=== PATIENT | female | born 1940 | race Caucasian/White ===

== ENCOUNTER 2021-10-05 11:46 | Outpatient (CLI) | payer MEDICARE, OTHER, SELFPAY ==
[2021-10-05 14:45] LABS: Chloride* 102 mmol/L (96-114); Potassium* 4.1 mmol/L (3.6-5.1); Sodium* 133 mmol/L (135-149)
[2021-10-05 14:48] LABS: Blood Urea Nitrogen* 11 mg/dL (7-30); Carbon Dioxide* 27 mmol/L (20-32); Creatinine* 0.7 mg/dL (0.5-1.5); Estimated Glomerular Filt Rate 87.92
[2021-10-05 14:49] LABS: Calcium* 8.8 mg/dL (8.4-10.6); Glucose* 98 mg/dL (60-115)
== END 2021-10-05 11:47 | disposition home or self-care (01) ==
LOC: NFLDREF 11:47
PROVIDERS: PCP Internal Medicine; Visit Provider Internal Medicine
DX: E87.6 Hypokalemia (principal); I95.1 Orthostatic hypotension
CPT/HCPCS: 80048

== ENCOUNTER 2021-10-10 08:20 | Outpatient (CLI) | payer MEDICARE, OTHER, SELFPAY | END 2021-10-10 08:21 | disposition home or self-care (01) | LOC: AMB 10-16 22:04 | PROVIDERS: PCP Internal Medicine; Visit Provider Family Medicine | DX: I95.9 Hypotension, unspecified (principal); R53.1 Weakness | CPT/HCPCS: A0425; A0427 ==

== ENCOUNTER 2021-10-10 08:50 | Observation (INO) | payer MEDICARE, OTHER, SELFPAY ==
[2021-10-10] VITALS (10 sets, daily range): BP systolic 78–141; BP diastolic 49–89; PULSE 71–122; RESP 14–16; TEMP 36.7–36.9; O2SAT 94–98; BMI 17.5; BMI 16.9
--- NOTE | 2021-10-10 09:25 | CRLHL7_ITS ---
For Patients: As a result of the Cures Act, medical imaging exams and procedure reports are released immediately into your electronic medical record. You may view this report before your referring provider. If you have questions, please contact your health care provider. INDICATION: Shortness of breath TECHNIQUE: Chest 2 views COMPARISON: CT 09/01/2021 FINDINGS: Small pleural effusions are present. Mild left lower lobe parenchymal density. Lungs are hyperinflated. Indwelling catheter. No pneumothorax. Mediastinum unchanged. No fracture. IMPRESSION: Small effusions are now present with mild adjacent left lower lobe density likely representing infiltrate. Dictated by Figueroa Grant MD @ 10/10/2021 10:40:40 AM (Electronically Signed)
--- NOTE | 2021-10-10 09:25 | CRLHL7_ITS ---
For Patients: As a result of the Century Cures Act, medical imaging exams and procedure reports are released immediately into your electronic medical record. You may view this report before your referring provider. If you have questions, please contact your health care provider. INDICATION: FALL,HIT RT SIDE OF HEAD COMPARISON: none TECHNIQUE: A CT volumetric acquisition was performed of the brain without IV contrast. Please note that all CT scans at this facility use dose modulation, iterative reconstruction, and/or weight-based dosing when appropriate to reduce radiation dose to as low as reasonably achievable. FINDINGS: No intracranial hemorrhage, mass or mass effect. No hydrocephalus or midline shift. Calcification of the left basal ganglia. Mild chronic white matter changes. No fracture. Sinuses clear. IMPRESSION: No intracranial hemorrhage. Please note that all CT scans at this facility use dose modulation, iterative reconstruction, and/or weight-based dosing when appropriate to reduce radiation dose to as low as reasonably achievable. Dictated by Figueroa Grant MD @ 10/10/2021 10:33:57 AM (Electronically Signed)
--- NOTE | 2021-10-10 09:29 | ED_ITS ---
HPI - General Adult General Chief complaint: Hypotension Stated complaint: Syncope/Falls Time Seen by Provider: 10/10/21 09:03 History of Present Illness HPI narrative: Patient is a 81-year-old female coming in today after falling at home 5 times overnight. Patient states that she has a history of pancreatic cancer and is status post chemo and radiation currently on a break. States that for several weeks she has been battling orthostatic hypotension with significant dizziness upon standing. States that she was hospitalized at the [facility] at the beginning of September for about 5 days where nothing was found to be causing this. She was discharged home on salt tablets and Florinef. She has not had any improvement in her symptoms. Last night it was worse than usual. She states that she usually gets up 4-5 times a night to urinate and each time she got up she fell. She did hit her head 1 time. Before all this happened she states that she did vomit 1 time last evening. She denies any fevers or chills. No urinary symptoms or diarrhea. 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 He tells me that she has been lying on the couch and doing 0 physical activity for approximately 6 months. She currently denies headache, blurry vision or vomiting since falling. No confusion or neurologic deficits. Patient states that over the last year she has lost about 20-25 lb. However, in the last 2 weeks she has gained a couple of lb back as she has been drinking 2-3 ensure shakes per day. Related Data Home Medications Medication Instructions Recorded Confirmed calcitriol 0.25 mcg capsule 0.5 mcg PO DAILY 09/29/21 10/10/21 calcium 325 mg-vit D3 12.5 3 tab PO DAILY 09/29/21 10/10/21 mcg-zinc 2.75 [id number] tablet (Citracal-D3 Maximum Plus) levothyroxine 75 mcg tablet 75 mcg PO DAILY 09/29/21 10/10/21 loperamide 2 mg capsule 2 mg PO PRN 09/29/21 10/10/21 magnesium oxide 400 mg (241.3 mg 1,600 mg PO DAILY 09/29/21 10/10/21 magnesium) tablet nystatin 100,000 unit/mL oral 5 ml PO QID PRN 09/29/21 10/10/21 suspension pantoprazole 40 mg tablet,delayed 40 mg PO DAILY 09/29/21 10/10/21 release Previous Rx's Medication Instructions Recorded fludrocortisone 0.1 mg tablet 0.1 mg PO QDAY #90 tab 10/05/21 potassium chloride 20 mEq 20 meq PO BID #180 tab 10/05/21 tablet,extended release sodium chloride 1 gram tablet 1,000 mg PO TID #90 tab 10/05/21 Allergies Allergy/AdvReac Type Severity Reaction Status Date / Time No Known Drug Allergies Allergy Verified 10/05/21 11:00 Review of Systems Status of ROS: Reports: 10 or more systems reviewed and unremarkable except as noted in History and below [facility] Medical History Autoimmune hypoparathyroidism History of hypertension Pancreatic cancer 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 Alert and oriented. Answers questions appropriately. Mood and affect are appropriate. Thoughts are goal oriented and rational. No tangential or magical thinking noted. Patient speaks in full sentences without needing to catch their breath. HEENT: Normocephalic atraumatic. Pupils are equally round reactive to light. Extraocular muscles are intact. Conjunctivae are moist without any icterus noted, do appear pale. Moist mucous membranes. Teeth intact. Posterior pharynx is normal. Neck is soft without any lymphadenopathy or thyromegaly. No masses are appreciated. Cardiovascular: Heart is regular rate and rhythm S1 and S2 are present without any murmurs. Lungs: Clear to auscultation bilaterally no wheezes rhonchi or rales are appreciated. Patient takes deep breaths without any discomfort. Abdomen: Soft but taunt and mildly protuberant. She has mild diffuse tenderness. She does have normal bowel sounds. Extremities: Bilateral lower extremities are without edema. Normal DP and PT pulses. Skin: Well perfused without any obvious rashes. Const: Vital Signs, click to edit/add: Vital Signs - 24 hr 10/10/21 09:03 10/10/21 10:54 10/10/21 10:57 Temperature 98.4 F Pulse Rate [Left P ulse Oximeter] 122 H 93 Respiratory Rate 14 14 Blood Pressure [Le ft Upper Arm] 112/79 123/89 Blood Pressure [or thostatic lying Le ft Arm] 110/69 Blood Pressure [or thostatic sitting Left Arm] 85/61 L Blood Pressure [or thostatic standing Left Arm] 78/49 L Pulse Oximetry 94 94 10/10/21 11:30 10/10/21 12:00 10/10/21 13:00 Temperature Pulse Rate [Left P ulse Oximeter] 83 102 H 84 Respiratory Rate 14 14 14 Blood Pressure [Le ft Upper Arm] 130/73 141/83 H 127/72 Blood Pressure [or thostatic lying Le ft Arm] Blood Pressure [or thostatic sitting Left Arm] Blood Pressure [or thostatic standing Left Arm] Pulse Oximetry 95 95 98 Course Vital Signs Vital signs: Initial Vital Signs Temperature 98.4 F 10/10/21 09:03 Temperature Source Temporal Artery Scan 10/10/21 09:03 Pulse Rate 122 H 10/10/21 09:03 Respiratory Rate 14 10/10/21 09:03 Blood Pressure 112/79 10/10/21 09:03 Blood Pressure Mean 90 10/10/21 09:03 Blood Pressure Position Sitting 10/10/21 09:03 Pulse Oximetry 94 10/10/21 09:03 Oxygen Delivery Method 10/10/21 09:03 Vital Signs Temperature 98.4 F 10/10/21 09:03 Pulse Rate 122 H 10/10/21 09:03 Respiratory Rate 14 10/10/21 09:03 Blood Pressure 112/79 10/10/21 09:03 Pulse Oximetry 94 10/10/21 09:03 Temperature 98.4 F 10/10/21 09:03 Pulse Rate 84 10/10/21 13:00 Respiratory Rate 14 10/10/21 13:00 Blood Pressure 127/72 10/10/21 13:00 Pulse Oximetry 98 10/10/21 13:00 Medical Decision Making MDM Narrative Medical decision making narrative: 81-year-old female with pancreatic cancer and orthostatic hypotension coming in today after falling 5 times at home yesterday complaining of increasing fatigue, weakness and mild shortness of breath with exertion. Indeed very orthostatic with her systolic blood pressure dropping into the 70s up upon standing. She becomes acutely dizzy and has to sit down right away. Her workup did show that her LFTs doubled in amount in the last week unclear significance. Chest x-ray showed a potential infiltrate however chest CT did not show any evidence of pneumonia and no PE. At this time we discussed that going home would be very unsafe for her, therefore patient will be admitted for management. COVID PCR test came back positive however patient did have a COVID-19 back in June. Therefore we proceeded with an antigen test which was negative. Medical Records Medical records reviewed: Yes I reviewed the patient's medical records Lab Data Lab results reviewed: Yes I reviewed the patient's lab results Lab results narrative: TSH was not able to be completed today as the machine was down. Labs: Lab Results 10/10/21 10/10/21 10/10/21 Range/Units 10:00 10:00 10:00 WBC (4.50-11.00) K/uL RBC (4.00-5.20) m/uL Hgb (12.0-16.0) gm/dL Hct (33.0-51.0) % MCV (80-100) fL MCH (26-34) pg MCHC (32-36) gm/dL RDW Coeff of Andi (11.5-15.5) % Plt Count (140-440) K/uL Neut % (Auto) (42.0-72.0) % Lymph % (Auto) (20-44) % Millard % (Auto) (0.0-11.0) % Eos % (Auto) (0.0-7.0) % Baso % (Auto) (0.0-3.0) % Neut # (Auto) (1.7-7.0) K/uL Lymph # (Auto) (0.90-2.90) K/uL Millard # (Auto) (0.00-0.90) K/UL Eos # (Auto) (0.00-0.50) K/uL Baso # (Auto) (0.00-0.30) K/uL Abs Immat Gran (auto) (0.00-0.30) K/uL ESR 44 H (2-20) mm/hr D-Dimer Quant (PE/DVT) 1.64 H (0.00-0.50) ug/ml Sodium 133 L (135-149) mmol/L Potassium 3.3 L (3.6-5.1) mmol/L Chloride 103 (96-114) mmol/L Carbon Dioxide 28 (20-32) mmol/L BUN 12 (7-30) mg/dL Creatinine 0.6 (0.5-1.5) mg/dL Estimated Creat Clear 34.30 Estimated GFR 91 ml/min Glucose 109 (60-115) mg/dL Lactate (0.5-1.9) mmol/L Calcium 8.6 (8.4-10.6) mg/dL Total Bilirubin 1.7 H (0.1-1.5) mg/dL Direct Bilirubin 1.2 H (0.0-0.5) mg/dL AST 201 H (12-35) U/L ALT 116 H (4-35) U/L Alkaline Phosphatase 1114 H (40-150) U/L Total Protein 5.3 L (6.0-8.3) g/dL Albumin 2.8 L (3.3-5.0) g/dL TSH Urine Color (Yellow) Urine Appearance (Clear) Urine pH (5.0-8.5) Ur Specific [place] (1.000-1.030) Urine Protein (Negative) Urine Glucose (UA) (Negative) Urine Ketones (Negative) Urine Blood (Negative) Urine Nitrite (Negative) Urine Bilirubin (Negative) Urine Urobilinogen (0.2-1.0) Ur Leukocyte Esterase (Negative) Urine RBC (0-2) Urine WBC (0-5) Ur Squamous Epith Cells (None-Few) Amorphous Sediment (None) Urine Bacteria (None) Urine Mucus (None) Ethyl Alcohol < 0.01 L (0.01-0.03) % SARS-CoV-2 (PCR) (Negative) Influenza Type A (PCR) (Negative) Influenza Type B (PCR) (Negative) SARS-CoV-2 Ag (Rapid) (Negative) POC Troponin I (0.01-0.04) ng/ml 10/10/21 10/10/21 10/10/21 Range/Units 10:00 10:12 10:12 WBC 8.99 (4.50-11.00) K/uL RBC 3.11 L (4.00-5.20) m/uL Hgb 10.4 L (12.0-16.0) gm/dL Hct 31.7 L (33.0-51.0) % MCV 102 H (80-100) fL MCH 33 (26-34) pg MCHC 33 (32-36) gm/dL RDW Coeff of Andi 15.2 (11.5-15.5) % Plt Count 220 (140-440) K/uL Neut % (Auto) 91.1 H (42.0-72.0) % Lymph % (Auto) 0.6 L (20-44) % Millard % (Auto) 7.8 (0.0-11.0) % Eos % (Auto) 0.2 (0.0-7.0) % Baso % (Auto) 0.2 (0.0-3.0) % Neut # (Auto) 8.20 H (1.7-7.0) K/uL Lymph # (Auto) 0.10 L (0.90-2.90) K/uL Millard # (Auto) 0.70 (0.00-0.90) K/UL Eos # (Auto) 0.02 (0.00-0.50) K/uL Baso # (Auto) 0.02 (0.00-0.30) K/uL Abs Immat Gran (auto) 0.01 (0.00-0.30) K/uL ESR (2-20) mm/hr D-Dimer Quant (PE/DVT) (0.00-0.50) ug/ml Sodium (135-149) mmol/L Potassium (3.6-5.1) mmol/L Chloride (96-114) mmol/L Carbon Dioxide (20-32) mmol/L BUN (7-30) mg/dL Creatinine (0.5-1.5) mg/dL Estimated Creat Clear Estimated GFR ml/min Glucose (60-115) mg/dL Lactate 1.1 (0.5-1.9) mmol/L Calcium (8.4-10.6) mg/dL Total Bilirubin (0.1-1.5) mg/dL Direct Bilirubin (0.0-0.5) mg/dL AST (12-35) U/L ALT (4-35) U/L Alkaline Phosphatase (40-150) U/L Total Protein (6.0-8.3) g/dL Albumin (3.3-5.0) g/dL TSH Urine Color (Yellow) Urine Appearance (Clear) Urine pH (5.0-8.5) Ur Specific [place] (1.000-1.030) Urine Protein (Negative) Urine Glucose (UA) (Negative) Urine Ketones (Negative) Urine Blood (Negative) Urine Nitrite (Negative) Urine Bilirubin (Negative) Urine Urobilinogen (0.2-1.0) Ur Leukocyte Esterase (Negative) Urine RBC (0-2) Urine WBC (0-5) Ur Squamous Epith Cells (None-Few) Amorphous Sediment (None) Urine Bacteria (None) Urine Mucus (None) Ethyl Alcohol (0.01-0.03) % SARS-CoV-2 (PCR) (Negative) Influenza Type A (PCR) (Negative) Influenza Type B (PCR) (Negative) SARS-CoV-2 Ag (Rapid) (Negative) POC Troponin I 0.00 L (0.01-0.04) ng/ml 10/10/21 10/10/21 10/10/21 Range/Units 10:12 10:55 11:00 WBC (4.50-11.00) K/uL RBC (4.00-5.20) m/uL Hgb (12.0-16.0) gm/dL Hct (33.0-51.0) % MCV (80-100) fL MCH (26-34) pg MCHC (32-36) gm/dL RDW Coeff of Andi (11.5-15.5) % Plt Count (140-440) K/uL Neut % (Auto) (42.0-72.0) % Lymph % (Auto) (20-44) % Millard % (Auto) (0.0-11.0) % Eos % (Auto) (0.0-7.0) % Baso % (Auto) (0.0-3.0) % Neut # (Auto) (1.7-7.0) K/uL Lymph # (Auto) (0.90-2.90) K/uL Millard # (Auto) (0.00-0.90) K/UL Eos # (Auto) (0.00-0.50) K/uL Baso # (Auto) (0.00-0.30) K/uL Abs Immat Gran (auto) (0.00-0.30) K/uL ESR (2-20) mm/hr D-Dimer Quant (PE/DVT) (0.00-0.50) ug/ml Sodium (135-149) mmol/L Potassium (3.6-5.1) mmol/L Chloride (96-114) mmol/L Carbon Dioxide (20-32) mmol/L BUN (7-30) mg/dL Creatinine (0.5-1.5) mg/dL Estimated Creat Clear Estimated GFR ml/min Glucose (60-115) mg/dL Lactate (0.5-1.9) mmol/L Calcium (8.4-10.6) mg/dL Total Bilirubin (0.1-1.5) mg/dL Direct Bilirubin (0.0-0.5) mg/dL AST (12-35) U/L ALT (4-35) U/L Alkaline Phosphatase (40-150) U/L Total Protein (6.0-8.3) g/dL Albumin (3.3-5.0) g/dL TSH Cancelled Urine Color Yellow (Yellow) Urine Appearance Clear (Clear) Urine pH 8.5 (5.0-8.5) Ur Specific [place] 1.015 (1.000-1.030) Urine Protein Negative (Negative) Urine Glucose (UA) Negative (Negative) Urine Ketones Negative (Negative) Urine Blood Negative (Negative) Urine Nitrite Negative (Negative) Urine Bilirubin Negative (Negative) Urine Urobilinogen 0.2 (0.2-1.0) Ur Leukocyte Esterase Negative (Negative) Urine RBC 0-2 (0-2) Urine WBC 0-2 (0-5) Ur Squamous Epith Cells Few (None-Few) Amorphous Sediment Few A (None) Urine Bacteria None (None) Urine Mucus (None) Ethyl Alcohol (0.01-0.03) % SARS-CoV-2 (PCR) POSITIVE SARS-CoV-2 A (Negative) Influenza Type A (PCR) Negative PCR FLU A (Negative) Influenza Type B (PCR) Negative PCR FLU B (Negative) SARS-CoV-2 Ag (Rapid) (Negative) POC Troponin I (0.01-0.04) ng/ml 10/10/21 Range/Units 12:37 WBC (4.50-11.00) K/uL RBC (4.00-5.20) m/uL Hgb (12.0-16.0) gm/dL Hct (33.0-51.0) % MCV (80-100) fL MCH (26-34) pg MCHC (32-36) gm/dL RDW Coeff of Andi (11.5-15.5) % Plt Count (140-440) K/uL Neut % (Auto) (42.0-72.0) % Lymph % (Auto) (20-44) % Millard % (Auto) (0.0-11.0) % Eos % (Auto) (0.0-7.0) % Baso % (Auto) (0.0-3.0) % Neut # (Auto) (1.7-7.0) K/uL Lymph # (Auto) (0.90-2.90) K/uL Millard # (Auto) (0.00-0.90) K/UL Eos # (Auto) (0.00-0.50) K/uL Baso # (Auto) (0.00-0.30) K/uL Abs Immat Gran (auto) (0.00-0.30) K/uL ESR (2-20) mm/hr D-Dimer Quant (PE/DVT) (0.00-0.50) ug/ml Sodium (135-149) mmol/L Potassium (3.6-5.1) mmol/L Chloride (96-114) mmol/L Carbon Dioxide (20-32) mmol/L BUN (7-30) mg/dL Creatinine (0.5-1.5) mg/dL Estimated Creat Clear Estimated GFR ml/min Glucose (60-115) mg/dL Lactate (0.5-1.9) mmol/L Calcium (8.4-10.6) mg/dL Total Bilirubin (0.1-1.5) mg/dL Direct Bilirubin (0.0-0.5) mg/dL AST (12-35) U/L ALT (4-35) U/L Alkaline Phosphatase (40-150) U/L Total Protein (6.0-8.3) g/dL Albumin (3.3-5.0) g/dL TSH Urine Color (Yellow) Urine Appearance (Clear) Urine pH (5.0-8.5) Ur Specific [place] (1.000-1.030) Urine Protein (Negative) Urine Glucose (UA) (Negative) Urine Ketones (Negative) Urine Blood (Negative) Urine Nitrite (Negative) Urine Bilirubin (Negative) Urine Urobilinogen (0.2-1.0) Ur Leukocyte Esterase (Negative) Urine RBC (0-2) Urine WBC (0-5) Ur Squamous Epith Cells (None-Few) Amorphous Sediment (None) Urine Bacteria (None) Urine Mucus (None) Ethyl Alcohol (0.01-0.03) % SARS-CoV-2 (PCR) (Negative) Influenza Type A (PCR) (Negative) Influenza Type B (PCR) (Negative) SARS-CoV-2 Ag (Rapid) negative (Negative) POC Troponin I (0.01-0.04) ng/ml Imaging Data CT scan - head: Attestation: I have reviewed the pertinent imaging results. My impression: Normal scan Radiologist's impression: FINDINGS: No intracranial hemorrhage, mass or mass effect. No hydrocephalus or midline shift. Calcification of the left basal ganglia. Mild chronic white matter changes. No fracture. Sinuses clear. IMPRESSION: No intracranial hemorrhage. Chest x-ray: Attestation: I have reviewed the pertinent imaging results. My impression: Small bilateral pleural effusions with a right-sided infiltrate. Radiologist's impression: FINDINGS: Small pleural effusions are present. Mild left lower lobe parenchymal density. Lungs are hyperinflated. Indwelling catheter. No pneumothorax. Mediastinum unchanged. No fracture. IMPRESSION: Small effusions are now present with mild adjacent left lower lobe density likely representing infiltrate. CT scan - chest: Attestation: I have reviewed the pertinent imaging results. Radiologist's impression: FINDINGS: There is no acute pulmonary embolism. No thoracic aortic aneurysm. Right-sided Port-A-Cath with catheter terminating at the atrial-caval junction. Small amount pericardial fluid appears slightly increased from the prior examination. - No interval enlarged mediastinal or hilar lymph nodes. No axillary adenopathy. - New small right and trace left-sided pleural effusions. Mild atelectasis within the lower lobes. There is no pneumothorax. 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 - Evaluation of the upper abdomen demonstrates pneumobilia which may relate to the patient`s stent. There is a small amount of upper abdominal ascites. Left renal cyst. - Degenerative changes of the spine. No acute fractures. IMPRESSION: 1. No acute pulmonary embolism. 2. New small right and trace left-sided pleural effusions. 3. Areas of increased atelectasis within the lungs. 4. Small pericardial effusion, mildly increased. 5. Small amount of upper abdominal ascites. Pneumobilia is present and may relate to a biliary stent. 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
[2021-10-10 10:15] LABS: Lactate* 1.1 mmol/L (0.5-1.9)
[2021-10-10 10:37] LABS: Albumin* 2.8 g/dL (3.3-5.0)
[2021-10-10 10:38] LABS: Chloride* 103 mmol/L (96-114); Potassium* 3.3 mmol/L (3.6-5.1); Sodium* 133 mmol/L (135-149)
[2021-10-10 10:40] LABS: Aspartate Amino Transferase* 201 U/L (12-35); Bilirubin Direct* 1.2 mg/dL (0.0-0.5); Bilirubin Total* 1.7 mg/dL (0.1-1.5); Blood Urea Nitrogen* 12 mg/dL (7-30); Carbon Dioxide* 28 mmol/L (20-32); Creatinine* 0.6 mg/dL (0.5-1.5); Estimated Glomerular Filt Rate 91 ml/min; Total Protein* 5.3 g/dL (6.0-8.3)
[2021-10-10 10:41] LABS: Alanine Aminotransferase* 116 U/L (4-35); Alkaline Phosphatase* 1114 U/L (40-150); Calcium* 8.6 mg/dL (8.4-10.6); Glucose* 109 mg/dL (60-115)
[2021-10-10 10:43] LABS: D Dimer Quantitative* 1.64 ug/ml (0.00-0.50); Ethanol* < 0.01 % (0.01-0.03)
--- NOTE | 2021-10-10 10:48 | CRLHL7_ITS ---
For Patients: As a result of the Century Cures Act, medical imaging exams and procedure reports are released immediately into your electronic medical record. You may view this report before your referring provider. If you have questions, please contact your health care provider. HISTORY: Shortness of breath. TECHNIQUE: Intravenous contrast enhanced CT of the chest. 95 mL Isovue-370 intravenous contrast administered. COMPARISON: 09/01/2021. FINDINGS: There is no acute pulmonary embolism. No thoracic aortic aneurysm. Right-sided Port-A-Cath with catheter terminating at the atrial-caval junction. Small amount pericardial fluid appears slightly increased from the prior examination. - No interval enlarged mediastinal or hilar lymph nodes. No axillary adenopathy. - New small right and trace left-sided pleural effusions. Mild atelectasis within the lower lobes. There is no pneumothorax. 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 - Evaluation of the upper abdomen demonstrates pneumobilia which may relate to the patient`s stent. There is a small amount of upper abdominal ascites. Left renal cyst. - Degenerative changes of the spine. No acute fractures. IMPRESSION: 1. No acute pulmonary embolism. 2. New small right and trace left-sided pleural effusions. 3. Areas of increased atelectasis within the lungs. 4. Small pericardial effusion, mildly increased. 5. Small amount of upper abdominal ascites. Pneumobilia is present and may relate to a biliary stent. Dictated by Shivam Ingram MD @ 10/10/2021 11:45:17 AM Please note that all CT scans at this facility use dose modulation, iterative reconstruction, and/or weight-based dosing when appropriate to reduce radiation dose to as low as reasonably achievable. Dictated by: Shivam Ingram MD @ 10/10/2021 11:45:25 (Electronically Signed)
[2021-10-10 10:52] LABS: Erythrocyte SedimentationRate* 44 mm/hr (2-20)
[2021-10-10 10:59] LABS: Appearance Urine Clear (Clear); Bilirubin Urine Negative (Negative); Blood Urine Negative (Negative); Color Urine Yellow (Yellow); Glucose Urine Negative (Negative); Ketones Urine Negative (Negative); Leukocyte Esterase Urine Negative (Negative); Nitrite Urine Negative (Negative); Protein Urine Negative (Negative); Specific Gravity Urine 1.015 (1.000-1.030); Urobilinogen Urine 0.2 (0.2-1.0); pH Urine 8.5 (5.0-8.5)
[2021-10-10 11:10] LABS: Amorphous Sediment Urine Few; RBC Urine 0-2 (0-2); Squamous Epithelial Cell Urine Few (None-Few); WBC Urine 0-2 (0-5)
[2021-10-10 11:16] LABS: Basophils Absolute Auto 0.02 K/uL (0.00-0.30); Basophils Percent Auto 0.2 % (0.0-3.0); Eosinophils Absolute Auto 0.02 K/uL (0.00-0.50); Eosinophils Percent Auto 0.2 % (0.0-7.0); Hematocrit 31.7 % (33.0-51.0); Hemoglobin* 10.4 gm/dL (12.0-16.0); Immature Granulocytes Abs Auto 0.01 K/uL (0.00-0.30); Lymphocytes Percent Auto 0.6 % (20-44); Mean Corpuscular HGB Conc 33 gm/dL (32-36); Mean Corpuscular Hemoglobin 33 pg (26-34); Mean Corpuscular Volume 102 fL (80-100); Monocytes Percent Auto 7.8 % (0.0-11.0); Neutrophils Percent Auto 91.1 % (42.0-72.0); Platelet Count* 220 K/uL (140-440); RDW Coefficient of Variation % 15.2 % (11.5-15.5); Red Blood Count 3.11 m/uL (4.00-5.20); White Blood Count* 8.99 K/uL (4.50-11.00)
[2021-10-10 11:22] LABS: Slide Review Reflex No
[2021-10-10 11:53] LABS: PCR FLU A Negative PCR FLU A (Negative); PCR FLU B Negative PCR FLU B (Negative)
[2021-10-10 11:54] LABS: SARS PCR* POSITIVE SARS-CoV-2 (Negative)
--- NOTE | 2021-10-10 13:08 | W.PC.EDHO ---
Primary Language: Tamazight Preferred Language: Tamazight Orientation Status: x Alert & Oriented [] Slight Confusion [] Known Dx Dementia Transfers By: [x] Assist of 1 [] Assist of 2 [] Lift Description of Symptoms ED Triage Present Problem History of orthostatic hypotension and has fallen Description 5 times since last night. She slid off the bed last night and hit her head. Denies being knocked out. ED Triage Date of Onset of 10/10/21 Symptoms Female History Patient Oxygen Administration Pulse Oximetry 95 Pulse Oximetry 95 Pulse Oximetry 94 Pulse Oximetry 94 Oxygen Delivery Method Room Air Oxygen Delivery Method Room Air Oxygen Delivery Method Room Air Oxygen Delivery Method Room Air Cardiac Monitoring EKG Method Bedside
--- NOTE | 2021-10-10 13:08 | W.PC.EDHO ---
Primary Language: Preferred Language: Orientation Status: [] Alert & Oriented [] Slight Confusion [] Known Dx Dementia Transfers By: [] Assist of 1 [] Assist of 2 [] Lift Description of Symptoms ED Triage Present Problem History of orthostatic hypotension and has fallen Description 5 times since last night. She slid off the bed last night and hit her head. Denies being knocked out. ED Triage Date of Onset of 10/10/21 Symptoms Female History Patient Oxygen Administration Pulse Oximetry 95 Pulse Oximetry 95 Pulse Oximetry 94 Pulse Oximetry 94 Oxygen Delivery Method Room Air Oxygen Delivery Method Room Air Oxygen Delivery Method Room Air Oxygen Delivery Method Room Air Cardiac Monitoring EKG Method Bedside
[2021-10-10 13:15] LABS: SARS Antigen* negative (Negative)
--- NOTE | 2021-10-10 16:15 | P.IMHP_ITS ---
Hospitalist- H&P: HPI History of Present Illness Time Seen by Provider: 16:00 Date Seen: 10/10/21 Chief complaint: Syncope/Falls Narrative: Azeb العراقي is a 81 year old woman. 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 First diagnosed late 2019 to early 2020. 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 In April of 2021 she completed cycle number 22 of FOLFIRINOX. On 08/13/2021 she completed her course of combine radiation therapy along with oral capecitabine. Historically she had used Creon therapy but since she stop that she has not had diarrhea. Over the past few weeks her weight has been stable around 105 lb. Lowest weight was 100 lb. Historically has had difficulties managing abdominal pain. She received a celiac plexus block on 09/20/2021 at [place], [place]. Pain substantially improved since then. Unfortunately since the celiac plexus block, she has had severe symptomatic orthostatic hypotension. Now receiving sodium chloride 1 g tab 3 times daily, fludrocortisone 0.1 mg daily, and prescription knee-high compression stockings bilaterally to help this. In fact she was admitted to [place], [place], due to post procedure lightheadedness and hypotension. She tells me she has not recovered since that time. Ordinarily has nocturia times 4-5 times per night. Last night she had 5 falls in association with trying to get up to go to the bathroom. Believes she might of struck her head on 1 of those occasions. Has no focal motor neurologic deficits. Had no loss of consciousness. was able to help her. Eventually came into the emergency department for further assessment. Still quite orthostatic on assessment. The decision was made to admit her for observation and consider additional measures including up titration of her current medication regimen and consideration of other supportive efforts. Denies fever, rigors, diaphoresis. Appetite is generally not well. Nevertheless she strives to eat. This is not new. Weight was as low as 100 lb. Since she has been on nutritional supplement twice daily her weight is stabilized around 105 lb over the last couple of weeks. Had her 2nd bout of COVID in June of this year. Had a previous infection with COVID. Has received 3 doses of the Agrican COVID vaccine, 05/30/2020, 06/20/2020, 11/13/2020. Has not had any nausea vomiting. Has not had any blood loss of any sort. No other trauma or injury. Has longstanding urinary urgency. Denies hematuria, dysuria. Denies diarrhea. Has daily bowel movements. Again abdominal pain is much better controlled since the celiac plexus block she received on 09/20/2021. Spends much of her day in on the couch. Will to do much due to her orthostatic hypotension. She notes it is worse when she stands and attempts to walk. She states this not so bad if she simply sits. Denies chest heaviness, pressure, tightness. Denies dyspnea at rest or dyspnea with exertion. Denies cough. No palpitations. Denies focal motor neurologic deficits. Taking her medications as prescribed except for today. Review of Systems Status of ROS: Reports: 10 or more systems reviewed and unremarkable except as noted in History and below Narrative: See HPI above. 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) Surgical History History of appendectomy (10/22/09) History of dilation and curettage (10/22/09) Family History Mother Colon cancer Maternal Grandmother Colon cancer Social History Smoking Status: Never smoker How often do you have a drink containing alcohol: monthly or less How many standard drinks containing alcohol do you have on a typical day: 1 or 2 How often do you have six or more drinks on one occasion: Less than monthly AUDIT-C Alcohol total score: 2 Non-prescribed substance use: denies use Caffeine: No service: No Meds Home Medications and Allergies Home Medications Medication Instructions Recorded Confirmed Type calcitriol 0.25 mcg capsule 0.5 mcg PO DAILY 09/29/21 10/10/21 History calcium 325 mg-vit D3 12.5 3 tab PO DAILY 09/29/21 10/10/21 History mcg-zinc 2.75 [id number] tablet (Citracal-D3 Maximum Plus) levothyroxine 75 mcg tablet 75 mcg PO DAILY 09/29/21 10/10/21 History loperamide 2 mg capsule 2 mg PO PRN 09/29/21 10/10/21 History magnesium oxide 400 mg (241.3 mg 1,600 mg PO DAILY 09/29/21 10/10/21 History magnesium) tablet nystatin 100,000 unit/mL oral 5 ml PO QID PRN 09/29/21 10/10/21 History suspension pantoprazole 40 mg tablet,delayed 40 mg PO DAILY 09/29/21 10/10/21 History release Allergies Allergy/AdvReac Type Severity Reaction Status Date / Time No Known Drug Allergies Allergy Verified 10/05/21 11:00 Exam Narrative: Exam Narrative: Patient is in no acute distress. She is laying with head of bed elevated about 30?. Alert, oriented to self, place, time, situation. Articulate, cooperative, friendly. Gracious. Appears thin and frail. Mood and affect are congruent. Skin is dry and intact. Bilateral upper and lower extremities are thin, without much muscle mass. Lungs are clear to auscultation. No wheezing, rhonchi, or rales. Chest wall excursions are full. No CVA tenderness. Subcutaneous IV port right upper chest, no fluctuance, discharge, erythema. Heart tones with regular rhythm, normal S1-S2, without murmur, gallop, or rub. PMI is not laterally displaced. Abdomen with active bowel sounds, soft, nontender. Thin. No edema of upper lower extremities. Palpable pulses bilateral upper and lower extremities. Capillary refill less than 3 seconds in upper and lower extremities. No focal motor neurologic deficits. Const: Vital Signs, click to edit/add: Vital Signs - 24 hr 10/10/21 09:03 10/10/21 10:54 10/10/21 10:57 Temperature 98.4 F Pulse Rate [Left P ulse Oximeter] 122 H 93 Respiratory Rate 14 14 Blood Pressure [Le ft Upper Arm] 112/79 123/89 Blood Pressure [or thostatic lying Le ft Arm] 110/69 Blood Pressure [or thostatic sitting Left Arm] 85/61 L Blood Pressure [or thostatic standing Left Arm] 78/49 L Pulse Oximetry 94 94 10/10/21 11:30 10/10/21 12:00 10/10/21 13:00 Temperature Pulse Rate [Left P ulse Oximeter] 83 102 H 84 Respiratory Rate 14 14 14 Blood Pressure [Le ft Upper Arm] 130/73 141/83 H 127/72 Blood Pressure [or thostatic lying Le ft Arm] Blood Pressure [or thostatic sitting Left Arm] Blood Pressure [or thostatic standing Left Arm] Pulse Oximetry 95 95 98 Documenting provider has reviewed patient's vital signs: yes Hospitalist - H&P: Result Labs Labs: Short CBC 10/10/21 Range/Units 10:00 WBC 8.99 (4.50-11.00) K/uL Hgb 10.4 L (12.0-16.0) gm/dL Hct 31.7 L (33.0-51.0) % Plt Count 220 (140-440) K/uL BMP 10/10/21 10:00 Sodium 133 L Potassium 3.3 L Chloride 103 Carbon Dioxide 28 BUN 12 Creatinine 0.6 Glucose 109 Calcium 8.6 Liver Function 10/10/21 Range/Units 10:00 Total Bilirubin 1.7 H (0.1-1.5) mg/dL Direct Bilirubin 1.2 H (0.0-0.5) mg/dL AST 201 H (12-35) U/L ALT 116 H (4-35) U/L Alkaline Phosphatase 1114 H (40-150) U/L Albumin 2.8 L (3.3-5.0) g/dL Urine 10/10/21 Range/Units 10:55 Urine Color Yellow (Yellow) Urine Appearance Clear (Clear) Urine pH 8.5 (5.0-8.5) Ur Specific [place] 1.015 (1.000-1.030) Urine Protein Negative (Negative) Urine Glucose (UA) Negative (Negative) Imaging CT scan - chest: Attestation: I have reviewed the pertinent imaging results. Radiologist's impression: 1. No acute pulmonary embolism. 2. New small right and trace left-sided pleural effusions. 3. Areas of increased atelectasis within the lungs. 4. Small pericardial effusion, mildly increased. 5. Small amount of upper abdominal ascites. Pneumobilia is present and may relate to a biliary stent. CT scan - head: Attestation: I have reviewed the pertinent imaging results. Radiologist's impression: No acute findings. Chest x-ray: Attestation: I have reviewed the pertinent imaging results. Radiologist's impression: Small effusions are now present with mild adjacent left lower lobe density likely representing infiltrate. Note that the CT scan of the chest did not corroborate this postulation. 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 (2) Orthostatic hypotension: Problem comment: Dxed at [facility] 10/15 (they started Florinef and salt tablets) Status: Acute Assessment and Plan: Started on sodium chloride 1 g 3 times daily plus fludrocortisone 0.1 mg daily latter part of August 2021. Also uses knee-high compression stockings during the day and remove them at night. Admit to observation. Increased dose of sodium chloride to 4 times daily. Increased dose of the fludrocortisone to 0.2 mg once daily. Come up with a schedule that allows her to utilize her compression stockings at night when she is most vulnerable to falling. (3) Hypothyroidism: Problem comment: on treatment Status: Acute Assessment and Plan: Continue supportive efforts. (4) Hypokalemia: Status: Acute Assessment and Plan: Increase potassium supplementation and monitor serum potassium levels. (5) Adenomatous colon polyp: Problem comment: tubular adenoma x2 removed at colonoscopy 12/11, due again 5Y Status: Acute (6) Autoimmune hypoparathyroidism: Problem comment: Dxed by endocrinology (Dr. Misbah Peralta) 04/16 after profound from magnesemia and hypocalcemia diagnosed 12/14, now on magnesium and calcium supplementation (followed Dr. Armas, endocrinology) Status: Acute Assessment and Plan: Continue with current supportive efforts. (7) Osteopenia: Problem comment: by DEXA 12/03, 11/04, improved by DEXA 12/08, taking 3Y drug holiday from a lendronate starting 11/08, stable DEXA 01/09, stable 01/11 (and remaining off alendronate) Status: Acute Assessment and Plan: Discussed with patient her increased risk for fractures due to her increased risk for falls. Work with physical occupational therapy to minimize her risk for falls. Continue supportive efforts for her hypoparathyroidism. (8) Weight loss, abnormal: Status: Acute Assessment and Plan: Continue with nutritional supplements twice daily for now. Dietary consultation. At increased risk for pressure ulcers. Will work with physical and occupational therapy to obtain recommendations for offloading cushion for chair as well as offloading cushion for her bed. (9) At risk for falling: Status: Acute Assessment and Plan: Work with Physical therapy and Occupational therapy. Consider use of compression stockings during the night when she is most vulnerable to fall. Consider use of bedside commode at night. Plan Answered patient's questions are satisfaction. Patient requests DNR DNI resuscitation status in the event of cardiopulmonary demise. Patient designates her , Will, as her power of workers compensation attorney for health should that be required.
[2021-10-10] MEDS: POTASSIUM CHLORIDE 10 MEQ CAPSULE ER 40 MEQ PO (17:18)
[2021-10-10] MEDS: SODIUM CHLORIDE 1 GM TABLET PO ×2 (17:19→20:36)
[2021-10-10] MEDS: ACETAMINOPHEN 325 MG TABLET PO (20:48)
[2021-10-11 03:00] VITALS: BP 167/88; PULSE 77; RESP 16; TEMP 36.8; O2SAT 100
--- NOTE | 2021-10-11 06:03 | PC.NURSE ---
[id number] Pt pleasant and cooperative, c/o R hip pain when laying on it, due to fall at home previous to going to hospital, relief with prn tylenol. tolerates pivot transfer to bsc with very close SBA, stated lightheaded/dizziness present but not too bad. slept well during night, calls appropriately to use br.
[2021-10-11] MEDS: LEVOTHYROXINE 75 MCG TABLET PO (06:14)
[2021-10-11] MEDS: OMEPRAZOLE 20 MG CAPSULE DR 40 MG PO (06:14)
[2021-10-11] MEDS: HEPARIN 500 UNIT/5 ML SYRINGE IVF ×2 (06:41→10:39)
[2021-10-11 06:49] LABS: Albumin* 2.6 g/dL (3.3-5.0); Chloride* 103 mmol/L (96-114)
[2021-10-11 06:50] LABS: Potassium* 3.8 mmol/L (3.6-5.1); Sodium* 133 mmol/L (135-149)
[2021-10-11 06:52] LABS: Alkaline Phosphatase* 840 U/L (40-150); Aspartate Amino Transferase* 128 U/L (12-35); Bilirubin Direct* 1.1 mg/dL (0.0-0.5); Bilirubin Total* 1.3 mg/dL (0.1-1.5); Blood Urea Nitrogen* 14 mg/dL (7-30); Carbon Dioxide* 29 mmol/L (20-32); Creatinine* 0.6 mg/dL (0.5-1.5); Estimated Glomerular Filt Rate 91 ml/min; Total Protein* 5.2 g/dL (6.0-8.3)
[2021-10-11 06:53] LABS: Alanine Aminotransferase* 97 U/L (4-35); Calcium* 8.4 mg/dL (8.4-10.6); Glucose* 137 mg/dL (60-115); Phosphorus* 3.4 mg/dL (2.5-4.5)
[2021-10-11 06:56] LABS: Hemoglobin* 8.9 gm/dL (12.0-16.0)
[2021-10-11] MEDS: POTASSIUM CHLORIDE 10 MEQ CAPSULE ER 40 MEQ PO (07:50)
[2021-10-11] MEDS: SODIUM CHLORIDE 1 GM TABLET PO (07:51)
[2021-10-11 08:02] VITALS: PULSE 77
--- NOTE | 2021-10-11 08:52 | P.DS_ITS ---
DS: Providers Provider Time Seen by Provider: 08:52 Date Seen: 10/11/21 Date of admission: 10/10/21 13:13 Primary care physician: Priscila Kelley MD Admitting Clinician: Erinn Martinez MD Consults: 10/10/21 15:56 Consult to Nutrition [CONS] Routine Comment: Reason for consult:: Weight Loss Consult to Physical Therapy [CONS] Routine Comment: Reason(s) for PT Consult:: Evaluate and Treat Any Restrictions?:: See Comment Comment: severe orthostatic hypotension; thin/frail and at increased risk for pressure ulcers 10/10/21 15:59 Consult to Occupational Therapy [CONS] Routine Comment: Reason(s) for OT Consult:: Evaluate and Treat Any Restrictions?:: No Restrictions Comment: severe orthostatic hypotension; thin/frail and at increased risk for pressure ulcers 10/10/21 16:01 Consult to Tack Cutter [CONS] Routine Comment: Reason for Consult:: Discharge Planning Needs Attending Physician on discharge: Erinn Martinez MD Date of Discharge: 10/11/21 DS: Diagnosis Discharge Diagnosis (1) Carcinoma of pancreas metastatic to intra-abdominal lymph node: Status: Acute Problem details: Dxed 2019, followed by oncology (2) Orthostatic hypotension: Status: Acute Problem details: Dxed at [facility] 10/15 (they started Florinef and salt tablets) (3) Hypothyroidism: Status: Acute Problem details: on treatment (4) Hypokalemia: Status: Acute (5) Adenomatous colon polyp: Status: Acute Problem details: tubular adenoma x2 removed at colonoscopy 12/11, due again 5Y (6) Autoimmune hypoparathyroidism: Status: Acute Problem details: Dxed by endocrinology (Dr. Misbah Peralta) 04/16 after profound from magnesemia and hypocalcemia diagnosed 12/14, now on magnesium and calcium supplementation (followed Dr. Armas, endocrinology) (7) Osteopenia: Status: Acute Problem details: by DEXA 12/03, 11/04, improved by DEXA 12/08, taking 3Y drug holiday from alendronate starting 11/08, stable DEXA 01/09, stable 01/11 (and remaining off alendronate) (8) Weight loss, abnormal: Status: Acute (9) At risk for falling: Status: Acute DS: Summary Hospital Course Hospital Course: Patient is a 81-year-old woman who has been suffering orthostatic hypotension with presyncope home. She was admitted to the hospital with largely unremarkable workup. We did observe her overnight and have her see physical therapy. Patient required no further intervention. She was seen by Nutrition therapy as well and has gained some weight since being seen as an outpatient. This time patient is ready for discharge home on the medications as listed. She will follow-up with her primary physician as needed. She will continue her outpatient care. Status at Discharge Functional status at discharge: independent ambulation Overall status at discharge: patient is back to baseline Time Spent with Patient Time attestation: Total time spent providing and/or coordinating discharge services: Time spent: Greater than 30 minutes Exam Narrative: Exam Narrative: EXAM GENERAL: Patient appears comfortable and well. EYES: No scleral icterus. LYMPH: No supraclavicular or cervical lymphadenopathy. SKIN: Visible skin seen during exam normal or with benign process only. EXT: No dependent lower extremity pedal edema. HEART: Regular rate and rhythm with no murmurs, rubs, or gallops. LUNGS: Clear to auscultation bilaterally with no crackles or wheezes. ABD: Soft, non tender, non distended. PSYCH: Good eye contact, speech is not pressured. Const: Vital Signs, click to edit/add: Vital Signs - 24 hr 10/10/21 09:03 10/10/21 10:54 10/10/21 10:57 Temperature 98.4 F Pulse Rate [Left P ulse Oximeter] 122 H 93 Pulse Rate [orthos tatic lying Pulse Oximeter] Pulse Rate [orthos tatic sitting Puls e Oximeter] Pulse Rate [orthos tatic standing Pul se Oximeter] Respiratory Rate 14 14 Blood Pressure [Le ft Arm] Blood Pressure [Le ft Upper Arm] 112/79 123/89 Blood Pressure [or thostatic lying Le ft Arm] 110/69 Blood Pressure [or thostatic sitting Left Arm] 85/61 L Blood Pressure [or thostatic standing Left Arm] 78/49 L Pulse Oximetry 94 94 10/10/21 11:30 10/10/21 12:00 10/10/21 13:00 Temperature Pulse Rate [Left P ulse Oximeter] 83 102 H 84 Pulse Rate [orthos tatic lying Pulse Oximeter] Pulse Rate [orthos tatic sitting Puls e Oximeter] Pulse Rate [orthos tatic standing Pul se Oximeter] Respiratory Rate 14 14 14 Blood Pressure [Le ft Arm] Blood Pressure [Le ft Upper Arm] 130/73 141/83 H 127/72 Blood Pressure [or thostatic lying Le ft Arm] Blood Pressure [or thostatic sitting Left Arm] Blood Pressure [or thostatic standing Left Arm] Pulse Oximetry 95 95 98 10/10/21 15:58 10/10/21 19:45 10/10/21 20:30 Temperature 98.2 F 98.1 F Pulse Rate [Left P ulse Oximeter] 78 Pulse Rate [orthos tatic lying Pulse Oximeter] 77 Pulse Rate [orthos tatic sitting Puls e Oximeter] 92 Pulse Rate [orthos tatic standing Pul se Oximeter] 92 Respiratory Rate 16 16 Blood Pressure [Le ft Arm] 140/70 H 132/71 Blood Pressure [Le ft Upper Arm] Blood Pressure [or thostatic lying Le ft Arm] 132/70 Blood Pressure [or thostatic sitting Left Arm] 125/73 Blood Pressure [or thostatic standing Left Arm] 92/64 Pulse Oximetry 96 10/10/21 23:21 10/11/21 03:00 10/11/21 08:02 Temperature 98.1 F 98.2 F Pulse Rate [Left P ulse Oximeter] 71 77 77 Pulse Rate [orthos tatic lying Pulse Oximeter] Pulse Rate [orthos tatic sitting Puls e Oximeter] Pulse Rate [orthos tatic standing Pul se Oximeter] Respiratory Rate 16 16 Blood Pressure [Le ft Arm] 129/74 167/88 H Blood Pressure [Le ft Upper Arm] Blood Pressure [or thostatic lying Le ft Arm] Blood Pressure [or thostatic sitting Left Arm] Blood Pressure [or thostatic standing Left Arm] Pulse Oximetry 97 100 DS: Data Data Completed and Pending Labs on day of discharge: Labs from last 24 hours 10/11/21 10/11/21 10/11/21 06:00 06:00 06:00 WBC RBC Hgb 8.9 L Hct MCV MCH MCHC RDW Coeff of Andi Plt Count Neut % (Auto) Lymph % (Auto) [place] % (Auto) Eos % (Auto) Baso % (Auto) Neut # (Auto) Lymph # (Auto) [place] # (Auto) Eos # (Auto) Baso # (Auto) Abs Immat Gran (auto) ESR D-Dimer Quant (PE/DVT) Sodium 133 L Potassium 3.8 Chloride 103 Carbon Dioxide 29 BUN 14 Creatinine 0.6 Estimated Creat Clear 34.30 Estimated GFR 91 Glucose 137 H Lactate Calcium 8.4 Phosphorus 3.4 Magnesium 2.0 Total Bilirubin 1.3 Direct Bilirubin 1.1 H AST 128 H ALT 97 H Alkaline Phosphatase 840 H NT-Pro-B Natriuret Pep Pending Total Protein 5.2 L Albumin 2.6 L TSH Pending Urine Color Urine Appearance Urine pH Ur Specific [place] Urine Protein Urine Glucose (UA) Urine Ketones Urine Blood Urine Nitrite Urine Bilirubin Urine Urobilinogen Ur Leukocyte Esterase Urine RBC Urine WBC Ur Squamous Epith Cells Amorphous Sediment Urine Bacteria Urine Mucus Ethyl Alcohol SARS-CoV-2 (PCR) Influenza Type A (PCR) Influenza Type B (PCR) SARS-CoV-2 Ag (Rapid) POC Troponin I 10/10/21 10/10/21 10/10/21 12:37 11:00 10:55 WBC RBC Hgb Hct MCV MCH MCHC RDW Coeff of Andi Plt Count Neut % (Auto) Lymph % (Auto) [place] % (Auto) Eos % (Auto) Baso % (Auto) Neut # (Auto) Lymph # (Auto) [place] # (Auto) Eos # (Auto) Baso # (Auto) Abs Immat Gran (auto) ESR D-Dimer Quant (PE/DVT) Sodium Potassium Chloride Carbon Dioxide BUN Creatinine Estimated Creat Clear Estimated GFR Glucose Lactate Calcium Phosphorus Magnesium Total Bilirubin Direct Bilirubin AST ALT Alkaline Phosphatase NT-Pro-B Natriuret Pep Total Protein Albumin TSH Urine Color Yellow Urine Appearance Clear Urine pH 8.5 Ur Specific [place] 1.015 Urine Protein Negative Urine Glucose (UA) Negative Urine Ketones Negative Urine Blood Negative Urine Nitrite Negative Urine Bilirubin Negative Urine Urobilinogen 0.2 Ur Leukocyte Esterase Negative Urine RBC 0-2 Urine WBC 0-2 Ur Squamous Epith Cells Few Amorphous Sediment Few A Urine Bacteria None Urine Mucus Ethyl Alcohol SARS-CoV-2 (PCR) POSITIVE SARS-CoV-2 A Influenza Type A (PCR) Negative PCR FLU A Influenza Type B (PCR) Negative PCR FLU B SARS-CoV-2 Ag (Rapid) negative POC Troponin I 10/10/21 10/10/21 10/10/21 10:12 10:12 10:12 WBC RBC Hgb Hct MCV MCH MCHC RDW Coeff of Andi Plt Count Neut % (Auto) Lymph % (Auto) [place] % (Auto) Eos % (Auto) Baso % (Auto) Neut # (Auto) Lymph # (Auto) [place] # (Auto) Eos # (Auto) Baso # (Auto) Abs Immat Gran (auto) ESR D-Dimer Quant (PE/DVT) Sodium Potassium Chloride Carbon Dioxide BUN Creatinine Estimated Creat Clear Estimated GFR Glucose Lactate 1.1 Calcium Phosphorus Magnesium Total Bilirubin Direct Bilirubin AST ALT Alkaline Phosphatase NT-Pro-B Natriuret Pep Total Protein Albumin TSH Cancelled Urine Color Urine Appearance Urine pH Ur Specific [place] Urine Protein Urine Glucose (UA) Urine Ketones Urine Blood Urine Nitrite Urine Bilirubin Urine Urobilinogen Ur Leukocyte Esterase Urine RBC Urine WBC Ur Squamous Epith Cells Amorphous Sediment Urine Bacteria Urine Mucus Ethyl Alcohol SARS-CoV-2 (PCR) Influenza Type A (PCR) Influenza Type B (PCR) SARS-CoV-2 Ag (Rapid) POC Troponin I 0.00 L 10/10/21 10/10/21 10/10/21 10:00 10:00 10:00 WBC 8.99 RBC 3.11 L Hgb 10.4 L Hct 31.7 L MCV 102 H MCH 33 MCHC 33 RDW Coeff of Andi 15.2 Plt Count 220 Neut % (Auto) 91.1 H Lymph % (Auto) 0.6 L [place] % (Auto) 7.8 Eos % (Auto) 0.2 Baso % (Auto) 0.2 Neut # (Auto) 8.20 H Lymph # (Auto) 0.10 L [place] # (Auto) 0.70 Eos # (Auto) 0.02 Baso # (Auto) 0.02 Abs Immat Gran (auto) 0.01 ESR D-Dimer Quant (PE/DVT) 1.64 H Sodium 133 L Potassium 3.3 L Chloride 103 Carbon Dioxide 28 BUN 12 Creatinine 0.6 Estimated Creat Clear 34.30 Estimated GFR 91 Glucose 109 Lactate Calcium 8.6 Phosphorus Magnesium Total Bilirubin 1.7 H Direct Bilirubin 1.2 H AST 201 H ALT 116 H Alkaline Phosphatase 1114 H NT-Pro-B Natriuret Pep Total Protein 5.3 L Albumin 2.8 L TSH Urine Color Urine Appearance Urine pH Ur Specific [place] Urine Protein Urine Glucose (UA) Urine Ketones Urine Blood Urine Nitrite Urine Bilirubin Urine Urobilinogen Ur Leukocyte Esterase Urine RBC Urine WBC Ur Squamous Epith Cells Amorphous Sediment Urine Bacteria Urine Mucus Ethyl Alcohol < 0.01 L SARS-CoV-2 (PCR) Influenza Type A (PCR) Influenza Type B (PCR) SARS-CoV-2 Ag (Rapid) POC Troponin I 10/10/21 10:00 WBC RBC Hgb Hct MCV MCH MCHC RDW Coeff of Andi Plt Count Neut % (Auto) Lymph % (Auto) [place] % (Auto) Eos % (Auto) Baso % (Auto) Neut # (Auto) Lymph # (Auto) [place] # (Auto) Eos # (Auto) Baso # (Auto) Abs Immat Gran (auto) ESR 44 H D-Dimer Quant (PE/DVT) Sodium Potassium Chloride Carbon Dioxide BUN Creatinine Estimated Creat Clear Estimated GFR Glucose Lactate Calcium Phosphorus Magnesium Total Bilirubin Direct Bilirubin AST ALT Alkaline Phosphatase NT-Pro-B Natriuret Pep Total Protein Albumin TSH Urine Color Urine Appearance Urine pH Ur Specific [place] Urine Protein Urine Glucose (UA) Urine Ketones Urine Blood Urine Nitrite Urine Bilirubin Urine Urobilinogen Ur Leukocyte Esterase Urine RBC Urine WBC Ur Squamous Epith Cells Amorphous Sediment Urine Bacteria Urine Mucus Ethyl Alcohol SARS-CoV-2 (PCR) Influenza Type A (PCR) Influenza Type B (PCR) SARS-CoV-2 Ag (Rapid) POC Troponin I Discharge Plan Discharge Disposition: Home, Self-Care Date of Admission: 10/10/21 13:13 Attending Provider on Discharge: Benjamin Newsome Primary Care Provider: Priscila Kelley Condition: Stable Anticipated Discharge Date/Time: 10/11/21 08:49 Discharge Medications: Continued sodium chloride 1 gram tablet 1,000 mg PO TID Qty: 90 5RF fludrocortisone 0.1 mg tablet 0.1 mg PO QDAY Qty: 90 3RF loperamide 2 mg capsule 2 mg PO PRN 0RF levothyroxine 75 mcg tablet 75 mcg PO DAILY 0RF magnesium oxide 400 mg (241.3 mg magnesium) tablet 1,600 mg PO DAILY 0RF calcitriol 0.25 mcg capsule 0.5 mcg PO DAILY 0RF nystatin 100,000 unit/mL suspension 5 ml PO QID [id number] Label Comments: SWISH AND SPIT 5 ML BY MOUTH FOUR TIMES DAILY NEEDED pantoprazole 40 mg tablet,delayed release (DR/EC) 40 mg PO DAILY 0RF Citracal-D3 Maximum Plus 325 mg-12.5 mcg -2.75 mg tablet 3 tab PO DAILY 0RF potassium chloride 20 mEq tablet extended release 20 meq PO BID Qty: 180 3RF Discharge Orders: Discharge Order (Routine); Ordered 10/11/21 Ordered By: Benjamin Newsome Patient Education: Fall Prevention (DC) Activity Level: No Restrictions Discharge Diet: Regular Follow Up Appointments: Priscila Kelley MD [Primary Care Provider] - Forms: PAAY Info Instructions
[2021-10-11] MEDS: MAGNESIUM OXIDE 400 MG TABLET 1600 MG PO (09:19)
[2021-10-11] MEDS: FLUDROCORTISONE ACETATE 0.1 MG TABLET 0.2 MG PO (09:21)
[2021-10-11 09:38] VITALS: BP 113/76; BP 150/79; BP 80/50; PULSE 100; PULSE 79; PULSE 90; RESP 18; TEMP 37.1; O2SAT 97
--- NOTE | 2021-10-11 11:04 | PC.NURSE ---
Discharge-- Very pleasant and cooperative, alert and oriented patient discharged to home via wheelchair with at 1050. VSS and pt is afebrile, though orthostatic B/Ps did drop dramatically with position change and MD was notified. SPO2> 94% on RA. Pt states that she always has some abdominal pain r/t her cancer, but she rated it 2 out of 10 this morning and stated that it was tolerable without intervention. LS CTA. She denied nausea and tolerated a regular diet. She was up to the BR with SBA and tolerated it well. She does change positions slowly as patient is very aware of when she feels lightheaded. Discharge education was provided including diagnosis info, symptoms to report, medications and follow up plan. No further questions asked. Port was de-accessed prior to discharge.
--- NOTE | 2021-10-11 11:09 | NUTR.NU ---
RDN with MD consult for weight loss. Patient is known to RDN - was seen as an outpatient (in [facility]) previously for MNT and is currently being followed by RDN. RDN attempted to visit with patient earlier this morning, however patient was not available at that time. RDN reattempted to visit later this morning, however patient was already discharged. RDN will follow-up with patient as an outpatient.
[2021-10-11 15:14] LABS: NT Pro B Type NatriureticPept* 836 PG/mL (0-450)
== END 2021-10-11 10:50 | disposition home or self-care (01) ==
LOC: ED 12:28 → MEDSURG 10-11 08:53
PROVIDERS: Internal Medicine; Admitting Provider Family Medicine; Emergency Provider Family Medicine; PCP Internal Medicine; Visit Provider Family Medicine
DX: I95.1 Orthostatic hypotension (principal); C25.9 Malignant neoplasm of pancreas, unspecified; C77.2 Secondary and unspecified malignant neoplasm of intra-abdominal lymph nodes; W19.XXXA Unspecified fall, initial encounter; R63.4 Abnormal weight loss; Z68.1 Body mass index [BMI] 19.9 or less, adult; Z91.81 History of falling; R53.83 Other fatigue; R53.1 Weakness; R06.09 Other forms of dyspnea; Z86.79 Personal history of other diseases of the circulatory system; Z90.49 Acquired absence of other specified parts of digestive tract; E03.9 Hypothyroidism, unspecified; D12.6 Benign neoplasm of colon, unspecified; E87.6 Hypokalemia; E20.9 Hypoparathyroidism, unspecified; M85.80 Other specified disorders of bone density and structure, unspecified site; Z66 Do not resuscitate
CPT/HCPCS: 36415; 70450; 71046; 71260; 80048; 80076; 81001; 82077; 83605; 83735; 83880; 84100; 84443; 84484; 85018; 85025; 85379; 85651; 87086; 87426; 87502; 87635; 93005; 97116; 97161; 97165; 99285; A9270; G0378; G0379; J1642; Q9967

== ENCOUNTER 2021-10-11 10:30 | Outpatient (RCR) | payer MEDICARE, OTHER, SELFPAY ==
--- NOTE | 2021-09-28 09:20 | ONC.NURNOTE ---
Patient phoned in follow up: inpatient last week at [place] post pain block procedure developed orthostatic hypotension which continues to be a concern at home also reports a new lump nodule on the left hip which she would like Kassandra to evaluate on appts reviewed with lab draws and provider this
--- NOTE | 2021-09-29 09:04 | NUTR.NU ---
Nutrition Follow-up: RDN follow-up with patient regarding tolerance of diet. Patient reports she had pain-black procedure done September 20. She is now able to eat solid foods without experiencing abdominal pain. She reports being able to eat a wider variety of foods lately, however she believes she is still not eating enough food. She consumes 2 Boost/Ensure daily. No new weight for RDN to assess at this time. Patient denied follow-up appointment with RDN at this time. RDN encouraged patient to try eating often, every 2-3 hours, and to continue including 2 Boost/Ensure daily. Patient had no questions at this time. RDN will continue to monitor and follow-up prn.
[2021-09-30 10:08] LABS: Basophils Absolute Auto 0.04 K/uL (0.00-0.30); Basophils Percent Auto 0.5 % (0.0-3.0); Eosinophils Percent Auto 1.2 % (0.0-7.0); Hematocrit 29.1 % (33.0-51.0); Hemoglobin* 9.4 gm/dL (12.0-16.0); Immature Granulocytes Abs Auto 0.02 K/uL (0.00-0.30); Lymphocytes Percent Auto 3.5 % (20-44); Mean Corpuscular HGB Conc 32 gm/dL (32-36); Mean Corpuscular Hemoglobin 34 pg (26-34); Mean Corpuscular Volume 104 fL (80-100); Monocytes Percent Auto 8.4 % (0.0-11.0); Neutrophils Percent Auto 86.2 % (42.0-72.0); Platelet Count* 330 K/uL (140-440); RDW Coefficient of Variation % 15.7 % (11.5-15.5); Red Blood Count 2.81 m/uL (4.00-5.20); White Blood Count* 8.58 K/uL (4.50-11.00)
[2021-09-30 10:20] LABS: Slide Review Reflex No
[2021-09-30 10:28] LABS: Chloride* 99 mmol/L (96-114); Sodium* 134 mmol/L (135-149)
[2021-09-30 10:30] LABS: Creatinine* 0.6 mg/dL (0.5-1.5); Estimated Glomerular Filt Rate 91.25
[2021-09-30 10:31] LABS: Alanine Aminotransferase* 48 U/L (4-35); Alkaline Phosphatase* 601 U/L (40-150); Aspartate Amino Transferase* 52 U/L (12-35); Bilirubin Total* 0.5 mg/dL (0.1-1.5); Blood Urea Nitrogen* 13 mg/dL (7-30); Calcium* 8.7 mg/dL (8.4-10.6); Carbon Dioxide* 32 mmol/L (20-32); Glucose* 148 mg/dL (60-115); Magnesium* 1.9 mg/dL (1.5-2.6); Total Protein* 5.5 g/dL (6.0-8.3)
[2021-09-30 10:38] LABS: Potassium* 2.9 mmol/L (3.6-5.1)
[2021-09-30] MEDS: POTASSIUM CHLORIDE 10 MEQ/100 ML PIGGYBACK 100 MEQ IVPB ×3 (11:25→13:28)
[2021-09-30] MEDS: HEPARIN 500 UNIT/5 ML SYRINGE IVF (16:12)
[2021-09-30] MEDS: SODIUM CHLORIDE 0.9 % (FLUSH) 10 ML SYRINGE IVF (16:13)
--- NOTE | 2021-10-22 09:57 | NUTR.NU ---
Nutrition Follow-up: RDN follow-up with patient regarding tolerance of diet. Patient had pain-black procedure done August. Was hospitalized from 10/10/21 to 10/11/21 for orthostatic hypotension. RDN attempted to visit pt during admission, however patient was not available. RDN called patient and spoke to patient's . Patient is tolerating solid foods with without experiencing abdominal pain. He reports patient is eating a little more now, however not a significant amount more. She is consuming 2-3 Ensures daily. Denied follow-up appointment with RDN at this time. Current weight (10/12/21) 106 lbs; weight 09/06/21 101.1 lbs; Weight 08/09/21 106.6 lbs. Weight has increased ~ 5 lbs. RDN encouraged patient to try eating often, every 2-3 hours, and to continue including 2 Boost/Ensure daily. No questions at this time. RDN will continue to monitor and follow-up prn.
== END 2021-10-24 23:59 | disposition home or self-care (01) ==
LOC: CCIC 10:30
PROVIDERS: Clinical Nurse Specialist; PCP Internal Medicine; Visit Provider Internal Medicine Medical Oncology
DX: C25.9 Malignant neoplasm of pancreas, unspecified (principal)
CPT/HCPCS: 36415; 36591; 80053; 83735; 85025; 96365; 96366; 99212; 99214; 99215; J1642; J3480

== ENCOUNTER 2021-11-02 23:13 | Outpatient (CLI) | payer MEDICARE, OTHER, SELFPAY ==
--- OUTSIDE RECORDS SUMMARY | 2021-11-15 12:16 | XMS_ITS | Encounter Summary ---
:1940 Author Organization [facility] Address [address] [place] [address] Care Team Providers Name Role Phone Elsewhere, Pcp Primary Care Provider Unavailable Encounter Details Date Type Department Care Team Description 10/12/2021 [facility] Priscila Kelley Hypotension AND KINGSLEY Orellana M.D. Orthostatic (Primary [address]) [place] [address] [phone] Social History Tobacco Use Types Packs/Day Years [...] or slept in a snf (including now)? Education Answer Date Recorded What is the highest level of school you have Some college, n o degree 10/23/2020 completed or the highest degree you have received? Sex Assigned at Date Recorded Female 07/03/2017 2:07 PM CDT documented as of this encounter Plan of Treatment Not on filedocumented as of this encounter Visit Diagnoses Diagnosis Hypotension Orthostatic - Primary documented in this encounter Care Teams Core Paster Relationship Specialty Start Date End Date Elsewhere, Pcp PCP - General Internal Medicine 09/24/21 documented as of this encounter
--- OUTSIDE RECORDS SUMMARY | 2021-11-15 12:16 | XMS_ITS ---
:1940 Author Organization [facility] Address [address] [place] [address] Care Team Providers Name Role Phone Elsewhere, [...] Prescribed Total On Treated Fraction Dose Dose [id number] 08/13/2021 39 25 of 25 200 cGy 5,000 cGy Reference Point Last Treated On Elapsed Days Session Dose Total Dos e [id number] 08/13/2021 39 200 cGy 5,000 cGy Lifetime [...]
--- OUTSIDE RECORDS SUMMARY | 2021-11-15 12:16 | XMS_ITS | Clinical Summary ---
:1940 Author Organization [facility] Address [address] [place] [address] Care Team Providers Name Role Phone Elsewhere, Pcp Primary Care Provider Unavailable Source Comments Patient records contain information from all sites at [facility]. For routine questions regarding patient records, call [phone] during business hours, M-F 8:00 AM - 5:00 PM Central Time. Record requests for emergency care only can be directed to [phone] at any time.[facility] Allergies No known active allergies Medications [...] Information Patient not taking. Reported on 09/20/2021 kawlwts-D4-otye-copper-marlo Take by mouth. 0 05/20 Active (Citracal-D3 Maximum Plus) 325 Taking 3-4 mg-12.5 mcg -2.75 mg tablet daily ESTRIOL MICRONIZED, BULK, MISC Three Times 0 020 Active Weekly levothyroxine (SYNTHROID, 0 09/12/2020 [...] daily 20 administered 22 prior to meals. Active Problems Problem Noted Date Malignant Neoplasm [...] Zarate Jr., R.Ph. 09/20/2021 Hospital Encounter Oncology Pittelkow, Malignant Neoplasm Of Pancreatic Duct (HCC) (Primary Dx); - Kota Catalan D.O., Malignant Ne oplasm Of Pancreas Adenocarcinoma (HCC); 09/24/2021 M.[facility] Pain Cancer Associated; Walt Kinsey, Lightheadedness ; Kasey, Ph.D. Hypotension Orthostatic Adriana Berrios M.D., M.B.AMiranda Denton M.D. 09/16/2021 Comprehensive Visit Pain Medicine Myron, Pain Ca ncer Associated (Primary Dx); Kota Catalan D.O., Malignant Ne oplasm Of Pancreas Adenocarcinoma (HCC) M.P.H. 09/13/2021 Clinical Admitting/Central Pre-visit Intake Communication Scheduling 09/07/2021 Clinical Oncology Daniel Vieira, Communication M.D. 09/07/2021 Orders Only Oncology Daniel Vieira, Malignant Ne oplasm Of M.D. Pancreas Adenocarcinoma (HCC) (Primary Dx) from Last 3 Months Immunizations Name Administration [...] 09/21/2021 2:43 PM CDT Plan of Treatment Health Maintenance Due Date Last Done Comments [...] Completed 09/20/2021 Medical Devices Implanted Type Area Fixture Repairer Fabricator Device Shelf Model / Identifier Expiration Serial / Date Lot Stnt Wll 0.035 Rx Ncvr 10x40 - [id number] Biliary Stent N/A: [place] 08/21/2022 [id number] / Implanted: Qty: 1 on 01/26/2021 by [facility] [employer] / Duct [id number] Prt Pwr [facility] Mctrdcr 8f - [id number] Implantable C.R.Bard 06/24/2021 [id number] / Implanted: Qty: 1 on 06/05/2020 by Akhil Amador M.D. at [facility] [place] / [id number] Procedures Procedure Name Priority Date/Time Associated Diagnosis Comme nts OUTSIDE CT BODY Routine 11/03/2021 12:55 Results for this AM CDT procedure are i n the results section. OUTSIDE CT BODY Routine 10/10/2021 11:05 Results for this AM CDT procedure are i n the results section. OUTSIDE DX CHEST Routine 10/10/2021 10:10 Results for this AM CDT procedure are i n the results section. OUTSIDE CT NEURO Routine 10/10/2021 9:40 AM Resul ts for this CDT procedure are i n the results section. IRON AND TOT Routine 09/24/2021 4:32 AM [...] the results Pain Cancer Associated secti on. from Last [address] chest abdomen pelv w con-Outside CT Body (11/03/2021 12:55 AM CDT)Only the most recent of2 resultswithin the time period is included. Specimen (Source) Anatomical Location Collection Method / Collectio n Time Received Time / Laterality Volume Narrative IIID - 11/05/2021 4:22 PM CDT This order has been created [...] System IMG CT PROCEDURES Performing Organization Address City/State/ZIP Code Phon e Number IIID IIID NA XR CHEST 2V-Outside Chest Xray (10/10/2021 10:10 AM CDT) Specimen (Source) Anatomical Location Collection Method / Collectio n Time Received Time / Laterality Volume Narrative IIID - 10/12/2021 4:35 PM CDT This order [...] DIAGNOSTIC IMAGING PROCE DURES Performing Organization Address City/[facility]/ZIP Code Phon e Number IIMS IIMS NA CT HEAD/BRAIN WO CON-Outside CT Neuro (10/10/2021 9:40 AM CDT) Specimen (Source) Anatomical Location Collection Method / Collectio n Time Received Time / Laterality Volume Narrative IIMS - 10/12/2021 4:36 PM CDT This order [...] System IMG CT PROCEDURES Performing Organization Address City/[facility]/ZIP Code Phon e Number CINDY WHITE NA (ABNORMAL) Iron and Total Iron-Binding Capacity [...] e Number [facility] - [address] [place], [place] [address] [facility] [place] [address] Laboratories-[facility] [address] (ABNORMAL) CBC without Differential (09/24/2021 4:32 AM CDT)Only the most recent of4 resultswithin the time period is included. Patholo gist Method Time Signature Hemoglobin 8.1 (L) [...] e Number [facility] - [address] [place], [place] [address] [facility] [place] [address] [facility] 200 [facility] (ABNORMAL) Basic Metabolic Panel (09/24/2021 4:32 [...] 09/24/2021 DTL 5:34 AM CDT BUN (Blood Urea 7 6 - 21 09/24/2021 DTL Nitrogen), S mg/dL 5:34 AM CDT Creatinine 0.67 0.59 - 09/24/2021 DTL 1.04 mg/dL 5:34 AM CDT eGFR-Non 84 >=60 09/24/2021 DTL Black/ mL/min/BSA 5:34 AM CDT Nigerian Comment: ----ADDITIONAL INFORMATION---- Estimated GFR [...] P.A.-C. LAB BLOOD ADD-ON Performing Organization Address City/[facility] Phon e Number [address] Magnesium (09/23/2021 4:59 AM CDT)Only the [...] P.A.-C. LAB BLOOD ADD-ON Performing Organization Address City/[facility] Phon e Number [facility] [address] [place], [place] [address] [place] [address] (TTE) 2D ECHO DOPPLER COLOR (09/22/2021 2:33 PM CDT) [facility] Method Time Signature Ejection Fraction 57 MC [...] 2:45 PM CDT There are no previous [facility] echocardiograms available for comparison. Anemia, thyrotoxicosis, [...] For the complete report, see the [employer] Documents. Narrative 09/22/2021 2:45 PM CDT For [...] pericardial effusion. Findings There are no previous [facility] echoca rdiograms available for comparison. Anemia, [...] Signature Ventricular Rate 90 BPM MUSE ECG/Min AZ Interval 140 ms MUSE QRSD Interval 88 ms MUSE QT Interval 336 ms MUSE QTC Interval 411 ms MUSE P Thicket 53 degrees MUSE R Thicket 6 degrees MUSE T Wave Thicket 79 degrees MUSE Specimen Anatomical Collection Method [...] Leach P.A.-C. ECG ORDERABLES Performing Organization Address City/[facility]/ZIP Code Phon e Number MUSE MUSE NA [...] P.A.-C. LAB BLOOD ADD-ON Performing Organization Address City/[facility]/ZIP Code Phon e Number [facility] - [address] [place] [address] [facility] [place] [address] [facility] 200 [facility] (ABNORMAL) CBC with Differential, Blood (09/21/2021 12:34 AM CDT) Patholo gist Method Time Signature Hemoglobin 7.9 (L) 11.6 [...] e Number [facility] - [address] [place], [place] [address] [facility] [place] [address] [facility] [address] Creatinine with Estimated GFR (09/21/2021 12:34 AM CDT) P athologist Signature Creatinine 0.64 0.59 - 09/21/2021 DTL 1.04 mg/dL 1:16 AM CDT eGFR-Non 85 >=60 09/21/2021 DTL Black/ mL/min/BSA 1:16 AM CDT Nigerian Comment: ----ADDITIONAL INFORMATION---- Estimated GFR [...] Allen LAB BLOOD ADD-ON Performing Organization Address [facility] Phon e Number [facility] - [address] [place] [address] [place], [place] [address] [place] [address] Folate (09/21/2021 12:31 AM CDT) athologist Signature Folate, S 17.5 >=4.0 mcg/L 09/22/2021 DTL 11:37 AM CDT Specimen Anatomical Collection Method Collection Time Receive d Time (Source) Location / / Volume Laterality Blood (Blood, 09/21/2021 12:31 09/22/2021 Venous) AM CDT 10:25 AM CDT Narciso Leach P.A.-C. LAB BLOOD ADD-ON Performing Organization Address City/[facility] Phon e Number [facility] - [id number] [place] [address] Vitamin B12 Assay (09/21/2021 12:31 AM CDT) [...] P.A.-C. LAB BLOOD ADD-ON Performing Organization Address [facility] Phon e Number [facility] - [address] [place] [address] 05 [place] [address] [facility] VRE PCR (09/20/2021 8:01 PM CDT) [facility] gist Method Time Signature Specimen Swab, 09/22/2021 DTL Source Perirectal 10:53 PM CDT VRE PCR Negative Negative 09/22/2021 DTL 10:53 PM CDT Comment: ----ADDITIONAL INFORMATION---- This test was developed using an analyte specific reagent. Its performance characteristics were determined by [facility] in a manner consistent with CLIA requirements. This test has not bee n cleared or approved by the U.S. Food and Drug Administration. Specimen Anatomical Collection Method Collection Time Receive d Time (Source) Location / / Volume Laterality Varies 09/20/2021 8:01 PM 8:53 (Perirectal) CDT PM CDT Walt Kinsey M.D., Ph.D. LAB MICROBIOLOGY - GENERAL O RDERABLES Performing Organization Address [facility] Phon e Number [facility] - [address] [place] [address] 05 [place] [address] [place] Celiac Plexus/Splanchnic Block Injection (09/20/2021 [...] fellow participated in the procedure, and the cyber security consultant was present for the entire procedure. OPERATIVE NOTE INFORMATION Specimens: 0 Drains: 0 Estimated blood loss: 0 Implants: 0 Kota Sanches D.O., M.P.H. FLUORO GUIDED PAIN PRO CEDURES from Last 3 Months Insurance Payer Benefit Plan / Subscriber ID Effective Phone Address T ype Group Dates MEDICARE MEDICARE A AND [id number] 2007-Pres [address] [place] [address] MEDICA MEDICA PRIME [id number] 2017-Prese [phone] [address] Cost Share [employer] COST nt [address] [place] [address] Advance Directives For more information, please contact: [phone] Latest Code Status on File Code Status Date Activated Date Inactivated Comments Full Code 09/20/2021 8:50 PM 09/24/2021 5:03 PM Full Code: Discussed Care Teams Gyn Relationship Specialty Start Date End Date Elsewhere, Pcp PCP - General Internal Medicine 09/24/21
--- OUTSIDE RECORDS SUMMARY | 2021-11-15 12:17 | XMS_ITS | Encounter Summary ---
:1940 Author Organization [facility] Address [address] [place] [address] Care Team Providers Name Role Phone Aviva Laws APRN, C.N.P., M.S.N. Primary Care Provider [phone] Encounter Details Date Type Department Care Team Description 08/11/2021 Hospital Encounter Department of Radiation Vy Bills, Oncology in [facility] [address] [facility] [address] [place] [phone] Social History Tobacco Use Types Packs/Day Years [...] Sig Dispensed Refills Start Date End Date fbpsmja-J8-xngp-copper- Take by mouth. 0 05/20/19 21 marlo [...] filedocumented as of this encounter Visit Diagnoses Not on filedocumented in this encounter Care Teams Receiving Tank Operator Relationship Specialty Start Date End Date Aviva Laws APRN, C.N.P., PCP - General Family Medicine 12/11/20 09/23/21 M.S.N. [address] [address] documented as of this encounter
--- OUTSIDE RECORDS SUMMARY | 2021-11-15 12:17 | XMS_ITS | Encounter Summary ---
:1940 Author Organization [facility] Address [address] [place] [address] Care Team Providers Name Role Phone Elsewhere, Pcp Primary Care Provider Unavailable Encounter Details Date Type Department Care Team Description 09/29/2021 Specialty Pharmacy [facility] Andrés Zarate [address] Ravinder Rosado Jr., [place] [address] [address] [facility] [phone] [place] [address] (Wo rk) Social History Tobacco [...] Miscellaneous Notes Telephone Encounter - Andrés Zarate Jr. R.Ph. - 09/29/2021 1:53 PM CDT [facility] Specialty Pharmacy service discontinued at this time. documented in this encounter Plan of Treatment Not on filedocumented as of this encounter Visit Diagnoses Not on filedocumented in this encounter Care Teams Customer Professional Relationship Specialty Start Date End Date Elsewhere, Pcp PCP - General Internal Medicine 09/24/21 documented as of this encounter
--- OUTSIDE RECORDS SUMMARY | 2021-11-15 12:17 | XMS_ITS | Encounter Summary ---
:1940 Author Organization [facility] Address [address] [place] [address] Care Team Providers Name Role Phone Aviva Laws APRN, C.N.P., M.S.N. Primary Care Provider [phone] [phone] Encounter Details Date Type Department Care Team Description 08/09/2021 Hospital Encounter Department of Radiation Vy Bills, Oncology in [facility] [address] [facility] [address] [place] [phone] Social History Tobacco Use Types Packs/Day Years [...] Sig Dispensed Refills Start Date End Date olrhvar-X6-ahnm-copper- Take by mouth. 0 05/20/19 21 marlo [...] on filedocumented in this encounter Care Teams Computer Programming Professor Relationship Specialty Start Date End Date Aviva Laws APRN, C.N.P., PCP - General Family Medicine 12/11/20 09/23/21 M.S.N. [address] [place] [address] documented as of this encounter
--- OUTSIDE RECORDS SUMMARY | 2021-11-15 12:17 | XMS_ITS | Encounter Summary ---
:1940 Author Organization [facility] Address [address] [place] [address] Care Team Providers Name Role Phone Aviva Laws APRN, C.N.P., M.S.N. Primary Care Provider [phone] Encounter Details Date Type Department Care Team Description 08/06/2021 Hospital Encounter Department of Radiation Vy Bills, Oncology in [facility] [address] [facility] [address] [place] [phone] Social History Tobacco Use Types Packs/Day Years [...] Sig Dispensed Refills Start Date End Date jncuaes-H8-qrhg-copper- Take by mouth. 0 05/20/19 21 marlo [...] as of this encounter Care Teams Body Shop Floorperson Relationship Specialty Start Date End Date Aviva Laws APRN, C.N.P., PCP - General Family Medicine 12/11/20 09/23/21 [place] [address] [phone] documented as of this encounter
--- OUTSIDE RECORDS SUMMARY | 2021-11-15 12:17 | XMS_ITS | Encounter Summary ---
:1940 Author Organization [facility] Address [address] [place] [address] Care Team Providers Name Role Phone Aviva Laws APRN, C.N.P., M.S.N. Primary Care Provider +1 [phone] Encounter Details Date Type Department Care Team Description 09/07/2021 Clinical Communication Department of Oncology Judith Vieira, in [facility] [address] [facility] [address] [place] [phone] Social History Tobacco Use Types Packs/Day Years [...] CDT I saw the patient in the [facility] yesterday (see my notes in documents shan). Her pain continues to be debilitating in spite of radiation therapy. She is taking minimal amounts narcotic painmedication and I suggested increasing this. I also offered her a visit to the pain clinic in [place] to see if anything further can be [...] on filedocumented in this encounter Care Teams Freight Separator Relationship Specialty Start Date End Date Aviva Laws APRN, C.N.P., PCP - General Family Medicine 12/11/20 09/23/21 M.S.N. [address] [phone] documented as of this encounter
--- OUTSIDE RECORDS SUMMARY | 2021-11-15 12:17 | XMS_ITS | Encounter Summary ---
:1940 Author Organization [facility] Address [address] [place] [address] Care Team Providers Name Role Phone Aviva Laws APRN C.N[place]P., M.S.N. Primary Care Provider +1 -[phone] Reason for Referral Radiation Therapy (Routine) - Authorized Specialty Diagnoses / Procedures Referred By Contact Refer red To Contact Diagnoses Malignant Neoplasm Of Pancreas Adenocarcinoma (HCC) Yung Bills [facility]. [facility] Procedures Management Visit [address] [place] [phone] Referral ID Status Reason Start Date Expiration Date Visits V isits Requested Authorized [id number] Authorized 06/22/2021 06/22/2022 10 10 Reason for Visit Radiation Therapy (Routine) - Authorized Specialty Diagnoses / Procedures Referred By Contact Refer red To Contact Diagnoses Malignant Neoplasm Of Pancreas Adenocarcinoma (HCC) Yung Bills [facility]. [facility] Procedures Management Visit [address] [place] [phone] Referral ID Status Reason Start Date Expiration Date Visits V isits Requested Authorized [id number] Authorized 06/22/2021 06/22/2022 10 10 Encounter Details Date Type Department Care Team Description 08/12/2021 - Hospital Encounter Department of Vi Bills Neoplasm Of 08/13/2021 Radiation Oncology Yung Phillips M.D. Pancreas in [place], [address] [facility] Adenocarcinoma (HCC) [place], [place] [address] [facility] [address] [place], [place] [phone] (Work) [phone] Social History Tobacco Use Types Packs/Day Years [...] Sig Dispensed Refills Start Date End Date gksydqm-F7-ltwj-copper- Take by mouth. 0 05/20/19 21 marlo [...] Adenocarcinoma (HCC) SUPERVISED BY: Yung Bills M.D. ([id number]) HISTORY OF PRESENT ILLNESS Azeb العراقي is a 81 y.o. 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 She is now undergoing radiotherapy with concurrent oral capecitabine. Chemotherapy is being managed by Dr. Garcia at [facility]. She had a break from treatment from July 19, 2021 through July 25, 2021 because she tested positive for COVID-19 on July 19, 2021. Treatment Course: 1xPancreas Plan ID Fractions Dose / Fraction (cGy) Dose Treated (cGy) Dose Planned (cGy) First Treatment Last Treatment Elapsed Days [id number] [id number] 07/05/2021 08/12/2021 38 Course [...] and the Common Hereditary Cancers panel from [facility]. 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 06/08/2020 - 01/18/2021 Chemotherapy FOLFIRINOX ( Fluorouracil / Leucovorin / Irinotecan / Oxaliplatin ) Start Date: 06/08/2020 15 cycles completed in [place] under the care of Dr. Vivar. 01/26/2021 [...] ) Cycles 16 - 24 completed at [facility] under the care of [facility] Medical Oncology providers. 05/12/2021 Imaging Ultrasound of [...] she isscheduled to see Dr. Garcia at [facility] on September 06, 2021. She will contact [...] Yung Bills M.D. 08/13/2021 6:08 PM CDT [facility] Rad[facility] [address] [place] [address] documented in this encounter Miscellaneous Notes Addendum Note - Lindsey Fisher, C.N.A. - 08/12/2021 2:15 PM CDT Encounter addended by: Lindsey Fisher C.N.[place] on: 08/16/2021 7:00 AM Actions taken: Letter saved documented in this encounter Plan of Treatment Scheduled Orders Name Type Priority Associated Diagnoses Order S chedule Management Visit Radiation Oncology Routine Malignant Neoplasm Of Once for 1 Pancreas Occurrences Adenocarcinoma (HCC) startin g 08/12/2021 until 2 documented as of this encounter Visit Diagnoses Diagnosis Malignant Neoplasm Of Pancreas Adenocarc inoma (HCC) documented in this encounter Care Teams Glass Belt Sander Relationship Specialty Start Date End Date Aviva Laws APRN, C.N.P., PCP - General Family Medicine 12/11/20 09/23/21 [address] [place] [address] documented as of this encounter
--- OUTSIDE RECORDS SUMMARY | 2021-11-15 12:17 | XMS_ITS | Encounter Summary ---
:1940 Author Organization [facility] Address [address] [place] [address] Care Team Providers Name Role Phone Aviva Laws APRN, C.N.P., M.S.N. Primary Care Provider +1 [phone] Encounter Details Date Type Department Care Team Description 08/13/2021 Hospital Encounter Department of Radiation Vy Bills, Oncology in [facility] [place] [facility] [address] [facility] [address] [place] [phone] Social History Tobacco Use Types Packs/Day Years [...] Sig Dispensed Refills Start Date End Date uppksue-X5-puon-copper- Take by mouth. 0 05/20/19 21 marlo [...] on filedocumented in this encounter Care Teams Recruitment And Outreach Assistant Relationship Specialty Start Date End Date Aviva Laws APRN, C.N.P., PCP - General Family Medicine 12/11/20 09/23/21 M.S.N. [address] [place] [phone] documented as of this encounter
--- OUTSIDE RECORDS SUMMARY | 2021-11-15 12:17 | XMS_ITS | Encounter Summary ---
:1940 Author Organization [facility] Address [address] [place] [address] Care Team Providers Name Role Phone Aviva Laws APRN, C.N.P., M.S.N. Primary Care Provider +1 [phone] Encounter Details Date Type Department Care Team Description 08/10/2021 Hospital Encounter Department of Radiation Vy Bills, Oncology in [facility] [address] [facility] [address] [place] [phone] Social History Tobacco Use Types Packs/Day Years [...] Sig Dispensed Refills Start Date End Date upahbir-I8-eyko-copper- Take by mouth. 0 05/20/19 21 marlo [...] on filedocumented in this encounter Care Teams Student Development Dean Relationship Specialty Start Date End Date Aviva Laws APRN, C.N.P., PCP - General Family Medicine 12/11/20 09/23/21 M.S.N. [address] [place] [phone] documented as of this encounter
--- OUTSIDE RECORDS SUMMARY | 2021-11-15 12:17 | XMS_ITS | Encounter Summary ---
:1940 Author Organization [facility] Address [address] [place] [address] Care Team Providers Name Role Phone Aviva Laws APRN, C.N.P., M.S.N. Primary Care Provider +1 -[phone] Reason for Visit Reason Comments Pre-visit Intake Encounter Details Date Type Department Care Team Description 09/13/2021 Clinical Communication Visit Review in Pr e-visit Intake [place], [place] [address] [place] [address] Social History Tobacco Use Types [...] on filedocumented in this encounter Care Teams Re Recording Mixer Relationship Specialty Start Date End Date Aviva Laws, LENNOX, C.N.P., PCP - General Family Medicine 12/11/20 09/23/21 M.S.N. [address] [phone] documented as of this encounter
--- OUTSIDE RECORDS SUMMARY | 2021-11-15 12:17 | XMS_ITS | Encounter Summary ---
:1940 Author Organization [facility] Address [address] [place] [address] Care Team Providers Name Role Phone Aviva Laws APRN, C.N.P., M.S.N. Primary Care Provider +1 -[phone] Encounter Details Date Type Department Care Team Description 08/12/2021 Hospital Encounter Department of Radiation Vy Bills, Oncology in [facility] [address] [facility] [address] [place] [phone] Social History Tobacco Use Types Packs/Day Years [...] Sig Dispensed Refills Start Date End Date ktnmxjl-U5-fhtx-copper- Take by mouth. 0 05/20/19 21 marlo [...] on filedocumented in this encounter Care Teams Pouch Making Machine Operator Relationship Specialty Start Date End Date Aviva Laws APRN, C.N.P., PCP - General Family Medicine 12/11/20 09/23/21 M.S.N. [address] [place] [phone] documented as of this encounter
--- OUTSIDE RECORDS SUMMARY | 2021-11-15 12:17 | XMS_ITS | Encounter Summary ---
:1940 Author Organization [facility] Address [address] [place] [address] Care Team Providers Name Role Phone Aviva Laws APRN C.N.P., M.S.N. Primary Care Provider +1 -[phone] Reason for Referral Outpatient (Routine) - Closed Specialty Diagnoses / Procedures Referred By Contact Refer red To Contact Pain Medicine Diagnoses Malignant Neoplasm Of Pancreas Adenocarcinoma (HCC) Daniel Vieira M.D. [facility] [address] [place] [phone] Referral ID Status Reason Start Date Expiration Date Visits Requ ested Visits Authorized [id number] Closed 09/07/2021 09/07/2022 1 1 Encounter Details Date Type Department Care Team Description 09/07/2021 Orders Only Department of Daniel Vieira Malignant N eoplasm Of Oncology in [place] Pancreas Adenocarcinoma [address] (HCC) (Primary Dx) [address] [place] [phone] Social History Tobacco Use Types Packs/Day Years [...] for the very basics like Not h [place] at all 06/19/2021 food, housing, medical care, [...] as of this encounter Plan of Treatment Scheduled Referrals Name Type Priority Associated Diagnoses Order [place] [facility] - Outpatient Referral Routine Malignant Neoplasm Of Expected: Cancer consult Pancreas Adenocarcinoma (clinic) (HCC) (Approximate), Expires: 12/08/2022 documented as of this encounter Visit Diagnoses Diagnosis Malignant Neoplasm Of Pancreas Adenocarc inoma (HCC) - Primary documented in this encounter Care Teams Pouch Maker Relationship Specialty Start Date End Date Aviva Laws, LENNOX, C.N.P., PCP - General Family Medicine 12/11/20 09/23/21 [address], [place] [address] documented as of this encounter
--- OUTSIDE RECORDS SUMMARY | 2021-11-15 12:17 | XMS_ITS | Encounter Summary ---
:1940 Author Organization [facility] Address [address] [place] [address] Care Team Providers Name Role Phone Aviva Laws APRN C.N.P., M.S.N. Primary Care Provider +1 -[phone] Reason for Referral Outpatient (Routine) - Closed Specialty Diagnoses / Procedures Referred By Contact Refer red To Contact Diagnoses Malignant Neoplasm Of Pancreas Adenocarcinoma (HCC) Pain Cancer Associated [place] Sanches Lesage Johan Procedures [place] Celiac Plexus/Splanchnic Block Injection Gail, M.P.H. 200 [place] [phone] Referral ID Status Reason Start Date Expiration Date Visits Requ ested Visits Authorized [id number] Closed 09/16/2021 09/16/2022 1 1 utpatient (Routine) - Authorized Specialty Diagnoses / Procedures Referred By Contact Refer red To Contact Palliative Medicine Diagnoses Malignant Neoplasm Of Pancreas Adenocarcinoma (HCC) Pain Cancer Associated Kota Sanches D.O., M.P.H. 200 [place] [address] Referral ID Status Reason Start Date Expiration Date Visits V isits Requested Authorized [id number] Authorized 09/16/2021 09/16/2022 1 1 Reason for Visit Outpatient (Routine) - Closed Specialty Diagnoses / Procedures Referred By Contact Refer red To Contact Pain Medicine Diagnoses Malignant Neoplasm Of Pancreas Adenocarcinoma (HCC) Daniel Vieira M.D. [address] [phone] Referral ID Status Reason Start Date Expiration Date Visits Requ ested Visits Authorized [id number] Closed 09/07/2021 09/07/2022 1 1 Encounter Details Date Type Department Care Team Description 09/16/2021 Comprehensive Visit Division of Pain [place], Pain Cancer Associated (Primary Dx); Medicine in [place], Malignant Neopl asm Of Pancreas Adenocarcinoma (HCC) Gail Obrien, M.P.H. [address] [phone] Social History Tobacco Use Types Packs/Day Years [...] in this encounter Plan of Treatment Scheduled Referrals Name Type Priority Associated Diagnoses Order [facility] Palliative Medicine Outpatient Referral Routine Malignant Neop [...] fellow participated in the procedure, and the workday consultant was present for the entire procedure. [...] CC) documented in this encounter Care Teams Gear Hobber Operator Relationship Specialty Start Date End Date Aviva Laws, LENNOX, C.N.P., PCP - General Family Medicine 12/11/20 09/23/21 M.S.N. [address] [phone] documented as of this encounter
--- OUTSIDE RECORDS SUMMARY | 2021-11-15 12:17 | XMS_ITS | Encounter Summary ---
:1940 Author Organization [facility] Address [address] [place] [address] Care Team Providers Name Role Phone Aviva Laws APRN, C.N.P., M.S.N. Primary Care Provider +1 -[phone] Reason for Visit Reason Comments Med Refill Encounter Details Date Type Department Care Team Description 08/11/2021 Refill Division of Endocrinology in [facility] Konrad love M.D. Med Refill [place], [place] [address] [facility] [address] [place] [phone] (Wo rk) Social History Tobacco Use Types [...] on filedocumented in this encounter Care Teams Erp Engineer Relationship Specialty Start Date End Date Aviva Laws, LENNOX, C.N.P., PCP - General Family Medicine 12/11/20 09/23/21 M.S.N. [address] [place] [phone] documented as of this encounter
--- OUTSIDE RECORDS SUMMARY | 2021-11-15 12:17 | XMS_ITS | Encounter Summary ---
:1940 Author Organization [facility] Address [address] [place] [address] Care Team Providers Name Role Phone Elsewhere, Pcp Primary Care Provider Unavailable Reason for Referral Outpatient (Routine) - Closed Specialty Diagnoses / Procedures Referred By Contact Refer red To Contact Diagnoses Malignant Neoplasm Of Pancreas Adenocarcinoma (HCC) Pain Cancer Associated Kota Sanches [facility] Procedures [place] Celiac Plexus/Splanchnic Block Injection Tuan.Jersey, M.P.H. [address] [place] [phone] Referral ID Status Reason Start Date Expiration Date Visits Requ ested Visits Authorized [id number] Closed 09/16/2021 09/16/2022 1 1 Reason for Visit Outpatient (Routine) - Closed Specialty Diagnoses / Procedures Referred By Contact Refer red To Contact Diagnoses Malignant Neoplasm Of Pancreas Adenocarcinoma (HCC) Pain Cancer Associated Kota Sanches [facility] Procedures FL Celiac Plexus/Splanchnic Block Injection Tuan.Jersey, M.P.H. [address] [place] [phone] Referral ID Status Reason Start Date Expiration Date Visits Requ ested Visits Authorized [id number] Closed 09/16/2021 09/16/2022 1 1 Encounter Details Date Type Department Care Team Description 09/20/2021 - Hospital Encounter [facility] Mai Sanches D.O., M.P.H. [address] [place] [phone] Malignant Neoplasm Of Pancreatic Duct (H CC) (Primary Dx); 09/24/2021 Amelie Karimi Haixia, M.D., Ph.D. [address] [place] [phone] Malignant Neoplasm Of Pancreas Adenocarc inoma (HCC); [facility], M[facility] M[facility] [address] [place] [phone] Pain Cancer Associated; Miranda Butler M.D. [address] [place] [phone] Lightheadedness; Building, Fourth Hypotension Orthostatic Floor [address] [place] [address] Social History Tobacco Use Types [...] CDT DISCHARGE SUMMARY BRIEF OVERVIEW Discharge Hospital: [facility] Discharge Provider: Miranda Hyman M.D. Discharge Provider Team: Hospital Internal Medicine ([employer]) - [facility] Medicine ([facility]) Primary Care Providers: Elsewhere, Pcp (General) No [...] drinks 3x/day Estimated Needs: Total Calorie Needs: 1950-5421 (+ 500 calories per day for weight gain) calories/day Method to Estimate Energy Needs: Wyatt-Amagon (Basal + 20%) Weight Used for Equation [...] patient and refer for outpatient follow-up with garnett feeder re malnutrition as indicated 1. Continue florinef [...] care was discussed with Dr. Hyman, HIM alliances consultant. I saw and evaluated Azeb العراقي today and provided counseling bdws-[id number]-[id number] at bedside. I personallyspent a total of [...] AM CDT You were discharged from the [place] [address] ([facility]) Service. Please identify this service name if youcall with questions after hospitalization. [facility] experts agree: You should get a COVID-19 vaccine as soon as it's available to you. The vaccines that we???re recommending have been approved for safe use. [facility] will continue to coordinate with state and local governments on future vaccine distribution phases. o If your primary care provider is at [facility] and you plan to receive your vaccination at [facility], please ensure that you have activated your Patient Portal at [employer] to allow [facility] to communicate to you about the scheduling [...] dismissal summary completed by: Rhonda Melendez RDN, YKUNG Date Completed: 09/21/2021 Phone contact: Height: 167.6 cm Weight: 49.7 kg Admission Weight: 45.8 kg BMI (Calculated): 17.7 kg/m?? Diet Order: General with nutritional supplement drinks 3x/day Estimated Needs: Total Calorie Needs: 9028-3306 (+ 500 calories per day for weight gain) calories/day Method to Estimate Energy Needs: Wyatt-Amagon (Basal + 20%) Weight Used for Equation [...] this after visit summary to your appointment(s). [place], [place] October 05, 2021- Monday --11:00 am - Hospital Follow-Up with Dr. Kellye, primary care provider, at [facility] You may have outpatient appointments at [facility] that changed during your hospitalization. Refer to your [facility] Patient Visit Guide (PVG) for the most current schedule of appointments and detailed instructions of tests/procedures. Call [phone], if you did not receive an PVG or need to CANCEL any [facility] appointment(s). AttachmentsThe following attachments cannot be sent through Care Everywhere. Pantoprazole (By mouth) (Lebanese)Sodium Chloride (By mouth) (Lebanese) Fludrocortisone Acetate (By mouth) (Lebanese)documented in this encounter Medications at Time of [...] needed for pain Indications: Chronic Pain/Nonacute Pain. [id number]-copper-ma Take by mouth. 0 2020 tawana (Citracal-D3 [...] Leach P.A.-C. - 09/23/2021 10:25 AM CDT [place] [address] ([facility]) Progress Notes SUBJECTIVE Azeb العراقي is a [...] results, imaging and EMR. .??Bull??is hospitalized on [facility] Medicine 10 ([facility])??for evaluation and management of Hypotension Orthostatic, orthostatic [...] care was discussed with Dr. Hyman, HIM Mutual Fund Analyst. Counseling was provided rhbz-oa-dzlb at bedside. I personally spent over half of a total 35 minutes in counseling and coordination of care. ADDENDUM: 1400 -- Patient continues to have orthostasis. Curbsided Neurology, recommended continued treatment as benefit from Florinef will take longer. No need for further work-up at this time Yung Newell M.D. - 09/22/2021 11:24 AM CDT SUBJECTIVE I met and evaluated the patient with the [facility] inpatient Pain Service today. She is a [...] comorbidities and other medications. Our options include opo-yu-mgorclks dosed midodrine, Florinef, or Hamlin distinct mean. The latter has the advantage [...] s/p chemotherapy and radiation who presented to [place] [address] on 09/20/21 for a scheduled neurolytic celiac [...] not hesitate to??contact the Pain Service at [phone] ([facility] pager) if you have any questions or concerns??in the meantime. Livan Mobley, CA-1 [phone] Mikal Amaya - 09/22/2021 10:25 AM CDT Encounter: Initial Spiritual Care Support Situation: Mrs. العراقي was admitted for orthostatic hypotension. She greeted the cath lab radiological technologist warmly. She explained that ???what???s keeping me here is that I want to pass out when I stand up.?? This frustrates Mrs. العراقي, who wants ???to get back to the things I do while I still have time.?? Coping: Mrs. العراقي did show some sorrow and worry, and tears came to her eyes quietly during the conversation with the cath lab radiological technologist. She finds support from family and roman catholic, as well as from her . Family: Mrs. العراقي???s arrived about fifteen to twenty minutes into the conversation with thechaaspen. He brought a friendly presence. Conversation arsen to a close soon after. Tracey Tradition: Mrs. العراقي was raised Jainism, an after having met her , a Restoration, spent forty years more with the Lutherans, but now ???is visiting with the Methodists.?? At the close of the visit, Mrs. العراقي said, ???A prayer would be nice.?? The cath lab radiological technologist obliged. Plan: Will remain available for spiritual care as needed or requested. [facility] [phone] ([place]). Narciso Leach P.A.-C. - 09/22/2021 9:23 AM CDT [facility] Medicine 10 ([facility]) Progress Notes SUBJECTIVE Azeb العراقي is a [...] and EMR. Ms. العراقي is hospitalized on [facility] Medicine 10 ([facility]) for evaluation and management of Hypotension Orthostatic, [...] care was discussed with Dr. Berrios, HIM Mutual Fund Analyst. Counseling was provided aqgo-yx-kpdc at bedside. 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 Anthropometrics: Height: 167.6 cm Admission Weight: 45.8 kg (09/20/2021) Usual Body Weight: 57 kg (1.5 years ago) [place] Body Weight (Calculated) : 59.1 kg BMI (Calculated): 17.7 kg/m?? Weight Change History: 06/23/21: 51.7 kg; 09/20/21: 45.8 kg- loss of 11 % in 3 months Estimated Needs: Total Calorie Needs: 2743-5056 (+ 500 calories per day for weight gain) calories/day Method to Estimate Energy Needs: Wyatt-Amagon (Basal + 20%) Weight Used for Equation [...] about patient's nutritional care please contact pager [phone] on weekdays or [phone] on weekends/holidays. Narciso Leach P.A.-C. - 09/21/2021 10:42 AM CDT [facility] Medicine 10 ([facility]) Progress Notes SUBJECTIVE Azeb العراقي is a 81 y.o. female seen on [facility] 10 morning rounds. Patient admitted yesterday [...] and EMR. Ms. العراقي is hospitalized on [facility] 10 ([facility]) for evaluation and management of Hypotension Orthostatic, [...] care was discussed with Dr. Berrios, HIM Mutual Fund Analyst. Counseling was provided goub-eb-lhra at bedside. I personally spent over half [...] post chemotherapy and radiation who presented to [place] [address] on 09/20/2021 for scheduled neurolytic celiac plexus [...] our team's plan ofcare. Counseling was provided zzee-xe-przu at bedside regarding the plan of care as stated above. I personally spent over half of a total 20 minutes in counseling and coordination of care as documented above. documented in this encounter H&P Notes Thelma Quach M.B.B.S. - 09/20/2021 8:52 PM CDT [facility] Medicine 10 ([facility]) Admission Note SUBJECTIVE CHIEF COMPLAINT Lightheadedness after celiac plexus block HISTORY OF PRESENT ILLNESS Azeb العراقي is a 81 y.o. female with a past medical history of hypothyroidism on levothyroxine supplementation, locally advanced, node positive pancreatic adenocarcinoma status post chemotherapy with FOLFIRINOX and chemoradiation, which was completed in July of 2021, has been having intense abdominal pain stemming from pancreatic adenocarcinoma. As such, she had a celiac plexus block today and experienced postprocedure lightheadedness and hypotension- systolic blood pressures in 60 mm Hg. She received a couple of boluses of normal saline and is currently being admitted for overnight observation status. On arrival to the floor, she is hemodynamically stable and her systolic blood pressures are in 130 mmHg. She denied any headache, nausea, vomiting, shortness of breath, lightheadedness or dizziness. Says that her pain is very well controlled after the celiac plexus block. Her detailed oncologic history is outlined below. Oncology History Oncology History Malignant Neoplasm Of [...] periaortic, and mesenteric lymph nodes was reported ([facility] review). 3.) 05/25/2020 CA 19-9 178 [...] and the Common Hereditary Cancers panel from [employer] genetics lab. 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 06/08/2020 - Chemotherapy FOLFIRINOX ( Fluorouracil / Leucovorin / Irinotecan / Oxaliplatin ) Start Date: 06/08/2020 I have reviewed and updated the following: Past Medical History, Family History, Social History, andAllergies. Active Home Medications Medication Sig Taking diphenoxylate-atropine (LOMOTIL) 2.5-0.025 mg per tablet Take 1 tablet by mouth 4 (four) times a day. Yes levothyroxine (SYNTHROID, LEVOTHROID) 75 mcg tablet Yes lisinopriL (PRINIVIL,ZESTRIL) 20 mg tablet Take 20 mg by mouth. Yes loperamide (IMODIUM A-D) 2 mg capsule TAKE 2 CAPS AT ONSET OF DIARRHEA, THEN 1 CAP EVERY 2HRS UNTIL DIARRHEA FREE FOR 12HRS. MAY TAKE 2 CAPS EVERY 4HRS AT NIGHT Yes ondansetron (ZOFRAN) 8 mg tablet Take 1 tablet (8 mg total) by mouth every 8 (eight) hours as neededfor nausea or vomiting (unrelieved by prochlorperazine). Yes oxyCODONE (ROXICODONE) 5 mg immediate release tablet Take 5-10 mg by mouth every 4 (four) hours as needed. Yes prochlorperazine (COMPAZINE) 10 mg tablet TAKE ONE TABLET BY MOUTH EVERY 6 HOURS NEEDED FOR NAUSEA AND VOMITING Yes traMADoL (ULTRAM) 50 mg tablet Take 1-2 tablets (50-100 mg total) by mouth every 6 (six) hours as needed for pain Indications: Chronic Pain/Nonacute Pain. Yes tdtsyqz-D4-wvdo-copper-marlo (Citracal-D3 Maximum Plus) 325 mg-12.5 mcg -2.75 mg tablet Take by mouth. Taking 3-4 daily ESTRIOL MICRONIZED, BULK, MISC Three Times Weekly hydrocortisone (ANUSOL-HC) 25 mg suppository Insert 25 mg into the rectum. hydrocortisone (HYTONE) 2.5 % cream Apply topically. ketoconazole (NIZORAL) 2 % cream MASSAGE INTO TO AFFECTED AREA ON FEET 1-2X DAILY UNTIL RESOLVED lidocaine-prilocaine (EMLA) 2.5-2.5 % cream Apply 1 application topically as needed for pain (30 minutes prior to port access). Patient not taking: No sig reported magnesium oxide (MAG-OX) 400 mg (241.3 mg magnesium) tablet Take 400 mg by mouth. Taking 4 tablets daily metoclopramide (REGLAN) 5 mg tablet Take 1-2 tablets (5-10 mg) 2 to 3 times daily administered priorto meals. Patient not taking: No sig reported nystatin (MYCOSTATIN) 100,000 unit/mL suspension Take 5 mL (500,000 Units total) by mouth 4 (four) times a day. Swish in mouth and swallow. REVIEW OF SYSTEMS Pertinent items are noted in HPI; all other review of systems was negative. OBJECTIVE VITAL SIGNS Temperature: [36.7 ??C-37 ??C] 36.7 ??C Heart Rate: [73-115] 105 Resp Rate: [9-27] 22 Blood Pressure: (62-138)/(21-98) 135/80 SpO2: [93 %-100 %] 98 % Flow Rate (L/min): [2 L/min] 2 L/min Height: [167.6 cm] 167.6 cm Weight: [45.8 kg-49.7 kg] 49.7 kg BSA (Calculated - sq m): [1.52 sq meters] 1.52 sq meters BMI (Calculated): [17.7 kg/m??] 17.7 kg/m?? Pulse Rate: [73-110] 80 PHYSICAL EXAM GENERAL: Not in acute distress; has ECOG score of 2 LUNGS: Breathing comfortably on room air; Clear to auscultation bilaterally HEART: Pulse regular, non-tachycardic; Normal S1, S2 heard, no murmurs appreciated; ABDOMEN: Soft, non-tender, non-distended; Bowel sounds normal NEURO:Alert and oriented x3; No gross focal neurologic deficits SKIN: No new rashes/nodules ASSESSMENT / PLAN # Lightheadedness # Stage III (cT4, cN1, cM0) adenocarcinoma of the pancreatic head # Twenty four cycles of FOLFIRINOX completed June 16, 2021 s/p chemoradiation completed in July 2021 # 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 العراقي as she is admitted to Medicine Service for observation after celiac plexus block. In brief,is a 81 y.o. female with a past medical history of hypothyroidism on levothyroxine supplementation, locally advanced, node positive pancreatic adenocarcinoma status post chemotherapy with FOLFIRINOX and chemoradiation, which was completed in July of 2021, has been having intense abdominal pain stemming from pancreatic adenocarcinoma. As such, she had a celiac plexus block today and is currently being admitted to the medicine service for overnight observation as she experienced postprocedure lightheadedness and hypotension, which got better after a couple of boluses of normal saline. However, given the symptomatic hypotension she will be observed overnight in the hospitalwith the plan of discharge in a.m. if she remains clinically asymptomatic and maintains her blood pressures. Meanwhile, I will continue her home medications. Diet: Adult Diet Regular Tubes/lines: PIV VTE prophylaxis: enoxaparin Code status: Full Code Baseline Mobility: BMAT Level 4 (Able to stand and walk) Disposition: Home Counseling was provided nxdk-ju-hvgc at bedside regarding the plan of care as stated above. I personally spent over half of a total 100 minutes in counseling and coordination of care as documented above. documented in this encounter Procedure Notes Dillon [...] PROCEDURE SUMMARY Indications: Cancer pain Pre-procedural pain: 10 Post-procedural pain: 04/05 Site: advanced procedures Procedures: [...] fellow participated in the procedure, and the alliances consultant was present for the entire procedure. [...] Clinical Indicators/Risk Factors/Treatment: H&P by Thelma Quach M.B.BChicoSChico at 09/20/2021 - ''a 81 y.o. female [...] Fabiana Randolph R.N., CASPER, CCDS Clinical Documentation Counseling Services Director Query created by: Fabiana Randolph R.N., BSN, CCDS 10/01/2021 07:50 AM CDT </LCI> Documentation Clarification [...] Fabiana Randolph R.N., CASPER, CCDS Clinical Documentation Counseling Services Director Query created by: Fabiana Randolph R.N., BSN, [...] Not on filedocumented as of this encounter Procedures Procedure Name [...] Total Iron-Binding Capacity (09/24/2021 4:32 AM CDT) athologist Signature Iron 34 (L) 35 - [...] P.A.-C. LAB BLOOD ADD-ON Performing Organization Address City/State/[facility] Code Phon e Number [facility] - [address] [place], [place] [address] [facility] [place] [address] Laboratories-[facility] [address] (ABNORMAL) Basic Metabolic Panel (09/24/2021 4:32 AM CDT) athologist Signature Potassium, S 3.3 (L) 3.6 [...] 09/24/2021 DTL Black/ mL/min/BSA 5:34 AM CDT Georgian Comment: ----ADDITIONAL INFORMATION---- Estimated GFR calculated using [...] City/State/ZIP Code Phon e Number [facility] - [address] [place] [phone] [facility] [place] [address] [facility] 200 [facility] (ABNORMAL) CBC without Differential (09/24/2021 4:32 AM CDT) [facility] gist Method Time Signature Hemoglobin 8.1 (L) [...] City/State/ZIP Code Phon e Number [facility] - [address] [place] [phone] [facility] [place] [address] [facility] [address] [facility] (ABNORMAL) CBC without Differential (09/23/2021 4:59 AM CDT) [facility] gist Method Time Signature Hemoglobin 8.3 (L) [...] City/State/ZIP Code Phon e Number [facility] - [address] [place], [place] [address] [facility] [place] [address] [facility] [address] (ABNORMAL) Basic Metabolic Panel (09/23/2021 4:59 AM [...] DTL Nitrogen), S mg/dL 5:48 AM CDT Creatinine 0.65 0.59 - 09/23/2021 DTL 1.04 mg/dL 5:48 AM CDT eGFR-Non 85 >=60 09/23/2021 DTL Black/ mL/min/BSA 5:48 AM CDT Georgian Comment: ----ADDITIONAL INFORMATION---- Estimated GFR calculated using [...] Laterality Blood (Blood, 09/23/2021 4:59 AM 09/24/19 22 5:32 Venous) CDT AM CDT Narciso ShenC. LAB BLOOD ADD-ON Performing Organization Address City/State/ZIP Code Phon e Number [facility] - [address] [place] [address] Magnesium (09/23/2021 4:59 AM CDT) P athologist Signature Magnesium, S 2.0 1.7 - 2.3 09/23/2021 DTL mg/dL 5:48 AM CDT Specimen Anatomical Collection Method Collection Time Receive d Time (Source) Location / / Volume Laterality Blood (Blood, 09/23/2021 4:59 AM 09/24/19 22 5:32 Venous) CDT AM CDT Narciso Garcia-C. LAB BLOOD ADD-ON Performing Organization Address City/[facility] Phon e Number [facility] - [address] [place] [address] (TTE) 2D ECHO DOPPLER COLOR (09/22/2021 [...] 2:45 PM CDT There are no previous [facility] echocardiograms available for comparison. Anemia, thyrotoxicosis, or [...] pericardial effusion. Findings There are no previous [facility] echoca rdiograms available for comparison. Anemia, thyrotoxicosis, [...] Signature Ventricular Rate 90 BPM MUSE ECG/Min VT Interval 140 ms MUSE QRSD Interval 88 ms MUSE QT Interval 336 ms MUSE QTC Interval 411 ms MUSE P [place] 53 degrees MUSE R [place] 6 degrees MUSE T Wave [place] 79 degrees MUSE Specimen Anatomical Collection Method [...] Laterality Blood (Blood, 09/22/2021 8:47 AM 09/23/19 22 9:20 Venous) CDT AM CDT Narciso Leach P.A.-C. LAB BLOOD ADD-ON Performing Organization Address City/State/ZIP Code Phon e Number [facility] - [address] [place], [place] [address] [facility] [place] [address] [facility] [address] [facility] (ABNORMAL) Basic Metabolic Panel (09/22/2021 8:47 AM CDT) P athologist Signature Potassium, S 3.5 (L) 3.6 [...] 09/22/2021 DTL 9:42 AM CDT BUN (Blood Urea 8 6 - 21 09/22/2021 DTL Nitrogen), S mg/dL 9:42 AM CDT Creatinine 0.67 0.59 - 09/22/2021 DTL 1.04 mg/dL 9:42 AM CDT eGFR-Non 84 >=60 09/22/2021 DTL Black/ mL/min/BSA 9:42 AM CDT Georgian Comment: ----ADDITIONAL INFORMATION---- Estimated GFR calculated using [...] Laterality Blood (Blood, 09/22/2021 8:47 AM 09/23/19 22 9:20 Venous) CDT AM CDT Narciso Leach P.A.-C. LAB BLOOD ADD-ON Performing Organization Address City/State/[facility] Phon e Number [facility] - [address] [place], [place] [address] [facility] [place] [address] [facility] 200 [facility] (ABNORMAL) CBC without Differential (09/22/2021 8:47 AM CDT) Patholo gist Method Time Signature Hemoglobin 8.8 (L) [...] P.A.-C. LAB BLOOD ADD-ON Performing Organization Address City/[facility] Phon e Number [facility] - [address] [place], [place] [address] [facility] [place] [address] [facility] [address] [facility] Reticulocytes (09/22/2021 8:43 AM CDT) P athologist Signature Reticulocytes, B 1.43 0.60 - [...] City/State/ZIP Code Phon e Number [facility] - [address] [place], [place] [address] [facility] [place] [address] [facility] [address] [facility] (ABNORMAL) Basic Metabolic Panel (09/21/2021 7:43 AM CDT) P athologist Signature Potassium, S 3.4 (L) 3.6 [...] 09/21/2021 DTL 8:38 AM CDT BUN (Blood Urea 8 6 - 21 09/21/2021 DTL Nitrogen), S mg/dL 8:38 AM CDT Creatinine 0.65 0.59 - 09/21/2021 DTL 1.04 mg/dL 8:38 AM CDT eGFR-Non 85 >=60 09/21/2021 DTL Black/ mL/min/BSA 8:38 AM CDT Georgian Comment: ----ADDITIONAL INFORMATION---- Estimated GFR calculated using [...] Laterality Blood (Blood, 09/21/2021 7:43 AM 09/22/19 22 8:16 Venous) CDT AM CDT Narciso Leach P.A.-C. LAB BLOOD ADD-ON Performing Organization Address City/[facility] Phon e Number [facility] - [address] [place], [place] [address] [facility] DTL [address] (ABNORMAL) CBC without Differential (09/21/2021 7:43 AM CDT) Patholo gist Method Time Signature Hemoglobin 8.4 (L) [...] Laterality Blood (Blood, 09/21/2021 7:43 AM 09/22/19 22 7:52 Venous) CDT AM CDT Narciso Leach P.A.-C. LAB BLOOD ADD-ON Performing Organization Address City/State/[facility] Code Phon e Number [facility] - [address] [place], [place] [address] [facility] [place] [address] Creatinine with Estimated GFR (09/21/2021 12:34 AM CDT) P athologist Signature Creatinine 0.64 0.59 - 09/21/2021 DTL 1.04 mg/dL 1:16 AM CDT eGFR-Non 85 >=60 09/21/2021 DTL Black/ mL/min/BSA 1:16 AM CDT Georgian Comment: ----ADDITIONAL INFORMATION---- Estimated GFR calculated using [...] City/State/ZIP Code Phon e Number [facility] - [address] [place] [place] [address] [facility] [place] [address] [facility] 200 [facility] (ABNORMAL) CBC with Differential, Blood (09/21/2021 [...] Allen LAB BLOOD ADD-ON Performing Organization Address City/[facility] Phon e Number [facility] - [address] Folate (09/21/2021 12:31 AM CDT) athologist Signature Folate, S 17.5 >=4.0 mcg/L 09/22/2021 DTL 11:37 AM CDT Specimen Anatomical Collection Method Collection Time Receive d Time (Source) Location / / Volume Laterality Blood (Blood, 09/21/2021 12:31 09/22/2021 Venous) AM CDT 10:25 AM CDT Narciso Leach P.A.-C. LAB BLOOD ADD-ON Performing Organization Address City/[facility] Phon e Number [facility] - 200 [place], [place] [address] [place] [address] Vitamin B12 Assay (09/21/2021 12:31 AM CDT) athologist Signature Vitamin B12 [phone] 09/22/2021 DTL Assay, S ng/L 11:38 AM [...] P.A.-C. LAB BLOOD ADD-ON Performing Organization Address [facility] Phon e Number [facility] - [id number] [place] [address] VRE PCR (09/20/2021 8:01 PM CDT) [facility] gist Method Time Signature Specimen Swab, 09/22/2021 DTL Source Perirectal 10:53 PM CDT VRE PCR Negative Negative 09/22/2021 DTL 10:53 PM CDT Comment: ----ADDITIONAL INFORMATION---- This test was developed using an analyte specific reagent. Its performance characteristics were determined by [facility] in a manner consistent with CLIA requirements. This test has not bee n cleared or approved by the U.S. Food and Drug Administration. Specimen Anatomical Collection Method Collection Time Receive d Time (Source) Location / / Volume Laterality Varies 09/20/2021 8:01 PM 8:53 (Perirectal) CDT PM CDT Walt Kinsey M.D., Ph.D. LAB MICROBIOLOGY - GENERAL O RDERABLES Performing Organization Address City/[facility] Phon e Number [facility] - 200 [place], [place] [address] [place] [address] [facility]-[address] [place] Celiac Plexus/Splanchnic Block Injection (09/20/2021 [...] fellow participated in the procedure, and the alliances consultant was present for the entire procedure. [...] Given 09/23/2021 8:47 AM CDT 0.5 mcg bzniezn-K1-oeqp-copper-marlo 325 mg-12.5 Given 2021 8:55 AM CDT 3 tablets mcg -2.75 mg tablet 3 tablet 3 tablet, oral, Daily, First dose (after last modification) on Mon09/22/21 at 1800, Patient own med, RN to ID Given 09/23/2021 8:54 AM CDT 3 tablets Given 09/22/2021 6:13 PM CDT 3 tablets nywlldk-S2-kyts-copper-marlo 325 mg-12.5 mcg Given 09/22/2021 2 :32 [...] 1200, For 1 dose lactated ringers New 09/20/2021 5:33 PM CDT 20 mL/hr 20 mL/hr 20 mL/hr, intravenous, Continuous, Starting on Mon09/20/21 at 1045 09/20/2021 11:06 AM CDT 20 mL/hr 20 [...] magnesium sulfate in water IVPB 2 g 09/22/2021 11:31 AM CDT 2 g 25 [...] Daily, First dose on Mon09/23/21 at 0900 yuizibz-E0-hiip-copper-marlo 325 mg-12.5 mcg -2.75 mg tablet 3 tablet 1813 (Given - Provider: Ela Iniguez R.N.) 0854 (Given - Provider: Evan Emerson R.N.) 0855 (Given - Provider: Zheng Neal) 3 tablet, oral, Daily, First dose (after last modification) on Mon09/22/21 at 1800, Patient own med, RN to ID efzxtvq-I8-coqp-copper-marlo 325 mg-12.5 mcg -2.75 mg tablet (CANCELED) 1432 (Given - Provider: Dolly Gonzalez R.N.) oral, 3 times daily, First dose on Mon at 1400, Patient own med, RN to ID fludrocortisone tablet 0.1 mg (FLORINEF) 1426 (Given - Provider: Dolly Gonzalez R.N.) 0847 (Given - Provider: Evan J Klindt, R.N.) 0854 (Gi madonna - Provider: Adi Sanchez RChicoNChico) 0.1 mg, oral, Daily, First dose on Mon09/22/21 at 1315 heparin flush 500 Units 500 Units, intra-catheter, Every 7 days, First dose on Mon09/21/21 at 0900, Implanted Vascular Access Device (IVAD) Venous Non-Valved: When no infusion to maintain patency, following saline flush. levothyroxine tablet 75 mcg (SYNTHROID, LEVOTHROID) 06 38 (Given - Provider: Jairo Chacon R.N.) 0622 (Given - Provider: Maida Don R.N.) [...] magnesium oxide tablet 400 mg (MAG-OX) (CANCELED) 07 (Given - Provider: Dolly Gonzalez R.N.) 400 [...] (PROTONIX) 1055 (Given - Provider: Evan Emerson R.NChico) 0640 (Given - Provider: Lolly Jacobsen R.N.) 40 mg, oral, Daily before breakfast, Fir st dose on Mon09/23/21 at 1045, Swallow whole. Do NOT crush, chew, or split tablet. potassium chloride ER tablet 20 mEq (KLORCON/K-TAB) 0854 (Given - Provider: Adi Sanchez R.N.) 20 mEq, oral, Daily with breakfast, Firs [...] 1000 (Given - Pr ovider: Dolly Gonzalez R.N.)2126 (Given - Provider: Corine Henderson R.N.) 0854 [...] 0855 (Not Given - Provider: Adi hawley R.N. - Reason: Other) 3 mL, intravenous, Every 12 hours schedu led, First dose on Mon09/20/21 at 2100, Peripheral Intravenous Catheter and Rapid Infusion Catheter, when no infusion to maintain patency sodium chloride tablet 1 g (COMPLETED) 1000 (Given - P rovider: Dolly Gonzalez RChicoNChico) 1 g, oral, Once, On Mon09/22/21 at 0845, For 1 dose sodium chloride tablet 1 g 1813 (Given - Provider: Ela sullivan R.NChico) 0847 (Given - Provider: Evan Emerson RChicoN.)1226 (Given - Provider: Evan Emerson RChicoNChico)1731 (Given - Provider: Sharmila Aguiar RChicoNChico) 0854 (Given - Provider: Adi Sanchez RChicoNChico)1125 (Given - Provider: Adi Sanchez RKendall) 1 g, oral, 3 times daily with [...] (COMPLETED) 1408 (Given - Provider: Medina Mayer RKendall - Comment: patient DC) 500 Units, intra-catheter, [...] injection documented in this encounter Care Teams Habitat Biologist Relationship Specialty Start Date End Date Elsewhere, Pcp PCP - General Internal Medicine 09/24/21 documented as of this encounter
--- OUTSIDE RECORDS SUMMARY | 2021-11-15 12:17 | XMS_ITS | Encounter Summary ---
:1940 Author Organization [facility] Address [address] [place] [address] Care Team Providers Name Role Phone Aviva Laws APRN, C.N.P., M.S.N. Primary Care Provider +1 -[phone] Encounter Details Date Type Department Care Team Description 08/13/2021 Documentation Department of Radiation Yung Bills, Oncology in [facility] [address] [facility] [address] [place] [phone] (Wo rk) Social History Tobacco Use Types [...] Adenocarcinoma (HCC) Attending Physician: Yung Bills M.D. 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 [address] [address] documented as of this encounter
--- OUTSIDE RECORDS SUMMARY | 2021-11-15 12:18 | XMS_ITS | Encounter Summary ---
:1940 Author Organization [facility] Address [address] [place] [address] Care Team Providers Name Role Phone Aviva Laws APRN, C.N.P., M.S.N. Primary Care Provider +1 -[phone] Encounter Details Date Type Department Care Team Description 07/21/2021 Documentation Department of Radiation Sue Andino, RKendall Oncology in [place], [address] [place] [address] [address] [facility] [address] [place] [address] [phone] Social History Tobacco Use Types Packs/Day Years [...] her symptoms with Dr. Garcia's team at [facility]. They have recommended that she holds chemo [...] following references were used: nursing clinical judgement. [facility] Covid Algorithm documented in this [...] coordinate the care. For questions, contact the [place] Covid Care Team (CCT): Pager: [phone] In basket: P RST/[facility] COVID-19 POSITIVE Covid Care e-consult NOTE: At the time of testing, patients are instructed to obtain the result by calling the [employer] result line or by checking their online [...] (COVID-19) Antigen, Varies (07/19/2021 8:00 AM CDT) [facility] gist Method Time Signature EXT Home Presumptive Presumptive [...] documented as of this encounter Care Teams Dual Hose Cementer Relationship Specialty Start Date End Date Aviva Laws APRN, C.N.P., PCP - General Family Medicine 12/11/20 09/23/21 M.S.N. [address] [place] [address] documented as of this encounter
--- OUTSIDE RECORDS SUMMARY | 2021-11-15 12:18 | XMS_ITS | Encounter Summary ---
:1940 Author Organization [facility] Address [address] [place] [address] Care Team Providers Name Role Phone Veto Aviva Ruiz APRN, C.N.P., M.S.N. Primary Care Provider +1 -[phone] Reason for Visit Reason Comments Med Refill fuihur-tmswnear-yvnnxek Encounter Details Date Type Department Care Team Description 07/27/2021 Refill Department of Oncology Kimberly Rios, Med Refill in [facility] Kp cerrato APRN.Hossein., M.S. (opdrcg-qzbhllfy-zclgwwg [address] ) [place], [place] [address] [place], [place] [phone] (Wo rk) Social History Tobacco Use Types [...] documented as of this encounter Care Teams Bungy Jump Master Relationship Specialty Start Date End Date Aviva Laws, LENNOX, C.N.P., PCP - General Family Medicine 12/11/20 09/23/21 M.S.N. [address] [place] [address] documented as of this encounter
--- OUTSIDE RECORDS SUMMARY | 2021-11-15 12:18 | XMS_ITS | Encounter Summary ---
:1940 Author Organization [facility] Address [address] [place] [address] Care Team Providers Name Role Phone Veto Aviva Ruiz APRN C.N.P., M.S.N. Primary Care Provider +1 [phone] Reason for Visit Reason Comments Med Refill Encounter Details Date Type Department Care Team Description 07/28/2021 Refill Department of Radiation Jerrica Gray M.D. Med Refill Oncology in [place], [address] [place] [address] [address] [facility] [place] [address] [phone] Social History Tobacco Use Types Packs/Day Years [...] documented as of this encounter Care Teams Edger Hand Relationship Specialty Start Date End Date Aviva Laws, LENNOX, C.N.P., PCP - General Family Medicine 12/11/20 09/23/21 M.S.N. [address] [place] [address] documented as of this encounter
--- OUTSIDE RECORDS SUMMARY | 2021-11-15 12:18 | XMS_ITS | Encounter Summary ---
:1940 Author Organization [facility] Address [address] [place] [address] Care Team Providers Name Role Phone Aviva Laws APRN, C.N.P., M.S.N. Primary Care Provider +1 [phone] Encounter Details Date Type Department Care Team Description 07/21/2021 Clinical Communication Department of Infusion Jeanine Webb, Therapy in [facility] [address] [place] [address] Social History Tobacco Use Types [...] 5:32 PM CDT [facility] TELEPHONE COMMUNICATION NOTE Manager Dental: None The patient was called regarding a [...] your primary care provider or present to [facility] emergency department for evaluation. Treatment Options Discussion Bebtelovimab Bebtelovimab is a monoclonal antibody infusion that is an investigational medicine that has been authorized by the FDA for Emergency Use for treatment of vzjv-qn-piocisur COVID-19 in patients who are COVID positive [...] infusion reactions have occurred but are uncommon. [facility] has infused over 22,000 patients with a monoclonal antibody infusion,and we have not seen any serious side effects. Because monoclonal antibody infusions are still being studied, it is possible that not all of the risks are known at this time. Serious and unexpected side effects may happen. The medication is provided to [facility] at no charge and there is no cost of the medication to you. Any associated costs with the infusion will be billed to your insurance company. [facility] does not wantcost to be a barrier [...] we ask that you contact the hospital flanging operator at [phone] and be connected with the [place] COVID [facility] team doctor of the day for additional treatment options. Treatment Decision: The patient accepts treatment. IV Bebtelovimab: The patient consents to therapy. The IV therapy plan has been ordered per nurse protocol to the following [facility] infusion center: SEMN:[facility] [place] Side Effects and Fact Sheet for Patients, [...] Fact Sheet for Patients, Parents and Caregivers (https://www.fda.gov/media/714176/download) was provided via the online Portal and [...] references were used: Nursing or Provider judgement, [facility] workflow, [facility] Protocols Jeanine Webb R.N. documented in this encounter Plan of Treatment Not on filedocumented as of this encounter Visit Diagnoses Diagnosis COVID-19 Infection - Primary documented in this encounter Additional Health Concerns Infection Onset Date Last Indicated Resolved Time COVID19 07/19/2021 07/19/2021 08/08/2021 6:28 AM CDT documented as of this encounter Care Teams Trumpet Player Relationship Specialty Start Date End Date Aviva Laws, LENNOX, C.N.P., PCP - General Family Medicine 12/11/20 09/23/21 M.S.N. [address], [place] [address] documented as of this encounter
--- OUTSIDE RECORDS SUMMARY | 2021-11-15 12:18 | XMS_ITS | Encounter Summary ---
:1940 Author Organization [facility] Address [address] [place] [address] Care Team Providers Name Role Phone Aviva Laws APRN, C.N.P., M.S.N. Primary Care Provider +1 -[phone] Encounter Details Date Type Department Care Team Description 08/02/2021 Hospital Encounter Department of Radiation Vy Bills, Oncology in [facility] [address] [facility] [address] [place] [phone] Social History Tobacco Use Types Packs/Day Years [...] Sig Dispensed Refills Start Date End Date ohzekep-T4-pwdh-copper- Take by mouth. 0 05/20/19 21 mralo (Citracal-D3 Taking 3-4 daily Maximum Plus) 325 [...] documented as of this encounter Care Teams Mill Work Relationship Specialty Start Date End Date Aviva Laws APRN, C.N.P., PCP - General Family Medicine 12/11/20 09/23/21 M.S.NChico [address] [address] documented as of this encounter
--- OUTSIDE RECORDS SUMMARY | 2021-11-15 12:18 | XMS_ITS | Encounter Summary ---
:1940 Author Organization [facility] Address [address] [place] [address] Care Team Providers Name Role Phone Aviva Laws APRN, C.N.P., M.S.N. Primary Care Provider +1 -[phone] Encounter Details Date Type Department Care Team Description 07/26/2021 Hospital Encounter Department of Radiation Vy Bills, Oncology in [facility] [address] [facility] [address] [place] [phone] Social History Tobacco Use Types Packs/Day Years [...] Sig Dispensed Refills Start Date End Date iakffep-J8-cfnq-copper- Take by mouth. 0 05/20/19 21 marlo [...] 4 (four) times per tablet a day. hnwixv-gqkyyjbd-xhsvhmp Take 2 capsules by 360 capsule 3 [...] documented as of this encounter Care Teams Crane Crew Supervisor Relationship Specialty Start Date End Date Aviva Laws APRN, C.N.P., PCP - General Family Medicine 12/11/20 09/23/21 M.S.N. [address] [address] documented as of this encounter
--- OUTSIDE RECORDS SUMMARY | 2021-11-15 12:18 | XMS_ITS | Encounter Summary ---
:1940 Author Organization [facility] Address [address] [place] [address] Care Team Providers Name Role Phone Aviva Laws APRN, C.N.P., M.S.N. Primary Care Provider +1 -[phone] Encounter Details Date Type Department Care Team Description 07/28/2021 Hospital Encounter Department of Radiation Vy Bills, Oncology in [facility] [address] [facility] [address] [place] [phone] Social History Tobacco Use Types Packs/Day Years [...] Sig Dispensed Refills Start Date End Date vmlzyqx-O2-vtox-copper- Take by mouth. 0 05/20/19 21 marlo [...] documented as of this encounter Care Teams Senior Db2 Systems Programmer Relationship Specialty Start Date End Date Aviva Laws APRN, C.N.P., PCP - General Family Medicine 12/11/20 09/23/21 M.S.[place] [address] [address] documented as of this encounter
--- OUTSIDE RECORDS SUMMARY | 2021-11-15 12:18 | XMS_ITS | Encounter Summary ---
:1940 [address] [facility] Address [address] [place] [address] Care Team Providers Name Role Phone Aviva Laws APRN, C.N.P., M.S.N. Primary Care Provider +1 -[phone] Encounter Details Date Type Department Care Team Description 08/05/2021 Hospital Encounter Department of Radiation Vy Bills, Oncology in [facility] [address] [facility] [address] [place] [phone] Social History Tobacco Use Types Packs/Day Years [...] Sig Dispensed Refills Start Date End Date mzwbdmb-T1-ymrf-copper- Take by mouth. 0 05/20/19 21 marlo [...] documented as of this encounter Care Teams Exercise Equipment Specialist Relationship Specialty Start Date End Date Aviva Laws APRN, C.N.P., PCP - General Family Medicine 12/11/20 09/23/21 M.S.[place] [address] [address] documented as of this encounter
--- OUTSIDE RECORDS SUMMARY | 2021-11-15 12:18 | XMS_ITS | Encounter Summary ---
:1940 Author Organization [facility] Address [address] [place] [address] Care Team Providers Name Role Phone Aviva Laws APRN, C.N.P., M.S.N. Primary Care Provider +1 -[phone] Encounter Details Date Type Department Care Team Description 07/29/2021 Hospital Encounter Department of Radiation Vy Bills, Oncology in [facility] [address] [facility] [address] [place] [phone] Social History Tobacco Use Types Packs/Day Years [...] Sig Dispensed Refills Start Date End Date auxbsqd-L0-bgwz-copper- Take by mouth. 0 05/20/19 21 marlo [...] documented as of this encounter Care Teams Band Instrument Maker Relationship Specialty Start Date End Date Aviva Laws APRN, C.N.P., PCP - General Family Medicine 12/11/20 09/23/21 M[place] [address] [address] documented as of this encounter
--- OUTSIDE RECORDS SUMMARY | 2021-11-15 12:18 | XMS_ITS | Encounter Summary ---
:1940 Author Organization [facility] Address [address] [place] [address] Care Team Providers Name Role Phone Aviva Laws APRN, C.N.P., M.S.N. Primary Care Provider +1 -[phone] Encounter Details Date Type Department Care Team Description 07/27/2021 Hospital Encounter Department of Radiation Vy Bills, Oncology in [facility] [address] [facility] [address] [place] [address] [phone] Social History Tobacco Use Types Packs/Day Years [...] Sig Dispensed Refills Start Date End Date xamdqgt-O9-kxzp-copper- Take by mouth. 0 05/20/19 21 marlo [...] documented as of this encounter Care Teams Cattle Manager Relationship Specialty Start Date End Date Aviva Laws APRN, C.N.P., PCP - General Family Medicine 12/11/20 09/23/21 M.S.[place] [address] [place] [address] documented as of this encounter
--- OUTSIDE RECORDS SUMMARY | 2021-11-15 12:18 | XMS_ITS | Encounter Summary ---
:1940 Author Organization [facility] Address [address] [place] [address] Care Team Providers Name Role Phone Aviva Laws APRN C.N.P., M.S.N. Primary Care Provider +1 -[phone] Encounter Details Date Type Department Care Team Description 07/19/2021 Clinical Communication Department of Yung Bills Radiation Oncology [facility] [address] [facility] [address] [place] [phone] Social History Tobacco Use Types Packs/Day Years [...] 8:16 AM CDT Caller: Kayli, nurse @ [facility] Is there a valid authorization [...] on filedocumented in this encounter Care Teams Gymnastic Coach Relationship Specialty Start Date End Date Aviva Laws, SAFETY COMPANION, C.N.P., PCP - General Family Medicine 12/11/20 09/23/21 [place] [address], [place] [address] documented as of this encounter
--- OUTSIDE RECORDS SUMMARY | 2021-11-15 12:18 | XMS_ITS | Encounter Summary ---
:1940 Author Organization [facility] Address [address] [place] [address] Care Team Providers Name Role Phone Aviva Laws APRN C.N.P., M.S.N. Primary Care Provider +1 -[phone] Encounter Details Date Type Department Care Team Description 07/28/2021 Clinical Communication Department of Yung Bills Radiation Oncology [facility] [place] [address] [facility] [address] [place] [phone] Social History Tobacco Use Types Packs/Day Years [...] situation in case they call. Phone number: [phone] Is it okay to leave a voicemail on answering machine with test results? No Pharmacy (if medication related): [facility] [address] [facility] [address] [facility] [address] [facility] [address] [address] [facility] [place], [place] - [address] [facility] 601 [facility] [address] Dorothy Santana documented in this encounter Plan of Treatment Not on filedocumented as of this encounter Visit Diagnoses Not on filedocumented in this encounter Additional Health Concerns Infection Onset Date Last Indicated Resolved Time COVID19 07/19/2021 07/19/2021 08/08/2021 6:28 AM CDT documented as of this encounter Care Teams Stripper Apprentice Relationship Specialty Start Date End Date Aviva Laws, LENNOX, C.N.P., PCP - General Family Medicine 12/11/20 09/23/21 M.S.N. [address] [place] [address] documented as of this encounter
--- OUTSIDE RECORDS SUMMARY | 2021-11-15 12:18 | XMS_ITS | Encounter Summary ---
:1940 Author Organization [facility] Address [address] [place] [address] Care Team Providers Name Role Phone Veto Aviva Ruiz APRN, C.N.P., M.S.N. Primary Care Provider +1 -[phone] Reason for Visit Reason Comments Follow-up Encounter Details Date Type Department Care Team Description 07/26/2021 Clinical Communication Department of Radiation Christa Casey, Follow-up Oncology in [facility] [address] [facility] [address] [place] [address] [phone] Social History Tobacco Use Types Packs/Day Years [...] room today in management visit. Radiation Oncology [place] can be contacted at anytime for any [...] documented as of this encounter Care Teams Vibrator Equipment Tester Relationship Specialty Start Date End Date Aviva Laws APRN, C.N.P., PCP - General Family Medicine 12/11/20 09/23/21 M.S.N. [address] [place] [address] documented as of this encounter
--- OUTSIDE RECORDS SUMMARY | 2021-11-15 12:18 | XMS_ITS | Encounter Summary ---
:1940 Author Organization [facility] Address [address] [place] [address] Care Team Providers Name Role Phone Aviva Laws APRN, C.N.P., M.S.N. Primary Care Provider +1 -[phone] Encounter Details Date Type Department Care Team Description 08/04/2021 Hospital Encounter Department of Radiation Vy Bills, Oncology in [facility] [address] [facility] [address] [place] [address] [phone] Social History Tobacco Use Types Packs/Day Years [...] Sig Dispensed Refills Start Date End Date rxwvbqb-Q3-tpcl-copper- Take by mouth. 0 05/20/19 21 marlo [...] documented as of this encounter Care Teams Clinical Appeals Specialist Relationship Specialty Start Date End Date Aviva Laws APRN, C.N.P., PCP - General Family Medicine 12/11/20 09/23/21 M.S.[place] [address] [address] documented as of this encounter
--- OUTSIDE RECORDS SUMMARY | 2021-11-15 12:18 | XMS_ITS | Encounter Summary ---
:1940 Author Organization [facility] Address [address] [place] [address] Care Team Providers Name Role Phone Aviva Laws APRN, C.N.P., M.S.N. Primary Care Provider +1 -[phone] Encounter Details Date Type Department Care Team Description 07/30/2021 Hospital Encounter Department of Radiation Vy Bills, Oncology in [facility] [address] [facility] [address] [place] [address] [phone] Social History Tobacco Use Types Packs/Day Years [...] Sig Dispensed Refills Start Date End Date bnlyevm-U8-jbzi-copper- Take by mouth. 0 05/20/19 21 marlo [...] documented as of this encounter Care Teams Fresh Foods Clerk Relationship Specialty Start Date End Date Aviva Laws APRN, C.N.P., PCP - General Family Medicine 12/11/20 09/23/21 M[place] [address] [address] documented as of this encounter
--- OUTSIDE RECORDS SUMMARY | 2021-11-15 12:18 | XMS_ITS | Encounter Summary ---
:1940 Author Organization [facility] Address [address] [place] [address] Care Team Providers Name Role Phone Aviva Laws APRN C.NChicoPChico, M.S.N. Primary Care Provider +1 -[phone] Reason for Visit Reason Comments Outpatient Infusion Episode Based Medications (Routine) - Closed Specialty Diagnoses / Procedures Referred By Contact Refer red To Contact Diagnoses COVID-19 Infection [facility] Uriel Silva M.D., M.P.H. [address] [place] [address] [place] [address] Referral ID Status Reason Start Date Expiration Date Visits Requ ested Visits Authorized [id number] Closed 07/21/2021 07/21/2022 99 99 Encounter Details Date Type Department Care Team Description 07/22/2021 Infusion Department of Infusion Maximo COVID-19 Infection (Primary Dx); Therapy in [place], , Lv Silva M.D., Ma lignant Neoplasm Of Pancreas Adenocarcinoma (HCC) [place] M.P.[facility]. [address] [place] [phone] Social History Tobacco Use Types Packs/Day Years [...] at 1445, For 1 dose, Patient/caregiver factsheet: https://www.fda.gov/media/585182/d ownload Preparation: Remove vial from refrigerated storage [...] documented as of this encounter Care Teams Anesthesiology Physician Assistant Relationship Specialty Start Date End Date Aviva Laws APRN, C.N.P., PCP - General Family Medicine 12/11/20 09/23/21 M.S.N. [address], [place] [address] documented as of this encounter
--- OUTSIDE RECORDS SUMMARY | 2021-11-15 12:18 | XMS_ITS | Encounter Summary ---
:1940 Author Organization [facility] Address [address] [place] [address] Care Team Providers Name Role Phone Aviva Laws APRN, C.N.P., M.S.N. Primary Care Provider +1 -[phone] Encounter Details Date Type Department Care Team Description 08/03/2021 Hospital Encounter Department of Radiation Vy Bills, Oncology in [facility] [address] [facility] [address] [place] [address] [phone] Social History Tobacco Use Types Packs/Day Years [...] Sig Dispensed Refills Start Date End Date ikibbcg-Q4-vaxt-copper- Take by mouth. 0 05/20/19 21 marlo [...] documented as of this encounter Care Teams Outpatient Clerk Relationship Specialty Start Date End Date Aviva Laws APRN, C.N.P., PCP - General Family Medicine 12/11/20 09/23/21 [place] [address] [address] documented as of this encounter
--- OUTSIDE RECORDS SUMMARY | 2021-11-15 12:18 | XMS_ITS | Encounter Summary ---
:1940 Author Organization [facility] Address [address] [place] [address] Care Team Providers Name Role Phone Aviva Laws APRN, C.NChicoP., M.S.N. Primary Care Provider +1 -[phone] Encounter Details Date Type Department Care Team Description 07/19/2021 Clinical Communication Department of Jin Cash, Radiation Oncology in [place], M.SChico [facility] a [address] [facility] [address] [place] [address] [phone] Social History Tobacco Use Types Packs/Day Years [...] on filedocumented in this encounter Care Teams Adhesive Sprayer Relationship Specialty Start Date End Date Aviva Laws, LENNOX, C.N.P., PCP - General Family Medicine 12/11/20 09/23/21 M.S.N. [address] [place] [facility] [place] [address] documented as of this encounter
--- OUTSIDE RECORDS SUMMARY | 2021-11-15 12:18 | XMS_ITS | Encounter Summary ---
:1940 Author Organization [facility] Address [address] [place] [address] Care Team Providers Name Role Phone Aviva Laws APRN C.N[place]icoPChico, M.S.N. Primary Care Provider +1 -[phone] Reason for Referral Radiation Therapy (Routine) - Authorized Specialty Diagnoses / Procedures Referred By Contact Refer red To Contact Diagnoses Malignant Neoplasm Of Pancreas Adenocarcinoma (HCC) Yung Bills M.D. [facility] Procedures Management Visit [address] [place] [phone] Referral ID Status Reason Start Date Expiration Date Visits V isits Requested Authorized [id number] Authorized 06/22/2021 06/22/2022 10 10 Reason for Visit Radiation Therapy (Routine) - Authorized Specialty Diagnoses / Procedures Referred By Contact Refer red To Contact Diagnoses Malignant Neoplasm Of Pancreas Adenocarcinoma (HCC) Yung Bills M.D. [facility] Procedures Management Visit [address] [place] [phone] Referral ID Status Reason Start Date Expiration Date Visits V isits Requested Authorized [id number] Authorized 06/22/2021 06/22/2022 10 10 Encounter Details Date Type Department Care Team Description 07/26/2021 Hospital Encounter Department of Vi Bills Neoplasm Of Radiation Oncology Yung Phillips M.D. Pancreas Adenocarcinoma in [place] [address] [facility] (HCC) (Primary Dx) [place], [place] [address] [facility] [address] [place], [place] [phone] (Work) [phone] Social History Tobacco Use Types Packs/Day Years [...] Sig Dispensed Refills Start Date End Date zlvzbef-A1-okfc-copper- Take by mouth. 0 05/20/19 21 marlo [...] 4 (four) times per tablet a day. hpiokz-fwyewtoe-rksvhza Take 2 capsules by 360 capsule 3 [...] is being managed by Dr. Garcia at [facility]. She had a break from treatment from July 19, 2021 through July 25, 2021 because she tested positive for COVID-19 on July 19, 2021. Treatment Course: 1xPancreas Plan ID Fractions Dose / Fraction (cGy) Dose Treated (cGy) Dose Planned (cGy) First Treatment Last Treatment Elapsed Days T4Ijeqjtzj 200 2200 5000 07/05/2021 07/26/2021 21 Course [...] Yung Bills M.D. 07/26/2021 5:11 PM CDT [facility] [address] [place] [address] documented in this encounter Plan of Treatment [...] as of this encounter Care Teams Technical Customer Support Specialist Relationship Specialty Start Date End Date Aviva Laws, LENNOX, C.N.P., PCP - General Family Medicine 12/11/20 09/23/21 M.S.N. [address] [address] documented as of this encounter
--- OUTSIDE RECORDS SUMMARY | 2021-11-15 12:18 | XMS_ITS | Encounter Summary ---
:1940 Author Organization [facility] Address [address] [place] [address] Care Team Providers Name Role Phone Aviva Laws APRN, C.N.P., M.S.N. Primary Care Provider +1 -[phone] Encounter Details Date Type Department Care Team Description 07/16/2021 Hospital Encounter Department of Radiation Vy Bills, Oncology in [facility] [address] [facility] [address] [place] [phone] Social History Tobacco Use Types Packs/Day Years [...] Sig Dispensed Refills Start Date End Date fphwayj-B7-ymjb-copper- Take by mouth. 0 05/20/19 21 marlo [...] 4 (four) times per tablet a day. olpglo-axurjgss-kdchslc Take 2 capsules by 360 capsule 3 [...] on filedocumented in this encounter Care Teams Fruit Culler Relationship Specialty Start Date End Date Aviva Laws APRN, C.N.P., PCP - General Family Medicine 12/11/20 09/23/21 MChicoS.NChico [address] [place] [address] documented as of this encounter
--- OUTSIDE RECORDS SUMMARY | 2021-11-15 12:18 | XMS_ITS | Encounter Summary ---
:1940 Author Organization [facility] Address [address] [place] [address] Care Team Providers Name Role Phone Aviva Laws APRN C.NChicoP., M.S.N. Primary Care Provider +1 -[phone] Reason for Referral Radiation Therapy (Routine) - Authorized Specialty Diagnoses / Procedures Referred By Contact Refer red To Contact Diagnoses Malignant Neoplasm Of Pancreas Adenocarcinoma (HCC) Yung Bills M.D. [facility] Procedures Management Visit [address] [place] [address] Referral ID Status Reason Start Date Expiration Date Visits V isits Requested Authorized [id number] Authorized 06/22/2021 06/22/2022 10 10 Reason for Visit Radiation Therapy (Routine) - Authorized Specialty Diagnoses / Procedures Referred By Contact Refer red To Contact Diagnoses Malignant Neoplasm Of Pancreas Adenocarcinoma (HCC) Yung Bills M.D. [facility] Procedures Management Visit [address] [place] [address] Referral ID Status Reason Start Date Expiration Date Visits V isits Requested Authorized [id number] Authorized 06/22/2021 06/22/2022 10 10 Encounter Details Date Type Department Care Team Description 08/03/2021 Hospital Encounter Department of Ramón Bills M.D. [address] [place] [phone] Malignant Neoplasm Of Radiation Oncology Israel Andujar M.D. [address] [place] [address] Pancreas in [place], Adenocarcinom a (HCC) [place] [address] [place] [address] Social History Tobacco Use Types [...] Sig Dispensed Refills Start Date End Date cctmvbl-U5-uats-copper- Take by mouth. 0 05/20/19 21 marlo [...] is being managed by Dr. Garcia at [facility]. She had a break from treatment from July 19, 2021 through July 25, 2021 because she tested positive for COVID-19 on July 19, 2021. Treatment Course: 1xPancreas Plan ID Fractions Dose / Fraction (cGy) Dose Treated (cGy) Dose Planned (cGy) First Treatment Last Treatment Elapsed Days C2Irgwwmve 200 3400 5000 07/05/2021 08/03/2021 29 Course [...] continue with treatment as planned. Radiation Oncology [place] can be contacted at anytime for any questions or concerns. Signed by: Christa Casey R.N. 08/03/2021 4:55 PM CDT [facility] Rad[facility] [address] [place] [address] I have reviewed the notes of Christa [...] are not readily available, use a hand sleeve tailor with at least 60% alcohol. Avoid touching [...] documented as of this encounter Care Teams Wrapper Sizer Relationship Specialty Start Date End Date Aviva Laws APRN, C.N.P., PCP - General Family Medicine 12/11/20 09/23/21 M.S.N. [address] [address] documented as of this encounter
--- OUTSIDE RECORDS SUMMARY | 2021-11-15 12:19 | XMS_ITS | Encounter Summary ---
:1940 Author Organization [facility] Address [address] [place] [address] Care Team Providers Name Role Phone Aviva Laws APRN C.NChicoP., M.S.N. Primary Care Provider +1 -[phone] Reason for Referral Radiation Therapy (Routine) - Authorized Specialty Diagnoses / Procedures Referred By Contact Refer red To Contact Diagnoses Malignant Neoplasm Of Pancreas Adenocarcinoma (HCC) Yung Bills M.D. [facility] Procedures Management Visit [address] [place] [address] Referral ID Status Reason Start Date Expiration Date Visits V isits Requested Authorized [id number] Authorized 06/22/2021 06/22/2022 10 10 Reason for Visit Radiation Therapy (Routine) - Authorized Specialty Diagnoses / Procedures Referred By Contact Refer red To Contact Diagnoses Malignant Neoplasm Of Pancreas Adenocarcinoma (HCC) Yung Bills M.D. [facility] Procedures Management Visit [address] [place] [address] Referral ID Status Reason Start Date Expiration Date Visits V isits Requested Authorized [id number] Authorized 06/22/2021 06/22/2022 10 10 Encounter Details Date Type Department Care Team Description 07/13/2021 Hospital Encounter Department of Jerrica Gray Neoplasm Of Radiation Oncology [place]y Pina Pancreas in [place], [address] [facility] Adenocarcinoma (HCC) [place], [place] 18[address] [facility] [address] [place], [place] [phone] [address] (Work) [phone] Social History Tobacco Use Types Packs/Day Years [...] Sig Dispensed Refills Start Date End Date zaedzwk-F3-uanl-copper- Take by mouth. 0 05/20/19 21 marlo [...] 4 (four) times per tablet a day. qzzhds-cljacsep-jqgphqt Take 2 capsules by 360 capsule 3 [...] is being managed by Dr. Garcia at [facility]. Treatment Course: 1xPancreas Plan ID Fractions Dose / Fraction (cGy) Dose Treated (cGy) Dose Planned (cGy) First Treatment Last Treatment Elapsed Days [id number] 200 1400 5000 07/05/2021 07/13/2021 8 Course [...] (HCC) documented in this encounter Care Teams Medical Administrative Assistant Relationship Specialty Start Date End Date Aviva Laws APRN, C.N.P., PCP - General Family Medicine 12/11/20 09/23/21 M.S.N. [address] [place] [address] documented as of this encounter
--- OUTSIDE RECORDS SUMMARY | 2021-11-15 12:19 | XMS_ITS | Encounter Summary ---
:1940 Author Organization [facility] Address [address] [place] [address] Care Team Providers Name Role Phone Aviva Laws APRN CSusanna, M.S.N. Primary Care Provider +1 -[phone] Reason for Referral Outpatient (Routine) - Authorized Specialty Diagnoses / Procedures Referred By Contact Refer red To Contact Diagnoses Malignant Neoplasm Of Pancreas Adenocarcinoma (HCC) Deisi Vaughn P.A.-C., M.S. [address] [place] [phone] Referral ID Status Reason Start Expiration Visits Visits Date Date Requested Authorized [id number] Authorized Service not 07/12/2021 07/12/20[address] [facility] Encounter Details Date Type Department Care Team Description 07/12/2021 Orders Only Department of Deisi Vaughn, Malignant Israel plasm Of Radiation Oncology in [place], M .S. Pancreas Adenocarcinoma [facility] [address] [facility] (HCC) (Primary Dx) [address] [place] [phone] Social History Tobacco Use Types Packs/Day Years [...] 06/19/2021 organizations such as sabianist groups, unions, fraXtalic or athletic groups, or school groups? How [...] Primary documented in this encounter Care Teams Hydrography Teacher Relationship Specialty Start Date End Date Aviva Laws APRN, C.N.P., PCP - General Family Medicine 12/11/20 09/23/21 MChicoS.N. [address] [place] [address] documented as of this encounter
--- OUTSIDE RECORDS SUMMARY | 2021-11-15 12:19 | XMS_ITS | Encounter Summary ---
:1940 Author Organization [facility] Address [address] [place] [address] Care Team Providers Name Role Phone Aviva Laws APRN C.N.P., M.S.N. Primary Care Provider +1 -[phone] Reason for Visit Radiation Therapy (Routine) - Closed Specialty Diagnoses / Procedures Referred By Contact Refer red To Contact Diagnoses Malignant Neoplasm Of Pancreas Adenocarcinoma (HCC) Yung Bills M.D. [facility] Procedures Initial Rad Onc Treatment Planning CT Simulation [address] [place] [phone] Referral ID Status Reason Start Date Expiration Date Visits Requ ested Visits Authorized [id number] Closed 06/22/2021 06/22/2022 1 1 Encounter Details Date Type Department Care Team Description 06/28/2021 - Hospital Encounter Department of Ramón Bills M.D. [address] [place] [phone] Malignant Neoplasm Of 07/07/2021 Radiation Oncology Christa Casey R.N. [address] [place] [phone] Pancreas in [place] a (HCC) [place] (Primary Dx) [address] [place] [address] Social History Tobacco Use Types [...] Sig Dispensed Refills Start Date End Date rpgayfo-D0-rbda-copper-m Take by mouth. 0 021 angan (Citracal-D3 [...] 4 (four) per tablet times a day. esapxc-rgfdnsrq-ynwkezf Take 2 capsules by 360 capsule 3 [...] after an injection of iodinated contrast material, [id number] Lab Results Component Value Date CREATININE 0.81 [...] P athologist Signature EXT Creatinine 0.6 0.58 [facility] 1.05 mg/dL [facility] Specimen (Source) Anatomical Collection Method Collection Time Re ceived Time Location / / Volume Laterality Blood (Blood, 06/14/2021 7:30 AM Venous) CDT Narrative This result has an attachment that is no t available. Yung Bills M.D. LAB BLOOD ADD-ON Performing Organization Address City/State/ZIP Code Phon e Number [facility] [address] [place] [address] documented in this encounter Visit Diagnoses Diagnosis [...] mL documented in this encounter Care Teams Engineer Assistant Relationship Specialty Start Date End Date Aviva Laws APRN, C.N.P., PCP - General Family Medicine 12/11/20 09/23/21 M.S.N. [address] [address] documented as of this encounter
--- OUTSIDE RECORDS SUMMARY | 2021-11-15 12:19 | XMS_ITS | Encounter Summary ---
:1940 Author Organization [facility] Address [address] [place] [address] Care Team Providers Name Role Phone Aviva Laws APRN, C.N.P., M.S.N. Primary Care Provider +1 -[phone] Encounter Details Date Type Department Care Team Description 07/07/2021 Hospital Encounter Department of Radiation Vy Bills, Oncology in [facility] [address] [facility] [address] [place] [phone] Social History Tobacco Use Types Packs/Day Years [...] Sig Dispensed Refills Start Date End Date dtgdrkf-L2-qkav-copper-m Take by mouth. 0 021 angan (Citracal-D3 [...] 4 (four) per tablet times a day. myffwh-djbokjrp-nkwfval Take 2 capsules by 360 capsule 3 [...] on filedocumented in this encounter Care Teams Sales Representative Raw Fibers Relationship Specialty Start Date End Date Aviva Laws, LENNOX, C.N.P., PCP - General Family Medicine 12/11/20 09/23/21 Anisa [address] [place] [address] documented as of this encounter
--- OUTSIDE RECORDS SUMMARY | 2021-11-15 12:19 | XMS_ITS | Encounter Summary ---
:1940 Author Organization [facility] Address [address] [place] [address] Care Team Providers Name Role Phone Veto Aviva Ruiz APRN, C.N.P., M.S.N. Primary Care Provider +1 -[phone] Encounter Details Date Type Department Care Team Description 07/12/2021 Orders Only Department of Radiation Jin Cash M .D., Oncology in [facility] [address] [facility] [address] [place] [address] [phone] (Wo rk) Social History Tobacco Use Types [...] documented as of this encounter Care Teams Credit Control Administrator Relationship Specialty Start Date End Date Aviva Laws, LENNOX, C.N.P., PCP - General Family Medicine 12/11/20 09/23/21 M.S.N. [address] [place] [address] documented as of this encounter
--- OUTSIDE RECORDS SUMMARY | 2021-11-15 12:19 | XMS_ITS | Encounter Summary ---
:1940 Author Organization [facility] Address [address] [place] [address] Care Team Providers Name Role Phone Aviva Laws APRN, C.N.P., M.S.N. Primary Care Provider +1 -[phone] Encounter Details Date Type Department Care Team Description 07/14/2021 Hospital Encounter Department of Radiation Vy Bills, Oncology in [facility] [address] [facility] [address] [place] [phone] Social History Tobacco Use Types Packs/Day Years [...] Sig Dispensed Refills Start Date End Date gyzowfz-G5-snda-copper- Take by mouth. 0 05/20/19 21 marlo [...] 4 (four) times per tablet a day. xretzi-gvqcwzla-vfipigd Take 2 capsules by 360 capsule 3 [...] on filedocumented in this encounter Care Teams International Relations Teacher Relationship Specialty Start Date End Date Aviva Laws APRN, C.N.P., PCP - General Family Medicine 12/11/20 09/23/21 M[place]icoS.N[place] [address] [place] [address] documented as of this encounter
--- OUTSIDE RECORDS SUMMARY | 2021-11-15 12:19 | XMS_ITS | Encounter Summary ---
:1940 Author Organization [facility] Address [address] [place] [address] Care Team Providers Name Role Phone Aviva Laws APRN C.N.P., M.S.N. Primary Care Provider +1 -[phone] Reason for Referral Radiation Therapy (Routine) - Closed Specialty Diagnoses / Procedures Referred By Contact Refer red To Contact Diagnoses Malignant Neoplasm Of Pancreas Adenocarcinoma (HCC) Yung Bills M.D. [facility] Procedures Verification/Re-Sim Verification/Re-Sim [address] [place] [phone] Referral ID Status Reason Start Date Expiration Date Visits Requ ested Visits Authorized [id number] Closed 07/09/2021 07/09/2022 1 1 Reason for Visit Radiation Therapy (Routine) - Closed Specialty Diagnoses / Procedures Referred By Contact Refer red To Contact Diagnoses Malignant Neoplasm Of Pancreas Adenocarcinoma (HCC) Yung Bills M.D. [facility] Procedures Verification/Re-Sim Verification/Re-Sim [address] [place] [phone] Referral ID Status Reason Start Date Expiration Date Visits Requ ested Visits Authorized [id number] Closed 07/09/2021 07/09/2022 1 1 Encounter Details Date Type Department Care Team Description 07/14/2021 Hospital Encounter Department of Vi Bills Neoplasm Of Radiation Oncology Yung Phillips M.D. Pancreas Adenocarcinoma in [place], [address] [facility] (HCC) [place], [place] [address] [facility] [address] [place], [place] [phone] (Work) [phone] Social History Tobacco Use Types Packs/Day Years [...] Sig Dispensed Refills Start Date End Date ckmmhxv-S9-qdaa-copper- Take by mouth. 0 05/20/19 21 marlo [...] 4 (four) times per tablet a day. jgfouz-lmsjprph-cubdshs Take 2 capsules by 360 capsule 3 [...] planning. CT images were transferred to the [employer] treatment planning system. Verification treatment planning will take place prior to treatment delivery as directed by physician. Patient set up and imaging was appropriate and completed without incident. Drying Tumbler Operator use: No documented in this encounter Plan [...] Time Received Time / Laterality Volume Narrative [facility] - 07/14/2021 3:12 PM CDT Christine Chau RTT ? 07/14/2021 ??3:13 PM Verification/Re-Sim Date/Time: 07/14/2021 3:12 PM Performed by: Yung Bills M.D. Authorized by: Yung Bills M.D. Yung Bills M.D. RADIATION ONCOLOGY ORDERABLE S Performing Organization Address City/State/ZIP Code Phon e Number [place] JOSE ANGEL [place] ANG[place] na documented in this encounter Visit Diagnoses Diagnosis Malignant Neoplasm Of Pancreas Adenocarc inoma (HCC) documented in this encounter Care Teams Pick Up Driver Relationship Specialty Start Date End Date Aviva Laws APRN, C.N.P., PCP - General Family Medicine 12/11/20 09/23/21 M.S.N. [address] [phone] documented as of this encounter
--- OUTSIDE RECORDS SUMMARY | 2021-11-15 12:19 | XMS_ITS | Encounter Summary ---
:1940 Author Organization [facility] Address [address] [place] [address] Care Team Providers Name Role Phone Aviva Laws APRN C.NChicoP., M.S.N. Primary Care Provider +1 -[phone] Reason for Referral Specialty Diagnoses / Procedures Referred By Contact Refer red To Contact Deisi Vaughn P.A.-C ., M.S. [facility] [address] [place] [phone] Referral ID Status Reason Start Date Expiration Date Visits Requ ested Visits Authorized Encounter Details Date Type Department Care Team Description 07/15/2021 Hospital Encounter Department of Ramón Bills M.D. [address] [place] [address] [phone] Malignant Neoplasm Of Radiation Oncology Ofelia Andino, R.NChico [address] [place] [address] [phone] Pancreas Adenocarcinoma in [place], (HCC) [place] [address] [place] [address] Social History Tobacco Use Types [...] Sig Dispensed Refills Start Date End Date ctmylyu-U2-kmdv-copper- Take by mouth. 0 05/20/19 21 marlo [...] 4 (four) times per tablet a day. cwzzuf-yoqbmaxx-kplqmtf Take 2 capsules by 360 capsule 3 [...] Pancreas Occurrences education visit Adenocarcinoma (HCC) star tingael 07/15/2021 (clinic) until 2 documented as of this encounter Visit Diagnoses Diagnosis Malignant Neoplasm Of Pancreas Adenocarc inoma (HCC) documented in this encounter Care Teams Profiler Relationship Specialty Start Date End Date Aviva Laws APRN, C.N.P., PCP - General Family Medicine 12/11/20 09/23/21 M.S.N. [address] [phone] documented as of this encounter
--- OUTSIDE RECORDS SUMMARY | 2021-11-15 12:19 | XMS_ITS | Encounter Summary ---
:1940 Author Organization [facility] Address [address] [place] [address] Care Team Providers Name Role Phone Aviva Laws APRN, C.N.P., M.S.N. Primary Care Provider +1 -[phone] Encounter Details Date Type Department Care Team Description 07/12/2021 Hospital Encounter Department of Radiation Vy Bills, Oncology in [facility] [address] [facility] [address] [place] [address] [phone] Social History Tobacco Use Types Packs/Day Years [...] Sig Dispensed Refills Start Date End Date eyqtokk-H7-acuj-copper-m Take by mouth. 0 021 angan (Citracal-D3 [...] 4 (four) per tablet times a day. wfcivi-cipqavgz-ffzztdg Take 2 capsules by 360 capsule 3 [...] on filedocumented in this encounter Care Teams Police Detective Relationship Specialty Start Date End Date Aviva Laws, LENNOX, C.N.P., PCP - General Family Medicine 12/11/20 09/23/21 Anisa [address] [place] [phone] documented as of this encounter
--- OUTSIDE RECORDS SUMMARY | 2021-11-15 12:19 | XMS_ITS | Encounter Summary ---
:1940 Author Organization [facility] Address [address] [place] [address] Care Team Providers Name Role Phone Aviva Laws APRN, C.N.P., M.S.N. Primary Care Provider +1 -[phone] Encounter Details Date Type Department Care Team Description 07/13/2021 Hospital Encounter Department of Radiation Vy Bills, Oncology in [facility] [address] [facility] [address] [place] [phone] Social History Tobacco Use Types Packs/Day Years [...] Sig Dispensed Refills Start Date End Date mnajszj-B4-qnps-copper- Take by mouth. 0 05/20/19 21 mralo [...] 4 (four) times per tablet a day. kygiej-njwkvslp-nzixllj Take 2 capsules by 360 capsule 3 [...] on filedocumented in this encounter Care Teams Natural Resource Officer Relationship Specialty Start Date End Date Aviva Laws APRN, C.N.P., PCP - General Family Medicine 12/11/20 09/23/21 M.S.N. [address] [place] [phone] documented as of this encounter
--- OUTSIDE RECORDS SUMMARY | 2021-11-15 12:19 | XMS_ITS | Encounter Summary ---
:1940 Author Organization [facility] Address [address] [place] [address] Care Team Providers Name Role Phone Aviva Laws APRN C.N.P., M.S.N. Primary Care Provider +1 -[phone] Reason for Referral Outpatient (Routine) - Authorized Specialty Diagnoses / Procedures Referred By Contact Refer red To Contact Radiation Oncology Yung Bills M .D. [facility] [address] [address] Referral ID Status Reason Start Date Expiration Date Visits V isits Requested Authorized [id number] Authorized 06/22/2021 06/22/2022 10 10 Reason for Visit Outpatient (Routine) - Authorized Specialty Diagnoses / Procedures Referred By Contact Refer red To Contact Radiation Oncology Yung Bills M .D. [facility] [address] [phone] Referral ID Status Reason Start Date Expiration Date Visits V isits Requested Authorized [id number] Authorized 06/22/2021 06/22/2022 10 10 Encounter Details Date Type Department Care Team Description 07/14/2021 - Hospital Encounter Department of Ramón Bills M.D. [address] [place] [phone] Malignant Neoplasm Of 07/16/2021 Radiation Oncology Christa Casey R.N. [address] [place] [phone] Pancreas in [facility] [place] (Primary Dx) [address] [place] [phone] Social History Tobacco Use Types Packs/Day Years [...] Sig Dispensed Refills Start Date End Date wstlqsn-C5-ndqw-copper- Take by mouth. 0 05/20/19 21 marlo [...] 4 (four) times per tablet a day. eyqtjy-zswwoblj-cdzpwue Take 2 capsules by 360 capsule 3 [...] Treatment Scheduled Referrals Name Type Priority Associated Order [...] P athologist Signature EXT Creatinine 0.5 mg/dL [facility] Specimen (Source) Anatomical Collection Method Collection Time Re ceived Time Location / / Volume Laterality Blood (Blood, 07/12/2021 12:30 Venous) PM CDT Narrative This result has an attachment that is no t available. Historical Provider LAB BLOOD ADD-ON Performing Organization Address City/State/ZIP Code Phon e Number [facility] [address] [place] [address] documented in this encounter Visit Diagnoses Diagnosis [...] mL documented in this encounter Care Teams Hand Striper Relationship Specialty Start Date End Date Aviva Laws APRN, C.N.P., PCP - General Family Medicine 12/11/20 09/23/21 M.S.N. [address] [phone] documented as of this encounter
--- OUTSIDE RECORDS SUMMARY | 2021-11-15 12:19 | XMS_ITS | Encounter Summary ---
:1940 Author Organization [facility] Address [address] [place] [address] Care Team Providers Name Role Phone Aviva Laws APRN, C.N.P., M.S.N. Primary Care Provider +1 -[phone] Encounter Details Date Type Department Care Team Description 07/08/2021 Hospital Encounter Department of Radiation Vy Bills, Oncology in [facility] [address] [facility] [address] [place] [address] [phone] Social History Tobacco Use Types Packs/Day Years [...] Sig Dispensed Refills Start Date End Date zsjxksh-P7-hagg-copper-m Take by mouth. 0 021 angan (Citracal-D3 [...] 4 (four) per tablet times a day. vavmhw-lwrrdlkb-jpeujru Take 2 capsules by 360 capsule 3 [...] on filedocumented in this encounter Care Teams Pediatric Social Worker Relationship Specialty Start Date End Date Aviva Laws, LENNOX, C.N.P., PCP - General Family Medicine 12/11/20 09/23/21 Anisa [address] [place] [phone] documented as of this encounter
--- OUTSIDE RECORDS SUMMARY | 2021-11-15 12:19 | XMS_ITS | Encounter Summary ---
:1940 Author Organization [facility] Address [address] [place] [address] Care Team Providers Name Role Phone Aviva Laws APRN, C.N.P., M.S.N. Primary Care Provider +1 -[phone] Encounter Details Date Type Department Care Team Description 07/15/2021 Hospital Encounter Department of Radiation Vy Bills, Oncology in [facility] [address] [facility] [address] [place] [address] [phone] Social History Tobacco Use Types Packs/Day Years [...] Sig Dispensed Refills Start Date End Date rruuqhf-A4-okjd-copper- Take by mouth. 0 05/20/19 21 marlo [...] 4 (four) times per tablet a day. oolkoa-nbfgdrkx-vcxtxzy Take 2 capsules by 360 capsule 3 [...] on filedocumented in this encounter Care Teams Mud Mixer Relationship Specialty Start Date End Date Aviva Laws APRN, C.N.P., PCP - General Family Medicine 12/11/20 09/23/21 MChicoS.NChico [address] [place] [phone] documented as of this encounter
--- OUTSIDE RECORDS SUMMARY | 2021-11-15 12:19 | XMS_ITS | Encounter Summary ---
:1940 Author Organization [facility] Address [address] [place] [address] Care Team Providers Name Role Phone Aviva Laws APRN C.N.P., M.S.N. Primary Care Provider +1 -[phone] Reason for Referral Radiation Therapy (Routine) - Closed Specialty Diagnoses / Procedures Referred By Contact Refer red To Contact Diagnoses Malignant Neoplasm Of Pancreas Adenocarcinoma (HCC) Yung Bills M.D. [facility] Procedures Verification/Re-Sim Verification/Re-Sim [address] [place] [address] [phone] Referral ID Status Reason Start Date Expiration Date Visits Requ ested Visits Authorized [id number] Closed 07/09/2021 07/09/2022 1 1 Encounter Details Date Type Department Care Team Description 07/09/2021 Hospital Encounter Department of Vi Bills Neoplasm Of Radiation Oncology Yung Phillips M.D. Pancreas Adenocarcinoma in [place], [address] [place] [address] (HCC) (Primary Dx) [place], [place] 1821 [facility] [address] [place], [place] [phone] (Work) [phone] Social History Tobacco Use Types Packs/Day Years [...] 06/19/2021 organizations such as hindu groups, unions, fraRushFiles or athletic groups, or school groups? How [...] Sig Dispensed Refills Start Date End Date ygyalxe-O1-jfut-copper-m Take by mouth. 0 021 angan (Citracal-D3 [...] 4 (four) per tablet times a day. amuuze-yeexisnp-twfzoyk Take 2 capsules by 360 capsule 3 [...] Not on filedocumented as of this encounter Results Verification/Re-Sim (07/14/2021 3:12 PM CDT) Specimen (Source) Anatomical Location Collection Method / Collectio n Time Received Time / Laterality Volume Narrative [facility] JO[facility]GEL - 07/14/2021 3:12 PM CDT Christine Chau, RTT ? 07/14/2021 ??3:13 PM Verification/Re-Sim Date/Time: 07/14/2021 3:12 PM Performed by: Yung Bills M.D. Authorized by: Yung Bills M.D. Yung Bills M.D. RADIATION ONCOLOGY ORDERABLE S Performing Organization Address City/State/ZIP Code Phon e Number [place] JOSE ANGEL [place] JOSE ANG[place] na documented in this encounter Visit Diagnoses Diagnosis Malignant Neoplasm Of Pancreas Adenocarc inoma (HCC) - Primary Malignant Neoplasm Of Pancreas Adenocarc inoma (HCC) documented in this encounter Care Teams Fuel Management Handler Relationship Specialty Start Date End Date Aviva Laws APRN, C.N.P., PCP - General Family Medicine 12/11/20 09/23/21 M.S.N. [address] [phone] documented as of this encounter
--- OUTSIDE RECORDS SUMMARY | 2021-11-15 12:19 | XMS_ITS | Encounter Summary ---
:1940 Author Organization [facility] Address [address] [place] [address] Care Team Providers Name Role Phone Aviva Laws APRN C.NChicoP., M.S.N. Primary Care Provider +1 -[phone] Reason for Referral Radiation Therapy (Routine) - Authorized Specialty Diagnoses / Procedures Referred By Contact Refer red To Contact Diagnoses Malignant Neoplasm Of Pancreas Adenocarcinoma (HCC) Yung Bills M.D. [facility] Procedures Management Visit [address] [place] [phone] Referral ID Status Reason Start Date Expiration Date Visits V isits Requested Authorized [id number] Authorized 06/22/2021 06/22/2022 10 10 Reason for Visit Radiation Therapy (Routine) - Authorized Specialty Diagnoses / Procedures Referred By Contact Refer red To Contact Diagnoses Malignant Neoplasm Of Pancreas Adenocarcinoma (HCC) Yung Bills M.D. [facility] Procedures Management Visit [address] [place] [phone] Referral ID Status Reason Start Date Expiration Date Visits V isits Requested Authorized [id number] Authorized 06/22/2021 06/22/2022 10 10 Encounter Details Date Type Department Care Team Description 07/06/2021 Hospital Encounter Department of Vi Bills Neoplasm Of Radiation Oncology Yung Phillips M.D. Pancreas Adenocarcinoma in [place], [address] [facility] (HCC) [place], [place] 1821 [facility] [address] [place], [place] [phone] (Work) [phone] Social History Tobacco Use Types Packs/Day Years [...] Sig Dispensed Refills Start Date End Date xtyihks-L0-ychi-copper-m Take by mouth. 0 021 angan (Citracal-D3 [...] 4 (four) per tablet times a day. ktmoao-guashkht-knrjmko Take 2 capsules by 360 capsule 3 [...] Adenocarcinoma (HCC) SUPERVISED BY: Yung Bills M.D. ([id number]) HISTORY OF PRESENT ILLNESS Azeb العراقي is a 81 y.o. 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 She is now undergoing radiotherapy with concurrent oral capecitabine. Chemotherapy is being managed by Dr. Garcia at [facility]. Treatment Course: 1xPancreas Plan ID Fractions Dose / Fraction (cGy) Dose Treated (cGy) Dose Planned (cGy) First Treatment Last Treatment Elapsed Days [id number] 07/05/2021 07/06/2021 1 Course Summary 07/05/2021 07/06/2021 [...] Yung Bills M.D. 07/06/2021 10:27 PM CDT [facility] [address] [place] [address] documented in this encounter Miscellaneous Notes Addendum [...] (HCC) documented in this encounter Care Teams Rn Family Relationship Specialty Start Date End Date Aviva Laws APRN, C.N.P., PCP - General Family Medicine 12/11/20 09/23/21 M.S.NChico [address] [phone] documented as of this encounter
--- OUTSIDE RECORDS SUMMARY | 2021-11-15 12:20 | XMS_ITS | Encounter Summary ---
:1940 Author Organization [facility] Address [address] [place] [address] Care Team Providers Name Role Phone Aviva Laws APRN, C.N.P., M.S.N. Primary Care Provider +1 -[phone] Reason for Referral Outpatient (Routine) - Closed Specialty Diagnoses / Procedures Referred By Contact Refer red To Contact Diagnoses Malignant Neoplasm Of Pancreas Adenocarcinoma (HCC) Neutropenia Chemotherapy Induced (HCC) Hyperbilirubinemia [facility] Procedures ERCP C.N.P., M.S. 200 [place], [place] [address] Referral ID Status Reason Start Date Expiration Date Visits Requ ested Visits Authorized [id number] Closed 01/18/2021 01/18/2022 1 1 Reason for Visit Outpatient (Routine) - Closed Specialty Diagnoses / Procedures Referred By Contact Refer red To Contact Diagnoses Malignant Neoplasm Of Pancreas Adenocarcinoma (HCC) Neutropenia Chemotherapy Induced (HCC) Hyperbilirubinemia Kimberly Rios APRN, [facility] Procedures ERCP C.N.P., M.S. 200 [place] [address] Referral ID Status Reason Start Date Expiration Date Visits Requ ested Visits Authorized [id number] Closed 01/18/2021 01/18/2022 1 1 Encounter Details Date Type Department Care Team Description 01/26/2021 Hospital Division of Kimberly Rios APRN, C.N.P., M.S. [address] [place] [phone] Malignant Neoplasm Of Pancreas Adenocarc inoma (HCC); Encounter Gastroenterology in Gloria Lopez APRN, CRNA, D.N.P. [address] [place] [address] Neutropenia Chemotherapy Induced (HCC); [place], [place] Hyperbilirubinemia [address] [place] [address] Social History Tobacco Use Types [...] Sig Dispensed Refills Start Date End Date rahsnpc-Q2-atru-copper-m Take by mouth. 0 021 angan (Citracal-D3 [...] 4 (four) per tablet times a day. yfrbco-ogzwyrtx-jqhezmy Take 2 capsules by 360 capsule 3 [...] Volume Laterality 01/26/2021 12:34 PM CDT Impressions [facility] - 01/26/2021 3:22 PM CDT Post-op [...] bile duct and drainage promptly ensued.. Narrative [facility] - 01/26/2021 3:22 PM CDT Gonda [...] hr for 5 days. Findings: ? The rivet sticker film was normal. The es ophagus was [...] with a short ? angled hydrophilic (Navipro) kat das was prompt. Contrast demonstrated ? the main [...] Initiated On: 01/26/2021 12:34 PM Kimberly Rios APRN C.N.P., M.S. GI PROCEDURE ORDER DANIEL Performing Organization Address City/State/ZIP Code Phon e Number [facility] NA documented in this encounter Visit [...] discharge. documented in this encounter Care Teams Certified Physician'S Assistant Relationship Specialty Start Date End Date Aviva Laws APRN, C.N.P., PCP - General Family Medicine 12/11/20 09/23/21 M.S.N. [address] [phone] documented as of this encounter
--- OUTSIDE RECORDS SUMMARY | 2021-11-15 12:20 | XMS_ITS | Encounter Summary ---
:1940 Author Organization [facility] Address [address] [place] [address] Care Team Providers Name Role Phone Aviva Laws APRN, C.N.P., M.S.N. Primary Care Provider +1 -[phone] Reason for Visit Reason Comments Med Refill dexAMETHasone Encounter Details Date Type Department Care Team Description 03/13/2021 Refill Department of Oncology [facility] R efill (dexAMETHasone in [facility].B.B[facility]S. ) [address] [place] [address] [place] [phone] [place], [place] [phone] Social History Tobacco Use Types Packs/Day Years [...] Preethi Shi C.Ph.T. - 03/15/2021 7:29 AM MANAGER SAFE Surescripts created refill request. GER SAFE documented in this encounter Plan of Treatment Not on filedocumented as of this encounter Visit Diagnoses Diagnosis Malignant Neoplasm Of Pancreas Adenocarc inoma (HCC) documented in this encounter Care Teams Derrick Boat Captain Relationship Specialty Start Date End Date Aviva Laws APRN, C.N.P., PCP - General Family Medicine 12/11/20 09/23/21 M.S.N. [address] [phone] documented as of this encounter
--- OUTSIDE RECORDS SUMMARY | 2021-11-15 12:20 | XMS_ITS | Encounter Summary ---
:1940 Author Organization [facility] Address [address] [place] [address] Care Team Providers Name Role Phone Aviva Laws APRN C[facility]P[facility], M.S.N. Primary Care Provider +1 -[phone] Reason for Referral Outpatient (Routine) - Closed Specialty Diagnoses / Procedures Referred By Contact Refer red To Contact Radiation Oncology Deisi Vaughn P.A.-C., [facility] [address] [place] [phone] Referral ID Status Reason Start Date Expiration Date Visits Requ ested Visits Authorized [id number] Closed 06/23/2021 06/23/2022 1 1 Reason for Visit Outpatient (Routine) - Closed Specialty Diagnoses / Procedures Referred By Contact Refer red To Contact Radiation Oncology Deisi Vaughn P.A.-C., [facility] [address] [place] [phone] Referral ID Status Reason Start Date Expiration Date Visits Requ ested Visits Authorized [id number] Closed 06/23/2021 06/23/2022 1 1 Encounter Details Date Type Department Care Team Description 06/28/2021 Hospital Encounter Department of Vi Bills Neoplasm Of Radiation Oncology Yung Phillips M.D. Pancreas Adenocarcinoma in [facility] [address] [place] [address] (HCC) (Primary Dx) [place], [place] 1821 [facility] [address] [place], [place] [phone] (Work) [phone] Social History Tobacco Use Types Packs/Day Years [...] Sig Dispensed Refills Start Date End Date uhomwix-X9-bjbb-copper-m Take by mouth. 0 021 angan (Citracal-D3 [...] 4 (four) per tablet times a day. ixbdia-nnfdvbni-aybgdyy Take 2 capsules by 360 capsule 3 [...] PM CDT RADIATION ONCOLOGY RETURN VISIT Supervising Human Resources Leader: Dr. Yung iBlls SUBJECTIVE History of present illness Azeb العراقي is a 81 y.o. female from [place], [place] with locally advanced stage III cT4 [...] or concerns. Dr. Yung Bills is the solutions delivery consultant; please see his attestation for further [...] Yung Bills M.D. 06/28/2021 5:24 PM CDT [facility] Radiation Therapy [facility] documented in this encounter Miscellaneous Notes Addendum Note - Lindsey Fisher, C.N.A. - 06/28/2021 1:08 PM CDT Encounter addended by: Lindsey Fisher C.NMaia on: 06/29/2021 7:50 AM Actions taken: Letter [...] Primary documented in this encounter Care Teams Trial Judge Relationship Specialty Start Date End Date Aviva Laws APRN, C.N.P., PCP - General Family Medicine 12/11/20 09/23/21 MColleen [address] [phone] documented as of this encounter
--- OUTSIDE RECORDS SUMMARY | 2021-11-15 12:20 | XMS_ITS | Encounter Summary ---
:1940 Author Organization [facility] Address [address] [place] [address] Care Team Providers Name Role Phone Aviva Laws APRN, C.N.P., M.S.N. Primary Care Provider +1 -[phone] Encounter Details Date Type Department Care Team Description 05/10/2021 Clinical Communication Department of Vishal Hobson Oncology in [place], [place], [place] [address] [place] [address] Social History Tobacco Use Types Packs/Day Years [...] Danna Hobson M.D. - 05/10/2021 9:32 PM MERCHANT MILL UTILITY WORKER I received a call from Ms. العراقي [...] follow-up with Dr. Garcia's team at the [facility] tomorrow. HANT MILL UTILITY WORKER documented in this encounter Plan of Treatment Not on filedocumented as of this encounter Visit Diagnoses Not on filedocumented in this encounter Care Teams Business Banking Officer Relationship Specialty Start Date End Date Aviva Laws, LENNOX, C.N.P., PCP - General Family Medicine 12/11/20 09/23/21 Anisa [address] [place] [address] documented as of this encounter
--- OUTSIDE RECORDS SUMMARY | 2021-11-15 12:20 | XMS_ITS | Encounter Summary ---
:1940 Author Organization [facility] Address [address] [place] [address] Care Team Providers Name Role Phone Aviva Laws APRN, C.N.P., M.S.N. Primary Care Provider +1 -[phone] Reason for Visit Reason Comments Medication Question Encounter Details Date Type Department Care Team Description 02/02/2021 Clinical Department of Andrew, Medication Communication Oncology in Cristy Cespedes, R.N. [address] [place] [address] Social History Tobacco Use Types Packs/Day Years [...] FOLFIRINOX. She is transitioning to treatment at [facility] with Dr. Garland Garcia. PLAN I informed her that Dr. Andrés Gill MD refilled the Tramadol prescription in Kimberly Rios APRN DISABILITY EXAMINER [place] absence. We discussed that if her pain changes or becomes more severe despite taking the Tramadol, she should be seen for evaluation of the pain control. I suggested that she discuss this withDr. Garland Garcia MD at [place], [place] at her next visit. Disposition/Recommendation: as noted above.. Information/Education: patient/caller able to teach back. Caller agreeable to plan of care: yes. The following references were used: nursing clinical judgement and provider recommendation.. UE PRESSER Telephone Encounter - Andrés Gill M.D. - 02/02/2021 6:19 PM TONGUE PRESSER Tramadol sent. Does she need eval for the pain? Palliative referral maybe? UE PRESSER Telephone Encounter - Preethi Heard - 02/02/2021 1:22 PM TONGUE PRESSER Name of caller? Azeb Do we have a valid auth to speak with caller? yes Reason for call: Azeb called to report that she is experiencing a lot of stomach pain. She was onher way to [place] to get her pump disconnected yesterday and they were able to get her few days ofTramadol but she will be out tomorrow morning, she is calling to see if we'd be able to write the rxfor her, she is taking 6 tablets a day. [facility] in [place]. Thanks, Preethi Heard Rst Onc Rogo Med Aa Pod 1 UE PRESSER documented in this encounter Plan of Treatment Not on filedocumented as of this encounter Visit Diagnoses Not on filedocumented in this encounter Care Teams Brewery Worker Relationship Specialty Start Date End Date Aviva Laws APRN, C.N.P., PCP - General Family Medicine 12/11/20 09/23/21 M.S.N. [address] [place] [address] documented as of this encounter
--- OUTSIDE RECORDS SUMMARY | 2021-11-15 12:20 | XMS_ITS | Encounter Summary ---
:1940 Author Organization [facility] Address [address] [place] [address] Care Team Providers Name Role Phone Veto Aviva Ruiz APRN, C.N.P., M.S.N. Primary Care Provider +1 -[phone] Encounter Details Date Type Department Care Team Description 01/26/2021 Anesthesia Event Division of Gastroenterology Terry rodas, LENNOX, DRAPERY SEWER HAND [address] [place] [address] in [facility] Katty Bernstein M.D. [address] [place] [address] [address] [place] [address] Anesthesia Record Procedure Summary Procedure Name Responsible Anesthesiologist Anesthesia Start Ti me Anesthesia Stop Time ERCP Terry Choe, HOTEL CLERK, 01/26/21 1343 05/17 1504 DRAPERY SEWER HAND Events Date Time Event Comment 01/26/2021 1312 [...] h andoff to the receiving staff during [facility] we 1. Identified the patient 2. Ident [...] D, Terry Brown Time: 1355 (created via HOTEL CLERK, DARA D, HOTEL CLERK, DRAPERY SEWER HAND procedure documentation); Mask Ventilation: Easy mask; Type: [...] 06/19/2021 organizations such as congregation groups, unions, fraAt The Pool or athletic groups, or school groups? How [...] Room / Location: Division of Gastroenterology in [place], [place] Anesthesia Start: 1343 Anesthesia Stop: 1504 [...] Hyperbilirubinemia [R17] Location: Division of Gastroenterology in [place], [place] Pertinent components of the patient's history [...] with patient /legal guardian or through an diplomatic interpreter/translator. The use of blood products not discussed Approval to Proceed: approved for anesthesia Kiel palencia from [place], [place]; BMI 19; HTN; metastatic pancreatic adenocarcinoma; no prior intubation documentation here. MP 2. Plan GETA documented in this encounter Miscellaneous Notes Addendum Note - Dillon Perdue M.D. - 01/26/2021 3:38 PM CDT Addendum created 01/26/21 9658 by Dillon Perdue M.D. Order list changed documented in [...] Intra-op documented in this encounter Care Teams Nonprofit Director Relationship Specialty Start Date End Date Aviva Laws APRN, C.N.P., PCP - General Family Medicine 12/11/20 09/23/21 M.S.N. [address] [phone] documented as of this encounter
--- OUTSIDE RECORDS SUMMARY | 2021-11-15 12:20 | XMS_ITS | Encounter Summary ---
:1940 Author Organization [facility] Address [address] [place] [address] Care Team Providers Name Role Phone Aviva Laws APRN, C.N.P., M.S.N. Primary Care Provider +1 -[phone] Encounter Details Date Type Department Care Team Description 02/09/2021 Clinical Communication Department of Astrid Dang Oncology in M.D., Ph.D. [place], [place] [address] [facility] [address] [place] [phone] [phone] Social History Tobacco Use Types Packs/Day Years [...] Dang M.D., Ph.D. - 02/09/2021 8:01 PM HAND ALTERATIONS SEAMSTRESS I spoke with Mrs. العراقي as the [...] rate, as she received her chemo in [place]. However, at that rate the chemo infusion would complete in 41 hours, which is correct for a 48 hour total infusion time. ALTERATIONS SEAMSTRESS documented in this encounter Plan of Treatment Not on filedocumented as of this encounter Visit Diagnoses Not on filedocumented in this encounter Care Teams Middle School Football Coach Relationship Specialty Start Date End Date Aviva Laws APRN, C.N.P., PCP - General Family Medicine 12/11/20 09/23/21 M.S.N. [address] [phone] documented as of this encounter
--- OUTSIDE RECORDS SUMMARY | 2021-11-15 12:20 | XMS_ITS | Encounter Summary ---
:1940 Author Organization [facility] Address [address] [place] [address] Care Team Providers Name Role Phone Aviva Laws APRN, C.N.P., M.S.N. Primary Care Provider +1 -[phone] Encounter Details Date Type Department Care Team Description 07/06/2021 Hospital Encounter Department of Radiation Vy Bills, Oncology in [facility] [address] [facility] [address] [place] [address] [phone] Social History Tobacco Use Types Packs/Day Years [...] Sig Dispensed Refills Start Date End Date isbxdeb-N9-bwbu-copper-m Take by mouth. 0 021 angan (Citracal-D3 [...] 4 (four) per tablet times a day. tsopsg-vtloxcqq-imhlijn Take 2 capsules by 360 capsule 3 [...] on filedocumented in this encounter Care Teams Therapist Asst Relationship Specialty Start Date End Date Aviva Laws, LENNOX, C.N.P., PCP - General Family Medicine 12/11/20 09/23/21 Anisa [address] [place] [address] documented as of this encounter
--- OUTSIDE RECORDS SUMMARY | 2021-11-15 12:20 | XMS_ITS | Encounter Summary ---
:1940 Author Organization [facility] Address [address] [place] [address] Care Team Providers Name Role Phone Aviva Laws APRN, C.N.P., M.S.N. Primary Care Provider +1 -[phone] Encounter Details Date Type Department Care Team Description 01/25/2021 Clinical Communication Department of Oncology Ravinder Garcia in [facility] [address] [facility] [address] [place] [address] [phone] Social History Tobacco Use Types Packs/Day Years [...] and Dr. Vivar Saw Ms العراقي in [facility] Oncology for locally advanced pancreatic adenocarcinoma on FOLFIRINOX since May of 2020 now with obstructive jaundice. ERCP Planned 01/26/2021 at [facility] Will check CBC, CMP and magnesium on Monday02/01/2021 I am concerned about progression While on FOLFIRINOX. Last scan in 12/22/2020. Thoughts on rescanning in making a decision on switching to gem Abraxane or alternative therapy. documented in this encounter Plan of Treatment Not on filedocumented as of this encounter Visit Diagnoses Not on filedocumented in this encounter Care Teams Electrical System Specialist Relationship Specialty Start Date End Date Aviva Laws APRN, C.N.P., PCP - General Family Medicine 12/11/20 09/23/21 MChicoS.N. [address] [place] [address] documented as of this encounter
--- OUTSIDE RECORDS SUMMARY | 2021-11-15 12:20 | XMS_ITS | Encounter Summary ---
:1940 Author Organization [facility] Address [address] [place] [address] Care Team Providers Name Role Phone Aviva Laws APRN, C.N.P., M.S.N. Primary Care Provider +1 -[phone] Encounter Details Date Type Department Care Team [...] on filedocumented in this encounter Care Teams Certified Pharmacy Technician Relationship Specialty Start Date End Date Aviva Laws APRN, C.N.P., PCP - General Family Medicine 12/11/20 09/23/21 M.S.N. [address] [place] [address] documented as of this encounter
--- OUTSIDE RECORDS SUMMARY | 2021-11-15 12:20 | XMS_ITS | Encounter Summary ---
:1940 Author Organization [facility] Address [address] [place] [address] Care Team Providers Name Role Phone Aviva Laws APRN C.N.P., M.S.N. Primary Care Provider +1 -[phone] Reason for Referral MRI/CAT/PET Scan (Routine) - Closed Specialty Diagnoses / Procedures Referred By Contact Refer red To Contact Diagnoses Malignant Neoplasm Of Pancreas Adenocarcinoma (HCC) Yung Bills M.D. [facility] Procedures PET CT Skull to Thigh FDG PET CT Skull to Thigh FDG [address] [place] [phone] Referral ID Status Reason Start Date Expiration Date Visits Requ ested Visits Authorized [id number] Closed 06/23/2021 06/23/2022 1 1 Reason for Visit MRI/CAT/PET Scan (Routine) - Closed Specialty Diagnoses / Procedures Referred By Contact Refer red To Contact Diagnoses Malignant Neoplasm Of Pancreas Adenocarcinoma (HCC) Yung Bills M.D. [facility] Procedures PET CT Skull to Thigh FDG PET CT Skull to Thigh FDG [address] [place] [address] Referral ID Status Reason Start Date Expiration Date Visits Requ ested Visits Authorized [id number] Closed 06/23/2021 06/23/2022 1 1 Encounter Details Date Type Department Care Team Description 06/24/2021 Hospital Encounter Department of Vi Bills Neoplasm Of Radiology, [facility] Pancreas Adenocarcinoma Building, in [address] [place] [address] (HCC) [facility] [address] 200 [facility] [phone] [place], [place] (Work) [address] [phone] Social History Tobacco Use Types Packs/Day Years [...] Sig Dispensed Refills Start Date End Date esettfi-M8-nmnc-copper-m Take by mouth. 0 021 angan (Citracal-D3 [...] 4 (four) per tablet times a day. ypeyxt-fgcekrvw-kyiuirb Take 2 capsules by 360 capsule 3 [...] Chain, or bracelet and 3 Bumps on [place] Shape Septum Tip placement verified? Yes Location:RA [...] RADIOPHARMACEUTICAL/MEDS: Route: intravenous fludeoxyglucose F 18 injection DETENTION (FDG F-18),15.02 millicurie TECHNIQUE: ??F-18 FDG PET/CT [...] RADIOPHARMACEUTICAL/MEDS: Route: intravenous fludeoxyglucose F 18 injection DETENTION (FDG F-18),15.02 millicurie TECHNIQUE: F-18 FDG PET/CT [...] Given 06/24/2021 2:12 PM 15.02 millicuries injection DETENTION (FDG F-18) CDT 15.02 millicurie, intravenous, Once, [...] Device (IVAD) Venous Non-Valved, Starting on Laila 06/24/21 at 1422, Prior to and following infusion, [...] discharge. documented in this encounter Care Teams Abattoir Manager Relationship Specialty Start Date End Date Aviva Laws APRN, C.N.P., PCP - General Family Medicine 12/11/20 09/23/21 M.S.N. [address] [address] documented as of this encounter
--- OUTSIDE RECORDS SUMMARY | 2021-11-15 12:20 | XMS_ITS | Encounter Summary ---
:1940 Author Organization [facility] Address [address] [place] [address] Care Team Providers Name Role Phone Aviva Laws APRN, C.N.P., M.S.N. Primary Care Provider +1 -[phone] Encounter Details Date Type Department Care Team Description 02/05/2021 Orders Only Department of Oncology in Daniel Vieira M.D. [place], [place] [address] [facility] [address] [place] [address] [phone] (Wo rk) Social History Tobacco Use Types [...] on filedocumented in this encounter Care Teams Regional Facilities Manager Relationship Specialty Start Date End Date Aviva Laws APRN, C.N.P., PCP - General Family Medicine 12/11/20 09/23/21 M.S.N. [address] [place] [address] documented as of this encounter
--- OUTSIDE RECORDS SUMMARY | 2021-11-15 12:20 | XMS_ITS | Encounter Summary ---
:1940 Author Organization [facility] Address [address] [place] [address] Care Team Providers Name Role Phone Aviva Laws APRN C.NChicoPChico, M.S.N. Primary Care Provider +1 -[phone] Reason for Referral Outpatient (Routine) - Authorized Specialty Diagnoses / Procedures Referred By Contact Refer red To Contact Diagnoses Malignant Neoplasm Of Pancreas Adenocarcinoma (HCC) Yung Bills M.D. [address] [place] [phone] Referral ID Status Reason Start Expiration Visits Visits Date Date Requested Authorized [id number] Authorized Service not 06/22/2021 06/22/2022 1 1 available in [facility] Specialty Diagnoses / Procedures Referred By Contact Refer red To Contact Deisi Vaughn P.A.-C ., M.S. [facility] Region [address] [place] [phone] Referral ID Status Reason Start Date Expiration Date Visits Requ ested Visits Authorized Outpatient (Routine) - Authorized Specialty Diagnoses / Procedures Referred By Contact Refer red To Contact Radiation Oncology Yung Bills M .D. [facility] Region [address] [place] [address] Referral ID Status Reason Start Date Expiration Date Visits V isits Requested Authorized [id number] Authorized 06/22/2021 06/22/2022 10 10 Radiation Therapy (Routine) - Authorized Specialty Diagnoses / Procedures Referred By Contact Refer red To Contact Diagnoses Malignant Neoplasm Of Pancreas Adenocarcinoma (HCC) Yung Bills M.D. [facility] Procedures Management Visit [address] [place], [place] [address] Referral ID Status Reason Start Date Expiration Date Visits V isits Requested Authorized [id number] Authorized 06/22/2021 06/22/2022 10 10 Radiation Therapy (Routine) - Authorized Specialty Diagnoses / Procedures Referred By Contact Refer red To Contact Diagnoses Malignant Neoplasm Of Pancreas Adenocarcinoma (HCC) Yung Bills M.D. [facility] Procedures Prior Auth Rad Tx [address] [place], [place] [address] Referral ID Status Reason Start Date Expiration Date Visits V isits Requested Authorized [id number] Authorized 06/22/2021 06/22/2022 1 1 Radiation Therapy (Routine) - Closed Specialty Diagnoses / Procedures Referred By Contact Refer red To Contact Diagnoses Malignant Neoplasm Of Pancreas Adenocarcinoma (HCC) Yung Bills M.D. [facility] Procedures Initial Rad Onc Treatment Planning CT Simulation [address] [place], [place] [address] Referral ID Status Reason Start Date Expiration Date Visits Requ ested Visits Authorized [id number] Closed 06/22/2021 06/22/2022 1 1 Encounter Details Date Type Department Care Team Description 06/22/2021 Orders Only Department of Deisi Vaughn Malignant [place] plasm Of Radiation Oncology in P.A.-C., M .S. Pancreas Adenocarcinoma [place] [address] (HCC) (Primary Dx) [address] [place] [address] Social History Tobacco Use Types Packs/Day [...] of this encounter Plan of Treatment Scheduled Orders [...] Organization Address City/State/ZIP Code Phon e Number [place] na documented in this encounter Visit Diagnoses Diagnosis Malignant Neoplasm Of Pancreas Adenocarc inoma (HCC) - Primary Malignant Neoplasm Of Pancreas Adenocarc inoma (HCC) documented in this encounter Care Teams Promotions Assistant Relationship Specialty Start Date End Date Aviva Laws APRN, C.N.P., PCP - General Family Medicine 12/11/20 09/23/21 M.S.N. [address], [place] [address] documented as of this encounter
--- OUTSIDE RECORDS SUMMARY | 2021-11-15 12:20 | XMS_ITS | Encounter Summary ---
:1940 Author Organization [facility] Address [address] [place] [address] Care Team Providers Name Role Phone Aviva Laws APRN C.N.P., M.S.N. Primary Care Provider +1 -[phone] Reason for Referral Specialty Diagnoses / Procedures Referred By Contact Refer red To Contact Aviva Laws APRN, C.N.P., [facility] M.S.N. [address], [place] [address] Referral ID Status Reason Start Date Expiration Date Visits Requ ested Visits Authorized LIANCE AIDE Encounter Details Date Type Department Care Team Description 05/02/2021 Orders Only [facility] PCP [facility] Aviva Laws, GILMER RN, C.N.P., M.S.N. [address], [place] [address] (Wo rk) Social History [...] Do you belong to any clubs or [employer] 06/19/2021 organizations such as lutheran groups, unions, fraFanIQ or athletic groups, or school groups? How [...] on filedocumented in this encounter Care Teams Public Employment Mediator Relationship Specialty Start Date End Date Aviva Laws APRN, C.N.P., PCP - General Family Medicine 12/11/20 09/23/21 M.S.N. [address] [place] [address] documented as of this encounter
--- OUTSIDE RECORDS SUMMARY | 2021-11-15 12:20 | XMS_ITS | Encounter Summary ---
:1940 Author Organization [facility] Address [address] [place] [address] Care Team Providers Name Role Phone Aviva Laws APRN C.N.P., M.S.N. Primary Care Provider +1 -[phone] Reason for Referral Radiation Therapy (Routine) - Closed Specialty Diagnoses / Procedures Referred By Contact Refer red To Contact Diagnoses Malignant Neoplasm Of Pancreas Adenocarcinoma (HCC) Yung Bills M.D. [facility] Procedures Initial Rad Onc Treatment Planning CT Simulation [address] [place] [address] Referral ID Status Reason Start Date Expiration Date Visits Requ ested Visits Authorized [id number] Closed 06/22/2021 06/22/2022 1 1 Reason for Visit Radiation Therapy (Routine) - Closed Specialty Diagnoses / Procedures Referred By Contact Refer red To Contact Diagnoses Malignant Neoplasm Of Pancreas Adenocarcinoma (HCC) Yung Bills M.D. [facility] Procedures Initial Rad Onc Treatment Planning CT Simulation [address] [place] [address] Referral ID Status Reason Start Date Expiration Date Visits Requ ested Visits Authorized [id number] Closed 06/22/2021 06/22/2022 1 1 Encounter Details Date Type Department Care Team Description 06/28/2021 Hospital Encounter Department of Vi Bills Neoplasm Of Radiation Oncology Yung Phillips M.D. Pancreas Adenocarcinoma in [place], [address] [facility] (HCC) [place], [place] [address] [facility] [address] [place], [place] [phone] (Work) [phone] Social History Tobacco Use Types Packs/Day Years [...] clubs or Yes 06/19/2021 organizations such as christianity groups, unions, [...] Sig Dispensed Refills Start Date End Date grsygbc-W3-xrks-copper-m Take by mouth. 0 021 angan (Citracal-D3 [...] 4 (four) per tablet times a day. wrnjql-vhibarwu-jbibtac Take 2 capsules by 360 capsule 3 [...] planning. CT images were transferred to the [employer] treatment planning system, after a reference isocenter was determined and marked. Segmentation and treatment planning will take place priorto treatment delivery. Patient set up and imaging was appropriate and completed without incident. Supervisor Telephone Information use:No documented in this encounter Plan of [...] Organization Address City/State/ZIP Code Phon e Number [facility] na documented in this encounter Visit Diagnoses Diagnosis Malignant Neoplasm Of Pancreas Adenocarc inoma (HCC) documented in this encounter Care Teams Plastic Surgery Manager Relationship Specialty Start Date End Date Aviva Laws APRN, C.N.P., PCP - General Family Medicine 12/11/20 09/23/21 M.S.N. [address] [address] documented as of this encounter
--- OUTSIDE RECORDS SUMMARY | 2021-11-15 12:20 | XMS_ITS | Encounter Summary ---
:1940 Author Organization [facility] Address [address] [place] [address] Care Team Providers Name Role Phone Veto Aviva Ruiz APRN, C.N.P., M.S.N. Primary Care Provider +1 -[phone] Encounter Details Date Type Department Care Team Description 06/29/2021 Specialty Pharmacy [facility] Gayla Estrada [address] Ravinder Kelsey, Pharm.D., R.Ph. [place], [place] [address] [place] [address] [place], [place] [phone] (Wo rk) Social History Tobacco Use Types [...] hot water, avoiding tasks that require strong squeeze/project eng, etc.) and they understand that the physician [...] this product has a generic option, the monomer recovery operator of the brand name drug, no longer offers information or support programs on their website. See [email or web address]. The patient was attentive and ready to learn. They verbalized understanding and are in agreement with the plan for taking this new regimen. They were advised to contact the prescriber concerning symptoms or side effects as mentioned above. The importance of adherence to the treatment plan was emphasized in regard to success of therapy. Allergy, past sensitivity, medication and health history considered at certified travel counselor (renal function if available). To optimize [...] The patient has decided to use the [facility]. This patient meets the definition of *HIGH RISK- requiring BSA dose review*, by [facility] definition and has been flagged as such in the dispensing system. Follow-up: 1 month(s) Gayla Estrada, Pharm.D., R.Ph. documented in this encounter Plan of Treatment Not on filedocumented as of this encounter Visit Diagnoses Not on filedocumented in this encounter Care Teams Ball Holder Relationship Specialty Start Date End Date Aviva Laws APRN, C.N.P., PCP - General Family Medicine 12/11/20 09/23/21 M.S.N. [address] [address] documented as of this encounter
--- OUTSIDE RECORDS SUMMARY | 2021-11-15 12:20 | XMS_ITS | Encounter Summary ---
:1940 Author Organization [facility] Address [address] [place] [address] Care Team Providers Name Role Phone Aviva Laws APRN, C.N.P., M.S.N. Primary Care Provider +1 -[phone] Encounter Details Date Type Department Care Team Description 07/05/2021 Hospital Encounter Department of Radiation Vy Bills, Oncology in [facility] [address] [facility] [address] [place] [phone] Social History Tobacco Use Types Packs/Day Years [...] Sig Dispensed Refills Start Date End Date fycrold-H6-jtkd-copper-m Take by mouth. 0 021 angan (Citracal-D3 [...] 4 (four) per tablet times a day. mxgpkl-nzqhhbui-axggiyz Take 2 capsules by 360 capsule 3 [...] on filedocumented in this encounter Care Teams Lung Puller Relationship Specialty Start Date End Date Aviva Laws, LENNOX, C.N.P., PCP - General Family Medicine 12/11/20 09/23/21 Anisa [address] [place] [address] documented as of this encounter
--- OUTSIDE RECORDS SUMMARY | 2021-11-15 12:20 | XMS_ITS | Encounter Summary ---
:1940 Author Organization [facility] Address [address] [place] [address] Care Team Providers Name Role Phone Aviva Laws APRN, C.NChicoP., M.S.N. Primary Care Provider +1 -[phone] Reason for Referral Outpatient (Routine) - Closed Specialty Diagnoses / Procedures Referred By Contact Refer red To Contact Diagnoses Malignant Neoplasm Of Pancreas Adenocarcinoma (HCC) Neutropenia Chemotherapy Induced (HCC) Hyperbilirubinemia Kimberly Rios APRN, [facility] Procedures [place] Fluoro Less Than 1 Hour C.N.P., M.S. 200 [place] [address] Referral ID Status Reason Start Date Expiration Date Visits Requ ested Visits Authorized [id number] Closed 01/26/2021 01/26/2022 1 1 Reason for Visit Outpatient (Routine) - Closed Specialty Diagnoses / Procedures Referred By Contact Refer red To Contact Diagnoses Malignant Neoplasm Of Pancreas Adenocarcinoma (HCC) Neutropenia Chemotherapy Induced (HCC) Hyperbilirubinemia Kimberly Rios APRN, [facility] Procedures FL Fluoro Less Than 1 Hour C.N.P., M.S. [address] [place] [address] Referral ID Status Reason Start Date Expiration Date Visits Requ ested Visits Authorized [id number] Closed 01/26/2021 01/26/2022 1 1 Encounter Details Date Type Department Care Team Description 01/26/2021 Hospital Department of [facility], Malignant Neop lasm Of Pancreas Adenocarcinoma (HCC); Encounter Radiology, Gonda Kimberly L, Neutropenia Chemotherapy Induced (HCC); Building, in [place] [facility], Hyperbilirubin pa Obrien M.S. [place] [address] [facility] [address] [place] [phone] [phone] Social History Tobacco Use Types Packs/Day Years [...] Sig Dispensed Refills Start Date End Date bhfdrgs-C9-txdd-copper-m Take by mouth. 0 021 angan (Citracal-D3 [...] 4 (four) per tablet times a day. veyffx-czqrzfyl-auhddwe Take 2 capsules by 360 capsule 3 [...] record on this date for clinical details. Kimberly Rios APRN C.N.P., M.S. IMG FLUOROSCOPY [place] OCEDURES Performing Organization Address City/State/ZIP Code Phon e Number ERCP LOS RST documented in this encounter Visit Diagnoses Diagnosis Malignant Neoplasm Of Pancreas Adenocarc inoma (HCC) Neutropenia Chemotherapy Induced (HCC) Hyperbilirubinemia documented in this encounter Care Teams Stull Installer Relationship Specialty Start Date End Date Aviva Laws APRN, C.N.P., PCP - General Family Medicine 12/11/20 09/23/21 M.S.N. [address] [place] [address] documented as of this encounter
--- OUTSIDE RECORDS SUMMARY | 2021-11-15 12:20 | XMS_ITS | Encounter Summary ---
:1940 Author Organization [facility] Address [address] [place] [address] Care Team Providers Name Role Phone Aviva Laws APRN C.NChicoP., M.S.N. Primary Care Provider +1 -[phone] Reason for Referral MRI/CAT/PET Scan (Routine) - Closed Specialty Diagnoses / Procedures Referred By Contact Refer red To Contact Diagnoses Malignant Neoplasm Of Pancreas Adenocarcinoma (HCC) Yung Bills M.D. [facility] Procedures PET CT Skull to Thigh FDG PET CT Skull to Thigh FDG [address] [place], [place] [address] Referral ID Status Reason Start Date Expiration Date Visits Requ ested Visits Authorized [id number] Closed 06/23/2021 06/23/2022 1 1 Outpatient (Routine) - Closed Specialty Diagnoses / Procedures Referred By Contact Refer red To Contact Radiation Oncology Deisi Vaughn P.A.-C., [facility] M.S [address] [place] [address] Referral ID Status Reason Start Date Expiration Date Visits Requ ested Visits Authorized [id number] Closed 06/23/2021 06/23/2022 1 1 Reason for Visit Appointment Request (Routine) - Closed Specialty Diagnoses / Procedures Referred By Contact Refer red To Contact Radiation Oncology Diagnoses Malignant Neoplasm Of Pancreas Adenocarcinoma (HCC) Daniel Vieira M.D. [address] [place] [address] Referral ID Status Reason Start Date Expiration Date Visits Requ ested Visits Authorized [id number] Closed 06/14/2021 06/14/2022 1 1 Encounter Details Date Type Department Care Team Description 06/23/2021 Hospital Encounter Department of Vi Bills Neoplasm Of Radiation Oncology Yung Phillips M.D. Pancreas Adenocarcinoma in [address] (HCC) (Primary Dx) [place], [place] [address] [facility] [address] [place], [place] [phone] [address] (Work) [phone] Social History Tobacco Use Types Packs/Day Years [...] Sig Dispensed Refills Start Date End Date lzwoqhd-Y2-bfam-copper-m Take by mouth. 0 021 angan (Citracal-D3 [...] 4 (four) per tablet times a day. iohoug-ippwtqcl-kwqwmzn Take 2 capsules by 360 capsule 3 [...] vomiting. (HCC) documented as of this encounter Consult Notes Deisi Vaughn P.A.-C., M.S. - 06/23/2021 9:15 AM CDT SUBJECTIVE REQUESTING PROVIDER Daniel Vieira M.D. REASON FOR CONSULT 1. Malignant Neoplasm Of Pancreas Adenocarcinoma (HCC) SUPERVISED BY: Yung Bills M.D. ([id number]) HISTORY OF PRESENT ILLNESS Mrs. Azeb العراقي [...] and the Common Hereditary Cancers panel from [facility]. 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 06/08/2020 - 01/18/2021 Chemotherapy FOLFIRINOX ( Fluorouracil / Leucovorin / Irinotecan / Oxaliplatin ) Start Date: 06/08/2020 15 cycles completed in [place] under the care of Dr. Vivar. 01/26/2021 [...] ) Cycles 16 - 24 completed at [facility] under the care of [facility] providers. 05/12/2021 Imaging Ultrasound of [...] grandchildren, and 5 great-grandchildren. Retired. Worked for [employer] in [place]. OBJECTIVE BP 116/63 (BP Location: Right arm, [...] 28, 2021. I will communicate with the [facility] regarding our plan to proceed [...] Vaughn P.A.-C., M.S. 06/23/2021 10:48 AM CDT [facility] [address] [place], [place] [id number] Associated attestation - Yung Bills M.D. - 06/23/2021 11:32 AM CDT I saw and evaluated the patient and participated in the wilkins portions of the service. I reviewed the documentation of Deisi Vaughn P.A.-C. and agree with the findings and plan. Mrs. Azeb العراقي is a 81 y.o. [...] concurrent Xeloda. CBCs will be obtained at [facility]. She has never had a PET/CT scan. [...] spent counseling and coordinating care. Signed by: uYng Bills M.D. 06/23/2021 11:32 AM CDT [facility] [place] documented in this encounter Miscellaneous Notes Addendum [...] Name Type Priority Associated Diagnoses Order S [facility] Radiation Oncology Outpatient Referral Routine Ex pected: [...] RADIOPHARMACEUTICAL/MEDS: Route: intravenous fludeoxyglucose F 18 injection PRISON (FDG F-18),15.02 millicurie TECHNIQUE: ??F-18 FDG PET/CT [...] RADIOPHARMACEUTICAL/MEDS: Route: intravenous fludeoxyglucose F 18 injection PRISON (FDG F-18),15.02 millicurie TECHNIQUE: F-18 FDG PET/CT [...] (HCC) documented in this encounter Care Teams Bridge Inspector Relationship Specialty Start Date End Date Aviva Laws APRN, C.N.P., PCP - General Family Medicine 12/11/20 09/23/21 M.S.N. [address] [address] documented as of this encounter
--- OUTSIDE RECORDS SUMMARY | 2021-11-15 12:20 | XMS_ITS | Encounter Summary ---
:1940 Author Organization [facility] Address [address] [place] [address] Care Team Providers Name Role Phone Laws, Aviva Ruiz APRN, C.N.P., M.S.N. Primary Care Provider +1 -[phone] Reason for Visit Reason Comments Med Refill dexAMETHasone Encounter Details Date Type Department Care Team Description 03/15/2021 Refill Department of Oncology Garland Garcia Me d Refill in [facility] blossom Parks (dexAMETHasone ) [address] [facility] [address] [place], [place] [address] [place], [place] [phone] (Wo rk) Social History Tobacco Use Types [...] with local oncologist. She's getting treatment in [place]. Thanks! CER MACHINE OPERATOR Telephone Encounter - Katty Allen - 03/15/2021 3:47 PM CST Surescripts created refill request. CER MACHINE OPERATOR documented in this encounter Plan of Treatment Not on filedocumented as of this encounter Visit Diagnoses Diagnosis Malignant Neoplasm Of Pancreas Adenocarc inoma (HCC) documented in this encounter Care Teams Draw Machine Operator Relationship Specialty Start Date End Date Aviva Laws APRN, C.N.P., PCP - General Family Medicine 12/11/20 09/23/21 M.S.N. [address] [place] [address] documented as of this encounter
--- OUTSIDE RECORDS SUMMARY | 2021-11-15 12:21 | XMS_ITS | Encounter Summary ---
:1940 Author Organization [facility] Address [address] [place] [address] Care Team Providers Name Role Phone LawsAviva betts APRN, C.N.P., M.S.N. Primary Care Provider +1 -[phone] Reason for Visit Episode Based Medications (Routine) - Authorized Specialty Diagnoses / Procedures Referred By Contact Refer red To Contact Diagnoses Malignant Neoplasm Of Pancreas Adenocarcinoma (HCC) Neutropenia Chemotherapy Induced (HCC) Kimberly Rios, Rst Onc Trace Cespedes APRNN.Hossein., M.S. 200 [facility] [address] [place] [phone] Referral ID Status Reason Start Date Expiration Date Visits V isits Requested Authorized [id number] Authorized 06/03/2020 06/03/2021 99 99 Encounter Details Date Type Department Care Team Description 01/18/2021 Lab Department of Infusion Kimberly Rios, Malignant Neoplasm Of Pancreas Adenocarcinoma (HCC) (Primary Dx); Therapy in [facility] Trace HIGHNChico Catalan., M.S. Neutropenia Chemotherapy Induced (HCC) [address] [place] [phone] Social History Tobacco Use Types Packs/Day Years [...] 06/19/2021 organizations such as yarsani groups, unions, [email or web address] or athletic groups, or school groups? How [...] AM 01/19/20 9:58 Venous) CDT AM CDT Trace Rudolph APRNN.P., M.S. LAB BLOOD ADD-ON Performing Organization Address City/State/[facility] Code Phon e Number [facility] - 200 [place], [place] [address] [facility] [place] [address] Laboratories-[facility] 200 [facility] (ABNORMAL) Comprehensive Metabolic Panel (01/18/2021 8:31 AM [...] DTL Nitrogen), S mg/dL 10:42 AM CDT Creatinine 0.93 0.59 - 01/18/2021 DTL 1.04 mg/dL 10:42 AM CDT eGFR-Non 59 (L) >=60 01/18/2021 DTL Black/ mL/min/BSA 10:42 AM CDT Bur[place]ian Comment: ----ADDITIONAL INFORMATION---- Estimated GFR calculated using [...] 9:58 Venous) CDT AM CDT Kimberly Rios APRN C.N.P., M.S. LAB BLOOD ADD-ON Performing Organization Address City/State/ZIP Code Phon e Number [facility] - [address] [place], [place] [address] [facility] [place] [address] Laboratories-[place] [address] (ABNORMAL) CBC with Differential, Blood (01/18/2021 8:31 AM CDT) [facility] gist Method Time Signature Hemoglobin 10.6 (L) 11.6 [...] City/State/ZIP Code Phon e Number [facility] - 200 [place], [place] [address] [place] [address] Laboratories-[address] Magnesium (01/18/2021 8:31 AM CDT) P athologist Signature Magnesium, S 2.2 1.7 - 2.3 01/18/2021 DTL mg/dL 10:42 AM CDT Specimen Anatomical Collection Method Collection Time Receive d Time (Source) Location / / Volume Laterality Blood (Blood, 01/18/2021 8:31 AM 01/19/20 9:58 Venous) CDT AM CDT Kimberly Rios APRN, C.N.P., M.S. LAB BLOOD ADD-ON Performing Organization Address City/[facility] Code Phon e Number [facility] [address] [place] [address] 05 [place] [address] [address] (ABNORMAL) Carbohydrate Antigen 19-9 (CA 19-9) (01/18/2021 8:31 AM CDT) Analysis Performed At Patho logist Time Signature Carbohydrate Ag 74 (H) <35 U/mL 01/18/2021 [facility] 19-9, S 2:05 PM CDT Comment: ----ADDITIONAL INFORMATION---- The testing method is an immunoenzymatic assay manufactured by [employer] and performed on the [employer] DxI 800. ? Values obtained with different [...] M.S. LAB BLOOD ADD-ON Performing Organization Address City/[facility]/ZIP [facility] Phon e Number [facility] [address] [place], [place] [address] [facility] [place] [address] Laboratory Medicine and Pathology [address] [place] documented in this encounter Visit [...] documented in this encounter Care Teams Sand Shoveler Relationship Specialty Start Date End Date Aviva Laws, LENNOX, C.N.P., PCP - General Family Medicine 12/11/20 09/23/21 M.S.N. [address] [phone] documented as of this encounter
--- OUTSIDE RECORDS SUMMARY | 2021-11-15 12:21 | XMS_ITS | Encounter Summary ---
:1940 Author Organization [facility] Address [address] [place] [address] Care Team Providers Name Role Phone LawsAviva APRN, C.N.P., M.S.N. Primary Care Provider +1 -[phone] Reason for Visit Outpatient (Routine) - Closed Specialty Diagnoses / Procedures Referred By Contact Refer red To Contact Diagnoses Malignant Neoplasm Of Pancreas Adenocarcinoma (HCC) Kimberly Rios APRN, C.S. [facility] Procedures ONC Pump Disconnect C.N.P., M.S. 200 [place] [address] Referral ID Status Reason Start Date Expiration Date Visits Requ ested Visits Authorized [id number] Closed 09/01/2020 09/01/2021 5 5 Encounter Details Date Type Department Care Team Description 12/11/2020 Infusion Department of Infusion Kimberly Rios Ma lignant Neoplasm Of Pancreas Adenocarcinoma (HCC) (Primary Dx); Therapy in Alan Donaldson APRN C.N.PChico, Jesus tropenia Chemotherapy Induced (HCC) [facility] [address] [place] [phone] Social History Tobacco Use Types Packs/Day Years [...] 06/19/2021 organizations such as muslim groups, unions, fraAdspringr or athletic groups, or school groups? How [...] sampling. documented in this encounter Care Teams Tar And Ammonia Pump Operator Relationship Specialty Start Date End Date Aviva Laws APRN, C.N.P., PCP - General Family Medicine 12/11/20 09/23/21 M.S.N. [address], [place] [phone] documented as of this encounter
--- OUTSIDE RECORDS SUMMARY | 2021-11-15 12:21 | XMS_ITS | Encounter Summary ---
:1940 Author Organization [facility] Address [address] [place] [address] Care Team Providers Name Role Phone Aviva Laws APRN, C.N.P., M.S.N. Primary Care Provider +1 -[phone] Encounter Details Date Type Department Care Team Description 01/23/2021 Hospital Encounter Department of Laboratory Judith Medrano, Medicine, [facility], in [place], [address], [place] [address] [facility] [address] [place] [address] [phone] Social History Tobacco Use Types Packs/Day Years [...] Sig Dispensed Refills Start Date End Date fyfbhks-Q7-wxcv-copper-m Take by mouth. 0 021 angan (Citracal-D3 [...] 4 (four) per tablet times a day. jkuule-zixvdlsu-sscbiwe Take 2 capsules by 360 capsule 3 [...] documented as of this encounter Care Teams Human Resources Clerk Relationship Specialty Start Date End Date Aviva Laws, LENNOX, C.N.P., PCP - General Family Medicine 12/11/20 09/23/21 M.S.N. [address], [place] [address] documented as of this encounter
--- OUTSIDE RECORDS SUMMARY | 2021-11-15 12:21 | XMS_ITS | Encounter Summary ---
:1940 Author Organization [facility] Address [address] [place] [address] Care Team Providers Name Role Phone Aviva Laws APRN C.N.P., M.S.N. Primary Care Provider +1 -[phone] Reason for Referral Outpatient (Routine) - Closed Specialty Diagnoses / Procedures Referred By Contact Refer red To Contact Procedures Delmar Mulligan M.D. [facility] General eye exam [address] [place] [address] Referral ID Status Reason Start Date Expiration Date Visits Requ ested Visits Authorized [id number] Closed 12/28/2020 12/28/2021 1 1 Reason for Visit Reason Comments Eye Exam Outpatient (Routine) - Closed Specialty Diagnoses / Procedures Referred By Contact Refer red To Contact Procedures Delmar Mulligan [facility]. [facility] General eye exam [address] [place] [address] Referral ID Status Reason Start Date Expiration Date Visits Requ ested Visits Authorized [id number] Closed 12/11/2019 12/10/2020 1 1 Encounter Details Date Type Department Care Team Description 12/28/2020 Comprehensive Visit Department of Delmar Mulligan Senile Ophthalmology issa Abel M.D. Nuclear Sclerosis [place], [place] [address] Bilateral (Primary [address] Dx) [place] [address] Social History Tobacco Use Types Packs/Day Years [...] Primary documented in this encounter Care Teams Echo Tech Relationship Specialty Start Date End Date Aviva Laws APRN, C.N.P., PCP - General Family Medicine 12/11/20 09/23/21 M.S.N. [address] [address] documented as of this encounter
--- OUTSIDE RECORDS SUMMARY | 2021-11-15 12:21 | XMS_ITS | Encounter Summary ---
:1940 Author Organization [facility] Address [address] [place] [address] Care Team Providers Name Role Phone Aviva Laws APRN, C.N.P., M.S.N. Primary Care Provider +1 -[phone] Encounter Details Date Type Department Care Team Description 01/20/2021 Emergency [facility] Hemorrhoids (Primary Dx); [address] [place] [address] Social History Tobacco Use Types Packs/Day [...] Sig Dispensed Refills Start Date End Date jqjfdpk-S4-krjj-copper-m Take by mouth. 0 021 angan (Citracal-D3 [...] 4 (four) per tablet times a day. yfejnw-ovvvojoe-kdvbnab Take 2 capsules by 360 capsule 3 [...] lungs are clear. Limited comparison 12/22/2020 CT. Jesse Najera APRN DIAGNOSTIC IMAGING PROCEDURES documented in this encounter Visit Diagnoses Diagnosis Hemorrhoids - Primary Pain Rectal documented in this encounter Care Teams Appeals Specialist Relationship Specialty Start Date End Date Aviva Laws APRN, C.N.P., PCP - General Family Medicine 12/11/20 09/23/21 M.S.N. [address] [address] documented as of this encounter
--- OUTSIDE RECORDS SUMMARY | 2021-11-15 12:21 | XMS_ITS | Encounter Summary ---
:1940 Author Organization [facility] Address [address] [place] [address] Care Team Providers Name Role Phone Aviva Laws APRN, C.N.P., M.S.N. Primary Care Provider +1 -[phone] Reason for Visit Episode Based Medications (Routine) - Authorized Specialty Diagnoses / Procedures Referred By Contact Refer red To Contact Diagnoses Malignant Neoplasm Of Pancreas Adenocarcinoma (HCC) Neutropenia Chemotherapy Induced (HCC) Kimberly Rios, Rst Onc Trace Cespedes APRNN.Hossein., M.S. 200 [facility] 200 [place] [phone] Referral ID Status Reason Start Date Expiration Date Visits V isits Requested Authorized [id number] Authorized 06/03/2020 06/03/2021 99 99 Encounter Details Date Type Department Care Team Description 01/04/2021 Lab Department of Infusion Kimberly Rios, Malignant Neoplasm Of Pancreas Adenocarcinoma (HCC) (Primary Dx); Therapy in [facility] Trace HIGHNChico Catalan., M.S. Neutropenia Chemotherapy Induced (HCC) [address] 200 [place] [phone] Social History Tobacco Use Types Packs/Day Years [...] 06/19/2021 organizations such as synagogue groups, unions, fraShelfX or athletic groups, or school groups? How [...] 01/05/20 21 Venous) CDT 10:26 AM CDT Harleen Rudolph APRN.N.P., M.S. LAB BLOOD ADD-ON Performing Organization Address City/State/[facility] Code Phon e Number [facility] - [address] [place] [address] 05 [facility] [place] [address] Laboratories-[facility] 200 [facility] (ABNORMAL) Comprehensive Metabolic Panel (01/04/2021 9:53 AM [...] DTL Nitrogen), S mg/dL 10:47 AM CDT Creatinine 0.84 0.59 - 01/04/2021 DTL 1.04 mg/dL 10:47 AM CDT eGFR-Non 67 >=60 01/04/2021 DTL Black/ mL/min/BSA 10:47 AM CDT Tajik Comment: ----ADDITIONAL INFORMATION---- Estimated GFR calculated using [...] 01/05/20 21 Venous) CDT 10:26 AM CDT Kimberly Rios APRN C.N.P., M.S. LAB BLOOD ADD-ON Performing Organization Address City/State/ZIP Code Phon e Number [facility] - [address] [place], [place] [address] [facility] [place] [address] Laboratories-[facility]) [address] (ABNORMAL) CBC with Differential, Blood (01/04/2021 9:53 AM CDT) [facility] gist Method Time Signature Hemoglobin 9.3 (L) 11.6 [...] Organization Address City/State/ZIP Code Phon e Number [facility] - 200 [place], [place] [address] [facility] [place] [address] Laboratories-[address] Magnesium (01/04/2021 9:53 AM CDT) athologist Signature Magnesium, S 2.2 1.7 - 2.3 01/04/2021 DTL mg/dL 10:45 AM CDT Specimen Anatomical Collection Method Collection Time Receive d Time (Source) Location / / Volume Laterality Blood (Blood, 01/04/2021 9:53 AM 01/05/20 Venous) CDT 10:26 AM CDT Kimberly Rios APRN, C.N.P., M.S. LAB BLOOD ADD-ON Performing Organization Address City/[facility] Phon e Number [facility] - 200 [place], [place] [address] [place] [address] Laboratories-[address] Carbohydrate Antigen 19-9 (CA 19-9) (01/04/2021 9:53 AM CDT) athologist [facility] Carbohydrate Ag 29 <35 U/mL 01/04/2021 [facility] 19-9, S 3:57 PM CDT Comment: ----ADDITIONAL INFORMATION---- The testing method is an immunoenzymatic assay manufactured by [employer] and performed on the [employer] DxI 800. ? Values obtained with different [...] M.S. LAB BLOOD ADD-ON Performing Organization Address City/[facility]/ZIP [facility] Phon e Number [facility] [address] [place], [place] [address] [facility] [place] [address] Laboratory Medicine and Pathology [address] [...] intra-catheter, As needed, line care, Starting on 01/04/21 at 0943, When IVAD Accessed and in Use: Flush post blood transfusion or post blood sampling. documented in this encounter Care Teams Coat Operator Insulator Relationship Specialty Start Date End Date Aviva Laws APRN, C.N.P., PCP - General Family Medicine 12/11/20 09/23/21 M.S.N. [address], [place] [address] documented as of this encounter
--- OUTSIDE RECORDS SUMMARY | 2021-11-15 12:21 | XMS_ITS | Encounter Summary ---
:1940 Author Organization [facility] Address [address] [place] [address] Care Team Providers Name Role Phone Aviva Laws APRN, C.N.P., M.S.N. Primary Care Provider +1 [phone] Reason for Visit Reason Comments ERCP Order Encounter Details Date Type Department Care Team Description 01/19/2021 Clinical Communication Department of Oncology Nova Vivar, NYA Order in [facility] M.B.B.S. [address] [facility] [address] [place] [address] [phone] Social History Tobacco Use Types Packs/Day Years [...] on filedocumented in this encounter Care Teams Chip Unloader Relationship Specialty Start Date End Date Aviva Laws, LENNOX, C.N.P., PCP - General Family Medicine 12/11/20 09/23/21 M.S.N. [address], [place] [address] documented as of this encounter
--- OUTSIDE RECORDS SUMMARY | 2021-11-15 12:21 | XMS_ITS | Encounter Summary ---
:1940 Author Organization [facility] Address [address] [place] [address] Care Team Providers Name Role Phone Unavailable Primary Care Provider Unavailable Reason for Visit Reason Comments Med Refill Encounter Details Date Type Department Care Team Description 12/10/2020 Refill Department of Oncology in [place] M.B.B.S. Med Refill [place], [place] [address] [facility] [address] [place] [address] [place] [address] [phone] Social History Tobacco Use Types Packs/Day Years [...]
--- OUTSIDE RECORDS SUMMARY | 2021-11-15 12:21 | XMS_ITS | Encounter Summary ---
:1940 Author Organization [facility] Address [address] [place] [address] Care Team Providers Name Role Phone Veto Aviva Ruiz APRN C.N.P., M.S.N. Primary Care Provider +1 [phone] Encounter Details Date Type Department Care Team Description 01/18/2021 Clinical Communication Department of Oncology Kimberly Rios in [facility], Trace HIGHNJasson, [facility].S. 200 [facility] [address] [place] [address] [phone] Social History Tobacco Use Types Packs/Day Years [...] filedocumented in this encounter Care Teams Business Support Manager Relationship Specialty Start Date End Date Aviva Laws, LENNOX, C.N.P., PCP - General Family Medicine 12/11/20 09/23/21 M.S.N. [address], [place] [address] documented as of this encounter
--- OUTSIDE RECORDS SUMMARY | 2021-11-15 12:21 | XMS_ITS | Encounter Summary ---
:1940 Author Organization [facility] Address [address] [place] [address] Care Team Providers Name Role Phone Aviva Laws APRN, C.N.P., M.S.N. Primary Care Provider +1 -[phone] Reason for Visit Episode Based Medications (Routine) - Authorized Specialty Diagnoses / Procedures Referred By Contact Refer red To Contact Diagnoses Malignant Neoplasm Of Pancreas Adenocarcinoma (HCC) Neutropenia Chemotherapy Induced (HCC) Kimberly Rios, Rst Onc Trace Cespedes APRNN.Mandeep, M.S. [address] [facility] [address] [place] [phone] Referral ID Status Reason Start Date Expiration Date Visits V isits Requested Authorized [id number] Authorized 06/03/2020 06/03/2021 99 99 Encounter Details Date Type Department Care Team Description 12/22/2020 Lab Department of Infusion Nova Vivar Malig nant Neoplasm Of Pancreas Adenocarcinoma (HCC) (Primary Dx); [facility] Neutropenia Chemotherapy Induced (HCC) [place] [address] [place] [address] [place] [phone] Social History Tobacco Use Types Packs/Day Years [...] 06/19/2021 organizations such as jain groups, unions, fraPasteurization Technology Group ([employer]) or athletic groups, or school groups? How [...] Allen LAB BLOOD ADD-ON Performing Organization Address City/State/[facility] Code Phon e Number [facility] - [address] [place] [address] 05 [facility] [place] [place] [address] Laboratories-[facility] 200 [facility] (ABNORMAL) Comprehensive Metabolic Panel (12/22/2020 8:29 [...] DTL Nitrogen), S mg/dL 9:39 AM CDT Creatinine 0.90 0.59 - 12/22/2020 DTL 1.04 mg/dL 9:39 AM CDT eGFR-Non 61 >=60 12/22/2020 DTL Black/ mL/min/BSA 9:39 AM CDT Sierra Leonean Comment: ----ADDITIONAL INFORMATION---- Estimated GFR calculated using the 2008 CKD_EPI creatinine equation. eGFR-Black/ 71 >=60 mL/min/BSA [...] City/State/ZIP Code Phon e Number [facility] - [address] [place], [place] [address] [facility] [place] [address] Laboratories-[facility] [address] (ABNORMAL) CBC with Differential, Blood (12/22/2020 8:29 AM CDT) [facility] gist Method Time Signature Hemoglobin 10.1 (L) [...] Laterality Blood (Blood, 12/22/2020 8:29 AM 12/23/19 21 8:45 Venous) CDT AM CDT Nova ZamoraBChicoS. LAB BLOOD ADD-ON Performing Organization Address City/State/ZIP Code Phon e Number [facility] - [address] [place], [place] [address] [facility] [place] [address] Laboratories-[facility] [address] Magnesium (12/22/2020 8:29 AM CDT) athologist Signature Magnesium, S 2.3 1.7 - 2.3 12/22/2020 DTL mg/dL 9:43 AM CDT Specimen Anatomical Collection Method Collection Time Receive d Time (Source) Location / / Volume Laterality Blood (Blood, 12/22/2020 8:29 AM 12/23/19 8:40 Venous) CDT AM CDT Nova Allen LAB BLOOD ADD-ON Performing Organization Address City/State/ZIP Code Phon e Number [facility] - [address] [place], [place] [address] [facility] [place] [address] Laboratories-[facility] [address] documented in this [...] sampling. documented in this encounter Care Teams Drawing Tender Relationship Specialty Start Date End Date Aviva Laws, LENNOX, C.N.P., PCP - General Family Medicine 12/11/20 09/23/21 M.S.N. 2[address] [place] [address] documented as of this encounter
--- OUTSIDE RECORDS SUMMARY | 2021-11-15 12:21 | XMS_ITS | Encounter Summary ---
:1940 Author Organization [facility] Address [address] [place] [address] Care Team Providers Name Role Phone LawsAviva betts APRN, C.N.P., M.S.N. Primary Care Provider +1 -[phone] Reason for Referral Outpatient (Routine) - Closed Specialty Diagnoses / Procedures Referred By Contact Refer red To Contact Diagnoses Malignant Neoplasm Of Pancreas Adenocarcinoma (HCC) Kimberly Rios APRN, [facility] Procedures ONC Pump Disconnect C.N.P., M.S. [address] [place] [phone] Referral ID Status Reason Start Date Expiration Date Visits Requ ested Visits Authorized [id number] Closed 12/22/2020 12/22/2021 1 1 Reason for Visit Episode Based Medications (Routine) - Authorized Specialty Diagnoses / Procedures Referred By Contact Refer red To Contact Diagnoses Malignant Neoplasm Of Pancreas Adenocarcinoma (HCC) Neutropenia Chemotherapy Induced (HCC) Kimberly Rios, Rst Onc Rogo Trace HIGHN.P., M.S. 200 [facility] 200 [place] [phone] Referral ID Status Reason Start Date Expiration Date Visits V isits Requested Authorized [id number] Authorized 06/03/2020 06/03/2021 99 99 Encounter Details Date Type Department Care Team Description 12/22/2020 Infusion Department of Oncology Nova Vivar Malig nant Neoplasm Of Pancreas Adenocarcinoma (HCC) (Primary Dx); in [facility] blossom Allen Neutropenia Chemotherapy Induced (HCC) 200 200 [place] [address] [phone] Social History Tobacco Use Types Packs/Day Years [...] 46 hours continuous infusion via CADD pump #[id number] fosaprepitant 150 mg in NaCl 0.9% New [...] 0.9 % bolus 1,000 mL New Bag 12/22/2020 12:05 PM CDT 1,000 mL 1000 mL/hr 1,000 mL, intravenous, at 1,000 mL/hr, Administer over 1 Hours, Once, On Mon12/22/20 at 1200, For 1 dose ondansetron in NaCl 0.9% IVPB 16 mg New Bag 12/22/2020 12:25 P M CDT 16 mg 232 mL/hr (ZOFRAN) 16 mg, intravenous, at 232 mL/hr, Administer over 15 Minutes, Once, On Mon12/22/20 at 1200, For 1 dose oxaliplatin 100 mg in D5W 295 mL New Bag 12/22/2020 1:22 PM CD T 100 mg [...] Port documented in this encounter Care Teams Detective Private Eye Relationship Specialty Start Date End Date Aviva Laws APRN, C.N.P., PCP - General Family Medicine 12/11/20 09/23/21 M.S.N. [address] [address] documented as of this encounter
--- OUTSIDE RECORDS SUMMARY | 2021-11-15 12:21 | XMS_ITS | Encounter Summary ---
:1940 Author Organization [facility] Address [address] [place] [address] Care Team Providers Name Role Phone Aviva Laws APRN, C.N.PChico, M.S.N. Primary Care Provider +1 -[phone] Reason for Visit Reason Comments Other Discuss treatment plans for [place] infusion Appointment Request (Routine) - Closed Specialty Diagnoses / Procedures Referred By Contact Refer red To Contact Family Medicine Referral ID Status Reason Start Date Expiration Date Visits Requ ested Visits Authorized [id number] Closed 12/09/2020 12/09/2021 1 1 Encounter Details Date Type Department Care Team Description 12/11/2020 Office Visit Department of Family Aviva Laws, Neut ropenia Chemotherapy Induced (HCC) (Primary Dx); Medicine, Trace Donaldson APRNNJasson, Malignan t Neoplasm Of Pancreas Adenocarcinoma (HCC) Clinic, [facility] [address] [place], [place] [address] Social History Tobacco Use Types Packs/Day [...] 06/19/2021 organizations such as jewish groups, unions, fraOpen Source Food or athletic groups, or school groups? How [...] FOR VISIT Other (Discuss treatment plans for [place] infusion) HISTORY OF PRESENT ILLNESS Azeb العراقي is a pleasant 80 y.o. female who presents to the clinic today to establish care tofacilitate chemotherapy pump disconnects with the infusion therapy department. Receiving chemotherapy for pancreatic adenocarcinoma-managed by [facility]/ONC- JAZMIN Rios ([place])-last follow up 12/09/20. Finishing up outpatient chemotherapy [...] calcium level ) 180 capsule 3 ??? kjkwzpn-V5-gisl-copper-marlo (Citracal-D3 Maximum Plus) 325 mg-12.5 mcg - [...] to port access). 30 g 0 ??? dndywd-vqmvpfgr-ttipwii (CREON) 24,000-76,000-120,[address] capsule Take [...] Of Pancreas Adenocarcinoma (HCC) Follow up in [place] per schedule 12/22/20. Please contact us here in [place] with questions or concerns. PATIENT EDUCATION Ready to learn, no apparent learning barriers were identified; learning preferences include listening. Explained diagnosis and treatment plan; patient expressed understanding of the content, discussed at length. All questions answered. Aviva Laws APRN, Harleen.N.Hossein., M.S.N. documented in this encounter Plan of Treatment Not on filedocumented as of this encounter Visit Diagnoses Diagnosis Neutropenia Chemotherapy Induced (HCC) - Primary Malignant Neoplasm Of Pancreas Adenocarc inoma (HCC) documented in this encounter Care Teams Front Desk Agent Relationship Specialty Start Date End Date Aviva Laws APRN, C.N.P., PCP - General Family Medicine 12/11/20 09/23/21 M.S.N. [address] [address] documented as of this encounter
--- OUTSIDE RECORDS SUMMARY | 2021-11-15 12:21 | XMS_ITS | Encounter Summary ---
:1940 Author Organization [facility] Address [address] [place] [address] Care Team Providers Name Role Phone VetoAviva APRN, C.NJasson, M.S.N. Primary Care Provider +1 -[phone] Reason for Referral Outpatient (Routine) - Closed Specialty Diagnoses / Procedures Referred By Contact Refer red To Contact Oncology Kimberly Rios APRN, [facility] [address] [place] [phone] Referral ID Status Reason Start Date Expiration Date Visits Requ ested Visits Authorized [id number] Closed 12/14/2020 12/14/2021 1 1 Scheduling Instructions Please override appt per Kimberly Rios. Thank you Encounter Details Date Type Department Care Team Description 12/14/2020 Clinical Communication Department of Oncology Kimberly Rios in [place] APRN, [facility] 200 [facility] [address] [place] [address] [phone] Social History Tobacco Use Types Packs/Day Years [...] 06/19/2021 organizations such as orthodox groups, unions, fraSilicon Frontline Technology or athletic groups, or school groups? [...] on filedocumented in this encounter Care Teams Allied Health Teacher Relationship Specialty Start Date End Date Aviva Laws APRN, C.N.P., PCP - General Family Medicine 12/11/20 09/23/21 M.S.N. [address], [place] [address] documented as of this encounter
--- OUTSIDE RECORDS SUMMARY | 2021-11-15 12:21 | XMS_ITS | Encounter Summary ---
:1940 Author Organization [facility] Address [address] [place] [address] Care Team Providers Name Role Phone Aviva Laws APRN, C.N.P., M.S.N. Primary Care Provider +1 -[phone] Reason for Referral Outpatient (Routine) - Closed Specialty Diagnoses / Procedures Referred By Contact Refer red To Contact Diagnoses Malignant Neoplasm Of Pancreas Adenocarcinoma (HCC) Neutropenia Chemotherapy Induced (HCC) Hyperbilirubinemia Kimberly Rios APRN, [facility] Procedures ERCP C.N.P., M.S. [address] [place] [phone] Referral ID Status Reason Start Date Expiration Date Visits Requ ested Visits Authorized [id number] Closed 01/18/2021 01/18/2022 1 1 Reason for Visit Episode Based Medications (Routine) - Authorized Specialty Diagnoses / Procedures Referred By Contact Refer red To Contact Diagnoses Malignant Neoplasm Of Pancreas Adenocarcinoma (HCC) Neutropenia Chemotherapy Induced (HCC) Kimberly Rios, Rst Onc Rogo Trace HIGHNChicoP., M.S. [address] [facility] [address] [place] [phone] Referral ID Status Reason Start Date Expiration Date Visits V isits Requested Authorized [id number] Authorized 06/03/2020 06/03/2021 99 99 Encounter Details Date Type Department Care Team Description 01/18/2021 Office Visit Department of Gabriel, Hyperbilirubin emia (Primary Dx); Oncology in Kimberly LENNOX Phillips, Malignant Israel plasm Of Pancreas Adenocarcinoma (HCC); [place], [place] Frank M.S. Neutropenia Chemotherapy Induced (HCC); [address] Secondary Malignant Neoplasm Lymph Node (HCC) [place] [address] [phone] Social History Tobacco Use Types Packs/Day Years [...] APRN, C.N.Hossein., M.S.N. LOCAL ONCOLOGIST No care donor services team leader to display PRIMARY TEHACHAPI ONCOLOGIST Nova Vivar M.B.B.S. Kimberly Rios APRN, [...] periaortic, and mesenteric lymph nodes was reported ([facility] review). 3.) 05/25/2020 CA 19-9 178 [...] and the Common Hereditary Cancers panel from [facility]. 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 The MUTYH gene is associated with an [...] calcium level ) 180 capsule 3 ??? usneaui-M0-arvv-copper-marlo (Citracal-D3 Maximum Plus) 325 mg-12.5 mcg - [...] to port access). 30 g 0 ??? yuiymo-suvsbkmm-ubrniyz (CREON) 24,000-76,000-120,[address] capsule Take [...] is hoping to transfer her care to [place] so she would not have to drive to [place] this winter. A bit concerned that she [...] (HCC) documented in this encounter Care Teams Drawing Supervisor Relationship Specialty Start Date End Date Aviva Laws APRN, C.N.P., PCP - General Family Medicine 12/11/20 09/23/21 M.S.N. [address] [address] documented as of this encounter
--- OUTSIDE RECORDS SUMMARY | 2021-11-15 12:21 | XMS_ITS | Encounter Summary ---
:1940 Author Organization [facility] Address [address] [place] [address] Care Team Providers Name Role Phone Aviva Laws APRN, C.N.Hossein., M.S.N. Primary Care Provider +1 [phone] Reason for Referral MRI/CAT/PET Scan (Routine) - Closed Specialty Diagnoses / Procedures Referred By Contact Refer red To Contact Radiology Diagnoses Malignant Neoplasm Of Pancreas Adenocarcinoma (HCC) [facility] CT Abdomen Pelvis with IV Contrast C.N.P., M.S. 200 [place] [address] Referral ID Status Reason Start Date Expiration Date Visits Requ ested Visits Authorized [id number] Closed 12/09/2020 12/09/2021 1 1 Reason for Visit MRI/CAT/PET Scan (Routine) - Closed Specialty Diagnoses / Procedures Referred By Contact Refer red To Contact Radiology Diagnoses Malignant Neoplasm Of Pancreas Adenocarcinoma (HCC) Kimberly [facility]ios [facility] Procedures CT Chest with IV Contrast CT Chest without IV Contrast C.N.P., M.S. [address] [place] [phone] Referral ID Status Reason Start Date Expiration Date Visits Requ ested Visits Authorized [id number] Closed 12/09/2020 12/09/2021 1 1 Encounter Details Date Type Department Care Team Description 12/22/2020 Hospital Encounter Department of Vi Rios Neoplasm Of Radiology, [place] Kimberly L, DOUGH SHEETER, Pancreas A denocarcinoma Building, in C.N.P., M.S. ([facility]) [place], [address] [place], [place] 200 [facility] [phone] (Work) [phone] Social History Tobacco Use Types Packs/Day Years [...] Sig Dispensed Refills Start Date End Date yqrnokl-J7-afqx-copper-m Take by mouth. 0 021 angan (Citracal-D3 [...] 4 (four) per tablet times a day. sjtdpz-fxetpzds-ikozeze Take 2 capsules by 360 capsule 3 [...] enlarged right hilar lymph node are stable. Kimberly Rios APRN C.N.P., M.S. IMG CT PROCEDURES CT Abdomen [...] discharge. documented in this encounter Care Teams Medical Surgery Nurse Relationship Specialty Start Date End Date Aviva Laws APRN, C.N.P., PCP - General Family Medicine 12/11/20 09/23/21 M.S.N. [address] [address] documented as of this encounter
--- OUTSIDE RECORDS SUMMARY | 2021-11-15 12:21 | XMS_ITS | Encounter Summary ---
:1940 Author Organization [facility] Address [address] [place] [address] Care Team Providers Name Role Phone Aviva Laws APRN, C.N.P., M.S.N. Primary Care Provider +1 -[phone] Reason for Visit Reason Comments Neulasta Treatment letter referral to [facility] Encounter Details Date Type Department Care Team Description 12/09/2020 Clinical Communication Department of Munir Rios Treatment Oncology in Kimberly Phillips APRN, letter; refer ral to Frank Obrien, M.S. [facility] [address] [facility] [address] [place] [address] [phone] Social History Tobacco Use Types Packs/Day Years [...] just an FYI, patient contacted Diana at [facility] and wants a referral to [facility] so she can have her pump dc'd there and her neulasta treatments done there instead of [place]. I will fax over demographics, office notes, labs, reports, etc to her at [phone]. Thank you, Vani RST ONC ROGO TUB WASH OPERATOR POD 1 Telephone Encounter - Tonya Sinclair R.N., O.C.N. - 12/09/2020 3:31 PM CDT ----- Message from Kimberly Rios APRN, C.N.P., M.S. sent at 12/09/2020 2:41 PM CDT ----- I guess patient gets her pump dc'd in [place]. I want her to get neulasta there as well and the chemo nurse called them and they said they do not use the [place] plan. They need to have a treatment letter. Could someone do that for Neulasta to be administered on the day she has her pump disconnected. Thank you. documented in this encounter Plan of Treatment Not on filedocumented as of this encounter Visit Diagnoses Not on filedocumented in this encounter Care Teams Electrical And Electronic Assembler Relationship Specialty Start Date End Date Aviva Laws APRN, C.N.P., PCP - General Family Medicine 12/11/20 09/23/21 M.S.N. [address] [place] [address] documented as of this encounter
--- OUTSIDE RECORDS SUMMARY | 2021-11-15 12:21 | XMS_ITS | Encounter Summary ---
:[address] [facility] Address [address] [place] [address] Care Team Providers Name Role Phone Aviva Laws APRN, C.N.P., M.S.N. Primary Care Provider +1 -[phone] Reason for Referral Outpatient (Routine) - Closed Specialty Diagnoses / Procedures Referred By Contact Refer red To Contact Diagnoses Malignant Neoplasm Of Pancreas Adenocarcinoma (HCC) Kimberly Rios APRN, [facility] Procedures ONC Pump Disconnect C.N.P., M.S. [address] [place] [phone] Referral ID Status Reason Start Date Expiration Date Visits Requ ested Visits Authorized [id number] Closed 01/18/2021 01/18/2022 1 1 Reason for Visit Episode Based Medications (Routine) - Authorized Specialty Diagnoses / Procedures Referred By Contact Refer red To Contact Diagnoses Malignant Neoplasm Of Pancreas Adenocarcinoma (HCC) Neutropenia Chemotherapy Induced (HCC) Kimberly Rios, Rst Onc Rogo Trace HIGHNAbdirashid., M.S. [address] [facility] [address] [place] [phone] Referral ID Status Reason Start Date Expiration Date Visits V isits Requested Authorized [id number] Authorized 06/03/2020 06/03/2021 99 99 Encounter Details Date Type Department Care Team Description 01/18/2021 Infusion Department of Oncology Filikristina Kimberly Cb lignant Neoplasm Of Pancreas Adenocarcinoma (HCC) (Primary Dx); in [place]greg[place], L, Trace HIGHNAbdirashid., Neutropeni a Chemotherapy Induced (HCC) [place] M.S. 200 200 [place] [phone] Social History Tobacco Use Types Packs/Day Years [...] 46 hours continuous infusion via CADD pump #[id number] fosaprepitant in NaCl 0.9% IVPB New Bag [...] medication. documented in this encounter Care Teams Marketing Information Manager Relationship Specialty Start Date End Date Aviva Laws APRN, C.N.P., PCP - General Family Medicine 12/11/20 09/23/21 M.S.N. [address] [address] (work) documented as of this encounter
--- OUTSIDE RECORDS SUMMARY | 2021-11-15 12:21 | XMS_ITS | Encounter Summary ---
:1940 Author Organization [facility] Address [address] [place] [address] Care Team Providers Name Role Phone Aviva Laws Sara HIGH C.N.P., M.S.N. Primary Care Provider +1 -[phone] Encounter Details Date Type Department Care Team Description 01/19/2021 Orders Only Department of Oncology in [place], [place] Belinda HIGH., M.S. [address] [facility] [address] [place] [address] [place], [place] [phone] (Wo rk) Social History Tobacco Use Types [...] as of this encounter Care Teams Door To Door Salesman Relationship Specialty Start Date End Date Aviva Laws APRN, C.N.P., PCP - General Family Medicine 12/11/20 09/23/21 M.S.[place] [address] [address] documented as of this encounter
--- OUTSIDE RECORDS SUMMARY | 2021-11-15 12:21 | XMS_ITS | Encounter Summary ---
:1940 Author Organization [facility] Address [address] [place] [address] Care Team Providers Name Role Phone Aviva Laws APRN C.N.PChico, M.S.N. Primary Care Provider +1 -[phone] Encounter Details Date Type Department Care Team Description 01/18/2021 Clinical Communication Department of Vel Aleman, Medicine, Lynch Harleen HIGH.N.P[place], Clinic, in [facility] 2199 [address]199 [facility] [place] [phone] Social History Tobacco Use Types Packs/Day Years [...] filedocumented in this encounter Care Teams Manager Finance Relationship Specialty Start Date End Date Aviva Laws APRN, C.N.P., PCP - General Family Medicine 12/11/20 09/23/21 M.S.N. [address] [place] [address] documented as of this encounter
--- OUTSIDE RECORDS SUMMARY | 2021-11-15 12:21 | XMS_ITS | Encounter Summary ---
:1940 Author Organization [facility] Address [address] [place] [address] Care Team Providers Name Role Phone Aviva Laws APRN, C.N.P., M.S.N. Primary Care Provider +1 -[phone] Reason for Visit Episode Based Medications (Routine) - Authorized Specialty Diagnoses / Procedures Referred By Contact Refer red To Contact Diagnoses Malignant Neoplasm Of Pancreas Adenocarcinoma (HCC) Neutropenia Chemotherapy Induced (HCC) Kimberly Rios, Rst Onc Coy HIGH C.N.P., M.S. [address] [facility] [address] [place] [phone] Referral ID Status Reason Start Date Expiration Date Visits V isits Requested Authorized [id number] Authorized 06/03/2020 06/03/2021 99 99 Encounter Details Date Type Department Care Team Description 01/04/2021 Office Visit Department of Nova Vivar, Malignant Neop lasm Of Pancreas Adenocarcinoma (HCC); Oncology in M.B.B.S. Neutropenia Chemotherapy Induced (HCC) [place], [place] [address] [facility] [address] [place] [phone] Social History Tobacco Use Types Packs/Day Years [...] 06/19/2021 organizations such as congregational groups, unions, fraMashWorx or athletic groups, or school groups? How [...] PROVIDER Kimberly Rios APRN, C.N.P., M.S. [address] [place] [phone] LOCAL ONCOLOGIST No care steam crane operator to display PRIMARY [place] ONCOLOGIST Nova Vivar M.B.B.S. Kimberly Rios APRN, [...] periaortic, and mesenteric lymph nodes was reported ([facility] review). 3.) 05/25/2020 [place] 19-9 178 [...] and the Common Hereditary Cancers panel from [facility] lab. 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 The MUTYH gene is associated with an [...] of care as described above. This include pkqu-yk-arkb and non fukh-cj-hrhu time. documented in this encounter Plan of Treatment Not on filedocumented as of this encounter Visit Diagnoses Diagnosis Malignant Neoplasm Of Pancreas Adenocarc inoma (HCC) Neutropenia Chemotherapy Induced (HCC) documented in this encounter Care Teams Principal Clerk Relationship Specialty Start Date End Date Aviva Laws APRN, C.N.P., PCP - General Family Medicine 12/11/20 09/23/21 M.S.N. [address] [phone] documented as of this encounter
--- OUTSIDE RECORDS SUMMARY | 2021-11-15 12:21 | XMS_ITS | Encounter Summary ---
:1940 Author Organization [facility] Address [address] [place] [address] Care Team Providers Name Role Phone Aviva Laws APRN C.N.PChico, M.S.N. Primary Care Provider +1 -[phone] Reason for Visit Outpatient (Routine) - Closed Specialty Diagnoses / Procedures Referred By Contact Refer red To Contact Oncology Kimberly Rios [facility] 200 [place], [place] [address] Referral ID Status Reason Start Date Expiration Date Visits Requ ested Visits Authorized [id number] Closed 12/14/2020 12/14/2021 1 1 Encounter Details Date Type Department Care Team Description 12/22/2020 Office Visit Department of Kimberly Rios N eoplasm Of Oncology in [place] Phillips C.N.PCh[place], Pancreas Ad enocarcinoma [facility] (HCC) (Primary Dx) [address] [place] [address] 200 [place] [phone] Social History Tobacco Use Types Packs/Day Years [...] Do you belong to any clubs or [employer] 06/19/2021 organizations such as adventist groups, unions, [...] APRN, C.N.Hossein., M.S.N. LOCAL ONCOLOGIST No care team manager to display PRIMARY PATERSON ONCOLOGIST Nova Vivar M.B.B.S. Kimberly Rios APRN, C.N.P., M.S. CHIEF COMPLAINT / REASON FOR VISIT Azeb العرقاي is a 80 y.o. female who presents [...] periaortic, and mesenteric lymph nodes was reported ([facility] review). 3.) 05/25/2020 [place] 19-9 178 [...] and the Common Hereditary Cancers panel from [facility] lab. 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 The MUTYH gene is associated with an [...] calcium level ) 180 capsule 3 ??? temaxvc-H3-lpjn-copper-marlo (Citracal-D3 Maximum Plus) 325 mg-12.5 mcg - [...] a day. 60 tablet 2 ??? [DISCONTINUED] rzltdf-qghnonhr-cfxwelf (CREON) 24,000-76,000-120,[address] capsule Take [...] 10 mL 10 mL intravenous During hospitalization eLxx Horne M.D. 10 mL at 12/22/20 0745 [...] also working on transitioning her care to [facility]. She stated full understandingand agreement the plan. [...] Primary documented in this encounter Care Teams Environment Coordinator Relationship Specialty Start Date End Date Aviva Laws APRN, C.N.P., PCP - General Family Medicine 12/11/20 09/23/21 M.S.N. [address] [phone] documented as of this encounter
--- OUTSIDE RECORDS SUMMARY | 2021-11-15 12:21 | XMS_ITS | Encounter Summary ---
:1940 Author Organization [facility] Address [address] [place] [address] Care Team Providers Name Role Phone Aviva Lwas APRN, C.N.P., M.S.N. Primary Care Provider +1 -[phone] Reason for Visit Reason Comments Sx-constipation Encounter Details Date Type Department Care Team Description 01/20/2021 Clinical Communication Department of Andrew Sx- constipation Oncology in [place] Cespedes [place], [address] [place], [place] [address] [place] [phone] [place] [address] Social History Tobacco Use Types Packs/Day Years [...] Mrs. العراقي received FOLFIRINOX on 01/18/21 at [facility]. She reports she has been constipated since [...] will proceed to the Emergency Department in [place]. Disposition/Recommendation: recommended to report to the nearest [...] a hemorrhoid. Thank you, Vani RST ONC ROGO BOOKKEEPING CLERK POD 1 documented in this encounter Plan of Treatment Not on filedocumented as of this encounter Visit Diagnoses Not on filedocumented in this encounter Care Teams Carton Packaging Machine Operator Relationship Specialty Start Date End Date Aviva Laws APRN, C.N.P., PCP - General Family Medicine 12/11/20 09/23/21 M.S.N. [address] [phone] documented as of this encounter
--- OUTSIDE RECORDS SUMMARY | 2021-11-15 12:21 | XMS_ITS | Encounter Summary ---
:1940 Author Organization [facility] Address 200 [place] [address] Care Team Providers Name Role Phone LawsAviva betts APRN C.N.P., M.S.N. Primary Care Provider +1 -[phone] Reason for Visit Outpatient (Routine) - Closed Specialty Diagnoses / Procedures Referred By Contact Refer red To Contact Diagnoses Malignant Neoplasm Of Pancreas Adenocarcinoma (HCC) [facility] Procedures ONC Pump Disconnect C.N.P., M.S. 200 [place], [place] [address] Referral ID Status Reason Start Date Expiration Date Visits Requ ested Visits Authorized [id number] Closed 01/18/2021 01/18/2022 1 1 Encounter Details Date Type Department Care Team Description 01/20/2021 Infusion Department of Infusion Kimberly Rios Ma lignant Neoplasm Of Pancreas Adenocarcinoma (HCC) (Primary Dx); Therapy in Alan Donaldson APRN C.N.PCh[place], Jesus tropenia Chemotherapy Induced (HCC) [facility] 2[address] 200 [place] [phone] Social History Tobacco Use Types Packs/Day Years [...] sampling. documented in this encounter Care Teams Order Schedule Clerk Relationship Specialty Start Date End Date Aviva Laws APRN, C.N.P., PCP - General Family Medicine 12/11/20 09/23/21 [place] [address] [place] [address] [phone] documented as of this encounter
--- OUTSIDE RECORDS SUMMARY | 2021-11-15 12:21 | XMS_ITS | Encounter Summary ---
:1940 Author Organization [facility] Address [address] [place] [address] Care Team Providers Name Role Phone Veto Aviva Ruiz APRN, C.N.P., M.S.N. Primary Care Provider +1 -[phone] Reason for Visit Reason Onset Date Comments Outpatient COVID-19 Testing 01/22/2021 Encounter Details Date Type Department Care Team Description 01/22/2021 External Outreach Department of French Medrano And Internal Medicine in [place] (Suspected) Exposure [place], [place] [address] To COVID-19 (Primary [address] [place], [place] Dx) [place] [phone] Social History Tobacco Use [...] RNA, V Asymptomatic (01/23/2021 10:10 AM CDT) [facility] Method Time Signature SARS-CoV-2 Swab, 01/23/2021 MKTO Specimen Nasopharynx 10:56 PM Source CDT SARS CoV-2 Undetected Undetected 01/23/2021 MKTO RNA, TMA 10:56 PM CDT Comment: SARS-CoV-2 [...] pe rformed using the Aptima SARS-CoV-2 assay ([employer] on the [employer] tem under emergency use authorization (EUA) by the U.S. Food and Drug Administ ration. Fact sheets for this EUA assay can be fo und at the following links: For Healthcare Providers: https://www.[employer] a.gov/media/655546/download For Patients: https://www.fda.gov/media/ 412588/download Specimen Anatomical Collection Method Collection Time Receive d Time (Source) Location / / Volume Laterality Varies 01/23/2021 10:10 01/23/2021 5:03 (Nasopharynx) AM CDT PM CDT French Medrano D.O. LAB MICROBIOLOGY - GENERAL O RDERABLES Performing Organization Address City/State/ZIP Code Phon e Number [facility]- [address] [place] [address] [place] [address] documented in this encounter Visit Diagnoses Diagnosis Contact With And (Suspected) Exposure To COVID-19 - Primary documented in this encounter Additional Health Concerns Infection Onset Date Last Indicated Resolved Time COVID19 Pending 01/22/2021 01/22/2021 01/22/2021 10:33 AM CDT COVID19 Pending 01/22/2021 01/23/2021 01/23/2021 10:57 PM CDT documented as of this encounter Care Teams J2Ee Architect Relationship Specialty Start Date End Date Aviva Laws APRN, C.N.P., PCP - General Family Medicine 12/11/20 09/23/21 M.S.N. [address], [place] [address] documented as of this encounter
--- OUTSIDE RECORDS SUMMARY | 2021-11-15 12:21 | XMS_ITS | Encounter Summary ---
:1940 Author Organization [facility] Address [address] [place] [address] Care Team Providers Name Role Phone LawsAviva betts APRN, C.N.P., M.S.N. Primary Care Provider +1 -[phone] Reason for Visit Outpatient (Routine) - Closed Specialty Diagnoses / Procedures Referred By Contact Refer red To Contact Diagnoses Malignant Neoplasm Of Pancreas Adenocarcinoma (HCC) Kimberly Rios APRN, [facility] Procedures ONC Pump Disconnect C.N.P., M.S. 200 [place], [place] [phone] Referral ID Status Reason Start Date Expiration Date Visits Requ ested Visits Authorized [id number] Closed 12/22/2020 12/22/2021 1 1 Encounter Details Date Type Department Care Team Description 12/24/2020 Infusion Department of Infusion Kimberly Rios Ma lignant Neoplasm Of Therapy in [place] APRN C.N.P[place], Sigala creas Adenocarcinoma [facility] (HCC) (Primary Dx) [address] [place] [phone] Social History Tobacco Use Types Packs/Day Years [...] intra-catheter, As needed, line care, Starting on Laial 12/24/20 at 1512, When no infusion to [...] sampling. documented in this encounter Care Teams Shag Truck Driver Relationship Specialty Start Date End Date Aviva Laws APRN, C.N.P., PCP - General Family Medicine 12/11/20 09/23/21 M.S.N. [address] [phone] documented as of this encounter
--- OUTSIDE RECORDS SUMMARY | 2021-11-15 12:22 | XMS_ITS | Encounter Summary ---
:1940 Author Organization [facility] Address [address] [place] [address] Care Team Providers Name Role Phone Unavailable Primary Care Provider Unavailable Reason for Visit Reason Comments Chemotherapy Outpatient (Routine) - Closed Specialty Diagnoses / Procedures Referred By Contact Refer red To Contact Diagnoses Malignant Neoplasm Of Pancreas Adenocarcinoma (HCC) Kimberly Rios APRN, [facility] Procedures ONC Pump Disconnect C.N.P., M.S. 200 [place] [address] Referral ID Status Reason Start Date Expiration Date Visits Requ ested Visits Authorized [id number] Closed 11/24/2020 11/24/2021 1 1 Encounter Details Date Type Department Care Team Description 11/26/2020 Infusion Department of Infusion Kimberly Rios Ma lignant Neoplasm Of Therapy in [facility], [place], C.N.P., Sigala creas Adenocarcinoma [facility] (HCC) (Primary Dx) [address] [place] [phone] Social History Tobacco Use Types Packs/Day Years [...] Do you belong to any clubs or [employer] 06/19/2021 organizations such as caodaism groups, unions, fraZigswitch or athletic groups, or school groups? How [...]
--- OUTSIDE RECORDS SUMMARY | 2021-11-15 12:22 | XMS_ITS | Encounter Summary ---
:1940 Author Organization [facility] Address [address] [place] [address] Care Team Providers Name Role Phone Unavailable Primary Care Provider Unavailable Reason for Visit Reason Comments Med Refill loperamide Encounter Details Date Type Department Care Team Description 12/01/2020 Refill Department of Oncology Nova Vivar Med R efill (loperamide ) in [facility] M.B.B.S. [address] [facility] [address] [place] [address] [place], [place] [phone] Social History Tobacco Use Types Packs/Day Years [...]
--- OUTSIDE RECORDS SUMMARY | 2021-11-15 12:22 | XMS_ITS | Encounter Summary ---
:1940 Author Organization [facility] Address [address] [place] [address] Care Team Providers Name Role Phone Unavailable Primary Care Provider Unavailable Encounter Details Date Type Department Care Team Description 10/28/2020 Orders Only Department of Oncology in [place], [place] Frank HIGH, M.S. [address] [facility] [address] [place] [address] [place], [place] [phone] (Wo rk) Social History Tobacco Use Types [...]
--- OUTSIDE RECORDS SUMMARY | 2021-11-15 12:22 | XMS_ITS | Encounter Summary ---
:1940 Author Organization [facility] Address [address] [place] [address] Care Team Providers Name Role Phone Unavailable Primary Care Provider Unavailable Reason for Visit Episode Based Medications (Routine) - Authorized Specialty Diagnoses / Procedures Referred By Contact Refer red To Contact Diagnoses Malignant Neoplasm Of Pancreas Adenocarcinoma (HCC) Neutropenia Chemotherapy Induced (HCC) Kimberly Rios, Rsmarleen Onc Coy HIGH C.N.P., M.S. [address] [place] [address] [address] [place] [phone] Referral ID Status Reason Start Date Expiration Date Visits V isits Requested Authorized [id number] Authorized 06/03/2020 06/03/2021 99 99 Encounter Details Date Type Department Care Team Description 10/28/2020 Lab Department of Infusion Nova Vivar Malig nant [facility] Pancreas Adenocarcinoma [place] [address] [place] [address] (HCC) (Primary Dx) [address] [place] [phone] Social History Tobacco Use Types Packs/Day Years [...] Do you belong to any clubs or Liv[employer] Panels 06/19/2021 organizations such as pentecostal groups, unions, [...] panel and the Pancreatic Cancer panel through [employer]. I spoke with her over the telephone regarding her genetic testing results and the results were also shared over the patient online portal. IMPRESSION/REPORT/PLAN RESULTS I spoke with Ms. العراقي regarding her genetic testing results. Genetic testing included analysis of 49genes related to hereditary cancer. 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 The MUTYH gene associated with an autosomal [...] interested in undergoing genetic testing can visit [email or web address] to find a genetic counselor in their area. We would also be happyto see any family members at [facility]. Our appointment line is . PERSONAL AND [...] test and digital rectal examinations (DREs). The [place] [employer] currently recommends that men at [...] family members may consider meeting with a tractor trailer mechanic and discussing the benefits/limitations of undergoing screening [...] recommendations, such as those made by the [place] [employer], do remain appropriate. PLAN We [...] ults section. documented in this encounter Results Misc. [employer] (10/28/2020 6:53 AM CDT) athologist Signature Test Name Tod 10/28/2020 INV Custom Panel 10:32 AM CDT Result SEE COMMENT 11/10/2020 INV 10:47 AM CDT Comment: For final report, select Lab-Send Out L ab Results hyperlink below. Specimen Anatomical Collection Method Collection Time Receive d Time (Source) Location / / Volume Laterality Varies 10/28/2020 6:53 AM CDT 10:32 AM CDT Narrative This result has an attachment that is no t available. [place] M.D. LAB [facility] ORDERABLES Performing Organization Address City/State/ZIP Code Phon e Number [facility] [address] [place] [phone] INV [facility] [address] [phone] Bilirubin, Direct (10/28/2020 6:53 AM CDT) athologist Signature Bilirubin, <0.2 0.0 - 0.3 10/28/2020 DTL Direct, S mg/dL 7:42 AM CDT Specimen Anatomical Collection Method Collection Time Receive d Time (Source) Location / / Volume Laterality Blood (Blood, 10/28/2020 6:53 AM 10/29/19 7:05 Venous) CDT AM CDT Nova ZamoraBChicoS[place] LAB BLOOD ADD-ON Performing Organization Address City/State/ZIP Code Phon e Number [facility] - 200 [place], [place] [address] [facility] [place] [address] Laboratories-[facility] [address] [facility] (ABNORMAL) Comprehensive Metabolic Panel (10/28/2020 6:53 AM [...] DTL Nitrogen), S mg/dL 7:41 AM CDT Creatinine 0.81 0.59 - 10/28/2020 DTL 1.04 mg/dL 7:41 AM CDT eGFR-Non 70 >=60 10/28/2020 DTL Black/ mL/min/BSA 7:41 AM CDT Kittitian Comment: ----ADDITIONAL INFORMATION---- Estimated GFR calculated using [...] Organization Address City/State/ZIP Code Phon e Number [facility] - 200 [place], [place] [address] [facility] [place] [address] Laboratories-[facility] 200 [address] [facility] (ABNORMAL) CBC with Differential, Blood (10/28/2020 6:53 AM CDT) [facility] Method Time Signature Hemoglobin 9.6 (L) [...] 10/29/19 7:06 Venous) CDT AM CDT Nova ZamoraB.S. LAB BLOOD ADD-ON Performing Organization Address City/State/ZIP Code Phon e Number [facility] - 200 [place], [place] [address] [place] [address] Laboratories-[address] Magnesium (10/28/2020 6:53 AM CDT) P athologist Signature Magnesium, S 2.2 1.7 - 2.3 10/28/2020 DTL mg/dL 7:41 AM CDT Specimen Anatomical Collection Method Collection Time Receive d Time (Source) Location / / Volume Laterality Blood (Blood, 10/28/2020 6:53 AM 10/29/19 7:05 Venous) CDT AM CDT Nova McnealS. LAB BLOOD ADD-ON Performing Organization Address City/[facility] Phon e Number [facility] - [address] [address] [address] documented in this encounter Visit Diagnoses [...]
--- OUTSIDE RECORDS SUMMARY | 2021-11-15 12:22 | XMS_ITS | Encounter Summary ---
:1940 Author Organization [facility] Address [address] [place] [address] Care Team Providers Name Role Phone Aviva Laws APRN, C.N.P., M.S.N. Primary Care Provider +1 [phone] Encounter Details Date Type Department Care Team Description 12/09/2020 Orders Only Department of Infusion Karen Leblanc, Therapy in [facility] [address] [place] [phone] Social History Tobacco Use Types Packs/Day Years [...] on filedocumented in this encounter Care Teams Investigation Lieutenant Relationship Specialty Start Date End Date Aviva Laws, LENNOX, C.N.P., PCP - General Family Medicine 12/11/20 09/23/21 M.S.N. [address] [place] [address] documented as of this encounter
--- OUTSIDE RECORDS SUMMARY | 2021-11-15 12:22 | XMS_ITS | Encounter Summary ---
:1940 Author Organization [facility] Address [address] [place] [address] Care Team Providers Name Role Phone Unavailable Primary Care Provider Unavailable Reason for Visit Outpatient (Routine) - Closed Specialty Diagnoses / Procedures Referred By Contact Refer red To Contact Diagnoses Malignant Neoplasm Of Pancreas Adenocarcinoma (HCC) Kimberly Rios APRN, [facility] Procedures ONC Pump Disconnect C.N.P., M.S. 200 [place] [address] Referral ID Status Reason Start Date Expiration Date Visits Requ ested Visits Authorized [id number] Closed 09/01/2020 09/01/2021 5 5 Encounter Details Date Type Department Care Team Description 11/12/2020 Infusion Department of Infusion Kimberly Rios Ma lignant Neoplasm Of Therapy in [facility], LENNOX, C.N.P., Sigala creas Adenocarcinoma [facility].. (HCC) (Primary Dx) [address] [place] [phone] Social History Tobacco Use [...] 06/19/2021 organizations such as gnosticism groups, unions, fra[employer] [place] or athletic groups, or school groups? How [...]
--- OUTSIDE RECORDS SUMMARY | 2021-11-15 12:22 | XMS_ITS | Encounter Summary ---
:1940 Author Organization [facility] Address [address] [place] [address] Care Team Providers Name Role Phone Unavailable Primary Care Provider Unavailable Reason for Visit Outpatient (Routine) - Closed Specialty Diagnoses / Procedures Referred By Contact Refer red To Contact Diagnoses Malignant Neoplasm Of Pancreas Adenocarcinoma (HCC) Nova Vivar M.B.B.S. [facility] Procedures ONC Pump Disconnect [address] [place], [place] [address] Referral ID Status Reason Start Date Expiration Date Visits Requ ested Visits Authorized [id number] Closed 10/28/2020 10/28/2021 1 1 Encounter Details Date Type Department Care Team Description 10/30/2020 Infusion Department of Infusion Nova Vivar Malig nant Neoplasm Of Therapy in [facility]era DonaldsonB.S. Pancreas Adenocarcinoma [place] [address] [facility] (HCC) (Primary Dx) [address] [facility] [place] [phone] Social History Tobacco Use Types Packs/Day Years [...] organizations such as jehovah's witness groups, unions, [employer] or athletic groups, or school groups? How [...]
--- OUTSIDE RECORDS SUMMARY | 2021-11-15 12:22 | XMS_ITS | Encounter Summary ---
:1940 Author Organization [facility] Address [address] [place] [address] Care Team Providers Name Role Phone Veto Harleen Rubi APRN.N.Hossein., M.S.N. Primary Care Provider [phone] [phone] Encounter Details Date Type Department Care Team Description 11/24/2020 Clinical Communication Department of Oncology Kimberly Rios in [facility], Trace HIGHNJasson, [facility].S. 200 [facility] [address] [place] [phone] Social History Tobacco Use Types Packs/Day Years [...] filedocumented in this encounter Care Teams Chief Informatics Officer Relationship Specialty Start Date End Date Aviva Laws APRN, C.N.P., PCP - General Family Medicine 12/11/20 09/23/21 M.S.N. [address], [place] [address] documented as of this encounter
--- OUTSIDE RECORDS SUMMARY | 2021-11-15 12:22 | XMS_ITS | Encounter Summary ---
:[address] [facility] Address [address] [place] [address] Care Team Providers Name Role Phone Unavailable Primary Care Provider Unavailable Reason for Visit Episode Based Medications (Routine) - Authorized Specialty Diagnoses / Procedures Referred By Contact Refer red To Contact Diagnoses Malignant Neoplasm Of Pancreas Adenocarcinoma (HCC) Neutropenia Chemotherapy Induced (HCC) Kimberly Rios, Rsmarleen Onc Coy HIGH C.N.P., M.S. [address] [place] [address] [address] [place] [phone] Referral ID Status Reason Start Date Expiration Date Visits V isits Requested Authorized [id number] Authorized 06/03/2020 06/03/2021 99 99 Encounter Details Date Type Department Care Team Description 11/10/2020 Lab Department of Infusion Nova Vivar Malig nant [facility]oplasm [facility] Pancreas Adenocarcinoma [place] [address] [place] [address] (HCC) (Primary Dx) [address] [place] [phone] Social History Tobacco Use Types Packs/Day Years [...] 11/11/19 6:41 Venous) CDT AM CDT Nova McnealSChico LAB BLOOD ADD-ON Performing Organization Address City/State/ZIP Code Phon e Number [facility] - [address] [place] [address] [place] [address] Laboratories-[facility] 200 [address] [facility] (ABNORMAL) Comprehensive Metabolic Panel (11/10/2020 6:29 AM [...] 11/10/2020 DTL 7:18 AM CDT BUN (Blood Urea 10 6 - 21 11/10/2020 DTL Nitrogen), S mg/dL 7:18 AM CDT Creatinine 0.83 0.59 - 11/10/2020 DTL 1.04 mg/dL 7:18 AM CDT eGFR-Non 68 >=60 11/10/2020 DTL Black/ mL/min/BSA 7:18 AM CDT Somali Comment: ----ADDITIONAL INFORMATION---- Estimated [...] Address City/State/ZIP Code Phon e Number [facility] - [address] [place], [place] [address] [place] [address] Laboratories-[facility] [address] Magnesium (11/10/2020 6:29 AM CDT) P athologist Signature Magnesium, S 2.0 1.7 - 2.3 11/10/2020 DTL mg/dL 7:18 AM CDT Specimen Anatomical Collection Method Collection Time Receive d Time (Source) Location / / Volume Laterality Blood (Blood, 11/10/2020 6:29 AM 11/11/19 21 6:40 Venous) CDT AM CDT Nova ZamoraB.S. LAB BLOOD ADD-ON Performing Organization Address City/State/ZIP Code Phon e Number [facility] - [address] [place], [place] [address] [place] [address] Laboratories-[facility] [address] (ABNORMAL) Carbohydrate Antigen 19-9 (CA 19-9) (11/10/2020 6:29 AM CDT) Analysis Performed At Patho logist Time Signature Carbohydrate Ag 42 (H) <35 U/mL 11/10/2020 [facility] 19-9, S 9:55 AM CDT Comment: ----ADDITIONAL INFORMATION---- The testing method is an immunoenzymatic assay manufactured by [employer]. and performed on the Qiyou Interaction NetworkI 800. ? Values obtained with different assay met hods or kits may be different and cannot be used inte rchangeably. ? Test results cannot be interpreted as ab solute evidence for the presence or absence of malignant disease. Specimen Anatomical Collection Method Collection Time Receive d Time (Source) Location / / Volume Laterality Blood (Blood, 11/10/2020 6:29 AM 11/11/19 8:59 Venous) CDT AM CDT Nova McnealS. LAB BLOOD ADD-ON Performing Organization Address City/[facility] Phon e Number [facility] [address] [place], [place] [address] SU[facility]ENTER [facility] [address] Laboratory Medicine and Pathology [address] [...] 21 6:41 Venous) CDT AM CDT Nova ZamoraB.S. LAB BLOOD ADD-ON Performing Organization Address City/State/ZIP Code Phon e Number [facility] - [address] [place], [place] [address] [place] [address] Laboratories-[facility] [address] [...]
--- OUTSIDE RECORDS SUMMARY | 2021-11-15 12:22 | XMS_ITS | Encounter Summary ---
:1940 Author Organization [facility] Address [address] [place] [address] Care Team Providers Name Role Phone Unavailable Primary Care Provider Unavailable Reason for Visit Episode Based Medications (Routine) - Authorized Specialty Diagnoses / Procedures Referred By Contact Refer red To Contact Diagnoses Malignant Neoplasm Of Pancreas Adenocarcinoma (HCC) Neutropenia Chemotherapy Induced (HCC) Kimberly Rios, Rsmarleen Onc Coy HIGH C.N.P., M.S. [address] [place] [phone] Referral ID Status Reason Start Date Expiration Date Visits V isits Requested Authorized [id number] Authorized 06/03/2020 06/03/2021 99 99 Encounter Details Date Type Department Care Team Description 11/10/2020 Infusion Department of Oncology Nova Vivar Malig nant Neoplasm Of in [facility] MInnaB.S. Pancreas Adenocarcinoma [address] [facility] [address] [place] [address] (HCC) (Primary Dx) [place] [phone] Social History Tobacco Use Types Packs/Day Years [...] subcutaneous, PM CDT Ab domen Once, On Mon11/10/20 at 1145, For 1 [...] hours continuous infusion via CADD pump # [id number] fosaprepitant 150 mg in NaCl 0.9% New [...]
--- OUTSIDE RECORDS SUMMARY | 2021-11-15 12:22 | XMS_ITS | Encounter Summary ---
:1940 Author Organization [facility] Address [address] [place] [address] Care Team Providers Name Role Phone Unavailable Primary Care Provider Unavailable Encounter Details Date Type Department Care Team Description 11/10/2020 Orders Only Department of Oncology in [place], [place] Frank HIGH, M.S. [address] [facility] [address] [place] [address] [place], [place] [phone] (Wo rk) Social History Tobacco Use Types [...]
--- OUTSIDE RECORDS SUMMARY | 2021-11-15 12:22 | XMS_ITS | Encounter Summary ---
:1940 Author Organization [facility] Address [address] [place] [address] Care Team Providers Name Role Phone Unavailable Primary Care Provider Unavailable Reason for Visit Episode Based Medications (Routine) - Authorized Specialty Diagnoses / Procedures Referred By Contact Refer red To Contact Diagnoses Malignant Neoplasm Of Pancreas Adenocarcinoma (HCC) Neutropenia Chemotherapy Induced (HCC) Kimberly Rios, Rsmarleen Onc Coy HIGH C.N.P., M.S. [address] [place] [address] [place] [phone] Referral ID Status Reason Start Date Expiration Date Visits V isits Requested Authorized [id number] Authorized 06/03/2020 06/03/2021 99 99 Encounter Details Date Type Department Care Team Description 12/09/2020 Lab Department of Laboratory Nova Vivar Mal ignant Neoplasm Of Medicine and Pathology, M.B.B.S. Pancreas Adenocarcinoma [place], in [address] [place] [address] (HCC) (Primary Dx) [place], [place] [address] [place] [phone] [place] [phone] Social History Tobacco Use Types Packs/Day [...] 12/10/19 7:21 Venous) CDT AM CDT Nova ZamoraBChicoS. LAB BLOOD ADD-ON Performing Organization Address City/State/[facility] Code Phon e Number [facility] - [address] [place] [address] [facility] [place] [address] Laboratories-[facility] [address] (ABNORMAL) Comprehensive Metabolic Panel (12/09/2020 7:13 AM [...] 12/09/2020 DTL 7:56 AM CDT BUN (Blood Urea 12 6 - 21 12/09/2020 DTL Nitrogen), S mg/dL 7:56 AM CDT Creatinine 0.86 0.59 - 12/09/2020 DTL 1.04 mg/dL 7:56 AM CDT eGFR-Non 65 >=60 12/09/2020 DTL Black/ mL/min/BSA 7:56 AM CDT Wallisian Comment: ----ADDITIONAL INFORMATION---- Estimated GFR calculated using [...] City/State/ZIP Code Phon e Number [facility] - [address] [place], [place] [address] [facility] [place] [address] Laboratories-[facility] [address] (ABNORMAL) CBC with Differential, Blood (12/09/2020 7:13 AM CDT) [facility] gist Method Time Signature Hemoglobin 9.6 [...] 21 7:21 Venous) CDT AM CDT Nova McnealS. LAB BLOOD ADD-ON Performing Organization Address City/State/ZIP Code Phon e Number [facility] - [address] [place], [place] [address] [facility] [place] [address] Laboratories-[facility] [address] Magnesium (12/09/2020 7:13 AM CDT) athologist Signature Magnesium, S 2.2 1.7 - 2.3 12/09/2020 DTL mg/dL 8:00 AM CDT Specimen Anatomical Collection Method Collection Time Receive d Time (Source) Location / / Volume Laterality Blood (Blood, 12/09/2020 7:13 AM 12/10/19 7:21 Venous) CDT AM CDT Nova McnealSChico LAB BLOOD ADD-ON Performing Organization Address City/[facility]/ZIP Code Phon e Number [facility] - [address] [place], [place] [address] [facility] [place] [address] Laboratories-[facility] [address] Carbohydrate Antigen 19-9 (CA 19-9) (12/09/2020 7:13 AM CDT) athologist Signature Carbohydrate Ag 34 <35 U/mL 12/09/2020 [facility] 19-9, S 1:09 PM CDT Comment: ----ADDITIONAL INFORMATION---- The testing method is an immunoenzymatic assay manufactured by [employer]. and performed on the App[employer] DxI 800. ? Values obtained with different [...] 12/10/19 Venous) CDT 12:10 PM CDT Nova ZamoraB.S. LAB BLOOD ADD-ON Performing Organization Address City/State/[facility] Code Phon e Number [facility] [address] [place], [place] [address] [facility] [place] [address] Laboratory Medicine and Pathology [address] [...]
--- OUTSIDE RECORDS SUMMARY | 2021-11-15 12:22 | XMS_ITS | Encounter Summary ---
:1940 Author Organization [facility] Address [address] [place] [address] Care Team Providers Name Role Phone Unavailable Primary Care Provider Unavailable Encounter Details Date Type Department Care Team Description 11/10/2020 Clinical Communication Department of Oncology John Locke in [facility] blossom ZamoraB.. [address] [place] [address] [address] [place] [phone] [phone] Social History Tobacco Use Types Packs/Day Years [...]
--- OUTSIDE RECORDS SUMMARY | 2021-11-15 12:22 | XMS_ITS | Encounter Summary ---
:1940 Author Organization [facility] Address [address] [place] [address] Care Team Providers Name Role Phone Aviva Laws APRN, C.N.P., M.S.N. Primary Care Provider [phone] [phone] Encounter Details Date Type Department Care Team Description 12/09/2020 Clinical Communication Department of [facility], Internal Medicine in [place], [place] [address] [place] [address] Social History Tobacco Use Types [...] 10:13 AM CDT I called to the [facility] chemotherapy center and spoke with Nena. Disconnect appt scheduled, along with a visit to see a provider in primary care here for the morning of 12/11. (Needed prior to any injections or infusions outside of the disconnect per nurse team) See other communication from [place] provider in regards to fax order that is sent today to Aviva Laws CNP to help establish an active order for the Neulasta. Telephone Encounter - Evelyn Walker - 12/09/2020 11:39 AM CDT Reason for Communication: Nena from Chemo in [place] called to schedule an appt for Azeb. She states that she needs her chemo pump disconnected and a Neulasta shot in [place] in infusion. Current Can Nursing/Provider leave a [...] on filedocumented in this encounter Care Teams Shipboard Intelligence Analyst Relationship Specialty Start Date End Date Aviva Laws APRN, C.N.P., PCP - General Family Medicine 12/11/20 09/23/21 M.S.N. [address] [place] [address] documented as of this encounter
--- OUTSIDE RECORDS SUMMARY | 2021-11-15 12:22 | XMS_ITS | Encounter Summary ---
:1940 Author Organization [facility] Address [address] [place] [address] Care Team Providers Name Role Phone Unavailable Primary Care Provider Unavailable Encounter Details Date Type Department Care Team Description 11/23/2020 Orders Only Department of Oncology in [place], [place] Frank HIGH, M.S. [address] [facility] [address] [place] [address] [place], [place] [phone] (Wo rk) Social History Tobacco Use Types [...]
--- OUTSIDE RECORDS SUMMARY | 2021-11-15 12:22 | XMS_ITS | Encounter Summary ---
:1940 Author Organization [facility] Address [address] [place] [address] Care Team Providers Name Role Phone Unavailable Primary Care Provider Unavailable Reason for Referral Outpatient (Routine) - Closed Specialty Diagnoses / Procedures Referred By Contact Refer red To Contact Oncology Kimberly Rios APRN, C.N[facility] [address] [place] [phone] Referral ID Status Reason Start Date Expiration Date Visits Requ ested Visits Authorized [id number] Closed 11/24/2020 11/24/2021 1 1 Encounter Details Date Type Department Care Team Description 11/24/2020 Orders Only Department of Kimberly Rios eoplasm Of Oncology in [place] C.N.PChico, Pancreas Ad enocarcinoma [facility] (HCC) (Primary Dx) [address] [place] [address] [address] [place] [phone] [phone] Social History Tobacco Use Types Packs/Day Years [...]
--- OUTSIDE RECORDS SUMMARY | 2021-11-15 12:22 | XMS_ITS | Encounter Summary ---
:1940 Author Organization [facility] Address [address] [place] [address] Care Team Providers Name Role Phone Unavailable Primary Care Provider Unavailable Reason for Referral Outpatient (Routine) - Closed Specialty Diagnoses / Procedures Referred By Contact Refer red To Contact Diagnoses Malignant Neoplasm Of Pancreas Adenocarcinoma (HCC) Nova Vivar M.B.B.S. [facility] Procedures ONC Pump Disconnect [address] [place] [phone] Referral ID Status Reason Start Date Expiration Date Visits Requ ested Visits Authorized [id number] Closed 10/28/2020 10/28/2021 1 1 Reason for Visit Episode Based Medications (Routine) - Authorized Specialty Diagnoses / Procedures Referred By Contact Refer red To Contact Diagnoses Malignant Neoplasm Of Pancreas Adenocarcinoma (HCC) Neutropenia Chemotherapy Induced (HCC) Kimberly Rios, Rst Onc Coy HIGH C.N.P., M.S. [address] [place] [phone] Referral ID Status Reason Start Date Expiration Date Visits V isits Requested Authorized [id number] Authorized 06/03/2020 06/03/2021 99 99 Encounter Details Date Type Department Care Team Description 10/28/2020 Infusion Department of Oncology Nova Vivar Malig nant Neoplasm Of in [facility] MChicoB.B.S. Pancreas Adenocarcinoma [address] (HCC) (Primary Dx) [place] [phone] Social History Tobacco Use Types Packs/Day Years [...] 46 hours continuous infusion via CADD pump #[id number] fosaprepitant 150 mg in NaCl 0.9% New [...]
--- OUTSIDE RECORDS SUMMARY | 2021-11-15 12:22 | XMS_ITS | Encounter Summary ---
:1940 Author Organization [facility] Address [address] [place] [address] Care Team Providers Name Role Phone Unavailable Primary Care Provider Unavailable Reason for Visit Outpatient (Routine) - Closed Specialty Diagnoses / Procedures Referred By Contact Refer red To Contact Oncology Kimberly Rios APRN, C.N.PChico, [facility] [address] [place] [phone] Referral ID Status Reason Start Date Expiration Date Visits Requ ested Visits Authorized [id number] Closed 11/24/2020 11/24/2021 1 1 Encounter Details Date Type Department Care Team Description 11/24/2020 Office Visit Department of Kimberly Rios eoplasm Of Oncology in [place] C.N.P., Pancreas Ad enocarcinoma [facility] (HCC) (Primary Dx) [address] [place] [address] [address] [place] [phone] Social History Tobacco Use Types Packs/Day Years [...] provider on file. LOCAL ONCOLOGIST No care team leader surgery to display PRIMARY [place] ONCOLOGIST Nova Vivar M.B.B.S. Kimberly Rios APRN, [...] periaortic, and mesenteric lymph nodes was reported ([facility] review). 3.) 05/25/2020 CA 19-9 178 [...] and the Common Hereditary Cancers panel from [employer] genetics lab. 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 The MUTYH gene is associated with an [...] calcium level ) 180 capsule 3 ??? fsmdqsi-H7-zmgw-copper-marlo (Citracal-D3 Maximum Plus) 325 mg-12.5 mcg - [...] to port access). 30 g 0 ??? rsqaov-ttvslzpx-genlnuj (CREON) 24,000-76,000-120,[address] capsule Take [...] 10 mL intra-catheter PRN Hartgers, Kimberly L, MARKETING COMMUNICATIONS ASSISTANT, C.N.P., M.S. 10 mL at 11/24/20 1127 [...] if they could be treated in [facility]. They are asking for referral to that facility. She has a friend who works at the [facility] and states that we can contact them at [phone]. We will see her back in our [...]
--- OUTSIDE RECORDS SUMMARY | 2021-11-15 12:22 | XMS_ITS | Encounter Summary ---
:1940 Author Organization [facility] Address [address] [place] [address] Care Team Providers Name Role Phone Unavailable Primary Care Provider Unavailable Reason for Visit Reason Comments Genetic Testing Results Encounter Details Date Type Department Care Team Description 11/12/2020 Documentation Department of Medical Ricky, Mary ic Testing Genetics in [place] M.S., [facility] [address] [facility] [address] [place] [phone] Social History Tobacco Use Types Packs/Day Years [...] panel and the Pancreatic Cancer panel through [employer]. I spoke with her over the telephone regarding her genetic testing results and the results were also shared over the patient online portal. IMPRESSION/REPORT/PLAN RESULTS I spoke with Ms. العراقي regarding her genetic testing results. Genetic testing included analysis of 49genes related to hereditary cancer. 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 The MUTYH gene associated with an autosomal [...] interested in undergoing genetic testing can visit [email or web address] to find a genetic counselor in their area. We would also be happyto see any family members at [facility]. Our appointment line is . PERSONAL [...] test and digital rectal examinations (DREs). The [place] [employer] currently recommends that men at [...] family members may consider meeting with a spectrograph operator and discussing the benefits/limitations of undergoing screening [...] recommendations, such as those made by the [place] [employer], do remain appropriate. PLAN We [...]
--- OUTSIDE RECORDS SUMMARY | 2021-11-15 12:22 | XMS_ITS | Encounter Summary ---
:1940 Author Organization [facility] Address [address] [place] [address] Care Team Providers Name Role Phone Unavailable Primary Care Provider Unavailable Reason for Visit Episode Based Medications (Routine) - Authorized Specialty Diagnoses / Procedures Referred By Contact Refer red To Contact Diagnoses Malignant Neoplasm Of Pancreas Adenocarcinoma (HCC) Neutropenia Chemotherapy Induced (HCC) Kimberly Rios, Rsmarleen Onc Coy HIGH C.N.P., M.S. [address] [place] [phone] Referral ID Status Reason Start Date Expiration Date Visits V isits Requested Authorized [id number] Authorized 06/03/2020 06/03/2021 99 99 Encounter Details Date Type Department Care Team Description 12/09/2020 Infusion Department of Oncology Nova Vivar Malig nant Neoplasm Of in [facility] MInnaB.S. Pancreas Adenocarcinoma [address] [facility] [address] [place] [address] (HCC) (Primary Dx) [place] [phone] Social History Tobacco Use Types Packs/Day Years [...] mL/hr, Administer over 15 Minutes, Once, On 9/15/21 at 1030, For 1 dose, Refrigerate fluorouraciL [...] 46 hours continuous infusion via CADD pump #[id number] fosaprepitant 150 mg in NaCl 0.9% New [...]
--- OUTSIDE RECORDS SUMMARY | 2021-11-15 12:22 | XMS_ITS | Encounter Summary ---
:1940 Author Organization [facility] Address [address] [place] [address] Care Team Providers Name Role Phone Unavailable Primary Care Provider Unavailable Encounter Details Date Type Department Care Team Description 11/10/2020 Orders Only [facility] PCP [facility] Sa jeana Cantu M.D. [address] [place], [place] [phone] (Wo rk) Social History [...]
--- OUTSIDE RECORDS SUMMARY | 2021-11-15 12:22 | XMS_ITS | Encounter Summary ---
:1940 Author Organization [facility] Address [address] [place] [address] Care Team Providers Name Role Phone Unavailable Primary Care Provider Unavailable Reason for Visit Episode Based Medications (Routine) - Authorized Specialty Diagnoses / Procedures Referred By Contact Refer red To Contact Diagnoses Malignant Neoplasm Of Pancreas Adenocarcinoma (HCC) Neutropenia Chemotherapy Induced (HCC) Kimberly Rios, Rst Onc Coy HIGH C.N.P., M.S. [address] [place] [address] [place] [phone] Referral ID Status Reason Start Date Expiration Date Visits V isits Requested Authorized [id number] Authorized 06/03/2020 06/03/2021 99 99 Encounter Details Date Type Department Care Team Description 11/10/2020 Nurse Only Department of Oncology in Mo Vivar M.B.B.S. [address] [place] [phone] [place], [place] Keshawn Morales RChicoN. [address] [place] [phone] [place] [phone] Social History Tobacco Use Types Packs/Day [...] periaortic, and mesenteric lymph nodes was reported ([facility] review). 3.) 05/25/2020 CA 19-9 178 [...] or neuropathy. She wouldlike a referral to [facility] to start receiving chemotherapy closer to home. Would like to start after her next imaging end of November. Labs reviewed by physician interventional cardiologist list reviewed & updated by RN Plan I have updated one of our care team providers, Kimberly Rios NP, regarding Ms. 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 There are no findings that are unexpected at this point in treatment and the patient is managing symptoms adequately without significant acute toxicity. She will continue with FOLFIRINOX treatment as planned. We will refer her to [facility] for chemotherapy. Will have her take half dose of dexamethasone, or 4 mg, days 2, 3, and 4. Kimberly did assess the new skin alterations, and recommended follow up with Surgical Technician. The following recommendations were discussed with the [...]
--- OUTSIDE RECORDS SUMMARY | 2021-11-15 12:22 | XMS_ITS | Encounter Summary ---
:1940 Author Organization [facility] Address [address] [place] [address] Care Team Providers Name Role Phone Unavailable Primary Care Provider Unavailable Reason for Referral Outpatient (Routine) - Closed Specialty Diagnoses / Procedures Referred By Contact Refer red To Contact Diagnoses Malignant Neoplasm Of Pancreas Adenocarcinoma (HCC) Kimberly Rios APRN, [facility] Procedures ONC Pump Disconnect C.N.P., M.S. [address] [place] [phone] Referral ID Status Reason Start Date Expiration Date Visits Requ ested Visits Authorized [id number] Closed 11/24/2020 11/24/2021 1 1 Reason for Visit Episode Based Medications (Routine) - Authorized Specialty Diagnoses / Procedures Referred By Contact Refer red To Contact Diagnoses Malignant Neoplasm Of Pancreas Adenocarcinoma (HCC) Neutropenia Chemotherapy Induced (HCC) Kimberly Rios, Rst Onc Trace Cespedes APRNN.P., M.S. 200 [facility] 200 [place] [phone] Referral ID Status Reason Start Date Expiration Date Visits V isits Requested Authorized [id number] Authorized 06/03/2020 06/03/2021 99 99 Encounter Details Date Type Department Care Team Description 11/24/2020 Infusion Department of Oncology Nova Vivar Malig nant Neoplasm Of in [facility] [place] Pancreas Adenocarcinoma [address] (HCC) (Primary Dx) [place] [phone] Social History Tobacco Use Types Packs/Day Years [...] hours continuous infusion via CADD pump # [id number] fosaprepitant 150 mg in NaCl 0.9% New [...]
--- OUTSIDE RECORDS SUMMARY | 2021-11-15 12:22 | XMS_ITS | Encounter Summary ---
:1940 Author Organization [facility] Address [address] [place] [address] Care Team Providers Name Role Phone Unavailable Primary Care Provider Unavailable Reason for Referral Outpatient (Routine) Specialty Diagnoses / Procedures Referred By Contact Refer aurora To Contact Oncology Kimberly Rios APRN, C.N.PChico, [facility].S. [address] [place] [phone] Referral ID Status Reason Start Date Expiration Date Visits Requ ested Visits Authorized utpatient (Routine) Specialty Diagnoses / Procedures Referred By Contact Refer aurora To Contact Oncology Kimberly Rios APRN C.N.P., [facility].S. 200 [place] [phone] Referral ID Status Reason Start Date Expiration Date Visits Requ ested Visits Authorized RI/CAT/PET Scan (Routine) - Closed Specialty Diagnoses / Procedures Referred By Contact Refer aurora To Contact Radiology Diagnoses Malignant Neoplasm Of Pancreas Adenocarcinoma (HCC) Kimberly Rios APRN, [facility] Procedures CT Abdomen Pelvis with IV Contrast C.N.P., M.S. [address] [place] [phone] Referral ID Status Reason Start Date Expiration Date Visits Requ ested Visits Authorized [id number] Closed 12/09/2020 12/09/2021 1 1 Reason for Visit Episode Based Medications (Routine) - Authorized Specialty Diagnoses / Procedures Referred By Contact Refer red To Contact Diagnoses Malignant Neoplasm Of Pancreas Adenocarcinoma (HCC) Neutropenia Chemotherapy Induced (HCC) Kimberly Rios, Rst Onc Coy HIGH C.N.P., M.S. [address] [facility] [address] [place] [phone] Referral ID Status Reason Start Date Expiration Date Visits V isits Requested Authorized [id number] Authorized 06/03/2020 06/03/2021 99 99 Encounter Details Date Type Department Care Team Description 12/09/2020 Office Visit Department of Kimberly Rios eoplasm Of Pancreas Adenocarcinoma (HCC) (Primary Dx); Oncology in [place] C.NJasson, Neutropenia Chemotherapy Induced (HCC) [facility].S. [address] [facility] [address] [place] [phone] Social History Tobacco Use Types Packs/Day Years [...] on file. 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 Kimberly Rios APRN, [...] periaortic, and mesenteric lymph nodes was reported ([facility] review). 3.) 05/25/2020 CA 19-9 178 [...] and the Common Hereditary Cancers panel from [employer] genetics lab. 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 06/08/2020 - [...] calcium level ) 180 capsule 3 ??? idbhmym-H9-ohao-copper-marlo (Citracal-D3 Maximum Plus) 325 mg-12.5 mcg - [...] to port access). 30 g 0 ??? utpkrg-xbadzsgu-hxlsnnv (CREON) 24,000-76,000-120,[address] capsule Take [...] with Neulasta therapy. She generally goes into [place] to have the pump disconnected and at [...] like to transition to their care to [facility] in [place]. I will work on trying to get that arranged for the 1st week in January. They are quite concerned about traveling in the winter to [place]. She stated full understanding and agreement with [...] Name Type Priority Associated Diagnoses Order S [facility] Oncology office Outpatient Referral Routine [...] Number [facility] - [address] [place] [phone] [facility] [place] [address] Laboratories-[facility] 200 [facility] (ABNORMAL) Comprehensive Metabolic Panel (01/18/2021 8:31 AM [...] 01/18/2021 DTL Black/ mL/min/BSA 10:42 AM CDT Togolese Comment: ----ADDITIONAL INFORMATION---- Estimated GFR calculated using [...] [facility] - 200 [place], [place] [address] [facility] [place] [address] [facility] 200 [facility] (ABNORMAL) CBC with Differential, Blood (01/18/2021 8:31 AM CDT) [facility] Method Time Signature Hemoglobin 10.6 (L) 11.6 [...] M.S. LAB BLOOD ADD-ON Performing Organization Address City/[facility] Phon e Number [facility] - [address] [address] Laboratories-[address] Magnesium (01/18/2021 8:31 AM CDT) P athologist Signature Magnesium, S 2.2 1.7 - 2.3 01/18/2021 DTL mg/dL 10:42 AM CDT Specimen Anatomical Collection Method Collection Time Receive d Time (Source) Location / / Volume Laterality Blood (Blood, 01/18/2021 8:31 AM 01/19/20 9:58 Venous) CDT AM CDT Kimberly Rios APRN, C.N.P., M.S. LAB BLOOD ADD-ON Performing Organization Address City/[facility] Phon e Number [facility] - [address] (ABNORMAL) Carbohydrate Antigen 19-9 (CA 19-9) (01/18/2021 8:31 AM CDT) Analysis Performed At Patho logist Time Signature Carbohydrate Ag 74 (H) <35 U/mL 01/18/2021 SDSC 19-9, S 2:05 PM CDT Comment: ----ADDITIONAL INFORMATION---- The testing method is an immunoenzymatic assay manufactured by [employer] and performed on the [employer] DxI 800. ? Values obtained with different [...] M.S. LAB BLOOD ADD-ON Performing Organization Address City/[facility]/ZIP Code Phon e Number [facility] [address] [place], [place] [address] [facility] [place] [address] Laboratory Medicine and Pathology [address] [...] M.S. LAB BLOOD ADD-ON Performing Organization Address [facility] Phon e Number [facility] - 200 [place], [place] [address] [facility] [place] [address] [facility] [address] [facility] (ABNORMAL) Comprehensive Metabolic Panel (01/04/2021 9:53 AM [...] 01/04/2021 DTL Black/ mL/min/BSA 10:47 AM CDT Togolese Comment: ----ADDITIONAL INFORMATION---- Estimated GFR calculated using [...] [facility] - [address] [place], [place] [address] [facility] [place] [address] [facility] [address] (ABNORMAL) CBC with Differential, Blood (01/04/2021 9:53 AM CDT) [facility] gist Method Time Signature Hemoglobin 9.3 [...] Venous) CDT 10:09 AM CDT Kimberly Rios APRN C.N.P., M.S. LAB BLOOD ADD-ON Performing Organization Address City/State/ZIP Code Phon e Number [facility] - [address] [place], [place] [address] [facility] [place] [address] [facility] [address] Magnesium (01/04/2021 9:53 AM CDT) athologist Signature Magnesium, S 2.2 1.7 - 2.3 01/04/2021 DTL mg/dL 10:45 AM CDT Specimen Anatomical Collection Method Collection Time Receive d Time (Source) Location / / Volume Laterality Blood (Blood, 01/04/2021 9:53 AM 01/05/20 Venous) CDT 10:26 AM CDT Kimberly Rios APRN, C.N.P., M.S. LAB BLOOD ADD-ON Performing Organization Address City/[facility] Phon e Number [facility] - [address] [place], [place] [address] [facility] [place] [address] [facility] [address] [facility] Carbohydrate Antigen 19-9 (CA 19-9) (01/04/2021 9:53 AM CDT) athologist Signature Carbohydrate Ag 29 <35 U/mL 01/04/2021 [facility] 19-9, S 3:57 PM CDT Comment: ----ADDITIONAL INFORMATION---- The testing method is an immunoenzymatic assay manufactured by [employer] and performed on the [employer] DxI 800. ? Values obtained with different [...] M.S. LAB BLOOD ADD-ON Performing Organization Address City/[facility]/ZIP [facility] Phon e Number [facility] [address] [place], [place] [address] SUPPORT CENTER [facility] [place] [address] Laboratory Medicine and Pathology [address] [...] in the abdomen or pelvis. Kimberly Rios APRN C.N.P., M.S. IMG CT PROCEDURES documented in this encounter Visit Diagnoses Diagnosis Malignant Neoplasm Of Pancreas Adenocarc inoma (HCC) - Primary Neutropenia Chemotherapy Induced (HCC) Malignant Neoplasm Of Pancreas Adenocarc inoma (HCC) documented in this encounter
--- OUTSIDE RECORDS SUMMARY | 2021-11-15 12:22 | XMS_ITS | Encounter Summary ---
:1940 Author Organization [facility] Address [address] [place] [address] Care Team Providers Name Role Phone Unavailable Primary Care Provider Unavailable Reason for Visit Episode Based Medications (Routine) - Authorized Specialty Diagnoses / Procedures Referred By Contact Refer red To Contact Diagnoses Malignant Neoplasm Of Pancreas Adenocarcinoma (HCC) Neutropenia Chemotherapy Induced (HCC) Kimberly Rios, Rst Onc Coy HIGH C.N.P., M.S. [address] [place] [address] [place] [address] [phone] Referral ID Status Reason Start Date Expiration Date Visits V isits Requested Authorized [id number] Authorized 06/03/2020 06/03/2021 99 99 Encounter Details Date Type Department Care Team Description 11/24/2020 Lab Department of Laboratory Nova Vivar Mal ignant Neoplasm Of Medicine and Pathology, M.B.B.S. Pancreas Adenocarcinoma [place], [place] [address] [place] [address] (HCC) (Primary Dx) [place], [place] [address] [place] [phone] [place] [phone] Social History Tobacco Use Types Packs/Day [...] 11/25/19 9:03 Venous) CDT AM CDT Nova McnealS. LAB BLOOD ADD-ON Performing Organization Address City/State/ZIP Code Phon e Number [facility] - [address] [place], [place] [address] [facility] [place] [address] Laboratories-[facility] [address] (ABNORMAL) Comprehensive Metabolic [...] 11/24/2020 DTL 9:22 AM CDT BUN (Blood Urea 15 6 - 21 11/24/2020 DTL Nitrogen), S mg/dL 9:22 AM CDT Creatinine 0.84 0.59 - 11/24/2020 DTL 1.04 mg/dL 9:22 AM CDT eGFR-Non 67 >=60 11/24/2020 DTL Black/ mL/min/BSA 9:22 AM CDT Kuwaiti Comment: ----ADDITIONAL INFORMATION---- Estimated GFR calculated using [...] City/State/ZIP Code Phon e Number [facility] - [address] [place] [address] [facility] [place] [address] Laboratories-[facility] [address] [facility] (ABNORMAL) CBC with Differential, Blood (11/24/2020 8:32 AM CDT) [facility] Method Time Signature Hemoglobin 9.7 (L) 11.6 [...] Blood (Blood, 11/24/2020 8:32 AM 11/25/19 21 8:50 Venous) CDT AM CDT Nova ZamoraB.S. LAB BLOOD ADD-ON Performing Organization Address City/State/ZIP Code Phon e Number [facility] - [address] [place], [place] [address] [facility] [place] [address] Laboratories-[facility] [address] [facility] Magnesium (11/24/2020 8:32 AM CDT) P athologist Signature Magnesium, S 2.1 1.7 - 2.3 11/24/2020 DTL mg/dL 9:22 AM CDT Specimen Anatomical Collection Method Collection Time Receive d Time (Source) Location / / Volume Laterality Blood (Blood, 11/24/2020 8:32 AM 11/25/19 8:41 Venous) CDT AM CDT Nova McnealSChico LAB BLOOD ADD-ON Performing Organization Address City/State/ZIP Code Phon e Number [facility] - [address] [place], [place] [address] [facility] [place] [address] Laboratories-[facility] [address] documented in [...]
--- OUTSIDE RECORDS SUMMARY | 2021-11-15 12:23 | XMS_ITS | Encounter Summary ---
:1940 Author Organization [facility] Address [address] [place] [address] Care Team Providers Name Role Phone Unavailable Primary Care Provider Unavailable Reason for Visit Episode Based Medications (Routine) - Authorized Specialty Diagnoses / Procedures Referred By Contact Refer red To Contact Diagnoses Malignant Neoplasm Of Pancreas Adenocarcinoma (HCC) Neutropenia Chemotherapy Induced (HCC) Kimberly Rios Rsmarleen Onc Coy HIGH C.N.PChico, M.S. [address] [facility] [address] [place] [address] [phone] Referral ID Status Reason Start Date Expiration Date Visits V isits Requested Authorized [id number] Authorized 06/03/2020 06/03/2021 99 99 Encounter Details Date Type Department Care Team Description 10/13/2020 Infusion Department of Oncology Kimberly Rios Ma lignant Neoplasm Of in [place], [place], LENNOX C.N.PChico, Pancreas A denocarcinoma [facility] (HCC) (Primary Dx) [address] [place] [address] [place] [phone] Social History Tobacco Use Types Packs/Day Years [...] Upper 0.25 mg, subcutaneous, PM CDT Ab solares Once, On Mon10/13/20 at 1330, For 1 dose, Give prior to Irinotecan. Give subcutaneously if unable to give IV. Patient prefers SQ. dexamethasone in NaCl 0.9% IVPB 12 New 10/13/2020 11:22 AM CDT 12 mg 200 [...] hours continuous infusion via CADD pump # [id number] fosaprepitant 150 mg in NaCl 0.9% New 10/13/2020 11:42 AM CDT 150 mg 510 mL/hr IVPB (EMEND) 150 mg, intravenous, at 510 mL/hr, Administer over 30 Minutes, Once, On Mon10/13/20 at 1100, For 1 dose, Incompatible with solutions containing divalent cations (calcium, magnesium) including lactated Ringer's solution. irinotecan 220 mg in D5W 559 mL 10/13/2020 2:21 PM CDT 220 mg 373 mL/hr IVPB (CAMPTOSAR) 220 mg (rounded from 218.88 mg = 144 mg/m2 ? 1.52 m2 Order-specific BSA), intravenous, at 373 mL/hr, Administer over 90 Minutes, Once, On Mon10/13/20 at 1400, For 1 dose, May be given via y-site with leucovorin. Protect from light. leucovorin 650 mg in D5W 307.5 mL New 10/13/2020 2:22 PM C DT 650 mg [...] Mon10/13/20 at 1100, For 1 dose New Bag 10/13/2020 11:02 AM CDT 1,000 mL 1000 mL/hr ondansetron in NaCl 0.9% IVPB 16 mg New Bag 10/13/2020 11:02 A M CDT 16 mg [...]
--- OUTSIDE RECORDS SUMMARY | 2021-11-15 12:23 | XMS_ITS | Encounter Summary ---
:1940 Author Organization [facility] Address [address] [place] [address] Care Team Providers Name Role Phone Unavailable Primary Care Provider Unavailable Reason for Visit Reason Comments [facility] - 10/19/2020 Encounter Details Date Type Department Care Team Description 10/22/2020 Clinical Communication Division of Konrad Cid ( Labs - Endocrinology in [place]y Phillips 10/19/2020) [place], [place] [address] [facility] [address] [place] [phone] Social History Tobacco Use Types Packs/Day Years [...] Outside medical records received by fax from [facility] in [place], [place]. The patient's serum calcium was normal at 8.6 mg/dL (normal, 8.5 to 10.5) on October 19, 2020. In light of this finding, no additional recommendations for now. Konrad Cid M.D. CT CT Job ID: [id number] documented in this encounter Miscellaneous Notes Telephone Encounter - Carol Sullivan - 10/26/2020 8:08 AM CDT This information sent to patient via portal message. Telephone Encounter - Carol Sullivan - 10/22/2020 8:44 AM CDT We [facility] [place], [place]. You last saw the patient on 07/27/2020. The records are viewable in document viewer. Thank you, Carol Blake, Inspecting Supervisor [phone] documented in this encounter Plan of Treatment Not on filedocumented as of this encounter Visit Diagnoses Not on filedocumented in this encounter
--- OUTSIDE RECORDS SUMMARY | 2021-11-15 12:23 | XMS_ITS | Encounter Summary ---
:1940 Author Organization [facility] Address [address] [place] [address] Care Team Providers Name Role Phone Unavailable Primary Care Provider Unavailable Reason for Visit Episode Based Medications (Routine) - Authorized Specialty Diagnoses / Procedures Referred By Contact Refer red To Contact Diagnoses Malignant Neoplasm Of Pancreas Adenocarcinoma (HCC) Neutropenia Chemotherapy Induced (HCC) Kimberly Rios, Rsmarleen Onc Coy HIGH C.N.P., M.S. [address] [place] [address] [place] [phone] Referral ID Status Reason Start Date Expiration Date Visits V isits Requested Authorized [id number] Authorized 06/03/2020 06/03/2021 99 99 Encounter Details Date Type Department Care Team Description 09/29/2020 Lab Department of Laboratory Nova Vivar Mal ignant Neoplasm Of Medicine and Pathology, M.B.B.S. Pancreas Adenocarcinoma [place], [place] [address] [place] [address] (HCC) (Primary Dx) [place], [place] [address] [place] [phone] [place] [phone] Social History Tobacco Use Types Packs/Day [...] Results Bilirubin, Direct (09/29/2020 6:48 AM CDT) P athologist Signature Bilirubin, <0.2 0.0 - 0.3 09/29/2020 DTL Direct, S mg/dL 7:47 AM CDT Specimen Anatomical Collection Method Collection Time Receive d Time (Source) Location / / Volume Laterality Blood (Blood, 09/29/2020 6:48 AM 09/30/19 21 7:19 Venous) CDT AM CDT Nova Mc[facility]al[facility] LAB BLOOD ADD-ON Performing Organization Address City/State/ZIP Code Phon e Number [facility] - [address] [place], [place] [address] [facility] [place] [address] [facility] [address] [facility] (ABNORMAL) Comprehensive Metabolic Panel (09/29/2020 6:48 AM [...] Nitrogen), S mg/dL 7:41 AM CDT Creatinine 0.89 0.59 - 09/29/2020 DTL 1.04 mg/dL 7:41 AM CDT eGFR-Non 62 >=60 09/29/2020 DTL Black/ mL/min/BSA 7:41 AM CDT Kazakh Comment: ----ADDITIONAL INFORMATION---- Estimated GFR calculated using [...] 09/30/19 7:14 Venous) CDT AM CDT Nova ZamoraB[facility]icoS. LAB BLOOD ADD-ON Performing Organization Address City/State/ZIP Code Phon e Number [facility] - [address] [place] [address] [facility] [place] [address] [facility] 200 [facility] (ABNORMAL) CBC with Differential, Blood (09/29/2020 6:48 AM CDT) [facility] Method Time Signature Hemoglobin 9.9 (L) 11.6 [...] 21 7:01 Venous) CDT AM CDT Nova ZamoraB.S. LAB BLOOD ADD-ON Performing Organization Address City/[facility] Code Phon e Number [facility] - 200 [place], [place] [address] [facility] [place] [address] [facility] 200 [facility] Magnesium (09/29/2020 6:48 AM CDT) P athologist Signature Magnesium, S 2.2 1.7 - 2.3 09/29/2020 DTL mg/dL 7:41 AM CDT Specimen Anatomical Collection Method Collection Time Receive d Time (Source) Location / / Volume Laterality Blood (Blood, 09/29/2020 6:48 AM 09/30/19 21 7:14 Venous) CDT AM CDT Nova ZamoraB.S. LAB BLOOD ADD-ON Performing Organization Address City/State/ZIP Code Phon e Number [facility] - [address] [place], [place] [address] [facility] [place] [address] [facility] [address] documented in [...]
--- OUTSIDE RECORDS SUMMARY | 2021-11-15 12:23 | XMS_ITS | Encounter Summary ---
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 [address] [place] [phone] Referral ID Status Reason Start Date Expiration Date Visits Requ ested Visits Authorized [id number] Closed 09/14/2020 09/14/2021 1 1 Encounter Details Date Type Department Care Team Description 10/12/2020 Hospital Encounter Department of Vi Rios Neoplasm Of Pancreas Adenocarcinoma (HCC); Radiology, Cristian Phillips, RFID SYSTEMS ARCHITECT, Secondary Malignant Neoplasm Lymph Node (HCC) Building, in C.N.P., M.S. [place], 200 [place], [place] 200 [facility] [address] [place], [place] [phone] (Work) [phone] Social History Tobacco Use Types Packs/Day Years [...] Sig Dispensed Refills Start Date End Date lxzmqde-K3-flzx-copper-m Take by mouth. 0 021 angan (Citracal-D3 [...] Pancreas Adenocarcinoma 2, 3, AND 4. (HCC) bcwirf-czcphlfy-bcfugmc Take 1 capsule by 180 capsule 3 [...] record (Date 06/05/2020) and 3 Bumps on Drexel Shape Septum Tip placement verified? Yes Location: [...] workstation as ordered by the treating p rozuri and reviewed by the radiologist to increase [...] t destructive lesions. Procedure Note Misbah Escudero M.B.B.SChico, M.D. - 1 EXAM: CT ABDOMEN PELVIS [...] reported separately. Kimberly Rios APRN C.N.P., M.S. IM CT PROCEDURES documented in this encounter Visit [...] line care, Prior to discharge, Starting on 10/12/20 at 0709, For 1 dose, Implanted Vascular [...]
--- OUTSIDE RECORDS SUMMARY | 2021-11-15 12:23 | XMS_ITS | Encounter Summary ---
:1940 Author Organization [facility] Address [address] [place] [address] Care Team Providers Name Role Phone Unavailable Primary Care Provider Unavailable Reason for Visit Reason Comments Med Refill Encounter Details Date Type Department Care Team Description 10/14/2020 Refill Department of Oncology in [facility] M.B.B.S. Med Refill [place], [place] [address] [facility] [address] [place] [address] [place] [address] [phone] Social History Tobacco Use Types Packs/Day Years [...]
--- OUTSIDE RECORDS SUMMARY | 2021-11-15 12:23 | XMS_ITS | Encounter Summary ---
:1940 Author Organization [facility] Address [address] [place] [address] Care Team Providers Name Role Phone Unavailable Primary Care Provider Unavailable Reason for Visit Outpatient (Routine) - Closed Specialty Diagnoses / Procedures Referred By Contact Refer red To Contact Diagnoses Malignant Neoplasm Of Pancreas Adenocarcinoma (HCC) Kimberly Rios APRN, [facility] Procedures ONC Pump Disconnect C.N.P., M.S. 200 [place] [address] Referral ID Status Reason Start Date Expiration Date Visits Requ ested Visits Authorized [id number] Closed 09/01/2020 09/01/2021 5 5 Encounter Details Date Type Department Care Team Description 10/15/2020 Infusion Department of Infusion Kimberly Rios Ma lignant Neoplasm Of Therapy in [facility], LENNOX, C.N.P., Sigala creas Adenocarcinoma [facility] (HCC) (Primary Dx) [address] [place] [phone] Social History Tobacco Use [...] 06/19/2021 organizations such as yazidi groups, unions, [email or web address] or athletic groups, or school groups? How [...]
--- OUTSIDE RECORDS SUMMARY | 2021-11-15 12:23 | XMS_ITS | Encounter Summary ---
:[address] [facility] Address [address] [place] [address] Care Team Providers Name Role Phone Unavailable Primary Care Provider Unavailable Encounter Details Date Type Department Care Team Description 09/29/2020 Orders Only Department of Oncology in [facility] [place], [place] Frank HIGH, M.S. [address] [facility] [address] [place] [address] [place], [place] [phone] (Wo rk) Social History Tobacco Use Types [...]
--- OUTSIDE RECORDS SUMMARY | 2021-11-15 12:23 | XMS_ITS | Encounter Summary ---
:1940 Author Organization [facility] Address [address] [place] [address] Care Team Providers Name Role Phone Unavailable Primary Care Provider Unavailable Encounter Details Date Type Department Care Team Description 09/29/2020 Clinical Communication Department of [facility] Unassigned , [facility] Medicine, [facility], in [place], [place] [address] [place] [address] [facility] [phone] Social History Tobacco Use Types Packs/Day Years [...] Lakeshia Ramirez - 09/29/2020 11:17 AM CDT [place] called again, stated this patient needs to be seen on 10/01 at 12:00 exactly. There are no open chairs at this time. Please advise. Thank you Telephone Encounter - Diana Hancock - 09/29/2020 10:38 AM CDT Reason for Communication: Sima calling in from [place] oncology. Sima is needing to schedule a [...]
--- OUTSIDE RECORDS SUMMARY | 2021-11-15 12:23 | XMS_ITS | Encounter Summary ---
:1940 Author Organization [facility] Address [address] [place] [address] Care Team Providers Name Role Phone Unavailable Primary Care Provider Unavailable Reason for Visit Reason Comments Nurse Visit Encounter Details Date Type Department Care Team Description 10/01/2020 Documentation Department of Oncology in [place], Nurse Visit [place], [place] R.N., O.C.N. [address] [facility] [address] [place] [address] [place], [place] [phone] Social History Tobacco Use Types Packs/Day Years [...] set to have the pump disconnect in [place] at 12pm. Per Dr. Vivar, she will disconnect pump early and does not need to receive the remainder of the infusion. I will call [place] and inform them of the issue. Sima Alexis RN. documented in this encounter Plan of Treatment Not on filedocumented as of this encounter Visit Diagnoses Not on filedocumented in this encounter
--- OUTSIDE RECORDS SUMMARY | 2021-11-15 12:23 | XMS_ITS | Encounter Summary ---
:1940 Author Organization [facility] Address [address] [place] [address] Care Team Providers Name Role Phone Unavailable Primary Care Provider Unavailable Reason for Visit Reason Comments [facility] Encounter Details Date Type Department Care Team Description 09/22/2020 Clinical Communication Division of Konrad Cid OS M Endocrinology in M.D. [place], [place] [address] [place] [address] [address] [place] [phone] Social History Tobacco Use Types Packs/Day Years [...] for review. The patient's laboratory values from [facility] at the [facility] in [place], [place], showed her serum calcium decreased at 8.1 mg/dL (normal, 8.5 to 10.5). She will increase her Citracal to 4 tablets each day and keep her calcitriol at 2 capsules each day. In light of this finding, no additional recommendations for now. Konrad Cid M.D. CT CT Job ID: [id number] documented in this encounter Miscellaneous Notes Telephone Encounter - Carol Sullivan - 09/22/2020 12:21 PM CDT We received outside records on your patient from [facility] - [place], [place]. You last saw the patient on 07/27/20. The records are viewable in document viewer. Thank you, Carol Blake, Sports Coordinator [phone] documented in this encounter Plan of Treatment Not on filedocumented as of this encounter Visit Diagnoses Not on filedocumented in this encounter
--- OUTSIDE RECORDS SUMMARY | 2021-11-15 12:23 | XMS_ITS | Encounter Summary ---
:1940 Author Organization [facility] Address [address] [place] [address] Care Team Providers Name Role Phone Unavailable Primary Care Provider Unavailable Reason for Visit Reason Comments Medication Question Encounter Details Date Type Department Care Team Description 10/15/2020 Clinical Department of Andrew Medication Communication Oncology in [facility] [address] [facility] [address] [place] [phone] Social History Tobacco Use Types Packs/Day Years [...] Miscellaneous Notes Telephone Encounter - Mariana Morales RChicoN. - 10/15/2020 2:57 PM CDT Rx refill request sent to Dr. Vivar to sign. documented in this encounter Plan of Treatment Not on filedocumented as of this encounter Visit Diagnoses Not on filedocumented in this encounter
--- OUTSIDE RECORDS SUMMARY | 2021-11-15 12:23 | XMS_ITS | Encounter Summary ---
:1940 Author Organization [facility] Address [address] [place] [address] Care Team Providers Name Role Phone Unavailable Primary Care Provider Unavailable Reason for Visit Reason Comments [facility]: [place] Encounter Details Date Type Department Care Team Description 10/26/2020 Clinical Communication Department of [facility] Tod Johns: [place] [facility] [address] [facility] [address] [place] [phone] [phone] Social History Tobacco Use Types Packs/Day Years [...] CDT Testing has been completed in the [employer] portal, pending results being scanned into [employer] to be sentto Clinical team for review. MUTYH carrier : Mira Abel Telephone Encounter - Mehran Miranda - 10/29/2020 12:45 PM CDT Sample received by [employer] on 10/28/2020, testing in progress Telephone Encounter - Rosemary Arce - 10/27/2020 3:59 PM CDT Kit at [place] Telephone Encounter - Mehran Miranda - 10/26/2020 9:32 AM CDT Date: 10/28/2020 Lab: Tod Test: Custom Panel Sample: Whole Blood Provider: Clementina García Take kit to [place] alen RAMOS documented in this encounter Plan of Treatment Not on filedocumented as of this encounter Visit Diagnoses Not on filedocumented in this encounter
--- OUTSIDE RECORDS SUMMARY | 2021-11-15 12:23 | XMS_ITS | Encounter Summary ---
:1940 Author Organization [facility] Address [address] [place] [address] Care Team Providers Name Role Phone Unavailable Primary Care Provider Unavailable Encounter Details Date Type Department Care Team Description 10/27/2020 Orders Only Department of Oncology in [facility], [place] Frank HIGH, M.S. [address] [facility] [address] [place] [address] [place], [place] [phone] (Wo rk) Social History Tobacco Use Types [...]
--- OUTSIDE RECORDS SUMMARY | 2021-11-15 12:23 | XMS_ITS | Encounter Summary ---
:1940 Author Organization [facility] Address [address] [place] [address] Care Team Providers Name Role Phone Unavailable Primary Care Provider Unavailable Reason for Visit Reason Comments Intake Assessment Encounter Details Date Type Department Care Team Description 10/08/2020 Clinical Communication Department of Nova Vivar Inta ke Assessment Oncology in M.B.B.S. [place], [place] [address] [facility] [address] [place] [phone] Social History Tobacco Use Types Packs/Day Years [...]
--- OUTSIDE RECORDS SUMMARY | 2021-11-15 12:23 | XMS_ITS | Encounter Summary ---
:1940 Author Organization [facility] Address [address] [place] [address] Care Team Providers Name Role Phone Unavailable Primary Care Provider Unavailable Reason for Visit Outpatient (Routine) - Closed Specialty Diagnoses / Procedures Referred By Contact Refer red To Contact Clinical Genomics Diagnoses Malignant Neoplasm Of Pancreas Adenocarcinoma (HCC) Nova Vivar [facility].B[facility] [address] [place] [address] Referral ID Status Reason Start Date Expiration Date Visits Requ ested Visits Authorized [id number] Closed 10/12/2020 10/12/2021 1 1 Encounter Details Date Type Department Care Team Description 10/23/2020 Comprehensive Visit Department of Ketan García Neoplasm Of Medical Genetics in [place], Pancreas [facility], [facility]GC Adenocarcinoma (HCC) [place] [address] [facility] [address] [place] [phone] Social History Tobacco Use Types Packs/Day Years [...] for viewing under the Media tab of [employer]. Our risk assessment is based upon medical [...] age 77 The patient???s maternal ancestry is [place]i; the patient???s paternal ancestry is [place]i. There isno reported consanguinity or Ashkenazi Druze ancestry. IMPRESSION/REPORT/PLAN PATIENT EDUCATION We discussed that [...] newly identified genes, such as NBN and FAITH, may also cause increased risks for prostate [...] panel and the Pancreatic Cancer panel through [facility]. The laboratory will complete insurance pre-verification for testing and will contact the patient if her estimated dwt-ni-ufcyjj cost exceeds $100. Results will becomeavailable approximately [...]
--- OUTSIDE RECORDS SUMMARY | 2021-11-15 12:23 | XMS_ITS | Encounter Summary ---
:1940 Author Organization [facility] Address [address] [place] [address] Care Team Providers Name Role Phone Unavailable Primary Care Provider Unavailable Reason for Visit Episode Based Medications (Routine) - Authorized Specialty Diagnoses / Procedures Referred By Contact Refer red To Contact Diagnoses Malignant Neoplasm Of Pancreas Adenocarcinoma (HCC) Neutropenia Chemotherapy Induced (HCC) Kimberly Rios, Rst Onc Coy HIGH C.N.P., M.S. [address] [facility] [address] [place] [phone] Referral ID Status Reason Start Date Expiration Date Visits V isits Requested Authorized [id number] Authorized 06/03/2020 06/03/2021 99 99 Encounter Details Date Type Department Care Team Description 10/12/2020 Lab Department of Infusion Kimberly Rios, Malignant Neoplasm Of Therapy in [facility] LENNOX C.N. P., M.S. Pancreas Adenocarcinoma [place] [address] [place] [address] (HCC) (Primary Dx) [address] [place] [phone] Social History Tobacco Use Types Packs/Day Years [...] DTL Nitrogen), S mg/dL 11:30 AM CDT Creatinine 0.82 0.59 - 10/12/2020 DTL 1.04 mg/dL 11:30 AM CDT eGFR-Non 69 >=60 10/12/2020 DTL Black/ mL/min/BSA 11:30 AM CDT Polish Comment: ----ADDITIONAL INFORMATION---- Estimated GFR calculated using [...] e Number [facility] - [address] [place] [phone] [facility] [place] [address] Laboratories-[facility] [address] [facility] (ABNORMAL) CBC with Differential, Blood (10/12/2020 9:10 AM CDT) [facility] gist Method Time Signature Hemoglobin 9.9 (L) [...] 9:41 Venous) CDT AM CDT Kimberly Rios APRN, C.N.P., M.S. LAB BLOOD ADD-ON Performing Organization Address [facility] Phon e Number [facility] [address] Magnesium (10/12/2020 9:10 AM CDT) athologist Signature Magnesium, S 2.2 1.7 - 2.3 10/12/2020 DTL mg/dL 11:30 AM CDT Specimen Anatomical Collection Method Collection Time Receive d Time (Source) Location / / Volume Laterality Blood (Blood, 10/12/2020 9:10 AM 10/13/19 9:24 Venous) CDT AM CDT Trace Rudolph APRNN.P., M.S. LAB BLOOD ADD-ON Performing Organization Address City/State/[facility] Phon e Number [facility] - [address] Bilirubin, Direct (10/12/2020 9:09 AM CDT) [...] [facility] - [address] [place], [place] [address] [facility] [place] [place] [address] [facility] [address] (ABNORMAL) Carbohydrate Antigen 19-9 (CA 19-9) (10/12/2020 9:09 AM CDT) Analysis Performed At Patho logist Time Signature Carbohydrate Ag 44 (H) <35 U/mL 10/12/2020 [facility] -, S 2:29 PM CDT Comment: ----ADDITIONAL INFORMATION---- The testing method is an immunoenzymatic assay manufactured by [employer] and performed on the BitPass DxI 800. ? Values obtained with different [...] M.S. LAB BLOOD ADD-ON Performing Organization Address City/[facility] Phon e Number [facility] [address] RUIZ [place], [place] [address] [facility] [place] [address] Laboratory Medicine and Pathology [address] [...]
--- OUTSIDE RECORDS SUMMARY | 2021-11-15 12:23 | XMS_ITS | Encounter Summary ---
:1940 Author Organization [facility] Address [address] [place] [address] Care Team Providers Name Role Phone Unavailable Primary Care Provider Unavailable Encounter Details Date Type Department Care Team Description 10/13/2020 Clinical Communication Department of [facility] in Shilo Cespeeds [place], [place] [address] [place] [address] [address] [place] [phone] Social History Tobacco Use Types Packs/Day Years [...]
--- OUTSIDE RECORDS SUMMARY | 2021-11-15 12:23 | XMS_ITS | Encounter Summary ---
:1940 Author Organization [facility] Address [address] [place] [address] Care Team Providers Name Role Phone Unavailable Primary Care Provider Unavailable Reason for Visit Reason Comments Med Refill Encounter Details Date Type Department Care Team Description 10/15/2020 Refill Department of Oncology in [facility] Med Refill [place], [place] [address] [facility] [address] [place] [address] [place] [address] [phone] Social History Tobacco Use Types Packs/Day Years [...] for the very basics like Not h mithcel at all 06/19/2021 food, housing, medical care, [...]
--- OUTSIDE RECORDS SUMMARY | 2021-11-15 12:23 | XMS_ITS | Encounter Summary ---
:1940 Author Organization [facility] Address [address] [place] [address] Care Team Providers Name Role Phone Unavailable Primary Care Provider Unavailable Reason for Visit Outpatient (Routine) - Closed Specialty Diagnoses / Procedures Referred By Contact Refer red To Contact Diagnoses Malignant Neoplasm Of Pancreas Adenocarcinoma (HCC) Kimberly Rios APRN, [facility] Procedures ONC Pump Disconnect C.N.P., M.S. 200 [place] [address] Referral ID Status Reason Start Date Expiration Date Visits Requ ested Visits Authorized [id number] Closed 09/29/2020 09/29/2021 1 1 Encounter Details Date Type Department Care Team Description 10/01/2020 Infusion Department of Infusion Kimberly Rios Ma lignant Neoplasm Of Therapy in [facility], LENNOX, C.N.P., Sigala creas Adenocarcinoma [facility]. (HCC) (Primary Dx) [address] [place] [phone] Social History Tobacco Use [...] 06/19/2021 organizations such as sabianist groups, unions, [employer] or athletic groups, or school groups? How [...]
--- OUTSIDE RECORDS SUMMARY | 2021-11-15 12:23 | XMS_ITS | Encounter Summary ---
:1940 Author Organization [facility] Address [address] [place] [address] Care Team Providers Name Role Phone Unavailable Primary Care Provider Unavailable Reason for Referral Outpatient (Routine) - Closed Specialty Diagnoses / Procedures Referred By Contact Refer red To Contact Diagnoses Malignant Neoplasm Of Pancreas Adenocarcinoma (HCC) Kimberly Rios APRN, [facility] Procedures ONC Pump Disconnect C.N.P., M.S. [address] [place] [phone] Referral ID Status Reason Start Date Expiration Date Visits Requ ested Visits Authorized [id number] Closed 09/29/2020 09/29/2021 1 1 Reason for Visit Episode Based Medications (Routine) - Authorized Specialty Diagnoses / Procedures Referred By Contact Refer red To Contact Diagnoses Malignant Neoplasm Of Pancreas Adenocarcinoma (HCC) Neutropenia Chemotherapy Induced (HCC) Kimberly Rios, Rst Onc Trace Cespedes APRNN.P., M.S. 200 [facility] 200 [place] [phone] Referral ID Status Reason Start Date Expiration Date Visits V isits Requested Authorized [id number] Authorized 06/03/2020 06/03/2021 99 99 Encounter Details Date Type Department Care Team Description 09/29/2020 Infusion Department of Oncology Nova Vivar Malig nant Neoplasm Of in [facility] [place]om [place] Pancreas Adenocarcinoma [address] (HCC) (Primary Dx) [place] [phone] Social History Tobacco Use Types Packs/Day Years [...] hours continuous infusion via CADD pump # [id number] fosaprepitant 150 mg in NaCl 0.9% New [...] mg in D5W 307.5 mL New Bag 09/29/2020 12:31 PM CDT 650 mg 205 mL/hr IVPB 650 mg (rounded from 640 mg = 400 mg/m2 ? 1.6 m2 Treatment Plan BSA from Measured weight), intravenous, at 205 mL/hr, Administer over 90 Minutes, Once, On Mon09/29/20 at 1200, For 1 dose, Can be given via y-site with irinotecan. NaCl 0.9 % bolus 1,000 mL 09/29/2020 9:13 AM CDT 1,000 mL 1000 mL/hr 1,000 mL, intravenous, at 1,000 mL/hr, Administer over 1 Hours, Once, On Mon09/29/20 at 0915, For 1 dose ondansetron in NaCl 0.9% IVPB 16 mg 09/29/2020 9:13 AM CDT 16 mg 232 mL/hr (ZOFRAN) 16 mg, intravenous, at 232 mL/hr, Administer over 15 Minutes, Once, On Mon09/29/20 at 0915, For 1 dose oxaliplatin 100 mg in D5W 295 mL New 09/29/2020 10:26 AM C DT 100 mg [...]
--- OUTSIDE RECORDS SUMMARY | 2021-11-15 12:23 | XMS_ITS | Encounter Summary ---
:1940 Author Organization [facility] Address [address] [place] [address] Care Team Providers Name Role Phone Unavailable Primary Care Provider Unavailable Encounter Details Date Type Department Care Team Description 10/03/2020 Documentation Department of Oncology in Mahad Kunz ma [place], [place] Kasey [address] [facility] [address] [place] [address] [place], [place] [phone] (Wo rk) Social History Tobacco Use [...]
--- OUTSIDE RECORDS SUMMARY | 2021-11-15 12:23 | XMS_ITS | Encounter Summary ---
:1940 Author Organization [facility] Address [address] [place] [address] Care Team Providers Name Role Phone Unavailable Primary Care Provider Unavailable Reason for Visit Reason Comments Treatment pump disconnect Outpatient (Routine) - Closed Specialty Diagnoses / Procedures Referred By Contact Refer red To Contact Diagnoses Malignant Neoplasm Of Pancreas Adenocarcinoma (HCC) Kimberly Rios APRN, [facility] Procedures ONC Pump Disconnect C.N.P., M.S. 200 [place] [address] Referral ID Status Reason Start Date Expiration Date Visits Requ ested Visits Authorized [id number] Closed 09/01/2020 09/01/2021 5 5 Encounter Details Date Type Department Care Team Description 09/17/2020 Infusion Department of Infusion Kimberly Rios Ma lignant Neoplasm Of Therapy in [facility] Alan, LENNOX, C.N.P., Sigala creas Adenocarcinoma [facility].S. (HCC) (Primary Dx) [address] [place] [phone] Social History Tobacco Use Types Packs/Day Years [...] Do you belong to any clubs or [employer] 06/19/2021 organizations such as anabaptist groups, unions, [employer] or athletic groups, or school groups? How [...]
--- OUTSIDE RECORDS SUMMARY | 2021-11-15 12:23 | XMS_ITS | Encounter Summary ---
:1940 Author Organization [facility] Address [address] [place] [address] Care Team Providers Name Role Phone Unavailable Primary Care Provider Unavailable Reason for Visit Reason Comments [facility] - labs 10/02/20 Encounter Details Date Type Department Care Team Description 10/06/2020 Clinical Communication Division of Konrad Cid [facility] - labs 10/02/20 Endocrinology issa Phillips M.D. [place], [place] [address] [facility] [phone] [place] [phone] [place] [address] Social History Tobacco Use Types Packs/Day Years [...] received outside records on your patient from [facility], [place], [place]. You last saw the patient on 07/27/2020. The records are viewable in document viewer. Thank you, Carol Blake, Communications Billing Analyst [phone] documented in this encounter Plan of Treatment Not on filedocumented as of this encounter Visit Diagnoses Not on filedocumented in this encounter
--- OUTSIDE RECORDS SUMMARY | 2021-11-15 12:23 | XMS_ITS | Encounter Summary ---
:1940 Author Organization [facility] Address [address] [place] [address] Care Team Providers Name Role Phone Unavailable Primary Care Provider Unavailable Encounter Details Date Type Department Care Team Description 10/07/2020 Documentation Division of Endocrinology in [place] Kasey [address] [facility] [address] [place] [address] [place], [place] [phone] (Wo rk) Social History Tobacco Use Types [...] records received by fax for review from [facility]. The patient's renal function panel was collected [...] Konrad Cid M.D. CT CT Job ID: [id number] documented in this encounter Plan of Treatment Not on filedocumented as of this encounter Visit Diagnoses Not on filedocumented in this encounter
--- OUTSIDE RECORDS SUMMARY | 2021-11-15 12:23 | XMS_ITS | Encounter Summary ---
:1940 Author Organization [facility] Address [address] [place] [address] Care Team Providers Name Role Phone Unavailable Primary Care Provider Unavailable Encounter Details Date Type Department Care Team Description 10/13/2020 Clinical Communication Department of Family Elsewhere, Pcp Medicine, [facility], in [place], [place] [address] [place] [address] [facility] [phone] Social History Tobacco Use Types Packs/Day Years [...] PM CDT Reason for Communication: Yolanda from [facility] called in to get patient scheduled for a CAD pumpdisconnect and then IVAD flush of the port and then deaccess of the port. Yolanda would like to be able to speak with a refrigeration insulator yet today before 4:00. Current Can Nursing/Provider [...]
--- OUTSIDE RECORDS SUMMARY | 2021-11-15 12:23 | XMS_ITS | Encounter Summary ---
:1940 Author Organization [facility] Address [address] [place] [address] Care Team Providers Name Role Phone Unavailable Primary Care Provider Unavailable Reason for Referral Outpatient (Routine) Specialty Diagnoses / Procedures Referred By Contact Refer red To Contact Oncology Nova Vivar M.B.B.S . [facility] [address] [place] [address] [phone] Referral ID Status Reason Start Date Expiration Date Visits Requ ested Visits Authorized utpatient (Routine) Specialty Diagnoses / Procedures Referred By Contact Refer red To Contact Oncology Nova Vivar M.B.B.S . [facility] [address] [place] [phone] Referral ID Status Reason Start Date Expiration Date Visits Requ ested Visits Authorized utpatient (Routine) - Closed Specialty Diagnoses / Procedures Referred By Contact Refer red To Contact Clinical Genomics Diagnoses Malignant Neoplasm Of Pancreas Adenocarcinoma (HCC) Nova Vivar Ro chester Johan M.B.B.S. [address] [place] [phone] Referral ID Status Reason Start Date Expiration Date Visits Requ ested Visits Authorized [id number] Closed 10/12/2020 10/12/2021 1 1 Reason for Visit Episode Based Medications (Routine) - Authorized Specialty Diagnoses / Procedures Referred By Contact Refer red To Contact Diagnoses Malignant Neoplasm Of Pancreas Adenocarcinoma (HCC) Neutropenia Chemotherapy Induced (HCC) Kimberly Rios, Rst Onc Coy HIGH C.N.P., M.S. [address] [place] [phone] Referral ID Status Reason Start Date Expiration Date Visits V isits Requested Authorized [id number] Authorized 06/03/2020 06/03/2021 99 99 Encounter Details Date Type Department Care Team Description 10/12/2020 Office Visit Department of Nova Vivar, Malignant Neop lasm Of Pancreas Adenocarcinoma (HCC) (Primary Dx); Oncology in M.B.B.S. Secondary Malignant Neoplasm Lymph Node (HCC); [place], [place] [address] [facility] Steatorrhea (HCC); [address] [place], [place] Neutropenia Chemotherapy Ind uced (HCC) [place] [phone] Social History Tobacco Use Types Packs/Day Years [...] PROVIDER Kimberly Rios APRN, C.N.P., M.S. [address] [place] [phone] LOCAL ONCOLOGIST No care steam train driver to display PRIMARY STAFFORD ONCOLOGIST Nova Vivar M.B.B.S. Kimberly Rios APRN, [...] periaortic, and mesenteric lymph nodes was reported ([facility] review). 3.) 05/25/2020 CA 19-9 178 [...] reduction. 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 If need [...] of care as described above. This include ezul-qn-[id number] and non ghck-ra-yxdw time. documented in this encounter Plan of Treatment Scheduled Referrals Name Type Priority Associated Diagnoses Order S patience Clinical Genomics Outpatient Referral Routine Malignant Neopla [...] 12/23/19 8:40 Venous) CDT AM CDT Nova Fontaine.B.S. LAB BLOOD ADD-ON Performing Organization Address City/State/ZIP Code Phon e Number [facility] - [address] [place], [place] [address] [facility] [place] [address] [facility] [address] [facility] (ABNORMAL) Comprehensive Metabolic Panel (12/22/2020 8:29 AM [...] 12/22/2020 DTL Black/ mL/min/BSA 9:39 AM CDT Afghan Comment: ----ADDITIONAL INFORMATION---- Estimated GFR calculated using [...] Blood (Blood, 12/22/2020 8:29 AM 12/23/19 21 8:40 Venous) CDT AM CDT Nova Allen LAB BLOOD ADD-ON Performing Organization Address City/State/ZIP Code Phon e Number [facility] - 200 [place], [place] [address] [facility] [place] [address] [facility] [address] [facility] (ABNORMAL) CBC with Differential, Blood (12/22/2020 8:29 AM CDT) [facility] Method Time Signature Hemoglobin 10.1 (L) [...] 12/23/19 8:45 Venous) CDT AM CDT Nova ZamoraB.S. LAB BLOOD ADD-ON Performing Organization Address City/[facility]/ZIP Code Phon e Number [facility] - [address] [place], [place] [address] [facility] [place], [place] [address] [place] [address] Magnesium (12/22/2020 8:29 AM CDT) P athologist Signature Magnesium, S 2.3 1.7 - 2.3 12/22/2020 DTL mg/dL 9:43 AM CDT Specimen Anatomical Collection Method Collection Time Receive d Time (Source) Location / / Volume Laterality Blood (Blood, 12/22/2020 8:29 AM 12/23/19 8:40 Venous) CDT AM CDT Nova ZamoraB.S. LAB BLOOD ADD-ON Performing Organization Address City/State/ZIP Code Phon e Number [facility] - [address] Bilirubin, Direct (12/09/2020 7:13 AM CDT) [...] City/State/ZIP Code Phon e Number [facility] - [address] [place], [place] [address] [place] [address] (ABNORMAL) Comprehensive Metabolic Panel (12/09/2020 7:13 [...] 12/09/2020 DTL Black/ mL/min/BSA 7:56 AM CDT Afghan Comment: ----ADDITIONAL INFORMATION---- Estimated GFR calculated using [...] City/State/ZIP Code Phon e Number [facility] - [address] [place], [place] [address] [facility] [place] [address] [facility] [address] [facility] (ABNORMAL) CBC with Differential, Blood (12/09/2020 7:13 AM CDT) [facility] gist Method Time Signature Hemoglobin 9.6 [...] ZamoraB.S. LAB BLOOD ADD-ON Performing Organization Address City/[facility] Phon e Number [facility] - [address] [place] [address] Magnesium (12/09/2020 7:13 AM CDT) P athologist Signature Magnesium, S 2.2 1.7 - 2.3 12/09/2020 DTL mg/dL 8:00 AM CDT Specimen Anatomical Collection Method Collection Time Receive d Time (Source) Location / / Volume Laterality Blood (Blood, 12/09/2020 7:13 AM 12/10/19 7:21 Venous) CDT AM CDT Nova ZamoraB.S. LAB BLOOD ADD-ON Performing Organization Address City/[facility] Phon e Number [facility] - [address] Carbohydrate Antigen 19-9 (CA 19-9) (12/09/2020 7:13 AM CDT) P athologist Signature Carbohydrate Ag 34 <35 U/mL 12/09/2020 SDSC 19-9, S 1:09 PM CDT Comment: ----ADDITIONAL INFORMATION---- The testing method is an immunoenzymatic assay manufactured by [employer] and performed on the Carter-WatersI 800. ? Values obtained with different assay [...] 21 Venous) CDT 12:10 PM CDT Nova McnealSChico LAB BLOOD ADD-ON Performing Organization Address City/[facility] Phon e Number [facility] [address] [place] [address] [facility] [place] [address] Laboratory Medicine and Pathology [address] [...] ZamoraB.S. LAB BLOOD ADD-ON Performing Organization Address City/[facility] Phon e Number [facility] - 200 [place], [place] [address] [facility] [place] [address] [facility] 200 [facility] (ABNORMAL) Comprehensive Metabolic Panel (11/24/2020 8:32 AM [...] 11/24/2020 DTL Black/ mL/min/BSA 9:22 AM CDT Afghan Comment: ----ADDITIONAL INFORMATION---- Estimated GFR calculated using [...] City/State/ZIP Code Phon e Number [facility] - 200 [place], [place] [address] [facility] [place] [address] [facility] 200 [facility] (ABNORMAL) CBC with Differential, Blood (11/24/2020 8:32 AM CDT) [facility] Method Time Signature Hemoglobin 9.7 (L) [...] ZamoraB.S. LAB BLOOD ADD-ON Performing Organization Address City/[facility] Phon e Number [facility] - [address] Magnesium (11/24/2020 8:32 AM CDT) athologist Signature Magnesium, S 2.1 1.7 - 2.3 11/24/2020 DTL mg/dL 9:22 AM CDT Specimen Anatomical Collection Method Collection Time Receive d Time (Source) Location / / Volume Laterality Blood (Blood, 11/24/2020 8:32 AM 11/25/19 8:41 Venous) CDT AM CDT Nova ZamoraB.S. LAB BLOOD ADD-ON Performing Organization Address City/[facility] Phon e Number [facility] - [address] Bilirubin, Direct (11/10/2020 6:29 AM CDT) athologist Signature Bilirubin, <0.2 0.0 - 0.3 11/10/2020 DTL Direct, S mg/dL 7:17 AM CDT Specimen Anatomical Collection Method Collection Time Receive d Time (Source) Location / / Volume Laterality Blood (Blood, 11/10/2020 6:29 AM 11/11/19 6:41 Venous) CDT AM CDT Nova ZamoraB.S. LAB BLOOD ADD-ON Performing Organization Address City/[facility]/ZIP Code Phon e Number [facility] - [address] (ABNORMAL) Comprehensive Metabolic Panel (11/10/2020 6:29 [...] 11/10/2020 DTL Black/ mL/min/BSA 7:18 AM CDT Afghan Comment: ----ADDITIONAL INFORMATION---- Estimated GFR calculated using [...] ZamoraB.S. LAB BLOOD ADD-ON Performing Organization Address City/[facility] Phon e Number [facility] - 200 [place] [address] [facility] [place] [address] Laboratories-[address] Magnesium (11/10/2020 6:29 AM CDT) P athologist Signature Magnesium, S 2.0 1.7 - 2.3 11/10/2020 DTL mg/dL 7:18 AM CDT Specimen Anatomical Collection Method Collection Time Receive d Time (Source) Location / / Volume Laterality Blood (Blood, 11/10/2020 6:29 AM 11/11/19 6:40 Venous) CDT AM CDT Nova ZamoraB.S. LAB BLOOD ADD-ON Performing Organization Address City/[facility] Phon e Number [facility] - [id number] [place] [address] (ABNORMAL) Carbohydrate Antigen 19-9 (CA 19-9) (11/10/2020 6:29 AM CDT) Analysis Performed At Patho logist Time Signature Carbohydrate Ag 42 (H) <35 U/mL 11/10/2020 SDSC 19-9, S 9:55 AM CDT Comment: ----ADDITIONAL INFORMATION---- The testing method is an immunoenzymatic assay manufactured by [employer] and performed on the IronPearl DxI 800. ? Values obtained with different [...] 11/11/19 8:59 Venous) CDT AM CDT Nova Leonidas Allen LAB BLOOD ADD-ON Performing Organization Address City/State/ZIP Code Phon e Number [facility] [address] [place], [place] [address] [facility] [place] [address] Laboratory Medicine and Pathology [address] [place] (ABNORMAL) CBC with Differential, Blood (11/10/2020 6:28 AM CDT) [facility] Method Time Signature Hemoglobin 9.7 (L) [...] ZamoraB.S. LAB BLOOD ADD-ON Performing Organization Address City/[facility] Phon e Number [facility] - 200 [place], [place] [address] [place] [address] [address] Bilirubin, Direct (10/28/2020 6:53 AM CDT) athologist Signature Bilirubin, <0.2 0.0 - 0.3 10/28/2020 DTL Direct, S mg/dL 7:42 AM CDT Specimen Anatomical Collection Method Collection Time Receive d Time (Source) Location / / Volume Laterality Blood (Blood, 10/28/2020 6:53 AM 10/29/19 7:05 Venous) CDT AM CDT Nova ZamoraB.S. LAB BLOOD ADD-ON Performing Organization Address City/[facility] Phon e Number [facility] - 200 [place], [place] [address] [place] [address] [address] (ABNORMAL) Comprehensive Metabolic Panel (10/28/2020 6:53 [...] 10/28/2020 DTL Black/ mL/min/BSA 7:41 AM CDT Afghan Comment: ----ADDITIONAL INFORMATION---- Estimated GFR calculated using [...] City/State/ZIP Code Phon e Number [facility] - [address] [place], [place] [address] [facility] [place] [address] [facility] [address] (ABNORMAL) CBC with Differential, Blood (10/28/2020 6:53 AM CDT) [facility] gist Method Time Signature Hemoglobin 9.6 [...] 10/29/19 7:06 Venous) CDT AM CDT Nova McnealSChico LAB BLOOD ADD-ON Performing Organization Address City/State/ZIP Code Phon e Number [facility] - [address] [place], [place] [address] [facility] [place] [address] [facility] [address] Magnesium (10/28/2020 6:53 AM CDT) P athologist Signature Magnesium, S 2.2 1.7 - 2.3 10/28/2020 DTL mg/dL 7:41 AM CDT Specimen Anatomical Collection Method Collection Time Receive d Time (Source) Location / / Volume Laterality Blood (Blood, 10/28/2020 6:53 AM 10/29/19 7:05 Venous) CDT AM CDT Nova ZamoraB.S. LAB BLOOD ADD-ON Performing Organization Address City/State/ZIP Code Phon e Number [facility] - [address] [place], [place] [address] [facility] [place] [address] [facility] [address] documented in this encounter Visit Diagnoses Diagnosis Malignant Neoplasm Of Pancreas Adenocarc inoma (HCC) - Primary Secondary Malignant Neoplasm Lymph Node (HCC) Steatorrhea Neutropenia Chemotherapy Induced (HCC) documented in this encounter
--- OUTSIDE RECORDS SUMMARY | 2021-11-15 12:24 | XMS_ITS | Encounter Summary ---
:1940 Author Organization [facility] Address [address] [place] [address] Care Team Providers Name Role Phone Unavailable Primary Care Provider Unavailable Reason for Visit Episode Based Medications (Routine) - Authorized Specialty Diagnoses / Procedures Referred By Contact Refer red To Contact Diagnoses Malignant Neoplasm Of Pancreas Adenocarcinoma (HCC) Neutropenia Chemotherapy Induced (HCC) Kimberly Rios, Rsmarleen Onc Coy HIGH C.N.P., M.S. [address] [place] [phone] Referral ID Status Reason Start Date Expiration Date Visits V isits Requested Authorized [id number] Authorized 06/03/2020 06/03/2021 99 99 Encounter Details Date Type Department Care Team Description 09/01/2020 Infusion Department of Oncology Nova Vivar Malig nant Neoplasm Of in [facility] MInnaB.S. Pancreas Adenocarcinoma [address] [facility] [address] [place] [address] (HCC) (Primary Dx) [place] [phone] Social History Tobacco Use Types Packs/Day Years [...] Do you belong to any clubs or Sellsy 06/19/2021 organizations such as jew groups, unions, [...] subcutaneous, PM CDT Ab solares Once, On Mon09/01/20 at 1130, For 1 [...] hours continuous infusion via CADD pump # [id number] fosaprepitant 150 mg in NaCl 0.9% New 09/01/2020 9:45 AM C DT 150 mg 510 mL/hr IVPB (EMEND) 150 mg, intravenous, at 510 mL/hr, Administer over 30 Minutes, Once, On Mon09/01/20 at 0900, For 1 dose, Incompatible with solutions containing divalent cations (calcium, magnesium) including lactated Ringer's solution. irinotecan 220 mg in D5W 559 mL New 09/01/2020 12:19 PM CD T 220 mg [...] Mon09/01/20 at 0900, For 1 dose New Bag 09/01/2020 9:06 AM CDT 1,000 mL 1000 mL/hr ondansetron in NaCl 0.9% IVPB 16 mg New Bag 09/01/2020 9:08 AM CDT 16 mg 232 mL/hr (ZOFRAN) 16 mg, intravenous, at 232 mL/hr, Administer over 15 Minutes, Once, On Mon09/01/20 at 0900, For 1 dose oxaliplatin 100 mg in D5W 295 mL New 09/01/2020 10:15 AM C DT 100 mg [...]
--- OUTSIDE RECORDS SUMMARY | 2021-11-15 12:24 | XMS_ITS | Encounter Summary ---
:[address] [facility] Address [address] [place] [address] Care Team Providers Name Role Phone Unavailable Primary Care Provider Unavailable Encounter Details Date Type Department Care Team Description 08/28/2020 Documentation Division of Endocrinology in [place], [place] K[place] [address] [facility] [address] [place] [address] [place], [place] [phone] (Wo rk) Social History Tobacco Use Types [...] records received by fax for review from [email or web address]. The patient's serum calcium on August 27, [...] Konrad Cid M.D. CT CT Job ID: [id number] documented in this encounter Plan of Treatment Not on filedocumented as of this encounter Visit Diagnoses Not on filedocumented in this encounter
--- OUTSIDE RECORDS SUMMARY | 2021-11-15 12:24 | XMS_ITS | Encounter Summary ---
:1940 Author Organization [facility] Address [address] [place] [address] Care Team Providers Name Role Phone Unavailable Primary Care Provider Unavailable Reason for Visit Reason Comments OSM Encounter Details Date Type Department Care Team Description 08/14/2020 Clinical Communication Division of Konrad Cid OS M Endocrinology in M.D. [place], [place] [address] [place] [address] [address] [place] [phone] Social History Tobacco Use Types Packs/Day Years [...] received outside records on your patient from [employer] . You last saw the patient on 07/27/2020. The records are viewable in document viewer. Thank you, Carol Blake, [employer] Executive Producer [phone] documented in this encounter Plan of Treatment Not on filedocumented as of this encounter Visit Diagnoses Not on filedocumented in this encounter
--- OUTSIDE RECORDS SUMMARY | 2021-11-15 12:24 | XMS_ITS | Encounter Summary ---
:1940 Author Organization [facility] Address [address] [place] [address] Care Team Providers Name Role Phone Unavailable Primary Care Provider Unavailable Reason for Visit Outpatient (Routine) - Closed Specialty Diagnoses / Procedures Referred By Contact Refer red To Contact Diagnoses Malignant Neoplasm Of Pancreas Adenocarcinoma (HCC) Kimberly Rios APRN, [facility] Procedures ONC Pump Disconnect C.N.P., M.S. 200 [place] [address] Referral ID Status Reason Start Date Expiration Date Visits Requ ested Visits Authorized [id number] Closed 09/01/2020 09/01/2021 5 5 Encounter Details Date Type Department Care Team Description 09/03/2020 Infusion Department of Infusion Kimberly Rios Ma lignant Neoplasm Of Therapy in [facility], LENNOX, C.N.P., Sigala creas Adenocarcinoma [facility].S. (HCC) (Primary Dx) [address] [place] [phone] Social History Tobacco Use [...] 06/19/2021 organizations such as catholic groups, unions, fraAvenida or athletic groups, or school groups? How [...]
--- OUTSIDE RECORDS SUMMARY | 2021-11-15 12:24 | XMS_ITS | Encounter Summary ---
:1940 Author Organization [facility] Address [address] [place] [address] Care Team Providers Name Role Phone Unavailable Primary Care Provider Unavailable Reason for Visit Reason Comments Med Refill loperamide Encounter Details Date Type Department Care Team Description 09/10/2020 Refill Department of Oncology Kimberly Rios, Med Refill (loperamide ) in [facility] blossom HIGH C.N.P., M.S. [address] [facility] [address] [place] [address] [place], [place] [phone] (Wo rk) Social History Tobacco Use Types [...]
--- OUTSIDE RECORDS SUMMARY | 2021-11-15 12:24 | XMS_ITS | Encounter Summary ---
:1940 Author Organization [facility] Address [address] [place] [address] Care Team Providers Name Role Phone Unavailable Primary Care Provider Unavailable Encounter Details Date Type Department Care Team Description 09/05/2020 Clinical Communication Department of Mikal Gomez Oncology issa Rosado M.D. [place], [place] [address] [facility] [address] [place] [phone] Social History Tobacco Use Types Packs/Day Years [...]
--- OUTSIDE RECORDS SUMMARY | 2021-11-15 12:24 | XMS_ITS | Encounter Summary ---
:1940 Author Organization [facility] Address [address] [place] [address] Care Team Providers Name Role Phone Unavailable Primary Care Provider Unavailable Reason for Visit Episode Based Medications (Routine) - Authorized Specialty Diagnoses / Procedures Referred By Contact Refer red To Contact Diagnoses Malignant Neoplasm Of Pancreas Adenocarcinoma (HCC) Neutropenia Chemotherapy Induced (HCC) Kimberly Rios, Rsmarleen Onc Coy HIGH C.N.P., M.S. [address] [place] [address] [address] [place] [phone] Referral ID Status Reason Start Date Expiration Date Visits V isits Requested Authorized [id number] Authorized 06/03/2020 06/03/2021 99 99 Encounter Details Date Type Department Care Team Description 09/14/2020 Lab Department of Infusion Nova Vivar Malig nant [facility]oplasm [facility] Pancreas Adenocarcinoma [place] [address] [place] [address] (HCC) (Primary Dx) [address] [place] [phone] Social History Tobacco Use Types Packs/Day Years [...] Do you belong to any clubs or [employer] 06/19/2021 organizations such as uatsdin groups, unions, [...] with Differential, Blood (09/14/2020 8:34 AM CDT) [facility] gist Method Time Signature Hemoglobin 9.7 [...] ZamoraB.S. LAB BLOOD ADD-ON Performing Organization Address City/[facility] Phon e Number [facility] - 200 [place], [place] [address] [facility] [place] [address] Laboratories-[address] Bilirubin, Direct (09/14/2020 8:33 AM CDT) athologist Signature Bilirubin, <0.2 0.0 - 0.3 09/14/2020 DTL Direct, S mg/dL 10:21 AM CDT Specimen Anatomical Collection Method Collection Time Receive d Time (Source) Location / / Volume Laterality Blood (Blood, 09/14/2020 8:33 AM 09/15/19 8:55 Venous) CDT AM CDT Nova McnealS. LAB BLOOD ADD-ON Performing Organization Address [facility] Phon e Number [facility] - [address] [place] [address] [place] [address] Laboratories-[address] (ABNORMAL) Comprehensive Metabolic Panel (09/14/2020 8:33 [...] DTL Nitrogen), S mg/dL 10:22 AM CDT Creatinine 0.84 0.59 - 09/14/2020 DTL 1.04 mg/dL 10:22 AM CDT eGFR-Non 67 >=60 09/14/2020 DTL Black/ mL/min/BSA 10:22 AM CDT Libyan Comment: ----ADDITIONAL INFORMATION---- Estimated GFR calculated using [...] Address City/State/ZIP Code Phon e Number [facility] - [address] [place], [place] [address] [facility] [place] [address] Laboratories-[facility] [address] Magnesium (09/14/2020 8:33 AM CDT) P athologist Signature Magnesium, S 2.1 1.7 - 2.3 09/14/2020 DTL mg/dL 10:22 AM CDT Specimen Anatomical Collection Method Collection Time Receive d Time (Source) Location / / Volume Laterality Blood (Blood, 09/14/2020 8:33 AM 09/15/19 8:55 Venous) CDT AM CDT Nova ZamoraBChicoS. LAB BLOOD ADD-ON Performing Organization Address City/State/ZIP Code Phon e Number [facility] - [address] [place], [place] [address] [place] [address] Laboratories-[facility] [address] (ABNORMAL) Carbohydrate Antigen 19-9 (CA 19-9) (09/14/2020 8:33 AM CDT) Analysis Performed At Patho logist Time Signature Carbohydrate Ag 57 (H) <35 U/mL 09/14/2020 [facility] 19-9, S 1:47 PM CDT Comment: ----ADDITIONAL INFORMATION---- The testing method is an immunoenzymatic assay manufactured by [employer]. and performed on the emidsI 800. ? Values obtained with different assay [...] 09/15/19 Venous) CDT 12:55 PM CDT Nova McnealSChico LAB BLOOD ADD-ON Performing Organization Address City/State/ZIP Code Phon e Number [facility] [address] [place], [place] [address] [facility] [place] [address] Laboratory Medicine and Pathology [address] [...] intra-catheter, As needed, line care, Starting on 09/14/20 at 0837, When no infusion to maintain [...] intra-catheter, As needed, line care, Starting on 09/14/20 at 0837, When IVAD Accessed and in Use: Flush prior to and following infusion, between multiple consecutive infusions, and prior to blood sampling. sodium chloride 0.9 % injection 20 mL Given 09/14/2020 8:37 AM CDT 20 mL 20 mL, intra-catheter, As needed, line care, Starting on 09/14/20 at 0837, When IVAD Accessed and in Use: Flush post blood transfusion or post blood sampling. documented in this encounter
--- OUTSIDE RECORDS SUMMARY | 2021-11-15 12:24 | XMS_ITS | Encounter Summary ---
:[address] [facility] Address [address] [place] [address] Care Team Providers Name Role Phone Unavailable Primary Care Provider Unavailable Reason for Visit Reason Comments OSM Encounter Details Date Type Department Care Team Description 08/20/2020 Clinical Communication Division of Konrad Cid OS M Endocrinology in M.D. [place], [place] [address] [place] [address] [address] [place] [phone] Social History Tobacco Use Types Packs/Day Years [...] were reviewed. [facility] August 18, 2020, at 2:58 p.m. showed serum calcium increased at 11.3 mg/dL (normal, 8.5 to 10.5). In light of this finding, no additional recommendations for now. The patient has been advised to discontinue her calcium and calcitriol supplements. Konrad Cid M.D. CT CT Job ID: [id number] documented in this encounter Miscellaneous Notes Telephone Encounter - Carol Sullivan - 08/20/2020 10:57 AM CDT [facility] You last saw the patient on 07/27/2020. The records are viewable in document viewer. Thank you, Carol Blake, Synchronous Motor Assembler [id number] documented in this encounter Plan of Treatment Not on filedocumented as of this encounter Visit Diagnoses Not on filedocumented in this encounter
--- OUTSIDE RECORDS SUMMARY | 2021-11-15 12:24 | XMS_ITS | Encounter Summary ---
:1940 Author Organization [facility] Address [address] [place] [address] Care Team Providers Name Role Phone Unavailable Primary Care Provider Unavailable Reason for Visit Episode Based Medications (Routine) - Authorized Specialty Diagnoses / Procedures Referred By Contact Refer red To Contact Diagnoses Malignant Neoplasm Of Pancreas Adenocarcinoma (HCC) Neutropenia Chemotherapy Induced (HCC) Kimberly Rios, Rsmarleen Onc Coy HIGH C.N.P., M.S. [address] [facility] [address] [place] [phone] Referral ID Status Reason Start Date Expiration Date Visits V isits Requested Authorized [id number] Authorized 06/03/2020 06/03/2021 99 99 Encounter Details Date Type Department Care Team Description 08/31/2020 Lab Department of Oncology Nova Vivar Malig nant Neoplasm Of in [facility] MInnaB.S. Pancreas Adenocarcinoma 200 [address] [facility] [address] [place] [address] (HCC) (Primary Dx) [place] [address] [place], [place] [phone] Social History Tobacco Use Types Packs/Day Years [...] Do you belong to any clubs or [employer] 06/19/2021 organizations such as sikh groups, unions, [...] Results Bilirubin, Direct (08/31/2020 7:27 AM CDT) P athologist Signature Bilirubin, <0.2 0.0 - 0.3 08/31/2020 DTL Direct, S mg/dL 8:29 AM CDT Specimen Anatomical Collection Method Collection Time Receive d Time (Source) Location / / Volume Laterality Blood (Blood, 08/31/2020 7:27 AM 09/01/19 7:38 Venous) CDT AM CDT Nova Allen LAB BLOOD ADD-ON Performing Organization Address City/State/ZIP Code Phon e Number [facility] - 200 [place], [place] [address] [facility] [place] [address] Laboratories-[facility] 200 [facility] Comprehensive Metabolic Panel (08/31/2020 7:27 AM [...] DTL Nitrogen), S mg/dL 8:28 AM CDT Creatinine 0.86 0.59 - 08/31/2020 DTL 1.04 mg/dL 8:28 AM CDT eGFR-Non 65 >=60 08/31/2020 DTL Black/ mL/min/BSA 8:28 AM CDT Marshallese Comment: ----ADDITIONAL INFORMATION---- Estimated GFR calculated using [...] Organization Address City/State/ZIP Code Phon e Number [facility] - [address] [place] [address] [facility] [place] [place] [address] Laboratories-[facility] 200 [facility] (ABNORMAL) CBC with Differential, Blood (08/31/2020 7:27 AM CDT) [facility] Method Time Signature Hemoglobin 9.8 (L) [...] ZamoraB.S. LAB BLOOD ADD-ON Performing Organization Address City/[facility] Code Phon e Number [facility] - [address] [place] [address] Laboratories-[address] Magnesium (08/31/2020 7:27 AM CDT) P athologist Signature Magnesium, S 2.0 1.7 - 2.3 08/31/2020 DTL mg/dL 8:28 AM CDT Specimen Anatomical Collection Method Collection Time Receive d Time (Source) Location / / Volume Laterality Blood (Blood, 08/31/2020 7:27 AM 09/01/19 21 7:38 Venous) CDT AM CDT Nova ZamoraB.S. LAB BLOOD ADD-ON Performing Organization Address City/State/ZIP Code Phon e Number [facility] - 200 [place] [address] 05 [facility] [place] [address] Laboratories-[facility] [address] documented in [...]
--- OUTSIDE RECORDS SUMMARY | 2021-11-15 12:24 | XMS_ITS | Encounter Summary ---
:1940 Author Organization [facility] Address [address] [place] [address] Care Team Providers Name Role Phone Unavailable Primary Care Provider Unavailable Reason for Visit Reason Comments [facility] Labs 08/21/2020 Encounter Details Date Type Department Care Team Description 08/25/2020 Clinical Communication Division of Konrad Cid ( Labs Endocrinology in [place] 08/21/2020) [place], [place] [address] [facility] [phone] [place] [phone] Social History Tobacco Use Types Packs/Day Years [...] received outside records on your patient from [employer]. You last saw the patient on 07/27/2020. The records are viewable in document viewer. ?? Thank you, Carol Blake, Stave And Bolt Equalizer [id number] documented in this encounter Plan of Treatment Not on filedocumented as of this encounter Visit Diagnoses Not on filedocumented in this encounter
--- OUTSIDE RECORDS SUMMARY | 2021-11-15 12:24 | XMS_ITS | Encounter Summary ---
:1940 Author Organization [facility] Address [address] [place] [address] Care Team Providers Name Role Phone Unavailable Primary Care Provider Unavailable Reason for Visit Reason Comments Outpatient Infusion Episode Based Medications (Routine) - Closed Specialty Diagnoses / Procedures Referred By Contact Refer red To Contact Diagnoses Malignant Neoplasm Of Pancreas Adenocarcinoma (HCC) Nova Vivar M.B.B.S. Rst Onc Rog [address] [facility] [address] [place] [phone] Referral ID Status Reason Start Date Expiration Date Visits Requ ested Visits Authorized [id number] Closed 08/17/2020 08/17/2021 99 99 Encounter Details Date Type Department Care Team Description 08/17/2020 Infusion Department of Infusion Nova Vivar Malig nant Neoplasm Of Therapy in [facility] Pancreas Adenocarcinoma [place] [address] [facility] (HCC) (Primary Dx) [address] [place] [phone] Social History Tobacco Use Types Packs/Day Years [...] 06/19/2021 organizations such as spiritism groups, unions, [employer] or athletic groups, or school groups? [...] intra-catheter, As needed, line care, Starting on 08/17/20 at 1116, When no infusion to maintain [...]
--- OUTSIDE RECORDS SUMMARY | 2021-11-15 12:24 | XMS_ITS | Encounter Summary ---
:1940 Author Organization [facility] Address [address] [place] [address] Care Team Providers Name Role Phone Unavailable Primary Care Provider Unavailable Encounter Details Date Type Department Care Team Description 08/25/2020 Documentation Division of Endocrinology in [place], [place] [address] [facility] [address] [place] [address] [place], [place] [phone] (Wo rk) Social History Tobacco Use Types [...] Cid M.D. - 08/25/2020 12:22 PM CDT [place] medical records and laboratory results reviewed. The patient's laboratory values at [facility] on August 21, 2020, at 8:56 a.m. showed her fasting serum calcium normal at 8.6 mg/dL (normal, 8.5 to 10.5). In light of this finding, no additional recommendations for now. Konrad Cid M.D. CT CT Job ID: [id number] documented in this encounter Plan of Treatment Not on filedocumented as of this encounter Visit Diagnoses Not on filedocumented in this encounter
--- OUTSIDE RECORDS SUMMARY | 2021-11-15 12:24 | XMS_ITS | Encounter Summary ---
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 [address] [place] [phone] Referral ID Status Reason Start Date Expiration Date Visits Requ ested Visits Authorized [id number] Closed 09/14/2020 09/14/2021 1 1 utpatient (Routine) Specialty Diagnoses / Procedures Referred By Contact Refer red To Contact Oncology Kimberly Rios APRN, C.N.P., [facility] M.S. [address] [place] [phone] Referral ID Status Reason Start Date Expiration Date Visits Requ ested Visits Authorized Reason for Visit Episode Based Medications (Routine) - Authorized Specialty Diagnoses / Procedures Referred By Contact Refer red To Contact Diagnoses Malignant Neoplasm Of Pancreas Adenocarcinoma (HCC) Neutropenia Chemotherapy Induced (HCC) Kimberly Rios, Rst Onc Coy HIGH C.N.P., M.S. [address] [facility] [address] [place] [phone] Referral ID Status Reason Start Date Expiration Date Visits V isits Requested Authorized [id number] Authorized 06/03/2020 06/03/2021 99 99 Encounter Details Date Type Department Care Team Description 09/14/2020 Office Visit Department of Kimberly Rios Malignant N eoplasm Of Pancreas Adenocarcinoma (HCC) (Primary Dx); Oncology in L, Frank HIGH, Secondary M alignant Neoplasm Lymph Node (HCC) [place], [place] M.S. [address] [facility] [address] [place] [phone] Social History Tobacco Use Types Packs/Day Years [...] provider on file. LOCAL ONCOLOGIST No care recruiting team lead to display PRIMARY SEALY ONCOLOGIST Nova Vivar M.B.B.S. Kimberly Rios APRN, [...] periaortic, and mesenteric lymph nodes was reported ([facility] review). 3.) 05/25/2020 [place] 19-9 178 [...] by mouth daily. 180 capsule 3 ??? uilcyzp-Q3-dizq-copper-marlo (Citracal-D3 Maximum Plus) 325 mg-12.5 mcg - [...] to port access). 30 g 0 ??? ddcrxk-saicsaee-ghchomc (CREON) 24,000-76,000-120,[address] capsule Take [...] Name Type Priority Associated Diagnoses Order S [facility] Oncology office Outpatient Referral Routine Malignant [...] 10/12/2020 DTL Black/ mL/min/BSA 11:30 AM CDT Guyanese Comment: ----ADDITIONAL INFORMATION---- Estimated GFR calculated using [...] [facility] - 200 [place], [place] [address] [facility] [place] [address] Laboratories-[facility] 200 [facility] (ABNORMAL) CBC with Differential, Blood (10/12/2020 9:10 AM CDT) [facility] Method Time Signature Hemoglobin 9.9 (L) [...] [facility] - 200 [place], [place] [address] [facility] [place] [address] Laboratories-[facility] [address] [facility] Magnesium (10/12/2020 9:10 AM CDT) P athologist Signature Magnesium, S 2.2 1.7 - 2.3 10/12/2020 DTL mg/dL 11:30 AM CDT Specimen Anatomical Collection Method Collection Time Receive d Time (Source) Location / / Volume Laterality Blood (Blood, 10/12/2020 9:10 AM 10/13/19 9:24 Venous) CDT AM CDT Harleen Rudolph APRN.N.Hossein., M.S. LAB BLOOD ADD-ON Performing Organization Address City/[facility]/ZIP Code Phon e Number [facility] [address] Bilirubin, Direct (10/12/2020 9:09 AM CDT) P athologist Signature Bilirubin, <0.2 0.0 - 0.3 10/12/2020 DTL Direct, S mg/dL 11:14 AM CDT Specimen Anatomical Collection Method Collection Time Receive d Time (Source) Location / / Volume Laterality Blood (Blood, 10/12/2020 9:09 AM 10/13/19 9:24 Venous) CDT AM CDT Kimberly Rios APRN, C.N.P., M.S. LAB BLOOD ADD-ON Performing Organization Address [facility] Phon e Number [id number] [place] [address] (ABNORMAL) Carbohydrate Antigen 19-9 (CA 19-9) (10/12/2020 9:09 AM CDT) Analysis Performed At Patho logist Time Signature Carbohydrate Ag 44 (H) <35 U/mL 10/12/2020 [facility] 19-9, S 2:29 PM CDT Comment: ----ADDITIONAL INFORMATION---- The testing method is an immunoenzymatic assay manufactured by [employer] and performed on the [employer] DxI 800. ? Values obtained with different [...] M.S. LAB BLOOD ADD-ON Performing Organization Address City/[facility]/ZIP Code Phon e Number [facility] [address] [place], [place] [address] [facility] [place] [address] Laboratory Medicine and Pathology [address] Abdomen Pelvis with IV [...] disease. 4. This examination was performed in [facility] with a CT of the chest, [...]
--- OUTSIDE RECORDS SUMMARY | 2021-11-15 12:24 | XMS_ITS | Encounter Summary ---
:1940 Author Organization [facility] Address [address] [place] [address] Care Team Providers Name Role Phone Unavailable Primary Care Provider Unavailable Reason for Referral Outpatient (Routine) - Closed Specialty Diagnoses / Procedures Referred By Contact Refer red To Contact Diagnoses Malignant Neoplasm Of Pancreas Adenocarcinoma (HCC) Kimberly Rios APRN, [facility] Procedures ONC Pump Disconnect C.N.P., M.S. [address] [place] [address] Referral ID Status Reason Start Date Expiration Date Visits Requ ested Visits Authorized [id number] Closed 09/01/2020 09/01/2021 5 5 Encounter Details Date Type Department Care Team Description 09/01/2020 Orders Only [facility], Malignant Ne oplasm Of Infusion Therapy in R.N. Pancreas Adenocarcinoma [place], [place] 1025 [facility] (HCC) (Primary Dx) [address]199 [place] [address] [phone] Social History Tobacco Use Types Packs/Day Years [...]
--- OUTSIDE RECORDS SUMMARY | 2021-11-15 12:24 | XMS_ITS | Encounter Summary ---
:1940 Author Organization [facility] Address [address] [place] [address] Care Team Providers Name Role Phone Unavailable Primary Care Provider Unavailable Encounter Details Date Type Department Care Team Description 08/07/2020 Orders Only Department of Oncology in [place], [place] Frank HIGH, M.S. [address] [facility] [address] [place] [address] [place], [place] [phone] (Wo rk) Social History Tobacco Use Types [...]
--- OUTSIDE RECORDS SUMMARY | 2021-11-15 12:24 | XMS_ITS | Encounter Summary ---
:1940 Author Organization [facility] Address [address] [place] [address] Care Team Providers Name Role Phone Unavailable Primary Care Provider Unavailable Reason for Visit Reason Comments [facility] Lab 09/07/20 Encounter Details Date Type Department Care Team Description 09/10/2020 Clinical Communication Division of Konrad Cid ( Lab 09/07/20) Endocrinology in [place], [place] [address] [facility] [phone] [place] [address] Social History Tobacco Use Types Packs/Day Years [...] The patient's outside faxed medical records from [facility] showed her serum calcium to be low-normal at 8.8 mg/dL (normal, 8.5 to 10.5). In light of this finding, no additional recommendations for now. Konrad Cid M.D. CT CT Job ID: [id number] documented in this encounter Miscellaneous Notes Telephone Encounter - Carol Sullivan - 09/15/2020 10:15 AM CDT This information sent to patient via portal message. Telephone Encounter - Carol Sullivan - 09/10/2020 6:48 PM CDT We received outside records on your patient from [employer] [place], [place]. Yudith saw the patient on 07/27/2020. The records are viewable in document viewer. Thank you, Carol Blake, Dry Box Operator [phone] documented in this encounter Plan of Treatment Not on filedocumented as of this encounter Visit Diagnoses Not on filedocumented in this encounter
--- OUTSIDE RECORDS SUMMARY | 2021-11-15 12:24 | XMS_ITS | Encounter Summary ---
:1940 Author Organization [facility] Address [address] [place] [address] Care Team Providers Name Role Phone Unavailable Primary Care Provider Unavailable Reason for Visit Reason Comments Consult PHR ONC PHARMACIST [facility] 2 ADELAIDA O PRE CHEMO Episode Based Medications (Routine) - Authorized Specialty Diagnoses / Procedures Referred By Contact Refer red To Contact Diagnoses Malignant Neoplasm Of Pancreas Adenocarcinoma (HCC) Neutropenia Chemotherapy Induced (HCC) Kimberly Rios, Rst Onc Trace Cespedes APRNNJasson, M.S. [address] [place] [address] [place] [address] [phone] Referral ID Status Reason Start Date Expiration Date Visits V isits Requested Authorized [id number] Authorized 06/03/2020 06/03/2021 99 99 Encounter Details Date Type Department Care Team Description 08/31/2020 Office Visit Department of Nova Vivar M.B .B.S. [address] [place] [address] [phone] Malignant Neoplasm Of Oncology in [place], Pharm.D., R.Ph. [address] [place] [phone] Pancreas Adenocarcinoma [place], [place] (HCC) [address] [place], [place] [phone] Social History Tobacco Use Types Packs/Day Years [...] 06/19/2021 organizations such as confucianism groups, unions, fraAppfrica or athletic groups, or school groups? How [...] periaortic, and mesenteric lymph nodes was reported ([facility] review). 3.) 05/25/2020 CA 19-9 178 [...] this medication. She states that she will pick up attendant the prescription and try taking it this [...]
--- OUTSIDE RECORDS SUMMARY | 2021-11-15 12:24 | XMS_ITS | Encounter Summary ---
:1940 Author Organization [facility] Address [address] [place] [address] Care Team Providers Name Role Phone Unavailable Primary Care Provider Unavailable Reason for Visit Reason Comments Intake Assessment Encounter Details Date Type Department Care Team Description 09/10/2020 Clinical Communication Department of Maren Rios [facility] Oncology in [facility] C.N.P., M.S. [place] [address] [facility] [address] [place] [phone] Social History Tobacco Use Types Packs/Day Years [...]
--- OUTSIDE RECORDS SUMMARY | 2021-11-15 12:24 | XMS_ITS | Encounter Summary ---
:1940 Author Organization [facility] Address [address] [place] [address] Care Team Providers Name Role Phone Unavailable Primary Care Provider Unavailable Encounter Details Date Type Department Care Team Description 08/14/2020 Documentation Division of Endocrinology in [place], [place] [address] [facility] [address] [place] [address] [place], [place] [phone] (Wo rk) Social History Tobacco Use Types [...] for review. The patient's laboratory studies from [facility] on August 13, 2020, at 10:24 [...] Konrad Cid M.D. CT CT Job ID: [id number] documented in this encounter Plan of Treatment Not on filedocumented as of this encounter Visit Diagnoses Not on filedocumented in this encounter
--- OUTSIDE RECORDS SUMMARY | 2021-11-15 12:24 | XMS_ITS | Encounter Summary ---
:1940 Author Organization [facility] Address [address] [place] [address] Care Team Providers Name Role Phone Unavailable Primary Care Provider Unavailable Reason for Visit Outpatient (Routine) - Closed Specialty Diagnoses / Procedures Referred By Contact Refer red To Contact Diagnoses Malignant Neoplasm Of Pancreas Adenocarcinoma (HCC) Nova Vivar M.B.B.S. [facility] Procedures ONC Pump Disconnect [address] [place] [address] Referral ID Status Reason Start Date Expiration Date Visits Requ ested Visits Authorized [id number] Closed 08/04/2020 08/04/2021 1 1 Encounter Details Date Type Department Care Team Description 08/07/2020 Infusion Department of Infusion Nova Vivar Malig nant Neoplasm Of Therapy in Sera DonaldsonB.S. Pancreas Adenocarcinoma [place] [address] [facility] (HCC) (Primary Dx) [address] [place] [address] [facility] [phone] Social History Tobacco Use Types Packs/Day [...] organizations such as latter day groups, unions, fraHalldis or athletic groups, or school groups? How [...]
--- OUTSIDE RECORDS SUMMARY | 2021-11-15 12:24 | XMS_ITS | Encounter Summary ---
:1940 Author Organization [facility] Address [address] [place] [address] Care Team Providers Name Role Phone Unavailable Primary Care Provider Unavailable Reason for Visit Episode Based Medications (Routine) - Authorized Specialty Diagnoses / Procedures Referred By Contact Refer red To Contact Diagnoses Malignant Neoplasm Of Pancreas Adenocarcinoma (HCC) Neutropenia Chemotherapy Induced (HCC) Kimberly Rios, Rsmarleen Onc Coy HIGH C.N.P., M.S. [address] [place] [phone] Referral ID Status Reason Start Date Expiration Date Visits V isits Requested Authorized [id number] Authorized 06/03/2020 06/03/2021 99 99 Encounter Details Date Type Department Care Team Description 09/15/2020 Infusion Department of Oncology Nova Vivar Malig nant Neoplasm Of in [facility] MInnaB.S. Pancreas Adenocarcinoma [address] [facility] [address] [place] [address] (HCC) (Primary Dx[place] [phone] Social History Tobacco Use Types Packs/Day Years [...] Do you belong to any clubs or [employer] 06/19/2021 organizations such as anglican groups, unions, [...] dexamethasone in NaCl 0.9% IVPB 12 New 09/15/2020 8:49 AM CDT 12 mg 200 [...] 46 hours continuous infusion via CADD pump #[id number] fosaprepitant 150 mg in NaCl 0.9% New 09/15/2020 9:32 AM C DT 150 mg 510 mL/hr IVPB (EMEND) 150 mg, intravenous, at 510 mL/hr, Administer over 30 Minutes, Once, On Mon09/15/20 at 0845, For 1 dose, Incompatible with solutions containing divalent cations (calcium, magnesium) including lactated Ringer's solution. irinotecan 220 mg in D5W 559 mL New 09/15/2020 12:29 PM CD T 220 mg 373 mL/hr IVPB (CAMPTOSAR) 220 mg (rounded from 218.88 mg = 144 mg/m2 ? 1.52 m2 Order-specific BSA), intravenous, at 373 mL/hr, Administer over 90 Minutes, Once, On Mon09/15/20 at 1145, For 1 dose, May be given via y-site with leucovorin. Protect from light. leucovorin 650 mg in D5W 307.5 mL New 09/15/2020 12:29 PM CDT 650 mg 205 mL/hr IVPB 650 mg (rounded from 640 mg = 400 mg/m2 ? 1.6 m2 Treatment Plan BSA from Measured weight), intravenous, at 205 mL/hr, Administer over 90 Minutes, Once, On Mon09/15/20 at 1145, For 1 dose, Can be given via y-site with irinotecan. NaCl 0.9 % bolus 1,000 mL New Bag 09/15/2020 8:49 AM CDT 1,000 mL 1000 mL/hr 1,000 mL, intravenous, at 1,000 mL/hr, Administer over 1 Hours, Once, On Mon09/15/20 at 0845, For 1 dose ondansetron in NaCl 0.9% IVPB 16 mg New Bag 09/15/2020 9:10 AM CDT 16 mg 232 mL/hr (ZOFRAN) 16 mg, intravenous, at 232 mL/hr, Administer over 15 Minutes, Once, On Mon09/15/20 at 0845, For 1 dose oxaliplatin 100 mg in D5W 295 mL New Bag 09/15/2020 10:22 AM C DT 100 mg [...]
--- OUTSIDE RECORDS SUMMARY | 2021-11-15 12:24 | XMS_ITS | Encounter Summary ---
:1940 Author Organization [facility] Address [address] [place] [address] Care Team Providers Name Role Phone Unavailable Primary Care Provider Unavailable Reason for Visit Reason Comments Intake Assessment Encounter Details Date Type Department Care Team Description 08/13/2020 Clinical Communication Department of Nova Vivar Inta ke Assessment Oncology in M.B.B.S. [place], [place] [address] [facility] [address] [place] [phone] Social History Tobacco Use Types Packs/Day Years [...]
--- OUTSIDE RECORDS SUMMARY | 2021-11-15 12:24 | XMS_ITS | Encounter Summary ---
:1940 Author Organization [facility] Address [address] [place] [address] Care Team Providers Name Role Phone Unavailable Primary Care Provider Unavailable Reason for Referral Outpatient (Routine) Specialty Diagnoses / Procedures Referred By Contact Refer red To Contact Oncology Nova Vivar M.B.B.S . [address] [address] Referral ID Status Reason Start Date Expiration Date Visits Requ ested Visits Authorized Outpatient (Routine) Specialty Diagnoses / Procedures Referred By Contact Refer red To Contact Oncology Kimberly Rios APRN, C.N.[facility] [address] [place] [phone] Referral ID Status Reason Start Date Expiration Date Visits Requ ested Visits Authorized Reason for Visit Episode Based Medications (Routine) - Authorized Specialty Diagnoses / Procedures Referred By Contact Refer red To Contact Diagnoses Malignant Neoplasm Of Pancreas Adenocarcinoma (HCC) Neutropenia Chemotherapy Induced (HCC) Kimberly Rios, Rst Onc Harleen Cespedes APRN.N.Hsosein.[facility] [address] [place] [phone] Referral ID Status Reason Start Date Expiration Date Visits V isits Requested Authorized [id number] Authorized 06/03/2020 06/03/2021 99 99 Encounter Details Date Type Department Care Team Description 08/17/2020 Office Visit Department of Nova Vivar, Malignant Neop lasm Of Pancreas Adenocarcinoma (HCC) (Primary Dx); Oncology in .B.B.S. Hypercalcemia; [place], [place] [address] [facility] Hypoparathyroidism (HCC); [address] [place], [place] [phone] Social History Tobacco Use Types Packs/Day Years [...] PROVIDER Kimberly Rios APRN, C.N.P., M.S. [address] [place] [phone] LOCAL ONCOLOGIST No care food court team member to display PRIMARY [place] ONCOLOGIST Nova Vivar M.B.B.S. Kimberly Rios APRN, [...] periaortic, and mesenteric lymph nodes was reported ([facility] review). 3.) 05/25/2020 CA 19-9 [id number] [...] of care as described above. This include jscy-cv-dzfc and non zxio-gv-myog time. documented in this encounter Plan of Treatment Scheduled Referrals Name Type Priority Associated Diagnoses Order S [facility] Oncology office Outpatient Referral Routine Malignant [...] 21 7:19 Venous) CDT AM CDT Nova Allen LAB BLOOD ADD-ON Performing Organization Address City/State/ZIP Code Phon e Number [facility] - 200 [place], [place] [address] [facility] [place] [address] Laboratories-[facility] [address] [facility] (ABNORMAL) Comprehensive Metabolic Panel (09/29/2020 6:48 AM CDT) P athologist Signature Potassium, S [...] 09/29/2020 DTL Black/ mL/min/BSA 7:41 AM CDT Greenlandic Comment: ----ADDITIONAL INFORMATION---- Estimated GFR calculated using [...] City/State/ZIP Code Phon e Number [facility] - [address] [place] [address] [facility] [place] [place] [address] [facility] 200 [facility] (ABNORMAL) CBC with Differential, Blood (09/29/2020 6:48 AM CDT) [facility] Method Time Signature Hemoglobin 9.9 (L) [...] 21 7:01 Venous) CDT AM CDT Nova Fontaine.B.S. LAB BLOOD ADD-ON Performing Organization Address City/[facility] Code Phon e Number [facility] - [address] [address] [facility] 200 [facility] Magnesium (09/29/2020 6:48 AM CDT) P athologist Signature Magnesium, S 2.2 1.7 - 2.3 09/29/2020 DTL mg/dL 7:41 AM CDT Specimen Anatomical Collection Method Collection Time Receive d Time (Source) Location / / Volume Laterality Blood (Blood, 09/29/2020 6:48 AM 09/30/19 21 7:14 Venous) CDT AM CDT Nova ZamoraB.S. LAB BLOOD ADD-ON Performing Organization Address City/State/[facility] Phon e Number [facility] - 200 [place] [phone] [facility] [address] (ABNORMAL) CBC with Differential, Blood (09/14/2020 8:34 AM CDT) [facility] Method Time Signature Hemoglobin 9.7 (L) [...] City/State/ZIP Code Phon e Number [facility] - 200 [place], [place] [address] [facility] [place] [place] [address] Laboratories-[address] Bilirubin, Direct (09/14/2020 8:33 AM CDT) athologist Signature Bilirubin, <0.2 0.0 - 0.3 09/14/2020 DTL Direct, S mg/dL 10:21 AM CDT Specimen Anatomical Collection Method Collection Time Receive d Time (Source) Location / / Volume Laterality Blood (Blood, 09/14/2020 8:33 AM 09/15/19 8:55 Venous) CDT AM CDT Nova Allen LAB BLOOD ADD-ON Performing Organization Address [facility] Phon e Number [facility] - 200 [place], [place] [address] [place] [address] Laboratories-[address] (ABNORMAL) Comprehensive Metabolic Panel (09/14/2020 8:33 [...] 09/14/2020 DTL Black/ mL/min/BSA 10:22 AM CDT Greenlandic Comment: ----ADDITIONAL INFORMATION---- Estimated GFR calculated using [...] City/State/ZIP Code Phon e Number [facility] - [address] [place], [place] [address] [facility] [place] [address] Laboratories-[facility] [address] Magnesium (09/14/2020 8:33 AM CDT) P athologist Signature Magnesium, S 2.1 1.7 - 2.3 09/14/2020 DTL mg/dL 10:22 AM CDT Specimen Anatomical Collection Method Collection Time Receive d Time (Source) Location / / Volume Laterality Blood (Blood, 09/14/2020 8:33 AM 09/15/19 8:55 Venous) CDT AM CDT Nova ZamoraB.S. LAB BLOOD ADD-ON Performing Organization Address City/[facility]/ZIP Code Phon e Number [facility] - [address] [place], [place] [address] [place] [address] Laboratories-[facility] [address] (ABNORMAL) Carbohydrate Antigen 19-9 (CA 19-9) (09/14/2020 8:33 AM CDT) Analysis Performed At Patho logist Time Signature Carbohydrate Ag 57 (H) <35 U/mL 09/14/2020 [facility] 19-9, S 1:47 PM CDT Comment: ----ADDITIONAL INFORMATION---- The testing method is an immunoenzymatic assay manufactured by [employer]. and performed on the RxEyeI 800. ? Values obtained with different assay [...] 09/15/19 Venous) CDT 12:55 PM CDT Nova ZamoraB.SChico LAB BLOOD ADD-ON Performing Organization Address City/[facility]/ZIP Code Phon e Number [facility] [address] [place], [place] [address] [facility] [place] [address] Laboratory Medicine and Pathology [address] [place] Bilirubin, Direct (08/31/2020 7:27 AM CDT) P athologist Signature Bilirubin, <0.2 0.0 - 0.3 08/31/2020 DTL Direct, S mg/dL 8:29 AM CDT Specimen Anatomical Collection Method Collection Time Receive d Time (Source) Location / / Volume Laterality Blood (Blood, 08/31/2020 7:27 AM 09/01/19 7:38 Venous) CDT AM CDT Nova ZamoraBChicoS. LAB BLOOD ADD-ON Performing Organization Address City/State/ZIP Code Phon e Number [facility] - 200 [place], [place] [address] [facility] [place] [address] Laboratories-[facility] 200 [facility] Comprehensive Metabolic Panel (08/31/2020 7:27 AM [...] 08/31/2020 DTL Black/ mL/min/BSA 8:28 AM CDT Greenlandic Comment: ----ADDITIONAL INFORMATION---- Estimated GFR calculated using [...] McnealS. LAB BLOOD ADD-ON Performing Organization Address City/State/[facility] Code Phon e Number [facility] - 200 [place], [place] [address] [facility] [place] [place] [address] Laboratories-[facility] 200 [facility] (ABNORMAL) CBC with Differential, Blood (08/31/2020 7:27 AM CDT) [facility] Method Time Signature Hemoglobin 9.8 (L) [...] ZamoraB.S. LAB BLOOD ADD-ON Performing Organization Address [facility] Phon e Number [facility] [address] Magnesium (08/31/2020 7:27 AM CDT) P athologist Signature Magnesium, S 2.0 1.7 - 2.3 08/31/2020 DTL mg/dL 8:28 AM CDT Specimen Anatomical Collection Method Collection Time Receive d Time (Source) Location / / Volume Laterality Blood (Blood, 08/31/2020 7:27 AM 09/01/19 21 7:38 Venous) CDT AM CDT Nova ZamoraB.S. LAB BLOOD ADD-ON Performing Organization Address City/State/[facility] Phon e Number [facility] - [phone] [place] [address] documented in this encounter Visit Diagnoses Diagnosis Malignant Neoplasm Of Pancreas Adenocarc inoma (HCC) - Primary Hypercalcemia Hypoparathyroidism (HCC) Insufficiency Renal documented in this encounter
--- OUTSIDE RECORDS SUMMARY | 2021-11-15 12:24 | XMS_ITS | Encounter Summary ---
:1940 Author Organization [facility] Address [address] [place] [address] Care Team Providers Name Role Phone Unavailable Primary Care Provider Unavailable Encounter Details Date Type Department Care Team Description 08/18/2020 Clinical Communication Department of Andrew Oncology in Shilo Cespedes [place], [place] [address] [place] [address] [address] [place] [phone] Social History Tobacco Use Types Packs/Day Years [...]
--- OUTSIDE RECORDS SUMMARY | 2021-11-15 12:24 | XMS_ITS | Encounter Summary ---
:1940 Author Organization [facility] Address [address] [place] [address] Care Team Providers Name Role Phone Unavailable Primary Care Provider Unavailable Reason for Visit Episode Based Medications (Routine) - Authorized Specialty Diagnoses / Procedures Referred By Contact Refer red To Contact Diagnoses Malignant Neoplasm Of Pancreas Adenocarcinoma (HCC) Neutropenia Chemotherapy Induced (HCC) Kimberly Rios, Rsmarleen Onc Coy HIGH C.N.P., M.S. [address] [place] [address] [place] [phone] Referral ID Status Reason Start Date Expiration Date Visits V isits Requested Authorized [id number] Authorized 06/03/2020 06/03/2021 99 99 Encounter Details Date Type Department Care Team Description 08/17/2020 Lab Department of Laboratory Kimberly Rios, Malignant Neoplasm Of Medicine and Pathology, LENNOX C. N.P., M.S. Pancreas Adenocarcinoma [place], in [address] [place] [address] (HCC) (Primary Dx) [place], [place] [address] [place] [phone] [place] [phone] Social History Tobacco Use Types Packs/Day [...] ZamoraB.S. LAB BLOOD ADD-ON Performing Organization Address [facility] Phon e Number [facility] - [address] [place] [address] [place] [address] Bilirubin, Direct (08/17/2020 8:41 AM CDT) athologist Signature Bilirubin, <0.2 0.0 - 0.3 08/17/2020 DTL Direct, S mg/dL 9:39 AM CDT Specimen Anatomical Collection Method Collection Time Receive d Time (Source) Location / / Volume Laterality Blood (Blood, 08/17/2020 8:41 AM 08/18/19 8:53 Venous) CDT AM CDT Kimberly Rios APRN, C.N.P., M.S. LAB BLOOD ADD-ON Performing Organization Address City/[facility] Phon e Number [address] [place] [address] (ABNORMAL) Comprehensive Metabolic Panel (08/17/2020 8:41 AM CDT) Analysis Performed At Patho logist Time Signature Potassium, S 3.4 (L) 3.6 - [...] 08/17/2020 DTL 9:39 AM CDT BUN (Blood Urea 25 (H) 6 - 21 08/17/2020 DTL Nitrogen), S mg/dL 9:39 AM CDT Creatinine 1.29 (H) 0.59 - 08/17/2020 DTL 1.04 mg/dL 9:39 AM CDT eGFR-Non 40 (L) >=60 08/17/2020 DTL Black/ mL/min/BSA 9:39 AM CDT Guatemalan Comment: ----ADDITIONAL INFORMATION---- Estimated GFR calculated using [...] City/State/ZIP Code Phon e Number [facility] - [address] [place], [place] [address] [facility] [address] Laboratories-[facility] [address] [facility] (ABNORMAL) CBC with Differential, Blood (08/17/2020 8:41 AM CDT) [facility] Method Time Signature Hemoglobin 10.2 (L) [...] City/State/ZIP Code Phon e Number [facility] - [address] [place] [address] [facility] [address] Laboratories-[facility] [address] documented in this [...]
--- OUTSIDE RECORDS SUMMARY | 2021-11-15 12:24 | XMS_ITS | Encounter Summary ---
:1940 Author Organization [facility] Address [address] [place] [address] Care Team Providers Name Role Phone Unavailable Primary Care Provider Unavailable Reason for Visit Reason Comments Med Refill Encounter Details Date Type Department Care Team Description 09/01/2020 Refill Division of Endocrinology in Konrad Styles M.D. Med Refill [place], [place] [address] [facility] [address] [place] [phone] (Wo rk) Social History Tobacco Use Types [...] follows her levels Name of the pharmacy: [facility] [id number] Preferred Pharmacy Correct in EPIC (yes or [...]
--- OUTSIDE RECORDS SUMMARY | 2021-11-15 12:25 | XMS_ITS | Encounter Summary ---
:1940 Author Organization [facility] Address [address] [place] [address] Care Team Providers Name Role Phone Unavailable Primary Care Provider Unavailable Reason for Visit Outpatient (Routine) - Closed Specialty Diagnoses / Procedures Referred By Contact Refer red To Contact Diagnoses Malignant Neoplasm Of Pancreas Adenocarcinoma (HCC) Nova Vivar M.B.B.S. [facility] Procedures ONC Pump Disconnect [address] [place], [place] [address] Referral ID Status Reason Start Date Expiration Date Visits Requ ested Visits Authorized [id number] Closed 08/06/2020 08/06/2021 1 1 Encounter Details Date Type Department Care Team Description 08/06/2020 Infusion Department of Oncology Nova Vivar Malig nant Neoplasm Of in [facility] [place] [facility] M.B.B.S. Pancreas Adenocarcinoma [address] (HCC) (Primary Dx) [place] [phone] Social History Tobacco Use Types Packs/Day [...] hours continuous infusion via CADD pump # [id number] sodium chloride 0.9 % injection 10 mL Given 08/06/2020 10:12 AM CDT 10 mL 10 mL, intra-catheter, As needed, line care, Starting on Laila 08/06/20 at 1002, When IVAD Accessed and in Use: Flush prior to and following infusion, between multiple consecutive infusions, and prior to blood sampling. documented in this encounter
--- OUTSIDE RECORDS SUMMARY | 2021-11-15 12:25 | XMS_ITS | Encounter Summary ---
:1940 Author Organization [facility] Address [address] [place] [address] Care Team Providers Name Role Phone Unavailable Primary Care Provider Unavailable Reason for Visit Reason Comments Outpatient Infusion DC pump Outpatient (Routine) - Closed Specialty Diagnoses / Procedures Referred By Contact Refer red To Contact Diagnoses Malignant Neoplasm Of Pancreas Adenocarcinoma (HCC) Nova Vivar M.B.B.S. [facility] Procedures ONC Pump Disconnect [address] [place] [address] Referral ID Status Reason Start Date Expiration Date Visits Requ ested Visits Authorized [id number] Closed 07/21/2020 07/21/2021 1 1 Encounter Details Date Type Department Care Team Description 07/23/2020 Infusion Department of Infusion Nova Vivar Malig nant Neoplasm Of Therapy in Sera DonaldsonB.S. Pancreas Adenocarcinoma [place] [address] [facility] (HCC) (Primary Dx) [address] [place] [address] [facility] [phone] Social History Tobacco Use Types Packs/Day [...] 06/19/2021 organizations such as mandaeism groups, unions, fraHistoSonics or athletic groups, or school groups? How [...]
--- OUTSIDE RECORDS SUMMARY | 2021-11-15 12:25 | XMS_ITS | Encounter Summary ---
:1940 Author Organization [facility] Address [address] [place] [address] Care Team Providers Name Role Phone Unavailable Primary Care Provider Unavailable Reason for Visit Episode Based Medications (Routine) - Authorized Specialty Diagnoses / Procedures Referred By Contact Refer red To Contact Diagnoses Malignant Neoplasm Of Pancreas Adenocarcinoma (HCC) Neutropenia Chemotherapy Induced (HCC) Kimberly Rios, Rsmarleen Onc Coy HIGH C.N.P., M.S. [address] [place] [address] [place] [phone] Referral ID Status Reason Start Date Expiration Date Visits V isits Requested Authorized [id number] Authorized 06/03/2020 06/03/2021 99 99 Encounter Details Date Type Department Care Team Description 07/07/2020 Lab Department of Laboratory Kimberly Rios, Malignant Neoplasm Of Medicine and Pathology, LENNOX C. N.P., M.S. Pancreas Adenocarcinoma [place], in [address] [place] [address] (HCC) (Primary Dx) [place], [place] [address] [place] [phone] [place] [phone] Social History Tobacco Use Types Packs/Day [...] M.S. LAB BLOOD ADD-ON Performing Organization Address City/[facility] Phon e Number [facility] - 200 [place], [place] [address] [place] [phone] [place] [address] Bilirubin, Direct (07/07/2020 7:43 AM CDT) athologist Signature Bilirubin, <0.2 0.0 - 0.3 07/07/2020 DTL Direct, S mg/dL 8:28 AM CDT Specimen Anatomical Collection Method Collection Time Receive d Time (Source) Location / / Volume Laterality Blood (Blood, 07/07/2020 7:43 AM 07/08/19 7:59 Venous) CDT AM CDT Trace Rudolph APRNN.Hossein., M.S. LAB BLOOD ADD-ON Performing Organization Address City/[facility] Phon e Number [facility] - [address] [place] [address] [place] [phone] [place] [address] (ABNORMAL) Comprehensive Metabolic Panel (07/07/2020 7:43 AM CDT) Analysis Performed At Patho logist Time Signature Potassium, S 3.6 3.6 - 5.2 [...] 07/07/2020 DTL 8:28 AM CDT BUN (Blood Urea 20 6 - 21 07/07/2020 DTL Nitrogen), S mg/dL 8:28 AM CDT Creatinine 1.13 (H) 0.59 - 07/07/2020 DTL 1.04 mg/dL 8:28 AM CDT eGFR-Non 47 (L) >=60 07/07/2020 DTL Black/ mL/min/BSA 8:28 AM CDT [place] Comment: ----ADDITIONAL INFORMATION---- Estimated GFR calculated using [...] Address City/State/ZIP Code Phon e Number [facility] - [address] [place], [place] [address] [facility] [place] [address] Laboratories-[facility] [address] [facility] (ABNORMAL) CBC with Differential, Blood (07/07/2020 7:43 AM CDT) [facility] Method Time Signature Hemoglobin 10.4 (L) 11.6 [...] Address City/State/ZIP Code Phon e Number [facility] - [address] [place], [place] [address] [facility] [place] [place] [address] Laboratories-[facility] [address] documented in [...]
--- OUTSIDE RECORDS SUMMARY | 2021-11-15 12:25 | XMS_ITS | Encounter Summary ---
:1940 Author Organization [facility] Address [address] [place] [address] Care Team Providers Name Role Phone Unavailable Primary Care Provider Unavailable Reason for Visit Outpatient (Routine) - Closed Specialty Diagnoses / Procedures Referred By Contact Refer red To Contact Diagnoses Malignant Neoplasm Of Pancreas Adenocarcinoma (HCC) Kimberly Rios APRN, [facility] Procedures ONC Pump Disconnect C.N.P., M.S. [address] [place] [address] Referral ID Status Reason Start Date Expiration Date Visits Requ ested Visits Authorized [id number] Closed 07/07/2020 07/07/2021 1 1 Encounter Details Date Type Department Care Team Description 07/09/2020 Infusion Department of Infusion Kimberly Rios Ma lignant Neoplasm Of Therapy in [facility], LENNOX, C.N.P., Sigala creas Adenocarcinoma [facility].S. (HCC) (Primary Dx) [address] [place] [phone] Social History Tobacco Use [...] 06/19/2021 organizations such as advent groups, unions, [employer]ASC [place] or athletic groups, or school groups? How [...]
--- OUTSIDE RECORDS SUMMARY | 2021-11-15 12:25 | XMS_ITS | Encounter Summary ---
:1940 Author Organization [facility] Address [address] [place] [address] Care Team Providers Name Role Phone Unavailable Primary Care Provider Unavailable Reason for Referral MRI/CAT/PET Scan (Routine) - Closed Specialty Diagnoses / Procedures Referred By Contact Refer red To Contact Radiology Diagnoses Malignant Neoplasm Of Pancreas Adenocarcinoma (HCC) Nova Vivar M.B.B.S. [facility] Procedures CT Abdomen Pelvis with IV Contrast 200 [place] [phone] Referral ID Status Reason Start Date Expiration Date Visits Requ ested Visits Authorized [id number] Closed 07/20/2020 07/20/2021 1 1 MRI/CAT/PET Scan (Routine) - Closed Specialty Diagnoses / Procedures Referred By Contact Refer red To Contact Radiology Diagnoses Malignant Neoplasm Of Pancreas Adenocarcinoma (HCC) Nova Vivar M.B.B.S. [facility] Procedures CT Chest with IV Contrast 200 [place], [place] [phone] Referral ID Status Reason Start Date Expiration Date Visits Requ ested Visits Authorized [id number] Closed 07/20/2020 07/20/2021 1 1 Reason for Visit Episode Based Medications (Routine) - Authorized Specialty Diagnoses / Procedures Referred By Contact Refer red To Contact Diagnoses Malignant Neoplasm Of Pancreas Adenocarcinoma (HCC) Neutropenia Chemotherapy Induced (HCC) Kimberly Rios, Rst Onc Rogo GRAIN DISTRIBUTOR, C.N.P., M.S. [address] [facility] [address] [place] [phone] Referral ID Status Reason Start Date Expiration Date Visits V isits Requested Authorized [id number] Authorized 06/03/2020 06/03/2021 99 99 Encounter Details Date Type Department Care Team Description 07/20/2020 Office Visit Department of Ma, Nova Lauren, Malignant Neop lasm Of Pancreas Adenocarcinoma (HCC) (Primary Dx); Oncology in M.B.B.S. Secondary Malignant Neoplasm Lymph Node (HCC) [place], [place] [address] [facility] [address] [place] [phone] Social History Tobacco Use Types Packs/Day Years [...] PROVIDER Kimberly Rios APRN, C.N.P., M.S. [address] [place] [phone] LOCAL ONCOLOGIST No care production team manager to display PRIMARY [place] ONCOLOGIST Nova Vivar M.B.B.S. Kimberly Rios APRN, [...] periaortic, and mesenteric lymph nodes was reported ([facility] review). 3.) 05/25/2020 [place] 19-9 178 [...] of care as described above. This include vzxc-vc-mbav and non ixle-yu-apsd time. documented in this encounter Miscellaneous Notes Addendum Note - Keshawn Morales R.N. - 07/20/2020 2:00 PM CDT Addended by: KESHAWN MORALES on: 07/21/2020 11:13 AM Modules accepted: Orders documented in this encounter Plan of Treatment Not on filedocumented as of this encounter Results Magnesium (08/17/2020 8:41 AM CDT) P athologist Signature Magnesium, S 2.3 1.7 - 2.3 08/17/2020 DTL mg/dL 9:32 AM CDT Specimen Anatomical Collection Method Collection Time Receive d Time (Source) Location / / Volume Laterality Blood (Blood, 08/17/2020 8:41 AM 08/18/19 8:53 Venous) CDT AM CDT Nova Fontaine.B.S. LAB BLOOD ADD-ON Performing Organization Address City/State/ZIP Code Phon e Number [facility] - 200 [place], [place] [address] [facility] [place] [address] Laboratories-[facility] 200 [facility] (ABNORMAL) Carbohydrate Antigen 19-9 (CA 19-9) (08/03/2020 9:39 AM CDT) Analysis Performed At Patho logist Time Signature Carbohydrate Ag 98 (H) <35 U/mL 08/03/2020 [facility] 19-9, S 3:04 PM CDT Comment: ----ADDITIONAL INFORMATION---- The testing method is an immunoenzymatic assay manufactured by [employer] and performed on the [employer] DxI 800. ? Values obtained with different assay met hods or kits may be different and cannot be used inte rchangeably. ? Test results cannot be interpreted as ab solute evidence for the presence or absence of malignant disease. Specimen Anatomical Collection Method Collection Time Receive d Time (Source) Location / / Volume Laterality Blood (Blood, 08/03/2020 9:39 AM 08/04/19 21 1:56 Venous) CDT PM CDT Nova Fontaine.B.S. LAB BLOOD ADD-ON Performing Organization Address City/State/ZIP Code Phon e Number [facility] [address] [place], [place] [address] [facility] [place] [address] Laboratory Medicine and Pathology [address] R[place] Magnesium (08/03/2020 9:39 AM CDT) P athologist Signature Magnesium, S 2.0 1.7 - 2.3 08/03/2020 DTL mg/dL 10:43 AM CDT Specimen Anatomical Collection Method Collection Time Receive d Time (Source) Location / / Volume Laterality Blood (Blood, 08/03/2020 9:39 AM 08/04/19 9:53 Venous) CDT AM CDT Nova Allen LAB BLOOD ADD-ON Performing Organization Address City/[facility]/ZIP Code Phon e Number [facility] - [address] [place], [place] [address] [facility] [place] [address] Laboratories-[facility] [address] Abdomen Pelvis with IV Contrast (07/31/2020 [...] mm hypodensity in hepatic segme nt VIII (07/14), favored to represent a cyst. The common [...] up to 3-4 mm were above the ptluq-eu-fonl on p rior imaging, for example in [...] up to 3-4 mm were above the sflad-am-cxtq on p rior imaging, for example in the right middle lobe (3/327) and right upper lobe (3/139). IMPRESSION: Indeterminate pulmonary nodules measurin g up to 5 mm for which this can serve as a baseline for follow-up imaging. Nova McnealS. IMG CT PROCEDURES Magnesium (07/20/2020 1:21 PM CDT) P athologist Signature Magnesium, S 2.2 1.7 - 2.3 07/21/2020 DTL mg/dL 11:33 AM CDT Specimen Anatomical Collection Method Collection Time Receive d Time (Source) Location / / Volume Laterality Blood (Blood, 07/20/2020 1:21 PM 07/22/19 21 Venous) CDT 11:03 AM CDT Nova Allen LAB BLOOD ADD-ON Performing Organization Address City/State/ZIP Code Phon e Number [facility] - [address] [place], [place] [address] [facility] [place] [address] Laboratories-[facility] [address] documented in this encounter Visit Diagnoses Diagnosis Malignant Neoplasm Of Pancreas Adenocarc inoma (HCC) - Primary Secondary Malignant Neoplasm Lymph Node (HCC) Malignant Neoplasm Of Pancreas Adenocarc inoma (HCC) documented in this encounter
--- OUTSIDE RECORDS SUMMARY | 2021-11-15 12:25 | XMS_ITS | Encounter Summary ---
:1940 Author Organization [facility] Address [address] [place] [address] Care Team Providers Name Role Phone Unavailable Primary Care Provider Unavailable Reason for Referral Outpatient (Routine) - Closed Specialty Diagnoses / Procedures Referred By Contact Refer red To Contact Diagnoses Malignant Neoplasm Of Pancreas Adenocarcinoma (HCC) Hypocalcemia Hypoparathyroidism (HCC) [facility] Procedures BMD Bone Density Spine Hips C.N.P., M.S. [address] [place] [phone] Referral ID Status Reason Start Date Expiration Date Visits Requ ested Visits Authorized [id number] Closed 07/07/2020 07/07/2021 1 1 Reason for Visit Outpatient (Routine) - Closed Specialty Diagnoses / Procedures Referred By Contact Refer red To Contact Diagnoses Malignant Neoplasm Of Pancreas Adenocarcinoma (HCC) Hypocalcemia Hypoparathyroidism (HCC) Kimberly Rios APRN, [facility] Procedures BMD Bone Density Spine Hips C.N.P., M.S. [address] [place] [phone] Referral ID Status Reason Start Date Expiration Date Visits Requ ested Visits Authorized [id number] Closed 07/07/2020 07/07/2021 1 1 Encounter Details Date Type Department Care Team Description 07/24/2020 Hospital Department of Gabriel, Malignant Neop lasm Of Pancreas Adenocarcinoma (HCC); Encounter Radiology, Gondbobby Phillips, [place] rosales; Building, in Frank HIGH, Hypoparathyroi dism (HCC) [facility] [address] [facility] [address] [place] [phone] Social History Tobacco Use Types Packs/Day Years [...] Sig Dispensed Refills Start Date End Date bwifwwk-N9-xdbv-copper-ma Take by mouth. 0 2020 tawana (Citracal-D3 Maximum Taking 3-4 daily Plus) 325 mg-12.5 mcg -2.75 mg tablet ESTRIOL MICRONIZED, BULK, Three Times Weekly 0 [facility] lidocaine-prilocaine Apply 1 application 30 g 0 [...] including images and graphs, is available in yavalu. ?In the absence of other causes of [...] evidence of skeletal fragility [facility] the [facility]. Degenerative changes are present which m ay spuriously elevate the spine BMD measurement. Patient does not meet ISCD guidelines fo r FRAX calculations. IMPRESSION: Osteopenia Kimberly Rios APRN, C.N.P., M.S. 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
--- OUTSIDE RECORDS SUMMARY | 2021-11-15 12:25 | XMS_ITS | Encounter Summary ---
:1940 Author Organization [facility] Address [address] [place] [address] Care Team Providers Name Role Phone Unavailable Primary Care Provider Unavailable Reason for Referral MRI/CAT/PET Scan (Routine) - Closed Specialty Diagnoses / Procedures Referred By Contact Refer red To Contact Radiology Diagnoses Malignant Neoplasm Of Pancreas Adenocarcinoma (HCC) Nova Vivar M.B.B.S. [facility] Procedures CT Abdomen Pelvis with IV Contrast 200 [place], [place] [phone] Referral ID Status Reason Start Date Expiration Date Visits Requ ested Visits Authorized [id number] Closed 07/20/2020 07/20/2021 1 1 MRI/CAT/PET Scan (Routine) - Closed Specialty Diagnoses / Procedures Referred By Contact Refer red To Contact Radiology Diagnoses Malignant Neoplasm Of Pancreas Adenocarcinoma (HCC) Nova Vivar M.B.B.S. [facility] Procedures CT Chest with IV Contrast 200 [place] [address] Referral ID Status Reason Start Date Expiration Date Visits Requ ested Visits Authorized [id number] Closed 07/20/2020 07/20/2021 1 1 Reason for Visit MRI/CAT/PET Scan (Routine) - Closed Specialty Diagnoses / Procedures Referred By Contact Refer red To Contact Radiology Diagnoses Malignant Neoplasm Of Pancreas Adenocarcinoma (HCC) Nova Vivar M.B.B.S. [facility] Procedures CT Abdomen Pelvis with IV Contrast [address] [place] [phone] Referral ID Status Reason Start Date Expiration Date Visits Requ ested Visits Authorized [id number] Closed 07/20/2020 07/20/2021 1 1 Encounter Details Date Type Department Care Team Description 07/31/2020 Hospital Encounter Department of Nova Vivar Malignan t Neoplasm Of Radiology, Cristian McnealSCh[place] Pancreas Adenocarcinoma Building, in [address] [place] [address] (HCC) [facility] [phone] [place] [address] [place], [place] (Work) [phone] Social History Tobacco Use Types Packs/Day Years [...] Sig Dispensed Refills Start Date End Date yhkjzvt-F1-bpiu-copper-ma Take by mouth. 0 2020 tawana (Citracal-D3 [...] of this encounter Nursing Notes Dorothy Lion RChicoN. - 07/31/2020 12:15 PM CDT Patient has [...] convincing findings of hepatic metastatic disease. Nova ZamoraBChicoS. IMG CT PROCEDURES CT Chest with IV [...] up to 3-4 mm were above the qtbkv-yx-ertb on p rior imaging, for example in [...] up to 3-4 mm were above the xlcyx-kk-spkm on p rior imaging, for example in the right middle lobe (3/327) and right upper lobe (3/139). IMPRESSION: Indeterminate pulmonary nodules measurin g up to 5 mm for which this can serve as a baseline for follow-up imaging. Nova ZamoraB.S. IMG CT PROCEDURES documented in this encounter [...]
--- OUTSIDE RECORDS SUMMARY | 2021-11-15 12:25 | XMS_ITS | Encounter Summary ---
:1940 Author Organization [facility] Address [address] [place] [address] Care Team Providers Name Role Phone Unavailable Primary Care Provider Unavailable Reason for Visit Episode Based Medications (Routine) - Authorized Specialty Diagnoses / Procedures Referred By Contact Refer red To Contact Diagnoses Malignant Neoplasm Of Pancreas Adenocarcinoma (HCC) Neutropenia Chemotherapy Induced (HCC) Kimberly Rios, Rst Onc Coy HIGH C.N.P., M.S. [address] [facility] [address] [place] [phone] Referral ID Status Reason Start Date Expiration Date Visits V isits Requested Authorized [id number] Authorized 06/03/2020 06/03/2021 99 99 Encounter Details Date Type Department Care Team Description 08/03/2020 Lab Department of Infusion Kimberly Rios, Malignant Neoplasm Of Therapy in [facility] LENNOX C.N. P., M.S. Pancreas Adenocarcinoma [place] [address] [place] [address] (HCC) (Primary Dx) [address] [place] [phone] Social History Tobacco Use Types Packs/Day Years [...] Carbohydrate Ag 98 (H) <35 U/mL 08/03/2020 [facility] 19-9, S 3:04 PM CDT Comment: ----ADDITIONAL INFORMATION---- The testing method is an immunoenzymatic assay manufactured by [employer]. and performed on the [employer] 800. ? Values obtained with different assay [...] Organization Address City/State/ZIP Code Phon e Number [facility] [address] [place], [place] [address] [facility] [place] [address] Laboratory Medicine and Pathology [address] [place] Magnesium (08/03/2020 9:39 AM CDT) P athologist Signature Magnesium, S 2.0 1.7 - 2.3 08/03/2020 DTL mg/dL 10:43 AM CDT Specimen Anatomical Collection Method Collection Time Receive d Time (Source) Location / / Volume Laterality Blood (Blood, 08/03/2020 9:39 AM 08/04/19 9:53 Venous) CDT AM CDT Nova ZamoraB.S. LAB BLOOD ADD-ON Performing Organization Address City/[facility]/ZIP [facility] Phon e Number [facility] - [address] [place], [place] [address] [facility] [place] [address] Laboratories-[facility] [address] Bilirubin, Direct (08/03/2020 9:39 [...] Organization Address City/State/ZIP Code Phon e Number [facility] - [address] [place], [place] [address] [facility] [place] [address] [facility] [address] [facility] (ABNORMAL) Comprehensive Metabolic Panel (08/03/2020 9:39 AM [...] DTL Nitrogen), S mg/dL 10:53 AM CDT Creatinine 0.86 0.59 - 08/03/2020 DTL 1.04 mg/dL 10:53 AM CDT eGFR-Non 65 >=60 08/03/2020 DTL Black/ mL/min/BSA 10:[address] [facility] Comment: ----ADDITIONAL INFORMATION---- Estimated GFR calculated using [...] 08/04/19 21 9:52 Venous) CDT AM CDT Harleen Rudolph APRN.N.P., M.S. LAB BLOOD ADD-ON Performing Organization Address City/State/ZIP Code Phon e Number [facility] - [address] [place] [address] [facility] [place] [address] [facility] [address] [facility] (ABNORMAL) CBC with Differential, Blood (08/03/2020 9:39 AM CDT) [facility] Method Time Signature Hemoglobin 9.4 (L) 11.6 [...] AM 08/04/19 9:53 Venous) CDT AM CDT Trace Rudolph APRNN.P., M.S. LAB BLOOD ADD-ON Performing Organization Address City/State/ZIP Code Phon e Number [facility] - [address] [place], [place] [address] [facility] [place] [address] Laboratories[facility] [address] documented in [...]
--- OUTSIDE RECORDS SUMMARY | 2021-11-15 12:25 | XMS_ITS | Encounter Summary ---
:1940 Author Organization [facility] Address [address] [place] [address] Care Team Providers Name Role Phone Unavailable Primary Care Provider Unavailable Reason for Referral Outpatient (Routine) Specialty Diagnoses / Procedures Referred By Contact Refer red To Contact Oncology Kimberly Rios APRN, C.N.PCh[place], [facility] [address] [place], [place] [phone] Referral ID Status Reason Start Date Expiration Date Visits Requ ested Visits Authorized utpatient (Routine) Specialty Diagnoses / Procedures Referred By Contact Dory simon To Contact Oncology Kimberly Rios APRN, C.N.PCh[place], [facility] [address] [place] [address] Referral ID Status Reason Start Date Expiration Date Visits Requ ested Visits Authorized Encounter Details Date Type Department Care Team Description 07/07/2020 Orders Only Department of Kimberly Rios eoplasm Of Oncology in [place] Phillips C.N.PCh[place], Pancreas Ad enocarcinoma [facility]. (HCC) (Primary Dx) [address] [facility] [address] [place] [phone] Social History Tobacco Use Types Packs/Day Years [...] Name Type Priority Associated Diagnoses [facility] office Outpatient Referral Routine Malignant Neoplasm Of Expected: visit (clinic) Pancreas Adenocarcinoma , (HCC) Expires: 08/03/2021 Oncology office Outpatient Referral Routine Malignant Neoplasm Of Expected: visit (clinic) Pancreas Adenocarcinoma , (HCC) Expires: 08/17/2021 documented as of this encounter Results Bilirubin, Direct (08/17/2020 8:41 AM CDT) P athologist Signature Bilirubin, <0.2 0.0 - 0.3 08/17/2020 DTL Direct, S mg/dL 9:39 AM CDT Specimen Anatomical Collection Method Collection Time Receive d Time (Source) Location / / Volume Laterality Blood (Blood, 08/17/2020 8:41 AM 08/18/19 8:53 Venous) CDT AM CDT Kimberly Alan Rios APRN, C.N.P., M.S. LAB BLOOD ADD-ON Performing Organization Address City/State/ZIP Code Phon e Number [facility] - [address] [place], [place] [address] [facility] [place] [address] Laboratories-[facility] [address] (ABNORMAL) Comprehensive Metabolic Panel (08/17/2020 8:41 AM [...] 08/17/2020 DTL Black/ mL/min/BSA 9:39 AM CDT Bermudian Comment: ----ADDITIONAL INFORMATION---- Estimated GFR calculated using [...] City/State/ZIP Code Phon e Number [facility] - [address] [place] [address] [facility] [place] [address] [facility] 200 [facility] (ABNORMAL) CBC with Differential, Blood (08/17/2020 8:41 AM CDT) [facility] gist Method Time Signature Hemoglobin 10.2 (L) [...] AM 08/18/19 9:03 Venous) CDT AM CDT Trace Rudolph APRNN.P., M.S. LAB BLOOD ADD-ON Performing Organization Address City/State/ZIP Code Phon e Number [facility] - [address] [place], [place] [address] [facility] [place] [address] [facility] [address] Bilirubin, Direct (08/03/2020 9:39 AM CDT) P athologist Signature Bilirubin, <0.2 0.0 - 0.3 08/03/2020 DTL Direct, S mg/dL 10:53 AM CDT Specimen Anatomical Collection Method Collection Time Receive d Time (Source) Location / / Volume Laterality Blood (Blood, 08/03/2020 9:39 AM 08/04/19 9:52 Venous) CDT AM CDT Kimberly Rios APRN, C.N.P., M.S. LAB BLOOD ADD-ON Performing Organization Address City/State/ZIP Code Phon e Number [facility] - 200 [place], [place] [address] [facility] [place] [address] [facility] [address] [facility] (ABNORMAL) Comprehensive Metabolic Panel (08/03/2020 9:39 AM [...] 08/03/2020 DTL Black/ mL/min/BSA 10:53 AM CDT Bermudian Comment: ----ADDITIONAL INFORMATION---- Estimated GFR calculated using [...] City/State/ZIP Code Phon e Number [facility] - [address] [place] [address] [facility] [place] [address] [facility] 200 [facility] (ABNORMAL) CBC with Differential, Blood (08/03/2020 9:39 AM CDT) [facility] Method Time Signature Hemoglobin 9.4 (L) [...] AM 08/04/19 9:53 Venous) CDT AM CDT Kimberly Rios APRN C.N.P., M.S. LAB BLOOD ADD-ON Performing Organization Address City/State/ZIP Code Phon e Number [facility] - [address] [place], [place] [address] [facility] [place] [address] [facility] [address] documented in this encounter Visit Diagnoses Diagnosis Malignant Neoplasm Of Pancreas Adenocarc inoma (HCC) - Primary documented in this encounter
--- OUTSIDE RECORDS SUMMARY | 2021-11-15 12:25 | XMS_ITS | Encounter Summary ---
:1940 Author Organization [facility] Address [address] [place] [address] Care Team Providers Name Role Phone Unavailable Primary Care Provider Unavailable Reason for Referral Outpatient (Routine) - Closed Specialty Diagnoses / Procedures Referred By Contact Refer red To Contact Diagnoses Malignant Neoplasm Of Pancreas Adenocarcinoma (HCC) Nova Vivar M.Laure.B.S. [facility] Procedures ONC Pump Disconnect [address] [place] [address] Referral ID Status Reason Start Date Expiration Date Visits Requ ested Visits Authorized [id number] Closed 08/06/2020 08/06/2021 1 1 utpatient (Routine) - Closed Specialty Diagnoses / Procedures Referred By Contact Refer red To Contact Diagnoses Malignant Neoplasm Of Pancreas Adenocarcinoma (HCC) Nova Vivar M.B.B.S. [facility] Procedures ONC Pump Disconnect [address] [place] [address] Referral ID Status Reason Start Date Expiration Date Visits Requ ested Visits Authorized [id number] Closed 08/04/2020 08/04/2021 1 1 Reason for Visit Episode Based Medications (Routine) - Authorized Specialty Diagnoses / Procedures Referred By Contact Refer red To Contact Diagnoses Malignant Neoplasm Of Pancreas Adenocarcinoma (HCC) Neutropenia Chemotherapy Induced (HCC) Kimberly Rios, Rst Onc Coy HIGH C.N.P., M.S. [address] [place] [phone] Referral ID Status Reason Start Date Expiration Date Visits V isits Requested Authorized [id number] Authorized 06/03/2020 06/03/2021 99 99 Encounter Details Date Type Department Care Team Description 08/04/2020 Infusion Department of Oncology Kimberly Rios Ma lignant Neoplasm Of in [place], L, PARBOILER, TraceNAbdirashid., Pancreas A denocarcinoma [facility] (HCC) (Primary Dx) [address] [facility] [address] [place] [phone] Social History Tobacco Use Types Packs/Day [...] encounter Miscellaneous Notes Addendum Note - Dawn Santiago, R.N. - 08/04/2020 10:00 AM CDT Addended [...] hours continuous infusion via CADD pump # [id number] fosaprepitant 150 mg in NaCl 0.9% New 08/04/2020 11:22 AM CDT 150 mg 510 mL/hr IVPB (EMEND) 150 mg, intravenous, at 510 mL/hr, Administer over 30 Minutes, Once, On Mon08/04/20 at 1045, For 1 dose, Incompatible with solutions containing divalent cations (calcium, magnesium) including lactated Ringer's solution. irinotecan 220 mg in D5W 559 mL New Bag 08/04/2020 1:58 PM CDT 220 mg 373 [...] oxaliplatin 100 mg in D5W 295 mL Bag 08/04/2020 11:59 AM C DT 100 [...]
--- OUTSIDE RECORDS SUMMARY | 2021-11-15 12:25 | XMS_ITS | Encounter Summary ---
:1940 Author Organization [facility] Address [address] [place] [address] Care Team Providers Name Role Phone Unavailable Primary Care Provider Unavailable Reason for Visit Episode Based Medications (Routine) - Authorized Specialty Diagnoses / Procedures Referred By Contact Refer red To Contact Diagnoses Malignant Neoplasm Of Pancreas Adenocarcinoma (HCC) Neutropenia Chemotherapy Induced (HCC) Kimberly Rios, Rsmarleen Onc Coy HIGH C.N.P., M.S. [address] [facility] [address] [place] [phone] Referral ID Status Reason Start Date Expiration Date Visits V isits Requested Authorized [id number] Authorized 06/03/2020 06/03/2021 99 99 Encounter Details Date Type Department Care Team Description 08/03/2020 Office Visit Department of Nova Vivar, Secondary Ramya gnant Neoplasm Lymph Node (HCC) (Primary Dx); Oncology in M.B.B.S. Malignant Neoplasm Of Pancreas Adenocarc inoma (HCC); [place], [place] [address] [facility] Steatorrhea (HCC) [address] [place] [phone] Social History Tobacco Use Types Packs/Day Years [...] PROVIDER Kimberly Rios APRN, C.N.P., M.S. [address] [place] [phone] LOCAL ONCOLOGIST No care human resources team member to display PRIMARY [place] ONCOLOGIST Nova Vivar M.B.B.S. Kimberly Rios APRN, [...] periaortic, and mesenteric lymph nodes was reported ([facility] review). 3.) 05/25/2020 CA [id number] [...] of care as described above. This include swhr-fl-dpxd and non peps-ce-uwaa time. documented in this encounter Plan of Treatment Not on filedocumented as of this encounter Visit Diagnoses Diagnosis Secondary Malignant Neoplasm Lymph Node (HCC) - Primary Malignant Neoplasm Of Pancreas Adenocarc inoma (HCC) Steatorrhea documented in this encounter
--- OUTSIDE RECORDS SUMMARY | 2021-11-15 12:25 | XMS_ITS | Encounter Summary ---
:1940 Author Organization [facility] Address [address] [place] [address] Care Team Providers Name Role Phone Unavailable Primary Care Provider Unavailable Reason for Visit Outpatient (Routine) - Closed Specialty Diagnoses / Procedures Referred By Contact Refer red To Contact Endocrinology Diagnoses Malignant Neoplasm Of Pancreas Adenocarcinoma (HCC) Hypocalcemia Hypoparathyroidism (HCC) [facility] [place], C.N.P., M.S. [address] [place] [address] Referral ID Status Reason Start Date Expiration Date Visits Requ ested Visits Authorized [id number] Closed 07/07/2020 07/07/2021 1 1 Encounter Details Date Type Department Care Team Description 07/27/2020 Comprehensive Visit Division of Vi Cid Neoplasm Of Pancreas Adenocarcinoma (HCC); Endocrinology in [place] Phillips Hypocalcemi a; [place], [place] Kasey Hypoparathyroidism (HCC) [address] [facility] [address] [place] [phone] [facility] [phone] [place] [phone] Social History Tobacco Use Types Packs/Day Years [...] 06/19/2021 organizations such as methodist groups, unions, [employer]ella [employer] or athletic groups, or school groups? How [...] CDT SUBJECTIVE REFERRAL SOURCE Kimberly Rios RN, UPSETTER HELPER, Department of Medical Oncology. REASON FOR CONSULT [...] Konrad Cid M.D. CT CT Job ID: [id number] documented in this encounter Plan of Treatment Not on filedocumented as of this encounter Results (ABNORMAL) Calcium, Total (08/04/2020 4:11 PM CDT) P athologist Signature Calcium, 8.4 (L) 8.8 - 10.2 08/04/2020 DTL Total, S mg/dL 4:48 PM CDT Specimen Anatomical Collection Method Collection Time Receive d Time (Source) Location / / Volume Laterality Blood (Blood, 08/04/2020 4:11 PM 08/05/19 21 4:20 Venous) CDT PM CDT Konrad Cid M.D. LAB BLOOD ADD-ON Performing Organization Address City/State/ZIP Code Phon e Number [facility] - [address] [place], [place] [address] [facility] [place] [address] [facility] [address] documented in this encounter Visit Diagnoses Diagnosis Malignant Neoplasm Of Pancreas Adenocarc inoma (HCC) Hypocalcemia Hypoparathyroidism (HCC) documented in this encounter
--- OUTSIDE RECORDS SUMMARY | 2021-11-15 12:25 | XMS_ITS | Encounter Summary ---
:1940 Author Organization [facility] Address [address] [place] [address] Care Team Providers Name Role Phone Unavailable Primary Care Provider Unavailable Encounter Details Date Type Department Care Team Description 07/24/2020 Lab Department of Infusion Kimberly Rios Ma lignant Neoplasm Of Pancreas Adenocarcinoma (HCC) (Primary Dx); Therapy in [facility], WOOD FINISHER APPRENTICE, C.N.P., Hy pocalcemia; [facility]. Hypoparathyroidism (HCC) [address] [facility] [address] [place] [address] [phone] Social History Tobacco Use Types Packs/Day Years [...] 07/25/19 21 8:21 Venous) CDT AM CDT Nova ZamoraBChicoS. LAB BLOOD ADD-ON Performing Organization Address City/[facility] Phon e Number [facility] - 200 [place], [place] [address] [place] [address] (ABNORMAL) Creatinine with Estimated GFR (07/24/2020 8:13 AM CDT) athologist Signature Creatinine 1.02 0.59 - 07/24/2020 DTL 1.04 mg/dL 9:03 AM CDT eGFR-Non 53 (L) >=60 07/24/2020 DT Black/ mL/min/BSA 9:03 AM CDT Czech Comment: ----ADDITIONAL INFORMATION---- Estimated GFR calculated using [...] M.S. LAB BLOOD ADD-ON Performing Organization Address City/[facility]/ZIP Code Phon e Number [facility] - 200 [place], [place] [address] [place] [address] Phosphorus Inorganic (07/24/2020 8:13 AM CDT) athologist Signature Phosphorus 3.3 2.5 - 4.5 07/24/2020 DTL (Inorganic), S mg/dL 9:03 AM CDT Specimen Anatomical Collection Method Collection Time Receive d Time (Source) Location / / Volume Laterality Blood (Blood, 07/24/2020 8:13 AM 07/25/19 21 8:21 Venous) CDT AM CDT Kimberly Rios APRN, C.N.P., M.S. LAB BLOOD ADD-ON Performing Organization Address City/[facility] Phon e Number [facility] - [address] (ABNORMAL) Calcium, Total (07/24/2020 8:13 AM CDT) athologist Signature Calcium, 7.7 (L) 8.8 - 10.2 07/24/2020 DTL Total, S mg/dL 9:03 AM CDT Specimen Anatomical Collection Method Collection Time Receive d Time (Source) Location / / Volume Laterality Blood (Blood, 07/24/2020 8:13 AM 07/25/19 8:21 Venous) CDT AM CDT Kimberly Rios APRN, C.N.P., M.S. LAB BLOOD ADD-ON Performing Organization Address City/[facility] Phon e Number [facility] - [address] Parathyroid Hormone (PTH) (07/24/2020 8:13 AM CDT) athologist Signature Parathyroid 33 15 - 65 07/24/2020 DT Hormone (PTH), S pg/mL 9:03 AM CDT Specimen Anatomical Collection Method Collection Time Receive d Time (Source) Location / / Volume Laterality Blood (Blood, 07/24/2020 8:13 AM 07/25/19 21 8:21 Venous) CDT AM CDT Kimberly Rios APRN, C.N.P., M.S. LAB BLOOD ADD-ON Performing Organization Address City/[facility] Phon e Number [facility] - [address] [place] [address] documented in this encounter Visit Diagnoses Diagnosis [...]
--- OUTSIDE RECORDS SUMMARY | 2021-11-15 12:25 | XMS_ITS | Encounter Summary ---
:1940 Author Organization [facility] Address [address] [place] [address] Care Team Providers Name Role Phone Unavailable Primary Care Provider Unavailable Reason for Visit Reason Comments Intake Assessment Encounter Details Date Type Department Care Team Description 07/17/2020 Clinical Communication Department of Nova Vivar Inta ke Assessment Oncology in [facility]B.S. [place], [place] [address] [facility] [address] [place] [address] [phone] Social History Tobacco Use Types Packs/Day Years [...]
--- OUTSIDE RECORDS SUMMARY | 2021-11-15 12:25 | XMS_ITS | Encounter Summary ---
:1940 Author Organization [facility] Address [address] [place] [address] Care Team Providers Name Role Phone Unavailable Primary Care Provider Unavailable Encounter Details Date Type Department Care Team Description 08/04/2020 Lab Department of Laboratory Konrad Cid, Malignant Neoplasm Of Medicine and PathologyKasey Pancreas Adenocarcinoma [facility] in [address] [place] [address] ([facility]) [place], [place] [address] [place] [address] [place] [address] [phone] Social History Tobacco Use Types Packs/Day Years [...]
--- OUTSIDE RECORDS SUMMARY | 2021-11-15 12:25 | XMS_ITS | Encounter Summary ---
:1940 Author Organization [facility] Address [address] [place] [address] Care Team Providers Name Role Phone Unavailable Primary Care Provider Unavailable Encounter Details Date Type Department Care Team Description 07/21/2020 Orders Only Department of Oncology in [place], [place] M, R.N. [address] [facility] [address] [place] [address] [place] [address] Social History Tobacco Use Types Packs/Day Years [...]
--- OUTSIDE RECORDS SUMMARY | 2021-11-15 12:25 | XMS_ITS | Encounter Summary ---
:1940 Author Organization [facility] Address [address] [place] [address] Care Team Providers Name Role Phone Unavailable Primary Care Provider Unavailable Reason for Referral Outpatient (Routine) - Closed Specialty Diagnoses / Procedures Referred By Contact Refer red To Contact Diagnoses Malignant Neoplasm Of Pancreas Adenocarcinoma (HCC) Nova Vivar M.Laure.B.S. [facility] Procedures ONC Pump Disconnect [address] [place] [phone] Referral ID Status Reason Start Date Expiration Date Visits Requ ested Visits Authorized [id number] Closed 07/21/2020 07/21/2021 1 1 Reason for Visit Episode Based Medications (Routine) - Authorized Specialty Diagnoses / Procedures Referred By Contact Refer red To Contact Diagnoses Malignant Neoplasm Of Pancreas Adenocarcinoma (HCC) Neutropenia Chemotherapy Induced (HCC) Kimberly Rios, Rst Onc Coy HIGH C.N.P., M.S. [address] [facility] [address] [place] [phone] Referral ID Status Reason Start Date Expiration Date Visits V isits Requested Authorized [id number] Authorized 06/03/2020 06/03/2021 99 99 Encounter Details Date Type Department Care Team Description 07/21/2020 Infusion Department of Oncology Kimberly Rios Ma lignant Neoplasm Of in Alan Obrien APRN C.N.P., Pancreas A denocarcinoma [place] M.S. (HCC) (Primary Dx) [address] [place] [address] [phone] Social History Tobacco Use Types Packs/Day Years [...] hours continuous infusion via CADD pump # [id number] fosaprepitant 150 mg in NaCl 0.9% New 07/21/2020 9:28 AM C DT 150 mg 510 mL/hr IVPB (EMEND) 150 mg, intravenous, at 510 mL/hr, Administer over 30 Minutes, Once, On Mon07/21/20 at 0845, For 1 dose, Incompatible with solutions containing divalent cations (calcium, magnesium) including lactated Ringer's solution. irinotecan 220 mg in D5W 559 mL New 07/21/2020 12:10 PM CD T 220 mg 373 mL/hr IVPB (CAMPTOSAR) 220 mg (rounded from 224.64 mg = 144 mg/m2 ? 1.56 m2 Order-specific BSA), intravenous, at 373 mL/hr, Administer over 90 Minutes, Once, On Mon07/21/20 at 1145, For 1 dose, May be given via y-site with leucovorin. Protect from light. leucovorin 600 mg in D5W 305 mL 07/21/2020 12:10 PM CD T 600 mg [...] Mon07/21/20 at 0845, For 1 dose New 07/21/2020 8:45 AM CDT 1,000 mL 1000 mL/hr ondansetron in NaCl 0.9% IVPB 16 mg 07/21/2020 9:04 AM CDT 16 mg 232 mL/hr (ZOFRAN) 16 mg, intravenous, at 232 mL/hr, Administer over 15 Minutes, Once, On Mon07/21/20 at 0845, For 1 dose oxaliplatin 100 mg in D5W 295 mL 07/21/2020 10:00 AM C DT 100 mg [...]
--- OUTSIDE RECORDS SUMMARY | 2021-11-15 12:25 | XMS_ITS | Encounter Summary ---
:1940 Author Organization [facility] Address [address] [place] [address] Care Team Providers Name Role Phone Unavailable Primary Care Provider Unavailable Encounter Details Date Type Department Care Team Description 07/23/2020 Clinical Communication Department of Oncology Jose Marquez in [place], J, D.O. [place] [address] [place] [address] Social History Tobacco Use Types Packs/Day Years [...] 07/23/2020 7:07 PM CDT As the fellow coronary clinical specialist I received a call from patient regarding [...]
--- OUTSIDE RECORDS SUMMARY | 2021-11-15 12:25 | XMS_ITS | Encounter Summary ---
:1940 Author Organization [facility] Address [address] [place] [address] Care Team Providers Name Role Phone Unavailable Primary Care Provider Unavailable Reason for Visit Reason Comments Med Refill dexAMETHasone Encounter Details Date Type Department Care Team Description 07/27/2020 Refill Department of Oncology Kimberly Rios, Med Refill in [facility] blossom HIGH C.N.P., M.S. (dexAMETHasone ) [address] [facility] [address] [place] [address] [place], [place] [phone] (Wo rk) Social History Tobacco Use Types [...]
--- OUTSIDE RECORDS SUMMARY | 2021-11-15 12:25 | XMS_ITS | Encounter Summary ---
:[address] [facility] Address [address] [place] [address] Care Team Providers Name Role Phone Unavailable Primary Care Provider Unavailable Reason for Visit Reason Comments Intake Assessment Encounter Details Date Type Department Care Team Description 07/30/2020 Clinical Communication Department of Nova Vivra Inta ke Assessment Oncology in [facility]S. [place], [place] [address] [facility] [address] [place] [address] [phone] Social History Tobacco Use Types Packs/Day Years [...]
--- OUTSIDE RECORDS SUMMARY | 2021-11-15 12:25 | XMS_ITS | Encounter Summary ---
:1940 Author Organization [facility] Address [address] [place] [address] Care Team Providers Name Role Phone Unavailable Primary Care Provider Unavailable Encounter Details Date Type Department Care Team Description 08/05/2020 Clinical Communication Division of Konrad Cid, Endocrinology in [place], [place] [address] [facility] [address] [place] [address] [phone] Social History Tobacco Use Types Packs/Day Years [...] be reached:anytime Contact patient by:phone Phone number: [phone] Thank you Shanta, Folder Seamer Automatic PLEASE REPLY TO THE SECRETARIAL POOL WHEN REPLYING TO THIS MESSAGE--p RST END KAT MED AA. Thank you! documented in this encounter Plan of Treatment Not on filedocumented as of this encounter Visit Diagnoses Not on filedocumented in this encounter
--- OUTSIDE RECORDS SUMMARY | 2021-11-15 12:25 | XMS_ITS | Encounter Summary ---
:1940 Author Organization [facility] Address [address] [place] [address] Care Team Providers Name Role Phone Unavailable Primary Care Provider Unavailable Reason for Visit Reason Comments Nurse Visit Ambulatory pump troubleshoot ing Encounter Details Date Type Department Care Team Description 08/06/2020 Documentation Department of Oncology Sima Alexis Visit in [place], A, R.N., O.C.N. (Ambulatory pump [place] [address] [address] [facility] troubleshooting) [address] [place] [address] [phone] Social History Tobacco Use Types Packs/Day Years [...]
--- OUTSIDE RECORDS SUMMARY | 2021-11-15 12:25 | XMS_ITS | Encounter Summary ---
:1940 Author Organization [facility] Address [address] [place] [address] Care Team Providers Name Role Phone Unavailable Primary Care Provider Unavailable Reason for Visit Episode Based Medications (Routine) - Authorized Specialty Diagnoses / Procedures Referred By Contact Refer red To Contact Diagnoses Malignant Neoplasm Of Pancreas Adenocarcinoma (HCC) Neutropenia Chemotherapy Induced (HCC) Kimberly Rios, Rst Onc Coy HIGH C.N.P., M.S. [address] [place] [address] [place] [phone] Referral ID Status Reason Start Date Expiration Date Visits V isits Requested Authorized [id number] Authorized 06/03/2020 06/03/2021 99 99 Encounter Details Date Type Department Care Team Description 07/20/2020 Lab Department of Infusion Kimberly Rios, Malignant Neoplasm Of Therapy in [facility] LENNOX C.N. P., M.S. Pancreas Adenocarcinoma [place] [address] [place] [address] (HCC) (Primary Dx) [address] [place] [phone] Social History Tobacco Use Types Packs/Day Years [...] encounter Results Magnesium (07/20/2020 1:21 PM CDT) P athologist Signature Magnesium, S 2.2 1.7 - 2.3 07/21/2020 DTL mg/dL 11:33 AM CDT Specimen Anatomical Collection Method Collection Time Receive d Time (Source) Location / / Volume Laterality Blood (Blood, 07/20/2020 1:21 PM 07/22/19 Venous) CDT 11:03 AM CDT Nova ZamoraBChicoS. LAB BLOOD ADD-ON Performing Organization Address City/[facility] Phon e Number [facility] - [address] Bilirubin, Direct (07/20/2020 1:21 PM CDT) athologist Signature Bilirubin, <0.2 0.0 - 0.3 07/20/2020 DTL Direct, S mg/dL 2:21 PM CDT Specimen Anatomical Collection Method Collection Time Receive d Time (Source) Location / / Volume Laterality Blood (Blood, 07/20/2020 1:21 PM 07/21/19 1:46 Venous) CDT PM CDT Kimberly Rios APRN, C.N.P., M.S. LAB BLOOD ADD-ON Performing Organization Address City/[facility] Phon e Number [facility] - [address] (ABNORMAL) Comprehensive Metabolic Panel (07/20/2020 1:21 [...] DTL Nitrogen), S mg/dL 2:21 PM CDT Creatinine 1.01 0.59 - 07/20/2020 DTL 1.04 mg/dL 2:21 PM CDT eGFR-Non 53 (L) >=60 07/20/2020 DTL Black/ mL/min/BSA 2:21 PM CDT Welsh Comment: ----ADDITIONAL INFORMATION---- Estimated GFR calculated using [...] 1:46 Venous) CDT PM CDT Kimberly Rios APRN, C.N.P., M.S. LAB BLOOD ADD-ON Performing Organization Address City/State/ZIP Code Phon e Number [facility] - [address] [place], [place] [address] [facility] [place] [address] Laboratories-[facility] [address] [facility] (ABNORMAL) CBC with Differential, Blood (07/20/2020 1:21 PM CDT) [facility] Method Time Signature Hemoglobin 10.0 (L) [...] 1:46 Venous) CDT PM CDT Kimberly Rios APRN, C.N.P., M.S. LAB BLOOD ADD-ON Performing Organization Address City/State/ZIP Code Phon e Number [facility] - [address] [place], [place] [address] [facility] [place] [address] Laboratories-[facility] [address] [...] intra-catheter, As needed, line care, Starting on Mon07/20/20 at 1325, When IVAD Accessed and in [...]
--- OUTSIDE RECORDS SUMMARY | 2021-11-15 12:25 | XMS_ITS | Encounter Summary ---
:1940 Author Organization [facility] Address [address] [place] [address] Care Team Providers Name Role Phone Unavailable Primary Care Provider Unavailable Encounter Details Date Type Department Care Team Description 07/21/2020 Orders Only Department of Blue [place] plasm Of Oncology in Shilo Cespedes Pancreas Adenocarcinoma [place], [place] 200 [address] [facility] (HCC) (Primary Dx) [address] [place] [phone] Social History Tobacco Use Types Packs/Day Years [...] filedocumented as of this encounter Results Magnesium (07/24/2020 8:13 AM CDT) P athologist Signature Magnesium, S 1.9 1.7 - 2.3 07/24/2020 DTL mg/dL 9:03 AM CDT Specimen Anatomical Collection Method Collection Time Receive d Time (Source) Location / / Volume Laterality Blood (Blood, 07/24/2020 8:13 AM 07/25/19 8:21 Venous) CDT AM CDT Nova Fontaine.B.S. LAB BLOOD ADD-ON Performing Organization Address City/State/ZIP Code Phon e Number [facility] - [address] [place], [place] [address] [facility] [place] [address] Laboratories-[facility] [address] documented in this encounter Visit Diagnoses Diagnosis Malignant Neoplasm Of Pancreas Adenocarc inoma (HCC) - Primary documented in this encounter
--- OUTSIDE RECORDS SUMMARY | 2021-11-15 12:26 | XMS_ITS | Encounter Summary ---
:1940 Author Organization [facility] Address [address] [place] [address] Care Team Providers Name Role Phone Unavailable Primary Care Provider Unavailable Encounter Details Date Type Department Care Team Description 06/10/2020 Clinical Communication Department of Oncology Tiera Augustine in [place] Obrien [place] [address] [facility] [address] [place] [phone] Social History Tobacco Use Types Packs/Day Years [...]
--- OUTSIDE RECORDS SUMMARY | 2021-11-15 12:26 | XMS_ITS | Encounter Summary ---
:1940 Author Organization [facility] Address [address] [place] [address] Care Team Providers Name Role Phone Unavailable Primary Care Provider Unavailable Encounter Details Date Type Department Care Team Description 06/17/2020 Orders Only Department of Oncology in James Napoles, [place], [place] R.N., O.C.N. [address] [facility] [address] [place] [address] [place], [place] [phone] Social History Tobacco Use Types Packs/Day Years [...]
--- OUTSIDE RECORDS SUMMARY | 2021-11-15 12:26 | XMS_ITS | Encounter Summary ---
:1940 Author Organization [facility] Address [address] [place] [address] Care Team Providers Name Role Phone Unavailable Primary Care Provider Unavailable Encounter Details Date Type Department Care Team Description 06/22/2020 Orders Only Department of Gabriel, Kimberly Malignant N eoplasm Of Oncology in L, FORGE SHOP SUPERVISOR, C.N.P., Pancreas Ad enocarcinoma [facility].S. ([facility]) (Primary Dx) [address] [facility] [address] [place] [phone] Social History Tobacco Use Types Packs/Day Years [...]
--- OUTSIDE RECORDS SUMMARY | 2021-11-15 12:26 | XMS_ITS | Encounter Summary ---
:1940 Author Organization [facility] Address [address] [place] [address] Care Team Providers Name Role Phone Unavailable Primary Care Provider Unavailable Reason for Visit Outpatient (Routine) - Closed Specialty Diagnoses / Procedures Referred By Contact Refer red To Contact Diagnoses Malignant Neoplasm Of Pancreas Adenocarcinoma (HCC) Kimberly Rios APRN, [facility] Procedures ONC Pump Disconnect C.N.P., M.S. 200 [place] [address] Referral ID Status Reason Start Date Expiration Date Visits Requ ested Visits Authorized [id number] Closed 06/23/2020 06/23/2021 1 1 Encounter Details Date Type Department Care Team Description 06/25/2020 Infusion Department of Infusion Kimberly Rios Ma lignant Neoplasm Of Therapy in [facility], LENNOX, C.N.P., Sigala creas Adenocarcinoma [facility]. (HCC) (Primary Dx) [address] [place] [phone] Social History Tobacco Use [...] 06/19/2021 organizations such as amish groups, unions, fraProFounder or athletic groups, or school groups? How [...]
--- OUTSIDE RECORDS SUMMARY | 2021-11-15 12:26 | XMS_ITS | Encounter Summary ---
:1940 Author Organization [facility] Address [address] [place] [address] Care Team Providers Name Role Phone Unavailable Primary Care Provider Unavailable Encounter Details Date Type Department Care Team Description 06/18/2020 Orders Only [facility] Angel Earl Pcp [address] [place]T [phone] Social History Tobacco Use Types Packs/Day Years [...]
--- OUTSIDE RECORDS SUMMARY | 2021-11-15 12:26 | XMS_ITS | Encounter Summary ---
:1940 Author Organization [facility] Address [address] [place] [address] Care Team Providers Name Role Phone Unavailable Primary Care Provider Unavailable Reason for Visit Reason Comments 06/08 NT Encounter Details Date Type Department Care Team Description 06/03/2020 Clinical Communication Department of Oncology Migdalia Jacobson 06/08 NT in [place], [place] (Work) [address] [place] [address] Social History Tobacco Use Types Packs/Day Years [...]
--- OUTSIDE RECORDS SUMMARY | 2021-11-15 12:26 | XMS_ITS | Encounter Summary ---
:1940 Author Organization [facility] Address [address] [place] [address] Care Team Providers Name Role Phone Unavailable Primary Care Provider Unavailable Reason for Visit Reason Comments questions about medications Encounter Details Date Type Department Care Team Description 06/03/2020 Clinical Communication Department of Jose Carlos Hudson about Oncology in S, R.N., medications [facility] [address] [facility] [address] [place] [phone] Social History Tobacco Use Types Packs/Day Years [...] following references were used: nursing clinical judgement ICAL TREATMENT PLANT TECHNICIAN Telephone Encounter - Traci Rodriguez - 06/03/2020 2:29 PM CST Do we have a valid auth to speak with caller? yes Reason for call: Patient said that she talked to Kimberly about having nausea and Kimberly told her that she would write a Rx. When her went to the pharmacy to apple picking supervisor medication she said that there are 5 different medications. She would like a call back to discuss what medications are for what. Please call patient back to discuss. Thank you, Traci CHOPRA ONC [facility] Aa POD 1 ICAL TREATMENT PLANT TECHNICIAN documented in this encounter Plan of Treatment Not on filedocumented as of this encounter Visit Diagnoses Not on filedocumented in this encounter
--- OUTSIDE RECORDS SUMMARY | 2021-11-15 12:26 | XMS_ITS | Encounter Summary ---
:1940 Author Organization [facility] Address [address] [place] [address] Care Team Providers Name Role Phone Unavailable Primary Care Provider Unavailable Reason for Visit Reason Comments Pump disconnect Encounter Details Date Type Department Care Team Description 06/08/2020 Clinical Communication Department of No Contact, Pump disconnect Infusion Therapy in [place], [place] [address] [place] [address] Social History Tobacco Use Types [...] CDT Reason for Communication: Shanna calling from [facility], requesting assistance with scheduling patient for a ONC Pump Disconnect in [place]. Scheduling not available at time of call. [...] through Skype if necessary (full name- Shanna Maddie) Name of Medication (if relevant): documented in this encounter Plan of Treatment Not on filedocumented as of this encounter Visit Diagnoses Not on filedocumented in this encounter
--- OUTSIDE RECORDS SUMMARY | 2021-11-15 12:26 | XMS_ITS | Encounter Summary ---
:1940 Author Organization [facility] Address [address] [place] [address] Care Team Providers Name Role Phone Unavailable Primary Care Provider Unavailable Reason for Visit Reason Comments Sx - vomiting Encounter Details Date Type Department Care Team Description 06/19/2020 Clinical Communication Department of Oncology Jose Carlos Hudson, Sx - vomiting in [facility].N., O.C.N. [place] [address] [address] [facility] [address] [place] [address] [phone] Social History Tobacco Use Types Packs/Day Years [...] evaluated by the local emergency room. Mrs. الرعاقي agreed to this plan. She has an [...] to discuss. Thank you, Traci RST ONC [facility] MED Aa POD 1 documented in this encounter Plan of Treatment Not on filedocumented as of this encounter Visit Diagnoses Not on filedocumented in this encounter
--- OUTSIDE RECORDS SUMMARY | 2021-11-15 12:26 | XMS_ITS | Encounter Summary ---
:1940 Author Organization [facility] Address [address] [place] [address] Care Team Providers Name Role Phone Unavailable Primary Care Provider Unavailable Reason for Referral Medication Prior Authorization (Routine) - Authorized Specialty Diagnoses / Procedures Referred By Contact Refer red To Contact Kimberly Rios APRN, C.N.P., M.S. [address] [place] [phone] Referral ID Status Reason Start Date Expiration Date Visits V isits Requested Authorized [id number] Authorized 06/08/2020 09/15/2020 1 1 Reason for Visit Reason Comments Med Refill Encounter Details Date Type Department Care Team Description 06/08/2020 Refill Department of Oncology in Kimberly Rios APRN, Med Refill [place], [place] CSusanna, M.S. [address] [place] [address] [place] [phone] [place] [address] [phone] (Wo rk) Social History Tobacco Use Types [...] Do you belong to any clubs or [place] 06/19/2021 organizations such as scientology groups, unions, fraCimagine Media or athletic groups, or school groups? How [...]
--- OUTSIDE RECORDS SUMMARY | 2021-11-15 12:26 | XMS_ITS | Encounter Summary ---
:[address] [facility] Address [address] [place] [address] Care Team Providers Name Role Phone Unavailable Primary Care Provider Unavailable Encounter Details Date Type Department Care Team Description 06/15/2020 Orders Only [facility] - Kimberly Ruiz, [address] [facility] [address] TELESALES ADVISOR, C.[place] [address] [address] [facility] [phone] [place] [address] (Wo rk) Social History Tobacco [...]
--- OUTSIDE RECORDS SUMMARY | 2021-11-15 12:26 | XMS_ITS | Encounter Summary ---
:1940 Author Organization [facility] Address [address] [place] [address] Care Team Providers Name Role Phone Unavailable Primary Care Provider Unavailable Reason for Visit Reason Comments Intake Assessment Encounter Details Date Type Department Care Team Description 06/17/2020 Clinical Communication Department of Maren Rios [facility] Oncology in [facility] C.N.P., M.S. [place] [address] [facility] [address] [place] [phone] Social History Tobacco Use Types Packs/Day Years [...]
--- OUTSIDE RECORDS SUMMARY | 2021-11-15 12:26 | XMS_ITS | Encounter Summary ---
:1940 Author Organization [facility] Address [address] [place] [address] Care Team Providers Name Role Phone Unavailable Primary Care Provider Unavailable Reason for Visit Episode Based Medications (Routine) - Authorized Specialty Diagnoses / Procedures Referred By Contact Refer red To Contact Diagnoses Malignant Neoplasm Of Pancreas Adenocarcinoma (HCC) Neutropenia Chemotherapy Induced (HCC) Kimberly Rios Rsmarleen Onc Coy HIGH C.N.PChico, M.S. [address] [facility] [address] [place] [phone] Referral ID Status Reason Start Date Expiration Date Visits V isits Requested Authorized [id number] Authorized 06/03/2020 06/03/2021 99 99 Encounter Details Date Type Department Care Team Description 06/23/2020 Infusion Department of Oncology Kimberly Rios Ma lignant Neoplasm Of in [place], LENNOX Phillips C.N.PChico, Pancreas A denocarcinoma [facility].. (HCC) (Primary Dx) [address] [place] [address] [place] [phone] Social History Tobacco Use Types Packs/Day Years [...] dexamethasone in NaCl 0.9% IVPB 12 New 06/23/2020 8:17 AM CDT 12 mg 200 [...] hours continuous infusion via CADD pump # [id number] fosaprepitant 150 mg in NaCl 0.9% 06/23/2020 8:52 AM C DT 150 mg 510 mL/hr IVPB (EMEND) 150 mg, intravenous, at 510 mL/hr, Administer over 30 Minutes, Once, On Mon06/23/20 at 0815, For 1 dose, Incompatible with solutions containing divalent cations (calcium, magnesium) including lactated Ringer's solution. irinotecan 220 mg in D5W 559 mL 06/23/2020 11:35 AM CD T 220 mg 373 mL/hr IVPB (CAMPTOSAR) 220 mg (rounded from 224.64 mg = 144 mg/m2 ? 1.56 m2 Order-specific BSA), intravenous, at 373 mL/hr, Administer over 90 Minutes, Once, On Mon06/23/20 at 1115, For 1 dose, May be given via y-site with leucovorin. Protect from light. leucovorin 600 mg in D5W 305 mL Bag 06/23/2020 11:35 AM CD T 600 [...]
--- OUTSIDE RECORDS SUMMARY | 2021-11-15 12:26 | XMS_ITS | Encounter Summary ---
:1940 Author Organization [facility] Address [address] [place] [address] Care Team Providers Name Role Phone Unavailable Primary Care Provider Unavailable Reason for Visit Episode Based Medications (Routine) - Authorized Specialty Diagnoses / Procedures Referred By Contact Refer red To Contact Diagnoses Malignant Neoplasm Of Pancreas Adenocarcinoma (HCC) Neutropenia Chemotherapy Induced (HCC) Kimberly Rios Rsmarleen Onc Coy HIGH C.N.PChico, M.S. [address] [facility] [address] [place] [phone] Referral ID Status Reason Start Date Expiration Date Visits V isits Requested Authorized [id number] Authorized 06/03/2020 06/03/2021 99 99 Encounter Details Date Type Department Care Team Description 06/08/2020 Infusion Department of Oncology Kimberly Rios Ma lignant Neoplasm Of in [place], [place], LENNOX C.N.PChico, Pancreas A denocarcinoma [facility] (HCC) (Primary Dx) [address] [place] [address] [place] [phone] Social History Tobacco Use Types Packs/Day Years [...] Body Mass Index 19.22 05/25/2020 12:52 PM DIRECTOR OF ASSESSING documented in this encounter Plan of Treatment [...] 0.25 mg 0.25 mg, intravenous, Once, On 06/08/20 at 1315, For 1 dose, Give prior [...] 46 hours continuous infusion via CADD pump #[id number] fosaprepitant 150 mg in NaCl 0.9% New [...]
--- OUTSIDE RECORDS SUMMARY | 2021-11-15 12:26 | XMS_ITS | Encounter Summary ---
:1940 Author Organization [facility] Address [address] [place] [address] Care Team Providers Name Role Phone Unavailable Primary Care Provider Unavailable Reason for Visit Episode Based Medications (Routine) - Authorized Specialty Diagnoses / Procedures Referred By Contact Refer red To Contact Diagnoses Malignant Neoplasm Of Pancreas Adenocarcinoma (HCC) Neutropenia Chemotherapy Induced (HCC) Kimberly Rios, Rsmarleen Onc Coy HIGH C.N.P., M.S. [address] [place] [address] [place] [phone] Referral ID Status Reason Start Date Expiration Date Visits V isits Requested Authorized [id number] Authorized 06/03/2020 06/03/2021 99 99 Encounter Details Date Type Department Care Team Description 06/22/2020 Lab Department of Laboratory Kimberly Rios, Malignant Neoplasm Of Medicine and Pathology, LENNOX C. N.P., M.S. Pancreas Adenocarcinoma [place], in [address] [place] [address] (HCC) (Primary Dx) [place], [place] [address] [place] [phone] [place] [phone] Social History Tobacco Use Types Packs/Day [...] Results Bilirubin, Direct (06/22/2020 9:53 AM CDT) P [...] Organization Address City/State/ZIP Code Phon e Number [facility] - 200 [place], [place] [address] [facility] [place] [address] Laboratories-[facility] [address] (ABNORMAL) Comprehensive Metabolic Panel (06/22/2020 9:53 [...] DTL Nitrogen), S mg/dL 10:34 AM CDT Creatinine 0.95 0.59 - 06/22/2020 DTL 1.04 mg/dL 10:34 AM CDT eGFR-Non 58 (L) >=60 06/22/2020 DTL Black/ mL/min/BSA 10:34 AM CDT Citizen Of [place] Comment: ----ADDITIONAL INFORMATION---- Estimated GFR calculated using [...] Organization Address City/State/ZIP Code Phon e Number [facility] - [address] [place] [address] [place] [place] [address] Laboratories-[facility] 200 [facility] (ABNORMAL) CBC with Differential, Blood (06/22/2020 9:53 AM CDT) [facility] Method Time Signature Hemoglobin 9.8 (L) [...] 06/23/19 21 Venous) CDT 10:01 AM CDT Trace Rudolph APRNN.P., M.S. LAB BLOOD ADD-ON Performing Organization Address City/State/ZIP Code Phon e Number [facility] - [address] [place], [place] [address] [place] [place] [address] Laboratories-[facility] [address] documented in [...] intra-catheter, As needed, line care, Starting on 06/22/20 at 0942, When no infusion to maintain [...]
--- OUTSIDE RECORDS SUMMARY | 2021-11-15 12:26 | XMS_ITS | Encounter Summary ---
:1940 Author Organization [facility] Address [address] [place] [address] Care Team Providers Name Role Phone Unavailable Primary Care Provider Unavailable Encounter Details Date Type Department Care Team Description 06/03/2020 Hospital Encounter Department of [place], Lesion P ancreas (HCC); Laboratory Medicine Kimberly Phillips APRN, Malign ant Neoplasm Of Pancreas Adenocarcinoma (HCC); and Pathology, C.N.P., M.S. Secondary Malignant Neoplasm Lymph Node (HCC) [address] [phone] [place] [address] [place], [place] (Work) [address] [phone] Social History Tobacco Use Types Packs/Day Years [...] Sig Dispensed Refills Start Date End Date [id number]-man Take by mouth. 0 05/20 kateryna (Citracal-D3 [...]
--- OUTSIDE RECORDS SUMMARY | 2021-11-15 12:26 | XMS_ITS | Encounter Summary ---
:1940 Author Organization [facility] Address [address] [place] [address] Care Team Providers Name Role Phone Unavailable Primary Care Provider Unavailable Reason for Referral Outpatient (Routine) - Closed Specialty Diagnoses / Procedures Referred By Contact Refer red To Contact Diagnoses Malignant Neoplasm Of Pancreas Adenocarcinoma (HCC) Kimberly Rios APRN, [facility] Procedures ONC Pump Disconnect C.N.P., M.S. [address] [place] [address] [phone] Referral ID Status Reason Start Date Expiration Date Visits Requ ested Visits Authorized [id number] Closed 07/07/2020 07/07/2021 1 1 Reason for Visit Episode Based Medications (Routine) - Authorized Specialty Diagnoses / Procedures Referred By Contact Refer red To Contact Diagnoses Malignant Neoplasm Of Pancreas Adenocarcinoma (HCC) Neutropenia Chemotherapy Induced (HCC) Kimberly Rios, Rst Onc Rogo LENNOX C.N.P., M.S. [address] [facility] 200 [place] [phone] Referral ID Status Reason Start Date Expiration Date Visits V isits Requested Authorized [id number] Authorized 06/03/2020 06/03/2021 99 99 Encounter Details Date Type Department Care Team Description 07/07/2020 Infusion Department of Oncology Kimberly Rios Ma lignant Neoplasm Of in [place], Alan, LENNOX C.N.P., Pancreas A denocarcinoma [facility] (Primary Dx) [address] [place] [phone] Social History Tobacco Use Types Packs/Day Years [...] 46 hours continuous infusion via CADD pump #[id number] fosaprepitant 150 mg in NaCl 0.9% New [...] irinotecan. NaCl 0.9 % bolus 1,000 mL 07/07/2020 10:46 AM CDT 1,000 mL 1000 mL/hr 1,000 mL, intravenous, at 1,000 mL/hr, Administer over 1 Hours, Once, On Mon07/07/20 at 1045, For 1 dose ondansetron in NaCl 0.9% IVPB 16 mg 07/07/2020 11:03 A M CDT 16 mg 232 mL/hr (ZOFRAN) 16 mg, intravenous, at 232 mL/hr, Administer over 15 Minutes, Once, On Mon07/07/20 at 1045, For 1 dose oxaliplatin 100 mg in D5W 295 mL 07/07/2020 11:58 AM C DT 100 mg [...]
--- OUTSIDE RECORDS SUMMARY | 2021-11-15 12:26 | XMS_ITS | Encounter Summary ---
:1940 Author Organization [facility] Address [address] [place] [address] Care Team Providers Name Role Phone Unavailable Primary Care Provider Unavailable Encounter Details Date Type Department Care Team Description 06/04/2020 Education Department of Patient Kimberly Rios APRN, C.N.P., M.S. [address] [place] [address] Malignant Neoplasm Of Education in Krissy Johnson M.Ed. Pancreas Adenocarcinoma [place], [place] (HCC) [address] [place] [address] Social History Tobacco Use Types Packs/Day Years [...]
--- OUTSIDE RECORDS SUMMARY | 2021-11-15 12:26 | XMS_ITS | Encounter Summary ---
:1940 Author Organization [facility] Address [address] [place] [address] Care Team Providers Name Role Phone Unavailable Primary Care Provider Unavailable Reason for Visit Reason Comments Rx Reimbursement EMLA cream Encounter Details Date Type Department Care Team Description 06/16/2020 Clinical Communication Department of Jose Carlos Hudson R [facility] in S, R.N., (EMLA cream) [facility] [address] [facility] [address] [place] [phone] [place] [address] Social History Tobacco Use Types Packs/Day Years [...] this. Thank you, Renetta RST ONC ROGO FUND CONTROLLER POD 1 documented in this encounter Plan of Treatment Not on filedocumented as of this encounter Visit Diagnoses Not on filedocumented in this encounter
--- OUTSIDE RECORDS SUMMARY | 2021-11-15 12:26 | XMS_ITS | Encounter Summary ---
:1940 Author Organization [facility] Address [address] [place] [address] Care Team Providers Name Role Phone Unavailable Primary Care Provider Unavailable Encounter Details Date Type Department Care Team Description 06/10/2020 Orders Only Department of Oncology in Tiera Augustine M.D. [place], [place] [address] [facility] [address] [place] [phone] [phone] (Wo rk) Social History Tobacco Use Types [...]
--- OUTSIDE RECORDS SUMMARY | 2021-11-15 12:26 | XMS_ITS | Encounter Summary ---
:1940 Author Organization [facility] Address [address] [place] [address] Care Team Providers Name Role Phone Unavailable Primary Care Provider Unavailable Encounter Details Date Type Department Care Team Description 06/18/2020 Orders Only Pharmacy Prior Auth Nataly Solis [phone] Social History Tobacco Use Types Packs/Day Years [...]
--- OUTSIDE RECORDS SUMMARY | 2021-11-15 12:26 | XMS_ITS | Encounter Summary ---
:1940 Author Organization [facility] Address [address] [place] [address] Care Team Providers Name Role Phone Unavailable Primary Care Provider Unavailable Reason for Visit Reason Comments Add Blood Test Encounter Details Date Type Department Care Team Description 06/17/2020 Clinical Communication Department of Meryl Morales Blood Test Oncology in Shilo Cespedes [place], [facility] [address] [place], [place] [address] [facility] [phone] [place] [phone] Social History Tobacco Use Types Packs/Day Years [...] AM CDT Received a return call for traci RN said yes, those need to be includes [...]
--- OUTSIDE RECORDS SUMMARY | 2021-11-15 12:26 | XMS_ITS | Encounter Summary ---
:1940 Author Organization [facility] Address [address] [place] [address] Care Team Providers Name Role Phone Unavailable Primary Care Provider Unavailable Reason for Visit Outpatient (Routine) - Closed Specialty Diagnoses / Procedures Referred By Contact Refer red To Contact Diagnoses Malignant Neoplasm Of Pancreas Adenocarcinoma (HCC) Kimberly Rios APRN, [facility] Region Procedures ONC Pump Disconnect C.N.P., M.S. 200 [place] [address] Referral ID Status Reason Start Date Expiration Date Visits Requ ested Visits Authorized [id number] Closed 06/08/2020 06/08/2021 1 1 Encounter Details Date Type Department Care Team Description 06/10/2020 Infusion Department of Infusion Kimberly Rios Ma lignant Neoplasm Of Therapy in [facility], LENNOX, C.N.P., Sigala creas Adenocarcinoma [facility]. (HCC) (Primary Dx) [address] [place] [phone] Social History Tobacco Use [...] 06/19/2021 organizations such as confucianism groups, unions, fraScout or athletic groups, or school groups? How [...]
--- OUTSIDE RECORDS SUMMARY | 2021-11-15 12:26 | XMS_ITS | Encounter Summary ---
:1940 Author Organization [facility] Address [address] [place] [address] Care Team Providers Name Role Phone Unavailable Primary Care Provider Unavailable Reason for Referral Outpatient (Routine) - Closed Specialty Diagnoses / Procedures Referred By Contact Refer red To Contact Diagnoses Malignant Neoplasm Of Pancreas Adenocarcinoma (HCC) Kimberly Rios APRN, [facility] Procedures ONC Pump Disconnect C.N.P., M.S. [address] [place] [phone] Referral ID Status Reason Start Date Expiration Date Visits Requ ested Visits Authorized [id number] Closed 06/08/2020 06/08/2021 1 1 Specialty Diagnoses / Procedures Referred By Contact Refer red To Contact RST [facility] [address] [place] [phone] Referral ID Status Reason Start Date Expiration Date Visits Requ ested Visits Authorized R DIPPER Reason for Visit Episode Based Medications (Routine) - Authorized Specialty Diagnoses / Procedures Referred By Contact Refer red To Contact Diagnoses Malignant Neoplasm Of Pancreas Adenocarcinoma (HCC) Neutropenia Chemotherapy Induced (HCC) Kimberly Rios, t Onc Rogo LENNOX C.N.P., M.S. [address] [place] [address] 200 [place] [phone] Referral ID Status Reason Start Date Expiration Date Visits V jay Requested Authorized [id number] Authorized 06/03/2020 06/03/2021 99 99 Encounter Details Date Type Department Care Team Description 06/08/2020 Education [facility], C.NAbdirashid., M.S. [address] [place] [phone] Osteoarthritis (Primary Dx); Oncology in LyndaMariana islas R.N. [address] [place] [address] Malignant Neoplasm Of Pancreas Adenocarc inoma (HCC) [place], [place] [address] [place] [phone] Social History Tobacco Use Types Packs/Day Years [...]
--- OUTSIDE RECORDS SUMMARY | 2021-11-15 12:26 | XMS_ITS | Encounter Summary ---
:1940 Author Organization [facility] Address [address] [place] [address] Care Team Providers Name Role Phone Unavailable Primary Care Provider Unavailable Reason for Referral Outpatient (Routine) - Closed Specialty Diagnoses / Procedures Referred By Contact Refer red To Contact Diagnoses Malignant Neoplasm Of Pancreas Adenocarcinoma (HCC) Hypocalcemia Hypoparathyroidism (HCC) [facility] Procedures BMD Bone Density Spine Hips C.N.P., M.S. [address] [place] [phone] Referral ID Status Reason Start Date Expiration Date Visits Requ ested Visits Authorized [id number] Closed 07/07/2020 07/07/2021 1 1 utpatient (Routine) - Closed Specialty Diagnoses / Procedures Referred By Contact Refer red To Contact Endocrinology Diagnoses Malignant Neoplasm Of Pancreas Adenocarcinoma (HCC) Hypocalcemia Hypoparathyroidism (HCC) Kimberly Rios [facility] Harleen HIGH.N.P., M.S. 200 [place] [address] Referral ID Status Reason Start Date Expiration Date Visits Requ ested Visits Authorized [id number] Closed 07/07/2020 07/07/2021 1 1 Reason for Visit Episode Based Medications (Routine) - Authorized Specialty Diagnoses / Procedures Referred By Contact Refer red To Contact Diagnoses Malignant Neoplasm Of Pancreas Adenocarcinoma (HCC) Neutropenia Chemotherapy Induced (HCC) Kimberly Rios Rst Onc Coy HIGH C.N.P., M.S. [address] [place] [address] [place] [phone] Referral ID Status Reason Start Date Expiration Date Visits V isits Requested Authorized [id number] Authorized 06/03/2020 06/03/2021 99 99 Encounter Details Date Type Department Care Team Description 07/07/2020 Nurse Only Department of Oncology in [facility] Kimberly luo APRN, C.N.P., M.S. [address] [place] [phone] [place], [place] Keshawn Morales, R.N. [address] [place] [phone] [place] [phone] Social History Tobacco Use Types Packs/Day [...] periaortic, and mesenteric lymph nodes was reported ([facility] review). 3.) 05/25/2020 CA 19-9 [id number] [...] calcium is being monitored by her local Sanding Line Operator, who had increased her dosing due to low calcium of 5.0. She notes that her calcium typically drops after chemotherapy. She will reach out to Sanding Line Operator regarding new values, and recommendations. She would like to see an Barrel Straightener here at [facility], as recommended by Sanding Line Operator. Blood pressure this morning is 164/87, pulse 77. Labs reviewed by band saw runner list reviewed & updated by RN Plan I have updated one of our care team providers, Kimberly Rios NP, regarding Ms. العراقي supervisor carbon electrodes and labs. We discussed adhering to small, [...] (Approximate), consult (clinic) Hypocalcemia Expires: Hypoparathyroidism 4 ([facility]) documented as of this encounter Results BMD [...] including images and graphs, is available in [employer]. ?In the absence of other causes of [...] evidence of skeletal fragility in the [facility] setting. Degenerative changes are present which m ay spuriously elevate the spine BMD measurement. Patient does not meet ISCD guidelines fo r FRAX calculations. IMPRESSION: Osteopenia Kimberly Rios APRN, C.N.P., M.S. IMG DXA PROCEDURES (ABNORMAL) Creatinine with Estimated GFR (07/24/2020 8:13 AM CDT) athologist Signature Creatinine 1.02 0.59 - 07/24/2020 DTL 1.04 mg/dL 9:03 AM CDT eGFR-Non 53 (L) >=60 07/24/2020 DTL Black/ mL/min/BSA 9:03 AM CDT Paraguayan Comment: ----ADDITIONAL INFORMATION---- Estimated GFR calculated using the 2009 CKD_EPI creatinine equation. eGFR-Black/ 61 >=60 mL/min/BSA 2020 9:03 AM CDT DT Comment: ----ADDITIONAL INFORMATION---- Estimated GFR calculated using the 2009 CKD_EPI creatinine equation. Specimen Anatomical Collection Method Collection Time Receive d Time (Source) Location / / Volume Laterality Blood (Blood, 07/24/2020 8:13 AM 07/25/19 8:21 Venous) CDT AM CDT Kimberly Rios APRN, C.N.P., M.S. LAB BLOOD ADD-ON Performing Organization Address City/[facility] Phon e Number [facility] - 200 [place] [address] Laboratories-[address] Phosphorus Inorganic (07/24/2020 8:13 AM CDT) P athologist Signature Phosphorus 3.3 2.5 - 4.5 07/24/2020 DTL (Inorganic), S mg/dL 9:03 AM CDT Specimen Anatomical Collection Method Collection Time Receive d Time (Source) Location / / Volume Laterality Blood (Blood, 07/24/2020 8:13 AM 07/25/19 8:21 Venous) CDT AM CDT Kimberly Rios APRN, C.N.P., M.S. LAB BLOOD ADD-ON Performing Organization Address City/[facility] Phon e Number [facility] - 200 [place], [place] [address] [place] [address] Laboratories[address] (ABNORMAL) Calcium, Total (07/24/2020 8:13 AM CDT) P athologist Signature Calcium, 7.7 (L) 8.8 - 10.2 07/24/2020 DTL Total, S mg/dL 9:03 AM CDT Specimen Anatomical Collection Method Collection Time Receive d Time (Source) Location / / Volume Laterality Blood (Blood, 07/24/2020 8:13 AM 07/25/19 21 8:21 Venous) CDT AM CDT Kimberly Rios APRN, C.N.P., M.S. LAB BLOOD ADD-ON Performing Organization Address City/State/[facility] Code Phon e Number [facility] - [address] [place], [place] [address] [place] [address] Laboratories-[address] Parathyroid Hormone (PTH) (07/24/2020 8:13 AM CDT) P athologist Signature Parathyroid 33 15 - 65 07/24/2020 DTL Hormone (PTH), S pg/mL 9:03 AM CDT Specimen Anatomical Collection Method Collection Time Receive d Time (Source) Location / / Volume Laterality Blood (Blood, 07/24/2020 8:13 AM 07/25/19 21 8:21 Venous) CDT AM CDT Kimberly Rios APRN, C.N.P., M.S. LAB BLOOD ADD-ON Performing Organization Address City/[facility] Code Phon e Number [facility] - [address] [place], [place] [address] [place] [address] Laboratories-[address] documented in this encounter Visit Diagnoses Diagnosis Hypocalcemia - Primary Malignant Neoplasm Of Pancreas Adenocarc inoma (HCC) Hypoparathyroidism (HCC) Malignant Neoplasm Of Pancreas Adenocarc inoma (HCC) Hypocalcemia Hypoparathyroidism (HCC) documented in this encounter
--- OUTSIDE RECORDS SUMMARY | 2021-11-15 12:26 | XMS_ITS | Encounter Summary ---
:1940 Author Organization [facility] Address [address] [place] [address] Care Team Providers Name Role Phone Unavailable Primary Care Provider Unavailable Reason for Referral Outpatient (Routine) - Closed Specialty Diagnoses / Procedures Referred By Contact Refer red To Contact Radiology Diagnoses Lesion Pancreas Kimberly Rios APRN, [facility] Procedures IR Implanted Vascular Access Device Placement C.N.P., M.S. [address] [place] [phone] Referral ID Status Reason Start Date Expiration Date Visits Requ ested Visits Authorized [id number] Closed 06/03/2020 06/03/2021 1 1 PROCESSING SCIENTIST Reason for Visit Outpatient (Routine) - Closed Specialty Diagnoses / Procedures Referred By Contact Refer red To Contact Radiology Diagnoses Lesion Pancreas Kimberly Rios APRN, [facility] Procedures IR Implanted Vascular Access Device Placement C.N.P., M.S. [address] [place] [address] [phone] Referral ID Status Reason Start Date Expiration Date Visits Requ ested Visits Authorized [id number] Closed 06/03/2020 06/03/2021 1 1 Encounter Details Date Type Department Care Team Description 06/05/2020 Hospital Encounter Department of Chris Rios APRN, C.N.P., M.S. [address] [place] [phone] Lesion Pancreas Radiology in Akhil Cantor M.D. [address] [place] [address] ([facility]) [place], [place] [address] [place] [phone] Social History Tobacco Use Types Packs/Day Years [...] Comments Blood Pressure 146/68 06/05/2020 10:30 AM FOOD PROCESSING SCIENTIST Pulse 69 06/05/2020 10:30 AM FOOD PROCESSING SCIENTIST Temperature 36.9 ??C (98.4 ??F) 06/05/2020 9:04 AM FOOD PROCESSING SCIENTIST Respiratory Rate 16 06/05/2020 10:30 AM FOOD PROCESSING SCIENTIST Oxygen Saturation 98% 06/05/2020 10:30 AM FOOD PROCESSING SCIENTIST Inhaled Oxygen Concentration - - Weight 52.6 kg (116 lb) 06/05/2020 9:04 AM FOOD PROCESSING SCIENTIST Height - - Body Mass Index 19.12 05/25/2020 12:52 PM FOOD PROCESSING SCIENTIST documented in this encounter Medications at Time of Discharge Medication Sig Dispensed Refills Start Date End Date vsuapdf-P0-fwse-copper-man Take by mouth. 0 05/20 kateryna (Citracal-D3 [...] Not applicable PATIENT INSTRUCTIONS No return appointment PROCESSING SCIENTIST documented in this encounter Plan of Treatment Not on filedocumented as of this encounter Procedures Procedure Name Priority Date/Time Associated Comments Diagnosis IR IMPLANTED RAD - Routine 06/05/2020 10:35 Lesion Pancreas Results for this VASCULAR ACCESS (most inpatients AM FOOD PROCESSING SCIENTIST (HCC) procedur e are in DEVICE PLACEMENT and all the results outpatients) section. documented in this encounter Results IR Implanted Vascular Access Device Placement (06/05/2020 10:35 AM FOOD PROCESSING SCIENTIST) Anatomical Region Laterality Modality Chest, Pelvis, Abdomen, Vascular Interventional RST LOS, N/A X-Ray Angiography Vascular Interventional ARZ LOS, Vascular Interventional FLA LOS Specimen (Source) Anatomical Collection Method Collection Time Re ceived Time Location / / Volume Laterality 06/05/2020 10:40 AM FOOD PROCESSING SCIENTIST Impressions 06/05/2020 10:41 AM FOOD PROCESSING SCIENTIST Placement of an 8F Slim Power Port-A-Cath. Ready for immediate use. NR Narrative 06/05/2020 10:41 AM FOOD PROCESSING SCIENTIST EXAM: IR IMPLANTED VASCULAR ACCESS DEVICE PLACEMENT [...] Ready for immediate use. NR Kimberly Rios APRN C.N.P., M.S. IMG IR PROCEDURES documented in this encounter Visit Diagnoses Diagnosis Lesion Pancreas documented in this encounter Administered Medications Inactive Administered Medications - up to 3 most recent administrations Medication Order MAR Action Action Date Dose Rate Site fentaNYL injection 25 mcg Given 06/05/2020 10:21 AM FOOD PROCESSING SCIENTIST 25 mcg (SUBLIMAZE) 25 mcg, intravenous, Every [...] than 8 breaths/minute Given 06/05/2020 10:09 AM FOOD PROCESSING SCIENTIST 25 mcg Given 06/05/2020 10:00 AM FOOD PROCESSING SCIENTIST 25 mcg flumazeniL injection 0.2 mg (ROMAZICON) 0.2 mg, intravenous, Once as needed, rev ersal, Starting on Mon06/05/20 at 1010, For 1 dose, Intraprocedure (RAD), Administer once if patient has a RASS score of -4, -5 and has a respiratory rate less than 8 breaths/minute. heparin flush Given 06/05/2020 10:22 AM FOOD PROCESSING SCIENTIST 800 Units Code/trauma/sedation medication, Starting on Mon06/05/20 at 1022 lidocaine (PF) 10 mg/mL (1 %) injection Given 06/05/2020 10:31 1 0 mL Right Neck (XYLOCAINE) AM FOOD PROCESSING SCIENTIST Code/trauma/sedation medication, Starting on Mon06/05/20 at 1031 lidocaine-EPINEPHrine (PF) 1 Given 06/05/2020 10:30 AM 6 mL Right Chest %-1:200,000 injection (XYLOCAINE W/EPI) FOOD PROCESSING SCIENTIST Code/trauma/sedation medication, Starting on Mon06/05/20 at 1030 midazolam (PF) injection 0.5 mg (VERSED) 0.5 mg, intravenous, Once as needed, sed ation, Starting on Mon06/05/20 at 1010, For 1 dose, Intraprocedure (RAD) midazolam (PF) injection 0.5 mg (VERSED) Given 06/05/2020 10:17 AM FOOD PROCESSING SCIENTIST 0.5 mg 0.5 mg, intravenous, Every 2 min PRN, sedation, RASS -1, Starting on Mon06/05/20 at 1010, Intraprocedure (RAD), May repeat every 2 minutes for a maximum of 5 mg. Do not give if respiratory rate is less than 8 breaths/minute. Given 06/05/2020 10:09 AM FOOD PROCESSING SCIENTIST 0.5 mg Given 06/05/2020 10:00 AM FOOD PROCESSING SCIENTIST 0.5 mg NaCl 0.9% infusion New Bag 06/05/2020 10:00 AM FOOD PROCESSING SCIENTIST 20 mL/hr 20 mL/hr 20 mL/hr, intravenous, [...] Recently Administered Medications Times are shown in FOOD PROCESSING SCIENTIST. Scheduled Medication Order 06/03/2020 06/04/2020 06/05/2020 sodium chloride 0.9 % injection 3 mL 0900 (Due) 3 mL, intravenous, Every 12 hours schedu led, First dose on Mon06/05/20 at 0900, Preprocedure (RAD), Peripheral Intravenous Catheter and Rapid Infusion Catheter, when no infusion to maintain patency PRN Medication Order 06/03/2020 06/04/2020 06/05/2020 fentaNYL injection 25 mcg (SUBLIMAZE) 1000 (Given - Provider: Gricel Cook, R.N.)1009 (Given - Provider: Gricel Cook R.N.)1021 (Given - Provider: Gricel Cook RKendall) 25 mcg, intravenous, Every 2 min PRN, [...] 0.5 mg (VERSED) 1000 (Given - Provider: Shilo KwonNChico)1009 (Given - Provider: Gricel Cook R.N.)1017 (Given - Provider: Gricel Cook RKendall) 0.5 mg, intravenous, Every 2 min PRN, [...]
--- OUTSIDE RECORDS SUMMARY | 2021-11-15 12:26 | XMS_ITS | Encounter Summary ---
:1940 Author Organization [facility] Address [address] [place] [address] Care Team Providers Name Role Phone Unavailable Primary Care Provider Unavailable Reason for Referral Outpatient (Routine) Specialty Diagnoses / Procedures Referred By Contact Refer red To Contact Oncology Kimberly Rios APRN, C.NJasson, [facility] M.S. [address] [place] [phone] Referral ID Status Reason Start Date Expiration Date Visits Requ ested Visits Authorized Reason for Visit Episode Based Medications (Routine) - Authorized Specialty Diagnoses / Procedures Referred By Contact Refer red To Contact Diagnoses Malignant Neoplasm Of Pancreas Adenocarcinoma (HCC) Neutropenia Chemotherapy Induced (HCC) Kimberly Rios, Rst Onc Trace Cespedes APRNNJasson, M.S. 200 [address] [facility] [address] [place] [phone] Referral ID Status Reason Start Date Expiration Date Visits V isits Requested Authorized [id number] Authorized 06/03/2020 06/03/2021 99 99 Encounter Details Date Type Department Care Team Description 06/22/2020 Office Visit Department of Kimberly Rios eoplasm Of Oncology issa Phillips APRN, C.NJasson, Pancreas Ad enocarcinoma [place], [place] M.S. (HCC) (Primary Dx) [address] [place] [address] [place] [address] [phone] Social History Tobacco Use Types Packs/Day Years [...] on file. LOCAL ONCOLOGIST No care steam and power superintendent to display PRIMARY EMINENCE ONCOLOGIST Nova Vivar M.B.B.S. Kimberly Rios APRN, [...] periaortic, and mesenteric lymph nodes was reported ([facility] review). 3.) 05/25/2020 CA 19-9 178 [...] capsule ??? CALCIUM CITRATE ORAL Citracal ??? swqossw-N0-wmkr-copper-marlo (Citracal-D3 Maximum Plus) 325 mg-12.5 mcg - [...] Priority Associated Diagnoses Order S [facility] Oncology office Outpatient Referral Routine Malignant [...] PM 07/21/19 1:46 Venous) CDT PM CDT Trace Rudolph APRNN.P., M.S. LAB BLOOD ADD-ON Performing Organization Address City/State/[facility] Code Phon e Number [facility] - [address] [place], [place] [address] [facility] [place] [address] [facility] [address] (ABNORMAL) Comprehensive Metabolic Panel (07/20/2020 1:21 PM [...] 07/20/2020 DTL Black/ mL/min/BSA 2:21 PM CDT Maltese Comment: ----ADDITIONAL INFORMATION---- Estimated GFR calculated using [...] Organization Address City/State/ZIP Code Phon e Number [facility] - [address] [place], [place] [address] [facility] [place] [address] [facility] [address] (ABNORMAL) CBC with Differential, Blood (07/20/2020 1:21 PM CDT) [facility] gist Method Time Signature Hemoglobin 10.0 (L) 11.6 [...] Organization Address City/State/ZIP Code Phon e Number [facility] - [address] [place], [place] [address] [facility] [place] [address] [facility] [address] [facility] Magnesium (06/22/2020 9:51 AM CDT) P athologist Signature Magnesium, S 1.8 1.7 - 2.3 06/22/2020 DTL mg/dL 12:58 PM CDT Specimen Anatomical Collection Method Collection Time Receive d Time (Source) Location / / Volume Laterality Blood (Blood, 06/22/2020 9:51 AM 06/23/19 21 Venous) CDT 12:19 PM CDT Kimberly Rios APRN, C.N.P., M.S. LAB BLOOD ADD-ON Performing Organization Address City/State/[facility] Code Phon e Number [facility] - [address] [place], [place] [address] [facility] [place] [address] [facility] [address] documented in this encounter Visit Diagnoses Diagnosis Malignant Neoplasm Of Pancreas Adenocarc inoma (HCC) - Primary documented in this encounter
--- OUTSIDE RECORDS SUMMARY | 2021-11-15 12:26 | XMS_ITS | Encounter Summary ---
:1940 Author Organization [facility] Address [address] [place] [address] Care Team Providers Name Role Phone Unavailable Primary Care Provider Unavailable Reason for Referral Outpatient (Routine) - Closed Specialty Diagnoses / Procedures Referred By Contact Refer red To Contact Oncology Kimberly Rios APRN, [facility] [address] [place] [phone] Referral ID Status Reason Start Date Expiration Date Visits Requ ested Visits Authorized [id number] Closed 06/03/2020 06/03/2021 1 1 Scheduling Instructions Port education PER Encounter Details Date Type Department Care Team Description 06/03/2020 Clinical Communication Department of Oncology Tonya Sinclair in [facility] Harleen, RKendall, [facility] [phone] [place] [address] (Work) [place] [phone] Social History Tobacco Use Types Packs/Day Years [...]
--- OUTSIDE RECORDS SUMMARY | 2021-11-15 12:26 | XMS_ITS | Encounter Summary ---
:1940 Author Organization [facility] Address [address] [place] [address] Care Team Providers Name Role Phone Unavailable Primary Care Provider Unavailable Reason for Referral Outpatient (Routine) - Closed Specialty Diagnoses / Procedures Referred By Contact Refer red To Contact Diagnoses Malignant Neoplasm Of Pancreas Adenocarcinoma (HCC) Kimberly Rios APRN, [facility] Procedures ONC Pump Disconnect C.N.P., M.S. [address] [place] [address] Referral ID Status Reason Start Date Expiration Date Visits Requ ested Visits Authorized [id number] Closed 06/23/2020 06/23/2021 1 1 Encounter Details Date Type Department Care Team Description 06/23/2020 Orders Only [address] of [facility], Malignant Neop lasm Of Infusion Therapy in Pema Phillips R Kendall Pancreas Adenocarcinoma [place], [place] 2199 (HCC) (Primary Dx) 2199 [place] [phone] Social History Tobacco Use Types Packs/Day Years [...]
--- OUTSIDE RECORDS SUMMARY | 2021-11-15 12:26 | XMS_ITS | Encounter Summary ---
:1940 Author Organization [facility] Address [address] [place] [address] Care Team Providers Name Role Phone Unavailable Primary Care Provider Unavailable Reason for Visit Outpatient (Routine) - Closed Specialty Diagnoses / Procedures Referred By Contact Refer red To Contact Oncology Kimberly Rios APRN, [facility]P., [facility] [address] [place] [phone] Referral ID Status Reason Start Date Expiration Date Visits Requ ested Visits Authorized [id number] Closed 06/03/2020 06/03/2021 1 1 Encounter Details Date Type Department Care Team Description 06/03/2020 Nurse Only Department of Oncology in Kimberly Chino APRN, C.N.P., M.S. [address] [place] [phone] [place], [place] Tonya Sinclair R.N., O.C.N. [address] [place] [phone] Social History Tobacco Use Types Packs/Day [...] 06/19/2021 organizations such as baptism groups, unions, fraAutoGnomics or athletic groups, or school groups? How [...] patient to fast Tonya Sinclair R.N., O.C.N. [employer] documented in this encounter Plan of Treatment Not on filedocumented as of this encounter Visit Diagnoses Diagnosis Malignant Neoplasm Of Pancreas Adenocarc inoma (HCC) - Primary documented in this encounter
--- OUTSIDE RECORDS SUMMARY | 2021-11-15 12:27 | XMS_ITS | Encounter Summary ---
:1940 Author Organization [facility] Address [address] [place] [address] Care Team Providers Name Role Phone Unavailable Primary Care Provider Unavailable Encounter Details Date Type Department Care Team Description 12/22/2016 Hospital Encounter HX [facility] Jeb Berry M.D. 2199 [place], [place] [phone] (Wo rk) Social History [...] Luu M.D. - 12/22/2016 10:28 AM CDT [id number] The documentation for this visit is available in Synthesis IMPRESSION/REPORT/PLAN #1 Cataracts, nuclear both eyes. #2 Choroidal nevus, left eye. Stable, Plan: Update glasses. U/v protection. F/u one year. CE/ref Delmar Luu M.D./ Electronically Signed By: DELMAR LUU MD On: 12/23/2016 07:57 AM Source: [facility] MHSDOLBEYNONRADSYS Document Id: [id number] documented in this encounter Miscellaneous Notes Miscellaneous - Delmar Luu M.D. - 12/22/2016 11:46 AM CDT Ambulatory Patient Summary [facility] [address] [place], [place] [id number] Visit Information Name: AZEB العراقي [facility] Number: [id number] Current Date: 12/22/2016 11:46:53 Physicians [...] online form. Youll be asked for your [facility] number which you can find at the top of this document. Your Goals/Additional instructions: Source: Net[employer] Document Id: [id number] Miscellaneous - Delmar Luu M.D. - 12/22/2016 11:46 AM CDT Ambulatory Discharge Medication List [facility] [address] [place] [id number] Visit Information Name: AZEB العراقي [facility] Number: [id number] Current Date: 12/22/2016 11:46:53 Attending Provider: DELMAR LUU MD Primary Care Provider: PCP, RENA KEVIN AZEBBAJLEET GILLIAM has been given the following list [...] MD Signed On:22-DEC-2016 11:46:52 Additional Information: Source: Netbooks Document Id: [id number] documented in this encounter Plan of Treatment Not on filedocumented as of this encounter Visit Diagnoses Not on filedocumented in this encounter
--- OUTSIDE RECORDS SUMMARY | 2021-11-15 12:27 | XMS_ITS | Encounter Summary ---
:1940 Author Organization [facility] Address [address] [place] [address] Care Team Providers Name Role Phone Unavailable Primary Care Provider Unavailable Reason for Visit Reason Comments Communication eye complaint Encounter Details Date Type Department Care Team Description 07/03/2017 Clinical Communication Department of Delmar Mulligan (eye Sleep Medicine in [place], MJoann. complaint) [place], [address] [facility] [place] [phone] Social History Tobacco Use Types [...] Sania Ross - 07/03/2017 3:28 PM CDT LM on TC . Telephone Encounter - Che Lopez - [...]
--- OUTSIDE RECORDS SUMMARY | 2021-11-15 12:27 | XMS_ITS | Encounter Summary ---
:1940 Author Organization [facility] Address [address] [place] [address] Care Team Providers Name Role Phone Unavailable Primary Care Provider Unavailable Reason for Referral Outpatient (Routine) - Closed Specialty Diagnoses / Procedures Referred By Contact Refer red To Contact Ophthalmology Delmar Mulligan M.D. [facility] [address] [place] [phone] Referral ID Status Reason Start Date Expiration Date Visits Requ ested Visits Authorized [id number] Closed 11/28/2018 11/28/2019 1 1 Reason for Visit Reason Comments Eye Exam Encounter Details Date Type Department Care Team Description 11/28/2018 Comprehensive Visit Department of Delmar Mulligan Age Rel atenicole Nuclear Ophthalmology in Kasey Abel Cataract Bilateral [place], [place] [address] [place] [phone] Social History Tobacco Use Types Packs/Day Years [...] 06/19/2021 organizations such as congregational groups, unions, fraZUCHEM or athletic groups, or school groups? How [...]
--- OUTSIDE RECORDS SUMMARY | 2021-11-15 12:27 | XMS_ITS | Encounter Summary ---
:1940 Author Organization [facility] Address [address] [place] [address] Care Team Providers Name Role Phone Unavailable Primary Care Provider Unavailable Encounter Details Date Type Department Care Team Description 05/28/2020 Anesthesia Event Division of Gastroenterology Ivan Yun julio in [facility] blossom Hope, TIE CARRIER, [address] [facility] ENVIRONMENTAL [place] [phone] [facility] [phone] [place] [address] Anesthesia Record Procedure Summary Procedure Name Responsible [...] h andoff to the receiving staff during [facility] we 1. Identified the patient 2. Ident [...] Room / Location: Division of Gastroenterology in [place], [place] Anesthesia Start: 949 Anesthesia Stop: Procedure: [...] Post Op nausea/vomiting: none Hydration status: euvolemic ER OFF Anesthesia Preprocedure Evaluation - Som Mejia III, M.D. - 05/28/2020 9:25 AM CST Preprocedure Anesthesia & H&P Assessment Procedure Summary Date/Time: 05/28/20 1015 Scheduled providers: Jayy Barajas APRN, CRNA Procedure: ENDOSCOPIC ULTRASOUND (EUS) Diagnosis: Lesion Pancreas (HCC) [K86.89] Location: Division of Gastroenterology in [place], [place] Pertinent components of the patient's history [...] patient / legal guardian, or through an metal annealer; patient evaluated and approved for anesthesia / sedation The use of blood products not discussed Approval to Proceed: approved for anesthesia ER OFF documented in this encounter Plan of Treatment Not on filedocumented as of this encounter Visit Diagnoses Not on filedocumented in this encounter Administered Medications Inactive Administered Medications - up to 3 most recent administrations Medication Order MAR Action Action Date Dose Rate Site fentaNYL injection (SUBLIMAZE) Given 05/28/2020 10:39 AM SETTER OFF 25 mcg intravenous, As needed, Starting on Laila 05/28/20 at 0953, Anesthesia Intra-op Given 05/28/2020 9:53 AM SETTER OFF 25 mcg lactated ringers New Bag 05/28/2020 9:51 AM SETTER OFF intravenous, Continuous Infusion: Per Instructions PRN, Starting on Laila 05/28/20 at 0951, Anesthesia Intra-op lidocaine (PF) (cardiac) injection Given 05/28/2020 9:53 AM SETTER OFF 60 mg intravenous, As needed, Starting on Laila 05/28/20 at 0953, Anesthesia Intra-op ondansetron (PF) injection (ZOFRAN) Given 05/28/2020 9:54 AM SETTER OFF 4 mg intravenous, As needed, Starting on Laila 05/28/20 at 0954, Anesthesia Intra-op propofol 10 mg/mL infusion New Bag 05/28/2020 9:52 150 mcg/kg/min 47.7 mL/hr (DIPRIVAN) AM SETTER OFF intravenous, Continuous Infusion: Per Instructions PRN, Starting on Laila 05/28/20 at 0952, Anesthesia Intra-op propofoL injection (DIPRIVAN) Given 05/28/2020 10:33 AM SETTER OFF 20 mg intravenous, As needed, Starting on Laila 05/28/20 at 0953, Anesthesia Intra-op Given 05/28/2020 10:04 AM SETTER OFF 20 mg Given 05/28/2020 10:00 AM SETTER OFF 20 mg documented in this encounter
--- OUTSIDE RECORDS SUMMARY | 2021-11-15 12:27 | XMS_ITS | Encounter Summary ---
:1940 Author Organization [facility] Address [address] [place] [address] Care Team Providers Name Role Phone Unavailable Primary Care Provider Unavailable Reason for Referral Outpatient (Routine) Specialty Diagnoses / Procedures Referred By Contact Refer red To Contact Oncology Kimberly Rios APRN, C.NJasson, [facility] [address] [place] [phone] Referral ID Status Reason Start Date Expiration Date Visits Requ ested Visits Authorized utpatient (Routine) Specialty Diagnoses / Procedures Referred By Contact Refer red To Contact Oncology Kimberly Rios APRN, C.NAbdirashid., [facility] [address] [place] [phone] Referral ID Status Reason Start Date Expiration Date Visits Requ ested Visits Authorized PAN OPERATOR Specialty Diagnoses / Procedures Referred By Contact Refer red To Contact Kimberly Rios APRN, C.N.P., [facility] [address] [place] [phone] Referral ID Status Reason Start Date Expiration Date Visits Requ ested Visits Authorized utpatient (Routine) - Closed Specialty Diagnoses / Procedures Referred By Contact Refer red To Contact Radiology Diagnoses Lesion Pancreas Kimberly Rios APRN, [facility] Procedures IR Implanted Vascular Access Device Placement C.Bhargav, M.S. [address] [place] [address] Referral ID Status Reason Start Date Expiration Date Visits Requ ested Visits Authorized [id number] Closed 06/03/2020 06/03/2021 1 1 PAN OPERATOR Reason for Visit Outpatient (Routine) - Closed Specialty Diagnoses / Procedures Referred By Contact Refer red To Contact Medical Oncology / Diagnoses Lesion Pancreas Yasir Daley [facility] Oncology Kasey Silva, Ph.D. 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 Lesion Pancreas (HCC); [address] Secondary Malignant Neoplasm Lymph Node (HCC) [place], [place] [address] [place] [phone] [place], [place] [phone] (Work) [phone] Social History Tobacco Use Types Packs/Day Years [...] periaortic, and mesenteric lymph nodes was reported ([facility] review). 3.) 05/25/2020 CA 19-9 178 [...] plan for FOLFIRINOX to start next Monday. PAN OPERATOR Kimberly Rios APRN, C.N.P., M.S. - 06/03/2020 10:00 AM CST SUBJECTIVE PRIMARY CARE PHYSICIAN No primary care provider on file. REQUESTING PROVIDER Yasir Daley M.D., Ph.D. [address] [place] [address] [place] [phone] LOCAL ONCOLOGIST No care hourly team members to display PRIMARY [place] ONCOLOGIST Nova Vivar M.B.B.S. REASON FOR CONSULT [...] periaortic, and mesenteric lymph nodes was reported ([facility] review). 3.) 05/25/2020 CA 19-9 178 [...] for adenocarcinoma. Prior to meeting with Ms. العراقي I [...] questioning if she could receive chemotherapy in [facility]. Certainly could receive any standard therapies at that facility. She will contemplate where she wants her therapy administered. To begin with we will go ahead and get port placed. Tentatively make arrangements for chemotherapy to start next week. We can then transition to [place] at any time. She understands that we [...] physicians, nurse practitioners/physician assistants, nurses and other community support worker that specialize in this cancer. Also, reviewed [...] and/or coordination of care as described above. PAN OPERATOR documented in this encounter Plan of [...] Organization Address City/State/ZIP Code Phon e Number [facility] - [address] [place], [place] [address] [facility] [place] [place] [address] [facility] [address] (ABNORMAL) Comprehensive Metabolic Panel (07/07/2020 7:43 AM CDT) Analysis Performed At [facility] Time Signature Potassium, S 3.6 3.6 - [...] 07/07/2020 DTL Black/ mL/min/BSA 8:28 AM CDT Filipino [...] Organization Address City/State/ZIP Code Phon e Number [facility] - [address] [place] [address] [facility] [place] [address] [facility] [address] [facility] (ABNORMAL) CBC with Differential, Blood (07/07/2020 7:43 AM CDT) [facility] gist Method Time Signature Hemoglobin 10.4 [...] Organization Address [facility] Phon e Number [facility] [address] Bilirubin, Direct (06/22/2020 9:53 AM CDT) athologist Signature Bilirubin, <0.2 0.0 - 0.3 06/22/2020 DTL Direct, S mg/dL 10:34 AM CDT Specimen Anatomical Collection Method Collection Time Receive d Time (Source) Location / / Volume Laterality Blood (Blood, 06/22/2020 9:53 AM 06/23/19 Venous) CDT 10:00 AM CDT Trace Rudolph APRNN.P., M.S. LAB BLOOD ADD-ON Performing Organization Address City/[facility] Phon e Number [facility] 200 [place], [place] [address] [place] [address] (ABNORMAL) Comprehensive Metabolic Panel (06/22/2020 9:53 AM [...] 06/22/2020 DTL Black/ mL/min/BSA 10:34 AM CDT Filipino Comment: ----ADDITIONAL INFORMATION---- Estimated [...] Organization Address City/State/ZIP Code Phon e Number [facility] - 200 [place], [place] [address] [facility] [place] [address] [facility] 200 [facility] (ABNORMAL) CBC with Differential, Blood (06/22/2020 9:53 AM CDT) [facility] Method Time Signature Hemoglobin 9.8 (L) 11.6 [...] Organization Address [facility] Phon e Number [facility] - [address] Bilirubin, Direct (06/08/2020 7:52 AM CDT) athologist Signature Bilirubin, <0.2 0.0 - 0.3 06/08/2020 DTL Direct, S mg/dL 8:51 AM CDT Specimen Anatomical Collection Method Collection Time Receive d Time (Source) Location / / Volume Laterality Blood (Blood, 06/08/2020 7:52 AM 06/09/19 8:05 Venous) CDT AM CDT Trace Rudolph APRNNAbdirashid., M.S. LAB BLOOD ADD-ON Performing Organization Address City/[facility] Phon e Number [facility] - [address] [place] [address] (ABNORMAL) Comprehensive Metabolic Panel (06/08/2020 7:52 AM [...] DTL Nitrogen), S mg/dL 8:51 AM CDT Creatinine 0.96 0.59 - 06/08/2020 DTL 1.04 mg/dL 8:51 AM CDT eGFR-Non 57 (L) >=60 06/08/2020 DTL Black/ mL/min/BSA 8:51 AM CDT Filipino Comment: ----ADDITIONAL INFORMATION---- Estimated [...] 8:05 Venous) CDT AM CDT Trace Rudolph APRNN.P., M.S. LAB BLOOD ADD-ON Performing Organization Address City/State/ZIP Code Phon e Number [facility] - [address] [place], [place] [address] [facility] [place] [address] [facility] [address] (ABNORMAL) CBC with Differential, Blood (06/08/2020 7:52 AM CDT) [facility] Method Time Signature Hemoglobin 11.1 (L) 11.6 [...] 21 8:09 Venous) CDT AM CDT Kimberly Rios APRN, C.N.P., M.S. LAB BLOOD ADD-ON Performing Organization Address City/State/ZIP Code Phon e Number [facility] - [address] [place], [place] [address] [facility] [place] [address] [facility] [address] IR Implanted Vascular Access Device Placement (06/05/2020 10:35 AM WET PAN OPERATOR) Anatomical Region Laterality Modality Chest, Pelvis, Abdomen, Vascular Interventional RST LOS, N/A X-Ray Angiography Vascular Interventional ARZ LOS, Vascular Interventional FLA LOS Specimen (Source) Anatomical Collection Method Collection Time Re ceived Time Location / / Volume Laterality 06/05/2020 10:40 AM WET PAN OPERATOR Impressions 06/05/2020 10:41 AM WET PAN OPERATOR Placement of an 8F Slim Power Port-A-Cath. Ready for immediate use. NR Narrative 06/05/2020 10:41 AM WET PAN OPERATOR EXAM: IR IMPLANTED VASCULAR ACCESS DEVICE PLACEMENT [...]
--- OUTSIDE RECORDS SUMMARY | 2021-11-15 12:27 | XMS_ITS | Encounter Summary ---
:1940 Author Organization [facility] Address [address] [place] [address] Care Team Providers Name Role Phone Unavailable Primary Care Provider Unavailable Reason for Referral Outpatient (Routine) - Closed Specialty Diagnoses / Procedures Referred By Contact Refer red To Contact Procedures Delmar Mulligan [facility].D. [facility] Region OPH General eye exam [address] [place] [phone] Referral ID Status Reason Start Date Expiration Date Visits Requ ested Visits Authorized [id number] Closed 12/11/2019 12/10/2020 1 1 Reason for Visit Reason Comments Eye Exam Outpatient (Routine) - Closed Specialty Diagnoses / Procedures Referred By Contact Refer red To Contact Ophthalmology Delmar Mulligan M.D. [facility] Region [address], [place] [phone] Referral ID Status Reason Start Date Expiration Date Visits Requ ested Visits Authorized [id number] Closed 04/11/2019 04/10/2020 1 1 Encounter Details Date Type Department Care Team Description 12/11/2019 Office Visit Department of Delmar Mulligan, Cataract nile Nuclear Sclerosis Bilateral (Primary Dx); Ophthalmology in M.Rafa Myopia Bilateral [place], [place] [address] [place] [phone] Social History Tobacco Use Types Packs/Day Years [...]
--- OUTSIDE RECORDS SUMMARY | 2021-11-15 12:27 | XMS_ITS | Encounter Summary ---
:1940 Author Organization [facility] Address [address] [place] [address] Care Team Providers Name Role Phone Unavailable Primary Care Provider Unavailable Reason for Visit Reason Comments Pancreas appt 06/02 for solid/cystic pa ncreas uncinate mass Previsit Preparation Encounter Details Date Type Department Care Team Description 05/21/2020 Clinical Division of Fredi Pancreas (appt 06/02 Communication Gastroenterology in [facility]annine id/cystic [place], [place] Kasey pancreas uncinate [address] [place] ); [place] [address] Preparation [phone] [place] [address] Social History Tobacco Use Types Packs/Day Years [...] COVID19 Pending 05/25/2020 05/25/2020 05/26/2020 9:52 AM MANUFACTURING QUALITY ENGINEER documented as of this encounter
--- OUTSIDE RECORDS SUMMARY | 2021-11-15 12:27 | XMS_ITS | Encounter Summary ---
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 Estrogen Deficiency [place] [address] (Primary Dx) [address] [facility] [place] [phone] Social History Tobacco Use Types Packs/Day Years [...] has seen her primary provider, and a game master and they told her that she did [...] detergents, she does not douche or use lswx-zkx-walbahk products. She did attempt to use refresh, [...] cups of coffee, and milk withher meals. [facility] URO PROLAPSE INTAKE QUESTIONNAIRE SB: How [...] Extremities: Warm, without edema or ulcerations. Musculoskeletal: Otis is symmetrical and balanced. DIAGNOSTIC Postvoid residual [...] tract infections. Prescription is sent to the [place] pharmacy for estriol 0.3% compound id vaginal [...]
--- OUTSIDE RECORDS SUMMARY | 2021-11-15 12:27 | XMS_ITS | Encounter Summary ---
:1940 Author Organization [facility] Address [address] [place] [address] Care Team Providers Name Role Phone Unavailable Primary Care Provider Unavailable Reason for Referral Outpatient (Routine) - Closed Specialty Diagnoses / Procedures Referred By Contact Refer red To Contact Ophthalmology Delmar Mulligan M.D. [facility] [place] [facility] [address] [place] [phone] Referral ID Status Reason Start Date Expiration Date Visits Requ ested Visits Authorized [id number] Closed 04/11/2019 04/10/2020 1 1 EMENT PARK ENTERTAINER Reason for Visit Reason Comments Follow-up Outpatient (Routine) - Closed Specialty Diagnoses / Procedures Referred By Contact Refer red To Contact Ophthalmology Delmar Mulligan M.D. [facility] [address] [place] [phone] Referral ID Status Reason Start Date Expiration Date Visits Requ ested Visits Authorized [id number] Closed 12/03/2018 12/03/2019 1 1 Encounter Details Date Type Department Care Team Description 04/11/2019 Office Visit Department of Delmar Mulligan Cataract Se nile Ophthalmology issa Parks Nuclear Sclerosis [place], [place] [address] [place] [address] Bilateral (Primary [address] [place], [place] Dx) [place] [phone] Social History Tobacco Use Types Packs/Day Years [...] Plan: RTC nine months annual dilation. N/c EMENT PARK ENTERTAINER documented in this encounter Plan of Treatment Scheduled Referrals Name Type Priority Associated Order Schedule Diagnoses Ophthalmology office Outpatient Referral Routine Expected: visit (clinic) 12/11/2019 (Approximate), Expires: 04/11/2022 documented as of this encounter Visit Diagnoses Diagnosis Cataract Senile Nuclear Sclerosis Bilate ral - Primary documented in this encounter
--- OUTSIDE RECORDS SUMMARY | 2021-11-15 12:27 | XMS_ITS | Encounter Summary ---
:[address] [facility] Address [address] [place] [address] Care Team Providers Name Role Phone Unavailable Primary Care Provider Unavailable Reason for Referral Outpatient (Routine) - Closed Specialty Diagnoses / Procedures Referred By Contact Refer red To Contact Medical Oncology / Diagnoses Lesion Pancreas Dileep Crawford [facility] Oncology Kasey Silva, Ph.D. Referral ID Status Reason Start Date Expiration Date Visits Requ ested Visits Authorized [id number] Closed 05/29/2020 05/29/2021 1 1 utpatient (Routine) - Closed Specialty Diagnoses / Procedures Referred By Contact Refer red To Contact Diagnoses Lesion Pancreas Dileep Crawford M.D., [facility] Procedures EUS Ph.D. Referral ID Status Reason Start Date Expiration Date Visits Requ ested Visits Authorized [id number] Closed 05/21/2020 05/21/2021 1 1 LE LEAK AND SQUEAK REPAIRER Reason for Visit Appointment Request (Routine) - Closed Specialty Diagnoses / Referred By Contact Referred To Procedures Contact Gastroenterology and Diagnoses Mass Pancreas Pain Epigastric Loss Weight Abnormal Anorexia Non Psychogenic Antonio Azevedo, Hepatology [address] [address] Referral ID Status Reason Start Date Expiration Date Visits Requ ested Visits Authorized [id number] Closed 05/21/2020 05/21/2021 1 1 Encounter Details Date Type Department Care Team Description 05/25/2020 Comprehensive Visit Division of Panchito Crawford Gastroenterology in Dileep Silva ([facility]) (Hossein davis [place], [place] Kasey, Ph.D. Dx) [address] [place] [address] Social History Tobacco Use Types Packs/Day Years [...] Comments Blood Pressure 155/93 05/25/2020 12:52 PM RATTLE LEAK AND SQUEAK REPAIRER Pulse 79 05/25/2020 12:52 PM RATTLE LEAK AND SQUEAK REPAIRER Temperature - - Respiratory Rate - - Oxygen Saturation - - Inhaled Oxygen Concentration - - Weight 53 kg (116 lb 13.5 oz) 05/25/2020 12:52 PM RATTLE LEAK AND SQUEAK REPAIRER Height 165.9 cm (5' 5.32) 05/25/2020 12:52 PM RATTLE LEAK AND SQUEAK REPAIRER Body Mass Index 19.26 05/25/2020 12:52 PM RATTLE LEAK AND SQUEAK REPAIRER documented in this encounter Consult Notes Dileep Crawford M.D., Ph.D. - 05/25/2020 1:10 PM CST REFERRING PROVIDER Antonio Azevedo M.D. [address] [place], [place] [id number] CHIEF COMPLAINT / REASON FOR VISIT Pancreatic [...] aortocaval, and mesenteric lymph nodes was reported ([facility] reviewed). The patient otherwise denies presence of any vomiting, discoloration of stool, jaundice, or any episodes of pancreatitis. Given these radiology results the patient decided to come to the [facility] to undergo a comprehensive evaluation of her [...] file Gets together: Not on file Attends moravian service: Not on file Active member of [...] #1 pancreatic mass Today together with Dr. Jraa we spoke with the patient about the [...] patient expressed understanding of the content. Supervising Oracle Fusion Developer: Dr. Hayden Jara. Electronically signed: Dileep Crawford M.D., Ph.D. LE LEAK AND SQUEAK REPAIRER Tonie Jara M.D. - 05/25/2020 1:10 PM [...] therapy. They understand and want to proceed. LE LEAK AND SQUEAK REPAIRER documented in this encounter Miscellaneous Notes Addendum Note - Dileep Crawford M.D., Ph.D. - 05/25/2020 1:10 PM RATTLE LEAK AND SQUEAK REPAIRER Addended by: DILEEP CRAWFORD on: 05/29/2020 09:16 AM Modules accepted: Orders LE LEAK AND SQUEAK REPAIRER documented in this encounter Plan of Treatment Scheduled Referrals Name Type Priority Associated Diagnoses Order S [facility] Oncology - Outpatient Referral Routine Lesion Pancreas Expec hever: Medical, GI (HCC) 05/29/2020 consult (clinic) (Approximat e), Expires: 05/30/2023 documented as of this encounter Results CRP (C-Reactive Protein) (05/25/2020 3:15 PM RATTLE LEAK AND SQUEAK REPAIRER) P athologist Signature C-Reactive <3.0 <=8.0 mg/L 05/25/2020 DTL Protein (CRP), 4:04 PM RATTLE LEAK AND SQUEAK REPAIRER S Specimen Anatomical Collection Method Collection Time Receive d Time (Source) Location / / Volume Laterality Blood (Blood, 05/25/2020 3:15 PM 05/26/19 3:37 Venous) RATTLE LEAK AND SQUEAK REPAIRER PM RATTLE LEAK AND SQUEAK REPAIRER Dileep Crawford M.D., Ph.D. LAB BLOOD ADD-ON Performing Organization Address City/[facility] Phon e Number [facility] - [address] [place], [place] [address] [address] [place] [address] Laboratories-[address] (ABNORMAL) Prothrombin Time (PT) (05/25/2020 3:15 PM RATTLE LEAK AND SQUEAK REPAIRER) [facility] Method Time Signature Prothrombin 13.5 (H) 9.4 - 12.5 05/25/2020 DTL Time, P sec 4:09 PM RATTLE LEAK AND SQUEAK REPAIRER INR 1.2 0.9 - 1.1 05/25/2020 DTL 4:09 PM RATTLE LEAK AND SQUEAK REPAIRER Comment: ----ADDITIONAL INFORMATION---- Standard intensity warfarin therapeutic range: 2.0 to 3.0 ?? High intensity warfarin therapeutic rang e: 2.5 to 3.5 Specimen Anatomical Collection Method Collection Time Receive d Time (Source) Location / / Volume Laterality Blood (Blood, 05/25/2020 3:15 PM 05/26/19 3:37 Venous) RATTLE LEAK AND SQUEAK REPAIRER PM RATTLE LEAK AND SQUEAK REPAIRER Dileep Crawford M.D., Ph.D. LAB BLOOD ADD-ON Performing Organization Address City/[facility] Phon e Number [facility] - [address] [place], [place] [address] [place] [id number] [place] [address] (ABNORMAL) Carbohydrate Antigen 19-9 (CA 19-9) (05/25/2020 3:15 PM RATTLE LEAK AND SQUEAK REPAIRER) [facility] Method Time Signature Carbohydrate Ag 178 (H) <35 U/mL 05/25/2020 SDSC 19-9, S 6:45 PM RATTLE LEAK AND SQUEAK REPAIRER Comment: ----ADDITIONAL INFORMATION---- The testing method is an immunoenzymatic assay manufactured by [employer]. and performed on the SuperLikersI 800. ? Values obtained with different assay met hods or kits may be different and cannot be used inte rchangeably. ? Test results cannot be interpreted as ab solute evidence for the presence or absence of malignant disease. Specimen Anatomical Collection Method Collection Time Receive d Time (Source) Location / / Volume Laterality Blood (Blood, 05/25/2020 3:15 PM 05/26/19 5:56 Venous) RATTLE LEAK AND SQUEAK REPAIRER PM RATTLE LEAK AND SQUEAK REPAIRER Dileep Crawford M.D., Ph.D. LAB BLOOD ADD-ON Performing Organization Address City/State/ZIP Code Phon e Number [facility] [address] [place], [place] [address] SUPPORT CENTER [facility] [place] [address] Laboratory Medicine and Pathology [address] [place] (ABNORMAL) Comprehensive Metabolic Panel (05/25/2020 3:15 PM RATTLE LEAK AND SQUEAK REPAIRER) P athologist Signature Potassium, S 4.0 3.6 - 5.2 05/25/2020 DTL mmol/L 4:04 PM RATTLE LEAK AND SQUEAK REPAIRER Sodium, S 141 135 - 145 05/25/2020 DTL mmol/L 4:04 PM RATTLE LEAK AND SQUEAK REPAIRER Chloride, S 98 98 - 107 05/25/2020 DTL mmol/L 4:04 PM RATTLE LEAK AND SQUEAK REPAIRER Bicarbonate, S 27 22 - 29 05/25/2020 DTL mmol/L 4:04 PM RATTLE LEAK AND SQUEAK REPAIRER Anion Gap 16 (H) 7 - 15 05/25/2020 DTL 4:04 PM RATTLE LEAK AND SQUEAK REPAIRER BUN (Blood Urea 12 6 - 21 05/25/2020 DTL Nitrogen), S mg/dL 4:04 PM RATTLE LEAK AND SQUEAK REPAIRER Creatinine 1.02 0.59 - 05/25/2020 DTL 1.04 mg/dL 4:04 PM RATTLE LEAK AND SQUEAK REPAIRER eGFR-Non 53 (L) >=60 05/25/2020 DTL Black/ mL/min/BSA 4:04 PM RATTLE LEAK AND SQUEAK REPAIRER Guyanese Comment: ----ADDITIONAL INFORMATION---- Estimated GFR calculated using the 2009 CKD_EPI creatinine equation. eGFR-Black/ 61 >=60 mL/min/BSA 2020 4:04 PM RATTLE LEAK AND SQUEAK REPAIRER DTL Comment: ----ADDITIONAL INFORMATION---- Estimated GFR calculated using the 2009 CKD_EPI creatinine equation. Calcium, Total, S 6.7 (L) 8.8 - 10.2 mg/dL 05/25/2020 4:04 PM RATTLE LEAK AND SQUEAK REPAIRER DTL Glucose, S 93 70 - 140 mg/dL 05/25/2020 4:04 PM RATTLE LEAK AND SQUEAK REPAIRER D TL Protein, Total, S 7.2 6.3 - 7.9 g/dL 05/25/2020 4:04 P M RATTLE LEAK AND SQUEAK REPAIRER DTL Albumin, S 4.7 3.5 - 5.0 g/dL 05/25/2020 4:04 PM RATTLE LEAK AND SQUEAK REPAIRER D TL Aspartate Aminotransferase 42 8 - 43 U/L 05/25/2020 4 :04 PM RATTLE LEAK AND SQUEAK REPAIRER DTL (AST), S Alkaline Phosphatase, S 62 35 - 104 U/L 05/25/2020 4: 04 PM RATTLE LEAK AND SQUEAK REPAIRER DTL Alanine Aminotransferase 42 7 - 45 U/L 05/25/2020 4:0 4 PM RATTLE LEAK AND SQUEAK REPAIRER DTL (ALT), S Bilirubin, Total, S 0.3 <=1.2 mg/dL 05/25/2020 4:04 PM RATTLE LEAK AND SQUEAK REPAIRER DTL Specimen Anatomical Collection Method Collection Time Receive d Time (Source) Location / / Volume Laterality Blood (Blood, 05/25/2020 3:15 PM 05/26/19 3:37 Venous) RATTLE LEAK AND SQUEAK REPAIRER PM RATTLE LEAK AND SQUEAK REPAIRER Dileep Crawford M.D., Ph.D. LAB BLOOD ADD-ON Performing Organization Address City/State/[facility] Code Phon e Number [facility] - [address] [place], [place] [address] [facility] [place] [address] Laboratories-[facility] 200 [facility] (ABNORMAL) CBC with Differential, Blood (05/25/2020 3:15 PM RATTLE LEAK AND SQUEAK REPAIRER) [facility] Method Time Signature Hemoglobin 11.2 (L) 11.6 - 05/25/2020 DTL 15.0 g/dL 3:44 PM RATTLE LEAK AND SQUEAK REPAIRER Hematocrit 34.2 (L) 35.5 - 05/25/2020 DTL 44.9 % 3:44 PM RATTLE LEAK AND SQUEAK REPAIRER Erythrocytes 3.57 (L) 3.92 - 05/25/2020 DTL 5.13 3:44 PM RATTLE LEAK AND SQUEAK REPAIRER x10(12)/L MCV 95.8 78.2 - 05/25/2020 DTL 97.9 fL 3:44 PM RATTLE LEAK AND SQUEAK REPAIRER RBC Distrib Width 13.1 12.2 - 05/25/2020 DTL 16.1 % 3:44 PM RATTLE LEAK AND SQUEAK REPAIRER Platelet Count 309 157 - 371 05/25/2020 DTL x10(9)/L 3:44 PM RATTLE LEAK AND SQUEAK REPAIRER Leukocytes 7.9 3.4 - 9.6 05/25/2020 DTL x10(9)/L 3:44 PM RATTLE LEAK AND SQUEAK REPAIRER Neutrophils 6.07 1.56 - 05/25/2020 DTL 6.45 3:44 PM RATTLE LEAK AND SQUEAK REPAIRER x10(9)/L Lymphocytes 0.96 0.95 - 05/25/2020 DTL 3.07 3:44 PM RATTLE LEAK AND SQUEAK REPAIRER x10(9)/L Monocytes 0.80 0.26 - 05/25/2020 DTL 0.81 3:44 PM RATTLE LEAK AND SQUEAK REPAIRER x10(9)/L Eosinophils 0.03 0.03 - 05/25/2020 DTL 0.48 3:44 PM RATTLE LEAK AND SQUEAK REPAIRER x10(9)/L Basophils 0.03 0.01 - 05/25/2020 DTL 0.08 3:44 PM RATTLE LEAK AND SQUEAK REPAIRER x10(9)/L Specimen Anatomical Collection Method Collection Time Receive d Time (Source) Location / / Volume Laterality Blood (Blood, 05/25/2020 3:15 PM 05/26/19 21 3:37 Venous) RATTLE LEAK AND SQUEAK REPAIRER PM RATTLE LEAK AND SQUEAK REPAIRER Dileep Crawford M.D., Ph.D. LAB BLOOD ADD-ON Performing Organization Address City/State/ZIP Code Phon e Number [facility] - [address] [place] [address] [facility] [place] [address] Laboratories-[address] Interpretation of Outside CT Abdomen and or Pelvis (05/21/2020 3:14 PM RATTLE LEAK AND SQUEAK REPAIRER) Anatomical Region Laterality Modality Abdomen, Pelvis, Abdominal RST LOS, Abdominal ARZ LOS, N/A Computed Tomography Abdominal FLA LOS, Other Specimen (Source) Anatomical Collection Method Collection Time Re ceived Time Location / / Volume Laterality 05/22/2020 9:51 AM RATTLE LEAK AND SQUEAK REPAIRER Impressions 05/22/2020 10:14 AM RATTLE LEAK AND SQUEAK REPAIRER 1. Mixed cystic and solid lesion appears [...] to accurately characterize. Narrative 05/22/2020 10:14 AM RATTLE LEAK AND SQUEAK REPAIRER EXAM: ??INTERPRETATION OF OUTSIDE CT ABDOMEN AND [...] COVID19 Pending 05/25/2020 05/25/2020 05/26/2020 9:52 AM RATTLE LEAK AND SQUEAK REPAIRER documented as of this encounter
--- OUTSIDE RECORDS SUMMARY | 2021-11-15 12:27 | XMS_ITS | Encounter Summary ---
:1940 Author Organization [facility] Address [address] [place] [address] Care Team Providers Name Role Phone Unavailable Primary Care Provider Unavailable Encounter Details Date Type Department Care Team Description 05/29/2020 Virtual Visit Division of Major Daley (HCC) Gastroenterology in Yasir Silva (Primary Dx) [place], [place] Kasey, Ph.D. [address] [place] [address] Social History Tobacco Use Types Packs/Day [...] home by Yasir Daley M.D., Ph.D. at [facility]. The history and findings below are based [...] aortocaval, and mesenteric lymph nodes was reported ([facility] reviewed). The patient otherwise denies presence of any vomiting, discoloration of stool, jaundice, or any episodes of pancreatitis. Given these radiology results the patient decided to come to [facility] to undergo a comprehensive evaluation of [...] file Gets together: Not on file Attends yarsani service: Not on file Active member of [...] patient expressed understanding of the content. Supervising Sand Mill Grinder: Dr. Hayden Jara. Electronically signed: Yasir Daley M.D., Ph.D. Advised patient to look at the documentation on the patient portal. BILLIN minutes spent in a combination of the following activities: visit with the patient; reviewing records; interpreting test results; discussing plans with the patient and/or family; discussingand coordinating care with other team members and communicating / reviewing care plan with local provider(s). 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
--- OUTSIDE RECORDS SUMMARY | 2021-11-15 12:27 | XMS_ITS | Encounter Summary ---
:1940 Author Organization [facility] Address [address] [place] [address] Care Team Providers Name Role Phone Unavailable Primary Care Provider Unavailable Encounter Details Date Type Department Care Team Description 06/20/2017 Abstract Department of Family Medicine, Provider, Historical [facility], in [place], [place] [address] [place] [address] Social History Tobacco Use [...]
--- OUTSIDE RECORDS SUMMARY | 2021-11-15 12:27 | XMS_ITS | Encounter Summary ---
:1940 Author Organization [facility] Address [address] [place] [address] Care Team Providers Name Role Phone Unavailable Primary Care Provider Unavailable Reason for Visit Appointment Request (Routine) - Closed Specialty Diagnoses / Procedures Referred By Contact Refer red To Contact Ophthalmology Referral ID Status Reason Start Date Expiration Date Visits Requ ested Visits Authorized [id number] Closed 02/23/2018 02/23/2019 1 Encounter Details Date Type Department Care Team Description 02/23/2018 Office Visit Department of Delmar Mulligan Ophthalmoplegi c Migraine Not Intractable (Primary Dx); Ophthalmology in Kasey Abel Detachment Vitreous Posterior Left [place], [place] [address] [place] [address] [place], [place] [phone] Social History Tobacco Use Types Packs/Day [...] dilated exam in six to eight weeks. 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
--- OUTSIDE RECORDS SUMMARY | 2021-11-15 12:27 | XMS_ITS | Encounter Summary ---
:1940 Author Organization [facility] Address [address] [place] [address] Care Team Providers Name Role Phone Unavailable Primary Care Provider Unavailable Reason for Visit Reason Comments COVID Inquiry Encounter Details Date Type Department Care Team Description 05/21/2020 Clinical Division of Prescheduling, COVID Inquiry Communication Gastroenterology in [place], [place] [address] [place] [address] Social History Tobacco Use Types Packs/Day [...] sending patient for testing in [facility] or [facility], route encounter to the correct testing pool. INE ASSISTANT documented in this encounter Plan of Treatment Not on filedocumented as of this encounter Visit Diagnoses Not on filedocumented in this encounter
--- OUTSIDE RECORDS SUMMARY | 2021-11-15 12:27 | XMS_ITS | Encounter Summary ---
:1940 Author Organization [facility] Address [address] [place] [address] Care Team Providers Name Role Phone Unavailable Primary Care Provider Unavailable Reason for Referral Outpatient (Routine) - Closed Specialty Diagnoses / Procedures Referred By Contact Refer red To Contact Diagnoses Lesion Pancreas Yasri Daley M.D., [facility] Procedures EUS Ph.D. Referral ID Status Reason Start Date Expiration Date Visits Requ ested Visits Authorized [id number] Closed 05/21/2020 05/21/2021 1 1 HANDLER Reason for Visit Outpatient (Routine) - Closed Specialty Diagnoses / Procedures Referred By Contact Refer red To Contact Diagnoses Lesion Pancreas Yasir Daley M.D., [facility] Procedures EUS Ph.D. Referral ID Status Reason Start Date Expiration Date Visits Requ ested Visits Authorized [id number] Closed 05/21/2020 05/21/2021 1 1 Encounter Details Date Type Department Care Team Description 05/28/2020 Hospital Division of Yasir Daley M.D., Ph.D. Lesion Pancreas Encounter Gastroenterology in Jayy Barajas, HEALTH OFFICER, MANAGER OF ENTERPRISE [address] [place] [address] ([facility]) [place], [place] [address] [place] [address] Social History Tobacco Use Types Packs/Day [...] Comments Blood Pressure 182/81 05/28/2020 12:30 PM IRON HANDLER Pulse 66 05/28/2020 12:32 PM IRON HANDLER Temperature 36.8 ??C (98.2 ??F) 05/28/2020 12:30 PM IRON HANDLER Respiratory Rate 14 05/28/2020 12:32 PM IRON HANDLER Oxygen Saturation 97% 05/28/2020 12:32 PM IRON HANDLER Inhaled Oxygen Concentration - - Weight - - Height - - Body Mass Index - - documented in this encounter Discharge Instructions AttachmentsThe following attachments cannot be sent through Care Everywhere. Clear Liquid Diet (Vietnamese)About Your Endoscopic Ultrasound (Vietnamese)documented in this encounter Medications at Time of Discharge Medication Sig Dispensed Refills Start Date End Date magnesium oxide (MAG-OX) Take 400 mg by 0 02/18/2 021 400 mg (241.3 mg mouth. Taking 4 magnesium) tablet tablets daily [id number]-[id number]-ma Take by mouth. 0 2020 tawana (Citracal-D3 [...] 10:09 AM Results for this ASPIRATION (INCLUDES IRON HANDLER procedu re are in CORE BIOPSIES the results section. MI IMMUNO STAIN PER Routine 05/28/2020 9:59 AM Re sults for this SPEC INITIAL AB IRON HANDLER procedure ar e in the results section. UPPER EUS Routine 05/28/2020 9:52 AM Lesion Pancreas Result s for this IRON HANDLER (HCC) procedure are i n the results section. ENDOSCOPIC Routine 05/28/2020 9:52 AM Lesion Pancreas ULTRASOUND (EUS) IRON HANDLER (HCC) documented in this encounter Results (ABNORMAL) Cytology Fine Needle Aspiration (including core biopsies) (05/28/2020 10:09 AM IRON HANDLER) Component Value Ref Test Analysis Performed At [facility] Method Time Signature 05/29/2020 DTL (A) 12:46 PM IRON HANDLER Participated in Aviva Maldonado, 05/29/2020 DTL the Interpretation M.Rafa-Patholog 12:46 PM y Resident IRON HANDLER (A) Report Curt Mireles M.D. [phone] 05/30/19 DTL electronically I verify that I have examined all relevant slides/ma terials 12:46 PM signed by for the specimen(s) and rendered or confirmed the diagnosis. IRON HANDLER (A) Gross Description A: Received 5 spray-fixed smears, 5 Diff-Quik sta ined 05/29/2020 DTL smears, and 6cc of blood-tinged fluid. 1 2:46 PM Specimen evaluated for adequacy on site. IRON HANDLER B: Received 5 spray-fixed smears, 5 Diff-Quik stained smears, and 5cc of blood-tinged fluid. Specimen evaluated for adequacy on site. (A) Source A. Pancreas, Neck, EUS fine needle aspiration 05/29/2020 DTL B. Lymph node, Celiac, EUS fine needle aspiration 12:46 PM (A) IRON HANDLER Addendum MMR Protein, IHC Only, Tumor (IHC) [...] Volume Laterality Aspirate 05/28/2020 10:09 (Pancreas) AM IRON HANDLER Aspirate (Lymph 05/28/2020 10:26 Node) AM IRON HANDLER Narrative This result has an attachment that is no t available. Wayne Bahena M.D. LAB SURG PATH ORDERABLES Performing Organization Address City/State/ZIP Code Phon e Number [facility] - [address] [place], [place] [address] [facility] [place] [address] [facility] [address] Mismatch Repair (MMR) Protein Immunohistochemistry Only, Tumor (05/28/2020 9:59 AM IRON HANDLER) Component Value Ref Test Analysis Performed Pathologis [...] 06/12/2020 DTL 9:48 AM CDT Tissue ID [id number] 06/12/2020 DTL 9:48 AM CDT Released By [...] in mismatch repair-proficient tumors (Science. 2017 Oct 21;357(1039):409-413 (PMID [id number]); J Clin Oncol. 2018 Mar 20:[id number] (PMID [id number])). For interpretation of therapeutic implications of these [...] and its performa nce characteristics determined by [facility] in a manner consistent with CLIA requirements. This test has not been cleared or approved by the U.S. Janie d and Drug Administration. Specimen Anatomical Collection Method Collection Time Receive d Time (Source) Location / / Volume Laterality Varies 05/28/2020 9:59 AM IRON HANDLER 11:08 AM CDT Narrative This result has an attachment that is no t available. Andrés Gill M.D. LAB GENETIC TESTING Performing Organization Address City/State/ZIP Code Phon e Number [facility] - [address] [place], [place] [address] [place] [address] [facility] [address] Upper EUS (05/28/2020 9:52 AM IRON HANDLER) Specimen (Source) Anatomical Collection Method Collection Time Re ceived Time Location / / Volume Laterality 05/28/2020 9:52 AM IRON HANDLER Impressions [facility] - 05/28/2020 10:59 AM IRON HANDLER Post-op Diagnoses: ? - A retroperitoneal mass was iden tified that appeared to extend from ? pancreatic neck. Fine needle aspi ration performed. Narrative [facility] - 05/28/2020 10:59 AM IRON HANDLER Gonda 2 GI Patient Name: Azeb العراقي [...] with the 22 gauge needl e. A perl programmer was present to ? evaluate the adequacy [...] Organization Address City/State/ZIP Code Phon e Number [employer] NA documented in this encounter Visit Diagnoses Diagnosis Lesion Pancreas documented in this encounter Administered Medications Inactive Administered Medications - up to 3 most recent administrations Medication Order MAR Action Action Date Dose Rate Site acetaminophen injection 1,000 New Bag 05/28/2020 11:47 AM 1,000 mg 400 mL/hr mg (OFIRMEV) IRON HANDLER 1,000 mg, intravenous, at 400 mL/hr, Administer over 15 Minutes, Once, On Laila 05/28/20 at 1145, For 1 dose, Restriction Criteria (Pharmacy will review and approve if criteria met): Unable to take or tolerate medications administered via the enteral route or orally (not just NPO) documented in this encounter
--- OUTSIDE RECORDS SUMMARY | 2021-11-15 12:27 | XMS_ITS | Encounter Summary ---
:1940 Author Organization [facility] Address [address] [place] [address] Care Team Providers Name Role Phone Unavailable Primary Care Provider Unavailable Encounter Details Date Type Department Care Team Description 05/25/2020 Clinical Support - Division of Bridgett Dimas [facility] Gastroenterology in [place], [place] [phone] [address] (Work) [place] [address] Social History Tobacco Use Types Packs/Day [...]
--- OUTSIDE RECORDS SUMMARY | 2021-11-15 12:27 | XMS_ITS | Encounter Summary ---
:1940 Author Organization [facility] Address [address] [place] [address] Care Team Providers Name Role Phone Unavailable Primary Care Provider Unavailable Encounter Details Date Type Department Care Team Description 05/21/2020 Documentation Division of Gastroenterology Ravinder Rai, in [facility] blossom [place] [address] [facility] [address] [place] [address] [place], [place] [phone] Social History Tobacco Use Types Packs/Day Years [...] 1:10 Referring Service /Self-Referred: Antonio Azevedo M.D. [address] [place] [phone] (Office) Indication: Pancreas mass no biopsy has been done, epigastric pain, abnormal weight loss, dry heaves History: Telephone call. Identified patient using two patient identifiers. Patient's home number is [phone]. 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 Never smoker. Alcohol Yes, very seldom. None since first week of February. FAMILY HISTORY Father: Leukemia Mother: of [place], colon cancer, Thyroid cancer, stomach cancer, uterine cancer, cataracts MGM: colon cancer Father???s sister: retinal detachment Faxes: [employer] [place], [place] p) [phone], (f) [phone] images. DIRECTOR documented in this encounter Plan of Treatment Not on filedocumented as of this encounter Visit Diagnoses Not on filedocumented in this encounter
--- OUTSIDE RECORDS SUMMARY | 2021-11-15 12:27 | XMS_ITS | Encounter Summary ---
:1940 Author Organization [facility] Address [address] [place] [address] Care Team Providers Name Role Phone Unavailable Primary Care Provider Unavailable Reason for Visit Reason Comments Med Refill Encounter Details Date Type Department Care Team Description 07/30/2018 Refill Department of Urology in Stephani Ervin APRN, Med Refill [facility] [address] [place] [address] [place] [address] (Wo rk) Social History Tobacco Use Types [...] times weekly Quantity: 30 Last Refill: Pharmacy: [place], [place] documented in this encounter Plan of Treatment Not on filedocumented as of this encounter Visit Diagnoses Not on filedocumented in this encounter
--- OUTSIDE RECORDS SUMMARY | 2021-11-15 12:27 | XMS_ITS | Encounter Summary ---
:1940 Author Organization [facility] Address [address] [place] [address] Care Team Providers Name Role Phone Unavailable Primary Care Provider Unavailable Reason for Referral Outpatient (Routine) - Closed Specialty Diagnoses / Procedures Referred By Contact Refer red To Contact Ophthalmology Delmar Mulligan M.D. [facility] [place] [facility] [address] [phone] Referral ID Status Reason Start Date Expiration Date Visits Requ ested Visits Authorized [id number] Closed 12/03/2018 12/03/2019 1 1 Reason for Visit Outpatient (Routine) - Closed Specialty Diagnoses / Procedures Referred By Contact Refer red To Contact Ophthalmology [facility] Mull[facility].D. [facility] [place] [facility] [address] [phone] Referral ID Status Reason Start Date Expiration Date Visits Requ ested Visits Authorized [id number] Closed 11/28/2018 11/28/2019 1 1 Encounter Details Date Type Department Care Team Description 12/03/2018 Office Visit Department of Delmar Mulligan Cataract Se nile Ophthalmology issa Parks Nuclear Sclerosis [place], [place] [address] Bilateral (Primary [address] [place] [address] Dx) [place] [phone] Social History Tobacco Use Types Packs/Day Years [...]
--- OUTSIDE RECORDS SUMMARY | 2021-11-15 12:27 | XMS_ITS | Encounter Summary ---
:1940 Author Organization [facility] Address [address] [place] [address] Care Team Providers Name Role Phone Unavailable Primary Care Provider Unavailable Encounter Details Date Type Department Care Team Description 05/21/2020 Ancillary Department of Panchito Daley s Procedure Radiology in Yasir Silva M.D., ([facility]) Camille, Ph.D. [address] [address] Social History Tobacco Use Types Packs/Day Years [...] for OUTSIDE CT ABDOMEN (most inpatients PM SANITATION INSPECTOR (HCC) this procedure AND OR PELVIS and all are in the outpatients) results section. documented in this encounter Results Interpretation of Outside CT Abdomen and or Pelvis (05/21/2020 3:14 PM SANITATION INSPECTOR) Anatomical Region Laterality Modality Abdomen, Pelvis, Abdominal RST LOS, Abdominal ARZ LOS, N/A Computed Tomography Abdominal FLA LOS, Other Specimen (Source) Anatomical Collection Method Collection Time Re ceived Time Location / / Volume Laterality 05/22/2020 9:51 AM SANITATION INSPECTOR Impressions 05/22/2020 10:14 AM SANITATION INSPECTOR 1. Mixed cystic and solid lesion appears [...] to accurately characterize. Narrative 05/22/2020 10:14 AM SANITATION INSPECTOR EXAM: ??INTERPRETATION OF OUTSIDE CT ABDOMEN AND [...] AP dimension of the abdomen is sever hnery narrowed, with only 6.5 cm between the [...]
--- OUTSIDE RECORDS SUMMARY | 2021-11-15 12:27 | XMS_ITS | Encounter Summary ---
:1940 Author Organization [facility] Address [address] [place] [address] Care Team Providers Name Role Phone Unavailable [...] AM Results for this SURGERY IMAGE EXAM MORTGAGE LOAN INTERVIEWER procedure are in the results section. documented in this encounter Results UPPER EUS-GI And General Surgery Image Exam (05/28/2020 9:25 AM MORTGAGE LOAN INTERVIEWER) Specimen (Source) Anatomical Collection Method Collection Time Re ceived Time Location / / Volume Laterality 05/28/2020 9:25 AM MORTGAGE LOAN INTERVIEWER Narrative IIMS - 05/28/2020 11:04 AM MORTGAGE LOAN INTERVIEWER This order has been created and auto-finalized [...]
--- OUTSIDE RECORDS SUMMARY | 2021-11-15 12:27 | XMS_ITS | Encounter Summary ---
:1940 Author Organization [facility] Address [address] [place] [address] Care Team Providers Name Role Phone Unavailable Primary Care Provider Unavailable Encounter Details Date Type Department Care Team Description 05/25/2020 Hospital Encounter Department of Panchito Daley Laboratory Medicine Yasir Silva M.D., (HC C) and Pathology, Ph.D. [facility] in [place], [place] [address] [place] [address] Social History Tobacco Use Types Packs/Day Years [...] Sig Dispensed Refills Start Date End Date ceqwiih-[id number]-dgyt-copper-manga Take by mouth. 0 n (Citracal-D3 Maximum [...] s Results for this (CA 19-9), S BRAIDING OPERATOR (HCC) procedure are i n the results section. PROTHROMBIN TIME (PT), Routine 05/25/2020 3:15 PM Lesion Pancr eas Results for this P BRAIDING OPERATOR (HCC) procedure are i n the results section. CBC WITH DIFFERENTIAL, Routine 05/25/2020 3:15 PM Lesion Pancr eas Results for this B BRAIDING OPERATOR (HCC) procedure are i n the results section. C-REACTIVE PROTEIN Routine 05/25/2020 3:15 PM Lesion Pancreas Results for this (CRP), S/P BRAIDING OPERATOR (HCC) procedure are i n the results section. COMPREHENSIVE Routine 05/25/2020 3:15 PM Lesion Pancreas Resul ts for this METABOLIC PANEL, S/P BRAIDING OPERATOR (HCC) procedu re are in the results section. documented in this encounter Results CRP (C-Reactive Protein) (05/25/2020 3:15 PM BRAIDING OPERATOR) P athologist Signature C-Reactive <3.0 <=8.0 mg/L 05/25/2020 DTL Protein (CRP), 4:04 PM BRAIDING OPERATOR S Specimen Anatomical Collection Method Collection Time Receive d Time (Source) Location / / Volume Laterality Blood (Blood, 05/25/2020 3:15 PM 05/26/19 21 3:37 Venous) BRAIDING OPERATOR PM BRAIDING OPERATOR Yasir Daley M.D., Ph.D. LAB BLOOD ADD-ON Performing Organization Address City/State/ZIP Code Phon e Number [facility] - [address] [place], [place] [address] [facility] [place] [address] [facility] [place] [address] (ABNORMAL) Prothrombin Time (PT) (05/25/2020 3:15 PM BRAIDING OPERATOR) Patholo gist Method Time Signature Prothrombin 13.5 (H) 9.4 - 12.5 05/25/2020 DTL Time, P sec 4:09 PM BRAIDING OPERATOR INR 1.2 0.9 - 1.1 05/25/2020 DTL 4:09 PM BRAIDING OPERATOR Comment: ----ADDITIONAL INFORMATION---- Standard intensity warfarin therapeutic range: 2.0 to 3.0 ?? High intensity warfarin therapeutic rang e: 2.5 to 3.5 Specimen Anatomical Collection Method Collection Time Receive d Time (Source) Location / / Volume Laterality Blood (Blood, 05/25/2020 3:15 PM 05/26/19 3:37 Venous) BRAIDING OPERATOR PM BRAIDING OPERATOR Yasir Daley M.D., Ph.D. LAB BLOOD ADD-ON Performing Organization Address City/[facility] Phon e Number [facility] - [address] [place], [place] [address] [facility] [place] [address] [facility] [place] [address] [facility] (ABNORMAL) Carbohydrate Antigen 19-9 (CA 19-9) (05/25/2020 3:15 PM BRAIDING OPERATOR) Patholo gist Method Time Signature Carbohydrate Ag 178 (H) <35 U/mL 05/25/2020 [facility] 19-9, S 6:45 PM BRAIDING OPERATOR Comment: ----ADDITIONAL INFORMATION---- The testing method is an immunoenzymatic assay manufactured by [employer]. and performed on the [employer] 800. ? Values obtained with different assay met hods or kits may be different and cannot be used inte rchangeably. ? Test results cannot be interpreted as ab solute evidence for the presence or absence of malignant disease. Specimen Anatomical Collection Method Collection Time Receive d Time (Source) Location / / Volume Laterality Blood (Blood, 05/25/2020 3:15 PM 05/26/19 5:56 Venous) BRAIDING OPERATOR PM BRAIDING OPERATOR Yasir Daley M.D., Ph.D. LAB BLOOD ADD-ON Performing Organization Address City/[facility] Phon e Number [facility] [address] [place], [place] [address] [facility] [place] [address] Laboratory Medicine and Pathology [address] [place] (ABNORMAL) Comprehensive Metabolic Panel (05/25/2020 3:15 PM BRAIDING OPERATOR) P athologist Signature Potassium, S 4.0 3.6 - 5.2 05/25/2020 DTL mmol/L 4:04 PM BRAIDING OPERATOR Sodium, S 141 135 - 145 05/25/2020 DTL mmol/L 4:04 PM BRAIDING OPERATOR Chloride, S 98 98 - 107 05/25/2020 DTL mmol/L 4:04 PM BRAIDING OPERATOR Bicarbonate, S 27 22 - 29 05/25/2020 DTL mmol/L 4:04 PM BRAIDING OPERATOR Anion Gap 16 (H) 7 - 15 05/25/2020 DTL 4:04 PM BRAIDING OPERATOR BUN (Blood Urea 12 6 - 21 05/25/2020 DTL Nitrogen), S mg/dL 4:04 PM BRAIDING OPERATOR Creatinine 1.02 0.59 - 05/25/2020 DTL 1.04 mg/dL 4:04 PM BRAIDING OPERATOR eGFR-Non 53 (L) >=60 05/25/2020 DTL Black/ mL/min/BSA 4:04 PM BRAIDING OPERATOR [place] Comment: ----ADDITIONAL INFORMATION---- Estimated GFR calculated using the 2009 CKD_EPI creatinine equation. eGFR-Black/ 61 >=60 mL/min/BSA 2020 4:04 PM BRAIDING OPERATOR DTL Comment: ----ADDITIONAL INFORMATION---- Estimated GFR calculated using the 2009 CKD_EPI creatinine equation. Calcium, Total, S 6.7 (L) 8.8 - 10.2 mg/dL 05/25/2020 4:04 PM BRAIDING OPERATOR DTL Glucose, S 93 70 - 140 mg/dL 05/25/2020 4:04 PM BRAIDING OPERATOR D TL Protein, Total, S 7.2 6.3 - 7.9 g/dL 05/25/2020 4:04 P M BRAIDING OPERATOR DTL Albumin, S 4.7 3.5 - 5.0 g/dL 05/25/2020 4:04 PM BRAIDING OPERATOR D TL Aspartate Aminotransferase 42 8 - 43 U/L 05/25/2020 4 :04 PM BRAIDING OPERATOR DTL (AST), S Alkaline Phosphatase, S 62 35 - 104 U/L 05/25/2020 4: 04 PM BRAIDING OPERATOR DTL Alanine Aminotransferase 42 7 - 45 U/L 05/25/2020 4:0 4 PM BRAIDING OPERATOR DTL (ALT), S Bilirubin, Total, S 0.3 <=1.2 mg/dL 05/25/2020 4:04 PM BRAIDING OPERATOR DTL Specimen Anatomical Collection Method Collection Time Receive d Time (Source) Location / / Volume Laterality Blood (Blood, 05/25/2020 3:15 PM 05/26/19 3:37 Venous) BRAIDING OPERATOR PM BRAIDING OPERATOR Yasir Daley M.D., Ph.D. LAB BLOOD ADD-ON Performing Organization Address City/State/ZIP Code Phon e Number [facility] - [address] [place], [place] [address] [facility] [place] [address] [facility] [place] [address] [facility] (ABNORMAL) CBC with Differential, Blood (05/25/2020 3:15 PM BRAIDING OPERATOR) [facility] gist Method Time Signature Hemoglobin 11.2 (L) 11.6 - 05/25/2020 DTL 15.0 g/dL 3:44 PM BRAIDING OPERATOR Hematocrit 34.2 (L) 35.5 - 05/25/2020 DTL 44.9 % 3:44 PM BRAIDING OPERATOR Erythrocytes 3.57 (L) 3.92 - 05/25/2020 DTL 5.13 3:44 PM BRAIDING OPERATOR x10(12)/L MCV 95.8 78.2 - 05/25/2020 DTL 97.9 fL 3:44 PM BRAIDING OPERATOR RBC Distrib Width 13.1 12.2 - 05/25/2020 DTL 16.1 % 3:44 PM BRAIDING OPERATOR Platelet Count 309 157 - 371 05/25/2020 DTL x10(9)/L 3:44 PM BRAIDING OPERATOR Leukocytes 7.9 3.4 - 9.6 05/25/2020 DTL x10(9)/L 3:44 PM BRAIDING OPERATOR Neutrophils 6.07 1.56 - 05/25/2020 DTL 6.45 3:44 PM BRAIDING OPERATOR x10(9)/L Lymphocytes 0.96 0.95 - 05/25/2020 DTL 3.07 3:44 PM BRAIDING OPERATOR x10(9)/L Monocytes 0.80 0.26 - 05/25/2020 DTL 0.81 3:44 PM BRAIDING OPERATOR x10(9)/L Eosinophils 0.03 0.03 - 05/25/2020 DTL 0.48 3:44 PM BRAIDING OPERATOR x10(9)/L Basophils 0.03 0.01 - 05/25/2020 DTL 0.08 3:44 PM BRAIDING OPERATOR x10(9)/L Specimen Anatomical Collection Method Collection Time Receive d Time (Source) Location / / Volume Laterality Blood (Blood, 05/25/2020 3:15 PM 05/26/19 3:37 Venous) BRAIDING OPERATOR PM BRAIDING OPERATOR Yasir Daley M.D., Ph.D. LAB BLOOD ADD-ON Performing Organization Address City/State/ZIP Code Phon e Number [facility] - [address] [place], [place] [address] [facility] [place] [address] [facility] [place] [address] documented in this encounter Visit Diagnoses Diagnosis Lesion Pancreas documented in this encounter Additional Health Concerns Infection Onset Date Last Indicated Resolved Time COVID19 Pending 05/25/2020 05/25/2020 05/26/2020 9:52 AM BRAIDING OPERATOR documented as of this encounter
--- OUTSIDE RECORDS SUMMARY | 2021-11-15 12:27 | XMS_ITS | Encounter Summary ---
:1940 Author Organization [facility] Address [address] [place] [address] Care Team Providers Name Role Phone Unavailable Primary Care Provider Unavailable Encounter Details Date Type Department Care Team Description 05/25/2020 Lab Department of Laboratory Conner Daley, Preprocedural Lab Exam Medicine and Pathology, Kasey, Ph.D. [facility], in [place], [place] [address] [place] [phone] Social History Tobacco Use Types Packs/Day [...] Lab Exam Results for this CORONAVIRUS-2, PCR COMPUTER SYSTEMS INFORMATION DIRECTOR procedure are in the results section. documented in this encounter Results SARS Coronavirus-2, PCR Asymptomatic (05/25/2020 2:33 PM COMPUTER SYSTEMS INFORMATION DIRECTOR) [facility] Method Time Signature SARS Swab, 05/26/2020 DTL Coronavirus-2 Nasopharynx 9:51 AM COMPUTER SYSTEMS INFORMATION DIRECTOR Source SARS Undetected Undetected 05/26/2020 DTL Coronavirus-2 9:51 AM COMPUTER SYSTEMS INFORMATION DIRECTOR , PCR Comment: SARS-CoV-2 RNA absent. This result does not rule out COVID-19 in the patient, as the sensitivity of the test depends o n the timing of the specimen collection and quality of the specimen. Result should be correlated with patient's history and clinical presentat ion. ----ADDITIONAL INFORMATION---- This test was developed and its performa nce characteristics determined by [facility] in a manner co nsistent with CLIA requirements. Independent review by the U.S. Food and Drug Administration is pending. Visit the CDC website: https://www.cdc.gov/coronavirus/ ?? for the most recent guidelines on Lee virus testing. Fact Sheet for Healthcare Providers: (https://www.[employer] S.A.P.I. de C.V..PSafe/it-mmfil es/ Provider_Fact_Sheet_for_[facility]_COVI D-19.pdf) Fact Sheet for Patients: (https://www.[employer] S.A.P.I. de C.V..PSafe/it-mmfil es/ Patient_Fact_Sheet_for_COVID-19.pdf) Specimen Anatomical Collection Method Collection Time Receive d Time (Source) Location / / Volume Laterality Varies 05/25/2020 2:33 PM 3:12 (Nasopharynx) COMPUTER SYSTEMS INFORMATION DIRECTOR PM COMPUTER SYSTEMS INFORMATION DIRECTOR Yasir Daley M.D., Ph.D. LAB MICROBIOLOGY - [facility] ORDERABLES Performing Organization Address City/State/ZIP Code Phon e Number [facility] - [address] [place], [place] [address] [facility] [place] [address] [facility] [address] documented in this encounter Visit Diagnoses Diagnosis Preprocedural Lab Exam documented in this encounter Additional Health Concerns Infection Onset Date Last Indicated Resolved Time COVID19 Pending 05/25/2020 05/25/2020 05/26/2020 9:52 AM COMPUTER SYSTEMS INFORMATION DIRECTOR documented as of this encounter
--- OUTSIDE RECORDS SUMMARY | 2021-11-15 12:27 | XMS_ITS | Encounter Summary ---
:1940 Author Organization [facility] Address [address] [place] [address] Care Team Providers Name Role Phone Unavailable Primary Care Provider Unavailable Reason for Visit Reason Comments Eye Exam Outpatient (Routine) - Closed Specialty Diagnoses / Procedures Referred By Contact Refer red To Contact Diagnoses Age Related Nuclear Cataract Bilateral Delmar Mulligan M.D. [address] [place] [phone] Referral ID Status Reason Start Date Expiration Date Visits Requ ested Visits Authorized [id number] Closed 01/06/2017 07/05/2017 1 1 Encounter Details Date Type Department Care Team Description 11/30/2017 Comprehensive Visit Department of Delmar Mulligan Dry Eye Syndrome Bilateral (Primary Dx); Ophthalmology in [place] Age Related Nuclear Cataract Bilateral [place], [place] [address] [place] [phone] Social History Tobacco Use Types Packs/Day Years [...]
--- OUTSIDE RECORDS SUMMARY | 2021-11-15 12:27 | XMS_ITS | Encounter Summary ---
:1940 Author Organization [facility] Address [address] [place] [address] Care Team Providers Name Role Phone Elsewhere, Pcp Primary Care Provider Unavailable Encounter Details Date Type Department Care Team Description 12/22/2016 Historical Ophthalmology [facility] Delmar Mulligan M.D. [address] [place], [place] [phone] (Wo rk) Social History [...] year. CE/ref CDM Reports - EYEGEN Id: [id number] Status: Fnl documented in this encounter Plan of Treatment Not on filedocumented as of this encounter Visit Diagnoses Not on filedocumented in this encounter Additional Health Concerns Infection Onset Date Last Indicated Resolved Time COVID19 Pending 05/25/2020 05/25/2020 05/26/2020 9:52 AM ACIDITY TESTER COVID19 Pending 01/22/2021 01/22/2021 01/22/2021 10:33 AM CDT COVID19 Pending 01/22/2021 01/23/2021 01/23/2021 10:57 PM CDT COVID19 07/19/2021 07/19/2021 08/08/2021 6:28 AM CDT documented as of this encounter Care Teams Foreclosure Field Inspector Relationship Specialty Start Date End Date Elsewhere, Pcp PCP - General Internal Medicine 09/24/21 documented as of this encounter
--- OUTSIDE RECORDS SUMMARY | 2021-11-15 12:27 | XMS_ITS | Encounter Summary ---
:1940 Author Organization [facility] Address [address] [place] [address] Care Team Providers Name Role Phone Unavailable Primary Care Provider Unavailable Reason for Referral Outpatient (Routine) - Closed Specialty Diagnoses / Procedures Referred By Contact Refer red To Contact Diagnoses Age Related Nuclear Cataract Bilateral Delmar Mulligan M.D. [address] [place] [phone] Referral ID Status Reason Start Date Expiration Date Visits Requ ested Visits Authorized [id number] Closed 01/06/2017 07/05/2017 1 1 Encounter Details Date Type Department Care Team Description 01/06/2017 Orders Only Department of Delmar Mulligan Age Related Nuclear Ophthalmology in [place] Cataract Bilateral [place], [place] [address], [place] [phone] Social History Tobacco Use Types Packs/Day Years [...]
--- OUTSIDE RECORDS SUMMARY | 2021-11-15 12:27 | XMS_ITS | Encounter Summary ---
:1940 Author Organization [facility] Address [address] [place] [address] Care Team Providers Name Role Phone Unavailable Primary Care Provider Unavailable Encounter Details Date Type Department Care Team Description 05/20/2020 Orders Only [facility] PCP [facility] Sa jeana Cantu M.D. [address] [place], [place] [phone] (Wo rk) Social History [...]
--- OUTSIDE RECORDS SUMMARY | 2021-11-15 12:27 | XMS_ITS | Encounter Summary ---
:1940 Author Organization [facility] Address [address] [place] [address] Care Team Providers Name Role Phone Unavailable Primary Care Provider Unavailable Encounter Details Date Type Department Care Team Description 02/23/2018 Clinical Communication Department of Delmar Mulligan, Ophthalmology in [place], [place] [address] [place] [phone] Social History Tobacco Use Types Packs/Day Years [...] 1:10 PM CST Appt today @ 1:30 TION INSPECTOR Telephone Encounter - Diana Victor - 02/23/2018 12:10 PM CST Reason for Communication: blurry vision Current Can Nursing/Provider leave a detailed message: yes Action Needed: patent is having new onset blurry vision. She thinks she is having some retinal tearing and would like to be seen today. Name of Medication (if relevant): TION INSPECTOR documented in this encounter Plan of Treatment Not on filedocumented as of this encounter Visit Diagnoses Not on filedocumented in this encounter
--- OUTSIDE RECORDS SUMMARY | 2021-11-15 12:28 | XMS_ITS | Encounter Summary ---
:1940 Author Organization [facility] Address [address] [place] [address] Care Team Providers Name Role Phone Unavailable Primary Care Provider Unavailable Encounter Details Date Type Department Care Team Description 12/28/2011 Hospital Encounter HX [facility] DERM Wilda Murphy M.D. [address] [facility], [facility] [address] [phone] (Wo rk) Social History Tobacco Use [...] Murphy M.D. - 12/28/2011 12:00 AM CDT [id number] CHIEF COMPLAINT/REASON FOR VISIT This 71-year-old female [...] MURPHY MD On: 01/04/2012 12:34 PM Source: [facility] MHSDOLBEYNONRADSYS Document Id: [id number] documented in this encounter Miscellaneous Notes Miscellaneous - Thiago Murphy M.D. - 12/28/2011 6:44 PM CDT Ambulatory Patient Summary [address] [id number] Visit Information Name: AZEB العراقي Current Date: [...] rck AKS face Your Goals/Additional instructions: Source: [facility] POWERCHART Document Id: [id number] Miscellaneous - Thiago Murphy M.D. - 12/28/2011 6:44 PM CDT Ambulatory Depart Summary [address] [address] Visit Information Name: AZEB العراقي Visit Date: [...] your provider for clarification. Additional Information: [facility] Document Id: [id number] Miscellaneous - Conversion, Historical Provider Ser - 12/28/2011 10:40 AM CDT Adult Lumber Racker Intake/History Adult Lumber Racker Intake/History Entered On: 12/28/2011 10:44 CDT Performed [...] DAWN CARNES; Reviewed Date: 12/28/201110:38 CDT Source: [facility] POWERCHART Document Id: [id number] documented in this encounter Plan of Treatment Not on filedocumented as of this encounter Visit Diagnoses Not on filedocumented in this encounter
--- OUTSIDE RECORDS SUMMARY | 2021-11-15 12:28 | XMS_ITS | Encounter Summary ---
:1940 Author Organization [facility] Address [address] [place] [address] Care Team Providers Name Role Phone Unavailable Primary Care Provider Unavailable Encounter Details Date Type Department Care Team Description 04/30/2009 Hospital Encounter HX [facility] Jeb Berry M.D. [address] [place], [place] [phone] (Wo rk) Social History [...]
--- OUTSIDE RECORDS SUMMARY | 2021-11-15 12:28 | XMS_ITS | Encounter Summary ---
:1940 Author Organization [facility] Address [address] [place] [address] Care Team Providers Name Role Phone Unavailable Primary Care Provider Unavailable Encounter Details Date Type Department Care Team Description 03/12/2009 Hospital Encounter HX [facility] Jeb Berry M.D. [address] [place], [place] [phone] (Wo rk) Social History [...]
--- OUTSIDE RECORDS SUMMARY | 2021-11-15 12:28 | XMS_ITS | Encounter Summary ---
:1940 Author Organization [facility] Address [address] [place] [address] Care Team Providers Name Role Phone Unavailable Primary Care Provider Unavailable Encounter Details Date Type Department Care Team Description 11/25/2009 Hospital Encounter HX [facility] DERM Wilda Murphy M.D. 18[address] [facility], [email or web address] [address] [address] (Wo rk) Social History Tobacco Use [...] Murphy M.D. - 11/25/2009 12:00 AM CDT [id number] CHIEF COMPLAINT / REASON FOR VISIT Full skin examination. HISTORY OF PRESENT ILLNESS This 69-year-old female is here for a full skin exam. She has a history of dysplastic nevi on her left abdomen in July 2002, right anterior shoulder June 2001, left back June 2001, and left lateral mid-back January 2000. 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 Today she has [...] with liquid nitrogen. 4) Seborrheic keratoses. 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 PLAN: She will follow up again in 1 year or sooner as needed. Thiago Murphy M.D. pas Electronically Signed By:THIAGO MURPHY MD On 12/02/2009 01:02 PM Source: [facility] MHSDOLBEYNONRADSYS Document Id: [id number] documented in this encounter Miscellaneous Notes Miscellaneous - Dawn Carnes L.P.N. - 11/25/2009 10:16 AM CDT Adult Grass Cutter Intake/History Adult Grass Cutter Intake/History Entered On: 11/25/2009 10:20 CDT Performed [...] CDT Dependent Habits Tobacco Use/Currently Using: No DEYVI, DAWN Crawford - 11/25/2009 10:16 CDT Allergies Source: [facility] POWERCHART Document Id: [id number] CDT!14 documented in this encounter Plan of Treatment Not on filedocumented as of this encounter Procedures Procedure Name Priority Date/Time Associated Comments Diagnosis ZZPATHOLOGY NON-SENIOR RD ENGINEER Routine 08/29/2007 12:00 Resu lts for this CYTOLOGY AM CDT procedure are i n the results section. ZZPATHOLOGY NON-SENIOR RD ENGINEER Routine 06/27/2006 12:00 Resu lts for this CYTOLOGY AM CDT procedure are i n the results section. documented in this encounter Results ZZPATHOLOGY NON-SENIOR RD ENGINEER CYTOLOGY (08/29/2007 12:00 AM CDT) Specimen (Source) Anatomical Location Collection Method / Collectio n Time Received Time / Laterality Volume 08/29/2007 [facility] - 02/29/20 11 3:12 PM TAI CHI INSTRUCTOR PATIENT IMAGES Choose the Image button to view related documents. Historical Provider LAB PATHOLOGY/CYTOLOGY ORDER DANIEL Performing Organization Address City/State/ZIP Code Phon e Number [facility] ZZPATHOLOGY NON-SENIOR RD ENGINEER CYTOLOGY (06/27/2006 12:00 AM CDT) Specimen (Source) Anatomical Location Collection Method / Collectio n Time Received Time / Laterality Volume 06/27/2006 [facility] - 02/29/20 11 3:11 PM TAI CHI INSTRUCTOR PATIENT IMAGES Choose the Image button to view related documents. Historical Provider LAB PATHOLOGY/CYTOLOGY ORDER DANIEL Performing Organization Address City/State/ZIP Code Phon e Number [facility] documented in this encounter Visit Diagnoses Not on filedocumented in this encounter
--- OUTSIDE RECORDS SUMMARY | 2021-11-15 12:28 | XMS_ITS | Encounter Summary ---
:1940 Author Organization [facility] Address [address] [place] [address] Care Team Providers Name Role Phone Unavailable Primary Care Provider Unavailable Encounter Details Date Type Department Care Team Description 08/17/2005 Hospital Encounter HX [facility] Jeb Berry M.D. [address] [place], [place] [phone] (Wo rk) Social History [...]
--- OUTSIDE RECORDS SUMMARY | 2021-11-15 12:28 | XMS_ITS | Encounter Summary ---
:1940 Author Organization [facility] Address [address] [place] [address] Care Team Providers Name Role Phone Unavailable Primary Care Provider Unavailable Encounter Details Date Type Department Care Team Description 12/17/2015 Hospital Encounter HX [facility] Jeb Berry M.D. [address] [place], [place] [phone] (Wo rk) Social History [...] Luu M.D. - 12/17/2015 7:52 AM CDT [id number] Delmar Luu M.D./sowmya Electronically Signed By: DELMAR LUU MD On: 12/25/2015 07:51 AM Source: [facility] MHSDOLBEYNONRADSYS Document Id: [id number] documented in this encounter Miscellaneous Notes Miscellaneous - Delmar Luu M.D. - 12/17/2015 9:26 AM CDT Ambulatory Discharge Medication List [facility] [address] [place] [id number] Visit Information Name: LEONARD العراقيLIRavinder GILLIAM [facility] Number: [id number] Visit Date: 12/17/2015 09:26:05 Attending [...] MD Signed On:17-DEC-2015 09:26:03 Additional Information: Source: [facility] POWERHullabalu Document Id: [id number] Miscellaneous - Delmar Luu M.D. - 12/17/2015 9:26 AM CDT Ambulatory Patient Summary [address] [phone] Visit Information Name: KEVINAZEB TAWANA [facility] Number: [id number] Current Date: 12/17/2015 09:26:05 Physicians [...] if you dont have one. Go to [email or web address] and click on Create Your Account. Then, follow the directions to complete the online form. Youll be asked for your [facility] number which you can find at the top of this document. Your Goals/Additional instructions: Source: [facility] POWERCHART Document Id: [id number] documented in this encounter Plan of Treatment Not on filedocumented as of this encounter Visit Diagnoses Not on filedocumented in this encounter
--- OUTSIDE RECORDS SUMMARY | 2021-11-15 12:28 | XMS_ITS | Encounter Summary ---
:1940 Author Organization [facility] Address [address] [place] [address] Care Team Providers Name Role Phone Unavailable Primary Care Provider Unavailable Encounter Details Date Type Department Care Team Description 08/29/2007 Hospital Encounter HX [facility] DERM Wilda Murphy M.D. [address] [facility], [facility] [address] [address] (Wo rk) Social History Tobacco Use [...]
--- OUTSIDE RECORDS SUMMARY | 2021-11-15 12:28 | XMS_ITS | Encounter Summary ---
:1940 Author Organization [facility] Address [address] [place] [address] Care Team Providers Name Role Phone Unavailable Primary Care Provider Unavailable Encounter Details Date Type Department Care Team Description 12/18/2015 Historical Ophthalmology [facility] Delmar Mulligan M.D. [address] [place], [place] [phone] (Wo rk) Social History [...] trial frame. #2 Choroidal nevus, left eye. CD Reports - EYEGEN Id: [id number] Status: Fnl documented in this encounter Plan of Treatment Not on filedocumented as of this encounter Visit Diagnoses Not on filedocumented in this encounter
--- OUTSIDE RECORDS SUMMARY | 2021-11-15 12:28 | XMS_ITS | Encounter Summary ---
:1940 Author Organization [facility] Address [address] [place] [address] Care Team Providers Name Role Phone Unavailable Primary Care Provider Unavailable Encounter Details Date Type Department Care Team Description 06/27/2006 Hospital Encounter HX [facility] INTERNMED Mikala Pemberton M.D. [address] [place], [place] [address] (Wo rk) Social History Tobacco Use [...]
--- OUTSIDE RECORDS SUMMARY | 2021-11-15 12:28 | XMS_ITS | Encounter Summary ---
:[address] [facility] Address [address] [place] [address] Care Team Providers Name Role Phone Unavailable Primary Care Provider Unavailable Encounter Details Date Type Department Care Team Description 12/14/2005 Hospital Encounter HX [facility] INTERNMED Mikala Pemberton M.D. [address] [place], [place] [address] (Wo rk) Social History Tobacco Use [...]
--- OUTSIDE RECORDS SUMMARY | 2021-11-15 12:28 | XMS_ITS | Encounter Summary ---
:1940 Author Organization [facility] Address [address] [place] [address] Care Team Providers Name Role Phone Unavailable Primary Care Provider Unavailable Encounter Details Date Type Department Care Team Description 01/15/2013 Hospital Encounter HX [facility] Jeb Berry M.D. [address] [place], [place] [phone] (Wo rk) Social History [...] : +1.75 +4.00 CYL : +1.00 +0.75 [place] : 175 30 ADD : +2.50 +2.50 ETTA GR - 01/15/2013 13:36 CDT ETTA GR 01/15/2013 13:36 CDT Right Eye Manifest Grid Date : 12/08/2010 CDT 12/28/2011 CDT 01/15/2013 CDT Performed by : [employer] : +1.75 +1.50 +1.00 CYL : +1.00 +1.00 +1.00 [place] : [phone] Visual Acuity Distance : 20/20, -1 20/25, -2 20/25 ADD : +2.50 +2.50 Visual Acuity Near : J-1+ J-1+ ETTA GR 01/15/2013 13:36 CDT ETTA GR 01/15/2013 13:36 CDT ETTA GR 01/15/2013 13:36 CDT Left Eye Manifest Grid Date : 12/28/2011 CDT 01/15/2013 CDT Performed by : [employer] : +4.00 +4.00 +4.25 CYL : +0.75 +0.75 +0.25 [place] : 33 30 30 Visual Acuity Distance [...] Other Medication Eye Drops Time : 13:52 LINE PATROLLER ETTA GR - 01/15/2013 13:36 CDT Source: [facility] POWERCHART Document Id: [id number]!120 documented in this encounter H&P Notes Delmar Luu M.D. - 01/15/2013 1:15 PM CDT [id number] CHIEF COMPLAINT/REASON FOR VISIT Routine ophthalmic exam. IMPRESSION/REPORT/PLAN 1. Enlarging cataracts both eyes. 2. Posterior vitreous detachment with no evidence of retinal tear. PLAN: Retinal detachment precautions reviewed. Update glasses prescription. Follow up in 1 year. Delmar Luu M.D./meena Electronically Signed By: DELMAR LUU MD On: 01/17/2013 08:00 AM Source: [facility] MHSDOLBEYNONRADSYS Document Id: [id number] documented in this encounter Miscellaneous Notes Miscellaneous - Delmar Luu M.D. - 01/15/2013 2:07 PM CDT Ambulatory Patient Summary [facility] [place] [facility] [address] [place] [address] Visit Information Name: AZEB العراقي [facility] Number: [id number] Current Date: 01/15/2013 14:07:53 [...] appointment detail needed. Your Goals/Additional instructions: Source: [facility] POWERCHART Document Id: [id number] Miscellaneous - Delmar Luu M.D. - 01/15/2013 2:07 PM CDT Ambulatory Depart Summary [facility] [place] [facility] [address] [place] [address] Visit Information Name: KEVIN AZEB TAWANA [facility] Number: [id number] Visit Date: 01/15/2013 14:07:53 [...] your provider for clarification. Additional Information: Source: [facility] POWERCHART Document Id: [id number] documented in this encounter Plan of Treatment Not on filedocumented as of this encounter Visit Diagnoses Not on filedocumented in this encounter
--- OUTSIDE RECORDS SUMMARY | 2021-11-15 12:28 | XMS_ITS | Encounter Summary ---
:1940 Author Organization [facility] Address [address] [place] [address] Care Team Providers Name Role Phone Unavailable Primary Care Provider Unavailable Encounter Details Date Type Department Care Team Description 02/01/2011 Hospital Encounter HX [facility] DERM Wilda Murphy M.D. 18[address] [facility], [facility] [address] [address] (Wo rk) Social History Tobacco Use [...] Murphy M.D. - 02/01/2011 12:00 AM CST [id number] CHIEF COMPLAINT / REASON FOR VISIT Full [...] MURPHY MD On: 02/09/2011 03:49 PM Source: [facility] MHSDOLBEYNONRADSYS Document Id: [id number] COATER documented in this encounter Miscellaneous Notes Miscellaneous - Dawn Carnes L.P.N. - 02/01/2011 10:48 AM CST Adult Tow Picker Intake/History Adult Tow Picker Intake/History Entered On: 02/01/2011 10:50 LENS COATER Performed On: 02/01/2011 10:48 LENS COATER by DAWN CARNES Intake Chief Complaint : FSE Temperature Oral : 36.6C(Converted to: 97.9DegF) Systolic Blood Pressure : 136mmHg Diastolic Blood Pressure : 82mmHg NIBP Mean : 100mmHg BP Location : Right upper extremity Actual Weight : 57.7kg(Converted to: 127lb 3oz) Dosing Weight Clinic : 57.70kg DAWN CARNES - 02/01/2011 10:48 LENS COATER Subjective Pain Symptoms : No DAWN CARNES - 02/01/2011 10:48 LENS COATER Dependent Habits Tobacco Use/Currently Using : No Smoking Status : Never smoker DAWN CARNES - 02/01/2011 10:48 LENS COATER Allergy Allergies (Active) NKA Estimated Onset Date: Unspecified ; Created By: DAWN CARNES; Reaction Status: Active ; Category: Drug ; Substance: NKA ; Type: Allergy ; Updated By: DAWN CARNES; Reviewed Date: 12/08/20109:05 CDT Source: [employer] Document Id: [id number] LENS COATER!15 COATER documented in this encounter Plan of Treatment Not on filedocumented as of this encounter Procedures Procedure Name Priority Date/Time Associated Diagnosis Comme nts SURGICAL PATHOLOGY Routine 02/01/2011 12:00 AM Re sults for this LENS COATER procedure are i n the results section. documented in this encounter Results Pathology Surgical Pathology (02/01/2011 12:00 AM LENS COATER) Specimen (Source) Anatomical Location Collection Method / Collectio n Time Received Time / Laterality Volume 02/01/2011 Narrative [facility] - 02/08/20 11 1:49 PM LENS COATER PATIENT IMAGES Choose the Image button to view related documents. Historical Provider LAB SURG PATH ORDERABLES Performing Organization Address City/State/ZIP Code Phon e Number [facility] documented in this encounter Visit Diagnoses Not on filedocumented in this encounter
--- OUTSIDE RECORDS SUMMARY | 2021-11-15 12:28 | XMS_ITS | Encounter Summary ---
:1940 Author Organization [facility] Address [address] [place] [address] Care Team Providers Name Role Phone Unavailable Primary Care Provider Unavailable Encounter Details Date Type Department Care Team Description 03/18/2014 Hospital Encounter HX [facility] DERM Wilda Murphy M.D. [address] [facility], [facility] [address] [address] (Wo rk) Social History Tobacco Use [...] Murphy M.D. - 03/18/2014 1:51 PM CST [id number] CHIEF COMPLAINT/REASON FOR VISIT Full skin exam [...] MURPHY MD On: 03/26/2014 10:30 AM Source: [facility] MHSDOLBEYNONRADSYS Document Id: [id number] ING INSPECTOR documented in this encounter Miscellaneous Notes Miscellaneous - Jazz Murphy M.D. - 03/19/2014 1:09 PM CST Ambulatory Patient Summary [facility] [address] [place], [place] [phone] Visit Information Name: AZEB العراقي [facility] Number: [id number] Current Date: 03/19/2014 [...] Topical, once a day New Routed to [facility] [place] [address] hydrochlorothiazide (hydrochlorothiazide) Oral, once a [...] appointment detail needed. Your Goals/Additional instructions: Source: [facility] POWERCHART Document Id: [id number] ING INSPECTOR Miscellaneous - Jazz Murphy M.D. - 03/19/2014 1:09 PM CST Ambulatory Discharge Medication List [facility] [address] [place] [phone] Visit Information Name: LEONARD العراقيLIRavinder GILLIAM [facility] Number: [id number] Visit Date: 03/19/2014 [...] Topical, once a day New Routed to [facility] [place] [address] hydrochlorothiazide (hydrochlorothiazide) Oral, once a day levothyroxine [...] MD Signed On:19-MAR-2014 13:09:32 Additional Information: Source: [facility] [employer] Document Id: [id number] ING INSPECTOR Miscellaneous - Shayy Mahmood, L.P.N. - 03/18/2014 2:38 PM CST Adult Burr Picker Intake/History Adult Burr Picker Intake/History Entered On: 03/18/2014 14:39 CUTTING INSPECTOR Performed On: 03/18/2014 14:38 CUTTING INSPECTOR by SHAYY MAHMOOD Intake Chief Complaint : full skin exam history of DN,AK,schamberg's disease SHAYY MAHMOOD - 03/18/2014 14:38 CUTTING INSPECTOR General Info Information Given By : Patient Languages : Kinyarwanda Is Patient Female and 13-50 no hysterectomy : No SHAYY MAHMOOD - 03/18/2014 14:38 CUTTING INSPECTOR Subjective Pain Symptoms : No SHAYY MAHMOOD - 03/18/2014 14:38 CUTTING INSPECTOR Dependent Habits Tobacco Use/Currently Using : No Smoking Status : Never smoker SHAYY MAHMOOD - 03/18/2014 14:38 CUTTING INSPECTOR Tobacco Use Grid Last Use : never SHAYY MAHMOOD - 03/18/2014 14:38 CUTTING INSPECTOR ID Screen Travel Within Last 21 Days : SHAYY Julien 03/18/2014 14:38 CUTTING INSPECTOR Source: [facility] [employer]CHART Document Id: [id number] CUTTING INSPECTOR!17 ING INSPECTOR documented in this encounter Plan of Treatment Not on filedocumented as of this encounter Visit Diagnoses Not on filedocumented in this encounter
--- OUTSIDE RECORDS SUMMARY | 2021-11-15 12:28 | XMS_ITS | Encounter Summary ---
:1940 Author Organization [facility] Address [address] [place] [address] Care Team Providers Name Role Phone Unavailable Primary Care Provider Unavailable Encounter Details Date Type Department Care Team Description 01/17/2014 Historical Ophthalmology [facility] OPH Delmar Mulligan M.D. [address] [place], [place] [phone] (Wo rk) Social History [...] left eye. CDM Reports - EYEGEN Id: [id number] Status: Fnl documented in this encounter Plan of Treatment Not on filedocumented as of this encounter Visit Diagnoses Not on filedocumented in this encounter
--- OUTSIDE RECORDS SUMMARY | 2021-11-15 12:28 | XMS_ITS | Encounter Summary ---
:1940 Author Organization [facility] Address [address] [place] [address] Care Team Providers Name Role Phone Unavailable Primary Care Provider Unavailable Encounter Details Date Type Department Care Team Description 01/19/2015 Historical Ophthalmology [facility] Delmar Mulligan M.D. [address] [place], [place] [phone] (Wo rk) Social History [...] left eye. CDM Reports - EYEGEN Id: [id number] Status: Fnl documented in this encounter Plan of Treatment Not on filedocumented as of this encounter Visit Diagnoses Not on filedocumented in this encounter
--- OUTSIDE RECORDS SUMMARY | 2021-11-15 12:28 | XMS_ITS | Encounter Summary ---
:1940 Author Organization [facility] Address [address] [place] [address] Care Team Providers Name Role Phone Unavailable Primary Care Provider Unavailable Encounter Details Date Type Department Care Team Description 03/05/2010 Hospital Encounter HX [facility] OWOC DERM Wilda Murphy M.D. [address] [facility], [facility] [address] [address] (Wo rk) Social History Tobacco Use [...] Murphy M.D. - 03/05/2010 12:00 AM CST [id number] HISTORY OF PRESENT ILLNESS This 70-year-old female [...] MURPHY MD On 03/30/2010 03:23 PM Source: [facility] MHSDOLBEYNONRADSYS Document Id: [id number] OGRAPHER APPRENTICE documented in this encounter Miscellaneous Notes Miscellaneous - Dawn Carnes L.P.N. - 03/05/2010 2:20 PM CST Ambulatory Vitals Height Weight Ambulatory Vitals Height Weight Entered On: 03/05/2010 14:22 PHOTOGRAPHER APPRENTICE Performed On: 03/05/2010 14:20 PHOTOGRAPHER APPRENTICE by DAWN CARNES Vitals/Ht/Wt Systolic Blood Pressure: 136mmHg Diastolic Blood Pressure: 82mmHg NIBP Mean: 100mmHg BP Location: Right upper extremity DAWN CARNES - 03/05/2010 14:20 PHOTOGRAPHER APPRENTICE Source: [employer] Document Id: [id number] PHOTOGRAPHER APPRENTICE!6 OGRAPHER APPRENTICE Miscellaneous - Dawn Carnes L.P.N. - 03/05/2010 2:17 PM CST Adult Hot Mill Shearer Intake/History Adult Hot Mill Shearer Intake/History Entered On: 03/05/2010 14:19 PHOTOGRAPHER APPRENTICE Performed On: 03/05/2010 14:17 PHOTOGRAPHER APPRENTICE by DAWN CARNES Intake Chief Complaint: Recheck nose Systolic Blood Pressure: 148mmHg (HI) Diastolic Blood Pressure: 84mmHg NIBP Mean: 105mmHg BP Location: Right upper extremity DAWN CARNES - 03/05/2010 14:17 PHOTOGRAPHER APPRENTICE Subjective Pain Symptoms: No DAWN CARNES - 03/05/2010 14:17 PHOTOGRAPHER APPRENTICE Dependent Habits Tobacco Use/Currently Using: No DAWN CARNES - 03/05/2010 14:17 PHOTOGRAPHER APPRENTICE Allergies Allergies (Active) NKA Estimated Onset Date: Unspecified ; Created By: DAWN CARNES; Reaction Status: Active ; Category: Drug ; Substance: NKA ; Type: Allergy ; Updated By: DAWN CARNES; Reviewed Date: 11/25/200910:20 CDT Source: [employer] Document Id: [id number] PHOTOGRAPHER APPRENTICE!11 OGRAPHER APPRENTICE documented in this encounter Plan of Treatment Not on filedocumented as of this encounter Procedures Procedure Name Priority Date/Time Associated Diagnosis Comme nts SURGICAL PATHOLOGY Routine 03/05/2010 12:00 AM Re sults for this PHOTOGRAPHER APPRENTICE procedure are i n the results section. documented in this encounter Results Pathology Surgical Pathology (03/05/2010 12:00 AM PHOTOGRAPHER APPRENTICE) Specimen (Source) Anatomical Location Collection Method / Collectio n Time Received Time / Laterality Volume 03/05/[address] [facility] - 03/23/20 10 10:00 AM PHOTOGRAPHER APPRENTICE PATIENT IMAGES Choose the Image button to view related documents. Historical Provider LAB SURG PATH ORDERABLES Performing Organization Address City/State/ZIP Code Phon e Number [facility] documented in this encounter Visit Diagnoses Not on filedocumented in this encounter
--- OUTSIDE RECORDS SUMMARY | 2021-11-15 12:28 | XMS_ITS | Encounter Summary ---
:1940 Author Organization [facility] Address [address] [place] [address] Care Team Providers Name Role Phone Unavailable Primary Care Provider Unavailable Encounter Details Date Type Department Care Team Description 08/21/2007 Hospital Encounter HX [facility] OWOC INTERNMED Georgia Moy M.D. [address] [place] [address] (Wo rk) Social History Tobacco Use Types [...]
--- OUTSIDE RECORDS SUMMARY | 2021-11-15 12:28 | XMS_ITS | Encounter Summary ---
:1940 Author Organization [facility] Address [address] [place] [address] Care Team Providers Name Role Phone Unavailable Primary Care Provider Unavailable Encounter Details Date Type Department Care Team Description 03/06/2012 Hospital Encounter HX [facility] OWOC DERM Wilda Murphy M.D. [address] [facility], [facility] [address] [address] (Wo rk) Social History Tobacco Use [...] Comments Blood Pressure 118/74 03/06/2012 3:45 PM SOLAR CREW MEMBER Pulse - - Temperature - - Respiratory [...] Murphy M.D. - 03/06/2012 3:10 PM CST [id number] Document Contains Addenda This 72-year-old female is [...] she gets home from her cruise to [place] in April and I told her that was fine. She will follow up again in July for a recheck. ADDENDUM: Patient also states she sometimes notes that her neck is very itchy. On exam the skin of the neck is quite dry. We talked about moisturizing. Thiago Murphy M.D./[facility] Electronically Signed By: THIAGO MURPHY MD On: 03/11/2012 09:56 PM Source: [facility] MHSDOLBEYNONRADSYS Document Id: [id number] R CREW MEMBER documented in this encounter Miscellaneous Notes Miscellaneous - Mayra Robertson C.MMaia - 04/26/2012 4:28 PM CST General Message--Derm From: MAYRA ROBERTSON ( Dermatology Nurse) Sent: 04/26/2012 16:28:44 SOLAR CREW MEMBER Subject: General Message--Derm Patient called asking a few questions about using make up while she is doing her Efudex treatment. Advised it ok to use. Pt to call if any other questions. Source: [facility] POWERCHART Document Id: [id number] Miscellaneous - Clinton Crespo CChicoMChicoAChico - 03/06/2012 3:45 PM CST Adult Satellite Tv Technician Installer Intake/History Adult Satellite Tv Technician Installer Intake/History Entered On: 03/06/2012 15:46 SOLAR CREW MEMBER Performed On: 03/06/2012 15:45 SOLAR CREW MEMBER by CLINTON CRESPO Intake Chief Complaint : f/u ak's gace Systolic Blood Pressure : 118mmHg Diastolic Blood Pressure : 74mmHg NIBP Mean : 89mmHg BP Location : Right upper extremity Blood Pressure Cuff Size : Regular CLINTON CRESPO - 03/06/2012 15:45 SOLAR CREW MEMBER Subjective Pain Symptoms : No CLINTON CRESPO - 03/06/2012 15:45 SOLAR CREW MEMBER Dependent Habits Tobacco Use/Currently Using : No Smoking Status : Never smoker CLINTON CRESPO - 03/06/2012 15:45 SOLAR CREW MEMBER Allergy Allergies (Active) NKA Estimated Onset Date: Unspecified ; Created By: DAWN CARNES; Reaction Status: Active ; Category: Drug ; Substance: NKA ; Type: Allergy ; Updated By: DAWN CARNES; Reviewed Date: 03/06/201215:43 SOLAR CREW MEMBER Source: [facility] POWERCHART Document Id: [id number] R CREW MEMBER documented in this encounter Plan of Treatment Not on filedocumented as of this encounter Visit Diagnoses Not on filedocumented in this encounter
--- OUTSIDE RECORDS SUMMARY | 2021-11-15 12:28 | XMS_ITS | Encounter Summary ---
:1940 Author Organization [facility] Address [address] [place] [address] Care Team Providers Name Role Phone Unavailable [...]
--- OUTSIDE RECORDS SUMMARY | 2021-11-15 12:28 | XMS_ITS | Encounter Summary ---
:1940 Author Organization [facility] Address [address] [place] [address] Care Team Providers Name Role Phone Unavailable Primary Care Provider Unavailable Encounter Details Date Type Department Care Team Description 09/10/2007 Hospital Encounter HX NO MAPPING Jeferson Viramontes M.D. [address] [place], [place] [phone] (Wo rk) Social History Tobacco [...]
--- OUTSIDE RECORDS SUMMARY | 2021-11-15 12:28 | XMS_ITS | Encounter Summary ---
:1940 Author Organization [facility] Address [address] [place] [address] Care Team Providers Name Role Phone Unavailable Primary Care Provider Unavailable Encounter Details Date Type Department Care Team Description 08/29/2007 Hospital Encounter HX [facility] OWOC INTERNMED Mikala Pemberton M.D. [address] [place], [place] [address] (Wo rk) Social History Tobacco Use [...]
--- OUTSIDE RECORDS SUMMARY | 2021-11-15 12:28 | XMS_ITS | Encounter Summary ---
:1940 Author Organization [facility] Address [address] [place] [address] Care Team Providers Name Role Phone Unavailable Primary Care Provider Unavailable Encounter Details Date Type Department Care Team Description 12/08/2010 Hospital Encounter HX [facility] OWOC Jeb Berry M.D. [address] [place], [place] [phone] (Wo rk) Social History [...] Glasses/LE Sphere: +2.50 +4.00 CYL: +1.00 +0.75 Milton: 165 40 ADD: +2.50 +2.50 KARI ACHARYA - 12/08/2010 9:09 CDT KARI ACHARYA - 12/08/2010 9:09 CDT Right Eye Manifest Grid Date: 12/08/2010 CDT Sphere: +1.75 CYL: +1.00 [place]: 175 Visual Acuity Distance: 20/20, -1 ADD: +2.50 Visual Acuity Near: J-1+ KARI ACHARYA - 12/08/2010 9:09 CDT Left Eye Manifest Grid Sphere: +4.00 CYL: +0.75 Milton: 33 Visual Acuity Distance: 20/20, -1 ADD: [...] drop Phenylephrine 2.5% Eye Drops Time: 9:39 DIE HARDENER Tropicamide 0.5% Eye Drops Eye: Both eyes Tropicamide 0.5% Eye Drops Amount: One drop Tropicamide 10% Eye Drops Time: 9:39 DIE HARDENER KARI ACHARYA - 12/08/2010 9:09 CDT Source: [facility] POWERCHART Document Id: [id number] CDT!68 Delmar Luu M.D. - 12/08/2010 12:00 AM CDT [id number] CHIEF COMPLAINT / REASON FOR VISIT Routine exam. IMPRESSION / REPORT / PLAN 1) Cataracts. 2) Posterior vitreous detachment with vitreous floaters, right eye greater than left. No evidence of retinal tears. PLAN: Update glasses. Return to clinic in 1 year for complete exam. Delmar Luu M.D. daa Electronically Signed By: DELMAR LUU MD On: 12/13/2010 07:45 AM Source: [facility] MHSDOLBEYNONRADSYS Document Id: [id number] documented in this encounter Miscellaneous Notes Miscellaneous - Delmar Luu M.D. - 12/08/2010 9:59 AM CDT Ambulatory Patient Summary [facility] [address] [place] [address] Visit Information Name: AZEB العراقي Current Date: [...] FSE 12 MONTHS Your Goals/Additional instructions: Source: [facility] POWERCHART Document Id: [id number] Electronically signed by Gerry [facility] [employer] [id number] at 08/28/2016 2:52 PM CDT Miscellaneous - Delmar Luu M.D. - 12/08/2010 9:59 AM CDT Ambulatory Depart Summary [address] [address] Visit Information Name: AZEB العراقي Current Date: [...] Misc Prescription (Misc Prescription) Additional Information: Source: [facility] POWERCHART Document Id: [id number] Electronically signed by Conversion, [facility] [employer] [id number] at 08/28/2016 2:52 PM CDT documented in this encounter Plan of Treatment Not on filedocumented as of this encounter Visit Diagnoses Not on filedocumented in this encounter
--- OUTSIDE RECORDS SUMMARY | 2021-11-15 12:28 | XMS_ITS | Encounter Summary ---
:1940 Author Organization [facility] Address [address] [place] [address] Care Team Providers Name Role Phone Unavailable Primary Care Provider Unavailable Encounter Details Date Type Department Care Team Description 12/18/2015 Hospital Encounter HX [facility] OWOC Jeb Berry M.D. [address] [place], [place] [phone] (Wo rk) Social History [...] Luu M.D. - 12/18/2015 3:21 PM CDT [id number] The documentation for this visit is available in [employer] IMPRESSION/REPORT/PLAN #1 Cataracts, nuclear both eyes. Glare testing today without evidence of visually impairing glare and equivocal improvement with trial frame. #2 Choroidal nevus, left eye. Stable, Plan: Optional change glasses. F/u one year. n/c Delmar Luu M.D./se Electronically Signed By: DELMAR LUU MD On: 12/25/2015 07:50 AM Source: [facility] MHSDOLBEYNONRADSYS Document Id: [id number] documented in this encounter Miscellaneous Notes Miscellaneous - Delmar Luu M.D. - 12/18/2015 4:15 PM CDT Ambulatory Patient Summary [facility] [address] [place] [phone] Visit Information Name: AZEB العراقي [facility] Number: [id number] Current Date: 12/18/2015 16:15:14 Physicians [...] if you dont have one. Go to [email or web address] and click on Create Your Account. Then, follow the directions to complete the online form. Youll be asked for your [facility] number which you can find at the top of this document. Your Goals/Additional instructions: Source: [employer] Document Id: [id number] Miscellaneous - Delmar Luu M.D. - 12/18/2015 4:15 PM CDT Ambulatory Discharge Medication List [facility] [address] [place], [place] [phone] Visit Information Name: AZEB العراقي [facility] Number: [id number] Visit Date: 12/18/2015 16:15:14 Attending [...] MD Signed On:18-DEC-2015 16:15:13 Additional Information: Source: [employer] Document Id: [id number] documented in this encounter Plan of Treatment Not on filedocumented as of this encounter Visit Diagnoses Not on filedocumented in this encounter
--- OUTSIDE RECORDS SUMMARY | 2021-11-15 12:28 | XMS_ITS | Encounter Summary ---
:1940 Author Organization [facility] Address [address] [place] [address] Care Team Providers Name Role Phone Unavailable Primary Care Provider Unavailable Encounter Details Date Type Department Care Team Description 07/24/2012 Hospital Encounter HX [facility] OWOC DERM Wilda Murphy M.D. [address] [facility], [facility] [address] [address] (Wo rk) Social History Tobacco Use [...] Murphy M.D. - 07/24/2012 9:26 AM CDT [id number] CHIEF COMPLAINT/REASON FOR VISIT Followup Efudex. HISTORY [...] MURPHY MD On: 08/02/2012 10:50 AM Source: [facility] MHSDOLBEYNONRADSYS Document Id: [id number] documented in this encounter Miscellaneous Notes Miscellaneous - Mayra Robertson, C.M.AChico - 07/24/2012 9:46 AM CDT Adult Home Health Aide Intake/History Adult Home Health Aide Intake/History Entered On: 07/24/2012 9:49 CDT Performed [...] Information Given By : Patient Languages : New Zealander MAYRA ROBERTSON - 07/24/2012 9:46 CDT Subjective Pain Symptoms : No MAYRA ROBERTSON - 07/24/2012 9:46 CDT Dependent Habits Tobacco Use/Currently Using : No Smoking Status : Never smoker MAYRA ROBERTSON - 07/24/2012 9:46 CDT Tobacco Use Grid Last Use : never MAYRA ROBERTSON - 07/24/2012 9:46 CDT Source: [facility] POWERCHART Document Id: [id number] CDT!19 documented in this encounter Plan of Treatment Not on filedocumented as of this encounter Visit Diagnoses Not on filedocumented in this encounter
--- OUTSIDE RECORDS SUMMARY | 2021-11-15 12:28 | XMS_ITS | Encounter Summary ---
:1940 Author Organization [facility] Address [address] [place] [address] Care Team Providers Name Role Phone Unavailable Primary Care Provider Unavailable Encounter Details Date Type Department Care Team Description 12/13/2006 Hospital Encounter HX [facility] OWOC Jeb Berry M.D. [address] [place], [place] [phone] (Wo rk) Social History [...]
--- OUTSIDE RECORDS SUMMARY | 2021-11-15 12:28 | XMS_ITS | Encounter Summary ---
:1940 Author Organization [facility] Address [address] [place] [address] Care Team Providers Name Role Phone Unavailable Primary Care Provider Unavailable Encounter Details Date Type Department Care Team Description 01/10/2008 Hospital Encounter HX [facility] OWOC Maxwell Virgen M.D. [address] [place], [place] [phone] (Wo rk) Social History [...]
--- OUTSIDE RECORDS SUMMARY | 2021-11-15 12:28 | XMS_ITS | Encounter Summary ---
:1940 Author Organization [facility] Address [address] [place] [address] Care Team Providers Name Role Phone Unavailable Primary Care Provider Unavailable Encounter Details Date Type Department Care Team Description 07/13/2006 Hospital Encounter HX [facility] OWOC SURGERY Mireya Stanton M.D. [address] [place] [address] (Wo rk) Social History Tobacco Use Types [...]
--- OUTSIDE RECORDS SUMMARY | 2021-11-15 12:28 | XMS_ITS | Encounter Summary ---
:1940 Author Organization [facility] Address [address] [place] [address] Care Team Providers Name Role Phone Unavailable Primary Care Provider Unavailable Encounter Details Date Type Department Care Team Description 01/19/2015 Hospital Encounter HX [facility] OWOC Jeb Berry M.D. [address] [place], [place] [phone] (Wo rk) Social History [...] Luu M.D. - 01/19/2015 12:45 PM CDT [id number] The documentation for this visit is available in [employer] IMPRESSION/REPORT/PLAN #1 Cataracts, nuclear both eyes. #2 Choroidal nevus, left eye. Stable, Plan: Update glasses. U/v protection. F/u one year. CE/ref Delmar Luu M.D./se Electronically Signed By: DELMAR LUU MD On: 01/22/2015 07:56 AM Source: [facility] MHSDOLBEYNONRADSYS Document Id: [id number] documented in this encounter Miscellaneous Notes Miscellaneous - Delmar Luu M.D. - 01/19/2015 1:42 PM CDT Ambulatory Patient Summary [facility] [address] [place], [place] [phone] Visit Information Name: KEVIN AZEB TAWANA [facility] Number: [id number] Current Date: 01/19/2015 13:42:48 Physicians [...] if you dont have one. Go to [email or web address] and click on Create Your Account. Then, follow the directions to complete the online form. Youll be asked for your [facility] number which you can find at the top of this document. Your Goals/Additional instructions: Source: [facility] POWERCHART Document Id: [id number] Miscellaneous - Delmar Luu M.D. - 01/19/2015 1:42 PM CDT Ambulatory Discharge Medication List [facility] [address] [place] [phone] Visit Information Name: AZEB العراقي [facility] Number: [id number] Visit Date: 01/19/2015 13:42:47 Attending [...] MD Signed On:19-JAN-2015 13:42:26 Additional Information: Source: [facility] POWERCHART Document Id: [id number] documented in this encounter Plan of Treatment Not on filedocumented as of this encounter Visit Diagnoses Not on filedocumented in this encounter
--- OUTSIDE RECORDS SUMMARY | 2021-11-15 12:28 | XMS_ITS | Encounter Summary ---
:1940 Author Organization [facility] Address [address] [place] [address] Care Team Providers Name Role Phone Unavailable [...]
--- OUTSIDE RECORDS SUMMARY | 2021-11-15 12:28 | XMS_ITS | Encounter Summary ---
:1940 Author Organization [facility] Address [address] [place] [address] Care Team Providers Name Role Phone Unavailable Primary Care Provider Unavailable Encounter Details Date Type Department Care Team Description 09/10/2007 Hospital Encounter HX [facility] OWOC INTERNMED Mikala Pemberton M.D. [address] [place], [place] [address] (Wo rk) Social History Tobacco Use [...]
--- OUTSIDE RECORDS SUMMARY | 2021-11-15 12:28 | XMS_ITS | Encounter Summary ---
:1940 Author Organization [facility] Address [address] [place] [address] Care Team Providers Name Role Phone Unavailable Primary Care Provider Unavailable Encounter Details Date Type Department Care Team Description 03/11/2008 Hospital Encounter HX [facility] OWOC Jeb Berry M.D. [address] [place], [place] [phone] (Wo rk) Social History [...]
--- OUTSIDE RECORDS SUMMARY | 2021-11-15 12:28 | XMS_ITS | Encounter Summary ---
:1940 Author Organization [facility] Address [address] [place] [address] Care Team Providers Name Role Phone Unavailable [...]
--- OUTSIDE RECORDS SUMMARY | 2021-11-15 12:28 | XMS_ITS | Encounter Summary ---
:1940 Author Organization [facility] Address [address] [place] [address] Care Team Providers Name Role Phone Unavailable Primary Care Provider Unavailable Encounter Details Date Type Department Care Team Description 12/28/2011 Hospital Encounter [facility] Jeb Berry M.D. [address] [place], [place] [phone] (Wo rk) Social History [...] : +1.75 +1.50 CYL : +1.00 +1.00 Jackson : [phone] Visual Acuity Distance : 20/20, -1 20/25, -2 ADD : +2.50 Visual Acuity Near : J-1+ MANUELA LOPEZ - 12/28/2011 9:40 CDT MANUELA LOPEZ - 12/28/2011 9:40 CDT Left Eye Manifest Grid Date : 12/28/2011 CDT Performed by : Niki Sphere : +4.00 +4.00 CYL : +0.75 +0.75 Jackson : 33 30 Visual Acuity Distance : [...] Phenylephrine 2.5% Eye Drops Time : 9:54 SUPERVISOR FERTILIZER Tropicamide 1% Eye Drops Eye : Both eyes Tropicamide 1% Eye Drops Time : 9:54 SUPERVISOR FERTILIZER MANUELA LOPEZ - 12/28/2011 9:40 CDT Source: [facility] POWERCHART Document Id: [id number] Delmar Luu M.D. - 12/28/2011 12:00 AM CDT [id number] CHIEF COMPLAINT / REASON FOR VISIT Routine exam IMPRESSION / REPORT / PLAN 1) Enlarging cataracts vision stable 2) Choroidal nevus left eye unchanged PLAN: Optional change in glasses. Follow up in 1 year. Delmar Luu M.D. bft Electronically Signed By: DELMAR LUU MD On: 12/30/2011 07:53 AM Source: [facility] [id number] Document Id: [id number] documented in this encounter Miscellaneous Notes Miscellaneous - Delmar Luu M.D. - 12/28/2011 10:17 AM CDT Ambulatory Patient Summary [facility] [address] [place] [address] [id number] Visit Information Name: AZEB العراقي Current Date: [...] GROWING PER PT Your Goals/Additional instructions: Source: [facility] POWERCHART Document Id: [id number] Miscellaneous - Delmar Luu M.D. - 12/28/2011 10:17 AM CDT Ambulatory Depart Summary [facility] [address] [place] [id number] Visit Information Name: KEVIN AZEB JANE Visit Date: 12/28/2011 10:17:04 Attending Provider: DELMAR LUU MD Primary Care Provider: ELLIE MARCH MD KEVIN AZEB TAWANA has been given the following list [...] your provider for clarification. Additional Information: Source: [facility] POWERCHART Document Id: [id number] documented in this encounter Plan of Treatment Not on filedocumented as of this encounter Visit Diagnoses Not on filedocumented in this encounter
--- OUTSIDE RECORDS SUMMARY | 2021-11-15 12:28 | XMS_ITS | Encounter Summary ---
:1940 Author Organization [facility] Address [address] [place] [address] Care Team Providers Name Role Phone Unavailable Primary Care Provider Unavailable Encounter Details Date Type Department Care Team Description 06/01/2009 Hospital Encounter HX [facility] Jeb Berry M.D. [address] [place], [place] [phone] (Wo rk) Social History [...]
--- OUTSIDE RECORDS SUMMARY | 2021-11-15 12:28 | XMS_ITS | Encounter Summary ---
:1940 Author Organization [facility] Address [address] [place] [address] Care Team Providers Name Role Phone Unavailable Primary Care Provider Unavailable Encounter Details Date Type Department Care Team Description 12/17/2015 Historical Ophthalmology [facility] Delmar Mulligan M.D. [address] [place], [place] [phone] (Wo rk) Social History [...] left eye. CDM Reports - EYEGEN Id: [id number] Status: Fnl documented in this encounter Plan of Treatment Not on filedocumented as of this encounter Visit Diagnoses Not on filedocumented in this encounter
--- OUTSIDE RECORDS SUMMARY | 2021-11-15 12:28 | XMS_ITS | Encounter Summary ---
:1940 Author Organization [facility] Address [address] [place] [address] Care Team Providers Name Role Phone Unavailable Primary Care Provider Unavailable Encounter Details Date Type Department Care Team Description 01/17/2014 Hospital Encounter HX [facility] Jeb Berry M.D. [address] [place], [place] [phone] (Wo rk) Social History [...] Luu M.D. - 01/17/2014 1:05 PM CDT [id number] The documentation for this visit is available in Synthesis IMPRESSION/REPORT/PLAN #1 Cataracts, nuclear both eyes. #2 Choroidal nevus, left eye. Stable, Plan: Update glasses. U/v protection. F/u one year. Delmar Luu M.D./yajaira Electronically Signed By: DELMAR LUU MD On: 01/22/2014 07:56 AM Source: [facility] MHSDOLBEYNONRADSYS Document Id: [id number] documented in this encounter Miscellaneous Notes Miscellaneous - Delmar Luu M.D. - 01/17/2014 2:00 PM CDT Ambulatory Patient Summary [facility] [address] [place] [phone] Visit Information Name: AZEB العراقي [facility] Number: [id number] Current Date: 01/17/2014 14:00:58 [...] appointment detail needed. Your Goals/Additional instructions: Source: [facility] POWERCHART Document Id: [id number] Miscellaneous - Delmar Luu M.D. - 01/17/2014 2:00 PM CDT Ambulatory Discharge Medication List [facility] [address] [place] [address] [place] [id number] Visit Information Name: AZEB العراقي [facility] Number: [id number] Visit Date: 01/17/2014 14:00:57 [...] MD Signed On:17-JAN-2014 14:00:47 Additional Information: Source: [facility] POWERCHART Document Id: [id number] documented in this encounter Plan of Treatment Not on filedocumented as of this encounter Visit Diagnoses Not on filedocumented in this encounter
--- OUTSIDE RECORDS SUMMARY | 2021-11-15 12:28 | XMS_ITS | Encounter Summary ---
:1940 Author Organization [facility] Address [address] [place] [address] Care Team Providers Name Role Phone Unavailable Primary Care Provider Unavailable Encounter Details Date Type Department Care Team Description 05/25/2005 Hospital Encounter HX [facility] INTERNMED Mikala Pemberton M.D. [address] [place], [place] [address] (Wo rk) Social History Tobacco Use [...]
--- OUTSIDE RECORDS SUMMARY | 2021-11-15 12:29 | XMS_ITS | Encounter Summary ---
:1940 Author Organization [facility] Address [address] [place] [address] Care Team Providers Name Role Phone Unavailable Primary Care Provider Unavailable Encounter Details Date Type Department Care Team Description 02/13/2001 Hospital Encounter HX [facility] OWOC SURGERY Provider, Josephine vasquez Social History [...]
--- OUTSIDE RECORDS SUMMARY | 2021-11-15 12:29 | XMS_ITS | Encounter Summary ---
:1940 Author Organization [facility] Address [address] [place] [address] Care Team Providers Name Role Phone Unavailable Primary Care Provider Unavailable Encounter Details Date Type Department Care Team Description 06/17/2002 Hospital Encounter HX [facility] Jeb Berry M.D. [address] [place], [place] [phone] (Wo rk) Social History [...]
--- OUTSIDE RECORDS SUMMARY | 2021-11-15 12:29 | XMS_ITS | Encounter Summary ---
:1940 Author Organization [facility] Address [address] [place] [address] Care Team Providers Name Role Phone Unavailable Primary Care Provider Unavailable Encounter Details Date Type Department Care Team Description 02/13/2004 Hospital Encounter HX [facility] INTERNMED Mikala Pemberton M.D. [address] [place], [place] [address] (Wo rk) Social History Tobacco Use [...]
--- OUTSIDE RECORDS SUMMARY | 2021-11-15 12:29 | XMS_ITS | Encounter Summary ---
:1940 Author Organization [facility] Address [address] [place] [address] Care Team Providers Name Role Phone Unavailable Primary Care Provider Unavailable Encounter Details Date Type Department Care Team Description 06/30/2004 Hospital Encounter HX [facility] DERM Wilda Murphy M.D. [address] [facility], [facility] [address] [place] [address] (Wo rk) Social History Tobacco Use [...]
--- OUTSIDE RECORDS SUMMARY | 2021-11-15 12:29 | XMS_ITS | Encounter Summary ---
:1940 Author Organization [facility] Address [address] [place] [address] Care Team Providers Name Role Phone Unavailable Primary Care Provider Unavailable Encounter Details Date Type Department Care Team Description 07/22/2003 Hospital Encounter [facility]X [facility] DERM Wilda Murphy M.D. [address] [facility], [facility] [address] [place] [address] [phone] (Wo rk) Social History Tobacco Use [...]
--- OUTSIDE RECORDS SUMMARY | 2021-11-15 12:29 | XMS_ITS | Encounter Summary ---
:1940 Author Organization [facility] Address [address] [place] [address] Care Team Providers Name Role Phone Unavailable Primary Care Provider Unavailable Encounter Details Date Type Department Care Team Description 03/05/2002 Hospital Encounter HX [facility] DERM Wilda Murphy M.D. [address] [facility], [facility] [address] [place] [phone] (Wo rk) Social History Tobacco Use [...]
--- OUTSIDE RECORDS SUMMARY | 2021-11-15 12:29 | XMS_ITS | Encounter Summary ---
:1940 Author Organization [facility] Address [address] [place] [address] Care Team Providers Name Role Phone Unavailable Primary Care Provider Unavailable Encounter Details Date Type Department Care Team Description 10/11/2001 Hospital Encounter HX [facility] INTERNMED Mikala Pemberton M.D. [address] [place], [place] [address] (Wo rk) Social History Tobacco Use [...]
--- OUTSIDE RECORDS SUMMARY | 2021-11-15 12:29 | XMS_ITS | Encounter Summary ---
:1940 Author Organization [facility] Address [address] [place] [address] Care Team Providers Name Role Phone Unavailable Primary Care Provider Unavailable Encounter Details Date Type Department Care Team Description 12/30/2003 Hospital Encounter [facility]X [facility] Jeb Berry M.D. [address] [place], [place] [phone] (Wo rk) Social History [...]
--- OUTSIDE RECORDS SUMMARY | 2021-11-15 12:29 | XMS_ITS | Encounter Summary ---
:1940 Author Organization [facility] Address [address] [place] [address] Care Team Providers Name Role Phone Unavailable Primary Care Provider Unavailable Encounter Details Date Type Department Care Team Description 05/08/2001 Hospital Encounter HX [facility] DERM Wilda Murphy M.D. 18[address] [facility], [facility] [address] [place] [address] [phone] (Wo rk) Social History Tobacco Use [...]
--- OUTSIDE RECORDS SUMMARY | 2021-11-15 12:29 | XMS_ITS | Encounter Summary ---
:1940 Author Organization [facility] Address [address] [place] [address] Care Team Providers Name Role Phone Unavailable Primary Care Provider Unavailable Encounter Details Date Type Department Care Team Description 03/01/2001 Hospital Encounter HX [facility] INTERNMED Mikala Pemberton M.D. [address] [place], [place] [address] (Wo rk) Social History Tobacco Use [...]
--- OUTSIDE RECORDS SUMMARY | 2021-11-15 12:29 | XMS_ITS | Encounter Summary ---
:1940 Author Organization [facility] Address [address] [place] [address] Care Team Providers Name Role Phone Unavailable Primary Care Provider Unavailable Encounter Details Date Type Department Care Team Description 04/17/2003 Hospital Encounter HX [facility] INTERNMED Mikala Pemberton M.D. [address] [place], [place] [address] (Wo rk) Social History Tobacco Use [...]
--- OUTSIDE RECORDS SUMMARY | 2021-11-15 12:29 | XMS_ITS | Encounter Summary ---
:1940 Author Organization [facility] Address [address] [place] [address] Care Team Providers Name Role Phone Unavailable Primary Care Provider Unavailable Encounter Details Date Type Department Care Team Description 07/14/2000 Hospital Encounter HX [facility] Jeb Berry M.D. [address] [place], [place] [phone] (Wo rk) Social History [...]
--- OUTSIDE RECORDS SUMMARY | 2021-11-15 12:29 | XMS_ITS | Encounter Summary ---
:1940 Author Organization [facility] Address [address] [place] [address] Care Team Providers Name Role Phone Unavailable Primary Care Provider Unavailable Encounter Details Date Type Department Care Team Description 05/14/2003 Hospital Encounter HX [facility] INTERNMED Mikala Pemberton M.D. [address] [place], [place] [address] (Wo rk) Social History Tobacco Use [...]
--- OUTSIDE RECORDS SUMMARY | 2021-11-15 12:29 | XMS_ITS | Encounter Summary ---
:1940 Author Organization [facility] Address [address] [place] [address] Care Team Providers Name Role Phone Unavailable Primary Care Provider Unavailable Encounter Details Date Type Department Care Team Description 04/07/2003 Hospital Encounter HX [facility] INTERNMED Mikala Pemberton M.D. [address] [place], [place] [address] (Wo rk) Social History Tobacco Use [...]
--- OUTSIDE RECORDS SUMMARY | 2021-11-15 12:29 | XMS_ITS | Encounter Summary ---
:1940 Author Organization [facility] Address [address] [place] [address] Care Team Providers Name Role Phone Unavailable Primary Care Provider Unavailable Encounter Details Date Type Department Care Team Description 07/09/2003 Hospital Encounter [facility]X [facility] INTERNMED Mikala Pemberton M.D. [address] [place], [place] [address] (Wo rk) Social History Tobacco Use [...]
--- OUTSIDE RECORDS SUMMARY | 2021-11-15 12:29 | XMS_ITS | Encounter Summary ---
:1940 Author Organization [facility] Address [address] [place] [address] Care Team Providers Name Role Phone Unavailable Primary Care Provider Unavailable Encounter Details Date Type Department Care Team Description 12/25/2003 Hospital Encounter HX [facility] Jeb Berry M.D. [address] [place], [place] [phone] (Wo rk) Social History [...]
--- OUTSIDE RECORDS SUMMARY | 2021-11-15 12:29 | XMS_ITS | Encounter Summary ---
:1940 Author Organization [facility] Address [address] [place] [address] Care Team Providers Name Role Phone Unavailable Primary Care Provider Unavailable Encounter Details Date Type Department Care Team Description 03/22/2004 Hospital Encounter [facility]X [facility] Jeb Berry M.D. [address] [place], [place] [phone] (Wo rk) Social History [...]
--- OUTSIDE RECORDS SUMMARY | 2021-11-15 12:29 | XMS_ITS | Encounter Summary ---
:1940 Author Organization [facility] Address [address] [place] [address] Care Team Providers Name Role Phone Unavailable Primary Care Provider Unavailable Encounter Details Date Type Department Care Team Description 03/04/2004 Hospital Encounter [facility]X [facility] FAMILYPRA Evan Benito M.D. [address] [place] [phone] (Wo rk) Social History Tobacco [...]
--- OUTSIDE RECORDS SUMMARY | 2021-11-15 12:29 | XMS_ITS | Encounter Summary ---
:1940 Author Organization [facility] Address [address] [place] [address] Care Team Providers Name Role Phone Unavailable Primary Care Provider Unavailable Encounter Details Date Type Department Care Team Description 05/11/2004 Hospital Encounter HX [facility] INTERNMED Mikala Pemberton M.D. [address] [place], [place] [address] (Wo rk) Social History Tobacco Use [...]
--- OUTSIDE RECORDS SUMMARY | 2021-11-15 12:29 | XMS_ITS | Encounter Summary ---
:1940 Author Organization [facility] Address [address] [place] [address] Care Team Providers Name Role Phone Unavailable Primary Care Provider Unavailable Encounter Details Date Type Department Care Team Description 03/17/2004 Hospital Encounter [facility]X [facility] Jeb Berry M.D. [address] [place], [place] [phone] (Wo rk) Social History [...]
--- OUTSIDE RECORDS SUMMARY | 2021-11-15 12:29 | XMS_ITS | Encounter Summary ---
:1940 Author Organization [facility] Address [address] [place] [address] Care Team Providers Name Role Phone Unavailable Primary Care Provider Unavailable Encounter Details Date Type Department Care Team Description 08/19/2004 Hospital Encounter [facility]X [facility] Jeb Berry M.D. [address] [place], [place] [phone] (Wo rk) Social History [...]
--- OUTSIDE RECORDS SUMMARY | 2021-11-15 12:29 | XMS_ITS | Encounter Summary ---
:1940 Author Organization [facility] Address [address] [place] [address] Care Team Providers Name Role Phone Unavailable Primary Care Provider Unavailable Encounter Details Date Type Department Care Team Description 01/24/2001 Hospital Encounter [facility]X [facility] INTERNMED Mikala Pemberton M.D. [address] [place], [place] [address] (Wo rk) Social History Tobacco Use [...]
--- OUTSIDE RECORDS SUMMARY | 2021-11-15 12:29 | XMS_ITS | Encounter Summary ---
:1940 Author Organization [facility] Address [address] [place] [address] Care Team Providers Name Role Phone Unavailable Primary Care Provider Unavailable Encounter Details Date Type Department Care Team Description 04/14/2004 Hospital Encounter [facility]X [facility] INTERNMED Mikala Pemberton M.D. [address] [place], [place] [address] (Wo rk) Social History Tobacco Use [...]
--- OUTSIDE RECORDS SUMMARY | 2021-11-15 12:29 | XMS_ITS | Encounter Summary ---
:1940 Author Organization [facility] Address [address] [place] [address] Care Team Providers Name Role Phone Unavailable Primary Care Provider Unavailable Encounter Details Date Type Department Care Team Description 08/21/2002 Hospital Encounter [facility]X [facility] DERM Wilda Murphy M.D. 1835 [facility], [facility] [address] [place] [address] [address] (Wo rk) Social History Tobacco Use [...]
--- OUTSIDE RECORDS SUMMARY | 2021-11-15 12:29 | XMS_ITS | Encounter Summary ---
:1940 Author Organization [facility] Address [address] [place] [address] Care Team Providers Name Role Phone Unavailable Primary Care Provider Unavailable Encounter Details Date Type Department Care Team Description 03/06/2002 Hospital Encounter [facility]X [facility] INTERNMED Mikala Pemberton M.D. [address] [place], [place] [address] (Wo rk) Social History Tobacco Use [...]
--- OUTSIDE RECORDS SUMMARY | 2021-11-15 12:29 | XMS_ITS | Encounter Summary ---
:1940 Author Organization [facility] Address [address] [place] [address] Care Team Providers Name Role Phone Unavailable Primary Care Provider Unavailable Encounter Details Date Type Department Care Team Description 07/19/2001 Hospital Encounter [facility]X [facility] DERM Wilda Murphy M.D. 18[address] [facility], [facility] [address] [place] [address] (Wo rk) Social History Tobacco Use [...]
--- OUTSIDE RECORDS SUMMARY | 2021-11-15 12:29 | XMS_ITS | Encounter Summary ---
:1940 Author Organization [facility] Address [address] [place] [address] Care Team Providers Name Role Phone Unavailable Primary Care Provider Unavailable Encounter Details Date Type Department Care Team Description 01/26/2005 Hospital Encounter [facility]X [facility] Yue Ayon M.D. [address] [place], [place] [address] Social History Tobacco Use [...]
--- OUTSIDE RECORDS SUMMARY | 2021-11-15 12:29 | XMS_ITS | Encounter Summary ---
:1940 [address] [facility] Address [address] [place] [address] Care Team Providers Name Role Phone Unavailable Primary Care Provider Unavailable Encounter Details Date Type Department Care Team Description 02/10/2005 Hospital Encounter [facility]X [facility] Yue Ayon M.D. [address] [place], [place] [address] Social History Tobacco Use [...]
--- OUTSIDE RECORDS SUMMARY | 2021-11-15 12:29 | XMS_ITS | Encounter Summary ---
:1940 Author Organization [facility] Address [address] [place] [address] Care Team Providers Name Role Phone Unavailable Primary Care Provider Unavailable Encounter Details Date Type Department Care Team Description 01/29/2002 Hospital Encounter HX [facility] INTERNMED Mikala Pemberton M.D. [address] [place], [place] [address] (Wo rk) Social History Tobacco Use [...]
--- OUTSIDE RECORDS SUMMARY | 2021-11-15 12:29 | XMS_ITS | Encounter Summary ---
:1940 Author Organization [facility] Address [address] [place] [address] Care Team Providers Name Role Phone Unavailable Primary Care Provider Unavailable Encounter Details Date Type Department Care Team Description 03/24/2003 Hospital Encounter HX [facility] OWOC INTERNMED ProviderZack Social History Tobacco Use [...]
--- OUTSIDE RECORDS SUMMARY | 2021-11-15 12:29 | XMS_ITS | Encounter Summary ---
:1940 Author Organization [facility] Address [address] [place] [address] Care Team Providers Name Role Phone Unavailable Primary Care Provider Unavailable Encounter Details Date Type Department Care Team Description 05/09/2000 Hospital Encounter [facility]X [facility] INTERNMED Mikala Pemberton M.D. [address] [place], [place] [address] (Wo rk) Social History Tobacco Use [...]
--- OUTSIDE RECORDS SUMMARY | 2021-11-15 12:29 | XMS_ITS | Encounter Summary ---
:1940 [address] [facility] Address [address] [place] [address] Care Team Providers Name Role Phone Unavailable Primary Care Provider Unavailable Encounter Details Date Type Department Care Team Description 10/09/2000 Hospital Encounter [facility] FAMILYPRA Katty Katz, N.P. [address] [facility] [place] [address] Social History Tobacco Use Types Packs/Day Years [...]
--- OUTSIDE RECORDS SUMMARY | 2021-11-15 12:29 | XMS_ITS | Encounter Summary ---
:1940 Author Organization [facility] Address [address] [place] [address] Care Team Providers Name Role Phone Unavailable Primary Care Provider Unavailable Encounter Details Date Type Department Care Team Description 09/20/2001 Hospital Encounter [facility]X [facility] Jeb Berry M.D. [address] [place], [place] [phone] (Wo rk) Social History [...]
--- OUTSIDE RECORDS SUMMARY | 2021-11-15 12:29 | XMS_ITS | Encounter Summary ---
:1940 Author Organization [facility] Address [address] [place] [address] Care Team Providers Name Role Phone Unavailable Primary Care Provider Unavailable Encounter Details Date Type Department Care Team Description 04/02/2003 Hospital Encounter [facility] INTERNMED Mikala Pemberton M.D. [address] [place], [place] [address] (Wo rk) Social History Tobacco Use [...]
--- OUTSIDE RECORDS SUMMARY | 2021-11-15 12:29 | XMS_ITS | Encounter Summary ---
:1940 Author Organization [facility] Address [address] [place] [address] Care Team Providers Name Role Phone Unavailable Primary Care Provider Unavailable Encounter Details Date Type Department Care Team Description 11/20/2003 Hospital Encounter [facility] INTERNMED Mikala Pemberton M.D. [address] [place], [place] [address] (Wo rk) Social History Tobacco Use [...]
--- OUTSIDE RECORDS SUMMARY | 2021-11-15 12:29 | XMS_ITS | Encounter Summary ---
:1940 Author Organization [facility] Address [address] [place] [address] Care Team Providers Name Role Phone Unavailable Primary Care Provider Unavailable Encounter Details Date Type Department Care Team Description 09/23/2003 Hospital Encounter [facility]X [facility] INTERNMED Mikala Pemberton M.D. [address] [place], [place] [address] (Wo rk) Social History [...]
--- OUTSIDE RECORDS SUMMARY | 2021-11-15 12:29 | XMS_ITS | Encounter Summary ---
:1940 Author Organization [facility] Address [address] [place] [address] Care Team Providers Name Role Phone Unavailable Primary Care Provider Unavailable Encounter Details Date Type Department Care Team Description 03/16/2004 Hospital Encounter [facility] Jeb Berry M.D. [address] [place], [place] [phone] (Wo rk) Social History [...]
--- OUTSIDE RECORDS SUMMARY | 2021-11-15 12:29 | XMS_ITS | Encounter Summary ---
:1940 Author Organization [facility] Address [address] [place] [address] Care Team Providers Name Role Phone Unavailable Primary Care Provider Unavailable Encounter Details Date Type Department Care Team Description 08/04/2000 Hospital Encounter [facility] Jeb Berry M.D. [address] [place], [place] [phone] (Wo rk) Social History [...]
--- OUTSIDE RECORDS SUMMARY | 2021-11-15 12:29 | XMS_ITS | Encounter Summary ---
:1940 Author Organization [facility] Address [address] [place] [address] Care Team Providers Name Role Phone Unavailable Primary Care Provider Unavailable Encounter Details Date Type Department Care Team Description 03/30/2004 Hospital Encounter [facility]X [facility] Jeb Berry M.D. [address] [place], [place] [phone] (Wo rk) Social History [...]
--- OUTSIDE RECORDS SUMMARY | 2021-11-15 12:29 | XMS_ITS | Encounter Summary ---
:1940 Author Organization [facility] Address [address] [place] [address] Care Team Providers Name Role Phone Unavailable Primary Care Provider Unavailable Encounter Details Date Type Department Care Team Description 10/30/2002 Hospital Encounter HX [facility] Ursula Ferrera M.D. [address] [place] [address] (Wo [id number]) Social History Tobacco [...]
== END 2021-11-02 23:14 | disposition home or self-care (01) ==
LOC: AMB 11-15 12:14
PROVIDERS: PCP Internal Medicine; Visit Provider Internal Medicine
DX: R53.1 Weakness (principal); C25.9 Malignant neoplasm of pancreas, unspecified
CPT/HCPCS: A0425; A0427

== ENCOUNTER 2021-11-02 23:52 | Observation (INO) | payer MEDICARE, OTHER, SELFPAY ==
[2021-11-03] VITALS (23 sets, daily range): BP systolic 103–152; BP diastolic 62–92; PULSE 80–106; RESP 18–28; TEMP 36.1–37.7; O2SAT 92–97; BMI 18.4; BMI 18.6
--- NOTE | 2021-11-03 00:34 | CRLHL7_ITS ---
For Patients: As a result of the Century Cures Act, medical imaging exams and procedure reports are released immediately into your electronic medical record. You may view this report before your referring provider. If you have questions, please contact your health care provider. Indication: WEAKNESS, PANCREATIC CA, DIARRHEA Technique: Postcontrast CT chest, abdomen and pelvis. 56 cc Isovue 370 intravenous contrast. Please note that all CT scans at this facility use dose modulation, iterative reconstruction, and/or weight-based dosing when appropriate to reduce radiation dose to as low as reasonably achievable. Comparison: 10/10/2021, 09/01/2021 Findings: In the chest, bilateral pleural effusions are present with adjacent atelectasis, right greater than left. No enlarged mediastinal or hilar lymph nodes. No enlarged axillary lymph nodes. Right-sided Port-A-Cath is present. No pneumothorax or pulmonary edema. In the abdomen, multiple small hypodense masses are present throughout the liver measuring up to 9 millimeters. Stable position of the internal biliary stent. Expected pneumobilia noted. Decreased pancreatic duct dilation. Similar morphology of the pancreatic head mass. Spleen is not enlarged. Adrenal glands normal. No hydronephrosis. Simple left renal cortical cyst. Vascular calcifications. Diffuse mesenteric edema and ascites. In the pelvis, there is large volume of intrapelvic ascites. Normal uterus and ovaries. Bladder normal. Sigmoid diverticulosis. No diverticulitis. Wall thickening of the hepatic flexure noted. No bowel obstruction. Mild wall thickening of loops of jejunum also noted. There is no free air. No fracture. Degenerative changes. Impression: Interval development of multiple small intrahepatic masses measuring up to 9 millimeters compatible with metastatic lesions. Interval development of large volume ascites particularly within the pelvis along with bilateral pleural effusions. Interval development of wall thickening of the hepatic flexure and loops of jejunum suggesting colitis/enteritis. No mechanical bowel obstruction. Pancreatic head mass is similar although there is diminished pancreatic duct dilation. Please note that all CT scans at this facility use dose modulation, iterative reconstruction, and/or weight-based dosing when appropriate to reduce radiation dose to as low as reasonably achievable. Dictated by Figueroa Grant MD @ 11/03/2021 9:16:56 AM (Electronically Signed)
[2021-11-03 01:30] LABS: Basophils Percent Auto 0.1 % (0.0-3.0); Eosinophils Percent Auto 0.2 % (0.0-7.0); Hematocrit 24.8 % (33.0-51.0); Hemoglobin* 8.1 gm/dL (12.0-16.0); Immature Granulocytes Abs Auto 0.09 K/uL (0.00-0.30); Lymphocytes Percent Auto 1.5 % (20-44); Mean Corpuscular HGB Conc 33 gm/dL (32-36); Mean Corpuscular Hemoglobin 32 pg (26-34); Mean Corpuscular Volume 98 fL (80-100); Monocytes Percent Auto 6.5 % (0.0-11.0); Platelet Count* 272 K/uL (140-440); RDW Coefficient of Variation % 16.6 % (11.5-15.5); Red Blood Count 2.52 m/uL (4.00-5.20); White Blood Count* 12.37 K/uL (4.50-11.00)
[2021-11-03 01:32] LABS: Slide Review Reflex No
[2021-11-03 01:45] LABS: Albumin* 2.4 g/dL (3.3-5.0); Chloride* 107 mmol/L (96-114)
[2021-11-03 01:46] LABS: Potassium* 3.8 mmol/L (3.6-5.1); Sodium* 136 mmol/L (135-149)
[2021-11-03 01:48] LABS: Aspartate Amino Transferase* 96 U/L (12-35); Bilirubin Total* 7.1 mg/dL (0.1-1.5); Blood Urea Nitrogen* 12 mg/dL (7-30); Carbon Dioxide* 24 mmol/L (20-32); Creatinine* 0.5 mg/dL (0.5-1.5); Est. Creatinine Clearance* 37.24; Estimated Glomerular Filt Rate 95 ml/min; Total Protein* 5.5 g/dL (6.0-8.3)
[2021-11-03 01:49] LABS: Alanine Aminotransferase* 65 U/L (4-35); Alkaline Phosphatase* 1078 U/L (40-150); Calcium* 7.6 mg/dL (8.4-10.6); Glucose* 134 mg/dL (60-115); Magnesium* 1.9 mg/dL (1.5-2.6)
[2021-11-03] MEDS: 0.9 % SODIUM CHLORIDE 1000 ml 1,000 ML 500 ML IV (01:55)
[2021-11-03 04:23] LABS: SARS PCR* POSITIVE SARS-CoV-2 (Negative)
--- NOTE | 2021-11-03 04:48 | ED_ITS ---
HPI - General Adult General Chief complaint: Weakness Stated complaint: Weakness Time Seen by Provider: 11/03/21 00:05 Source: patient and family Mode of arrival: EMS Limitations: no limitations History of Present Illness HPI narrative: 81-year-old female who is brought in by her with profound weakness. This has been an issue for couple of months but has gotten much worse over the past week or two. She is weak to the point that when she slumped to the ground he cannot get her back up. If she sits down on the toilet she cannot stand back up. There has been no discussion about placement. She is going through chemotherapy for pancreatic cancer. She is due to meet with her oncologist again in two days and have CTs of her chest, abdomen, pelvis. She is eating and drinking poorly. She has low blood pressure and has been started on Florinef without much benefit. She is DNR DNI her abdomen has been distended. She denies much in the way of abdominal pain. She has never had a paracentesis. S he has shortness of breath with exertion but no chest pain. No fevers or chills. No diarrhea. Related Data Home Medications Medication Instructions Recorded Confirmed calcitriol 0.25 mcg capsule 0.5 mcg PO DAILY 09/29/21 10/12/21 calcium 325 mg-vit D3 12.5 3 tab PO DAILY 09/29/21 11/03/21 mcg-zinc 2.75 [id number]-lmxsujvbs tablet (Citracal-D3 Maximum Plus) levothyroxine 75 mcg tablet 75 mcg PO DAILY 09/29/21 11/03/21 loperamide 2 mg capsule 2 mg PO PRN 09/29/21 10/12/21 magnesium oxide 400 mg (241.3 mg 1,600 mg PO DAILY 09/29/21 11/03/21 magnesium) tablet nystatin 100,000 unit/mL oral 5 ml PO QID PRN 09/29/21 11/03/21 suspension pantoprazole 40 mg tablet,delayed 40 mg PO DAILY 09/29/21 11/03/21 release Previous Rx's Medication Instructions Recorded fludrocortisone 0.1 mg tablet 0.1 mg PO QDAY #90 tabs 10/05/21 potassium chloride 20 mEq 20 meq PO BID low potassium #180 10/05/21 tablet,extended release tabs sodium chloride 1 gram tablet 1,000 mg PO TID #90 tabs 10/05/21 pyridostigmine bromide 60 mg tablet 30 mg PO TID #45 tabs 10/14/21 Allergies Allergy/AdvReac Type Severity Reaction Status Date / Time No Known Drug Allergies Allergy Verified 11/03/21 00:08 [facility] Medical History Autoimmune hypoparathyroidism History of hypertension Pancreatic cancer 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 HEENT: Conjunctiva clear. Scleral icterus. Tympanic membranes are pearly white bilaterally. Posterior pharynx is clear without erythema or exudate. Neck is supple without adenopathy, thyromegaly, carotid bruit. Lungs: Clear to auscultation in all abernathy. No wheezes, rales, rhonchi. Heart: Regular rate and rhythm without murmur. Abdomen: Mild distension. Soft and nontender. No guarding, rigidity, rebound. Bowel sounds are normal. There is some fullness and tenderness in the right upper quadrant. Extremities: No cyanosis or edema. Good distal pulses. Skin: She is jaundiced. Neurologic: Awake, alert, fully oriented. Neurologic exam is nonfocal. Const: Vital Signs, click to edit/add: Vital Signs - 24 hr 11/03/21 00:01 11/03/21 00:20 11/03/21 00:40 Temperature 99.8 F H Pulse Rate [Left P ulse Oximeter] 106 H 104 H 101 H Respiratory Rate 28 H Blood Pressure [Ri ght Upper Arm] 121/75 129/66 120/70 Pulse Oximetry 92 93 92 Oxygen Delivery Me thod Room Air Room Air Room Air 11/03/21 01:40 11/03/21 02:00 11/03/21 02:20 Temperature Pulse Rate [Left P ulse Oximeter] 97 95 95 Respiratory Rate Blood Pressure [Ri ght Upper Arm] 131/63 119/69 125/62 Pulse Oximetry 93 93 93 Oxygen Delivery Me thod Room Air Room Air Room Air 11/03/21 02:40 11/03/21 03:00 11/03/21 03:20 Temperature Pulse Rate [Left P ulse Oximeter] 93 90 86 Respiratory Rate Blood Pressure [Ri ght Upper Arm] 119/67 115/65 122/69 Pulse Oximetry 93 93 93 Oxygen Delivery Me thod Room Air Room Air Room Air 11/03/21 03:40 11/03/21 04:00 Temperature Pulse Rate [Left P ulse Oximeter] 82 82 Respiratory Rate Blood Pressure [Ri ght Upper Arm] 127/70 125/72 Pulse Oximetry 94 94 Oxygen Delivery Me thod Room Air Room Air Course Reevaluation(s) Reevaluation #1: Patient seen and evaluated. Labs and IV fluids are ordered. We opted to do the CT scans that were scheduled for today. Her leaves to go home and says that he cannot come back and get her as he is care for. Reevaluation #2: Patient is resting comfortably. We went over her lab results and her CT results. She will be admitted to the hospital for further evaluation. She may very well need placement if he can no longer care for her at home. Vital Signs Vital signs: Initial Vital Signs Temperature 99.8 F H 11/03/21 00:01 Temperature Source Oral 11/03/21 00:01 Pulse Rate 106 H 11/03/21 00:01 Respiratory Rate 28 H 11/03/21 00:01 Blood Pressure 121/75 11/03/21 00:01 Blood Pressure Mean 90 11/03/21 00:01 Blood Pressure Position Supine 11/03/21 00:01 Pulse Oximetry 92 11/03/21 00:01 Oxygen Delivery Method 11/03/21 00:01 Vital Signs Temperature 99.8 F H 11/03/21 00:01 Pulse Rate 106 H 11/03/21 00:01 Respiratory Rate 28 H 11/03/21 00:01 Blood Pressure 121/75 11/03/21 00:01 Pulse Oximetry 92 11/03/21 00:01 Oxygen Delivery Method 11/03/21 00:01 Temperature 98.2 F 11/03/21 05:32 Pulse Rate 84 11/03/21 05:00 Respiratory Rate 28 H 11/03/21 05:51 Blood Pressure 111/71 11/03/21 05:00 Pulse Oximetry 95 11/03/21 05:51 Oxygen Delivery Method 11/03/21 05:51 Medical Decision Making Lab Data Labs: Lab Results 11/03/21 11/03/21 11/03/21 Range/Units 01:15 01:15 01:15 WBC 12.37 H (4.50-11.00) K/uL RBC 2.52 L (4.00-5.20) m/uL Hgb 8.1 L (12.0-16.0) gm/dL Hct 24.8 L (33.0-51.0) % MCV 98 (80-100) fL MCH 32 (26-34) pg MCHC 33 (32-36) gm/dL RDW Coeff of Andi 16.6 H (11.5-15.5) % Plt Count 272 (140-440) K/uL Neut % (Auto) 91.0 H (42.0-72.0) % Lymph % (Auto) 1.5 L (20-44) % Cecil % (Auto) 6.5 (0.0-11.0) % Eos % (Auto) 0.2 (0.0-7.0) % Baso % (Auto) 0.1 (0.0-3.0) % Neut # (Auto) 11.30 H (1.7-7.0) K/uL Lymph # (Auto) 0.20 L (0.90-2.90) K/uL Cecil # (Auto) 0.80 (0.00-0.90) K/UL Eos # (Auto) 0.00 (0.00-0.50) K/uL Baso # (Auto) 0.00 (0.00-0.30) K/uL Abs Immat Gran (auto) 0.09 (0.00-0.30) K/uL Sodium 136 (135-149) mmol/L Potassium 3.8 (3.6-5.1) mmol/L Chloride 107 (96-114) mmol/L Carbon Dioxide 24 (20-32) mmol/L BUN 12 (7-30) mg/dL Creatinine 0.5 (0.5-1.5) mg/dL Estimated Creat Clear 37.24 Estimated GFR 95 ml/min Glucose 134 H (60-115) mg/dL Calcium 7.6 L (8.4-10.6) mg/dL Magnesium 1.9 (1.5-2.6) mg/dL Total Bilirubin 7.1 H (0.1-1.5) mg/dL Direct Bilirubin 6.0 H (0.0-0.5) mg/dL AST 96 H (12-35) U/L ALT 65 H (4-35) U/L Alkaline Phosphatase 1078 H (40-150) U/L Total Protein 5.5 L (6.0-8.3) g/dL Albumin 2.4 L (3.3-5.0) g/dL TSH 3.180 (0.270-4.20) uIU/mL SARS-CoV-2 (PCR) (Negative) 11/03/21 Range/Units 03:20 WBC (4.50-11.00) K/uL RBC (4.00-5.20) m/uL Hgb (12.0-16.0) gm/dL Hct (33.0-51.0) % MCV (80-100) fL MCH (26-34) pg MCHC (32-36) gm/dL RDW Coeff of Andi (11.5-15.5) % Plt Count (140-440) K/uL Neut % (Auto) (42.0-72.0) % Lymph % (Auto) (20-44) % Cecil % (Auto) (0.0-11.0) % Eos % (Auto) (0.0-7.0) % Baso % (Auto) (0.0-3.0) % Neut # (Auto) (1.7-7.0) K/uL Lymph # (Auto) (0.90-2.90) K/uL Cecil # (Auto) (0.00-0.90) K/UL Eos # (Auto) (0.00-0.50) K/uL Baso # (Auto) (0.00-0.30) K/uL Abs Immat Gran (auto) (0.00-0.30) K/uL Sodium (135-149) mmol/L Potassium (3.6-5.1) mmol/L Chloride (96-114) mmol/L Carbon Dioxide (20-32) mmol/L BUN (7-30) mg/dL Creatinine (0.5-1.5) mg/dL Estimated Creat Clear Estimated GFR ml/min Glucose (60-115) mg/dL Calcium (8.4-10.6) mg/dL Magnesium (1.5-2.6) mg/dL Total Bilirubin (0.1-1.5) mg/dL Direct Bilirubin (0.0-0.5) mg/dL AST (12-35) U/L ALT (4-35) U/L Alkaline Phosphatase (40-150) U/L Total Protein (6.0-8.3) g/dL Albumin (3.3-5.0) g/dL TSH (0.270-4.20) uIU/mL SARS-CoV-2 (PCR) POSITIVE SARS-CoV-2 A (Negative) Discharge Plan Discharge Clinical Impression: 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
--- NOTE | 2021-11-03 04:55 | W.PC.EDHO ---
Primary Language: Preferred Language: Orientation Status: [x] Alert & Oriented [] Slight Confusion [] Known Dx Dementia Transfers By: [x] Assist of 1 [] Assist of 2 [] Lift Active Medications Discontinued Medications Generic Name Dose Route Start Last Admin Trade Name Freq PRN Reason Stop Dose Admin Sodium Chloride 1,000 mls @ 500 mls/hr 11/03/21 00:38 11/03/21 01:55 0.9 % Sodium Chloride 1000 Ml IV 11/03/21 02:37 500 mls/hr .Q2H FILEMON Administration Description of Symptoms ED Triage Present Problem Pt presents via ems from home, weakness and Description diarrhea for the past week. has finished a round of chemo for pancreatic cancer, will wait for 3 mo before starting the next. has CT scan ordered for . lowest systolic per ems 90 Oxygen Administration Pulse Oximetry 92 Oxygen Delivery Method Room Air
[2021-11-03 04:57] LABS: SARS Antigen* negative (Negative)
--- NOTE | 2021-11-03 05:35 | PM.IMCN1 ---
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) Surgical History History of appendectomy (10/22/09) History of dilation and curettage (10/22/09) Family History Mother Colon cancer Maternal Grandmother Colon cancer Social History Smoking Status: Never smoker How often do you have a drink containing alcohol: never AUDIT-C Alcohol total score: 0 Non-prescribed substance use: denies use Caffeine: No service: No Meds Home Medications and Allergies Home Medications Medication Instructions Recorded Confirmed Type calcitriol 0.25 mcg capsule 0.5 mcg PO DAILY 09/29/21 10/12/21 History calcium 325 mg-vit D3 12.5 3 tab PO DAILY 09/29/21 11/03/21 History mcg-zinc 2.75 ag-ghille-tebqdhyfg tablet (Citracal-D3 Maximum Plus) levothyroxine 75 mcg tablet 75 mcg PO DAILY 09/29/21 11/03/21 History loperamide 2 mg capsule 2 mg PO PRN 09/29/21 10/12/21 History magnesium oxide 400 mg (241.3 mg 1,600 mg PO DAILY 09/29/21 11/03/21 History magnesium) tablet nystatin 100,000 unit/mL oral 5 ml PO QID PRN 09/29/21 11/03/21 History suspension pantoprazole 40 mg tablet,delayed 40 mg PO DAILY 09/29/21 11/03/21 History release Allergies Allergy/AdvReac Type Severity Reaction Status Date / Time No Known Drug Allergies Allergy Verified 11/03/21 00:08 Exam Const: Vital Signs, click to edit/add: Vital Signs - 24 hr 11/03/21 00:01 11/03/21 04:52 11/03/21 00:20 Temperature 99.8 F H 98.0 F Pulse Rate [Left P ulse Oximeter] 106 H 104 H Respiratory Rate 28 H Blood Pressure [Ri ght Upper Arm] 121/75 129/66 Pulse Oximetry 92 93 Oxygen Delivery Me thod Room Air Room Air 11/03/21 00:40 11/03/21 01:40 11/03/21 02:00 Temperature Pulse Rate [Left P ulse Oximeter] 101 H 97 95 Respiratory Rate Blood Pressure [Ri ght Upper Arm] 120/70 131/63 119/69 Pulse Oximetry 92 93 93 Oxygen Delivery Me thod Room Air Room Air Room Air 11/03/21 02:20 11/03/21 02:40 11/03/21 03:00 Temperature Pulse Rate [Left P ulse Oximeter] 95 93 90 Respiratory Rate Blood Pressure [Ri ght Upper Arm] 125/62 119/67 115/65 Pulse Oximetry 93 93 93 Oxygen Delivery Vt thod Room Air Room Air Room Air 11/03/21 03:20 11/03/21 03:40 11/03/21 04:00 Temperature Pulse Rate [Left P ulse Oximeter] 86 82 82 Respiratory Rate Blood Pressure [Ri ght Upper Arm] 122/69 127/70 125/72 Pulse Oximetry 93 94 94 Oxygen Delivery Vt thod Room Air Room Air Room Air 11/03/21 04:20 11/03/21 04:40 11/03/21 05:00 Temperature Pulse Rate [Left P ulse Oximeter] 83 84 84 Respiratory Rate Blood Pressure [Ri ght Upper Arm] 118/72 109/68 111/71 Pulse Oximetry 94 93 93 Oxygen Delivery Vt thod Room Air Room Air Room Air Labs Labs: Short CBC 11/03/21 Range/Units 01:15 WBC 12.37 H (4.50-11.00) K/uL Hgb 8.1 L (12.0-16.0) gm/dL Hct 24.8 L (33.0-51.0) % Plt Count 272 (140-440) K/uL BMP 11/03/21 01:15 Sodium 136 Potassium 3.8 Chloride 107 Carbon Dioxide 24 BUN 12 Creatinine 0.5 Glucose 134 H Calcium 7.6 L Liver Function 11/03/21 Range/Units 01:15 Total Bilirubin 7.1 H (0.1-1.5) mg/dL Direct Bilirubin 6.0 H (0.0-0.5) mg/dL AST 96 H (12-35) U/L ALT 65 H (4-35) U/L Alkaline Phosphatase 1078 H (40-150) U/L Albumin 2.4 L (3.3-5.0) g/dL Assessment and Plan Assessment and plan (1) Weakness: Status: Acute (2) 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 She is also been getting lightheaded when she stands. She gets dyspnea on exertion. She has not had associated chest pain. She denies headaches. She has had nausea, vomiting, and diarrhea over the last several days. She endorses abdominal fullness and bloating but has not had any acute pain. Patient denies any dysuria but does have trouble emptying her bladder. This is been going on for some time. She denies any fevers or chills. Patient is a non-smoker. She does not drink alcohol. We did discuss CODE STATUS and at this point she would like to be a DNR. She is due to see her oncologist on Monday to determine plan of care moving forward. She did have a CT chest abdomen pelvis in the ER but report is not unavailable. Exam (performed via interactive video with assistance of bedside nurse): General: Jaundiced, alert, cooperative, no acute distress HEENT: Pupils reported ERRL, oral mucosa pink and moist without erythema Lungs: Clear to auscultation bilaterally without crackle or wheeze CV: Regular rate and rhythm without loud murmur rub or gallop Abd: Abdomen is full but not distended, denies tenderness and does not exhibit signs of pain with palpation done by bedside nurse Ext: No pitting edema noted Skin: No rashes, bruises or lesions appreciated on gross visualization of exposed skin Neuro: Alert, oriented x 3. CN III -VII, XI, XII grossly intact, moves all extremities without any significant focal deficit appreciated by nurse Assessment and Plan: 1. Worsening pancreatic cancer 2. Hyperbilirubinemia Patient is a 81-year-old female who was admitted for nausea, vomiting, and diarrhea in the setting of worsening pancreatic cancer. She does have a pancreatic stent in my suspicion based on her labs that it is now being compressed. We will have to wait for CT report fully verified. Would recommend touching base with her oncologist later this morning to see if they want to try and see her earlier than Monday. A palliative consultation also may be considered. With her vomiting and diarrhea we will gently hydrate her through the morning. Will PRNs available for pain and nausea. For her weakness we will PT and OT assess her later on today. Her chronic outpatient medications will need to be continued as appropriate when they can be fully verified. Enoxaparin has been placed for DVT prophylaxis. Patient is a DNR. Thank you for including [facility] in the patients care. This service is available for further assistance as requested by your care team by calling [phone].
--- OUTSIDE RECORDS SUMMARY | 2021-11-03 06:59 | XMS_ITS | Clinical Summary ---
:1940 Author Organization [facility] Address [address] [place] [address] Care Team Providers Name Role Phone Elsewhere, Pcp Primary Care Provider Unavailable Source Comments Patient records contain information from all sites at [facility]. For routine questions regarding patient records, call [phone] during business hours, M-F 8:00 AM - 5:00 PM Central Time. Record requests for emergency care only can be directed to [phone] at any time.[facility] Allergies No known active allergies Medications Medication Sig Dispensed Refills Start Date End Date Status magnesium oxide Take 400 mg by 0 05/14/2020 Active (MAG-OX) 400 mg (241.3 mouth. Taking 4 mg magnesium) tablet tablets daily ondansetron (ZOFRAN) 8 Take 1 tablet (8 30 tablet 3 06/07/2020 Active mg tabletIndications: mg total) by mouth Malignant Neoplasm Of every 8 (eight) Pancreas hours as needed Adenocarcinoma (HCC) for nausea or vomiting (unrelieved by prochlorperazine). lidocaine-prilocaine Apply 1 30 g 0 06/08/2020 Active (EMLA) 2.5-2.5 % cream application topically as needed for pain (30 minutes prior to port access). Additional Information Patient not taking. Reported on 09/20/2021 [id number]-copper-marlo Take by mouth. 0 05/20 Active (Citracal-D3 Maximum Plus) 325 Taking 3-4 mg-12.5 mcg -2.75 mg tablet daily ESTRIOL MICRONIZED, BULK, MISC Three Times 0 03/17/ 020 Active Weekly levothyroxine (SYNTHROID, 0 09/12/2020 Active LEVOTHROID) 75 mcg tablet loperamide (IMODIUM A-D) 2 mg TAKE 2 CAPS AT 48 1 12/01 Active capsuleIndications: Malignant ONSET OF capsule Neoplasm Of Pancreas (HCC) DIARRHEA, THEN 1 CAP EVERY 2HRS UNTIL DIARRHEA FREE FOR 12HRS. MAY TAKE 2 CAPS EVERY 4HRS AT NIGHT ketoconazole (NIZORAL) 2 % cream MASSAGE INTO TO 0 0 12/01/2020 Active AFFECTED AREA ON FEET 1-2X DAILY UNTIL RESOLVED nystatin (MYCOSTATIN) 100,000 Take 5 mL 280 mL 0 12/22/2020 Active unit/mL suspension (500,000 Units total) by mouth 4 (four) times a day. Swish in mouth and swallow. traMADoL (ULTRAM) 50 mg Take 1-2 180 0 02/02/2021 Active tabletIndications: Chronic tablets (50-100 tablet Pain/Nonacute Pain mg total) by mouth every 6 (six) hours as needed for pain Indications: Chronic Pain/Nonacute Pain. hydrocortisone (HYTONE) 2.5 % Apply 0 01/20/2021 Active cream topically. hydrocortisone (ANUSOL-HC) 25 mg Insert 25 mg 0 12/26 Active suppository into the rectum. oxyCODONE (ROXICODONE) 5 mg Take 5-10 mg by 0 2021 Active immediate release tablet mouth every 4 (four) hours as needed. prochlorperazine (COMPAZINE) 10 TAKE ONE TABLET 0 Active mg tablet BY MOUTH EVERY 6 HOURS NEEDED FOR NAUSEA AND VOMITING diphenoxylate-atropine (LOMOTIL) Take 1 tablet 0 03/2021 Active 2.5-0.025 mg per tablet by mouth 4 (four) times a day as needed for diarrhea. lisinopriL (PRINIVIL,ZESTRIL) 20 Take 1 tablet 0 03/2021 Active mg tablet (20 mg total) by mouth daily. ON HOLD fludrocortisone (FLORINEF) 0.1 Take 1 tablet 30 tablet 0 09/25 Active mg tablet (0.1 mg total) by mouth daily. pantoprazole (PROTONIX) 40 mg EC Take 1 tablet 30 tablet 0 04/2021 Active tablet (40 mg total) by mouth every morning before breakfast. metoclopramide (REGLAN) 5 mg Take 1-2 20 tablet 0 07/28/2021 07 Discontinued tablet tablets (5-10 /0 (Stop Taking mg) 2 to 3 1/ at Discha rge) times daily 20 administered 22 prior to meals. sodium chloride 1 gram tablet Take 1 tablet 42 tablet 0 2021 07 (1 g total) by /1 mouth 3 (three) 5/ times a day 20 with meals for 22 14 days. 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/11/2020 Hypocalcemia 04/10/2020 Hypomagnesemia 04/10/2020 Osteopenia 04/10/2020 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 Dx) 09/29/2021 Specialty Pharmacy Pharmacy Andrés Zarate Jr., R.Ph. 09/20/2021 [facility], Malignant Neoplasm Of Pancreatic Duct (HCC) (Primary Dx); - Kota Catalan D.O., Malignant Ne oplasm Of Pancreas Adenocarcinoma (HCC); 09/24/2021 [facility]; Walt Kinsey, Anthony ; Kasey, Ph.D. Hypotension Orthostatic Adriana Berrios M.D., M.B.A. Miranda Hyman M.D. 09/16/2021 Comprehensive Visit Pain Medicine [facility], Pain Ca ncer Associated (Primary Dx); Kota Catalan D.O., Malignant Ne oplasm Of Pancreas Adenocarcinoma (HCC) [facility] 09/13/2021 Clinical Admitting/Central Pre-visit Intake Communication Scheduling 09/07/2021 Clinical Oncology Daniel Vieira, Communication M.D. 09/07/2021 Orders Only Oncology Daniel Vieira, Malignant Ne oplasm Kasey Of Pancreas Adenocarcinoma (HCC) (Primary Dx) 08/13/2021 Hospital Encounter Radiation Yung Chavez M.D. 08/13/2021 Documentation Radiation Oncology Yung Bills M.D. 08/12/2021 Hospital Encounter Radiation Oncology Yung Bills Malignant Jadon Phillips M.D. Of Pancreas 08/13/2021 Adenocarcinoma (HCC) 08/12/2021 Hospital Encounter Radiation Yung Chavez M.D. 08/11/2021 Hospital Encounter Radiation Yung Chavez M.D. 08/11/2021 Refill Endocrinology Konrad Cid Med Refill M.D. 08/10/2021 Hospital Encounter Radiation Yung Chavez M.D. 08/09/2021 Hospital Encounter Radiation Yung Chavez M.D. 08/06/2021 Hospital Encounter Radiation Yung Chavez M.D. 08/05/2021 Hospital Encounter Radiation Yung Chavez M.D. 08/04/2021 Hospital Encounter Radiation Yung Chavez M.D. 08/03/2021 Hospital Encounter Radiation Yung Chavez Malignant Neoplasm Kasey Phillips Of Pancreas Ronzelsky, Adenocarcinoma (HCC) Israel Crawford M.D. 08/03/2021 Hospital Encounter Radiation Oncology Yung Bills M.D. from Last 3 Months Immunizations Name Administration Dates Next Due Influenza Split 03/04/2004, 03/16/2000 Td Preservative Free (TENIVAC, DECAVAC) 08/29/2007 Family History Medical History Relation Name Comments Leukemia Father Jomar Kennedy Skin cancer Father Jomar Kennedy 60s Retinal detachment Father's Sister Colon cancer Maternal Grandmother Emily. Probably in her 60s Arthritis Mother Emily Cataracts Mother Emily Colon cancer Mother Emily Thyroid, stomach and uterine cancers Coronary artery disease Mother Emily Hypertension Mother Emily Other cancer Mother Emily Stomach cancer, colon cancer Thyroid cancer Mother Emily In her 40s Thyroid disease Mother Emily Relation Name Status Comments Father Jomar Kennedy Father's Sister Maternal Grandmother Emily. Mother Emily Social History Tobacco Use Types Packs/Day Years Used Date Smoking Tobacco: Never Smokeless Tobacco: Never Comments: None Alcohol Use Standard Drinks/Week Comments Not Currently 0 (1 standard drink = 0.6 oz pure alcoho l) Alcohol Habits Answer Date Recorded How often do you have a drink containing alcohol? Monthly or less 06/19/2021 How many drinks containing alcohol do you have on a 1 or 2 06/19/2021 typical day when you are drinking? How often do you have six or more drinks on one Never 06/19/2021 occasion? Comment: Not asked Social Isolation Answer Date Recorded In a typical week, how many times do you More than three rajesh es a week 06/19/2021 talk on the phone with family, friends, or neighbors? How often do you get together with friends Three times a wee k 06/19/2021 or relatives? How often do you attend catholic or More than 4 times per year 06/19/2021 amish services? Do you belong to any clubs or Yes 06/19/2021 organizations such as catholic groups, unions, fraternal or athletic groups, or school groups? How often do you attend meetings of the Never 06/19/2021 clubs or organizations you belong to? Are you now , , , 06/19/2021 , never or living with a partner? Physical Activity Answer Date Recorded On average, how many days per week do you engage in moderate to 0 days 06/19/2021 strenuous exercise (like walking fast, running, jogging, dancing, swimming, biking, or other activities that cause a light or heavy sweat)? On average, how many minutes do you engage in exercise at th is 0 min 06/19/2021 level? Stress Answer Date Recorded Do you feel stress - tense, restless, nervous, or Only a lit tle 06/19/2021 anxious, or unable to sleep at night because your mind is troubled all the time - these days? Financial Resource Strain Answer Date Recorded How hard is it for you to pay for the very basics like Not h mitchel at all 06/19/2021 food, housing, medical care, and heating? Intimate Partner Violence Answer Date Recorded Within the last year, have you been afraid of your partner o r No 06/19/2021 ex-partner? Within the last year, have you been humiliated or emotionall y No 06/19/2021 abused in other ways by your partner or ex-partner? Within the last year, have you been kicked, hit, slapped, or No 06/19/2021 otherwise physically hurt by your partner or ex-partner? Within the last year, have you been raped or forced to have any No 06/19/2021 kind of sexual activity by your partner or ex-partner? Food Insecurity Answer Date Recorded Within the past 12 months, you worried that your food would Never true 06/19/2021 run out before you got money to buy more. Within the past 12 months, the food you bought just didn't N ever true 06/19/2021 last and you didn't have money to get more. Transportation Needs Answer Date Recorded In the past 12 months, has lack of transportation kept you f rom No 06/19/2021 medical appointments or from getting medications? In the past 12 months, has lack of transportation kept you f rom No 06/19/2021 meetings, work, or getting things needed for daily living? Housing Stability Answer Date Recorded In the last 12 months, was there a time when you were not ab le No 06/19/2021 to pay the mortgage or rent on time? In the last 12 months, how many places have you lived? 1 06/19/2021 In the last 12 months, was there a time when you did not hav e a No 06/19/[address] to sleep or slept in a [place] [facility] (including now)? Education Answer Date Recorded What is the highest level of school you have Some college, n o degree 10/23/2020 completed or the highest degree you have received? Sex Assigned at Date Recorded Female 07/03/2017 2:07 PM CDT Last Filed Vital Signs Vital Sign Reading Time Taken Comments Blood Pressure 102/61 09/24/2021 1:00 PM CDT Pulse 100 09/24/2021 1:00 PM CDT Temperature 37 ??C (98.6 ??F) 09/24/2021 1:00 PM CDT Respiratory Rate 20 09/24/2021 1:00 PM CDT Oxygen Saturation 94% 09/24/2021 1:00 PM CDT Inhaled Oxygen Concentration - - Weight 49.2 kg (108 lb 7.5 oz) 09/23/2021 8:00 AM CDT Height 167.6 cm (5' 5.98) 09/21/2021 2:43 PM CDT Body Mass Index 17.52 09/21/2021 2:43 PM CDT Plan of Treatment Upcoming Encounters Date Type Specialty Care Team Description 11/19/2021 Clinical Communication Admitting/Central Scheduling 11/23/2021 Comprehensive Visit Neurology Kenji Zaldivar M.D. [address] [place] [address] Health Maintenance Due Date Last Done Comments CT Colonography 1940 Cologuard 1940 Hepatitis C Screening 1940 Colonoscopy 07/14/2011 07/13/2006 Colorectal Cancer Surveillance 07/14/2011 Pneumococcal vaccine (65+ years) 11/11/2015 11/10/2014 (2 - PPSV23 or PCV20) DTaP,Tdap,and Td Vaccines (2 - Td 07/29/2020 07/29/2010, or Tdap) COVID-19 Vaccine (4 - Booster for 02/05/2021 11/13/2020, , Pfizer series) 05/30/2020 Depression Screening (Annual 03/27/2021 PHQ-2) Thyroid Stimulating Hormone (TSH) 05/22/2021 05/22/2020, test for thyroid function Office Visit for Blood Pressure 10/21/2021 07/22/2021 Check / Re-check Influenza Vaccine (#1) 2022 01/06/2021, 12/24/2019, 01/14/2019, Additional history exists Creatinine Level 09/24/2022 09/24/2021, 09/23/2021, 09/22/2021, Additional history exists Potassium Level 09/24/2022 09/24/2021, 09/23/2021, 09/22/2021, Additional history exists Sodium Level 09/24/2022 09/24/2021, 09/23/2021, 09/22/2021, Additional history exists Zoster Vaccines Completed 03/10/2019, 12/29/2018, 10/04/2018, Additional history exists Fall Risk Screen (Annual) Completed 09/20/2021 Medical Devices Implanted Type Area Junior Linux Administrator Device Shelf Model / Identifier Expiration Serial / Date Lot Stnt Wll 0.035 Rx Ncvr 10x40 - [id number] Biliary Stent N/A: [place] 08/21/2022 [id number] / Implanted: Qty: 1 on 01/26/2021 by Nile Curry M.D. at [facility] [employer] / Duct [id number] Prt Pwr Mri Mctrdcr 8f - [id number] Implantable [employer].Bard 06/24/2021 [id number] / Implanted: Qty: 1 on 06/05/2020 by Akhil Amador M.D. at [facility] [place] / [id number] Procedures Procedure Name Priority Date/Time Associated Diagnosis Comme nts OUTSIDE CT BODY Routine 10/10/2021 11:05 Results for this AM CDT procedure are i n the results section. OUTSIDE DX CHEST Routine 10/10/2021 10:10 Results for this AM CDT procedure are i n the results section. OUTSIDE CT NEURO Routine 10/10/2021 9:40 Results for this AM CDT procedure are i n the results section. IRON AND TOT Routine 09/24/2021 4:32 Results for this IRON-BINDING AM CDT procedure are i n CAPACITY, S/P the results section. BASIC METABOLIC Routine 09/24/2021 4:32 Results f or this PANEL, S/P AM CDT procedure are i n the results section. CBC WITHOUT Routine 09/24/2021 4:32 Results for this DIFFERENTIAL, B AM CDT procedure ar e in the results section. MAGNESIUM, S Routine 09/23/2021 4:59 Results for this AM CDT procedure are i n the results section. CBC WITHOUT Routine 09/23/2021 4:59 Results for this DIFFERENTIAL, B AM CDT procedure ar e in the results section. BASIC METABOLIC Routine 09/23/2021 4:59 Results f or this PANEL, S/P AM CDT procedure are i n the results section. (TTE) 2D ECHO Routine 09/22/2021 2:33 Results for this DOPPLER COLOR PM CDT procedure are in the results section. ECG Routine 09/22/2021 9:37 Results for this AM CDT procedure are i n the results section. MAGNESIUM, S Timed 09/22/2021 8:47 Results for this AM CDT procedure are i n the results section. BASIC METABOLIC Timed 09/22/2021 8:47 Results f or this PANEL, S/P AM CDT procedure are i n the results section. CBC WITHOUT Timed 09/22/2021 8:47 Results for this DIFFERENTIAL, B AM CDT procedure ar e in the results section. RETICULOCYTES, B Routine 09/22/2021 8:43 Results for this AM CDT procedure are i n the results section. BASIC METABOLIC STAT 09/21/2021 7:43 Results f or this PANEL, S/P AM CDT procedure are i n the results section. CBC WITHOUT STAT 09/21/2021 7:43 Results for this DIFFERENTIAL, B AM CDT procedure ar e in the results section. CREATININE WITH Routine 09/21/2021 12:34 Results for this EGFR, S/P AM CDT procedure are i n the results section. CBC WITH Routine 09/21/2021 12:34 Results for this DIFFERENTIAL, B AM CDT procedure ar e in the results section. FOLATE, S Routine 09/21/2021 12:31 Results for this AM CDT procedure are i n the results section. VITAMIN B12 ASSAY, S Routine 09/21/2021 12:31 Res ults for this AM CDT procedure are i n the results section. VRE PCR Routine 09/20/2021 8:01 Results for this PM CDT procedure are i n the results section. FL CELIAC Routine 09/20/2021 12:07 Malignant Neoplasm Of Re sults for this PLEXUS/SPLANCHNIC PM CDT Pancreas procedure are in BLOCK INJECTION Adenocarcinoma ( HCC) the results Pain Cancer Associated secti on. ARIA COURSE COMPLETE Routine 08/13/2021 1:42 Resu lts for this TREATMENT PM CDT procedure are i n INFORMATION the results section. ARIA DAILY TREATMENT Routine 08/13/2021 1:42 Resu lts for this INFORMATION PM CDT procedure are i n the results section. ARIA DAILY TREATMENT Routine 08/12/2021 2:02 Resu lts for this INFORMATION PM CDT procedure are i n the results section. ARIA DAILY TREATMENT Routine 08/11/2021 2:10 Resu lts for this INFORMATION PM CDT procedure are i n the results section. ARIA DAILY TREATMENT Routine 08/10/2021 2:06 Resu lts for this INFORMATION PM CDT procedure are i n the results section. ARIA DAILY TREATMENT Routine 08/09/2021 12:40 Res ults for this INFORMATION PM CDT procedure are i n the results section. ARIA DAILY TREATMENT Routine 08/06/2021 3:24 Resu lts for this INFORMATION PM CDT procedure are i n the results section. ARIA DAILY TREATMENT Routine 08/05/2021 4:11 Resu lts for this INFORMATION PM CDT procedure are i n the results section. ARIA DAILY TREATMENT Routine 08/04/2021 4:01 Resu lts for this INFORMATION PM CDT procedure are i n the results section. ARIA COURSE COMPLETE Routine 08/04/2021 11:50 Res ults for this TREATMENT AM CDT procedure are i n INFORMATION the results section. ARIA DAILY TREATMENT Routine 08/03/2021 4:25 Resu lts for this INFORMATION PM CDT procedure are i n the results section. from Last [address] ANGIO CHEST PE PROTOCOL-Outside CT Body (10/10/2021 11:05 AM CDT) Specimen (Source) Anatomical Location Collection Method / Collectio n Time Received Time / Laterality Volume Narrative [facility] - 10/12/2021 4:40 PM CDT This order has been created and auto-finalized to support the import of outside images. If available, original i nterpretation can be found on the Media Tab in Chart Review, in Document V iewer, or as an image in QREADS. If a re-interpretation or overread is re quired please follow defined workflow. ?? Provider Not In System IMG CT PROCEDURES Performing Organization Address [facility]/ZIP Code Phon e Number IIMS IIMS NA XR CHEST 2V-Outside Chest Xray (10/10/2021 10:10 AM CDT) Specimen (Source) Anatomical Location Collection Method / Collectio n Time Received Time / Laterality Volume Narrative [facility] - 10/12/2021 4:35 PM CDT This order has been created and auto-finalized to support the import of outside images. If available, original i nterpretation can be found on the Media Tab in Chart Review, in Document V iewer, or as an image in QREADS. If a re-interpretation or overread is re quired please follow defined workflow. ?? Provider Not In System IMG DIAGNOSTIC IMAGING PROCE DURES Performing Organization Address [facility] Code Phon e Number II IIMS NA CT HEAD/BRAIN WO CON-Outside CT Neuro (10/10/2021 9:40 AM CDT) Specimen (Source) Anatomical Location Collection Method / Collectio n Time Received Time / Laterality Volume Narrative [facility] - 10/12/2021 4:36 PM CDT This order has been created and auto-finalized to support the import of outside images. If available, original i nterpretation can be found on the Media Tab in Chart Review, in Document V iewer, or as an image in QREADS. If a re-interpretation or overread is re quired please follow defined workflow. ?? Provider Not In System IMG CT PROCEDURES Performing Organization Address [facility] Code Phon e Number IIMS IIMS NA (ABNORMAL) Iron and Total Iron-Binding Capacity (09/24/2021 4:32 AM CDT) P athologist Signature Iron 34 (L) 35 - 145 09/24/2021 DTL mcg/dL 5:34 AM CDT Total Iron 184 (L) 250 - 400 09/24/2021 DTL Binding mcg/dL 5:34 AM CDT Capacity Percent 18 14 - 50 % 09/24/2021 DTL Saturation 5:34 AM CDT Specimen Anatomical Collection Method Collection Time Receive d Time (Source) Location / / Volume Laterality Blood (Blood, 09/24/2021 4:32 AM 09/25/19 22 5:13 Venous) CDT AM CDT Narciso Leach P.A.-C. LAB BLOOD ADD-ON Performing Organization Address City/[facility] Code Phon e Number [facility] - [address] [place], [place] [address] [facility] [place] [address] Laboratories-[facility] [address] [facility] (ABNORMAL) CBC without Differential (09/24/2021 4:32 AM CDT)Only the most recent of4 resultswithin the time period is included. [facility] gist Method Time Signature Hemoglobin 8.1 (L) 11.6 - 09/24/2021 DTL 15.0 g/dL 5:09 AM CDT Hematocrit 24.7 (L) 35.5 - 09/24/2021 DTL 44.9 % 5:09 AM CDT Erythrocytes 2.44 (L) 3.92 - 09/24/2021 DTL 5.13 5:09 AM CDT x10(12)/L MCV 101.2 (H) 78.2 - 09/24/2021 DTL 97.9 fL 5:09 AM CDT RBC Distrib Width 16.7 (H) 12.2 - 09/24/2021 DTL 16.1 % 5:09 AM CDT Platelet Count 218 157 - 371 09/24/2021 DTL x10(9)/L 5:09 AM CDT Leukocytes 6.7 3.4 - 9.6 09/24/2021 DTL x10(9)/L 5:09 AM CDT Specimen Anatomical Collection Method Collection Time Receive d Time (Source) Location / / Volume Laterality Blood (Blood, 09/24/2021 4:32 AM 09/25/19 22 4:57 Venous) CDT AM CDT Narciso Leach P.A.-C. LAB BLOOD ADD-ON Performing Organization Address City/State/[facility] Code Phon e Number [facility] - [address] [place], [place] [address] [facility] [place] [address] [facility] [address] (ABNORMAL) Basic Metabolic Panel (09/24/2021 4:32 AM CDT)Only the most recent of 4 resultswithin the time period is included. P athologist Signature Potassium, S 3.3 (L) 3.6 - 5.2 09/24/2021 DTL mmol/L 5:34 AM CDT Sodium, S 137 135 - 145 09/24/2021 DTL mmol/L 5:34 AM CDT Chloride, S 104 98 - 107 09/24/2021 DTL mmol/L 5:34 AM CDT Bicarbonate, S 22 22 - 29 09/24/2021 DTL mmol/L 5:34 AM CDT Anion Gap 11 7 - 15 09/24/2021 DTL 5:34 AM CDT BUN (Blood 7 6 - 21 09/24/2021 DTL Urea mg/dL 5:34 AM CDT Nitrogen), S Creatinine, S 0.67 0.59 - 09/24/2021 DTL 1.04 mg/dL 5:34 AM CDT eGFR-Non 84 >=60 09/24/2021 DTL Black/ mL/min/BSA 5:34 AM CDT Somali Comment: ----ADDITIONAL INFORMATION---- Estimated GFR calculated using the 2009 CKD_EPI creatinine equation. eGFR-Black/ >90 >=60 mL/min/BSA 2021 5:34 AM CDT DTL Comment: ----ADDITIONAL INFORMATION---- Estimated GFR calculated using the 2009 CKD_EPI creatinine equation. Calcium, Total, S 8.1 (L) 8.8 - 10.2 mg/dL 09/24/2021 5:34 AM CDT DTL Glucose, S 96 70 - 140 mg/dL 09/24/2021 5:34 AM CDT D TL Specimen Anatomical Collection Method Collection Time Receive d Time (Source) Location / / Volume Laterality Blood (Blood, 09/24/2021 4:32 AM 09/25/19 5:13 Venous) CDT AM CDT Narciso Leach P.A.-C. LAB BLOOD ADD-ON Performing Organization Address City/State/ZIP Code Phon e Number [facility] [address] [place], [place] [address] [place] [address] Magnesium (09/23/2021 4:59 AM CDT)Only the most recent of2 resultswithin the time period is included. P athologist Signature Magnesium, S 2.0 1.7 - 2.3 09/23/2021 DTL mg/dL 5:48 AM CDT Specimen Anatomical Collection Method Collection Time Receive d Time (Source) Location / / Volume Laterality Blood (Blood, 09/23/2021 4:59 AM 09/24/19 5:32 Venous) CDT AM CDT Narciso Leach P.A.-C. LAB BLOOD ADD-ON Performing Organization Address City/State/ZIP Code Phon e Number [address] [place] [address] (TTE) 2D ECHO DOPPLER COLOR (09/22/2021 2:33 PM CDT) Patholo gist Method Time Signature Ejection Fraction 57 MC CV EIMS Mid-Ascending Aorta 33 MC CV EIMS LV Mass Index 89 MC CV EIMS LV End-Diastolic 42 MC CV EIMS Diameter LV End-Systolic 29 MC CV EIMS Diameter MV E Velocity 0.40 MC CV EIMS MV A Velocity 0.70 MC CV EIMS MV E/A 0.57 MC CV EIMS MV e' Velocity 0.06 MC CV EIMS Medial MV e' Velocity 0.07 MC CV EIMS Lateral MV E/e' Medial 6.70 MC CV EIMS MV E/e' Lateral 5.70 MC CV EIMS Left ventricular 43 MC CV EIMS stroke volume index Cardiac Output 5.22 MC CV EIMS Cardiac Index 3.39 MC CV EIMS LV Interventricular 10 MC CV EIMS Septal Wall Thickness LV Posterior Wall 10 MC CV EIMS Thickness LV Relative Wall 48 MC CV EIMS Thickness TAPSE 26 MC CV EIMS Tricuspid Annular S? 0.19 MC CV EIMS TR Vmax 2.45 MC CV EIMS RA Pressure 5 MC CV EIMS RV Systolic Pressure 29 MC CV EIM S Estimated diastolic 10 MC CV EIMS pulmonary artery pressure AV mean gradient 5 MC CV EIMS Aortic valve area 2.48 MC CV EIMS Aortic Valve 0.60 MC CV EIMS Dimensionless Index LA Volume Index 43 MC CV EIMS Aortic Valve 1.40 MC CV EIMS Systolic Peak Velocity Anatomical Region Laterality Modality Other Specimen (Source) Anatomical Collection Method Collection Time Re ceived Time Location / / Volume Laterality 09/22/2021 12:58 PM CDT Impressions 09/22/2021 2:45 PM CDT There are no previous [facility] echocardiograms available for comparison. Anemia, thyrotoxicosis, or another high output state could contribute to the increased Doppler velocities (Hemoglobin 8.8 g/dL). LEFT VENTRICLE:Normal left ventricular c hamber size. Normal left ventricular wall thickness. Calculated 2-D linear left ventricular ejection fraction 57%. Left ventricular stroke volume index 43 ml/m2. Left ventricular cardiac index 3.39 l/mi n/m2. No regional wall motion abnormalities. Grad e 1/3 left ventricular diastolic dysfunction, consistent with low to normal left ventricular filling pressure. RIGHT VENTRICLE:Borderline enlarged righ t ventricular chamber size. Normal right ventricular systolic function. Estimated right ventricular systolic pressure 29 mmHg (systolic blood pressure 131 mmHg). ATRIA:Moderately enlarged left atrial si ze. Left atrial volume index 43 ml/m2. Mildly enlarged right atrial size by visual estimate. CARDIAC VALVES:Trileaflet aortic valve. Sclerotic aortic valve. Mild aortic valve regurgitation. Thickened mitral valve. Calcified mitral annulus. Mild mitral valve regurgitation. Normal pulmonary valve. Normal pulmonary valve systolic velocities. Trivial pulmonary valve regurgitation. N ormal tricuspid valve. Mild tricuspid valve regurgitation. OTHER ECHO FINDINGS:Normal inferior vena cava size with normal inspiratory collapse (>50%). Normal mid ascending aorta diameter of 33 mm. Abdominal aorta incompletely visualized. Normal abdominal aor ta Doppler flow pattern. No atrial level shunt by color flow imaging. No intracardiac mass or th rombus, but the left atrial appendage cannot be visualized adequately with transthoracic echo to exclude thrombus in this location. Tiny anterior pericardial effusion. For the complete report, see the Order-L evel Documents. Narrative 09/22/2021 2:45 PM CDT For the complete report, see the Order-Level Documents. Final Impressions 1. Borderline enlarged right ventricular chamber size, normal systolic function, estimated right ventricular systolic pressure 29 mmHg (systolic blood pressure 131 mmHg). 2. Normal left ventricular chamber size, no regional wall motion abnormalities, calculated 2-D linear ejection fraction 57%. 3. Grade 1/3 left ventricular diastolic dysfunction, consistent with low to normal left ventricular filling pressure. 4. Sclerotic aortic valve. 5. Mild aortic valve regurgitation. 6. Tiny anterior pericardial effusion. Procedure Note Renata Limon M.D., M.P.H. - 2021 For the complete report, see the Order-L evel Documents. Final Impressions 1. Borderline enlarged right ventricular chamber size, normal systolic function, estimated right ventricular systolic pressure 29 mmHg (systolic blood pressure 131 mmHg). 2. Normal left ventricular chamber size, no regional wall motion abnormalities, calculated 2-D linear ejection fraction 57%. 3. Grade 1/3 left ventricular diastolic dysfunction, consistent with low to normal left ventricular filling pressure. 4. Sclerotic aortic valve. 5. Mild aortic valve regurgitation. 6. Tiny anterior pericardial effusion. Findings There are no previous [facility] echoca rdiograms available for comparison. Anemia, thyrotoxicosis, or another high output state could contribute to the increased Doppler velocities (Hemoglobin 8.8 g/dL). LEFT VENTRICLE:Normal left ventricular c hamber size. Normal left ventricular wall thickness. Calculated 2-D linear left ventricular ejection fraction 57%. Left ventricular stroke volume index 43 ml/m2. Left ventricular cardiac index 3.39 l/min/m2. No regional wall motion abnormalities. Grade 1/3 left ventricular diastolic dysfunction, consistent with low to normal left ventricular filling pressure. RIGHT VENTRICLE:Borderline enlarged righ t ventricular chamber size. Normal right ventricular systolic function. Estimated right ventricular systolic pressure 29 mmHg (systolic blood pressure 131 mmHg). ATRIA:Moderately enlarged left atrial si ze. Left atrial volume index 43 ml/m2. Mildly enlarged right atrial size by visual estimate. CARDIAC VALVES:Trileaflet aortic valve. Sclerotic aortic valve. Mild aortic valve regurgitation. Thickened mitral valve. Calcified mitral annulus. Mild mitral valve regurgitation. Normal pulmonary valve. Normal pulmonary valve systolic velocities. Tri vial pulmonary valve regurgitation. Normal tricuspid valve. Mild tricuspid valve regurgitation. OTHER ECHO FINDINGS:Normal inferior vena cava size with normal inspiratory collapse (>50%). Normal mid ascending aorta diameter of 33 mm. Abdominal aorta incompletely visualized. Normal abdominal aorta Doppler flow pattern. No atrial level shunt by color flow imaging. No intracardiac mass or thrombus, but the left atrial appendage cannot be visualized adequately with transthoracic echo to exclude thrombus in this location. Tiny anterior pericardial effusion. For the complete report, see the Order-L evel Documents. Narciso Leach P.A.-C. CV ECHO PROCEDURES ECG 12 Lead (09/22/2021 9:37 AM CDT) P athologist Signature Ventricular Rate 90 BPM MUSE ECG/Min MS Interval 140 ms MUSE QRSD Interval 88 ms MUSE QT Interval 336 ms MUSE QTC Interval 411 ms MUSE P [place] 53 degrees MUSE R [place] 6 degrees MUSE T Wave [place] 79 degrees MUSE Specimen Anatomical Collection Method Collection Time Receive d Time (Source) Location / / Volume Laterality 09/22/2021 9:37 AM 2 9:49 CDT AM CDT Impressions MUSE - 09/22/2021 9:49 AM CDT Normal sinus rhythm Normal ECG No previous ECGs available Reviewed by ENZO Zuñiga Narrative This result has an attachment that is no t available. Procedure Note Huey Simeon M.D. - 09/22/2021Fo rmatting of this note might be different from the original. IMPRESSION: Normal sinus rhythm Normal ECG No previous ECGs available Reviewed by ENZO Zuñiga Narciso Leach P.A.-C. ECG ORDERABLES Performing Organization Address City/State/ZIP Code Phon e Number MUSE MUSE NA Reticulocytes (09/22/2021 8:43 AM CDT) athologist Signature Reticulocytes, B 1.43 0.60 - 09/22/2021 DTL 2.71 % 10:02 AM CDT Absolute 38.5 30.4 - 09/22/2021 DTL Reticulocyte 110.9 10:02 AM CDT x10(9)/L Specimen Anatomical Collection Method Collection Time Receive d Time (Source) Location / / Volume Laterality Blood 09/22/2021 8:43 AM 2 9:49 CDT AM CDT Narciso Leach P.A.-C. LAB BLOOD ADD-ON Performing Organization Address City/State/ZIP Code Phon e Number [facility] - [address] [place], [place] [address] [facility] [place] [address] Laboratories-[facility] [address] [facility] (ABNORMAL) CBC with Differential, Blood (09/21/2021 12:34 AM CDT) [facility] Method Time Signature Hemoglobin 7.9 (L) 11.6 - 09/21/2021 DTL 15.0 g/dL 12:52 AM CDT Hematocrit 23.8 (L) 35.5 - 09/21/2021 DTL 44.9 % 12:52 AM CDT Erythrocytes 2.36 (L) 3.92 - 09/21/2021 DTL 5.13 12:52 AM CDT x10(12)/L MCV 100.8 (H) 78.2 - 09/21/2021 DTL 97.9 fL 12:52 AM CDT RBC Distrib Width 16.3 (H) 12.2 - 09/21/2021 DTL 16.1 % 12:52 AM CDT Platelet Count 191 157 - 371 09/21/2021 DTL x10(9)/L 12:52 AM CDT Leukocytes 5.6 3.4 - 9.6 09/21/2021 DTL x10(9)/L 12:52 AM CDT Neutrophils 4.55 1.56 - 09/21/2021 DTL 6.45 12:52 AM CDT x10(9)/L Lymphocytes 0.30 (L) 0.95 - 09/21/2021 DTL 3.07 12:52 AM CDT x10(9)/L Monocytes 0.70 0.26 - 09/21/2021 DTL 0.81 12:52 AM CDT x10(9)/L Eosinophils 0.05 0.03 - 09/21/2021 DTL 0.48 12:52 AM CDT x10(9)/L Basophils <0.03 0.01 - 09/21/2021 DTL 0.08 12:52 AM CDT x10(9)/L Specimen Anatomical Collection Method Collection Time Receive d Time (Source) Location / / Volume Laterality Blood (Blood, 09/21/2021 12:34 09/21/2021 Venous) AM CDT 12:46 AM CDT Thelma Allen LAB BLOOD ADD-ON Performing Organization Address City/State/ZIP Code Phon e Number [facility] - [address] [place], [place] [address] [facility] [place] [address] Creatinine with Estimated GFR (09/21/2021 12:34 AM CDT) P athologist Signature Creatinine, S 0.64 0.59 - 1.04 09/21/2021 DTL mg/dL 1:16 AM CDT eGFR-Non 85 >=60 09/21/2021 DTL Black/ mL/min/BSA 1:16 AM CDT Somali Comment: ----ADDITIONAL INFORMATION---- Estimated GFR calculated using the 2009 CKD_EPI creatinine equation. eGFR-Black/ >90 >=60 mL/min/BSA 2021 1:16 AM CDT DTL Comment: ----ADDITIONAL INFORMATION---- Estimated GFR calculated using the 2009 CKD_EPI creatinine equation. Specimen Anatomical Collection Method Collection Time Receive d Time (Source) Location / / Volume Laterality Blood (Blood, 09/21/2021 12:34 09/21/2021 1:02 Venous) AM CDT AM CDT Thelma Allen LAB BLOOD ADD-ON Performing Organization Address City/[facility]/ZIP Code Phon e Number [facility] - [address] [place], [place] [address] [facility] [place] [address] Laboratories-[address] Folate (09/21/2021 12:31 AM CDT) P athologist Signature Folate, S 17.5 >=4.0 mcg/L 09/22/2021 DTL 11:37 AM CDT Specimen Anatomical Collection Method Collection Time Receive d Time (Source) Location / / Volume Laterality Blood (Blood, 09/21/2021 12:31 09/22/2021 Venous) AM CDT 10:25 AM CDT Narciso Leach P.A.-C. LAB BLOOD ADD-ON Performing Organization Address City/State/ZIP Code Phon e Number [facility] - [address] [place], [place] [address] [facility] [place] [address] [facility] [address] [facility] Vitamin B12 Assay (09/21/2021 12:31 AM CDT) athologist Signature Vitamin B12 597 180 - 914 09/22/2021 DT Assay, S ng/L 11:38 AM CDT Comment: ----ADDITIONAL INFORMATION---- In patients being evaluated for vitamin B12 deficiency who have intrinsic factor blocking antibodie s (IFBA), false elevations of B12 may occur due to IFBA interference thus potentially obscuring a physiological de ficiency of B12. If observed B12 concentrations are disco rdant with clinical presentation, measurement of methylmalon ic acid (MMA) should be considered. Specimen Anatomical Collection Method Collection Time Receive d Time (Source) Location / / Volume Laterality Blood (Blood, 09/21/2021 12:31 09/22/2021 Venous) AM CDT 10:25 AM CDT Narciso Leach P.A.-C. LAB BLOOD ADD-ON Performing Organization Address City/[facility] Code Phon e Number [facility] - [address] [place], [place] [address] [place] [address] [place] [address] Laboratories-[address] VRE PCR (09/20/2021 8:01 PM CDT) Patholo gist Method Time Signature Specimen Swab, 09/22/2021 DTL Source Perirectal 10:53 PM CDT VRE PCR Negative Negative 09/22/2021 DTL 10:53 PM CDT Comment: ----ADDITIONAL INFORMATION---- This test was developed using an analyte specific reagent. Its performance characteristics were determined by [facility] in a manner consistent with CLIA requirements. This test has not bee n cleared or approved by the U.S. Food and Drug Administration. Specimen Anatomical Collection Method Collection Time Receive d Time (Source) Location / / Volume Laterality Varies 09/20/2021 8:01 PM 8:53 (Perirectal) CDT PM CDT Walt Kinsey M.D., Ph.D. LAB MICROBIOLOGY - GENERAL O RDERABLES Performing Organization Address City/State/ZIP Code Phon e Number [facility] - [address] [place], [place] [address] [facility] [place] [address] [facility] [address] [place] Celiac Plexus/Splanchnic Block Injection (09/20/2021 12:07 PM CDT) Specimen (Source) Anatomical Location Collection Method / Collectio n Time Received Time / Laterality Volume Narrative Dillon Ovalle M.D. - 09/20/2021 11 :09 AM CDT Dillon Ovalle M.D. ? 09/20/2021 ??2:23 PM [place] Celiac Plexus/Splanchnic Block Inject ion Date/Time: 09/20/2021 11:09 AM Performed by: Dillon Ovalle M.D. Authorized by: Kota Sanches D.O. , M.P.H. Care team members present 1. Allison Bowens L.P.N. 2. Lane Hernandez M.D. PROCEDURE SUMMARY Indications: Cancer pain Pre-procedural pain: 10/03 Post-procedural pain: 04/05 Site: advanced procedures Procedures: splanchnic/celiac plexus blo ck Splanchnic/celiac plexus block: neurolyt ic Needle or RF cannula: Spinal Needle size: 22 G Needle length: 5 in Patient position: prone IMAGING Fluoroscopic image guidance used to loca lize target, identify at risk structures, and dynamically used to dire ct therapy to the target. Image(s) acquired and saved. SEDATION MEDICATIONS Midazolam (mg): 1 Fentanyl (mcg): 50 INJECTED MEDICATIONS The injected medication(s) listed was di vided equally between the identified injection location(s) Total volume of injectate (mL): 36 Total steroid in injectate (mg): 0 10 mL bupivacaine-EPINEPHrine (PF) 0.5 % -1:200,000 10 mL lidocaine 20 mg/mL 1 mL iohexoL 300 mg iodine/mL 15 mL ethyl alcohoL (ethanoL) 99 % (16 m L) PROCEDURE DETAILS ?? Splanchnic/celiac plexus block: Prior to the procedure, intravenous access was obtained and the Intravaneous fluids were given prior to the start of the procedure and continued to run throu ghout the procedure. Using fluoroscopy, the bilateral anterolateral aspects of the L1 vertebral body were visualized using a posterior obliqu e approach. Skin entry points were identified over these targets, staying a djacent to the lateral aspect of the vertebral body and inferior to the 1 2th ribs. Using fluoroscopic guidance, spinal needles were inserted a nd advanced incrementally until the final needle position was just anter ior to the L1 vertebral body which was verified with lateral and AP fluoros copic views. After negative aspiration, contrast was injected and co nfirmed appropriate linear spread along the anterior vertebral bodies, wit hout evidence of intravascular, intrathecal, intracrural, intramuscular, or intradiscal uptake. Following this the solution was injected on each s quincy. A directed sensorimotor examination of the lower extremities was performed after waiting an appropriate amount of time and did not s how development of any new neurologic deficits. At this point the n eurolytic agent was injected slowly and incrementally, with serial ne gative aspirations, through each needle. The needles were then flushed wi th local anesthetic as they were withdrawn from the skin. The patient hayes erated the procedure well and there were no apparent complications. Af ter appropriate observation, the patient was dismissed in good condition under their own power. ?? ADDITIONAL PROCEDURE COMMENTS Pre-procedural fluid bolus (500 mL) was not completed prior to the procedure. ??She tolerated the procedure extremely well. Post-procedurally her blood pressure was low and she was m ildly symptomatic when she sat up at the bedside. She was assess by the pa in fellow (Dr. Hernandez) and more fluid was given as well as some phenylep hrine. CONSENT Consent obtained: written UNIVERSAL PROTOCOL All relevant documentation and testing w ere reviewed and available. All required blood products, implants, devic es and or special equipment were made available as applicable. Pre-proced ure verification was conducted and the correct site was marked if required. A fire risk assessment was done as applicable. The procedural time-out t o verify correct patient, correct side/site, and procedure was conducted p rior to performing the procedure and confirmed in a procedural pause. PRE-PROCEDURE DETAILS Procedure purpose: therapeutic Appropriate hand hygiene, gown, cap, mas k, protective eyewear, sterile gloves, skin preparation, sterile drape, and strict aseptic technique were utilized as applicable for the procedure : yes ?? Site preparation: chlorhexidine SEDATION / ANESTHESIA Anesthesia method: local infiltration an d moderate sedation Local infiltrate type: lidocaine I completed the presedation assessment f orm and supervised the sedation. Planned sedation level achieved: yes ?? Present during sedation (intra-service t beth). A trained independent observer (e.g. RN) assisted with monitor ing the patient's level of consciousness and physiological status t hroughout the procedure (see nursing documentation). ATTESTATION STATEMENT A resident or fellow participated in the procedure, and the configuration consultant was present for the entire procedure. OPERATIVE NOTE INFORMATION Specimens: 0 Drains: 0 Estimated blood loss: 0 Implants: 0 Kota Sanches D.O., M.P.H. FLUORO GUIDED PAIN PRO CEDURES Aria Course Complete Treatment Information (08/13/2021 1:42 PM CDT)Only the most recent of2 resultswithin the time period is included. Flattr Method Time Signature Course ID [id number] TAVERA ARIA s Course Start Date [facility] BANNERA 2 12:59 CDT Course End Date [facility] 2 09:52 CDT First Treatment [facility] 2 15:29 CDT Last Treatment [facility] Date 2 13:42 CDT Treatment Elapsed 39 TAVERA ARIA Days Reference Point [id number] TAVERA ARIA Dosage Given to 5000 TAVERA ARIA Date cGy Plan ID [id number] TAVERA ARIA s Fractions Treated 25 TAVERA ARIA to Date Planned Total 25 TAVERA ARIA Fractions Prescribed Dose 200 TAVERA ARIA Per Fraction Prescription Dose 5000 TAVERA ARIA in cGy Plan Primary [id number] TAVERA BANNERA Reference Point Specimen (Source) Anatomical Collection Method Collection Time Re ceived Time Location / / Volume Laterality 08/13/2021 1:42 PM CDT Provider Not In System RADIATION ONCOLOGY ORDERABLE S Performing Organization Address City/State/ZIP Code Phon e Number TAVERA ARIA TAVERA ARIA na Aria Daily Treatment Information (08/13/2021 1:42 PM CDT)Only the most recent of 9 resultswithin the time period is included. Flattr Method Time Signature Course ID [id number] TAVERA ARIA s Course Start Date TAVERA BANNERA 2 12:59 CDT First Treatment [facility]ERA ARIA Date 2 15:29 CDT Last Treatment [facility] ARIA Date 2 13:42 CDT Treatment Elapsed 39 TAVERA ARIA Days Reference Point [id number] TAVERA ARIA Dosage Given to 5000 TAVERA ARIA Date cGy Session Dosage 200 TAVERA ARIA Given Plan ID [id number] AYSE SOUZAA s Fractions Treated 25 TAVERA ARIA to Date Planned Total 25 TAVERA ARIA Fractions Prescribed Dose 200 TAVERA ARIA Per Fraction Prescription Dose 5000 TAVERA ARIA in cGy Plan Primary [id number] TAVERA ARIA Reference Point Specimen (Source) Anatomical Collection Method Collection Time Re ceived Time Location / / Volume Laterality 08/13/2021 1:42 PM CDT Provider Not In System RADIATION ONCOLOGY ORDERABLE S Performing Organization Address City/State/ZIP Code Phon e Number AYSE WALTER na from Last 3 Months Insurance Payer Benefit Plan / Subscriber ID Effective Phone Address T ype Group Dates MEDICARE MEDICARE A AND [id number] 2007-Pres [address] [place] [address] MEDICA MEDICA PRIME [id number] 2017-Prese [phone] [address] [employer] [address] [place] [address] Advance Directives For more information, please contact: [phone] Latest Code Status on File Code Status Date Activated Date Inactivated Comments Full Code 09/20/2021 8:50 PM 09/24/2021 5:03 PM Full Code: Discussed Care Teams Manager Digital Ad Operations Relationship Specialty Start Date End Date Elsewhere, Pcp PCP - General Internal Medicine 09/24/21
--- OUTSIDE RECORDS SUMMARY | 2021-11-03 07:00 | XMS_ITS | Encounter Summary ---
:1940 Author Organization [facility] Address [address] [place] [address] Care Team Providers Name Role Phone Elsewhere, Pcp Primary Care Provider Unavailable Reason for Referral Outpatient (Routine) - Closed Specialty Diagnoses / Procedures Referred By Contact Refer red To Contact Diagnoses Malignant Neoplasm Of Pancreas Adenocarcinoma (HCC) Pain Cancer Associated Kota Sanches [facility] Procedures [place] Celiac Plexus/Splanchnic Block Injection Tuan.Jersey, M.P.H. [address] [place] [phone] Referral ID Status Reason Start Date Expiration Date Visits Requ ested Visits Authorized [id number] Closed 09/16/2021 09/16/2022 1 1 Reason for Visit Outpatient (Routine) - Closed Specialty Diagnoses / Procedures Referred By Contact Refer red To Contact Diagnoses Malignant Neoplasm Of Pancreas Adenocarcinoma (HCC) Pain Cancer Associated Kota Sanches [facility] Procedures FL Celiac Plexus/Splanchnic Block Injection Tuan.Jersey, M.P.H. [address] [place] [phone] Referral ID Status Reason Start Date Expiration Date Visits Requ ested Visits Authorized [id number] Closed 09/16/2021 09/16/2022 1 1 Encounter Details Date Type Department Care Team Description 09/20/2021 - Hospital Encounter [facility] Mai Sanches D.O., M.P.H. [address] [place] [phone] Malignant Neoplasm Of Pancreatic Duct (H CC) (Primary Dx); 09/24/2021 Amelie Karimi Haixia, M.D., Ph.D. [address] [place] [phone] Malignant Neoplasm Of Pancreas Adenocarc inoma (HCC); [facility] [address] [place] [phone] Pain Cancer Associated; Miranda Butler M.D. [address] [place] [phone] Lightheadedness; Building, Fourth Hypotension Orthostatic Floor [address] [place] [address] Social History Tobacco Use Types Packs/Day Years [...] or relatives? How often do you attend protestant or More than 4 times per year 06/19/2021 zoroastrian services? Do you belong to any clubs or Yes 06/19/2021 organizations such as protestant groups, unions, fraternal or athletic groups, or [...] place to sleep or slept in a jail (including now)? Education Answer Date Recorded What is the highest level of school you have Some college, n o degree 10/23/2020 completed or the highest degree you have received? Sex Assigned at Date Recorded Female 07/03/2017 2:07 PM CDT documented as of this encounter Last Filed Vital Signs Vital Sign Reading [...] Mass Index 17.52 09/21/2021 2:43 PM CDT documented in this encounter Discharge Summaries Lolly Redd P.A.-C. - 09/24/2021 2:27 PM CDT DISCHARGE SUMMARY BRIEF OVERVIEW Discharge Hospital: [facility] Discharge Provider: Miranda Hyman M.D. Discharge Provider Team: Hospital Internal Medicine ([facility]) - [facility] Medicine ([facility]) Primary Care Providers: Elsewhere, Pcp (General) No address on file PCP Phone Number: None PCP Fax Number: None Admission Date: 09/20/2021 Discharge Date: 09/24/21 PRINCIPAL DIAGNOSIS Hypotension Orthostatic SECONDARY DIAGNOSES Principal Problem: Hypotension Orthostatic Active Problems: Malignant Neoplasm Of Pancreas Adenocarcinoma (HCC) Hypokalemia Hypoparathyroidism (HCC) Lightheadedness Malignant Neoplasm Of Pancreatic Duct (HCC) Resolved Problems: Abdominal Pain DISCHARGE DISPOSITION Home or Self Care [1] ACTIVE ISSUES REQUIRING FOLLOW UP NUTRITION Nutrition dismissal summary completed by: Rhonda Melendez RDN, KYUNG Date Completed: 09/21/2021 Phone contact: Height: 167.6 cm Weight: 49.7 kg Admission Weight: 45.8 kg BMI (Calculated): 17.7 kg/m?? Diet Order: General with nutritional supplement drinks 3x/day Estimated Needs: Total Calorie Needs: 7886-5818 (+ 500 calories per day for weight gain) calories/day Method to Estimate Energy Needs: [place]att[place] (Basal + 20%) Weight Used for Equation Calculations: 45.8 kg Total Protein Needs: 55 - 69 grams/day Method to Estimate Protein Needs (g/kg): 1.2 - 1.5 gm/kg Weight Used to Calculate Protein Needs (Kg): 45.8 kg Increase nutrition intake with small, frequent meals Medical food supplement(s) of choice Nutrition Discharge Plan: Patient was assessed as severely malnourished during this hospitalization based upon the ASPEN criteria. ??? Outpatient follow-up recommended by RDN: Recommend PCP monitor patient and refer for outpatient follow-up with flooring grader re malnutrition as indicated 1. Continue florinef at the dose stated above until primary care provider advises otherwise. Primarycare provider also to determine need for uptitration/discontinuation of this medication as well as to evaluate the need to continue sodium tablets. While on florinef you should continue with PPI (pantoprazole or omeprazole) for stomach protection. If the florinef is discontinued then the PPI may be discontinued. 2. Consideration should be given to compression stockings if additional need for blood pressure support is needed. 3. Primary care to follow electrolytes and determine the need for ongoing potassium supplementation as you did require this during your hospitalization. OUTPATIENT FOLLOW UP For appointment details refer to your Patient Appointment Guide. TEST RESULTS PENDING AT DISCHARGE Pending Labs None DETAILS OF HOSPITAL STAY REASON FOR ADMISSION Hypotension Orthostatic HOSPITAL COURSE Azeb العراقي is a 81 y.o. female with a past medical history of hypothyroidism on levothyroxine supplementation, locally advanced, node positive pancreatic adenocarcinoma status post chemotherapy with FOLFIRINOX and chemoradiation, which was completed in July of 2021, who had been having intense abdominal pain stemming from pancreatic adenocarcinoma. As such, she had a celiac plexus block on 09/20 and experienced postprocedure lightheadedness and hypotension- systolic blood pressures in 60 mm Hg. She received a couple of boluses of normal saline and was admitted for overnight observation status. On arrival to the floor, she was hemodynamically stable and her systolic blood pressures were around 130 m mHg. She denied any headache, nausea, vomiting, shortness of breath, lightheadedness or dizziness. Says felt that her pain was very well controlled after the celiac plexus block. Her hemoglobin was noted to be 7.9 at the time of admission from a basline of around 10.5 in December 2020. The following morning, this had improved to 8.4 g/dl without intervention. Hgb was 8.1 on the day of dismissal. Potassium was 3.3 for which she was given supplementation. She was noted to have significant orthostatic hypotension and was given a fluid bolus for this whichdid not provide relief. After 36 hours of continued symptoms, patient was started on salt tablets and Fludrocortisone with improvement of her symptoms. Plans will be to follow up with primary care sharon galaviz for ongoing titration of these medications. At the time of dismissal both her and her felt safe for dismissal to home. Appointment was made with her PCP and new medications were sent to her pharmacy (PPI, florinef, and salt tablets). MEDICATIONS CHANGED DURING THIS HOSPITAL STAY Medications stopped: lisinopril Medications changed: none Medications added: florinef, PPI, salt tablets CONSULTS ORDERED DURING THIS ADMISSION IP CONSULT TO DIETITIAN CONDITION AT DISCHARGE Stable/Improved The above plan of care was discussed with Dr. Hmyan, HIM tax consultant. I saw and evaluated Azeb العراقي today and provided counseling [id number] at bedside. I personallyspent a total of greater than 30 minutes in counseling and coordination of care as described above to facilitate the hospital discharge. Discharge instructions were provided to the patient and caregiver(s). Patient was seen and examined a couple times today. Once with her . She feels comfortable fordischarge to home with family support. New medications and plans for follow-up were reviewed with her. I was also able to speak with the pain service that the patient had no pain about comfortable for dismissal to home today. documented in this encounter Discharge Instructions Discharge InstructionsVivien Snyder - 09/21/2021 7:25 AM CDT You were discharged from the [place] [address] ([facility]) Service. Please identify this service name if youcall with questions after hospitalization. [facility] experts agree: You should get a COVID-19 vaccine as soon as it's available to you. The vaccines that we???re recommending have been approved for safe use. [facility] will continue to coordinate with state and local governments on future vaccine distribution phases. o If your primary care provider is at [facility] and you plan to receive your vaccination at [facility], please ensure that you have activated your Patient Portal at [employer] to allow [facility] to communicate to you about the scheduling process. Practice social distancing, wear a mask properly outside your home, wash your hands frequently, andfollow your state and local recommendations until the spread has stopped. The vaccine may not be recommended to those with certain health conditions. Talk to your health care provider if you have questions about receiving the vaccine. Discharge Instr - Rhonda Miller RDN, KYUNG - 09/21/2021 3:09 PM CDT NUTRITION Nutrition dismissal summary completed by: Rhonda Melendez RDN, KYUNG Date Completed: 09/21/2021 Phone contact: Height: 167.6 cm Weight: 49.7 kg Admission Weight: 45.8 kg BMI (Calculated): 17.7 kg/m?? Diet Order: General with nutritional supplement drinks 3x/day Estimated Needs: Total Calorie Needs: 5838-4469 (+ 500 calories per day for weight gain) calories/day Method to Estimate Energy Needs: [place]att[place] (Basal + 20%) Weight Used for Equation Calculations: 45.8 kg Total Protein Needs: 55 - 69 grams/day Method to Estimate Protein Needs (g/kg): 1.2 - 1.5 gm/kg Weight Used to Calculate Protein Needs (Kg): 45.8 kg Increase nutrition intake with small, frequent meals Medical food supplement(s) of choice Jimena Mendoza - 09/24/2021 1:10 PM CDT Take a copy of this after visit summary to your appointment(s). [place], [place] October 05, 2021- Monday --11:00 am - Hospital Follow-Up with Dr. Kelley, primary care provider, at [facility] You may have outpatient appointments at [facility] that changed during your hospitalization. Refer to your [facility] Patient Visit Guide (PVG) for the most current schedule of appointments and detailed instructions of tests/procedures. Call [phone], if you did not receive an PVG or need to CANCEL any [facility] appointment(s). AttachmentsThe following attachments cannot be sent through Care Everywhere. Pantoprazole (By mouth) (Lao)Sodium Chloride (By mouth) (Lao) Fludrocortisone Acetate (By mouth) (Lao)documented in this encounter Medications at Time of Discharge Medication Sig Dispensed Refills Start Date End Date diphenoxylate-atropine Take 1 tablet by 0 022 (LOMOTIL) 2.5-0.025 mg mouth 4 (four) per tablet times a day as needed for diarrhea. fludrocortisone Take 1 tablet (0.1 30 tablet 0 09/25/2021 (FLORINEF) 0.1 mg tablet mg total) by mouth daily. levothyroxine (SYNTHROID, 0 09/12/2020 LEVOTHROID) 75 mcg tablet lisinopriL Take 1 tablet (20 0 09/24/2021 (PRINIVIL,ZESTRIL) 20 mg mg total) by mouth tablet daily. ON HOLD loperamide (IMODIUM A-D) TAKE 2 CAPS AT 48 capsule 1 021 2 mg capsuleIndications: ONSET OF DIARRHEA, Malignant Neoplasm Of THEN 1 CAP EVERY Pancreas (HCC) 2HRS UNTIL DIARRHEA FREE FOR 12HRS. MAY TAKE 2 CAPS EVERY 4HRS AT NIGHT ondansetron (ZOFRAN) 8 mg Take 1 tablet (8 mg 30 tablet 3 0 06/07/2020 tabletIndications: total) by mouth Malignant Neoplasm Of every 8 (eight) Pancreas Adenocarcinoma hours as needed for (HCC) nausea or vomiting (unrelieved by prochlorperazine). oxyCODONE (ROXICODONE) 5 Take 5-10 mg by 0 2021 mg immediate release mouth every 4 tablet (four) hours as needed. pantoprazole (PROTONIX) Take 1 tablet (40 30 tablet 0 09/25 40 mg EC tablet mg total) by mouth every morning before breakfast. prochlorperazine TAKE ONE TABLET BY 0 08/20/2021 (COMPAZINE) 10 mg tablet MOUTH EVERY 6 HOURS NEEDED FOR NAUSEA AND VOMITING traMADoL (ULTRAM) 50 mg Take 1-2 tablets 180 tablet 0 2020 tabletIndications: (50-100 mg total) Chronic Pain/Nonacute by mouth every 6 Pain (six) hours as needed for pain Indications: Chronic Pain/Nonacute Pain. [id number] Take by mouth. 0 2020 tawana (Citracal-D3 Maximum Taking 3-4 daily Plus) 325 mg-12.5 mcg -2.75 mg tablet ESTRIOL MICRONIZED, BULK, Three Times Weekly 0 MISC hydrocortisone Insert 25 mg into 0 01/20/2021 (ANUSOL-HC) 25 mg the rectum. suppository hydrocortisone (HYTONE) Apply topically. 0 2020 2.5 % cream ketoconazole (NIZORAL) 2 MASSAGE INTO TO 0 2020 % cream AFFECTED AREA ON FEET 1-2X DAILY UNTIL RESOLVED lidocaine-prilocaine Apply 1 application 30 g 0 2020 (EMLA) 2.5-2.5 % cream topically as needed for pain (30 minutes prior to port access). magnesium oxide (MAG-OX) Take 400 mg by 0 021 400 mg (241.3 mg mouth. Taking 4 magnesium) tablet tablets daily nystatin (MYCOSTATIN) Take 5 mL (500,000 280 mL 0 2020 100,000 unit/mL Units total) by suspension mouth 4 (four) times a day. Swish in mouth and swallow. sodium chloride 1 gram Take 1 tablet (1 g 42 tablet 0 09/2410/08/2021 tablet total) by mouth 3 (three) times a day with meals for 14 days. documented as of this encounter Progress Notes Lisa Hernandez, Pharm.D., R.Ph. - 09/24/2021 12:45 PM CDT Pharmacist Progress Note 81 y.o. female with pancreatic adenocarcinoma admitted for hypotension following celiac plexus block. PMH: HTN, cataracts, hypothyroidism, osteopenia Hematology/Oncology history: ?? Pancreatic adenocarcinoma - initially diagnosed 02/2020 ?? 06/14-06/15: FOLFIRINOX (24 cycles) ?? 07/16-08/15: chemoradiation with capecitabine DVT prophylaxis: none ID prophylaxis: none GI prophylaxis: none Home medications: ?? Held: Citracal D3, lisinopril, tramadol, sherman ?? Changed: none Patient own medications: None ASSESSMENT / PLAN # Hypotension ?? Ongoing orthostatic hypotension with SBP 130-140 while laying down, but falls to 60-70 when standing, pt has been noting symptoms for last three weeks that worsened after celiac plexus block ?? Has received adequate crystalloid fluids plus PO intake ?? Home lisinopril held ?? TTE revealed normal LV with EF 57%, grade 1/3 LV diastolic dysfunction, borderline enlarged RV size with normal function, mild aortic valve regurgitation ?? Initiated fludrocortisone 0.1 mg tabs daily and salt tabs TID with meals # Pain ?? Significant pain relief from celiac plexus block ?? Has PRN oxycodone available, has not needed Changes to medications anticipated at discharge: new fludrocortisone, new salt tabs, stop lisinopril? Lisa Hernandez PharmJoann., R.Ph. The recommendations contained in this note are based on information available at the time of documentation and may not reflect changes in the care plan discussed after the time of signing. Narciso Leach P.A.-C. - 09/23/2021 10:25 AM CDT [place] [id number] ([facility]) Progress Notes SUBJECTIVE Azeb العراقي is a 81 y.o. female seen on Med 10 morning rounds. Patient doing well, no acute events overnight. Overnight, was able to walk to the bathroom without feeling dizzy. However, had an episode of feeling flushed and dizzy this morning with standing, blood pressure reflected this. She feels improved from yesterday. She lives at home with her and is able to feel her symptoms coming on, prompting her to sit/lie down. She has not had any recent falls. I have reviewed the current medication list. OBJECTIVE VITAL SIGNS BP 101/57 Pulse 106 Temp 36.7 ??C (Oral) Resp 18 Ht 167.6 cm Wt 49.2 kg SpO2 99% BMI 17.52 kg/m?? PHYSICAL EXAM General: Patient seen sitting at the edge of bed, no acute distress Mental: Alert and oriented X3. Responds appropriately to questions. ENT: Oral mucosa pink and moist. No lesions noted. Heart: Regular rhythm and rate, no murmurs. Dorsalis pedis and posterior tibial pulses 2+ bilaterally, no edema noted Lungs: Clear to auscultation billaterally; no wheezes, rhonchi or rales. Respirations even and non-labored on room air. Abdomen: Soft, nontender, nondistended. Active bowel sounds x 4 quadrants. Extremities: 5/5 strength upper and lower extremities bilaterally Skin: Warm and dry, well perfused. No new rashes or lesions noted. LABS: Recent Results (from the past 24 hour(s)) Basic Metabolic Panel Collection Time: 09/23/21 4:59 AM Result Value Potassium, S 3.6 Sodium, S 137 Chloride, S 106 Bicarbonate, S 22 Anion Gap 9 BUN (Blood Urea Nitrogen), S 7 Creatinine, S 0.65 eGFR-Non Black/ 85 eGFR-Black/ >90 Calcium, Total, S 7.9 (L) Glucose, S 83 CBC without Differential Collection Time: 09/23/21 4:59 AM Result Value Hemoglobin 8.3 (L) Hematocrit 25.2 (L) Erythrocytes 2.46 (L) MCV 102.4 (H) RBC Distrib Width 16.5 (H) Platelet Count 233 Leukocytes 6.5 Magnesium Collection Time: 09/23/21 4:59 AM Result Value Magnesium, S 2.0 Intake/Output Summary (Last 24 hours) at 09/23/2021 1025 Last data filed at 09/23/2021 0900 Gross per 24 hour Intake 1470 ml Output -- Net 1470 ml ASSESSMENT / PLAN I have personally reviewed laboratory results, imaging and EMR. .??Bull??is hospitalized on [facility] Medicine 10 ([facility])??for evaluation and management of Hypotension Orthostatic, orthostatic hypotension following celiac plexus block.?Comorbidities include pancreaticadenocarcinoma s/p FOLFIRINOX and chemoradiation with capecitabine (07/16-08/15), cancer related pain, osteoporosis, hypothyroidism.?Presented to outpatient Pain Medicine procedure for celiac plexusblock on 09/20/2021, no intra procedural complications. ??Postprocedure, had hypertension, given a total of 2.5 L IVF with minimal benefit. ??Admitted to Medicine service for further management. #1 Hypotension Orthostatic #2 Malignant Neoplasm Of Pancreas Adenocarcinoma (HCC) #3 Hypokalemia #4 Hypoparathyroidism (HCC) #5 Lightheadedness #6 Abdominal Pain #7 Malignant Neoplasm Of Pancreatic Duct (HCC) Patient is currently hemodynamically stable. Started on Fludrocortisone and salt tablets yesterday. She still has orthostatic hypotension, though notes improvement in symptoms. She has a history of peripheral neuropathy, which in addition to recent celiac plexus block, are the likely causes of current orthostasis. She is a reliable patient and lives with her . Pending symptoms throughout the day, may be able to discharge home with close PCP follow-up for further titration of fludrocortisone. PLAN: -- Continue Fludrocortisone 0.1 mg daily, 1 g salt tabs with meals -- Orthostatic blood pressure -- Appreciate assistance from Pain medicine -- TTE on 09/23 revealed normal LV with EF 57%, grade 1/3 LV diastolic dysfunction, borderline enlarged RV size with normal function, mild aortic valve regurgitation -- Abd binder, lower extremity JIMI wraps -- Continue home levothyroxine, magnesium -- Encourage oral intake -- Continue home Mg, calcitriol, calcium/vitamin D Severe Malnutrition The patient meets the ASPEN Criteria of malnutrition based on: ?? Average estimated Intake: Less than or equal to 50% for 1 or more months ?? Weight Loss: >7.5% in 3 months ?? Body Fat: Moderate Loss ?? Muscle Mass: Severe Loss ?? Fluid Accumulation: Absent This is in the context of Chronic Illness. Malnutrition Present Upon Admission: Yes Agree with Registered Dietitian's assessment and treatment plan: Interventions: Medical food supplement, Increase nutrient intake with small, frequent meals and/or snacks, Provide counseling strategies to apply nutrition knowledge Diet: general diet Tubes/lines: Lines, Drains, and Airways Timeline Central venous catheter Duration Implanted Port Single Lumen 11/24/20 303d 10h Wound Duration Wound 09/20/21 Incision Back Lateral;Left;Lower 2d 14h VTE prophylaxis: SCDs Current Activity/Mobility: BMAT Level 4 (Able to stand and walk; needs staff assist if fall risk factors identified) Fall Injury Prevention: I have discussed My Plan for Safe Activity with the patient. Disposition: Home Stable to discharge criteria (not yet met): Vital signs The above plan of care was discussed with Dr. Hyman, HIM Data Warehousing Architect. Counseling was provided [id number] at bedside. I personally spent over half of a total 35 minutes in counseling and coordination of care. ADDENDUM: 1400 -- Patient continues to have orthostasis. Curbsided Neurology, recommended continued treatment as benefit from Florinef will take longer. No need for further work-up at this time Yung Newell M.D. - 09/22/2021 11:24 AM CDT SUBJECTIVE I met and evaluated the patient with the [facility] inpatient Pain Service today. She is a 81-year-old female. She has pancreatic adenocarcinoma. On 10/20/2021 she had a neurolytic celiac plexus neurolysis. She is admitted with ongoing hypotension. She received fluid rehydration. However she continues to have episodes of orthostatic hypotension this morning her blood pressure went from a baseline of 105-120 systolic over 63-75 diastolic while sitting to becoming symptomatic with blood pressure dropping to 64/45 and a heart rate of 112 with standing. On a positive, she does have excellent pain control. She was able to discontinue her oxycodone that she was taking prior to the procedure. And her abdominal pain has been well controlled. I did ask for some additional questions. 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 It sounds like it was idiopathic. She subsequently developed worsening of that peripheral neuropathy with her chemotherapy. In at least the week preceding her neurolytic celiac plexus neurolysis, she contacted her primary oncology team because she was having episodes of symptomatic orthostatic hypotension. She was brought in for a fluid bolus thinking she may be dehydrated and low-dose lisinopril that she was on for baseline hypertension was discontinued. Medications Report Scheduled Medication Ordered Dose/Rate, Route, Frequency Last Action heparin flush 500 Units 500 Units, cath, Q7 Days Ordered levothyroxine tablet 75 mcg (SYNTHROID, LEVOTHROID) 75 mcg, oral, Daily before breakfast Given, 75 mcg at 09/22 0638 magnesium oxide tablet 400 mg (MAG-OX) 400 mg, oral, Daily before breakfast Given, 400 mg at 09/22 0731 magnesium sulfate in water IVPB 2 g 2 g, IV, Once Ordered potassium chloride ER tablet 40 mEq (KLORCON/K-TAB) 40 mEq, oral, Once Ordered sodium chloride 0.9 % injection 10 mL 10 mL, IV, Q7 Days Given, 10 mL at 09/21 1005 sodium chloride 0.9 % injection 10 mL 10 mL, IV, Q12H FILEMON Given, 10 mL at 09/22 1000 sodium chloride 0.9 % injection 3 mL 3 mL, IV, Q12H FILEMON Ordered PRN Medication Ordered Dose/Rate, Route, Frequency Last Action D5W infusion 10-250 mL/hr, IV, PRN Ordered heparin flush 500 Units 500 Units, cath, During hospitalization Ordered NaCl 0.9% infusion 10-250 mL/hr, IV, PRN Ordered NaCl 0.9% infusion 10-250 mL/hr, IV, PRN Ordered ondansetron tablet 8 mg (ZOFRAN) 8 mg, oral, Q8H PRN Ordered oxyCODONE IR tablet 5 mg (ROXICODONE) 5 mg, oral, Q4H PRN Ordered sodium chloride 0.9 % injection 10 mL 10 mL, IV, PRN Ordered sodium chloride 0.9 % injection 10 mL 10 mL, IV, During hospitalization Ordered sodium chloride 0.9 % injection 10 mL 10 mL, IV, PRN Ordered sodium chloride 0.9 % injection 20 mL 20 mL, IV, PRN Ordered sodium chloride 0.9 % injection 3 mL 3 mL, IV, PRN Ordered OBJECTIVE VITAL SIGNS Height: 167.6 cm, Weight: 49.1 kg, BMI (Calculated): 17.5 kg/m??, Blood Pressure: (!) 64/45, Pulse Rate: (!) 112, Resp Rate: 16, Temperature: 36.4 ??C, SpO2: 99 % Current Weight: 49.1 kg Vitals: 09/20/21 1220 09/20/21 1225 09/20/21 1245 09/20/21 1258 Pain Score: 0 - No pain 4 4 1 09/20/21 1730 09/20/21 1741 09/20/21 1950 09/20/21 2355 Pain Score: 0 - No pain 0 - No pain 0 - No pain 0 - No pain 09/21/21 0616 09/21/21 0722 09/21/21 1800 09/22/21 0800 Pain Score: 0 - No pain 0 - No pain 0 - No pain 0 - No pain Pain Assessment Pain Assessment: 0-10 Numeric Pain Intensity Scale (09/22/21 0800 : Dolly Gonzalez, R.N.) Pain Score: 0 - No pain (09/22/21 0800 : Dolly Gonzalez, R.N.) Pain Type: Chronic pain (09/20/21 1258 : Vilma Ybarra, R.N.) Pain Location: Abdomen (09/20/21 1258 : Vilma Ybarra, R.N.) Pain Orientation: Right, Mid (09/20/21 1258 : Vilma Ybarra, R.N.) Pain Descriptors: Aching (09/20/21 1258 : Vilma Ybarra R.N.) Pain Frequency: Intermittent (worse with food) (09/20/21 1045 : Vilma Ybarra RChicoN.) Patient's Stated Pain Goal: 0 No pain (09/20/21 1950 : Jairo Chacon R.NChico) Pain Interventions: Cold applied (injection site) (09/20/21 1258 : Vilma Ybarra RChicoN.) Resp Rate: 16 (09/22/21 0635 : Jairo Chacon R.N.) PAIN PHYSICAL EXAM: See vitals above. She was lying had approximately a 30 degree angle in bed. She was comfortable without any symptoms of orthostatism. Pupils are mid range and reactive. There is no sedation, dysarthria, respiratory distress. ASSESSMENT / PLAN #1 Malignant Neoplasm Of Pancreas Adenocarcinoma (HCC) #2 Hypokalemia #3 Lightheadedness #4 Hypotension Orthostatic #5 Abdominal Pain #6 pre-existing peripheral neuropathy which worsened following chemotherapy #7 Symptomatic orthostatism in week proceeding celiac plexus neurolysis We had a nice discussion. See additional HPI above. 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 It worsened in the context of chemotherapy (predominately hand symptoms) but then in improved jose chemotherapy discontinued. She has a describe a lot of autonomic symptoms. However she does report that in at least a week prior to coming in for the neurolytic celiac procedure, she was having some episodes of orthostatism. Infection contacted her oncology team was brought in for IV fluid bolusesand her lisinopril which was a low-dose medication for baseline hypertension was discontinued. Certainly the neurolytic celiac plexus block has worsened all of these orthostatic features. But I suspect that this is a double hit of a pre-existing mild autonomic neuropathy now with a superimposed effects of the celiac plexus neurolysis. While a mild hypotension is not uncommon following that block, and a small percentage patients need to be admitted following that block, most of those patients are able to be dismissed within 24 hours of the block is things reequilibrate. At this point, I think it likely that she is going to require some symptomatic management of the orthostatic hypotension. I will defer to the medicine team as to what they feel is most appropriate given her comorbidities and other medications. Our options include [id number] dosed midodrine, Florinef, or [place] distinct mean. The latter has the advantage of not causing supine hypertension, but may not be as effective as the other 2. We will continue to follow with you. Her pain control fortunately is excellent. She is off of opioids. Lisa Hernandez Pharm.D., R.Ph. - 09/22/2021 10:47 AM CDT Pharmacist Progress Note 81 y.o. female with pancreatic adenocarcinoma admitted for hypotension following celiac plexus block. PMH: HTN, cataracts, hypothyroidism, osteopenia Hematology/Oncology history: ?? Pancreatic adenocarcinoma - initially diagnosed 02/2020 ?? 06/14-06/15: FOLFIRINOX (24 cycles) ?? 07/16-08/15: chemoradiation with capecitabine DVT prophylaxis: none ID prophylaxis: none GI prophylaxis: none Home medications: ?? Held: Citracal D3, lisinopril, tramadol, sherman ?? Changed: none Patient own medications: None ASSESSMENT / PLAN # Hypotension ?? Ongoing orthostatic hypotension with SBP 130-140 while laying down, but falls to 60-70 when standing, pt has been noting symptoms for last three weeks that worsened after celiac plexus block ?? Has received adequate crystalloid fluids plus PO intake ?? Home lisinopril held ?? Plan for EKG and TTE today to rule out cardiac causes # Pain ?? Significant pain relief from celiac plexus block ?? Has PRN oxycodone available, has not needed Changes to medications anticipated at discharge TBD pending clinical course Lisa Hernandez PharmJoann., R.Ph. The recommendations contained in this note are based on information available at the time of documentation and may not reflect changes in the care plan discussed after the time of signing. Livan Mobley M.D., J.D. - 09/22/2021 10:31 AM CDT Interval Events: Patient was seen this morning on rounds. She continues to endorse excellent pain control (0/10 pain)s/p her 09/20 celiac plexus block and has not required any of the PRN Oxycodone available to her. Despite a reassuring trend in her blood pressures yesterday, she unfortunately continues to struggle with orthostatic hypotension in the pattern described in Dr. Hernandez's prior note. Overnight, her blood pressures have ranged from 60-150s/40s-80s with MAPs 50-90s. Periods of orthostatic hypotension upon standing up coincide with tachycardia to the 110s, and patient endorses feeling lightheaded and flushed during these episodes. She is otherwise able to sit up in bed without any discomfort. Objective: Afebrile, VSS at baseline with hypotension (lowest recorded BP 64/45 ON) when standing for 20-30 seconds PE: General: In no acute distress, alert and oriented, resting in bed, pleasant and cooperative Pulm: No respiratory distress, normal WOB, saturating well on RA CV: Regular rate MSK: Able to move all extremities equally Neuro: AAOx3, responds to questions appropriately Psych: Appropriate mood A/P: This is a 81-year-old female with metastatic pancreatic adenocarcinoma s/p chemotherapy and radiation who presented to [place] [id number] on 09/20/21 for a scheduled neurolytic celiac plexus block for abdominal pain secondary to her malignancy. While she derived significant pain relief from the block, she continued to struggle with orthostatic hypotension post-procedurally. Despite a 2.5L crystalloid bolusshortly after her procedure, she continued to have significant decreases in her systolic pressure upon standing, in addition to becoming symptomatic (dizzy/lightheaded). Because of this, and given concern for a potential fall if she were to be discharged with these symptoms, she was admitted to the Medicine 10 team for observation on 09/20. Patient continues to exhibit orthostatic hypotension now on POD2. As previously noted, this is not unexpected after a celiac plexus block and can potentially last for up to a week. She appears to be improving overall, however continues to have concerning decreases in her blood pressure warranting further admission and management. We met with patient this morning and there appear to be additional factors that may be contributing to her symptoms. She endorses long- standing b/l LE neuropathy, the onsetof which she states preceded her chemotherapy. She also reports b/l UE neuropathy, which she attributes to chemo and which she says is now improving. She also relates that on Laila-Mon of last week, she was evaluated locally with concern for dehydration, was given IVF, and asked to hold her home Lisinopril which she takes for borderline hypertension. We discussed with patient the possibility of autonomic neuropathy and/or fluid deficit potentially contributing to the hypotension she experienced after the 09/20 nerve block procedure. We also touched base with Ms. العراقي's medicine team today, who continue to encourage PO hydration and have trialed PO salt replacement this AM, plan to pursue additional cardiac hematologic workup later today, and will plan to potentially start an agent to support blood pressure as early as tomorrow morning. The IP Pain team will be available to assist as needed and willcontinue to follow along. Recommendations/Plan: no new recommendations today - Pain remains exceptionally well-controlled s/p celiac plexus block. Has Oxycodone IR 5 mg q4h PRN (home dose is 5-10 mg q4h PRN). Fortunately, has not needed this medication since the block - Continue close blood pressure monitoring, fluid resuscitation/encourage PO intake, and further workup while admitted - Trialing blood pressure support agent (Fludrocortisone vs. Midodrine vs. Other) and any additionalcares per primary team - We greatly appreciate the assistance of the Internal Medicine team in the care of this patient We will continue to follow this patient. Please??do not hesitate to??contact the Pain Service at [phone] ([facility] pager) if you have any questions or concerns??in the meantime. Livan Mobley, CA-1 [id number] Mikal Amaya - 09/22/2021 10:25 AM CDT Encounter: Initial Spiritual Care Support Situation: Mrs. العراقي was admitted for orthostatic hypotension. She greeted the windows infrastructure engineer warmly. She explained that ???what???s keeping me here is that I want to pass out when I stand up.?? This frustrates Mrs. العراقي, who wants ???to get back to the things I do while I still have time.?? Coping: Mrs. العراقي did show some sorrow and worry, and tears came to her eyes quietly during the conversation with the windows infrastructure engineer. She finds support from family and protestant, as well as from her . Family: Mrs. العراقي???s arrived about fifteen to twenty minutes into the conversation with thechaaspen. He brought a friendly presence. Conversation arsen to a close soon after. Tracey Tradition: Mrs. العراقي was raised Denominational, an after having met her , a Yarsanism, spent forty years more with the Lutherans, but now ???is visiting with the Methodists.?? At the close of the visit, Mrs. العراقي said, ???A prayer would be nice.?? The windows infrastructure engineer obliged. Plan: Will remain available for spiritual care as needed or requested. [phone] ([place]). Narciso Leach P.A.-C. - 09/22/2021 9:23 AM CDT [facility] Medicine 10 ([facility]) Progress Notes SUBJECTIVE Azeb العراقي is a 81 y.o. female seen on Med 10 morning rounds. No acute events overnight. Thismorning, she continues to have significant dizziness when going from seated to standing position. These symptoms have first began a few weeks ago but were only intermittent. She denies any chest pain or shortness of breath. After 20-30 seconds of standing, she begins to feel flushed, causing her to sit down. She has not had any recent falls. I have reviewed the current medication list. OBJECTIVE VITAL SIGNS BP (!) 64/45 (BP Location: Right arm;Upper, Patient Position: Standing) Pulse (!) 112 Temp 36.4 ??C (Oral) Resp 16 Ht 167.6 cm Wt 49.7 kg SpO2 99% BMI 17.69 kg/m?? PHYSICAL EXAM General: Patient seen lying in bed, no acute distress Mental: Alert and oriented X3. Responds appropriately to questions. ENT: Oral mucosa pink and moist. No lesions noted. Heart: Regular rhythm and rate, no murmurs. Dorsalis pedis and posterior tibial pulses 2+ bilaterally, no edema noted Lungs: Clear to auscultation billaterally; no wheezes, rhonchi or rales. Respirations even and non-labored on room air. Abdomen: Soft, nontender, nondistended. Active bowel sounds x 4 quadrants. Extremities: 5/5 strength upper and lower extremities bilaterally Skin: Warm and dry, well perfused. No new rashes or lesions noted. LABS: No results found for this or any previous visit (from the past 24 hour(s)). Intake/Output Summary (Last 24 hours) at 09/22/2021 0923 Last data filed at 09/22/2021 0745 Gross per 24 hour Intake 780 ml Output -- Net 780 ml ASSESSMENT / PLAN I have personally reviewed laboratory results, imaging and EMR. Ms. العراقي is hospitalized on [facility] Medicine 10 ([facility]) for evaluation and management of Hypotension Orthostatic, orthostatic hypotension following celiac plexus block. Comorbidities include pancreatic adenocarcinoma s/p FOLFIRINOX and chemoradiation with capecitabine (07/16-08/15), cancer related pain, oste oporosis, hypothyroidism. Presented to outpatient Pain Medicine procedure for celiac plexus block on09/20/2021, no intra procedural complications. Postprocedure, had hypertension, given a total of 2.5L IVF with minimal benefit. Admitted to Medicine 10 service for further management. #1 Hypotension Orthostatic #2 Malignant Neoplasm Of Pancreas Adenocarcinoma (HCC) #3 Hypokalemia #4 Lightheadedness #5 Abdominal Pain Patient continues to have significant orthostatic hypotension. It is consistent, happening each timethat she stands. It has been 36 hours since celiac plexus block, so hope that symptoms resolve within the next day. Though, patient endorses similar feeling over the past 3 weeks, episodes were happening intermittently, received 1L IVF with outpatient Oncology last Monday for presumed dehydration. Shehas not had any falls. While the worsening orthostasis is likely due to celiac plexus block, cannot rule out underlying cardiac abnormality. Additionally, while Hgb is rising here, it is lower than thelast few months (9.3 on 09/17, 11.0 on 09/01). No sign of bleeding. Will repeat labs this morning and obtain ECG and TTE to assess for any abnormality. Discussed with pharmacy yesterday, unlikely that previous chemotherapy regimens would lead to orthostatic hypotension. Will also trial salt tablet this morning. PLAN: -- Obtain ECG, TTE -- Repeat CBC, BMP. Obtain reticulocytes, Vitamin B12, folate -- Abd binder, lower extremity JIMI wraps -- Continue home levothyroxine, magnesium -- Encourage oral intake -- Replace K, Mg. Restart home oral Mg Severe Malnutrition The patient meets the ASPEN Criteria of malnutrition based on: ?? Average estimated Intake: Less than or equal to 50% for 1 or more months ?? Weight Loss: >7.5% in 3 months ?? Body Fat: Moderate Loss ?? Muscle Mass: Severe Loss ?? Fluid Accumulation: Absent This is in the context of Chronic Illness. Malnutrition Present Upon Admission: Yes Agree with Registered Dietitian's assessment and treatment plan: Interventions: Medical food supplement, Increase nutrient intake with small, frequent meals and/or snacks, Provide counseling strategies to apply nutrition knowledge Diet: general diet, high salt diet Tubes/lines: Lines, Drains, and Airways Timeline Central venous catheter Duration Implanted Port Single Lumen 11/24/20 302d 9h Wound Duration Wound 09/20/21 Incision Back Lateral;Left;Lower 1d 13h VTE prophylaxis: encourage ambulation Current Activity/Mobility: BMAT Level 3 (Able to stand but cannot walk; needs staff assist + safety equipment) Fall Injury Prevention: I have discussed My Plan for Safe Activity with the patient. Disposition: Home Stable to discharge criteria (not yet met): Vital signs The above plan of care was discussed with Dr. Berrios, HIM Data Warehousing Architect. Counseling was provided [id number] at bedside. I personally spent over half of a total 35 minutes in counseling and coordination of care. ADDENDUM: 1500 -- Patient continues to be orthostatic. Will start Fludrocortisone Rhonda Knight RDN, LD - 09/21/2021 2:48 PM CDT Clinical Nutrition: Initial Assessment Clinical Nutrition was requested to evaluate patient for positive nursing baseline nutrition screen with a MST score of 2 or greater SUBJECTIVE Ms. العراقي is a 81 y.o. female admitted for hypotension after celiac plexus block. The patient has pancreatic adenocarcinoma and is status post FLORINOX and chemoradiation. Current Nutrition (since admission): The patient reports that her appetite is much better since her pain has resolved. She was able to eat well for breakfast and ate all of her lunch meal. Nutrition history: Mrs العراقي has been trying to drink 2-3 Boost High Calorie supplements daily per her physician's guidance. She feels that liquids went a bit better, with less of a pain trigger after ingesting. 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 Anthropometrics: Height: 167.6 cm Admission Weight: 45.8 kg (09/20/2021) Usual Body Weight: 57 kg (1.5 years ago) [place] Body Weight (Calculated) : 59.1 kg BMI (Calculated): 17.7 kg/m?? Weight Change History: 06/23/21: 51.7 kg; 09/20/21: 45.8 kg- loss of 11 % in 3 months Estimated Needs: Total Calorie Needs: 9424-4719 (+ 500 calories per day for weight gain) calories/day Method to Estimate Energy Needs: [place] (Basal + 20%) Weight Used for Equation Calculations: 45.8 kg Total Protein Needs: 55 - 69 grams/day (Method to Estimate Protein Needs (g/kg): 1.2 - 1.5 gm/kg) Weight Used to Calculate Protein Needs (Kg): 45.8 kg Nutrition Diagnosis: Malnutrition (undernutrition) related to cancer-related pain and cancer treatments as evidenced by patient reported pain worse after eating, constipation, taste changes Malnutrition Criteria: Average estimated Intake: Less than or equal to 50% for 1 or more months Weight Loss: >7.5% in 3 months Body Fat: Moderate Loss Muscle Mass: Severe Loss Fluid Accumulation: Absent Nutritional Status: Severe Malnutrition Malnutrition in the Context of: Chronic Illness ASSESSMENT / PLAN Patient meets ASPEN/AND criteria for Severe Malnutrition (09/21/2021 2:44 PM) See Nutrition Focused Physical Findings section for details. Nutrition Intervention: Interventions: Medical food supplement, Increase nutrient intake with small, frequent meals and/or snacks, Provide counseling strategies to apply nutrition knowledge. Recommendations: ??? Recommend an outpatient appointment with an Oncology dietitian as follow up Monitoring/Evaluation: Nutrition parameter to monitor: Meals/Supplement Intake, Weight Status, Pertinent Labs Desired Outcome: To preserve current nutrition status and work on weight re-gain prior to the initiation of her next chemotherapy. Patient Goal(s): 1. 3 nutritional supplements per day 2. Eat smaller amounts more often 3. Choose foods with a high caloric density. For questions about patient's nutritional care please contact pager [phone] on weekdays or [phone] on weekends/holidays. Narciso Leach P.A.-C. - 09/21/2021 10:42 AM CDT [facility] Medicine 10 ([facility]) Progress Notes SUBJECTIVE Azeb العراقي is a 81 y.o. female seen on [facility] 10 morning rounds. Patient admitted yesterday evening due to hypotension after celiac plexus block. She was given a total of 2.5 IVF without relief. This morning, patient is seen lying in bed. She is doing well, no abd pain and no lightheadedness with lying down or sitting up. Endorses hunger. Attempted to obtain orthostatic vital signs. 30 seconds after standing, patient endorsed feeling like she was going to fall, felt dizzy. No chest pain or shortness of breath. Denies melena, hematochezia, abnormal bruising, hematuria. For the past 3 weeks, has endorsed intermittent episodes of similar feelings, noting lightheadedness when she is working in her garden. These episodes resolved quickly and are not consistent. I have reviewed the current medication list. OBJECTIVE VITAL SIGNS BP 138/71 (BP Location: Right arm;Upper, Patient Position: Lying) Pulse 89 Temp 36.7 ??C (Oral) Resp 14 Ht 167.6 cm Wt 49.7 kg SpO2 94% BMI 17.68 kg/m?? PHYSICAL EXAM General: Patient seen lying in bed, no acute distress Mental: Alert and oriented X3. Responds appropriately to questions. ENT: Oral mucosa pink and moist. No lesions noted. Heart: Regular rhythm and rate, no murmurs. Dorsalis pedis and posterior tibial pulses 2+ bilaterally, no edema noted Lungs: Clear to auscultation billaterally; no wheezes, rhonchi or rales. Respirations even and non-labored on room air. Abdomen: Nontender, nondistended. Firm. Active bowel sounds x 4 quadrants. Extremities: 5/5 strength upper and lower extremities bilaterally Skin: Small back bandage without surrounding erythema or discharge. Warm and dry, well perfused. No new rashes or lesions noted. LABS: Recent Results (from the past 24 hour(s)) CBC with Differential, Blood Collection Time: 09/21/21 12:34 AM Result Value Hemoglobin 7.9 (L) Hematocrit 23.8 (L) Erythrocytes 2.36 (L) MCV 100.8 (H) RBC Distrib Width 16.3 (H) Platelet Count 191 Leukocytes 5.6 Neutrophils 4.55 Lymphocytes 0.30 (L) Monocytes 0.70 Eosinophils 0.05 Basophils <0.03 Creatinine with Estimated GFR Collection Time: 09/21/21 12:34 AM Result Value Creatinine, S 0.64 eGFR-Non Black/ 85 eGFR-Black/ >90 CBC without Differential Collection Time: 09/21/21 7:43 AM Result Value Hemoglobin 8.4 (L) Hematocrit 25.2 (L) Erythrocytes 2.47 (L) MCV 102.0 (H) RBC Distrib Width 16.3 (H) Platelet Count 194 Leukocytes 4.5 Basic Metabolic Panel Collection Time: 09/21/21 7:43 AM Result Value Potassium, S 3.4 (L) Sodium, S 138 Chloride, S 103 Bicarbonate, S 26 Anion Gap 9 BUN (Blood Urea Nitrogen), S 8 Creatinine, S 0.65 eGFR-Non Black/ 85 eGFR-Black/ >90 Calcium, Total, S 8.1 (L) Glucose, S 92 Intake/Output Summary (Last 24 hours) at 09/21/2021 1100 Last data filed at 09/21/2021 0620 Gross per 24 hour Intake 2830 ml Output 1275 ml Net 1555 ml ASSESSMENT / PLAN I have personally reviewed laboratory results, imaging and EMR. Ms. العراقي is hospitalized on [facility] 10 ([facility]) for evaluation and management of Hypotension Orthostatic, orthostatic hypotension following celiac plexus block. Comorbidities include pancreatic adenocarcinoma s/p FOLFIRINOX and chemoradiation with capecitabine (07/16-08/15), cancer related pain, oste oporosis, hypothyroidism. Presented to outpatient Pain Medicine procedure for celiac plexus block on09/20/2021, no intra procedural complications. Postprocedure, had hypertension, given a total of 2.5L IVF with minimal benefit. Admitted to Medicine 10 service for further management. #1 Hypotension Orthostatic #2 Malignant Neoplasm Of Pancreas Adenocarcinoma (HCC) #3 Hypokalemia #4 Lightheadedness This morning, patient is currently hemodynamically stable, pain is significantly improved. Continuesto have orthostatic hypotension when standing, though is improved compared to yesterday. She endorses similar feelings at home the past 3 weeks while working in her garden, though symptoms resolve quickly and do not occur daily. Note, hemoglobin on admission 7.9 (10.5 on 01/20/2021), unsure recent levels. Repeat hemoglobin this morning was 8.4, no concern for intra- abdominal bleed. Denies any sign ofGI loss. Will likely defer to PCP and Oncology for further workup was needed. Discussed with Pain Medicine, blood pressure variability is common for 24-48 hours. Will continue to monitor patient until symptoms resolve. PLAN: - Obtain frequent distended blood pressures - Appreciate assistance from Pain Medicine - Obtain outside records to see recent hemoglobin levels - Appreciate assistance with Pharmacy, unclear if chemotherapy is also contributing to orthostasis - Replace potassium - Continue home levothyroxine, magnesium - Encourage oral intake Severe Malnutrition The patient meets the ASPEN Criteria of malnutrition based on: ?? Average estimated Intake: Less than or equal to 50% for 1 or more months ?? Weight Loss: >7.5% in 3 months ?? Body Fat: Moderate Loss ?? Muscle Mass: Severe Loss ?? Fluid Accumulation: Absent This is in the context of Chronic Illness. Malnutrition Present Upon Admission: Yes Agree with Registered Dietitian's assessment and treatment plan: Interventions: Medical food supplement, Increase nutrient intake with small, frequent meals and/or snacks, Provide counseling strategies to apply nutrition knowledge Diet: general diet Tubes/lines: Lines, Drains, and Airways Timeline Central venous catheter Duration Implanted Port Single Lumen 11/24/20 301d 11h Wound Duration Wound 09/20/21 Incision Back Lateral;Left;Lower 15h VTE prophylaxis: Contraindicated given recent procedure Current Activity/Mobility: BMAT Level 4 (Able to stand and walk; needs staff assist if fall risk factors identified) Fall Injury Prevention: I have discussed My Plan for Safe Activity with the patient. Disposition: Home Stable to discharge criteria (not yet met): Vital signs The above plan of care was discussed with Dr. Berrios, HIM Data Warehousing Architect. Counseling was provided [id number] at bedside. I personally spent over half of a total 30 minutes in counseling and coordination of care. ADDENDUM: 1500 -- Afternoon orthostatic BP still positive, though patient has symptomatic improvement. Will keep her here overnight and likely discharge tomorrow. Roseanna Owen, Pharm.D., R.Ph. - 09/21/2021 7:40 AM CDT Pharmacist Progress Note 81 y.o. female with pancreatic adenocarcinoma admitted for hypotension following celiac plexus block. PMH: HTN, cataracts, hypothyroidism, osteopenia Hematology/Oncology history: ?? Pancreatic adenocarcinoma - initially diagnosed 02/2020 ?? 06/14-06/15: FOLFIRINOX (24 cycles) ?? 07/16-08/15: chemoradiation with capecitabine DVT prophylaxis: none ID prophylaxis: none GI prophylaxis: none Home medications: ?? Held: Citracal D3, lisinopril, tramadol, sherman ?? Changed: none Patient own medications: None ASSESSMENT / PLAN # Hypotension ?? Ongoing orthostatic hypotension with SBP 130-140 while laying down, but falls to 60-70 when standing ?? Has received ~ 2L crystalloid fluids plus PO intake ?? Home lisinopril held # Pain ?? Significant pain relief from celiac plexus block ?? Has PRN oxycodone available, has not needed Changes to medications anticipated at discharge TBD pending clinical course Roseanna Owen, Pharm.D., R.Ph. The recommendations contained in this note are based on information available at the time of documentation and may not reflect changes in the care plan discussed after the time of signing. Lane Hernandez M.D. - 09/21/2021 7:21 AM CDT S: Patient seen this morning. From a pain standpoint she is doing remarkably well compared to her baseline. Mainly, she is tolerating PO without post- prandial pain. Unfortunately, she continues to struggle with orthostatic hypotension any time she stands. The amount of time she is able to stand has inc reased slightly from about 20 seconds to 60 seconds, but after that time she becomes light-headed, dizzy, and her systolic BP decreases from 130s-140s down to the 60s-70s. She is appropriately frustrated by this. O: VS currently WNL, lowest recorded BP 61/42; afebrile PE: Gen: NAD, alert and cooperative, lying in bed Pulm: no resp distress, room air CV: regular rate MSK: able to move all extremities equally Neuro: AAOx3 Psych: appropriate mood A/P: 81-year-old female with metastatic pancreatic adenocarcinoma status post chemotherapy and radiation who presented to [place] [id number] on 09/20/2021 for scheduled neurolytic celiac plexus block for abdominal pain. While she has gotten significant pain relief from the celiac plexus block, she has continuedto struggle with orthostatic hypotension postprocedurally. Despite 2500 cc crystalloid after her procedure, she continued to have significant decreases in her systolic pressure upon standing in addition to becoming symptomatic (dizziness/lightheadedness). Because of this, and because of concern for pot ential fall if she were to be discharged with these symptoms, the decision was made to admit her forobservation. Orthostatic hypotension after celiac plexus block is not unexpected and can potentiallylast for up to a week. Fortunately, she does seem to be making some improvement but it is slow. -currently pain is under control status post celiac plexus block. She has had oxycodone IR 5 mg q.4 hours p.r.n. restarted. (home dose is 5-10 mg q.4 hours p.r.n.). Fortunately, she has not needed thismedication -continue close blood pressure monitoring and fluid resuscitation -will speak with medicine team this morning about options including continued observation versus medication therapies such as midodrine -further care per primary team -we greatly appreciate the assistance of the internal medicine team in the care of this patient Pain medicine service will continue to follow Adriana Berrios M.D., M.B.A. - 09/21/2021 5:30 AM CDT I saw and evaluated Azeb العراقي on rounds today with our medicine team. I participated and providedthe substantive portion of this shared/split visit with Narciso Leach PA-C. I agree with the Advanced-Practice Provider's findings and plan of care, as documented. My assessment and plan are as follows: #1 Hypotension Orthostatic #2 Malignant Neoplasm Of Pancreas Adenocarcinoma (HCC) #3 Hypokalemia #4 Lightheadedness #5 Abdominal Pain Ms. Azeb العراقي is a 81 year old woman with pancreatic adenocarcinoma status post chemotherapy withFOLFIRINOX and chemoradiation (completed 07/2021) complicated by abdominal secondary to cancer. She is s/p celiac plexus block 05/23 complicated by orthostativ hypotension. PLAN: ?? Incourage PO in take. ?? Orthostatic Bps ?? Consider abdominal binder ?? Will continue to monitor and reach out to our Pain Medicine collogues if symptoms so not resolve after 48 hours. ?? May consider CT abdomen pelvis if patient clinically deteriorates. ?? Replace lytes PRN ?? Place for DC to home Please refer to Narciso Leach PA-C's note dated today for additional details about our team's plan ofcare. Counseling was provided [id number] at bedside regarding the plan of care as stated above. I personally spent over half of a total 20 minutes in counseling and coordination of care as documented above. documented in this encounter H&P Notes Thelma Quach M.B.B.S. - 09/20/2021 8:52 PM CDT This note has been moved, deleted, or redacted in response to a chart correction request. documented in this encounter Procedure Notes Dillon Ovalle M.D. - 09/20/2021 11:30 AM CDTAssociated Order(s): FL Celiac Plexus/Splanchnic Block Injection Pre-Procedure Diagnose(s): Malignant Neoplasm Of Pancreas Adenocarcinoma (HCC) Post-Procedure Diagnose(s): Malignant Neoplasm Of Pancreas Adenocarcinoma (HCC); Pain Cancer Associated FL Celiac Plexus/Splanchnic Block Injection Date/Time: 09/20/2021 11:09 AM Performed by: Dillon Ovalle M.D. Authorized by: Kota Sanches D.O., M.P.H. Care team members present 1. Allison Bowens L.P.N. 2. Lane Hernandez M.D. PROCEDURE SUMMARY Indications: Cancer pain Pre-procedural pain: 10/03 Post-procedural pain: 04/05 Site: advanced procedures Procedures: splanchnic/celiac plexus block Splanchnic/celiac plexus block: neurolytic Needle or RF cannula: Spinal Needle size: 22 G Needle length: 5 in Patient position: prone IMAGING Fluoroscopic image guidance used to localize target, identify at risk structures, and dynamically used to direct therapy to the target. Image(s) acquired and saved. SEDATION MEDICATIONS Midazolam (mg): 1 Fentanyl (mcg): 50 INJECTED MEDICATIONS The injected medication(s) listed was divided equally between the identified injection location(s) Total volume of injectate (mL): 36 Total steroid in injectate (mg): 0 10 mL bupivacaine-EPINEPHrine (PF) 0.5 %-1:200,000 10 mL lidocaine 20 mg/mL 1 mL iohexoL 300 mg iodine/mL 15 mL ethyl alcohoL (ethanoL) 99 % (16 mL) PROCEDURE DETAILS Splanchnic/celiac plexus block: Prior to the procedure, intravenous access was obtained and the Intravaneous fluids were given prior to the start of the procedure and continued to run throughout the procedure. Using fluoroscopy, the bilateral anterolateral aspects of the L1 vertebral body were visualized using a posterior oblique approach. Skin entry points were identified over these targets, stayingadjacent to the lateral aspect of the vertebral body and inferior to the 12th ribs. Using fluoroscopic guidance, spinal needles were inserted and advanced incrementally until the final needle position was just anterior to the L1 vertebral body which was verified with lateral and AP fluoroscopic views.After negative aspiration, contrast was injected and confirmed appropriate linear spread along the anterior vertebral bodies, without evidence of intravascular, intrathecal, intracrural, intramuscular,or intradiscal uptake. Following this the solution was injected on each side. A directed sensorimotor examination of the lower extremities was performed after waiting an appropriate amount of time and did not show development of any new neurologic deficits. At this point the neurolytic agent was injected slowly and incrementally, with serial negative aspirations, through each needle. The needles werethen flushed with local anesthetic as they were withdrawn from the skin. The patient tolerated the procedure well and there were no apparent complications. After appropriate observation, the patient was dismissed in good condition under their own power. ADDITIONAL PROCEDURE COMMENTS Pre-procedural fluid bolus (500 mL) was not completed prior to the procedure. She tolerated the procedure extremely well. Post-procedurally her blood pressure was low and she was mildly symptomatic when she sat up at the bedside. She was assess by the pain fellow (Dr. Hernandez) and more fluid was given as well as some phenylephrine. CONSENT Consent obtained: written UNIVERSAL PROTOCOL All relevant documentation and testing were reviewed and available. All required blood products, implants, devices and or special equipment were made available as applicable. Pre-procedure verificationwas conducted and the correct site was marked if required. A fire risk assessment was done as applicable. The procedural time-out to verify correct patient, correct side/site, and procedure was conducted prior to performing the procedure and confirmed in a procedural pause. PRE-PROCEDURE DETAILS Procedure purpose: therapeutic Appropriate hand hygiene, gown, cap, mask, protective eyewear, sterile gloves, skin preparation, sterile drape, and strict aseptic technique were utilized as applicable for the procedure: yes Site preparation: chlorhexidine SEDATION / ANESTHESIA Anesthesia method: local infiltration and moderate sedation Local infiltrate type: lidocaine I completed the presedation assessment form and supervised the sedation. Planned sedation level achieved: yes Present during sedation (intra-service time). A trained independent observer (e.g. RN) assisted withmonitoring the patient's level of consciousness and physiological status throughout the procedure (see nursing documentation). ATTESTATION STATEMENT A resident or fellow participated in the procedure, and the tax consultant was present for the entire procedure. OPERATIVE NOTE INFORMATION Specimens: 0 Drains: 0 Estimated blood loss: 0 Implants: 0 documented in this encounter Nursing Notes Adi Sanchez R.N. - 09/24/2021 2:36 PM CDT Shift Goals: Clinical Goals for the Shift: remain free from falls Identify possible barriers to meeting goals/advancing plan of care: none End of Shift Summary: patient met criteria for discharge. Patient and spouse given and explained after visit/discharge summaries. Medications reviewed. Follow up appointment reviewed. All questions answered. All belongings sent with patient. Patient discharging home self care with spouse. Sharmila Aguiar R.N. - 09/23/2021 9:59 PM CDT Shift Goals: Clinical Goals for the Shift: remain free from falls Identify possible barriers to meeting goals/advancing plan of care: none End of Shift Summary: The patient remained free from falls throughout the shift. Bed alarm and frequent safety checks were utilized to help ensure patient safety. Jairo Chacon R.N. - 09/21/2021 5:43 AM CDT Patient arrived to unit around 1930. Patient unable to tolerate full set of orthostatic vital signs upon arrival. Patient vitally within normal limits while lying down. Patient on NS at 25 mls/hr overnight. Patient pivoting x1 to the commode, although has refused use of gait belt intermittently. This morning patient's BP while lying down 144/76 w/ pulse of 77, while standing patient's BP was 76/39 w/pulse of 114. Patient call light appropriative. documented in this encounter Miscellaneous Notes Documentation Clarification - Lolly Redd P.A.-C. - 09/24/2021 3:03 PM CDT PROVIDER RESPONSE TEXT: To clarify, the appropriate diagnosis supported by the clinical indicators: Anemia in Neoplastic Disease <LCI> QUERY TEXT: DOCUMENTATION CLARIFICATION REQUEST Please clarify/specify the appropriate diagnosis supported in the clinical indicators below. [[Anemia in Neoplastic Disease]] Other (explain) Clinically unable to determine (explain) Clinical Indicators/Risk Factors/Treatment: H&P by Thelma Quach M.B.BChicoS. at 09/20/2021 - ''a 81 y.o. female with a past medical history ...locally advanced, node positive pancreatic adenocarcinoma status post chemotherapy with FOLFIRINOX and chemoradiation, which was completed in July of 2021, has been havingintense abdominal pain stemming from pancreatic adenocarcinoma. As such, she had a celiac plexus block today and experienced postprocedure lightheadedness and hypotension'' Hemoglobin 7.9 (L) 8.4 (L) 8.8 (L) 8.3 (L) 8.1 (L) Hematocrit 23.8 (L) 25.2 (L) 26.8 (L) 25.2 (L) 24.7 (L) Please contact me if you have questions. Thank you, Fabiana Randolph R.N., BSN, [facility] Clinical Documentation Nuclear Control Operator Query created by: Fabiana Randolph R.N., BSN, [facility] 10/01/2021 07:50 AM CDT </LCI> Documentation Clarification - Narciso Leach P.A.-C. - 09/23/2021 9:13 AM CDT PROVIDER RESPONSE TEXT: To clarify, the appropriate diagnosis supported by the clinical indicators: Hypomagnesemia <LCI> QUERY TEXT: DOCUMENTATION CLARIFICATION REQUEST Please clarify/specify the appropriate diagnosis supported in the clinical indicators below. [[Hypomagnesemia]] Other (explain) Clinically unable to determine (explain) Clinical Indicators/Risk Factors/Treatment: Progress Notes by Adriana Berrios M.D., M.B.A. at 09/21/2021- ''81 year old woman with pancreatic adenocarcinoma status post chemotherapy with FOLFIRINOX and chemoradiation (completed 07/2021) complicated by abdominal secondary to cancer. She is s/p celiac plexus block 08/20 complicated by orthostatic hypotension.'' Labs- Magnesium 09/22/2021 @ 0847-1.6 09/23/2021 @ 0459-2.0 Treatment- magnesium sulfate in water IVPB 2 g-given on 09/22/2021 @ 1131;magnesium oxide tablet 1,600 mg (MAG-OX)- given on 09/23/2021 @ 0623; magnesium oxide tablet 400 mg (MAG-OX)-given on 09/21/2021 @ 0730 and 09/22/2021 @0731 Please contact me if you have questions. Thank you, Fabiana Randolph R.N., CASPER, CCDS Clinical Documentation Nuclear Control Operator Query created by: Fabiana Randolph R.N., BSN, CCDS 09/23/2021 07:44 AM CDT </LCI> Hospital Course - Lolly Redd P.A.-C. - 09/21/2021 2:07 PM CDT Azeb العراقي is a 81 y.o. female with a past medical history of hypothyroidism on levothyroxine supplementation, locally advanced, node positive pancreatic adenocarcinoma status post chemotherapy with FOLFIRINOX and chemoradiation, which was completed in July of 2021, who had been having intense abdominal pain stemming from pancreatic adenocarcinoma. As such, she had a celiac plexus block on 09/20 and experienced postprocedure lightheadedness and hypotension- systolic blood pressures in 60 mm Hg. She received a couple of boluses of normal saline and was admitted for overnight observation status. On arrival to the floor, she was hemodynamically stable and her systolic blood pressures were around 130 m mHg. She denied any headache, nausea, vomiting, shortness of breath, lightheadedness or dizziness. Says felt that her pain was very well controlled after the celiac plexus block. Her hemoglobin was noted to be 7.9 at the time of admission from a basline of around 10.5 in December 2020. The following morning, this had improved to 8.4 g/dl without intervention. Hgb was 8.1 on the day of dismissal. Potassium was 3.3 for which she was given supplementation. She was noted to have significant orthostatic hypotension and was given a fluid bolus for this whichdid not provide relief. After 36 hours of continued symptoms, patient was started on salt tablets and Fludrocortisone with improvement of her symptoms. Plans will be to follow up with primary care provi anastacia for ongoing titration of these medications. At the time of dismissal both her and her felt safe for dismissal to home. Appointment was made with her PCP and new medications were sent to her pharmacy (PPI, florinef, and salt tablets). documented in this encounter Plan of Treatment Upcoming Encounters Date Type Specialty Care Team Description 11/19/2021 Clinical Communication Admitting/Central Scheduling 11/23/2021 Comprehensive Visit Neurology Kenji Zaldivar M.D. [address] [place] [address] documented as of this encounter Procedures Procedure Name Priority Date/Time Associated Diagnosis Comme nts IRON AND TOT Routine 09/24/2021 4:32 AM Results f or this IRON-BINDING CDT procedure are i n CAPACITY, S/P the results section. CBC WITHOUT Routine 09/24/2021 4:32 AM Results f or this DIFFERENTIAL, B CDT procedure ar e in the results section. BASIC METABOLIC Routine 09/24/2021 4:32 AM Result s for this PANEL, S/P CDT procedure are i n the results section. CBC WITHOUT Routine 09/23/2021 4:59 AM Results f or this DIFFERENTIAL, B CDT procedure ar e in the results section. MAGNESIUM, S Routine 09/23/2021 4:59 AM Results f or this CDT procedure are i n the results section. BASIC METABOLIC Routine 09/23/2021 4:59 AM Result s for this PANEL, S/P CDT procedure are i n the results section. (TTE) 2D ECHO Routine 09/22/2021 2:33 PM Results for this DOPPLER COLOR CDT procedure are in the results section. ECG Routine 09/22/2021 9:37 AM Results f or this CDT procedure are i n the results section. CBC WITHOUT Timed 09/22/2021 8:47 AM Results f or this DIFFERENTIAL, B CDT procedure ar e in the results section. MAGNESIUM, S Timed 09/22/2021 8:47 AM Results f or this CDT procedure are i n the results section. BASIC METABOLIC Timed 09/22/2021 8:47 AM Result s for this PANEL, S/P CDT procedure are i n the results section. RETICULOCYTES, B Routine 09/22/2021 8:43 AM Resul ts for this CDT procedure are i n the results section. CBC WITHOUT STAT 09/21/2021 7:43 AM Results f or this DIFFERENTIAL, B CDT procedure ar e in the results section. BASIC METABOLIC STAT 09/21/2021 7:43 AM Result s for this PANEL, S/P CDT procedure are i n the results section. CBC WITH Routine 09/21/2021 12:34 Results for this DIFFERENTIAL, B AM CDT procedure ar e in the results section. CREATININE WITH Routine 09/21/2021 12:34 Results for this EGFR, S/P AM CDT procedure are i n the results section. FOLATE, S Routine 09/21/2021 12:31 Results for this AM CDT procedure are i n the results section. VITAMIN B12 ASSAY, Routine 09/21/2021 12:31 Resul ts for this S AM CDT procedure are i n the results section. VRE PCR Routine 09/20/2021 8:01 PM Results f or this CDT procedure are i n the results section. FL CELIAC Routine 09/20/2021 12:07 Malignant Neoplasm Of Re sults for this PLEXUS/SPLANCHNIC PM CDT Pancreas procedure are in BLOCK INJECTION Adenocarcinoma ( HCC) the results Pain Cancer Associated secti on. documented in this encounter Results (ABNORMAL) Iron and Total Iron-Binding Capacity (09/24/2021 [...] City/State/ZIP Code Phon e Number [facility] - [address] [place], [place] [address] [facility] [place] [address] [facility] [address] [facility] (ABNORMAL) Basic Metabolic Panel (09/24/2021 4:32 AM CDT) P athologist Signature Potassium, S 3.3 (L) [...] 09/24/2021 DTL Black/ mL/min/BSA 5:34 AM CDT Trinidadian Comment: ----ADDITIONAL INFORMATION---- Estimated GFR calculated using [...] P.A.-C. LAB BLOOD ADD-ON Performing Organization Address City/[facility] Code Phon e Number [facility] - [address] [place], [place] [address] [facility] [place] [address] [facility] [address] [facility] (ABNORMAL) CBC without Differential (09/24/2021 4:32 AM CDT) [employer] Method Time Signature Hemoglobin 8.1 (L) 11.6 [...] Laterality Blood (Blood, 09/24/2021 4:32 AM 09/25/19 4:57 Venous) CDT AM CDT Narciso Leach P.A.-C. LAB BLOOD ADD-ON Performing Organization Address City/[facility]/ZIP Code Phon e Number [facility] - [address] [place], [place] [address] [facility] [place] [address] Laboratories-[address] (ABNORMAL) CBC without Differential (09/23/2021 4:59 AM CDT) Patholo gist Method Time Signature Hemoglobin 8.3 (L) 11.6 - 09/23/2021 DTL 15.0 g/dL 5:33 AM CDT Hematocrit 25.2 (L) 35.5 - 09/23/2021 DTL 44.9 % 5:33 AM CDT Erythrocytes 2.46 (L) 3.92 - 09/23/2021 DTL 5.13 5:33 AM CDT x10(12)/L MCV 102.4 (H) 78.2 - 09/23/2021 DTL 97.9 fL 5:33 AM CDT RBC Distrib Width 16.5 (H) 12.2 - 09/23/2021 DTL 16.1 % 5:33 AM CDT Platelet Count 233 157 - 371 09/23/2021 DTL x10(9)/L 5:33 AM CDT Leukocytes 6.5 3.4 - 9.6 09/23/2021 DTL x10(9)/L 5:33 AM CDT Specimen Anatomical Collection Method Collection Time Receive d Time (Source) Location / / Volume Laterality Blood (Blood, 09/23/2021 4:59 AM 09/24/19 5:20 Venous) CDT AM CDT Narciso Leach P.A.-C. LAB BLOOD ADD-ON Performing Organization Address City/State/ZIP Code Phon e Number [facility] - [address] [place] [address] [facility] [place] [address] [facility] [address] [facility] (ABNORMAL) Basic Metabolic Panel (09/23/2021 4:59 AM CDT) P athologist Signature Potassium, S 3.6 3.6 - 5.2 09/23/2021 DTL mmol/L 5:48 AM CDT Sodium, S 137 135 - 145 09/23/2021 DTL mmol/L 5:48 AM CDT Chloride, S 106 98 - 107 09/23/2021 DTL mmol/L 5:48 AM CDT Bicarbonate, S 22 22 - 29 09/23/2021 DTL mmol/L 5:48 AM CDT Anion Gap 9 7 - 15 09/23/2021 DTL 5:48 AM CDT BUN (Blood Urea 7 6 - 21 09/23/2021 DTL Nitrogen), S mg/dL 5:48 AM CDT Creatinine, S 0.65 0.59 - 1.04 09/23/2021 DTL mg/dL 5:48 AM CDT eGFR-Non 85 >=60 09/23/2021 DTL Black/ mL/min/BSA 5:48 AM CDT Trinidadian Comment: ----ADDITIONAL INFORMATION---- Estimated GFR calculated using the 2009 CKD_EPI creatinine equation. eGFR-Black/ >90 >=60 mL/min/BSA 2021 5:48 AM CDT DTL Comment: ----ADDITIONAL INFORMATION---- Estimated GFR calculated using the 2009 CKD_EPI creatinine equation. Calcium, Total, S 7.9 (L) 8.8 - 10.2 mg/dL 09/23/2021 5:48 AM CDT DTL Glucose, S 83 70 - 140 mg/dL 09/23/2021 5:48 AM CDT D TL Specimen Anatomical Collection Method Collection Time Receive d Time (Source) Location / / Volume Laterality Blood (Blood, 09/23/2021 4:59 AM 09/24/19 5:32 Venous) CDT AM CDT Narciso Leach P.A.-C. LAB BLOOD ADD-ON Performing Organization Address City/State/ZIP Code Phon e Number [facility] - [address] [place], [place] [address] [facility] [place] [address] [facility] [address] Magnesium (09/23/2021 4:59 AM CDT) P athologist Signature Magnesium, S 2.0 1.7 - 2.3 09/23/2021 DTL mg/dL 5:48 AM CDT Specimen Anatomical Collection Method Collection Time Receive d Time (Source) Location / / Volume Laterality Blood (Blood, 09/23/2021 4:59 AM 09/24/19 5:32 Venous) CDT AM CDT Narciso Leach P.A.-C. LAB BLOOD ADD-ON Performing Organization Address City/State/ZIP Code Phon e Number [facility] - [address] [place], [place] [address] [facility] [place] [address] [facility] [address] [facility] (TTE) 2D ECHO DOPPLER COLOR (09/22/2021 2:33 PM CDT) [facility] gist Method Time Signature Ejection Fraction 57 [...] 2:45 PM CDT There are no previous [facility] echocardiograms available for comparison. Anemia, thyrotoxicosis, [...] For the complete report, see the [facility] Documents. Narrative 09/22/2021 2:45 PM CDT For [...] pericardial effusion. Findings There are no previous [facility] echoca rdiograms available for comparison. Anemia, [...] Signature Ventricular Rate 90 BPM MUSE ECG/Min FL Interval 140 ms MUSE QRSD Interval 88 ms MUSE QT Interval 336 ms MUSE QTC Interval 411 ms MUSE P Harleigh 53 degrees MUSE R Harleigh 6 degrees MUSE T Wave Harleigh 79 degrees MUSE Specimen Anatomical Collection Method Collection Time Receive d Time (Source) Location / / Volume Laterality 09/22/2021 9:37 AM 9:49 CDT AM CDT Impressions MUSE - [...] Code Phon e Number MUSE MUSE NA (ABNORMAL) Magnesium (09/22/2021 8:47 AM CDT) athologist Signature Magnesium, S 1.6 (L) 1.7 - 2.3 09/22/2021 DTL mg/dL 9:42 AM CDT Specimen Anatomical Collection Method Collection Time Receive d Time (Source) Location / / Volume Laterality Blood (Blood, 09/22/2021 8:47 AM 09/23/19 9:20 Venous) CDT AM CDT Narciso Leach P.A.-C. LAB BLOOD ADD-ON Performing Organization Address City/State/ZIP Code Phon e Number [facility] - [address] [place], [place] [address] [facility] [place] [address] [facility] [address] (ABNORMAL) Basic Metabolic Panel (09/22/2021 8:47 AM CDT) athologist Signature Potassium, S 3.5 (L) 3.6 - 5.2 09/22/2021 DTL mmol/L 9:42 AM CDT Sodium, S 137 135 - 145 09/22/2021 DTL mmol/L 9:42 AM CDT Chloride, S 104 98 - 107 09/22/2021 DTL mmol/L 9:42 AM CDT Bicarbonate, S 21 (L) 22 - 29 09/22/2021 DTL mmol/L 9:42 AM CDT Anion Gap 12 7 - 15 09/22/2021 DTL 9:42 AM CDT BUN (Blood 8 6 - 21 09/22/2021 DTL Urea mg/dL 9:42 AM CDT Nitrogen), S Creatinine, S 0.67 0.59 - 09/22/2021 DTL 1.04 mg/dL 9:42 AM CDT eGFR-Non 84 >=60 09/22/2021 DTL Black/ mL/min/BSA 9:42 AM CDT Trinidadian Comment: ----ADDITIONAL INFORMATION---- Estimated GFR calculated using the 2009 CKD_EPI creatinine equation. eGFR-Black/ >90 >=60 mL/min/BSA 2021 9:42 AM CDT DTL Comment: ----ADDITIONAL INFORMATION---- Estimated GFR calculated using the 2009 CKD_EPI creatinine equation. Calcium, Total, S 8.0 (L) 8.8 - 10.2 mg/dL 09/22/2021 9:42 AM CDT DTL Glucose, S 189 (H) 70 - 140 mg/dL 09/22/2021 9:42 AM CDT D TL Specimen Anatomical Collection Method Collection Time Receive d Time (Source) Location / / Volume Laterality Blood (Blood, 09/22/2021 8:47 AM 09/23/19 9:20 Venous) CDT AM CDT Narciso Leach P.A.-C. LAB BLOOD ADD-ON Performing Organization Address City/State/ZIP Code Phon e Number [facility] - [address] [place] [phone] [facility] [place] [address] [facility] [address] [facility] (ABNORMAL) CBC without Differential (09/22/2021 8:47 AM CDT) [facility] gist Method Time Signature Hemoglobin 8.8 (L) 11.6 - 09/22/2021 DTL 15.0 g/dL 9:24 AM CDT Hematocrit 26.8 (L) 35.5 - 09/22/2021 DTL 44.9 % 9:24 AM CDT Erythrocytes 2.61 (L) 3.92 - 09/22/2021 DTL 5.13 9:24 AM CDT x10(12)/L MCV 102.7 (H) 78.2 - 09/22/2021 DTL 97.9 fL 9:24 AM CDT RBC Distrib Width 16.5 (H) 12.2 - 09/22/2021 DTL 16.1 % 9:24 AM CDT Platelet Count 232 157 - 371 09/22/2021 DTL x10(9)/L 9:24 AM CDT Leukocytes 7.2 3.4 - 9.6 09/22/2021 DTL x10(9)/L 9:24 AM CDT Specimen Anatomical Collection Method Collection Time Receive d Time (Source) Location / / Volume Laterality Blood (Blood, 09/22/2021 8:47 AM 09/23/19 9:01 Venous) CDT AM CDT Narciso Leach P.A.-C. LAB BLOOD ADD-ON Performing Organization Address City/[facility] Phon e Number [facility] - [address] Reticulocytes (09/22/2021 8:43 AM CDT) athologist Signature Reticulocytes, B 1.43 0.60 - 09/22/2021 DTL 2.71 % 10:02 AM CDT Absolute 38.5 30.4 - 09/22/2021 DTL Reticulocyte 110.9 10:02 AM CDT x10(9)/L Specimen Anatomical Collection Method Collection Time Receive d Time (Source) Location / / Volume Laterality Blood 09/22/2021 8:43 AM 9:49 CDT AM CDT Narciso Leach P.A.-C. LAB BLOOD ADD-ON Performing Organization Address City/[facility] Phon e Number [facility] - [address] (ABNORMAL) Basic Metabolic Panel (09/21/2021 7:43 AM CDT) athologist Signature Potassium, S 3.4 (L) 3.6 - 5.2 09/21/2021 DTL mmol/L 8:38 AM CDT Sodium, S 138 135 - 145 09/21/2021 DTL mmol/L 8:38 AM CDT Chloride, S 103 98 - 107 09/21/2021 DTL mmol/L 8:38 AM CDT Bicarbonate, S 26 22 - 29 09/21/2021 DTL mmol/L 8:38 AM CDT Anion Gap 9 7 - 15 09/21/2021 DTL 8:38 AM CDT BUN (Blood 8 6 - 21 09/21/2021 DTL Urea mg/dL 8:38 AM CDT Nitrogen), S Creatinine, S 0.65 0.59 - 09/21/2021 DTL 1.04 mg/dL 8:38 AM CDT eGFR-Non 85 >=60 09/21/2021 DTL Black/ mL/min/BSA 8:38 AM CDT Trinidadian Comment: ----ADDITIONAL INFORMATION---- Estimated GFR calculated using the 2009 CKD_EPI creatinine equation. eGFR-Black/ >90 >=60 mL/min/BSA 2021 8:38 AM CDT DTL Comment: ----ADDITIONAL INFORMATION---- Estimated GFR calculated using the 2009 CKD_EPI creatinine equation. Calcium, Total, S 8.1 (L) 8.8 - 10.2 mg/dL 09/21/2021 8:38 AM CDT DTL Glucose, S 92 70 - 140 mg/dL 09/21/2021 8:38 AM CDT D TL Specimen Anatomical Collection Method Collection Time Receive d Time (Source) Location / / Volume Laterality Blood (Blood, 09/21/2021 7:43 AM 09/22/19 8:16 Venous) CDT AM CDT Narciso Leach P.A.-C. LAB BLOOD ADD-ON Performing Organization Address City/State/ZIP Code Phon e Number [facility] - [address] [place], [place] [address] [facility] [place] [address] [facility] [address] (ABNORMAL) CBC without Differential (09/21/2021 7:43 AM CDT) [facility] gist Method Time Signature Hemoglobin 8.4 (L) 11.6 - 09/21/2021 METH 15.0 g/dL 7:56 AM CDT Hematocrit 25.2 (L) 35.5 - 09/21/2021 METH 44.9 % 7:56 AM CDT Erythrocytes 2.47 (L) 3.92 - 09/21/2021 METH 5.13 7:56 AM CDT x10(12)/L MCV 102.0 (H) 78.2 - 09/21/2021 METH 97.9 fL 7:56 AM CDT RBC Distrib Width 16.3 (H) 12.2 - 09/21/2021 METH 16.1 % 7:56 AM CDT Platelet Count 194 157 - 371 09/21/2021 METH x10(9)/L 7:56 AM CDT Leukocytes 4.5 3.4 - 9.6 09/21/2021 METH x10(9)/L 7:56 AM CDT Specimen Anatomical Collection Method Collection Time Receive d Time (Source) Location / / Volume Laterality Blood (Blood, 09/21/2021 7:43 AM 09/22/19 7:52 Venous) CDT AM CDT Narciso Leach P.A.-C. LAB BLOOD ADD-ON Performing Organization Address City/State/ZIP Code Phon e Number [facility] - [address] [place], [place] [address] [facility] [place] [address] [facility] [address] [facility] Creatinine with Estimated GFR (09/21/2021 12:34 AM CDT) athologist Signature Creatinine, S 0.64 0.59 - 1.04 09/21/2021 DTL mg/dL 1:16 AM CDT eGFR-Non 85 >=60 09/21/2021 DTL Black/ mL/min/BSA 1:16 AM CDT Trinidadian Comment: ----ADDITIONAL INFORMATION---- Estimated GFR calculated using [...] City/State/ZIP Code Phon e Number [facility] - [address] [place], [place] [address] [facility] [place] [address] [facility] [address] [facility] (ABNORMAL) CBC with Differential, Blood (09/21/2021 12:34 AM CDT) [employer] Method Time Signature Hemoglobin 7.9 (L) 11.6 [...] Allen LAB BLOOD ADD-ON Performing Organization Address City/[facility] Phon e Number [facility] - [address] [place], [place] [address] [place] [address] Laboratories-[address] Folate (09/21/2021 12:31 AM CDT) athologist Signature Folate, S 17.5 >=4.0 mcg/L 09/22/2021 DTL 11:37 AM CDT Specimen Anatomical Collection Method Collection Time Receive d Time (Source) Location / / Volume Laterality Blood (Blood, 09/21/2021 12:31 09/22/2021 Venous) AM CDT 10:25 AM CDT Narciso Leach P.A.-C. LAB BLOOD ADD-ON Performing Organization Address [facility] Phon e Number [facility] - [address] [place], [place] [address] [place] [id number] [place] [address] Vitamin B12 Assay (09/21/2021 12:31 AM CDT) athologist Signature Vitamin B12 597 180 - 914 09/22/2021 DTL Assay, S ng/L 11:38 AM CDT Comment: [...] P.A.-C. LAB BLOOD ADD-ON Performing Organization Address City/[facility]/ZIP Code Phon e Number [facility] - [address] [place], [place] [address] [facility] [place] [address] [facility] [address] [facility] VRE PCR (09/20/2021 8:01 PM CDT) [employer] Method Time Signature Specimen Swab, 09/22/2021 DTL Source Perirectal 10:53 PM CDT VRE PCR Negative Negative 09/22/2021 DTL 10:53 PM CDT Comment: ----ADDITIONAL INFORMATION---- This test was developed using an analyte specific reagent. Its performance characteristics were determined by [facility] in a manner consistent with CLIA requirements. This test has not bee n cleared or approved by the U.S. Food and Drug Administration. Specimen Anatomical Collection Method Collection Time Receive d Time (Source) Location / / Volume Laterality Varies 09/20/2021 8:01 PM 8:53 (Perirectal) CDT PM CDT Walt Kinsey M.D., Ph.D. LAB MICROBIOLOGY - GENERAL O RDERABLES Performing Organization Address [facility] Phon e Number [facility] - [address] [place], [place] [address] [place] [address] [facility] 200 [facility] [place] Celiac Plexus/Splanchnic Block Injection (09/20/2021 12:07 [...] fellow participated in the procedure, and the tax consultant was present for the entire procedure. OPERATIVE NOTE INFORMATION Specimens: 0 Drains: 0 Estimated blood loss: 0 Implants: 0 Kota Sanches D.O., M.P.H. 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) documented in this encounter Administered Medications Inactive Administered Medications - up to 3 most recent administrations Medication Order MAR Action Action Date Dose Rate Site bupivacaine-EPINEPHrine (PF) 0.5 Given 09/20/2021 11:09 AM CDT 1 0 mL %-1:200,000 injection 10 mL (MARCAINE w/EPI) 10 mL, injection, One-Time Injection, Starting on Mon09/20/21 at 1109, For 1 dose calcitRIOL capsule 0.5 mcg (ROCALTROL) Given 09/24/2021 8:54 AM CDT 0.5 mcg 0.5 mcg, oral, Daily, First dose on Mon09/23/21 at 0900 Given 09/23/2021 8:47 AM CDT 0.5 mcg xpbokzu-C2-xqmr-copper-marlo 325 mg-12.5 Given 2021 8:55 AM CDT 3 tablets mcg -2.75 mg tablet 3 tablet 3 tablet, oral, Daily, First dose (after last modification) on Mon09/22/21 at 1800, Patient own med, RN to ID Given 09/23/2021 8:54 AM CDT 3 tablets Given 09/22/2021 6:13 PM CDT 3 tablets wjutqtg-F4-pppe-copper-marlo 325 mg-12.5 mcg Given 09/22/2021 2 :32 PM CDT -2.75 mg tablet oral, 3 times daily, First dose on Mon09/22/21 at 1400, Patient own med, RN to ID D5W infusion 10-250 mL/hr, intravenous, As needed, Medications Inco mpatible with 0.9% NaCL, Starting on Mon09/20/21 at 1043, Infuse at the same ra te as the piggyback until tubing clears or up to a volume of 20 mL pre and post infusion for medications incompatible with 0.9% NaCL. Use 100 mL bag then disca rd. ethyl alcohoL (ethanoL) injection 15 mL Given 09/20/2021 11:09 A M CDT 15 mL (ABLYSINOL) 15 mL, injection, One-Time Injection, Starting on Mon09/20/21 at 1109, For 1 dose fentaNYL injection (SUBLIMAZE) Given 09/20/2021 11:28 AM 50 mcg Code/trauma/sedation medication, Starting on CDT Mon09/20/21 at 1128 fludrocortisone tablet 0.1 mg (FLORINEF) Given 09/24/2021 8:54 AM CDT 0.1 mg 0.1 mg, oral, Daily, First dose on Mon09/22/21 at 1315 Given 09/23/2021 8:47 AM CDT 0.1 mg Given 09/22/2021 2:26 PM CDT 0.1 mg heparin flush 500 Units 500 Units, intra-catheter, Every 7 days, First dose on Mon09/21/21 at 0900, Implanted Vascular Access Device (IVAD) Venous Non-Eileen renee: When no infusion to maintain patency, following saline flush. heparin flush 500 Units Given 09/24/2021 2:08 PM CDT 500 Units 500 Units, intra-catheter, During hospitalization, line care, Prior to discharge, Starting on Mon09/20/21 at 1110, For 1 dose, Implanted Vascular Access Device (IVAD) Venous Non-Valved: Following saline flush prior to discharge. iohexoL 300 mg iodine/mL solution 1 mL Given 09/20/2021 11:09 AM CDT 1 mL (OMNIPAQUE) 1 mL, injection, One-Time Injection, Starting on Mon09/20/21 at 1109, For 1 dose lactated Ringer's bolus 1,000 mL New Bag 09/21/2021 12:13 PM CDT 1,000 mL 333 mL/hr 1,000 mL, intravenous, at 333 mL/hr, Administer over 3 Hours, Once, On Mon09/21/21 at 1200, For 1 dose lactated ringers New Bag 09/20/2021 5:33 PM CDT 20 mL/hr 20 mL/hr 20 mL/hr, intravenous, Continuous, Starting on Mon09/20/21 at 1045 New Bag 09/20/2021 11:06 AM CDT 20 mL/hr 20 mL/hr levothyroxine tablet 75 mcg (SYNTHROID, Given 09/24/2021 6:39 AM CDT 75 mcg LEVOTHROID) 75 mcg, oral, Daily before breakfast, First dose on Mon09/21/21 at 0700, 30-60 mins prior to breakfast Given 09/23/2021 6:22 AM CDT 75 mcg Given 09/22/2021 6:38 AM CDT 75 mcg lidocaine 20 mg/mL injection 10 mL Given 09/20/2021 11:09 AM CDT 10 mL (XYLOCAINE) 10 mL, injection, One-Time Injection, Starting on Mon09/20/21 at 1109, For 1 dose magnesium oxide tablet 1,600 mg (MAG-OX) Given 09/24/2021 6:39 AM CDT 1,600 mg 1,600 mg, oral, Daily before breakfast, First dose (after last modification) on Mon09/23/21 at 0700 Given 09/23/2021 6:23 AM CDT 1,600 mg magnesium oxide tablet 400 mg (MAG-OX) Given 09/22/2021 7:31 AM CDT 400 mg 400 mg, oral, Daily before breakfast, First dose on Mon09/21/21 at 0700 Given 09/21/2021 7:30 AM CDT 400 mg magnesium sulfate in water IVPB 2 g New Bag 09/22/2021 11:31 AM CDT 2 g 25 mL/hr 2 g, intravenous, at 25 mL/hr, Administer over 120 Minutes, Once, On Mon09/22/21 at 1100, For 1 dose, Over 2 hours. midazolam (PF) injection (VERSED) Given 09/20/2021 11:28 AM CDT 1 mg Code/trauma/sedation medication, Starting on Mon09/20/21 at 1128 NaCl 0.9% infusion 10-250 mL/hr, intravenous, As needed, Be tween Consecutive Piggyback Medications, Starting on Mon09/20/21 at 1043, Infuse at the same ra te as the piggyback until tubing clears or up to a volume of 20 mL . Select for IV medication administration when no maintenance IV available or when IV medication s are not compatible with maintenance fluid. NaCl 0.9% infusion 10-250 mL/hr, intravenous, As needed, Post Medications (Hazardous/Low Fluid Volume), Starting on Mon09/20/21 at 1043 , Infuse at the same rate as the medication until tubing cleared of medication, then discard. NaCl 0.9% infusion New Bag 09/20/2021 9:05 PM CDT 25 mL/hr 25 mL/hr 25 mL/hr, intravenous, Continuous, Starting on Mon09/20/[address] tablet 40 mg (PROTONIX) Given 09/24/2021 6:40 AM CDT 40 mg 40 mg, oral, Daily before breakfast, First dose on Laila 09/23/21 at 1045, Swallow whole. Do NOT crush, chew, or split tablet. Given 09/23/2021 10:55 AM CDT 40 mg phenylephrine injection 100 mcg Given 09/20/2021 12:26 PM CDT 100 mcg 100 mcg, intravenous, Once, On Mon09/20/21 at 1245, For 1 dose phenylephrine injection 100 mcg Given 09/20/2021 1:08 PM CDT 100 mcg 100 mcg, intravenous, Once, On Mon09/20/21 at 1315, For 1 dose potassium chloride ER tablet 20 mEq Given 09/24/2021 8:54 AM CDT 20 mEq (KLORCON/K-TAB) 20 mEq, oral, Daily with breakfast, First dose on Mon09/24/21 at 0800, Swallow whole. Do NOT crush, chew, or split tablet. potassium chloride ER tablet 40 mEq Given 09/21/2021 10:03 AM CD T 40 mEq (KLORCON/K-TAB) 40 mEq, oral, Once, On Mon09/21/21 at 0900, For 1 dose, Swallow whole. Do NOT crush, chew, or split tablet. potassium chloride ER tablet 40 mEq Given 09/22/2021 11:26 AM CD T 40 mEq (KLORCON/K-TAB) 40 mEq, oral, Once, On Mon09/22/21 at 1100, For 1 dose, Swallow whole. Do NOT crush, chew, or split tablet. sodium chloride 0.9 % injection 10 mL 10 mL, intravenous, As needed, line care , Implanted Vascular Access Device (IVAD) Venous Non-Valved, Starting on Mon09/20/21 at 1043, Pr ior to and following infusion, between multiple consecutive infusions, and prior to blood sampling, sodium chloride 0.9 % injection 10 mL Given 09/24/2021 8:55 AM CDT 10 mL 10 mL, intravenous, Every 12 hours scheduled, First dose on Mon09/20/21 at 2100, Implanted Vascular Access Device (IVAD) Venous Non-Valved: When no infusion to maintain patency. Given 09/23/2021 9:28 PM CDT 10 mL Given 09/22/2021 9:27 PM CDT 10 mL sodium chloride 0.9 % injection 10 mL Given 09/21/2021 10:05 AM CDT 10 mL 10 mL, intravenous, Every 7 days, First dose on Mon09/21/21 at 0900, Implanted Vascular Access Device (IVAD) Venous Non-Valved: When no infusion to maintain patency, followed by heparin flush. sodium chloride 0.9 % injection 10 mL 10 mL, intravenous, During hospitalizati on, line care, Prior to discharge, Starting on Mon09/20/21 at 1110, For 1 dose, Impl anted Vascular Access Device (IVAD) Venous Non-Valved: Followed by heparin flush prior to dischar ge. sodium chloride 0.9 % injection 10 mL 10 mL, intravenous, As needed, line care, Starting on Mon09/20/21 at 2046, Peripheral Intravenous Catheter and Rapid Infusion Cat heter, prior to blood sampling, post blood transfusion or post blood samplin g sodium chloride 0.9 % injection 20 mL 20 mL, intravenous, As needed, line care , Implanted Vascular Access Device (IVAD) Venous Non-Valved, Starting on Mon at 1043, Post blood transfusion or post blood sampling. sodium chloride 0.9 % injection 3 mL 3 mL, intravenous, As needed, line care, Starting on Mon09/20/21 at 2046, Prior to and following infusion and between multi ple consecutive infusions: sodium chloride 0.9 % injection sodium chloride 0.9 % injection 3 mL Given 09/23/2021 8:53 AM CDT 3 mL 3 mL, intravenous, Every 12 hours scheduled, First dose on Mon09/20/21 at 2100, Peripheral Intravenous Catheter and Rapid Infusion Catheter, when no infusion to maintain patency sodium chloride tablet 1 g Given 09/22/2021 10:00 AM CDT 1 g 1 g, oral, Once, On Mon09/22/21 at 0845, For 1 dose sodium chloride tablet 1 g Given 09/24/2021 11:25 AM CDT 1 g 1 g, oral, 3 times daily with meals, First dose (after last reorder) on Mon09/22/21 at 1700 Given 09/24/2021 8:54 AM CDT 1 g Given 09/23/2021 5:31 PM CDT 1 g documented in this encounter Active and Recently Administered Medications Times are shown in CDT. Scheduled Medication Order 09/22/2021 09/23/2021 09/24/2021 calcitRIOL capsule 0.5 mcg (ROCALTROL) 0 847 (Given - Provider: Evan Emerson R.N.) 0854 (Given - Provider: Zheng Neal) 0.5 mcg, oral, Daily, First dose on Mon09/23/21 at 0900 vjtifkf-P0-qfdj-copper-marlo 325 mg-12.5 mcg -2.75 mg tablet 3 tablet 1813 (Given - Provider: Ela Iniguez R.N.) 0854 (Given - Provider: Evan Emerson R.N.) 0855 (Given - Provider: Zheng Neal) 3 tablet, oral, Daily, First dose (after last modification) on Mon09/22/21 at 1800, Patient own med, RN to ID ftaxstz-E4-ebei-copper-marlo 325 mg-12.5 mcg -2.75 mg tablet (CANCELED) 1432 (Given - Provider: Dolly Gonzalez R.N.) oral, 3 times daily, First dose on Mon at 1400, Patient own med, RN to ID fludrocortisone tablet 0.1 mg (FLORINEF) 1426 (Given - Provider: Dolly Gonzalez R.N.) 0847 (Given - Provider: Evan Emerson R.N.) 0854 (Gi madonna - Provider: Adi Sanchez R.N.) 0.1 mg, oral, Daily, First dose on Mon09/22/21 at 1315 heparin flush 500 Units 500 Units, intra-catheter, Every 7 days, First dose on Mon09/21/21 at 0900, Implanted Vascular Access Device (IVAD) Venous Non-Valved: When no infusion to maintain patency, following saline flush. levothyroxine tablet 75 mcg (SYNTHROID, LEVOTHROID) 06 38 (Given - Provider: Jairo Chacon RChicoNChico) 0622 (Given - Provider: Maida Don R.N.) 0639 (Giv en - Provider: Lolly Jacobsen R.N.) 75 mcg, oral, Daily before breakfast, Fi rst dose on Mon09/21/21 at 0700, 30-60 mins prior to breakfast magnesium oxide tablet 1,600 mg (MAG-OX) 0623 (Given - Provider: Maida Don R.N.) 0639 (Given - Provider: Lolly Jacobsen R.N.) 1,600 mg, oral, Daily before breakfast, First dose (after last modification) on Mon09/23/21 at 0700 magnesium oxide tablet 400 mg (MAG-OX) (CANCELED) 0731 (Given - Provider: Dolly Gonzalez R.N.) 400 mg, oral, Daily before breakfast, First dose on Mon09/21/21 at 0700 magnesium sulfate in water IVPB 2 g (COMPLETED) 1131 ( New Bag - Provider: Dolly Gonzalez R.N.) 2 g, intravenous, at 25 mL/hr, Administe r over 120 Minutes, Once, On Mon09/22/21 at 1100, For 1 dose, Over [address] tablet 40 mg (PROTONIX) 1055 (Given - Provider: Evan Emerson RKendall) 0640 (Given - Provider: Lolly Jacobsen R.N.) 40 mg, oral, Daily before breakfast, Fir st dose on Mon09/23/21 at 1045, Swallow whole. Do NOT crush, chew, or split tablet. potassium chloride ER tablet 20 mEq (KLORCON/K-TAB) 0854 (Given - Provider: Adi Sanchez RChicoNChico) 20 mEq, oral, Daily with breakfast, Firs t dose on Mon09/24/21 at 0800, Swallow whole. Do NOT crush, chew, or split tablet. potassium chloride ER tablet 40 mEq (KLORCON/K-TAB) (C OMPLETED) 1126 (Given - Provider: Dolly Gonzalez R.N.) 40 mEq, oral, Once, On Mon09/22/21 at 11 00, For 1 dose, Swallow whole. Do NOT crush, chew, or split tablet. sodium chloride 0.9 % injection 10 mL 1000 (Given - Pr ovider: Dolly Gonzalez R.N.)2127 (Given - Provider: Corine Henderson R.N.) 0854 (Not Given - Provider: Evan Emerson R.N. - Reason: Contraindicated)2127 (Given - Provider: Sharmila Aguiar R.N.) 0855 (Given - Provider: Zheng Neal) 10 mL, intravenous, Every 12 hours sched uled, First dose on Mon09/20/21 at 2100, Implanted Vascular Access Device (IVAD) Venous Non-Valved: When no infusion to maintain patency. sodium chloride 0.9 % injection 10 mL 10 mL, intravenous, Every 7 days, First dose on Mon09/21/21 at 0900, Implanted Vascular Access Device (IVAD) Venous Non-Valved: When no infusion to maintain patency, followed by heparin flush. sodium chloride 0.9 % injection 3 mL 1000 (Not Given - Provider: Dolly Gonzalez R.N. - Reason: Contraindicated)2126 (Not Given - Provider: Corine Henderson R.N. - Reason: Order parameters not met) 0853 (Given - Provider: Evan Emerson R.N.)2127 (Not Given - Provider: Sharmila Aguiar R.N. - Reason: Order parameters not met) 0855 (Not Given - Provider: Adi hawley RKendall - Reason: Other) 3 mL, intravenous, Every 12 hours schedu led, First dose on Mon09/20/21 at 2100, Peripheral Intravenous Catheter and Rapid Infusion Catheter, when no infusion to maintain patency sodium chloride tablet 1 g (COMPLETED) 1000 (Given - P rovider: Dolly Gonzalez R.N.) 1 g, oral, Once, On Mon09/22/21 at 0845, For 1 dose sodium chloride tablet 1 g 1813 (Given - Provider: Ela sullivan RChicoNChico) 0847 (Given - Provider: Evan Emerson R.N.)1226 (Given - Provider: Evan Emerson R.N.)1731 (Given - Provider: Sharmila Aguiar R.N.) 0854 (Given - Provider: Adi Sanchez R.N.)1125 (Given - Provider: Adi J Kodet, R.N.) 1 g, oral, 3 times daily with meals, Fir st dose (after last reorder) on Mon09/22/21 at 1700 PRN Medication Order 09/22/2021 09/23/2021 09/24/2021 D5W infusion 10-250 mL/hr, intravenous, As needed, Me dications Incompatible with 0.9% NaCL, Starting on Mon09/20/21 at 1043, Infuse at the same rate as the piggyback until tubing clears or up to a volume of 20 mL pr e and post infusion for medications inco mpatible with 0.9% NaCL. Use 100 mL bag then discard. heparin flush 500 Units (COMPLETED) 1408 (Given - Provider: Medina Mayer R.N. - Comment: patient DC) 500 Units, intra-catheter, During hospit alization, line care, Prior to discharge, Starting on Mon09/20/21 at 1110, For 1 dose, Implanted Vascular Access Device (IVAD) Venous Non-Valved: Following saline flush prior to discharge. NaCl 0.9% infusion 10-250 mL/hr, intravenous, As needed, Be tween Consecutive Piggyback Medications, Starting on Mon09/20/21 at 1043, Infuse at the same rate as the piggyback until tubing clears or up to a volume of 20 mL. Select for IV medication administration when no maintenance IV available or when IV medications are not compatible with maintenance fluid. NaCl 0.9% infusion 10-250 mL/hr, intravenous, As needed, Po st Medications (Hazardous/Low Fluid Volume), Starting on Mon09/20/21 at 1043, Infuse at the same rate as the medication until tubing cleared of medication, then discard. ondansetron tablet 8 mg (ZOFRAN) 8 mg, oral, Every 8 hours PRN, nausea, v omiting, unrelieved by prochlorperazine, Starting on Mon09/20/21 at 2050 oxyCODONE IR tablet 5 mg (ROXICODONE) 5 mg, oral, Every 4 hours PRN, moderate pain or score 4-6 of 10, severe pain or score 7-10 of 10, Starting on Mon09/20/21 at 2050 sodium chloride 0.9 % injection 10 mL 10 mL, intravenous, As needed, line care , Implanted Vascular Access Device (IVAD) Venous Non-Valved, Starting on Mon09/20/21 at 1043, Prior to and following infusion, between multiple consecutive infusions, and prior to blood sampling, sodium chloride 0.9 % injection 10 mL 10 mL, intravenous, During hospitalizati on, line care, Prior to discharge, Starting on Mon09/20/21 at 1110, For 1 dose, Implanted Vascular Access Device (IVAD) Venous Non-Valved: Followed by heparin flush prior to discharge. sodium chloride 0.9 % injection 10 mL 10 mL, intravenous, As needed, line care , Starting on Mon09/20/21 at 2046, Peripheral Intravenous Catheter and Rapid Infusion Catheter, prior to blood sampling, post blood transfusion or post blood sampling sodium chloride 0.9 % injection 20 mL 20 mL, intravenous, As needed, line care , Implanted Vascular Access Device (IVAD) Venous Non-Valved, Starting on Mon09/20/21 at 1043, Post blood transfusion or post blood sampling. sodium chloride 0.9 % injection 3 mL 3 mL, intravenous, As needed, line care, Starting on Mon09/20/21 at 2046, Prior to and following infusion and between multiple consecutive infusions: sodium chloride 0.9 % injection documented in this encounter Care Teams Combiner Operator Relationship Specialty Start Date End Date Elsewhere, Pcp PCP - General Internal Medicine 09/24/21 documented as of this encounter
--- OUTSIDE RECORDS SUMMARY | 2021-11-03 07:00 | XMS_ITS | Encounter Summary ---
:1940 Author Organization [facility] Address [address] [place] [address] Care Team Providers Name Role Phone Aviva Laws APRN C.NChicoP., M.S.N. Primary Care Provider [phone] Reason for Referral Radiation Therapy (Routine) - Authorized Specialty Diagnoses / Procedures Referred By Contact Refer red To Contact Diagnoses Malignant Neoplasm Of Pancreas Adenocarcinoma (HCC) Yung Bills M.D. [facility] Procedures Management Visit [address] [place] [phone] Referral ID Status Reason Start Date Expiration Date Visits V isits Requested Authorized [id number] Authorized 06/22/2021 06/22/2022 10 10 Reason for Visit Radiation Therapy (Routine) - Authorized Specialty Diagnoses / Procedures Referred By Contact Refer red To Contact Diagnoses Malignant Neoplasm Of Pancreas Adenocarcinoma (HCC) Yung Bills M.D. [facility] Procedures Management Visit [address] [place] [phone] Referral ID Status Reason Start Date Expiration Date Visits V isits Requested Authorized [id number] Authorized 06/22/2021 06/22/2022 10 10 Encounter Details Date Type Department Care Team Description 08/12/2021 - Hospital Encounter Department of Vi Bills Neoplasm Of 08/13/2021 Radiation Oncology Yung Phillips M.D. Pancreas in [place], [address] [facility] Adenocarcinoma (HCC) [place], [place] [address] [facility] [address] [place], [place] [phone] (Work) [phone] Social History Tobacco Use Types Packs/Day Years [...] or relatives? How often do you attend yazidi or More than 4 times per year 06/19/2021 buddhism services? Do you belong to any clubs or Yes 06/19/2021 organizations such as yazidi groups, unions, fraternal or athletic groups, or [...] place to sleep or slept in a half-way (including now)? Education Answer Date Recorded What is the highest level of school you have Some college, n o degree 10/23/2020 completed or the highest degree you have received? Sex Assigned at Date Recorded Female 07/03/2017 2:07 PM CDT documented as of this encounter Last Filed Vital Signs Vital Sign Reading Time Taken Comments Blood Pressure 143/74 08/12/2021 2:08 PM CDT Pulse 88 08/12/2021 2:08 PM CDT Temperature 36.7 ??C (98 ??F) 08/12/2021 2:08 PM CDT Respiratory Rate - - Oxygen Saturation - - Inhaled Oxygen Concentration - - Weight 48.1 kg (106 lb 0.7 oz) 08/12/2021 2:08 PM CDT Height - - Body Mass Index 17.43 01/26/2021 1:18 PM CDT documented in this encounter Medications at Time of Discharge Medication Sig Dispensed Refills Start Date End Date [id number]-copper- Take by mouth. 0 05/20/19 21 marlo (Citracal-D3 Taking 3-4 daily Maximum Plus) 325 mg-12.5 mcg -2.75 mg tablet ESTRIOL MICRONIZED, Three Times Weekly 0 03/17/20 20 BULK, MISC hydrocortisone Insert 25 mg into 0 01/20/2021 (ANUSOL-HC) 25 mg the rectum. suppository hydrocortisone (HYTONE) Apply topically. 0 2020 2.5 % cream ketoconazole (NIZORAL) MASSAGE INTO TO 0 12/02/19 21 2 % cream AFFECTED AREA ON FEET 1-2X DAILY UNTIL RESOLVED levothyroxine 0 09/12/2020 (SYNTHROID, LEVOTHROID) 75 mcg tablet lidocaine-prilocaine Apply 1 application 30 g 0 2020 (EMLA) 2.5-2.5 % cream topically as needed for pain (30 minutes prior to port access). loperamide (IMODIUM TAKE 2 CAPS AT ONSET 48 capsule 1 2020 A-D) 2 mg OF DIARRHEA, THEN 1 capsuleIndications: CAP EVERY 2HRS UNTIL Malignant Neoplasm Of DIARRHEA FREE FOR Pancreas (HCC) 12HRS. MAY TAKE 2 CAPS EVERY 4HRS AT NIGHT magnesium oxide Take 400 mg by 0 05/14/2020 (MAG-OX) 400 mg (241.3 mouth. Taking 4 mg magnesium) tablet tablets daily nystatin (MYCOSTATIN) Take 5 mL (500,000 280 mL 0 2020 100,000 unit/mL Units total) by suspension mouth 4 (four) times a day. Swish in mouth and swallow. ondansetron (ZOFRAN) 8 Take 1 tablet (8 mg 30 tablet 3 05/25 mg tabletIndications: total) by mouth Malignant Neoplasm Of every 8 (eight) Pancreas Adenocarcinoma hours as needed for (HCC) nausea or vomiting (unrelieved by prochlorperazine). traMADoL (ULTRAM) 50 mg Take 1-2 tablets 180 tablet 0 2020 tabletIndications: (50-100 mg total) by Chronic Pain/Nonacute mouth every 6 (six) Pain hours as needed for pain Indications: Chronic Pain/Nonacute Pain. calcitRIOL (ROCALTROL) Take 2 capsules (0.5 180 capsule 3 09/16/2021 0.25 mcg capsule mcg total) by mouth daily. 2-3 tablets daily depending on calcium level capecitabine (XELODA) Take 300 mg by mouth 0 09/16/2021 150 mg tablet 2 (two) times a day. Total dose 1300 mg po bid, Mon-Fri with radiation.Take within 30 minutes after a meal. Swallow whole with water. Do not crush or cut. capecitabine (XELODA) Take 2 tablets by 0 09/16/2021 500 mg tablet mouth 2 (two) times a day. Take within 30 minutes after a meal. Swallow whole with water. Do not crush or cut. Creon 24,000-76,000 TAKE 2 CAPSULES BY 360 capsule 3 022 09/16/2021 -120,000 unit capsule MOUTH 3 (THREE) TIMES A DAY WITH MEALS. dexAMETHasone TAKE 2 TABLETS BY 12 tablet 1 12/10/202008/26 (DECADRON) 4 mg MOUTH DAILY. TAKE tabletIndications: FOR 3 DAYS ON DAYS Malignant Neoplasm Of 2, 3, AND 4. Pancreas Adenocarcinoma (HCC) diphenoxylate-atropine Take 1 tablet by 120 tablet 2 021 09/24/2021 (LOMOTIL) 2.5-0.025 mg mouth 4 (four) times per tablet a day. lisinopriL Take 20 mg by mouth. 0 04/10/2020 07/0 03/2021 (PRINIVIL,ZESTRIL) 20 mg tablet LORazepam (ATIVAN) 0.5 Take 1 tablet (0.5 30 tablet 3 06/0709/16/2021 mg tabletIndications: mg total) by mouth Malignant Neoplasm Of every 8 (eight) Pancreas Adenocarcinoma hours as needed (HCC) (nausea, vomiting) for up to 30 doses. If ineffective, may repeat once after 30 minutes. metoclopramide (REGLAN) Take 1-2 tablets 20 tablet 0 202109/24/2021 5 mg tablet (5-10 mg) 2 to 3 times daily administered prior to meals. NON Estriol 0.3% Vaginal 30 g 11 07/03/201708/26 FORMULARYIndications: Cream, compounded. 1 Atrophy Vagina Due To gram vaginally Estrogen Deficiency nightly for 7 days, then 3 nights each week. Disp. 30 g, 11 refills documented as of this encounter Progress Notes Yung Bills M.D. - 08/12/2021 2:15 PM CDT SUBJECTIVE REASON FOR VISIT Evaluation for side effects while receiving radiation treatment for 1. Malignant Neoplasm Of Pancreas Adenocarcinoma (HCC) SUPERVISED BY: Yung Bills M.D. ([phone]) HISTORY OF PRESENT ILLNESS Azeb العراقي is a 81 y.o. 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 She is now undergoing radiotherapy with concurrent oral capecitabine. Chemotherapy is being managed by Dr. Garcia at [facility]. She had a break from treatment from July 19, 2021 through July 25, 2021 because she tested positive for COVID-19 on July 19, 2021. Treatment Course: 1xPancreas Plan ID Fractions Dose / Fraction (cGy) Dose Treated (cGy) Dose Planned (cGy) First Treatment Last Treatment Elapsed Days [id number] 200 4800 5000 07/05/2021 08/12/2021 38 Course Summary 07/05/2021 08/12/2021 38 Oncology History Malignant Neoplasm Of Pancreas Adenocarcinoma (HCC) 02/2020 Initial Diagnosis The patient started experiencing epigastric abdominal pain occasionally radiating to her back. Thiswas associated with a loss of appetite, 13 lbs weight loss and occasional dry heaves/nausea. 05/20/[address] scan of the abdomen and pelvis demonstrated a complex solid and cystic mass uncinate process of the pancreas measuring 2.8 x 3.0 cm. No pancreatic duct dilation. There was narrowing of the superiormesenteric vein with reconstitution distally. The segment of narrowing extended over a length of 3.3cm. Retroperitoneal adenopathy was present with multiple enlarged lymph nodes with central low density suggesting necrotic nodes, measuring up to 1.6 cm. Additional adenopathy medial to the pancreatic head measuring 1 cm. Adenopathy in the aortocaval space measuring up to 1.1 cm. Mildly prominent leftperiaortic lymph nodes. 05/25/2020 Other 05/25/2020: CA 19-9 was 178 08/03/2020: CA 19-9 was 98 09/14/2020: CA 19-9 was 57 10/12/2020: CA 19-9 was 44 11/10/2020: CA 19-9 was 42 12/09/2020: CA 19-9 was 34 01/04/2021: CA 19-9 was 29 01/18/2021: CA 19-9 was 74 02/08/2021: CA 19-9 was 73 05/10/2021: CA 19-9 was 77 05/24/2021: CA 19-9 was 150 06/07/2021: CA 19-9 was 103 06/14/2021: CA 19-9 was 113 05/28/2020 Biopsy/Pathology EUS demonstrated an irregular mass identified in the pancreatic neck. The mass was hypoechoic and the borders were poorly defined. The mass had an appearance suggestive of a mostly retroperitoneally growing mass extending from the pancreas with infiltration of almost all abutting major arteries and veins. Multiple malignant-appearing nodes, ascites, likely omental deposits. No solid hepatic masses seen. PATHOLOGY: A. Pancreas, Neck, EUS fine needle aspiration (smears/cell block): - Positive for malignancy. Adenocarcinoma. B. Lymph node, Celiac, EUS fine needle aspiration (smears/cell block): - Positive for malignancy. Metastatic adenocarcinoma. 06/04/2020 Genetic Testing and Tumor Genotyping Attempted [facility] testing: Not enough tissue. Exam canceled. pMMR. 07/20/2020 - discussed re: genetic counseling and BRCA testing. Patient deferred. 11/12/2020: Genetic testing in 2020; Pancreatic Cancer panel and the Common Hereditary Cancers panel from [facility]. 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 06/08/2020 - 01/18/2021 Chemotherapy FOLFIRINOX ( Fluorouracil / Leucovorin / Irinotecan / Oxaliplatin ) Start Date: 06/08/2020 15 cycles completed in [place] under the care of Dr. Vivar. 01/26/2021 Surgery and Procedures ERCP demonstrated an edematous mild-moderate stenosis found at the duodenal angle into the second portion of the duodenum. The major papilla was normal, with an edematous intramural ampullary segment above it. Contrast demonstrated the main bile duct was diffusely dilated to maximum 20 mm, above a 10-15 mm long distal stenosis. One 4 cm long x 10 mm diameter bare metal Wallflex stent was placed 3 cminto the common bile duct. 02/09/2021 - 06/16/2021 Chemotherapy FOLFIRINOX ( Fluorouracil / Leucovorin / Irinotecan / Oxaliplatin ) Cycles 16 - 24 completed at [facility] under the care of [facility] Medical Oncology providers. 05/12/2021 Imaging Ultrasound of the abdomen demonstrated hyperechoic layering debris noted within the gallbladder lumen consistent with sludge. Sludge material also appeared to be present within the common bile duct stent. Pancreatic duct dilatation was similar. There was a hypoechoic area within the pancreatic head measuring 14 x 7 x 11 mm, which appeared related to dilated pancreatic duct when comparing to the prior exam. The pancreatic parenchyma was heterogeneous and ill-defined. No intrahepatic mass. 06/14/[address] Vieira who discussed going ahead with one more treatment and then considerationof consultation with Radiation Oncology. If localized radiation is feasible, would consider oral capecitabine during her course of treatment. They would then consider chemotherapy holiday after local therapy. 06/14/[address] scan of the chest, abdomen, and pelvis demonstrated increased distension of the common bile duct, now measuring up to 1.9 cm. There was air and fluid within the common bile duct extending into the right intrahepatic duct. Ductal dilation of the pancreatic duct was mildly increased, measuring up to7 mm. Ill-defined pancreatic head mass again noted with low-density mass arising superiorly measuring 1 cm and a second lesion arising anteriorly measuring 9 mm. Ill- defined retroperitoneal stranding was similar with a small amount of edema/fluid extending along the right inferior mesenteric fat, increased slightly. Stable subcentimeter left supraclavicular lymph node and right pelvic sidewall lymph n ode. No suspicious thoracic, abdominal, or pelvic lymph nodes. Stable position of the internal biliary stent. 07/05/2021 - Radiation Therapy Radiation Therapy Treatment Details (Noted on 06/22/2021) Site: Pancreas Technique: IMRT Goal: Curative Planned Treatment Start Date: 07/05/2021 The patient was seen and examined today with Dr. Bills. The patient reports she is feeling somewhat better today. She continues to be fatigued. She has had minimal appetite so her oral intake has been poor. She is getting in about 2 cans of boost per day and other small bites of food. She has been able to maintain her hydration this week. She believes she has lost about 5 pounds. She notices she has occasional nausea and vomiting when she has an empty stomach. She reports the abdominal pain to be at a tolerable level today. She states that she is it taking 1-2 tablets of tramadol a day and 1-2 tablets of tylenol a day. She reports she is not using oxycodone. She states her bowel movements to be unchanged. She reports she is looking forward to being done with treatment and the chemo pills tomorrow. PATIENT REPORTED SYMPTOM SCREEN FATIGUE (Scale: 0 = no fatigue; 10 = worst fatigue you can imagine): 6 PAIN (Scale: 0 = no pain; 10 = worst pain you can imagine): 5 OVERALL QUALITY OF LIFE (Scale: 0 = as bad as can be; 10 = as good as can be): 6 OBJECTIVE BP 143/74 (BP Location: Right arm, Patient Position: Sitting, Cuff Size: Regular) Pulse 88 Temp 36.7 ??C (Temporal) Wt 48.1 kg BMI 17.43 kg/m?? Weight: 07/13/2021 49.2 kg 08/12/2021 48.1 kg PHYSICAL EXAM General: Alert and oriented in no apparent distress. ASSESSMENT / PLAN #1??Stage III (cT4, cN1, cM0)??adenocarcinoma of the pancreatic head?? #2 Twenty four cycles of FOLFIRINOX completed June 16, 2021?? #3 Concurrent chemoradiotherapy initiated on July 05, 2021; anticipated completion on August 13, 2021 #4 Pruritic maculopapular rash on the face, preceding radiotherapy #5 COVID-19 infection necessitating a break from radiation treatment from July 19, 2021 through 2021 The patient is tolerating radiation treatment okay. She is scheduled to complete radiation tomorrow and take her last dose of chemotherapy tomorrow evening. She may continue to take tylenol, tramadol and or oxycodone as needed for the abdominal pain. She was reassured that the symptoms may slowly improve over the coming weeks. She was encouraged to continue eating small frequent meals and continue with the nutritional supplement drinks. She was provided with contact information and encouraged to call our office with questions or concerns. In follow up, she will have a CT scan on September 01 and she isscheduled to see Dr. Garcia at [facility] on September 06, 2021. She will contact us with a ny questions or concerns. We will continue with radiation treatment as planned. Toxicities reviewed with Dr. Bills today. Signed by: Ofelia Andino R.N. 08/12/2021 2:06 PM CDT I saw and evaluated the patient and participated in the wilkins portions of the service. I reviewed the documentation of Ofelia Andino R.N. and agree with the findings and plan. The patient appears fatigued. She finishes treatment on Monday. She did have a break from treatment for 1 week because she tested COVID positive. She has experienced anticipated side effects including grade 2 anorexia, grade 2 fatigue, grade 2 nausea, grade 2 abdominal pain, and grade 1 vomiting. She will have a CT scan on September 01, 2021 and a follow-up visit with Dr. Garcia on September 06, 2021. I will not schedule a formal follow-up inRadiation Oncology Clinic, but she knows she can contact me at any time with questions or concerns. She and her verbalized satisfaction with this plan. Signed by: Yung Bills M.D. 08/13/2021 6:08 PM CDT [facility] [address] [place] [address] documented in this encounter Miscellaneous Notes Addendum Note - Lindsey Fisher, C.N.A. - 08/12/2021 2:15 PM CDT Encounter addended by: Lindsey Fisher C.N.A. on: 08/16/2021 7:00 AM Actions taken: Letter saved documented in this encounter Plan of Treatment Upcoming Encounters Date Type Specialty Care Team Description 11/19/2021 Clinical Communication Admitting/Central Scheduling 11/23/2021 Comprehensive Visit Neurology Kenji Zaldivar M.D. [address] [place] [address] Scheduled Orders Name Type Priority Associated Diagnoses Order S chedule Management Visit Radiation Oncology Routine Malignant Neoplasm Of Once for 1 Pancreas Occurrences Adenocarcinoma (HCC) startin g 08/12/2021 until 2 documented as of this encounter Visit Diagnoses Diagnosis Malignant Neoplasm Of Pancreas Adenocarc inoma (HCC) documented in this encounter Care Teams Dairy Husbandman Relationship Specialty Start Date End Date Aviva Laws APRN, C.N.P., PCP - General Family Medicine 12/11/20 09/23/21 M.S.N. [address] [place] [phone] documented as of this encounter
--- OUTSIDE RECORDS SUMMARY | 2021-11-03 07:00 | XMS_ITS | Encounter Summary ---
:1940 Author Organization [facility] Address [address] [place] [address] Care Team Providers Name Role Phone Aviva Laws APRN, C.N.P., M.S.N. Primary Care Provider [phone] Encounter Details Date Type Department Care Team Description 08/13/2021 Documentation Department of Radiation Yung Bills, Oncology in [facility] [address] [facility] [address] [place] [phone] (Wo rk) Social History Tobacco Use Types Packs/Day Years [...] or relatives? How often do you attend muslim or More than 4 times per year 06/19/2021 zoroastrian services? Do you belong to any clubs or Yes 06/19/2021 organizations such as muslim groups, unions, fraternal or athletic groups, or [...] place to sleep or slept in a alf (including now)? Education Answer Date Recorded What is the highest level of school you have Some college, n o degree 10/23/2020 completed or the highest degree you have received? Sex Assigned at Date Recorded Female 07/03/2017 2:07 PM CDT documented as of this encounter Miscellaneous Notes Radiation Completion Notes - Christa Casey R.N. - 08/13/2021 11:59 PM CDT DIAGNOSIS: 1. Malignant Neoplasm Of Pancreas Adenocarcinoma (HCC) Attending Physician: Yung Bills M.D. ([id number]) Treatment Intent: Curative Concomitant Therapy: Chemotherapy Single Plan Treatment Course: 1xPancreas Plan ID Fractions Dose / Fraction (cGy) Dose Treated (cGy) Dose Planned (cGy) First Treatment Last Treatment Elapsed Days [id number] 200 5000 5000 07/05/2021 08/13/2021 39 Course Summary 07/05/2021 08/13/2021 39 Radiation Modality: Photons CLINICAL SUMMARY Azeb العراقي completed radiation treatment as planned with interruptions. Mrs. العراقي had COVID-19 infection during radiation therapy; necessitating??a break from??radiation treatment from July 19, 2021 through July 25, 2021. The course of treatment was tolerated with anticipated side effects. The patient experienced toxicities of grade 2 anorexia, grade 2 fatigue, grade 2 nausea, grade 2 abdominal pain, and grade 1 vomiting during radiation treatment. TREATMENT RESPONSE: Response to treatment will be determined by post-treatment imaging and/or laboratory work. RECOMMENDED FOLLOW UP: Primary Medical Oncologist. She will have a CT scan on September 01, 2021 and a follow-up visit with Dr. Garcia on September 06, 2021. Signed by: Christa Casey R.N., 08/20/2021 9:29 AM CDT [facility] [address] [place] [address] documented in this encounter Plan of Treatment Upcoming Encounters Date Type Specialty Care Team Description 11/19/2021 Clinical Communication Admitting/Central Scheduling 11/23/2021 Comprehensive Visit Neurology Kenji Zaldivar M.D. [address] [place] [address] documented as of this encounter Visit Diagnoses Diagnosis Malignant Neoplasm Of Pancreas Adenocarc inoma (HCC) - Primary documented in this encounter Care Teams Visual Stylist Relationship Specialty Start Date End Date Aviva Laws APRN, C.N.P., PCP - General Family Medicine 12/11/20 09/23/21 M.S.N. [address] [place] [phone] documented as of this encounter
--- OUTSIDE RECORDS SUMMARY | 2021-11-03 07:00 | XMS_ITS | Encounter Summary ---
:1940 Author Organization [facility] Address [address] [place] [address] Care Team Providers Name Role Phone Elsewhere, Pcp Primary Care Provider Unavailable Reason for Referral Outpatient (Routine) - Authorized Specialty Diagnoses / Procedures Referred By Contact Refer red To Contact Neurology Diagnoses Hypotension Orthostatic Priscila Kelley M.D. [facility] [address] [place] [address] Referral ID Status Reason Start Date Expiration Date Visits V isits Requested Authorized [id number] Authorized 10/12/2021 10/12/2022 1 1 Encounter Details Date Type Department Care Team Description 10/12/2021 [facility] Priscila Kelley Hypotension AND KINGSLEY Orellana M.D. Orthostatic (Primary [address] [facility] [address] [facility] [place] [address] [phone] Social History Tobacco Use Types Packs/Day Years [...] or relatives? How often do you attend gnosticism or More than 4 times per year 06/19/2021 faith services? Do you belong to any clubs or Yes 06/19/2021 organizations such as gnosticism groups, unions, fraBostan [employer] or athletic groups, or school groups? How [...] place to sleep or slept in a skilled nursing (including now)? Education Answer Date Recorded What is the highest level of school you have Some college, n o degree 10/23/2020 completed or the highest degree you have received? Sex Assigned at Date Recorded Female 07/03/2017 2:07 PM CDT documented as of this encounter Plan of Treatment Upcoming Encounters Date Type Specialty Care Team Description 11/19/2021 Clinical Communication Admitting/Central Scheduling 11/23/2021 Comprehensive Visit Neurology Kenji Zaldivar M.D. [address] [place] [address] Scheduled Referrals Name Type Priority Associated Diagnoses Order S [facility] Neurology Referral Outpatient Referral Routine Hypotension Ex pected: Orthostatic 10/12/2021 (Approximate), Expires: 01/12/2023 documented as of this encounter Visit Diagnoses Diagnosis Hypotension Orthostatic - Primary documented in this encounter Care Teams Equip Tech Relationship Specialty Start Date End Date Elsewhere, Pcp PCP - General Internal Medicine 09/24/21 documented as of this encounter
--- OUTSIDE RECORDS SUMMARY | 2021-11-03 07:00 | XMS_ITS | Encounter Summary ---
:1940 Author Organization [facility] Address [address] [place] [address] Care Team Providers Name Role Phone Aviva Laws APRN, C.N.P., M.S.N. Primary Care Provider +1 [phone] Encounter Details Date Type Department Care Team Description 08/09/2021 Hospital Encounter Department of Radiation Vy Bills, Oncology in [facility] [address] [facility] [address] [place] [phone] Social History Tobacco Use Types Packs/Day Years [...] or relatives? How often do you attend lutheran or More than 4 times per year 06/19/2021 christianity services? Do you belong to any clubs or Yes 06/19/2021 organizations such as lutheran groups, unions, fraternal or athletic groups, or [...] place to sleep or slept in a assisted (including now)? Education Answer Date Recorded What is the highest level of school you have Some college, n o degree 10/23/2020 completed or the highest degree you have received? Sex Assigned at Date Recorded Female 07/03/2017 2:07 PM CDT documented as of this encounter Medications at Time of Discharge Medication Sig Dispensed Refills Start Date End Date iflqlfh-G0-vkua-copper- Take by mouth. 0 05/20/19 21 marlo [...] Take 2 capsules (0.5 180 capsule 3 08/12/2021 0.25 mcg capsule mcg total) by mouth daily. capecitabine (XELODA) Take 300 mg by mouth [...] 11 refills documented as of this encounter Plan of Treatment Upcoming Encounters Date Type Specialty Care Team Description 11/19/2021 Clinical Communication Admitting/Central Scheduling 11/23/2021 Comprehensive Visit Neurology Kenji Zaldivar M.D. [address] [place] [address] documented as of this encounter Visit Diagnoses Not on filedocumented in this encounter Care Teams Mix Maker Relationship Specialty Start Date End Date Aviva Laws APRN, C.N.P., PCP - General Family Medicine 12/11/20 09/23/21 M.S.N. [address] [place] [address] documented as of this encounter
--- OUTSIDE RECORDS SUMMARY | 2021-11-03 07:00 | XMS_ITS | Encounter Summary ---
:1940 Author Organization [facility] Address [address] [place] [address] Care Team Providers Name Role Phone Aviva Laws APRN C.N.P., M.S.N. Primary Care Provider +1 [phone] Reason for Referral Outpatient (Routine) - Closed Specialty Diagnoses / Procedures Referred By Contact Refer red To Contact Diagnoses Malignant Neoplasm Of Pancreas Adenocarcinoma (HCC) Pain Cancer Associated Kota Sanches [place] Procedures [place] Celiac Plexus/Splanchnic Block Injection Gail, M.P.H. [address] [place] [address] Referral ID Status Reason Start Date Expiration Date Visits Requ ested Visits Authorized [id number] Closed 09/16/2021 09/16/2022 1 1 utpatient (Routine) - Authorized Specialty Diagnoses / Procedures Referred By Contact Refer red To Contact Palliative Medicine Diagnoses Malignant Neoplasm Of Pancreas Adenocarcinoma (HCC) Pain Cancer Associated Kota Sanches D.O., M.P.H. [address] [place] [address] Referral ID Status Reason Start Date Expiration Date Visits V isits Requested Authorized [id number] Authorized 09/16/2021 09/16/2022 1 1 Reason for Visit Outpatient (Routine) - Closed Specialty Diagnoses / Procedures Referred By Contact Refer red To Contact Pain Medicine Diagnoses Malignant Neoplasm Of Pancreas Adenocarcinoma (HCC) Daniel Vieira M.D. [address] [address] Referral ID Status Reason Start Date Expiration Date Visits Requ ested Visits Authorized [id number] Closed 09/07/2021 09/07/2022 1 1 Encounter Details Date Type Department Care Team Description 09/16/2021 Comprehensive Visit Division of Pain Myron, Pain Cancer Associated (Primary Dx); Medicine in [place], Malignant Neopl asm Of Pancreas Adenocarcinoma (HCC) Gail Obrien, M.P.H. [address] [address] [phone] Social History Tobacco Use Types Packs/Day Years [...] or relatives? How often do you attend druze or More than 4 times per year 06/19/2021 spiritism services? Do you belong to any clubs or Yes 06/19/2021 organizations such as druze groups, unions, fraternal or athletic groups, or [...] place to sleep or slept in a usp (including now)? Education Answer Date Recorded What is the highest level of school you have Some college, n o degree 10/23/2020 completed or the highest degree you have received? Sex Assigned at Date Recorded Female 07/03/2017 2:07 PM CDT documented as of this encounter Consult Notes Kota Sanches D.O., M.P.H. - 09/16/2021 10:00 AM CDT PAIN MEDICINE CONSULTATION CHIEF COMPLAINT: Abdominal pain in the setting of pancreatic cancer HISTORY OF PRESENT ILLNESS:Azeb العراقي is a 81 y.o. female with a history of pancreatic cancer. She has joint in the office this morning by her Will. I refer the interested reader to the nicely outlined notes my colleagues in Medical Oncology as wellas Radiation Oncology for full details regarding her presenting symptoms and history. We reviewed the Pain Clinic questionnaire. Pain is located about the stomach with some radiation to the back that is constant with variable intensity. Sharp, stabbing, deep qualities are noted. She has had progressive weight loss, anorexia, Asthenia, as well as opioid related side effects secondary to her malignancy. She fortunately has had some degree of stability with her disease and currently is not receiving chemotherapy as she is on a 3 month hiatus. Pain is typically provoked pre prandially as well as postprandial. Pain is alleviated with use of low-dose oxycodone, typically averaging 4 doses of 5 mg daily.Nearly every domain of his been affected by her pain including her ability to pursue hobbies and leisure activities with her , as well as routine daily activities. She did have a session of radio therapy which was not helpful and actually probably exacerbated her abdominal pain. Pain can radiateinto the right lower quadrant. History of appendectomy over 60 years ago. Objective: Alert interactive pleasant. Frail. Functional antigravity strength the upper lower extremities. Abdominal exam revealing of diffuse abdominal tenderness most notably in the subxiphoid regionextending above the umbilicus and into the right lower quadrant. Medical decision making: We did review her most recent PET-CT which was notable for large volume FDGavid uptake in the head and body of the pancreas. Impression/report/plan: Cancer associated pain of the abdomen secondary to pancreatic cancer Medical comorbidities Nice discussion had today regarding the presenting symptoms. She has a plethora of cancer related symptoms (for example Asthenia, anorexia, constipation) that I think would best be handled by my colleagues and experts in symptom management in palliative Medicine. We also discussed the routine use of oral oxycodone therapy in the need for a regular bowel regimen. Palliative Medicine Consultation request has been placed. From an interventional pain standpoint, I think trying to pursue a neurolytic celiac/splanchnic plexus block would be important at this time given the presenting symptoms of her abdominal pain. Discussed typical benefits, risks and alternatives and consent form signed. Shared with her that we would anticipate loose stools for days to weeks as well as the likelihood of blood pressure dysregulation fordays to weeks but that the focus is primarily on trying to treat the intensity and frequency of her current abdominal pain symptoms likely related to her pancreatic cancer. Lastly, we did discuss the more advanced options including that of intrathecal targeted drug delivery utilizing an intrathecal drug delivery device. Discussed typical reasons to pursue this most namelygiven the side effects from oral opioid therapies which she is currently experiencing. 60 minutes total time spent on care patient including greater than 50% time on counseling coordination of care Follow-up: Splanchnic block and Palliative Medicine Consultation documented in this encounter Plan of Treatment Upcoming Encounters Date Type Specialty Care Team Description 11/19/2021 Clinical Communication Admitting/Central Scheduling 11/23/2021 Comprehensive Visit Neurology Kenji Zaldivar M.D. [address] [place] [phone] Scheduled Referrals Name Type Priority Associated Diagnoses Order S chedule Palliative Medicine Outpatient Referral Routine Malignant Neop lasm Of Expected: - General consult Pancreas 09/16/2021 (clinic) Adenocarcinoma ( HCC) (Approximate), Pain Cancer Associated Expir es: 12/17/2022 documented as of this encounter Results [place] Celiac Plexus/Splanchnic Block Injection (09/20/2021 12:07 [...] fellow participated in the procedure, and the retail sales vitamin consultant was present for the entire procedure. OPERATIVE NOTE INFORMATION Specimens: 0 Drains: 0 Estimated blood loss: 0 Implants: 0 Kota Sanches D.O. M.P.H. FLUORO GUIDED PAIN PRO CEDURES documented in this encounter Visit Diagnoses Diagnosis Pain Cancer Associated - Primary Malignant Neoplasm Of Pancreas Adenocarc inoma (HCC) Hypotension Orthostatic - Primary Malignant Neoplasm Of Pancreas Adenocarc inoma (HCC) Pain Cancer Associated Lightheadedness Malignant Neoplasm Of Pancreatic Duct (H CC) documented in this encounter Care Teams Yarn Inspector Relationship Specialty Start Date End Date Aviva Laws APRN, C.N.P., PCP - General Family Medicine 12/11/20 09/23/21 M.S.N. [address] [address] documented as of this encounter
--- OUTSIDE RECORDS SUMMARY | 2021-11-03 07:00 | XMS_ITS | Encounter Summary ---
:1940 Author Organization [facility] Address [address] [place] [address] Care Team Providers Name Role Phone Aviva Laws APRN, C.N.P., M.S.N. Primary Care Provider +1 [phone] Encounter Details Date Type Department Care Team Description 08/10/2021 Hospital Encounter Department of Radiation Vy Bills, Oncology in [facility] [address] [facility] [address] [place] [phone] Social History Tobacco Use Types Packs/Day Years [...] or relatives? How often do you attend hoahaoism or More than 4 times per year 06/19/2021 episcopal services? Do you belong to any clubs or Yes 06/19/2021 organizations such as hoahaoism groups, unions, fraternal or athletic groups, or [...] place to sleep or slept in a longterm (including now)? Education Answer Date Recorded What is the highest level of school you have Some college, n o degree 10/23/2020 completed or the highest degree you have received? Sex Assigned at Date Recorded Female 07/03/2017 2:07 PM CDT documented as of this encounter Medications at Time of Discharge Medication Sig Dispensed Refills Start Date End Date xvfedeh-X6-ptnm-copper- Take by mouth. 0 05/20/19 21 marlo [...] Visit Neurology Kenji Zaldivar M.D. [address] [place] [address] documented as of this encounter Visit Diagnoses Not on filedocumented in this encounter Care Teams Chief Radiology Relationship Specialty Start Date End Date Aviva Laws APRN, C.N.P., PCP - General Family Medicine 12/11/20 09/23/21 M.S.N. [address] [place] [address] documented as of this encounter
--- OUTSIDE RECORDS SUMMARY | 2021-11-03 07:00 | XMS_ITS ---
:1940 Author Organization [facility] Address [address] [place] [address] Care Team Providers Name Role Phone Elsewhere, Pcp Primary Care Provider Unavailable Active Problems Problem Noted Date Malignant Neoplasm [...] Essential Primary 06/27/2006 Hypothyroidism 06/27/2006 Osteoporosis 06/27/2006 Current Oncology Plans FOLFIRINOX ( Fluorouracil / Leucovorin / Irinotecan / Oxaliplatin )Plan Start Date:06/07/2020 Plan Provider:Kimberly Rios APRN, C.N.P., M.S. Linked Problems Malignant Neoplasm Of Pancreas Adenocarc inoma (HCC)Neutropenia Chemotherapy Induced (HCC) Treatment Medications Current Day (Day 1, Cycle 16 Next Day (Day 1, Cycle 17 - - Planned for 02/01/2021) Planned for 11/ ) fluorouraciL fluorouraciL 3,000 mg in fluorouraciL 3, 000 mg in (ADRUCIL)fluorouracil NaCl 0.9% 92 mL IVPB NaCl 0.9% 92 mL I VPB (ADRUCIL) IVPB - for home use (ADRUCIL)irinotecan 220 mg (AD RUCIL)irinotecan 220 mg (ADRUCIL)fluorouracil in D5W 511 mL IVPB in D5W 511 mL IVPB (ADRUCIL) IVPB in 92 mL (CAMPTOSAR)oxaliplatin 80 mg (CAMPTO SRINATH)oxaliplatin 80 mg (ADRUCIL)irinotecan in D5W 266 mL IVPB in D5W 266 mL IVPB (CAMPTOSAR)irinotecan (ELOXATIN) (ELOXATIN) (CAMPTOSAR) IVPB in D5W 500 mL (CAMPTOSAR)leucovorin IVPB in D5W 250 mL (20 mg/mL)oxaliplatin (ELOXATIN)oxaliplatin (ELOXATIN) IVPB in 250 mL (ELOXATIN) VASCULAR ACCESS PATENCY - IMPLANTED VASCULAR ACCESS DEVICE (IVAD) VENOUS NON-VALVEDPlan Start Date:07/22/2021 Linked Problems Malignant Neoplasm Of Pancreas Adenocarc inoma (HCC)COVID-19 Infection Treatment Medications No medications scheduled. Past Plans Flushes/Hydration Plan Name Start Date Discontinue Date Treatment Discontinue Plan Medications Reason Provider VASCULAR ACCESS 07/22/2021 07/22/2021 No medications Therapy - PATENCY - scheduled. Complete PERIPHERAL INTRAVENOUS CATHETER AND RAPID INFUSION CATHETER VASCULAR ACCESS 06/08/2020 06/02/2021 No medications Unlisted - PATENCY - scheduled. IMPLANTED VASCULAR ACCESS DEVICE (IVAD) VENOUS NON-VALVED Hem/Onc Therapy Plan 1 Plan Name Start Date Discontinue Date Treatment Discontinue Plan Pr ovider Medications Reason HYDRATION 08/17/2020 08/17/2020 No medications Therapy Complete Nova Vivar, scheduled. M.B.B.S. Radiation Treatments Plan Last Treated Elapsed Days Fractions Prescribed Prescribed Total On Treated Fraction Dose Dose [id number] 08/13/2021 39 25 of 25 200 cGy 5,000 cGy Reference Point Last Treated On Elapsed Days Session Dose Total Dos e [id number] 08/13/2021 39 200 cGy 5,000 cGy Lifetime Dose Tracking Chemical Lifetime Dose Automatic Entry Manual Entry Radiation 79.1 mGy 79.1 mGy 0 mGy Fluoro Time 16.3 minutes 16.3 minutes 0 minutes DAP (Gy-cm2) 4.43 Gy-cm2 4.43 Gy-cm2 0 Gy-cm2 DAP (uGy-m2) 29.7 uGy-m2 29.7 uGy-m2 0 uGy-m2 Resolved Problems Problem Noted Date Resolved Date Abdominal Pain 09/21/2021 09/24/2021 Nevi Multiple 03/26/2014 06/09/2020 Keratosis Actinic 12/28/2011 06/09/2020 Keratosis Seborrheic 08/29/2007 06/09/2020
--- OUTSIDE RECORDS SUMMARY | 2021-11-03 07:00 | XMS_ITS | Encounter Summary ---
:1940 Author Organization [facility] Address [address] [place] [address] Care Team Providers Name Role Phone Aviva Laws APRN, C.N.P., M.S.N. Primary Care Provider +1 [phone] Encounter Details Date Type Department Care Team Description 08/12/2021 Hospital Encounter Department of Radiation Vy Bills, Oncology in [facility] [address] [facility] [address] [place] [phone] Social History Tobacco Use Types Packs/Day Years [...] More than 4 times per year 06/19/2021 gnosticism services? Do you belong to any clubs [...] place to sleep or slept in a residential (including now)? Education Answer Date Recorded What is the highest level of school you have Some college, n o degree 10/23/2020 completed or the highest degree you have received? Sex Assigned at Date Recorded Female 07/03/2017 2:07 PM CDT documented as of this encounter Medications at Time of Discharge Medication Sig Dispensed Refills Start Date End Date fwlrmnl-V5-ptlk-copper- Take by mouth. 0 05/20/19 21 marlo [...] Visit Neurology Kenji Zaldivar M.D. [address] [place] [address] documented as of this encounter Visit Diagnoses Not on filedocumented in this encounter Care Teams Plate Cutter Relationship Specialty Start Date End Date Aviva Laws APRN, C.N.P., PCP - General Family Medicine 12/11/20 09/23/21 M.S.N. [address] [place] [address] documented as of this encounter
--- OUTSIDE RECORDS SUMMARY | 2021-11-03 07:00 | XMS_ITS | Encounter Summary ---
:1940 Author Organization [facility] Address [address] [place] [address] Care Team Providers Name Role Phone Aviva Laws APRN, C.N.P., M.S.N. Primary Care Provider +1 [phone] Encounter Details Date Type Department Care Team Description 09/07/2021 Clinical Communication Department of Oncology Judith Vieira, in [facility] [address] [facility] [address] [place] [address] [phone] Social History Tobacco Use Types Packs/Day Years [...] or relatives? How often do you attend scientologist or More than 4 times per year 06/19/2021 mandaeism services? Do you belong to any clubs or Yes 06/19/2021 organizations such as scientologist groups, unions, fraternal or athletic groups, or [...] place to sleep or slept in a care home (including now)? Education Answer Date Recorded What is the highest level of school you have Some college, n o degree 10/23/2020 completed or the highest degree you have received? Sex Assigned at Date Recorded Female 07/03/2017 2:07 PM CDT documented as of this encounter Miscellaneous Notes Telephone Encounter - Daniel Vieira M.D. - 09/07/2021 7:42 AM CDT I saw the patient in the [facility] yesterday (see my notes in documents shan). Her pain continues to be debilitating in spite of radiation therapy. She is taking minimal amounts narcotic painmedication and I suggested increasing this. I also offered her a visit to the pain clinic in [place] to see if anything further can be done locally for her pain. Her recent scan did not show dramaticchange in the pancreatic lesions and only a 9 mm medial left supraclavicular lymph node. At this point I see no reason to continue with her ongoing chemotherapy as she has had nearly a year and a half of ongoing treatment without obvious metastatic disease. We will get her in to see if pain clinic canbe of benefit and also talked to her about increasing her narcotics prior to each meal to see if this will help. documented in this encounter Plan of Treatment Upcoming Encounters Date Type Specialty Care Team Description 11/19/2021 Clinical Communication Admitting/Central Scheduling 11/23/2021 Comprehensive Visit Neurology Kenji Zaldivar M.D. [address] [place] [address] documented as of this encounter Visit Diagnoses Not on filedocumented in this encounter Care Teams Client Customer Manager Relationship Specialty Start Date End Date Aviva Laws APRN, C.N.P., PCP - General Family Medicine 12/11/20 09/23/21 M.S.N. [address] [place] [address] documented as of this encounter
--- OUTSIDE RECORDS SUMMARY | 2021-11-03 07:00 | XMS_ITS | Encounter Summary ---
:1940 Author Organization [facility] Address [address] [place] [address] Care Team Providers Name Role Phone Aviva Laws APRN, C.N.P., M.S.N. Primary Care Provider +1 [phone] Encounter Details Date Type Department Care Team Description 08/11/2021 Hospital Encounter Department of Radiation Vy Bills, Oncology in [facility] [address] [facility] [address] [place] [phone] Social History Tobacco Use Types Packs/Day Years [...] or relatives? How often do you attend jew or More than 4 times per year 06/19/2021 tenriism services? Do you belong to any clubs or Yes 06/19/2021 organizations such as jew groups, unions, fraternal or athletic groups, or [...] place to sleep or slept in a senior living (including now)? Education Answer Date Recorded What is the highest level of school you have Some college, n o degree 10/23/2020 completed or the highest degree you have received? Sex Assigned at Date Recorded Female 07/03/2017 2:07 PM CDT documented as of this encounter Medications at Time of Discharge Medication Sig Dispensed Refills Start Date End Date fcuttez-D6-cwpo-copper- Take by mouth. 0 05/20/19 21 marlo [...] mcg capsule mcg total) by mouth daily. calcitRIOL (ROCALTROL) Take 2 capsules (0.5 180 [...] Visit Neurology Kenji Zaldivar M.D. [address] [place] [address] documented as of this encounter Visit Diagnoses Not on filedocumented in this encounter Care Teams Whipped Topping Mixer Relationship Specialty Start Date End Date Aviva Laws APRN, C.N.P., PCP - General Family Medicine 12/11/20 09/23/21 M.S.N. [address] [place] [address] documented as of this encounter
--- OUTSIDE RECORDS SUMMARY | 2021-11-03 07:00 | XMS_ITS | Encounter Summary ---
:1940 Author Organization [facility] Address [address] [place] [address] Care Team Providers Name Role Phone Aviva Laws APRN, C.N.P., M.S.N. Primary Care Provider +1 [phone] Encounter Details Date Type Department Care Team Description 08/13/2021 Hospital Encounter Department of Radiation Vy Bills, Oncology in [facility] [address] [facility] [address] [place] [phone] Social History Tobacco Use Types Packs/Day Years [...] or relatives? How often do you attend orthodoxy or More than 4 times per year 06/19/2021 scientology services? Do you belong to any clubs or Yes 06/19/2021 organizations such as orthodoxy groups, unions, fraternal or athletic groups, or [...] place to sleep or slept in a long term (including now)? Education Answer Date Recorded What is the highest level of school you have Some college, n o degree 10/23/2020 completed or the highest degree you have received? Sex Assigned at Date Recorded Female 07/03/2017 2:07 PM CDT documented as of this encounter Medications at Time of Discharge Medication Sig Dispensed Refills Start Date End Date ipdkrad-M1-rthu-copper- Take by mouth. 0 05/20/19 21 marlo [...] Visit Neurology Kenji Zaldivar M.D. [address] [place] [address] documented as of this encounter Visit Diagnoses Not on filedocumented in this encounter Care Teams Batch Attendant Relationship Specialty Start Date End Date Aviva Laws APRN, C.N.P., PCP - General Family Medicine 12/11/20 09/23/21 M.S.N. [address] [place] [address] documented as of this encounter
--- OUTSIDE RECORDS SUMMARY | 2021-11-03 07:00 | XMS_ITS | Encounter Summary ---
:1940 Author Organization [facility] Address [address] [place] [address] Care Team Providers Name Role Phone Elsewhere, Pcp Primary Care Provider Unavailable Encounter Details Date Type Department Care Team Description 09/29/2021 Specialty Pharmacy [facility] Andrés Zarate [address] Ravinder Rosado Jr., [place] [address] [address] [facility] [phone] [place] [address] (Wo rk) Social History Tobacco Use Types [...] or relatives? How often do you attend latter day or More than 4 times per year 06/19/2021 congregation services? Do you belong to any clubs or Yes 06/19/2021 organizations such as latter day groups, unions, fraternal or athletic groups, or [...] this encounter Miscellaneous Notes Telephone Encounter - Andrés Zarate Jr., R.Ph. - 09/29/2021 1:53 PM CDT [facility] Specialty Pharmacy service discontinued at this time. documented in this encounter Plan of Treatment Upcoming Encounters Date Type Specialty Care Team Description 11/19/2021 Clinical Communication Admitting/Central Scheduling 11/23/2021 Comprehensive Visit Neurology Kenji Zaldivar M.D. [address] [place] [address] documented as of this encounter Visit Diagnoses Not on filedocumented in this encounter Care Teams Protection Mgr Relationship Specialty Start Date End Date Elsewhere, Pcp PCP - General Internal Medicine 09/24/21 documented as of this encounter
--- OUTSIDE RECORDS SUMMARY | 2021-11-03 07:00 | XMS_ITS | Encounter Summary ---
:1940 Author Organization [facility] Address [address] [place] [address] Care Team Providers Name Role Phone Aviva Laws APRN, C.N.P., M.S.N. Primary Care Provider +1 -[phone] Reason for Visit Reason Comments Pre-visit Intake Encounter Details Date Type Department Care Team Description 09/13/2021 Clinical Communication Visit Review in Pr e-visit Intake [place], [place] [address] [place] [address] Social History Tobacco Use Types Packs/Day Years [...] or relatives? How often do you attend mormonism or More than 4 times per year 06/19/2021 jain services? Do you belong to any clubs or Yes 06/19/2021 organizations such as mormonism groups, unions, fraternal or athletic groups, or [...] Visit Neurology Kenji Zaldivar M.D. [address] [place] [address] documented as of this encounter Visit Diagnoses Not on filedocumented in this encounter Care Teams Director Public Relationship Specialty Start Date End Date Aviva Laws APRN, C.N.P., PCP - General Family Medicine 12/11/20 09/23/21 M.S.N. [address] [place] [address] documented as of this encounter
--- OUTSIDE RECORDS SUMMARY | 2021-11-03 07:00 | XMS_ITS | Encounter Summary ---
:1940 Author Organization [facility] Address [address] [place] [address] Care Team Providers Name Role Phone Aviva Laws APRN, C.N.P., M.S.N. Primary Care Provider +1 [phone] Reason for Visit Reason Comments Med Refill Encounter Details Date Type Department Care Team Description 08/11/2021 Refill Division of Endocrinology in [facility] Konrad love M.D. Med Refill [place], [place] [address] [facility] [address] [place] [address] [phone] (Wo rk) Social History Tobacco Use Types [...] More than 4 times per year 06/19/2021 jew services? Do you belong to any clubs [...] this encounter Miscellaneous Notes Telephone Encounter - Rex Arellano R.N. - 08/12/2021 9:21 AM CDT Prescription renewal request did not meet nurse protocol because: does not match plan of care per Endocrine note dated 09/22/20, due to pt reported taking different dose. Prescription refill request sent to Endocrine provider for further review. Protocol utilized: Prescription Renewal Request for Medications: Division of Endocrinology, Diabetes, Metabolism and Nutrition. documented in this encounter Plan of Treatment Upcoming Encounters Date Type Specialty Care Team Description 11/19/2021 Clinical Communication Admitting/Central Scheduling 11/23/2021 Comprehensive Visit Neurology Kenji Zaldivar M.D. [address] [place] [address] documented as of this encounter Visit Diagnoses Not on filedocumented in this encounter Care Teams Still Tender Relationship Specialty Start Date End Date Aviva Laws, LENNOX, C.N.P., PCP - General Family Medicine 12/11/20 09/23/21 Anisa [address] [place] [address] documented as of this encounter
--- OUTSIDE RECORDS SUMMARY | 2021-11-03 07:00 | XMS_ITS | Encounter Summary ---
:1940 Author Organization [facility] Address [address] [place] [address] Care Team Providers Name Role Phone Aviva Laws APRN C.N.P., M.S.N. Primary Care Provider +1 [phone] Reason for Referral Outpatient (Routine) - Closed Specialty Diagnoses / Procedures Referred By Contact Refer red To Contact Pain Medicine Diagnoses Malignant Neoplasm Of Pancreas Adenocarcinoma (HCC) Daniel Vieira M.D. [facility] [address] [place] [address] Referral ID Status Reason Start Date Expiration Date Visits Requ ested Visits Authorized [id number] Closed 09/07/2021 09/07/2022 1 1 Encounter Details Date Type Department Care Team Description 09/07/2021 Orders Only Department of Daniel Vieira Malignant N eoplasm Of Oncology in [place] Pancreas Adenocarcinoma [address] (HCC) (Primary Dx) [address] [place] [phone] Social History Tobacco Use Types Packs/Day Years [...] More than 4 times per year 06/19/2021 jehovah's witness services? Do you belong to any clubs [...] Comprehensive Visit Neurology Kenji Zaldivar M.D. [address] [place] [phone] Scheduled Referrals Name Type Priority Associated Diagnoses Order S chedule Pain Medicine - Outpatient Referral Routine Malignant Neoplasm Of Expected: Cancer consult Pancreas Adenocarcinoma (clinic) (HCC) (Approximate), Expires: 12/08/2022 documented as of this encounter Visit Diagnoses Diagnosis Malignant Neoplasm Of Pancreas Adenocarc inoma (HCC) - Primary documented in this encounter Care Teams Jelly Filter Tender Relationship Specialty Start Date End Date Aviva Laws APRN, C.N.P., PCP - General Family Medicine 12/11/20 09/23/21 [place] [address] [place] [address] documented as of this encounter
--- OUTSIDE RECORDS SUMMARY | 2021-11-03 07:01 | XMS_ITS | Encounter Summary ---
:1940 Author Organization [facility] Address [address] [place] [address] Care Team Providers Name Role Phone Aviva Laws APRN, C.N.P., M.S.N. Primary Care Provider +1 [phone] Encounter Details Date Type Department Care Team Description 07/26/2021 Hospital Encounter Department of Radiation Vy Bills, Oncology in [facility] [address] [facility] [address] [place] [phone] Social History Tobacco Use Types Packs/Day Years [...] or relatives? How often do you attend bahai or More than 4 times per year 06/19/2021 restorationist services? Do you belong to any clubs or Yes 06/19/2021 organizations such as bahai groups, unions, fraternal or athletic groups, or [...] place to sleep or slept in a long-term (including now)? Education Answer Date Recorded What is the highest level of school you have Some college, n o degree 10/23/2020 completed or the highest degree you have received? Sex Assigned at Date Recorded Female 07/03/2017 2:07 PM CDT documented as of this encounter Medications at Time of Discharge Medication Sig Dispensed Refills Start Date End Date guwewqu-N9-cigr-copper- Take by mouth. 0 05/20/19 21 marlo [...] with water. Do not crush or cut. dexAMETHasone TAKE 2 TABLETS BY 12 tablet 1 12/10/202008/26 (DECADRON) 4 mg MOUTH DAILY. TAKE tabletIndications: FOR 3 DAYS ON DAYS Malignant Neoplasm Of 2, 3, AND 4. Pancreas Adenocarcinoma (HCC) diphenoxylate-atropine Take 1 tablet by 120 tablet 2 021 09/24/2021 (LOMOTIL) 2.5-0.025 mg mouth 4 (four) times per tablet a day. zavotw-poioirhw-tfhmmrm Take 2 capsules by 360 capsule 3 07/27/2021 (CREON) mouth 3 (three) 24,000-76,000-120,000 times a day with Unit per DR capsule meals. lisinopriL Take 20 mg by mouth. 0 04/10/2020 07/0 03/2021 (PRINIVIL,ZESTRIL) 20 mg tablet LORazepam (ATIVAN) 0.5 Take 1 tablet (0.5 30 tablet 3 06/0709/16/2021 mg tabletIndications: mg total) by mouth Malignant Neoplasm Of every 8 (eight) Pancreas Adenocarcinoma hours as needed (HCC) (nausea, vomiting) for up to 30 doses. If ineffective, may repeat once after 30 minutes. metoclopramide (REGLAN) Take 1 tablet (10 mg 20 tablet 0 07/28/2021 10 mg tablet total) by mouth 3 (three) times a day with meals. NON Estriol 0.3% Vaginal 30 g [...] Neurology Kenji Zaldivar M.D. [address] [place] [address] documented as of this encounter Visit Diagnoses Not on filedocumented in this encounter Additional Health Concerns Infection Onset Date Last Indicated Resolved Time COVID19 07/19/2021 07/19/2021 08/08/2021 6:28 AM CDT documented as of this encounter Care Teams Technical Services Specialist Relationship Specialty Start Date End Date Aviva Laws APRN, C.N.P., PCP - General Family Medicine 12/11/20 09/23/21 M.S.N. [address] [place] [address] documented as of this encounter
--- OUTSIDE RECORDS SUMMARY | 2021-11-03 07:01 | XMS_ITS | Encounter Summary ---
:1940 Author Organization [facility] Address [address] [place] [address] Care Team Providers Name Role Phone Aviva Laws APRN C.N.P., M.S.N. Primary Care Provider +1 [phone] Encounter Details Date Type Department Care Team Description 07/28/2021 Clinical Communication Department of Yung Bills Radiation Oncology [place] [address] [facility] [address] [place] [phone] Social History Tobacco Use Types Packs/Day Years [...] or relatives? How often do you attend methodist or More than 4 times per year 06/19/2021 mosque services? Do you belong to any clubs or Yes 06/19/2021 organizations such as methodist groups, unions, fraternal or athletic groups, or [...] place to sleep or slept in a halfway (including now)? Education Answer Date Recorded What is the highest level of school you have Some college, n o degree 10/23/2020 completed or the highest degree you have received? Sex Assigned at Date Recorded Female 07/03/2017 2:07 PM CDT documented as of this encounter Miscellaneous Notes Telephone Encounter - Ofelia Andino R.N. - 07/29/2021 8:56 AM CDT Patient called to review medication instructions on the Reglan prescription. All questions answered today. Telephone Encounter - Dorothy Santana - 07/28/2021 12:36 PM CDT Caller: Patient Is there a valid authorization to speak with caller? Yes Primary Radiation Oncologist: Dr. Bills Reason for call: Patient sates she picked up her prescription for Reglan but is now unable to find it. She has spoken with the pharmacy, and she states they may be calling us to see about getting her asingle tablet for now. She wanted us to be aware of the situation in case they call. Phone number: [phone] Is it okay to leave a voicemail on answering machine with test results? No Pharmacy (if medication related): [facility] [address] [place] [facility] [address] [facility] [address] [facility] [address] [facility] [address] [address] [facility] 601 [facility] 601 [facility] [address] Dorothy Santana documented in this encounter Plan of Treatment Upcoming Encounters Date Type Specialty Care Team Description 11/19/2021 Clinical Communication Admitting/Central Scheduling 11/23/2021 Comprehensive Visit Neurology Kenji Zaldivar M.D. [address] [place] [address] documented as of this encounter Visit Diagnoses Not on filedocumented in this encounter Additional Health Concerns Infection Onset Date Last Indicated Resolved Time COVID19 07/19/2021 07/19/2021 08/08/2021 6:28 AM CDT documented as of this encounter Care Teams Component Engineer Relationship Specialty Start Date End Date Aviva Laws APRN, C.N.P., PCP - General Family Medicine 12/11/20 09/23/21 M.S.N. [address] [place] [address] documented as of this encounter
--- OUTSIDE RECORDS SUMMARY | 2021-11-03 07:01 | XMS_ITS | Encounter Summary ---
:1940 Author Organization [facility] Address [address] [place] [address] Care Team Providers Name Role Phone Aviva Laws APRN C.N.P., M.S.N. Primary Care Provider +1 -[phone] Encounter Details Date Type Department Care Team Description 07/19/2021 Clinical Communication Department of Yung Bills Radiation Oncology [place] [address] [facility] [address] [place] [phone] Social History Tobacco Use Types Packs/Day Years [...] or relatives? How often do you attend anabaptism or More than 4 times per year 06/19/2021 mu-ism services? Do you belong to any clubs or Yes 06/19/2021 organizations such as anabaptism groups, unions, fraternal or athletic groups, or [...] place to sleep or slept in a mcfp (including now)? Education Answer Date Recorded What is the highest level of school you have Some college, n o degree 10/23/2020 completed or the highest degree you have received? Sex Assigned at Date Recorded Female 07/03/2017 2:07 PM CDT documented as of this encounter Miscellaneous Notes Telephone Encounter - Kanwal Ramirez - 07/19/2021 8:16 AM CDT Caller: Kayli, nurse @ [facility] Is there a valid authorization to speak with caller? Yes Primary Radiation Oncologist: Dr. Bills Reason for call: Kayli called stating that the patient left a message there early this morning stating that she is tested COVID + over the weekend. Kayli was going to speak with Dr. Garcia about protocolsand then call the patient. She wanted to let us know. Phone number: Home Is it okay to leave a voicemail on answering machine with test results? Yes Pharmacy (if medication related): N/A Kanwal Ramirez documented in this encounter Plan of Treatment Upcoming Encounters Date Type Specialty Care Team Description 11/19/2021 Clinical Communication Admitting/Central Scheduling 11/23/2021 Comprehensive Visit Neurology Kenji Zaldivar M.D. [address] [place] [phone] documented as of this encounter Visit Diagnoses Not on filedocumented in this encounter Care Teams Audio Production Engineer Relationship Specialty Start Date End Date Aviva Laws, SKI GUIDE, C.N.P., PCP - General Family Medicine 12/11/20 09/23/21 M.S.N. [address] [place] [address] documented as of this encounter
--- OUTSIDE RECORDS SUMMARY | 2021-11-03 07:01 | XMS_ITS | Encounter Summary ---
:1940 Author Organization [facility] Address [address] [place] [address] Care Team Providers Name Role Phone Aviva Laws APRN, C.N.P., M.S.N. Primary Care Provider +1 [phone] Encounter Details Date Type Department Care Team Description 07/29/2021 Hospital Encounter Department of Radiation Vy Bills, Oncology in [facility] [address] [facility] [address] [place] [phone] Social History Tobacco Use Types Packs/Day Years [...] Sig Dispensed Refills Start Date End Date whzpwve-V9-zzzf-copper- Take by mouth. 0 05/20/19 21 marlo [...] Neurology Kenji Zaldivar M.D. [address] [place] [address] documented as of this encounter Visit Diagnoses Not on filedocumented in this encounter Additional Health Concerns Infection Onset Date Last Indicated Resolved Time COVID19 07/19/2021 07/19/2021 08/08/2021 6:28 AM CDT documented as of this encounter Care Teams Billiard Table Mechanic Relationship Specialty Start Date End Date Aviva Laws, LENNOX, C.N.P., PCP - General Family Medicine 12/11/20 09/23/21 M.S.N. [address] [place] [address] documented as of this encounter
--- OUTSIDE RECORDS SUMMARY | 2021-11-03 07:01 | XMS_ITS | Encounter Summary ---
:1940 Author Organization [facility] Address [address] [place] [address] Care Team Providers Name Role Phone Aviva Laws APRN, C.N.P., M.S.N. Primary Care Provider +1 -[phone] Encounter Details Date Type Department Care Team Description 07/27/2021 Hospital Encounter Department of Radiation Vy Bills, Oncology in [facility] [address] [facility] [address] [place] [phone] Social History Tobacco Use Types Packs/Day Years [...] or relatives? How often do you attend nondenominational or More than 4 times per year 06/19/2021 congregational services? Do you belong to any clubs or Yes 06/19/2021 organizations such as nondenominational groups, unions, fraternal or athletic groups, or [...] place to sleep or slept in a chcf (including now)? Education Answer Date Recorded What is the highest level of school you have Some college, n o degree 10/23/2020 completed or the highest degree you have received? Sex Assigned at Date Recorded Female 07/03/2017 2:07 PM CDT documented as of this encounter Medications at Time of Discharge Medication Sig Dispensed Refills Start Date End Date duxmigp-C3-ghep-copper- Take by mouth. 0 05/20/19 21 marlo [...] Visit Neurology Kenji Zaldivar M.D. [address] [place] [address] documented as of this encounter Visit Diagnoses Not on filedocumented in this encounter Additional Health Concerns Infection Onset Date Last Indicated Resolved Time COVID19 07/19/2021 07/19/2021 08/08/2021 6:28 AM CDT documented as of this encounter Care Teams Distribution Spec Relationship Specialty Start Date End Date Aviva Laws, LENNOX, C.N.P., PCP - General Family Medicine 12/11/20 09/23/21 M.S.N. [address] [place] [address] documented as of this encounter
--- OUTSIDE RECORDS SUMMARY | 2021-11-03 07:01 | XMS_ITS | Encounter Summary ---
:1940 Author Organization [facility] Address [address] [place] [address] Care Team Providers Name Role Phone Aviva Laws APRN, C.N.P., M.S.N. Primary Care Provider +1 -[phone] Encounter Details Date Type Department Care Team Description 07/28/2021 Hospital Encounter Department of Radiation Vy Bills, Oncology in [facility] [address] [facility] [address] [place] [phone] Social History Tobacco Use Types Packs/Day Years [...] or relatives? How often do you attend congregational or More than 4 times per year 06/19/2021 latter-day services? Do you belong to any clubs or Yes 06/19/2021 organizations such as congregational groups, unions, fraternal or athletic groups, or [...] place to sleep or slept in a group home (including now)? Education Answer Date Recorded What is the highest level of school you have Some college, n o degree 10/23/2020 completed or the highest degree you have received? Sex Assigned at Date Recorded Female 07/03/2017 2:07 PM CDT documented as of this encounter Medications at Time of Discharge Medication Sig Dispensed Refills Start Date End Date qbszqhy-H4-pjyj-copper- Take by mouth. 0 05/20/19 21 marlo [...] Neurology Kenji Zaldivar M.D. [address] [place] [address] documented as of this encounter Visit Diagnoses Not on filedocumented in this encounter Additional Health Concerns Infection Onset Date Last Indicated Resolved Time COVID19 07/19/2021 07/19/2021 08/08/2021 6:28 AM CDT documented as of this encounter Care Teams Medical And Scientific Illustrator Relationship Specialty Start Date End Date Aviva Laws, LENNOX, C.N.P., PCP - General Family Medicine 12/11/20 09/23/21 M.S.N. [address] [place] [address] documented as of this encounter
--- OUTSIDE RECORDS SUMMARY | 2021-11-03 07:01 | XMS_ITS | Encounter Summary ---
:1940 Author Organization [facility] Address [address] [place] [address] Care Team Providers Name Role Phone Veto Aviva Ruiz APRN, C.N.P., M.S.N. Primary Care Provider +1 -[phone] Reason for Visit Reason Comments Med Refill liihrp-hrzmdxcs-lnmxhwn Encounter Details Date Type Department Care Team Description 07/27/2021 Refill Department of Oncology Kimberly Rios, Med Refill in [facility] Kp cerrato APRN.Hossein., M.S. (lazyyr-rpyulpkb-paxyfqp [address] ) [place], [place] [address] [place], [place] [phone] (Wo rk) Social History Tobacco Use Types [...] or relatives? How often do you attend cheondoism or More than 4 times per year 06/19/2021 mu-ism services? Do you belong to any clubs or Yes 06/19/2021 organizations such as cheondoism groups, unions, fraternal or athletic groups, or [...] place to sleep or slept in a correction (including now)? Education Answer Date Recorded What is the highest level of school you have Some college, n o degree 10/23/2020 completed or the highest degree you have received? Sex Assigned at Date Recorded Female 07/03/2017 2:07 PM CDT documented as of this encounter Miscellaneous Notes Telephone Encounter - Gina Frederick - 07/27/2021 9:16 AM CDT Surescripts created refill request. documented in this encounter Plan of Treatment Upcoming Encounters Date Type Specialty Care Team Description 11/19/2021 Clinical Communication Admitting/Central Scheduling 11/23/2021 Comprehensive Visit Neurology Kenji Zaldivar M.D. [address] [place] [address] documented as of this encounter Visit Diagnoses Not on filedocumented in this encounter Additional Health Concerns Infection Onset Date Last Indicated Resolved Time COVID19 07/19/2021 07/19/2021 08/08/2021 6:28 AM CDT documented as of this encounter Care Teams Environmental Manager Relationship Specialty Start Date End Date Aviva Laws, LENNOX, C.N.P., PCP - General Family Medicine 12/11/20 09/23/21 M.S.N. [address] [place] [address] documented as of this encounter
--- OUTSIDE RECORDS SUMMARY | 2021-11-03 07:01 | XMS_ITS | Encounter Summary ---
:1940 Author Organization [facility] Address [address] [place] [address] Care Team Providers Name Role Phone Aviva Laws APRN, C.N.P., M.S.N. Primary Care Provider +1 -[phone] Encounter Details Date Type Department Care Team Description 08/06/2021 Hospital Encounter Department of Radiation Vy Bills, Oncology in [facility] [address] [facility] [address] [place] [phone] Social History Tobacco Use Types Packs/Day Years [...] or relatives? How often do you attend latter-day or More than 4 times per year 06/19/2021 roman catholic services? Do you belong to any clubs or Yes 06/19/2021 organizations such as latter-day groups, unions, fraternal or athletic groups, or [...] place to sleep or slept in a fdc (including now)? Education Answer Date Recorded What is the highest level of school you have Some college, n o degree 10/23/2020 completed or the highest degree you have received? Sex Assigned at Date Recorded Female 07/03/2017 2:07 PM CDT documented as of this encounter Medications at Time of Discharge Medication Sig Dispensed Refills Start Date End Date sombqpc-M3-dnyc-copper- Take by mouth. 0 05/20/19 21 marlo [...] Neurology Kenji Zaldivar M.D. [address] [place] [address] documented as of this encounter Visit Diagnoses Not on filedocumented in this encounter Additional Health Concerns Infection Onset Date Last Indicated Resolved Time COVID19 07/19/2021 07/19/2021 08/08/2021 6:28 AM CDT documented as of this encounter Care Teams Body Component Engineer Relationship Specialty Start Date End Date Aviva Laws, LENNOX, C.N.P., PCP - General Family Medicine 12/11/20 09/23/21 M.S.N. [address] [place] [address] documented as of this encounter
--- OUTSIDE RECORDS SUMMARY | 2021-11-03 07:01 | XMS_ITS | Encounter Summary ---
:1940 Author Organization [facility] Address [address] [place] [address] Care Team Providers Name Role Phone Aviva Laws APRN C.N[place]icoP[place], M.S.N. Primary Care Provider +1 [phone] Reason for Referral Radiation Therapy (Routine) - Authorized Specialty Diagnoses / Procedures Referred By Contact Refer red To Contact Diagnoses Malignant Neoplasm Of Pancreas Adenocarcinoma (HCC) Yung Bills M.D. [facility] Procedures Management Visit [address] [place] [phone] Referral ID Status Reason Start Date Expiration Date Visits V isits Requested Authorized [id number] Authorized 06/22/2021 06/22/2022 10 10 Reason for Visit Radiation Therapy (Routine) - Authorized Specialty Diagnoses / Procedures Referred By Contact Refer red To Contact Diagnoses Malignant Neoplasm Of Pancreas Adenocarcinoma (HCC) Yung Bills M.D. [facility] Procedures Management Visit [address] [place] [phone] Referral ID Status Reason Start Date Expiration Date Visits V isits Requested Authorized [id number] Authorized 06/22/2021 06/22/2022 10 10 Encounter Details Date Type Department Care Team Description 07/26/2021 Hospital Encounter Department of Vi Bills Neoplasm Of Radiation Oncology Yung Phillips M.D. Pancreas Adenocarcinoma in [place], [facility] 1st [facility] (HCC) (Primary Dx) [place], [place] [address] [facility] [address] [place], [place] [phone] (Work) [phone] Social History Tobacco Use Types Packs/Day Years [...] More than 4 times per year 06/19/2021 buddhist services? Do you belong to any clubs [...] place to sleep or slept in a fpc (including now)? Education Answer Date Recorded What is the highest level of school you have Some college, n o degree 10/23/2020 completed or the highest degree you have received? Sex Assigned at Date Recorded Female 07/03/2017 2:07 PM CDT documented as of this encounter Medications at Time of Discharge Medication Sig Dispensed Refills Start Date End Date udysldm-R6-cxdp-copper- Take by mouth. 0 05/20/19 21 marlo [...] 4 (four) times per tablet a day. mhsvcl-ippbbwkr-zsebbgv Take 2 capsules by 360 capsule 3 [...] encounter Progress Notes Yung Bills M.D. - 07/26/2021 4:15 PM CDT SUBJECTIVE REASON FOR VISIT Evaluation for side effects while receiving radiation treatment for 1. Malignant Neoplasm Of Pancreas Adenocarcinoma (HCC) HISTORY OF PRESENT ILLNESS Mrs. Azeb العراقي is a 81 y.o. 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 She is now undergoing radiotherapy with concurrent oral capecitabine. Chemotherapy is being managed by Dr. Garcia at [facility]. She had a break from treatment from July 19, 2021 through July 25, 2021 because she tested positive for COVID-19 on July 19, 2021. Treatment Course: 1xPancreas Plan ID Fractions Dose / Fraction (cGy) Dose Treated (cGy) Dose Planned (cGy) First Treatment Last Treatment Elapsed Days [id number] 200 2200 5000 07/05/2021 07/26/2021 21 Course Summary 07/05/2021 07/26/2021 21 The patient reports that she is slowly feeling somewhat better. She has had minimal appetite so her oral intake has been poor. She is getting in about 1 can of boost per day but not a lot of other food. She is also behind on her hydration. She does believe she has lost weight but she is not sure how much. Reports some postnasal drip and nasal congestion but denies any cough or sore throat. She had some nausea and vomiting when she coughed up some phlegm recently but none since. She also had an episode of abdominal pain after she urinated yesterday. This resolved quite quickly thereafter. OBJECTIVE There were no vitals taken for this visit. PHYSICAL EXAM General: Alert and oriented in no apparent distress. She was examined at the treatment machine with the therapists Christine and Diane, RTT. Lungs: Clear to auscultation bilaterally. Heart: Tachycardic but regular. ASSESSMENT / PLAN #1??Stage III (cT4, cN1, cM0)??adenocarcinoma of the pancreatic head #2 Twenty four cycles of FOLFIRINOX completed June 16, 2021 #3 Concurrent chemoradiotherapy initiated on July 05, 2021; anticipated completion on August 06, 2021 #4 Pruritic maculopapular rash on the face, preceding radiotherapy #5 COVID-19 infection necessitating a break from radiation treatment from July 19, 2021 through 2021 The patient is recovering from a COVID infection. She resumed treatment today after a 7 day break. She also resumed capecitabine today. I encouraged her to increase her intake of Boost or Ensure to 4 cans per day and increase her hydration. She agreed to do so. She will continue with treatment as planned. Signed by: Yung Bills M.D. 07/26/2021 5:11 PM CDT [facility] [address] [place] [address] documented in this encounter Plan of Treatment Upcoming Encounters Date Type Specialty Care Team Description 11/19/2021 Clinical Communication Admitting/Central Scheduling 11/23/2021 Comprehensive Visit Neurology Kenji Zaldivar M.D. [address] [place] [address] Scheduled Orders Name Type Priority Associated Diagnoses Order S chedule Management Visit Radiation Oncology Routine Malignant Neoplasm Of Once for 1 Pancreas Occurrences Adenocarcinoma (HCC) startin g 07/26/2021 until 2 documented as of this encounter Visit Diagnoses Diagnosis Malignant Neoplasm Of Pancreas Adenocarc inoma (HCC) - Primary documented in this encounter Additional Health Concerns Infection Onset Date Last Indicated Resolved Time COVID19 07/19/2021 07/19/2021 08/08/2021 6:28 AM CDT documented as of this encounter Care Teams Bag Machine Operator Helper Relationship Specialty Start Date End Date Aviva Laws, LENNOX, C.N.P., PCP - General Family Medicine 12/11/20 09/23/21 M.S.N. [address] [place] [phone] documented as of this encounter
--- OUTSIDE RECORDS SUMMARY | 2021-11-03 07:01 | XMS_ITS | Encounter Summary ---
:1940 Author Organization [facility] Address [address] [place] [address] Care Team Providers Name Role Phone Aviva Laws APRN C.NChicoP., M.S.N. Primary Care Provider +1 [phone] Reason for Referral Radiation Therapy (Routine) - Authorized Specialty Diagnoses / Procedures Referred By Contact Refer red To Contact Diagnoses Malignant Neoplasm Of Pancreas Adenocarcinoma (HCC) Yung Bills M.D. [facility] Procedures Management Visit [address] [place] [address] Referral ID Status Reason Start Date Expiration Date Visits V isits Requested Authorized [id number] Authorized 06/22/2021 06/22/2022 10 10 Reason for Visit Radiation Therapy (Routine) - Authorized Specialty Diagnoses / Procedures Referred By Contact Refer red To Contact Diagnoses Malignant Neoplasm Of Pancreas Adenocarcinoma (HCC) Yung Bills M.D. [facility] Procedures Management Visit [address] [place] [address] Referral ID Status Reason Start Date Expiration Date Visits V isits Requested Authorized [id number] Authorized 06/22/2021 06/22/2022 10 10 Encounter Details Date Type Department Care Team Description 08/03/2021 Hospital Encounter Department of Ramón Bills M.D. [address] [place] [phone] Malignant Neoplasm Of Radiation Oncology Israel Andujar M.D. [address] [place] [address] Pancreas in [place], Adenocarcinom a (HCC) [place] [address] [place] [address] Social History Tobacco Use Types Packs/Day Years [...] More than 4 times per year 06/19/2021 temple services? Do you belong to any clubs [...] place to sleep or slept in a prison (including now)? Education Answer Date Recorded What is the highest level of school you have Some college, n o degree 10/23/2020 completed or the highest degree you have received? Sex Assigned at Date Recorded Female 07/03/2017 2:07 PM CDT documented as of this encounter Last Filed Vital Signs Vital Sign Reading Time Taken Comments Blood Pressure - - Pulse - - Temperature 36.6 ??C (97.8 ??F) 08/03/2021 4:33 PM CDT Respiratory Rate - - Oxygen Saturation - - Inhaled Oxygen Concentration - - Weight 48.2 kg (106 lb 4.2 oz) 08/03/2021 4:33 PM CDT Height - - Body Mass Index 17.47 01/26/2021 1:18 PM CDT documented in this encounter Medications at Time of Discharge Medication Sig Dispensed Refills Start Date End Date xwxyxrp-I2-ftuw-copper- Take by mouth. 0 05/20/19 21 marlo (Citracal-D3 Taking 3-4 daily Maximum Plus) 325 mg-12.5 mcg -2.75 mg tablet ESTRIOL MICRONIZED, Three Times Weekly 0 03/17/20 20 BULK, MISC ketoconazole (NIZORAL) MASSAGE INTO TO 0 12/02/19 [...] for pain Indications: Chronic Pain/Nonacute Pain. hydrocortisone Insert 25 mg into 0 01/20/2021 (ANUSOL-HC) 25 mg the rectum. suppository hydrocortisone (HYTONE) Apply topically. 0 2020 2.5 % cream calcitRIOL (ROCALTROL) Take 2 capsules (0.5 180 [...] 04/10/2020 07/0 03/2021 (PRINIVIL,ZESTRIL) 20 mg tablet NON Estriol 0.3% Vaginal 30 g 11 07/03/20172 05/2021 FORMULARYIndications: Cream, compounded. 1 Atrophy Vagina Due To gram vaginally Estrogen Deficiency nightly for 7 days, then 3 nights each week. Disp. 30 g, 11 refills LORazepam (ATIVAN) 0.5 Take 1 tablet (0.5 [...] 3 times daily administered prior to meals. documented as of this encounter Progress Notes Israel Andujar M.D. - 08/03/2021 4:45 PM CDT SUBJECTIVE SUPERVISED BY: Dr. Andujar REASON FOR VISIT Evaluation for side effects while receiving radiation treatment for 1. Malignant Neoplasm Of Pancreas Adenocarcinoma (HCC) HISTORY OF PRESENT ILLNESS Mrs. Azeb العراقي is a 81 y.o. 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 She is now undergoing radiotherapy with concurrent oral capecitabine. Chemotherapy is being managed by Dr. Garcia at [facility]. She had a break from treatment from July 19, 2021 through July 25, 2021 because she tested positive for COVID-19 on July 19, 2021. Treatment Course: 1xPancreas Plan ID Fractions Dose / Fraction (cGy) Dose Treated (cGy) Dose Planned (cGy) First Treatment Last Treatment Elapsed Days [id number] 200 3400 5000 07/05/2021 08/03/2021 29 Course Summary 07/05/2021 08/03/2021 29 Patient seen and evaluated today with Dr. Andujar. Patient rates her abdominal discomfort at a 7 out of 10. She notes that pain is in relation to when she takes in food. She has been managing the pain with Tramadol and Oxycodone. She tried taking Reglan for 1 week but did not feel this helped with abdominal discomfort; she quit taking medicine. She notes minimal nausea but has not bee taking anti-emetics due to potential interaction with Reglan. She denies vomiting. T max of temperature in the last few days was 99. She denies post nasal drip or nasal congestion. OBJECTIVE Temp 36.6 ??C (Temporal) Wt 48.2 kg BMI 17.47 kg/m?? PHYSICAL EXAM General: Alert and oriented in [...] from a COVID infection. She resumed treatment on July 26, 2021 after a 7 daybreak. She also resumed capecitabine on July 26, 2021. I provided patient with sample of QueasEase aromatherapy today. She can resume anti-emetics since she is off of Reglan now. She will continue with treatment as planned. Radiation Oncology [place] can be contacted at anytime for any questions or concerns. Signed by: Christa Casey R.N. 08/03/2021 4:55 PM CDT [facility] [address] [place] [address] I have reviewed the notes of Christa Casey. I examined the patient. Pertinent findings: Thin fail appearing female in no distress. She does notesymptoms of abdominal discomfort prior to ingest with eating she utilizes pain medication on a regular basis (tramadol and oxycodone). Weight is been relatively stable overall she has lost about 20 lb since her initial diagnosis (128# down to 106#). Long discussion with the patient along with the patient's regarding oral intake I would recommend the patient to pursue mainly a liquid diet occasional use of smoothies as well. This may be easier on her from a transit standpoint. In addition the patient will utilize regular scheduled pain medications. In addition I did discuss the usual scenario regarding post treatment evaluation with a CT scan of the abdomen and pelvis in approximately 3 months post treatment this can be coordinated with Medical Oncology. We will proceed with planned radiation therapy, patient will assess her analgesics and let us know if she needs any refills. Patient is tolerating treatment. We will proceed with planned radiation therapy see again next week. Patient advised of the following COVID safety advice from the CDC: Stay home if you can and avoid any non-essential travel. Avoid social gatherings. Practice social distancing by keeping at least 6 feet -- about two arm lengths -- away from others if you must go out in public. Wash your hands often with soap and water for at least 20 seconds, especially after being in a public place, or after blowingyour nose, coughing or sneezing. If soap and water are not readily available, use a hand bliss press operator with at least 60% alcohol. Avoid touching your eyes, nose and mouth. Clean and disinfect household surfaces daily and high- touch surfaces frequently throughout the day. documented in this encounter Plan of Treatment Upcoming Encounters Date Type Specialty Care Team Description 11/19/2021 Clinical Communication Admitting/Central Scheduling 11/23/2021 Comprehensive Visit Neurology Kenji Zaldivar M.D. [address] [place] [address] Scheduled Orders Name Type Priority Associated Diagnoses Order S chedule Management Visit Radiation Oncology Routine Malignant Neoplasm Of Once for 1 Pancreas Occurrences Adenocarcinoma (HCC) startin g 08/03/2021 until 2 documented as of this encounter Visit Diagnoses Diagnosis Malignant Neoplasm Of Pancreas Adenocarc inoma (HCC) documented in this encounter Additional Health Concerns Infection Onset Date Last Indicated Resolved Time COVID19 07/19/2021 07/19/2021 08/08/2021 6:28 AM CDT documented as of this encounter Care Teams Siebel Developer Relationship Specialty Start Date End Date Aviva Laws APRN, C.N.P., PCP - General Family Medicine 12/11/20 09/23/21 M.S.N. [address] [place] [phone] documented as of this encounter
--- OUTSIDE RECORDS SUMMARY | 2021-11-03 07:01 | XMS_ITS | Encounter Summary ---
:1940 Author Organization [facility] Address [address] [place] [address] Care Team Providers Name Role Phone Aviva Laws APRN, C.N.P., M.S.N. Primary Care Provider +1 [phone] Encounter Details Date Type Department Care Team Description 07/30/2021 Hospital Encounter Department of Radiation Vy Bills, Oncology in [facility] [address] [facility] [address] [place] [phone] Social History Tobacco Use Types Packs/Day Years [...] More than 4 times per year 06/19/2021 hindu services? Do you belong to any clubs or Yes 06/19/2021 organizations such as gnosticism groups, unions, fraternal or athletic groups, or [...] Sig Dispensed Refills Start Date End Date obblkoh-D2-tjng-copper- Take by mouth. 0 05/20/19 21 marlo [...] Neurology Kenji Zaldivar M.D. [address] [place] [address] documented as of this encounter Visit Diagnoses Not on filedocumented in this encounter Additional Health Concerns Infection Onset Date Last Indicated Resolved Time COVID19 07/19/2021 07/19/2021 08/08/2021 6:28 AM CDT documented as of this encounter Care Teams Pe Manager Relationship Specialty Start Date End Date Aviva Laws, LENNOX, C.N.P., PCP - General Family Medicine 12/11/20 09/23/21 M.S.N. [address] [place] [address] documented as of this encounter
--- OUTSIDE RECORDS SUMMARY | 2021-11-03 07:01 | XMS_ITS | Encounter Summary ---
:1940 Author Organization [facility] Address [address] [place] [address] Care Team Providers Name Role Phone Aviva Laws APRN, C.N.P., M.S.N. Primary Care Provider +1 [phone] Encounter Details Date Type Department Care Team Description 08/05/2021 Hospital Encounter Department of Radiation Vy Bills, Oncology in [facility] [address] [facility] [address] [place] [phone] Social History Tobacco Use Types Packs/Day Years [...] place to sleep or slept in a retirement (including now)? Education Answer Date Recorded What is the highest level of school you have Some college, n o degree 10/23/2020 completed or the highest degree you have received? Sex Assigned at Date Recorded Female 07/03/2017 2:07 PM CDT documented as of this encounter Medications at Time of Discharge Medication Sig Dispensed Refills Start Date End Date petcfri-K9-pavc-copper- Take by mouth. 0 05/20/19 21 marlo [...] Neurology Kenji Zaldivar M.D. [address] [place] [address] documented as of this encounter Visit Diagnoses Not on filedocumented in this encounter Additional Health Concerns Infection Onset Date Last Indicated Resolved Time COVID19 07/19/2021 07/19/2021 08/08/2021 6:28 AM CDT documented as of this encounter Care Teams Manager Treasury Relationship Specialty Start Date End Date Aviva Laws, LENNOX, C.N.P., PCP - General Family Medicine 12/11/20 09/23/21 M.S.N. [address] [place] [address] documented as of this encounter
--- OUTSIDE RECORDS SUMMARY | 2021-11-03 07:01 | XMS_ITS | Encounter Summary ---
:1940 Author Organization [facility] Address [address] [place] [address] Care Team Providers Name Role Phone Aviva Laws APRN C.NChicoPChico, M.S.N. Primary Care Provider +1 [phone] Reason for Visit Reason Comments Outpatient Infusion Episode Based Medications (Routine) - Closed Specialty Diagnoses / Procedures Referred By Contact Refer red To Contact Diagnoses COVID-19 Infection [facility] Uriel Silva M.D., M.[facility] [address] [place] [address] [place] [address] Referral ID Status Reason Start Date Expiration Date Visits Requ ested Visits Authorized [id number] Closed 07/21/2021 07/21/2022 99 99 Encounter Details Date Type Department Care Team Description 07/22/2021 Infusion Department of Infusion [place] COVID-19 Infection (Primary Dx); Therapy in [place], , Lv Silva M.D., Ma lignant Neoplasm Of Pancreas Adenocarcinoma (HCC) [place] [facility] [address] [place] [phone] Social History Tobacco Use Types Packs/Day Years [...] Sign Reading Time Taken Comments Blood Pressure 144/75 07/22/2021 2:50 PM CDT Pulse 86 07/22/2021 2:50 PM CDT Temperature 36.3 ??C (97.3 ??F) 07/22/2021 2:50 PM CDT Respiratory Rate 16 07/22/2021 2:50 PM CDT Oxygen Saturation 92% 07/22/2021 2:50 PM CDT Inhaled Oxygen Concentration - - Weight - - Height - - Body Mass Index - - documented in this encounter Plan of Treatment Upcoming Encounters Date Type Specialty Care Team Description 11/19/2021 Clinical Communication Admitting/Central Scheduling 11/23/2021 Comprehensive Visit Neurology Kenji Zaldivar M.D. [address] [place] [phone] documented as of this encounter Visit Diagnoses Diagnosis COVID-19 Infection - Primary Malignant Neoplasm Of Pancreas Adenocarc inoma (HCC) documented in this encounter Administered Medications Inactive Administered Medications - up to 3 most recent administrations Medication Order MAR Action Action Date Dose Rate Site bebtelovimab injection 175 mg Given 07/22/2021 2:53 PM CDT 175 mg 175 mg, intravenous, Once, On Laila 07/22/21 at 1445, For 1 dose, Patient/caregiver factsheet: https://www.fda.gov/media/468969/d ownload Preparation: Remove vial from refrigerated storage and allow to equilibrate to room temperature for approximately 20 minutes before preparation. Do not expose to direct heat. Do not shake vial. Inspect the vial. Withdraw 2 mL from the vial into the disposable syringe. Discard any product remaining in the vial. This product is preservative-free and therefore, should be administered immediately. IV push over at least 30 seconds. Flush the IV set with 0.9% normal saline to ensure delivery of the required dose., Attestation: Under FDA EUA: Patient education has been provided and documented, and patient consent obtained, Criteria: Adults and Pediatrics (Pediatrics: >= 12 years and >=40 kg), Indication of use: Outpatient or observation patient: Mild to moderate COVID-19 treatment, AND meeting at least one of the following: Age >= 65 years heparin flush 500 Units Given 07/22/2021 4:10 PM CDT 500 Units 500 Units, intra-catheter, As needed, line care, Starting on Laila 07/22/21 at 1610, When no infusion to maintain patency: For IVAD accessed, not in use, and/or prior to hospital discharge, flush every 7 days after 0.9% preservative-free NaCL flush. For IVAD NOT accessed or used, flush every 4 weeks after 0.9% preservative-free NaCL flush. sodium chloride 0.9 % injection 10 mL Given 07/22/2021 4:10 PM CDT 10 mL 10 mL, intra-catheter, As needed, line care, Starting on Laila 07/22/21 at 1610, When IVAD Accessed and in Use: Flush prior to and following infusion, between multiple consecutive infusions, and prior to blood sampling. documented in this encounter Additional Health Concerns Infection Onset Date Last Indicated Resolved Time COVID19 07/19/2021 07/19/2021 08/08/2021 6:28 AM CDT documented as of this encounter Care Teams Qa Automation Developer Relationship Specialty Start Date End Date Aviva Laws APRN, C.N.P., PCP - General Family Medicine 12/11/20 09/23/21 M.S.N. [address] [place] [phone] documented as of this encounter
--- OUTSIDE RECORDS SUMMARY | 2021-11-03 07:01 | XMS_ITS | Encounter Summary ---
:1940 Author Organization [facility] Address [address] [place] [address] Care Team Providers Name Role Phone Aviva Laws APRN, C.N.P., M.S.N. Primary Care Provider [phone] [phone] Encounter Details Date Type Department Care Team Description 08/03/2021 Hospital Encounter Department of Radiation Vy Bills, Oncology in [facility] [address] [facility] [address] [place] [phone] Social History Tobacco Use Types Packs/Day Years [...] or relatives? How often do you attend jewish or More than 4 times per year 06/19/2021 yazdanism services? Do you belong to any clubs or Yes 06/19/2021 organizations such as jewish groups, unions, fraternal or athletic groups, or [...] Sig Dispensed Refills Start Date End Date gfxjxdo-F2-kdjd-copper- Take by mouth. 0 05/20/19 21 marlo [...] Neurology Kenji Zaldivar M.D. [address] [place] [address] documented as of this encounter Visit Diagnoses Not on filedocumented in this encounter Additional Health Concerns Infection Onset Date Last Indicated Resolved Time COVID19 07/19/2021 07/19/2021 08/08/2021 6:28 AM CDT documented as of this encounter Care Teams Brake Drum Molder Relationship Specialty Start Date End Date Aviva Laws, LENNOX, C.N.P., PCP - General Family Medicine 12/11/20 09/23/21 M.S.N. [address] [place] [address] documented as of this encounter
--- OUTSIDE RECORDS SUMMARY | 2021-11-03 07:01 | XMS_ITS | Encounter Summary ---
:1940 Author Organization [facility] Address [address] [place] [address] Care Team Providers Name Role Phone Veto Aviva Ruiz APRN, C.N.P., M.S.N. Primary Care Provider [phone] [phone] Reason for Visit Reason Comments Follow-up Encounter Details Date Type Department Care Team Description 07/26/2021 Clinical Communication Department of Radiation Christa Casey, Follow-up Oncology in [facility] [address] [facility] [address] [place] [phone] [phone] Social History Tobacco Use Types Packs/Day Years [...] or relatives? How often do you attend anabaptist or More than 4 times per year 06/19/2021 mandaeism services? Do you belong to any clubs or Yes 06/19/2021 organizations such as anabaptist groups, unions, fraternal or athletic groups, or [...] this encounter Miscellaneous Notes Telephone Encounter - Christa Casey R.N. - 07/26/2021 8:55 AM CDT Information Discussed I called patient to follow up. Patient reports that weekend went well. Temperature max over the weekend was 99.1 (last night). She notices slight general malaise and lingering nasal drip. Patient denies shortness of breath, sore throat, diarrhea, nausea, vomiting, smell or taste changes, cough or shaki ng chills. She continues to notice lack of appetite. She tries to take in smaller meals through out the day. She coughs up clear phlegm once a day. She did receive monoclonial antibody infusion on July 22, 2021. She has not started prescription for Reglan due to concern over possible side effects. She notes that her achy intermittent stomach ache has lessened some. PLAN I have updated our care team on patient's status today. We plan on having patient come in for radiation treatment at the end of the day today. Dr. Bills will meet with patient near treatment room today in management visit. Radiation Oncology Gunter can be contacted at anytime for any questions or concerns. Disposition/Recommendation: self-care - appropriate at this time, patient encouraged to call back with questions Information/Education: patient/caller able to teach back Caller agreeable to plan of care: yes The following references were used: nursing clinical judgement documented in this encounter Plan of Treatment Upcoming Encounters Date Type Specialty Care Team Description 11/19/2021 Clinical Communication Admitting/Central Scheduling 11/23/2021 Comprehensive Visit Neurology Kenji Zaldivar M.D. [address] [place] [address] documented as of this encounter Visit Diagnoses Not on filedocumented in this encounter Additional Health Concerns Infection Onset Date Last Indicated Resolved Time COVID19 07/19/2021 07/19/2021 08/08/2021 6:28 AM CDT documented as of this encounter Care Teams Cover Machine Operator Relationship Specialty Start Date End Date Aviva Laws APRN, C.N.P., PCP - General Family Medicine 12/11/20 09/23/21 M.S.N. [address] [place] [address] documented as of this encounter
--- OUTSIDE RECORDS SUMMARY | 2021-11-03 07:01 | XMS_ITS | Encounter Summary ---
:1940 Author Organization [facility] Address [address] [place] [address] Care Team Providers Name Role Phone Aviva Laws APRN, C.N.P., M.S.N. Primary Care Provider +1 [phone] Encounter Details Date Type Department Care Team Description 08/02/2021 Hospital Encounter Department of Radiation Vy Bills, Oncology in [facility] [address] [facility] [address] [place] [phone] Social History Tobacco Use Types Packs/Day Years [...] or relatives? How often do you attend judaism or More than 4 times per year 06/19/2021 advent services? Do you belong to any clubs or Yes 06/19/2021 organizations such as judaism groups, unions, fraternal or athletic groups, or [...] Sig Dispensed Refills Start Date End Date [id number]-copper- Take by mouth. 0 05/20/19 21 marlo [...] Neurology Kenji Zaldivar M.D. [address] [place] [address] documented as of this encounter Visit Diagnoses Not on filedocumented in this encounter Additional Health Concerns Infection Onset Date Last Indicated Resolved Time COVID19 07/19/2021 07/19/2021 08/08/2021 6:28 AM CDT documented as of this encounter Care Teams Gum Dipper Relationship Specialty Start Date End Date Aviva Laws, LENNOX, C.N.P., PCP - General Family Medicine 12/11/20 09/23/21 M.S.N. [address] [place] [address] documented as of this encounter
--- OUTSIDE RECORDS SUMMARY | 2021-11-03 07:01 | XMS_ITS | Encounter Summary ---
:1940 Author Organization [facility] Address [address] [place] [address] Care Team Providers Name Role Phone Veto Aviva Ruiz APRN C.N.P., M.S.N. Primary Care Provider [phone] [phone] Reason for Visit Reason Comments Med Refill Encounter Details Date Type Department Care Team Description 07/28/2021 Refill Department of Radiation Jerrica Gray M.D. Med Refill Oncology in [place], [address] [place] [phone] [address] [facility] [place] [address] [phone] Social History Tobacco Use Types Packs/Day Years [...] or relatives? How often do you attend hindu or More than 4 times per year 06/19/2021 voodoo services? Do you belong to any clubs or Yes 06/19/2021 organizations such as hindu groups, unions, fraternal or athletic groups, or [...] place to sleep or slept in a custodial (including now)? Education Answer Date Recorded What [...] Visit Neurology Kenji Zaldivar M.D. [address] [place] [address] documented as of this encounter Visit Diagnoses Not on filedocumented in this encounter Additional Health Concerns Infection Onset Date Last Indicated Resolved Time COVID19 07/19/2021 07/19/2021 08/08/2021 6:28 AM CDT documented as of this encounter Care Teams Pelt Grader Relationship Specialty Start Date End Date Aviva Laws, LENNOX, C.N.P., PCP - General Family Medicine 12/11/20 09/23/21 M.S.N. [address], [place] [address] documented as of this encounter
--- OUTSIDE RECORDS SUMMARY | 2021-11-03 07:01 | XMS_ITS | Encounter Summary ---
:1940 Author Organization [facility] Address [address] [place] [address] Care Team Providers Name Role Phone Aviva Laws APRN, C.N.P., M.S.N. Primary Care Provider [phone] [phone] Encounter Details Date Type Department Care Team Description 07/21/2021 Clinical Communication Department of Infusion Jeanine Webb, Therapy in [facility] [address] [place] [address] Social History Tobacco Use Types Packs/Day Years [...] More than 4 times per year 06/19/2021 rastafarian services? Do you belong to any clubs [...] place to sleep or slept in a intermediate (including now)? Education Answer Date Recorded What is the highest level of school you have Some college, n o degree 10/23/2020 completed or the highest degree you have received? Sex Assigned at Date Recorded Female 07/03/2017 2:07 PM CDT documented as of this encounter Miscellaneous Notes Addendum Note - Jeanine Webb, RChicoN. - 07/22/2021 8:58 AM CDT Addended by: JEANINE WEBB on: 07/22/2021 08:58 AM Modules accepted: Orders Telephone Encounter - Jeanine Webb, RChicoN. - 07/21/2021 5:32 PM CDT [facility] TELEPHONE COMMUNICATION NOTE Vice President Pharmacy: None The patient was called regarding a recent positive COVID-19 test. Based on an initial review of the patient's medical record, treatment may be appropriate for COVID-19. Patient Interest: The patient is interested in learning about medications and monitoring. COVID-19 Symptoms: The patient is having symptoms that started on 07/19. The symptoms are not severe. Severe symptoms may include new or increasing oxygen requirements, shortness of breath at rest, shortness of breath that limits walking short distances, chest pain (such as retrosternal or left sided chest pain, pain that radiates to the jaw or arm), and dizziness or lightheadedness that makes them unsteady or unable to stand or walk. Do you have new or increased oxygen requirement due to COVID 19? No. Are you or ? N/A Have you previously received treatment for COVID-19 in the last 90 days? No. Pre-Call Chart Review: Chart review was completed and indicates the patient is preliminarily eligible for Bebtelovimab Counseling Regarding Therapy for COVID-19 You may choose to accept or refuse any of the available treatments that we will review today. You may also stop treatment at any time. Your choice will not change your standard medical care. Regardless of your choice, you should continue to self-isolate and use infection control measures according to CDC guidelines (e.g., wear mask, isolate, social distance, avoid sharing personal items, and frequent handwashing). In addition, regardless of whether you accept any of the treatments we discuss today, if you developworsening symptoms of COVID-19, you should reach out to your primary care provider or [facility] for [facility]. Treatment Options Discussion Bebtelovimab Bebtelovimab is a monoclonal antibody infusion that is an investigational medicine that has been authorized by the FDA for Emergency Use for treatment of [id number] COVID-19 in patients who are COVID positive and at high risk for progression to severe COVID-19, including hospitalization or . Bebtelovimab is a laboratory made protein that mimics the immune system's ability to fight off harmful pathogens such as viruses. Bebtelovimab is effective against the variants and has been shown to reduce the risk for hospitalization by 85%. Your vital signs will be taken on the arrival for the infusion center. If you are found to be in need of oxygen due to COVID-19 then you will not be infused with MAB rather you will be referred to an urgent care or ED for evaluation of worsening disease. Monoclonal antibodies are given to you as a single dose by an IV injection over 30 seconds (Bebtelovimab). You will be observed for side effects for 1 hour after administration. The most reported side effects in clinical studies have been nausea, diarrhea, dizziness, headache, itching and vomiting. Serious reactions such as allergic reactions or infusion reactions have occurred but are uncommon. [facility] has infused over 22,000 patients with a monoclonal antibody infusion,and we have not seen any serious side effects. Because monoclonal antibody infusions are still being studied, it is possible that not all of the risks are known at this time. Serious and unexpected side effects may happen. The medication is provided to [facility] at no charge and there is no cost of the medication to you. Any associated costs with the infusion will be billed to your insurance company. [facility] does not wantcost to be a barrier to infusion. If you are uninsured or underinsured you will still be able to receive this medication free of cost. Patients who receive a monoclonal antibody infusion are still eligible for a COVID-19 vaccine, and only need to wait until they have completed their isolation to receive their next vaccine dose. This medication is not likely to interfere with any regular medications you may be taking. Given howthis medication helps your body, it is better to receive this medication as soon as possible if you elect this treatment option. If you don't feel better within 48 hours we ask that you contact the hospital braider operator at [phone] and be connected with the [facility] team doctor of the day for additional treatment options. Treatment Decision: The patient accepts treatment. IV Bebtelovimab: The patient consents to therapy. The IV therapy plan has been ordered per nurse protocol to the following [facility] infusion center: [facility] [place] Side Effects and Fact Sheet for Patients, Parents and Caregivers Tell your healthcare provider right away if you have any urgent side effects. For non-urgent side effects or side effects that bother you or do not go away please contact the care team coordinating your COVID care during business hours. This may be your primary care provider, your COVID care team or your remote monitoring nurse team, which ever is applicable. If you have symptoms of a severe allergic reaction, including difficulty breathing or swelling of the lips, tongue or throat, severe dizziness, lightheadedness or weakness,call 911 and go to the Emergency Department. If you have continued questions please reach out to the team coordinating your clinical care, [facility] COVID-19 focused team or your primary care provider's office. The Fact Sheet for Patients, Parents and Caregivers (https://www.fda.gov/media/048291/download) was provided via the online Portal and will be provided to patient/caregiver at the infusion therapy center or pharmacy. Remote Patient Monitoring: Does the patient have a qualifying MASS score? Yes. MASS Score is 3 or greater. Continue RPM screening. Does the patient have symptoms? Yes. Patient is day 0-5 from symptom onset. Continue RPM screening. Is the patient eligible for Remote Patient Monitoring? Yes. Patient is eligible for Remote Patient Monitoring. As part of this program, we would mail you equipment and ask you to check your oxygen levels, blood pressure and temperature 2-4 times per day. The equipment will automatically transmit the readings toa team of remote monitoring nurses for review. If there are any concerning readings or concerning trends, a nurse would reach out to check on you. In addition, you would be able to call the remote monitoring nurses 7 am - 9 pm 7 days a week (excluding holidays) with questions, concerns or change in your symptoms. Over the past year we have seen that patients who enroll in Remote Patient Monitoring are less likely to need the emergency department or hospital. In addition, when the hospital is needed, we are ableto get patients there before becoming critically ill. Are you interested in having me order this monitoring system for you? No COVID-19 Isolation Beginning of isolation (day 0) is considered the start of onset of symptoms. Isolate at home with minimal to no contact with other people living in your house until all the following are true: ?? It has been at least 5 days since your symptoms started. Or, if you have no symptoms, it has beenat least 5 days since your positive COVID-19 test. If you are immune compromised, isolate for at least 10 days. ?? You are fever free for at least 24 hours without the use of fever-reducing medications. Wear a mask everywhere you go for an additional 5 days. Continue to wear a mask in indoor spaces when community transmission is high. What should you tell your close contacts who are NOT UP TO DATE WITH VACCINATIONS? ?? Quarantine for 5 days after last contact. ?? After quarantine, wear a mask for 5 more days. Continue to wear a mask in indoor spaces when community transmission is high. ?? Get tested for COVID-19 five days after the close contact exposure. ?? If they develop symptoms, they need to quarantine and get tested for COVID-19. What should you tell your close contacts if they ARE UP TO DATE WITH VACCINATION? ?? Wear a mask for 10 days following the close contact exposure. ?? They do not need to quarantine if they do not have symptoms. ?? Get tested for COVID-19 five days after the close contact exposure. ?? If they develop symptoms, they need to quarantine and get tested for COVID-19. Defining Up to Date with Vaccinations Received a Booster dose as scheduled after completion of an mRNA vaccine series (Moderna or Pfizer) OR 2 months after a Gianfranco & Gianfranco vaccine. Thank you for your time today. The results of this call will be shared with members of your care team. Response to Education: patient/caller able to teach back Caller agreeable to plan of care: yes The following references were used: Nursing or Provider judgement, [facility] workflow, [facility] Protocols Jeanine Webb R.N. documented in this encounter Plan of Treatment Upcoming Encounters Date Type Specialty Care Team Description 11/19/2021 Clinical Communication Admitting/Central Scheduling 11/23/2021 Comprehensive Visit Neurology Kenji Zaldivar M.D. [address] [place] [address] documented as of this encounter Visit Diagnoses Diagnosis COVID-19 Infection - Primary documented in this encounter Additional Health Concerns Infection Onset Date Last Indicated Resolved Time COVID19 07/19/2021 07/19/2021 08/08/2021 6:28 AM CDT documented as of this encounter Care Teams Night Guard Relationship Specialty Start Date End Date Aviva Laws APRN, C.N.P., PCP - General Family Medicine 12/11/20 09/23/21 M.S.N. [address] [place] [address] documented as of this encounter
--- OUTSIDE RECORDS SUMMARY | 2021-11-03 07:01 | XMS_ITS | Encounter Summary ---
:1940 Author Organization [facility] Address [address] [place] [address] Care Team Providers Name Role Phone Aviva Laws APRN, C.NChicoP., M.S.N. Primary Care Provider +1 [phone] Encounter Details Date Type Department Care Team Description 07/19/2021 Clinical Communication Department of Jin Cash, Radiation Oncology [facility] [place] [address] [facility] [address] [place] [phone] [phone] Social History Tobacco Use Types Packs/Day Years [...] More than 4 times per year 06/19/2021 jainism services? Do you belong to any clubs [...] this encounter Miscellaneous Notes Telephone Encounter - Jin Cash M.D., M.S. - 07/19/2021 5:11 PM CDT Radiation Oncology 07/19/21 Azeb العراقي Phone Call: I spoke to the patient on the phone today. She took a COVID test this morning and tested positive after developing a stuffy nose and some more fatigue. Her had COVID last week. She otherwise isfeeling well, and her breathing is good. She continues to have a poor appetite and low energy. I discussed our recommendations to delay her radiation appointments and restart on 07/26/2021 given her already poor appetite and frailty. We discussed continuing radiation may place her at higher risk of toxicities and escalation of her COVID. I encouraged her to improve her fluid and food intake. She was agreeable with this plan. I have contact our scheduling team and her medical oncologist. Jin Cash M.D., M.S. documented in this encounter Plan of Treatment Upcoming Encounters Date Type Specialty Care Team Description 11/19/2021 Clinical Communication Admitting/Central Scheduling 11/23/2021 Comprehensive Visit Neurology Kenji Zaldivar M.D. [address] [place] [address] documented as of this encounter Visit Diagnoses Not on filedocumented in this encounter Care Teams Conventions Reservationist Relationship Specialty Start Date End Date Aviva Laws APRN, C.N.P., PCP - General Family Medicine 12/11/20 09/23/21 M.S.N. [address] [address] documented as of this encounter
--- OUTSIDE RECORDS SUMMARY | 2021-11-03 07:01 | XMS_ITS | Encounter Summary ---
:1940 Author Organization [facility] Address [address] [place] [address] Care Team Providers Name Role Phone Aviva Laws APRN, C.N.P., M.S.N. Primary Care Provider +1 [phone] Encounter Details Date Type Department Care Team Description 08/04/2021 Hospital Encounter Department of Radiation Vy Bills, Oncology in [facility] [address] [facility] [address] [place] [phone] Social History Tobacco Use Types Packs/Day Years [...] or relatives? How often do you attend mandaen or More than 4 times per year 06/19/2021 restoration services? Do you belong to any clubs or Yes 06/19/2021 organizations such as mandaen groups, unions, fraternal or athletic groups, or [...] Sig Dispensed Refills Start Date End Date [id number]-copper- Take by mouth. 0 05/20/19 21 marlo [...] Neurology Kenji Zaldivar M.D. [address] [place] [address] documented as of this encounter Visit Diagnoses Not on filedocumented in this encounter Additional Health Concerns Infection Onset Date Last Indicated Resolved Time COVID19 07/19/2021 07/19/2021 08/08/2021 6:28 AM CDT documented as of this encounter Care Teams Finisher Accordion Relationship Specialty Start Date End Date Aviva Laws, LENNOX, C.N.P., PCP - General Family Medicine 12/11/20 09/23/21 M.S.N. [address] [place] [address] documented as of this encounter
--- OUTSIDE RECORDS SUMMARY | 2021-11-03 07:01 | XMS_ITS | Encounter Summary ---
:1940 Author Organization [facility] Address [address] [place] [address] Care Team Providers Name Role Phone Aviva Laws APRN, C.N.P., M.S.N. Primary Care Provider +1 [phone] Encounter Details Date Type Department Care Team Description 07/21/2021 Documentation Department of Radiation Sue Andino, [facility] in [place], [address] [place] [address] [address] [facility] [address] [place] [address] [phone] Social History Tobacco Use Types Packs/Day Years [...] or relatives? How often do you attend evangelical or More than 4 times per year 06/19/2021 baptism services? Do you belong to any clubs or Yes 06/19/2021 organizations such as evangelical groups, unions, fraternal or athletic groups, or [...] PM CDT documented as of this encounter Progress Notes Ofelia Andino R.N. - 07/21/2021 10:43 AM CDT REASON FOR CALL Covid test ASSESSMENT Patient reports that she developed a fever on 07/19/2021 and then preformed a home Covid Antigen test. She tested positive for Covid on 07/19/2021. She reports symptoms of low grade fever Monday and Monday and general malaise. She denies fever today. She reports she is eating and drinking well. She denies shortness of breath or chest pain. She has discussed her symptoms with Dr. Garcia's team at [facility]. They have recommended that she holds chemo treatments and will reevaluate on Monday07/26/2021. PLAN 1. Continue to monitor symptoms and seek higher level of care as needed if you experience shortness of breath or chest pain or any other worrisome symptoms. 2. Radiation Oncology will call on Monday to reassess your symptoms and determine radiation treatment at the end of the day Monday07/26/2021. Disposition/Recommendation: recommended continue engagement in self-management activities. Information/Education: patient/caller able to teach back. Caller agreeable to plan of care: yes. The following references were used: nursing clinical judgement. [facility] Covid Algorithm documented in this encounter Miscellaneous Notes Result Encounter Note - Sri Calderon APRN, ALLIE, D.N.P. - 07/21/2021 2:36 PM CDT Your patient has tested positive for SARS-CoV-2, the virus that causes COVID-19. Every patient that tests positive receives initial guidance sent via an online letter, which is sent by mail or the patient portal depending on patient preferences. ACTION NEEDED: Please update the patient's problem list and medication list to ensure an accurate and timely evaluation for COVID-19 treatments, including various medications and Remote Patient Monitoring (RPM). If eligible for COVID-19 treatments or RPM, your patient will be contacted by a designated team of nurses to coordinate the care. For questions, contact the [facility] Team ([facility]): Pager: [phone] In basket: P [facility] COVID-19 POSITIVE Covid Care e-consult NOTE: At the time of testing, patients are instructed to obtain the result by calling the [facility] result line or by checking their online services account. documented in this encounter Plan of Treatment Upcoming Encounters Date Type Specialty Care Team Description 11/19/2021 Clinical Communication Admitting/Central Scheduling 11/23/2021 Comprehensive Visit Neurology Kenji Zaldivar M.D. [address] [place] [address] documented as of this encounter Procedures Procedure Name Priority Date/Time Associated Diagnosis Comme nts EXTM HOME SARS Routine 07/19/2021 8:00 AM Results for this CORONAVIRUS-2 CDT procedure are in (COVID-19) ANTIGEN, the resu lts V section. documented in this encounter Results (ABNORMAL) EXT Home SARS Coronavirus-2 (COVID-19) Antigen, Varies (07/19/2021 8:00 AM CDT) [facility] Method Time Signature EXT Home Presumptive Presumptive TESTING SARS-CoV-2 Positive (A) Negative REFERANCE Antigen LAB LOCATION NOT INTERFACED Specimen (Source) Anatomical Collection Method Collection Time Re ceived Time Location / / Volume Laterality Swab 07/19/2021 8:00 AM CDT Historical Provider LAB MICROBIOLOGY - GENERAL O RDERABLES Performing Organization Address City/State/ZIP Code Phon e Number TESTING REFERANCE LAB LOCATION NOT INTERFACED documented in this encounter Visit Diagnoses Not on filedocumented in this encounter Additional Health Concerns Infection Onset Date Last Indicated Resolved Time COVID19 07/19/2021 07/19/2021 08/08/2021 6:28 AM CDT documented as of this encounter Care Teams District Court Justice Relationship Specialty Start Date End Date Aviva Laws APRN, C.N.P., PCP - General Family Medicine 12/11/20 09/23/21 M.S.N. [address], [place] [address] documented as of this encounter
--- OUTSIDE RECORDS SUMMARY | 2021-11-03 07:02 | XMS_ITS | Encounter Summary ---
:1940 Author Organization [facility] Address [address] [place] [address] Care Team Providers Name Role Phone Aviva Laws APRN, C.N.P., M.S.N. Primary Care Provider +1 [phone] Encounter Details Date Type Department Care Team Description 07/06/2021 Hospital Encounter Department of Radiation Vy Bills, Oncology in [facility] [address] [facility] [address] [place] [phone] [phone] Social History Tobacco Use Types Packs/Day Years [...] or relatives? How often do you attend spiritism or More than 4 times per year 06/19/2021 christianity services? Do you belong to any clubs or Yes 06/19/2021 organizations such as spiritism groups, unions, fraternal or athletic groups, or [...] Sig Dispensed Refills Start Date End Date fxrylpo-H6-jjne-copper-m Take by mouth. 0 021 angan (Citracal-D3 Taking 3-4 daily Maximum Plus) 325 [...] minutes prior to port access). loperamide (IMODIUM A-D) TAKE 2 CAPS AT 48 capsule 1 021 2 mg capsuleIndications: ONSET OF DIARRHEA, Malignant Neoplasm Of THEN 1 CAP EVERY Pancreas (HCC) 2HRS UNTIL DIARRHEA FREE FOR 12HRS. MAY TAKE 2 CAPS EVERY 4HRS AT NIGHT magnesium oxide (MAG-OX) Take 400 mg by [...] Pain/Nonacute Pain. calcitRIOL (ROCALTROL) Take 2 capsules 180 capsule 3 021 08/12/2021 0.25 mcg capsule (0.5 mcg total) by mouth daily. capecitabine (XELODA) Take 300 mg by 0 09/16/2021 150 mg tablet mouth 2 (two) times a day. Total dose 1300 mg po bid, Mon-Fri with radiation.Take within 30 minutes after a meal. Swallow whole with water. Do not crush or cut. capecitabine (XELODA) Take 2 tablets by 0 09/16/2021 500 mg tablet mouth 2 (two) times a day. Take within 30 minutes after a meal. Swallow whole with water. Do not crush or cut. dexAMETHasone (DECADRON) TAKE 2 TABLETS BY 12 tablet 1 11/2509/16/2021 4 mg tabletIndications: MOUTH DAILY. 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 (HCC) diphenoxylate-atropine Take 1 tablet by 120 tablet 2 021 09/24/2021 (LOMOTIL) 2.5-0.025 mg mouth 4 (four) per tablet times a day. tkxkis-mzfeaftb-teiwypy Take 2 capsules by 360 capsule 3 07/27/2021 (CREON) mouth 3 (three) 24,000-76,000-120,000 times a day with Unit per DR capsule meals. lisinopriL Take 20 mg by 0 04/10/2020 09/24/2021 (PRINIVIL,ZESTRIL) 20 mg mouth. tablet LORazepam (ATIVAN) 0.5 Take 1 tablet (0.5 30 tablet 3 06/0709/16/2021 mg tabletIndications: mg total) by mouth Malignant Neoplasm Of every 8 (eight) Pancreas Adenocarcinoma hours as needed (HCC) (nausea, vomiting) for up to 30 doses. If ineffective, may repeat once after 30 minutes. NON Estriol 0.3% 30 g 11 07/03/2017 09/16/2021 FORMULARYIndications: Vaginal Cream, Atrophy Vagina Due To compounded. 1 gram Estrogen Deficiency vaginally nightly for 7 days, then 3 nights each week. Disp. 30 g, 11 refills prochlorperazine Take 1 tablet (10 30 tablet 3 06/07/2020 0 07/13/2021 (COMPAZINE) 10 mg mg total) by mouth tabletIndications: every 6 (six) hours Malignant Neoplasm Of as needed for Pancreas Adenocarcinoma nausea or vomiting. (HCC) documented as of this encounter Plan of Treatment Upcoming Encounters Date Type Specialty Care Team Description 11/19/2021 Clinical Communication Admitting/Central Scheduling 11/23/2021 Comprehensive Visit Neurology Kenji Zaldivar M.D. [address] [place] [address] documented as of this encounter Visit Diagnoses Not on filedocumented in this encounter Care Teams Senior Software Project Manager Relationship Specialty Start Date End Date Aviva Laws APRN, C.N.P., PCP - General Family Medicine 12/11/20 09/23/21 M.S.N. [address] [place] [address] documented as of this encounter
--- OUTSIDE RECORDS SUMMARY | 2021-11-03 07:02 | XMS_ITS | Encounter Summary ---
:1940 Author Organization [facility] Address [address] [place] [address] Care Team Providers Name Role Phone Aviva Laws APRN, C.N.P., M.S.N. Primary Care Provider +1 [phone] Encounter Details Date Type Department Care Team Description 07/07/2021 Hospital Encounter Department of Radiation Vy Bills, Oncology in [facility] [address] [facility] [address] [place] [phone] Social History Tobacco Use Types Packs/Day Years [...] or relatives? How often do you attend voodoo or More than 4 times per year 06/19/2021 sabianism services? Do you belong to any clubs or Yes 06/19/2021 organizations such as voodoo groups, unions, fraternal or athletic groups, or [...] Sig Dispensed Refills Start Date End Date vktfykh-F2-afqt-copper-m Take by mouth. 0 021 angan (Citracal-D3 [...] 4 (four) per tablet times a day. ffarev-obfxdvnj-cghfkcu Take 2 capsules by 360 capsule 3 [...] Visit Neurology Kenji Zaldivar M.D. [address] [place] [address] documented as of this encounter Visit Diagnoses Not on filedocumented in this encounter Care Teams Process Server Relationship Specialty Start Date End Date Aviva Laws APRN, C.N.P., PCP - General Family Medicine 12/11/20 09/23/21 M.S.N. [address] [place] [address] documented as of this encounter
--- OUTSIDE RECORDS SUMMARY | 2021-11-03 07:02 | XMS_ITS | Encounter Summary ---
:1940 Author Organization [facility] Address [address] [place] [address] Care Team Providers Name Role Phone Aviva Laws APRN, C.N.P., M.S.N. Primary Care Provider +1 [phone] Encounter Details Date Type Department Care Team Description 07/12/2021 Hospital Encounter Department of Radiation Vy Bills, Oncology in [facility] [address] [facility] [address] [place] [phone] Social History Tobacco Use Types Packs/Day Years [...] or relatives? How often do you attend temple or More than 4 times per year 06/19/2021 adventist services? Do you belong to any clubs or Yes 06/19/2021 organizations such as temple groups, unions, fraternal or athletic groups, or [...] Sig Dispensed Refills Start Date End Date xtrwrzj-T2-bnge-copper-m Take by mouth. 0 021 angan (Citracal-D3 [...] 4 (four) per tablet times a day. ygqhkn-baarjaev-fqnjncb Take 2 capsules by 360 capsule 3 [...] Visit Neurology Kenji Zaldivar M.D. [address] [place] [address] documented as of this encounter Visit Diagnoses Not on filedocumented in this encounter Care Teams Instructor Ground Services Relationship Specialty Start Date End Date Aviva Laws APRN, C.N.P., PCP - General Family Medicine 12/11/20 09/23/21 M.S.N. [address] [place] [address] documented as of this encounter
--- OUTSIDE RECORDS SUMMARY | 2021-11-03 07:02 | XMS_ITS | Encounter Summary ---
:1940 Author Organization [facility] Address [address] [place] [address] Care Team Providers Name Role Phone Aviva Laws APRN, C.N.P., M.S.N. Primary Care Provider +1 [phone] Encounter Details Date Type Department Care Team Description 07/13/2021 Hospital Encounter Department of Radiation Vy Bills, Oncology in [facility] [address] [facility] [address] [place] [phone] Social History Tobacco Use Types Packs/Day Years [...] or relatives? How often do you attend adventism or More than 4 times per year 06/19/2021 gnosticist services? Do you belong to any clubs or Yes 06/19/2021 organizations such as adventism groups, unions, fraternal or athletic groups, or [...] place to sleep or slept in a nursing home (including now)? Education Answer Date Recorded What is the highest level of school you have Some college, n o degree 10/23/2020 completed or the highest degree you have received? Sex Assigned at Date Recorded Female 07/03/2017 2:07 PM CDT documented as of this encounter Medications at Time of Discharge Medication Sig Dispensed Refills Start Date End Date nplqwqy-M0-sntn-copper- Take by mouth. 0 05/20/19 21 marlo [...] 4 (four) times per tablet a day. cynsyk-vdbsdcjr-ajbenfh Take 2 capsules by 360 capsule 3 [...] once after 30 minutes. NON Estriol 0.3% Vaginal 30 g 11 07/03/2017/05/2021 FORMULARYIndications: Cream, compounded. 1 Atrophy Vagina Due To gram vaginally Estrogen Deficiency nightly for 7 days, then 3 nights each week. Disp. 30 g, 11 refills documented as of this encounter Plan of Treatment Upcoming Encounters Date Type Specialty Care Team Description 11/19/2021 Clinical Communication Admitting/Central Scheduling 11/23/2021 Comprehensive Visit Neurology Kenji Zaldivar M.D. [address] [place] [address] documented as of this encounter Visit Diagnoses Not on filedocumented in this encounter Care Teams Contour Band Saw Operator Vertical Relationship Specialty Start Date End Date Aviva Laws APRN, C.N.P., PCP - General Family Medicine 12/11/20 09/23/21 M.S.N. [address] [place] [address] documented as of this encounter
--- OUTSIDE RECORDS SUMMARY | 2021-11-03 07:02 | XMS_ITS | Encounter Summary ---
:1940 Author Organization [facility] Address [address] [place] [address] Care Team Providers Name Role Phone Aviva Laws APRN C.N.P., M.S.N. Primary Care Provider +1 -[phone] Reason for Visit Radiation Therapy (Routine) - Closed Specialty Diagnoses / Procedures Referred By Contact Refer red To Contact Diagnoses Malignant Neoplasm Of Pancreas Adenocarcinoma (HCC) Yung Bills M.D. [facility] Procedures Initial Rad Onc Treatment Planning CT Simulation [address] [place] [phone] Referral ID Status Reason Start Date Expiration Date Visits Requ ested Visits Authorized [id number] Closed 06/22/2021 06/22/2022 1 1 Encounter Details Date Type Department Care Team Description 06/28/2021 - Hospital Encounter Department of Ramón Bills M.D. [address] [place] [phone] Malignant Neoplasm Of 07/07/2021 Radiation Oncology Christa Casey R.N. [address] [place] [phone] Pancreas in [place], [facility] a (HCC) [place] (Primary Dx) [address] [place] [address] Social History Tobacco Use Types [...] or relatives? How often do you attend moravian or More than 4 times per year 06/19/2021 christianity services? Do you belong to any clubs or Yes 06/19/2021 organizations such as moravian groups, unions, fraternal or athletic groups, or [...] Pressure - - Pulse - - Temperature - - Respiratory Rate - - Oxygen Saturation - - Inhaled Oxygen Concentration - - Weight 49.4 kg (108 lb 14.5 oz) 06/28/2021 2:42 PM CDT Height - - Body Mass Index 17.91 01/26/2021 1:18 PM CDT documented in this encounter Medications at Time of Discharge Medication Sig Dispensed Refills Start Date End Date byhspmo-Y5-ekda-copper-m Take by mouth. 0 021 angan (Citracal-D3 [...] 4 (four) per tablet times a day. dsglxf-egetfyqn-xejoldy Take 2 capsules by 360 capsule 3 [...] vomiting. (HCC) documented as of this encounter Progress Notes Christa Casey R.N. - 06/28/2021 2:00 PM CDT Has patient received IV contrast in the past? Yes History of adverse reaction to the contrast? no History of heart problems (CHF)? No History of kidney problems (current or history of dialysis, single kidney, kidney transplant)? no History of asthma? No Current inhaler use? no Lung assessment: slight diminished History of diabetes? No Taking Metformin? no If yes, written instructions given: Instructions for taking metformin after an injection of iodinated contrast material, [id number] Lab Results Component Value Date CREATININE 0.81 01/20/2021 Central Line: Yes Line Type: IVAD Power Injectable: Yes Power Injectable Identifiers Used: ID Card, Ibrahim Chain, or bracelet and [place] or Outside medical record (Date 06/14/20) Tip Placement Verified: Yes Tip Placement Verified: No Tip Placement Location: right atrium Verified Date: Dec 15, 2020 Blood Return Verified: Yes Procedural pause conducted by RN and RTT staff to verify: correct patient identity, correct IV contrast protocol and delay time Patient tolerated the procedure well. Discharge instructions were given. Bottle of water provided to patient documented in this encounter Plan of Treatment Upcoming Encounters Date Type Specialty Care Team Description 11/19/2021 Clinical Communication Admitting/Central Scheduling 11/23/2021 Comprehensive Visit Neurology Kenji Zaldivar M.D. [address] [place] [phone] documented as of this encounter Procedures Procedure Name Priority Date/Time Associated Comments Diagnosis CREATININE WITH Routine 06/14/2021 7:30 AM Result s for this EGFR, S/P CDT procedure are i n the results section. documented in this encounter Results Creatinine with Estimated GFR (06/14/2021 7:30 AM CDT) P athologist Signature EXT Creatinine 0.6 0.58 - [place] 1.05 mg/dL [facility] Specimen (Source) Anatomical Collection Method Collection Time Re ceived Time Location / / Volume Laterality Blood (Blood, 06/14/2021 7:30 AM Venous) CDT Narrative This result has an attachment that is no t available. Yung Bills M.D. LAB BLOOD ADD-ON Performing Organization Address City/State/ZIP Code Phon e Number [facility] [address] [place] [address] documented in this encounter Visit Diagnoses Diagnosis Malignant Neoplasm Of Pancreas Adenocarc inoma (HCC) - Primary documented in this encounter Administered Medications Inactive Administered Medications - up to 3 most recent administrations Medication Order MAR Action Action Date Dose Rate Site heparin flush 500 Units Given 06/28/2021 4:06 PM CDT 500 Units 500 Units, intra-catheter, During hospitalization, line care, Prior to discharge, Starting on Mon06/30/21 at 1654, For 1 dose, Implanted Vascular Access Device (IVAD) Venous Non-Valved: Following saline flush prior to discharge. iohexoL 300 mg iodine/mL solution 100 mL Given 06/28/2021 3:55 P M CDT 100 mL (OMNIPAQUE) 100 mL, intravenous, Once in imaging, contrast, Starting on Mon06/30/21 at 1654, For 1 dose NaCl 0.9 % bolus 50 mL New Bag 06/28/2021 4:00 PM CDT 50 mL 600 mL/hr 50 mL, intravenous, at 600 mL/hr, Administer over 5 Minutes, Once, On Mon06/30/21 at 1700, For 1 dose sodium chloride 0.9 % injection 10 mL Given 06/28/2021 4:05 PM CDT 10 mL 10 mL, intravenous, As needed, line care, Implanted Vascular Access Device (IVAD) Venous Non-Valved, Starting on Mon06/30/21 at 1654, Prior to and following infusion, between multiple consecutive infusions, and prior to blood sampling, Given 06/28/2021 3:50 PM CDT 10 mL documented in this encounter Care Teams Corporate Communications Associate Relationship Specialty Start Date End Date Aviva Laws APRN, C.N.P., PCP - General Family Medicine 12/11/20 09/23/21 M.S.N. [address] [place] [address] documented as of this encounter
--- OUTSIDE RECORDS SUMMARY | 2021-11-03 07:02 | XMS_ITS | Encounter Summary ---
:1940 Author Organization [facility] Address [address] [place] [address] Care Team Providers Name Role Phone Aviva Laws APRN, C.N.P., M.S.N. Primary Care Provider +1 -[phone] Encounter Details Date Type Department Care Team Description 07/14/2021 Hospital Encounter Department of Radiation Vy Bills, Oncology in [facility] [address] [facility] [address] [place] [phone] Social History Tobacco Use Types Packs/Day Years [...] or relatives? How often do you attend sikhism or More than 4 times per year 06/19/2021 denominational services? Do you belong to any clubs or Yes 06/19/2021 organizations such as sikhism groups, unions, fraternal or athletic groups, or [...] Sig Dispensed Refills Start Date End Date jbkbcda-U9-ouix-copper- Take by mouth. 0 05/20/19 21 marlo [...] 4 (four) times per tablet a day. vepase-sdxshomy-zkdbxod Take 2 capsules by 360 capsule 3 [...] Visit Neurology Kenji Zaldivar M.D. [address] [place] [address] documented as of this encounter Visit Diagnoses Not on filedocumented in this encounter Care Teams Plant Operations Worker Relationship Specialty Start Date End Date Aviva Laws APRN, C.N.P., PCP - General Family Medicine 12/11/20 09/23/21 M.S.N. [address] [place] [address] documented as of this encounter
--- OUTSIDE RECORDS SUMMARY | 2021-11-03 07:02 | XMS_ITS | Encounter Summary ---
:1940 Author Organization [facility] Address [address] [place] [address] Care Team Providers Name Role Phone Aviva Laws APRN, C.N.P., M.S.N. Primary Care Provider +1 [phone] Encounter Details Date Type Department Care Team Description 07/05/2021 Hospital Encounter Department of Radiation Vy Bilsl, Oncology in [facility] [address] [facility] [address] [place] [phone] Social History Tobacco Use Types Packs/Day Years [...] More than 4 times per year 06/19/2021 protestant services? Do you belong to any clubs [...] Sig Dispensed Refills Start Date End Date jjvvqam-A5-gphf-copper-m Take by mouth. 0 021 angan (Citracal-D3 [...] 4 (four) per tablet times a day. jugkyt-zfzvfxcf-wkzqvqg Take 2 capsules by 360 capsule 3 [...] Visit Neurology Kenji Zaldivar M.D. [address] [place] [address] documented as of this encounter Visit Diagnoses Not on filedocumented in this encounter Care Teams Tire Wrapper Relationship Specialty Start Date End Date Aviva Laws APRN, C.N.P., PCP - General Family Medicine 12/11/20 09/23/21 M.S.N. [address] [place] [address] documented as of this encounter
--- OUTSIDE RECORDS SUMMARY | 2021-11-03 07:02 | XMS_ITS | Encounter Summary ---
:1940 Author Organization [facility] Address [address] [place] [address] Care Team Providers Name Role Phone Aviva Laws APRN, C.N.P., M.S.N. Primary Care Provider +1 -[phone] Encounter Details Date Type Department Care Team Description 07/15/2021 Hospital Encounter Department of Radiation Vy Bills, Oncology in [facility] [address] [facility] [address] [place] [phone] Social History Tobacco Use Types Packs/Day Years [...] or relatives? How often do you attend episcopalian or More than 4 times per year 06/19/2021 gnosticism services? Do you belong to any clubs or Yes 06/19/2021 organizations such as episcopalian groups, unions, fraternal or athletic groups, or [...] Sig Dispensed Refills Start Date End Date tfybazr-G2-egws-copper- Take by mouth. 0 05/20/19 21 marlo [...] 4 (four) times per tablet a day. rdzmih-euxynnxj-joeczgo Take 2 capsules by 360 capsule 3 [...] Visit Neurology Kenji Zaldivar M.D. [address] [place] [address] documented as of this encounter Visit Diagnoses Not on filedocumented in this encounter Care Teams Purchasing Expeditor Relationship Specialty Start Date End Date Aviva Laws APRN, C.N.P., PCP - General Family Medicine 12/11/20 09/23/21 M.S.N. [address] [place] [address] documented as of this encounter
--- OUTSIDE RECORDS SUMMARY | 2021-11-03 07:02 | XMS_ITS | Encounter Summary ---
:1940 Author Organization [facility] Address [address] [place] [address] Care Team Providers Name Role Phone Aviva Laws APRN C.N.P., M.S.N. Primary Care Provider +1 [phone] Reason for Referral Outpatient (Routine) - Authorized Specialty Diagnoses / Procedures Referred By Contact Refer red To Contact Radiation Oncology Yung Bills M .D. [facility] [address] [address] Referral ID Status Reason Start Date Expiration Date Visits V isits Requested Authorized [id number] Authorized 06/22/2021 06/22/2022 10 10 Reason for Visit Outpatient (Routine) - Authorized Specialty Diagnoses / Procedures Referred By Contact Refer red To Contact Radiation Oncology [facility]. [facility] [address] [address] Referral ID Status Reason Start Date Expiration Date Visits V isits Requested Authorized [id number] Authorized 06/22/2021 06/22/2022 10 10 Encounter Details Date Type Department Care Team Description 07/14/2021 - Hospital Encounter Department of Ramón Bills M.D. [address] [place] [phone] Malignant Neoplasm Of 07/16/2021 Radiation Oncology Christa Casey R.N. [address] [place] [phone] Pancreas in [facility] [place] (Primary Dx) [address] [place] [address] Social History Tobacco Use Types Packs/Day Years [...] More than 4 times per year 06/19/2021 jewish services? Do you belong to any clubs [...] - Inhaled Oxygen Concentration - - Weight 49.2 kg (108 lb 7.5 oz) 07/14/2021 2:18 PM CDT Height - - Body Mass Index 17.83 01/26/2021 1:18 PM CDT documented in this encounter Medications at Time of Discharge Medication Sig Dispensed Refills Start Date End Date jafklpr-V5-eyqw-copper- Take by mouth. 0 05/20/19 21 marlo [...] 4 (four) times per tablet a day. fmegil-upztfdyn-vbesuhm Take 2 capsules by 360 capsule 3 [...] Neurology Kenji Zaldivar M.D. [address] [place] [phone] Scheduled Referrals Name Type Priority Associated Order Schedule Diagnoses Radiation Oncology Outpatient Referral Routine On ce for 1 nurse visit Occurrences sta rting (clinic) 07/14/2021 unti l 07/14/2021 documented as of this encounter Procedures Procedure Name Priority Date/Time Associated Comments Diagnosis CREATININE WITH Routine 07/12/2021 12:30 PM Resul ts for this EGFR, S/P CDT procedure are i n the results section. documented in this encounter Results Creatinine with Estimated GFR (07/12/2021 12:30 PM CDT) P athologist Signature EXT Creatinine 0.5 mg/dL [facility] Specimen (Source) Anatomical Collection Method Collection Time Re ceived Time Location / / Volume Laterality Blood (Blood, 07/12/2021 12:30 Venous) PM CDT Narrative This result has an attachment that is no t available. Historical Provider LAB BLOOD ADD-ON Performing Organization Address City/State/ZIP Code Phon e Number [facility] [address] [place] [address] documented in this encounter Visit Diagnoses Diagnosis Malignant Neoplasm Of Pancreas Adenocarc inoma (HCC) - Primary documented in this encounter Administered Medications Inactive Administered Medications - up to 3 most recent administrations Medication Order MAR Action Action Date Dose Rate Site heparin flush 500 Units Given 07/14/2021 2:56 PM CDT 500 Units 500 Units, intra-catheter, During hospitalization, line care, Prior to discharge, Starting on Mon07/14/21 at 1419, For 1 dose, Implanted Vascular Access Device (IVAD) Venous Non-Valved: Following saline flush prior to discharge. iohexoL 300 mg iodine/mL solution 100 mL Given 07/14/2021 2:45 P M CDT 100 mL (OMNIPAQUE) 100 mL, intravenous, Once in imaging, contrast, Starting on Laila 07/15/21 at 1219, For 1 dose NaCl 0.9 % bolus 50 mL New Bag 07/14/2021 2:47 PM CDT 50 mL 600 mL/hr 50 mL, intravenous, at 600 mL/hr, Administer over 5 Minutes, Once, On Laila 07/15/21 at 1230, For 1 dose sodium chloride 0.9 % injection 10 mL Given 07/14/2021 2:55 PM CDT 10 mL 10 mL, intravenous, As needed, line care, Implanted Vascular Access Device (IVAD) Venous Non-Valved, Starting on Mon07/14/21 at 1419, Prior to and following infusion, between multiple consecutive infusions, and prior to blood sampling, Given 07/14/2021 2:40 PM CDT 10 mL documented in this encounter Care Teams Inclusion Intern Relationship Specialty Start Date End Date Aviva Laws APRN, C.N.P., PCP - General Family Medicine 12/11/20 09/23/21 M.S.N. [address] [address] [phone] documented as of this encounter
--- OUTSIDE RECORDS SUMMARY | 2021-11-03 07:02 | XMS_ITS | Encounter Summary ---
:1940 Author Organization [facility] Address [address] [place] [address] Care Team Providers Name Role Phone Aviva Laws APRN C.N.P., M.S.N. Primary Care Provider [phone] [phone] Reason for Referral Radiation Therapy (Routine) - Closed Specialty Diagnoses / Procedures Referred By Contact Refer red To Contact Diagnoses Malignant Neoplasm Of Pancreas Adenocarcinoma (HCC) Yung Bills M.D. [facility] Procedures Verification/Re-Sim Verification/Re-Sim [address] [place] [phone] Referral ID Status Reason Start Date Expiration Date Visits Requ ested Visits Authorized [id number] Closed 07/09/2021 07/09/2022 1 1 Encounter Details Date Type Department Care Team Description 07/09/2021 Hospital Encounter Department of Vi Bills Neoplasm Of Radiation Oncology Yung Phillips M.D. Pancreas Adenocarcinoma in [place], [address] [place] [address] (HCC) (Primary Dx) [place], [place] [address] [facility] [address] [place], [place] [phone] (Work) [phone] Social History Tobacco Use Types Packs/Day Years [...] More than 4 times per year 06/19/2021 sikh services? Do you belong to any clubs or Yes 06/19/2021 organizations such as nondenominational groups, unions, frabright box or athletic groups, or school groups? How [...] Sig Dispensed Refills Start Date End Date tdimkfd-T0-whxy-copper-m Take by mouth. 0 021 angan (Citracal-D3 [...] 4 (four) per tablet times a day. ncrxzm-ymudbxil-yxyvgzr Take 2 capsules by 360 capsule 3 [...] Comprehensive Visit Neurology Kenji Zaldivar M.D. [address] [place] [address] documented as of this encounter Results Verification/Re-Sim (07/14/2021 3:12 PM CDT) Specimen (Source) Anatomical Location Collection Method / Collectio n Time Received Time / Laterality Volume Narrative AYSE WALTER - 07/14/2021 3:12 PM CDT Christine Chau, SPIKE ? 07/14/2021 ??3:13 PM Verification/Re-Sim Date/Time: 07/14/2021 3:12 PM Performed by: Yung Bills M.D. Authorized by: Yung Bills M.D. Yung Bills M.D. RADIATION ONCOLOGY ORDERABLE S Performing Organization Address City/State/ZIP Code Phon e Number [facility] documented in this encounter Visit Diagnoses Diagnosis Malignant Neoplasm Of Pancreas Adenocarc inoma (HCC) - Primary Malignant Neoplasm Of Pancreas Adenocarc inoma (HCC) documented in this encounter Care Teams Substation Electrician Relationship Specialty Start Date End Date Aviva Laws APRN, C.N.P., PCP - General Family Medicine 12/11/20 09/23/21 M.S.N. [address] [phone] documented as of this encounter
--- OUTSIDE RECORDS SUMMARY | 2021-11-03 07:02 | XMS_ITS | Encounter Summary ---
:1940 Author Organization [facility] Address [address] [place] [address] Care Team Providers Name Role Phone Aviva Laws APRN C.NChicoP., M.S.N. Primary Care Provider +1 [phone] Reason for Referral Radiation Therapy (Routine) - Authorized Specialty Diagnoses / Procedures Referred By Contact Refer red To Contact Diagnoses Malignant Neoplasm Of Pancreas Adenocarcinoma (HCC) Yung Bills M.D. [facility] Procedures Management Visit [address] [place] [phone] Referral ID Status Reason Start Date Expiration Date Visits V isits Requested Authorized [id number] Authorized 06/22/2021 06/22/2022 10 10 Reason for Visit Radiation Therapy (Routine) - Authorized Specialty Diagnoses / Procedures Referred By Contact Refer red To Contact Diagnoses Malignant Neoplasm Of Pancreas Adenocarcinoma (HCC) Yung Bills M.D. [facility] Procedures Management Visit [address] [place] [phone] Referral ID Status Reason Start Date Expiration Date Visits V isits Requested Authorized [id number] Authorized 06/22/2021 06/22/2022 10 10 Encounter Details Date Type Department Care Team Description 07/06/2021 Hospital Encounter Department of Vi Bills Neoplasm Of Radiation Oncology Yung Phillips M.D. Pancreas Adenocarcinoma in [place], [address] [place] (HCC) [place], [place] [address] [facility] [address] [place], [place] [phone] (Work) [phone] Social History Tobacco Use Types Packs/Day Years [...] or relatives? How often do you attend yarsani or More than 4 times per year 06/19/2021 jehovah's witness services? Do you belong to any clubs or Yes 06/19/2021 organizations such as yarsani groups, unions, fraternal or athletic groups, or [...] Sign Reading Time Taken Comments Blood Pressure 135/75 07/06/2021 12:41 PM CDT Pulse 87 07/06/2021 12:41 PM CDT Temperature 36.1 ??C (97 ??F) 07/06/2021 12:41 PM CDT Respiratory Rate - - Oxygen Saturation - - Inhaled Oxygen Concentration - - Weight 50 kg (110 lb 3.7 oz) 07/06/2021 12:41 PM CDT Height - - Body Mass Index 18.12 01/26/2021 1:18 PM CDT documented in this encounter Medications at Time of Discharge Medication Sig Dispensed Refills Start Date End Date ayuxxgk-R8-gaxo-copper-m Take by mouth. 0 021 angan (Citracal-D3 [...] 4 (four) per tablet times a day. ahsyua-joudatfi-mkbrfax Take 2 capsules by 360 capsule 3 [...] encounter Progress Notes Yung Bills M.D. - 07/06/2021 1:00 PM CDT SUBJECTIVE REASON FOR VISIT Evaluation for side effects while receiving radiation treatment for 1. Malignant Neoplasm Of Pancreas Adenocarcinoma (HCC) SUPERVISED BY: Yung Bills M.D. ([id number]) HISTORY OF PRESENT ILLNESS Azeb العراقي is a 81 y.o. 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 She is now undergoing radiotherapy with concurrent oral capecitabine. Chemotherapy is being managed by Dr. Garcia at [facility]. Treatment Course: 1xPancreas Plan ID Fractions Dose / Fraction (cGy) Dose Treated (cGy) Dose Planned (cGy) First Treatment Last Treatment Elapsed Days [id number] [phone] 07/05/2021 07/06/2021 1 Course Summary 07/05/2021 07/06/2021 1 The patient was seen and examined today with Dr. Bills. The patient reports doing well overall. She denies diarrhea, fevers, chills, nausea, vomiting or bleeding. She takes Gas-X on occasion for bloating. PATIENT REPORTED SYMPTOM SCREEN FATIGUE (Scale: 0 = no fatigue; 10 = worst fatigue you can imagine): 5 PAIN (Scale: 0 = no pain; 10 = worst pain you can imagine): 6 OVERALL QUALITY OF LIFE (Scale: 0 = as bad as can be; 10 = as good as can be): 6 OBJECTIVE BP 135/75 (BP Location: Right arm, Patient Position: Sitting, Cuff Size: Regular) Pulse 87 Temp 36.1 ??C (Temporal) Wt 50 kg BMI 18.12 kg/m?? PHYSICAL EXAM General: Alert and oriented in no apparent distress. ASSESSMENT / PLAN #1??Stage III (cT4, cN1, cM0)??adenocarcinoma of the pancreatic head #2 Twenty four cycles of FOLFIRINOX completed June 16, 2021 #3 Concurrent chemoradiotherapy initiated on July 05, 2021; anticipated completion on August 06, 2021 #4 Pruritic maculopapular rash on the face, preceding radiotherapy The patient is tolerating radiation treatment well overall. We will continue to see patient in weekly management visits. She will contact us with any questions or concerns. We will continue with radiation treatment as planned. Signed by: Christa Casey R.N. 07/06/2021 2:35 PM CDT I saw and evaluated the patient and participated in the wilkins portions of the service. I reviewed the documentation of Christa Casey R.N. and agree with the findings and plan. The patient appears well onexam. She does have a maculopapular rash on her face that is pruritic. It is on her forehead and in h er periorbital region as well as on her cheeks. I am not certain if it is secondary to her chemotherapy. I asked her to discuss this with Dr. Vieira. In the meantime, she can utilize topical Benadryl cream or hydrocortisone cream. She verbalized satisfaction with this plan. I explained that we were notable to safely treat her with a hypofractionated course of 15 treatments because of the size of the treatment area and the adjacency of the majority of her duodenum; hence, she will be treated with standard fractionation with 25 treatments total. She will continue with treatment as planned. Signed by: Yung Bills M.D. 07/06/2021 10:27 PM CDT [facility] [address] [place] [address] documented in this encounter Miscellaneous Notes Addendum Note - Lindsey Fisher C.NChicoAChico - 07/06/2021 1:00 PM CDT Encounter addended by: Lindsey Fisher C.NChicoAChico on: 07/07/2021 7:56 AM Actions taken: Letter saved documented in this encounter Plan of Treatment Upcoming Encounters Date Type Specialty Care Team Description 11/19/2021 Clinical Communication Admitting/Central Scheduling 11/23/2021 Comprehensive Visit Neurology Kenji Zaldivar M.D. [address] [place] [address] Scheduled Orders Name Type Priority Associated Diagnoses Order S chedule Management Visit Radiation Oncology Routine Malignant Neoplasm Of Once for 1 Pancreas Occurrences Adenocarcinoma (HCC) startin g 07/06/2021 until 2 documented as of this encounter Visit Diagnoses Diagnosis Malignant Neoplasm Of Pancreas Adenocarc inoma (HCC) documented in this encounter Care Teams Cooking Show Host Relationship Specialty Start Date End Date Aviva Laws APRN, C.N.P., PCP - General Family Medicine 12/11/20 09/23/21 M.S.N. [address] [place] [address] documented as of this encounter
--- OUTSIDE RECORDS SUMMARY | 2021-11-03 07:02 | XMS_ITS | Encounter Summary ---
:1940 Author Organization [facility] Address [address] [place] [address] Care Team Providers Name Role Phone Veto Aviva Ruiz APRN, C.N.P., M.S.N. Primary Care Provider [phone] [phone] Encounter Details Date Type Department Care Team Description 07/12/2021 Orders Only Department of Radiation Jin Cash M .D., Oncology in [facility] [address] [facility] [address] [place] [phone] (Wo rk) Social History Tobacco Use Types [...] More than 4 times per year 06/19/2021 adventism services? Do you belong to any clubs [...] Visit Neurology Kenji Zaldivar M.D. [address] [place] [address] documented as of this encounter Visit Diagnoses Not on filedocumented in this encounter Additional Health Concerns Infection Onset Date Last Indicated Resolved Time COVID19 07/19/2021 07/19/2021 08/08/2021 6:28 AM CDT documented as of this encounter Care Teams Customer Support Consultant Relationship Specialty Start Date End Date Aviva Laws APRN, C.N.P., PCP - General Family Medicine 12/11/20 09/23/21 M.S.N. [address] [place] [phone] documented as of this encounter
--- OUTSIDE RECORDS SUMMARY | 2021-11-03 07:02 | XMS_ITS | Encounter Summary ---
:1940 Author Organization [facility] Address [address] [place] [address] Care Team Providers Name Role Phone Aviva Laws APRN C.NChicoP., M.S.N. Primary Care Provider [phone] [phone] Reason for Referral Specialty Diagnoses / Procedures Referred By Contact Refer red To Contact Deisi Vaughn P.A.-C ., M.S. [facility] [address] [place] [phone] Referral ID Status Reason Start Date Expiration Date Visits Requ ested Visits Authorized Encounter Details Date Type Department Care Team Description 07/15/2021 Hospital Encounter Department of Ramón Bills M.D. [address] [place] [phone] Malignant Neoplasm Of Radiation Oncology Ofelia Andino, R.NChico [address] [place] [phone] Pancreas Adenocarcinoma in [place], (HCC) [place] [address] [place] [address] Social History Tobacco Use Types [...] More than 4 times per year 06/19/2021 pentecostal services? Do you belong to any clubs [...] Sig Dispensed Refills Start Date End Date wktxgar-M8-jkle-copper- Take by mouth. 0 05/20/19 21 marlo [...] 4 (four) times per tablet a day. rqtrvt-xdqtyklr-lixzqez Take 2 capsules by 360 capsule 3 07/27/2021 (CREON) mouth 3 (three) 24,000-76,000-120,000 times a day with Unit per DR capsule meals. lisinopriL Take 20 mg by mouth. 0 04/10/2020 070 03/2021 (PRINIVIL,ZESTRIL) 20 mg tablet LORazepam (ATIVAN) [...] encounter Progress Notes Ofelia Andino R.N. - 07/15/2021 2:45 PM CDT SUBJECTIVE Patient education visit completed today. Patient provided with high calorie boost supplements and calorie supplements. All questions answered today. documented in this encounter Plan of Treatment Upcoming Encounters Date Type Specialty Care Team Description 11/19/2021 Clinical Communication Admitting/Central Scheduling 11/23/2021 Comprehensive Visit Neurology Kenji Zaldivar M.D. [address] [place] [address] Scheduled Referrals Name Type Priority Associated Diagnoses Order S chedule Radiation Outpatient Routine Malignant Neoplasm Of Once f or 1 Oncology - Nurse Referral Pancreas Occurrences education visit Adenocarcinoma (HCC) star maryan 07/15/2021 (clinic) until 2 documented as of this encounter Visit Diagnoses Diagnosis Malignant Neoplasm Of Pancreas Adenocarc inoma (HCC) documented in this encounter Care Teams Gasket Maker Relationship Specialty Start Date End Date Aviva Laws APRN, C.N.P., PCP - General Family Medicine 12/11/20 09/23/21 M.S.N. [address], [place] [address] documented as of this encounter
--- OUTSIDE RECORDS SUMMARY | 2021-11-03 07:02 | XMS_ITS | Encounter Summary ---
:1940 Author Organization [facility] Address [address] [place] [address] Care Team Providers Name Role Phone Aviva Laws APRN C.NChicoP., M.S.N. Primary Care Provider +1 [phone] Reason for Referral Radiation Therapy (Routine) - Authorized Specialty Diagnoses / Procedures Referred By Contact Refer red To Contact Diagnoses Malignant Neoplasm Of Pancreas Adenocarcinoma (HCC) Yung Bills M.D. [facility] Procedures Management Visit [address] [place] [address] Referral ID Status Reason Start Date Expiration Date Visits V isits Requested Authorized [id number] Authorized 06/22/2021 06/22/2022 10 10 Reason for Visit Radiation Therapy (Routine) - Authorized Specialty Diagnoses / Procedures Referred By Contact Refer red To Contact Diagnoses Malignant Neoplasm Of Pancreas Adenocarcinoma (HCC) Yung Bills M.D. [facility] Procedures Management Visit [address] [place] [address] Referral ID Status Reason Start Date Expiration Date Visits V isits Requested Authorized [id number] Authorized 06/22/2021 06/22/2022 10 10 Encounter Details Date Type Department Care Team Description 07/13/2021 Hospital Encounter Department of Jerrica Gray Neoplasm Of Radiation Oncology Kasey Pina Pancreas in [place], [address] [place] Adenocarcinoma (HCC) [place], [place] [address] [facility] [address] [place], [place] [phone] [address] (Work) [phone] Social History Tobacco Use Types Packs/Day Years [...] or relatives? How often do you attend roman catholic or More than 4 times per year 06/19/2021 judaism services? Do you belong to any clubs or Yes 06/19/2021 organizations such as roman catholic groups, unions, fraternal or athletic groups, [...] place to sleep or slept in a penitentiary (including now)? Education Answer Date Recorded What is the highest level of school you have Some college, n o degree 10/23/2020 completed or the highest degree you have received? Sex Assigned at Date Recorded Female 07/03/2017 2:07 PM CDT documented as of this encounter Last Filed Vital Signs Vital Sign Reading Time Taken Comments Blood Pressure 133/81 07/13/2021 2:40 PM CDT Pulse 107 07/13/2021 2:40 PM CDT Temperature 36.3 ??C (97.3 ??F) 07/13/2021 2:40 PM CDT Respiratory Rate - - Oxygen Saturation - - Inhaled Oxygen Concentration - - Weight 49.2 kg (108 lb 7.5 oz) 07/13/2021 2:40 PM CDT Height - - Body Mass Index 17.83 01/26/2021 1:18 PM CDT documented in this encounter Medications at Time of Discharge Medication Sig Dispensed Refills Start Date End Date ttvvfsa-L8-zsnb-copper- Take by mouth. 0 05/20/19 21 marlo [...] 4 (four) times per tablet a day. muulhl-dmefemuj-uukkjax Take 2 capsules by 360 capsule 3 [...] documented as of this encounter Progress Notes Jerrica Gray M.D. - 07/13/2021 2:45 PM CDT ATTESTATION FOR MANAGEMENT VISIT I saw and evaluated the patient and participated in the wilkins portions of the service as noted below. I reviewed the documentation of Ms. Christa Casey RN and agree with the findings and plan. The patient appears well on exam. We will continue with radiation as planned and monitor weekly. Jerrica Gray M.D., 07/13/2021 SUBJECTIVE REASON FOR VISIT Evaluation for side effects while receiving radiation treatment for 1. Malignant Neoplasm Of Pancreas Adenocarcinoma (HCC) SUPERVISED BY: Dr. Gray HISTORY OF PRESENT ILLNESS Azeb العراقي is a 81 y.o. 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 She is now undergoing radiotherapy with concurrent oral capecitabine. Chemotherapy is being managed by Dr. Garcia at [facility]. Treatment Course: 1xPancreas Plan ID Fractions Dose / Fraction (cGy) Dose Treated (cGy) Dose Planned (cGy) First Treatment Last Treatment Elapsed Days [id number] 200 1400 5000 07/05/2021 07/13/2021 8 Course Summary 07/05/2021 07/13/2021 8 The patient was seen and examined today with Dr. Gray. Patient reports some intermittent achy stomach pain. She feels pain is related to her meal intake. She is taking 2 Tramadol twice a day. Pain is well managed in the evening and at bedtime therefore does not feel that she needs a 3rd evening dose of tramadol. She does have a prescription for oxycodone but has not taken any to date. She takes Imodium as needed for occasional diarrhea. She denies fevers, dysuria, nausea, vomiting, hematuria or rectal bleeding. She is not taking pre treatment Zofran andinstead takes Zofran on rare occasion if nausea is present. She limits oral intake for 4 hours before radiation treatments. LABS July 12, 2021: WBC 9.67; Hgb 10.2; Plt 333,000; ANC 8.15 PATIENT REPORTED SYMPTOM SCREEN FATIGUE (Scale: 0 = no fatigue; 10 = worst fatigue you can imagine): 5 PAIN (Scale: 0 = no pain; 10 = worst pain you can imagine): 6 OVERALL QUALITY OF LIFE (Scale: 0 = as bad as can be; 10 = as good as can be): 6 OBJECTIVE BP 133/81 (BP Location: Left arm, Patient Position: Sitting, Cuff Size: Regular) Pulse 107 Temp 36.3 ??C (Temporal) Wt 49.2 kg BMI 17.83 kg/m?? PHYSICAL EXAM General: Alert and oriented [...] patient is tolerating radiation treatment well overall. She will add Tylenol for her pain control. Dr. Gray prescribed Reglan for patient today to help with gut mobility for further pain relief. Reglan has a potential interaction with Compazine; therefore patient is to hold Compazine while on Reglan. Patient is scheduled for re simulation with IV contrast tomorrow. We will continue to see patient in weekly management visits. She will contact us with any questions or concerns. We will continue with radiation treatment as planned. Signed by: Christa Casey R.N. 07/13/2021 3:09 PM CDT documented in this encounter Plan of Treatment Upcoming Encounters Date Type Specialty Care Team Description 11/19/2021 Clinical Communication Admitting/Central Scheduling 11/23/2021 Comprehensive Visit Neurology Kenji Zaldivar M.D. [address] [place] [address] Scheduled Orders Name Type Priority Associated Diagnoses Order S chedule Management Visit Radiation Oncology Routine Malignant Neoplasm Of Once for 1 Pancreas Occurrences Adenocarcinoma (HCC) startin g 07/13/2021 until 2 documented as of this encounter Visit Diagnoses Diagnosis Malignant Neoplasm Of Pancreas Adenocarc inoma (HCC) documented in this encounter Care Teams Transplant Case Manager Relationship Specialty Start Date End Date Aviva Laws, LENNOX, C.N.P., PCP - General Family Medicine 12/11/20 09/23/21 M.S.N. [address] [place] [address] documented as of this encounter
--- OUTSIDE RECORDS SUMMARY | 2021-11-03 07:02 | XMS_ITS | Encounter Summary ---
:1940 Author Organization [facility] Address [address] [place] [address] Care Team Providers Name Role Phone Aviva Laws APRN C.N.P., M.S.N. Primary Care Provider [phone] [phone] Reason for Referral Radiation Therapy (Routine) - Closed Specialty Diagnoses / Procedures Referred By Contact Refer red To Contact Diagnoses Malignant Neoplasm Of Pancreas Adenocarcinoma (HCC) Yung Bills M.D. [facility] Procedures Verification/Re-Sim Verification/Re-Sim [address] [place] [phone] Referral ID Status Reason Start Date Expiration Date Visits Requ ested Visits Authorized [id number] Closed 07/09/2021 07/09/2022 1 1 Reason for Visit Radiation Therapy (Routine) - Closed Specialty Diagnoses / Procedures Referred By Contact Refer red To Contact Diagnoses Malignant Neoplasm Of Pancreas Adenocarcinoma (HCC) Yung Bills M.D. [facility] Procedures Verification/Re-Sim Verification/Re-Sim [address] [place] [phone] Referral ID Status Reason Start Date Expiration Date Visits Requ ested Visits Authorized [id number] Closed 07/09/2021 07/09/2022 1 1 Encounter Details Date Type Department Care Team Description 07/14/2021 Hospital Encounter Department of Vi Bills Neoplasm Of Radiation Oncology Yung Phillips M.D. Pancreas Adenocarcinoma in [place], [address] [facility] (HCC) [place], [place] [address] [facility] [address] [place], [place] [phone] [address] (Work) [phone] Social History Tobacco Use Types Packs/Day Years [...] More than 4 times per year 06/19/2021 taoism services? Do you belong to any clubs [...] Sig Dispensed Refills Start Date End Date qxqxqwe-I6-tnkj-copper- Take by mouth. 0 05/20/19 21 marlo [...] 4 (four) times per tablet a day. qsjsfw-sgjwpmfp-dugpkaj Take 2 capsules by 360 capsule 3 [...] 11 refills documented as of this encounter Procedure Notes Christine Chau RTT - 07/14/2021 3:15 PM CDTAssociated Order(s): Verification/Re-Sim Pre-Procedure Diagnose(s): Malignant Neoplasm Of Pancreas Adenocarcinoma (HCC) Post-Procedure Diagnose(s): Malignant Neoplasm Of Pancreas Adenocarcinoma (HCC) Verification/Re-Sim Date/Time: 07/14/2021 3:12 PM Performed by: Yung Bills M.D. Authorized by: Yung Bills M.D. Simulation was performed under physician supervision based on physician order. Physician was immediately available to provide assistance and direction throughout the procedure. The patient was appropriately identified and placed in the treatment position using the necessary immobilization. Area scanned: Chest and Abdomen Contrast used for the simulation procedure: IV and Oral Motion management: Breath hold scan Reason for Re-Sim: Anatomy change Immobilization: No changes made CT guidance: Following positioning of the patient, a series of slices was obtained to be utilized intreatment planning. CT images were transferred to the Planana treatment planning system. Verification treatment planning will take place prior to treatment delivery as directed by physician. Patient set up and imaging was appropriate and completed without incident. Supervisor Laboratory use: No documented in this encounter Plan of Treatment Upcoming Encounters Date Type Specialty Care Team Description 11/19/2021 Clinical Communication Admitting/Central Scheduling 11/23/2021 Comprehensive Visit Neurology Kenji Zaldivar M.D. [address] [place] [address] documented as of this encounter Procedures Procedure Name Priority Date/Time Associated Diagnosis Comme nts VERIFICATION/RE-SI Routine 07/14/2021 3:12 PM Malignant Neopla sm Of Results for this M CDT Pancreas Adenocarcinoma proc edure are in (HCC) the results section. documented in this encounter Results Verification/Re-Sim (07/14/2021 3:12 PM CDT) Specimen (Source) Anatomical Location Collection Method / Collectio n Time Received Time / Laterality Volume Narrative TAVERA JOSE ANGEL - 07/14/2021 3:12 PM CDChristine Taylor, RTT ? 07/14/2021 ??3:13 PM Verification/Re-Sim Date/Time: 07/14/2021 3:12 PM Performed by: Yung Bills M.D. Authorized by: Yung Bills M.D. Yung Bills M.D. RADIATION ONCOLOGY ORDERABLE S Performing Organization Address City/State/ZIP Code Phon e Number [facility] documented in this encounter Visit Diagnoses Diagnosis Malignant Neoplasm Of Pancreas Adenocarc inoma (HCC) documented in this encounter Care Teams Knowledge Analyst Relationship Specialty Start Date End Date Aviva Laws, LENNOX, C.N.P., PCP - General Family Medicine 12/11/20 09/23/21 M.S.N. [address] [address] documented as of this encounter
--- OUTSIDE RECORDS SUMMARY | 2021-11-03 07:02 | XMS_ITS | Encounter Summary ---
:1940 Author Organization [facility] Address [address] [place] [address] Care Team Providers Name Role Phone Aviva Laws APRN, C.N.P., M.S.N. Primary Care Provider [phone] [phone] Encounter Details Date Type Department Care Team Description 07/08/2021 Hospital Encounter Department of Radiation Vy Bills, Oncology in [facility] [address] [facility] [address] [place] [phone] Social History Tobacco Use Types Packs/Day Years [...] or relatives? How often do you attend synagogue or More than 4 times per year 06/19/2021 methodist services? Do you belong to any clubs or Yes 06/19/2021 organizations such as synagogue groups, unions, fraternal or athletic groups, or [...] place to sleep or slept in a mcc (including now)? Education Answer Date Recorded What is the highest level of school you have Some college, n o degree 10/23/2020 completed or the highest degree you have received? Sex Assigned at Date Recorded Female 07/03/2017 2:07 PM CDT documented as of this encounter Medications at Time of Discharge Medication Sig Dispensed Refills Start Date End Date gnsqjry-J9-asgv-copper-m Take by mouth. 0 021 angan (Citracal-D3 [...] 4 (four) per tablet times a day. dqvgkf-tdqrujfm-ouiyfsi Take 2 capsules by 360 capsule 3 [...] Visit Neurology Kenji Zaldivar M.D. [address] [place] [address] documented as of this encounter Visit Diagnoses Not on filedocumented in this encounter Care Teams Tool Crib Clerk Relationship Specialty Start Date End Date Aviva Laws APRN, C.N.P., PCP - General Family Medicine 12/11/20 09/23/21 M.S.N. [address] [place] [address] documented as of this encounter
--- OUTSIDE RECORDS SUMMARY | 2021-11-03 07:02 | XMS_ITS | Encounter Summary ---
:1940 Author Organization [facility] Address [address] [place] [address] Care Team Providers Name Role Phone Aviva Laws APRN CSusanna, M.S.N. Primary Care Provider [phone] [phone] Reason for Referral Outpatient (Routine) - Authorized Specialty Diagnoses / Procedures Referred By Contact Refer red To Contact Diagnoses Malignant Neoplasm Of Pancreas Adenocarcinoma (HCC) Deisi Vaughn P.A.-C., M.S. [address] [place] [phone] Referral ID Status Reason Start Expiration Visits Visits Date Date Requested Authorized [id number] Authorized Service not 07/12/2021 07/12/2022 1 1 available in [facility] Encounter Details Date Type Department Care Team Description 07/12/2021 Orders Only Department of Deisi Vaughn, Malignant [place] plasm Of Radiation Oncology in [place], M .S. Pancreas Adenocarcinoma [facility] [address] [email or web address] (HCC) (Primary Dx) [address] [place] [phone] Social History Tobacco Use Types Packs/Day Years [...] More than 4 times per year 06/19/2021 zoroastrianism services? Do you belong to any clubs or Yes 06/19/2021 organizations such as yarsani groups, unions, fraProfitek or athletic groups, or school groups? How [...] Visit Neurology Kenji Zaldivar M.D. [address] [place] [phone] documented as of this encounter Visit Diagnoses Diagnosis Malignant Neoplasm Of Pancreas Adenocarc inoma (HCC) - Primary documented in this encounter Care Teams Nurse First Assist Relationship Specialty Start Date End Date Aviva Laws APRN, C.N.P., PCP - General Family Medicine 12/11/20 09/23/21 M.S.N. [address] [facility] [place] [address] documented as of this encounter
--- OUTSIDE RECORDS SUMMARY | 2021-11-03 07:02 | XMS_ITS | Encounter Summary ---
:1940 Author Organization [facility] Address [address] [place] [address] Care Team Providers Name Role Phone Aviva Laws APRN, C.N.P., M.S.N. Primary Care Provider [phone] [phone] Encounter Details Date Type Department Care Team Description 07/16/2021 Hospital Encounter Department of Radiation Vy Bills, Oncology in [facility] [address] [facility] [address] [place] [phone] Social History Tobacco Use Types Packs/Day Years [...] or relatives? How often do you attend taoist or More than 4 times per year 06/19/2021 mandaen services? Do you belong to any clubs or Yes 06/19/2021 organizations such as taoist groups, unions, fraternal or athletic groups, or [...] Sig Dispensed Refills Start Date End Date tbprcmb-D0-zubx-copper- Take by mouth. 0 05/20/19 21 marlo [...] 4 (four) times per tablet a day. hwihdl-eirjvqqt-fgaegdv Take 2 capsules by 360 capsule 3 [...] Visit Neurology Kenji Zaldivar M.D. [address] [place] [address] documented as of this encounter Visit Diagnoses Not on filedocumented in this encounter Care Teams Projector Booth Operator Relationship Specialty Start Date End Date Aviva Laws APRN, C.N.P., PCP - General Family Medicine 12/11/20 09/23/21 M.S.N. [address] [place] [address] documented as of this encounter
--- OUTSIDE RECORDS SUMMARY | 2021-11-03 07:03 | XMS_ITS | Encounter Summary ---
:1940 Author Organization [facility] Address [address] [place] [address] Care Team Providers Name Role Phone Aviva Laws APRN, C.N.P., M.S.N. Primary Care Provider +1 [phone] Reason for Referral Outpatient (Routine) - Closed Specialty Diagnoses / Procedures Referred By Contact Refer red To Contact Diagnoses Malignant Neoplasm Of Pancreas Adenocarcinoma (HCC) Neutropenia Chemotherapy Induced (HCC) Hyperbilirubinemia [facility] Procedures ERCP C.N.P., M.S. [address] [place], [place] [address] Referral ID Status Reason Start Date Expiration Date Visits Requ ested Visits Authorized [id number] Closed 01/18/2021 01/18/2022 1 1 Reason for Visit Outpatient (Routine) - Closed Specialty Diagnoses / Procedures Referred By Contact Refer red To Contact Diagnoses Malignant Neoplasm Of Pancreas Adenocarcinoma (HCC) Neutropenia Chemotherapy Induced (HCC) Hyperbilirubinemia Kimberly Rios APRN, [facility] Procedures ERCP C.N.P., M.S. [address] [place] [address] Referral ID Status Reason Start Date Expiration Date Visits Requ ested Visits Authorized [id number] Closed 01/18/2021 01/18/2022 1 1 Encounter Details Date Type Department Care Team Description 01/26/2021 Hospital Division of Kimberly Rios APRN, C.N.P., M.S. [address] [place] [phone] Malignant Neoplasm Of Pancreas Adenocarc inoma (HCC); Encounter Gastroenterology in Gloria Lopez APRN, CRNA, D.N.P. [address] [place] [address] Neutropenia Chemotherapy Induced (HCC); [place], [place] Hyperbilirubinemia [address] [place] [address] Social History Tobacco Use Types Packs/Day Years [...] or relatives? How often do you attend rastafari or More than 4 times per year 06/19/2021 rastafarian services? Do you belong to any clubs or Yes 06/19/2021 organizations such as rastafari groups, unions, fraternal or athletic groups, or [...] minutes do you engage in exercise at is 0 min 06/19/2021 level? Stress Answer [...] Sign Reading Time Taken Comments Blood Pressure 144/90 01/26/2021 1:18 PM CDT Pulse 80 01/26/2021 1:18 PM CDT Temperature 36.7 ??C (98.1 ??F) 01/26/2021 1:18 PM CDT Respiratory Rate 14 01/26/2021 1:18 PM CDT Oxygen Saturation 99% 01/26/2021 1:18 PM CDT Inhaled Oxygen Concentration - - Weight 51.9 kg (114 lb 6.7 oz) 01/26/2021 1:20 PM CDT Height 166.1 cm (5' 5.39) 01/26/2021 1:18 PM CDT Body Mass Index 18.81 01/26/2021 1:18 PM CDT documented in this encounter Medications at Time of Discharge Medication Sig Dispensed Refills Start Date End Date levothyroxine 0 09/12/2020 (SYNTHROID, LEVOTHROID) 75 mcg tablet qehgvzh-[id number]-wmza-copper-m Take by mouth. 0 021 angan (Citracal-D3 [...] (HCC) nausea or vomiting (unrelieved by prochlorperazine). lisinopriL Take 20 mg by 0 04/10/2020 09/24/2021 (PRINIVIL,ZESTRIL) 20 mg mouth. tablet calcitRIOL (ROCALTROL) Take 2 capsules 180 capsule 3 021 08/12/2021 0.25 mcg capsule (0.5 mcg total) by mouth daily. dexAMETHasone (DECADRON) TAKE 2 TABLETS BY 12 tablet 1 11/2509/16/2021 4 mg tabletIndications: MOUTH DAILY. 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 (HCC) diphenoxylate-atropine Take 1 tablet by 120 tablet 2 021 09/24/2021 (LOMOTIL) 2.5-0.025 mg mouth 4 (four) per tablet times a day. izbypr-wkyjxbfq-kggussr Take 2 capsules by 360 capsule 3 07/27/2021 (CREON) mouth 3 (three) 24,000-76,000-120,000 times a day with Unit per DR capsule meals. LORazepam (ATIVAN) 0.5 Take 1 tablet (0.5 [...] Neurology Kenji Zaldivar M.D. [address] [place] [phone] documented as of this encounter Procedures Procedure Name Priority Date/Time Associated Diagnosis Comme nts ERCP Routine 01/26/2021 12:34 PM Malignant Neoplasm Of Results for this CDT Pancreas Adenocarcinoma proc edure are in (HCC) the results Neutropenia Chemotherapy sec tion. Induced (HCC) Hyperbilirubinemia ERCP Routine 01/26/2021 12:34 PM Malignant Neoplasm Of CDT Pancreas Adenocarcinoma (HCC) Neutropenia Chemotherapy Induced (HCC) Hyperbilirubinemia documented in this encounter Results ERCP (01/26/2021 12:34 PM CDT) Specimen (Source) Anatomical Collection Method Collection Time Re ceived Time Location / / Volume Laterality 01/26/2021 12:34 PM CDT Impressions [facility] - 01/26/2021 3:22 PM CDT Post-op Diagnoses: ? - Mild acquired duodenal stenosis . ? - The major papilla appeared jasmeet atous. ? 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 ? - The upstream main bile duct mas sively dilated. ? - A Biliary needle knife fistulot guido was performed. ? - One 10 mm x 4 cm uncovered self expanding metal stent was placed into ? the common bile duct and drainage promptly ensued.. Narrative [facility] - 01/26/2021 3:22 PM CDT Gonda 2 GI Patient Name: Azeb العراقي Date of : 1940 Age: 80 Gender: Female Procedure Date: 01/26/2021 Procedure: ? ERCP Providers: ? Nile Curry MD Referring Provider: ?Kimberly may Pre-op Diagnoses: ?Biliary dil ation on Computed Tomogram Scan, ? Jaswinder barnes, Malignant tumor of the head of pancreas Recommendation: ? - Clear liquid diet for 1 day. ? - Augmentin (amoxicillin/clavulan ate) 500 mg PO q 12 hr for 5 days. Findings: ? The technology program manager film was normal. The es ophagus was successfully intubated ? under direct vision without detai led examination of the pharynx, larynx, ? and associated structures. The up per GI tract was traversed under direct ? vision without detailed examinati on. An acquired edematous mild-moderate ? stenosis was found at the duodena l angle into the second portion of the ? duodenum. Dilation to 15 mm was n ot snug but did faciliate advancement ? of the instrument to the mid seco nd portion. The major papilla was ? normal, with an edematous intramu ral ampullary segment above it. The ? bile duct could not be cannulated with a wire through the short-nosed ? traction sphincterotome. A biliar y pre-cut fistulotomy measuring 7 mm in ? length was made into the free wal l of the ampulla, using a needle knife ? sphincterotome, freehand techniqu e and [employer] electrocautery. There was ? no post-sphincterotomy bleeding. Entry to the bile duct with a short ? angled hydrophilic (Navipro) guid pippa was prompt. Contrast demonstrated ? the main bile duct was diffusely dilated to a maximum of 20 mm, above a ? 10-15 mm long distal stenosis. On e 4 cm long x 10 mm diameter bare metal ? Wallflex stent was placed 3 cm in to the common bile duct. Dark black ? bile flowed through the stent, wh ich was in good position. Procedural Details: ? The patient was seen, evaluated, history reviewed, airway and heart-lung ? exams were performed by licensed provider and were satisfactory for ? planned level of sedation care. T he risks, benefits and alternatives for ? the procedure and sedation were d iscussed and informed consent was ? obtained. A procedural pause was conducted in the presence of assisting ? personnel to verify the correct p atient identity and procedure to be ? performed. Throughout the procedu re, the patient's blood pressure, ? pulse, and oxygen saturations wer e monitored continuously. The ? Duodenoscope was introduced throu gh the mouth, and advanced to the ? duodenum and used to inject contr ast into the bile duct. The ERCP was ? technically difficult and complex due to abnormal anatomy and ? challenging cannulation. The david ent tolerated the procedure fairly well. Complications: ? No immedia te complications. Estimated Blood Loss: ?Estimated blo od loss: none. Attending Participation: I personally pe rformed the entire procedure. Nile Curry MD 01/26/2021 3:21:56 PM This report has been signed electronical ly. Number of Addenda: 0 Note Initiated On: 01/26/2021 12:34 PM Kimberly Rios APRN, C.N.P., M.S. GI PROCEDURE ORDER DANIEL Performing Organization Address City/State/ZIP Code Phon e Number [facility] documented in this encounter Visit Diagnoses Diagnosis Malignant Neoplasm Of Pancreas Adenocarc inoma (HCC) Neutropenia Chemotherapy Induced (HCC) Hyperbilirubinemia documented in this encounter Administered Medications Inactive Administered Medications - up to 3 most recent administrations Medication Order MAR Action Action Date Dose Rate Site acetaminophen injection 1,000 New Bag 01/26/2021 3:42 PM 1,000 mg 400 mL/hr mg CDT 1,000 mg, intravenous, at 400 mL/hr, Administer over 15 Minutes, Once, On Mon01/26/21 at 1545, For 1 dose, PACU (only), Restriction Criteria (Pharmacy will review and approve if criteria met): Unable to take or tolerate medications administered via the enteral route or orally (not just NPO) heparin flush 500 Units Given 01/26/2021 4:15 PM CDT 500 Units 500 Units, intra-catheter, During hospitalization, line care, Prior to discharge, Starting on Mon01/26/21 at 1321, For 1 dose, Implanted Vascular Access Device (IVAD) Venous Non-Valved: Following saline flush prior to discharge. documented in this encounter Care Teams Refuse And Recycling Worker Relationship Specialty Start Date End Date Aviva Laws APRN, C.N.P., PCP - General Family Medicine 12/11/20 09/23/21 M.S.N. [address] [address] documented as of this encounter
--- OUTSIDE RECORDS SUMMARY | 2021-11-03 07:03 | XMS_ITS | Encounter Summary ---
:1940 Author Organization [facility] Address [address] [place] [address] Care Team Providers Name Role Phone Aviva Laws APRN, C.N.P., M.S.N. Primary Care Provider [phone] [phone] Reason for Visit Reason Comments Med Refill dexAMETHasone Encounter Details Date Type Department Care Team Description 03/13/2021 Refill Department of Oncology [facility] (dexAMETHasone in [facility] M.B.B.S. ) [address] [place] [address] [place] [phone] [place], [place] [phone] Social History Tobacco Use Types Packs/Day Years [...] More than 4 times per year 06/19/2021 baptist services? Do you belong to any clubs [...] this encounter Miscellaneous Notes Telephone Encounter - Preethi Shi C.Ph.T. - 03/15/2021 7:29 AM ROPE COILING MACHINE OPERATOR Surescripts created refill request. COILING MACHINE OPERATOR documented in this encounter Plan of Treatment Upcoming Encounters Date Type Specialty Care Team Description 11/19/2021 Clinical Communication Admitting/Central Scheduling 11/23/2021 Comprehensive Visit Neurology Kenji Zaldivar M.D. [address] [place] [address] documented as of this encounter Visit Diagnoses Diagnosis Malignant Neoplasm Of Pancreas Adenocarc inoma (HCC) documented in this encounter Care Teams Bakery Technician Relationship Specialty Start Date End Date Aviva Laws APRN, C.N.P., PCP - General Family Medicine 12/11/20 09/23/21 M.S.N. [address] [place] [phone] documented as of this encounter
--- OUTSIDE RECORDS SUMMARY | 2021-11-03 07:03 | XMS_ITS | Encounter Summary ---
:1940 Author Organization [facility] Address [address] [place] [address] Care Team Providers Name Role Phone Aviva Laws APRN, C.N.P., M.S.N. Primary Care Provider [phone] [phone] Encounter Details Date Type Department Care Team Description 02/09/2021 Clinical Communication Department of Astrid Dang Oncology in M.D., Ph.D. [place], [place] [address] [facility] [address] [place] [address] [phone] Social History Tobacco Use Types Packs/Day Years [...] or relatives? How often do you attend restoration or More than 4 times per year 06/19/2021 baptism services? Do you belong to any clubs or Yes 06/19/2021 organizations such as restoration groups, unions, fraternal or athletic groups, or [...] this encounter Miscellaneous Notes Telephone Encounter - Astrid Dang M.D., Ph.D. - 02/09/2021 8:01 PM ABSTRACTER I spoke with Mrs. العراقي as the on-call oncology fellow this evening. She had a question about her CADD pump infusion rate. She started her 5 FU infusion about 7 hours ago. The display currently reads 53.8 mL remaining. She thought that the normal starting volume was close to 90 mL, and is concerned that the chemo may be infusing too fast. Her CADD pump sheet does not list the infusion rate (left blank), however, her remembers thenurse saying that it was infusing at 1.3 ml/hr. I cannot verify the rate, as she received her chemo in [place]. However, at that rate the chemo infusion would complete in 41 hours, which is correct for a 48 hour total infusion time. RACTER documented in this encounter Plan of Treatment Upcoming Encounters Date Type Specialty Care Team Description 11/19/2021 Clinical Communication Admitting/Central Scheduling 11/23/2021 Comprehensive Visit Neurology Kenji Zaldivar M.D. [address] [place] [phone] documented as of this encounter Visit Diagnoses Not on filedocumented in this encounter Care Teams Claim Technician Relationship Specialty Start Date End Date Aviva Laws APRN, C.N.P., PCP - General Family Medicine 12/11/20 09/23/21 M.S.N. [address] [place] [address] documented as of this encounter
--- OUTSIDE RECORDS SUMMARY | 2021-11-03 07:03 | XMS_ITS | Encounter Summary ---
:1940 Author Organization [facility] Address [address] [place] [address] Care Team Providers Name Role Phone Aviva Laws APRN, C.N.P., M.S.N. Primary Care Provider [phone] [phone] Reason for Visit Reason Comments Medication Question Encounter Details Date Type Department Care Team Description 02/02/2021 Clinical Department of Andrew, Medication Communication Oncology in Cristy Cespedes, R.N. [address] [place] [phone] Social History Tobacco Use Types Packs/Day Years [...] many times do you More than three raejsh es a week 06/19/2021 talk on the phone with family, friends, or neighbors? How often do you get together with friends Three times a wee k 06/19/2021 or relatives? How often do you attend zoroastrian or More than 4 times per year 06/19/2021 pentecostal services? Do you belong to any clubs or Yes 06/19/2021 organizations such as zoroastrian groups, unions, fraternal or athletic groups, or [...] this encounter Miscellaneous Notes Telephone Encounter - Beatriz Weinberg R.N. - 02/03/2021 10:22 AM CST SUBJECTIVE CHIEF COMPLAINT / REASON FOR CALL Medication Question ASSESSMENT I contacted Ms. العراقي to see how she is doing with her pain control. She stated that the pain has been continuing for about a month. She stated that Tramadol 50 mg, 2 tablets three times per day helps. She said that it keeps her abdominal pain at a 3/10. She denies nausea, vomiting, changes in bowel movements, or fever. 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 She is transitioning to treatment at [facility] with Dr. Garland Garcia. PLAN I informed her that Dr. Andrés Gill MD refilled the Tramadol prescription in Kimberly Rios APRN TELEMARKETING REPRESENTATIVE [place] absence. We discussed that if her pain changes or becomes more severe despite taking the Tramadol, she should be seen for evaluation of the pain control. I suggested that she discuss this withDr. Garland Garcia MD at [place], [place] at her next visit. Disposition/Recommendation: as noted above.. Information/Education: patient/caller able to teach back. Caller agreeable to plan of care: yes. The following references were used: nursing clinical judgement and provider recommendation.. ER DOWN Telephone Encounter - Andrés Gill M.D. - 02/02/2021 6:19 PM CUTTER DOWN Tramadol sent. Does she need eval for the pain? Palliative referral maybe? ER DOWN Telephone Encounter - Preethi Heard - 02/02/2021 1:22 PM CUTTER DOWN Name of caller? Azeb Do we have a valid auth to speak with caller? yes Reason for call: Azeb called to report that she is experiencing a lot of stomach pain. She was onher way to [place] to get her pump disconnected yesterday and they were able to get her few days ofTramadol but she will be out tomorrow morning, she is calling to see if we'd be able to write the rxfor her, she is taking 6 tablets a day. [facility] in [place]. Thanks, Preethi Heard Rst Onc Rogo Med Aa Pod 1 ER DOWN documented in this encounter Plan of Treatment Upcoming Encounters Date Type Specialty Care Team Description 11/19/2021 Clinical Communication Admitting/Central Scheduling 11/23/2021 Comprehensive Visit Neurology Kenji Zaldivar M.D. [address] [place] [address] documented as of this encounter Visit Diagnoses Not on filedocumented in this encounter Care Teams Mail Superintendent Relationship Specialty Start Date End Date Aviva Laws APRN, C.N.P., PCP - General Family Medicine 12/11/20 09/23/21 M.S.N. [address] [place] [address] documented as of this encounter
--- OUTSIDE RECORDS SUMMARY | 2021-11-03 07:03 | XMS_ITS | Encounter Summary ---
:1940 Author Organization [facility] Address [address] [place] [address] Care Team Providers Name Role Phone Laws, Aviva Ruiz APRN, C.N.P., M.S.N. Primary Care Provider [phone] [phone] Reason for Visit Reason Comments Med Refill dexAMETHasone Encounter Details Date Type Department Care Team Description 03/15/2021 Refill Department of Oncology Garland Garcia Me d Refill in [facility] blossom Parks (dexAMETHasone ) [address] [facility] [address] [place], [place] [address] [place], [place] [phone] (Wo rk) Social History Tobacco Use Types [...] or relatives? How often do you attend yazidism or More than 4 times per year 06/19/2021 amish services? Do you belong to any clubs or Yes 06/19/2021 organizations such as yazidism groups, unions, fraternal or athletic groups, or [...] this encounter Miscellaneous Notes Telephone Encounter - Frannie Kim - 03/15/2021 4:34 PM CST Hi there, Ms. العراقي should refill with local oncologist. She's getting treatment in [place]. Thanks! PRESS OPERATOR Telephone Encounter - Katty Allen - 03/15/2021 3:47 PM CST Surescripts created refill request. PRESS OPERATOR documented in this encounter Plan of Treatment Upcoming Encounters Date Type Specialty Care Team Description 11/19/2021 Clinical Communication Admitting/Central Scheduling 11/23/2021 Comprehensive Visit Neurology Kenji Zaldivar M.D. [address] [place] [address] documented as of this encounter Visit Diagnoses Diagnosis Malignant Neoplasm Of Pancreas Adenocarc inoma (HCC) documented in this encounter Care Teams Type Caster Relationship Specialty Start Date End Date Aviva Laws, LENNOX, C.N.P., PCP - General Family Medicine 12/11/20 09/23/21 M.S.N. [address] [place] [phone] documented as of this encounter
--- OUTSIDE RECORDS SUMMARY | 2021-11-03 07:03 | XMS_ITS | Encounter Summary ---
:1940 Author Organization [facility] Address [address] [place] [address] Care Team Providers Name Role Phone Aviva Laws APRN, C.N.P., M.S.N. Primary Care Provider [phone] [phone] Encounter Details Date Type Department Care Team Description 05/10/2021 Clinical Communication Department of Vishal Hobson Oncology in [place], [place], [place] [address] [place] [address] Social History Tobacco Use Types Packs/Day Years [...] or relatives? How often do you attend mandaeism or More than 4 times per year 06/19/2021 methodist services? Do you belong to any clubs or Yes 06/19/2021 organizations such as mandaeism groups, unions, fraternal or athletic groups, or [...] this encounter Miscellaneous Notes Telephone Encounter - Danna Hobson M.D. - 05/10/2021 9:32 PM FAMILY PRESERVATION OFFICER I received a call from Ms. العراقي as the on-call fellow. Her CADD pump is beeping intermittently without any alarms on the display. It seems to be infusing appropriately. I asked her to turn off then on and problem persisted. She then changed the batteries per my request and problem persisted. I am unsure why the pump is intermittently beeping. She says she will manage overnight and follow-up with Dr. Garcia's team at the [facility] tomorrow. LY PRESERVATION OFFICER documented in this encounter Plan of Treatment Upcoming Encounters Date Type Specialty Care Team Description 11/19/2021 Clinical Communication Admitting/Central Scheduling 11/23/2021 Comprehensive Visit Neurology Kenji Zaldivar M.D. [address] [place] [address] documented as of this encounter Visit Diagnoses Not on filedocumented in this encounter Care Teams Cheese Cooker Relationship Specialty Start Date End Date Aviva Laws, LENNOX, C.N.P., PCP - General Family Medicine 12/11/20 09/23/21 Anisa [address] [place] [address] documented as of this encounter
--- OUTSIDE RECORDS SUMMARY | 2021-11-03 07:03 | XMS_ITS | Encounter Summary ---
:1940 Author Organization [facility] Address [address] [place] [address] Care Team Providers Name Role Phone Aviva Laws APRN, C.N.P., M.S.N. Primary Care Provider [phone] [phone] Encounter Details Date Type Department Care Team Description 01/25/2021 Clinical Communication Department of Oncology Ravinder Garcia in [facility] [address] [facility] [address] [place] [phone] Social History Tobacco Use Types Packs/Day Years [...] More than 4 times per year 06/19/2021 orthodox services? Do you belong to any clubs [...] this encounter Miscellaneous Notes Telephone Encounter - Garland Garcia M.D. - 01/25/2021 1:46 PM CDT Kimberly and Dr. 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 ERCP Planned 01/26/2021 at [facility] Will check CBC, CMP and magnesium on Monday02/01/2021 I am concerned about progression While on FOLFIRINOX. Last scan in 12/22/2020. Thoughts on rescanning in making a decision on switching to gem Abraxane or alternative therapy. documented in this encounter Plan of Treatment Upcoming Encounters Date Type Specialty Care Team Description 11/19/2021 Clinical Communication Admitting/Central Scheduling 11/23/2021 Comprehensive Visit Neurology Kenji Zaldivar M.D. [address] [place] [phone] documented as of this encounter Visit Diagnoses Not on filedocumented in this encounter Care Teams Camp Counselor Relationship Specialty Start Date End Date Aviva Laws, LENNOX, C.N.P., PCP - General Family Medicine 12/11/20 09/23/21 M.S.N. [address] [place] [address] documented as of this encounter
--- OUTSIDE RECORDS SUMMARY | 2021-11-03 07:03 | XMS_ITS | Encounter Summary ---
:1940 Author Organization [facility] Address [address] [place] [address] Care Team Providers Name Role Phone Aviva Laws APRN C.N.P., M.S.N. Primary Care Provider [phone] Reason for Referral Radiation Therapy (Routine) - Closed Specialty Diagnoses / Procedures Referred By Contact Refer red To Contact Diagnoses Malignant Neoplasm Of Pancreas Adenocarcinoma (HCC) Yung Bills M.D. [facility] Procedures Initial Rad Onc Treatment Planning CT Simulation [address] [place] [phone] Referral ID Status Reason Start Date Expiration Date Visits Requ ested Visits Authorized [id number] Closed 06/22/2021 06/22/2022 1 1 Reason for Visit Radiation Therapy (Routine) - Closed Specialty Diagnoses / Procedures Referred By Contact Refer red To Contact Diagnoses Malignant Neoplasm Of Pancreas Adenocarcinoma (HCC) Yung Bills M.D. [facility] Procedures Initial Rad Onc Treatment Planning CT Simulation [address] [place] [phone] Referral ID Status Reason Start Date Expiration Date Visits Requ ested Visits Authorized [id number] Closed 06/22/2021 06/22/2022 1 1 Encounter Details Date Type Department Care Team Description 06/28/2021 Hospital Encounter Department of Vi Bills Neoplasm Of Radiation Oncology Yung Phillips M.D. Pancreas Adenocarcinoma in [place], [address] [facility] (HCC) [place], [place] [address] [facility] [address] [place], [place] [phone] (Work) [phone] Social History Tobacco Use Types Packs/Day Years [...] More than 4 times per year 06/19/2021 [employer]? Do you belong to any clubs [...] Sig Dispensed Refills Start Date End Date [id number] Take by mouth. 0 021 angan (Citracal-D3 [...] 4 (four) per tablet times a day. [id number]-gjylytgo-xldxnlg Take 2 capsules by 360 capsule 3 [...] vomiting. (HCC) documented as of this encounter Procedure Notes Diane Perez, RTT - 06/28/2021 2:30 PM CDTAssociated Order(s): Initial Rad Onc Treatment Planning CT Simulation Pre-Procedure Diagnose(s): Malignant Neoplasm Of Pancreas Adenocarcinoma (HCC) Post-Procedure Diagnose(s): Malignant Neoplasm Of Pancreas Adenocarcinoma (HCC) Initial Rad Onc Treatment Planning CT Simulation Date/Time: 06/28/2021 3:38 PM Performed by: Yung Bills M.D. Authorized by: Yung Bills M.D. Simulation was performed under physician supervision based on physician order in preparation for radiation therapy. Physician was immediately available to provide assistance and direction throughout the procedure. Written consent for treatment was completed or confirmed. The patient was appropriately identified and placed in the treatment position using the necessary immobilization to ensure a reproducible treatment position. Reference pelayo were placed to facilitate marking of isocenter. Area scanned: Chest and Abdomen Contrast used for the simulation procedure: IV and Oral Patient position: Head first supine and arms up Custom immobilization: Vac-desire Motion management: 4D CT scan and Breath hold scan Bolus: No CT guidance: Following positioning of the patient, a series of slices was obtained to be utilized intreatment planning. CT images were transferred to the [employer] treatment planning system, after a reference isocenter was determined and marked. Segmentation and treatment planning will take place priorto treatment delivery. Patient set up and imaging was appropriate and completed without incident. Steaming Cabinet Tender use:No documented in this encounter Plan of Treatment Upcoming Encounters Date Type Specialty Care Team Description 11/19/2021 Clinical Communication Admitting/Central Scheduling 11/23/2021 Comprehensive Visit Neurology Kenji Zaldivar M.D. [address] [place] [phone] documented as of this encounter Procedures Procedure Name Priority Date/Time Associated Diagnosis Comme nts INITIAL RAD ONC Routine 06/28/2021 3:38 PM Malignant Neoplasm Of Results for this TREATMENT PLANNING CDT Pancreas procedure are in CT SIMULATION Adenocarcinoma (HCC) the re sults section. documented in this encounter Results Initial Rad Onc Treatment Planning CT Simulation (06/28/2021 3:38 PM CDT) Specimen (Source) Anatomical Location Collection Method / Collectio n Time Received Time / Laterality Volume Narrative TAVERA JOSE ANGEL - 06/28/2021 3:38 PM CDT Diane Perez, RTT ? 06/28/2021 ??3:40 PM Initial Rad Onc Treatment Planning CT Si mulation Date/Time: 06/28/2021 3:38 PM Performed by: Yung Bills M.D. Authorized by: Yung Bills M.D. Yung Bills M.D. RADIATION ONCOLOGY ORDERABLE S Performing Organization Address City/State/ZIP Code Phon e Number [place]SE ANGEL [place] O[place]SE [place] na documented in this encounter Visit Diagnoses Diagnosis Malignant Neoplasm Of Pancreas Adenocarc inoma (HCC) documented in this encounter Care Teams Senior Field Engineer Relationship Specialty Start Date End Date Aviva Laws APRN, C.N.P., PCP - General Family Medicine 12/11/20 09/23/21 M.S.N. [address] [phone] documented as of this encounter
--- OUTSIDE RECORDS SUMMARY | 2021-11-03 07:03 | XMS_ITS | Encounter Summary ---
:1940 Author Organization [facility] Address [address] [place] [address] Care Team Providers Name Role Phone Aviva Laws APRN C.NChicoP., M.S.N. Primary Care Provider [phone] Reason for Referral MRI/CAT/PET Scan (Routine) - Closed Specialty Diagnoses / Procedures Referred By Contact Refer red To Contact Diagnoses Malignant Neoplasm Of Pancreas Adenocarcinoma (HCC) Yung Bills M.D. [facility] Procedures PET CT Skull to Thigh FDG PET CT Skull to Thigh FDG [address] [place], [place] [address] Referral ID Status Reason Start Date Expiration Date Visits Requ ested Visits Authorized [id number] Closed 06/23/2021 06/23/2022 1 1 Outpatient (Routine) - Closed Specialty Diagnoses / Procedures Referred By Contact Refer red To Contact Radiation Oncology Deisi Vaughn P.A.-C., [facility] M[address] [place] [address] Referral ID Status Reason Start Date Expiration Date Visits Requ ested Visits Authorized [id number] Closed 06/23/2021 06/23/2022 1 1 Reason for Visit Appointment Request (Routine) - Closed Specialty Diagnoses / Procedures Referred By Contact Refer red To Contact Radiation Oncology Diagnoses Malignant Neoplasm Of Pancreas Adenocarcinoma (HCC) Daniel Vieira M.D. [address] [place] [address] Referral ID Status Reason Start Date Expiration Date Visits Requ ested Visits Authorized [id number] Closed 06/14/2021 06/14/2022 1 1 Encounter Details Date Type Department Care Team Description 06/23/2021 Hospital Encounter Department of Vi Bills Neoplasm Of Radiation Oncology Yung Phillips M.D. Pancreas Adenocarcinoma in [address] (HCC) (Primary Dx) [place], [place] [address] [facility] [address] [place], [place] [phone] (Work) [phone] Social History Tobacco Use Types Packs/Day Years [...] More than 4 times per year 06/19/2021 latter day services? Do you belong to any clubs [...] Sign Reading Time Taken Comments Blood Pressure 116/63 06/23/2021 9:07 AM CDT Pulse 101 06/23/2021 9:07 AM CDT Temperature 36.4 ??C (97.6 ??F) 06/23/2021 9:07 AM CDT Respiratory Rate - - Oxygen Saturation - - Inhaled Oxygen Concentration - - Weight 51.7 kg (113 lb 15.7 oz) 06/23/2021 9:07 AM CDT Height - - Body Mass Index 18.74 01/26/2021 1:18 PM CDT documented in this encounter Medications at Time of Discharge Medication Sig Dispensed Refills Start Date End Date [id number]-[id number]-copper-m Take by mouth. 0 021 angan (Citracal-D3 Taking 3-4 daily Maximum Plus) 325 mg-12.5 mcg -2.75 mg tablet ESTRIOL MICRONIZED, Three Times Weekly 0 03/17/20 20 BULK, MISC ketoconazole (NIZORAL) 2 MASSAGE INTO TO 0 [...] % cream calcitRIOL (ROCALTROL) Take 2 capsules 180 capsule [...] 4 (four) per tablet times a day. hhuqgc-gufopcka-biesgqs Take 2 capsules by 360 capsule 3 07/27/2021 (CREON) mouth 3 (three) 24,000-76,000-120,000 times a day with Unit per DR capsule meals. lisinopriL Take 20 mg by 0 04/10/2020 09/24/2021 (PRINIVIL,ZESTRIL) 20 mg mouth. tablet NON Estriol 0.3% 30 g 11 07/03/2017 [...] for Pancreas Adenocarcinoma nausea or vomiting. (HCC) LORazepam (ATIVAN) 0.5 Take 1 tablet (0.5 30 tablet 3 06/0709/16/2021 mg tabletIndications: mg total) by mouth Malignant Neoplasm Of every 8 (eight) Pancreas Adenocarcinoma hours as needed (HCC) (nausea, vomiting) for up to 30 doses. If ineffective, may repeat once after 30 minutes. documented as of this encounter Consult Notes Deisi Vaughn P.A.-C., M.S. - 06/23/2021 9:15 AM CDT SUBJECTIVE REQUESTING PROVIDER Daniel Vieira M.D. REASON FOR CONSULT 1. Malignant Neoplasm Of Pancreas Adenocarcinoma (HCC) SUPERVISED BY: Yung Bills M.D. ([phone]) HISTORY OF PRESENT ILLNESS Mrs. Azeb العراقي is a 81-year-old female with locally advanced, node positive pancreatic cancer, who presents today for an opinion regarding the role of radiation therapy in the management of thepatient's disease. Her oncologic history is as follows: Oncology History Malignant Neoplasm Of Pancreas Adenocarcinoma [...] and the Common Hereditary Cancers panel from [facility] genetics lab. 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 06/08/2020 - 01/18/2021 Chemotherapy FOLFIRINOX ( Fluorouracil / Leucovorin / Irinotecan / Oxaliplatin ) Start Date: 06/08/2020 15 cycles completed in [place] under the care of Dr. Vivar. 01/26/2021 [...] ) Cycles 16 - [address] [facility] under the care of [facility] Medical Oncology providers. 05/12/2021 Imaging Ultrasound of [...] Stable position of the internal biliary stent. 07/07/2021 - Radiation Therapy Radiation Therapy Treatment Details (Noted on 06/22/2021) Site: Pancreas Technique: No technique specified Goal: Curative Planned Treatment Start Date: 07/07/2021 INTERVAL HISTORY The patient was seen and examined today with Dr. Bills. The patient reports fatigue rated 5/10 in severity. She reports increased fatigue in the mornings that improves some in the afternoons. She reports that her stomach hurts and she rates her pain as 3/10in severity. She also reports abdominal discomfort with bowel movements. She takes Tylenol for pain,up to two tablets per day. She does not take Tylenol daily. She averages at least one bowel movementper day. She denies rectal bleeding. She denies fecal incontinence. She reports good urination. She reports decreased appetite overall. She reports that she has still work to maintain good nutritional and fluid intake. Her weight has been stable. She denies nausea or vomiting. She denies feeling dizzyor lightheaded. The patient denies a history of prior radiation therapy, connective tissue disorders, or inflammatory bowel disease. Her ECOG performance status is 1. REVIEW OF SYSTEMS Review of systems was negative except as documented above. PATIENT REPORTED SYMPTOM SCREEN FATIGUE (Scale: 0 = no fatigue; 10 = worst fatigue you can imagine): 5 PAIN (Scale: 0 = no pain; 10 = worst pain you can imagine): 3 OVERALL QUALITY OF LIFE (Scale: 0 = as bad as can be; 10 = as good as can be): 4 PAST MEDICAL HISTORY Past Medical History: Diagnosis Date ??? Cataract ??? Hypertension NOS ??? Hypothyroidism ??? Keratosis Actinic 12/28/2011 ??? Keratosis Seborrheic 08/29/2007 ??? Malignant Neoplasm Of Pancreas Adenocarcinoma (HCC) 06/03/2020 ??? Nevi Multiple 03/26/2014 ??? Nevus Choroid Left ??? Osteopenia ??? Polyp Colon ??? 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 APPENDECTOMY 1960 ??? BLEPHAROPLASTY Bilateral 02/2004 ??? DILATATION AND CURETTAGE FAMILY HISTORY Family History Problem Relation Age of Onset ??? Colon cancer Mother Thyroid, stomach and uterine cancers ??? Cataracts Mother ??? Thyroid cancer Mother In her 40s ??? Other cancer Mother Stomach cancer, colon cancer ??? Coronary artery disease Mother ??? Hypertension Mother ??? Thyroid disease Mother ??? Arthritis Mother ??? Colon cancer Maternal Grandmother Probably in her 60s ??? Retinal detachment Father's Sister ??? Leukemia Father ??? Skin cancer Father 60s SOCIAL HISTORY Social History Socioeconomic History ??? Marital status: Spouse name: Will ??? Number of children: 2 ??? Highest education level: Some college, no degree Occupational History Employer: RETIRED Tobacco Use ??? Smoking status: Never Smoker ??? Smokeless tobacco: Never Used ??? Tobacco comment: None Vaping Use ??? Vaping Use: never used Substance and Sexual Activity ??? Alcohol use: Not Currently Alcohol/week: 0.0 standard drinks ??? Drug use: No ??? Sexual activity: Not Currently Partners: Male control/protection: Post-menopausal Social History Narrative . Has 2 boys, 5 grandchildren, and 5 great-grandchildren. Retired. Worked for [employer] in [place]. OBJECTIVE BP 116/63 (BP Location: Right arm, Patient Position: Sitting, Cuff Size: Regular) Pulse 101 Temp36.4 ??C (Temporal) Wt 51.7 kg BMI 18.74 kg/m?? PHYSICAL EXAM General: Patient is alert and oriented in no apparent distress. The patient is here today with her , Will. ASSESSMENT / PLAN #1 Stage III (cT4, cN1, cM0) adenocarcinoma of the pancreatic head #2 Twenty four cycles of FOLFIRINOX completed June 16, 2021 I had a detailed discussion with the patient and and her regarding her pancreatic cancer diagnosis. We reviewed the oncologic history as detailed above. She last received FOLFIRINOX chemotherapy on June 16, 2021. We discussed the option of now proceeding with chemoradiotherapy. Radiation therapy would be delivered in 15 or 25 fractions with concurrent oral capecitabine chemotherapy. Alternatively, the patient is currently scheduled for another cycle of FOLFIRINOX chemotherapy on June 29, 2021 and she could choose to continue on that regimen. I discussed the logistics as well as the acute and chronic side effects of treatment in detail. The acute side effects are common and include fatigue, diarrhea, gaseous bloating/discomfort, skin irritation, pain and/or difficulty with eating, and nausea/vomiting. Long-term side effects could include small- bowel obstruction, ulceration of the stomach or bowel, narrowing of the small bowel, spinal corddamage, kidney damage, liver damage, and secondary cancer as a result of treatment. The patient was provided with a written summary of recommendations. Her questions were answered to their verbalized satisfaction. With regards to nausea/vomiting, the patient reports that she has both ondansetron and prochlorperazine at home. We discussed taking ondansetron prior to radiation treatment each day for prophylaxis and printed directions were provided to the patient on a handout. We discussed the recommendation to wait approximately 3 weeks following her last cycle of FOLFIRINOXchemotherapy prior to proceeding with radiation therapy. Therefore, we discussed scheduling her for CT simulation next week with the plan to initiate radiation therapy the week of July 05, 2021. CT simulation would be performed with oral and IV contrast. The patient has a port for access. Dr. Bills then met with the patient today, please see his attestation for details. After discussion, they agreed to proceed with a PET-CT scan for further evaluation prior to CT simulation. I have placed this order and it has been scheduled for tomorrow, June 24, 2021. We will then schedule for a follow-up visit and CT simulation to be performed on June 28, 2021. I will communicate with the [facility] regarding our plan to proceed with chemoradiation therapy in 15 or 25 fractions starting July 05, 2021, so that her oral capecitabine chemotherapy can be appropriately coordinated. Her FOLFIRINOX infusion on June 29, 2021 will be canceled at this time. The patient was provided with our contact information. She was asked to contact us sooner with questions or concerns. She verbally expressed her understanding of the plan. EDUCATION Ready to learn, no apparent learning barriers were identified; learning preferences include listening. Explained diagnosis and treatment plan; patient expressed understanding of the content. PRIMARY PROVIDER Dr. Allie Dubois personally spent 60 minutes in care of the patient today. Time includes both non face to face and face to face patient care. Signed by: Deisi Vaughn P.A.-C., M.S. 06/23/2021 10:48 AM CDT [facility] [address] [place], [place] [id number] Associated attestation - Yung Bills M.D. - 06/23/2021 11:32 AM CDT I saw and evaluated the patient and participated in the wilkins portions of the service. I reviewed the documentation of Deisi Vaughn P.A.-C. and agree with the findings and plan. Mrs. Aezb العراقي is a 81 y.o. female with locally advanced, node positive pancreatic cancer that has been treated with 24 cycles of FOLFIRINOX . I am asked by Dr. Vieira to evaluate the patient for radiotherapy. Her history is well detailed in Ms. Vaughn's note. She has daily abdominal pain that iswell managed with Tylenol and tramadol. She may take 1 of each a day with good pain relief dropping down from a 5-6/10 to 0/10 typically. Her ECOG performance status is 1. OBJECTIVE PHYSICAL EXAM General: Patient is awake, alert, and oriented to person, place, and time. No apparent distress. Sheis quite slender. She is here today with her Will. ENT: Pupils equal, round, and reactive to light. Sclerae anicteric. Oral cavity inspection reveals moist mucous membranes and no visible lesions. Neck: Supple. Lymph: No palpable cervical, supraclavicular, infraclavicular, or axillary adenopathy. Spine: No tenderness to palpation or fist percussion. Lungs: Clear to auscultation bilaterally. Heart: Regular rate and rhythm. Normal S1 and S2. No murmurs. Abdomen: Soft, nontender, nondistended. Hyperactive bowel sounds are present. Extremities: No edema. DIAGNOSTICS Reviewed the patient's imaging and pathology report. ASSESSMENT / PLAN #1 Stage III (cT4, cN1, cM0) adenocarcinoma of the pancreatic head #2 Twenty four cycles of FOLFIRINOX completed June 16, 2021 I had a detailed discussion with the patient and her regarding the risks, benefits, and alternatives of radiotherapy in this setting. She has locally advanced disease that is fairly stable on multiple cycles of FOLFIRINOX. She is experiencing worsening neuropathy, so I think that proceeding now with chemotherapy and radiation makes sense especially to allow for a holiday from FOLFIRINOX. I recommend treatment to the pancreatic tumor to a dose of 50 Gy in 25 fractions as a simultaneous integrated boost with larger expansions to the regional lymph nodes to a dose of 45 Gy in 25 fractions. This could also be done potentially in a more hypofractionated approach to a dose of 45 Gy in 15 fractions as an integrated boost with larger expansions to the regional lymph nodes to dose of 37.5 Gy in 15fractions. IMRT is needed so as to spare high radiation dose to the adjacent bowel, bladder, liver, stomach, kidneys, and spinal cord/cauda equina. I agree with Dr. Vieira's recommendation for concurrent Xeloda. CBCs will be obtained at [facility]. She has never had a PET/CT scan. We will obtain one now so that I can more accurately target the areas of metabolically active disease. I discussed the logistics as well as the acute and chronic side effects of treatment in detail. For a complete listing of these, please see Ms. Deweyf's note. The patient will take pretreatment ondansetron to prevent radiation induced nausea and vomiting. She will also limit her oral intake for 2 hours p rior to each daily treatment. After this discussion, I provided the patient with a written summary of my recommendations. Her questions and those of her spouse were answered to their verbalized satisfaction. The patient verbally stated that she would like to proceed with treatment. She will undergo CT simulation on June 28, 2021. It has only been 1 week since her last dose of FOLFIRINOX, so we will endeavor to begin treatment on July 07, 2021. My thanks to Jose Villagran Ma, Helgen, and Ms. Rios for the opportunity to participate in this patient's care. I spent a total of 35 minutes with the patient, 30 minutes of which was spent counseling and coordinating care. Signed by: Yung Bills M.D. 06/23/2021 11:32 AM CDT [facility] [place] documented in this encounter Miscellaneous Notes Addendum Note - Lindsey Fisher C.NMaia - 06/23/2021 9:15 AM CDT Encounter addended by: Lindsey Fisher C.N.A. on: 06/23/2021 12:11 PM Actions taken: Letter saved Addendum Note - Kanwal Ramirez - 06/23/2021 9:15 AM CDT Encounter addended by: Kanwal Ramirez on: 06/23/2021 1:48 PM Actions taken: Order list changed, Diagnosis association updated documented in this encounter Plan of Treatment Upcoming Encounters Date Type Specialty Care Team Description 11/19/2021 Clinical Communication Admitting/Central Scheduling 11/23/2021 Comprehensive Visit Neurology Kenji Zaldivar M.D. [address] [place] [address] Scheduled Referrals Name Type Priority Associated Diagnoses Order S chedu Radiation Oncology Outpatient Referral Routine Ex pected: office visit 06/30/2021 (clinic) (Approximate), Expires: 06/23/2022 documented as of this encounter Results PET CT Skull to Thigh FDG (06/24/2021 3:51 PM CDT) Anatomical Region Laterality Modality Body, Nuclear Medicine PET RST LOS, N/A Posi andi Emission Tomography (PET), PET ARZ LOS, Nuclear Medicine PET FLA Po sitron Emission Tomography (PET) LOS, Nuclear Medicine Specimen (Source) Anatomical Collection Method Collection Time Re ceived Time Location / / Volume Laterality 06/24/2021 4:00 PM CDT Impressions 06/24/2021 5:13 PM CDT Large volume of FDG avid adenocarcinoma within the head and body of the pancreas. No evidence of FDG avid sharlene or distant me tastatic disease. Narrative 06/24/2021 5:13 PM CDT EXAM: ??PET CT SKULL TO THIGH FDG Serum glucose at time of F-18 FDG inject ion was 94 mg/dL. Patient followed standard dietary/fasting requirements for this exam. RADIOPHARMACEUTICAL/MEDS: Route: intravenous fludeoxyglucose F 18 injection ALF (FDG F-18),15.02 millicurie TECHNIQUE: ??F-18 FDG PET/CT scan was pe rformed from the orbits through the thighs with low dose, non-contrast, free-breathing CT images f or attenuation correction and anatomic localization (AC/AL), with imaging beginning at approximately 60 minutes after radiotracer injection. COMPARISON: ??12/22/2020 CT chest/abdome n/pelvis. INDICATION: ??Primary complex solid/cyst ic mass in the uncinate process measuring 2.8 x 3.0 cm with retroperitoneal lymphadenopathy secondar y to pancreatic carcinoma. Staging status post chemotherapy. Initial treatment strategy. The patient reports no recent vaccinatio ns. FINDINGS: ??Marked FDG uptake within the pancreatic head cancer anterior to the biliary stent extending into the uncinate process, kaur ges 141-152, compatible with biopsy- proven pancreatic adenocarcinoma. FDG avid foci anterolateral to the bilia ry stent and within the body of the pancreas, images 149-153 concerning for satellite lesions. The previously described aortocaval, louie iac, superior mesenteric artery and splenic artery sharlene metastatic disease is not apparently FDG avid. No evidence of distant metastatic disease. Increasing pneumobilia within the left l obe of the liver. Left [place] fat hernia. Interval placement of a right chest wall infusion port with the tip of central venous catheter in the SVC/RA junction. Marked marrow expansion pattern compatib le with interval chemotherapy. Otherwise the significant incidental PET/CT findings on comparison 12/02/2020 CT scans are unchanged. Procedure Note Luigi Lewis M.D. - 06/24/2021For matting of this note might be different from the original. EXAM: PET CT SKULL TO THIGH FDG Serum glucose at time of F-18 FDG inject ion was 94 mg/dL. Patient followed standard dietary/fasting requirements for this exam. RADIOPHARMACEUTICAL/MEDS: Route: intravenous fludeoxyglucose F 18 injection ALF (FDG F-18),15.02 millicurie TECHNIQUE: F-18 FDG PET/CT scan was perf ormed from the orbits through the thighs with low dose, non-contrast, free-breathing CT images f or attenuation correction and anatomic localization (AC/AL), with imaging beginning at approximately 60 minutes after radiotracer injection. COMPARISON: 12/22/2020 CT chest/abdomen/ pelvis. INDICATION: Primary complex solid/cystic mass in the uncinate process measuring 2.8 x 3.0 cm with retroperitoneal lymphadenopathy secondar y to pancreatic carcinoma. Staging status post chemotherapy. Initial treatment strategy. The patient reports no recent vaccinatio ns. FINDINGS: Marked FDG uptake within the p ancreatic head cancer anterior to the biliary stent extending into the uncinate process, kaur ges 141-152, compatible with biopsy- proven pancreatic adenocarcinoma. FDG avid foci anterolateral to the bilia ry stent and within the body of the pancreas, images 149-153 concerning for satellite lesions. The previously described aortocaval, louie iac, superior mesenteric artery and splenic artery sharlene metastatic disease is not apparently FDG avid. No evidence of distant metastatic disease. Increasing pneumobilia within the left l obe of the liver. Left [place] fat hernia. Interval placement of a right chest wall infusion port with the tip of central venous catheter in the SVC/RA junction. Marked marrow expansion pattern compatib le with interval chemotherapy. Otherwise the significant incidental PET/CT findings on comparison 12/02/2020 CT scans are unchanged. IMPRESSION: Large volume of FDG avid adenocarcinoma within the head and body of the pancreas. No evidence of FDG avid sharlene or distant me tastatic disease. Yung ENGEL NM PROCEDURES documented in this encounter Visit Diagnoses Diagnosis Malignant Neoplasm Of Pancreas Adenocarc inoma (HCC) - Primary Malignant Neoplasm Of Pancreas Adenocarc inoma (HCC) documented in this encounter Care Teams Environmental Services Technician Relationship Specialty Start Date End Date Aviva Laws, LENNOX, C.N.P., PCP - General Family Medicine 12/11/20 09/23/21 M.S.N. [address] [address] documented as of this encounter
--- OUTSIDE RECORDS SUMMARY | 2021-11-03 07:03 | XMS_ITS | Encounter Summary ---
:1940 Author Organization [facility] Address [address] [place] [address] Care Team Providers Name Role Phone Veto Aviva Ruiz APRN, C.N.P., M.S.N. Primary Care Provider +1 [phone] Encounter Details Date Type Department Care Team Description 06/29/2021 Specialty Pharmacy [facility] Gayla Estrada [address] Ravinder Kelsey, Pharm.D., R.Ph. [place], [place] [address] [place] [phone] [place], [place] [phone] (Wo rk) Social History Tobacco Use Types [...] or relatives? How often do you attend yazdanism or More than 4 times per year 06/19/2021 denominational services? Do you belong to any clubs or Yes 06/19/2021 organizations such as yazdanism groups, unions, fraternal or athletic groups, or [...] this encounter Miscellaneous Notes Telephone Encounter - Gayla Estrada, Pharm.D., R.Ph. - 06/29/2021 2:23 PM CDT SUBJECTIVE REASON FOR VISIT Patient counseling and education, via telephone, for new hematology/oncology medication therapy and establishing medication reassessment timeline. HISTORY OF PRESENT ILLNESS Ms. Azeb العراقي is a 81 y.o. female, who is followed by the specialty pharmacy service for capecitabine for pancreatic cancer. Patient baseline rating for quality of life: unable to obtain. OBJECTIVE Lab Results Component Value Date CREATININE 0.6 06/14/2021 No DPYD indicators charted BSA 1.51 m2 ASSESSMENT / PLAN 1. Medication counseling I counseled the patient via phone. Education related to medication: Capecitabine ??? Proper use: we discussed the patient???s dose and the importance of taking within 30 minutes after a meal. The doses should be taken with 8 ounces of water and tablets should be swallowed whole. The doses should be spaced 10-12 hours apart. ??? Timely administration/intake: suggestions to improve adherence-pill box, smartphone applicationsor calendar was recommended. ??? Storage: Room temperature, no special considerations. Keep bottle tightly closed. ??? Side effects: Including, but not limited to: diarrhea, nausea/vomiting, mouth sores, hand/foot syndrome, photosensitivity, fatigue, low blood counts, and infections. ??? Advised patient that other potential Warnings/safety precautions exist: (severe diarrhea, heart attack, and Álvarez-Gianfranco syndrome.) ??? Lifestyle and self -management skills/ Tips to prevent adverse drug reactions: We discussed using Imodium (loperamide) and drinking plenty of fluids to help manage the diarrhea. Patient was educated on how to manage hand/foot syndrome (using thick moisturizing creams, avoiding hot water, avoiding tasks that require strong squeeze/flag football coach, etc.) and they understand that the physician should also be contacted about side effects to avoid further complications. We discussed to watch for fever of 100.5F, chills, over all un-well feeling due to the increased risk of infections. Patient knows to seek medical attention if they have any signs of infection. ??? Interactions (drug/food interactions): Drug interactions referenced in #2 below. Food: Folic acid supplementation. Take within 30 minutes after a meal. ??? Contraindications/ considerations: Females who can become and males with female partners who can become should use effective contraception during treatment as this can cause harm. ??? Educational resource/decision support tools: Unfortunately, since this product has a generic option, the cook helper preserves of the brand name drug, no longer offers information or support programs on their website. See [facility]. The patient was attentive and ready to learn. They verbalized understanding and are in agreement with the plan for taking this new regimen. They were advised to contact the prescriber concerning symptoms or side effects as mentioned above. The importance of adherence to the treatment plan was emphasized in regard to success of therapy. Allergy, past sensitivity, medication and health history considered at general counselor (renal function if available). To optimize outcomes, patient assessed for the need of other possible supportive therapies and informed of importance of proper monitoring and future reassessment. The patient/caregiver's prior education on this new therapy and disease specific knowledge were assessed with counseling and education tailored to this level of understanding. Ibrahim concerns and questions were addressed. Patient specific considerations/desires:None noted at this time. Education done via phone and printed medication materials included with the prescription. The patient/caregiver was encouraged to ask questions or to call the specialty pharmacy with questions they mayhave after reviewing printed material. Specialty pharmacy contact information and disposal information provided in the patient 'Welcome Packet'. No social, environmental, functional or cognitive barriers are apparent. Patient is eligible for service through [facility]. 2. Potential drug-drug interactions No clinically significant drug interactions were identified with capecitabine. Specialty medication(s) reconciled and good eliza attempt made in obtaining a complete medication list (via dispensing program). Patient encouraged to report any new or change of medications (prescribed/over the counter/supplements) to assist in maintaining this list for accuracy. 3. Goals of therapy: Promote medication adherence. Evaluate other newly prescribed therapies as needed for drug-drug and drug- disease appropriateness. Mitigate, treat or prevent side effects. The patient has decided to use the [facility]. This patient meets the definition of *HIGH RISK- requiring BSA dose review*, by [facility] definition and has been flagged as such in the dispensing system. Follow-up: 1 month(s) Gayla Estrada, Pharm.D., R.Ph. documented in this encounter Plan of Treatment Upcoming Encounters Date Type Specialty Care Team Description 11/19/2021 Clinical Communication Admitting/Central Scheduling 11/23/2021 Comprehensive Visit Neurology Kenji Zaldivar M.D. [address] [place] [address] documented as of this encounter Visit Diagnoses Not on filedocumented in this encounter Care Teams Glove Presser Relationship Specialty Start Date End Date Aviva Laws APRN, C.N.P., PCP - General Family Medicine 12/11/20 09/23/21 M.S.N. [address] [place] [address] documented as of this encounter
--- OUTSIDE RECORDS SUMMARY | 2021-11-03 07:03 | XMS_ITS | Encounter Summary ---
:1940 Author Organization [facility] Address [address] [place] [address] Care Team Providers Name Role Phone Aviva Laws APRN, C.N.P., M.S.N. Primary Care Provider [phone] [phone] Encounter Details Date Type Department Care Team Description 01/20/2021 Emergency [facility] ED Hemorrhoids (Primary Dx); [address] [place] [phone] Social History Tobacco Use Types Packs/Day Years [...] or relatives? How often do you attend confucianist or More than 4 times per year 06/19/2021 taoism services? Do you belong to any clubs or Yes 06/19/2021 organizations such as confucianist groups, unions, fraternal or athletic groups, or [...] Sig Dispensed Refills Start Date End Date hiidwpg-M2-viry-copper-m Take by mouth. 0 021 angan (Citracal-D3 [...] (HCC) nausea or vomiting (unrelieved by prochlorperazine). calcitRIOL (ROCALTROL) Take 2 capsules 180 capsule [...] 4 (four) per tablet times a day. yhejau-dpzsdhbh-ugwndei Take 2 capsules by 360 capsule 3 [...] Neurology Kenji Zaldivar M.D. [address] [place] [address] documented as of this encounter Procedures Procedure Name Priority Date/Time Associated Comments Diagnosis DX ABDOMEN SUPINE RAD - Semiurgent 01/20/2021 6:19 Pain Rectal Res ults for this AND UPRIGHT 2 (Fast; most ED PM CDT procedure ar e in VIEWS patients; some the results inpatients) section. documented in this encounter Results DX Abdomen Supine and Upright 2 Views (01/20/2021 6:19 PM CDT) Anatomical Region Laterality Modality Abdomen, Abdominal RST LOS, Abdominal ARZ LOS, Right Digital Radiography Abdominal FLA LOS Specimen (Source) Anatomical Collection Method Collection Time Re ceived Time Location / / Volume Laterality 01/21/2021 8:01 AM CDT Impressions 01/21/2021 8:04 AM CDT Nonobstructive bowel gas pattern by plain radiography. Stool in the rectum. If there is persistent moderate or worsening concern for abdominal pathology, consider CT. Presumed pelvic phleboliths. Degenerative change lower lumbar spine. The lower lungs are clear. Limited comparison 12/22/2020 CT. Narrative 01/21/2021 8:04 AM CDT EXAM: DX ABDOMEN SUPINE AND UPRIGHT 2 VIEWS vRad: ??Findings concordant with prelimi christian Mulliganad report. Procedure Note Alexis Dumont M.D. - 01/21/2021Formatt ing of this note might be different from the original. EXAM: DX ABDOMEN SUPINE AND UPRIGHT 2 EWS vRad: Findings concordant with prelimina arelis vRad report. IMPRESSION: Nonobstructive bowel gas pattern by plai n radiography. Stool in the rectum. If there is persistent moderate or worsening concern for abdominal pathology, consider CT. Presumed pelvic phleboliths. Degenerative change lower lumbar spine. The lower lungs are clear. Limited comparison 12/22/2020 CT. Alyssa A de Brandon SALES WAREHOUSE DRIVER, R.N. IMG DIAGNOSTIC IMAGING PROCEDURES documented in this encounter Visit Diagnoses Diagnosis Hemorrhoids - Primary Pain Rectal documented in this encounter Care Teams Beading Sawyer Relationship Specialty Start Date End Date Aviva Laws APRN, C.N.P., PCP - General Family Medicine 12/11/20 09/23/21 M.S.N. [address] [address] documented as of this encounter
--- OUTSIDE RECORDS SUMMARY | 2021-11-03 07:03 | XMS_ITS | Encounter Summary ---
:1940 Author Organization [facility] Address [address] [place] [address] Care Team Providers Name Role Phone Aviva Laws APRN C.NChicoPChico, M.S.N. Primary Care Provider [phone] [phone] Reason for Referral Outpatient (Routine) - Authorized Specialty Diagnoses / Procedures Referred By Contact Refer red To Contact Diagnoses Malignant Neoplasm Of Pancreas Adenocarcinoma (HCC) Yung Bills M.D. [address] [place] [phone] Referral ID Status Reason Start Expiration Visits Visits Date Date Requested Authorized [id number] Authorized Service not 06/22/2021 06/22/2022 1 1 available in [facility] Specialty Diagnoses / Procedures Referred By Contact Refer red To Contact Deisi Vaughn P.A.-C ., M.S. [facility] Region [address] [place] [phone] Referral ID Status Reason Start Date Expiration Date Visits Requ ested Visits Authorized Outpatient (Routine) - Authorized Specialty Diagnoses / Procedures Referred By Contact Refer red To Contact Radiation Oncology Yung Bills M .D. [facility] Region [address] [place] [phone] Referral ID Status Reason Start Date Expiration Date Visits V isits Requested Authorized [id number] Authorized 06/22/2021 06/22/2022 10 10 Radiation Therapy (Routine) - Authorized Specialty Diagnoses / Procedures Referred By Contact Refer red To Contact Diagnoses Malignant Neoplasm Of Pancreas Adenocarcinoma (HCC) Yung Bills M.D. [facility] Procedures Management Visit [address] [place], [place] [address] Referral ID Status Reason Start Date Expiration Date Visits V isits Requested Authorized [id number] Authorized 06/22/2021 06/22/2022 10 10 Radiation Therapy (Routine) - Authorized Specialty Diagnoses / Procedures Referred By Contact Refer red To Contact Diagnoses Malignant Neoplasm Of Pancreas Adenocarcinoma (HCC) Yung Bills M.D. [facility] Procedures Prior Auth Rad Tx [address] [place], [place] [address] Referral ID Status Reason Start Date Expiration Date Visits V isits Requested Authorized [id number] Authorized 06/22/2021 06/22/2022 1 1 Radiation Therapy (Routine) - Closed Specialty Diagnoses / Procedures Referred By Contact Refer red To Contact Diagnoses Malignant Neoplasm Of Pancreas Adenocarcinoma (HCC) Yung Bills M.D. [facility] Procedures Initial Rad Onc Treatment Planning CT Simulation [address] [place], [place] [address] Referral ID Status Reason Start Date Expiration Date Visits Requ ested Visits Authorized [id number] Closed 06/22/2021 06/22/2022 1 1 Encounter Details Date Type Department Care Team Description 06/22/2021 Orders Only Department of Deisi Vaughn Malignant [place] plasm Of Radiation Oncology in P.A.-C., M .S. Pancreas [place] [address] (HCC) (Primary Dx) [address] [place] [address] Social History Tobacco Use Types Packs/Day [...] or relatives? How often do you attend caodaism or More than 4 times per year 06/19/2021 orthodox services? Do you belong to any clubs or Yes 06/19/2021 organizations such as caodaism groups, unions, fraternal or athletic groups, or [...] Neurology Kenji Zaldivar M.D. [address] [place] [address] Scheduled Orders Name Type Priority Associated Diagnoses Order S chedule Prior Auth Rad Tx Radiation Routine Malignant Neoplasm Of O rdered: 06/22/2021 Oncology Pancreas Adenocarcinoma (HCC) Management Visit Radiation Routine Malignant Neoplasm Of 10 Occurrences Oncology Pancreas starting 2021 Adenocarcinoma (HCC) until 0 06/22/2022 Scheduled Referrals Name Type Priority Associated Diagnoses Order S chedule Radiation Outpatient Routine 10 Occurrences Oncology nurse Referral starting 05/26 visit (clinic) until 023 Radiation Outpatient Routine Malignant Neoplasm Of Expect ed: Oncology - Nurse Referral Pancreas 06/22/2021 education visit Adenocarcinoma (HCC) (Neo roximate), (clinic) Expires: 2022 documented as of this encounter Results Initial Rad Onc Treatment Planning CT Simulation (06/28/2021 3:38 PM CDT) Specimen (Source) Anatomical Location Collection Method / Collectio n Time Received Time / Laterality Volume Narrative AYSE WALTER - 06/28/2021 3:38 PM CDT Diane Perez, RTT ? 06/28/2021 ??3:40 PM Initial Rad Onc Treatment Planning CT Si mulation Date/Time: 06/28/2021 3:38 PM Performed by: Yung Bills M.D. Authorized by: Yung Bills M.D. Yung Bills M.D. RADIATION ONCOLOGY ORDERABLE S Performing Organization Address City/State/ZIP Code Phon e Number [facility] documented in this encounter Visit Diagnoses Diagnosis Malignant Neoplasm Of Pancreas Adenocarc inoma (HCC) - Primary Malignant Neoplasm Of Pancreas Adenocarc inoma (HCC) documented in this encounter Care Teams Emergency Doctor Relationship Specialty Start Date End Date Aviva Laws APRN, C.N.P., PCP - General Family Medicine 12/11/20 09/23/21 M.S.N. [address] [place] [address] documented as of this encounter
--- OUTSIDE RECORDS SUMMARY | 2021-11-03 07:03 | XMS_ITS | Encounter Summary ---
:1940 Author Organization [facility] Address [address] [place] [address] Care Team Providers Name Role Phone Aviva Laws APRN, C.N.P., M.S.N. Primary Care Provider +1 [phone] Encounter Details Date Type Department Care Team Description 02/05/2021 Orders Only Department of Oncology in Daniel Vieira M.D. [place], [place] [address] [facility] [address] [place] [phone] (Wo rk) Social History Tobacco Use Types [...] place to sleep or slept in a fci (including now)? Education Answer Date Recorded What [...] Visit Neurology Kenji Zaldivar M.D. [address] [place] [address] documented as of this encounter Visit Diagnoses Not on filedocumented in this encounter Care Teams Family Physician Relationship Specialty Start Date End Date Aviva Laws, LENNOX, C.N.P., PCP - General Family Medicine 12/11/20 09/23/21 M.S.N. [address] [place] [address] documented as of this encounter
--- OUTSIDE RECORDS SUMMARY | 2021-11-03 07:03 | XMS_ITS | Encounter Summary ---
:1940 Author Organization [facility] Address [address] [place] [address] Care Team Providers Name Role Phone Aviva Laws APRN, C.NChicoP., M.S.N. Primary Care Provider [phone] [phone] Reason for Referral Outpatient (Routine) - Closed Specialty Diagnoses / Procedures Referred By Contact Refer red To Contact Diagnoses Malignant Neoplasm Of Pancreas Adenocarcinoma (HCC) Neutropenia Chemotherapy Induced (HCC) Hyperbilirubinemia Kimberly Rios APRN, [facility] Procedures FL Fluoro Less Than 1 Hour C.N.P., M.S. [address] [place] [address] Referral ID Status Reason Start Date Expiration Date Visits Requ ested Visits Authorized [id number] Closed 01/26/2021 01/26/2022 1 1 Reason for Visit Outpatient (Routine) - Closed Specialty Diagnoses / Procedures Referred By Contact Refer red To Contact Diagnoses Malignant Neoplasm Of Pancreas Adenocarcinoma (HCC) Neutropenia Chemotherapy Induced (HCC) Hyperbilirubinemia Kimberly Rios APRN, [facility] Procedures FL Fluoro Less Than 1 Hour C.N.P., M.S. [address] [place] [phone] Referral ID Status Reason Start Date Expiration Date Visits Requ ested Visits Authorized [id number] Closed 01/26/2021 01/26/2022 1 1 Encounter Details Date Type Department Care Team Description 01/26/2021 Hospital Department of [facility], Malignant Neop lasm Of Pancreas Adenocarcinoma (HCC); Encounter Radiology, Gonda Kimberly L, Neutropenia Chemotherapy Induced (HCC); Building, in [place] HIGHN[place], Hyperbilirubin pa Obrien M.S. [place] [address] [facility] [address] [place] [phone] Social History Tobacco Use Types Packs/Day Years [...] or relatives? How often do you attend pentecostal or More than 4 times per year 06/19/2021 yazidi services? Do you belong to any clubs or Yes 06/19/2021 organizations such as pentecostal groups, unions, fraternal or athletic groups, or [...] Sig Dispensed Refills Start Date End Date hjwuwct-L3-vkmw-copper-m Take by mouth. 0 021 angan (Citracal-D3 [...] (HCC) nausea or vomiting (unrelieved by prochlorperazine). amoxicillin-pot Take 1 tablet (500 10 tablet 0 01/26/2021 1 04/02/2020 clavulanate (AUGMENTIN) mg total) by mouth 500-125 mg per tablet every 12 (twelve) hours for 5 days. Starting with first dose this evening. calcitRIOL (ROCALTROL) Take 2 capsules 180 capsule [...] 4 (four) per tablet times a day. ynhrmw-dofqcqlo-fksjhxa Take 2 capsules by 360 capsule 3 [...] Neurology Kenji Zaldivar M.D. [address] [place] [address] documented as of this encounter Procedures Procedure Name Priority Date/Time Associated Diagnosis Comme nts FL FLUORO LESS Routine 01/26/2021 2:54 PM Malignant Neoplasm O f Results for this THAN 1 HOUR CDT Pancreas Adenocarcinoma proc edure are in (HCC) the results Neutropenia section. Chemotherapy Induced (HCC) Hyperbilirubinemia documented in this encounter Results FL Fluoro Less Than 1 Hour (01/26/2021 2:54 PM CDT) Specimen (Source) Anatomical Location Collection Method / Collectio n Time Received Time / Laterality Volume Narrative ERCP LOS RST - 01/26/2021 2:57 PM CDT This exam does not require a radiologist review or interpretation. Please refer to the patient's medical record on this date for clinical details. Harleen Rudolph APRN.N.Hossein., M.S. IMG FLUOROSCOPY AK OCEDURES Performing Organization Address City/State/ZIP Code Phon e Number ERCP LOS RST documented in this encounter Visit Diagnoses Diagnosis Malignant Neoplasm Of Pancreas Adenocarc inoma (HCC) Neutropenia Chemotherapy Induced (HCC) Hyperbilirubinemia documented in this encounter Care Teams Director Of Corporate Responsibility Relationship Specialty Start Date End Date Aviva Laws APRN, C.N.P., PCP - General Family Medicine 12/11/20 09/23/21 M.S.N. [address], [place] [phone] documented as of this encounter
--- OUTSIDE RECORDS SUMMARY | 2021-11-03 07:03 | XMS_ITS | Encounter Summary ---
:1940 Author Organization [facility] Address [address] [place] [address] Care Team Providers Name Role Phone Aviva Laws APRN, C.N.P., M.S.N. Primary Care Provider [phone] [phone] Reason for Visit Reason Comments Sx-constipation Encounter Details Date Type Department Care Team Description 01/20/2021 Clinical Communication Department of Andrew Sx- constipation Oncology in Shilo Cespedes [place], [address] [place], [place] [address] [place] [address] [place] [address] Social History Tobacco Use Types Packs/Day Years [...] or relatives? How often do you attend yarsanism or More than 4 times per year 06/19/2021 oriental orthodox services? Do you belong to any clubs or Yes 06/19/2021 organizations such as yarsanism groups, unions, fraternal or athletic groups, or [...] this encounter Miscellaneous Notes Telephone Encounter - Selin Sheldon R.N. - 01/20/2021 1:51 PM CDT SUBJECTIVE CHIEF COMPLAINT / REASON FOR CALL Sx-constipation ASSESSMENT Mrs. العراقي received FOLFIRINOX on 01/18/21 at [facility]. She reports she has been constipated since which is very unusual for her. Normally she has diarrhea right away on her chemotherapy days. She has not had any changes to her diet and continues to hydrate. She did take a Dulcolax tablet this morning hoping for results. She has been having some leakage. She has painful swelling in the rectal area as well. PLAN I have recommended Mrs. العراقي be evaluated at the local Emergency Department as I am concerned about an obstruction with the sudden onset of constipation, pain and swelling. She is agreeable to this plan and will proceed to the Emergency Department in [place]. Disposition/Recommendation: recommended to report to the nearest emergency department. Information/Education: patient/caller able to teach back. Caller agreeable to plan of care: yes. The following references were used: nursing clinical judgement. Telephone Encounter - Pema Haddad Judith - 01/20/2021 11:24 AM CDT Do we have a valid auth to speak with caller? yes Reason for call: Monday had chemo and now she is constipated and miserable. Usually she has diarrheaafter her treatments so she's not sure if she was given something different? She has the urge to go,but can't and has now developed a hemorrhoid. Thank you, Vani RST ONC [employer] POD 1 documented in this encounter Plan of Treatment Upcoming Encounters Date Type Specialty Care Team Description 11/19/2021 Clinical Communication Admitting/Central Scheduling 11/23/2021 Comprehensive Visit Neurology Kenji Zaldivar M.D. [address] [place] [address] documented as of this encounter Visit Diagnoses Not on filedocumented in this encounter Care Teams Group Sales Representative Relationship Specialty Start Date End Date Aviva Laws APRN, C.N.P., PCP - General Family Medicine 12/11/20 09/23/21 M.S.N. [address] [place] [phone] documented as of this encounter
--- OUTSIDE RECORDS SUMMARY | 2021-11-03 07:03 | XMS_ITS | Encounter Summary ---
:1940 Author Organization [facility] Address [address] [place] [address] Care Team Providers Name Role Phone Veto Aviva Ruiz APRN, C.N.P., M.S.N. Primary Care Provider [phone] Reason for Visit Reason Onset Date Comments Outpatient COVID-19 Testing 01/22/2021 Encounter Details Date Type Department Care Team Description 01/22/2021 External Outreach Department of French Medrano And Internal Medicine in [place] (Suspected) Exposure [place], [place] [address] To COVID-19 (Primary [address] [place], [place] Dx) [place] [phone] Social History Tobacco Use Types Packs/Day Years [...] or relatives? How often do you attend sikh or More than 4 times per year 06/19/2021 jewish services? Do you belong to any clubs or Yes 06/19/2021 organizations such as sikh groups, unions, fraternal or athletic groups, or [...] documented as of this encounter Progress Notes Tracie Sandoval - 01/22/2021 12:45 PM CDT Encounter created for infectious disease screening. documented in this encounter Plan of Treatment Upcoming Encounters Date Type Specialty Care Team Description 11/19/2021 Clinical Communication Admitting/Central Scheduling 11/23/2021 Comprehensive Visit Neurology Kenji Zaldivar M.D. [address] [place] [phone] documented as of this encounter Procedures Procedure Name Priority Date/Time Associated Diagnosis Comme nts SARS CORONAVIRUS-2 Routine 01/23/2021 10:10 AM Contact With An d Results for this RNA, V CDT (Suspected) Exposure procedu re are in To COVID-19 the results section. documented in this encounter Results SARS Coronavirus-2 RNA, V Asymptomatic (01/23/2021 10:10 AM CDT) [facility] Method Time Signature SARS-CoV-2 Swab, 01/23/2021 MKTO Specimen Nasopharynx 10:56 PM Source CDT SARS CoV-2 Undetected Undetected 01/23/2021 LUISA RNA, TMA 10:56 PM CDT Comment: SARS-CoV-2 RNA absent. This result does not rule out COVID-19 in the patient, as the sensitivity of the test depends o n the timing of the specimen collection and the quality of the specim en. Result should be correlated with patient's history and clinical presentat ion. ----ADDITIONAL INFORMATION---- This molecular amplification test was pe rformed using the Aptima SARS-CoV-2 assay ([employer] on the [place] tem under emergency use authorization (EUA) by the U.S. Food and Drug Administ ration. Fact sheets for this EUA assay can be fo und at the following links: For Healthcare Providers: https://www.[employer] a.gov/media/939613/download For Patients: https://www.fda.gov/media/ 611448/download Specimen Anatomical Collection Method Collection Time Receive d Time (Source) Location / / Volume Laterality Varies 01/23/2021 10:10 01/23/2021 5:03 (Nasopharynx) AM CDT PM CDT French Medrano D.O. LAB MICROBIOLOGY - GENERAL O [facility] Organization Address City/State/ZIP Code Phon e Number [facility]- [address] [place] [id number] [place] [address] [place] [address] [address] documented in this encounter Visit Diagnoses Diagnosis Contact With And (Suspected) Exposure To COVID-19 - Primary documented in this encounter Additional Health Concerns Infection Onset Date Last Indicated Resolved Time COVID19 Pending 01/22/2021 01/22/2021 01/22/2021 10:33 AM CDT COVID19 Pending 01/22/2021 01/23/2021 01/23/2021 10:57 PM CDT documented as of this encounter Care Teams Revenue Stamp Cutter Relationship Specialty Start Date End Date Aviva Laws APRN, C.N.P., PCP - General Family Medicine 12/11/20 09/23/21 M.S.N. [address] [place] [address] documented as of this encounter
--- OUTSIDE RECORDS SUMMARY | 2021-11-03 07:03 | XMS_ITS | Encounter Summary ---
:1940 Author Organization [facility] Address [address] [place] [address] Care Team Providers Name Role Phone Aviva Laws APRN [place], M.S.N. Primary Care Provider [phone] Reason for Referral Outpatient (Routine) - Closed Specialty Diagnoses / Procedures Referred By Contact Refer red To Contact Radiation Oncology Deisi Vaughn P.A.-C., [facility] [place] [address] [place] [phone] Referral ID Status Reason Start Date Expiration Date Visits Requ ested Visits Authorized [id number] Closed 06/23/2021 06/23/2022 1 1 Reason for Visit Outpatient (Routine) - Closed Specialty Diagnoses / Procedures Referred By Contact Refer red To Contact Radiation Oncology Deisi Vaughn P.A.-C., [facility] [address] [place] [phone] Referral ID Status Reason Start Date Expiration Date Visits Requ ested Visits Authorized [id number] Closed 06/23/2021 06/23/2022 1 1 Encounter Details Date Type Department Care Team Description 06/28/2021 Hospital Encounter Department of Vi Bills Neoplasm Of Radiation Oncology Yung Phillips M.D. Pancreas Adenocarcinoma in [facility] [address] [place] [address] (HCC) (Primary Dx) [place], [place] [address] [facility] [address] [place], [place] [phone] (Work) [phone] Social History Tobacco Use Types Packs/Day Years [...] More than 4 times per year 06/19/2021 sabianist services? Do you belong to any clubs [...] Sign Reading Time Taken Comments Blood Pressure 148/81 06/28/2021 1:22 PM CDT Pulse 94 06/28/2021 1:22 PM CDT Temperature 36 ??C (96.8 ??F) 06/28/2021 1:22 PM CDT Respiratory Rate - - Oxygen Saturation - - Inhaled Oxygen Concentration - - Weight 49.4 kg (108 lb 14.5 oz) 06/28/2021 1:22 PM CDT Height - - Body Mass Index 17.91 01/26/2021 1:18 PM CDT documented in this encounter Medications at Time of Discharge Medication Sig Dispensed Refills Start Date End Date ycczkpg-[id number]-copper-m Take by mouth. 0 021 angan (Citracal-D3 [...] 4 (four) per tablet times a day. yjbqup-dmkqbagl-ynspthp Take 2 capsules by 360 capsule 3 [...] 30 minutes. documented as of this encounter Progress Notes Jin Cash M.D., M.S. - 06/28/2021 1:30 PM CDT RADIATION ONCOLOGY RETURN VISIT Supervising Masonry Supervisor: Dr. Yung Bills SUBJECTIVE History of present illness Azeb العراقي is a 81 y.o. 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 Please see documentation by Deisi Vaughn and Dr. Yung Bills on 06/23/2021 for initial consultation. Since the patient was last seen in radiation oncology she reports an increase in her pain over the last two days. She describes the pain as cramping, originating in her right upper quadrant. It is more intense over the last couple of days and has not improved as usual with tramadol, which she generallytakes in the morning and occasionally afternoon. She reports ongoing significant fatigue (3-5 naps per day) and neuropathy. Pertinent past medical history, past surgical history, medications, allergies, social history, and family history were reviewed. Review of systems Review of systems as noted in HPI. OBJECTIVE Physical exam Weight: 49.4 kg Temp: 96.8 Pulse: 94 BP: 148/91 General: Thin, pleasant, in no acute distress, ambulates without assistive device. Fatigue: 5 Pain: 5 Quality of life: [address] on 06/24/2021: FDG avid mass in the head and body of the pancreas with upstream ductal dilatation. No evidence FDG avid sharlene or distant metastatic disease. ASSESSMENT AND PLAN #1 Primary malignant neoplasm of the pancreas Ms. العراقي is a 81 y.o. 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 In the interim since her consultation appointment, she completed a PET-CT scan which demonstrated no new distant metastatic disease, and only the pancreatic primary is metabolically active (no FDG avid lymph nodes). She is scheduled for CT simulation later today with oral and IV contrast. Her capecitabine has been ordered, and she is awaiting arrival of the prescription for the concurrent radiosensitizing chemotherapy. We will plan for initiation of treatment on 07/05/2021, understanding that this treatment startdate may need to be delayed if her chemotherapy does not arrive. We reviewed that treatment will consist of 15 or 25 fractions depending on normal tissue constraints. All questions were answered to the patient's satisfaction. Our departmental contact information was provided to the patient and she was encouraged to contact the Department of Radiation Oncology with further questions or concerns. Dr. Yung Bills is the systems security consultant; please see his attestation for further details. Jin Cash M.D., M.S. Associated attestation - Yung Bills M.D. - 06/28/2021 5:24 PM CDT I saw and evaluated the patient and participated in the wilkins portions of the service. I reviewed the documentation of Jin Cash M.D. and agree with the findings and plan. The patient appears well on exam. She returns today for a CT simulation. She had a PET/CT scan on June 24, 2021 that showed disease localized to the head of the pancreas with no other areas of disease. We again discussed combinedmodality treatment utilizing intensity modulated radiotherapy and oral capecitabine. The patient's questions and those of her spouse were answered to their verbalized satisfaction. She stated she wouldlike to proceed with treatment and signed the consent form. She understands that she will need to take pre-treatment Zofran and to limit her oral intake for 2 hours prior to each treatment. She will have a CT simulation with oral and IV contrast today and we will plan to begin treatment on Monday, July 05, 2021. She will contact us if she would has not received capecitabine prior to that date. The patient and her spouse verbalized satisfaction with this plan. I spent a total of 10 minutes with the patient all of which was spent in counseling and coordinatingcare. Signed by: Yung Bills M.D. 06/28/2021 5:24 PM CDT [facility] Radiation Therapy [facility] documented in this encounter Miscellaneous Notes Addendum Note - Lindsey Fisher, C.N.A. - 06/28/2021 1:08 PM CDT Encounter addended by: Lindsey Fisher C.N.A. on: 06/29/2021 7:50 AM Actions taken: Letter saved Addendum Note - Jin Cash M.D., M.S. - 06/28/2021 1:08 PM CDT Encounter addended by: Jin Cash M.D., M.S. on: 06/29/2021 8:18 AM Actions taken: Flowsheet accepted documented in this encounter Plan of Treatment Upcoming Encounters Date Type Specialty Care Team Description 11/19/2021 Clinical Communication Admitting/Central Scheduling 11/23/2021 Comprehensive Visit Neurology Kenji Zaldivar M.D. [address] [place] [address] Scheduled Referrals Name Type Priority Associated Order Schedule Diagnoses Radiation Oncology Outpatient Referral Routine On ce for 1 office visit Occurrences sta rting (clinic) 06/28/2021 unti l 06/28/2021 documented as of this encounter Visit Diagnoses Diagnosis Malignant Neoplasm Of Pancreas Adenocarc inoma (HCC) - Primary documented in this encounter Care Teams Employee Communications Manager Relationship Specialty Start Date End Date Aviva Laws, LENNOX, C.N.P., PCP - General Family Medicine 12/11/20 09/23/21 M.S.N. [address] [place] [phone] documented as of this encounter
--- OUTSIDE RECORDS SUMMARY | 2021-11-03 07:03 | XMS_ITS | Encounter Summary ---
:1940 Author Organization [facility] Address [address] [place] [address] Care Team Providers Name Role Phone Aviva Laws APRN C.N.P., M.S.N. Primary Care Provider [phone] Reason for Referral Specialty Diagnoses / Procedures Referred By Contact Refer red To Contact Aviva Laws APRN, C.N.P., [facility] M.S.N. [address], [place] [address] Referral ID Status Reason Start Date Expiration Date Visits Requ ested Visits Authorized AUTOMATION ENGINEER Encounter Details Date Type Department Care Team Description 05/02/2021 Orders Only [facility] PCP [facility] Aviva Laws, GILMER RN, C.N.P., M.S.N. [address], [place] [phone] (Wo rk) Social History Tobacco Use Types [...] More than 4 times per year 06/19/2021 mormonism services? Do you belong to any clubs or [employer] 06/19/2021 organizations such as yazidi groups, unions, fraSocial Rewards or athletic groups, or school groups? How [...] Visit Neurology Kenji Zaldivar M.D. [address] [place] [phone] Scheduled Referrals Name Type Priority Associated Order Schedule Diagnoses Covid immunization Outpatient Referral Routine Ex pected: office visit Booster 022 (Approximate), Expires: 05/02/2022 documented as of this encounter Visit Diagnoses Not on filedocumented in this encounter Care Teams Quality Assurance Intern Relationship Specialty Start Date End Date Aviva Laws APRN, C.N.P., PCP - General Family Medicine 12/11/20 09/23/21 M.S.N. [address] [place] [address] documented as of this encounter
--- OUTSIDE RECORDS SUMMARY | 2021-11-03 07:03 | XMS_ITS | Encounter Summary ---
:1940 Author Organization [facility] Address [address] [place] [address] Care Team Providers Name Role Phone Veto Aviva Ruiz APRN, C.N.P., M.S.N. Primary Care Provider [phone] [phone] Encounter Details Date Type Department Care Team Description 01/26/2021 Anesthesia Event Division of Gastroenterology Terry rodas, LENNOX, ORACLE SECURITY CONSULTANT [address] [place] [address] in [facility] Katty Bernstein M.D. [address] [place] [address] [address] [place] [address] Anesthesia Record Procedure Summary Procedure Name Responsible Anesthesiologist Anesthesia Start Ti me Anesthesia Stop Time ERCP Terry Choe, SENIOR POWER PLANT OPERATOR, 01/26/21 1343 05/17 1504 ORACLE SECURITY CONSULTANT Events Date Time Event Comment 01/26/2021 1312 1343 An Start Machine/Equipmen t Checked Infection Precautions Foll owed Procedure/Site Verified NPO Sta tus Verified Supine Standard ASA Mon itors Applied 1352 An Induction 1355 An Intubation 1356 Turnover to Proceduralist 1405 Proc Start 1448 Proc Fin 1457 Turnover to ANE Staff 1457 Airway Removal Criteria Met 1457 Extubation/Airway Removed 1457 an stop data 1504 An End I completed my h andoff to the receiving staff during [facility] we 1. Identified the patient 2. Ident ified the responsible provider 3. Revi ewed the pertinent medical history 4. Discussed the surgical course 5. Review ed intra-op anesthesia management and i ssues during anesthesia 6. Set expectati ons for post-procedure period 7. Allowe d opportunity for questions and ac knowledgement of understanding. Name Total fentanyl injection 50 mcg/mL 75 mcg lidocaine 2% (mg) injection 40 mg propofol 10 mg/mL 200 mg propofol 10 mg/mL infusion 308.81 mg succinylcholine 20 mg/mL injection 100 mg ondansetron 4 mg/2 mL injection 4 mg piperacillin-tazobactam IVPB 3.375 g 3.375 g dexamethasone 4 mg/mL injection 4 mg glucagon 1 mg/mL injection 0.5 mg Lactated Ringers Free Drip 800 mL Agents No agents on file. Blood No blood administrations on file. Lines, Drains, and Airways Type Details Placement Removal Implanted Port Single 11/24/20 11/24/20 0000 by Priscila Hamilton M.[place], R.N. ETT Placement Date: 01/26/21 1355 by 01/26/21 1457 b y 01/26/21; Placement Terry Choe D, Terry Brown Time: 1355 (created via SENIOR POWER PLANT OPERATOR, DARA D, SENIOR POWER PLANT OPERATOR, ORACLE SECURITY CONSULTANT procedure documentation); Mask Ventilation: Easy mask; Type: Standard ETT; Single Lumen Tube Size: 6 mm; Cuffed: Yes; Location: Oral; Grade View: Grade 2A; Insertion Attempts: 2; Placement Verification: Bilateral breath sounds, Positive ETCO2, Symmetrical chest wall movement; Airway Comment: Failed intubation attempt with DL, 2B view. Glidescope successful using a 6.0 ETT. Glidescope attempt with 7.0 ETT failed as the laryngeal opening was very small.; Removal Date: 01/26/21; Removal Time: 1456 documented in this encounter Social History Tobacco Use Types Packs/Day Years [...] or relatives? How often do you attend faith or More than 4 times per year 06/19/2021 adventist services? Do you belong to any clubs or Yes 06/19/2021 organizations such as faith groups, unions, frapayworks or athletic groups, or school groups? How [...] PM CDT documented as of this encounter OR Notes Anesthesia Postprocedure Evaluation - Terry Choe APRN, CRNA - 01/26/2021 3:04 PM CDT Patient: Azeb العراقي Procedure Summary Date: 01/26/21 Room / Location: Division of Gastroenterology in [place], [place] Anesthesia Start: 1343 Anesthesia Stop: 1504 Procedure: ERCP Diagnosis: Malignant Neoplasm Of Pancreas Adenocarcinoma (HCC) Neutropenia Chemotherapy Induced (HCC) Hyperbilirubinemia Scheduled Providers: Gloria Lopez APRN, CRNA, D.N.P. Responsible Provider: Terry Choe APRN, CRNA Anesthesia Type: general ASA Status: 3 Anesthesia Type: general Last vitals Vitals Value Taken Time BP 151/79 01/26/21 1500 Temp Pulse 67 01/26/21 1504 Resp 14 01/26/21 1504 SpO2 100 % 01/26/21 1504 Vitals shown include unvalidated device data. Please reference Vitals flowsheet for most recent vital signs. Anesthesia Post Evaluation Patient Disposition: dismissal Cardiovascular status: hemodynamics (HR & BP) acceptable Respiratory status: patent airway with spontaneous effort Temperature: normothermic Oxygen requirements: room air Level of consciousness: sedated but awakens easily Pain score: pain adequately controlled and/or at baseline Post Op nausea/vomiting: none Hydration status: euvolemic Anesthesia Procedure Notes - Terry Choe APRN, CRNA - 01/26/2021 2:03 PM CDTAssociated Order(s): Airway Airway Date/Time: 01/26/2021 1:55 PM Performed by: Terry Choe APRN, CRNA Authorized by: Terry Choe APRN, CRNA Patient location during procedure: OR / Procedure Area PROCEDURE DETAILS: Mask difficulty assessment: easy mask Final airway type: video laryngoscope Laryngeal manipulation: yes Final best view of glottic structures - Cormack/Lehane Score: grade 2A ETT location: oral VL device: glide scope Adult tube size: 6 Adult ETT distance at teeth/gum: 21 Oral tube type: standard ETT Cuffed: yes Number of attempt to successful placement: 2 Airway confirmation: bilateral breath sounds, positive ETCO2 and bilateral chest rise Other previous techniques attempted: none and direct laryngoscopy; intubation Number of other approaches attempted: 1 Previous direct laryngoscopy: best view of glottic structures: grade 2B Additional Comments Failed intubation attempt with DL, 2B view. Glidescope successful using a 6.0 ETT. Glidescope attempt with 7.0 ETT failed as the laryngeal opening was very small. PRE PROCEDURE DETAILS: Pre evaluation for airway management: procedure Urgency: elective Preop assessment of probable difficulty: questionable / suspicious difficult airway Preoxygenation: bag valve mask SEDATION / ANESTHESIA Anesthesia method: anesthesia POST PROCEDURE DETAILS: Procedure outcome: successful Airway event: no complications ATTESTATION STATEMENT Anesthesia Preprocedure Evaluation - Katty Bernstein M.D. - 01/26/2021 1:10 PM CDT Preprocedure Anesthesia & H&P Assessment Procedure Summary Date/Time: 01/26/21 1415 Scheduled providers: Gloria Lopez APRN, Rafa DIAMONDNJasson Procedure: ERCP Diagnosis: Malignant Neoplasm Of Pancreas Adenocarcinoma (HCC) [C25.9] Neutropenia Chemotherapy Induced (HCC) [D70.1] Hyperbilirubinemia [R17] Location: Division of Gastroenterology in [place], [place] Pertinent components of the patient's history including current problem list, medical history, surgical history, family history, social history, medications and allergies were reviewed. Present illnessand pre-op diagnosis were confirmed. The planned surgery / procedure was verified with the patient /legal guardian. 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) Other (+) Onychomycosis OBJECTIVE PHYSICAL EXAMINATION Airway (HEENT) Mallampati: II TM Distance: >3 FB Neck ROM: Full Mouth Opening: >3 cm Upper Lip Bite Test Class: I Cardiovascular Rhythm: Regular Rate: Normal Cardiovascular Assessment: cardiovascular normal Functional Capacity: >4 METS Pulmonary Pulmonary Assessment: Clear General / Constitutional Constitutional Assessment: Normal General State of Health:: healthy appearing and calm Neurological Neurologic Assessment:??alert Dental Normal ASSESSMENT / PLAN ANESTHESIA PLAN ASA: 3 Anesthesia Plan: general Patient seen and allergies reviewed, anesthesia plan and risks discussed directly with patient /legal guardian or through an coronary clinical specialist. The use of blood products not discussed Approval to Proceed: approved for anesthesia Kiel palencia from [place], [place]; BMI 19; HTN; metastatic pancreatic adenocarcinoma; no prior intubation documentation here. MP 2. Plan GETA documented in this encounter Miscellaneous Notes Addendum Note - Dillon Perdue M.D. - 01/26/2021 3:38 PM CDT Addendum created 01/26/21 6358 by iDllon Perdue M.D. Order list changed documented in this encounter Plan of Treatment Upcoming Encounters Date Type Specialty Care Team Description 11/19/2021 Clinical Communication Admitting/Central Scheduling 11/23/2021 Comprehensive Visit Neurology Kenji Zaldivar M.D. [address] [place] [phone] documented as of this encounter Procedures Procedure Name Priority Date/Time Associated Comments Diagnosis LDA ANE ENDOTRACHEAL Routine 01/26/2021 1:55 PM R esults for this AIRWAY CDT procedure are i n the results section. documented in this encounter Results LDA ANE ENDOTRACHEAL AIRWAY (01/26/2021 1:55 PM CDT) Narrative Terry Choe APRN, CRNA - 01/26 1:55 PM CDT Terry Choe APRN, CRNA ? 01/26/2021 ??2:07 PM Airway Date/Time: 01/26/2021 1:55 PM Performed by: Terry Choe APRN, CRNA Authorized by: Terry Choe APR N, CRNA Patient location during procedure: OR / Procedure Area PROCEDURE DETAILS: Mask difficulty assessment: easy mask Final airway type: video laryngoscope Laryngeal manipulation: yes Final best view of glottic structures - Cormack/Lehane Score: grade 2A ETT location: oral VL device: glide scope Adult tube size: 6 Adult ETT distance at teeth/gum: 21 Oral tube type: standard ETT Cuffed: yes Number of attempt to successful placemen t: 2 Airway confirmation: bilateral breath so unds, positive ETCO2 and bilateral chest rise Other previous techniques attempted: non e and direct laryngoscopy; intubation Number of other approaches attempted: 1 Previous direct laryngoscopy: best view of glottic structures: grade 2B Additional Comments Failed intubation attempt with DL, 2B vi ew. ??Glidescope successful using a 6.0 ETT. ??Glidescope attempt with 7.0 E TT failed as the laryngeal opening was very small. ?? PRE PROCEDURE DETAILS: Pre evaluation for airway management: pr ocedure Urgency: elective Preop assessment of probable difficulty: questionable / suspicious difficult airway Preoxygenation: bag valve mask SEDATION / ANESTHESIA Anesthesia method: anesthesia POST PROCEDURE DETAILS: ? Procedure outcome: successful ?? Airway event: no complications ATTESTATION STATEMENT Terry Choe APRN, CRNA ANESTHESIA ORDERABLES documented in this encounter Visit Diagnoses Not on filedocumented in this encounter Administered Medications Inactive Administered Medications - up to 3 most recent administrations Medication Order MAR Action Action Date Dose Rate Site dexAMETHasone injection (DECADRON) Given 01/26/2021 2:12 PM CDT 4 mg intravenous, As needed, Starting on Mon01/26/21 at 1412, Anesthesia Intra-op fentaNYL injection (SUBLIMAZE) Given 01/26/2021 2:40 PM CDT 25 mcg intravenous, As needed, Starting on Mon01/26/21 at 1355, Anesthesia Intra-op Given 01/26/2021 1:52 PM CDT 50 mcg glucagon injection (GlucaGen) Given 01/26/2021 2:35 PM CDT 0.25 mg intravenous, As needed, Starting on Mon01/26/21 at 1420, Anesthesia Intra-op Given 01/26/2021 2:20 PM CDT 0.25 mg lactated ringers New Bag 01/26/2021 1:43 PM CDT intravenous, Continuous Infusion: Per Instructions PRN, Starting on Mon01/26/21 at 1343, Anesthesia Intra-op lidocaine (PF) (cardiac) injection Given 01/26/2021 1:52 PM CDT 40 mg intravenous, As needed, Starting on Mon01/26/21 at 1355, Anesthesia Intra-op ondansetron (PF) injection (ZOFRAN) Given 01/26/2021 2:12 PM CDT 4 mg intravenous, As needed, Starting on Mon01/26/21 at 1412, Anesthesia Intra-op piperacillin-tazobactam in dextrose Given 01/26/2021 2:02 PM CDT 3.375 g (iso-osm) IVPB (ZOSYN) intravenous, Administer over 0.5 Hours, As needed, Starting on Mon01/26/21 at 1402, Anesthesia Intra-op propofol 10 mg/mL infusion Rate/Dose 01/26/2021 2:36 75 mcg/kg/min 2 3.355 (DIPRIVAN) Change PM CDT mL/hr intravenous, Continuous Infusion: Per Instructions PRN, Starting on Mon01/26/21 at 1355, Anesthesia Intra-op New Bag 01/26/2021 1:55 PM CDT 125 mcg/kg/min 38.925 mL/hr propofoL injection (DIPRIVAN) Given 01/26/2021 1:55 PM CDT 50 mg intravenous, As needed, Starting on Mon01/26/21 at 1352, Anesthesia Intra-op Given 01/26/2021 1:52 PM CDT 150 mg succinylcholine (PF) injection (ANECTINE ) Given 01/26/2021 1:52 PM CDT 100 mg intravenous, As needed, Starting on Mon01/26/21 at 1352, Anesthesia Intra-op documented in this encounter Care Teams Ct Technician Relationship Specialty Start Date End Date Aviva Laws APRN, C.N.P., PCP - General Family Medicine 12/11/20 09/23/21 M.S.N. [address] [address] documented as of this encounter
--- OUTSIDE RECORDS SUMMARY | 2021-11-03 07:03 | XMS_ITS | Encounter Summary ---
:1940 Author Organization [facility] Address [address] [place] [address] Care Team Providers Name Role Phone Aviva Laws APRN, C.N.P., M.S.N. Primary Care Provider [phone] [phone] Encounter Details Date Type Department Care Team Description 01/23/2021 Hospital Encounter Department of Laboratory Judith Medrano, Medicine, [facility], in [place], [address] [place], [place] [address] [facility] [address] [place] [address] [phone] Social History Tobacco Use Types Packs/Day Years [...] Sig Dispensed Refills Start Date End Date umovfid-S3-vpou-copper-m Take by mouth. 0 021 angan (Citracal-D3 [...] 4 (four) per tablet times a day. innugn-tawcafar-jfylyjr Take 2 capsules by 360 capsule 3 [...] Visit Neurology Kenji Zaldivar M.D. [address] [place] [address] documented as of this encounter Visit Diagnoses Not on filedocumented in this encounter Additional Health Concerns Infection Onset Date Last Indicated Resolved Time COVID19 Pending 01/22/2021 01/23/2021 01/23/2021 10:57 PM CDT documented as of this encounter Care Teams Ditch Worker Relationship Specialty Start Date End Date Aviva Laws APRN, C.N.P., PCP - General Family Medicine 12/11/20 09/23/21 M.S.N. [address], [place] [address] documented as of this encounter
--- OUTSIDE RECORDS SUMMARY | 2021-11-03 07:03 | XMS_ITS | Encounter Summary ---
:1940 Author Organization [facility] Address [address] [place] [address] Care Team Providers Name Role Phone Aviva Laws APRN C.N.P., M.S.N. Primary Care Provider [phone] [phone] Reason for Referral MRI/CAT/PET Scan (Routine) - Closed Specialty Diagnoses / Procedures Referred By Contact Refer red To Contact Diagnoses Malignant Neoplasm Of Pancreas Adenocarcinoma (HCC) Yung Bills M.D. [facility] Procedures PET CT Skull to Thigh FDG PET CT Skull to Thigh FDG [address] [place] [phone] Referral ID Status Reason Start Date Expiration Date Visits Requ ested Visits Authorized [id number] Closed 06/23/2021 06/23/2022 1 1 Reason for Visit MRI/CAT/PET Scan (Routine) - Closed Specialty Diagnoses / Procedures Referred By Contact Refer red To Contact Diagnoses Malignant Neoplasm Of Pancreas Adenocarcinoma (HCC) Yung Bills M.D. [facility] Procedures PET CT Skull to Thigh FDG PET CT Skull to Thigh FDG [address] [place] [phone] Referral ID Status Reason Start Date Expiration Date Visits Requ ested Visits Authorized [id number] Closed 06/23/2021 06/23/2022 1 1 Encounter Details Date Type Department Care Team Description 06/24/2021 Hospital Encounter Department of Vi Bills Neoplasm Of Radiology, [facility] Pancreas Adenocarcinoma Building, in [address] [place] [address] (HCC) [facility] [address] 200 [facility] [phone] [place], [place] (Work) [address] [phone] Social History Tobacco Use Types Packs/Day Years [...] Sig Dispensed Refills Start Date End Date xkaegqw-O6-njvp-copper-m Take by mouth. 0 021 angan (Citracal-D3 [...] 4 (four) per tablet times a day. zpdwvv-qqdmspzf-wevaspl Take 2 capsules by 360 capsule 3 [...] vomiting. (HCC) documented as of this encounter Nursing Notes Nelda Ruiz R.N. - 06/24/2021 3:00 PM CDT 1400 IVAD Contrast Injection Assessment Details: What type of IVAD? Power 8Fr. Slim Right chest If power???What identifiers were used (2 needed or Rad approval)? ID Card, Ibrahim Chain, or bracelet and 3 Bumps on [place] Shape Septum Tip placement verified? Yes Location:RA CT Chest Date (if applicable): 12-22-20 Blood return verified? yes VAPP Orders (Nurse to use Saline or Heparin post scan): saline and heparin Is patient staying accessed after scan? No documented in this encounter Plan of Treatment Upcoming Encounters Date Type Specialty Care Team Description 11/19/2021 Clinical Communication Admitting/Central Scheduling 11/23/2021 Comprehensive Visit Neurology Kenji Zaldivar M.D. [address] [place] [phone] documented as of this encounter Procedures Procedure Name Priority Date/Time Associated Diagnosis Comme nts PET CT SKULL TO RAD - Routine 06/24/2021 3:51 Malignant Neoplasm Of Results for THIGH (most inpatients PM CDT Pancreas this proced ure and all Adenocarcinoma (HCC) are in the outpatients) results section. documented in this encounter Results PET CT Skull to [...] RADIOPHARMACEUTICAL/MEDS: Route: intravenous fludeoxyglucose F 18 injection SENIOR CARE (FDG F-18),15.02 millicurie TECHNIQUE: ??F-18 FDG PET/CT [...] RADIOPHARMACEUTICAL/MEDS: Route: intravenous fludeoxyglucose F 18 injection SENIOR CARE (FDG F-18),15.02 millicurie TECHNIQUE: F-18 FDG PET/CT [...] MAR Action Action Date Dose Rate Site fludeoxyglucose F 18 Given 06/24/2021 2:12 PM 15.02 millicuries injection SENIOR CARE (FDG F-18) CDT 15.02 millicurie, intravenous, Once, On Laila 06/24/21 at 1430, For 1 dose heparin flush 500 Units Given 06/24/2021 2:12 PM CDT 500 Units Port 500 Units, intra-catheter, As needed, line care, Prior to discharge, Starting on Laila 06/24/21 at 1422, For 1 dose, Implanted Vascular Access Device (IVAD) Venous Non-Valved: Following saline flush prior to discharge. sodium chloride 0.9 % injection 10 mL Given 06/24/2021 2:00 PM CDT 10 mL Port 10 mL, intravenous, As needed, line care, Implanted Vascular Access Device (IVAD) Venous Non-Valved, Starting on Laila 3/31/22 at 1422, Prior to and following infusion, between multiple consecutive infusions, and prior to blood sampling, sodium chloride 0.9 % injection 10 mL Given 06/24/2021 2:12 PM CDT 10 mL Port 10 mL, intravenous, As needed, line care, Prior to discharge, Starting on Laila 06/24/21 at 1422, For 1 dose, Implanted Vascular Access Device (IVAD) Venous Non-Valved: Followed by heparin flush prior to discharge. documented in this encounter Care Teams Ice Guard Inspector Relationship Specialty Start Date End Date Aviva Laws APRN, C.N.P., PCP - General Family Medicine 12/11/20 09/23/21 M.S.N. [address] [address] documented as of this encounter
--- OUTSIDE RECORDS SUMMARY | 2021-11-03 07:03 | XMS_ITS | Encounter Summary ---
:1940 Author Organization [facility] Address [address] [place] [address] Care Team Providers Name Role Phone Aviva Laws APRN, C.N.P., M.S.N. Primary Care Provider [phone] [phone] Encounter Details Date Type Department Care Team Description 01/26/2021 Ancillary Procedure Department of Gastroenterology Social History Tobacco Use Types Packs/Day Years [...] More than 4 times per year 06/19/2021 anabaptism services? Do you belong to any clubs [...] Visit Neurology Kenji Zaldivar M.D. [address] [place] [address] documented as of this encounter Procedures Procedure Name Priority Date/Time Associated Comments Diagnosis GASTROENTEROLOGY IMAGE Routine 01/26/2021 12:35 R esults for this EXAM PM CDT procedure are i n the results section. documented in this encounter Results ERCP-Gastroenterology Image Exam (01/26/2021 12:35 PM CDT) Specimen (Source) Anatomical Collection Method Collection Time Re ceived Time Location / / Volume Laterality 01/26/2021 12:34 PM CDT Narrative [facility] - 01/26/2021 3:27 PM CDT This order has been created and auto-finalized to support the import of images acquired without order. The clini sincere documentation to support these images can be found on the encounter anita t produced images. Provider Not In System IMG NON RAD IMAGING PROCEDUR ES Performing Organization Address City/State/ZIP Code Phon e Number [facility] NA documented in this encounter Visit Diagnoses Not on filedocumented in this encounter Care Teams Supervisor [employer] Relationship Specialty Start Date End Date Aviva Laws APRN, C.N.P., PCP - General Family Medicine 12/11/20 09/23/21 M.S.N. [address] [place] [address] documented as of this encounter
--- OUTSIDE RECORDS SUMMARY | 2021-11-03 07:04 | XMS_ITS | Encounter Summary ---
:1940 Author Organization [facility] Address [address] [place] [address] Care Team Providers Name Role Phone Aviva Laws APRN C.N.PChico, M.S.N. Primary Care Provider [phone] Reason for Visit Outpatient (Routine) - Closed Specialty Diagnoses / Procedures Referred By Contact Refer red To Contact Oncology [facility] 200 [place], [place] [address] Referral ID Status Reason Start Date Expiration Date Visits Requ ested Visits Authorized [id number] Closed 12/14/2020 12/14/2021 1 1 Encounter Details Date Type Department Care Team Description 12/22/2020 Office Visit Department of Kimberly Rios N eoplasm Of Oncology in [place] Phillips C.N.PChico, Pancreas Ad enocarcinoma [facility] (HCC) (Primary Dx) [address] [place] [address] 200 [place] [phone] Social History Tobacco Use Types Packs/Day Years [...] Do you belong to any clubs or [employer] 06/19/2021 organizations such as spiritism groups, unions, [...] Sign Reading Time Taken Comments Blood Pressure 174/93 12/22/2020 10:37 AM CDT Pulse 67 12/22/2020 10:37 AM CDT Temperature 36.2 ??C (97.2 ??F) 12/22/2020 10:34 AM CDT Respiratory Rate 16 12/22/2020 10:34 AM CDT Oxygen Saturation 95% 12/22/2020 10:34 AM CDT Inhaled Oxygen Concentration - - Weight 52.7 kg (116 lb 2.9 oz) 12/22/2020 10:34 AM CDT Height 164.7 cm (5' 4.84) 12/22/2020 10:34 AM CDT Body Mass Index 19.43 12/22/2020 10:34 AM CDT documented in this encounter Progress Notes Kimberly Rios, LEN[place], C.N.P., M.S. - 12/22/2020 10:45 AM CDT SUBJECTIVE PRIMARY CARE PHYSICIAN Aviva Laws APRN, C.N.Hossein., M.S.N. LOCAL ONCOLOGIST No care field marketing team leader to display PRIMARY PANAMA ONCOLOGIST Nova Vivar M.B.B.S. Kimberly Rios APRN, C.N.P., M.S. CHIEF COMPLAINT / REASON FOR VISIT Azeb العراقي is a 80 y.o. 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 Cancer Staging No matching staging information was found for the patient. HISTORY OF PRESENT ILLNESS Oncology History Oncology History Malignant Neoplasm Of Pancreas Adenocarcinoma (HCC) 02/2020 Initial Diagnosis Malignant Neoplasm Of Pancreas Adenocarcinoma (HCC) 1.) February 2020 Started experiencing epigastric abdominal pain occasionally radiating to her back.This was associated with a loss of appetite, 13 lbs weight loss and occasional dry heaves/nausea. 2.) 05/20/2020 CT A/P: Pancreatic neck mixed solid-cystic lesion 1.8 cm. Extensive soft tissue infiltration, likely encasing distal celiac artery, common hepatic artery, and SMA. SMV nearly occluded by soft tissue thickening. Extensive necrotic metastatic lymphadenopathy within the upper abdomen including peripancreatic, aortocaval, left periaortic, and mesenteric lymph nodes was reported ([facility] review). 3.) 05/25/2020 CA 19-9 178 05/28/2020 Biopsy/Pathology EUS findings-Retroperitoneally growing mass extending from the pancreas with infiltration of almostall abutting major arteries and veins. Multiple malignant appearing nodes, ascites, likely omental deposits. No solid hepatic masses seen. Pancreas, Neck, EUS/FNA: Adenocarcinoma Lymph Node, Celiac, EUS/FNA: Metastatic Adenocarcinoma 06/04/2020 Genetic Testing and Tumor Genotyping Attempted [facility] testing: Not enough tissue. Exam canceled. pMMR. 07/20/2020 - discussed re: genetic counselling and BRCA testing. Patient deferred. 11/12/2020: Genetic testing in 2020; Pancreatic Cancer panel and the Common Hereditary Cancers panel from [facility]. 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 06/08/2020 - Chemotherapy FOLFIRINOX ( Fluorouracil / Leucovorin / Irinotecan / Oxaliplatin ) Start Date: 06/08/2020 Interval History Ms. العراقي reports that she has overall been feeling well. She did receive her 1st Neulasta injectionlast treatment in did note some weeks in her back, ankle and shoulder joints. He was taking Claritinbefore and for several days after. Her neuropathy has remained stable mainly in her fingers and barely in her toes. Has not affected her ability to button clothing or walking. She does continue to experience diarrhea which improves towards the end of each cycle of therapy. She is on both Lomotil and Imodium for the diarrhea. She had been on for Creon tablets and over the last 2 weeks has changed thatto 2 tablets with meals and finds that the bloating and abdominal discomfort has improved. She is going to continue with only 2 Creon tablets. Her weight has remained stable and she states that her bowel movements do continue to float but do not appear any different than what they had been when she was taking more Creon tablets. She reports that she had a repeat episode where the tongue became white and in the back of her throat she had a white line thinking it could be thrush. She stated only lasted a couple days. The following portions of the patient's history were reviewed and updated as appropriate: allergies,current medications, family history, medical history, social history, surgical history and problem list. CURRENT MEDICATIONS Current Outpatient Medications on File Prior to Visit Medication Sig Dispense Refill ??? calcitRIOL (ROCALTROL) 0.25 mcg capsule Take 2 capsules (0.5 mcg total) by mouth daily. (Patienttaking differently: Take 0.5 mcg by mouth daily. 2-3 tablets daily depending on calcium level ) 180 capsule 3 ??? ezzmrmj-F2-txbp-copper-marlo (Citracal-D3 Maximum Plus) 325 mg-12.5 mcg - 2.75 mg tablet Take bymouth. Taking 3-4 daily ??? dexAMETHasone (DECADRON) 4 mg tablet TAKE 2 TABLETS BY MOUTH DAILY. TAKE FOR 3 DAYS ON DAYS 2, 3, AND 4. 12 tablet 1 ??? ESTRIOL MICRONIZED, BULK, MISC Three Times Weekly ??? ketoconazole (NIZORAL) 2 % cream MASSAGE INTO TO AFFECTED AREA ON FEET 1-2X DAILY UNTIL RESOLVED ??? levothyroxine (SYNTHROID, LEVOTHROID) 75 mcg tablet ??? lidocaine-prilocaine (EMLA) 2.5-2.5 % cream Apply 1 application topically as needed for pain (30minutes prior to port access). 30 g 0 ??? lisinopriL (PRINIVIL,ZESTRIL) 20 mg tablet Take 20 mg by mouth. ??? loperamide (IMODIUM A-D) 2 mg capsule TAKE 2 CAPS AT ONSET OF DIARRHEA, THEN 1 CAP EVERY 2HRS UNTIL DIARRHEA FREE FOR 12HRS. MAY TAKE 2 CAPS EVERY 4HRS AT NIGHT 48 capsule 1 ??? LORazepam (ATIVAN) 0.5 mg tablet Take 1 tablet (0.5 mg total) by mouth every 8 (eight) hours as needed (nausea, vomiting) for up to 30 doses. If ineffective, may repeat once after 30 minutes. 30 tablet 3 ??? magnesium oxide (MAG-OX) 400 mg (241.3 mg magnesium) tablet Take 400 mg by mouth. Taking 4 tablets daily ??? NON FORMULARY Estriol 0.3% Vaginal Cream, compounded. 1 gram vaginally nightly for 7 days, then 3 nights each week. Disp. 30 g, 11 refills 30 g 11 ??? ondansetron (ZOFRAN) 8 mg tablet Take 1 tablet (8 mg total) by mouth every 8 (eight) hours as needed for nausea or vomiting (unrelieved by prochlorperazine). 30 tablet 3 ??? prochlorperazine (COMPAZINE) 10 mg tablet Take 1 tablet (10 mg total) by mouth every 6 (six) hours as needed for nausea or vomiting. 30 tablet 3 ??? [DISCONTINUED] diphenoxylate-atropine (LOMOTIL) 2.5-0.025 mg per tablet Take 1 tablet by mouth 2(two) times a day. 60 tablet 2 ??? [DISCONTINUED] cnwwbi-pbbznhqg-pzbptuv (CREON) 24,000-76,000-120,[address] capsule Take 4 capsules by mouth 3 (three) times a day with meals. 360 capsule 3 Current Facility-Administered Medications on File Prior to Visit Medication Dose Route Frequency Provider Last Rate Last Admin ??? heparin flush 500 Units 500 Units intra-catheter During hospitalization Lexx Horne M.D. ??? [COMPLETED] iohexoL 300 mg iodine/mL solution 1-200 mL (OMNIPAQUE) 1-200 mL intravenous Once in imaging Lexx Horne M.D. 100 mL at 12/22/20 0724 ??? [COMPLETED] sodium chloride (PF) 0.9 % injection 1-100 mL 1-100 mL intravenous Once Lexx Horne M.D. 50 mL at 12/22/20 0724 ??? sodium chloride 0.9 % injection 10 mL 10 mL intravenous PRN Lexx Horne M.D. 10 mL at 12/22/20 0712 ??? [COMPLETED] sodium chloride 0.9 % injection 10 mL 10 mL intravenous During hospitalization Lexx Horne M.D. 10 mL at 12/22/20 0745 ??? sodium chloride 0.9 % injection 20 mL 20 mL intravenous PRN Lexx Horne M.D. VITALS Vitals: 12/22/20 1037 BP: (!) 174/93 Pulse: 67 Resp: Temp: SpO2: REVIEW OF SYSTEMS Gastrointestinal: Positive for diarrhea. Musculoskeletal: Positive for arthralgias and pain or stiffness in the joints. Neurological: Positive for numbness or shooting pain in hands, arms, legs, or feet. All other systems reviewed and are negative. OBJECTIVE PHYSICAL EXAMINATION General: Well appearing 80 y.o. who is in no apparent distress. Appears to be at ECOG performance status 0 Skin: Non-jaundice. No rashes. Eyes: No scleral icterus Lungs: Nonlabored, absent of a cough. Extremities: No edema Neuro: Alert and oriented x 3. Calm interactive and appropriate. No focal neuro deficits. LABORATORY DATA Lab data reviewed. RADIOLOGICAL DATA Radiology data reviewed. ASSESSMENT / PLAN #1 Malignant Neoplasm Of Pancreas Adenocarcinoma (HCC) Prior to meeting with Ms. العراقي I had the opportunity to review her past medical records, laboratory tests and imaging studies. Per the radiologist they feel that the primary tumor itself may have increased by approximately 9 mm. I have reviewed the images and will review with Dr. Vivar the results. Her tumor marker at her last testing 2 weeks ago was continuing to decline and given the fact that there is no new disease in the rest is relatively stable I think we should proceed with the benefit of the doubt and continue on her present treatment regimen. If Dr. Vivar has a different opinion I will contact her and inform her of that. We will be seeing her back in approximately 2 weeks time. I am not sure if she is experiencing thrush however will give that the benefit of the doubt and try using the salt water rinses followed by nystatin rinse. If despite these interventions it occurs again then this is more than likely not thrush. She has been instructed to swish and swallow at least once a day and then swish and spit at least 3 other times per day. Her white count is quite elevated. I did review with her and her that everyone is different and in the past with an elevated white count I have held the Neulasta support only to have him return2 weeks later and have it too low to proceed with therapy. At the end of our discussion she would like to try going without the Neulasta hoping that in the future it may be something she may require every other treatment. We are also working on transitioning her care to [facility]. She stated full understandingand agreement the plan. Denies any further questions or concerns. Has our telephone number to contact us should they have any further questions or concerns. PATIENT EDUCATION Ready to learn, no apparent learning barriers were identified; learning preferences include listening. Explained diagnosis and treatment plan; patient expressed understanding of the content. ADMINISTRATIVE BILLING I personally spent 44 minutes in care of the patient today. Time includes both non face to face and face to face patient care. documented in this encounter Plan of Treatment Upcoming Encounters Date Type Specialty Care Team Description 11/19/2021 Clinical Communication Admitting/Central Scheduling 11/23/2021 Comprehensive Visit Neurology Kenji Zaldivar M.D. [address] [place] [address] documented as of this encounter Visit Diagnoses Diagnosis Malignant Neoplasm Of Pancreas Adenocarc inoma (HCC) - Primary documented in this encounter Care Teams Photograph Finisher Relationship Specialty Start Date End Date Aviva Laws APRN, C.N.P., PCP - General Family Medicine 12/11/20 09/23/21 M.S.N. [address] [phone] documented as of this encounter
--- OUTSIDE RECORDS SUMMARY | 2021-11-03 07:04 | XMS_ITS | Encounter Summary ---
:1940 Author Organization [facility] Address [address] [place] [address] Care Team Providers Name Role Phone Unavailable Primary Care Provider Unavailable Reason for Visit Episode Based Medications (Routine) - Authorized Specialty Diagnoses / Procedures Referred By Contact Refer red To Contact Diagnoses Malignant Neoplasm Of Pancreas Adenocarcinoma (HCC) Neutropenia Chemotherapy Induced (HCC) Kimberly Rios, Rsmarleen Onc Coy HIGH C.N.P., M.S. [address] [place] [address] [place] [phone] Referral ID Status Reason Start Date Expiration Date Visits V isits Requested Authorized [id number] Authorized 06/03/2020 06/03/2021 99 99 Encounter Details Date Type Department Care Team Description 12/09/2020 Lab Department of Laboratory Nova Vivar Mal ignant Neoplasm Of Medicine and Pathology, M.B.B.S. Pancreas Adenocarcinoma [place], [place] [address] [place] [address] (HCC) (Primary Dx) [place], [place] [address] [place] [phone] [place] [address] Social History Tobacco Use Types Packs/Day Years [...] Comprehensive Visit Neurology Kenji Zaldivar M.D. [address] [place] [phone] documented as of this encounter Procedures Procedure Name Priority Date/Time Associated Diagnosis Comme nts CARBOHYDRATE AG 19-9 Routine 12/09/2020 7:13 Malignant Neoplas m Of Results for this (CA 19-9), S AM CDT Pancreas procedure are i n Adenocarcinoma (HCC) the res ults section. CBC WITH Routine 12/09/2020 7:13 Malignant Neoplasm Of Res ults for this DIFFERENTIAL, B AM CDT Pancreas procedure ar e in Adenocarcinoma (HCC) the res ults section. MAGNESIUM, S Routine 12/09/2020 7:13 Malignant Neoplasm Of Res ults for this AM CDT Pancreas procedure are i n Adenocarcinoma (HCC) the res ults section. BILIRUBIN DIRECT, S/P Routine 12/09/2020 7:13 Malignant Neopla sm Of Results for this AM CDT Pancreas procedure are i n Adenocarcinoma (HCC) the res ults section. COMPREHENSIVE Routine 12/09/2020 7:13 Malignant Neoplasm Of Re sults for this METABOLIC PANEL, S/P AM CDT Pancreas procedu re are in Adenocarcinoma (HCC) the res ults section. documented in this encounter Results Bilirubin, Direct (12/09/2020 7:13 AM CDT) athologist Signature Bilirubin, <0.2 0.0 - 0.3 12/09/2020 DTL Direct, S mg/dL 8:00 AM CDT Specimen Anatomical Collection Method Collection Time Receive d Time (Source) Location / / Volume Laterality Blood (Blood, 12/09/2020 7:13 AM 12/10/19 7:21 Venous) CDT AM CDT Nova ZamoraB.S. LAB BLOOD ADD-ON Performing Organization Address City/State/ZIP Code Phon e Number [facility] - 200 [place], [place] [address] [facility] [place] [address] Laboratories-[facility] 200 [facility] (ABNORMAL) Comprehensive Metabolic Panel (12/09/2020 7:13 AM CDT) athologist Signature Potassium, S 3.7 3.6 - 5.2 12/09/2020 DTL mmol/L 7:56 AM CDT Sodium, S 146 (H) 135 - 145 12/09/2020 DTL mmol/L 7:56 AM CDT Chloride, S 106 98 - 107 12/09/2020 DTL mmol/L 7:56 AM CDT Bicarbonate, S 31 (H) 22 - 29 12/09/2020 DTL mmol/L 7:56 AM CDT Anion Gap 9 7 - 15 12/09/2020 DTL 7:56 AM CDT BUN (Blood 12 6 - 21 12/09/2020 DTL Urea mg/dL 7:56 AM CDT Nitrogen), S Creatinine, S 0.86 0.59 - 12/09/2020 DTL 1.04 mg/dL 7:56 AM CDT eGFR-Non 65 >=60 12/09/2020 DTL Black/ mL/min/BSA 7:56 AM CDT Yemeni Comment: ----ADDITIONAL INFORMATION---- Estimated GFR calculated using the 2009 CKD_EPI creatinine equation. eGFR-Black/ 75 >=60 mL/min/BSA 2020 7:56 AM CDT DTL Comment: ----ADDITIONAL INFORMATION---- Estimated GFR calculated using the 2009 CKD_EPI creatinine equation. Calcium, Total, S 9.2 8.8 - 10.2 mg/dL 12/09/2020 7:56 AM CDT DTL Glucose, S 94 70 - 140 mg/dL 12/09/2020 7:56 AM CDT D TL Protein, Total, S 6.2 (L) 6.3 - 7.9 g/dL 12/09/2020 7:56 A M CDT DTL Albumin, S 4.3 3.5 - 5.0 g/dL 12/09/2020 7:56 AM CDT D TL Aspartate Aminotransferase 38 8 - 43 U/L 12/09/2020 7 :56 AM CDT DTL (AST), S Alkaline Phosphatase, S 92 35 - 104 U/L 12/09/2020 7: 56 AM CDT DTL Alanine Aminotransferase 30 7 - 45 U/L 12/09/2020 7:5 6 AM CDT DTL (ALT), S Bilirubin, Total, S <0.2 <=1.2 mg/dL 12/09/2020 7:56 AM CDT DTL Specimen Anatomical Collection Method Collection Time Receive d Time (Source) Location / / Volume Laterality Blood (Blood, 12/09/2020 7:13 AM 12/10/19 7:21 Venous) CDT AM CDT Nova McnealS. LAB BLOOD ADD-ON Performing Organization Address City/State/ZIP Code Phon e Number [facility] - [address] [place], [place] [address] [facility] [place] [address] [facility] [address] (ABNORMAL) CBC with Differential, Blood (12/09/2020 7:13 AM CDT) [facility] gist Method Time Signature Hemoglobin 9.6 (L) 11.6 - 12/09/2020 DTL 15.0 g/dL 7:32 AM CDT Hematocrit 29.5 (L) 35.5 - 12/09/2020 DTL 44.9 % 7:32 AM CDT Erythrocytes 2.91 (L) 3.92 - 12/09/2020 DTL 5.13 7:32 AM CDT x10(12)/L MCV 101.4 (H) 78.2 - 12/09/2020 DTL 97.9 fL 7:32 AM CDT RBC Distrib Width 14.2 12.2 - 12/09/2020 DTL 16.1 % 7:32 AM CDT Platelet Count 129 (L) 157 - 371 12/09/2020 DTL x10(9)/L 7:32 AM CDT Leukocytes 2.4 (L) 3.4 - 9.6 12/09/2020 DTL x10(9)/L 7:32 AM CDT Neutrophils 1.35 (L) 1.56 - 12/09/2020 DTL 6.45 7:32 AM CDT x10(9)/L Lymphocytes 0.51 (L) 0.95 - 12/09/2020 DTL 3.07 7:32 AM CDT x10(9)/L Monocytes 0.54 0.26 - 12/09/2020 DTL 0.81 7:32 AM CDT x10(9)/L Eosinophils <0.03 0.03 - 12/09/2020 DTL 0.48 7:32 AM CDT x10(9)/L Basophils <0.03 0.01 - 12/09/2020 DTL 0.08 7:32 AM CDT x10(9)/L Specimen Anatomical Collection Method Collection Time Receive d Time (Source) Location / / Volume Laterality Blood (Blood, 12/09/2020 7:13 AM 12/10/19 21 7:21 Venous) CDT AM CDT Nova ZamoraBChicoS. LAB BLOOD ADD-ON Performing Organization Address City/State/ZIP Code Phon e Number [facility] - 200 [place] [address] 05 [place] [address] Laboratories-[address] Magnesium (12/09/2020 7:13 AM CDT) athologist Signature Magnesium, S 2.2 1.7 - 2.3 12/09/2020 DTL mg/dL 8:00 AM CDT Specimen Anatomical Collection Method Collection Time Receive d Time (Source) Location / / Volume Laterality Blood (Blood, 12/09/2020 7:13 AM 12/10/19 7:21 Venous) CDT AM CDT Nova McnealSChico LAB BLOOD ADD-ON Performing Organization Address City/[facility]/ZIP Code Phon e Number [facility] - [address] [address] Laboratories-[address] Carbohydrate Antigen 19-9 (CA 19-9) (12/09/2020 7:13 AM CDT) athologist Signature Carbohydrate Ag 34 <35 U/mL 12/09/2020 [facility] 19-9, S 1:09 PM CDT Comment: ----ADDITIONAL INFORMATION---- The testing method is an immunoenzymatic assay manufactured by [employer] and performed on the [employer] DxI 800. ? Values obtained with different assay met hods or kits may be different and cannot be used inte rchangeably. ? Test results cannot be interpreted as ab solute evidence for the presence or absence of malignant disease. Specimen Anatomical Collection Method Collection Time Receive d Time (Source) Location / / Volume Laterality Blood (Blood, 12/09/2020 7:13 AM 12/10/19 Venous) CDT 12:10 PM CDT Nova ZamoraBChicoSChico LAB BLOOD ADD-ON Performing Organization Address City/State/ZIP Code Phon e Number [facility] [address] [place], [place] [address] [facility] [place] [address] Laboratory Medicine and Pathology [address] [place] documented in this encounter Visit Diagnoses Diagnosis Malignant Neoplasm Of Pancreas Adenocarc inoma (HCC) - Primary documented in this encounter Administered Medications Inactive Administered Medications - up to 3 most recent administrations Medication Order MAR Action Action Date Dose Rate Site heparin flush 500 Units Given 12/09/2020 7:19 AM CDT 500 Units 500 Units, intra-catheter, As needed, line care, Starting on Mon12/09/20 at 0702, When no infusion to maintain patency: For IVAD accessed, not in use, and/or prior to hospital discharge, flush every 7 days after 0.9% preservative-free NaCL flush. For IVAD NOT accessed or used, flush every 4 weeks after 0.9% preservative-free NaCL flush. sodium chloride 0.9 % injection 10 mL Given 12/09/2020 7:17 AM CDT 10 mL 10 mL, intra-catheter, As needed, line care, Starting on Mon12/09/20 at 0702, When IVAD Accessed and in Use: Flush prior to and following infusion, between multiple consecutive infusions, and prior to blood sampling. sodium chloride 0.9 % injection 20 mL Given 12/09/2020 7:19 AM CDT 20 mL 20 mL, intra-catheter, As needed, line care, Starting on Mon12/09/20 at 0702, When IVAD Accessed and in Use: Flush post blood transfusion or post blood sampling. documented in this encounter
--- OUTSIDE RECORDS SUMMARY | 2021-11-03 07:04 | XMS_ITS | Encounter Summary ---
:1940 Author Organization [facility] Address [address] [place] [address] Care Team Providers Name Role Phone VetoAviva APRN, C.NJasson, M.S.N. Primary Care Provider [phone] Reason for Referral Outpatient (Routine) - Closed Specialty Diagnoses / Procedures Referred By Contact Refer red To Contact Oncology Kimberly Rios APRN, [facility]Our [facility] [address] [place] [phone] Referral ID Status Reason Start Date Expiration Date Visits Requ ested Visits Authorized [id number] Closed 12/14/2020 12/14/2021 1 1 Scheduling Instructions Please override appt per Kimberly Rios. Thank you Encounter Details Date Type Department Care Team Description 12/14/2020 Clinical Communication Department of Oncology Kimberly Rios in [place] APRN, C.[facility] 200 [facility] [address] [place] [phone] Social History Tobacco Use Types Packs/Day Years [...] 06/19/2021 organizations such as synagogue groups, unions, fraEmitless or athletic groups, or school groups? How [...] Visit Neurology Kenji Zaldivar M.D. [address] [place] [address] Scheduled Referrals Name Type Priority Associated Order Schedule Diagnoses Oncology office Outpatient Referral Routine Expec hever: visit (clinic) 12/22/2020 General; GIH (Approximate), Pancreatic Expires: 12/15/2023 documented as of this encounter Visit Diagnoses Not on filedocumented in this encounter Care Teams Account Receivable Associate Relationship Specialty Start Date End Date Aviva Laws APRN, C.N.P., PCP - General Family Medicine 12/11/20 09/23/21 M.S.N. [address] [phone] documented as of this encounter
--- OUTSIDE RECORDS SUMMARY | 2021-11-03 07:04 | XMS_ITS | Encounter Summary ---
:1940 Author Organization [facility] Address [address] [place] [address] Care Team Providers Name Role Phone Aviva Laws APRN C.N.PChico, M.S.N. Primary Care Provider +1 -[phone] Encounter Details Date Type Department Care Team Description 01/18/2021 Clinical Communication Department of Vel Aleman, Medicine, [place] Harleen HIGH.N.PChico, Clinic, in [facility] [address] [facility] [place] [phone] Social History Tobacco Use Types Packs/Day Years [...] or relatives? How often do you attend alevism or More than 4 times per year 06/19/2021 oriental orthodox services? Do you belong to any clubs or Yes 06/19/2021 organizations such as alevism groups, unions, fraternal or athletic groups, or [...] Visit Neurology Kenji Zaldivar M.D. [address] [place] [address] documented as of this encounter Visit Diagnoses Not on filedocumented in this encounter Care Teams Passenger Conductor Relationship Specialty Start Date End Date Aviva Laws APRN, C.N.P., PCP - General Family Medicine 12/11/20 09/23/21 M.S.N. [address] [place] [address] documented as of this encounter
--- OUTSIDE RECORDS SUMMARY | 2021-11-03 07:04 | XMS_ITS | Encounter Summary ---
:1940 Author Organization [facility] Address [address] [place] [address] Care Team Providers Name Role Phone Veto Aviva Ruiz APRN C.N.P., M.S.N. Primary Care Provider +1 [phone] Encounter Details Date Type Department Care Team Description 01/18/2021 Clinical Communication Department of Oncology Kimberly Rios in [facility], Trace HIGHNJasson, [facility] [place].S. 200 [facility] [address] [place] [phone] Social History Tobacco Use Types Packs/Day Years [...] or relatives? How often do you attend episcopal or More than 4 times per year 06/19/2021 zoroastrian services? Do you belong to any clubs or Yes 06/19/2021 organizations such as episcopal groups, unions, fraternal or athletic groups, or [...] Visit Neurology Kenji Zaldivar M.D. [address] [place] [address] documented as of this encounter Visit Diagnoses Not on filedocumented in this encounter Care Teams Devops Consultant Relationship Specialty Start Date End Date Aviva Laws APRN, C.N.P., PCP - General Family Medicine 12/11/20 09/23/21 CoreyNChico [address] [place] [address] documented as of this encounter
--- OUTSIDE RECORDS SUMMARY | 2021-11-03 07:04 | XMS_ITS | Encounter Summary ---
:1940 Author Organization [facility] Address [address] [place] [address] Care Team Providers Name Role Phone LawsAviva APRN, C.N.P., M.S.N. Primary Care Provider +1 [phone] Reason for Visit Outpatient (Routine) - Closed Specialty Diagnoses / Procedures Referred By Contact Refer red To Contact Diagnoses Malignant Neoplasm Of Pancreas Adenocarcinoma (HCC) Kimberly Rios APRN, [facility] Procedures ONC Pump Disconnect C.N.P., M.S. [address] [place] [address] Referral ID Status Reason Start Date Expiration Date Visits Requ ested Visits Authorized [id number] Closed 09/01/2020 09/01/2021 5 5 Encounter Details Date Type Department Care Team Description 12/11/2020 Infusion Department of Infusion Kimberly Rios Ma lignant Neoplasm Of Pancreas Adenocarcinoma (HCC) (Primary Dx); Therapy in Alan Donaldson APRN C.N.PChico, Jesus tropenia Chemotherapy Induced (HCC) [facility] [address] [place] [phone] Social History Tobacco Use Types Packs/Day Years [...] More than 4 times per year 06/19/2021 holiness services? Do you belong to any clubs or Yes 06/19/2021 organizations such as latter day groups, unions, fraSuperpedestrian or athletic groups, or school groups? How [...] Visit Neurology Kenji Zaldivar M.D. [address] [place] [address] documented as of this encounter Visit Diagnoses Diagnosis Malignant Neoplasm Of Pancreas Adenocarc inoma (HCC) - Primary Neutropenia Chemotherapy Induced (HCC) documented in this encounter Administered Medications Inactive Administered Medications - up to 3 most recent administrations Medication Order MAR Action Action Date Dose Rate Site heparin flush 500 Units Given 12/11/2020 1:45 PM CDT 500 Units 500 Units, intra-catheter, As needed, line care, Starting on Mon12/11/20 at 1337, When no infusion to maintain patency: For IVAD accessed, not in use, and/or prior to hospital discharge, flush every 7 days after 0.9% preservative-free NaCL flush. For IVAD NOT accessed or used, flush every 4 weeks after 0.9% preservative-free NaCL flush. pegfilgrastim injection 6 mg Given 12/11/2020 1:47 PM CDT 6 mg Left Upper Arm (Back) (NEULASTA) 6 mg, subcutaneous, Once, On Mon12/11/20 at 1345, For 1 dose sodium chloride 0.9 % injection 20 mL Given 12/11/2020 1:45 PM CDT 20 mL 20 mL, intra-catheter, As needed, line care, Starting on Mon12/11/20 at 1337, When IVAD Accessed and in Use: Flush post blood transfusion or post blood sampling. documented in this encounter Care Teams Auxiliary Operator Relationship Specialty Start Date End Date Aviva Laws APRN, C.N.P., PCP - General Family Medicine 12/11/20 09/23/21 M.S.N. [address] [place] [address] documented as of this encounter
--- OUTSIDE RECORDS SUMMARY | 2021-11-03 07:04 | XMS_ITS | Encounter Summary ---
:1940 Author Organization [facility] Address [address] [place] [address] Care Team Providers Name Role Phone LawsAviva betts APRN, C.N.P., M.S.N. Primary Care Provider +1 [phone] Reason for Visit Episode Based Medications (Routine) - Authorized Specialty Diagnoses / Procedures Referred By Contact Refer red To Contact Diagnoses Malignant Neoplasm Of Pancreas Adenocarcinoma (HCC) Neutropenia Chemotherapy Induced (HCC) Kimberly Rios, Rst Onc Trace Cespedes APRNN.Hossein., M.S. [address] [facility] 200 [place] [phone] Referral ID Status Reason Start Date Expiration Date Visits V isits Requested Authorized [id number] Authorized 06/03/2020 06/03/2021 99 99 Encounter Details Date Type Department Care Team Description 01/18/2021 Lab Department of Infusion Kimberly Rios, Malignant Neoplasm Of Pancreas Adenocarcinoma (HCC) (Primary Dx); Therapy in [facility] Trace HIGHNChico Catalan., M.S. Neutropenia Chemotherapy Induced (HCC) [address] [place] [phone] Social History Tobacco Use Types Packs/Day Years [...] 06/19/2021 organizations such as protestant groups, unions, fraEverlasting Values Organized Through Love or athletic groups, or school groups? How [...] Visit Neurology Kenji Zaldivar M.D. [address] [place] [phone] documented as of this encounter Procedures Procedure Name Priority Date/Time Associated Diagnosis Comme nts CARBOHYDRATE AG 19-9 Routine 01/18/2021 8:31 Malignant Neoplas m Of Results for this (CA 19-9), S AM CDT Pancreas procedure are i n Adenocarcinoma ( HCC) the results Neutropenia section. Chemotherapy Induced (HCC) CBC WITH Routine 01/18/2021 8:31 Malignant Neoplasm Of Res ults for this DIFFERENTIAL, B AM CDT Pancreas procedure ar e in Adenocarcinoma ( HCC) the results Neutropenia section. Chemotherapy Induced (HCC) MAGNESIUM, S Routine 01/18/2021 8:31 Malignant Neoplasm Of Res ults for this AM CDT Pancreas procedure are i n Adenocarcinoma ( HCC) the results Neutropenia section. Chemotherapy Induced (HCC) BILIRUBIN DIRECT, S/P Routine 01/18/2021 8:31 Malignant Neopla sm Of Results for this AM CDT Pancreas procedure are i n Adenocarcinoma ( HCC) the results Neutropenia section. Chemotherapy Induced (HCC) COMPREHENSIVE Routine 01/18/2021 8:31 Malignant Neoplasm Of Re sults for this METABOLIC PANEL, S/P AM CDT Pancreas procedu re are in Adenocarcinoma ( HCC) the results Neutropenia section. Chemotherapy Induced (HCC) documented in this encounter Results (ABNORMAL) Bilirubin, Direct (01/18/2021 8:31 AM CDT) athologist Signature Bilirubin, 1.1 (H) 0.0 - 0.3 01/18/2021 DTL Direct, S mg/dL 10:42 AM CDT Specimen Anatomical Collection Method Collection Time Receive d Time (Source) Location / / Volume Laterality Blood (Blood, 01/18/2021 8:31 AM 01/19/20 9:58 Venous) CDT AM CDT Kimberly Rios APRN, C.N.P., M.S. LAB BLOOD ADD-ON Performing Organization Address City/State/ZIP Code Phon e Number [facility] - 200 [place], [place] [address] [address] [facility] [place] [address] [facility] 200 [facility] (ABNORMAL) Comprehensive Metabolic Panel (01/18/2021 8:31 AM CDT) athologist Signature Potassium, S 4.3 3.6 - 5.2 01/18/2021 DTL mmol/L 10:42 AM CDT Sodium, S 143 135 - 145 01/18/2021 DTL mmol/L 10:42 AM CDT Chloride, S 105 98 - 107 01/18/2021 DTL mmol/L 10:42 AM CDT Bicarbonate, S 27 22 - 29 01/18/2021 DTL mmol/L 10:42 AM CDT Anion Gap 11 7 - 15 01/18/2021 DTL 10:42 AM CDT BUN (Blood Urea 18 6 - 21 01/18/2021 DTL Nitrogen), S mg/dL 10:42 AM CDT Creatinine, S 0.93 0.59 - 01/18/2021 DTL 1.04 mg/dL 10:42 AM CDT eGFR-Non 59 (L) >=60 01/18/2021 DTL Black/ mL/min/BSA 10:42 AM CDT [place] Comment: ----ADDITIONAL INFORMATION---- Estimated GFR calculated using the 2009 CKD_EPI creatinine equation. eGFR-Black/ 68 >=60 mL/min/BSA 2020 10:42 AM CDT DTL Comment: ----ADDITIONAL INFORMATION---- Estimated GFR calculated using the 2009 CKD_EPI creatinine equation. Calcium, Total, S 9.4 8.8 - 10.2 mg/dL 01/18/2021 10:4 2 AM CDT DTL Glucose, S 113 70 - 140 mg/dL 01/18/2021 10:42 AM CDT DTL Protein, Total, S 6.4 6.3 - 7.9 g/dL 01/18/2021 10:42 AM CDT DTL Albumin, S 4.7 3.5 - 5.0 g/dL 01/18/2021 10:42 AM CDT DTL Aspartate Aminotransferase 214 (H) 8 - 43 U/L 01/18/2021 1 0:42 AM CDT DTL (AST), S Alkaline Phosphatase, S 532 (H) 35 - 104 U/L 01/18/2021 10 :42 AM CDT DTL Alanine Aminotransferase 352 (H) 7 - 45 U/L 01/18/2021 10: 42 AM CDT DTL (ALT), S Bilirubin, Total, S 1.5 (H) <=1.2 mg/dL 01/18/2021 10:42 A M CDT DTL Specimen Anatomical Collection Method Collection Time Receive d Time (Source) Location / / Volume Laterality Blood (Blood, 01/18/2021 8:31 AM 01/19/20 9:58 Venous) CDT AM CDT Kimberly Alan Rios APRN, C.N.P., M.S. LAB BLOOD ADD-ON Performing Organization Address City/State/ZIP Code Phon e Number [facility] - 200 [place], [place] [address] [facility] [place] [address] [facility] 200 [facility] (ABNORMAL) CBC with Differential, Blood (01/18/2021 8:31 AM CDT) [facility] Method Time Signature Hemoglobin 10.6 (L) 11.6 - 01/18/2021 DTL 15.0 g/dL 9:27 AM CDT Hematocrit 32.9 (L) 35.5 - 01/18/2021 DTL 44.9 % 9:27 AM CDT Erythrocytes 3.14 (L) 3.92 - 01/18/2021 DTL 5.13 9:27 AM CDT x10(12)/L MCV 104.8 (H) 78.2 - 01/18/2021 DTL 97.9 fL 9:27 AM CDT RBC Distrib Width 15.9 12.2 - 01/18/2021 DTL 16.1 % 9:27 AM CDT Platelet Count 212 157 - 371 01/18/2021 DTL x10(9)/L 9:27 AM CDT Leukocytes 6.1 3.4 - 9.6 01/18/2021 DTL x10(9)/L 9:27 AM CDT Neutrophils 4.45 1.56 - 01/18/2021 DTL 6.45 9:27 AM CDT x10(9)/L Lymphocytes 0.65 (L) 0.95 - 01/18/2021 DTL 3.07 9:27 AM CDT x10(9)/L Monocytes 0.86 (H) 0.26 - 01/18/2021 DTL 0.81 9:27 AM CDT x10(9)/L Eosinophils 0.04 0.03 - 01/18/2021 DTL 0.48 9:27 AM CDT x10(9)/L Basophils 0.06 0.01 - 01/18/2021 DTL 0.08 9:27 AM CDT x10(9)/L Specimen Anatomical Collection Method Collection Time Receive d Time (Source) Location / / Volume Laterality Blood (Blood, 01/18/2021 8:31 AM 01/19/20 8:47 Venous) CDT AM CDT Kimberly Rios APRN, C.N.P., M.S. LAB BLOOD ADD-ON Performing Organization Address City/[facility] Phon e Number [facility] - [address] [place], [place] [address] [facility] [place] [address] [facility] 200 [facility] Magnesium (01/18/2021 8:31 AM CDT) P athologist Signature Magnesium, S 2.2 1.7 - 2.3 01/18/2021 DTL mg/dL 10:42 AM CDT Specimen Anatomical Collection Method Collection Time Receive d Time (Source) Location / / Volume Laterality Blood (Blood, 01/18/2021 8:31 AM 01/19/20 9:58 Venous) CDT AM CDT Kimberly Rios APRN, C.N.P., M.S. LAB BLOOD ADD-ON Performing Organization Address City/[facility] Phon e Number [facility] - [address] [place], [place] [address] [place] [address] [facility] (ABNORMAL) Carbohydrate Antigen 19-9 (CA 19-9) (01/18/2021 8:31 AM CDT) Analysis Performed At Patho logist Time Signature Carbohydrate Ag 74 (H) <35 U/mL 01/18/2021 SDSC 19-9, S 2:05 PM CDT Comment: ----ADDITIONAL INFORMATION---- The testing method is an immunoenzymatic assay manufactured by [employer] and performed on the [employer] DxI 800. ? Values obtained with different assay met hods or kits may be different and cannot be used inte rchangeably. ? Test results cannot be interpreted as ab solute evidence for the presence or absence of malignant disease. Specimen Anatomical Collection Method Collection Time Receive d Time (Source) Location / / Volume Laterality Blood (Blood, 01/18/2021 8:31 AM 01/19/20 Venous) CDT 12:40 PM CDT Kimberly Rios Trace HIGHN.Hossein., M.S. LAB BLOOD ADD-ON Performing Organization Address City/State/ZIP Code Phon e Number [facility] [address] [place], [place] [address] [facility] [place] [address] Laboratory Medicine and Pathology [address] [place] documented in this encounter Visit Diagnoses Diagnosis Malignant Neoplasm Of Pancreas Adenocarc inoma (HCC) - Primary Neutropenia Chemotherapy Induced (HCC) documented in this encounter Administered Medications Inactive Administered Medications - up to 3 most recent administrations Medication Order MAR Action Action Date Dose Rate Site heparin flush 500 Units Given 01/18/2021 8:33 AM CDT 500 Units 500 Units, intra-catheter, As needed, line care, Starting on Mon01/18/21 at 0822, When no infusion to maintain patency: For IVAD accessed, not in use, and/or prior to hospital discharge, flush every 7 days after 0.9% preservative-free NaCL flush. For IVAD NOT accessed or used, flush every 4 weeks after 0.9% preservative-free NaCL flush. sodium chloride 0.9 % injection 10 mL Given 01/18/2021 8:33 AM CDT 10 mL 10 mL, intra-catheter, As needed, line care, Starting on Mon01/18/21 at 0822, When IVAD Accessed and in Use: Flush prior to and following infusion, between multiple consecutive infusions, and prior to blood sampling. sodium chloride 0.9 % injection 20 mL Given 01/18/2021 8:33 AM CDT 20 mL 20 mL, intra-catheter, As needed, line care, Starting on Mon01/18/21 at 0822, When IVAD Accessed and in Use: Flush post blood transfusion or post blood sampling. documented in this encounter Care Teams Marble Ceiling Installer Relationship Specialty Start Date End Date Aviva Laws, LENNOX, C.N.P., PCP - General Family Medicine 12/11/20 09/23/21 MChicoS.N. [address] [phone] documented as of this encounter
--- OUTSIDE RECORDS SUMMARY | 2021-11-03 07:04 | XMS_ITS | Encounter Summary ---
:1940 Author Organization [facility] Address [address] [place] [address] Care Team Providers Name Role Phone Aviva Laws APRN, C.N.P., M.S.N. Primary Care Provider +1 [phone] Encounter Details Date Type Department Care Team Description 12/09/2020 Clinical Communication Department of [facility], Internal Medicine in [place], [place] [address] [place] [address] Social History Tobacco Use Types Packs/Day [...] or relatives? How often do you attend tenriism or More than 4 times per year 06/19/2021 muslim services? Do you belong to any clubs or Yes 06/19/2021 organizations such as tenriism groups, unions, fraternal or athletic groups, or [...] this encounter Miscellaneous Notes Telephone Encounter - Akhil Avendano - 12/10/2020 10:13 AM CDT I called to the [facility] chemotherapy center and spoke with Nena. Disconnect appt scheduled, along with a visit to see a provider in primary care here for the morning of 12/11. (Needed prior to any injections or infusions outside of the disconnect per nurse team) See other communication from [place] provider in regards to fax order that is sent today to Aviva Laws CNP to help establish an active order for the Neulasta. Telephone Encounter - Evelyn Walker - 12/09/2020 11:39 AM CDT Reason for Communication: Nena from Chemo in [place] called to schedule an appt for Azeb. She states that she needs her chemo pump disconnected and a Neulasta shot in [place] in infusion. Current Can Nursing/Provider leave a detailed message?: na Did the patient refuse triage through Nurse line? (for symptom based concerns): na Action Needed: wants call back Name of Medication (if relevant): na Please send all scheduling replies to scheduling pool. documented in this encounter Plan of Treatment Upcoming Encounters Date Type Specialty Care Team Description 11/19/2021 Clinical Communication Admitting/Central Scheduling 11/23/2021 Comprehensive Visit Neurology Kenji Zaldivar M.D. [address] [place] [address] documented as of this encounter Visit Diagnoses Not on filedocumented in this encounter Care Teams Exhibitions And Collections Manager Relationship Specialty Start Date End Date Aviva Laws APRN, C.N.P., PCP - General Family Medicine 12/11/20 09/23/21 M.S.N. [address] [place] [phone] documented as of this encounter
--- OUTSIDE RECORDS SUMMARY | 2021-11-03 07:04 | XMS_ITS | Encounter Summary ---
:1940 Author Organization [facility] Address [address] [place] [address] Care Team Providers Name Role Phone LawsAviva betts APRN C.N.P., M.S.N. Primary Care Provider +1 [phone] Reason for Visit Outpatient (Routine) - Closed Specialty Diagnoses / Procedures Referred By Contact Refer red To Contact Diagnoses Malignant Neoplasm Of Pancreas Adenocarcinoma (HCC) [facility] Procedures ONC Pump Disconnect C.N.P., M.S. [address] [place], [place] [address] Referral ID Status Reason Start Date Expiration Date Visits Requ ested Visits Authorized [id number] Closed 01/18/2021 01/18/2022 1 1 Encounter Details Date Type Department Care Team Description 01/20/2021 Infusion Department of Infusion Kimberly Rios Ma lignant Neoplasm Of Pancreas Adenocarcinoma (HCC) (Primary Dx); Therapy in Alan Donaldson APRN C.N.PChico, Jesus tropenia Chemotherapy Induced (HCC) [facility] [address] [place] [phone] Social History Tobacco Use Types Packs/Day Years [...] or relatives? How often do you attend restorationism or More than 4 times per year 06/19/2021 faith services? Do you belong to any clubs or Yes 06/19/2021 organizations such as restorationism groups, unions, fraternal or athletic groups, or [...] Visit Neurology Kenji Zaldivar M.D. [address] [place] [address] documented as of this encounter Visit Diagnoses Diagnosis Malignant Neoplasm Of Pancreas Adenocarc inoma (HCC) - Primary Neutropenia Chemotherapy Induced (HCC) documented in this encounter Administered Medications Inactive Administered Medications - up to 3 most recent administrations Medication Order MAR Action Action Date Dose Rate Site heparin flush 500 Units Given 01/20/2021 3:13 PM CDT 500 Units 500 Units, intra-catheter, As needed, line care, Starting on Mon01/20/21 at 1512, When no infusion to maintain patency: For IVAD accessed, not in use, and/or prior to hospital discharge, flush every 7 days after 0.9% preservative-free NaCL flush. For IVAD NOT accessed or used, flush every 4 weeks after 0.9% preservative-free NaCL flush. pegfilgrastim injection 6 mg Given 01/20/2021 3:13 PM CDT 6 mg Left Upper Arm (Back) (NEULASTA) 6 mg, subcutaneous, Once, On Mon01/20/21 at 1515, For 1 dose sodium chloride 0.9 % injection 20 mL Given 01/20/2021 3:12 PM CDT 20 mL 20 mL, intra-catheter, As needed, line care, Starting on Mon01/20/21 at 1512, When IVAD Accessed and in Use: Flush post blood transfusion or post blood sampling. documented in this encounter Care Teams Sand Conditioner Relationship Specialty Start Date End Date Aviva Laws APRN, C.N.P., PCP - General Family Medicine 12/11/20 09/23/21 M.S.N. [address] [phone] documented as of this encounter
--- OUTSIDE RECORDS SUMMARY | 2021-11-03 07:04 | XMS_ITS | Encounter Summary ---
:1940 Author Organization [facility] Address [address] [place] [address] Care Team Providers Name Role Phone Aviva Laws APRN, C.N.P., M.S.N. Primary Care Provider [phone] Reason for Visit Episode Based Medications (Routine) - Authorized Specialty Diagnoses / Procedures Referred By Contact Refer red To Contact Diagnoses Malignant Neoplasm Of Pancreas Adenocarcinoma (HCC) Neutropenia Chemotherapy Induced (HCC) Kimberly Rios, Rst Onc Trace Cespedes APRNN.Mandeep, M.S. [address] [place] [phone] Referral ID Status Reason Start Date Expiration Date Visits V isits Requested Authorized [id number] Authorized 06/03/2020 06/03/2021 99 99 Encounter Details Date Type Department Care Team Description 12/22/2020 Lab Department of Infusion Nova Vivar Malig nant Neoplasm Of Pancreas Adenocarcinoma (HCC) (Primary Dx); [facility] ([facility]) [place] [address] [place] [address] [place] [phone] Social History Tobacco Use Types Packs/Day Years [...] More than 4 times per year 06/19/2021 evangelical services? Do you belong to any clubs or Yes 06/19/2021 organizations such as bahai groups, unions, [employer] or athletic groups, or school groups? How [...] to sleep or slept in a senior care (including now)? Education Answer Date Recorded What [...] Visit Neurology Kenji Zaldivar M.D. [address] [place] [phone] documented as of this encounter Procedures Procedure Name Priority Date/Time Associated Diagnosis Comme nts CBC WITH Routine 12/22/2020 8:29 Malignant Neoplasm Of Res ults for this DIFFERENTIAL, B AM CDT Pancreas procedure ar e in Adenocarcinoma ( HCC) the results Neutropenia section. Chemotherapy Induced (HCC) MAGNESIUM, S Routine 12/22/2020 8:29 Malignant Neoplasm Of Res ults for this AM CDT Pancreas procedure are i n Adenocarcinoma ( HCC) the results Neutropenia section. Chemotherapy Induced (HCC) BILIRUBIN DIRECT, S/P Routine 12/22/2020 8:29 Malignant Neopla sm Of Results for this AM CDT Pancreas procedure are i n Adenocarcinoma ( HCC) the results Neutropenia section. Chemotherapy Induced (HCC) COMPREHENSIVE Routine 12/22/2020 8:29 Malignant Neoplasm Of Re sults for this METABOLIC PANEL, S/P AM CDT Pancreas procedu re are in Adenocarcinoma ( HCC) the results Neutropenia section. Chemotherapy Induced (HCC) documented in this encounter Results Bilirubin, Direct (12/22/2020 8:29 AM CDT) athologist Signature Bilirubin, <0.2 0.0 - 0.3 12/22/2020 DTL Direct, S mg/dL 9:43 AM CDT Specimen Anatomical Collection Method Collection Time Receive d Time (Source) Location / / Volume Laterality Blood (Blood, 12/22/2020 8:29 AM 12/23/19 8:40 Venous) CDT AM CDT Nova ZamoraB.S. LAB BLOOD ADD-ON Performing Organization Address City/State/[facility] Code Phon e Number [facility] - [address] [place], [place] [address] [facility] [place] [address] [facility] [address] (ABNORMAL) Comprehensive Metabolic Panel (12/22/2020 8:29 AM CDT) athologist Signature Potassium, S 4.3 3.6 - 5.2 12/22/2020 DTL mmol/L 9:39 AM CDT Sodium, S 140 135 - 145 12/22/2020 DTL mmol/L 9:39 AM CDT Chloride, S 102 98 - 107 12/22/2020 DTL mmol/L 9:39 AM CDT Bicarbonate, S 30 (H) 22 - 29 12/22/2020 DTL mmol/L 9:39 AM CDT Anion Gap 8 7 - 15 12/22/2020 DTL 9:39 AM CDT BUN (Blood Urea 14 6 - 21 12/22/2020 DTL Nitrogen), S mg/dL 9:39 AM CDT Creatinine, S 0.90 0.59 - 12/22/2020 DTL 1.04 mg/dL 9:39 AM CDT eGFR-Non 61 >=60 12/22/2020 DTL Black/ mL/min/BSA 9:39 AM CDT [place] Comment: ----ADDITIONAL INFORMATION---- Estimated GFR calculated using the 2009 CKD_EPI creatinine equation. eGFR-Black/ 71 >=60 mL/min/BSA 2020 9:39 AM CDT DTL Comment: ----ADDITIONAL INFORMATION---- Estimated GFR calculated using the 2009 CKD_EPI creatinine equation. Calcium, Total, S 9.8 8.8 - 10.2 mg/dL 12/22/2020 9:39 AM CDT DTL Glucose, S 93 70 - 140 mg/dL 12/22/2020 9:39 AM CDT D TL Protein, Total, S 6.0 (L) 6.3 - 7.9 g/dL 12/22/2020 9:39 A M CDT DTL Albumin, S 4.2 3.5 - 5.0 g/dL 12/22/2020 9:39 AM CDT D TL Aspartate Aminotransferase 33 8 - 43 U/L 12/22/2020 9 :39 AM CDT DTL (AST), S Alkaline Phosphatase, S 148 (H) 35 - 104 U/L 12/22/2020 9: 39 AM CDT DTL Alanine Aminotransferase 35 7 - 45 U/L 12/22/2020 9:3 9 AM CDT DTL (ALT), S Bilirubin, Total, S <0.2 <=1.2 mg/dL 12/22/2020 9:39 AM CDT DTL Specimen Anatomical Collection Method Collection Time Receive d Time (Source) Location / / Volume Laterality Blood (Blood, 12/22/2020 8:29 AM 12/23/19 8:40 Venous) CDT AM CDT Nova McnealS. LAB BLOOD ADD-ON Performing Organization Address City/State/ZIP Code Phon e Number [facility] - [address] [place], [place] [address] [facility] [place] [address] [facility] [address] (ABNORMAL) CBC with Differential, Blood (12/22/2020 8:29 AM CDT) [facility] gist Method Time Signature Hemoglobin 10.1 (L) 11.6 - 12/22/2020 DTL 15.0 g/dL 9:11 AM CDT Hematocrit 31.8 (L) 35.5 - 12/22/2020 DTL 44.9 % 9:11 AM CDT Erythrocytes 3.01 (L) 3.92 - 12/22/2020 DTL 5.13 9:11 AM CDT x10(12)/L MCV 105.6 (H) 78.2 - 12/22/2020 DTL 97.9 fL 9:11 AM CDT RBC Distrib Width 15.7 12.2 - 12/22/2020 DTL 16.1 % 9:11 AM CDT Platelet Count 115 (L) 157 - 371 12/22/2020 DTL x10(9)/L 9:11 AM CDT Leukocytes 13.9 (H) 3.4 - 9.6 12/22/2020 DTL x10(9)/L 9:11 AM CDT Neutrophils 11.62 (H) 1.56 - 12/22/2020 DTL 6.45 9:54 AM CDT x10(9)/L Comment: Rechecked Lymphocytes 1.18 0.95 - 3.07 x10(9)/L 12/22/2020 9:54 A M CDT DTL Monocytes 1.05 (H) 0.26 - 0.81 x10(9)/L 12/22/2020 9:54 AM CDT DTL Eosinophils <0.03 0.03 - 0.48 x10(9)/L 12/22/2020 9:54 A M CDT DTL Basophils 0.05 0.01 - 0.08 x10(9)/L 12/22/2020 9:54 AM CDT DTL Specimen Anatomical Collection Method Collection Time Receive d Time (Source) Location / / Volume Laterality Blood (Blood, 12/22/2020 8:29 AM 12/23/19 8:45 Venous) CDT AM CDT Nova ZamoraBChicoS. LAB BLOOD ADD-ON Performing Organization Address City/State/ZIP Code Phon e Number [facility] - 200 [place], [place] [address] [place] [address] [address] Magnesium (12/22/2020 8:29 AM CDT) P athologist Signature Magnesium, S 2.3 1.7 - 2.3 12/22/2020 DTL mg/dL 9:43 AM CDT Specimen Anatomical Collection Method Collection Time Receive d Time (Source) Location / / Volume Laterality Blood (Blood, 12/22/2020 8:29 AM 12/23/19 8:40 Venous) CDT AM CDT Nova Allen LAB BLOOD ADD-ON Performing Organization Address City/State/[facility] Code Phon e Number [facility] 200 [place], [place] [address] [place] [address] [facility] documented in this encounter Visit Diagnoses Diagnosis Malignant Neoplasm Of Pancreas Adenocarc inoma (HCC) - Primary Neutropenia Chemotherapy Induced (HCC) documented in this encounter Administered Medications Inactive Administered Medications - up to 3 most recent administrations Medication Order MAR Action Action Date Dose Rate Site heparin flush 500 Units Given 12/22/2020 8:30 AM CDT 500 Units 500 Units, intra-catheter, As needed, line care, Starting on Mon12/22/20 at 0826, When no infusion to maintain patency: For IVAD accessed, not in use, and/or prior to hospital discharge, flush every 7 days after 0.9% preservative-free NaCL flush. For IVAD NOT accessed or used, flush every 4 weeks after 0.9% preservative-free NaCL flush. sodium chloride 0.9 % injection 10 mL Given 12/22/2020 8:30 AM CDT 10 mL 10 mL, intra-catheter, As needed, line care, Starting on Mon12/22/20 at 0826, When IVAD Accessed and in Use: Flush prior to and following infusion, between multiple consecutive infusions, and prior to blood sampling. sodium chloride 0.9 % injection 20 mL Given 12/22/2020 8:30 AM CDT 20 mL 20 mL, intra-catheter, As needed, line care, Starting on Mon12/22/20 at 0826, When IVAD Accessed and in Use: Flush post blood transfusion or post blood sampling. documented in this encounter Care Teams Shoe Fitter Relationship Specialty Start Date End Date Aviva Laws APRN, C.N.P., PCP - General Family Medicine 12/11/20 09/23/21 M.S.N. [address] [phone] documented as of this encounter
--- OUTSIDE RECORDS SUMMARY | 2021-11-03 07:04 | XMS_ITS | Encounter Summary ---
:1940 Author Organization [facility] Address [address] [place] [address] Care Team Providers Name Role Phone LawsAviva betts APRN, C.N.P., M.S.N. Primary Care Provider [phone] Reason for Referral Outpatient (Routine) - Closed Specialty Diagnoses / Procedures Referred By Contact Refer red To Contact Diagnoses Malignant Neoplasm Of Pancreas Adenocarcinoma (HCC) Kimberly Rios APRN, [facility] Procedures ONC Pump Disconnect C.N.P., M.S. [address] [place] [phone] Referral ID Status Reason Start Date Expiration Date Visits Requ ested Visits Authorized [id number] Closed 12/22/2020 12/22/2021 1 1 Reason for Visit Episode Based Medications (Routine) - Authorized Specialty Diagnoses / Procedures Referred By Contact Refer red To Contact Diagnoses Malignant Neoplasm Of Pancreas Adenocarcinoma (HCC) Neutropenia Chemotherapy Induced (HCC) Kimberly Rios, Rst Onc Rogo Trace HIGHN.P., M.S. 200 [facility] 200 [place] [phone] Referral ID Status Reason Start Date Expiration Date Visits V isits Requested Authorized [id number] Authorized 06/03/2020 06/03/2021 99 99 Encounter Details Date Type Department Care Team Description 12/22/2020 Infusion Department of Oncology Nova Vivar Malig nant Neoplasm Of Pancreas Adenocarcinoma (HCC) (Primary Dx); in [facility] blossom Allen Neutropenia Chemotherapy Induced (HCC) 200 [address] [place] [phone] Social History Tobacco Use Types Packs/Day Years [...] or relatives? How often do you attend anglican or More than 4 times per year 06/19/2021 moravian services? Do you belong to any clubs or Yes 06/19/2021 organizations such as anglican groups, unions, fraternal or athletic groups, or [...] Visit Neurology Kenji Zaldivar M.D. [address] [place] [address] Scheduled Orders Name Type Priority Associated Diagnoses Order S chedule ONC Pump Disconnect Procedures Routine Malignant Neoplasm Of Expected: Pancreas Adenocarcinoma 11/27 (HCC) (Approximate), Expires: 2023 documented as of this encounter Visit Diagnoses Diagnosis Malignant Neoplasm Of Pancreas Adenocarc inoma (HCC) - Primary Neutropenia Chemotherapy Induced (HCC) documented in this encounter Administered Medications Inactive Administered Medications - up to 3 most recent administrations Medication Order MAR Action Action Date Dose Rate Site atropine injection 0.25 mg Given 12/22/2020 3:21 0.25 mg Right Lower 0.25 mg, subcutaneous, PM CDT Ab domen Once, On Mon12/22/20 at 1430, For 1 dose, Give prior to Irinotecan. Give subcutaneously if unable to give IV. Patient prefers SQ. dexamethasone in NaCl 0.9% IVPB 12 New Bag 12/22/2020 12:05 PM CDT 12 mg 200 mL/hr mg (DECADRON) 12 mg, intravenous, at 200 mL/hr, Administer over 15 Minutes, Once, On Mon12/22/20 at 1200, For 1 dose, Refrigerate fluorouraciL 3,000 mg in NaCl 0.9% 92 Given 12/22/2020 4:58 PM CDT 3,000 mg 2 mL/hr mL IVPB (ADRUCIL) 3,000 mg (rounded from 2,976 mg = 1,920 mg/m2 ? 1.55 m2 Treatment Plan BSA from Measured weight), intravenous, at 2 mL/hr, Administer over 46 Hours, over 46 hours, First dose on Mon12/22/20 at 1630, For 1 dose, Infuse at 2 mL/hr for 46 hours continuous infusion via CADD pump #[id number] fosaprepitant 150 mg in NaCl 0.9% New Bag 12/22/2020 12:46 PM CDT 150 mg 510 mL/hr (non-PVC) IVPB (EMEND) 150 mg, intravenous, at 510 mL/hr, Administer over 30 Minutes, Once, On Mon12/22/20 at 1200, For 1 dose, Incompatible with solutions containing divalent cations (calcium, magnesium) including lactated Ringer's solution. irinotecan 220 mg in D5W 559 mL New Bag 12/22/2020 3:24 PM CDT 220 mg 373 mL/hr IVPB (CAMPTOSAR) 220 mg (rounded from 218.88 mg = 144 mg/m2 ? 1.52 m2 Order-specific BSA), intravenous, at 373 mL/hr, Administer over 90 Minutes, Once, On Mon12/22/20 at 1500, For 1 dose, May be given via y-site with leucovorin. Protect from light. leucovorin 600 mg in D5W 305 mL New Bag 12/22/2020 3:24 PM CDT 600 mg 203 mL/hr IVPB 600 mg (rounded from 620 mg = 400 mg/m2 ? 1.55 m2 Treatment Plan BSA from Measured weight), intravenous, at 203 mL/hr, Administer over 90 Minutes, Once, On Mon12/22/20 at 1500, For 1 dose, Can be given via y-site with irinotecan. NaCl 0.9 % bolus 1,000 mL New 12/22/2020 12:05 PM CDT 1,000 mL 1000 mL/hr 1,000 mL, intravenous, at 1,000 mL/hr, Administer over 1 Hours, Once, On Mon12/22/20 at 1200, For 1 dose ondansetron in NaCl 0.9% IVPB 16 mg New 12/22/2020 12:25 P M CDT 16 mg 232 mL/hr (ZOFRAN) 16 mg, intravenous, at 232 mL/hr, Administer over 15 Minutes, Once, On Mon12/22/20 at 1200, For 1 dose oxaliplatin 100 mg in D5W 295 mL New 12/22/2020 1:22 PM CD T 100 mg 148 mL/hr IVPB (ELOXATIN) 100 mg (rounded from 105.4 mg = 68 mg/m2 ? 1.55 m2 Treatment Plan BSA from Measured weight), intravenous, at 148 mL/hr, Administer over 2 Hours, Once, On Mon12/22/20 at 1300, For 1 dose, Flush infusion line with dextrose 5 % in water prior to administration of any concomitant medication. sodium chloride 0.9 % injection 10 mL Given 12/22/2020 12:05 PM CDT 10 mL 10 mL, intravenous, As needed, line care, Implanted Vascular Access Device (IVAD) Venous Non-Valved, Starting on Mon12/22/20 at 0711, Prior to and following infusion, between multiple consecutive infusions, and prior to blood sampling, Given 12/22/2020 7:12 AM CDT 10 mL Port documented in this encounter Care Teams Delivery Assistant Relationship Specialty Start Date End Date Aviva Laws APRN, C.N.P., PCP - General Family Medicine 12/11/20 09/23/21 M.S.N. [address] [phone] documented as of this encounter
--- OUTSIDE RECORDS SUMMARY | 2021-11-03 07:04 | XMS_ITS | Encounter Summary ---
:[address] [facility] Address [address] [place] [address] Care Team Providers Name Role Phone Unavailable Primary Care Provider Unavailable Reason for Visit Reason Comments Med Refill Encounter Details Date Type Department Care Team Description 12/10/2020 Refill Department of Oncology in [facility] Med Refill [place], [place] [address] [facility] [address] [place] [address] [place] [phone] Social History Tobacco Use Types Packs/Day Years [...] More than 4 times per year 06/19/2021 worship services? Do you belong to any clubs [...] place to sleep or slept in a detention (including now)? Education Answer Date Recorded What [...] Visit Neurology Kenji Zaldivar M.D. [address] [place] [address] documented as of this encounter Visit Diagnoses Diagnosis Malignant Neoplasm Of Pancreas Adenocarc inoma (HCC) documented in this encounter
--- OUTSIDE RECORDS SUMMARY | 2021-11-03 07:04 | XMS_ITS | Encounter Summary ---
:1940 Author Organization [facility] Address [address] [place] [id number] Care Team Providers Name Role Phone Aviva Laws APRN, C.N.P., M.S.N. Primary Care Provider [phone] Reason for Referral Outpatient (Routine) - Closed Specialty Diagnoses / Procedures Referred By Contact Refer red To Contact Diagnoses Malignant Neoplasm Of Pancreas Adenocarcinoma (HCC) Neutropenia Chemotherapy Induced (HCC) Hyperbilirubinemia Kimberly Rios APRN, [facility] Procedures ERCP C.N.P., M.S. [address] [place] [phone] Referral ID Status Reason Start Date Expiration Date Visits Requ ested Visits Authorized [id number] Closed 01/18/2021 01/18/2022 1 1 Reason for Visit Episode Based Medications (Routine) - Authorized Specialty Diagnoses / Procedures Referred By Contact Refer red To Contact Diagnoses Malignant Neoplasm Of Pancreas Adenocarcinoma (HCC) Neutropenia Chemotherapy Induced (HCC) Kimberly Rios, Rst On[facility] HIGHNChicoP., M.S. [address] [facility] [address] [place] [phone] Referral ID Status Reason Start Date Expiration Date Visits V isits Requested Authorized [id number] Authorized 06/03/2020 06/03/2021 99 99 Encounter Details Date Type Department Care Team Description 01/18/2021 Office Visit Department of Gabriel, Hyperbilirubin emia (Primary Dx); Oncology in Kimberly LENNOX Phillips, Malignant [place] plasm Of Pancreas Adenocarcinoma (HCC); [place], [place] Frank M.S. Neutropenia Chemotherapy Induced (HCC); [address] Secondary Malignant Neoplasm Lymph Node (HCC) [place] [phone] Social History Tobacco Use Types Packs/Day Years [...] Sign Reading Time Taken Comments Blood Pressure 159/82 01/18/2021 10:02 AM CDT Pulse 73 01/18/2021 10:02 AM CDT Temperature 36.7 ??C (98.1 ??F) 01/18/2021 10:02 AM CDT Respiratory Rate 16 01/18/2021 10:02 AM CDT Oxygen Saturation 98% 01/18/2021 10:02 AM CDT Inhaled Oxygen Concentration - - Weight 51.9 kg (114 lb 6.7 oz) 01/18/2021 10:02 AM CDT Height 166.1 cm (5' 5.39) 01/18/2021 10:02 AM CDT Body Mass Index 18.81 01/18/2021 10:02 AM CDT documented in this encounter Progress Notes Kimberly Rios APRN, C.NChicoP., M.S. - 01/18/2021 10:10 AM CDT SUBJECTIVE PRIMARY CARE PHYSICIAN Aviva Laws APRN, C.N.Hossein., M.S.N. LOCAL ONCOLOGIST No care call center team leader to display PRIMARY [facility] ONCOLOGIST Noav Vivar M.B.B.S. Kimberly Rios APRN, C.N.P., M.S. CHIEF COMPLAINT / REASON FOR VISIT Azeb العراقي is a 80 y.o. 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 Cancer Staging No matching staging information [...] periaortic, and mesenteric lymph nodes was reported ([facility] review). 3.) 05/25/2020 CA [id number] [...] and the Common Hereditary Cancers panel from [facility] genetics lab. 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 06/08/2020 - Chemotherapy FOLFIRINOX ( Fluorouracil / Leucovorin / Irinotecan / Oxaliplatin ) Start Date: 06/08/2020 Interval History Ms. العراقي states for the last 2 weeks she has been noticing increased amount of discomfort in her stomach that radiates to her back. She has been taking Tylenol 1 tablet 2-3 times per day. At the most is 3 Tylenol tablets in a 24 hours. She does report that her urine has changed in color. She is questioning whether she has urinary tract infection. Denies any pain with urination. Her appetite is down because of her pain. She has had an extra 2 weeks off of systemic chemotherapy. Since she has been off of therapy her bowels have improved significantly. She does have residual tingling in the tips of her fingers. Denies any difficulties with dropping things or buttoning clothing. She denies chest pain, shortness of breath, lower extremity edema, elevated temperature or night sweats. The following portions of the patient's history [...] calcium level ) 180 capsule 3 ??? irgkddv-S2-vsdm-copper-marlo (Citracal-D3 Maximum Plus) 325 mg-12.5 mcg - 2.75 mg tablet Take bymouth. Taking 3-4 daily ??? dexAMETHasone (DECADRON) 4 mg tablet TAKE 2 TABLETS BY MOUTH DAILY. TAKE FOR 3 DAYS ON DAYS 2, 3, AND 4. 12 tablet 1 ??? diphenoxylate-atropine (LOMOTIL) 2.5-0.025 mg per tablet Take 1 tablet by mouth 4 (four) times aday. 120 tablet 2 ??? ESTRIOL MICRONIZED, BULK, MISC Three Times Weekly ??? ketoconazole (NIZORAL) 2 % cream MASSAGE INTO TO AFFECTED AREA ON FEET 1-2X DAILY UNTIL RESOLVED ??? levothyroxine (SYNTHROID, LEVOTHROID) 75 mcg tablet ??? lidocaine-prilocaine (EMLA) 2.5-2.5 % cream Apply 1 application topically as needed for pain (30minutes prior to port access). 30 g 0 ??? phjsff-vfovcvba-lsbywhc (CREON) 24,000-76,000-120,[address] capsule Take 2 capsules by mouth 3 (three) times a day with meals. 360 capsule 3 ??? lisinopriL (PRINIVIL,ZESTRIL) 20 mg tablet Take [...] g, 11 refills 30 g 11 ??? nystatin (MYCOSTATIN) 100,000 unit/mL suspension Take 5 mL (500,000 Units total) by mouth 4 (four) times a day. Swish in mouth and swallow. 280 mL 0 ??? ondansetron (ZOFRAN) 8 mg tablet Take 1 tablet (8 mg total) by mouth every 8 (eight) hours as needed for nausea or vomiting (unrelieved by prochlorperazine). 30 tablet 3 ??? prochlorperazine (COMPAZINE) 10 mg tablet Take 1 tablet (10 mg total) by mouth every 6 (six) hours as needed for nausea or vomiting. 30 tablet 3 Current Facility-Administered Medications on File Prior to Visit Medication Dose Route Frequency Provider Last Rate Last Admin ??? atropine injection 0.25 mg 0.25 mg subcutaneous Once Kimberly Rios APRN, C.N.P., M.S. ??? D5W infusion 10-250 mL/hr intravenous PRN Kimberly Rios APRN, C.N.P., M.S. ??? [COMPLETED] dexamethasone in NaCl 0.9% IVPB 12 mg (DECADRON) 12 mg intravenous Once Kimberly Rios APRN, C.N.P., M.S. Stopped at 01/18/21 1223 ??? fluorouraciL 3,000 mg in NaCl 0.9% 92 mL IVPB (ADRUCIL) 1,920 mg/m2 (Treatment Plan Measured) intravenous over 46 hr Kimberly Rios APRN, C.N.P., M.S. ??? [COMPLETED] fosaprepitant in NaCl 0.9% IVPB 150 mg (EMEND) 150 mg intravenous Once Kimberly Rios APRN, C.N.P., M.S. Stopped at 01/18/21 1319 ??? heparin flush 500 Units 500 Units intra-catheter PRN Kimberly Rios APRN, C.N.P., M.S. ??? irinotecan 220 mg in D5W 559 mL IVPB (CAMPTOSAR) 144 mg/m2 (Order-Specific) intravenous Once Kimberly Rios APRN, C.N.P., M.S. ??? leucovorin 600 mg in D5W 305 mL IVPB 400 mg/m2 (Treatment Plan Measured) intravenous Once Kimberly Rios APRN, C.N.P., M.S. ??? [COMPLETED] NaCl 0.9 % bolus 1,000 mL 1,000 mL intravenous Once Kimberly Rios APRN, C.N.P.,M.S. Stopped at 01/18/21 1320 ??? NaCl 0.9% infusion 10-250 mL/hr intravenous PRN Kimberly Rios APRN, C.N.P., M.S. ??? NaCl 0.9% infusion 10-250 mL/hr intravenous PRN Kimberly Rios APRN, C.N.P., M.S. ??? NaCl 0.9% infusion 20-500 mL/hr intravenous PRN Kimberly Rios APRN, C.N.P., M.S. ??? [COMPLETED] ondansetron in NaCl 0.9% IVPB 16 mg (ZOFRAN) 16 mg intravenous Once Kimberly Rios APRN, C.N.P., M.S. Stopped at 01/18/21 1243 ??? oxaliplatin 80 mg in D5W 291 mL IVPB (ELOXATIN) 51 mg/m2 (Treatment Plan Measured) intravenous Once Kimberly Rios APRN, C.N.P., M.S. 146 mL/hr at 01/18/21 1320 80 mg at 01/18/21 1320 ??? sodium chloride 0.9 % injection 10 mL 10 mL intra-catheter PRN Kimberly Rios APRN, C.N.P., M.S. ??? sodium chloride 0.9 % injection 10 mL 10 mL intra-catheter PRN Kimberly Rios APRN, C.N.P., M.S. ??? sodium chloride 0.9 % injection 20 mL 20 mL intra-catheter PRN Kimberly Rios APRN, C.N.P., M.S. REVIEW OF SYSTEMS Constitutional: Positive for fatigue and loss of appetite. Gastrointestinal: Positive for abdominal (belly) pain or cramping and diarrhea. Neurological: Positive for numbness or shooting pain in hands, arms, legs, or feet. All other systems reviewed and are negative. OBJECTIVE BP 159/82 (BP Location: Right arm, Patient Position: Sitting, Cuff Size: Regular) Pulse 73 Temp 36.7 ??C (Tympanic) Resp 16 Ht 166.1 cm Wt 51.9 kg SpO2 98% BMI 18.81 kg/m?? Onc CTCAE Toxicity Assessment: Yes Abdominal Pain: 1 Mild pain Anorexia: 2 Oral intake altered without significant weight loss or malnutrition; oral nutritional supplements indicated Diarrhea: 1 Increase of < 4 stools per day over baseline; mild increase in ostomy output comparedto baseline Peripheral Sensory Neuropathy: 1 Asymptomatic PHYSICAL EXAMINATION General: Well appearing 80 y.o. who is in no apparent distress. Appears to be at ECOG performance status 1 Skin: Non-jaundice. No rashes. Eyes: No scleral icterus ENT: Oral mucosa is pink and moist. No lesions, ulcerations or thrush. Lymph: No palpable cervical, submandibular, or supraclavicular lymphadenopathy Heart: Regular, rate and rhythm. No murmurs, rubs or gallops Lungs: Clear to auscultation bilaterally Abdomen: Soft, nontender, nondistended. Normoactive bowel sounds. No hepatomegaly. Extremities: No edema Neuro: Alert and oriented x 3. Calm interactive and appropriate. No focal neuro deficits. LABORATORY DATA Lab data reviewed. 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 العراقي I had the opportunity to review her past medical records and laboratory tests. At the time of our original consultation her CBC was the only test result available. At that time we discussed many things and this time will proceed with her next cycle FOLFIRINOX chemotherapy with dose reductions as outlined by Dr. Vivar. Will also use Neulasta as a stimulation. When all the lab tests had returned she was back in the chemotherapy unit. I went back in visited with her in the chemotherapy unit. At this time her liver function tests have increased significantly and her bilirubin is starting to climb. Per my discussion with Dr. Rivera we will proceed with her next cycle of systemic chemotherapy. We will also work on getting an ERCP with stenting if possible. I explained her the rationale for this procedure and how it is performed. She is hoping to transfer her care to [place] so she would not have to drive to [place] this winter. A bit concerned that she may be having disease progression however she was often extra 2 weeks because of low counts so it has been almost a month since her last chemotherapy administration. Prior to that her imaging studies withshowing slight disease progression. Her tumor markers also increased with you often time see that with an increased liver function and bilirubin levels. She stated full understanding and agreement with the plan. Denies any further questions or concerns. Has our telephone number to contact us should they have any further questions or concerns. PATIENT EDUCATION Ready to learn, no apparent learning barriers were identified; learning preferences include listening. Explained diagnosis and treatment plan; patient expressed understanding of the content. ADMINISTRATIVE BILLING I personally spent 48 minutes in care of the patient today. Time includes both non face to face and face to face patient care. documented in this encounter Plan of Treatment Upcoming Encounters Date Type Specialty Care Team Description 11/19/2021 Clinical Communication Admitting/Central Scheduling 11/23/2021 Comprehensive Visit Neurology Kenji Zaldivar M.D. [address] [place] [address] documented as of this encounter Visit Diagnoses Diagnosis Hyperbilirubinemia - Primary Malignant Neoplasm Of Pancreas Adenocarc inoma (HCC) Neutropenia Chemotherapy Induced (HCC) Secondary Malignant Neoplasm Lymph Node (HCC) documented in this encounter Care Teams Gasoline Tractor Operator Relationship Specialty Start Date End Date Aviva Laws APRN, C.N.P., PCP - General Family Medicine 12/11/20 09/23/21 M.S.N. [address], [place] [address] documented as of this encounter
--- OUTSIDE RECORDS SUMMARY | 2021-11-03 07:04 | XMS_ITS | Encounter Summary ---
:1940 Author Organization [facility] Address [address] [place] [address] Care Team Providers Name Role Phone Aviva Laws APRN C.N.P., M.S.N. Primary Care Provider [phone] Reason for Referral Outpatient (Routine) - Closed Specialty Diagnoses / Procedures Referred By Contact Refer red To Contact Procedures Delmar Mulligan M.D. [facility] OPH General eye exam [address] [place] [phone] Referral ID Status Reason Start Date Expiration Date Visits Requ ested Visits Authorized [id number] Closed 12/28/2020 12/28/2021 1 1 Reason for Visit Reason Comments Eye Exam Outpatient (Routine) - Closed Specialty Diagnoses / Procedures Referred By Contact Refer red To Contact Procedures Delmar Mulligan M.D. [facility]PH General eye exam [address] [place] [phone] Referral ID Status Reason Start Date Expiration Date Visits Requ ested Visits Authorized [id number] Closed 12/11/2019 12/10/2020 1 1 Encounter Details Date Type Department Care Team Description 12/28/2020 Comprehensive Visit Department of Delmar Mulligan Senile Ophthalmology issa Abel M.D. Nuclear Sclerosis [place], [place] [address] Bilateral (Primary [address] Dx) [place] [phone] Social History Tobacco Use Types Packs/Day Years [...] More than 4 times per year 06/19/2021 hoahaoism services? Do you belong to any clubs [...] documented as of this encounter Progress Notes Delmar Mulligan M.D. - 12/28/2020 9:15 AM CDT Azeb العراقي was seen today for Eye Exam #1 Cataract Senile Nuclear Sclerosis Bilateral Plan: Update glasses as desired. U/v protection. Ocular lubricants twice daily. F/u one year for routine exam or as needed. cex/ref documented in this encounter Plan of Treatment Upcoming Encounters Date Type Specialty Care Team Description 11/19/2021 Clinical Communication Admitting/Central Scheduling 11/23/2021 Comprehensive Visit Neurology Kenji Zaldivar M.D. [address] [place] [address] Scheduled Orders Name Type Priority Associated Diagnoses Order S chedule OPH General eye exam Procedures Routine Expecte d: 12/28/2020 (Approximate), Expires: 12/29/2023 documented as of this encounter Visit Diagnoses Diagnosis Cataract Senile Nuclear Sclerosis Bilate ral - Primary documented in this encounter Care Teams Finance Business Manager Relationship Specialty Start Date End Date Aviva Laws APRN, C.N.P., PCP - General Family Medicine 12/11/20 09/23/21 M.S.N. [address] [place] [address] documented as of this encounter
--- OUTSIDE RECORDS SUMMARY | 2021-11-03 07:04 | XMS_ITS | Encounter Summary ---
:1940 Author Organization [facility] Address [address] [address] Care Team Providers Name Role Phone Aviva Laws APRN, C.N.P., M.S.N. Primary Care Provider [phone] [phone] Reason for Visit Episode Based Medications (Routine) - Authorized Specialty Diagnoses / Procedures Referred By Contact Refer red To Contact Diagnoses Malignant Neoplasm Of Pancreas Adenocarcinoma (HCC) Neutropenia Chemotherapy Induced (HCC) Kimberly Rios, Rst Onc Trace Cespedes APRNN.Hossein., M.S. 200 [facility] 200 [place] [phone] Referral ID Status Reason Start Date Expiration Date Visits V isits Requested Authorized [id number] Authorized 06/03/2020 06/03/2021 99 99 Encounter Details Date Type Department Care Team Description 01/04/2021 Lab Department of Infusion Kimberly Rios, Malignant Neoplasm Of Pancreas Adenocarcinoma (HCC) (Primary Dx); Therapy in [facility] Trace HIGHNChico Catalan., M.S. Neutropenia Chemotherapy Induced (HCC) [address] 200 [place] [phone] Social History Tobacco Use Types Packs/Day Years [...] or relatives? How often do you attend gnosticist or More than 4 times per year 06/19/2021 zoroastrianism services? Do you belong to any clubs or Yes 06/19/2021 organizations such as gnosticist groups, unions, [employer] or athletic groups, or school groups? How [...] Visit Neurology Kenji Zaldivar M.D. [address] [place] [phone] documented as of this encounter Procedures Procedure Name Priority Date/Time Associated Diagnosis Comme nts CARBOHYDRATE AG 19-9 Routine 01/04/2021 9:53 Malignant Neoplas m Of Results for this (CA 19-9), S AM CDT Pancreas procedure are i n Adenocarcinoma ( HCC) the results Neutropenia section. Chemotherapy Induced (HCC) CBC WITH Routine 01/04/2021 9:53 Malignant Neoplasm Of Res ults for this DIFFERENTIAL, B AM CDT Pancreas procedure ar e in Adenocarcinoma ( HCC) the results Neutropenia section. Chemotherapy Induced (HCC) MAGNESIUM, S Routine 01/04/2021 9:53 Malignant Neoplasm Of Res ults for this AM CDT Pancreas procedure are i n Adenocarcinoma ( HCC) the results Neutropenia section. Chemotherapy Induced (HCC) BILIRUBIN DIRECT, S/P Routine 01/04/2021 9:53 Malignant Neopla sm Of Results for this AM CDT Pancreas procedure are i n Adenocarcinoma ( HCC) the results Neutropenia section. Chemotherapy Induced (HCC) COMPREHENSIVE Routine 01/04/2021 9:53 Malignant Neoplasm Of Re sults for this METABOLIC PANEL, S/P AM CDT Pancreas procedu re are in Adenocarcinoma ( HCC) the results Neutropenia section. Chemotherapy Induced (HCC) documented in this encounter Results Bilirubin, Direct (01/04/2021 9:53 AM CDT) athologist Signature Bilirubin, <0.2 0.0 - 0.3 01/04/2021 DTL Direct, S mg/dL 10:45 AM CDT Specimen Anatomical Collection Method Collection Time Receive d Time (Source) Location / / Volume Laterality Blood (Blood, 01/04/2021 9:53 AM 01/05/20 21 Venous) CDT 10:26 AM CDT Trace Rudolph APRNN.Hossein., M.S. LAB BLOOD ADD-ON Performing Organization Address City/State/ZIP Code Phon e Number [facility] - [address] [place], [place] [address] [facility] [place] [address] [address] [address] (ABNORMAL) Comprehensive Metabolic Panel (01/04/2021 9:53 AM CDT) athologist Signature Potassium, S 4.0 3.6 - 5.2 01/04/2021 DTL mmol/L 10:47 AM CDT Sodium, S 145 135 - 145 01/04/2021 DTL mmol/L 10:47 AM CDT Chloride, S 106 98 - 107 01/04/2021 DTL mmol/L 10:47 AM CDT Bicarbonate, S 28 22 - 29 01/04/2021 DTL mmol/L 10:47 AM CDT Anion Gap 11 7 - 15 01/04/2021 DTL 10:47 AM CDT BUN (Blood Urea 11 6 - 21 01/04/2021 DTL Nitrogen), S mg/dL 10:47 AM CDT Creatinine, S 0.84 0.59 - 1.04 01/04/2021 DTL mg/dL 10:47 AM CDT eGFR-Non 67 >=60 01/04/2021 DTL Black/ mL/min/BSA 10:47 AM CDT German Comment: ----ADDITIONAL INFORMATION---- Estimated GFR calculated using the 2009 CKD_EPI creatinine equation. eGFR-Black/ 77 >=60 mL/min/BSA 2020 10:47 AM CDT DTL Comment: ----ADDITIONAL INFORMATION---- Estimated GFR calculated using the 2009 CKD_EPI creatinine equation. Calcium, Total, S 10.0 8.8 - 10.2 mg/dL 01/04/2021 10:4 7 AM CDT DTL Glucose, S 90 70 - 140 mg/dL 01/04/2021 10:47 AM CDT DTL Protein, Total, S 6.0 (L) 6.3 - 7.9 g/dL 01/04/2021 10:47 AM CDT DTL Albumin, S 4.2 3.5 - 5.0 g/dL 01/04/2021 10:47 AM CDT DTL Aspartate Aminotransferase 37 8 - 43 U/L 01/04/2021 1 0:47 AM CDT DTL (AST), S Alkaline Phosphatase, S 92 35 - 104 U/L 01/04/2021 10 :47 AM CDT DTL Alanine Aminotransferase 38 7 - 45 U/L 01/04/2021 10: 47 AM CDT DTL (ALT), S Bilirubin, Total, S 0.2 <=1.2 mg/dL 01/04/2021 10:47 A M CDT DTL Specimen Anatomical Collection Method Collection Time Receive d Time (Source) Location / / Volume Laterality Blood (Blood, 01/04/2021 9:53 AM 01/05/20 Venous) CDT 10:26 AM CDT Kimberly Rios APRN, C.N.P., M.S. LAB BLOOD ADD-ON Performing Organization Address City/State/ZIP Code Phon e Number [facility] - 200 [place], [place] [address] [facility] [place] [address] [address] [address] [facility] (ABNORMAL) CBC with Differential, Blood (01/04/2021 9:53 AM CDT) [facility] Method Time Signature Hemoglobin 9.3 (L) 11.6 - 01/04/2021 DTL 15.0 g/dL 10:32 AM CDT Hematocrit 28.6 (L) 35.5 - 01/04/2021 DTL 44.9 % 10:32 AM CDT Erythrocytes 2.76 (L) 3.92 - 01/04/2021 DTL 5.13 10:32 AM CDT x10(12)/L MCV 103.6 (H) 78.2 - 01/04/2021 DTL 97.9 fL 10:32 AM CDT RBC Distrib Width 15.5 12.2 - 01/04/2021 DTL 16.1 % 10:32 AM CDT Platelet Count 138 (L) 157 - 371 01/04/2021 DTL x10(9)/L 10:32 AM CDT Leukocytes 1.6 (L) 3.4 - 9.6 01/04/2021 DTL x10(9)/L 10:32 AM CDT Neutrophils 0.76 (L) 1.56 - 01/04/2021 DTL 6.45 11:46 AM CDT x10(9)/L Comment: Rechecked Lymphocytes 0.42 (L) 0.95 - 3.07 x10(9)/L 01/04/2021 11:46 AM CDT DTL Monocytes 0.41 0.26 - 0.81 x10(9)/L 01/04/2021 11:46 AM CDT DTL Eosinophils <0.03 0.03 - 0.48 x10(9)/L 01/04/2021 11:46 AM CDT DTL Basophils <0.03 0.01 - 0.08 x10(9)/L 01/04/2021 11:46 AM CDT DTL Specimen Anatomical Collection Method Collection Time Receive d Time (Source) Location / / Volume Laterality Blood (Blood, 01/04/2021 9:53 AM 01/05/20 Venous) CDT 10:09 AM CDT Kimberly Rios APRN, C.N.P., M.S. LAB BLOOD ADD-ON Performing Organization Address [facility] Phon e Number [facility] - 200 [place], [place] [address] [facility] [place] [address] [facility] [address] [facility] Magnesium (01/04/2021 9:53 AM CDT) athologist Signature Magnesium, S 2.2 1.7 - 2.3 01/04/2021 DTL mg/dL 10:45 AM CDT Specimen Anatomical Collection Method Collection Time Receive d Time (Source) Location / / Volume Laterality Blood (Blood, 01/04/2021 9:53 AM 01/05/20 Venous) CDT 10:26 AM CDT Kimberly Rios APRN, C.N.P., M.S. LAB BLOOD ADD-ON Performing Organization Address City/[facility] Phon e Number [facility] - 200 [place], [place] [address] [place] [address] [facility] Carbohydrate Antigen 19-9 (CA 19-9) (01/04/2021 9:53 AM CDT) athologist Signature Carbohydrate Ag 29 <35 U/mL 01/04/2021 SDSC 19-9, S 3:57 PM CDT Comment: ----ADDITIONAL INFORMATION---- The testing method is an immunoenzymatic assay manufactured by [employer] and performed on the [employer] DxI 800. ? Values obtained with different assay met hods or kits may be different and cannot be used inte rchangeably. ? Test results cannot be interpreted as ab solute evidence for the presence or absence of malignant disease. Specimen Anatomical Collection Method Collection Time Receive d Time (Source) Location / / Volume Laterality Blood (Blood, 01/04/2021 9:53 AM 01/05/20 2:59 Venous) CDT PM CDT Harleen Rudolph APRN.N.Hossein., M.S. LAB BLOOD ADD-ON Performing Organization Address City/State/ZIP Code Phon e Number [facility] [address] [place], [place] [address] SUPPORT [facility]ENTER [facility] [place] [address] Laboratory Medicine and Pathology [address] [place] documented in this encounter Visit Diagnoses Diagnosis Malignant Neoplasm Of Pancreas Adenocarc inoma (HCC) - Primary Neutropenia Chemotherapy Induced (HCC) documented in this encounter Administered Medications Inactive Administered Medications - up to 3 most recent administrations Medication Order MAR Action Action Date Dose Rate Site heparin flush 500 Units Given 01/04/2021 1:01 PM CDT 500 Units 500 Units, intra-catheter, As needed, line care, Starting on Mon01/04/21 at 0943, When no infusion to maintain patency: For IVAD accessed, not in use, and/or prior to hospital discharge, flush every 7 days after 0.9% preservative-free NaCL flush. For IVAD NOT accessed or used, flush every 4 weeks after 0.9% preservative-free NaCL flush. Given 01/04/2021 9:56 AM CDT 500 Units sodium chloride 0.9 % injection 10 mL Given 01/04/2021 9:55 AM CDT 10 mL 10 mL, intra-catheter, As needed, line care, Starting on Mon01/04/21 at 0943, When IVAD Accessed and in Use: Flush prior to and following infusion, between multiple consecutive infusions, and prior to blood sampling. sodium chloride 0.9 % injection 20 mL Given 01/04/2021 9:56 AM CDT 20 mL 20 mL, intra-catheter, As needed, line care, Starting on Mon01/04/21 at 0943, When IVAD Accessed and in Use: Flush post blood transfusion or post blood sampling. documented in this encounter Care Teams Plant Supervisor Relationship Specialty Start Date End Date Aviva Laws, LENNOX, C.N.P., PCP - General Family Medicine 12/11/20 09/23/21 MSantyN. [address] [address] documented as of this encounter
--- OUTSIDE RECORDS SUMMARY | 2021-11-03 07:04 | XMS_ITS | Encounter Summary ---
:1940 Author Organization [facility] Address [address] [place] [address] Care Team Providers Name Role Phone Aviva Laws APRN, C.N.P., M.S.N. Primary Care Provider [phone] Reason for Visit Reason Comments ERCP Order Encounter Details Date Type Department Care Team Description 01/19/2021 Clinical Communication Department of Oncology Nova Vivar, NYA Order in [facility] M.B.B.S. [address] [facility] [address] [place] [phone] Social History Tobacco Use Types Packs/Day Years [...] More than 4 times per year 06/19/2021 nondenominational services? Do you belong to any clubs or Yes 06/19/2021 organizations such as gnosticist groups, unions, fraternal or athletic groups, or [...] Visit Neurology Kenji Zaldivar M.D. [address] [place] [address] documented as of this encounter Visit Diagnoses Not on filedocumented in this encounter Care Teams Manager Loss Prevention Relationship Specialty Start Date End Date Aviva Laws APRN, C.N.P., PCP - General Family Medicine 12/11/20 09/23/21 M.S.N. [address] [place] [address] documented as of this encounter
--- OUTSIDE RECORDS SUMMARY | 2021-11-03 07:04 | XMS_ITS | Encounter Summary ---
:1940 Author Organization [facility] Address [address] [place] [address] Care Team Providers Name Role Phone Aviva Laws APRN, C.N.PChico, M.S.N. Primary Care Provider [phone] [phone] Reason for Visit Reason Comments Other Discuss treatment plans for [place] infusion Appointment Request (Routine) - Closed Specialty Diagnoses / Procedures Referred By Contact Refer red To Contact Family Medicine Referral ID Status Reason Start Date Expiration Date Visits Requ ested Visits Authorized [id number] Closed 12/09/2020 12/09/2021 1 1 Encounter Details Date Type Department Care Team Description 12/11/2020 Office Visit Department of Family Aviva Laws, Neut ropenia Chemotherapy Induced (HCC) (Primary Dx); Medicine, Trace Donaldson APRNNJasson, Malignan t Neoplasm Of Pancreas Adenocarcinoma (HCC) Clinic[facility] [address] [place], [place] [phone] Social History Tobacco Use Types Packs/Day [...] or relatives? How often do you attend zoroastrianism or More than 4 times per year 06/19/2021 pentecostal services? Do you belong to any clubs or Yes 06/19/2021 organizations such as zoroastrianism groups, unions, fra[employer] or athletic groups, or school groups? How [...] Sign Reading Time Taken Comments Blood Pressure 147/80 12/11/2020 10:20 AM CDT Pulse 58 12/11/2020 10:20 AM CDT Temperature 36.8 ??C (98.2 ??F) 12/11/2020 10:20 AM CDT Respiratory Rate 14 12/11/2020 10:20 AM CDT Oxygen Saturation - - Inhaled Oxygen Concentration - - Weight 54.6 kg (120 lb 5.9 oz) 12/11/2020 10:20 AM CDT Height 165.4 cm (5' 5.12) 12/11/2020 10:20 AM CDT Body Mass Index 19.96 12/11/2020 10:20 AM CDT documented in this encounter Progress Notes Aviva Laws, LENNOX, C.N.P., M.S.N. - 12/11/2020 10:30 AM CDT SUBJECTIVE CHIEF COMPLAINT / REASON FOR VISIT Other (Discuss treatment plans for [place] infusion) HISTORY OF PRESENT ILLNESS Azeb العراقي is a pleasant 80 y.o. female who presents to the clinic today to establish care tofacilitate chemotherapy pump disconnects with the infusion therapy department. Receiving chemotherapy for pancreatic adenocarcinoma-managed by [facility]- JAZMIN Rios ([place])-last follow up 12/09/20. Finishing up outpatient chemotherapy infusion today-will require Neulasta SQ post pump d/c today in infusion therapy. Next infusion/follow up 12/22/20. Feeling well. Anticipating increased diarrhea post infusion-has prn meds available. REVIEW OF SYSTEMS: Gastrointestinal: Positive for diarrhea. Negative for abdominal (belly) pain or cramping, blood in stool, constipation, heartburn, nausea, vomiting and difficulty swallowing. The following systems were negative: CV, Respiratory, CURRENT MEDICATIONS Current Outpatient Medications Medication Sig Dispense Refill ??? calcitRIOL (ROCALTROL) 0.25 mcg capsule Take 2 capsules (0.5 mcg total) by mouth daily. (Patienttaking differently: Take 0.5 mcg by mouth daily. 2-3 tablets daily depending on calcium level ) 180 capsule 3 ??? yweqzba-O7-lhfq-copper-marlo (Citracal-D3 Maximum Plus) 325 mg-12.5 mcg - 2.75 mg tablet Take bymouth. Taking 3-4 daily ??? dexAMETHasone (DECADRON) 4 mg tablet TAKE 2 TABLETS BY MOUTH DAILY. TAKE FOR 3 DAYS ON DAYS 2, 3, AND 4. 12 tablet 1 ??? diphenoxylate-atropine (LOMOTIL) 2.5-0.025 mg per tablet Take 1 tablet by mouth 2 (two) times a day. 60 tablet 2 ??? ESTRIOL MICRONIZED, BULK, MISC Three Times Weekly ??? ketoconazole (NIZORAL) 2 % cream MASSAGE INTO TO AFFECTED AREA ON FEET 1-2X DAILY UNTIL RESOLVED ??? levothyroxine (SYNTHROID, LEVOTHROID) 75 mcg tablet ??? lidocaine-prilocaine (EMLA) 2.5-2.5 % cream Apply 1 application topically as needed for pain (30minutes prior to port access). 30 g 0 ??? hhoujm-auytugcl-bramhbz (CREON) 24,000-76,000-120,[address] capsule Take [...] for nausea or vomiting. 30 tablet 3 No current facility-administered medications for this visit. ALLERGIES / CONTRAINDICATIONS No Known Allergies OBJECTIVE BP 147/80 (BP Location: Right arm, Cuff Size: Regular) Pulse (!) 58 Temp 36.8 ??C (Temporal) Resp 14 Ht 165.4 cm Wt 54.6 kg BMI 19.96 kg/m?? PHYSICAL EXAMINATION Constitutional General: She is not in acute distress. Appearance: Normal appearance. She is underweight. She is not ill-appearing. HENT Head: Normocephalic and atraumatic. Cardiovascular Rate and Rhythm: Normal rate and regular rhythm. Heart sounds: Normal heart sounds. No murmur heard. No friction rub. No gallop. Pulmonary Effort: Pulmonary effort is normal. No respiratory distress. Breath sounds: Normal breath sounds. No wheezing or rales. Musculoskeletal Right lower leg: No edema. Left lower leg: No edema. Skin General: Skin is warm and dry. Capillary Refill: Capillary refill takes less than 2 seconds. Neurological General: No focal deficit present. Mental Status: She is alert and oriented to person, place, and time. Psychiatric Mood and Affect: Mood normal. Behavior: Behavior normal. ASSESSMENT / PLAN 1. Neutropenia Chemotherapy Induced (HCC) WBC 2.4 -will receive Neulasta SQ today after chemotherapy pump d/c @ 1330. 2. Malignant Neoplasm Of Pancreas Adenocarcinoma (HCC) Follow up in [place] per schedule 12/22/20. Please contact us here in [place] with questions or concerns. PATIENT EDUCATION Ready to learn, no apparent learning barriers were identified; learning preferences include listening. Explained diagnosis and treatment plan; patient expressed understanding of the content, discussed at length. All questions answered. Aviva Laws APRN, Harleen.N.P., M.S.N. documented in this encounter Plan of Treatment Upcoming Encounters Date Type Specialty Care Team Description 11/19/2021 Clinical Communication Admitting/Central Scheduling 11/23/2021 Comprehensive Visit Neurology Kenji Zaldivar M.D. [address] [place] [address] documented as of this encounter Visit Diagnoses Diagnosis Neutropenia Chemotherapy Induced (HCC) - Primary Malignant Neoplasm Of Pancreas Adenocarc inoma (HCC) documented in this encounter Care Teams Truck Terminal Manager Relationship Specialty Start Date End Date Aviva Laws APRN, C.N.P., PCP - General Family Medicine 12/11/20 09/23/21 M.S.N. [address] [place] [address] documented as of this encounter
--- OUTSIDE RECORDS SUMMARY | 2021-11-03 07:04 | XMS_ITS | Encounter Summary ---
:1940 Author Organization [facility] Address [address] [place] [address] Care Team Providers Name Role Phone Aviva Laws APRN, C.N.Hossein., M.S.N. Primary Care Provider [phone] [phone] Reason for Referral MRI/CAT/PET Scan (Routine) - Closed Specialty Diagnoses / Procedures Referred By Contact Refer red To Contact Radiology Diagnoses Malignant Neoplasm Of Pancreas Adenocarcinoma [facility]) [facility] Abdomen Pelvis with IV Contrast C.N.P., M.S. [address] [place] [address] Referral ID Status Reason Start Date Expiration Date Visits Requ ested Visits Authorized [id number] Closed 12/09/2020 12/09/2021 1 1 Reason for Visit MRI/CAT/PET Scan (Routine) - Closed Specialty Diagnoses / Procedures Referred By Contact Refer red To Contact Radiology Diagnoses Malignant Neoplasm Of Pancreas Adenocarcinoma (HCC) [facility] CT Chest with IV Contrast CT Chest without IV Contrast C.N.P., M.S. [address] [place] [phone] Referral ID Status Reason Start Date Expiration Date Visits Requ ested Visits Authorized [id number] Closed 12/09/2020 12/09/2021 1 1 Encounter Details Date Type Department Care Team Description 12/22/2020 Hospital Encounter Department of Vi Rios Neoplasm Of Radiology, [place] Kimberly L, ENGAGEMENT MANAGER, Pancreas A denocarcinoma Building, in C.N.P., M.S. ([facility]) [place], [address] [place], [place] 200 [facility] [address] [place], [place] [phone] (Work) [phone] Social History Tobacco Use Types Packs/Day Years [...] Sig Dispensed Refills Start Date End Date [id number]-m Take by mouth. 0 021 angan (Citracal-D3 [...] Take 1 tablet by 120 tablet 2 2 021 09/24/2021 (LOMOTIL) 2.5-0.025 mg mouth 4 (four) per tablet times a day. rxqmgj-zxndakpk-iacwous Take 2 capsules by 360 capsule 3 [...] documented as of this encounter Nursing Notes Jo-Ann Carrillo R.N. - 12/22/2020 7:15 AM CDT IVAD Contrast Injection Assessment Details: What type of IVAD? Bard Power Port If power???What identifiers were used (2 needed or Rad approval)? ID Card, Ibrahim Chain, or bracelet and [place] or Outside medical record (Date 06/05/2020) Tip placement verified? Location: SVC/RA Date (if applicable): 06/05/2020 Blood return verified? Yes VAPP Orders (Nurse to use Saline or Heparin post scan): Saline and heparin Is patient staying accessed after scan? Yes documented in this encounter Plan of Treatment Upcoming Encounters Date Type Specialty Care Team Description 11/19/2021 Clinical Communication Admitting/Central Scheduling 11/23/2021 Comprehensive Visit Neurology Kenji Zaldivar M.D. [address] [place] [address] documented as of this encounter Procedures Procedure Name Priority Date/Time Associated Diagnosis Comme nts CT ABDOMEN RAD - Routine 12/22/2020 7:46 Malignant Neoplasm Of Re sults for PELVIS WITH IV (most inpatients AM CDT Pancreas this proc edure CONTRAST and all Adenocarcinoma (HCC) are in the outpatients) results section. CT CHEST WITH IV RAD - Routine 12/22/2020 7:46 Malignant Neoplasm O f Results for CONTRAST (most inpatients AM CDT Pancreas this proced ure and all Adenocarcinoma (HCC) are in the outpatients) results section. documented in this encounter Results CT Chest with IV Contrast (12/22/2020 7:46 AM CDT) Anatomical Region Laterality Modality Chest, Thoracic RST LOS, Thoracic ARZ N/A Co mputed Tomography, Computed LOS, Thoracic ARZ LOS, Thoracic FLA Ag graphy LOS Specimen (Source) Anatomical Collection Method Collection Time Re ceived Time Location / / Volume Laterality 12/22/2020 8:22 AM CDT Impressions 12/22/2020 8:37 AM CDT 1. The tiny right lower lobe nodule that was new on the prior exam has resolved. 2. Other pulmonary nodules and a mildly enlarged right hilar lymph node are stable. Narrative 12/22/2020 8:37 AM CDT EXAM: CT CHEST WITH IV CONTRAST COMPARISON: Chest CT 10/12/2020. FINDINGS: This examination was performed in conjun ction with a CT of the abdomen, which will be reported separately. Resolution of the tiny nodule that was n ew in the right lower lobe on the prior exam. Unchanged pulmonary nodules as follows: 3 mm right middle lobe nodules (3/347, 3 14), 3 mm posterior right upper lobe (3/163), 1-2 mm left upper lobe (3/216), 5 mm left lower lobe (3/490). Dependent atelectasis posteriorly. Calci fied granuloma right lower lobe. Slight biapical scarring. Mild scattered atelec tasis or scarring. Small fatty left Bochdalek hernia. Stabl e 11 mm right hilar lymph node. Right IJ Port-A-Cath terminates in the right atri um. Coronary artery calcification. Degenerative changes spine. Anterior wed ging of mid thoracic vertebral bodies with mild kyphosis. T10 presumed bone is land, unchanged. 3D maximum intensity projection (MIP) im ages were created on a dependent workstation as ordered by the treating p rovider and reviewed by the radiologist to increase sensitivity for detection of pulmonary nodules. Procedure Note Nataly Alfonso M.D. - 12/22/2020For matting of this note might be different from the original. EXAM: CT CHEST WITH IV CONTRAST COMPARISON: Chest CT 10/12/2020. FINDINGS: This examination was performed in conjun ction with a CT of the abdomen, which will be reported separately. Resolution of the tiny nodule that was n ew in the right lower lobe on the prior exam. Unchanged pulmonary nodules as follows: 3 mm right middle lobe nodules (3/347, 3 14), 3 mm posterior right upper lobe (3/163), 1-2 mm left upper lobe (3/216), 5 mm left lower lobe (3/490). Dependent atelectasis posteriorly. Calci fied granuloma right lower lobe. Slight biapical scarring. Mild scattered atelec tasis or scarring. Small fatty left Bochdalek hernia. Stabl e 11 mm right hilar lymph node. Right IJ Port-A-Cath terminates in the right atri um. Coronary artery calcification. Degenerative changes spine. Anterior wed ging of mid thoracic vertebral bodies with mild kyphosis. T10 presumed bone is land, unchanged. 3D maximum intensity projection (MIP) im ages were created on a dependent workstation as ordered by the treating p rovianastacia and reviewed by the radiologist to increase sensitivity for detection of pulmonary nodules. IMPRESSION: 1. The tiny right lower lobe nodule that was new on the prior exam has resolved. 2. Other pulmonary nodules and a mildly enlarged right hilar lymph node are stable. Harleen Rudolph APRN.N.P., M.S. IMG CT PROCEDURES CT Abdomen Pelvis with IV Contrast (12/22/2020 7:46 AM CDT) Anatomical Region Laterality Modality Abdomen, Pelvis, Abdominal RST LOS, N/A Comp uted Tomography, Computed Abdominal ARZ LOS, Abdominal FLA LOS Dustin ography Specimen (Source) Anatomical Collection Method Collection Time Re ceived Time Location / / Volume Laterality 12/22/2020 7:30 AM CDT Impressions 12/22/2020 8:22 AM CDT Slightly increased size of pancreatic primary and metastatic locoregional lymph nodes. ??No new CT ev idence of metastatic disease in the abdomen or pelvis. Narrative 12/22/2020 8:22 AM CDT EXAM: ??CT ABDOMEN PELVIS WITH IV CONTRAST COMPARISON: ??CT abdomen with contrast d ated 10/12/2020, 07/31/2020, outside CT dated 05/21/2020 FINDINGS: ?? Interval increase in size of an exophyti c pancreatic head mass, which now measures 1.7 x 1.9 cm (series 3, image 1 75), previously 1.4 x 1.0 cm. Persistent increase in enhancement is seen within t his lesion. Redemonstration of mass effect with complete teardrop occlusion of the SMV. Aortocaval and peripancreatic lymph node s are again seen, overall stable. The soft tissue stranding around the celiac axis, superior mesenteric artery, splenic artery, and proximal superior me senteric artery soft tissue stranding appears similar, when allowing for diffe rences in technique. The liver is of normal size and morpholo gy and demonstrates a stable tiny hypodense lesion at the right hepatic do me, likely a small cyst. No new lesions are seen. No significant intrahepatic du ctal dilatation. The intrahepatic vasculature remains patent. No ascites. No enhancing peritoneal nodu larity. The gallbladder, spleen, and adrenal gla nds are within normal limits. Both kidneys enhance uniformly and symmetrica lly with stable bilateral renal cysts. Aortoiliac calcifications. 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 Degenerative changes of the spine. This examination was performed in conjun ction with a CT of the chest, which will be reported separately. Procedure Note Lexx Horne M.D. - 12/22/2020Formatti ng of this note might be different from the original. EXAM: CT ABDOMEN PELVIS WITH IV CONTRAST COMPARISON: CT abdomen with contrast real ed 10/12/2020, 07/31/2020, outside CT dated 05/21/2020 FINDINGS: Interval increase in size of an exophyti c pancreatic head mass, which now measures 1.7 x 1.9 cm (series 3, image 1 75), previously 1.4 x 1.0 cm. Persistent increase in enhancement is seen within t his lesion. Redemonstration of mass effect with complete teardrop occlusion of the SMV. Aortocaval and peripancreatic lymph node s are again seen, overall stable. The soft tissue stranding around the celiac axis, superior mesenteric artery, splenic artery, and proximal superior me senteric artery soft tissue stranding appears similar, when allowing for diffe rences in technique. The liver is of normal size and morpholo gy and demonstrates a stable tiny hypodense lesion at the right hepatic do me, likely a small cyst. No new lesions are seen. No significant intrahepatic du ctal dilatation. The intrahepatic vasculature remains patent. No ascites. No enhancing peritoneal nodu larity. The gallbladder, spleen, and adrenal gla nds are within normal limits. Both kidneys enhance uniformly and symmetrica lly with stable bilateral renal cysts. Aortoiliac calcifications. 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 Degenerative changes of the spine. This examination was performed in conjun ction with a CT of the chest, which will be reported separately. IMPRESSION: Slightly increased size of pancreatic pr imary and metastatic locoregional lymph nodes. No new CT evid ence of metastatic disease in the abdomen or pelvis. Kimberly Rios APRN, C.N.P., M.S. IMG CT PROCEDURES documented in this encounter Visit Diagnoses Diagnosis Malignant Neoplasm Of Pancreas Adenocarc inoma (HCC) documented in this encounter Administered Medications Inactive Administered Medications - up to 3 most recent administrations Medication Order MAR Action Action Date Dose Rate Site iohexoL 300 mg iodine/mL solution Given 12/22/2020 7:24 AM CDT 1 00 mL 1-200 mL (OMNIPAQUE) 1-200 mL, intravenous, Once in imaging, contrast, Starting on Mon12/22/20 at 0645, For 1 dose, Imaging Protocol Orders, Dose per Radiant Medication Guidelines sodium chloride (PF) 0.9 % injection 1-1 00 mL Given 12/22/2020 7:24 AM CDT 50 mL 1-100 mL, intravenous, Once, On Mon12/22/20 at 0700, For 1 dose, Imaging Protocol Orders sodium chloride 0.9 % injection 10 mL Given 12/22/2020 12:05 PM CDT 10 mL 10 mL, intravenous, As needed, line care, Implanted Vascular Access Device (IVAD) Venous Non-Valved, Starting on Mon12/22/20 at 0711, Prior to and following infusion, between multiple consecutive infusions, and prior to blood sampling, Given 12/22/2020 7:12 AM CDT 10 mL Port sodium chloride 0.9 % injection 10 mL Given 12/22/2020 7:45 AM CDT 10 mL 10 mL, intravenous, During hospitalization, line care, Prior to discharge, Starting on Mon12/22/20 at 0711, For 1 dose, Implanted Vascular Access Device (IVAD) Venous Non-Valved: Followed by heparin flush prior to discharge. documented in this encounter Care Teams Risk Manager Relationship Specialty Start Date End Date Aviva Laws APRN, C.N.P., PCP - General Family Medicine 12/11/20 09/23/21 M.S.N. [address] [address] documented as of this encounter
--- OUTSIDE RECORDS SUMMARY | 2021-11-03 07:04 | XMS_ITS | Encounter Summary ---
:1940 Author Organization [facility] Address [address] [place] [address] Care Team Providers Name Role Phone Aviva Laws APRN, C.N.P., M.S.N. Primary Care Provider [phone] [phone] Encounter Details Date Type Department Care Team Description 12/09/2020 Orders Only Department of Infusion Karen Leblanc, Therapy in [facility] [address] [place] [phone] Social History Tobacco Use Types Packs/Day Years [...] or relatives? How often do you attend adventist or More than 4 times per year 06/19/2021 jain services? Do you belong to any clubs or Yes 06/19/2021 organizations such as adventist groups, unions, fraternal or athletic groups, or [...] Visit Neurology Kenji Zaldivar M.D. [address] [place] [address] documented as of this encounter Visit Diagnoses Not on filedocumented in this encounter Care Teams Walnut Dehydrator Operator Relationship Specialty Start Date End Date Aviva Laws, LENNOX, C.N.P., PCP - General Family Medicine 12/11/20 09/23/21 [place] [address] [place] [phone] documented as of this encounter
--- OUTSIDE RECORDS SUMMARY | 2021-11-03 07:04 | XMS_ITS | Encounter Summary ---
:1940 Author Organization [facility] Address [address] [place] [address] Care Team Providers Name Role Phone Aviva Laws APRN, C.N.P., M.S.N. Primary Care Provider +1 [phone] Reason for Visit Reason Comments Neulasta Treatment letter referral to [facility] Encounter Details Date Type Department Care Team Description 12/09/2020 Clinical Communication Department of Munir Rios Treatment Oncology in Kimberly Phillips APRN, letter; refer ral to Frank Obrien, M.S. [facility] [address] [place] [address] [place] [phone] Social History Tobacco Use Types Packs/Day Years [...] get together with friends Three times a tristin anders 06/19/2021 or relatives? How often do you attend mormonism or More than 4 times per year 06/19/2021 yarsani services? Do you belong to any clubs [...] this encounter Miscellaneous Notes Telephone Encounter - Pema Haddad - 12/16/2020 8:36 AM CDT Do we have a valid auth to speak with caller? yes Reason for call: just an FYI, patient contacted Diana at [facility] and wants a referral to [facility] so she can have her pump dc'd there and her neulasta treatments done there instead of [place]. I will fax over demographics, office notes, labs, reports, etc to her at [phone]. Thank you, Vani RST ONC ROGO GAS ENGINE OPERATOR POD 1 Telephone Encounter - Tonya Sinclair R.N., O.C.N. - 12/09/2020 3:31 PM CDT ----- Message from Kimberly Rios APRN, C.N.P., M.S. sent at 12/09/2020 2:41 PM CDT ----- I guess patient gets her pump dc'd in [place]. I want her to get neulasta there as well and the chemo nurse called them and they said they do not use the [place] plan. They need to have a treatment letter. Could someone do that for Neulasta to be administered on the day she has her pump disconnected. Thank you. documented in this encounter Plan of Treatment Upcoming Encounters Date Type Specialty Care Team Description 11/19/2021 Clinical Communication Admitting/Central Scheduling 11/23/2021 Comprehensive Visit Neurology Kenji Zaldivar M.D. [address] [place] [address] documented as of this encounter Visit Diagnoses Not on filedocumented in this encounter Care Teams Senior Net Engineer Relationship Specialty Start Date End Date Aviva Laws APRN, C.N.P., PCP - General Family Medicine 12/11/20 09/23/21 M.S.N. [address], [place] [address] documented as of this encounter
--- OUTSIDE RECORDS SUMMARY | 2021-11-03 07:04 | XMS_ITS | Encounter Summary ---
:1940 Author Organization [facility] Address [address] [place] [address] Care Team Providers Name Role Phone Aviva Laws APRN, C.N.P., M.S.N. Primary Care Provider [phone] [phone] Reason for Referral Outpatient (Routine) - Closed Specialty Diagnoses / Procedures Referred By Contact Refer red To Contact Diagnoses Malignant Neoplasm Of Pancreas Adenocarcinoma (HCC) Kimberly Rios APRN, [facility] Procedures ONC Pump Disconnect C.N.P., M.S. [address] [place] [phone] Referral ID Status Reason Start Date Expiration Date Visits Requ ested Visits Authorized [id number] Closed 01/18/2021 01/18/2022 1 1 Reason for Visit Episode Based Medications (Routine) - Authorized Specialty Diagnoses / Procedures Referred By Contact Refer red To Contact Diagnoses Malignant Neoplasm Of Pancreas Adenocarcinoma (HCC) Neutropenia Chemotherapy Induced (HCC) Kimberly Rios, Rst Onc Rogo Trace HIGHNAbdirashid., M.S. [address] [facility] [address] [place] [phone] Referral ID Status Reason Start Date Expiration Date Visits V isits Requested Authorized [id number] Authorized 06/03/2020 06/03/2021 99 99 Encounter Details Date Type Department Care Team Description 01/18/2021 Infusion Department of Oncology Filikristina Kimberly Cb lignant Neoplasm Of Pancreas Adenocarcinoma (HCC) (Primary Dx); in [place], L, Trace HIGHNAbdirashid., Neutropeni a Chemotherapy Induced (HCC) [place] M.S. [address] [place] [phone] [phone] Social History Tobacco Use Types Packs/Day Years [...] Neurology Kenji Zaldivar M.D. [address] [place] [address] Scheduled Orders Name Type Priority Associated Diagnoses Order S chedule ONC Pump Disconnect Procedures Routine Malignant Neoplasm Of Expected: Pancreas Adenocarcinoma 12/26 (HCC) (Approximate), Expires: 2023 documented as of this encounter Visit Diagnoses Diagnosis Malignant Neoplasm Of Pancreas Adenocarc inoma (HCC) - Primary Neutropenia Chemotherapy Induced (HCC) documented in this encounter Administered Medications Inactive Administered Medications - up to 3 most recent administrations Medication Order MAR Action Action Date Dose Rate Site atropine injection 0.25 mg Given 01/18/2021 3:33 0.25 mg Right Lower 0.25 mg, subcutaneous, PM CDT Ab domen Once, On Mon01/18/21 at 1430, For 1 dose, Give prior to Irinotecan. Give subcutaneously if unable to give IV. Patient prefers SQ. dexamethasone in NaCl 0.9% IVPB 12 New Bag 01/18/2021 12:05 PM CDT 12 mg 200 mL/hr mg (DECADRON) 12 mg, intravenous, at 200 mL/hr, Administer over 15 Minutes, Once, On Mon01/18/21 at 1200, For 1 dose, Refrigerate fluorouraciL 3,000 mg in NaCl 0.9% 92 Given 01/18/2021 5:10 PM CDT 3,000 mg 2 mL/hr mL IVPB (ADRUCIL) 3,000 mg (rounded from 2,976 mg = 1,920 mg/m2 ? 1.55 m2 Treatment Plan BSA from Measured weight), intravenous, at 2 mL/hr, Administer over 46 Hours, over 46 hours, First dose on Mon01/18/21 at 1630, For 1 dose, Infuse at 2 mL/hr for 46 hours continuous infusion via CADD pump #[id number] fosaprepitant in NaCl 0.9% IVPB New Bag 01/18/2021 12:44 PM CD T 150 mg 500 mL/hr 150 mg (EMEND) 150 mg, intravenous, at 500 mL/hr, Administer over 30 Minutes, Once, On Mon01/18/21 at 1200, For 1 dose, Incompatible with solutions containing divalent cations (calcium, magnesium) including lactated Ringer's solution. irinotecan 220 mg in D5W 559 mL New Bag 01/18/2021 3:35 PM CDT 220 mg 373 mL/hr IVPB (CAMPTOSAR) 220 mg (rounded from 218.88 mg = 144 mg/m2 ? 1.52 m2 Order-specific BSA), intravenous, at 373 mL/hr, Administer over 90 Minutes, Once, On Mon01/18/21 at 1500, For 1 dose, May be given via y-site with leucovorin. Protect from light. leucovorin 600 mg in D5W 305 mL New Bag 01/18/2021 3:35 PM CDT 600 mg 203 mL/hr IVPB 600 mg (rounded from 620 mg = 400 mg/m2 ? 1.55 m2 Treatment Plan BSA from Measured weight), intravenous, at 203 mL/hr, Administer over 90 Minutes, Once, On Mon01/18/21 at 1500, For 1 dose, Can be given via y-site with irinotecan. NaCl 0.9 % bolus 1,000 mL New Bag 01/18/2021 12:06 PM CDT 1,000 mL 1000 mL/hr 1,000 mL, intravenous, at 1,000 mL/hr, Administer over 1 Hours, Once, On Mon01/18/21 at 1200, For 1 dose ondansetron in NaCl 0.9% IVPB 16 mg New Bag 01/18/2021 12:23 P M CDT 16 mg 232 mL/hr (ZOFRAN) 16 mg, intravenous, at 232 mL/hr, Administer over 15 Minutes, Once, On Mon01/18/21 at 1200, For 1 dose oxaliplatin 80 mg in D5W 291 mL IVPB New Bag 01/18/2021 1:20 P M CDT 80 mg 146 mL/hr (ELOXATIN) 80 mg (rounded from 79.05 mg = 51 mg/m2 ? 1.55 m2 Treatment Plan BSA from Measured weight), intravenous, at 146 mL/hr, Administer over 2 Hours, Once, On Mon01/18/21 at 1300, For 1 dose, Flush infusion line with dextrose 5 % in water prior to administration of any concomitant medication. documented in this encounter Care Teams Biomass Power Plant Manager Relationship Specialty Start Date End Date Aviva Laws APRN, C.N.P., PCP - General Family Medicine 12/11/20 09/23/21 M.S.N. [address] [place] [address] documented as of this encounter
--- OUTSIDE RECORDS SUMMARY | 2021-11-03 07:04 | XMS_ITS | Encounter Summary ---
:1940 Author Organization [facility] Address [address] [place] [address] Care Team Providers Name Role Phone Aviva Laws APRN, C.N.P., M.S.N. Primary Care Provider [phone] [phone] Reason for Visit Episode Based Medications (Routine) - Authorized Specialty Diagnoses / Procedures Referred By Contact Refer red To Contact Diagnoses Malignant Neoplasm Of Pancreas Adenocarcinoma (HCC) Neutropenia Chemotherapy Induced (HCC) Kimberly Rios, Rst Onc Coy HIGH C.N.P., M.S. [address] [facility] [address] [place] [phone] Referral ID Status Reason Start Date Expiration Date Visits V isits Requested Authorized [id number] Authorized 06/03/2020 06/03/2021 99 99 Encounter Details Date Type Department Care Team Description 01/04/2021 Office Visit Department of Nova Vivar, Malignant Neop lasm Of Pancreas Adenocarcinoma (HCC); Oncology in M.B.B.S. Neutropenia Chemotherapy Induced (HCC) [place], [place] [address] [facility] [address] [place] [phone] Social History Tobacco Use Types Packs/Day Years [...] More than 4 times per year 06/19/2021 alevism services? Do you belong to any clubs or Yes 06/19/2021 organizations such as anabaptist groups, unions, fra[employer]ixa [employer] or athletic groups, or school groups? How [...] Sign Reading Time Taken Comments Blood Pressure 157/81 01/04/2021 11:03 AM CDT Pulse 65 01/04/2021 11:03 AM CDT Temperature 36 ??C (96.8 ??F) 01/04/2021 11:03 AM CDT Respiratory Rate 16 01/04/2021 11:03 AM CDT Oxygen Saturation 96% 01/04/2021 11:03 AM CDT Inhaled Oxygen Concentration - - Weight 52.6 kg (115 lb 15.4 oz) 01/04/2021 11:03 AM CDT Height 166.1 cm (5' 5.39) 01/04/2021 11:03 AM CDT Body Mass Index 19.07 01/04/2021 11:03 AM CDT documented in this encounter Progress Notes Nova Vivar M.B.B.S. - 01/04/2021 11:10 AM CDT CHIEF COMPLAINT/PURPOSE OF VISIT: Metastatic pancreas cancer with lymphadenopathy. CURRENT TREATMENT/MANAGEMENT PLAN FOLFIRINOX PRIMARY CARE PHYSICIAN Aviva Laws APRN, C.N.P., M.S.N. REQUESTING PROVIDER Kimberly Rios APRN, C.N.P., M.S. [address] [place] [phone] LOCAL ONCOLOGIST No care steam clean machine operator to display PRIMARY [facility] [facility] ONCOLOGIST Nova Vivar M.B.B.S. Kimberly Rios APRN, C.N.P., M.S. HISTORY OF PRESENT ILLNESS: Ms. العراقي is a 80 y.o. female with the following oncologic history: Oncology History Malignant Neoplasm Of Pancreas Adenocarcinoma [...] periaortic, and mesenteric lymph nodes was reported ([facility] review). 3.) 05/25/2020 CA 19-9 178 [...] and the Common Hereditary Cancers panel from [facility]. 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 06/08/2020 - Chemotherapy FOLFIRINOX ( Fluorouracil / Leucovorin / Irinotecan / Oxaliplatin ) Start Date: 06/08/2020 INTERVAL HISTORY: Ms. العراقي returns today for evaluation. She continues to tolerate treatment well although she did have significant fatigue during the 1st week following the infusion. She denies any fever, chills and rigor. 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 She did have diarrhea for few days after pump disconnect. She typically feels well during the 2nd week of the cycle. Her appetite weight remains stable. ECOG performance status is 1. ROS: Pertinent items are noted in HPI; all other review of systems were negative. Rate your distress: 1 VITAL SIGNS: Vitals: 01/04/21 1103 BP: 157/81 BP Location: Left arm Patient Position: Sitting Cuff Size: Regular Pulse: 65 Resp: 16 Temp: 36 ??C TempSrc: Tympanic SpO2: 96% Weight: 52.6 kg Height: 166.1 cm PHYSICAL EXAM Vitals reviewed. Constitutional General: She is not in acute distress. Appearance: She is not toxic-appearing. Eyes General: No scleral icterus. Conjunctiva/sclera: Conjunctivae normal. Cardiovascular Rate and Rhythm: Normal rate. Heart sounds: Normal heart sounds. Pulmonary Effort: Pulmonary effort is normal. No respiratory distress. Musculoskeletal Right lower leg: No edema. Left lower leg: No edema. Right ankle: No swelling. Left ankle: No swelling. Neurological Mental Status: She is alert and oriented to person, place, and time. DIAGNOSTICS: I reviewed the imaging studies and agree with the interpretation as recorded. I reviewed the pertinent laboratory and diagnostic data. ASSESSMENT/PLAN: #1 Malignant Neoplasm Of Pancreas Adenocarcinoma (HCC) #2 Neutropenia Chemotherapy Induced (HCC) Ms. العراقي is a 80 y.o. female with metastatic pancreas cancer with abdominal lymphadenopathy currently on FOLFIRINOX. She had been on FOLFIRINOX since May 2020. She was started on Neulasta about 2 treatment ago with significant response with in her neutrophil count. Given that, we did not administer N eulasta with her most recent cycle. Her WBC today is 1.6 and neutrophil count 760. Given that we will delay her chemotherapy. Patient is having her family members over in the next few weeks and is looking at adjusting her chemo schedule so that she will feel well during their visit. We will plan to dose reduce her oxaliplatin to 60% of the standard dose to improve her counts and tolerability. She hadbeen on FOLFIRINOX for almost 6 months and I am concerned about cumulative toxicity at this point including worsening bone marrow suppression, fatigue, diarrhea and neuropathy. The Neulasta will help with keeping the neutrophil above treatment level but will not help with other side effects including thrombocytopenia and fatigue. Patient expressed understanding of the rationale for dose reduction andis agreeable. We will continue the fluorouracil and irinotecan at 80% of standard dose. I spoke withthe patient over the phone about her low neutrophil count. Patient would like to skip tomorrow's chemo appointment, and to resume on January 18, 2021 as per initially planned. Patient and her were given opportunity to ask questions, and they expressed understanding ofthe plan outlined above. PATIENT EDUCATION Ready to learn, no apparent learning barriers were identified; learning preferences include listening. Explained diagnosis and treatment plan; patient expressed understanding of the content. ADMINISTRATIVE BILLING I personally spent a total 25 minutes on the evaluation, development of the management plan, reviewing and setting of the chemotherapy plan, discussion/education and coordination of care as described above. This include nspa-[id number] and non gbvj-wn-qjva time. documented in this encounter Plan of Treatment Upcoming Encounters Date Type Specialty Care Team Description 11/19/2021 Clinical Communication Admitting/Central Scheduling 11/23/2021 Comprehensive Visit Neurology Kenji Zaldivar M.D. [address] [place] [address] documented as of this encounter Visit Diagnoses Diagnosis Malignant Neoplasm Of Pancreas Adenocarc inoma (HCC) Neutropenia Chemotherapy Induced (HCC) documented in this encounter Care Teams Heat Regulator Relationship Specialty Start Date End Date Aviva Laws APRN, C.N.P., PCP - General Family Medicine 12/11/20 09/23/21 M.S.N. [address] [place] [phone] documented as of this encounter
--- OUTSIDE RECORDS SUMMARY | 2021-11-03 07:04 | XMS_ITS | Encounter Summary ---
:1940 Author Organization [facility] Address [address] [place] [address] Care Team Providers Name Role Phone LawsAviva betts APRN, C.N.P., M.S.N. Primary Care Provider [phone] Reason for Visit Outpatient (Routine) - Closed Specialty Diagnoses / Procedures Referred By Contact Refer red To Contact Diagnoses Malignant Neoplasm Of Pancreas Adenocarcinoma (HCC) Kimberly Rios APRN, [facility] Procedures ONC Pump Disconnect C.N.P., M.S. 200 [place], [place] [phone] Referral ID Status Reason Start Date Expiration Date Visits Requ ested Visits Authorized [id number] Closed 12/22/2020 12/22/2021 1 1 Encounter Details Date Type Department Care Team Description 12/24/2020 Infusion Department of Infusion Kimberly Rios Ma lignant Neoplasm Of Therapy in [place] C.[place], [place] Adenocarcinoma [facility] (HCC) (Primary Dx) [address] [place] [phone] Social History Tobacco Use Types Packs/Day Years [...] Visit Neurology Kenji Zaldivar M.D. [address] [place] [address] documented as of this encounter Visit Diagnoses Diagnosis Malignant Neoplasm Of Pancreas Adenocarc inoma (HCC) - Primary documented in this encounter Administered Medications Inactive Administered Medications - up to 3 most recent administrations Medication Order MAR Action Action Date Dose Rate Site heparin flush 500 Units Given 12/24/2020 3:13 PM CDT 500 Units 500 Units, intra-catheter, As needed, line care, Starting on Laila 12/24/20 at 1512, When no infusion to maintain patency: For IVAD accessed, not in use, and/or prior to hospital discharge, flush every 7 days after 0.9% preservative-free NaCL flush. For IVAD NOT accessed or used, flush every 4 weeks after 0.9% preservative-free NaCL flush. sodium chloride 0.9 % injection 20 mL Given 12/24/2020 3:13 PM CDT 20 mL 20 mL, intra-catheter, As needed, line care, Starting on Laila 12/24/20 at 1512, When IVAD Accessed and in Use: Flush post blood transfusion or post blood sampling. documented in this encounter Care Teams Corrugator Operator Helper Relationship Specialty Start Date End Date Aviva Laws, LENNOX, C.N.P., PCP - General Family Medicine 12/11/20 09/23/21 [place]S.[place] [address] [address] documented as of this encounter
--- OUTSIDE RECORDS SUMMARY | 2021-11-03 07:04 | XMS_ITS | Encounter Summary ---
:1940 Author Organization [facility] Address [address] [place] [address] Care Team Providers Name Role Phone Aviva Laws Sara HIGH C.N.P., M.S.N. Primary Care Provider [phone] Encounter Details Date Type Department Care Team Description 01/19/2021 Orders Only Department of Oncology in [place], [place] Belinda HIGH., M.S. [address] [facility] [address] [place] [address] [place], [place] [phone] (Wo rk) Social History Tobacco Use Types [...] or relatives? How often do you attend quaker or More than 4 times per year 06/19/2021 muslim services? Do you belong to any clubs or Yes 06/19/2021 organizations such as quaker groups, unions, fraternal or athletic groups, or [...] Visit Neurology Kenji Zaldivar M.D. [address] [place] [address] documented as of this encounter Visit Diagnoses Not on filedocumented in this encounter Additional Health Concerns Infection Onset Date Last Indicated Resolved Time COVID19 Pending 01/22/2021 01/22/2021 01/22/2021 10:33 AM CDT COVID19 Pending 01/22/2021 01/23/2021 01/23/2021 10:57 PM CDT documented as of this encounter Care Teams Hospice Aide Relationship Specialty Start Date End Date Aviva Laws, LENNOX, C.N.P., PCP - General Family Medicine 12/11/20 09/23/21 M.S.N. [address] [place] [address] documented as of this encounter
--- OUTSIDE RECORDS SUMMARY | 2021-11-03 07:05 | XMS_ITS | Encounter Summary ---
:1940 Author Organization [facility] Address [address] [place] [address] Care Team Providers Name Role Phone Unavailable Primary Care Provider Unavailable Reason for Referral Outpatient (Routine) - Closed Specialty Diagnoses / Procedures Referred By Contact Refer red To Contact Diagnoses Malignant Neoplasm Of Pancreas Adenocarcinoma (HCC) Nova Vivar M.B.B.S. [facility] Procedures ONC Pump Disconnect [address] [place] [address] Referral ID Status Reason Start Date Expiration Date Visits Requ ested Visits Authorized [id number] Closed 10/28/2020 10/28/2021 1 1 Reason for Visit Episode Based Medications (Routine) - Authorized Specialty Diagnoses / Procedures Referred By Contact Refer red To Contact Diagnoses Malignant Neoplasm Of Pancreas Adenocarcinoma (HCC) Neutropenia Chemotherapy Induced (HCC) Kimberly Rios, Rst Onc Coy HIGH C.N.P., M.S. [address] [place] [phone] Referral ID Status Reason Start Date Expiration Date Visits V isits Requested Authorized [id number] Authorized 06/03/2020 06/03/2021 99 99 Encounter Details Date Type Department Care Team Description 10/28/2020 Infusion Department of Oncology Nova Vivar Malig nant Neoplasm Of in [facility] M[facility]B.B.S. Pancreas Adenocarcinoma [address] (HCC) (Primary Dx) [place] [phone] Social History Tobacco Use Types Packs/Day Years Used Date Smoking Tobacco: Never Smokeless Tobacco: Never Alcohol Use Standard Drinks/Week Comments Yes 0 (1 standard drink = 0.6 oz [...] or relatives? How often do you attend advent or More than 4 times per year 06/19/2021 tenriism services? Do you belong to any clubs or Yes 06/19/2021 organizations such as advent groups, unions, fraternal or athletic groups, or [...] Sign Reading Time Taken Comments Blood Pressure 143/56 10/28/2020 8:09 AM CDT Pulse 67 10/28/2020 8:09 AM CDT Temperature 36.8 ??C (98.2 ??F) 10/28/2020 8:09 AM CDT Respiratory Rate - - Oxygen Saturation - - Inhaled Oxygen Concentration - - Weight 51.1 kg (112 lb 8.7 oz) 10/28/2020 8:09 AM CDT Height - - Body Mass Index 18.53 10/12/2020 2:55 PM CDT documented in this encounter Plan of Treatment Upcoming Encounters Date Type Specialty Care Team Description 11/19/2021 Clinical Communication Admitting/Central Scheduling 11/23/2021 Comprehensive Visit Neurology Kenji Zaldivar M.D. 200 [place] [address] Scheduled Orders Name Type Priority Associated Diagnoses Order S chedule ONC Pump Disconnect Procedures Routine Malignant Neoplasm Of Expected: Pancreas Adenocarcinoma 08/2020 (HCC) (Approximate), Expires: 2023 documented as of this encounter Visit Diagnoses Diagnosis Malignant Neoplasm Of Pancreas Adenocarc inoma (HCC) - Primary documented in this encounter Administered Medications Inactive Administered Medications - up to 3 most recent administrations Medication Order MAR Action Action Date Dose Rate Site atropine injection 0.25 mg Given 10/28/2020 11:49 0.25 mg Right Upper 0.25 mg, subcutaneous, AM CDT Ab domen Once, On Mon10/28/20 at 1100, For 1 dose, Give prior to Irinotecan. Give subcutaneously if unable to give IV. Patient prefers SQ. dexamethasone in NaCl 0.9% IVPB 12 New Bag 10/28/2020 9:04 AM CDT 12 mg 200 mL/hr mg (DECADRON) 12 mg, intravenous, at 200 mL/hr, Administer over 15 Minutes, Once, On Mon10/28/20 at 0830, For 1 dose, Refrigerate fluorouraciL 3,000 mg in NaCl 0.9% 92 Given 10/28/2020 1:30 PM CDT 3,000 mg 2 mL/hr mL IVPB (ADRUCIL) 3,000 mg (rounded from 3,072 mg = 1,920 mg/m2 ? 1.6 m2 Treatment Plan BSA from Measured weight), intravenous, at 2 mL/hr, Administer over 46 Hours, over 46 hours, First dose on Mon10/28/20 at 1300, For 1 dose, Infuse at 2 mL/hr for 46 hours continuous infusion via CADD pump #[id number] fosaprepitant 150 mg in NaCl 0.9% New Bag 10/28/2020 9:20 AM C DT 150 mg 510 mL/hr IVPB (EMEND) 150 mg, intravenous, at 510 mL/hr, Administer over 30 Minutes, Once, On Mon10/28/20 at 0830, For 1 dose, Incompatible with solutions containing divalent cations (calcium, magnesium) including lactated Ringer's solution. irinotecan 220 mg in D5W 559 mL New Bag 10/28/2020 11:54 AM CD T 220 mg 373 mL/hr IVPB (CAMPTOSAR) 220 mg (rounded from 218.88 mg = 144 mg/m2 ? 1.52 m2 Order-specific BSA), intravenous, at 373 mL/hr, Administer over 90 Minutes, Once, On Mon10/28/20 at 1130, For 1 dose, May be given via y-site with leucovorin. Protect from light. leucovorin 650 mg in D5W 307.5 mL New Bag 10/28/2020 11:51 AM CDT 650 mg 205 mL/hr IVPB 650 mg (rounded from 640 mg = 400 mg/m2 ? 1.6 m2 Treatment Plan BSA from Measured weight), intravenous, at 205 mL/hr, Administer over 90 Minutes, Once, On Mon10/28/20 at 1130, For 1 dose, Can be given via y-site with irinotecan. NaCl 0.9 % bolus 1,000 mL New Bag 10/28/2020 8:42 AM CDT 1,000 mL 1000 mL/hr 1,000 mL, intravenous, at 1,000 mL/hr, Administer over 1 Hours, Once, On Mon10/28/20 at 0830, For 1 dose ondansetron in NaCl 0.9% IVPB 16 mg New Bag 10/28/2020 8:42 AM CDT 16 mg 232 mL/hr (ZOFRAN) 16 mg, intravenous, at 232 mL/hr, Administer over 15 Minutes, Once, On Mon10/28/20 at 0830, For 1 dose oxaliplatin 100 mg in D5W 295 mL New Bag 10/28/2020 9:51 AM CD T 100 mg 148 mL/hr IVPB (ELOXATIN) 100 mg (rounded from 108.8 mg = 68 mg/m2 ? 1.6 m2 Treatment Plan BSA from Measured weight), intravenous, at 148 mL/hr, Administer over 2 Hours, Once, On Mon10/28/20 at 0930, For 1 dose, Flush infusion line with dextrose 5 % in water prior to administration of any concomitant medication. sodium chloride 0.9 % injection 10 mL Given 10/28/2020 8:42 AM CDT 10 mL 10 mL, intra-catheter, As needed, line care, Starting on Mon10/28/20 at 0827, When IVAD Accessed and in Use: Flush prior to and following infusion, between multiple consecutive infusions, and prior to blood sampling. documented in this encounter
--- OUTSIDE RECORDS SUMMARY | 2021-11-03 07:05 | XMS_ITS | Encounter Summary ---
:1940 Author Organization [facility] Address [address] [place] [address] Care Team Providers Name Role Phone Unavailable Primary Care Provider Unavailable Reason for Visit Reason Comments Med Refill loperamide Encounter Details Date Type Department Care Team Description 12/01/2020 Refill Department of Oncology Nova Vivar Med R efill (loperamide ) in [facility] M.B.B.S. [address] [facility] [address] [place] [address] [place], [place] [phone] Social History Tobacco Use Types Packs/Day Years [...] More than 4 times per year 06/19/2021 yazidism services? Do you belong to any clubs [...] this encounter Miscellaneous Notes Telephone Encounter - Di Nolen - 12/01/2020 11:03 AM CDT Surescripts created refill request. documented in this encounter Plan of Treatment Upcoming Encounters Date Type Specialty Care Team Description 11/19/2021 Clinical Communication Admitting/Central Scheduling 11/23/2021 Comprehensive Visit Neurology Kenji Zaldivar M.D. 200 [place] [address] documented as of this encounter Visit Diagnoses Diagnosis Malignant Neoplasm Of Pancreas (HCC) documented in this encounter
--- OUTSIDE RECORDS SUMMARY | 2021-11-03 07:05 | XMS_ITS | Encounter Summary ---
:1940 Author Organization [facility] Address [address] [place] [address] Care Team Providers Name Role Phone Unavailable Primary Care Provider Unavailable Reason for Visit Reason Comments Med Refill Encounter Details Date Type Department Care Team Description 10/15/2020 Refill Department of Oncology in [place] M.B.B.S. Med Refill [place], [place] [address] [facility] [address] [place] [address] [place] [address] [phone] Social History Tobacco Use Types Packs/Day Years [...] or slept in a detention (including now)? Sex Assigned at Date Recorded Female 07/03/2017 2:07 PM CDT documented as of this encounter Plan of Treatment Upcoming Encounters Date Type Specialty Care Team Description 11/19/2021 Clinical Communication Admitting/Central Scheduling 11/23/2021 Comprehensive Visit Neurology Kenji Zaldivar M.D. 200 [place] [address] documented as of this encounter Visit Diagnoses Not on filedocumented in this encounter
--- OUTSIDE RECORDS SUMMARY | 2021-11-03 07:05 | XMS_ITS | Encounter Summary ---
:1940 Author Organization [facility] Address [address] [place] [address] Care Team Providers Name Role Phone Unavailable Primary Care Provider Unavailable Encounter Details Date Type Department Care Team Description 11/10/2020 Orders Only Department of Oncology in [place], [place] Frank HIGH, M.S. [address] [facility] [address] [place] [address] [place], [place] [phone] (Wo rk) Social History Tobacco Use Types [...] More than 4 times per year 06/19/2021 caodaism services? Do you belong to any clubs [...] Visit Neurology Kenji Zaldivar M.D. [address] [place] [address] documented as of this encounter Visit Diagnoses Not on filedocumented in this encounter
--- OUTSIDE RECORDS SUMMARY | 2021-11-03 07:05 | XMS_ITS | Encounter Summary ---
:1940 Author Organization [facility] Address [address] [place] [address] Care Team Providers Name Role Phone Unavailable Primary Care Provider Unavailable Reason for Visit Outpatient (Routine) - Closed Specialty Diagnoses / Procedures Referred By Contact Refer red To Contact Diagnoses Malignant Neoplasm Of Pancreas Adenocarcinoma (HCC) Nova Vivar M.B.B.S. [facility] Procedures ONC Pump Disconnect [address] [place], [place] [address] Referral ID Status Reason Start Date Expiration Date Visits Requ ested Visits Authorized [id number] Closed 10/28/2020 10/28/2021 1 1 Encounter Details Date Type Department Care Team Description 10/30/2020 Infusion Department of Infusion Nova Vivar Malig nant Neoplasm Of Therapy in [place] Pancreas Adenocarcinoma [place] [address] [facility] (HCC) (Primary Dx) [address] [facility] [place] [phone] Social History Tobacco Use Types Packs/Day Years [...] or relatives? How often do you attend restorationist or More than 4 times per year 06/19/2021 mosque services? Do you belong to any clubs or Yes 06/19/2021 organizations such as restorationist groups, unions, fraPickatale or athletic groups, or school groups? How [...] Sign Reading Time Taken Comments Blood Pressure 142/65 10/30/2020 11:50 AM CDT Pulse 71 10/30/2020 11:50 AM CDT Temperature 36.7 ??C (98.1 ??F) 10/30/2020 11:50 AM CDT Respiratory Rate - - Oxygen Saturation - - Inhaled Oxygen Concentration - - Weight - - Height - - Body Mass Index - - documented in this encounter Plan of Treatment Upcoming Encounters Date Type Specialty Care Team Description 11/19/2021 Clinical Communication Admitting/Central Scheduling 11/23/2021 Comprehensive Visit Neurology Kenji Zaldivar M.D. 200 [place] [address] documented as of this encounter Visit Diagnoses Diagnosis Malignant Neoplasm Of Pancreas Adenocarc inoma (HCC) - Primary documented in this encounter Administered Medications Inactive Administered Medications - up to 3 most recent administrations Medication Order MAR Action Action Date Dose Rate Site heparin flush 500 Units Given 10/30/2020 11:52 AM CDT 500 Units 500 Units, intra-catheter, As needed, line care, Starting on Mon10/30/20 at 1147, When no infusion to maintain patency: For IVAD accessed, not in use, and/or prior to hospital discharge, flush every 7 days after 0.9% preservative-free NaCL flush. For IVAD NOT accessed or used, flush every 4 weeks after 0.9% preservative-free NaCL flush. sodium chloride 0.9 % injection 20 mL Given 10/30/2020 11:52 AM CDT 20 mL 20 mL, intra-catheter, As needed, line care, Starting on Mon10/30/20 at 1147, When IVAD Accessed and in Use: Flush post blood transfusion or post blood sampling. documented in this encounter
--- OUTSIDE RECORDS SUMMARY | 2021-11-03 07:05 | XMS_ITS | Encounter Summary ---
:1940 Author Organization [facility] Address [address] [place] [id number] Care Team Providers Name Role Phone Unavailable Primary Care Provider Unavailable Encounter Details Date Type Department Care Team Description 10/27/2020 Orders Only Department of Oncology in [facility] [place], [place] Frank HIGH, M.S. [address] [facility] [address] [place] [address] [place], [place] [phone] (Wo rk) Social History Tobacco Use Types [...] or relatives? How often do you attend christian or More than 4 times per year 06/19/2021 alevism services? Do you belong to any clubs or Yes 06/19/2021 organizations such as christian groups, unions, fraternal or athletic groups, or [...] Visit Neurology Kenji Zaldivar M.D. [address] [place] [address] documented as of this encounter Visit Diagnoses Not on filedocumented in this encounter
--- OUTSIDE RECORDS SUMMARY | 2021-11-03 07:05 | XMS_ITS | Encounter Summary ---
:1940 Author Organization [facility] Address [address] [place] [address] Care Team Providers Name Role Phone Unavailable Primary Care Provider Unavailable Reason for Visit Outpatient (Routine) - Closed Specialty Diagnoses / Procedures Referred By Contact Refer red To Contact Oncology Kimberly Rios APRN, [place], [facility] [address] [place] [address] [phone] Referral ID Status Reason Start Date Expiration Date Visits Requ ested Visits Authorized [id number] Closed 11/24/2020 11/24/2021 1 1 Encounter Details Date Type Department Care Team Description 11/24/2020 Office Visit Department of Kimberly Rios eoplasm Of Oncology in [place] Phillips C.N.P., Pancreas Ad enocarcinoma [facility] (HCC) (Primary Dx) [address] [place] [address] [address] [place] [phone] Social History Tobacco Use Types Packs/Day Years [...] or relatives? How often do you attend confucianism or More than 4 times per year 06/19/2021 christian services? Do you belong to any clubs or Yes 06/19/2021 organizations such as confucianism groups, unions, fraternal or athletic groups, or [...] documented as of this encounter Progress Notes Kimberly Rios APRN, C.N.P., M.S. - 11/24/2020 9:20 AM CDT SUBJECTIVE PRIMARY CARE PHYSICIAN No primary care provider on file. LOCAL ONCOLOGIST No care child care team lead to display PRIMARY HUBBARD ONCOLOGIST Nova Vivar M.B.B.S. Kimberly Rios APRN, C.N.P., M.S. CHIEF COMPLAINT / REASON FOR VISIT Azeb العراقي is a 80 y.o. 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 Cancer [...] periaortic, and mesenteric lymph nodes was reported ([facility] review). 3.) 05/25/2020 CA [id number] [...] and the Common Hereditary Cancers panel from [facility]. 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 06/08/2020 - Chemotherapy FOLFIRINOX ( Fluorouracil / Leucovorin / Irinotecan / Oxaliplatin ) Start Date: 06/08/2020 Interval History Ms. العراقي reports that she has been feeling relatively well. She did report that her tongue felt funny after her last treatment and it was white coated for several days. Denies any difficulties with swallowing. Food has an altered taste. Weight has remained relatively stable. Energy level is low the day the pump is removed in the following day. Takes for 3 or 4 days to get back to her normal energy level. She does occasionally have loose stools for which she uses Imodium and Lomotil. She has recently noticed a rash in the bottom of her right foot. She does have slight tingling in her both legs often on. She denies chest pain, shortness of breath, [...] calcium level ) 180 capsule 3 ??? iqjodep-O3-wewh-copper-marlo (Citracal-D3 Maximum Plus) 325 mg-12.5 mcg - 2.75 mg tablet Take bymouth. Taking 3-4 daily ??? dexAMETHasone (DECADRON) 4 mg tablet TAKE 2 TABLETS BY MOUTH DAILY. TAKE FOR 3 DAYS ON DAYS 2, 3, AND 4. (Patient taking differently: Take 4 mg by mouth as directed. Days 2, 3, and 4 ) 12 tablet 1 ??? diphenoxylate-atropine (LOMOTIL) 2.5-0.025 mg per tablet Take 1 tablet by mouth 2 (two) times a day. 60 tablet 2 ??? ESTRIOL MICRONIZED, BULK, MISC Three Times Weekly ??? levothyroxine (SYNTHROID, LEVOTHROID) 75 mcg tablet ??? lidocaine-prilocaine (EMLA) 2.5-2.5 % cream Apply 1 application topically as needed for pain (30minutes prior to port access). 30 g 0 ??? wcmmlt-ezbjdjqy-nspiiav (CREON) 24,000-76,000-120,[address] capsule Take [...] TAKE 2 CAPS EVERY 4HRS AT NIGHT 24 capsule 3 ??? LORazepam (ATIVAN) 0.5 mg tablet Take 1 tablet (0.5 mg total) by mouth every 8 (eight) hours as needed (nausea, vomiting) for up to 30 doses. If ineffective, may repeat once after 30 minutes. (Patient not taking: Reported on 08/17/2020 ) 30 tablet 3 ??? magnesium oxide (MAG-OX) [...] for nausea or vomiting (unrelieved by prochlorperazine). (Patient not taking: Reported on 08/17/2020 ) 30 tablet 3 ??? prochlorperazine (COMPAZINE) 10 mg tablet Take 1 tablet (10 mg total) by mouth every 6 (six) hours as needed for nausea or vomiting. (Patient not taking: Reported on 09/14/2020 ) 30 tablet 3 Current Facility-Administered Medications on File Prior to Visit Medication Dose Route Frequency Provider Last Rate Last Admin ??? [COMPLETED] atropine injection 0.25 mg 0.25 mg subcutaneous Once Kimberly Rios APRN, C.N.P., M.S. 0.25 mg at 11/24/20 1443 ??? D5W infusion 10-250 mL/hr intravenous PRN Kimberly Rios APRN, C.N.P., M.S. ??? [COMPLETED] dexamethasone in NaCl 0.9% IVPB 12 mg (DECADRON) 12 mg intravenous Once Kimberly Rios APRN, C.N.P., M.S. Stopped at 11/24/20 1148 ??? fluorouraciL 3,000 mg in NaCl 0.9% 92 mL IVPB (ADRUCIL) 1,920 mg/m2 (Treatment Plan Measured) intravenous over 46 hr Kimberly Rios APRN, C.N.P., M.S. ??? [COMPLETED] fosaprepitant 150 mg in NaCl 0.9% (non-PVC) IVPB (EMEND) 150 mg intravenous Once Kimberly Rios APRN, C.N.P., M.S. Stopped at 11/24/20 1241 ??? heparin flush 500 Units 500 Units intra-catheter PRN Kimberly Rios APRN, C.N.P., M.S. ??? irinotecan 220 mg in D5W 559 mL IVPB (CAMPTOSAR) 144 mg/m2 (Order-Specific) intravenous Once Kimberly Rios APRN, C.N.P., M.S. 373 mL/hr at 11/24/20 1448 220 mg at 11/24/20 1448 ??? leucovorin 650 mg in D5W 307.5 mL IVPB 400 mg/m2 (Treatment Plan Measured) intravenous Once Kimberly Rios APRN, C.N.P., M.S. 650 mg at 11/24/20 1446 ??? [COMPLETED] NaCl 0.9 % bolus 1,000 mL 1,000 mL intravenous Once Kimberly Rios APRN, C.N.P.,M.S. Stopped at 11/24/20 1241 ??? NaCl 0.9% infusion 10-250 mL/hr intravenous PRN Kimberly Rios APRN, C.N.P., M.S. ??? NaCl 0.9% infusion 10-250 mL/hr intravenous PRN Kimberly Rios APRN, C.N.P., M.S. ??? NaCl 0.9% infusion 20-500 mL/hr intravenous PRN Kimberly Rios APRN, C.N.P., M.S. ??? [COMPLETED] ondansetron in NaCl 0.9% IVPB 16 mg (ZOFRAN) 16 mg intravenous Once Kimberly Rios APRN, C.N.P., M.S. Stopped at 11/24/20 1208 ??? [COMPLETED] oxaliplatin 100 mg in D5W 295 mL IVPB (ELOXATIN) 68 mg/m2 (Treatment Plan Measured) intravenous Once Kimberly Rios APRN, C.N.P., M.S. Stopped at 11/24/20 1442 ??? sodium chloride 0.9 % injection 10 mL 10 mL intra-catheter PRN Hartgers, Kimberly L, SLATE SPLITTER, C.N.P., M.S. 10 mL at 11/24/20 1127 ??? sodium chloride 0.9 % injection 10 mL 10 mL intra-catheter PRN Kimberly Rios, [place], C.N.P., M.S. ??? sodium chloride 0.9 % injection 20 mL 20 mL intra-catheter PRN Kimberly Rios [facility] Phillips, C.N.P., M.S. ??? [DISCONTINUED] D5W infusion 10-250 mL/hr intravenous PRN Kimberly Rios Alan, [place], C.N.P., M.S. ??? [DISCONTINUED] heparin flush 500 Units 500 Units intra-catheter PRN Kimberly Rios [facility] Phillips, C.N.P., M.S. 500 Units at 11/24/20 0817 ??? [DISCONTINUED] NaCl 0.9% infusion 10-250 mL/hr intravenous PRN Filikristina Kimberly [place] Phillips, C.N.P., M.S. ??? [DISCONTINUED] NaCl 0.9% infusion 10-250 mL/hr intravenous PRN Kimberly Rios [place] Phillips, C.N.P., M.S. ??? [DISCONTINUED] NaCl 0.9% infusion 20-500 mL/hr intravenous PRN Kimberly Rios [place] Phillips, C.N.P., M.S. ??? [DISCONTINUED] sodium chloride 0.9 % injection 10 mL 10 mL intra-catheter PRN Kimberly Rios [place] Phillips, C.N.P., M.S. ??? [DISCONTINUED] sodium chloride 0.9 % injection 10 mL 10 mL intra-catheter PRN Kimberly Rios [place] Phillips, C.N.P., M.S. ??? [DISCONTINUED] sodium chloride 0.9 % injection 20 mL 20 mL intra-catheter PRN Kimberly Rios [place] Phillips, C.N.P., M.S. 20 mL at 11/24/20 0817 REVIEW OF SYSTEMS Constitutional: Positive for fatigue. Skin: Positive for skin rash. Gastrointestinal: Positive for diarrhea. Neurological: Positive for numbness or shooting pain in hands, arms, legs, or feet. All other systems reviewed and are negative. OBJECTIVE There were no vitals taken for this visit. Onc CTCAE Toxicity Assessment: Yes Diarrhea: 1 Increase of < 4 stools per day over baseline; mild increase in ostomy output comparedto baseline Fatigue: 1 Fatigue relieved by rest Peripheral Sensory Neuropathy: 2 Moderate symptoms; limiting instrumental ADL PHYSICAL EXAMINATION General: Well appearing 80 y.o. [...] past medical records and laboratory tests. At this time it appears that she is tolerating therapy well will proceed with her next cycle of therapy. She and her have been talking about receiving treatment closer to home once winter starts. They are questioning if they could be treated in [facility]. They are asking for referral to that facility. She has a friend who works at the [facility] and states that we can contact them at [phone]. We will see her back in our clinic in approximately 2 weeks time for repeat assessment. She is in full agreement with the plan. Denies any further questions or concerns. Has our telephone number to contact us should they have any further questions or concerns. I informed Ms. العراقي that at this time we are offering the 3rd COVID vaccination to our patients who are immunocompromised. She informs me she received the COVID vaccination last week. Tolerated the vaccination well. PATIENT EDUCATION Ready to learn, no apparent learning barriers were identified; learning preferences include listening. Explained diagnosis and treatment plan; patient expressed understanding of the content. ADMINISTRATIVE BILLING I personally spent 35 minutes in care of the patient today. Time includes both non face to face and face to face patient care. documented in this encounter Plan of Treatment Upcoming Encounters Date Type Specialty Care Team Description 11/19/2021 Clinical Communication Admitting/Central Scheduling 11/23/2021 Comprehensive Visit Neurology Kenji Zaldivar M.D. [address] [place] [address] documented as of this encounter Visit Diagnoses Diagnosis Malignant Neoplasm Of Pancreas Adenocarc inoma (HCC) - Primary documented in this encounter
--- OUTSIDE RECORDS SUMMARY | 2021-11-03 07:05 | XMS_ITS | Encounter Summary ---
:1940 Author Organization [facility] Address [address] [place] [address] Care Team Providers Name Role Phone Unavailable Primary Care Provider Unavailable Reason for Visit Episode Based Medications (Routine) - Authorized Specialty Diagnoses / Procedures Referred By Contact Refer red To Contact Diagnoses Malignant Neoplasm Of Pancreas Adenocarcinoma (HCC) Neutropenia Chemotherapy Induced (HCC) Kimberly Rios, Rsmarleen Onc Coy HIGH C.N.P., M.S. [address] [place] [address] [address] [place] [phone] Referral ID Status Reason Start Date Expiration Date Visits V isits Requested Authorized [id number] Authorized 06/03/2020 06/03/2021 99 99 Encounter Details Date Type Department Care Team Description 10/28/2020 Lab Department of Infusion [facility] Pan[facility] Ad[facility] [place] [address] [place] [address] (HCC) (Primary Dx) [address] [place] [phone] Social History Tobacco Use Types Packs/Day Years [...] or relatives? How often do you attend rastafarian or More than 4 times per year 06/19/2021 hinduism services? Do you belong to any clubs or [employer] 06/19/2021 organizations such as rastafarian groups, unions, fraternal or athletic groups, or [...] documented as of this encounter Miscellaneous Notes Result Encounter Note - Clementina García M.S. - 11/12/2020 7:43 PM CDT CHIEF COMPLAINT Phone call to discuss genetic test results HISTORY OF PRESENT ILLNESS Ms. العراقي was originally seen in the Department of Clinical Genomics on 10/23/2020 due to her recent diagnosis of pancreatic cancer. At this visit, the patient elected to pursue a custom genetic testing panel including the Common Hereditary Cancer panel and the Pancreatic Cancer panel through [employer]. I spoke with her over the telephone regarding her genetic testing results and the results were also shared over the patient online portal. IMPRESSION/REPORT/PLAN RESULTS I spoke with Ms. العراقي regarding her genetic testing results. Genetic testing included analysis of 49genes related to hereditary cancer. 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 The MUTYH gene associated with an autosomal recessive condition called MUTYH- associated polyposis, or MAP, in which individuals have a high risk of developing colorectal polyps and colorectal cancer. This condition occurs when an individual has biallelic (two) MUTYH mutations, meaning an individual has mutations in both copies of their MUTYH gene, one inherited from their mother and one inherited from their father. 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 CANCER RISKS AND MEDICAL MANAGEMENT GUIDELINES Monoallelic MUTYH mutation carriers (individual's with only one mutation) may have a slightly elevated risk for colorectal cancer but the evidence is limited. There is preliminary evidence to support acorrelation with breast cancer, however insufficient to provide changes to management. The National Comprehensive Cancer Network currently recommends that monoallelic MUTYH mutation carriers who have a family history of a first degree relative with colorectal cancer undergo colonoscopy screening every five years, beginning at age 40 or 10 years prior to the age of a first-degree relative's diagnosis of colon cancer. If there is no family history of colorectal cancer, or a diagnosis in a second degree relative, there are no specific recommendations for colonoscopy screening. FAMILY SCREENING RECOMMENDATIONS We discussed that testing for family members is available, primarily to determine whether a family member could carry biallelic (two) mutations in the MUTYH gene and have MAP. If other relatives are found to be carriers of a single MUTYH mutation, this would not change their medical management based on existing NCCN guidelines. Approximately 1.5-2% of individuals of [place] descent are carriers of a single MUTYH mutation. Family members who are interested in undergoing genetic testing can visit [email or web address] Ready to find a genetic counselor in their area. We would also be happyto see any family members at [facility]. Our appointment line is . PERSONAL AND FAMILY SCREENING RECOMMENDATIONS Given that a hereditary susceptibility to pancreatic cancer and other cancers has not been identified by genetic testing, it is generally recommended to screen patients and their family members based on their personal and/or family histories of cancer. It is important for Ms. العراقي to continue to follow the pancreatic cancer screening and any treatmentrecommendations as provided by her physicians. Based on the patient's personal history of pancreatic cancer, Ms. العراقي's close relatives remain at an elevated empiric lifetime risk for pancreatic cancer. There are currently no standardized screeningprotocols or screening tools for pancreatic cancer. Investigational options may be considered in select individuals at increased risk for pancreatic cancer. Options such as endoscopic ultrasonography (EUS) and/or MRI/magnetic resonance cholangiopancreatography are available. However, these screening have significant limitations and the benefits are currently are unknown. Current guidelines from the International Cancer of the Pancreas Screening Consortium (CAPS) state that an individual with one first degree relative with pancreatic cancer who also has a first degree relative with pancreatic cancerare eligible for consideration of screening. CAPS suggests that surveillance should start between the ages of 50-55 or 10 years earlier than the youngest diagnosis of pancreatic cancer in the family. The National Comprehensive Cancer Network (v.2.2020) suggests pancreatic screening for those who have a family history of exocrine pancreatic cancer in greater than 2 first-degree relatives on the same side of the family or exocrine pancreatic cancer in 3 or greater first and/or second-degree relatives on the same side of the family. Men in this family may have an elevated empiric risk for prostate cancer based on the family history. Prostate cancer screening can help identify cancer early on, when treatment is most effective. Prostate cancer screening modalities currently consists of measuring prostate-specific antigen (PSA) levels via a blood test and digital rectal examinations (DREs). The [place] Cancer Society currently recommends that men at average risk for prostate cancer should receive information about screening beginning at age 50 years. Men at higher risk, including /Black men and men who have a first-degree relative (father or brother) diagnosed with prostate cancer before age 65 years, should receive this information beginning at age 45 years. Men at appreciably higher risk (multiple family members diagnosed with prostate cancer before age 65 years) should receive this information beginning at age 40 years. Final screening decisions and recommendations are deferred to the patient's managing physician. Individuals with a family history of colorectal cancer, including Ms. العراقي, remain at an elevated empiric risk for colorectal cancer based on the family history. According to National Comprehensive Cancer Network guidelines, individuals who have a first degree relative with colorectal cancer at any age are advised to begin colonoscopies at age 40 or approximately ten years younger than the earliest age of colon cancer diagnosis (whichever is earliest). Colonoscopy should be repeated every 5 years orearlier based on colonoscopy findings. First degree relatives (children, siblings and parents) of the patient's mother should start screening colonoscopies at age 40 based on their relative's age at diagnosis. Individuals with a second degree relative with colon cancer are advised to begin screening at age 50. Some combinations of affected first-,second-, and third-degree relatives may increase risk s ufficiently to alter screening guidelines. Colonoscopy intervals should be further modified based onpersonal and family history as well as on individual preferences. Factors that modify age to begin screening and colonoscopy intervals include: age of individual undergoing screening; specifics of the f amily history, including number and age of onset of all affected relatives; size of family; completeness of the family history; participating in screening; and colonoscopy findings in family members. Final screening recommendations should be made by the managing physician. There are currently no standardized screening guidelines for individuals with a family history of gastric cancer. The patient's close family members may consider meeting with a harm reduction worker and discussing the benefits/limitations of undergoing screening via upper endoscopy. Close relatives may also consider screening for H pylori. Gastric cancer screenings may be initiated 5-10 years before theearliest age of gastric cancer diagnosis in the family. Final recommendations are deferred to the discretion of the managing physician. Women with a first- or second-degree relative diagnosed with endometrial cancer are encouraged to respond promptly to endometrial cancer symptoms (e.g. dysfunctional uterine bleeding). They may also wish to discuss the options of endometrial cancer screening, such as transvaginal ultrasound and office endometrial sampling, as well as the option of prophylactic hysterectomy with their physicians. Individuals with a family history of thyroid cancer remain at an elevated empiric risk to develop this cancer based on their family history. According to the U.S. Preventative Services Task Force (USPSTF), there is inadequate evidence to estimate the accuracy of neck palpitation or ultrasound of the thyroid as a screening test for thyroid cancer in asymptomatic persons. Therefore, it is recommended to not screen for thyroid cancer in asymptomatic adults. In individuals who have a strong family history of thyroid cancer, annual thyroid ultrasound may be considered. It is important for the patient and family members to report any unusual symptoms promptly, such as pain, difficulty swallowing, hoarseness, lump/swelling/asymmetry of the neck, or other throat symptoms. The patient and her family members are advised to share their family history of leukemia and non-melanoma skin cancer with their providers and follow any screening recommendations they make. These screening recommendations are based on national guidelines. Final screening recommendations should be deferred to the discretion of the managing physician. Other screening recommendations, such as those made by the [place] Cancer Society, do remain appropriate. PLAN We encourage Ms. العراقي to continue to follow the recommendations of her care providers for his care and screening moving forward. We will mail the patient a copy of her genetic test report, NCCN guidelines, a family letter, and this note for her reference. It is recommended that Ms. العراقي contact our clinic if there are changes to her personal or family history of cancer, as this information may change our genetic testing recommendations. Additionally, she is welcome to contact our clinic periodically, as our genetic testing options will likely improve over time. It was a pleasure to meet Ms. العراقي. She is welcome to contact me with any questions. PATIENT EDUCATION: All of the above was explained in detail with the patient who verbalized understanding. There were no apparent barriers to learning and understanding. The patient's questions were answered. documented in this encounter Plan of Treatment Upcoming Encounters Date Type Specialty Care Team Description 11/19/2021 Clinical Communication Admitting/Central Scheduling 11/23/2021 Comprehensive Visit Neurology Kenji Zaldivar M.D. [address] [place] [phone] documented as of this encounter Procedures Procedure Name Priority Date/Time Associated Diagnosis Comme nts MISC. INVITAE Routine 10/28/2020 6:53 Results for this CORPORATION AM CDT procedure are i n the results section. CBC WITH Routine 10/28/2020 6:53 Malignant Neoplasm Of Res ults for this DIFFERENTIAL, B AM CDT Pancreas procedure ar e in Adenocarcinoma (HCC) the res ults section. MAGNESIUM, S Routine 10/28/2020 6:53 Malignant Neoplasm Of Res ults for this AM CDT Pancreas procedure are i n Adenocarcinoma (HCC) the res ults section. BILIRUBIN DIRECT, S/P Routine 10/28/2020 6:53 Malignant Neopla sm Of Results for this AM CDT Pancreas procedure are i n Adenocarcinoma (HCC) the res ults section. COMPREHENSIVE Routine 10/28/2020 6:53 Malignant Neoplasm Of Re sults for this METABOLIC PANEL, S/P AM CDT Pancreas procedu re are in Adenocarcinoma (HCC) the res ults section. documented in this encounter Results Mis. [employer] (10/28/2020 6:53 AM CDT) athologist Signature Test Name Amaliae 10/28/2020 INV Custom Panel 10:32 AM CDT Result SEE COMMENT 11/10/2020 INVC 10:47 AM CDT Comment: For final report, select Lab-Send Out L ab Results hyperlink below. Specimen Anatomical Collection Method Collection Time Receive d Time (Source) Location / / Volume Laterality Varies 10/28/2020 6:53 AM CDT 10:32 AM CDT Narrative This result has an attachment that is no t available. [place] M.D. LAB MISC ORDERABLES Performing Organization Address City/State/ZIP Code Phon e Number [employer] [address] [place] [phone] [facility] [employer] [address] [phone] Bilirubin, Direct (10/28/2020 6:53 AM CDT) athologist Signature Bilirubin, <0.2 0.0 - 0.3 10/28/2020 DTL Direct, S mg/dL 7:42 AM CDT Specimen Anatomical Collection Method Collection Time Receive d Time (Source) Location / / Volume Laterality Blood (Blood, 10/28/2020 6:53 AM 10/29/19 7:05 Venous) CDT AM CDT [facility] LAB BLOOD ADD-ON Performing Organization Address City/State/ZIP Code Phon e Number [facility] - [address] [place], [place] [address] [place] [address] Laboratories-[facility] [address] (ABNORMAL) Comprehensive Metabolic Panel (10/28/2020 6:53 AM CDT) athologist Signature Potassium, S 4.1 3.6 - 5.2 10/28/2020 DTL mmol/L 7:41 AM CDT Sodium, S 145 135 - 145 10/28/2020 DTL mmol/L 7:41 AM CDT Chloride, S 107 98 - 107 10/28/2020 DTL mmol/L 7:41 AM CDT Bicarbonate, S 28 22 - 29 10/28/2020 DTL mmol/L 7:41 AM CDT Anion Gap 10 7 - 15 10/28/2020 DTL 7:41 AM CDT BUN (Blood Urea 15 6 - 21 10/28/2020 DTL Nitrogen), S mg/dL 7:41 AM CDT Creatinine, S 0.81 0.59 - 1.04 10/28/2020 DTL mg/dL 7:41 AM CDT eGFR-Non 70 >=60 10/28/2020 DTL Black/ mL/min/BSA 7:41 AM CDT [place] Comment: ----ADDITIONAL INFORMATION---- Estimated GFR calculated using the 2009 CKD_EPI creatinine equation. eGFR-Black/ 80 >=60 mL/min/BSA 2020 7:41 AM CDT DTL Comment: ----ADDITIONAL INFORMATION---- Estimated GFR calculated using the 2009 CKD_EPI creatinine equation. Calcium, Total, S 9.2 8.8 - 10.2 mg/dL 10/28/2020 7:41 AM CDT DTL Glucose, S 100 70 - 140 mg/dL 10/28/2020 7:41 AM CDT D TL Protein, Total, S 6.2 (L) 6.3 - 7.9 g/dL 10/28/2020 7:41 A M CDT DTL Albumin, S 4.4 3.5 - 5.0 g/dL 10/28/2020 7:41 AM CDT D TL Aspartate Aminotransferase 38 8 - 43 U/L 10/28/2020 7 :41 AM CDT DTL (AST), S Alkaline Phosphatase, S 82 35 - 104 U/L 10/28/2020 7: 41 AM CDT DTL Alanine Aminotransferase 37 7 - 45 U/L 10/28/2020 7:4 1 AM CDT DTL (ALT), S Bilirubin, Total, S <0.2 <=1.2 mg/dL 10/28/2020 7:41 AM CDT DTL Specimen Anatomical Collection Method Collection Time Receive d Time (Source) Location / / Volume Laterality Blood (Blood, 10/28/2020 6:53 AM 10/29/19 7:05 Venous) CDT AM CDT Nova [facility] LAB BLOOD ADD-ON Performing Organization Address City/State/ZIP Code Phon e Number [facility] - 200 [place], [place] [address] [place] [address] [facility] 200 [facility] (ABNORMAL) CBC with Differential, Blood (10/28/2020 6:53 AM CDT) [facility] Method Time Signature Hemoglobin 9.6 (L) 11.6 - 10/28/2020 DTL 15.0 g/dL 7:16 AM CDT Hematocrit 29.7 (L) 35.5 - 10/28/2020 DTL 44.9 % 7:16 AM CDT Erythrocytes 2.89 (L) 3.92 - 10/28/2020 DTL 5.13 7:16 AM CDT x10(12)/L MCV 102.8 (H) 78.2 - 10/28/2020 DTL 97.9 fL 7:16 AM CDT RBC Distrib Width 14.0 12.2 - 10/28/2020 DTL 16.1 % 7:16 AM CDT Platelet Count 157 157 - 371 10/28/2020 DTL x10(9)/L 7:16 AM CDT Leukocytes 3.1 (L) 3.4 - 9.6 10/28/2020 DTL x10(9)/L 7:16 AM CDT Neutrophils 1.94 1.56 - 10/28/2020 DTL 6.45 7:16 AM CDT x10(9)/L Lymphocytes 0.56 (L) 0.95 - 10/28/2020 DTL 3.07 7:16 AM CDT x10(9)/L Monocytes 0.56 0.26 - 10/28/2020 DTL 0.81 7:16 AM CDT x10(9)/L Eosinophils 0.03 0.03 - 10/28/2020 DTL 0.48 7:16 AM CDT x10(9)/L Basophils <0.03 0.01 - 10/28/2020 DTL 0.08 7:16 AM CDT x10(9)/L Specimen Anatomical Collection Method Collection Time Receive d Time (Source) Location / / Volume Laterality Blood (Blood, 10/28/2020 6:53 AM 10/29/19 21 7:06 Venous) CDT AM CDT [facility] LAB BLOOD ADD-ON Performing Organization Address City/[facility] Phon e Number [facility] - [address] [place], [place] [address] [place] [phone] Laboratories-[address] Magnesium (10/28/2020 6:53 AM CDT) P athologist Signature Magnesium, S 2.2 1.7 - 2.3 10/28/2020 DTL mg/dL 7:41 AM CDT Specimen Anatomical Collection Method Collection Time Receive d Time (Source) Location / / Volume Laterality Blood (Blood, 10/28/2020 6:53 AM 10/29/19 21 7:05 Venous) CDT AM CDT Nova [facility] LAB BLOOD ADD-ON Performing Organization Address City/[facility] Code Phon e Number [facility] - 200 [place], [place] [address] [place] [phone] [facility]-[address] documented in this encounter Visit Diagnoses Diagnosis Malignant Neoplasm Of Pancreas Adenocarc inoma (HCC) - Primary documented in this encounter Administered Medications Inactive Administered Medications - up to 3 most recent administrations Medication Order MAR Action Action Date Dose Rate Site heparin flush 500 Units Given 10/28/2020 6:55 AM CDT 500 Units 500 Units, intra-catheter, As needed, line care, Starting on Mon10/28/20 at 0645, When no infusion to maintain patency: For IVAD accessed, not in use, and/or prior to hospital discharge, flush every 7 days after 0.9% preservative-free NaCL flush. For IVAD NOT accessed or used, flush every 4 weeks after 0.9% preservative-free NaCL flush. sodium chloride 0.9 % injection 10 mL Given 10/28/2020 6:53 AM CDT 10 mL 10 mL, intra-catheter, As needed, line care, Starting on Mon10/28/20 at 0645, When IVAD Accessed and in Use: Flush prior to and following infusion, between multiple consecutive infusions, and prior to blood sampling. sodium chloride 0.9 % injection 20 mL Given 10/28/2020 6:55 AM CDT 20 mL 20 mL, intra-catheter, As needed, line care, Starting on Mon10/28/20 at 0645, When IVAD Accessed and in Use: Flush post blood transfusion or post blood sampling. documented in this encounter
--- OUTSIDE RECORDS SUMMARY | 2021-11-03 07:05 | XMS_ITS | Encounter Summary ---
:[address] [facility] Address [address] [place] [address] Care Team Providers Name Role Phone Unavailable Primary Care Provider Unavailable Reason for Visit Episode Based Medications (Routine) - Authorized Specialty Diagnoses / Procedures Referred By Contact Refer red To Contact Diagnoses Malignant Neoplasm Of Pancreas Adenocarcinoma (HCC) Neutropenia Chemotherapy Induced (HCC) Kimberly Rios, Rsmarleen Onc Coy HIGH C.N.P., M.S. [address] [place] [phone] Referral ID Status Reason Start Date Expiration Date Visits V isits Requested Authorized [id number] Authorized 06/03/2020 06/03/2021 99 99 Encounter Details Date Type Department Care Team Description 12/09/2020 Infusion Department of Oncology Nova Vivar Malig nant Neoplasm Of in [facility] MInnaB.S. Pancreas Adenocarcinoma [address] [facility] [address] [place] [address] (HCC) (Primary Dx) [place] [phone] Social History Tobacco Use Types Packs/Day Years [...] or relatives? How often do you attend sabianist or More than 4 times per year 06/19/2021 uatsdin services? Do you belong to any clubs or Yes 06/19/2021 organizations such as sabianist groups, unions, fraternal or athletic groups, or [...] Comprehensive Visit Neurology Kenji Zaldivar M.D. 200 [place] [address] documented as of this encounter Visit Diagnoses Diagnosis Malignant Neoplasm Of Pancreas Adenocarc inoma (HCC) - Primary documented in this encounter Administered Medications Inactive Administered Medications - up to 3 most recent administrations Medication Order MAR Action Action Date Dose Rate Site atropine injection 0.25 mg Given 12/09/2020 1:47 0.25 mg Left Upper A bdomen 0.25 mg, subcutaneous, PM CDT Once, On Mon12/09/20 at 1300, For 1 dose, Give prior to Irinotecan. Give subcutaneously if unable to give IV. Patient prefers SQ. dexamethasone in NaCl 0.9% IVPB 12 New Bag 12/09/2020 10:31 AM CDT 12 mg 200 mL/hr mg (DECADRON) 12 mg, intravenous, at 200 mL/hr, Administer over 15 Minutes, Once, On Mon12/09/20 at 1030, For 1 dose, Refrigerate fluorouraciL 3,000 mg in NaCl 0.9% 92 Given 12/09/2020 3:27 PM CDT 3,000 mg 2 mL/hr mL IVPB (ADRUCIL) 3,000 mg (rounded from 2,976 mg = 1,920 mg/m2 ? 1.55 m2 Treatment Plan BSA from Measured weight), intravenous, at 2 mL/hr, Administer over 46 Hours, over 46 hours, First dose on Mon12/09/20 at 1500, For 1 dose, Infuse at 2 mL/hr for 46 hours continuous infusion via CADD pump #[id number] fosaprepitant 150 mg in NaCl 0.9% New Bag 12/09/2020 11:07 AM CDT 150 mg 510 mL/hr (non-PVC) IVPB (EMEND) 150 mg, intravenous, at 510 mL/hr, Administer over 30 Minutes, Once, On Mon12/09/20 at 1030, For 1 dose, Incompatible with solutions containing divalent cations (calcium, magnesium) including lactated Ringer's solution. irinotecan 220 mg in D5W 559 mL New Bag 12/09/2020 1:50 PM CDT 220 mg 373 mL/hr IVPB (CAMPTOSAR) 220 mg (rounded from 218.88 mg = 144 mg/m2 ? 1.52 m2 Order-specific BSA), intravenous, at 373 mL/hr, Administer over 90 Minutes, Once, On Mon12/09/20 at 1330, For 1 dose, May be given via y-site with leucovorin. Protect from light. leucovorin 600 mg in D5W 305 mL New Bag 12/09/2020 1:50 PM CDT 600 mg 203 mL/hr IVPB 600 mg (rounded from 620 mg = 400 mg/m2 ? 1.55 m2 Treatment Plan BSA from Measured weight), intravenous, at 203 mL/hr, Administer over 90 Minutes, Once, On Mon12/09/20 at 1330, For 1 dose, Can be given via y-site with irinotecan. NaCl 0.9 % bolus 1,000 mL Restarted 12/09/2020 1:49 PM CDT 1000 mL/hr 1,000 mL, intravenous, at 1,000 mL/hr, Administer over 1 Hours, Once, On Mon12/09/20 at 1030, For 1 dose New Bag 12/09/2020 10:29 AM CDT 1,000 mL 1000 mL/hr ondansetron in NaCl 0.9% IVPB 16 mg New Bag 12/09/2020 10:49 A M CDT 16 mg 232 mL/hr (ZOFRAN) 16 mg, intravenous, at 232 mL/hr, Administer over 15 Minutes, Once, On Mon12/09/20 at 1030, For 1 dose oxaliplatin 100 mg in D5W 295 mL New Bag 12/09/2020 11:42 AM C DT 100 mg 148 mL/hr IVPB (ELOXATIN) 100 mg (rounded from 105.4 mg = 68 mg/m2 ? 1.55 m2 Treatment Plan BSA from Measured weight), intravenous, at 148 mL/hr, Administer over 2 Hours, Once, On Mon12/09/20 at 1130, For 1 dose, Flush infusion line with dextrose 5 % in water prior to administration of any concomitant medication. sodium chloride 0.9 % injection 10 mL Given 12/09/2020 3:27 PM CDT 10 mL 10 mL, intra-catheter, As needed, line care, Starting on Mon12/09/20 at 1015, When IVAD Accessed and in Use: Flush prior to and following infusion, between multiple consecutive infusions, and prior to blood sampling. Given 12/09/2020 10:29 AM CDT 10 mL documented in this encounter
--- OUTSIDE RECORDS SUMMARY | 2021-11-03 07:05 | XMS_ITS | Encounter Summary ---
:1940 Author Organization [facility] Address [address] [place] [address] Care Team Providers Name Role Phone Unavailable Primary Care Provider Unavailable Reason for Visit Reason Comments Chemotherapy Outpatient (Routine) - Closed Specialty Diagnoses / Procedures Referred By Contact Refer red To Contact Diagnoses Malignant Neoplasm Of Pancreas Adenocarcinoma (HCC) Kimberly Rios APRN, [facility] Procedures ONC Pump Disconnect C.N.P., M.S. [address] [place] [address] Referral ID Status Reason Start Date Expiration Date Visits Requ ested Visits Authorized [id number] Closed 11/24/2020 11/24/2021 1 1 Encounter Details Date Type Department Care Team Description 11/26/2020 Infusion Department of Infusion Kimberly Rios Ma lignant Neoplasm Of Therapy in [facility], LENNOX, C.N.P., Sig[place] creas Adenocarcinoma [facility] (HCC) (Primary Dx) [address] [place] [phone] Social History Tobacco Use Types Packs/Day Years [...] Do you belong to any clubs or [employer] 06/19/2021 organizations such as rastafarian groups, unions, [employer]Seasonal Kids [employer] or athletic groups, or school groups? How [...] Sign Reading Time Taken Comments Blood Pressure 140/67 11/26/2020 3:13 PM CDT Pulse 65 11/26/2020 3:13 PM CDT Temperature 36.7 ??C (98.1 ??F) 11/26/2020 3:13 PM CDT Respiratory Rate - - Oxygen Saturation - - Inhaled Oxygen Concentration - - Weight - - Height - - Body Mass Index - - documented in this encounter Plan of Treatment Upcoming Encounters Date Type Specialty Care Team Description 11/19/2021 Clinical Communication Admitting/Central Scheduling 11/23/2021 Comprehensive Visit Neurology Kenji Zaldivar M.D. [address] [place] [address] documented as of this encounter Visit Diagnoses Diagnosis Malignant Neoplasm Of Pancreas Adenocarc inoma (HCC) - Primary documented in this encounter Administered Medications Inactive Administered Medications - up to 3 most recent administrations Medication Order MAR Action Action Date Dose Rate Site heparin flush 500 Units Given 11/26/2020 3:13 PM CDT 500 Units 500 Units, intra-catheter, As needed, line care, Starting on Laila 11/26/20 at 1503, When no infusion to maintain patency: For IVAD accessed, not in use, and/or prior to hospital discharge, flush every 7 days after 0.9% preservative-free NaCL flush. For IVAD NOT accessed or used, flush every 4 weeks after 0.9% preservative-free NaCL flush. sodium chloride 0.9 % injection 20 mL Given 11/26/2020 3:13 PM CDT 20 mL 20 mL, intra-catheter, As needed, line care, Starting on Laila 11/26/20 at 1503, When IVAD Accessed and in Use: Flush post blood transfusion or post blood sampling. documented in this encounter
--- OUTSIDE RECORDS SUMMARY | 2021-11-03 07:05 | XMS_ITS | Encounter Summary ---
:1940 Author Organization [facility] Address [address] [place] [address] Care Team Providers Name Role Phone Unavailable Primary Care Provider Unavailable Reason for Visit Reason Comments Genetic Testing Results Encounter Details Date Type Department Care Team Description 11/12/2020 Documentation Department of Medical Ricky, Mary ic Testing Genetics in [facility]an[facility]lementina M.S., [facility] [address] [facility] [address] [place] [phone] Social History Tobacco Use Types Packs/Day Years [...] or relatives? How often do you attend jainism or More than 4 times per year 06/19/2021 zoroastrian services? Do you belong to any clubs or Yes 06/19/2021 organizations such as jainism groups, unions, fraternal or athletic groups, or [...] documented as of this encounter Progress Notes Clementina García M.S. - 11/12/2020 7:28 PM CDT Images from the original note were not included. CHIEF COMPLAINT Phone call to discuss genetic test results HISTORY OF PRESENT ILLNESS Ms. العراقي was originally seen in the Department of Clinical Genomics on 10/23/2020 due to her recent diagnosis of pancreatic cancer. At this visit, the patient elected to pursue a custom genetic testing panel including the Common Hereditary Cancer panel and the Pancreatic Cancer panel through [facility]. I spoke with her over the telephone regarding her genetic testing results and the results were also shared over the patient online portal. IMPRESSION/REPORT/PLAN RESULTS I spoke with Ms. العراقي regarding her genetic testing results. Genetic testing included analysis of 49genes related to hereditary cancer. 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 If there is [...] interested in undergoing genetic testing can visit [email or web address] to find a genetic counselor in their area. We would also be happyto see any family members at [facility]. Our appointment line is . PERSONAL AND [...] test and digital rectal examinations (DREs). The [place] [employer] currently recommends that men at [...] decisions and recommendations are deferred to the patient???s managing physician. Individuals with a family history [...] family members may consider meeting with a it audit manager and discussing the benefits/limitations of undergoing screening [...] recommendations, such as those made by the [place] [employer], do remain appropriate. PLAN We [...] Comprehensive Visit Neurology Kenji Zaldivar M.D. [address] [place] [address] documented as of this encounter Visit Diagnoses Not on filedocumented in this encounter
--- OUTSIDE RECORDS SUMMARY | 2021-11-03 07:05 | XMS_ITS | Encounter Summary ---
:1940 Author Organization [facility] Address [address] [place] [address] Care Team Providers Name Role Phone Unavailable Primary Care Provider Unavailable Reason for Visit Episode Based Medications (Routine) - Authorized Specialty Diagnoses / Procedures Referred By Contact Refer red To Contact Diagnoses Malignant Neoplasm Of Pancreas Adenocarcinoma (HCC) Neutropenia Chemotherapy Induced (HCC) Kimberly Rios, Rst Onc Coy HIGH C.N.P., M.S. [address] [place] [address] [place] [address] [phone] Referral ID Status Reason Start Date Expiration Date Visits V isits Requested Authorized [id number] Authorized 06/03/2020 06/03/2021 99 99 Encounter Details Date Type Department Care Team Description 11/24/2020 Lab Department of Laboratory Nova Vivar Mal ignant Neoplasm Of Medicine and Pathology, M.B.B.S. Pancreas Adenocarcinoma [place], [place] [address] [place] [address] (HCC) (Primary Dx) [place], [place] [address] [place] [phone] [place] [phone] Social History Tobacco Use Types Packs/Day [...] Visit Neurology Kenji Zaldivar M.D. [address] [place] [address] documented as of this encounter Procedures Procedure Name Priority Date/Time Associated Diagnosis Comme nts CBC WITH Routine 11/24/2020 8:32 Malignant Neoplasm Of Res ults for this DIFFERENTIAL, B AM CDT Pancreas procedure ar e in Adenocarcinoma (HCC) the res ults section. MAGNESIUM, S Routine 11/24/2020 8:32 Malignant Neoplasm Of Res ults for this AM CDT Pancreas procedure are i n Adenocarcinoma (HCC) the res ults section. BILIRUBIN DIRECT, S/P Routine 11/24/2020 8:32 Malignant Neopla sm Of Results for this AM CDT Pancreas procedure are i n Adenocarcinoma (HCC) the res ults section. COMPREHENSIVE Routine 11/24/2020 8:32 Malignant Neoplasm Of Re sults for this METABOLIC PANEL, S/P AM CDT Pancreas procedu re are in Adenocarcinoma (HCC) the res ults section. documented in this encounter Results Bilirubin, Direct (11/24/2020 8:32 AM CDT) athologist Signature Bilirubin, <0.2 0.0 - 0.3 11/24/2020 DTL Direct, S mg/dL 10:11 AM CDT Specimen Anatomical Collection Method Collection Time Receive d Time (Source) Location / / Volume Laterality Blood (Blood, 11/24/2020 8:32 AM 11/25/19 9:03 Venous) CDT AM CDT Nova Fontaine.B.S. LAB BLOOD ADD-ON Performing Organization Address City/State/ZIP Code Phon e Number [facility] - [address] [place], [place] [address] [facility] [place] [address] Laboratories-[facility] [address] (ABNORMAL) Comprehensive Metabolic Panel (11/24/2020 8:32 AM CDT) athologist Signature Potassium, S 4.0 3.6 - 5.2 11/24/2020 DTL mmol/L 9:22 AM CDT Sodium, S 146 (H) 135 - 145 11/24/2020 DTL mmol/L 9:22 AM CDT Chloride, S 108 (H) 98 - 107 11/24/2020 DTL mmol/L 9:22 AM CDT Bicarbonate, S 30 (H) 22 - 29 11/24/2020 DTL mmol/L 9:22 AM CDT Anion Gap 8 7 - 15 11/24/2020 DTL 9:22 AM CDT BUN (Blood 15 6 - 21 11/24/2020 DTL Urea mg/dL 9:22 AM CDT Nitrogen), S Creatinine, S 0.84 0.59 - 11/24/2020 DTL 1.04 mg/dL 9:22 AM CDT eGFR-Non 67 >=60 11/24/2020 DTL Black/ mL/min/BSA 9:22 AM CDT Slovenian Comment: ----ADDITIONAL INFORMATION---- Estimated GFR calculated using the 2009 CKD_EPI creatinine equation. eGFR-Black/ 77 >=60 mL/min/BSA 2020 9:22 AM CDT DTL Comment: ----ADDITIONAL INFORMATION---- Estimated GFR calculated using the 2009 CKD_EPI creatinine equation. Calcium, Total, S 9.1 8.8 - 10.2 mg/dL 11/24/2020 9:22 AM CDT DTL Glucose, S 93 70 - 140 mg/dL 11/24/2020 9:22 AM CDT D TL Protein, Total, S 6.1 (L) 6.3 - 7.9 g/dL 11/24/2020 9:22 A M CDT DTL Albumin, S 4.1 3.5 - 5.0 g/dL 11/24/2020 9:22 AM CDT D TL Aspartate Aminotransferase 35 8 - 43 U/L 11/24/2020 9 :22 AM CDT DTL (AST), S Alkaline Phosphatase, S 88 35 - 104 U/L 11/24/2020 9: 22 AM CDT DTL Alanine Aminotransferase 28 7 - 45 U/L 11/24/2020 9:2 2 AM CDT DTL (ALT), S Bilirubin, Total, S <0.2 <=1.2 mg/dL 11/24/2020 9:22 AM CDT DTL Specimen Anatomical Collection Method Collection Time Receive d Time (Source) Location / / Volume Laterality Blood (Blood, 11/24/2020 8:32 AM 11/25/19 21 8:41 Venous) CDT AM CDT Nova McnealS. LAB BLOOD ADD-ON Performing Organization Address City/State/ZIP Code Phon e Number [facility] - [address] [place], [place] [address] [facility] [place] [address] Laboratories-[facility] [address] (ABNORMAL) CBC with Differential, Blood (11/24/2020 8:32 AM CDT) [facility] gist Method Time Signature Hemoglobin 9.7 (L) 11.6 - 11/24/2020 DTL 15.0 g/dL 9:10 AM CDT Hematocrit 29.6 (L) 35.5 - 11/24/2020 DTL 44.9 % 9:10 AM CDT Erythrocytes 2.82 (L) 3.92 - 11/24/2020 DTL 5.13 9:10 AM CDT x10(12)/L MCV 105.0 (H) 78.2 - 11/24/2020 DTL 97.9 fL 9:10 AM CDT RBC Distrib Width 14.3 12.2 - 11/24/2020 DTL 16.1 % 9:10 AM CDT Platelet Count 147 (L) 157 - 371 11/24/2020 DTL x10(9)/L 9:10 AM CDT Leukocytes 3.3 (L) 3.4 - 9.6 11/24/2020 DTL x10(9)/L 9:10 AM CDT Neutrophils 2.23 1.56 - 11/24/2020 DTL 6.45 9:10 AM CDT x10(9)/L Lymphocytes 0.54 (L) 0.95 - 11/24/2020 DTL 3.07 9:10 AM CDT x10(9)/L Monocytes 0.50 0.26 - 11/24/2020 DTL 0.81 9:10 AM CDT x10(9)/L Eosinophils 0.03 0.03 - 11/24/2020 DTL 0.48 9:10 AM CDT x10(9)/L Basophils <0.03 0.01 - 11/24/2020 DTL 0.08 9:10 AM CDT x10(9)/L Specimen Anatomical Collection Method Collection Time Receive d Time (Source) Location / / Volume Laterality Blood (Blood, 11/24/2020 8:32 AM 11/25/19 8:50 Venous) CDT AM CDT Nova [place] LAB BLOOD ADD-ON Performing Organization Address City/State/ZIP Code Phon e Number [facility] - [address] [place], [place] [address] [facility] [place] [address] Laboratories-[facility] [address] Magnesium (11/24/2020 8:32 AM CDT) P athologist Signature Magnesium, S 2.1 1.7 - 2.3 11/24/2020 DTL mg/dL 9:22 AM CDT Specimen Anatomical Collection Method Collection Time Receive d Time (Source) Location / / Volume Laterality Blood (Blood, 11/24/2020 8:32 AM 11/25/19 8:41 Venous) CDT AM CDT Nova McnealS. LAB BLOOD ADD-ON Performing Organization Address City/State/ZIP Code Phon e Number [facility] - [address] [place], [place] [address] [facility] [place] [address] Laboratories[facility] [address] documented in this encounter Visit Diagnoses Diagnosis Malignant Neoplasm Of Pancreas Adenocarc inoma (HCC) - Primary documented in this encounter Administered Medications Inactive Administered Medications - up to 3 most recent administrations Medication Order MAR Action Action Date Dose Rate Site heparin flush 500 Units Given 11/24/2020 8:17 AM CDT 500 Units 500 Units, intra-catheter, As needed, line care, Starting on Mon11/24/20 at 0815, When no infusion to maintain patency: For IVAD accessed, not in use, and/or prior to hospital discharge, flush every 7 days after 0.9% preservative-free NaCL flush. For IVAD NOT accessed or used, flush every 4 weeks after 0.9% preservative-free NaCL flush. sodium chloride 0.9 % injection 20 mL Given 11/24/2020 8:17 AM CDT 20 mL 20 mL, intra-catheter, As needed, line care, Starting on Mon11/24/20 at 0815, When IVAD Accessed and in Use: Flush post blood transfusion or post blood sampling. documented in this encounter
--- OUTSIDE RECORDS SUMMARY | 2021-11-03 07:05 | XMS_ITS | Encounter Summary ---
:1940 Author Organization [facility] Address [address] [place] [address] Care Team Providers Name Role Phone Unavailable Primary Care Provider Unavailable Reason for Visit Reason Comments [facility]: [place] Encounter Details Date Type Department Care Team Description 10/26/2020 Clinical Communication Department of [facility] Tod Johns: [facility] [address] [facility] [address] [place] [phone] Social History Tobacco Use Types Packs/Day Years [...] this encounter Miscellaneous Notes Telephone Encounter - Mehran Miranda - 11/10/2020 12:26 PM CDT Results received in dept pool. Forwarded to the provider for review. Telephone Encounter - Mehran Miranda - 11/10/2020 10:29 AM CDT Testing has been completed in the [employer] portal, pending results being scanned into [employer] to be sentto Clinical team for review. MUTYH carrier : Mira Abel Telephone Encounter - Mehran Miranda - 10/29/2020 12:45 PM CDT Sample received by [employer] on 10/28/2020, testing in progress Telephone Encounter - Rosemary Arce - 10/27/2020 3:59 PM CDT Kit at [facility] Telephone Encounter - Mehran Miranda - 10/26/2020 9:32 AM CDT Date: 10/28/2020 Lab: [facility] Test: Custom Panel Sample: Whole Blood Provider: Clementina García Take kit to [facility] desk [place] documented in this encounter Plan of Treatment Upcoming Encounters Date Type Specialty Care Team Description 11/19/2021 Clinical Communication Admitting/Central Scheduling 11/23/2021 Comprehensive Visit Neurology Kenji Zaldivar M.D. [address] [place] [phone] documented as of this encounter Visit Diagnoses Not on filedocumented in this encounter
--- OUTSIDE RECORDS SUMMARY | 2021-11-03 07:05 | XMS_ITS | Encounter Summary ---
:1940 Author Organization [facility] Address [address] [place] [address] Care Team Providers Name Role Phone Unavailable Primary Care Provider Unavailable Reason for Visit Episode Based Medications (Routine) - Authorized Specialty Diagnoses / Procedures Referred By Contact Refer red To Contact Diagnoses Malignant Neoplasm Of Pancreas Adenocarcinoma (HCC) Neutropenia Chemotherapy Induced (HCC) Kimberly Rios, Rsmarleen Onc Coy HIGH C.N.P., M.S. [address] [place] [address] [address] [place] [phone] Referral ID Status Reason Start Date Expiration Date Visits V isits Requested Authorized [id number] Authorized 06/03/2020 06/03/2021 99 99 Encounter Details Date Type Department Care Team Description 11/10/2020 Lab Department of Infusion Nova Vivar Malig nant [facility] [place] [address] [place] [address] (HCC) (Primary Dx) [address] [place] [phone] Social History Tobacco Use Types Packs/Day Years [...] Comprehensive Visit Neurology Kenji Zaldivar M.D. [address] [place] [phone] documented as of this encounter Procedures Procedure Name Priority Date/Time Associated Diagnosis Comme nts CARBOHYDRATE AG 19-9 Routine 11/10/2020 6:29 Malignant Neoplas m Of Results for this (CA 19-9), S AM CDT Pancreas procedure are i n Adenocarcinoma (HCC) the res ults section. MAGNESIUM, S Routine 11/10/2020 6:29 Malignant Neoplasm Of Res ults for this AM CDT Pancreas procedure are i n Adenocarcinoma (HCC) the res ults section. BILIRUBIN DIRECT, S/P Routine 11/10/2020 6:29 Malignant Neopla sm Of Results for this AM CDT Pancreas procedure are i n Adenocarcinoma (HCC) the res ults section. COMPREHENSIVE Routine 11/10/2020 6:29 Malignant Neoplasm Of Re sults for this METABOLIC PANEL, S/P AM CDT Pancreas procedu re are in Adenocarcinoma (HCC) the res ults section. CBC WITH Routine 11/10/2020 6:28 Malignant Neoplasm Of Res ults for this DIFFERENTIAL, B AM CDT Pancreas procedure ar e in Adenocarcinoma (HCC) the res ults section. documented in this encounter Results Bilirubin, Direct (11/10/2020 6:29 AM CDT) athologist Signature Bilirubin, <0.2 0.0 - 0.3 11/10/2020 DTL Direct, S mg/dL 7:17 AM CDT Specimen Anatomical Collection Method Collection Time Receive d Time (Source) Location / / Volume Laterality Blood (Blood, 11/10/2020 6:29 AM 11/11/19 6:41 Venous) CDT AM CDT Nova Fontaine.B.S. LAB BLOOD ADD-ON Performing Organization Address City/State/[facility] Code Phon e Number [facility] - [address] [place] [phone] [facility] [place] [address] Laboratories-[facility] [address] (ABNORMAL) Comprehensive Metabolic Panel (11/10/2020 6:29 AM CDT) athologist Signature Potassium, S 4.1 3.6 - 5.2 11/10/2020 DTL mmol/L 7:18 AM CDT Sodium, S 146 (H) 135 - 145 11/10/2020 DTL mmol/L 7:18 AM CDT Chloride, S 107 98 - 107 11/10/2020 DTL mmol/L 7:18 AM CDT Bicarbonate, S 28 22 - 29 11/10/2020 DTL mmol/L 7:18 AM CDT Anion Gap 11 7 - 15 11/10/2020 DTL 7:18 AM CDT BUN (Blood 10 6 - 21 11/10/2020 DTL Urea mg/dL 7:18 AM CDT Nitrogen), S Creatinine, S 0.83 0.59 - 11/10/2020 DTL 1.04 mg/dL 7:18 AM CDT eGFR-Non 68 >=60 11/10/2020 DTL Black/ mL/min/BSA 7:18 AM CDT [place] Comment: ----ADDITIONAL INFORMATION---- Estimated GFR calculated using the 2009 CKD_EPI creatinine equation. eGFR-Black/ 78 >=60 mL/min/BSA 2020 7:18 AM CDT DTL Comment: ----ADDITIONAL INFORMATION---- Estimated GFR calculated using the 2009 CKD_EPI creatinine equation. Calcium, Total, S 9.5 8.8 - 10.2 mg/dL 11/10/2020 7:18 AM CDT DTL Glucose, S 88 70 - 140 mg/dL 11/10/2020 7:18 AM CDT D TL Protein, Total, S 6.0 (L) 6.3 - 7.9 g/dL 11/10/2020 7:18 A M CDT DTL Albumin, S 4.2 3.5 - 5.0 g/dL 11/10/2020 7:18 AM CDT D TL Aspartate Aminotransferase 33 8 - 43 U/L 11/10/2020 7 :18 AM CDT DTL (AST), S Alkaline Phosphatase, S 81 35 - 104 U/L 11/10/2020 7: 18 AM CDT DTL Alanine Aminotransferase 30 7 - 45 U/L 11/10/2020 7:1 8 AM CDT DTL (ALT), S Bilirubin, Total, S <0.2 <=1.2 mg/dL 11/10/2020 7:18 AM CDT DTL Specimen Anatomical Collection Method Collection Time Receive d Time (Source) Location / / Volume Laterality Blood (Blood, 11/10/2020 6:29 AM 11/11/19 6:40 Venous) CDT AM CDT Nova McnealS. LAB BLOOD ADD-ON Performing Organization Address City/State/ZIP Code Phon e Number [facility] - [address] [place], [place] [phone] [facility] [place] [address] Laboratories-[facility] [address] Magnesium (11/10/2020 6:29 AM CDT) P athologist Signature Magnesium, S 2.0 1.7 - 2.3 11/10/2020 DTL mg/dL 7:18 AM CDT Specimen Anatomical Collection Method Collection Time Receive d Time (Source) Location / / Volume Laterality Blood (Blood, 11/10/2020 6:29 AM 11/11/19 21 6:40 Venous) CDT AM CDT Nova ZamoraB.S. LAB BLOOD ADD-ON Performing Organization Address City/State/[facility] Phon e Number [facility] - [address] [place], [place] [phone] [place] [address] Laboratories[facility] [address] (ABNORMAL) Carbohydrate Antigen 19-9 (CA 19-9) (11/10/2020 6:29 AM CDT) Analysis Performed At Patho logist Time Signature Carbohydrate Ag 42 (H) <35 U/mL 11/10/2020 [facility] 19-9, S 9:55 AM CDT Comment: ----ADDITIONAL INFORMATION---- The testing method is an immunoenzymatic assay manufactured by [employer] and performed on the [employer] DxI 800. ? Values obtained with different assay met hods or kits may be different and cannot be used inte rchangeably. ? Test results cannot be interpreted as ab solute evidence for the presence or absence of malignant disease. Specimen Anatomical Collection Method Collection Time Receive d Time (Source) Location / / Volume Laterality Blood (Blood, 11/10/2020 6:29 AM 11/11/19 21 8:59 Venous) CDT AM CDT Nova ZamoraB.S. LAB BLOOD ADD-ON Performing Organization Address City/[facility] Phon e Number [facility] [address] [place], [place] [phone] [facility] [place] [address] Laboratory Medicine and Pathology [address] [place] (ABNORMAL) CBC with Differential, Blood (11/10/2020 6:28 AM CDT) Patholo gist Method Time Signature Hemoglobin 9.7 (L) 11.6 - 11/10/2020 DTL 15.0 g/dL 6:49 AM CDT Hematocrit 29.0 (L) 35.5 - 11/10/2020 DTL 44.9 % 6:49 AM CDT Erythrocytes 2.79 (L) 3.92 - 11/10/2020 DTL 5.13 6:49 AM CDT x10(12)/L MCV 103.9 (H) 78.2 - 11/10/2020 DTL 97.9 fL 6:49 AM CDT RBC Distrib Width 14.0 12.2 - 11/10/2020 DTL 16.1 % 6:49 AM CDT Platelet Count 161 157 - 371 11/10/2020 DTL x10(9)/L 6:49 AM CDT Leukocytes 3.0 (L) 3.4 - 9.6 11/10/2020 DTL x10(9)/L 6:49 AM CDT Neutrophils 1.73 1.56 - 11/10/2020 DTL 6.45 6:49 AM CDT x10(9)/L Lymphocytes 0.67 (L) 0.95 - 11/10/2020 DTL 3.07 6:49 AM CDT x10(9)/L Monocytes 0.54 0.26 - 11/10/2020 DTL 0.81 6:49 AM CDT x10(9)/L Eosinophils 0.04 0.03 - 11/10/2020 DTL 0.48 6:49 AM CDT x10(9)/L Basophils <0.03 0.01 - 11/10/2020 DTL 0.08 6:49 AM CDT x10(9)/L Specimen Anatomical Collection Method Collection Time Receive d Time (Source) Location / / Volume Laterality Blood (Blood, 11/10/2020 6:28 AM 11/11/19 21 6:41 Venous) CDT AM CDT Nova McnealSCh[place] LAB BLOOD ADD-ON Performing Organization Address City/State/ZIP Code Phon e Number [facility] - [address] [place], [place] [phone] [facility] [place] [address] Laboratories[facility] [address] documented in this encounter Visit Diagnoses Diagnosis Malignant Neoplasm Of Pancreas Adenocarc inoma (HCC) - Primary documented in this encounter Administered Medications Inactive Administered Medications - up to 3 most recent administrations Medication Order MAR Action Action Date Dose Rate Site heparin flush 500 Units Given 11/10/2020 6:33 AM CDT 500 Units 500 Units, intra-catheter, As needed, line care, Starting on Mon11/10/20 at 0633, When no infusion to maintain patency: For IVAD accessed, not in use, and/or prior to hospital discharge, flush every 7 days after 0.9% preservative-free NaCL flush. For IVAD NOT accessed or used, flush every 4 weeks after 0.9% preservative-free NaCL flush. sodium chloride 0.9 % injection 10 mL Given 11/10/2020 6:33 AM CDT 10 mL 10 mL, intra-catheter, As needed, line care, Starting on Mon11/10/20 at 0633, When IVAD Accessed and in Use: Flush prior to and following infusion, between multiple consecutive infusions, and prior to blood sampling. sodium chloride 0.9 % injection 20 mL Given 11/10/2020 6:33 AM CDT 20 mL 20 mL, intra-catheter, As needed, line care, Starting on Mon11/10/20 at 0633, When IVAD Accessed and in Use: Flush post blood transfusion or post blood sampling. documented in this encounter
--- OUTSIDE RECORDS SUMMARY | 2021-11-03 07:05 | XMS_ITS | Encounter Summary ---
:1940 Author Organization [facility] Address [address] [place] [address] Care Team Providers Name Role Phone Unavailable Primary Care Provider Unavailable Reason for Referral Outpatient (Routine) - Closed Specialty Diagnoses / Procedures Referred By Contact Refer red To Contact Oncology Kimberly Rios APRN, C.[facility].P[place], [facility] [address] [place] [phone] Referral ID Status Reason Start Date Expiration Date Visits Requ ested Visits Authorized [id number] Closed 11/24/2020 11/24/2021 1 1 Encounter Details Date Type Department Care Team Description 11/24/2020 Orders Only Department of Kimberly Rios eoplasm Of Oncology in [place] C.N.P[place], Pancreas Ad enocarcinoma [facility] (HCC) (Primary Dx) [address] [place] [address] [address] [place] [phone] Social History Tobacco Use Types Packs/Day Years [...] Comprehensive Visit Neurology Kenji Zaldivar M.D. 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
--- OUTSIDE RECORDS SUMMARY | 2021-11-03 07:05 | XMS_ITS | Encounter Summary ---
:1940 Author Organization [facility] Address [address] [place] [address] Care Team Providers Name Role Phone Unavailable Primary Care Provider Unavailable Reason for Visit Episode Based Medications (Routine) - Authorized Specialty Diagnoses / Procedures Referred By Contact Refer red To Contact Diagnoses Malignant Neoplasm Of Pancreas Adenocarcinoma (HCC) Neutropenia Chemotherapy Induced (HCC) Kimberly Rios, Rsmarleen Onc Coy HIGH C.N.P., M.S. [address] [place] [phone] Referral ID Status Reason Start Date Expiration Date Visits V isits Requested Authorized [id number] Authorized 06/03/2020 06/03/2021 99 99 Encounter Details Date Type Department Care Team Description 11/10/2020 Infusion Department of Oncology Nova Vivar Malig nant Neoplasm Of in [facility] MInnaB.S. Pancreas Adenocarcinoma [address] [facility] [address] [place] [address] (HCC) (Primary Dx) [place] [phone] Social History Tobacco Use Types Packs/Day Years [...] More than 4 times per year 06/19/2021 synagogue services? Do you belong to any clubs [...] Comprehensive Visit Neurology Kenji Zaldivar M.D. 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 Give subcutaneously if unable to give IV. Patient prefers SQ. dexamethasone in NaCl 0.9% IVPB 12 New Bag 11/10/2020 9:19 AM CDT 12 mg 200 mL/hr mg (DECADRON) 12 mg, intravenous, at 200 mL/hr, Administer over 15 Minutes, Once, On Mon11/10/20 at 0915, For 1 dose, Refrigerate fluorouraciL 3,000 mg in NaCl 0.9% 92 Given 11/10/2020 2:11 PM CDT 3,000 mg 2 mL/hr mL IVPB (ADRUCIL) 3,000 mg (rounded from 3,072 mg = 1,920 mg/m2 ? 1.6 m2 Treatment Plan BSA from Measured weight), intravenous, at 2 mL/hr, Administer over 46 Hours, over 46 hours, First dose on Mon11/10/20 at 1345, For 1 dose, Infuse at 2 mL/hr for 46 hours continuous infusion via CADD pump # [id number] fosaprepitant 150 mg in NaCl 0.9% New Bag 11/10/2020 9:39 AM C DT 150 mg 510 mL/hr (non-PVC) IVPB (EMEND) 150 mg, intravenous, at 510 mL/hr, Administer over 30 Minutes, Once, On Mon11/10/20 at 0915, For 1 dose, Incompatible with solutions containing divalent cations (calcium, magnesium) including lactated Ringer's solution. irinotecan 220 mg in D5W 559 mL New Bag 11/10/2020 12:28 PM CD T 220 mg 373 mL/hr IVPB (CAMPTOSAR) 220 mg (rounded from 218.88 mg = 144 mg/m2 ? 1.52 m2 Order-specific BSA), intravenous, at 373 mL/hr, Administer over 90 Minutes, Once, On Mon11/10/20 at 1215, For 1 dose, May be given via y-site with leucovorin. Protect from light. leucovorin 650 mg in D5W 307.5 mL New Bag 11/10/2020 12:25 PM CDT 650 mg 205 mL/hr IVPB 650 mg (rounded from 640 mg = 400 mg/m2 ? 1.6 m2 Treatment Plan BSA from Measured weight), intravenous, at 205 mL/hr, Administer over 90 Minutes, Once, On Mon11/10/20 at 1215, For 1 dose, Can be given via y-site with irinotecan. NaCl 0.9 % bolus 1,000 mL New Bag 11/10/2020 9:02 AM CDT 1,000 mL 1000 mL/hr 1,000 mL, intravenous, at 1,000 mL/hr, Administer over 1 Hours, Once, On Mon11/10/20 at 0915, For 1 dose ondansetron in NaCl 0.9% IVPB 16 mg New Bag 11/10/2020 9:02 AM CDT 16 mg 232 mL/hr (ZOFRAN) 16 mg, intravenous, at 232 mL/hr, Administer over 15 Minutes, Once, On Mon11/10/20 at 0915, For 1 dose oxaliplatin 100 mg in D5W 295 mL New Bag 11/10/2020 10:17 AM C DT 100 mg 148 mL/hr IVPB (ELOXATIN) 100 mg (rounded from 108.8 mg = 68 mg/m2 ? 1.6 m2 Treatment Plan BSA from Measured weight), intravenous, at 148 mL/hr, Administer over 2 Hours, Once, On Mon11/10/20 at 1015, For 1 dose, Flush infusion line with dextrose 5 % in water prior to administration of any concomitant medication. documented in this encounter
--- OUTSIDE RECORDS SUMMARY | 2021-11-03 07:05 | XMS_ITS | Encounter Summary ---
:1940 Author Organization [facility] Address [address] [place] [address] Care Team Providers Name Role Phone Unavailable Primary Care Provider Unavailable Reason for Visit Outpatient (Routine) - Closed Specialty Diagnoses / Procedures Referred By Contact Refer red To Contact Diagnoses Malignant Neoplasm Of Pancreas Adenocarcinoma (HCC) Kimberly Rios APRN, [facility] Procedures ONC Pump Disconnect C.N.P., M.S. 200 [place] [phone] Referral ID Status Reason Start Date Expiration Date Visits Requ ested Visits Authorized [id number] Closed 09/01/2020 09/01/2021 5 5 Encounter Details Date Type Department Care Team Description 11/12/2020 Infusion Department of Infusion Kimberly Rios Ma lignant Neoplasm Of Therapy in [facility], [place], C.N.P., Sigala creas Adenocarcinoma [facility] (HCC) (Primary Dx) [address] [place] [phone] Social History Tobacco Use Types Packs/Day [...] 06/19/2021 organizations such as rastafari groups, unions, fraMister Mario or athletic groups, or school groups? How [...] Comprehensive Visit Neurology Kenji Zaldivar M.D. 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 For IVAD NOT accessed or used, flush every 4 weeks after 0.9% preservative-free NaCL flush. sodium chloride 0.9 % injection 20 mL Given 11/12/2020 1:11 PM CDT 20 mL 20 mL, intra-catheter, As needed, line care, Starting on Laila 11/12/20 at 1312, When IVAD Accessed and in Use: Flush post blood transfusion or post blood sampling. documented in this encounter
--- OUTSIDE RECORDS SUMMARY | 2021-11-03 07:05 | XMS_ITS | Encounter Summary ---
:1940 Author Organization [facility] Address [address] [place] [phone] Care Team Providers Name Role Phone Unavailable Primary Care Provider Unavailable Reason for Referral Outpatient (Routine) Specialty Diagnoses / Procedures Referred By Contact Refer aurora To Contact Oncology Kimberly Rios APRN, C.N.P[place], [facility].S. [address] [place] [phone] Referral ID Status Reason Start Date Expiration Date Visits Requ ested Visits Authorized utpatient (Routine) Specialty Diagnoses / Procedures Referred By Contact Refer aurora To Contact Oncology Kimberly Rios APRN C.N.P., [facility].S. 200 [place] [phone] Referral ID Status Reason Start Date Expiration Date Visits Requ ested Visits Authorized RI/CAT/PET Scan (Routine) - Closed Specialty Diagnoses / Procedures Referred By Contact Refer aurora To Contact Radiology Diagnoses Malignant Neoplasm Of Pancreas Adenocarcinoma (HCC) Kimberly Rios APRN, [facility] Procedures CT Abdomen Pelvis with IV Contrast C.N.P., M.S. [address] [place] [phone] Referral ID Status Reason Start Date Expiration Date Visits Requ ested Visits Authorized [id number] Closed 12/09/2020 12/09/2021 1 1 Reason for Visit Episode Based Medications (Routine) - Authorized Specialty Diagnoses / Procedures Referred By Contact Refer red To Contact Diagnoses Malignant Neoplasm Of Pancreas Adenocarcinoma (HCC) Neutropenia Chemotherapy Induced (HCC) Kimberly Rios, Rst Onc Coy HIGH C.N.P., M.S. [address] [facility] [address] [place] [phone] Referral ID Status Reason Start Date Expiration Date Visits V isits Requested Authorized [id number] Authorized 06/03/2020 06/03/2021 99 99 Encounter Details Date Type Department Care Team Description 12/09/2020 Office Visit Department of Kimberly Rios eoplasm Of Pancreas Adenocarcinoma (HCC) (Primary Dx); Oncology in [place] C.N[place], Neutropenia Chemotherapy Induced (HCC) [facility].S. [address] [facility] [address] [place] [phone] Social History Tobacco Use Types Packs/Day Years [...] Sign Reading Time Taken Comments Blood Pressure 166/83 12/09/2020 8:35 AM CDT Pulse 63 12/09/2020 8:35 AM CDT Temperature 35.9 ??C (96.6 ??F) 12/09/2020 8:35 AM CDT Respiratory Rate 16 12/09/2020 8:35 AM CDT Oxygen Saturation 100% 12/09/2020 8:35 AM CDT Inhaled Oxygen Concentration - - Weight 52.1 kg (114 lb 13.8 oz) 12/09/2020 8:35 AM CDT Height 165.8 cm (5' 5.28) 12/09/2020 8:35 AM CDT Body Mass Index 18.95 12/09/2020 8:35 AM CDT documented in this encounter Progress Notes Kimberly Rios APRN, C.N.P., M.S. - 12/09/2020 8:50 AM CDT SUBJECTIVE PRIMARY CARE PHYSICIAN No primary care provider on file. LOCAL ONCOLOGIST No care child care team lead to display PRIMARY [place] ONCOLOGIST Nova Vivar M.B.B.S. Kimberly Rios APRN, C.N.P., M.S. CHIEF COMPLAINT / REASON FOR VISIT Azeb العراقي is a 80 y.o. 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 Cancer [...] periaortic, and mesenteric lymph nodes was reported ([facility] review). 3.) 05/25/2020 CA 19-9 178 [...] and the Common Hereditary Cancers panel from [email or web address] genetics lab. 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 06/08/2020 - Chemotherapy FOLFIRINOX ( Fluorouracil / Leucovorin / Irinotecan / Oxaliplatin ) Start Date: 06/08/2020 Interval History Ms. العراقي denies any nausea or vomiting. Weight has remained stable. She did notice that her mouth has been more sensitive. She does continue to supplement her diet with Creon. In the beginning would take 1 tablet with meals. She was continuing to have problems of then increased up to 4 tablets. Sincetaking that many tablets is noted increased amount of bloating in her abdomen. Also experiencing increased amount of stomach pains. She reports that she is cold all the time. Does continue to have frequent loose stools. Is presently taking 1 Lomotil every 12 hours. On bad days she would take approximately 4 Imodium tablets. 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 She denies chest pain, shortness of breath, [...] calcium level ) 180 capsule 3 ??? cudzidx-D2-gdcu-copper-marlo (Citracal-D3 Maximum Plus) 325 mg-12.5 mcg - [...] to port access). 30 g 0 ??? wfevze-smzxkueg-vyzgabc (CREON) 24,000-76,000-120,[address] capsule Take [...] 4HRS AT NIGHT 48 capsule 1 ??? magnesium oxide (MAG-OX) 400 mg (241.3 [...] nausea or vomiting. 30 tablet 3 ??? LORazepam (ATIVAN) 0.5 mg tablet Take 1 tablet (0.5 mg total) by mouth every 8 (eight) hours as needed (nausea, vomiting) for up to 30 doses. If ineffective, may repeat once after 30 minutes. 30 tablet 3 No current facility-administered medications on file prior to visit. REVIEW OF SYSTEMS Gastrointestinal: Positive for diarrhea. Neurological: Positive for numbness or shooting pain in hands, arms, legs, or feet. OBJECTIVE BP (!) 166/83 (BP Location: Left arm, Patient Position: Sitting) Pulse 63 Temp (!) 35.9 ??C (Tympanic) Resp 16 Ht 165.8 cm Wt 52.1 kg SpO2 100% BMI 18.95 kg/m?? Onc CTCAE Toxicity Assessment: Yes Abdominal Pain: 1 Mild pain Diarrhea: 2 Increase of 4 - 6 stools per day over baseline; moderate increase in ostomy output compared to baseline; limiting instrumental ADL PHYSICAL EXAMINATION General: Well [...] records and laboratory tests. At this time we will proceed with her next cycle of systemic chemotherapy. Neutrophils weredecreased to 1.3 today. We discussed that this may become an issue in the future and to avoid that 1option would be to administer Neulasta. Another option would be to postpone therapy by 1 week. At the conclusion of our discussion she decided to proceed with Neulasta therapy. She generally goes into [place] to have the pump disconnected and at that time can have the Neulasta administered. In regarding the abdominal bloating and stomach pain she is going to decrease the Creon to see if that will help with some of the discomfort she is experiencing. Also recommending increasing the Lomotil to 1 tablet by mouth every 8 hours instead of every 12 hours. She understands she can continue with the Imodium on an as-needed basis. In January they like to transition to their care to [facility] in [place]. I will work on trying to get that arranged for the 1st week in January. They are quite concerned about traveling in the winter to [place]. She stated full understanding and agreement with the plan. Denies any further questions or concerns. Has our telephone number to contact us should they have any further questions orconcerns. She has received her 3rd COVID vaccination without any difficulties. PATIENT EDUCATION Ready to learn, no apparent learning barriers were identified; learning preferences include listening. Explained diagnosis and treatment plan; patient expressed understanding of the content. ADMINISTRATIVE BILLING I personally spent 39 minutes in care of the patient today. Time includes both non face to face and face to face patient care. documented in this encounter Plan of Treatment Upcoming Encounters Date Type Specialty Care Team Description 11/19/2021 Clinical Communication Admitting/Central Scheduling 11/23/2021 Comprehensive Visit Neurology Kenji Zaldivar M.D. [address] [place] [address] Scheduled Referrals Name Type Priority Associated Diagnoses Order S chedule Oncology office Outpatient Referral Routine Malignant Neoplasm Of Expected: visit (clinic) Pancreas 01/05/2021, General; [facility] Adenocarcinoma ( HCC) Expires: Pancreatic Neutropenia 01/05/2022 Chemotherapy Induced (HCC) Oncology office Outpatient Referral Routine Malignant Neoplasm Of Expected: visit (clinic) Pancreas 02/01/2021, General; [facility] Adenocarcinoma ( HCC) Expires: Pancreatic Neutropenia 02/01/2022 Chemotherapy Induced (HCC) documented as of this encounter Results (ABNORMAL) Bilirubin, Direct (01/18/2021 8:31 AM CDT) athologist Signature Bilirubin, 1.1 (H) 0.0 - 0.3 01/18/2021 DTL Direct, S mg/dL 10:42 AM CDT Specimen Anatomical Collection Method Collection Time Receive d Time (Source) Location / / Volume Laterality Blood (Blood, 01/18/2021 8:31 AM 01/19/20 9:58 Venous) CDT AM CDT Harleen Rudolph APRN.N.Hossein., M.S. LAB BLOOD ADD-ON Performing Organization Address City/State/ZIP Code Phon e Number [facility] - [address] [place] [phone] [facility] [place] [place] [address] Laboratories-[address] (ABNORMAL) Comprehensive Metabolic Panel (01/18/2021 8:31 AM [...] 01/18/2021 DTL Black/ mL/min/BSA 10:42 AM CDT Estonian Comment: ----ADDITIONAL INFORMATION---- Estimated GFR calculated using [...] Organization Address City/State/ZIP Code Phon e Number [facility] - [address] [place] [phone] [facility] [place] [address] Laboratories-[facility] [address] [facility] (ABNORMAL) CBC with Differential, Blood (01/18/2021 8:31 AM CDT) [facility] Method Time Signature Hemoglobin 10.6 (L) 11.6 [...] M.S. LAB BLOOD ADD-ON Performing Organization Address City/[facility] Phon e Number [facility] - 200 [place], [place] [address] [place] [address] Laboratories-[address] Magnesium (01/18/2021 8:31 AM CDT) P athologist Signature Magnesium, S 2.2 1.7 - 2.3 01/18/2021 DTL mg/dL 10:42 AM CDT Specimen Anatomical Collection Method Collection Time Receive d Time (Source) Location / / Volume Laterality Blood (Blood, 01/18/2021 8:31 AM 01/19/20 9:58 Venous) CDT AM CDT Kimberly Rios APRN, C.N.P., M.S. LAB BLOOD ADD-ON Performing Organization Address City/[facility] Phon e Number [facility] - 200 [place], [place] [address] [place], [place] [phone] [place] [address] (ABNORMAL) Carbohydrate Antigen 19-9 (CA 19-9) (01/18/2021 8:31 AM CDT) Analysis Performed At Patho logist Time Signature Carbohydrate Ag 74 (H) <35 U/mL 01/18/2021 [facility] 19-9, S 2:05 PM CDT Comment: ----ADDITIONAL INFORMATION---- The testing method is an immunoenzymatic assay manufactured by [employer] and performed on the Tyba DxI 800. ? Values obtained with different [...] Venous) CDT 12:40 PM CDT Kimberly Rios APRN, C.N.P., M.S. LAB BLOOD ADD-ON Performing Organization Address City/[facility]/ZIP Code Phon e Number [facility] [address] [place], [place] [address] [facility] [place] [address] Laboratory Medicine and Pathology [address] [place] Bilirubin, Direct (01/04/2021 9:53 AM CDT) athologist Signature Bilirubin, <0.2 0.0 - 0.3 01/04/2021 DTL Direct, S mg/dL 10:45 AM CDT Specimen Anatomical Collection Method Collection Time Receive d Time (Source) Location / / Volume Laterality Blood (Blood, 01/04/2021 9:53 AM 01/05/20 Venous) CDT 10:26 AM CDT Kimberly Rios APRN, C.N.P., M.S. LAB BLOOD ADD-ON Performing Organization Address City/[facility] Phon e Number [facility] - [address] [place] [phone] [facility] [place] [place] [address] Laboratories-[facility] 200 [facility] (ABNORMAL) Comprehensive Metabolic Panel (01/04/2021 9:53 AM [...] 01/04/2021 DTL Black/ mL/min/BSA 10:47 AM CDT Estonian Comment: ----ADDITIONAL INFORMATION---- Estimated GFR calculated using [...] Venous) CDT 10:26 AM CDT Trace Rudolph APRNN.P., M.S. LAB BLOOD ADD-ON Performing Organization Address City/State/ZIP Code Phon e Number [facility] - [address] [place], [place] [address] [facility] [place] [place] [address] Laboratories-[facility] [address] (ABNORMAL) CBC with Differential, Blood (01/04/2021 9:53 AM CDT) [facility] Method Time Signature Hemoglobin 9.3 (L) 11.6 [...] 01/04/2021 9:53 AM 01/05/20 21 Venous) CDT 10:09 AM CDT Kimberly Rios APRN, C.N.P., M.S. LAB BLOOD ADD-ON Performing Organization Address City/[facility]/ZIP [facility] Phon e Number [facility] - [address] [place] [address] 05 [place] [address] Laboratories-[address] Magnesium (01/04/2021 9:53 AM CDT) athologist Signature Magnesium, S 2.2 1.7 - 2.3 01/04/2021 DTL mg/dL 10:45 AM CDT Specimen Anatomical Collection Method Collection Time Receive d Time (Source) Location / / Volume Laterality Blood (Blood, 01/04/2021 9:53 AM 01/05/20 Venous) CDT 10:26 AM CDT Kimberly Rios APRN, C.N.P., M.S. LAB BLOOD ADD-ON Performing Organization Address [facility] Phon e Number [facility] [address] [place] [address] 05 [place] [address] [facility]-[address] Carbohydrate Antigen 19-9 (CA 19-9) (01/04/2021 9:53 AM CDT) athologist Signature Carbohydrate Ag 29 <35 U/mL 01/04/2021 [facility] 19-9, S 3:57 PM CDT Comment: ----ADDITIONAL INFORMATION---- The testing method is an immunoenzymatic assay manufactured by [employer] and performed on the [employer] DxI 800. ? Values obtained with different [...] AM 01/05/20 2:59 Venous) CDT PM CDT Kimberly Rios APRN, C.N.P., M.S. LAB BLOOD ADD-ON Performing Organization Address City/[facility]/ZIP Code Phon e Number [facility] [address] [place], [place] [address] [facility] [place] [address] Laboratory Medicine and Pathology [address] Abdomen Pelvis with IV Contrast (12/22/2020 [...] (HCC) - Primary Neutropenia Chemotherapy Induced (HCC) Malignant Neoplasm Of Pancreas Adenocarc inoma (HCC) documented in this encounter
--- OUTSIDE RECORDS SUMMARY | 2021-11-03 07:05 | XMS_ITS | Encounter Summary ---
:1940 Author Organization [facility] Address [address] [place] [address] Care Team Providers Name Role Phone Unavailable Primary Care Provider Unavailable Encounter Details Date Type Department Care Team Description 10/28/2020 Orders Only Department of Oncology in [place], [place] Frank HIGH, M.S. [address] [facility] [address] [place] [address] [place], [place] [phone] (Wo rk) Social History Tobacco Use Types [...] Visit Neurology Kenji Zaldivar M.D. [address] [place] [address] documented as of this encounter Visit Diagnoses Not on filedocumented in this encounter
--- OUTSIDE RECORDS SUMMARY | 2021-11-03 07:05 | XMS_ITS | Encounter Summary ---
:1940 Author Organization [facility] Address [address] [place] [address] Care Team Providers Name Role Phone Unavailable Primary Care Provider Unavailable Reason for Referral Outpatient (Routine) - Closed Specialty Diagnoses / Procedures Referred By Contact Refer red To Contact Diagnoses Malignant Neoplasm Of Pancreas Adenocarcinoma (HCC) Kimberly Rios APRN, [facility] Procedures ONC Pump Disconnect C.N.P., M.S. [address] [place] [phone] Referral ID Status Reason Start Date Expiration Date Visits Requ ested Visits Authorized [id number] Closed 11/24/2020 11/24/2021 1 1 Reason for Visit Episode Based Medications (Routine) - Authorized Specialty Diagnoses / Procedures Referred By Contact Refer red To Contact Diagnoses Malignant Neoplasm Of Pancreas Adenocarcinoma (HCC) Neutropenia Chemotherapy Induced (HCC) Kimberly Rios, Rst Onc Trace Cespedes APRNN.P., M.S. 200 [facility] 200 [place] [phone] Referral ID Status Reason Start Date Expiration Date Visits V isits Requested Authorized [id number] Authorized 06/03/2020 06/03/2021 99 99 Encounter Details Date Type Department Care Team Description 11/24/2020 Infusion Department of Oncology Nova Vivar Malig nant Neoplasm Of in [facility] Pancreas Adenocarcinoma [address] (HCC) (Primary Dx) [place] [phone] Social History Tobacco Use Types Packs/Day Years [...] More than 4 times per year 06/19/2021 orthodoxy services? Do you belong to any clubs [...] Sign Reading Time Taken Comments Blood Pressure 161/66 11/24/2020 10:49 AM CDT Pulse 66 11/24/2020 10:49 AM CDT Temperature 36.5 ??C (97.7 ??F) 11/24/2020 10:36 AM CDT Respiratory Rate 16 11/24/2020 10:49 AM CDT Oxygen Saturation 99% 11/24/2020 10:49 AM CDT Inhaled Oxygen Concentration - - Weight 52.1 kg (114 lb 13.8 oz) 11/24/2020 10:36 AM CDT Height - - Body Mass Index 18.91 10/12/2020 2:55 PM CDT documented in this encounter Plan of Treatment Upcoming Encounters Date Type Specialty Care Team Description 11/19/2021 Clinical Communication Admitting/Central Scheduling 11/23/2021 Comprehensive Visit Neurology Kenji Zaldivar M.D. 200 [place] [address] Scheduled Orders Name Type Priority Associated Diagnoses Order S chedule ONC Pump Disconnect Procedures Routine Malignant Neoplasm Of Expected: Pancreas Adenocarcinoma 04/2020 (HCC) (Approximate), Expires: 2023 documented as of this encounter Visit Diagnoses Diagnosis Malignant Neoplasm Of Pancreas Adenocarc inoma (HCC) - Primary documented in this encounter Administered Medications Inactive Administered Medications - up to 3 most recent administrations Medication Order MAR Action Action Date Dose Rate Site atropine injection 0.25 mg Given 11/24/2020 2:43 0.25 mg Right Lower 0.25 mg, subcutaneous, PM CDT Ab domen Once, On Mon11/24/20 at 1400, For 1 dose, Give prior to Irinotecan. Give subcutaneously if unable to give IV. Patient prefers SQ. D5W infusion New Bag 11/24/2020 4:23 PM CDT 10 mL/hr 10 mL/hr 10-250 mL/hr, intravenous, As needed, Medications Incompatible with 0.9% NaCl, Starting on Mon11/24/20 at 1117, Infuse at the same rate as the piggyback until tubing clears or up to a volume of 20 mL pre and post infusion for medications incompatible with 0.9% NaCL. Use 100 mL bag then discard. dexamethasone in NaCl 0.9% IVPB 12 New Bag 11/24/2020 11:26 AM CDT 12 mg 200 mL/hr mg (DECADRON) 12 mg, intravenous, at 200 mL/hr, Administer over 15 Minutes, Once, On Mon11/24/20 at 1130, For 1 dose, Refrigerate fluorouraciL 3,000 mg in NaCl 0.9% 92 Given 11/24/2020 4:57 PM CDT 3,000 mg 2 mL/hr mL IVPB (ADRUCIL) 3,000 mg (rounded from 3,072 mg = 1,920 mg/m2 ? 1.6 m2 Treatment Plan BSA from Measured weight), intravenous, at 2 mL/hr, Administer over 46 Hours, over 46 hours, First dose on Mon11/24/20 at 1600, For 1 dose, Infuse at 2 mL/hr for 46 hours continuous infusion via CADD pump # [id number] fosaprepitant 150 mg in NaCl 0.9% New Bag 11/24/2020 12:08 PM CDT 150 mg 510 mL/hr (non-PVC) IVPB (EMEND) 150 mg, intravenous, at 510 mL/hr, Administer over 30 Minutes, Once, On Mon11/24/20 at 1130, For 1 dose, Incompatible with solutions containing divalent cations (calcium, magnesium) including lactated Ringer's solution. irinotecan 220 mg in D5W 559 mL New Bag 11/24/2020 2:48 PM CDT 220 mg 373 mL/hr IVPB (CAMPTOSAR) 220 mg (rounded from 218.88 mg = 144 mg/m2 ? 1.52 m2 Order-specific BSA), intravenous, at 373 mL/hr, Administer over 90 Minutes, Once, On Mon11/24/20 at 1430, For 1 dose, May be given via y-site with leucovorin. Protect from light. leucovorin 650 mg in D5W 307.5 mL New Bag 11/24/2020 2:46 PM C DT 650 mg 205 mL/hr IVPB 650 mg (rounded from 640 mg = 400 mg/m2 ? 1.6 m2 Treatment Plan BSA from Measured weight), intravenous, at 205 mL/hr, Administer over 90 Minutes, Once, On Mon11/24/20 at 1430, For 1 dose, Can be given via y-site with irinotecan. NaCl 0.9 % bolus 1,000 mL Restarted 11/24/2020 4:26 PM CDT 1000 mL/hr 1,000 mL, intravenous, at 1,000 mL/hr, Administer over 1 Hours, Once, On Mon11/24/20 at 1130, For 1 dose New Bag 11/24/2020 11:27 AM CDT 1,000 mL 1000 mL/hr ondansetron in NaCl 0.9% IVPB 16 mg New Bag 11/24/2020 11:48 A M CDT 16 mg 232 mL/hr (ZOFRAN) 16 mg, intravenous, at 232 mL/hr, Administer over 15 Minutes, Once, On Mon11/24/20 at 1130, For 1 dose oxaliplatin 100 mg in D5W 295 mL New Bag 11/24/2020 12:41 PM C DT 100 mg 148 mL/hr IVPB (ELOXATIN) 100 mg (rounded from 108.8 mg = 68 mg/m2 ? 1.6 m2 Treatment Plan BSA from Measured weight), intravenous, at 148 mL/hr, Administer over 2 Hours, Once, On Mon11/24/20 at 1230, For 1 dose, Flush infusion line with dextrose 5 % in water prior to administration of any concomitant medication. sodium chloride 0.9 % injection 10 mL Given 11/24/2020 11:27 AM CDT 10 mL 10 mL, intra-catheter, As needed, line care, Starting on Mon11/24/20 at 1117, When IVAD Accessed and in Use: Flush prior to and following infusion, between multiple consecutive infusions, and prior to blood sampling. Given 11/24/2020 11:25 AM CDT 10 mL documented in this encounter
--- OUTSIDE RECORDS SUMMARY | 2021-11-03 07:05 | XMS_ITS | Encounter Summary ---
:1940 Author Organization [facility] Address [address] [place] [address] Care Team Providers Name Role Phone Unavailable Primary Care Provider Unavailable Reason for Visit Reason Comments [facility] - 10/19/2020 Encounter Details Date Type Department Care Team Description 10/22/2020 Clinical Communication Division of Konrad Cid ( Labs - Endocrinology in [place] 10/19/2020) [place], [place] [address] [facility] [address] [place] [phone] Social History Tobacco Use Types Packs/Day Years [...] slept in a nursing home (including now)? Sex Assigned at Date Recorded Female 07/03/2017 2:07 PM CDT documented as of this encounter Progress Notes Konrad Cid M.D. - 10/22/2020 12:28 PM CDT Outside medical records received by fax from [facility] in [place], [place]. The patient's serum calcium was normal at 8.6 mg/dL (normal, 8.5 to 10.5) on October 19, 2020. In light of this finding, no additional recommendations for now. Konrad Cid M.D. CT CT Job ID: [id number] documented in this encounter Miscellaneous Notes Telephone Encounter - Carol Sullivan - 10/26/2020 8:08 AM CDT This information sent to patient via portal message. Telephone Encounter - Carol Sullivan - 10/22/2020 8:44 AM CDT [facility] [place] [place], [place]. You last saw the patient on 07/27/2020. The records are viewable in document viewer. Thank you, Carol Blake, Nursery Nurse [phone] documented in this encounter Plan of Treatment Upcoming Encounters Date Type Specialty Care Team Description 11/19/2021 Clinical Communication Admitting/Central Scheduling 11/23/2021 Comprehensive Visit Neurology Kenji Zaldivar M.D. 200 [place] [address] documented as of this encounter Visit Diagnoses Not on filedocumented in this encounter
--- OUTSIDE RECORDS SUMMARY | 2021-11-03 07:05 | XMS_ITS | Encounter Summary ---
:1940 Author Organization [facility] Address [address] [place] [id number] Care Team Providers Name Role Phone Unavailable Primary Care Provider Unavailable Encounter Details Date Type Department Care Team Description 11/10/2020 Clinical Communication Department of Oncology John Locke in [facility] blossom ZamoraB.. [address] [place] [address] [address] [place] [phone] Social History Tobacco Use Types Packs/Day Years [...] 06/19/2021 organizations such as faith groups, unions, fraternal or athletic groups, or [...] this encounter Miscellaneous Notes Telephone Encounter - John Locke M.B.B.S. - 11/10/2020 8:39 PM CDT Patient called stating that after her chemo infusion today, she noticed red/dark coloration on top of her chemo port. Never happened before. Has some itching. But no fever, warmth, pain or swelling. Has not noted any increase in size. Likely echymosis as pt reported that there was trouble accessing the port today and the tech had to do multiple punctures. Could also be dermatitis from tape/adhesive. Low concern for skin and soft tissue infection/ port site infection. Instructed patient to observe closely for increase in size, warmth, pain, swelling or fevers and give us a call. Also discussed usual course of resolution of echymosis. Pt would prefer call back from the care team tomorrow to check. documented in this encounter Plan of Treatment Upcoming Encounters Date Type Specialty Care Team Description 11/19/2021 Clinical Communication Admitting/Central Scheduling 11/23/2021 Comprehensive Visit Neurology Kenji Zaldivar M.D. 200 [place] [address] documented as of this encounter Visit Diagnoses Not on filedocumented in this encounter
--- OUTSIDE RECORDS SUMMARY | 2021-11-03 07:05 | XMS_ITS | Encounter Summary ---
:1940 Author Organization [facility] Address [address] [place] [address] Care Team Providers Name Role Phone Unavailable Primary Care Provider Unavailable Reason for Visit Episode Based Medications (Routine) - Authorized Specialty Diagnoses / Procedures Referred By Contact Refer red To Contact Diagnoses Malignant Neoplasm Of Pancreas Adenocarcinoma (HCC) Neutropenia Chemotherapy Induced (HCC) Kimberly Rios, Rst Onc Coy HIGH C.N.P., M.S. [address] [place] [address] [place] [phone] Referral ID Status Reason Start Date Expiration Date Visits V isits Requested Authorized [id number] Authorized 06/03/2020 06/03/2021 99 99 Encounter Details Date Type Department Care Team Description 11/10/2020 Nurse Only Department of Oncology in Mo Vivar M.B.B.S. [address] [place] [phone] [place], [place] Keshawn Morales RChicoN. [address] [place] [phone] [place] [phone] Social History Tobacco Use Types Packs/Day [...] Sign Reading Time Taken Comments Blood Pressure 175/71 11/10/2020 7:53 AM CDT Pulse 64 11/10/2020 7:53 AM CDT Temperature 36.3 ??C (97.3 ??F) 11/10/2020 7:53 AM CDT Respiratory Rate - - Oxygen Saturation 98% 11/10/2020 7:53 AM CDT Inhaled Oxygen Concentration - - Weight 52 kg (114 lb 10.2 oz) 11/10/2020 7:53 AM CDT Height - - Body Mass Index 18.87 10/12/2020 2:55 PM CDT documented in this encounter Progress Notes Keshawn Morales RChicoN. - 11/10/2020 8:00 AM CDT Nurse Only Toxicity Check Visit Collaborating Provider Kimberly Rios NP Reason for Visit Ms. العراقي is here in preparation for cycle 11 of FOLFIRINOX therapy Oncology History Malignant Neoplasm Of Pancreas Adenocarcinoma [...] periaortic, and mesenteric lymph nodes was reported ([facility] review). 3.) 05/25/2020 CA 19-9 178 [...] genetic counselling and BRCA testing. Patient deferred. 06/08/2020 - Chemotherapy FOLFIRINOX ( Fluorouracil / Leucovorin / Irinotecan / Oxaliplatin ) Start Date: 06/08/2020 Interval History by RN Ms. العراقي returns to clinic for reevaluation. She reports mild fatigue. She continues to have 2-3 stools per day. Closer to chemotherapy, she will have watery/loose consistency. This gradually thickens up. She increased Creon to 4 capsules with meals. She is taking all 4 capsules 15 min prior to eating. She is taking Lomotil 1 tablet twice daily, and Imodium as needed about 2-4 times a day. This is typically reserved for travel. She mostly still notices steatorrhea, and stools after eating, associated with gas pains, gurgling sounds, and burping. Denies melena or hematochezia. She reports to not having an appetite, but always finishes her meals. Weight remains stable. She denies nausea/vomiting. She reports a new skin alteration of her right ear, that appears raised and dark in color. She reports this occurred in a matter of 1-2 weeks. She also has a new mole of her right shoulder, and color changes to current skin alterations. With taking her dexamethasone, she noticed redness and slight swelling of her cheek bones. She also reports poor sleep on days of taking dexamethasone. Denies fevers, chills, chest pain, shortness of breath, mouth sores, headaches, leg swelling, or neuropathy. She wouldlike a referral to [place] to start receiving chemotherapy closer to home. Would like to start after her next imaging end of November. Labs reviewed by motion picture actor list reviewed & updated by RN Plan I have updated one of our care team providers, Kimberly Rios NP, regarding Ms. العراقي unit leader and labs. There are no findings that are unexpected at this point in treatment and the patient is managing symptoms adequately without significant acute toxicity. She will continue with FOLFIRINOX treatment as planned. We will refer her to [place] for chemotherapy. Will have her take half dose of dexamethasone, or 4 mg, days 2, 3, and 4. Kimberly did assess the new skin alterations, and recommended follow up with Modern Greek Studies Professor. The following recommendations were discussed with the patient: Encouraged hydration with caffeine-free clear liquids. and Encouraged activity as tolerated and restwhen needed. She was encouraged to contact our team at any time with questions or concerns. Ms. العراقي expressed understanding and agrees with the plan. They have no further questions or concerns at this time. documented in this encounter Miscellaneous Notes Addendum Note - Keshawn Morales R.N. - 11/10/2020 8:00 AM CDT Addended by: KESHAWN MORALES on: 11/10/2020 10:28 AM Modules accepted: Orders documented in this encounter Plan of Treatment Upcoming Encounters Date Type Specialty Care Team Description 11/19/2021 Clinical Communication Admitting/Central Scheduling 11/23/2021 Comprehensive Visit Neurology Kenji Zaldivar M.D. [address] [place] [address] documented as of this encounter Visit Diagnoses Diagnosis Malignant Neoplasm Of Pancreas Adenocarc inoma (HCC) documented in this encounter
--- OUTSIDE RECORDS SUMMARY | 2021-11-03 07:05 | XMS_ITS | Encounter Summary ---
:1940 Author Organization [facility] Address [address] [place] [address] Care Team Providers Name Role Phone Unavailable Primary Care Provider Unavailable Encounter Details Date Type Department Care Team Description 11/10/2020 Orders Only [facility] Sa jeana Cantu M.D. [address] [place], [place] [phone] (Wo rk) Social History Tobacco Use Types [...] Comprehensive Visit Neurology Kenji Zaldivar M.D. 200 [place] [address] documented as of this encounter Visit Diagnoses Not on filedocumented in this encounter
--- OUTSIDE RECORDS SUMMARY | 2021-11-03 07:05 | XMS_ITS | Encounter Summary ---
:1940 Author Organization [facility] Address [address] [place] [address] Care Team Providers Name Role Phone Veto Harleen Rubi APRN.N.Hossein., M.S.N. Primary Care Provider [phone] Encounter Details Date Type Department Care Team Description 11/24/2020 Clinical Communication Department of Oncology Kimberly Rios in [facility], [place] HIGHNJ[place], [facility]. 200 [facility] [address] [place] [phone] Social History Tobacco Use Types Packs/Day Years [...] or relatives? How often do you attend [employer] or More than 4 times per year 06/19/2021 cheondoism services? Do you belong to any clubs or Yes 06/19/2021 organizations such as samaritan groups, unions, fraternal or athletic groups, or [...] this encounter Miscellaneous Notes Telephone Encounter - Luis Felipe Duque - 11/24/2020 11:26 AM CDT Reason for Communication: Please call pt to schedule pump disconnect. Time and day noted in appt notes. Current Can Nursing/Provider leave a detailed message?: Did the patient refuse triage through Nurse line? (for symptom based concerns): Action Needed: Please call to schedule Name of Medication (if relevant): Please send all scheduling replies to scheduling pool. documented in this encounter Plan of Treatment Upcoming Encounters Date Type Specialty Care Team Description 11/19/2021 Clinical Communication Admitting/Central Scheduling 11/23/2021 Comprehensive Visit Neurology Kenji Zaldivar M.D. [address] [place] [address] documented as of this encounter Visit Diagnoses Not on filedocumented in this encounter Care Teams Media Marketing Manager Relationship Specialty Start Date End Date Aviva Laws APRN, C.N.P., PCP - General Family Medicine 12/11/20 09/23/21 M.S.N. [address] [place] [address] documented as of this encounter
--- OUTSIDE RECORDS SUMMARY | 2021-11-03 07:05 | XMS_ITS | Encounter Summary ---
:1940 Author Organization [facility] Address [address] [place] [address] Care Team Providers Name Role Phone Unavailable Primary Care Provider Unavailable Reason for Visit Outpatient (Routine) - Closed Specialty Diagnoses / Procedures Referred By Contact Refer red To Contact Clinical Genomics Diagnoses Malignant Neoplasm Of Pancreas Adenocarcinoma (HCC) [facility] [address] [place] [address] Referral ID Status Reason Start Date Expiration Date Visits Requ ested Visits Authorized [id number] Closed 10/12/2020 10/12/2021 1 1 Encounter Details Date Type Department Care Team Description 10/23/2020 Comprehensive Visit Department of Ketan García Neoplasm Of Medical Genetics in [place], Pancreas [facility], CGC Adenocarcinoma (HCC) [place] [address] [facility] [address] [place] [id number] Social History Tobacco Use Types Packs/Day Years [...] documented as of this encounter Consult Notes [place] García M.S. - 10/23/2020 10:30 AM CDT Images from the original note were not included. REFERRING PROVIDER Vidhya Zapata Ma. CHIEF COMPLAINT Personal diagnosis of pancreatic cancer HISTORY OF PRESENT ILLNESS Ms. العراقي is a 80 y.o. female referred by Sera Zapata [facility]. due to her diagnosis of pancreatic cancer. Ms. العراقي was diagnosed with pancreatic cancer at her current age of 80. Final pathology demonstrated adenocarcinoma. The patient has not undergone surgery. Treatment has included had chemotherapy. The patient reports no additional personal history of cancer. The patient undergoes annual mammography and colonoscopy every 5 years. She reports that 1-2 polyps were identified on her last colonoscopy. The patient is not a smoker and does not report a history of excessive alcohol intake. She does not have a history of diabetes or pancreatitis. The family history is significant for prostate cancer, leukemia, non-melanoma skin cancer, colon cancer, stomach cancer, uterine cancer, and thyroid cancer. Please see family history section below for additional details. The patient attended today's consultation with her , Will. FAMILY HISTORY A detailed family history was obtained from the patient and a pedigree was constructed. The pedigreewill be saved as a scanned document and available for viewing under the Media tab of [employer]. Our risk assessment is based upon medical and family history information as provided by the patient, and may change in the future should new information be obtained. Relevant History: Immediate Family History: -Brother: prostate cancer dx 70s, tx: radiation (no mets), currently age 83 -Brother: unaffected at age 66 -Son: unaffected at age 56 Maternal History: -Mother: thyroid cancer dx 30s, uterine cancer dx 40s, colon cancer dx 50s, stomach cancer dx 60s, age 77 -Grandmother: NOS cancer dx 50 (possibly colon cancer), age 50 Paternal History: -Father: leukemia dx 70s, non-melanoma skin cancer on ear, age 74 -Cousin: NOS cancer, age 75 The patient???s maternal ancestry is [place]; the patient???s paternal ancestry is [place]. There isno reported consanguinity or [employer]kenazi [employer] ancestry. IMPRESSION/REPORT/PLAN PATIENT EDUCATION We discussed that cancer is a relatively common diagnosis in the general population, and the majority of these cancers are either sporadic or familial. Hereditary cancers are caused by mutations withina single cancer susceptibility gene. Families with hereditary cancers tend to have the following features: specific types of cancer in multiple close relatives and in several consecutive generations, early age at diagnosis (under 50), multiple primary or bilateral tumors, and/or a lack of environmental or other known risk factors. Regarding the patient's personal history of pancreatic cancer, we discussed that approximately 1.5% of individuals will be diagnosed with pancreatic cancer during their lifetime, and an individual's risk may be altered by multiple risk factors. Risk factors for pancreatic cancer include: smoking, obesity, diabetes, chronic pancreatitis, age (about two-thirds of individuals diagnosed with pancreatic cancer are at least 65 years old), and family history. While the majority of pancreatic cancers are thought to be sporadic, approximately 5-10% of pancreatic cancers are associated with a strong underlying hereditary susceptibility and typically occur in families with multiple affected individuals. Mutations in multiple genes have been associated with a hereditary susceptibility to pancreatic cancer, including genes associated with hereditary breast and ovarian cancer (BRCA1 and BRCA2), the Ascencio syndrome genes (MLH1, MSH2, MSH6, PMS2, and EPCAM), PALB2 and FAITH, among others. We discussed the cancer risks and medical management guidelines associated with mutations in these genes. We discussed how these mutations are inherited through families. Regarding the patient's family history of colorectal cancer, we discussed that about 4% of men and women in the [place] will develop colorectal cancer during their lifetime. An individual's risk of developing colorectal cancer may be altered by multiple risk factors. Some known risk factors for colorectal cancer include: obesity, a diet high in red and processed meat, smoking, inflammatory bowel disease, abdominal radiation, a family history of colorectal cancer, and single-gene hereditary susceptibilities. It is believed that approximately 5%- 10% of colorectal cancers are associated with a strong underlying hereditary susceptibility, such as Ascencio syndrome. We discussed that Ascencio syndrome is an autosomal dominant condition associated with an increased risk for colon, endometrial, gastric, ovarian,and other cancers. Mutations in multiple genes can cause Ascencio syndrome, including MLH1, MSH2, MSH6,PMS2, and EPCAM. The likelihood of Ascencio syndrome is increased in individuals with colorectal cancerwith one or more of the following characteristics: diagnosed at younger than 50 years, who have a lower body mass index, or who have a strong family history of Ascencio- associated cancers. Additionally, mutations in other genes, including APC and MUTYH, among others, have been found to cause a hereditarysusceptibility to polyposis and colorectal cancer. We discussed the cancer risks and medical management guidelines associated with mutations in these genes. We discussed how these mutations are inherited through families. Regarding the patient's family history of uterine cancer, we discussed that about 2-3% of women in the [place] will develop uterine cancer during their lifetime. It is believed that approximately 5%-10% of uterine cancers are associated with a strong underlying hereditary susceptibility, such as Ascencio syn drome. We discussed that Ascencio syndrome is an autosomal dominant condition associated with an increased risk for colon, endometrial, gastric, ovarian, and other cancers. Mutations in multiple genes cancause Ascencio syndrome, including MLH1, MSH2, MSH6, PMS2, and EPCAM. The likelihood of Ascencio syndrome is increased in individuals with colorectal cancer with one or more of the following characteristics:diagnosed at younger than 50 years, who have a lower body mass index, or who have a strong family history of Ascencio-associated cancers. Additionally, mutations in other genes, including PTEN have been found to cause a hereditary susceptibility to uterine cancer. We discussed the cancer risks and medical management guidelines associated with mutations in these genes. We discussed how these mutations are inherited through families. Regarding the patient's family history of stomach cancer, we discussed that approximately 0.8 percent of men and women will be diagnosed with stomach cancer at some point during their lifetime. The majority of these cancers are sporadic. However, approximately 5-10% of stomach cancers are associated with a strong underlying hereditary susceptibility, such as CDH1. Hereditary Diffuse Gastric Cancer syndrome (HDGC), caused by pathogenic variants in the CDH1 gene, is associated with increased risks fordiffuse gastric cancer and lobular breast cancer. Diffuse gastric cancer is a poorly differentiated adenocarcinoma that infiltrates into the stomach wall causing thickening of the wall (linitis plastica) without forming a distinct mass. Mutations in other genes, including the Ascencio syndrome genes and others, are also associated with an increased risk of stomach cancer. We discussed the cancer risks and medical management guidelines associated with mutations in these genes. We discussed how these muta tions are inherited through families. Regarding the patient's family history of thyroid cancer, we discussed that the most common form of thyroid cancer is papillary. Approximately 80% of individuals have this type of thyroid cancer. Papillary thyroid cancer can occur at any age, but most often affects people ages 30-50. Follicular thyroid cancer is also more relatively common. Less common types of thyroid cancer include anaplastic and medullary. Most cases of thyroid cancer are sporadic, and risk factors for thyroid cancer include: being female, exposure to high levels of radiation, having a history of goiters, and others. We briefly discussed that there are multiple genetic syndromes which are associated with medullary thyroid cancer. Approximately 25% of medullary thyroid cancer is hereditary. These can include the association of tumors involving the parathyroid glands, the pituitary glands, and the pancreas (Multiple Endocrine Neoplasia Type1 (MEN1). Multiple Endocrine Neoplasia Type 2 (MEN2) is further divided into three subtyp es based on their characteristics: MEN2A, Familial Medullary Thyroid Carcinoma (FMTC) and MEN2B. Allthree subtypes involve a high risk to develop medullary thyroid cancer. MEN2A is also associated with increased risk for pheochromocytoma, parathyroid adenoma, or hyperplasia. MEN2B is also associated with mucosal neuromas of the lips and tongue, tall stature, and ganglioneuromatosis of the GI tract. Other genes, such as PTEN, can also be associated with thyroid cancer. Individuals with mutations in the PTEN gene have a condition called Henrik syndrome. Henrik syndrome is also associated with an increased risk of developing several types of cancer, particularly cancers of the breast, thyroid, and the lining of the uterus (the endometrium). Other cancers that have been identified in people with Henrik syndrome include colorectal cancer, kidney cancer, and a form of skin cancer called melanoma. Henrik syndrome is caused by mutations in the PTEN gene. Most patients with Henrik syndrome have characteristic skin lesions (trichilemmomas, acral keratoses, oral mucosal papillomatosis, and cutaneous facial papules) and macrocephaly. Other associated findings include thyroid lesions (e.g. adenoma, nodules, and goiter), gastrointestinal hamartomas, fibrocystic breasts, uterine fibroids, lipomas, autism spectrum disorder, and learning disabilities. Current genetic testing technology is able to identify a mutation in PTEN in about 90% of patients with a known clinical diagnosis of Henrik syndrome. Regarding the patient's family history of prostate cancer, we discussed that prostate cancer is a relatively common diagnosis among men in the general population. In fact, approximately 1 out of 7 men in the [place] are diagnosed with prostate cancer in their lifetime. Most prostate cancers are b elieved to occur sporadically. Hereditary cancers are caused by mutations within a single cancer susceptibility gene. Only 5-10% of all prostate cancer is expected to be hereditary (Jase et al., 2016). Families with hereditary prostate cancer tend to have high-grade prostate cancer (metastatic ORGleason score or 7 or higher), rare cancers (like male breast cancer or ovarian cancer), cancer diagnosed at a young age (<50 years), and/or multiple cancers in one individual. Mutations in some genes, like HOXB13, cause high risk for prostate cancer (up to 60%), while mutations in other genes, like BRCA1, BRCA2, and the Ascencio Syndrome genes, are believed to cause moderate risk for prostate cancer (16-30%). Mutations in newly identified genes, such as NBN and FAIHT, may also cause increased risks for prostate cancer; however the exact cancer risks are not known at this time. Therefore, it may be difficult to provide appropriate screening/medical management recommendations. Additionally there is asignificant risk that a variant of uncertain significance may be identified by genetic testing. There is not a strong underlying genetic predisposition to leukemia or non- melanoma skin cancer. In other words, most leukemias and non-melanoma skin cancers are not caused by inherited gene mutations,but instead are the result of gene changes acquired during the person's lifetime. Sometimes these gene changes are caused by exposures (e.g. radiation), lifestyle, environmental factors, and ageing. We discussed testing panels that cover many genes known or thought to be associated with hereditary or familial cancer. Mutations in some of the genes account for rare hereditary cancer syndromes that include significant risks for cancer, while other genes are currently thought of as modifier genes that potentially increase the risk for cancer. There are several limitations of these tests. The exact cancer risks for some of the genes that are included on these panels are not known at this point in time. Therefore, it may be difficult to provide appropriate screening/medical management recommendations. Additionally, there is a significant chance that a variant of uncertain significance may be identified. Approximate cost, insurance coverage, and laws governing genetic discrimination were discussed. Risks, benefits, and limitations of genetic testing were discussed. Implications of possible test results, including positive, negative, and variant of uncertain significance, were discussed. RISK ASSESSMENT The patient's personal and family history is moderately suggestive of a genetic predisposition to cancer. The patient meets current National Comprehensive Cancer Network (NCCN) Testing Criteria for pancreatic cancer susceptibility genes. Genetic testing is warranted for the patient as results will help clarify her future cancer risks and, thus, will help direct decisions regarding cancer screening and prevention. Results could also potentially inform future treatment options for the patient. PLAN Ms. العراقي elected to pursue a custom panel including the Common Hereditary Cancer panel and the Pancreatic Cancer panel through [employer]. The laboratory will complete insurance pre-verification for testing and will contact the patient if her estimated [id number] cost exceeds $100. Results will becomeavailable approximately 3-4 weeks from the release of testing. We will contact the patient via telephone with her test results when they become available. Screening and management recommendations will be made for the patient and her family members at the time of results disclosure. It was a pleasure to meet Ms. العراقي. She is certainly welcome to contact us with any additional questions. PATIENT EDUCATION: All of the above was discussed in detail with the patient who verbalized understanding. The patient's questions were answered. Total time: 42 minutes documented in this encounter Plan of Treatment Upcoming Encounters Date Type Specialty Care Team Description 11/19/2021 Clinical Communication Admitting/Central Scheduling 11/23/2021 Comprehensive Visit Neurology Kenji Zaldivar M.D. [address] [place] [address] documented as of this encounter Visit Diagnoses Diagnosis Malignant Neoplasm Of Pancreas Adenocarc inoma (HCC) documented in this encounter
--- OUTSIDE RECORDS SUMMARY | 2021-11-03 07:05 | XMS_ITS | Encounter Summary ---
:1940 Author Organization [facility] Address [address] [place] [address] Care Team Providers Name Role Phone Unavailable Primary Care Provider Unavailable Encounter Details Date Type Department Care Team Description 11/23/2020 Orders Only Department of Oncology in [place], [place] Frank HIGH, M.S. [address] [facility] [address] [place] [address] [place], [place] [phone] (Wo rk) Social History Tobacco Use Types [...] More than 4 times per year 06/19/2021 pentecostalism services? Do you belong to any clubs [...] Visit Neurology Kenji Zaldivar M.D. [address] [place] [address] documented as of this encounter Visit Diagnoses Not on filedocumented in this encounter
--- OUTSIDE RECORDS SUMMARY | 2021-11-03 07:06 | XMS_ITS | Encounter Summary ---
:1940 Author Organization [facility] Address [address] [place] [address] Care Team Providers Name Role Phone Unavailable Primary Care Provider Unavailable Encounter Details Date Type Department Care Team Description 10/03/2020 Documentation Department of Oncology in [place] Kunz ma [place], [place] Kasey [address] [facility] [address] [place] [address] [place], [place] [phone] (Wo rk) Social History Tobacco Use [...] More than 4 times per year 06/19/2021 [employer] services? Do you belong to any clubs [...] for the very basics like Not h micthel at all 06/19/2021 food, housing, medical care, [...] or slept in a penitentiary (including now)? Sex Assigned at Date Recorded Female 07/03/2017 2:07 PM CDT documented as of this encounter Progress Notes Cheri Kunz M.D. - 10/03/2020 8:29 PM CDT #1 High-grade pancreatic adenocarcinoma currently on FOLFIRINOX receive cycle 8 on October 01, 2020. #2 Grade 3 diarrhea but non life-threatening I am the on-call fellow. I got a call from the patient mentioning that she has been experiencing diarrheal bowel movements today. Total of 9 bowel movements for the last 24 hours. Yesterday was normal for her. She has been taking Imodium but the dosing may not have been appropriate. Patient's oral intake is intact and no nausea. She is not at risk for dehydration at the moment. Most probably this is chemotherapy/irinotican induced. I asked the patient to take 4 mg (2 capsules) of Imodium after the next bowel movement and then another 1 capsules after subsequent bowel movements not to exceed 8 capsules (16 mg per day) total per day. Patient does not have any abdominal pain or any other constitutional signs or symptoms of infections. If this did not subside the patient's diarrhea, I would encourage the patient go to the emergency department to evaluate for infectious etiologies such as Clostridium difficile infection. Subsequently,if Imodium is not working, patient could be treated with octreotide or tincture of opium. This should be done after excluding infectious etiologies and also after assessing for dehydration. I specially emphasized and encouraged oral fluids to prevent dehydration. Patient is tolerating oralfluid very well. Guidance was given. Patient will continue to take Imodium. If this did not subside, patient will give us a call back. All questions were answered to satisfaction. documented in this encounter Plan of Treatment Upcoming Encounters Date Type Specialty Care Team Description 11/19/2021 Clinical Communication Admitting/Central Scheduling 11/23/2021 Comprehensive Visit Neurology Kenji Zaldivar M.D. [address] [place] [address] documented as of this encounter Visit Diagnoses Not on filedocumented in this encounter
--- OUTSIDE RECORDS SUMMARY | 2021-11-03 07:06 | XMS_ITS | Encounter Summary ---
:1940 Author Organization [facility] Address [address] [place] [address] Care Team Providers Name Role Phone Unavailable Primary Care Provider Unavailable Encounter Details Date Type Department Care Team Description 09/29/2020 Orders Only Department of Oncology in [facility] [place], [place] Frank HIGH, M.S. [address] [facility] [address] [place] [address] [place], [place] [phone] (Wo rk) Social History Tobacco Use Types [...] More than 4 times per year 06/19/2021 episcopalian services? Do you belong to any clubs [...] or slept in a custodial (including now)? Sex Assigned at Date Recorded Female 07/03/2017 2:07 PM CDT documented as of this encounter Plan of Treatment Upcoming Encounters Date Type Specialty Care Team Description 11/19/2021 Clinical Communication Admitting/Central Scheduling 11/23/2021 Comprehensive Visit Neurology Kenji Zaldivar M.D. [address] [place] [address] documented as of this encounter Visit Diagnoses Not on filedocumented in this encounter
--- OUTSIDE RECORDS SUMMARY | 2021-11-03 07:06 | XMS_ITS | Encounter Summary ---
:1940 Author Organization [facility] Address [address] [place] [address] Care Team Providers Name Role Phone Unavailable Primary Care Provider Unavailable Reason for Visit Reason Comments [facility] - labs 10/02/20 Encounter Details Date Type Department Care Team Description 10/06/2020 Clinical Communication Division of Konrad Cid [facility] - labs 10/02/20 Endocrinology issa Phillips M.D. [place], [place] [address] [facility] [address] [place] [phone] [place] [address] Social History Tobacco Use Types Packs/Day Years [...] slept in a senior care (including now)? Sex Assigned at Date Recorded Female 07/03/2017 2:07 PM CDT documented as of this encounter Miscellaneous Notes Telephone Encounter - Carol Sullivan - 10/06/2020 6:53 PM CDT We received outside records on your patient from [facility], [place], [place]. You last saw the patient on 07/27/2020. The records are viewable in document viewer. Thank you, Carol Blake, [employer]er [phone] documented in this encounter Plan of Treatment Upcoming Encounters Date Type Specialty Care Team Description 11/19/2021 Clinical Communication Admitting/Central Scheduling 11/23/2021 Comprehensive Visit Neurology Kenji Zaldivar M.D. [address] [place] [address] documented as of this encounter Visit Diagnoses Not on filedocumented in this encounter
--- OUTSIDE RECORDS SUMMARY | 2021-11-03 07:06 | XMS_ITS | Encounter Summary ---
:1940 Author Organization [facility] Address [address] [place] [address] Care Team Providers Name Role Phone Unavailable Primary Care Provider Unavailable Reason for Visit Reason Comments OSM Encounter Details Date Type Department Care Team Description 09/22/2020 Clinical Communication Division of Konrad Cid OS M Endocrinology in [place]. [place], [place] [address] [place] [address] [address] [place] [phone] Social History Tobacco Use Types Packs/Day Years [...] or slept in a residential (including now)? Sex Assigned at Date Recorded Female 07/03/2017 2:07 PM CDT documented as of this encounter Progress Notes Konrad Cid M.D. - 09/22/2020 12:42 PM CDT Outside medical records received by fax for review. The patient's laboratory values from [facility] at the [facility] in [place], [place], showed her serum calcium decreased at 8.1 mg/dL (normal, 8.5 to 10.5). She will increase her Citracal to 4 tablets each day and keep her calcitriol at 2 capsules each day. In light of this finding, no additional recommendations for now. Konrad Cid M.D. CT CT Job ID: [id number] documented in this encounter Miscellaneous Notes Telephone Encounter - Carol Sullivan - 09/22/2020 12:21 PM CDT We received outside records on your patient from [facility] - [place], [place]. You last saw the patient on 07/27/20. The records are viewable in document viewer. Thank you, Carol Blake, Silver Solderer [phone] documented in this encounter Plan of Treatment Upcoming Encounters Date Type Specialty Care Team Description 11/19/2021 Clinical Communication Admitting/Central Scheduling 11/23/2021 Comprehensive Visit Neurology Kenji Zaldivar M.D. [address] [place] [address] documented as of this encounter Visit Diagnoses Not on filedocumented in this encounter
--- OUTSIDE RECORDS SUMMARY | 2021-11-03 07:06 | XMS_ITS | Encounter Summary ---
:1940 Author Organization [facility] Address [address] [place] [address] Care Team Providers Name Role Phone Unavailable Primary Care Provider Unavailable Reason for Referral Outpatient (Routine) Specialty Diagnoses / Procedures Referred By Contact Refer red To Contact Oncology Nova Vivar M.B.B.S . [facility] [address] [place] [phone] Referral ID Status Reason Start Date Expiration Date Visits Requ ested Visits Authorized utpatient (Routine) Specialty Diagnoses / Procedures Referred By Contact Refer red To Contact Oncology Nova Vivar M.B.B.S . [facility] [address] [place] [phone] Referral ID Status Reason Start Date Expiration Date Visits Requ ested Visits Authorized utpatient (Routine) - Closed Specialty Diagnoses / Procedures Referred By Contact Refer red To Contact Clinical Genomics Diagnoses Malignant Neoplasm Of Pancreas Adenocarcinoma (HCC) Nova Vivar Ro chester Johan M.B.B.S. [address] [place] [phone] Referral ID Status Reason Start Date Expiration Date Visits Requ ested Visits Authorized [id number] Closed 10/12/2020 10/12/2021 1 1 Reason for Visit Episode Based Medications (Routine) - Authorized Specialty Diagnoses / Procedures Referred By Contact Refer red To Contact Diagnoses Malignant Neoplasm Of Pancreas Adenocarcinoma (HCC) Neutropenia Chemotherapy Induced (HCC) Kimberly Rios, Rst Onc Coy HIGH C.N.P., M.S. [address] [place] [phone] Referral ID Status Reason Start Date Expiration Date Visits V isits Requested Authorized [id number] Authorized 06/03/2020 06/03/2021 99 99 Encounter Details Date Type Department Care Team Description 10/12/2020 Office Visit Department of Nova Vivar, Malignant Neop lasm Of Pancreas Adenocarcinoma (HCC) (Primary Dx); Oncology in M.[facility]. Secondary Malignant Neoplasm Lymph Node (HCC); [place], [place] [address] [facility] Steatorrhea (HCC); [address] [place], [place] Neutropenia Chemotherapy Ind uced (HCC) [place] [phone] Social History Tobacco Use Types Packs/Day Years [...] or slept in a [facility] (including now)? Sex Assigned at Date Recorded Female 07/03/2017 2:07 PM CDT documented as of this encounter Last Filed Vital Signs Vital Sign Reading Time Taken Comments Blood Pressure 164/77 10/12/2020 2:55 PM CDT Pulse 73 10/12/2020 2:55 PM CDT Temperature 36 ??C (96.8 ??F) 10/12/2020 2:55 PM CDT Respiratory Rate 16 10/12/2020 2:55 PM CDT Oxygen Saturation 97% 10/12/2020 2:55 PM CDT Inhaled Oxygen Concentration - - Weight - - Height 166 cm (5' 5.35) 10/12/2020 2:55 PM CDT Body Mass Index - - documented in this encounter Progress Notes Nova Vivar M.B.B.S. - 10/12/2020 2:50 PM CDT CHIEF COMPLAINT/PURPOSE OF VISIT: Metastatic pancreas cancer with lymphadenopathy. CURRENT TREATMENT/MANAGEMENT PLAN FOLFIRINOX PRIMARY CARE PHYSICIAN No primary care provider on file. REQUESTING PROVIDER Kimberly Rios APRN, C.N.P., M.S. [address] [place] [phone] LOCAL ONCOLOGIST No care field marketing team leader to display PRIMARY FONTANA ONCOLOGIST Nova Vivar M.B.B.S. Kimberly Rios APRN, C.N.Hossein., M.S. HISTORY OF PRESENT ILLNESS: Ms. العراقي [...] periaortic, and mesenteric lymph nodes was reported ([facility] review). 3.) 05/25/2020 CA [id number] [id number] [...] INTERVAL HISTORY: Ms. العراقي returns today for restaging and toxicity check. Should parotids fair energy level over the last 4 cycles of treatment, better than the initial 4 cycles. Her appetite had remained stable but she still struggle with steatorrhea. She reported the diarrhea to be not related to chemotherapy timing and she had been managing that with Imodium, and has been taking 1 tablet of Creon with each meal. She denies any significant numbness in the fingers and toes. ECOG performance status 1. ROS: Pertinent items are noted in HPI; all other review of systems were negative. No data recorded VITAL SIGNS: Vitals: 10/12/20 1455 BP: (!) 164/77 BP Location: Right arm Patient Position: Sitting Cuff Size: Small Pulse: 73 Resp: 16 Temp: 36 ??C TempSrc: Tympanic SpO2: 97% Height: 166 cm PHYSICAL EXAM Vitals reviewed. Constitutional General: She is not in acute distress. Appearance: She is not toxic-appearing. Eyes General: No scleral icterus. Conjunctiva/sclera: Conjunctivae normal. Cardiovascular Rate and Rhythm: Normal rate. Pulmonary Effort: Pulmonary effort is normal. No respiratory distress. Breath sounds: No wheezing. Musculoskeletal Right ankle: No swelling. Left ankle: No swelling. Skin Coloration: Skin is not jaundiced. Neurological Mental Status: She is alert and oriented to person, place, and time. DIAGNOSTICS: I reviewed the imaging studies and agree with the interpretation as recorded. I reviewed the pertinent laboratory and diagnostic data. 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 العراقي is a 80 y.o. female with metastatic pancreas cancer with extensive abdominal lymphadenopathy currently on FOLFIRINOX. Patient returns today for restaging. I did review the results and images with the patient and her . The CT scan showed improvement of abdominal lymphadenopathy, and soft tissue surrounding celiac/SMA and IVC. Her CA 19-9 had also continued to trend down. As a whole, objective finding does indicate that she is benefiting from FOLFIRINOX. Given that, I would recommend continuing with the current treatment course. She will continue with her treatment plan for tomorrow and in 2 weeks. We will plan to see her every other cycle. In terms of her diarrhea, her symptoms is consistent with steatorrhea with floating stool and flatulence. She is currently taking 1 Creon before each meal. We discussed about increasing her Creon and titrate that according to her diarrhea. She will try starting with full Creon before dinner and adjust accordingly for other meals. We also discussed about strategies in managing her fatigue including taking plan breaks or dose reduction. Patient will be meeting with her dog warden to discuss about cataract surgery. If need to, we can certainly whole FOLFIRINOX treatment to accommodate for the surgery. We also discussed that there was insufficient tumor cells in previous biopsy for NGS testing. Patient is agreeable for genetic counseling and we will defer to our colleagues in genetic counseling in ordering the appropriate panel for pancreas cancer including BRCA/PALB2 mutations. Patient and her were given opportunity to [...] of care as described above. This include [id number] and non vqci-cn-gabn time. documented in this encounter Plan of Treatment Upcoming Encounters Date Type Specialty Care Team Description 11/19/2021 Clinical Communication Admitting/Central Scheduling 11/23/2021 Comprehensive Visit Neurology Kenji Zaldivar M.D. [address] [place] [address] Scheduled Referrals Name Type Priority Associated Diagnoses Order S chedule Clinical Genomics Outpatient Referral Routine Malignant Neopla sm Of Expected: - General Pancreas Adenocarcinoma 09/24 genetics consult (HCC) (Approximat e), (clinic) Expires: 10/13/2023 Oncology office Outpatient Referral Routine Malignant Neoplasm Of Expected: visit (clinic) Pancreas Adenocarcinoma , (HCC) Expires: 11/10/2021 Oncology office Outpatient Referral Routine Malignant Neoplasm Of Expected: visit (clinic) Pancreas Adenocarcinoma , (HCC) Expires: 12/08/2021 documented as of this encounter Results Bilirubin, Direct (12/22/2020 8:29 AM CDT) P athologist Signature Bilirubin, <0.2 0.0 - 0.3 12/22/2020 DTL Direct, S mg/dL 9:43 AM CDT Specimen Anatomical Collection Method Collection Time Receive d Time (Source) Location / / Volume Laterality Blood (Blood, 12/22/2020 8:29 AM 12/23/19 8:40 Venous) CDT AM CDT Nova ZamroaB.S. LAB BLOOD ADD-ON Performing Organization Address City/State/ZIP Code Phon e Number [facility] - [address] [place] [address] [facility] [place] [address] Laboratories-[facility] 200 [facility] (ABNORMAL) Comprehensive Metabolic Panel (12/22/2020 8:29 AM CDT) P athologist Signature Potassium, S 4.3 3.6 - [...] 12/22/2020 DTL Black/ mL/min/BSA 9:39 AM CDT Prydeinig Comment: ----ADDITIONAL INFORMATION---- Estimated GFR calculated using [...] 12/23/19 8:40 Venous) CDT AM CDT Nova ZamoraBChicoSChico LAB BLOOD ADD-ON Performing Organization Address City/State/ZIP Code Phon e Number [facility] - 200 [place], [place] [address] [facility] [place] [address] Laboratories-[facility] [address] [facility] (ABNORMAL) CBC with Differential, Blood (12/22/2020 8:29 AM CDT) [facility] Method Time Signature Hemoglobin 10.1 (L) 11.6 [...] 12/23/19 8:45 Venous) CDT AM CDT Nova Fontaine.B.S. LAB BLOOD ADD-ON Performing Organization Address City/[facility] Phon e Number [facility] - [address] Magnesium (12/22/2020 8:29 AM CDT) P athologist Signature Magnesium, S 2.3 1.7 - 2.3 12/22/2020 DTL mg/dL 9:43 AM CDT Specimen Anatomical Collection Method Collection Time Receive d Time (Source) Location / / Volume Laterality Blood (Blood, 12/22/2020 8:29 AM 12/23/19 8:40 Venous) CDT AM CDT Nova ZamoraB.S. LAB BLOOD ADD-ON Performing Organization Address City/State/[facility] Code Phon e Number [facility] - [address] Bilirubin, Direct (12/09/2020 7:13 AM CDT) P athologist Signature Bilirubin, <0.2 0.0 - 0.3 12/09/2020 DTL Direct, S mg/dL 8:00 AM CDT Specimen Anatomical Collection Method Collection Time Receive d Time (Source) Location / / Volume Laterality Blood (Blood, 12/09/2020 7:13 AM 12/10/19 7:21 Venous) CDT AM CDT Nova Allen LAB BLOOD ADD-ON Performing Organization Address City/State/ZIP Code Phon e Number [facility] - 200 [place], [place] [address] [place] [address] [facility] [address] [facility] (ABNORMAL) Comprehensive Metabolic Panel (12/09/2020 7:13 AM CDT) P athologist Signature Potassium, S 3.7 3.6 - [...] 12/09/2020 DTL Black/ mL/min/BSA 7:56 AM CDT Prydeinig Comment: ----ADDITIONAL INFORMATION---- Estimated GFR calculated using [...] 12/10/19 7:21 Venous) CDT AM CDT Nova Allen LAB BLOOD ADD-ON Performing Organization Address City/State/ZIP Code Phon e Number [facility] - [address] [place] [address] [facility] [place] [address] [facility] [address] [facility] (ABNORMAL) CBC with Differential, Blood (12/09/2020 7:13 AM CDT) [facility] Method Time Signature Hemoglobin 9.6 (L) 11.6 [...] 12/10/19 7:21 Venous) CDT AM CDT Nova Fontaine.B.S. LAB BLOOD ADD-ON Performing Organization Address City/State/[facility] Phon e Number [facility] - [address] [place], [place] [id number] [place] [address] Magnesium (12/09/2020 7:13 AM CDT) athologist Signature Magnesium, S 2.2 1.7 - 2.3 12/09/2020 DTL mg/dL 8:00 AM CDT Specimen Anatomical Collection Method Collection Time Receive d Time (Source) Location / / Volume Laterality Blood (Blood, 12/09/2020 7:13 AM 12/10/19 7:21 Venous) CDT AM CDT Nova ZamoraB.S. LAB BLOOD ADD-ON Performing Organization Address City/[facility] Phon e Number [facility] - [address] Carbohydrate Antigen 19-9 (CA 19-9) (12/09/2020 7:13 AM CDT) athologist Signature Carbohydrate Ag 34 <35 U/mL 12/09/2020 [facility] 19-9, S 1:09 PM CDT Comment: ----ADDITIONAL INFORMATION---- The testing method is an immunoenzymatic assay manufactured by [employer]. and performed on the [employer] DxI 800. ? Values obtained with different assay met hods or kits may be different and cannot be used inte rchangeably. ? Test results cannot be interpreted as ab solute evidence for the presence or absence of malignant disease. Specimen Anatomical Collection Method Collection Time Receive d Time (Source) Location / / Volume Laterality Blood (Blood, 12/09/2020 7:13 AM 12/10/19 21 Venous) CDT 12:10 PM CDT Nova ZamoraB.S. LAB BLOOD ADD-ON Performing Organization Address City/[facility] Phon e Number [facility] [address] [place], [place] [address] [facility] [place] [address] Laboratory Medicine and Pathology [address] [place] Bilirubin, Direct (11/24/2020 8:32 AM CDT) athologist Signature Bilirubin, <0.2 0.0 - 0.3 11/24/2020 DTL Direct, S mg/dL 10:11 AM CDT Specimen Anatomical Collection Method Collection Time Receive d Time (Source) Location / / Volume Laterality Blood (Blood, 11/24/2020 8:32 AM 11/25/19 21 9:03 Venous) CDT AM CDT Nova ZamoraB.S. LAB BLOOD ADD-ON Performing Organization Address City/[facility] Phon e Number [facility] - [address] [place], [place] [address] [facility] [place] [address] Laboratories-[facility] [address] (ABNORMAL) Comprehensive [...] 11/24/2020 DTL Black/ mL/min/BSA 9:22 AM CDT Prydeinig Comment: ----ADDITIONAL INFORMATION---- Estimated GFR calculated using [...] 11/25/19 8:41 Venous) CDT AM CDT Nova Allen LAB BLOOD ADD-ON Performing Organization Address City/State/ZIP Code Phon e Number [facility] - 200 [place], [place] [address] [facility] [place] [address] Laboratories-[facility] 200 [facility] (ABNORMAL) CBC with Differential, Blood (11/24/2020 8:32 AM CDT) [facility] Method Time Signature Hemoglobin 9.7 (L) 11.6 [...] 11/25/19 8:50 Venous) CDT AM CDT Nova ZamoraB.S. LAB BLOOD ADD-ON Performing Organization Address City/State/ZIP Code Phon e Number [facility] - [address] [place], [place] [address] [facility] [place] [address] [facility] [address] [facility] Magnesium (11/24/2020 8:32 AM CDT) P athologist Signature Magnesium, S 2.1 1.7 - 2.3 11/24/2020 DTL mg/dL 9:22 AM CDT Specimen Anatomical Collection Method Collection Time Receive d Time (Source) Location / / Volume Laterality Blood (Blood, 11/24/2020 8:32 AM 11/25/19 8:41 Venous) CDT AM CDT Nova ZamoraB.S. LAB BLOOD ADD-ON Performing Organization Address City/State/ZIP Code Phon e Number [facility] - [address] [place], [place] [address] [place] [address] [place] [address] [place] [address] [facility] Bilirubin, Direct (11/10/2020 6:29 AM CDT) P athologist Signature Bilirubin, <0.2 0.0 - 0.3 11/10/2020 DTL Direct, S mg/dL 7:17 AM CDT Specimen Anatomical Collection Method Collection Time Receive d Time (Source) Location / / Volume Laterality Blood (Blood, 11/10/2020 6:29 AM 11/11/19 6:41 Venous) CDT AM CDT Nova ZamoraB.S. LAB BLOOD ADD-ON Performing Organization Address City/State/ZIP Code Phon e Number [facility] - [address] [place], [place] [address] [facility] [place] [address] Laboratories-[facility] [address] (ABNORMAL) Comprehensive Metabolic Panel (11/10/2020 6:29 AM CDT) P athologist Signature Potassium, S 4.1 3.6 - [...] 11/10/2020 DTL Black/ mL/min/BSA 7:18 AM CDT Prydeinig Comment: ----ADDITIONAL INFORMATION---- Estimated GFR calculated using [...] 11/11/19 6:40 Venous) CDT AM CDT Nova ZamoraB.S. LAB BLOOD ADD-ON Performing Organization Address City/[facility] Phon e Number [facility] - 200 [place], [place] [address] [place] [address] [place] [address] Laboratories-[address] Magnesium (11/10/2020 6:29 AM CDT) P athologist Signature Magnesium, S 2.0 1.7 - 2.3 11/10/2020 DTL mg/dL 7:18 AM CDT Specimen Anatomical Collection Method Collection Time Receive d Time (Source) Location / / Volume Laterality Blood (Blood, 11/10/2020 6:29 AM 11/11/19 6:40 Venous) CDT AM CDT Nova ZamoraB.S. LAB BLOOD ADD-ON Performing Organization Address City/[facility] Phon e Number [facility] - 200 [place], [place] [address] 05 [place] [address] [facility]-[address] (ABNORMAL) Carbohydrate Antigen 19-9 (CA 19-9) (11/10/2020 6:29 AM CDT) Analysis Performed At Patho logist Time Signature Carbohydrate Ag 42 (H) <35 U/mL 11/10/2020 [facility] 19-9, S 9:55 AM CDT Comment: ----ADDITIONAL INFORMATION---- The testing method is an immunoenzymatic assay manufactured by [employer] and performed on the [employer] 800. ? Values obtained with different assay [...] 21 8:59 Venous) CDT AM CDT Nova Allen LAB BLOOD ADD-ON Performing Organization Address City/State/ZIP Code Phon e Number [facility] [address] [place], [place] [address] [facility] [place] [address] Laboratory Medicine and Pathology [address] [place] (ABNORMAL) CBC with Differential, Blood (11/10/2020 6:28 AM CDT) [facility] gist Method Time Signature Hemoglobin 9.7 (L) [...] Laterality Blood (Blood, 11/10/2020 6:28 AM 11/11/19 6:41 Venous) CDT AM CDT Nova ZamoraB.S. LAB BLOOD ADD-ON Performing Organization Address [facility] Phon e Number [facility] - [address] [place] [address] Bilirubin, Direct (10/28/2020 6:53 AM CDT) athologist Signature Bilirubin, <0.2 0.0 - 0.3 10/28/2020 DTL Direct, S mg/dL 7:42 AM CDT Specimen Anatomical Collection Method Collection Time Receive d Time (Source) Location / / Volume Laterality Blood (Blood, 10/28/2020 6:53 AM 10/29/19 21 7:05 Venous) CDT AM CDT Nova ZamoraB.S. LAB BLOOD ADD-ON Performing Organization Address [facility] Phon e Number [facility] - [address] [place] [address] (ABNORMAL) Comprehensive Metabolic Panel (10/28/2020 6:53 AM CDT) P athologist Signature Potassium, S 4.1 3.6 - [...] 10/28/2020 DTL Black/ mL/min/BSA 7:41 AM CDT Prydeinig Comment: ----ADDITIONAL INFORMATION---- Estimated GFR calculated using [...] 10/29/19 7:05 Venous) CDT AM CDT Nova ZamoraBChicoS. LAB BLOOD ADD-ON Performing Organization Address City/State/ZIP Code Phon e Number [facility] - [address] [place] [address] 05 [place] [address] Laboratories-[facility] 200 [facility] (ABNORMAL) CBC with Differential, Blood (10/28/2020 6:53 AM CDT) [facility] Method Time Signature Hemoglobin 9.6 (L) 11.6 [...] Laterality Blood (Blood, 10/28/2020 6:53 AM 10/29/19 7:06 Venous) CDT AM CDT Nova ZamoraBChicoS. LAB BLOOD ADD-ON Performing Organization Address City/[facility]/ZIP Code Phon e Number [facility] - [address] [address] Laboratories-[address] Magnesium (10/28/2020 6:53 AM CDT) P athologist Signature Magnesium, S 2.2 1.7 - 2.3 10/28/2020 DTL mg/dL 7:41 AM CDT Specimen Anatomical Collection Method Collection Time Receive d Time (Source) Location / / Volume Laterality Blood (Blood, 10/28/2020 6:53 AM 10/29/19 7:05 Venous) CDT AM CDT Nova McnealS. LAB BLOOD ADD-ON Performing Organization Address City/[facility] Code Phon e Number [facility] - [address] [address] Laboratories-[address] documented in this encounter Visit Diagnoses Diagnosis Malignant Neoplasm Of Pancreas Adenocarc inoma (HCC) - Primary Secondary Malignant Neoplasm Lymph Node (HCC) Steatorrhea Neutropenia Chemotherapy Induced (HCC) documented in this encounter
--- OUTSIDE RECORDS SUMMARY | 2021-11-03 07:06 | XMS_ITS | Encounter Summary ---
:1940 Author Organization [facility] Address [address] [place] [id number] Care Team Providers Name Role Phone Unavailable Primary Care Provider Unavailable Reason for Visit Episode Based Medications (Routine) - Authorized Specialty Diagnoses / Procedures Referred By Contact Refer red To Contact Diagnoses Malignant Neoplasm Of Pancreas Adenocarcinoma (HCC) Neutropenia Chemotherapy Induced (HCC) Kimberly Rios, Rsmarleen Onc Coy HIGH C.N.P., M.S. [address] [place] [address] [address] [place] [phone] Referral ID Status Reason Start Date Expiration Date Visits V isits Requested Authorized [id number] Authorized 06/03/2020 06/03/2021 99 99 Encounter Details Date Type Department Care Team Description 09/14/2020 Lab Department of Infusion Nova Vivar [facility]ig [facility] [place] [address] [place] [address] (HCC) (Primary Dx) [address] [place] [phone] Social History Tobacco Use Types Packs/Day Years [...] More than 4 times per year 06/19/2021 anabaptist services? Do you belong to any clubs or [employer] 06/19/2021 organizations such as jainism groups, unions, [...] slept in a care home (including now)? Sex Assigned at Date Recorded Female 07/03/2017 2:07 PM CDT documented as of this encounter Plan of Treatment Upcoming Encounters Date Type Specialty Care Team Description 11/19/2021 Clinical Communication Admitting/Central Scheduling 11/23/2021 Comprehensive Visit Neurology Kenji Zaldivar M.D. [address] [place] [address] documented as of this encounter Procedures Procedure Name Priority Date/Time Associated Diagnosis Comme nts CBC WITH Routine 09/14/2020 8:34 Malignant Neoplasm Of Res ults for this DIFFERENTIAL, B AM CDT Pancreas procedure ar e in Adenocarcinoma (HCC) the res ults section. CARBOHYDRATE AG 19-9 Routine 09/14/2020 8:33 Malignant Neoplas m Of Results for this (CA 19-9), S AM CDT Pancreas procedure are i n Adenocarcinoma (HCC) the res ults section. MAGNESIUM, S Routine 09/14/2020 8:33 Malignant Neoplasm Of Res ults for this AM CDT Pancreas procedure are i n Adenocarcinoma (HCC) the res ults section. BILIRUBIN DIRECT, S/P Routine 09/14/2020 8:33 Malignant Neopla sm Of Results for this AM CDT Pancreas procedure are i n Adenocarcinoma (HCC) the res ults section. COMPREHENSIVE Routine 09/14/2020 8:33 Malignant Neoplasm Of Re sults for this METABOLIC PANEL, S/P AM CDT Pancreas procedu re are in Adenocarcinoma (HCC) the res ults section. documented in this encounter Results (ABNORMAL) CBC with Differential, Blood (09/14/2020 8:34 AM CDT) [facility] gist Method Time Signature Hemoglobin 9.7 (L) 11.6 - 09/14/2020 DTL 15.0 g/dL 9:49 AM CDT Hematocrit 29.9 (L) 35.5 - 09/14/2020 DTL 44.9 % 9:49 AM CDT Erythrocytes 2.87 (L) 3.92 - 09/14/2020 DTL 5.13 9:49 AM CDT x10(12)/L MCV 104.2 (H) 78.2 - 09/14/2020 DTL 97.9 fL 9:49 AM CDT RBC Distrib Width 15.4 12.2 - 09/14/2020 DTL 16.1 % 9:49 AM CDT Platelet Count 178 157 - 371 09/14/2020 DTL x10(9)/L 9:49 AM CDT Leukocytes 3.5 3.4 - 9.6 09/14/2020 DTL x10(9)/L 9:49 AM CDT Neutrophils 2.63 1.56 - 09/14/2020 DTL 6.45 9:49 AM CDT x10(9)/L Lymphocytes 0.43 (L) 0.95 - 09/14/2020 DTL 3.07 9:49 AM CDT x10(9)/L Monocytes 0.42 0.26 - 09/14/2020 DTL 0.81 9:49 AM CDT x10(9)/L Eosinophils 0.04 0.03 - 09/14/2020 DTL 0.48 9:49 AM CDT x10(9)/L Basophils <0.03 0.01 - 09/14/2020 DTL 0.08 9:49 AM CDT x10(9)/L Specimen Anatomical Collection Method Collection Time Receive d Time (Source) Location / / Volume Laterality Blood (Blood, 09/14/2020 8:34 AM 09/15/19 9:13 Venous) CDT AM CDT Nova ZamoraB.S. LAB BLOOD ADD-ON Performing Organization Address [facility] Phon e Number [facility] - 200 [place], [place] [address] [facility] [place] [address] Laboratories-[address] Bilirubin, Direct (09/14/2020 8:33 AM CDT) athologist Signature Bilirubin, <0.2 0.0 - 0.3 09/14/2020 DTL Direct, S mg/dL 10:21 AM CDT Specimen Anatomical Collection Method Collection Time Receive d Time (Source) Location / / Volume Laterality Blood (Blood, 09/14/2020 8:33 AM 09/15/19 8:55 Venous) CDT AM CDT Nova ZamoraB.S. LAB BLOOD ADD-ON Performing Organization Address City/[facility] Phon e Number [facility] - [address] [place] [address] [place] [id number] [place] [address] (ABNORMAL) Comprehensive Metabolic Panel (09/14/2020 8:33 AM CDT) athologist Signature Potassium, S 4.0 3.6 - 5.2 09/14/2020 DTL mmol/L 10:22 AM CDT Sodium, S 144 135 - 145 09/14/2020 DTL mmol/L 10:22 AM CDT Chloride, S 105 98 - 107 09/14/2020 DTL mmol/L 10:22 AM CDT Bicarbonate, S 30 (H) 22 - 29 09/14/2020 DTL mmol/L 10:22 AM CDT Anion Gap 9 7 - 15 09/14/2020 DTL 10:22 AM CDT BUN (Blood Urea 12 6 - 21 09/14/2020 DTL Nitrogen), S mg/dL 10:22 AM CDT Creatinine, S 0.84 0.59 - 09/14/2020 DTL 1.04 mg/dL 10:22 AM CDT eGFR-Non 67 >=60 09/14/2020 DTL Black/ mL/min/BSA 10:22 AM CDT Ethiopian Comment: ----ADDITIONAL INFORMATION---- Estimated GFR calculated using the 2009 CKD_EPI creatinine equation. eGFR-Black/ 77 >=60 mL/min/BSA 2020 10:22 AM CDT DTL Comment: ----ADDITIONAL INFORMATION---- Estimated GFR calculated using the 2009 CKD_EPI creatinine equation. Calcium, Total, S 9.7 8.8 - 10.2 mg/dL 09/14/2020 10:2 2 AM CDT DTL Glucose, S 109 70 - 140 mg/dL 09/14/2020 10:22 AM CDT DTL Protein, Total, S 6.1 (L) 6.3 - 7.9 g/dL 09/14/2020 10:22 AM CDT DTL Albumin, S 4.4 3.5 - 5.0 g/dL 09/14/2020 10:22 AM CDT DTL Aspartate Aminotransferase 18 8 - 43 U/L 09/14/2020 1 0:22 AM CDT DTL (AST), S Alkaline Phosphatase, S 61 35 - 104 U/L 09/14/2020 10 :22 AM CDT DTL Alanine Aminotransferase 12 7 - 45 U/L 09/14/2020 10: 22 AM CDT DTL (ALT), S Bilirubin, Total, S <0.2 <=1.2 mg/dL 09/14/2020 10:22 A M CDT DTL Specimen Anatomical Collection Method Collection Time Receive d Time (Source) Location / / Volume Laterality Blood (Blood, 09/14/2020 8:33 AM 09/15/19 8:55 Venous) CDT AM CDT Nova ZamoraB.S. LAB BLOOD ADD-ON Performing Organization Address City/State/ZIP Code Phon e Number [facility] - [address] [place], [place] [address] [facility] [place] [address] Laboratories-[facility] [address] Magnesium (09/14/2020 8:33 AM CDT) P athologist Signature Magnesium, S 2.1 1.7 - 2.3 09/14/2020 DTL mg/dL 10:22 AM CDT Specimen Anatomical Collection Method Collection Time Receive d Time (Source) Location / / Volume Laterality Blood (Blood, 09/14/2020 8:33 AM 09/15/19 8:55 Venous) CDT AM CDT Nova Zam[place] LAB BLOOD ADD-ON Performing Organization Address City/[facility] Code Phon e Number [facility] - [address] [place], [place] [address] [facility] [address] Laboratories-[facility] [address] (ABNORMAL) Carbohydrate Antigen 19-9 (CA 19-9) (09/14/2020 8:33 AM CDT) Analysis Performed At Patho logist Time Signature Carbohydrate Ag 57 (H) <35 U/mL 09/14/2020 [facility] 19-9, S 1:47 PM CDT Comment: ----ADDITIONAL INFORMATION---- The testing method is an immunoenzymatic assay manufactured by [employer] and performed on the [employer] DxI 800. ? Values obtained with different assay met hods or kits may be different and cannot be used inte rchangeably. ? Test results cannot be interpreted as ab solute evidence for the presence or absence of malignant disease. Specimen Anatomical Collection Method Collection Time Receive d Time (Source) Location / / Volume Laterality Blood (Blood, 09/14/2020 8:33 AM 09/15/19 Venous) CDT 12:55 PM CDT Nova ZamoraB.S. LAB BLOOD ADD-ON Performing Organization Address City/[facility]/ZIP [facility] Phon e Number [facility] [address] [place], [place] [address] [facility] [place] [address] Laboratory Medicine and Pathology [address] [place] documented in this encounter Visit Diagnoses Diagnosis Malignant Neoplasm Of Pancreas Adenocarc inoma (HCC) - Primary documented in this encounter Administered Medications Inactive Administered Medications - up to 3 most recent administrations Medication Order MAR Action Action Date Dose Rate Site heparin flush 500 Units Given 09/14/2020 8:37 AM CDT 500 Units 500 Units, intra-catheter, As needed, line care, Starting on Mon09/14/20 at 0837, When no infusion to maintain patency: For IVAD accessed, not in use, and/or prior to hospital discharge, flush every 7 days after 0.9% preservative-free NaCL flush. For IVAD NOT accessed or used, flush every 4 weeks after 0.9% preservative-free NaCL flush. sodium chloride 0.9 % injection 10 mL Given 09/14/2020 8:37 AM CDT 10 mL 10 mL, intra-catheter, As needed, line care, Starting on Mon09/14/20 at 0837, When IVAD Accessed and in Use: Flush prior to and following infusion, between multiple consecutive infusions, and prior to blood sampling. sodium chloride 0.9 % injection 20 mL Given 09/14/2020 8:37 AM CDT 20 mL 20 mL, intra-catheter, As needed, line care, Starting on Mon09/14/20 at 0837, When IVAD Accessed and in Use: Flush post blood transfusion or post blood sampling. documented in this encounter
--- OUTSIDE RECORDS SUMMARY | 2021-11-03 07:06 | XMS_ITS | Encounter Summary ---
:1940 Author Organization [facility] Address [address] [place] [address] Care Team Providers Name Role Phone Unavailable Primary Care Provider Unavailable Reason for Visit Reason Comments Treatment pump disconnect Outpatient (Routine) - Closed Specialty Diagnoses / Procedures Referred By Contact Refer red To Contact Diagnoses Malignant Neoplasm Of Pancreas Adenocarcinoma (HCC) Kimberly Rios APRN, [facility] Procedures ONC Pump Disconnect C.N.P., M.S. 200 [place] [phone] Referral ID Status Reason Start Date Expiration Date Visits Requ ested Visits Authorized [id number] Closed 09/01/2020 09/01/2021 5 5 Encounter Details Date Type Department Care Team Description 09/17/2020 Infusion Department of Infusion Kimberly Rios Ma lignant Neoplasm Of Therapy in [facility] Alan, LENNOX, C.N.P., Sigala creas Adenocarcinoma [facility]. (HCC) (Primary Dx) [address] [place] [phone] Social History Tobacco Use Types Packs/Day Years [...] Do you belong to any clubs or [employer] 06/19/2021 organizations such as gnosticist groups, unions, [employer] or athletic groups, or school groups? How [...] or slept in a halfway (including now)? Sex Assigned at Date Recorded Female 07/03/2017 2:07 PM CDT documented as of this encounter Last Filed Vital Signs Vital Sign Reading Time Taken Comments Blood Pressure 144/63 09/17/2020 12:24 PM CDT Pulse 59 09/17/2020 12:24 PM CDT Temperature 36.8 ??C (98.2 ??F) 09/17/2020 12:14 PM CDT Respiratory Rate - - Oxygen Saturation - - Inhaled Oxygen Concentration - - Weight - - Height - - Body Mass Index - - documented in this encounter Plan of Treatment Upcoming Encounters Date Type Specialty Care Team Description 11/19/2021 Clinical Communication Admitting/Central Scheduling 11/23/2021 Comprehensive Visit Neurology Kenji Zaldivar M.D. 200 [place] [phone] documented as of this encounter Visit Diagnoses Diagnosis Malignant Neoplasm Of Pancreas Adenocarc inoma (HCC) - Primary documented in this encounter Administered Medications Inactive Administered Medications - up to 3 most recent administrations Medication Order MAR Action Action Date Dose Rate Site heparin flush 500 Units Given 09/17/2020 12:24 PM CDT 500 Units 500 Units, intra-catheter, As needed, line care, Starting on Laila 09/17/20 at 1216, When no infusion to maintain patency: For IVAD accessed, not in use, and/or prior to hospital discharge, flush every 7 days after 0.9% preservative-free NaCL flush. For IVAD NOT accessed or used, flush every 4 weeks after 0.9% preservative-free NaCL flush. sodium chloride 0.9 % injection 20 mL Given 09/17/2020 12:23 PM CDT 20 mL 20 mL, intra-catheter, As needed, line care, Starting on Laila 09/17/20 at 1216, When IVAD Accessed and in Use: Flush post blood transfusion or post blood sampling. documented in this encounter
--- OUTSIDE RECORDS SUMMARY | 2021-11-03 07:06 | XMS_ITS | Encounter Summary ---
:1940 Author Organization [facility] Address [address] [place] [address] Care Team Providers Name Role Phone Unavailable Primary Care Provider Unavailable Encounter Details Date Type Department Care Team Description 10/13/2020 Clinical Communication Department of [facility] in [place], [place] [address] [place] [address] [address] [place] [phone] Social History Tobacco Use Types Packs/Day Years [...] or slept in a half-way (including now)? Sex Assigned at Date Recorded Female 07/03/2017 2:07 PM CDT documented as of this encounter Plan of Treatment Upcoming Encounters Date Type Specialty Care Team Description 11/19/2021 Clinical Communication Admitting/Central Scheduling 11/23/2021 Comprehensive Visit Neurology Kenji Zaldivar M.D. [address] [place] [address] documented as of this encounter Visit Diagnoses Not on filedocumented in this encounter
--- OUTSIDE RECORDS SUMMARY | 2021-11-03 07:06 | XMS_ITS | Encounter Summary ---
:1940 Author Organization [facility] Address [address] [place] [address] Care Team Providers Name Role Phone Unavailable Primary Care Provider Unavailable Reason for Visit Outpatient (Routine) - Closed Specialty Diagnoses / Procedures Referred By Contact Refer red To Contact Diagnoses Malignant Neoplasm Of Pancreas Adenocarcinoma (HCC) Kimberly Rios APRN, [facility] Procedures ONC Pump Disconnect C.N.P., M.S. [address] [place] [phone] Referral ID Status Reason Start Date Expiration Date Visits Requ ested Visits Authorized [id number] Closed 09/29/2020 09/29/2021 1 1 Encounter Details Date Type Department Care Team Description 10/01/2020 Infusion Department of Infusion Kimberly Rios Ma lignant Neoplasm Of Therapy in [facility], LENNOX, C.N.P., Sigala creas Adenocarcinoma [facility].S. (HCC) (Primary Dx) [address] [place] [phone] Social History Tobacco Use [...] 06/19/2021 organizations such as yarsani groups, unions, fraThingy [employer] or athletic groups, or school groups? How [...] or slept in a alf (including now)? Sex Assigned at Date Recorded Female 07/03/2017 2:07 PM CDT documented as of this encounter Plan of Treatment Upcoming Encounters Date Type Specialty Care Team Description 11/19/2021 Clinical Communication Admitting/Central Scheduling 11/23/2021 Comprehensive Visit Neurology Kenji Zaldivar M.D. [address] [place] [address] documented as of this encounter Visit Diagnoses Diagnosis Malignant Neoplasm Of Pancreas Adenocarc inoma (HCC) - Primary documented in this encounter Administered Medications Inactive Administered Medications - up to 3 most recent administrations Medication Order MAR Action Action Date Dose Rate Site heparin flush 500 Units Given 10/01/2020 11:57 AM CDT 500 Units 500 Units, intra-catheter, As needed, line care, Starting on Laila 10/01/20 at 1156, When no infusion to maintain patency: For IVAD accessed, not in use, and/or prior to hospital discharge, flush every 7 days after 0.9% preservative-free NaCL flush. For IVAD NOT accessed or used, flush every 4 weeks after 0.9% preservative-free NaCL flush. sodium chloride 0.9 % injection 20 mL Given 10/01/2020 11:57 AM CDT 20 mL 20 mL, intra-catheter, As needed, line care, Starting on Laila 10/01/20 at 1156, When IVAD Accessed and in Use: Flush post blood transfusion or post blood sampling. documented in this encounter
--- OUTSIDE RECORDS SUMMARY | 2021-11-03 07:06 | XMS_ITS | Encounter Summary ---
:1940 Author Organization [facility] Address [address] [place] [address] Care Team Providers Name Role Phone Unavailable Primary Care Provider Unavailable Reason for Visit Outpatient (Routine) - Closed Specialty Diagnoses / Procedures Referred By Contact Refer red To Contact Diagnoses Malignant Neoplasm Of Pancreas Adenocarcinoma (HCC) Kimberly Rios APRN, [facility] Procedures ONC Pump Disconnect C.N.P., M.S. [address] [place] [phone] Referral ID Status Reason Start Date Expiration Date Visits Requ ested Visits Authorized [id number] Closed 09/01/2020 09/01/2021 5 5 Encounter Details Date Type Department Care Team Description 10/15/2020 Infusion Department of Infusion Kimberly Rios Ma lignant Neoplasm Of Therapy in [facility], LENNOX, C.N.P., Sigala creas Adenocarcinoma [facility].S. (HCC) (Primary Dx) [address] [place] [phone] Social History Tobacco Use [...] clubs or Yes 06/19/2021 organizations such as rastafarian groups, unions, fra[employer] or athletic groups, or school groups? How [...] Visit Neurology Kenji Zaldivar M.D. [address] [place] [address] documented as of this encounter Visit Diagnoses Diagnosis Malignant Neoplasm Of Pancreas Adenocarc inoma (HCC) - Primary documented in this encounter Administered Medications Inactive Administered Medications - up to 3 most recent administrations Medication Order MAR Action Action Date Dose Rate Site heparin flush 500 Units Given 10/15/2020 2:35 PM CDT 500 Units 500 Units, intra-catheter, As needed, line care, Starting on Laila 10/15/20 at 1424, When no infusion to maintain patency: For IVAD accessed, not in use, and/or prior to hospital discharge, flush every 7 days after 0.9% preservative-free NaCL flush. For IVAD NOT accessed or used, flush every 4 weeks after 0.9% preservative-free NaCL flush. sodium chloride 0.9 % injection 20 mL Given 10/15/2020 2:35 PM CDT 20 mL 20 mL, intra-catheter, As needed, line care, Starting on Laila 10/15/20 at 1424, When IVAD Accessed and in Use: Flush post blood transfusion or post blood sampling. documented in this encounter
--- OUTSIDE RECORDS SUMMARY | 2021-11-03 07:06 | XMS_ITS | Encounter Summary ---
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 [address] [place] [phone] Referral ID Status Reason Start Date Expiration Date Visits Requ ested Visits Authorized [id number] Closed 09/14/2020 09/14/2021 1 1 Encounter Details Date Type Department Care Team Description 10/12/2020 Hospital Encounter Department of Vi Rios Neoplasm Of Pancreas Adenocarcinoma (HCC); Radiology, Cristian Phillips, [employer]UL[employer], Secondary Malignant Neoplasm Lymph Node (HCC) Building, in C.N.P., M.S. [place], 200 [place], [place] 200 [facility] [address] [place], [place] [phone] (Work) [phone] Social History Tobacco Use Types Packs/Day Years [...] or slept in a fci (including now)? Sex Assigned at Date Recorded Female 07/03/2017 2:07 PM CDT documented as of this encounter Last Filed Vital Signs Vital Sign Reading Time Taken Comments Blood Pressure - - Pulse - - Temperature - - Respiratory Rate - - Oxygen Saturation - - Inhaled Oxygen Concentration - - Weight 51.3 kg (113 lb) 10/12/2020 7:09 AM CDT Height - - Body Mass Index 18.74 08/17/2020 10:11 AM CDT documented in this encounter Medications at Time of Discharge Medication Sig Dispensed Refills Start Date End Date aaumage-B1-rkvq-copper-m Take by mouth. 0 021 angan (Citracal-D3 Taking 3-4 daily Maximum Plus) 325 mg-12.5 mcg -2.75 mg tablet ESTRIOL MICRONIZED, Three Times Weekly 0 03/17/20 20 BULK, MISC levothyroxine 0 09/12/2020 (SYNTHROID, LEVOTHROID) 75 mcg tablet lidocaine-prilocaine Apply 1 application 30 g 0 2020 (EMLA) 2.5-2.5 % cream topically as needed for pain (30 minutes prior to port access). magnesium oxide (MAG-OX) Take 400 mg by 0 400 mg (241.3 mg mouth. Taking 4 magnesium) tablet tablets daily ondansetron (ZOFRAN) 8 [...] daily. dexAMETHasone (DECADRON) TAKE 2 TABLETS BY 6 tablet 3 05/202010/14/2020 4 mg tabletIndications: MOUTH DAILY. 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 (HCC) wrlijm-cyfdvcgo-fmxnjnb Take 1 capsule by 180 capsule 3 07/2510/15/2020 (CREON) mouth 3 (three) 24,000-76,000-120,000 times a day with Unit per DR capsule meals. lisinopriL Take 20 mg by 0 04/10/2020 09/24/2021 (PRINIVIL,ZESTRIL) 20 mg mouth. tablet loperamide (IMODIUM A-D) TAKE 2 CAPS AT 24 capsule 3 021 12/01/2020 2 mg capsuleIndications: ONSET OF DIARRHEA, Malignant Neoplasm Of THEN 1 CAP EVERY Pancreas (HCC) 2HRS UNTIL DIARRHEA FREE FOR 12HRS. MAY TAKE 2 CAPS EVERY 4HRS AT NIGHT LORazepam (ATIVAN) 0.5 Take 1 tablet (0.5 [...] documented as of this encounter Nursing Notes Vivian Smyth R.N. - 10/12/2020 7:30 AM CDT IVAD Contrast Injection Assessment Details: What type of IVAD? Power Port If power???What identifiers were used (2 needed or Rad approval)? [place] or Outside medical record (Date 06/05/2020) and 3 Bumps on [place] Shape Septum Tip placement verified? Yes Location: SVC/RA Date (if applicable): June 05, 2020 Blood return verified? Yes VAPP Orders (Nurse to use Saline or Heparin post scan): Saline and Heparin Is patient staying accessed after scan? Yes documented in this encounter Plan of Treatment Upcoming Encounters Date Type Specialty Care Team Description 11/19/2021 Clinical Communication Admitting/Central Scheduling 11/23/2021 Comprehensive Visit Neurology Kenji Zaldivar M.D. [address] [place] [address] documented as of this encounter Procedures Procedure Name Priority Date/Time Associated Diagnosis Comme nts CT ABDOMEN RAD - Routine 10/12/2020 8:18 Malignant Neoplasm Of Re sults for PELVIS WITH IV (most inpatients AM CDT Pancreas this proc edure CONTRAST and all Adenocarcinoma ( HCC) are in the outpatients) Secondary Malignant results Neoplasm Lymph Node section. (HCC) CT CHEST WITH IV RAD - Routine 10/12/2020 8:18 Malignant Neoplasm O f Results for CONTRAST (most inpatients AM CDT Pancreas this proced ure and all Adenocarcinoma ( HCC) are in the outpatients) Secondary Malignant results Neoplasm Lymph Node section. (HCC) documented in this encounter Results CT Chest with IV Contrast (10/12/2020 8:18 AM CDT) Anatomical Region Laterality Modality Chest, Thoracic RST LOS, Thoracic ARZ N/A Co mputed Tomography, Computed LOS, Thoracic ARZ LOS, Thoracic FLA Ag graphy LOS Specimen (Source) Anatomical Collection Method Collection Time Re ceived Time Location / / Volume Laterality 10/12/2020 9:11 AM CDT Impressions 10/12/2020 9:26 AM CDT 1. New indeterminate 3 mm nodule in the right lower lobe. 2. Other pulmonary nodules are stable si nce 07/31/2020. Narrative 10/12/2020 9:26 AM CDT EXAM: CT CHEST WITH IV CONTRAST COMPARISON: CT chest 07/31/2020. FINDINGS: New 3 mm nodule in the right lower lobe (3/271). Unchanged 3 mm nodule in the posterior right middle lobe (3/342) and small nodule along the major fissure (3/309). A 4 mm nodule in the posterior right upper lobe (3/155) is also unchanged. Stable to slightly increased tiny nodule in the left upper lobe (3/211), too small to quantify. Unchange d 5 mm nodule in the left lower lobe (3/466). Central bronchiectasis. Stable 11 mm rig ht hilar lymph node. Small pericardial effusion is unchanged. Coronary artery c alcification. Fat-containing left Bochdalek hernia. Degenerative changes i n the spine. This examination was performed in conjun ction with a CT of the abdomen, which will be reported separately. 3D maximum intensity projection (MIP) im ages were created on a dependent workstation as ordered by the treating gloria faustin and reviewed by the radiologist to increase sensitivity for detection of pulmonary nodules. Procedure Note Yung Rodarte M.D. - 10/12/2020Formatt ing of this note might be different from the original. EXAM: CT CHEST WITH IV CONTRAST COMPARISON: CT chest 07/31/2020. FINDINGS: New 3 mm nodule in the right lower lobe (3/271). Unchanged 3 mm nodule in the posterior right middle lobe (3/342) and small nodule along the major fissure (3/309). A 4 mm nodule in the posterior right upper lobe (3/155) is also unchanged. Stable to slightly increased tiny nodule in the left upper lobe (3/211), too small to quantify. Unchange d 5 mm nodule in the left lower lobe (3/466). Central bronchiectasis. Stable 11 mm rig ht hilar lymph node. Small pericardial effusion is unchanged. Coronary artery c alcification. Fat-containing left Bochdalek hernia. Degenerative changes i n the spine. This examination was performed in conjun ction with a CT of the abdomen, which will be reported separately. 3D maximum intensity projection (MIP) im ages were created on a dependent workstation as ordered by the treating p rovider and reviewed by the radiologist to increase sensitivity for detection of pulmonary nodules. IMPRESSION: 1. New indeterminate 3 mm nodule in the right lower lobe. 2. Other pulmonary nodules are stable si nce 07/31/2020. Kimberly Rios APRN, C.N.P., M.S. IMG CT PROCEDURES CT Abdomen Pelvis with IV Contrast (10/12/2020 8:18 AM CDT) Anatomical Region Laterality Modality Abdomen, Pelvis, Abdominal RST LOS, N/A Comp uted Tomography, Computed Abdominal ARZ LOS, Abdominal FLA LOS Dustin ography Specimen (Source) Anatomical Collection Method Collection Time Re ceived Time Location / / Volume Laterality 10/12/2020 1:53 PM CDT Impressions 10/12/2020 2:25 PM CDT 1. Stable primary pancreatic head neoplasm with interval decrease of aortocaval adenopathy. No new adenopathy. 2. Interval decrease of the celiac/SMA a nd IVC soft tissue stranding when compared with prior CT of 05/20/2020 but stable when compared with immediate CT of 07/31/2020. 3. Other incidental findings remain stab le. No new hepatic metastatic disease. 4. This examination was performed in con junction with a CT of the chest, which will be reported separately. Narrative 10/12/2020 2:25 PM CDT EXAM: ??CT ABDOMEN PELVIS WITH IV CONTRAST COMPARISON: ??Prior CT 07/31/2020 and 05/20 FINDINGS: ??The liver is of normal size and morphology again demonstrates stable tiny hypodense lesion right hepatic dome (S4, image 69) likely tiny cyst. No new lesions seen. No significant intrahepati c ductal dilatation. Intrahepatic vasculature remains patent. The gallbladder, spleen, adrenal glands are within normal limits. Both kidneys enhance uniformly and symmetrically with stable bilateral renal cysts. The bladder is distended and within normal l imits. The uterus again demonstrates several large collateral vessels, overal l unchanged. The GI tract is within normal limits. There is an exophytic pancreatic head ma ss that measures 1.4 x 1 cm (S3, image 193). It previously measured 1.5 x 0.9 c m. Persistent decrease in enhancement seen within this lesion. Mild upstream p ancreatic ductal dilatation seen, unchanged from prior. 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 Interval decrease of aortocaval lymph no de (S4, image 168). No new adenopathy. Previously seen peripancreatic and retro peritoneal lymph nodes and stranding appears relatively unchanged. Especially the soft tissue stranding around the celiac axis, SMA, splenic artery and pro ximal superior mesenteric artery. However it appears improved compared wit h the prior CT of 05/20/2020. Stranding around the IVC is improved. The abdominal aorta is of normal caliber with minimal scattered calcification and patent major branch vessels. 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 Review of bone windows demonstrate moderate degenerative changes of lower lumbar vertebrae withou t destructive lesions. Procedure Note Misbah Escudero M.B.B.S., M.Tuan. - 1 EXAM: CT ABDOMEN PELVIS WITH IV CONTRAST COMPARISON: Prior CT 07/31/2020 and 021 FINDINGS: The liver is of normal size an d morphology again demonstrates stable tiny hypodense lesion right hepatic dome (S4, image 69) likely tiny cyst. No new lesions seen. No significant intrahepati c ductal dilatation. Intrahepatic vasculature remains patent. The gallbladder, spleen, adrenal glands are within normal limits. Both kidneys enhance uniformly and symmetrically with stable bilateral renal cysts. The bladder is distended and within normal l imits. The uterus again demonstrates several large collateral vessels, overal l unchanged. The GI tract is within normal limits. There is an exophytic pancreatic head ma ss that measures 1.4 x 1 cm (S3, image 193). It previously measured 1.5 x 0.9 c m. Persistent decrease in enhancement seen within this lesion. Mild upstream p ancreatic ductal dilatation seen, unchanged from prior. 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 Interval decrease of aortocaval lymph no de (S4, image 168). No new adenopathy. Previously seen peripancreatic and retro peritoneal lymph nodes and stranding appears relatively unchanged. Especially the soft tissue stranding around the celiac axis, SMA, splenic artery and pro ximal superior mesenteric artery. However it appears improved compared wit h the prior CT of 05/20/2020. Stranding around the IVC is improved. The abdominal aorta is of normal caliber with minimal scattered calcification and patent major branch vessels. 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 Review of bone windows demonstrate moderate degenerative changes of lower lumbar vertebrae withou t destructive lesions. IMPRESSION: 1. Stable primary pancreatic head neopla sm with interval decrease of aortocaval adenopathy. No new adenopathy. 2. Interval decrease of the celiac/SMA a nd IVC soft tissue stranding when compared with prior CT of 05/20/2020 but stable when compared with immediate CT of 07/31/2020. 3. Other incidental findings remain stab le. No new hepatic metastatic disease. 4. This examination was performed in con junction with a CT of the chest, which will be reported separately. Kimberly Rios APRN C.N.P., M.S. IMG CT PROCEDURES documented in this encounter Visit Diagnoses Diagnosis Malignant Neoplasm Of Pancreas Adenocarc inoma (HCC) Secondary Malignant Neoplasm Lymph Node (HCC) documented in this encounter Administered Medications Inactive Administered Medications - up to 3 most recent administrations Medication Order MAR Action Action Date Dose Rate Site heparin flush 500 Units Given 10/12/2020 8:21 AM CDT 500 Units 500 Units, intra-catheter, During hospitalization, line care, Prior to discharge, Starting on Mon10/12/20 at 0709, For 1 dose, Implanted Vascular Access Device (IVAD) Venous Non-Valved: Following saline flush prior to discharge. iohexoL 300 mg iodine/mL solution 1-200 mL Given 10/12/2020 8:05 AM CDT 100 mL (OMNIPAQUE) 1-200 mL, intravenous, Once in imaging, contrast, Starting on Mon10/12/20 at 0655, For 1 dose, Imaging Protocol Orders, Dose per Radiant Medication Guidelines sodium chloride (PF) 0.9 % injection 1-1 00 mL Given 10/12/2020 8:06 AM CDT 45 mL 1-100 mL, intravenous, Once, On Mon10/12/20 at 0700, For 1 dose, Imaging Protocol Orders sodium chloride 0.9 % injection 10 mL Given 10/12/2020 8:21 AM CDT 10 mL 10 mL, intravenous, During hospitalization, line care, Prior to discharge, Starting on Mon10/12/20 at 0709, For 1 dose, Implanted Vascular Access Device (IVAD) Venous Non-Valved: Followed by heparin flush prior to discharge. documented in this encounter
--- OUTSIDE RECORDS SUMMARY | 2021-11-03 07:06 | XMS_ITS | Encounter Summary ---
:1940 Author Organization [facility] Address [address] [place] [id number] Care Team Providers Name Role Phone Unavailable Primary Care Provider Unavailable Reason for Visit Episode Based Medications (Routine) - Authorized Specialty Diagnoses / Procedures Referred By Contact Refer red To Contact Diagnoses Malignant Neoplasm Of Pancreas Adenocarcinoma (HCC) Neutropenia Chemotherapy Induced (HCC) Kimberly Rios, Rsmarleen Onc Coy HIGH C.N.P., M.S. [address] [place] [address] [place] [address] [phone] Referral ID Status Reason Start Date Expiration Date Visits V isits Requested Authorized [id number] Authorized 06/03/2020 06/03/2021 99 99 Encounter Details Date Type Department Care Team Description 09/29/2020 Lab Department of Laboratory [facility] Vivar Mal ignant Neoplasm Of Medicine and Pathology, M.B.B.S. Pancreas Adenocarcinoma [place], [place] [address] [place] [address] (HCC) (Primary Dx) [place], [place] [address] [place] [phone] [place] [phone] Social History Tobacco Use Types Packs/Day [...] or slept in a retirement (including now)? Sex Assigned at Date Recorded Female 07/03/2017 2:07 PM CDT documented as of this encounter Plan of Treatment Upcoming Encounters Date Type Specialty Care Team Description 11/19/2021 Clinical Communication Admitting/Central Scheduling 11/23/2021 Comprehensive Visit Neurology Kenji Zaldivar M.D. [address] [place] [address] documented as of this encounter Procedures Procedure Name Priority Date/Time Associated Diagnosis Comme nts CBC WITH Routine 09/29/2020 6:48 Malignant Neoplasm Of Res ults for this DIFFERENTIAL, B AM CDT Pancreas procedure ar e in Adenocarcinoma (HCC) the res ults section. MAGNESIUM, S Routine 09/29/2020 6:48 Malignant Neoplasm Of Res ults for this AM CDT Pancreas procedure are i n Adenocarcinoma (HCC) the res ults section. BILIRUBIN DIRECT, S/P Routine 09/29/2020 6:48 Malignant Neopla sm Of Results for this AM CDT Pancreas procedure are i n Adenocarcinoma (HCC) the res ults section. COMPREHENSIVE Routine 09/29/2020 6:48 Malignant Neoplasm Of Re sults for this METABOLIC PANEL, S/P AM CDT Pancreas procedu re are in Adenocarcinoma (HCC) the res ults section. documented in this encounter Results Bilirubin, Direct (09/29/2020 6:48 AM CDT) athologist Signature Bilirubin, <0.2 0.0 - 0.3 09/29/2020 DTL Direct, S mg/dL 7:47 AM CDT Specimen Anatomical Collection Method Collection Time Receive d Time (Source) Location / / Volume Laterality Blood (Blood, 09/29/2020 6:48 AM 09/30/19 7:19 Venous) CDT AM CDT [facility] BLOOD ADD-ON Performing Organization Address City/State/[facility] Code Phon e Number [facility] - [address] [place] [address] [phone] [facility] [place] [address] Laboratories-[facility] [address] [facility] (ABNORMAL) Comprehensive Metabolic Panel (09/29/2020 6:48 AM CDT) athologist Signature Potassium, S 4.0 3.6 - 5.2 09/29/2020 DTL mmol/L 7:41 AM CDT Sodium, S 144 135 - 145 09/29/2020 DTL mmol/L 7:41 AM CDT Chloride, S 106 98 - 107 09/29/2020 DTL mmol/L 7:41 AM CDT Bicarbonate, S 29 22 - 29 09/29/2020 DTL mmol/L 7:41 AM CDT Anion Gap 9 7 - 15 09/29/2020 DTL 7:41 AM CDT BUN (Blood Urea 14 6 - 21 09/29/2020 DTL Nitrogen), S mg/dL 7:41 AM CDT Creatinine, S 0.89 0.59 - 1.04 09/29/2020 DTL mg/dL 7:41 AM CDT eGFR-Non 62 >=60 09/29/2020 DTL Black/ mL/min/BSA 7:41 AM CDT [place] Comment: ----ADDITIONAL INFORMATION---- Estimated GFR calculated using the 2009 CKD_EPI creatinine equation. eGFR-Black/ 72 >=60 mL/min/BSA 2020 7:41 AM CDT DTL Comment: ----ADDITIONAL INFORMATION---- Estimated GFR calculated using the 2009 CKD_EPI creatinine equation. Calcium, Total, S 9.4 8.8 - 10.2 mg/dL 09/29/2020 7:41 AM CDT DTL Glucose, S 100 70 - 140 mg/dL 09/29/2020 7:41 AM CDT D TL Protein, Total, S 6.1 (L) 6.3 - 7.9 g/dL 09/29/2020 7:41 A M CDT DTL Albumin, S 4.2 3.5 - 5.0 g/dL 09/29/2020 7:41 AM CDT D TL Aspartate Aminotransferase 20 8 - 43 U/L 09/29/2020 7 :41 AM CDT DTL (AST), S Alkaline Phosphatase, S 65 35 - 104 U/L 09/29/2020 7: 41 AM CDT DTL Alanine Aminotransferase 18 7 - 45 U/L 09/29/2020 7:4 1 AM CDT DTL (ALT), S Bilirubin, Total, S 0.2 <=1.2 mg/dL 09/29/2020 7:41 AM CDT DTL Specimen Anatomical Collection Method Collection Time Receive d Time (Source) Location / / Volume Laterality Blood (Blood, 09/29/2020 6:48 AM 09/30/19 7:14 Venous) CDT AM CDT [facility] BLOOD ADD-ON Performing Organization Address City/State/ZIP Code Phon e Number [facility] - [address] [place], [place] [phone] [facility] [place] [address] Laboratories-[facility] [address] (ABNORMAL) CBC with Differential, Blood (09/29/2020 6:48 AM CDT) [facility] gist Method Time Signature Hemoglobin 9.9 (L) 11.6 - 09/29/2020 DTL 15.0 g/dL 7:10 AM CDT Hematocrit 30.2 (L) 35.5 - 09/29/2020 DTL 44.9 % 7:10 AM CDT Erythrocytes 2.92 (L) 3.92 - 09/29/2020 DTL 5.13 7:10 AM CDT x10(12)/L MCV 103.4 (H) 78.2 - 09/29/2020 DTL 97.9 fL 7:10 AM CDT RBC Distrib Width 14.7 12.2 - 09/29/2020 DTL 16.1 % 7:10 AM CDT Platelet Count 188 157 - 371 09/29/2020 DTL x10(9)/L 7:10 AM CDT Leukocytes 3.9 3.4 - 9.6 09/29/2020 DTL x10(9)/L 7:10 AM CDT Neutrophils 2.65 1.56 - 09/29/2020 DTL 6.45 7:10 AM CDT x10(9)/L Lymphocytes 0.48 (L) 0.95 - 09/29/2020 DTL 3.07 7:10 AM CDT x10(9)/L Monocytes 0.67 0.26 - 09/29/2020 DTL 0.81 7:10 AM CDT x10(9)/L Eosinophils 0.03 0.03 - 09/29/2020 DTL 0.48 7:10 AM CDT x10(9)/L Basophils <0.03 0.01 - 09/29/2020 DTL 0.08 7:10 AM CDT x10(9)/L Specimen Anatomical Collection Method Collection Time Receive d Time (Source) Location / / Volume Laterality Blood (Blood, 09/29/2020 6:48 AM 09/30/19 21 7:01 Venous) CDT AM CDT [facility] BLOOD ADD-ON Performing Organization Address City/State/ZIP Code Phon e Number [facility] - [address] [place], [place] [phone] [facility] [place] [address] Laboratories-[facility] [address] [facility] Magnesium (09/29/2020 6:48 AM CDT) P athologist Signature Magnesium, S 2.2 1.7 - 2.3 09/29/2020 DTL mg/dL 7:41 AM CDT Specimen Anatomical Collection Method Collection Time Receive d Time (Source) Location / / Volume Laterality Blood (Blood, 09/29/2020 6:48 AM 09/30/19 7:14 Venous) CDT AM CDT [facility] BLOOD ADD-ON Performing Organization Address City/State/ZIP Code Phon e Number [facility] - [address] [place], [place] [address] [facility] [place] [address] Laboratories-[facility] [address] documented in this encounter Visit Diagnoses Diagnosis Malignant Neoplasm Of Pancreas Adenocarc inoma (HCC) - Primary documented in this encounter Administered Medications Inactive Administered Medications - up to 3 most recent administrations Medication Order MAR Action Action Date Dose Rate Site heparin flush 500 Units Given 09/29/2020 6:51 AM CDT 500 Units 500 Units, intra-catheter, As needed, line care, Starting on Mon09/29/20 at 0637, When no infusion to maintain patency: For IVAD accessed, not in use, and/or prior to hospital discharge, flush every 7 days after 0.9% preservative-free NaCL flush. For IVAD NOT accessed or used, flush every 4 weeks after 0.9% preservative-free NaCL flush. sodium chloride 0.9 % injection 10 mL Given 09/29/2020 6:50 AM CDT 10 mL 10 mL, intra-catheter, As needed, line care, Starting on Mon09/29/20 at 0637, When IVAD Accessed and in Use: Flush prior to and following infusion, between multiple consecutive infusions, and prior to blood sampling. sodium chloride 0.9 % injection 20 mL Given 09/29/2020 6:51 AM CDT 20 mL 20 mL, intra-catheter, As needed, line care, Starting on Mon09/29/20 at 0637, When IVAD Accessed and in Use: Flush post blood transfusion or post blood sampling. documented in this encounter
--- OUTSIDE RECORDS SUMMARY | 2021-11-03 07:06 | XMS_ITS | Encounter Summary ---
:1940 Author Organization [facility] Address [address] [place] [address] Care Team Providers Name Role Phone Unavailable Primary Care Provider Unavailable Encounter Details Date Type Department Care Team Description 10/13/2020 Clinical Communication Department of Family Elsewhere, Pcp Medicine, [facility], in [place], [place] [address] [place] [address] [facility] [phone] Social History Tobacco Use Types Packs/Day Years [...] or relatives? How often do you attend sabianism or More than 4 times per year 06/19/2021 mormon services? Do you belong to any clubs or Yes 06/19/2021 organizations such as sabianism groups, unions, fraternal or athletic groups, or [...] this encounter Miscellaneous Notes Telephone Encounter - Xi Wilde R.N. - 10/13/2020 3:28 PM CDT Please follow scheduling guidelines. Confirmed orders are in place. Telephone Encounter - Bella Pelaez - 10/13/2020 3:09 PM CDT Please advise. Bella Stacy Telephone Encounter - Rocío Sim - 10/13/2020 3:00 PM CDT Reason for Communication: Yolanda from [facility] called in to get patient scheduled for a CAD pumpdisconnect and then IVAD flush of the port and then deaccess of the port. Yolanda would like to be able to speak with a planner/scheduler yet today before 4:00. Current Can Nursing/Provider leave a detailed message: No Did the patient refuse triage through Nurse line? (for symptom based concerns): N/a Action Needed: Please call Yolanda back. Name of Medication (if relevant): N/a documented in this encounter Plan of Treatment Upcoming Encounters Date Type Specialty Care Team Description 11/19/2021 Clinical Communication Admitting/Central Scheduling 11/23/2021 Comprehensive Visit Neurology Kenji Zaldivar M.D. [address] [place] [address] documented as of this encounter Visit Diagnoses Not on filedocumented in this encounter
--- OUTSIDE RECORDS SUMMARY | 2021-11-03 07:06 | XMS_ITS | Encounter Summary ---
:1940 Author Organization [facility] Address [address] [place] [address] Care Team Providers Name Role Phone Unavailable Primary Care Provider Unavailable Reason for Referral Outpatient (Routine) - Closed Specialty Diagnoses / Procedures Referred By Contact Refer red To Contact Diagnoses Malignant Neoplasm Of Pancreas Adenocarcinoma (HCC) Kimberly Rios APRN, [facility] Procedures ONC Pump Disconnect C.N.P., M.S. [address] [place] [phone] Referral ID Status Reason Start Date Expiration Date Visits Requ ested Visits Authorized [id number] Closed 09/29/2020 09/29/2021 1 1 Reason for Visit Episode Based Medications (Routine) - Authorized Specialty Diagnoses / Procedures Referred By Contact Refer red To Contact Diagnoses Malignant Neoplasm Of Pancreas Adenocarcinoma (HCC) Neutropenia Chemotherapy Induced (HCC) Kimberly Rios, Rst Onc Trace Cespedes APRNN.P., M.S. 200 [facility] 200 [place] [phone] Referral ID Status Reason Start Date Expiration Date Visits V isits Requested Authorized [id number] Authorized 06/03/2020 06/03/2021 99 99 Encounter Details Date Type Department Care Team Description 09/29/2020 Infusion Department of Oncology Nova Vivar Malig nant Neoplasm Of in [facility] [place] Pancreas Adenocarcinoma [address] (HCC) (Primary Dx) [place] [phone] Social History Tobacco Use Types Packs/Day Years [...] or slept in a mcc (including now)? Sex Assigned at Date Recorded Female 07/03/2017 2:07 PM CDT documented as of this encounter Last Filed Vital Signs Vital Sign Reading Time Taken Comments Blood Pressure 148/67 09/29/2020 8:50 AM CDT Pulse 72 09/29/2020 8:50 AM CDT Temperature 36.6 ??C (97.9 ??F) 09/29/2020 8:50 AM CDT Respiratory Rate - - Oxygen Saturation - - Inhaled Oxygen Concentration - - Weight 51.1 kg (112 lb 10.5 oz) 09/29/2020 8:50 AM CDT Height - - Body Mass Index 18.68 08/17/2020 10:11 AM CDT documented in this encounter Plan of Treatment Upcoming Encounters Date Type Specialty Care Team Description 11/19/2021 Clinical Communication Admitting/Central Scheduling 11/23/2021 Comprehensive Visit Neurology Kenji Zaldivar M.D. [address] [place] [address] Scheduled Orders Name Type Priority Associated Diagnoses Order S chedule ONC Pump Disconnect Procedures Routine Malignant Neoplasm Of Expected: Pancreas Adenocarcinoma 10/2020 (HCC) (Approximate), Expires: 2023 documented as of this encounter Visit Diagnoses Diagnosis Malignant Neoplasm Of Pancreas Adenocarc inoma (HCC) - Primary documented in this encounter Administered Medications Inactive Administered Medications - up to 3 most recent administrations Medication Order MAR Action Action Date Dose Rate Site atropine injection 0.25 mg Given 09/29/2020 12:27 0.25 mg Right Lower 0.25 mg, subcutaneous, PM CDT Ab domen Once, On Mon09/29/20 at 1130, For 1 dose, Give prior to Irinotecan. Give subcutaneously if unable to give IV. Patient prefers SQ. dexamethasone in NaCl 0.9% IVPB 12 New Bag 09/29/2020 9:33 AM CDT 12 mg 200 mL/hr mg (DECADRON) 12 mg, intravenous, at 200 mL/hr, Administer over 15 Minutes, Once, On Mon09/29/20 at 0915, For 1 dose, Refrigerate fluorouraciL 3,000 mg in NaCl 0.9% 92 Given 09/29/2020 2:05 PM CDT 3,000 mg 2 mL/hr mL IVPB (ADRUCIL) 3,000 mg (rounded from 3,072 mg = 1,920 mg/m2 ? 1.6 m2 Treatment Plan BSA from Measured weight), intravenous, at 2 mL/hr, Administer over 46 Hours, over 46 hours, First dose on Mon09/29/20 at 1330, For 1 dose, Infuse at 2 mL/hr for 46 hours continuous infusion via CADD pump # [id number] fosaprepitant 150 mg in NaCl 0.9% New Bag 09/29/2020 9:53 AM C DT 150 mg 510 mL/hr IVPB (EMEND) 150 mg, intravenous, at 510 mL/hr, Administer over 30 Minutes, Once, On Mon09/29/20 at 0915, For 1 dose, Incompatible with solutions containing divalent cations (calcium, magnesium) including lactated Ringer's solution. irinotecan 220 mg in D5W 559 mL New Bag 09/29/2020 12:30 PM CD T 220 mg 373 mL/hr IVPB (CAMPTOSAR) 220 mg (rounded from 218.88 mg = 144 mg/m2 ? 1.52 m2 Order-specific BSA), intravenous, at 373 mL/hr, Administer over 90 Minutes, Once, On Mon09/29/20 at 1200, For 1 dose, May be given via y-site with leucovorin. Protect from light. leucovorin 650 mg in D5W 307.5 mL Bag 09/29/2020 12:31 PM CDT 650 mg 205 mL/hr IVPB 650 mg (rounded from 640 mg = 400 mg/m2 ? 1.6 m2 Treatment Plan BSA from Measured weight), intravenous, at 205 mL/hr, Administer over 90 Minutes, Once, On Mon09/29/20 at 1200, For 1 dose, Can be given via y-site with irinotecan. NaCl 0.9 % bolus 1,000 mL New 09/29/2020 9:13 AM CDT 1,000 mL 1000 mL/hr 1,000 mL, intravenous, at 1,000 mL/hr, Administer over 1 Hours, Once, On Mon09/29/20 at 0915, For 1 dose ondansetron in NaCl 0.9% IVPB 16 mg New 09/29/2020 9:13 AM CDT 16 mg 232 mL/hr (ZOFRAN) 16 mg, intravenous, at 232 mL/hr, Administer over 15 Minutes, Once, On Mon09/29/20 at 0915, For 1 dose oxaliplatin 100 mg in D5W 295 mL New Bag 09/29/2020 10:26 AM C DT 100 mg 148 mL/hr IVPB (ELOXATIN) 100 mg (rounded from 108.8 mg = 68 mg/m2 ? 1.6 m2 Treatment Plan BSA from Measured weight), intravenous, at 148 mL/hr, Administer over 2 Hours, Once, On Mon09/29/20 at 1000, For 1 dose, Flush infusion line with dextrose 5 % in water prior to administration of any concomitant medication. documented in this encounter
--- OUTSIDE RECORDS SUMMARY | 2021-11-03 07:06 | XMS_ITS | Encounter Summary ---
:1940 Author Organization [facility] Address [address] [place] [address] Care Team Providers Name Role Phone Unavailable Primary Care Provider Unavailable Reason for Visit Episode Based Medications (Routine) - Authorized Specialty Diagnoses / Procedures Referred By Contact Refer red To Contact Diagnoses Malignant Neoplasm Of Pancreas Adenocarcinoma (HCC) Neutropenia Chemotherapy Induced (HCC) Kimberly Rios, Rsmarleen Onc Coy HIGH C.N.P., M.S. [address] [place] [phone] Referral ID Status Reason Start Date Expiration Date Visits V isits Requested Authorized [id number] Authorized 06/03/2020 06/03/2021 99 99 Encounter Details Date Type Department Care Team Description 09/15/2020 Infusion Department of Oncology Nova Vivar Malig nant Neoplasm Of in [facility] Pancreas Adenocarcinoma [address] [facility] [address] [place] [address] (HCC) (Primary Dx) [place] [phone] Social History Tobacco Use Types Packs/Day Years [...] Do you belong to any clubs or [employer] 06/19/2021 organizations such as zoroastrianism groups, unions, fraternal or athletic groups, or [...] Sign Reading Time Taken Comments Blood Pressure 137/69 09/15/2020 8:25 AM CDT Pulse 70 09/15/2020 8:25 AM CDT Temperature 36.5 ??C (97.7 ??F) 09/15/2020 8:25 AM CDT Respiratory Rate - - Oxygen Saturation - - Inhaled Oxygen - - Concentration Weight 51.8 kg (114 lb 1.4 09/15/2020 8:49 AM reweighed without oz) CDT shoes Height - - Body Mass Index 18.92 08/17/2020 10:11 AM CDT documented in this encounter Plan of Treatment Upcoming Encounters Date Type Specialty Care Team Description 11/19/2021 Clinical Communication Admitting/Central Scheduling 11/23/2021 Comprehensive Visit Neurology Kenji Zaldivar M.D. [address] [place] [address] documented as of this encounter Visit Diagnoses Diagnosis Malignant Neoplasm Of Pancreas Adenocarc inoma (HCC) - Primary documented in this encounter Administered Medications Inactive Administered Medications - up to 3 most recent administrations Medication Order MAR Action Action Date Dose Rate Site atropine injection 0.25 mg Given 09/15/2020 12:26 0.25 mg Left Lower Abdomen 0.25 mg, subcutaneous, PM CDT Once, On Mon09/15/20 at 1115, For 1 dose, Give prior to Irinotecan. Give subcutaneously if unable to give IV. Patient prefers SQ. dexamethasone in NaCl 0.9% IVPB 12 New Bag 09/15/2020 8:49 AM CDT 12 mg 200 mL/hr mg (DECADRON) 12 mg, intravenous, at 200 mL/hr, Administer over 15 Minutes, Once, On Mon09/15/20 at 0845, For 1 dose, Refrigerate fluorouraciL 3,000 mg in NaCl 0.9% 92 Given 09/15/2020 2:08 PM CDT 3,000 mg 2 mL/hr mL IVPB (ADRUCIL) 3,000 mg (rounded from 3,072 mg = 1,920 mg/m2 ? 1.6 m2 Treatment Plan BSA from Measured weight), intravenous, at 2 mL/hr, Administer over 46 Hours, over 46 hours, First dose on Mon09/15/20 at 1315, For 1 dose, Infuse at 2 mL/hr for 46 hours continuous infusion via CADD pump #[id number] fosaprepitant 150 mg in NaCl 0.9% New 09/15/2020 9:32 AM C DT 150 mg 510 mL/hr IVPB (EMEND) 150 mg, intravenous, at 510 mL/hr, Administer over 30 Minutes, Once, On Mon09/15/20 at 0845, For 1 dose, Incompatible with solutions containing divalent cations (calcium, magnesium) including lactated Ringer's solution. irinotecan 220 mg in D5W 559 mL New Bag 09/15/2020 12:29 PM CD T 220 mg 373 mL/hr IVPB (CAMPTOSAR) 220 mg (rounded from 218.88 mg = 144 mg/m2 ? 1.52 m2 Order-specific BSA), intravenous, at 373 mL/hr, Administer over 90 Minutes, Once, On Mon09/15/20 at 1145, For 1 dose, May be given via y-site with leucovorin. Protect from light. leucovorin 650 mg in D5W 307.5 mL New Bag 09/15/2020 12:29 PM CDT 650 mg 205 mL/hr IVPB 650 mg (rounded from 640 mg = 400 mg/m2 ? 1.6 m2 Treatment Plan BSA from Measured weight), intravenous, at 205 mL/hr, Administer over 90 Minutes, Once, On Mon09/15/20 at 1145, For 1 dose, Can be given via y-site with irinotecan. NaCl 0.9 % bolus 1,000 mL 09/15/2020 8:49 AM CDT 1,000 mL 1000 mL/hr 1,000 mL, intravenous, at 1,000 mL/hr, Administer over 1 Hours, Once, On Mon09/15/20 at 0845, For 1 dose ondansetron in NaCl 0.9% IVPB 16 mg 09/15/2020 9:10 AM CDT 16 mg 232 mL/hr (ZOFRAN) 16 mg, intravenous, at 232 mL/hr, Administer over 15 Minutes, Once, On Mon09/15/20 at 0845, For 1 dose oxaliplatin 100 mg in D5W 295 mL 09/15/2020 10:22 AM C DT 100 mg 148 mL/hr IVPB (ELOXATIN) 100 mg (rounded from 108.8 mg = 68 mg/m2 ? 1.6 m2 Treatment Plan BSA from Measured weight), intravenous, at 148 mL/hr, Administer over 2 Hours, Once, On Mon09/15/20 at 0945, For 1 dose, Flush infusion line with dextrose 5 % in water prior to administration of any concomitant medication. sodium chloride 0.9 % injection 10 mL Given 09/15/2020 2:08 PM CDT 10 mL 10 mL, intra-catheter, As needed, line care, Starting on Mon09/15/20 at 0822, When IVAD Accessed and in Use: Flush prior to and following infusion, between multiple consecutive infusions, and prior to blood sampling. Given 09/15/2020 8:49 AM CDT 10 mL documented in this encounter
--- OUTSIDE RECORDS SUMMARY | 2021-11-03 07:06 | XMS_ITS | Encounter Summary ---
:1940 Author Organization [facility] Address [address] [place] [address] Care Team Providers Name Role Phone Unavailable Primary Care Provider Unavailable Encounter Details Date Type Department Care Team Description 10/07/2020 Documentation Division of Endocrinology in [place], [place] K[place]y [address] [facility] [address] [place] [address] [place], [place] [phone] (Wo rk) Social History Tobacco Use Types [...] or relatives? How often do you attend religious or More than 4 times per year 06/19/2021 yazdanism services? Do you belong to any clubs or Yes 06/19/2021 organizations such as religious groups, unions, fraternal or athletic groups, or [...] slept in a skilled nursing (including now)? Sex Assigned at Date Recorded Female 07/03/2017 2:07 PM CDT documented as of this encounter Progress Notes Konrad Cid M.D. - 10/07/2020 7:49 AM CDT Outside medical records received by fax for review from [employer]. The patient's renal function panel was collected as authorized by Wilton Lay M.D. Her laboratory values showed serum calcium normal at 8.8 mg/dL. The remainder of her analytes were also within normal limits, except for glucose mildly increased at 120 mg/dL, and her BUN/creatinine ratio mildly increased at 30. In light of these findings, no additional recommendations for now. Konrad Cid M.D. CT CT Job ID: [id number] documented in this encounter Plan of Treatment Upcoming Encounters Date Type Specialty Care Team Description 11/19/2021 Clinical Communication Admitting/Central Scheduling 11/23/2021 Comprehensive Visit Neurology Kenji Zaldivar M.D. [address] [place] [address] documented as of this encounter Visit Diagnoses Not on filedocumented in this encounter
--- OUTSIDE RECORDS SUMMARY | 2021-11-03 07:06 | XMS_ITS | Encounter Summary ---
:1940 Author Organization [facility] Address [address] [place] [address] Care Team Providers Name Role Phone Unavailable Primary Care Provider Unavailable Reason for Visit Reason Comments Med Refill Encounter Details Date Type Department Care Team Description 10/14/2020 Refill Department of Oncology in [facility] Med Refill [place], [place] [address] [facility] [address] [place] [address] [place] [address] [phone] Social History Tobacco Use Types Packs/Day Years [...] or relatives? How often do you attend mu-ism or More than 4 times per year 06/19/2021 druze services? Do you belong to any clubs or Yes 06/19/2021 organizations such as mu-ism groups, unions, fraternal or athletic groups, or [...] Notes Telephone Encounter - Frannie Kim - 10/14/2020 10:16 AM CDT Surescripts created refill request. documented in this encounter Plan of Treatment Upcoming Encounters Date Type Specialty Care Team Description 11/19/2021 Clinical Communication Admitting/Central Scheduling 11/23/2021 Comprehensive Visit Neurology Kenji Zaldivar M.D. 200 [place] [address] documented as of this encounter Visit Diagnoses Diagnosis Malignant Neoplasm Of Pancreas Adenocarc inoma (HCC) documented in this encounter
--- OUTSIDE RECORDS SUMMARY | 2021-11-03 07:06 | XMS_ITS | Encounter Summary ---
:1940 Author Organization [facility] Address [address] [place] [address] Care Team Providers Name Role Phone Unavailable Primary Care Provider Unavailable Reason for Visit Reason Comments Medication Question Encounter Details Date Type Department Care Team Description 10/15/2020 Clinical Department of Andrew Medication Communication Oncology in Cristy Cespedes [facility] [address] [place] [address] [place] [phone] Social History Tobacco Use Types Packs/Day Years [...] More than 4 times per year 06/19/2021 yarsanism services? Do you belong to any clubs [...] slept in a group home (including now)? Sex Assigned at Date Recorded Female 07/03/2017 2:07 PM CDT documented as of this encounter Miscellaneous Notes Telephone Encounter - Mariana Morales R.N. - 10/15/2020 2:57 PM CDT Rx refill request sent to Dr. Vivar to sign. documented in this encounter Plan of Treatment Upcoming Encounters Date Type Specialty Care Team Description 11/19/2021 Clinical Communication Admitting/Central Scheduling 11/23/2021 Comprehensive Visit Neurology Kenji Zaldivar M.D. [address] [place] [address] documented as of this encounter Visit Diagnoses Not on filedocumented in this encounter
--- OUTSIDE RECORDS SUMMARY | 2021-11-03 07:06 | XMS_ITS | Encounter Summary ---
:1940 Author Organization [facility] Address [address] [place] [address] Care Team Providers Name Role Phone Unavailable Primary Care Provider Unavailable Reason for Visit Reason Comments Nurse Visit Encounter Details Date Type Department Care Team Description 10/01/2020 Documentation Department of Oncology in [place], Nurse Visit [place], [place] R.N., O.C.N. [address] [facility] [address] [place] [address] [place], [place] [phone] Social History Tobacco Use Types Packs/Day Years [...] slept in a senior living (including now)? Sex Assigned at Date Recorded Female 07/03/2017 2:07 PM CDT documented as of this encounter Progress Notes Sima Alexis R.N. - 10/01/2020 9:37 AM CDT Patient called to report that her ambulatory chemotherapy pump alarmed with approximately 5ml (2.5 hours) remaining. She has attempted the troubleshooting guide 3 times without success. I have contacted Kimberly Rios regarding issue to receive guidance on what patient should do. She is set to have the pump disconnect in [place] at 12pm. Per Dr. Vivar, she will disconnect pump early and does not need to receive the remainder of the infusion. I will call [place] and inform them of the issue. Sima Alexis RN. documented in this encounter Plan of Treatment Upcoming Encounters Date Type Specialty Care Team Description 11/19/2021 Clinical Communication Admitting/Central Scheduling 11/23/2021 Comprehensive Visit Neurology Kenji Zaldivar M.D. [address] [place] [address] documented as of this encounter Visit Diagnoses Not on filedocumented in this encounter
--- OUTSIDE RECORDS SUMMARY | 2021-11-03 07:06 | XMS_ITS | Encounter Summary ---
:1940 Author Organization [facility] Address [address] [place] [address] Care Team Providers Name Role Phone Unavailable Primary Care Provider Unavailable Reason for Visit Episode Based Medications (Routine) - Authorized Specialty Diagnoses / Procedures Referred By Contact Refer red To Contact Diagnoses Malignant Neoplasm Of Pancreas Adenocarcinoma (HCC) Neutropenia Chemotherapy Induced (HCC) Kimberly Rios Rsmarleen Onc Coy HIGH C.N.[place]Chico, M.S. 200 [address] [facility] [address] [place] [address] [phone] Referral ID Status Reason Start Date Expiration Date Visits V isits Requested Authorized [id number] Authorized 06/03/2020 06/03/2021 99 99 Encounter Details Date Type Department Care Team Description 10/13/2020 Infusion Department of Oncology Kimberly Rios Ma lignant Neoplasm Of in [place], Alan, LENNOX C.N.PChico, Pancreas A denocarcinoma [facility] (HCC) (Primary Dx) [address] [place] [address] [place] [phone] Social History Tobacco Use Types Packs/Day Years [...] or slept in a usp (including now)? Sex Assigned at Date Recorded Female 07/03/2017 2:07 PM CDT documented as of this encounter Last Filed Vital Signs Vital Sign Reading Time Taken Comments Blood Pressure 141/67 10/13/2020 10:46 AM CDT Pulse 72 10/13/2020 10:46 AM CDT Temperature 36.4 ??C (97.5 ??F) 10/13/2020 10:46 AM CDT Respiratory Rate - - Oxygen Saturation - - Inhaled Oxygen Concentration - - Weight 51.4 kg (113 lb 3.3 oz) 10/13/2020 10:46 AM CDT Height - - Body Mass Index 18.63 10/12/2020 2:55 PM CDT documented in this encounter Plan of Treatment Upcoming Encounters Date Type Specialty Care Team Description 11/19/2021 Clinical Communication Admitting/Central Scheduling 11/23/2021 Comprehensive Visit Neurology Kenji Zaldivar M.D. [address] [place] [address] documented as of this encounter Visit Diagnoses Diagnosis Malignant Neoplasm Of Pancreas Adenocarc inoma (HCC) - Primary documented in this encounter Administered Medications Inactive Administered Medications - up to 3 most recent administrations Medication Order MAR Action Action Date Dose Rate Site atropine injection 0.25 mg Given 10/13/2020 2:21 0.25 mg Right Upper 0.25 mg, subcutaneous, PM CDT Ab domen Once, On Mon10/13/20 at 1330, For 1 dose, Give prior to Irinotecan. Give subcutaneously if unable to give IV. Patient prefers SQ. dexamethasone in NaCl 0.9% IVPB 12 New Bag 10/13/2020 11:22 AM CDT 12 mg 200 mL/hr mg (DECADRON) 12 mg, intravenous, at 200 mL/hr, Administer over 15 Minutes, Once, On Mon10/13/20 at 1100, For 1 dose, Refrigerate fluorouraciL 3,000 mg in NaCl 0.9% 92 Given 10/13/2020 3:56 PM CDT 3,000 mg 2 mL/hr mL IVPB (ADRUCIL) 3,000 mg (rounded from 3,072 mg = 1,920 mg/m2 ? 1.6 m2 Treatment Plan BSA from Measured weight), intravenous, at 2 mL/hr, Administer over 46 Hours, over 46 hours, First dose on Mon10/13/20 at 1530, For 1 dose, Infuse at 2 mL/hr for 46 hours continuous infusion via CADD pump # [id number] fosaprepitant 150 mg in NaCl 0.9% New Bag 10/13/2020 11:42 AM CDT 150 mg 510 mL/hr IVPB (EMEND) 150 mg, intravenous, at 510 mL/hr, Administer over 30 Minutes, Once, On Mon10/13/20 at 1100, For 1 dose, Incompatible with solutions containing divalent cations (calcium, magnesium) including lactated Ringer's solution. irinotecan 220 mg in D5W 559 mL New Bag 10/13/2020 2:21 PM CDT 220 mg 373 mL/hr IVPB (CAMPTOSAR) 220 mg (rounded from 218.88 mg = 144 mg/m2 ? 1.52 m2 Order-specific BSA), intravenous, at 373 mL/hr, Administer over 90 Minutes, Once, On Mon10/13/20 at 1400, For 1 dose, May be given via y-site with leucovorin. Protect from light. leucovorin 650 mg in D5W 307.5 mL New Bag 10/13/2020 2:22 PM C DT 650 mg 205 mL/hr IVPB 650 mg (rounded from 640 mg = 400 mg/m2 ? 1.6 m2 Treatment Plan BSA from Measured weight), intravenous, at 205 mL/hr, Administer over 90 Minutes, Once, On Mon10/13/20 at 1400, For 1 dose, Can be given via y-site with irinotecan. NaCl 0.9 % bolus 1,000 mL Restarted 10/13/2020 2:20 PM CDT 1000 mL/hr 1,000 mL, intravenous, at 1,000 mL/hr, Administer over 1 Hours, Once, On Mon10/13/20 at 1100, For 1 dose New 10/13/2020 11:02 AM CDT 1,000 mL 1000 mL/hr ondansetron in NaCl 0.9% IVPB 16 mg New 10/13/2020 11:02 A M CDT 16 mg 232 mL/hr (ZOFRAN) 16 mg, intravenous, at 232 mL/hr, Administer over 15 Minutes, Once, On Mon10/13/20 at 1100, For 1 dose oxaliplatin 100 mg in D5W 295 mL New 10/13/2020 12:18 PM C DT 100 mg 148 mL/hr IVPB (ELOXATIN) 100 mg (rounded from 108.8 mg = 68 mg/m2 ? 1.6 m2 Treatment Plan BSA from Measured weight), intravenous, at 148 mL/hr, Administer over 2 Hours, Once, On Mon10/13/20 at 1200, For 1 dose, Flush infusion line with dextrose 5 % in water prior to administration of any concomitant medication. sodium chloride 0.9 % injection 10 mL Given 10/13/2020 3:56 PM CDT 10 mL 10 mL, intra-catheter, As needed, line care, Starting on Mon10/13/20 at 1053, When IVAD Accessed and in Use: Flush prior to and following infusion, between multiple consecutive infusions, and prior to blood sampling. Given 10/13/2020 10:59 AM CDT 10 mL documented in this encounter
--- OUTSIDE RECORDS SUMMARY | 2021-11-03 07:06 | XMS_ITS | Encounter Summary ---
:1940 Author Organization [facility] Address [address] [place] [address] Care Team Providers Name Role Phone Unavailable Primary Care Provider Unavailable Reason for Visit Reason Comments Intake Assessment Encounter Details Date Type Department Care Team Description 10/08/2020 Clinical Communication Department of [facility] In[facility] ke Assessment Oncology in [place], [place] 200 [address] [facility] [address] [place] [phone] Social History Tobacco Use Types Packs/Day Years [...] Comprehensive Visit Neurology Kenji Zaldivar M.D. 200 [place] [address] documented as of this encounter Visit Diagnoses Not on filedocumented in this encounter
--- OUTSIDE RECORDS SUMMARY | 2021-11-03 07:06 | XMS_ITS | Encounter Summary ---
:1940 Author Organization [facility] Address [address] [place] [address] Care Team Providers Name Role Phone Unavailable Primary Care Provider Unavailable Encounter Details Date Type Department Care Team Description 09/29/2020 Clinical Communication Department of [facility] Unassigned , [facility] Medicine, [facility], in [place], [place] [address] [place] [address] [facility] [phone] Social History Tobacco Use Types Packs/Day Years [...] More than 4 times per year 06/19/2021 shinto services? Do you belong to any clubs [...] or slept in a intermediate (including now)? Sex Assigned at Date Recorded Female 07/03/2017 2:07 PM CDT documented as of this encounter Miscellaneous Notes Telephone Encounter - Lakeshia Ramirez - 09/29/2020 1:23 PM CDT This is done. Telephone Encounter - Lakeshia Ramirez - 09/29/2020 11:17 AM CDT [facility] called again, stated this patient needs to be seen on 10/01 at 12:00 exactly. There are no open chairs at this time. Please advise. Thank you Telephone Encounter - Diana Hancock - 09/29/2020 10:38 AM CDT Reason for Communication: Sima calling in from [facility]. Sima is needing to schedule a pump disconnect for patient. Please advise and call Sima back. Current Can Nursing/Provider leave a detailed message?: n/a Did the patient refuse triage through Nurse line? (for symptom based concerns): n/a Action Needed: Call back Name of Medication (if relevant): n/a documented in this encounter Plan of Treatment Upcoming Encounters Date Type Specialty Care Team Description 11/19/2021 Clinical Communication Admitting/Central Scheduling 11/23/2021 Comprehensive Visit Neurology Kenji Zaldivar M.D. [address] [place] [address] documented as of this encounter Visit Diagnoses Not on filedocumented in this encounter
--- OUTSIDE RECORDS SUMMARY | 2021-11-03 07:06 | XMS_ITS | Encounter Summary ---
:1940 Author Organization [facility] Address [address] [address] Care Team Providers Name Role Phone Unavailable Primary Care Provider Unavailable Reason for Visit Episode Based Medications (Routine) - Authorized Specialty Diagnoses / Procedures Referred By Contact Refer red To Contact Diagnoses Malignant Neoplasm Of Pancreas Adenocarcinoma (HCC) Neutropenia Chemotherapy Induced (HCC) Kimberly Rios, Rst Onc Coy HIGH C.N.P., M.S. 200 [address] [facility] [address] [place] [phone] Referral ID Status Reason Start Date Expiration Date Visits V isits Requested Authorized [id number] Authorized 06/03/2020 06/03/2021 99 99 Encounter Details Date Type Department Care Team Description 10/12/2020 Lab Department of Infusion Kimberly Rios, Malignant Neoplasm Of Therapy in [facility] LENNOX C.N. P., M.S. Pancreas Adenocarcinoma [place] [address] [place] [address] (HCC) (Primary Dx) [address] [place] [phone] Social History Tobacco Use Types Packs/Day Years [...] or relatives? How often do you attend amish or More than 4 times per year 06/19/2021 religion services? Do you belong to any clubs or Yes 06/19/2021 organizations such as amish groups, unions, fraternal or athletic groups, or [...] Visit Neurology Kenji Zaldivar M.D. [address] [place] [address] documented as of this encounter Procedures Procedure Name Priority Date/Time Associated Diagnosis Comme nts CBC WITH Routine 10/12/2020 9:10 Malignant Neoplasm Of Res ults for this DIFFERENTIAL, B AM CDT Pancreas procedure ar e in Adenocarcinoma (HCC) the res ults section. MAGNESIUM, S Routine 10/12/2020 9:10 Malignant Neoplasm Of Res ults for this AM CDT Pancreas procedure are i n Adenocarcinoma (HCC) the res ults section. COMPREHENSIVE Routine 10/12/2020 9:10 Malignant Neoplasm Of Re sults for this METABOLIC PANEL, S/P AM CDT Pancreas procedu re are in Adenocarcinoma (HCC) the res ults section. CARBOHYDRATE AG 19-9 Routine 10/12/2020 9:09 Malignant Neoplas m Of Results for this (CA 19-9), S AM CDT Pancreas procedure are i n Adenocarcinoma (HCC) the res ults section. BILIRUBIN DIRECT, S/P Routine 10/12/2020 9:09 Malignant Neopla sm Of Results for this AM CDT Pancreas procedure are i n Adenocarcinoma (HCC) the res ults section. documented in this encounter Results (ABNORMAL) Comprehensive Metabolic Panel (10/12/2020 9:10 AM CDT) P athologist Signature Potassium, S 4.1 3.6 - 5.2 10/12/2020 DTL mmol/L 11:30 AM CDT Sodium, S 141 135 - 145 10/12/2020 DTL mmol/L 11:30 AM CDT Chloride, S 103 98 - 107 10/12/2020 DTL mmol/L 11:30 AM CDT Bicarbonate, S 27 22 - 29 10/12/2020 DTL mmol/L 11:30 AM CDT Anion Gap 11 7 - 15 10/12/2020 DTL 11:30 AM CDT BUN (Blood Urea 15 6 - 21 10/12/2020 DTL Nitrogen), S mg/dL 11:30 AM CDT Creatinine, S 0.82 0.59 - 1.04 10/12/2020 DTL mg/dL 11:30 AM CDT eGFR-Non 69 >=60 10/12/2020 DTL Black/ mL/min/BSA 11:30 AM CDT Panamanian Comment: ----ADDITIONAL INFORMATION---- Estimated GFR calculated using the 2009 CKD_EPI creatinine equation. eGFR-Black/ 79 >=60 mL/min/BSA 2020 11:30 AM CDT DTL Comment: ----ADDITIONAL INFORMATION---- Estimated GFR calculated using the 2009 CKD_EPI creatinine equation. Calcium, Total, S 9.9 8.8 - 10.2 mg/dL 10/12/2020 11:3 0 AM CDT DTL Glucose, S 84 70 - 140 mg/dL 10/12/2020 11:30 AM CDT DTL Protein, Total, S 6.2 (L) 6.3 - 7.9 g/dL 10/12/2020 11:30 AM CDT DTL Albumin, S 4.3 3.5 - 5.0 g/dL 10/12/2020 11:30 AM CDT DTL Aspartate Aminotransferase 31 8 - 43 U/L 10/12/2020 1 1:30 AM CDT DTL (AST), S Alkaline Phosphatase, S 69 35 - 104 U/L 10/12/2020 11 :30 AM CDT DTL Alanine Aminotransferase 26 7 - 45 U/L 10/12/2020 11: 30 AM CDT DTL (ALT), S Bilirubin, Total, S 0.2 <=1.2 mg/dL 10/12/2020 11:30 A M CDT DTL Specimen Anatomical Collection Method Collection Time Receive d Time (Source) Location / / Volume Laterality Blood (Blood, 10/12/2020 9:10 AM 10/13/19 9:24 Venous) CDT AM CDT Trace Rudolph APRNN.Hossein., M.S. LAB BLOOD ADD-ON Performing Organization Address City/State/[facility] Code Phon e Number [facility] - [address] [place], [place] [address] [facility] [place] [address] Laboratories-[facility] 200 [address] [facility] (ABNORMAL) CBC with Differential, Blood (10/12/2020 9:10 AM CDT) [facility] Method Time Signature Hemoglobin 9.9 (L) 11.6 - 10/12/2020 DTL 15.0 g/dL 10:10 AM CDT Hematocrit 30.1 (L) 35.5 - 10/12/2020 DTL 44.9 % 10:10 AM CDT Erythrocytes 2.89 (L) 3.92 - 10/12/2020 DTL 5.13 10:10 AM CDT x10(12)/L MCV 104.2 (H) 78.2 - 10/12/2020 DTL 97.9 fL 10:10 AM CDT RBC Distrib Width 14.4 12.2 - 10/12/2020 DTL 16.1 % 10:10 AM CDT Platelet Count 160 157 - 371 10/12/2020 DTL x10(9)/L 10:10 AM CDT Leukocytes 3.6 3.4 - 9.6 10/12/2020 DTL x10(9)/L 10:10 AM CDT Neutrophils 2.20 1.56 - 10/12/2020 DTL 6.45 10:10 AM CDT x10(9)/L Lymphocytes 0.75 (L) 0.95 - 10/12/2020 DTL 3.07 10:10 AM CDT x10(9)/L Monocytes 0.55 0.26 - 10/12/2020 DTL 0.81 10:10 AM CDT x10(9)/L Eosinophils 0.05 0.03 - 10/12/2020 DTL 0.48 10:10 AM CDT x10(9)/L Basophils <0.03 0.01 - 10/12/2020 DTL 0.08 10:10 AM CDT x10(9)/L Specimen Anatomical Collection Method Collection Time Receive d Time (Source) Location / / Volume Laterality Blood (Blood, 10/12/2020 9:10 AM 10/13/19 9:41 Venous) CDT AM CDT Harleen Rudolph APRN.N.Hossein., M.S. LAB BLOOD ADD-ON Performing Organization Address City/[facility] Phon e Number [facility] - [address] Magnesium (10/12/2020 9:10 AM CDT) P athologist Signature Magnesium, S 2.2 1.7 - 2.3 10/12/2020 DTL mg/dL 11:30 AM CDT Specimen Anatomical Collection Method Collection Time Receive d Time (Source) Location / / Volume Laterality Blood (Blood, 10/12/2020 9:10 AM 10/13/19 9:24 Venous) CDT AM CDT Harleen Rudolph APRN.N.P., M.S. LAB BLOOD ADD-ON Performing Organization Address City/State/[facility] Code Phon e Number [facility] - [id number] [place] [address] [facility] Bilirubin, Direct (10/12/2020 9:09 AM CDT) P athologist Signature Bilirubin, <0.2 0.0 - 0.3 10/12/2020 DTL Direct, S mg/dL 11:14 AM CDT Specimen Anatomical Collection Method Collection Time Receive d Time (Source) Location / / Volume Laterality Blood (Blood, 10/12/2020 9:09 AM 10/13/19 9:24 Venous) CDT AM CDT Kimberly Rios APRN, C.N.P., M.S. LAB BLOOD ADD-ON Performing Organization Address City/[facility] Phon e Number [facility] - [address] [place], [place] [address] [place] [address] [facility] [address] (ABNORMAL) Carbohydrate Antigen 19-9 (CA 19-9) (10/12/2020 9:09 AM CDT) Analysis Performed At Patho logist Time Signature Carbohydrate Ag 44 (H) <35 U/mL 10/12/2020 [facility] 19-9, S 2:29 PM CDT Comment: ----ADDITIONAL INFORMATION---- The testing method is an immunoenzymatic assay manufactured by [employer] and performed on the [employer] DxI 800. ? Values obtained with different assay met hods or kits may be different and cannot be used inte rchangeably. ? Test results cannot be interpreted as ab solute evidence for the presence or absence of malignant disease. Specimen Anatomical Collection Method Collection Time Receive d Time (Source) Location / / Volume Laterality Blood (Blood, 10/12/2020 9:09 AM 10/13/19 1:32 Venous) CDT PM CDT Kimberly Rios APRN, C.N.P., M.S. LAB BLOOD ADD-ON Performing Organization Address City/[facility] Phon e Number [facility] [address] [place], [place] [address] SU[facility] [place] [address] Laboratory Medicine and Pathology [address] [place] documented in this encounter Visit Diagnoses Diagnosis Malignant Neoplasm Of Pancreas Adenocarc inoma (HCC) - Primary documented in this encounter Administered Medications Inactive Administered Medications - up to 3 most recent administrations Medication Order MAR Action Action Date Dose Rate Site heparin flush 500 Units Given 10/12/2020 9:11 AM CDT 500 Units 500 Units, intra-catheter, As needed, line care, Starting on Mon10/12/20 at 0905, When no infusion to maintain patency: For IVAD accessed, not in use, and/or prior to hospital discharge, flush every 7 days after 0.9% preservative-free NaCL flush. For IVAD NOT accessed or used, flush every 4 weeks after 0.9% preservative-free NaCL flush. sodium chloride 0.9 % injection 10 mL Given 10/12/2020 9:11 AM CDT 10 mL 10 mL, intra-catheter, As needed, line care, Starting on Mon10/12/20 at 0905, When no infusion to maintain patency: For IVAD accessed and in use, flush every 12 hours. For IVAD accessed, not in use, and/or prior to hospital discharge, flush every 7 days followed by Heparin flush. For IVAD NOT accessed or used, flush every 4 weeks followed by Heparin flush. sodium chloride 0.9 % injection 20 mL Given 10/12/2020 9:11 AM CDT 20 mL 20 mL, intra-catheter, As needed, line care, Starting on Mon10/12/20 at 0905, When IVAD Accessed and in Use: Flush post blood transfusion or post blood sampling. documented in this encounter
--- OUTSIDE RECORDS SUMMARY | 2021-11-03 07:07 | XMS_ITS | Encounter Summary ---
:1940 Author Organization [facility] Address [address] [place] [address] Care Team Providers Name Role Phone Unavailable Primary Care Provider Unavailable Encounter Details Date Type Department Care Team Description 08/05/2020 Clinical Communication Division of Konrad Cid, Endocrinology in [place], [place] [address] [facility] [address] [place] [phone] Social History Tobacco Use Types Packs/Day Years [...] this encounter Miscellaneous Notes Telephone Encounter - Michelle Vail - 08/05/2020 3:32 PM CDT Patient called Reason for Calling:Calcium tests/meds Detailed Message:Patient is asking if we received her calcium test results yet from this morning (I didn't see these yet). She is also wondering if when we receive those we can call her with the dosages for her Calcitrol and Citracal. Best time to be reached:anytime Contact patient by:phone Phone number: [phone] Thank you Shanta, [employer] Crew Member PLEASE REPLY TO THE SECRETARIAL POOL WHEN REPLYING TO THIS MESSAGE--p RST END KAT MED AA. Thank you! documented in this encounter Plan of Treatment Upcoming Encounters Date Type Specialty Care Team Description 11/19/2021 Clinical Communication Admitting/Central Scheduling 11/23/2021 Comprehensive Visit Neurology Kenji Zaldivar M.D. [address] [place] [address] documented as of this encounter Visit Diagnoses Not on filedocumented in this encounter
--- OUTSIDE RECORDS SUMMARY | 2021-11-03 07:07 | XMS_ITS | Encounter Summary ---
:1940 Author Organization [facility] Address [address] [place] [address] Care Team Providers Name Role Phone Unavailable Primary Care Provider Unavailable Reason for Visit Reason Comments OSM Encounter Details Date Type Department Care Team Description 08/20/2020 Clinical Communication Division of Konrad Cid OS M Endocrinology in [place], [place] [address] [place] [address] [address] [place] [phone] Social History Tobacco Use Types Packs/Day Years [...] encounter Progress Notes Konrad Cid M.D. - 08/20/2020 11:41 AM CDT Outside medical records received by fax were reviewed. [facility] on August 18, 2020, at 2:58 p.m. showed serum calcium increased at 11.3 mg/dL (normal, 8.5 to 10.5). In light of this finding, no additional recommendations for now. The patient has been advised to discontinue her calcium and calcitriol supplements. Konrad Cid M.D. CT CT Job ID: [id number] documented in this encounter Miscellaneous Notes Telephone Encounter - Carol Sullivan - 08/20/2020 10:57 AM CDT We [facility] You last saw the patient on 07/27/2020. The records are viewable in document viewer. Thank you, Carol Blake, Cannon Pinion Adjuster [phone] documented in this encounter Plan of Treatment Upcoming Encounters Date Type Specialty Care Team Description 11/19/2021 Clinical Communication Admitting/Central Scheduling 11/23/2021 Comprehensive Visit Neurology Kenji Zaldivar M.D. [address] [place] [phone] documented as of this encounter Visit Diagnoses Not on filedocumented in this encounter
--- OUTSIDE RECORDS SUMMARY | 2021-11-03 07:07 | XMS_ITS | Encounter Summary ---
:1940 Author Organization [facility] Address [address] [place] [address] Care Team Providers Name Role Phone Unavailable Primary Care Provider Unavailable Reason for Visit Reason Comments Nurse Visit Ambulatory pump troubleshoot ing Encounter Details Date Type Department Care Team Description 08/06/2020 Documentation Department of Oncology Sima Alexis Visit in [place], A, R.N., O.C.N. (Ambulatory pump [place] [address] [address] [facility] troubleshooting) [address] [place] [phone] Social History Tobacco Use Types Packs/Day Years [...] 06/19/2021 organizations such as restorationist groups, unions, fraternal or athletic groups, or [...] encounter Progress Notes Sima Alexis R.N. - 08/06/2020 7:58 AM CDT Patient called outpatient chemotherapy unit to report that her ambulatory pump alarmed starting around 12:30am on 08/06/20. Patient was unable to get the pump restarted on her own. RN walked through troubleshooting for no disposable clamp tubing as the pump was displaying that alarm. After 2 additional attempts while on the phone, Dr. Vivar was contacted to inform him of the situation. The patient has approximately 14 hours remaining of her infusion, so Dr. Vivar advised the patient to return to[facility] to assess. Patient was agreeable to the plan and will present as soon as possible to the unit. documented in this encounter Plan of Treatment Upcoming Encounters Date Type Specialty Care Team Description 11/19/2021 Clinical Communication Admitting/Central Scheduling 11/23/2021 Comprehensive Visit Neurology Kenji Zaldivar M.D. [address] [place] [address] documented as of this encounter Visit Diagnoses Not on filedocumented in this encounter
--- OUTSIDE RECORDS SUMMARY | 2021-11-03 07:07 | XMS_ITS | Encounter Summary ---
:[address] [facility] Address [address] [place] [address] Care Team Providers Name Role Phone Unavailable Primary Care Provider Unavailable Encounter Details Date Type Department Care Team Description 08/07/2020 Orders Only Department of Oncology in [place], [place] Frank HIGH, M.S. [address] [facility] [address] [place] [address] [place], [place] [phone] (Wo rk) Social History Tobacco Use Types [...] Visit Neurology Kenji Zaldivar M.D. [address] [place] [address] documented as of this encounter Visit Diagnoses Not on filedocumented in this encounter
--- OUTSIDE RECORDS SUMMARY | 2021-11-03 07:07 | XMS_ITS | Encounter Summary ---
:1940 Author Organization [facility] Address [address] [place] [address] Care Team Providers Name Role Phone Unavailable Primary Care Provider Unavailable Reason for Visit Reason Comments [facility] 08/21/2020 Encounter Details Date Type Department Care Team Description 08/25/2020 Clinical Communication Division of Konrad Cid ( Labs Endocrinology in [place]asey Phillips 08/21/2020) [place], [place] [address] [facility] [address] [place] [phone] Social History Tobacco Use Types Packs/Day Years [...] Notes Telephone Encounter - Carol Sullivan - 08/25/2020 10:00 AM CDT We received outside records on your patient from [employer]. You last saw the patient on 07/27/2020. The records are viewable in document viewer. ?? Thank you, Carol Blaek, Straw Hat Brim Cutter Operator [phone] documented in this encounter Plan of Treatment Upcoming Encounters Date Type Specialty Care Team Description 11/19/2021 Clinical Communication Admitting/Central Scheduling 11/23/2021 Comprehensive Visit Neurology Kenji Zaldivar M.D. 200 [place] [address] documented as of this encounter Visit Diagnoses Not on filedocumented in this encounter
--- OUTSIDE RECORDS SUMMARY | 2021-11-03 07:07 | XMS_ITS | Encounter Summary ---
:1940 Author Organization [facility] Address [address] [place] [address] Care Team Providers Name Role Phone Unavailable Primary Care Provider Unavailable Reason for Visit Outpatient (Routine) - Closed Specialty Diagnoses / Procedures Referred By Contact Refer red To Contact Diagnoses Malignant Neoplasm Of Pancreas Adenocarcinoma (HCC) Kimberly Rios APRN, [facility] Procedures ONC Pump Disconnect C.N.P., M.S. [address] [place] [address] Referral ID Status Reason Start Date Expiration Date Visits Requ ested Visits Authorized [id number] Closed 09/01/2020 09/01/2021 5 5 Encounter Details Date Type Department Care Team Description 09/03/2020 Infusion Department of Infusion Kimberly Rios Ma lignant Neoplasm Of Therapy in [facility], LENNOX, C.N.P., Sigala creas Adenocarcinoma [facility] (HCC) (Primary Dx) [address] [place] [phone] Social History Tobacco Use [...] 06/19/2021 organizations such as adventism groups, unions, [employer] or athletic groups, or school groups? How [...] or slept in a longterm (including now)? Sex Assigned at Date Recorded Female 07/03/2017 2:07 PM CDT documented as of this encounter Plan of Treatment Upcoming Encounters Date Type Specialty Care Team Description 11/19/2021 Clinical Communication Admitting/Central Scheduling 11/23/2021 Comprehensive Visit Neurology Kenji Zaldivar M.D. [address] [place] [address] documented as of this encounter Visit Diagnoses Diagnosis Malignant Neoplasm Of Pancreas Adenocarc inoma (HCC) - Primary documented in this encounter Administered Medications Inactive Administered Medications - up to 3 most recent administrations Medication Order MAR Action Action Date Dose Rate Site heparin flush 500 Units Given 09/03/2020 12:16 PM CDT 500 Units 500 Units, intra-catheter, As needed, line care, Starting on Laila 09/03/20 at 1226, When no infusion to maintain patency: For IVAD accessed, not in use, and/or prior to hospital discharge, flush every 7 days after 0.9% preservative-free NaCL flush. For IVAD NOT accessed or used, flush every 4 weeks after 0.9% preservative-free NaCL flush. sodium chloride 0.9 % injection 20 mL Given 09/03/2020 12:16 PM CDT 20 mL 20 mL, intra-catheter, As needed, line care, Starting on Laila 09/03/20 at 1226, When IVAD Accessed and in Use: Flush post blood transfusion or post blood sampling. documented in this encounter
--- OUTSIDE RECORDS SUMMARY | 2021-11-03 07:07 | XMS_ITS | Encounter Summary ---
:1940 Author Organization [facility] Address [address] [place] [address] Care Team Providers Name Role Phone Unavailable Primary Care Provider Unavailable Reason for Visit Reason Comments Outpatient Infusion Episode Based Medications (Routine) - Closed Specialty Diagnoses / Procedures Referred By Contact Refer red To Contact Diagnoses Malignant Neoplasm Of Pancreas Adenocarcinoma (HCC) Nova Vivar M.B.B.S. Rst Onc Rog 200 [facility] [address] [place] [phone] Referral ID Status Reason Start Date Expiration Date Visits Requ ested Visits Authorized [id number] Closed 08/17/2020 08/17/2021 99 99 Encounter Details Date Type Department Care Team Description 08/17/2020 Infusion Department of Infusion Nova Vivar Malig nant Neoplasm Of Therapy in [facility] Pancreas Adenocarcinoma [place] 200 [facility] (HCC) (Primary Dx) [address] [place] [phone] Social History Tobacco Use Types Packs/Day Years [...] 06/19/2021 organizations such as hoahaoism groups, unions, [employer] or athletic groups, or school groups? [...] or slept in a prison (including now)? Sex Assigned at Date Recorded Female 07/03/2017 2:07 PM CDT documented as of this encounter Last Filed Vital Signs Vital Sign Reading Time Taken Comments Blood Pressure 158/84 08/17/2020 11:16 AM CDT Pulse 73 08/17/2020 11:16 AM CDT Temperature 36.8 ??C (98.2 ??F) 08/17/2020 11:16 AM CDT Respiratory Rate 16 08/17/2020 11:16 AM CDT Oxygen Saturation - - Inhaled Oxygen Concentration - - Weight - - Height - - Body Mass Index - - documented in this encounter Plan of Treatment Upcoming Encounters Date Type Specialty Care Team Description 11/19/2021 Clinical Communication Admitting/Central Scheduling 11/23/2021 Comprehensive Visit Neurology Kenji Zaldivar M.D. 200 [place] [phone] documented as of this encounter Visit Diagnoses Diagnosis Malignant Neoplasm Of Pancreas Adenocarc inoma (HCC) - Primary documented in this encounter Administered Medications Inactive Administered Medications - up to 3 most recent administrations Medication Order MAR Action Action Date Dose Rate Site heparin flush 500 Units Given 08/17/2020 12:41 PM CDT 500 Units 500 Units, intra-catheter, As needed, line care, Starting on Mon08/17/20 at 1116, When no infusion to maintain patency: For IVAD accessed, not in use, and/or prior to hospital discharge, flush every 7 days after 0.9% preservative-free NaCL flush. For IVAD NOT accessed or used, flush every 4 weeks after 0.9% preservative-free NaCL flush. NaCl 0.9 % bolus 1,000 mL New Bag 08/17/2020 11:27 AM CDT 1,000 mL 1000 mL/hr 1,000 mL, intravenous, at 1,000 mL/hr, Administer over 1 Hours, Once, On Mon08/17/20 at 1115, For 1 dose sodium chloride 0.9 % injection 10 mL Given 08/17/2020 12:41 PM CDT 10 mL 10 mL, intra-catheter, As needed, line care, Starting on Mon08/17/20 at 1112, When IVAD Accessed and in Use: Flush prior to and following infusion, between multiple consecutive infusions, and prior to blood sampling. Given 08/17/2020 11:26 AM CDT 10 mL documented in this encounter
--- OUTSIDE RECORDS SUMMARY | 2021-11-03 07:07 | XMS_ITS | Encounter Summary ---
:[address] [facility] Address [address] [place] [address] Care Team Providers Name Role Phone Unavailable Primary Care Provider Unavailable Encounter Details Date Type Department Care Team Description 08/04/2020 Lab Department of Laboratory Konrad Cid, Malignant Neoplasm Of Medicine and PathologyKasey Pancreas Adenocarcinoma [facility] in [address] [place] [address] (FORMERLY [facility]) [place], [place] [address] [place] [phone] [place] [address] [phone] Social History Tobacco Use Types Packs/Day Years [...] Comprehensive Visit Neurology Kenji Zaldivar M.D. 200 [place] [address] documented as of this encounter Visit Diagnoses Diagnosis Malignant Neoplasm Of Pancreas Adenocarc inoma (HCC) documented in this encounter
--- OUTSIDE RECORDS SUMMARY | 2021-11-03 07:07 | XMS_ITS | Encounter Summary ---
:1940 Author Organization [facility] Address [address] [place] [address] Care Team Providers Name Role Phone Unavailable Primary Care Provider Unavailable Reason for Visit Reason Comments Consult PHR ONC PHARMACIST [facility] 2 ADELAIDA O PRE CHEMO Episode Based Medications (Routine) - Authorized Specialty Diagnoses / Procedures Referred By Contact Refer red To Contact Diagnoses Malignant Neoplasm Of Pancreas Adenocarcinoma (HCC) Neutropenia Chemotherapy Induced (HCC) Kimberly Rios, Rst Onc Trace Cespedes APRNNJasson, M.S. [address] [place] [address] [place] [phone] Referral ID Status Reason Start Date Expiration Date Visits V isits Requested Authorized [id number] Authorized 06/03/2020 06/03/2021 99 99 Encounter Details Date Type Department Care Team Description 08/31/2020 Office Visit Department of Nova Vivar M.B .B.S. [address] [place] [phone] Malignant Neoplasm Of Oncology in Lolly Han, Pharm.D., R.Ph. [address] [place] [phone] Pancreas Adenocarcinoma [place], [place] (HCC) [address] [place], [place] [phone] Social History Tobacco Use Types Packs/Day Years [...] 06/19/2021 organizations such as restorationist groups, unions, fraF?rsat Bu F?rsat or athletic groups, or school groups? How [...] Sign Reading Time Taken Comments Blood Pressure 150/82 08/31/2020 9:01 AM CDT Pulse 62 08/31/2020 9:01 AM CDT Temperature 36.6 ??C (97.9 ??F) 08/31/2020 9:01 AM CDT Respiratory Rate - - Oxygen Saturation - - Inhaled Oxygen Concentration - - Weight 52.1 kg (114 lb 13.8 oz) 08/31/2020 9:01 AM CDT Height - - Body Mass Index 19.04 08/17/2020 10:11 AM CDT documented in this encounter Progress Notes Lolly Han, Pharm.D., R.Ph. - 08/31/2020 9:10 AM CDT Toxicity Check Visit Collaborating Provider Kimberly Gann Reason for Visit Ms. Bull is here in preparation for day 1 cycle 6 of FOLFIRINOX therapy Oncology History Malignant Neoplasm [...] periaortic, and mesenteric lymph nodes was reported ([facility] review). 3.) 05/25/2020 CA 19-9 178 [...] ) Start Date: 06/08/2020 Interval History by Pharmacist Mrs. العراقي returns to clinic today for toxicity and lab check prior to cycle 6 of FOLFIRINOX. She wasdelayed 2 weeks due to grade 3 fatigue, anorexia and hypercalcemia. Since last seen, she has been feeling much better. She increased her oral fluid intake to ~8 glasses of water per day and her appetite has improved. Her energy is much better. She states that she wouldn't go hiking, but her legs don'tfeel week and she's able to do things around the house. She takes compazine in the morning and nightfor nausea. She denies pain, swelling, dyspnea, fevers, night sweats, dizziness, and rash. She has cold sensitivity that lasts for about 9-10 days. She has mouth sores that she notices about 5-6 days after chemo. She is using biotene for this and we briefly discussed salt/soda rinses and peroxyl. She is having about 2 bowel movements per day. Systems Review The patient is seen today, 08/31/2020, and reports the following: General - feeling better GI - ~2 bowel movements per day Neuro - 9-10 days of cold sensitivity Weight Today: 52.1 kg Labs reviewed by Pharmacist. No renal or hepatic adjustments are indicated Medication list reviewed & updated by Pharmacist. Did not identify drug-drug interactions of clinical significance Plan I have updated one of our care team providers, Kimberly Rios NP, regarding Ms. العراقي assessment andlabs. She had a 2-week delay in therapy due to grade 3 fatigue and decreased oral intake. Overall, she is feeling much better at this time and is ready to start chemotherapy again. Dr. Vivar planned to dose reduce her 5-FU by 20% with this cycle. No other changes are indicated at this time. She asked about Creon, which she had been prescribed at the beginning of July 2020. She didn't pick this up as she wanted to try diet changes first. She has not noticed a significant improvement as it has been difficult to cut down on her fat intake. She states that one of her major barriers to taking Creon was having to take this 2 hours prior to a meal. I reviewed with her that she should take Creon with meals rather than waiting 2 hours to take this medication. She states that she will last picker the prescription and try taking it this week. She was encouraged to contact our team at any time with questions or concerns. Ms. العراقي expressed understanding and agrees with the plan. She has no further questions or concerns at this time. Lolly Han Pharm.D., R.Ph. 08/31/2020 9:55 AM CDT documented in this encounter Plan of Treatment Upcoming Encounters Date Type Specialty Care Team Description 11/19/2021 Clinical Communication Admitting/Central Scheduling 11/23/2021 Comprehensive Visit Neurology Kenji Zaldivar M.D. [address] [place] [phone] documented as of this encounter Visit Diagnoses Diagnosis Malignant Neoplasm Of Pancreas Adenocarc inoma (HCC) documented in this encounter
--- OUTSIDE RECORDS SUMMARY | 2021-11-03 07:07 | XMS_ITS | Encounter Summary ---
:1940 Author Organization [facility] Address [address] [place] [address] Care Team Providers Name Role Phone Unavailable Primary Care Provider Unavailable Reason for Visit Reason Comments [facility] Encounter Details Date Type Department Care Team Description 08/14/2020 Clinical Communication Division of Konrad Cid OS M Endocrinology in M.D. [place], [place] [address] [place] [address] [address] [place] [phone] Social History Tobacco Use Types Packs/Day Years [...] or relatives? How often do you attend religion or More than 4 times per year 06/19/2021 buddhism services? Do you belong to any clubs or Yes 06/19/2021 organizations such as religion groups, unions, fraternal or athletic groups, or [...] Notes Telephone Encounter - Carol Sullivan - 08/14/2020 8:12 AM CDT We received outside records on your patient from [employer] . You last saw the patient on 07/27/2020. The records are viewable in document viewer. Thank you, Carol Blake, Physician President [phone] documented in this encounter Plan of Treatment Upcoming Encounters Date Type Specialty Care Team Description 11/19/2021 Clinical Communication Admitting/Central Scheduling 11/23/2021 Comprehensive Visit Neurology Kenji Zaldivar M.D. [address] [place] [address] documented as of this encounter Visit Diagnoses Not on filedocumented in this encounter
--- OUTSIDE RECORDS SUMMARY | 2021-11-03 07:07 | XMS_ITS | Encounter Summary ---
:1940 Author Organization [facility] Address [address] [place] [address] Care Team Providers Name Role Phone Unavailable Primary Care Provider Unavailable Reason for Referral Outpatient (Routine) - Closed Specialty Diagnoses / Procedures Referred By Contact Refer red To Contact Diagnoses Malignant Neoplasm Of Pancreas Adenocarcinoma (HCC) Kimberly Rios APRN, [facility] Procedures ONC Pump Disconnect C.N.P., M.S. [address] [place] [address] Referral ID Status Reason Start Date Expiration Date Visits Requ ested Visits Authorized [id number] Closed 09/01/2020 09/01/2021 5 5 Encounter Details Date Type Department Care Team Description 09/01/2020 Orders Only [facility] Malignant Ne oplasm Of Infusion Therapy in R.N. Pancreas Adenocarcinoma [place], [place] 10[address] [facility] (HCC) (Primary Dx) [address] [place] [phone] Social History Tobacco Use Types Packs/Day Years [...] or relatives? How often do you attend mormon or More than 4 times per year 06/19/2021 adventist services? Do you belong to any clubs or Yes 06/19/2021 organizations such as mormon groups, unions, fraternal or athletic groups, or [...] or slept in a long-term (including now)? Sex Assigned at Date Recorded Female 07/03/2017 2:07 PM CDT documented as of this encounter Plan of Treatment Upcoming Encounters Date Type Specialty Care Team Description 11/19/2021 Clinical Communication Admitting/Central Scheduling 11/23/2021 Comprehensive Visit Neurology Kenji Zaldivar M.D. [address] [place] [address] Scheduled Orders Name Type Priority Associated Diagnoses Order S chedule ONC Pump Disconnect Procedures Routine Malignant Neoplasm Of 5 Occurrences Pancreas Adenocarcinoma star ting 09/01/2020 (HCC) until 4 documented as of this encounter Visit Diagnoses Diagnosis Malignant Neoplasm Of Pancreas Adenocarc inoma (HCC) - Primary documented in this encounter
--- OUTSIDE RECORDS SUMMARY | 2021-11-03 07:07 | XMS_ITS | Encounter Summary ---
:1940 Author Organization [facility] Address [address] [place] [address] Care Team Providers Name Role Phone Unavailable Primary Care Provider Unavailable Encounter Details Date Type Department Care Team Description 09/05/2020 Clinical Communication Department of Mikal Gomez Oncology issa Rosado M.D. [place], [place] [address] [facility] [address] [place] [phone] Social History Tobacco Use Types Packs/Day Years [...] or slept in a chcf (including now)? Sex Assigned at Date Recorded Female 07/03/2017 2:07 PM CDT documented as of this encounter Miscellaneous Notes Telephone Encounter - Mikal Gomez M.D. - 09/05/2020 7:00 PM CDT Patient called asking if it was safe to take loperamide with Creon. I advised her that this would besafe and she could take them on the same day. documented in this encounter Plan of Treatment Upcoming Encounters Date Type Specialty Care Team Description 11/19/2021 Clinical Communication Admitting/Central Scheduling 11/23/2021 Comprehensive Visit Neurology Kenji Zaldivar M.D. [address] [place] [address] documented as of this encounter Visit Diagnoses Not on filedocumented in this encounter
--- OUTSIDE RECORDS SUMMARY | 2021-11-03 07:07 | XMS_ITS | Encounter Summary ---
:1940 Author Organization [facility] Address [address] [place] [address] Care Team Providers Name Role Phone Unavailable Primary Care Provider Unavailable Reason for Visit Outpatient (Routine) - Closed Specialty Diagnoses / Procedures Referred By Contact Refer red To Contact Diagnoses Malignant Neoplasm Of Pancreas Adenocarcinoma (HCC) Nova Vivar M.B.B.S. [facility] Procedures ONC Pump Disconnect [address] [place] [address] Referral ID Status Reason Start Date Expiration Date Visits Requ ested Visits Authorized [id number] Closed 08/04/2020 08/04/2021 1 1 Encounter Details Date Type Department Care Team Description 08/07/2020 Infusion Department of Infusion Nova Vivar Malig nant Neoplasm Of Therapy in Sera DonaldsonB.S. Pancreas Adenocarcinoma [place] [address] [facility] (HCC) (Primary Dx) [address] [place] [address] [facility] [phone] Social History Tobacco Use Types Packs/Day [...] or relatives? How often do you attend uatsdin or More than 4 times per year 06/19/2021 pentecostal services? Do you belong to any clubs or Yes 06/19/2021 organizations such as uatsdin groups, unions, fraMarqeta or athletic groups, or school groups? How [...] Comprehensive Visit Neurology Kenji Zaldivar M.D. [address] [place] [phone] documented as of this encounter Visit Diagnoses Diagnosis Malignant Neoplasm Of Pancreas Adenocarc inoma (HCC) - Primary documented in this encounter Administered Medications Inactive Administered Medications - up to 3 most recent administrations Medication Order MAR Action Action Date Dose Rate Site heparin flush 500 Units Given 08/07/2020 8:42 AM CDT 500 Units 500 Units, intra-catheter, As needed, line care, Starting on Mon08/07/20 at 0834, When no infusion to maintain patency: For IVAD accessed, not in use, and/or prior to hospital discharge, flush every 7 days after 0.9% preservative-free NaCL flush. For IVAD NOT accessed or used, flush every 4 weeks after 0.9% preservative-free NaCL flush. sodium chloride 0.9 % injection 20 mL Given 08/07/2020 8:42 AM CDT 20 mL 20 mL, intra-catheter, As needed, line care, Starting on Mon08/07/20 at 0834, When IVAD Accessed and in Use: Flush post blood transfusion or post blood sampling. documented in this encounter
--- OUTSIDE RECORDS SUMMARY | 2021-11-03 07:07 | XMS_ITS | Encounter Summary ---
:1940 Author Organization [facility] Address [address] [place] [address] Care Team Providers Name Role Phone Unavailable Primary Care Provider Unavailable Reason for Visit Episode Based Medications (Routine) - Authorized Specialty Diagnoses / Procedures Referred By Contact Refer red To Contact Diagnoses Malignant Neoplasm Of Pancreas Adenocarcinoma (HCC) Neutropenia Chemotherapy Induced (HCC) Kimberly Rios, Rsmarleen Onc Coy HIGH C.N.P., M.S. [address] [place] [phone] Referral ID Status Reason Start Date Expiration Date Visits V isits Requested Authorized [id number] Authorized 06/03/2020 06/03/2021 99 99 Encounter Details Date Type Department Care Team Description 09/01/2020 Infusion Department of Oncology Nova Vivar Malig nant Neoplasm Of in [facility] MInnaB.S. Pancreas Adenocarcinoma [address] [facility] [address] [place] [address] (HCC) (Primary Dx) [place] [phone] Social History Tobacco Use Types Packs/Day Years [...] Do you belong to any clubs or [employer] 06/19/2021 organizations such as restoration groups, unions, [...] or slept in a assisted (including now)? Sex Assigned at Date Recorded Female 07/03/2017 2:07 PM CDT documented as of this encounter Last Filed Vital Signs Vital Sign Reading Time Taken Comments Blood Pressure 145/73 09/01/2020 8:43 AM CDT Pulse 76 09/01/2020 8:43 AM CDT Temperature 36.9 ??C (98.4 ??F) 09/01/2020 8:43 AM CDT Respiratory Rate - - Oxygen Saturation - - Inhaled Oxygen Concentration - - Weight 51.9 kg (114 lb 8.5 oz) 09/01/2020 8:43 AM CDT s hoes on Height - - Body Mass Index 18.99 08/17/2020 10:11 AM CDT documented in this encounter Plan of Treatment Upcoming Encounters Date Type Specialty Care Team Description 11/19/2021 Clinical Communication Admitting/Central Scheduling 11/23/2021 Comprehensive Visit Neurology Kenji Zaldivar M.D. [address] [place] [address] documented as of this encounter Visit Diagnoses Diagnosis Malignant Neoplasm Of Pancreas Adenocarc inoma (HCC) - Primary documented in this encounter Administered Medications Inactive Administered Medications - up to 3 most recent administrations Medication Order MAR Action Action Date Dose Rate Site atropine injection 0.25 mg Given 09/01/2020 12:17 0.25 mg Right Upper 0.25 mg, subcutaneous, PM CDT Ab domen Once, On Mon09/01/20 at 1130, For 1 dose, Give prior to Irinotecan. Give subcutaneously if unable to give IV. Patient prefers SQ. dexamethasone in NaCl 0.9% IVPB 12 New Bag 09/01/2020 9:29 AM CDT 12 mg 200 mL/hr mg (DECADRON) 12 mg, intravenous, at 200 mL/hr, Administer over 15 Minutes, Once, On Mon09/01/20 at 0900, For 1 dose, Refrigerate fluorouraciL 3,000 mg in NaCl 0.9% 92 Given 09/01/2020 1:57 PM CDT 3,000 mg 2 mL/hr mL IVPB (ADRUCIL) 3,000 mg (rounded from 3,072 mg = 1,920 mg/m2 ? 1.6 m2 Treatment Plan BSA from Measured weight), intravenous, at 2 mL/hr, Administer over 46 Hours, over 46 hours, First dose on Mon09/01/20 at 1330, For 1 dose, Infuse at 2 mL/hr for 46 hours continuous infusion via CADD pump # [id number] fosaprepitant 150 mg in NaCl 0.9% New Bag 09/01/2020 9:45 AM C DT 150 mg 510 mL/hr IVPB (EMEND) 150 mg, intravenous, at 510 mL/hr, Administer over 30 Minutes, Once, On Mon09/01/20 at 0900, For 1 dose, Incompatible with solutions containing divalent cations (calcium, magnesium) including lactated Ringer's solution. irinotecan 220 mg in D5W 559 mL New Bag 09/01/2020 12:19 PM CD T 220 mg 373 mL/hr IVPB (CAMPTOSAR) 220 mg (rounded from 218.88 mg = 144 mg/m2 ? 1.52 m2 Order-specific BSA), intravenous, at 373 mL/hr, Administer over 90 Minutes, Once, On Mon09/01/20 at 1200, For 1 dose, May be given via y-site with leucovorin. Protect from light. leucovorin 650 mg in D5W 307.5 mL New Bag 09/01/2020 12:21 PM CDT 650 mg 205 mL/hr IVPB 650 mg (rounded from 640 mg = 400 mg/m2 ? 1.6 m2 Treatment Plan BSA from Measured weight), intravenous, at 205 mL/hr, Administer over 90 Minutes, Once, On Mon09/01/20 at 1200, For 1 dose, Can be given via y-site with irinotecan. NaCl 0.9 % bolus 1,000 mL Restarted 09/01/2020 12:17 PM CDT 1000 mL/hr 1,000 mL, intravenous, at 1,000 mL/hr, Administer over 1 Hours, Once, On Mon09/01/20 at 0900, For 1 dose New 09/01/2020 9:06 AM CDT 1,000 mL 1000 mL/hr ondansetron in NaCl 0.9% IVPB 16 mg New 09/01/2020 9:08 AM CDT 16 mg 232 mL/hr (ZOFRAN) 16 mg, intravenous, at 232 mL/hr, Administer over 15 Minutes, Once, On Mon09/01/20 at 0900, For 1 dose oxaliplatin 100 mg in D5W 295 mL New Bag 09/01/2020 10:15 AM C DT 100 mg 148 mL/hr IVPB (ELOXATIN) 100 mg (rounded from 108.8 mg = 68 mg/m2 ? 1.6 m2 Treatment Plan BSA from Measured weight), intravenous, at 148 mL/hr, Administer over 2 Hours, Once, On Mon09/01/20 at 1000, For 1 dose, Flush infusion line with dextrose 5 % in water prior to administration of any concomitant medication. sodium chloride 0.9 % injection 10 mL Given 09/01/2020 9:06 AM CDT 10 mL 10 mL, intra-catheter, As needed, line care, Starting on Mon09/01/20 at 0852, When IVAD Accessed and in Use: Flush prior to and following infusion, between multiple consecutive infusions, and prior to blood sampling. documented in this encounter
--- OUTSIDE RECORDS SUMMARY | 2021-11-03 07:07 | XMS_ITS | Encounter Summary ---
:1940 Author Organization [facility] Address [address] [place] [id number] Care Team Providers Name Role Phone Unavailable Primary Care Provider Unavailable Reason for Referral Outpatient (Routine) Specialty Diagnoses / Procedures Referred By Contact Refer red To Contact Oncology Nova Vivar M.B.B.S . [address] [phone] Referral ID Status Reason Start Date Expiration Date Visits Requ ested Visits Authorized Outpatient (Routine) Specialty Diagnoses / Procedures Referred By Contact Refer red To Contact Oncology Kimberly Rios APRN, C.[place] [address] [place] [phone] Referral ID Status Reason Start Date Expiration Date Visits Requ ested Visits Authorized Reason for Visit Episode Based Medications (Routine) - Authorized Specialty Diagnoses / Procedures Referred By Contact Refer red To Contact Diagnoses Malignant Neoplasm Of Pancreas Adenocarcinoma (HCC) Neutropenia Chemotherapy Induced (HCC) Kimberly Rios, Rst Onc Harleen Cespedes APRN.N.Hossein.[facility] [address] [place] [phone] Referral ID Status Reason Start Date Expiration Date Visits V isits Requested Authorized [id number] Authorized 06/03/2020 06/03/2021 99 99 Encounter Details Date Type Department Care Team Description 08/17/2020 Office Visit Department of Nova Vivar, Malignant Neop lasm Of Pancreas Adenocarcinoma (HCC) (Primary Dx); Oncology in .B.B.S. Hypercalcemia; [place], [place] [address] [facility] Hypoparathyroidism (HCC); [address] [place], [place] [phone] Social History Tobacco Use Types Packs/Day Years [...] or relatives? How often do you attend taoism or More than 4 times per year 06/19/2021 gnosticism services? Do you belong to any clubs or Yes 06/19/2021 organizations such as taoism groups, unions, fraternal or athletic groups, or [...] [place] [facility] (including now)? Sex Assigned at Date Recorded Female 07/03/2017 2:07 PM CDT documented as of this encounter Last Filed Vital Signs Vital Sign Reading Time Taken Comments Blood Pressure 156/87 08/17/2020 10:11 AM CDT Pulse 71 08/17/2020 10:11 AM CDT Temperature 36.4 ??C (97.5 ??F) 08/17/2020 10:11 AM CDT Respiratory Rate 16 08/17/2020 10:11 AM CDT Oxygen Saturation 100% 08/17/2020 10:11 AM CDT Inhaled Oxygen Concentration - - Weight 51 kg (112 lb 7 oz) 08/17/2020 10:11 AM CDT Height 165.4 cm (5' 5.12) 08/17/2020 10:11 AM CDT Body Mass Index 18.64 08/17/2020 10:11 AM CDT documented in this encounter Progress Notes Nova Vivar M.B.B.S. - 08/17/2020 10:20 AM CDT CHIEF COMPLAINT/PURPOSE OF VISIT: Metastatic pancreas cancer with lymphadenopathy. CURRENT TREATMENT/MANAGEMENT PLAN FOLFIRINOX PRIMARY CARE PHYSICIAN No primary care provider on file. REQUESTING PROVIDER Kimberly Rios APRN, C.N.P., M.S. 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 Kimberly Rios APRN, [...] periaortic, and mesenteric lymph nodes was reported ([facility] review). 3.) 05/25/2020 CA [id number] [...] INTERVAL HISTORY: Ms. العراقي returns today for follow-up. She continues to not do well with the chemotherapy with fatigue, nausea and poor oral intake over last 2 weeks. She also acknowledge that she had not been drinkingadequate fluids. Dr. Cid from Endocrinology has been helping her to adjust her calcium supplementand calcitriol to manage her hypercalcemia. ROS: Pertinent items are noted in HPI; all other review of systems were negative. Rate your distress: 0 (no distress) VITAL SIGNS: Vitals: 08/17/20 1011 BP: 156/87 BP Location: Right arm Patient Position: Sitting Pulse: 71 Resp: 16 Temp: 36.4 ??C TempSrc: Tympanic SpO2: 100% Weight: 51 kg Height: 165.4 cm PHYSICAL EXAM Vitals reviewed. Constitutional General: She is not in acute distress. Appearance: She is not toxic-appearing. Eyes General: No scleral icterus. Conjunctiva/sclera: Conjunctivae normal. Cardiovascular Rate and Rhythm: Normal rate. Pulmonary Effort: Pulmonary effort is normal. No respiratory distress. Musculoskeletal Right ankle: No swelling. Left ankle: No swelling. Neurological Mental Status: She is alert and oriented to person, place, and time. DIAGNOSTICS: I reviewed the imaging studies and agree with the interpretation as recorded. I reviewed the pertinent laboratory and diagnostic data. ASSESSMENT/PLAN: #1 Malignant Neoplasm Of Pancreas Adenocarcinoma (HCC) #2 Hypercalcemia #3 Hypoparathyroidism (HCC) #4 Insufficiency Renal Ms. العراقي is a 80 y.o. female with metastatic pancreas cancer with extensive abdominal lymphadenopathy currently on FOLFIRINOX. Patient also has hypoparathyroidism and on supplementation, and followed by Endocrinology here. Recently, she started developing hypercalcemia and Dr. Cid has been assisting with adjustment of her calcium supplement and calcitriol. She returns today for evaluation and her blood tests showed total calcium 13.8 with normal albumin (4.4). She is asymptomatic and her nausea is likely secondary toher underlying malignancy and chemo. I suspect her hypercalcemia may be related to renal dysfunctionfrom poor oral intake. In addition to her ongoing fatigue over the last 2 weeks and continuous weight loss, I recommended skipping this cycle to give her body an opportunity to recover. I also encouraged her to increase her oral fluid intake. She is agreeable to received 1 L of normal saline today to h elp with her renal dysfunction and hypercalcemia. Dr. Cid will be contacting her to help adjust the hypercalcemia. We will plan to see her back in 2 weeks with tox check prior to resuming chemotherapy. She and her were given opportunity to ask questions, and they expressed understanding of theplan outlined above. PATIENT EDUCATION Ready to learn, no apparent learning barriers were identified; learning preferences include listening. Explained diagnosis and treatment plan; patient expressed understanding of the content. ADMINISTRATIVE BILLING I personally spent a total 30 minutes on the evaluation, development of the management plan, reviewing and setting of the chemotherapy plan, discussion/education and coordination of care as described above. This include [id number]-zz-onnm and non fbcz-aa-[id number] time. documented in this encounter Plan of Treatment Upcoming Encounters Date Type Specialty Care Team Description 11/19/2021 Clinical Communication Admitting/Central Scheduling 11/23/2021 Comprehensive Visit Neurology Kenji Zaldivar M.D. [address] [place] [address] Scheduled Referrals Name Type Priority Associated Diagnoses Order S [facility] Oncology office Outpatient Referral Routine Malignant Neoplasm Of Expected: visit (clinic) Pancreas Adenocarcinoma , (HCC) Expires: 08/31/2021 Oncology office Outpatient Referral Routine Malignant Neoplasm Of Expected: visit (clinic) Pancreas Adenocarcinoma , (HCC) Expires: 09/14/2021 documented as of this encounter Results Bilirubin, Direct (09/29/2020 6:48 AM CDT) athologist Signature Bilirubin, <0.2 0.0 - 0.3 09/29/2020 DTL Direct, S mg/dL 7:47 AM CDT Specimen Anatomical Collection Method Collection Time Receive d Time (Source) Location / / Volume Laterality Blood (Blood, 09/29/2020 6:48 AM 09/30/19 7:19 Venous) CDT AM CDT Nova Allen LAB BLOOD ADD-ON Performing Organization Address City/State/ZIP Code Phon e Number [facility] - [address] [place], [place] [address] [facility] [place] [address] [facility] [address] (ABNORMAL) Comprehensive Metabolic Panel (09/29/2020 6:48 AM [...] 09/29/2020 DTL Black/ mL/min/BSA 7:41 AM CDT Filipino Comment: ----ADDITIONAL INFORMATION---- Estimated GFR calculated using [...] 09/30/19 7:14 Venous) CDT AM CDT Nova McnealS. LAB BLOOD ADD-ON Performing Organization Address City/State/ZIP Code Phon e Number [facility] - [address] [place] [phone] [facility] [place] [address] [facility] [address] [facility] (ABNORMAL) CBC with Differential, Blood (09/29/2020 6:48 AM CDT) [facility] gist Method Time Signature Hemoglobin 9.9 (L) [...] Laterality Blood (Blood, 09/29/2020 6:48 AM 09/30/19 7:01 Venous) CDT AM CDT Nova ZamoraB.S. LAB BLOOD ADD-ON Performing Organization Address City/State/ZIP Code Phon e Number [facility] - [address] [place], [place] [address] [facility] [place] [address] [facility] [address] Magnesium (09/29/2020 6:48 AM CDT) P athologist Signature Magnesium, S 2.2 1.7 - 2.3 09/29/2020 DTL mg/dL 7:41 AM CDT Specimen Anatomical Collection Method Collection Time Receive d Time (Source) Location / / Volume Laterality Blood (Blood, 09/29/2020 6:48 AM 09/30/19 7:14 Venous) CDT AM CDT Nova Allen LAB BLOOD ADD-ON Performing Organization Address City/State/ZIP Code Phon e Number [facility] - [address] [place], [place] [address] [facility] [place] [address] [facility] [address] [facility] (ABNORMAL) CBC with Differential, Blood (09/14/2020 8:34 AM CDT) [facility] Method Time Signature Hemoglobin 9.7 (L) [...] ZamoraB.S. LAB BLOOD ADD-ON Performing Organization Address [facility] Phon e Number [facility] - [address] [place], [place] [address] [place] [address] [address] Bilirubin, Direct (09/14/2020 8:33 AM CDT) athologist Signature Bilirubin, <0.2 0.0 - 0.3 09/14/2020 DTL Direct, S mg/dL 10:21 AM CDT Specimen Anatomical Collection Method Collection Time Receive d Time (Source) Location / / Volume Laterality Blood (Blood, 09/14/2020 8:33 AM 09/15/19 8:55 Venous) CDT AM CDT Nova ZamoraB.S. LAB BLOOD ADD-ON Performing Organization Address City/[facility] Phon e Number [address] (ABNORMAL) Comprehensive Metabolic Panel (09/14/2020 8:33 AM [...] 09/14/2020 DTL Black/ mL/min/BSA 10:22 AM CDT Filipino Comment: ----ADDITIONAL INFORMATION---- Estimated GFR calculated using [...] 09/15/19 8:55 Venous) CDT AM CDT Nova McnealSChico LAB BLOOD ADD-ON Performing Organization Address City/State/ZIP Code Phon e Number [facility] - [address] [place], [place] [address] [facility] [place] [address] [facility] [address] Magnesium (09/14/2020 8:33 AM CDT) athologist Signature Magnesium, S 2.1 1.7 - 2.3 09/14/2020 DTL mg/dL 10:22 AM CDT Specimen Anatomical Collection Method Collection Time Receive d Time (Source) Location / / Volume Laterality Blood (Blood, 09/14/2020 8:33 AM 09/15/19 8:55 Venous) CDT AM CDT Nova ZamoraB.S. LAB BLOOD ADD-ON Performing Organization Address City/[facility] Phon e Number [facility] - [address] [place], [place] [address] [facility] [place] [address] [facility] [address] (ABNORMAL) Carbohydrate Antigen 19-9 (CA 19-9) (09/14/2020 8:33 AM CDT) Analysis Performed At Patho logist Time Signature Carbohydrate Ag 57 (H) <35 U/mL 09/14/2020 [facility] 19-9, S 1:47 PM CDT Comment: ----ADDITIONAL INFORMATION---- The testing method is an immunoenzymatic assay manufactured by [employer] and performed on the Green Plug DxI 800. ? Values obtained with different [...] ZamoraB.S. LAB BLOOD ADD-ON Performing Organization Address City/[facility] Phon e Number [facility] [address] [place] [phone] [facility] [place] [address] Laboratory Medicine and Pathology [address] RUIZ Bilirubin, Direct (08/31/2020 7:27 AM CDT) athologist Signature Bilirubin, <0.2 0.0 - 0.3 08/31/2020 DTL Direct, S mg/dL 8:29 AM CDT Specimen Anatomical Collection Method Collection Time Receive d Time (Source) Location / / Volume Laterality Blood (Blood, 08/31/2020 7:27 AM 09/01/19 7:38 Venous) CDT AM CDT Nova Allen LAB BLOOD ADD-ON Performing Organization Address City/State/ZIP Code Phon e Number [facility] - [address] [place] [address] [facility] [place] [address] [facility] 200 [facility] Comprehensive Metabolic Panel (08/31/2020 7:27 AM CDT) P athologist Signature Potassium, S 4.1 3.6 - 5.2 08/31/2020 DTL mmol/L 8:28 AM CDT Sodium, S 142 135 - 145 08/31/2020 DTL mmol/L 8:28 AM CDT Chloride, S 104 98 - 107 08/31/2020 DTL mmol/L 8:28 AM CDT Bicarbonate, S 27 22 - 29 08/31/2020 DTL mmol/L 8:28 AM CDT Anion Gap 11 7 - 15 08/31/2020 DTL 8:28 AM CDT BUN (Blood Urea 9 6 - 21 08/31/2020 DTL Nitrogen), S mg/dL 8:28 AM CDT Creatinine, S 0.86 0.59 - 1.04 08/31/2020 DTL mg/dL 8:28 AM CDT eGFR-Non 65 >=60 08/31/2020 DTL Black/ mL/min/BSA 8:28 AM CDT Filipino Comment: ----ADDITIONAL INFORMATION---- Estimated GFR calculated using the 2009 CKD_EPI creatinine equation. eGFR-Black/ 75 >=60 mL/min/BSA 2020 8:28 AM CDT DTL Comment: ----ADDITIONAL INFORMATION---- Estimated GFR calculated using the 2009 CKD_EPI creatinine equation. Calcium, Total, S 9.1 8.8 - 10.2 mg/dL 08/31/2020 8:28 AM CDT DTL Glucose, S 85 70 - 140 mg/dL 08/31/2020 8:28 AM CDT D TL Protein, Total, S 6.3 6.3 - 7.9 g/dL 08/31/2020 8:28 A M CDT DTL Albumin, S 4.4 3.5 - 5.0 g/dL 08/31/2020 8:28 AM CDT D TL Aspartate Aminotransferase (AST), 22 8 - 43 U/L 08/31 8:28 AM CDT DTL S Alkaline Phosphatase, S 63 35 - 104 U/L 08/31/2020 8: 28 AM CDT DTL Alanine Aminotransferase (ALT), S 15 7 - 45 U/L 08/31 8:28 AM CDT DTL Bilirubin, Total, S 0.2 <=1.2 mg/dL 08/31/2020 8:28 AM CDT DTL Specimen Anatomical Collection Method Collection Time Receive d Time (Source) Location / / Volume Laterality Blood (Blood, 08/31/2020 7:27 AM 09/01/19 7:38 Venous) CDT AM CDT Nova ZamoraBChicoS. LAB BLOOD ADD-ON Performing Organization Address City/State/[facility] Code Phon e Number [facility] - [address] [place] [phone] [facility] [place] [address] [facility] 200 [facility] (ABNORMAL) CBC with Differential, Blood (08/31/2020 7:27 AM CDT) [facility] gist Method Time Signature Hemoglobin 9.8 (L) 11.6 - 08/31/2020 DTL 15.0 g/dL 8:28 AM CDT Hematocrit 30.3 (L) 35.5 - 08/31/2020 DTL 44.9 % 8:28 AM CDT Erythrocytes 2.94 (L) 3.92 - 08/31/2020 DTL 5.13 8:28 AM CDT x10(12)/L MCV 103.1 (H) 78.2 - 08/31/2020 DTL 97.9 fL 8:28 AM CDT RBC Distrib Width 16.8 (H) 12.2 - 08/31/2020 DTL 16.1 % 8:28 AM CDT Platelet Count 256 157 - 371 08/31/2020 DTL x10(9)/L 8:28 AM CDT Leukocytes 5.6 3.4 - 9.6 08/31/2020 DTL x10(9)/L 8:28 AM CDT Neutrophils 3.90 1.56 - 08/31/2020 DTL 6.45 8:28 AM CDT x10(9)/L Lymphocytes 0.68 (L) 0.95 - 08/31/2020 DTL 3.07 8:28 AM CDT x10(9)/L Monocytes 0.81 0.26 - 08/31/2020 DTL 0.81 8:28 AM CDT x10(9)/L Eosinophils 0.11 0.03 - 08/31/2020 DTL 0.48 8:28 AM CDT x10(9)/L Basophils 0.06 0.01 - 08/31/2020 DTL 0.08 8:28 AM CDT x10(9)/L Specimen Anatomical Collection Method Collection Time Receive d Time (Source) Location / / Volume Laterality Blood (Blood, 08/31/2020 7:27 AM 09/01/19 21 8:01 Venous) CDT AM CDT Nova ZamoraB.S. LAB BLOOD ADD-ON Performing Organization Address City/State/[facility] Code Phon e Number [facility] [address] Magnesium (08/31/2020 7:27 AM CDT) P athologist Signature Magnesium, S 2.0 1.7 - 2.3 08/31/2020 DTL mg/dL 8:28 AM CDT Specimen Anatomical Collection Method Collection Time Receive d Time (Source) Location / / Volume Laterality Blood (Blood, 08/31/2020 7:27 AM 09/01/19 21 7:38 Venous) CDT AM CDT Nova ZamoraB.S. LAB BLOOD ADD-ON Performing Organization Address City/State/[facility] Code Phon e Number [facility] [address] documented in this encounter Visit Diagnoses Diagnosis Malignant Neoplasm Of Pancreas Adenocarc inoma (HCC) - Primary Hypercalcemia Hypoparathyroidism (HCC) Insufficiency Renal documented in this encounter
--- OUTSIDE RECORDS SUMMARY | 2021-11-03 07:07 | XMS_ITS | Encounter Summary ---
:1940 Author Organization [facility] Address [address] [place] [address] Care Team Providers Name Role Phone Unavailable Primary Care Provider Unavailable Encounter Details Date Type Department Care Team Description 08/14/2020 Documentation Division of Endocrinology in [place], [place] K[place] [address] [facility] [address] [place] [address] [place], [place] [phone] (Wo rk) Social History Tobacco Use Types [...] encounter Progress Notes Konrad Cid M.D. - 08/14/2020 3:10 PM CDT Outside medical records received for review. The patient's laboratory studies from [facility] on August 13, 2020, at 10:24 a.m. showed her serum calcium increased at 12.0 mg/dL (normal, 8.5 to 10.5), without further laboratory testing. Her most recent serum calcium was 8.4 mg/dL on August 06, 2020. Clearly, she has responded to5 calcium tablets and 4 calcitriol tablets each day. Given the rapid increase in her serum calcium without further lowering of serum calcium, she is advised to reduce her calcium intake to 3 calcium tablets a day and 2 calcitriol tablets each day. No additional recommendations for now. Her serum calcium will be rechecked early next week to make sure that it has come back into the normal range. In light of these findings, no additional recommendations for now. Konrad Cid M.D. CT CT Job ID: [id number] documented in this encounter Plan of Treatment Upcoming Encounters Date Type Specialty Care Team Description 11/19/2021 Clinical Communication Admitting/Central Scheduling 11/23/2021 Comprehensive Visit Neurology Kenji Zaldivar M.D. [address] [place] [address] documented as of this encounter Visit Diagnoses Not on filedocumented in this encounter
--- OUTSIDE RECORDS SUMMARY | 2021-11-03 07:07 | XMS_ITS | Encounter Summary ---
:1940 Author Organization [facility] Address [address] [place] [address] Care Team Providers Name Role Phone Unavailable Primary Care Provider Unavailable Reason for Visit Outpatient (Routine) - Closed Specialty Diagnoses / Procedures Referred By Contact Refer red To Contact Diagnoses Malignant Neoplasm Of Pancreas Adenocarcinoma (HCC) Nova Vivar M.B.B.S. [facility] Procedures ONC Pump Disconnect [address] [place], [place] [phone] Referral ID Status Reason Start Date Expiration Date Visits Requ ested Visits Authorized [id number] Closed 08/06/2020 08/06/2021 1 1 Encounter Details Date Type Department Care Team Description 08/06/2020 Infusion Department of Oncology Nova Vivar Malig nant Neoplasm Of in [facility] M.B.B.S. Pancreas Adenocarcinoma [address] (HCC) (Primary Dx) [place] [phone] Social History Tobacco Use Types Packs/Day [...] More than 4 times per year 06/19/2021 confucianism services? Do you belong to any clubs [...] Comprehensive Visit Neurology Kenji Zaldivar M.D. [address] [place] [address] documented as of this encounter Visit Diagnoses Diagnosis Malignant Neoplasm Of Pancreas Adenocarc inoma (HCC) - Primary documented in this encounter Administered Medications Inactive Administered Medications - up to 3 most recent administrations Medication Order MAR Action Action Date Dose Rate Site fluorouraciL 1,200 mg in Given 08/06/2020 10:52 AM 1,200 mg 1. 2 mL/hr NaCl 0.9% 27.6 mL IVPB - for CDT home use (ADRUCIL) 1,200 mg, intravenous, at 1.2 mL/hr, Administer over 23 Hours, Once, On Laila 08/06/20 at 1045, For 1 dose, Infuse at 1.2 mL/hr for 23 hours continuous infusion via CADD pump # [id number] sodium chloride 0.9 % injection 10 mL Given 08/06/2020 10:12 AM CDT 10 mL 10 mL, intra-catheter, As needed, line care, Starting on Laila 08/06/20 at 1002, When IVAD Accessed and in Use: Flush prior to and following infusion, between multiple consecutive infusions, and prior to blood sampling. documented in this encounter
--- OUTSIDE RECORDS SUMMARY | 2021-11-03 07:07 | XMS_ITS | Encounter Summary ---
:1940 Author Organization [facility] Address [address] [place] [address] Care Team Providers Name Role Phone Unavailable Primary Care Provider Unavailable Reason for Visit Reason Comments Med Refill Encounter Details Date Type Department Care Team Description 09/01/2020 Refill Division of Endocrinology in Konrad Styles M.D. Med Refill [place], [place] [address] [facility] [address] [place] [phone] (Wo rk) Social History Tobacco Use Types [...] this encounter Miscellaneous Notes Telephone Encounter - Emilio Antonio - 09/01/2020 5:18 PM CDT Requesting refills for the following prescriptions-- Did the request come from a pharmacy or the patient? Patient - she stated her local care provider felt Dr Cid should prescribe since he follows her levels Name of the pharmacy: [facility] [id number] Preferred Pharmacy Correct in EPIC (yes or no): yes Medication(s) requested: calcitRIOL (ROCALTROL) 0.25 mcg capsule Summary: Patient is taking 5 pills per day. Last quantity issued: 450 Patient's Endocrine provider is: Dr Cid Thank you, Emilio documented in this encounter Plan of Treatment Upcoming Encounters Date Type Specialty Care Team Description 11/19/2021 Clinical Communication Admitting/Central Scheduling 11/23/2021 Comprehensive Visit Neurology Kenji Zaldivar M.D. [address] [place] [address] documented as of this encounter Visit Diagnoses Not on filedocumented in this encounter
--- OUTSIDE RECORDS SUMMARY | 2021-11-03 07:07 | XMS_ITS | Encounter Summary ---
:1940 Author Organization [facility] Address [address] [place] [address] Care Team Providers Name Role Phone Unavailable Primary Care Provider Unavailable Encounter Details Date Type Department Care Team Description 08/25/2020 Documentation Division of Endocrinology in [place], [place] [address] [facility] [address] [place] [address] [place], [place] [phone] (Wo rk) Social History Tobacco Use Types [...] encounter Progress Notes Konrad Cid M.D. - 08/25/2020 12:22 PM CDT [place] medical records and laboratory results reviewed. The patient's laboratory values at [facility] on August 21, 2020, at 8:56 a.m. showed her fasting serum calcium normal at 8.6 mg/dL (normal, 8.5 to 10.5). In light of this finding, no additional recommendations for now. Konrad Cid M.D. CT CT Job ID: [id number] documented in this encounter Plan of Treatment Upcoming Encounters Date Type Specialty Care Team Description 11/19/2021 Clinical Communication Admitting/Central Scheduling 11/23/2021 Comprehensive Visit Neurology Kenji Zaldivar M.D. [address] [place] [address] documented as of this encounter Visit Diagnoses Not on filedocumented in this encounter
--- OUTSIDE RECORDS SUMMARY | 2021-11-03 07:07 | XMS_ITS | Encounter Summary ---
:1940 Author Organization [facility] Address [address] [place] [address] Care Team Providers Name Role Phone Unavailable Primary Care Provider Unavailable Reason for Visit Episode Based Medications (Routine) - Authorized Specialty Diagnoses / Procedures Referred By Contact Refer red To Contact Diagnoses Malignant Neoplasm Of Pancreas Adenocarcinoma (HCC) Neutropenia Chemotherapy Induced (HCC) Kimberly Rios, Rsmarleen Onc Coy HIGH C.N.P., M.S. [address] [place] [address] [place] [phone] Referral ID Status Reason Start Date Expiration Date Visits V isits Requested Authorized [id number] Authorized 06/03/2020 06/03/2021 99 99 Encounter Details Date Type Department Care Team Description 08/17/2020 Lab Department of Laboratory Kimberly Rios, Malignant Neoplasm Of Medicine and Pathology, LENNOX C. N.P., M.S. Pancreas Adenocarcinoma [place], in [address] [place] [address] (HCC) (Primary Dx) [place], [place] [address] [place] [phone] [place] [address] Social History Tobacco Use Types Packs/Day [...] or relatives? How often do you attend holiness or More than 4 times per year 06/19/2021 quaker services? Do you belong to any clubs or Yes 06/19/2021 organizations such as holiness groups, unions, fraternal or athletic groups, or [...] Visit Neurology Kenji Zaldivar M.D. [address] [place] [phone] documented as of this encounter Procedures Procedure Name Priority Date/Time Associated Diagnosis Comme nts CBC WITH Routine 08/17/2020 8:41 Malignant Neoplasm Of Res ults for this DIFFERENTIAL, B AM CDT Pancreas procedure ar e in Adenocarcinoma (HCC) the res ults section. MAGNESIUM, S Routine 08/17/2020 8:41 Malignant Neoplasm Of Res ults for this AM CDT Pancreas procedure are i n Adenocarcinoma (HCC) the res ults section. BILIRUBIN DIRECT, S/P Routine 08/17/2020 8:41 Malignant Neopla sm Of Results for this AM CDT Pancreas procedure are i n Adenocarcinoma (HCC) the res ults section. COMPREHENSIVE Routine 08/17/2020 8:41 Malignant Neoplasm Of Re sults for this METABOLIC PANEL, S/P AM CDT Pancreas procedu re are in Adenocarcinoma (HCC) the res ults section. documented in this encounter Results Magnesium (08/17/2020 8:41 AM CDT) athologist Signature Magnesium, S 2.3 1.7 - 2.3 08/17/2020 DTL mg/dL 9:32 AM CDT Specimen Anatomical Collection Method Collection Time Receive d Time (Source) Location / / Volume Laterality Blood (Blood, 08/17/2020 8:41 AM 08/18/19 8:53 Venous) CDT AM CDT Nova ZamoraB.S. LAB BLOOD ADD-ON Performing Organization Address [facility] Phon e Number [facility] [address] Bilirubin, Direct (08/17/2020 8:41 AM CDT) athologist Signature Bilirubin, <0.2 0.0 - 0.3 08/17/2020 DTL Direct, S mg/dL 9:39 AM CDT Specimen Anatomical Collection Method Collection Time Receive d Time (Source) Location / / Volume Laterality Blood (Blood, 08/17/2020 8:41 AM 08/18/19 8:53 Venous) CDT AM CDT Trace Rudolph APRNN.P., M.S. LAB BLOOD ADD-ON Performing Organization Address City/[facility] Phon e Number [facility] - 200 [place] [address] [place] [address] (ABNORMAL) Comprehensive Metabolic Panel (08/17/2020 8:41 AM CDT) athologist Signature Potassium, S 3.4 (L) 3.6 - 5.2 08/17/2020 DTL mmol/L 9:39 AM CDT Sodium, S 141 135 - 145 08/17/2020 DTL mmol/L 9:39 AM CDT Chloride, S 97 (L) 98 - 107 08/17/2020 DTL mmol/L 9:39 AM CDT Bicarbonate, S 33 (H) 22 - 29 08/17/2020 DTL mmol/L 9:39 AM CDT Anion Gap 11 7 - 15 08/17/2020 DTL 9:39 AM CDT BUN (Blood 25 (H) 6 - 21 08/17/2020 DTL Urea mg/dL 9:39 AM CDT Nitrogen), S Creatinine, S 1.29 (H) 0.59 - 08/17/2020 DTL 1.04 mg/dL 9:39 AM CDT eGFR-Non 40 (L) >=60 08/17/2020 DTL Black/ mL/min/BSA 9:39 AM CDT [place] Comment: ----ADDITIONAL INFORMATION---- Estimated GFR calculated using the 2009 CKD_EPI creatinine equation. eGFR-Black/ 46 (L) >=60 mL/min/BSA 2020 9:39 AM CDT DTL Comment: ----ADDITIONAL INFORMATION---- Estimated GFR calculated using the 2009 CKD_EPI creatinine equation. Calcium, Total, S 13.8 (CH) 8.8 - 10.2 mg/dL 08/17/2020 9:39 AM CDT DTL Glucose, S 109 70 - 140 mg/dL 08/17/2020 9:39 AM CDT D TL Protein, Total, S 6.4 6.3 - 7.9 g/dL 08/17/2020 9:39 A M CDT DTL Albumin, S 4.4 3.5 - 5.0 g/dL 08/17/2020 9:39 AM CDT D TL Aspartate Aminotransferase 17 8 - 43 U/L 08/17/2020 9 :39 AM CDT DTL (AST), S Alkaline Phosphatase, S 73 35 - 104 U/L 08/17/2020 9: 39 AM CDT DTL Alanine Aminotransferase 14 7 - 45 U/L 08/17/2020 9:3 9 AM CDT DTL (ALT), S Bilirubin, Total, S 0.3 <=1.2 mg/dL 08/17/2020 9:39 AM CDT DTL Specimen Anatomical Collection Method Collection Time Receive d Time (Source) Location / / Volume Laterality Blood (Blood, 08/17/2020 8:41 AM 08/18/19 8:53 Venous) CDT AM CDT Kimberly Rios APRN, C.N.P., M.S. LAB BLOOD ADD-ON Performing Organization Address City/State/ZIP Code Phon e Number [facility] - 200 [place], [place] [address] [facility] [place] [address] [facility] [address] [facility] (ABNORMAL) CBC with Differential, Blood (08/17/2020 8:41 AM CDT) [facility] Method Time Signature Hemoglobin 10.2 (L) 11.6 - 08/17/2020 DTL 15.0 g/dL 9:39 AM CDT Hematocrit 29.9 (L) 35.5 - 08/17/2020 DTL 44.9 % 9:39 AM CDT Erythrocytes 3.02 (L) 3.92 - 08/17/2020 DTL 5.13 9:39 AM CDT x10(12)/L MCV 99.0 (H) 78.2 - 08/17/2020 DTL 97.9 fL 9:39 AM CDT RBC Distrib Width 16.0 12.2 - 08/17/2020 DTL 16.1 % 9:39 AM CDT Platelet Count 180 157 - 371 08/17/2020 DTL x10(9)/L 9:39 AM CDT Leukocytes 4.6 3.4 - 9.6 08/17/2020 DTL x10(9)/L 9:39 AM CDT Neutrophils 3.41 1.56 - 08/17/2020 DTL 6.45 9:39 AM CDT x10(9)/L Lymphocytes 0.42 (L) 0.95 - 08/17/2020 DTL 3.07 9:39 AM CDT x10(9)/L Monocytes 0.71 0.26 - 08/17/2020 DTL 0.81 9:39 AM CDT x10(9)/L Eosinophils 0.07 0.03 - 08/17/2020 DTL 0.48 9:39 AM CDT x10(9)/L Basophils <0.03 0.01 - 08/17/2020 DTL 0.08 9:39 AM CDT x10(9)/L Specimen Anatomical Collection Method Collection Time Receive d Time (Source) Location / / Volume Laterality Blood (Blood, 08/17/2020 8:41 AM 08/18/19 9:03 Venous) CDT AM CDT Kimberly Phillips Gabriel HIGH C.N.P., M.S. LAB BLOOD ADD-ON Performing Organization Address City/State/ZIP Code Phon e Number [facility] - [address] [place], [place] [address] [facility] [address] [facility] [address] documented in this encounter Visit Diagnoses Diagnosis Malignant Neoplasm Of Pancreas Adenocarc inoma (HCC) - Primary documented in this encounter Administered Medications Inactive Administered Medications - up to 3 most recent administrations Medication Order MAR Action Action Date Dose Rate Site heparin flush 500 Units Given 08/17/2020 8:37 AM CDT 500 Units 500 Units, intra-catheter, As needed, line care, Starting on Mon08/17/20 at 0825, When no infusion to maintain patency: For IVAD accessed, not in use, and/or prior to hospital discharge, flush every 7 days after 0.9% preservative-free NaCL flush. For IVAD NOT accessed or used, flush every 4 weeks after 0.9% preservative-free NaCL flush. sodium chloride 0.9 % injection 20 mL Given 08/17/2020 8:37 AM CDT 20 mL 20 mL, intra-catheter, As needed, line care, Starting on Mon08/17/20 at 0825, When IVAD Accessed and in Use: Flush post blood transfusion or post blood sampling. documented in this encounter
--- OUTSIDE RECORDS SUMMARY | 2021-11-03 07:07 | XMS_ITS | Encounter Summary ---
:1940 Author Organization [facility] Address [address] [place] [address] Care Team Providers Name Role Phone Unavailable Primary Care Provider Unavailable Reason for Visit Reason Comments Intake Assessment Encounter Details Date Type Department Care Team Description 09/10/2020 Clinical Communication Department of Maren Rios [facility] Oncology in [facility] C.N.P., M.S. [place] [address] [facility] [address] [place] [phone] Social History Tobacco Use Types Packs/Day Years [...] or relatives? How often do you attend jain or More than 4 times per year 06/19/2021 hindu services? Do you belong to any clubs or Yes 06/19/2021 organizations such as jain groups, unions, fraternal or athletic groups, or [...] Comprehensive Visit Neurology Kenji Zaldivar M.D. [address] [place] [address] documented as of this encounter Visit Diagnoses Not on filedocumented in this encounter
--- OUTSIDE RECORDS SUMMARY | 2021-11-03 07:07 | XMS_ITS | Encounter Summary ---
:1940 Author Organization [facility] Address [address] [place] [address] Care Team Providers Name Role Phone Unavailable Primary Care Provider Unavailable Reason for Visit Reason Comments Med Refill loperamide Encounter Details Date Type Department Care Team Description 09/10/2020 Refill Department of Oncology Kimberly Rios, Med Refill (loperamide ) in [facility] blossom HIGH C.N.P., M.S. [address] [facility] [address] [place] [address] [place], [place] [phone] (Wo rk) Social History Tobacco Use Types [...] or relatives? How often do you attend mosque or More than 4 times per year 06/19/2021 restoration services? Do you belong to any clubs or Yes 06/19/2021 organizations such as mosque groups, unions, fraternal or athletic groups, or [...] Comprehensive Visit Neurology Kenji Zaldivar M.D. 200 [place] [address] documented as of this encounter Visit Diagnoses Diagnosis Malignant Neoplasm Of Pancreas (HCC) documented in this encounter
--- OUTSIDE RECORDS SUMMARY | 2021-11-03 07:07 | XMS_ITS | Encounter Summary ---
:1940 Author Organization [facility] Address [address] [place] [address] Care Team Providers Name Role Phone Unavailable Primary Care Provider Unavailable Encounter Details Date Type Department Care Team Description 08/28/2020 Documentation Division of Endocrinology in [place], [place] [address] [facility] [address] [place] [address] [place], [place] [phone] (Wo rk) Social History Tobacco Use Types [...] or slept in a fdc (including now)? Sex Assigned at Date Recorded Female 07/03/2017 2:07 PM CDT documented as of this encounter Progress Notes Konrad Cid M.D. - 08/28/2020 3:49 PM CDT Outside medical records received by fax for review from [facility]. The patient's serum calcium on August 27, 2020, at 7:59 a.m. was decreased at 7.6 mg/dL (normal, 8.5 to10.5). In light of this finding, she is advised to increase her Citracal to three tablets a day, andcalcitriol to two capsules a day. She will have her next blood draw here on Monday, August 31, 2020. In light of these findings, no additional recommendations for now. Konrad Cid M.D. CT CT Job ID: [id number] documented in this encounter Plan of Treatment Upcoming Encounters Date Type Specialty Care Team Description 11/19/2021 Clinical Communication Admitting/Central Scheduling 11/23/2021 Comprehensive Visit Neurology Kenji Zaldivar M.D. [address] [place] [address] documented as of this encounter Visit Diagnoses Not on filedocumented in this encounter
--- OUTSIDE RECORDS SUMMARY | 2021-11-03 07:07 | XMS_ITS | Encounter Summary ---
:1940 Author Organization [facility] Address [address] [place] [address] Care Team Providers Name Role Phone Unavailable Primary Care Provider Unavailable Reason for Visit Reason Comments [facility] 09/07/20 Encounter Details Date Type Department Care Team Description 09/10/2020 Clinical Communication Division of Konrad Cid ( Lab 09/07/20) Endocrinology in [place], [place] [address] [facility] [phone] [place] [phone] [place] [address] Social History Tobacco Use Types Packs/Day Years [...] or relatives? How often do you attend oriental orthodox or More than 4 times per year 06/19/2021 worship services? Do you belong to any clubs or Yes 06/19/2021 organizations such as oriental orthodox groups, unions, fraternal or athletic groups, or [...] encounter Progress Notes Konrad Cid M.D. - 09/10/2020 6:58 PM CDT Outside medical records received by fax for review. [facility] showed her serum calcium to be low-normal at 8.8 mg/dL (normal, 8.5 to 10.5). In light of this finding, no additional recommendations for now. Konrad Cid M.D. CT CT Job ID: [id number] documented in this encounter Miscellaneous Notes Telephone Encounter - Carol Sullivan - 09/15/2020 10:15 AM CDT This information sent to patient via portal message. Telephone Encounter - Carol Sullivan - 09/10/2020 6:48 PM CDT We received outside records on your patient from [facility] [place], [place]. [place] saw the patient on 07/27/2020. The records are viewable in document viewer. Thank you, Carol Blake, Pearl Peller [phone] documented in this encounter Plan of Treatment Upcoming Encounters Date Type Specialty Care Team Description 11/19/2021 Clinical Communication Admitting/Central Scheduling 11/23/2021 Comprehensive Visit Neurology Kenji Zaldivar M.D. 200 [place] [address] documented as of this encounter Visit Diagnoses Not on filedocumented in this encounter
--- OUTSIDE RECORDS SUMMARY | 2021-11-03 07:07 | XMS_ITS | Encounter Summary ---
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 [address] [place] [phone] Referral ID Status Reason Start Date Expiration Date Visits Requ ested Visits Authorized [id number] Closed 09/14/2020 09/14/2021 1 1 utpatient (Routine) Specialty Diagnoses / Procedures Referred By Contact Refer red To Contact Oncology Kimberly Rios APRN, C.N.P., [facility] M.S. [address] [place] [phone] Referral ID Status Reason Start Date Expiration Date Visits Requ ested Visits Authorized Reason for Visit Episode Based Medications (Routine) - Authorized Specialty Diagnoses / Procedures Referred By Contact Refer red To Contact Diagnoses Malignant Neoplasm Of Pancreas Adenocarcinoma (HCC) Neutropenia Chemotherapy Induced (HCC) Kimberly Rios, Rst Onc Coy [facility]IHG C.N.P., M.S. [address] [facility] [address] [place] [phone] Referral ID Status Reason Start Date Expiration Date Visits V isits Requested Authorized [id number] Authorized 06/03/2020 06/03/2021 99 99 Encounter Details Date Type Department Care Team Description 09/14/2020 Office Visit Department of Kimberly Rios Malignant N eoplasm Of Pancreas Adenocarcinoma (HCC) (Primary Dx); Oncology in L, Frank HIGH, Secondary M alignant Neoplasm Lymph Node (HCC) [place], [place] M.S. [address] [facility] [address] [place] [phone] Social History Tobacco Use Types Packs/Day Years [...] or slept in a jail (including now)? Sex Assigned at Date Recorded Female 07/03/2017 2:07 PM CDT documented as of this encounter Last Filed Vital Signs Vital Sign Reading Time Taken Comments Blood Pressure 153/69 09/14/2020 10:09 AM CDT Pulse 62 09/14/2020 10:09 AM CDT Temperature 36.5 ??C (97.7 ??F) 09/14/2020 10:09 AM CDT Respiratory Rate - - Oxygen Saturation 97% 09/14/2020 10:09 AM CDT Inhaled Oxygen Concentration - - Weight 51.8 kg (114 lb 3.2 oz) 09/14/2020 10:09 AM CDT Height - - Body Mass Index 18.93 08/17/2020 10:11 AM CDT documented in this encounter Progress Notes Kimberly Rios APRN, C.N.P., M.S. - 09/14/2020 10:10 AM CDT SUBJECTIVE PRIMARY CARE PHYSICIAN No primary care provider on file. LOCAL ONCOLOGIST No care steam pressure chamber operator to display PRIMARY GRYGLA ONCOLOGIST Nova Vivar M.B.B.S. Kimberly Rios APRN, C.N.P., M.S. CHIEF COMPLAINT / REASON FOR VISIT Azeb العراقي is a 80 y.o. 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 3.) 05/25/2020 CA 19-9 178 [...] 06/08/2020 Interval History Ms. العراقي reports that after the dose reductions that were initiated with her last round chemotherapyanglee has felt significantly better. She reports that she feels closer to her normal self at this point. The cold sensitivity was less intense specially in the throat and fingers. In the past that lasted approximately 9 days at this point it only lasted 3 or 4. She denies any neuropathy in her hands or feet. She does require a nap every day but overall feels that she is less fatigued. She denies any changes to the skin in her mouth hands or feet. Does continue to require anti motility products that she does continue to suffer from diarrhea. She can have anywhere from 3-4 bowel movements in a day. When these occur she generally takes 2 Imodium and then will supplement as needed. Very rarely needs to up to 4 tablets in a day. She denies any blood or mucus in her stool. She denies chest pain, shortness of breath, lower extremity edema, elevated temperature or night sweats. The following portions of the patient's history were reviewed and updated as appropriate: family history, medical history, social history and surgical history. MEDICATIONS Current Outpatient Medications on File Prior to Visit Medication Sig Dispense Refill ??? calcitRIOL (ROCALTROL) 0.25 mcg capsule Take 2 capsules (0.5 mcg total) by mouth daily. 180 capsule 3 ??? phvsjef-C1-ckli-copper-marlo (Citracal-D3 Maximum Plus) 325 mg-12.5 mcg - 2.75 mg tablet Take bymouth. ??? dexAMETHasone (DECADRON) 4 mg tablet TAKE 2 TABLETS BY MOUTH DAILY. TAKE FOR 3 DAYS ON DAYS 2, 3, AND 4. 6 tablet 3 ??? ESTRIOL MICRONIZED, BULK, MISC Three Times Weekly ??? levothyroxine (SYNTHROID, LEVOTHROID) 75 mcg tablet ??? lidocaine-prilocaine (EMLA) 2.5-2.5 % cream Apply 1 application topically as needed for pain (30minutes prior to port access). 30 g 0 ??? pwzzvc-uxdhndgh-vxmvzav (CREON) 24,000-76,000-120,[address] capsule Take 1 capsule by mouth 3 (three) times a day with meals. 180 capsule 3 ??? lisinopriL (PRINIVIL,ZESTRIL) 20 mg tablet Take 20 mg by mouth. ??? loperamide (IMODIUM A-D) 2 mg capsule TAKE 2 CAPS AT ONSET OF DIARRHEA, THEN 1 CAP EVERY 2HRS UNTIL DIARRHEA FREE FOR 12HRS. MAY TAKE 2 CAPS EVERY 4HRS AT NIGHT 24 capsule 3 ??? magnesium oxide (MAG-OX) 400 mg (241.3 mg magnesium) tablet Take 400 mg by mouth. ??? NON FORMULARY Estriol 0.3% Vaginal Cream, compounded. 1 gram vaginally nightly for 7 days, then 3 nights each week. Disp. 30 g, 11 refills 30 g 11 ??? [DISCONTINUED] CALCIUM CITRATE ORAL Citracal ??? [DISCONTINUED] calcium citrate-vitamin D3 (CITRACAL PETITES) 200 mg-6.25 mcg (250 Unit) per tablet 3 tablets daily with breakfast. ??? LORazepam (ATIVAN) 0.5 mg tablet Take 1 tablet (0.5 mg total) by mouth every 8 (eight) hours as needed (nausea, vomiting) for up to 30 doses. If ineffective, may repeat once after 30 minutes. (Patient not taking: Reported on 08/17/2020 ) 30 tablet 3 ??? ondansetron (ZOFRAN) 8 mg tablet Take [...] Reported on 09/14/2020 ) 30 tablet 3 ??? [DISCONTINUED] CHOLECALCIFEROL, VITAMIN D3, ORAL Vitamin D3 1000 intl units oral tablet ??? [DISCONTINUED] levothyroxine sodium (LEVOTHYROXINE ORAL) Synthroid No current facility-administered medications on file prior to visit. VITALS Vitals: 09/14/20 1009 BP: 153/69 Pulse: 62 Temp: 36.5 ??C SpO2: 97% Rate your distress: 3 REVIEW OF SYSTEMS Constitutional: Positive for fatigue. Gastrointestinal: Positive for diarrhea. All other systems reviewed and are negative. OBJECTIVE BP 153/69 (BP Location: Right arm, Patient Position: Sitting, Cuff Size: Regular) Pulse 62 Temp 36.5 ??C (Tympanic) Wt 51.8 kg SpO2 97% BMI 18.93 kg/m?? PHYSICAL EXAM General: Well appearing 80 y.o. who is in no apparent distress. Appears to be at ECOG performance status 1 Skin: Non-jaundice. No rashes. Eyes: No scleral icterus Lungs: Nonlabored, absent of a cough. Extremities: No edema Neuro: Alert and oriented x 3. Calm interactive and appropriate. No focal neuro deficients. LABORATORY DATA Lab data reviewed. ASSESSMENT / PLAN #1 Malignant Neoplasm Of Pancreas Adenocarcinoma (HCC) #2 Secondary Malignant Neoplasm Lymph Node (HCC) Prior to meeting with Ms. العراقي I reviewed her past medical records, laboratory tests. At this time it appears that she is tolerating therapy well will proceed with her next cycle of treatment. She willreturn in 2 weeks time for cycle 8. One month from now she will return with repeat imaging studies and comprehensive lab tests. Until then we will continue on her present regimen although we did discuss that at some point we may want to remove the oxaliplatin from her treatment regimen and save it forthe future. At this point being she tolerated therapy much better we will continue with all 3 chemotherapy drugs. She is in full agreement with the plan. Denies any further questions or concerns. Has our telephone number to contact us should they have any further questions or concerns. PATIENT EDUCATION Ready to learn, no apparent learning barriers were identified; learning preferences include listening. Explained diagnosis and treatment plan; patient expressed understanding of the content. ADMINISTRATIVE BILLING I personally spent 38 minutes in care of the patient today. Time includes both non face to face and face to face patient care. documented in this encounter Plan of Treatment Upcoming Encounters Date Type Specialty Care Team Description 11/19/2021 Clinical Communication Admitting/Central Scheduling 11/23/2021 Comprehensive Visit Neurology Kenji Zaldivar M.D. [address] [place] [address] Scheduled Referrals Name Type Priority Associated Diagnoses Order S [facility] Oncology office Outpatient Referral Routine Malignant Neoplasm Of Expected: visit (clinic) Pancreas Adenocarcinoma , (HCC) Expires: 10/12/2021 documented as of this encounter Results (ABNORMAL) Comprehensive Metabolic Panel [...] 10/12/2020 DTL Black/ mL/min/BSA 11:30 AM CDT Kenyan Comment: ----ADDITIONAL INFORMATION---- Estimated GFR calculated using [...] 9:24 Venous) CDT AM CDT Kimberly Rios APRN C.N.P., M.S. LAB BLOOD ADD-ON Performing Organization Address City/State/ZIP Code Phon e Number [facility] - [address] [place], [place] [address] [facility] [place] [address] Laboratories-[facility] [address] (ABNORMAL) CBC with Differential, Blood (10/12/2020 9:10 AM CDT) [facility] gist Method Time Signature Hemoglobin 9.9 (L) [...] AM 10/13/19 9:41 Venous) CDT AM CDT Kimberly Rios APRN C.N.P., M.S. LAB BLOOD ADD-ON Performing Organization Address City/State/ZIP Code Phon e Number [facility] - [address] [place], [place] [address] [facility] [place] [address] Laboratories-[facility] [address] [facility] Magnesium (10/12/2020 9:10 AM CDT) P athologist Signature Magnesium, S 2.2 1.7 - 2.3 10/12/2020 DTL mg/dL 11:30 AM CDT Specimen Anatomical Collection Method Collection Time Receive d Time (Source) Location / / Volume Laterality Blood (Blood, 10/12/2020 9:10 AM 10/13/19 9:24 Venous) CDT AM CDT Kimberly Rios APRN, C.N.P., M.S. LAB BLOOD ADD-ON Performing Organization Address [facility] Phon e Number [facility] - [address] [place] [id number] Laboratories-[address] Bilirubin, Direct (10/12/2020 9:09 AM CDT) P athologist Signature Bilirubin, <0.2 0.0 - 0.3 10/12/2020 DTL Direct, S mg/dL 11:14 AM CDT Specimen Anatomical Collection Method Collection Time Receive d Time (Source) Location / / Volume Laterality Blood (Blood, 10/12/2020 9:09 AM 10/13/19 9:24 Venous) CDT AM CDT Kimberly Rios APRN, C.N.P., M.S. LAB BLOOD ADD-ON Performing Organization Address City/[facility] Phon e Number [facility] - [address] [place] [id number] [place] [address] (ABNORMAL) Carbohydrate Antigen 19-9 (CA 19-9) (10/12/2020 9:09 AM CDT) Analysis Performed At Patho logist Time Signature Carbohydrate Ag 44 (H) <35 U/mL 10/12/2020 SDSC 19-9, S 2:29 PM CDT Comment: ----ADDITIONAL INFORMATION---- The testing method is an immunoenzymatic assay manufactured by [employer]. and performed on the [employer] 800. ? Values obtained with different assay met hods or kits may be different and cannot be used inte rchangeably. ? Test results cannot be interpreted as ab solute evidence for the presence or absence of malignant disease. Specimen Anatomical Collection Method Collection Time Receive d Time (Source) Location / / Volume Laterality Blood (Blood, 10/12/2020 9:09 AM 10/13/19 21 1:32 Venous) CDT PM CDT Kimberly Phillips Gabriel HIGH C.N.P., M.S. LAB BLOOD ADD-ON Performing Organization Address City/State/ZIP Code Phon e Number [facility] [address] [place], [place] [address] [place] [address] [place] [address] Laboratory Medicine and Pathology [address] Abdomen Pelvis with IV Contrast (10/12/2020 [...] destructive lesions. Procedure Note Misbah Escudero M.B.B.S., M.D. - 1 EXAM: CT ABDOMEN PELVIS WITH [...] which will be reported separately. Kimberly Rios APRN, C.N.P., M.S. IMG CT PROCEDURES documented in this encounter Visit Diagnoses Diagnosis Malignant Neoplasm Of Pancreas Adenocarc inoma (HCC) - Primary Secondary Malignant Neoplasm Lymph Node (HCC) Malignant Neoplasm Of Pancreas Adenocarc inoma (HCC) Secondary Malignant Neoplasm Lymph Node (HCC) documented in this encounter
--- OUTSIDE RECORDS SUMMARY | 2021-11-03 07:07 | XMS_ITS | Encounter Summary ---
:1940 Author Organization [facility] Address [address] [place] [address] Care Team Providers Name Role Phone Unavailable Primary Care Provider Unavailable Reason for Visit Reason Comments Intake Assessment Encounter Details Date Type Department Care Team Description 08/13/2020 Clinical Communication Department of Nova Vivar Inta ke Assessment Oncology in M.B.B.S. [place], [place] [address] [facility] [address] [place] [phone] Social History Tobacco Use Types Packs/Day Years [...] or relatives? How often do you attend shinto or More than 4 times per year 06/19/2021 religion services? Do you belong to any clubs or Yes 06/19/2021 organizations such as shinto groups, unions, fraternal or athletic groups, or [...] this encounter Miscellaneous Notes Telephone Encounter - Deb Pinto - 08/13/2020 11:07 AM CDT Intake screening completed. documented in this encounter Plan of Treatment Upcoming Encounters Date Type Specialty Care Team Description 11/19/2021 Clinical Communication Admitting/Central Scheduling 11/23/2021 Comprehensive Visit Neurology Kenji Zaldivar M.D. [address] [place] [address] documented as of this encounter Visit Diagnoses Not on filedocumented in this encounter
--- OUTSIDE RECORDS SUMMARY | 2021-11-03 07:07 | XMS_ITS | Encounter Summary ---
:1940 Author Organization [facility] Address [address] [place] [address] Care Team Providers Name Role Phone Unavailable Primary Care Provider Unavailable Reason for Visit Episode Based Medications (Routine) - Authorized Specialty Diagnoses / Procedures Referred By Contact Refer red To Contact Diagnoses Malignant Neoplasm Of Pancreas Adenocarcinoma (HCC) Neutropenia Chemotherapy Induced (HCC) Kimberly Rios, Rsmarleen Onc Coy HIGH C.N.P., M.S. [address] [facility] [address] [place] [phone] Referral ID Status Reason Start Date Expiration Date Visits V isits Requested Authorized [id number] Authorized 06/03/2020 06/03/2021 99 99 Encounter Details Date Type Department Care Team Description 08/31/2020 Lab Department of Oncology Nova Vivar Malig nant Neoplasm Of in [facility] MInnaB.S. Pancreas Adenocarcinoma [address] [facility] [address] [place] [address] (HCC) (Primary Dx) [place] [address] [place], [place] [phone] Social History Tobacco Use Types Packs/Day Years [...] or relatives? How often do you attend christianity or More than 4 times per year 06/19/2021 judaism services? Do you belong to any clubs or [employer] 06/19/2021 organizations such as christianity groups, unions, fraternal or athletic groups, or [...] Visit Neurology Kenji Zaldivar M.D. [address] [place] [address] documented as of this encounter Procedures Procedure Name Priority Date/Time Associated Diagnosis Comme nts CBC WITH Routine 08/31/2020 7:27 Malignant Neoplasm Of Res ults for this DIFFERENTIAL, B AM CDT Pancreas procedure ar e in Adenocarcinoma (HCC) the res ults section. MAGNESIUM, S Routine 08/31/2020 7:27 Malignant Neoplasm Of Res ults for this AM CDT Pancreas procedure are i n Adenocarcinoma (HCC) the res ults section. BILIRUBIN DIRECT, S/P Routine 08/31/2020 7:27 Malignant Neopla sm Of Results for this AM CDT Pancreas procedure are i n Adenocarcinoma (HCC) the res ults section. COMPREHENSIVE Routine 08/31/2020 7:27 Malignant Neoplasm Of Re sults for this METABOLIC PANEL, S/P AM CDT Pancreas procedu re are in Adenocarcinoma (HCC) the res ults section. documented in this encounter Results Bilirubin, Direct (08/31/2020 7:27 AM CDT) athologist Signature Bilirubin, <0.2 0.0 - 0.3 08/31/2020 DTL Direct, S mg/dL 8:29 AM CDT Specimen Anatomical Collection Method Collection Time Receive d Time (Source) Location / / Volume Laterality Blood (Blood, 08/31/2020 7:27 AM 09/01/19 7:38 Venous) CDT AM CDT Nova McnealSChico LAB BLOOD ADD-ON Performing Organization Address City/State/ZIP Code Phon e Number [facility] - 200 [place], [place] [address] [facility] [place] [address] Laboratories-[facility] 200 [facility] Comprehensive Metabolic Panel (08/31/2020 7:27 AM CDT) athologist Signature Potassium, S 4.1 [...] 08/31/2020 DTL Black/ mL/min/BSA 8:28 AM CDT Namibian Comment: ----ADDITIONAL INFORMATION---- Estimated GFR calculated using [...] 09/01/19 7:38 Venous) CDT AM CDT Nova McnealS. LAB BLOOD ADD-ON Performing Organization Address City/State/ZIP Code Phon e Number [facility] - [address] [place] [address] [facility] [place] [place] [address] Laboratories-[facility] [address] [facility] (ABNORMAL) CBC with Differential, Blood (08/31/2020 7:27 AM CDT) [facility] Method Time Signature Hemoglobin 9.8 (L) 11.6 [...] Laterality Blood (Blood, 08/31/2020 7:27 AM 09/01/19 8:01 Venous) CDT AM CDT Nova ZamoraB.S. LAB BLOOD ADD-ON Performing Organization Address City/State/ZIP Code Phon e Number [facility] - [address] [place], [place] [address] [facility] [place] [address] Laboratories-[facility] [address] Magnesium (08/31/2020 7:27 AM CDT) P athologist Signature Magnesium, S 2.0 1.7 - 2.3 08/31/2020 DTL mg/dL 8:28 AM CDT Specimen Anatomical Collection Method Collection Time Receive d Time (Source) Location / / Volume Laterality Blood (Blood, 08/31/2020 7:27 AM 09/01/19 7:38 Venous) CDT AM CDT Nova Allen LAB BLOOD ADD-ON Performing Organization Address City/State/ZIP Code Phon e Number [facility] - [address] [place], [place] [address] [facility] [place] [address] Laboratories-[facility] [address] documented in this encounter Visit Diagnoses Diagnosis Malignant Neoplasm Of Pancreas Adenocarc inoma (HCC) - Primary documented in this encounter Administered Medications Inactive Administered Medications - up to 3 most recent administrations Medication Order MAR Action Action Date Dose Rate Site heparin flush 500 Units Given 08/31/2020 7:15 AM CDT 500 Units 500 Units, intra-catheter, As needed, line care, Starting on Mon08/31/20 at 0713, When no infusion to maintain patency: For IVAD accessed, not in use, and/or prior to hospital discharge, flush every 7 days after 0.9% preservative-free NaCL flush. For IVAD NOT accessed or used, flush every 4 weeks after 0.9% preservative-free NaCL flush. sodium chloride 0.9 % injection 10 mL Given 08/31/2020 7:15 AM CDT 10 mL 10 mL, intra-catheter, As needed, line care, Starting on Mon08/31/20 at 0713, When IVAD Accessed and in Use: Flush prior to and following infusion, between multiple consecutive infusions, and prior to blood sampling. sodium chloride 0.9 % injection 20 mL Given 08/31/2020 7:15 AM CDT 20 mL 20 mL, intra-catheter, As needed, line care, Starting on Mon08/31/20 at 0713, When IVAD Accessed and in Use: Flush post blood transfusion or post blood sampling. documented in this encounter
--- OUTSIDE RECORDS SUMMARY | 2021-11-03 07:07 | XMS_ITS | Encounter Summary ---
:1940 Author Organization [facility] Address [address] [place] [address] Care Team Providers Name Role Phone Unavailable Primary Care Provider Unavailable Encounter Details Date Type Department Care Team Description 08/18/2020 Clinical Communication Department of Andrew Oncology in Shilo Cespedes [place], [place] [address] [place] [address] [address] [place] [phone] Social History Tobacco Use Types Packs/Day Years [...] this encounter Miscellaneous Notes Telephone Encounter - Karolyn Cortez - 08/19/2020 12:29 PM CDT AttnChemo documented in this encounter Plan of Treatment Upcoming Encounters Date Type Specialty Care Team Description 11/19/2021 Clinical Communication Admitting/Central Scheduling 11/23/2021 Comprehensive Visit Neurology Kenji Zaldivar M.D. [address] [place] [address] documented as of this encounter Visit Diagnoses Not on filedocumented in this encounter
--- OUTSIDE RECORDS SUMMARY | 2021-11-03 07:08 | XMS_ITS | Encounter Summary ---
:1940 Author Organization [facility] Address [address] [place] [address] Care Team Providers Name Role Phone Unavailable Primary Care Provider Unavailable Encounter Details Date Type Department Care Team Description 07/21/2020 Orders Only Department of [facility] [place] Of Oncology in Shilo Cespedes Pancreas Adenocarcinoma [place], [place] [address] [facility] (HCC) (Primary Dx) [address] [place] [phone] Social History Tobacco Use Types Packs/Day Years [...] or relatives? How often do you attend buddhist or More than 4 times per year 06/19/2021 uatsdin services? Do you belong to any clubs or Yes 06/19/2021 organizations such as buddhist groups, unions, fraternal or athletic groups, or [...] Neurology Kenji Zaldivar M.D. [address] [place] [phone] documented as of this encounter Results Magnesium (07/24/2020 8:13 AM CDT) P athologist Signature Magnesium, S 1.9 1.7 - 2.3 07/24/2020 DTL mg/dL 9:03 AM CDT Specimen Anatomical Collection Method Collection Time Receive d Time (Source) Location / / Volume Laterality Blood (Blood, 07/24/2020 8:13 AM 07/25/19 8:21 Venous) CDT AM CDT Nova ZamoraB.S. LAB BLOOD ADD-ON Performing Organization Address City/State/ZIP Code Phon e Number [facility] - [address] [place], [place] [address] [facility] [place] [place] [address] Laboratories-[facility] [address] [facility] documented in this encounter Visit Diagnoses Diagnosis Malignant Neoplasm Of Pancreas Adenocarc inoma (HCC) - Primary documented in this encounter
--- OUTSIDE RECORDS SUMMARY | 2021-11-03 07:08 | XMS_ITS | Encounter Summary ---
:1940 Author Organization [facility] Address [address] [place] [address] Care Team Providers Name Role Phone Unavailable Primary Care Provider Unavailable Reason for Visit Outpatient (Routine) - Closed Specialty Diagnoses / Procedures Referred By Contact Refer red To Contact Diagnoses Malignant Neoplasm Of Pancreas Adenocarcinoma (HCC) Kimberly Rios APRN, [facility] Procedures ONC Pump Disconnect C.N.P., M.S. [address] [place] [address] Referral ID Status Reason Start Date Expiration Date Visits Requ ested Visits Authorized [id number] Closed 07/07/2020 07/07/2021 1 1 Encounter Details Date Type Department Care Team Description 07/09/2020 Infusion Department of Infusion Kimberly Rios Ma lignant Neoplasm Of Therapy in [facility], L[place], C.N.P., Sigala creas Adenocarcinoma [facility] (HCC) (Primary Dx) [address] [place] [phone] Social History Tobacco Use [...] 06/19/2021 organizations such as voodoo groups, unions, [employer] or athletic groups, or school groups? How [...] Visit Neurology Kenji Zaldivar M.D. [address] [place] [address] documented as of this encounter Visit Diagnoses Diagnosis Malignant Neoplasm Of Pancreas Adenocarc inoma (HCC) - Primary documented in this encounter Administered Medications Inactive Administered Medications - up to 3 most recent administrations Medication Order MAR Action Action Date Dose Rate Site heparin flush 500 Units Given 07/09/2020 1:56 PM CDT 500 Units 500 Units, intra-catheter, As needed, line care, Starting on Laila 07/09/20 at 1321, When no infusion to maintain patency: For IVAD accessed, not in use, and/or prior to hospital discharge, flush every 7 days after 0.9% preservative-free NaCL flush. For IVAD NOT accessed or used, flush every 4 weeks after 0.9% preservative-free NaCL flush. sodium chloride 0.9 % injection 20 mL Given 07/09/2020 1:56 PM CDT 20 mL 20 mL, intra-catheter, As needed, line care, Starting on Laila 07/09/20 at 1321, When IVAD Accessed and in Use: Flush post blood transfusion or post blood sampling. documented in this encounter
--- OUTSIDE RECORDS SUMMARY | 2021-11-03 07:08 | XMS_ITS | Encounter Summary ---
:1940 Author Organization [facility] Address [address] [place] [address] Care Team Providers Name Role Phone Unavailable Primary Care Provider Unavailable Reason for Visit Reason Comments Intake Assessment Encounter Details Date Type Department Care Team Description 07/17/2020 Clinical Communication Department of Nova Vivar Inta ke Assessment Oncology in [facility] [place], [place] [address] [facility] [address] [place] [phone] Social History Tobacco Use Types Packs/Day Years [...] Notes Telephone Encounter - Deb Pinto - 07/17/2020 12:30 PM CDT Intake screening completed. documented in this encounter Plan of Treatment Upcoming Encounters Date Type Specialty Care Team Description 11/19/2021 Clinical Communication Admitting/Central Scheduling 11/23/2021 Comprehensive Visit Neurology Kenji Zaldivar M.D. [address] [place] [address] documented as of this encounter Visit Diagnoses Not on filedocumented in this encounter
--- OUTSIDE RECORDS SUMMARY | 2021-11-03 07:08 | XMS_ITS | Encounter Summary ---
:1940 Author Organization [facility] Address [address] [place] [address] Care Team Providers Name Role Phone Unavailable Primary Care Provider Unavailable Reason for Visit Reason Comments Med Refill dexAMETHasone Encounter Details Date Type Department Care Team Description 07/27/2020 Refill Department of Oncology Kimberly Rios, Med Refill in [facility] blossom HIGH C.N.P., M.S. (dexAMETHasone ) [address] [facility] [address] [place] [address] [place], [place] [phone] (Wo rk) Social History Tobacco Use Types [...] slept in a long term (including now)? Sex Assigned at Date Recorded Female 07/03/2017 2:07 PM CDT documented as of this encounter Miscellaneous Notes Telephone Encounter - Katty Allen - 07/27/2020 2:36 PM CDT Surescripts created refill request. documented in this encounter Plan of Treatment Upcoming Encounters Date Type Specialty Care Team Description 11/19/2021 Clinical Communication Admitting/Central Scheduling 11/23/2021 Comprehensive Visit Neurology Kenji Zaldivar M.D. 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
--- OUTSIDE RECORDS SUMMARY | 2021-11-03 07:08 | XMS_ITS | Encounter Summary ---
:1940 Author Organization [facility] Address [address] [place] [address] Care Team Providers Name Role Phone Unavailable Primary Care Provider Unavailable Reason for Referral Outpatient (Routine) - Closed Specialty Diagnoses / Procedures Referred By Contact Refer red To Contact Diagnoses Malignant Neoplasm Of Pancreas Adenocarcinoma (HCC) Nova Vivar [facility] Procedures ONC Pump Disconnect [address] [place] [address] Referral ID Status Reason Start Date Expiration Date Visits Requ ested Visits Authorized [id number] Closed 08/06/2020 08/06/2021 1 1 utpatient (Routine) - Closed Specialty Diagnoses / Procedures Referred By Contact Refer red To Contact Diagnoses Malignant Neoplasm Of Pancreas Adenocarcinoma (HCC) Nova Vivar [facility] Procedures ONC Pump Disconnect [address] [place] [address] Referral ID Status Reason Start Date Expiration Date Visits Requ ested Visits Authorized [id number] Closed 08/04/2020 08/04/2021 1 1 Reason for Visit Episode Based Medications (Routine) - Authorized Specialty Diagnoses / Procedures Referred By Contact Refer red To Contact Diagnoses Malignant Neoplasm Of Pancreas Adenocarcinoma (HCC) Neutropenia Chemotherapy Induced (HCC) Kimberly Rios, Rst Onc Coy HIGH C.N.P., M.S. [address] [place] [phone] Referral ID Status Reason Start Date Expiration Date Visits V isits Requested Authorized [id number] Authorized 06/03/2020 06/03/2021 99 99 Encounter Details Date Type Department Care Team Description 08/04/2020 Infusion Department of Oncology Kimberly Rios Ma lignant Neoplasm Of in [place], L, [employer], TraceNAbdirashid., Pancreas A denocarcinoma [facility] (HCC) (Primary Dx) [address] [facility] [address] [place] [phone] Social History Tobacco Use Types Packs/Day [...] Reading Time Taken Comments Blood Pressure 145/73 08/04/2020 10:03 AM CDT Pulse 69 08/04/2020 10:03 AM CDT Temperature 36.9 ??C (98.4 ??F) 08/04/2020 10:03 AM CDT Respiratory Rate - - Oxygen Saturation - - Inhaled Oxygen Concentration - - Weight 52 kg (114 lb 10.2 oz) 08/04/2020 10:03 AM CDT Height - - Body Mass Index 16.47 08/03/2020 10:34 AM CDT documented in this encounter Miscellaneous Notes Addendum Note - Dawn Santiago R.N. - 08/04/2020 10:00 AM CDT Addended by: DAWN SANTIAGO on: 08/06/2020 07:56 AM Modules accepted: Orders documented in this encounter Plan of Treatment Upcoming Encounters Date Type Specialty Care Team Description 11/19/2021 Clinical Communication Admitting/Central Scheduling 11/23/2021 Comprehensive Visit Neurology Kenji Zaldivar M.D. 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 Give subcutaneously if unable to give IV. Patient prefers SQ. dexamethasone in NaCl 0.9% IVPB 12 New Bag 08/04/2020 10:43 AM CDT 12 mg 200 mL/hr mg (DECADRON) 12 mg, intravenous, at 200 mL/hr, Administer over 15 Minutes, Once, On Mon08/04/20 at 1045, For 1 dose, Refrigerate fluorouraciL 4,000 mg in NaCl 0.9% 92 Given 08/04/2020 4:11 PM CDT 4,000 mg 2 mL/hr mL IVPB (ADRUCIL) 4,000 mg (rounded from 3,840 mg = 2,400 mg/m2 ? 1.6 m2 Treatment Plan BSA from Measured weight), intravenous, at 2 mL/hr, Administer over 46 Hours, over 46 hours, First dose on Mon08/04/20 at 1515, For 1 dose, Infuse at 2 mL/hr for 46 hours continuous infusion via CADD pump # [id number] fosaprepitant 150 mg in NaCl 0.9% New 08/04/2020 11:22 AM CDT 150 mg 510 mL/hr IVPB (EMEND) 150 mg, intravenous, at 510 mL/hr, Administer over 30 Minutes, Once, On Mon08/04/20 at 1045, For 1 dose, Incompatible with solutions containing divalent cations (calcium, magnesium) including lactated Ringer's solution. irinotecan 220 mg in D5W 559 mL New 08/04/2020 1:58 PM CDT 220 mg 373 mL/hr IVPB (CAMPTOSAR) 220 mg (rounded from 218.88 mg = 144 mg/m2 ? 1.52 m2 Order-specific BSA), intravenous, at 373 mL/hr, Administer over 90 Minutes, Once, On Mon08/04/20 at 1345, For 1 dose, May be given via y-site with leucovorin. Protect from light. leucovorin 650 mg in D5W 307.5 mL New Bag 08/04/2020 1:57 PM C DT 650 mg 205 mL/hr IVPB 650 mg (rounded from 640 mg = 400 mg/m2 ? 1.6 m2 Treatment Plan BSA from Measured weight), intravenous, at 205 mL/hr, Administer over 90 Minutes, Once, On Mon08/04/20 at 1345, For 1 dose, Can be given via y-site with irinotecan. NaCl 0.9 % bolus 1,000 mL New Bag 08/04/2020 10:43 AM CDT 1,000 mL 1000 mL/hr 1,000 mL, intravenous, at 1,000 mL/hr, Administer over 1 Hours, Once, On Mon08/04/20 at 1045, For 1 dose ondansetron in NaCl 0.9% IVPB 16 mg New Bag 08/04/2020 11:02 A M CDT 16 mg 232 mL/hr (ZOFRAN) 16 mg, intravenous, at 232 mL/hr, Administer over 15 Minutes, Once, On Mon08/04/20 at 1045, For 1 dose oxaliplatin 100 mg in D5W 295 mL New Bag 08/04/2020 11:59 AM C DT 100 mg 148 mL/hr IVPB (ELOXATIN) 100 mg (rounded from 108.8 mg = 68 mg/m2 ? 1.6 m2 Treatment Plan BSA from Measured weight), intravenous, at 148 mL/hr, Administer over 2 Hours, Once, On Mon08/04/20 at 1145, For 1 dose, Flush infusion line with dextrose 5 % in water prior to administration of any concomitant medication. documented in this encounter
--- OUTSIDE RECORDS SUMMARY | 2021-11-03 07:08 | XMS_ITS | Encounter Summary ---
:1940 Author Organization [facility] Address [address] [place] [address] Care Team Providers Name Role Phone Unavailable Primary Care Provider Unavailable Encounter Details Date Type Department Care Team Description 07/21/2020 Orders Only Department of Oncology in [place], [place] M, R.N. [address] [facility] [address] [place] [phone] [place] [address] Social History Tobacco Use Types Packs/Day Years [...] Visit Neurology Kenji Zaldivar M.D. [address] [place] [address] documented as of this encounter Visit Diagnoses Not on filedocumented in this encounter
--- OUTSIDE RECORDS SUMMARY | 2021-11-03 07:08 | XMS_ITS | Encounter Summary ---
:1940 Author Organization [facility] Address [address] [place] [address] Care Team Providers Name Role Phone Unavailable Primary Care Provider Unavailable Reason for Referral Outpatient (Routine) - Closed Specialty Diagnoses / Procedures Referred By Contact Refer red To Contact Diagnoses Malignant Neoplasm Of Pancreas Adenocarcinoma (HCC) Hypocalcemia Hypoparathyroidism (HCC) [facility] BMD Bone Density Spine Hips C.N.P., M.S. [address] [place] [phone] Referral ID Status Reason Start Date Expiration Date Visits Requ ested Visits Authorized [id number] Closed 07/07/2020 07/07/2021 1 1 Reason for Visit Outpatient (Routine) - Closed Specialty Diagnoses / Procedures Referred By Contact Refer red To Contact Diagnoses Malignant Neoplasm Of Pancreas Adenocarcinoma (HCC) Hypocalcemia Hypoparathyroidism (HCC) Kimberly Rios APRN, [facility] Procedures BMD Bone Density Spine Hips C.N.P., M.S. [address] [place] [phone] Referral ID Status Reason Start Date Expiration Date Visits Requ ested Visits Authorized [id number] Closed 07/07/2020 07/07/2021 1 1 Encounter Details Date Type Department Care Team Description 07/24/2020 Hospital Department of [place], Malignant Neop lasm Of Pancreas Adenocarcinoma (HCC); Encounter Radiology, [place], [place]; Building, in [place] HIGH, Hypoparathyroi dism (HCC) [facility] [address] [facility] [address] [place] [phone] Social History Tobacco Use Types Packs/Day Years [...] Sig Dispensed Refills Start Date End Date [id number] Take by mouth. 0 2020 tawana (Citracal-D3 Maximum Taking 3-4 daily Plus) 325 mg-12.5 mcg -2.75 mg tablet ESTRIOL MICRONIZED, BULK, Three Times Weekly 0 [facility] lidocaine-prilocaine Apply 1 application 30 g 0 2020 (EMLA) 2.5-2.5 % cream topically as needed for pain (30 minutes prior to port access). magnesium oxide (MAG-OX) Take 400 mg by 0 021 400 mg (241.3 mg mouth. Taking 4 magnesium) tablet tablets daily ondansetron (ZOFRAN) 8 mg Take 1 tablet (8 mg 30 tablet 3 0 06/07/2020 tabletIndications: total) by mouth Malignant Neoplasm Of every 8 (eight) Pancreas Adenocarcinoma hours as needed for (HCC) nausea or vomiting (unrelieved by prochlorperazine). calcitRIOL (ROCALTROL) Patient is taking 5 0 05/2509/02/2020 0.25 mcg capsule pills per day. calcitRIOL (ROCALTROL) 0 04/14/2020 0.5 mcg capsule CALCIUM CITRATE ORAL Citracal 0 11/25/200908/26 calcium citrate-vitamin 3 tablets daily with 0 09/14/2020 D3 (CITRACAL PETITES) 200 breakfast. mg-6.25 mcg (250 Unit) per tablet CHOLECALCIFEROL, VITAMIN Vitamin D3 1000 intl 0 0 11/25/2009 09/14/2020 D3, ORAL units oral tablet dexAMETHasone (DECADRON) Take 2 tablets (8 mg 6 tablet 3 0 06/07/2020 07/27/2020 4 mg tabletIndications: total) by mouth Malignant Neoplasm Of daily. Take for 3 Pancreas Adenocarcinoma days on Days 2, 3, (HCC) and 4. levothyroxine sodium Synthroid 0 11/25/200908/26 (LEVOTHYROXINE ORAL) lisinopriL Take 20 mg by mouth. 0 04/10/2020 07/0 03/2021 (PRINIVIL,ZESTRIL) 20 mg tablet loperamide (IMODIUM A-D) PLEASE SEE ATTACHED 0 09/10/2020 2 mg capsule FOR DETAILED DIRECTIONS LORazepam (ATIVAN) 0.5 mg Take 1 tablet (0.5 30 tablet 3 09/16/2021 tabletIndications: mg total) by mouth Malignant Neoplasm Of every 8 (eight) Pancreas Adenocarcinoma hours as needed (HCC) (nausea, vomiting) for up to 30 doses. If ineffective, may repeat once after 30 minutes. NON FORMULARYIndications: Estriol 0.3% Vaginal 30 g 11 07/03/2017 09/16/2021 Atrophy Vagina Due To Cream, compounded. 1 Estrogen Deficiency gram vaginally nightly for 7 days, then 3 nights each week. Disp. 30 g, 11 refills prochlorperazine Take 1 tablet (10 mg 30 tablet 3 1 07/13/2021 (COMPAZINE) 10 mg total) by mouth tabletIndications: every 6 (six) hours Malignant Neoplasm Of as needed for nausea Pancreas Adenocarcinoma or vomiting. (HCC) documented as of this encounter Plan of Treatment Upcoming Encounters Date Type Specialty Care Team Description 11/19/2021 Clinical Communication Admitting/Central Scheduling 11/23/2021 Comprehensive Visit Neurology Kenji Zaldivar M.D. [address] [place] [phone] documented as of this encounter Procedures Procedure Name Priority Date/Time Associated Diagnosis Comme nts BMD BONE DENSITY RAD - Routine 07/24/2020 11:22 Malignant Neoplasm Of Results for SPINE HIPS (most inpatients AM CDT Pancreas this proced ure and all Adenocarcinoma ( HCC) are in the outpatients) Hypocalcemia results Hypoparathyroidism section. (HCC) documented in this encounter Results BMD Bone Density Spine Hips (07/24/2020 11:22 AM CDT) Anatomical Region Laterality Modality Hip, Lumbar Spine, Nuclear Medicine RST LOS, N/A Radiographic Imaging Musculoskeletal ARZ LOS, Muskuloskeletal FLA LOS Specimen (Source) Anatomical Collection Method Collection Time Re ceived Time Location / / Volume Laterality 07/24/2020 12:10 PM CDT Impressions 07/24/2020 12:10 PM CDT Osteopenia Narrative 07/24/2020 12:10 PM CDT EXAM: ??BMD BONE DENSITY SPINE HIPS FINDINGS: Left Hip [single scan]: ?Femur Neck: BMD = ??0.845 g/cm (sq ) ?T-score = -1.4 ?Z-score = ? ?1.0 ?Total Hip: BMD = ??0.820 g/cm (sq) ?T-score = -1.5 ?Z-score = ? ?0.7 Right Hip [single scan]: ?Femur Neck: BMD = ??0.817 g/cm (sq ) ?T-score = -1.6 ?Z-score = ? ?0.8 ?Total Hip: BMD = ??0.812 g/cm (sq) ?T-score = -1.6 ?Z-score = ? ?0.7 Lumbar Spine ??[single scan]: ?L1: BMD = 0.892 g/cm (sq), T-score =-2.0, Z-score = 0.2 ?L2: BMD = 0.988 g/cm (sq), T-score =-1.8, Z-score = 0.4 ?Total Lumbar Spine: BMD = ??0.944 g/cm (sq) ?T-score = -1.9 ?Z-score = ? ?0.3 Trabecular Bone Scores: ?L1-L2: TBS = 1.222 Please note: A more comprehensive DXA re port, including images and graphs, is available in [email or web address]. ?In the absence of other causes of low BMD or demonstrated skeletal ?fragility, osteoporosis may be christo gnosed in post-menopausal ? women when the T-score i s at or below -2.5 as defined by ?the WHO. Osteopenia is present at T-scores between -1 and -2.5 and ?normal BMD when T-score is at or a monse -1.0. The diagnosis in ?pre-menopausal women and men can b e based on low bone mass or ?evidence of skeletal fragility in the appropriate clinical setting. Degenerative changes are present which m ay spuriously elevate the spine BMD measurement. Patient does not meet ISCD guidelines fo r FRAX calculations. Procedure Note Andrés Liao M.D., Ph.D. - 07/25/19 21 EXAM: BMD BONE DENSITY SPINE HIPS FINDINGS: Left Hip [single scan]: Femur Neck: BMD = 0.845 g/cm (sq) T-score = -1.4 Z-score = 1.0 Total Hip: BMD = 0.820 g/cm (sq) T-score = -1.5 Z-score = 0.7 Right Hip [single scan]: Femur Neck: BMD = 0.817 g/cm (sq) T-score = -1.6 Z-score = 0.8 Total Hip: BMD = 0.812 g/cm (sq) T-score = -1.6 Z-score = 0.7 Lumbar Spine [single scan]: L1: BMD = 0.892 g/cm (sq), T-score =-2. 0, Z-score = 0.2 L2: BMD = 0.988 g/cm (sq), T-score =-1. 8, Z-score = 0.4 Total Lumbar Spine: BMD = 0.944 g/cm (s q) T-score = -1.9 Z-score = 0.3 Trabecular Bone Scores: L1-L2: TBS = 1.222 Please note: A more comprehensive DXA re port, including images and graphs, is available in QREADS. In the absence of other causes of low B MD or demonstrated skeletal fragility, osteoporosis may be diagnose d in post-menopausal women when the T-score is at or below -2.5 as defined by the WHO. Osteopenia is present at T-sco res between -1 and -2.5 and normal BMD when T-score is at or above -1.0. The diagnosis in pre-menopausal women and men can be bas ed on low bone mass or evidence of skeletal fragility in the a ppropriate clinical setting. Degenerative changes are present which m ay spuriously elevate the spine BMD measurement. Patient does not meet ISCD guidelines fo r FRAX calculations. IMPRESSION: Osteopenia Kimberly Rios APRN C.N.P., M.S. 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
--- OUTSIDE RECORDS SUMMARY | 2021-11-03 07:08 | XMS_ITS | Encounter Summary ---
:1940 Author Organization [facility] Address [address] [place] [address] Care Team Providers Name Role Phone Unavailable Primary Care Provider Unavailable Reason for Referral Outpatient (Routine) - Closed Specialty Diagnoses / Procedures Referred By Contact Refer red To Contact Diagnoses Malignant Neoplasm Of Pancreas Adenocarcinoma (HCC) Nova Vivar M.Laure.B.S. [facility] Procedures ONC Pump Disconnect [address] [place] [phone] Referral ID Status Reason Start Date Expiration Date Visits Requ ested Visits Authorized [id number] Closed 07/21/2020 07/21/2021 1 1 Reason for Visit Episode Based Medications (Routine) - Authorized Specialty Diagnoses / Procedures Referred By Contact Refer red To Contact Diagnoses Malignant Neoplasm Of Pancreas Adenocarcinoma (HCC) Neutropenia Chemotherapy Induced (HCC) Kimberly Rios, Rst Onc Coy HIGH C.N.P., M.S. [address] [facility] [address] [place] [phone] Referral ID Status Reason Start Date Expiration Date Visits V isits Requested Authorized [id number] Authorized 06/03/2020 06/03/2021 99 99 Encounter Details Date Type Department Care Team Description 07/21/2020 Infusion Department of Oncology Kimberly Rios Ma lignant Neoplasm Of in Alan Obrien APRN C.N.P., Pancreas A denocarcinoma [place] M.S. (HCC) (Primary Dx) [address] [place] [phone] Social History Tobacco Use Types Packs/Day Years [...] More than 4 times per year 06/19/2021 [facility]? Do you belong to any clubs [...] Sign Reading Time Taken Comments Blood Pressure 163/72 07/21/2020 8:10 AM CDT Pulse 77 07/21/2020 8:10 AM CDT Temperature 36.6 ??C (97.9 ??F) 07/21/2020 8:10 AM CDT Respiratory Rate - - Oxygen Saturation - - Inhaled Oxygen Concentration - - Weight 51.9 kg (114 lb 4.9 oz) 07/21/2020 8:10 AM CDT Height - - Body Mass Index 18.93 07/20/2020 1:46 PM CDT documented in this encounter Plan of Treatment Upcoming Encounters Date Type Specialty Care Team Description 11/19/2021 Clinical Communication Admitting/Central Scheduling 11/23/2021 Comprehensive Visit Neurology Kenji Zaldivar M.D. 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 Give subcutaneously if unable to give IV. Patient prefers SQ. D5W infusion New Bag 07/21/2020 1:51 PM CDT 10 mL/hr 10 mL/hr 10-250 mL/hr, intravenous, As needed, Medications Incompatible with 0.9% NaCl, Starting on Mon07/21/20 at 0842, Infuse at the same rate as the piggyback until tubing clears or up to a volume of 20 mL pre and post infusion for medications incompatible with 0.9% NaCL. Use 100 mL bag then discard. dexamethasone in NaCl 0.9% IVPB 12 New Bag 07/21/2020 8:45 AM CDT 12 mg 200 mL/hr mg (DECADRON) 12 mg, intravenous, at 200 mL/hr, Administer over 15 Minutes, Once, On Mon07/21/20 at 0845, For 1 dose, Refrigerate fluorouraciL 3,500 mg in NaCl 0.9% 92 Given 07/21/2020 1:52 PM CDT 3,500 mg 2 mL/hr mL IVPB (ADRUCIL) 3,500 mg (rounded from 3,744 mg = 2,400 mg/m2 ? 1.56 m2 Order-specific BSA), intravenous, at 2 mL/hr, Administer over 46 Hours, over 46 hours, First dose on Mon07/21/20 at 1315, For 1 dose, Infuse at 2 mL/hr for 46 hours continuous infusion via CADD pump # [id number] fosaprepitant 150 mg in NaCl 0.9% New Bag 07/21/2020 9:28 AM C DT 150 mg 510 mL/hr IVPB (EMEND) 150 mg, intravenous, at 510 mL/hr, Administer over 30 Minutes, Once, On Mon07/21/20 at 0845, For 1 dose, Incompatible with solutions containing divalent cations (calcium, magnesium) including lactated Ringer's solution. irinotecan 220 mg in D5W 559 mL New Bag 07/21/2020 12:10 PM CD T 220 mg 373 mL/hr IVPB (CAMPTOSAR) 220 mg (rounded from 224.64 mg = 144 mg/m2 ? 1.56 m2 Order-specific BSA), intravenous, at 373 mL/hr, Administer over 90 Minutes, Once, On Mon07/21/20 at 1145, For 1 dose, May be given via y-site with leucovorin. Protect from light. leucovorin 600 mg in D5W 305 mL New Bag 07/21/2020 12:10 PM CD T 600 mg 203 mL/hr IVPB 600 mg (rounded from 624 mg = 400 mg/m2 ? 1.56 m2 Order-specific BSA), intravenous, at 203 mL/hr, Administer over 90 Minutes, Once, On Mon07/21/20 at 1145, For 1 dose, Can be given via y-site with irinotecan. NaCl 0.9 % bolus 1,000 mL Restarted 07/21/2020 12:17 PM CDT 1000 mL/hr 1,000 mL, intravenous, at 1,000 mL/hr, Administer over 1 Hours, Once, On Mon07/21/20 at 0845, For 1 dose New Bag 07/21/2020 8:45 AM CDT 1,000 mL 1000 mL/hr ondansetron in NaCl 0.9% IVPB 16 mg New Bag 07/21/2020 9:04 AM CDT 16 mg 232 mL/hr (ZOFRAN) 16 mg, intravenous, at 232 mL/hr, Administer over 15 Minutes, Once, On Mon07/21/20 at 0845, For 1 dose oxaliplatin 100 mg in D5W 295 mL New Bag 07/21/2020 10:00 AM C DT 100 mg 148 mL/hr IVPB (ELOXATIN) 100 mg (rounded from 106.08 mg = 68 mg/m2 ? 1.56 m2 Order-specific BSA), intravenous, at 148 mL/hr, Administer over 2 Hours, Once, On Mon07/21/20 at 0945, For 1 dose, Flush infusion line with dextrose 5 % in water prior to administration of any concomitant medication. documented in this encounter
--- OUTSIDE RECORDS SUMMARY | 2021-11-03 07:08 | XMS_ITS | Encounter Summary ---
:1940 Author Organization [facility] Address [address] [place] [address] Care Team Providers Name Role Phone Unavailable Primary Care Provider Unavailable Reason for Visit Episode Based Medications (Routine) - Authorized Specialty Diagnoses / Procedures Referred By Contact Refer red To Contact Diagnoses Malignant Neoplasm Of Pancreas Adenocarcinoma (HCC) Neutropenia Chemotherapy Induced (HCC) Kimberly Rios, Rst Onc oCy HIGH C.N.P., M.S. [address] [facility] [address] [place] [phone] Referral ID Status Reason Start Date Expiration Date Visits V isits Requested Authorized [id number] Authorized 06/03/2020 06/03/2021 99 99 Encounter Details Date Type Department Care Team Description 08/03/2020 Lab Department of Infusion Kimberly Rios, Malignant Neoplasm Of Therapy in [facility] LENNOX C.N. P., M.S. Pancreas Adenocarcinoma [place] [address] [place] [address] (HCC) (Primary Dx) [address] [place] [phone] Social History Tobacco Use Types Packs/Day Years [...] Visit Neurology Kenji Zaldivar M.D. [address] [place] [address] documented as of this encounter Procedures Procedure Name Priority Date/Time Associated Diagnosis Comme nts CARBOHYDRATE AG 19-9 Routine 08/03/2020 9:39 Malignant Neoplas m Of Results for this (CA 19-9), S AM CDT Pancreas procedure are i n Adenocarcinoma (HCC) the res ults section. CBC WITH Routine 08/03/2020 9:39 Malignant Neoplasm Of Res ults for this DIFFERENTIAL, B AM CDT Pancreas procedure ar e in Adenocarcinoma (HCC) the res ults section. MAGNESIUM, S Routine 08/03/2020 9:39 Malignant Neoplasm Of Res ults for this AM CDT Pancreas procedure are i n Adenocarcinoma (HCC) the res ults section. BILIRUBIN DIRECT, S/P Routine 08/03/2020 9:39 Malignant Neopla sm Of Results for this AM CDT Pancreas procedure are i n Adenocarcinoma (HCC) the res ults section. COMPREHENSIVE Routine 08/03/2020 9:39 Malignant Neoplasm Of Re sults for this METABOLIC PANEL, S/P AM CDT Pancreas procedu re are in Adenocarcinoma (HCC) the res ults section. documented in this encounter Results (ABNORMAL) Carbohydrate Antigen 19-9 (CA 19-9) (08/03/2020 9:39 AM CDT) Analysis Performed At Patho logist Time Signature Carbohydrate Ag 98 (H) <35 U/mL 08/03/2020 [facility] 19-9, S 3:04 PM CDT Comment: ----ADDITIONAL INFORMATION---- The testing method is an immunoenzymatic assay manufactured by [employer]. and performed on the [employer] 800. ? Values obtained with different assay met hods or kits may be different and cannot be used inte rchangeably. ? Test results cannot be interpreted as ab solute evidence for the presence or absence of malignant disease. Specimen Anatomical Collection Method Collection Time Receive d Time (Source) Location / / Volume Laterality Blood (Blood, 08/03/2020 9:39 AM 08/04/19 1:56 Venous) CDT PM CDT Nova ZamoraB.S. LAB BLOOD ADD-ON Performing Organization Address City/State/ZIP Code Phon e Number [facility] [address] [place], [place] [address] [facility] [place] [address] Laboratory Medicine and Pathology [address] [place] Magnesium (08/03/2020 9:39 AM CDT) athologist Signature Magnesium, S 2.0 1.7 - 2.3 08/03/2020 DTL mg/dL 10:43 AM CDT Specimen Anatomical Collection Method Collection Time Receive d Time (Source) Location / / Volume Laterality Blood (Blood, 08/03/2020 9:39 AM 08/04/19 9:53 Venous) CDT AM CDT Nova ZamoraB.S. LAB BLOOD ADD-ON Performing Organization Address City/[facility] Phon e Number [facility] - [address] [place] [address] [place] [address] Bilirubin, Direct (08/03/2020 9:39 AM CDT) athologist Signature Bilirubin, <0.2 0.0 - 0.3 08/03/2020 DTL Direct, S mg/dL 10:53 AM CDT Specimen Anatomical Collection Method Collection Time Receive d Time (Source) Location / / Volume Laterality Blood (Blood, 08/03/2020 9:39 AM 08/04/19 9:52 Venous) CDT AM CDT Kimberly Rios APRN, C.N.P., M.S. LAB BLOOD ADD-ON Performing Organization Address [facility] Phon e Number [address] [place] [phone] (ABNORMAL) Comprehensive Metabolic Panel (08/03/2020 9:39 AM CDT) athologist Signature Potassium, S 4.0 3.6 - 5.2 08/03/2020 DTL mmol/L 10:53 AM CDT Sodium, S 141 135 - 145 08/03/2020 DTL mmol/L 10:53 AM CDT Chloride, S 102 98 - 107 08/03/2020 DTL mmol/L 10:53 AM CDT Bicarbonate, S 29 22 - 29 08/03/2020 DTL mmol/L 10:53 AM CDT Anion Gap 10 7 - 15 08/03/2020 DTL 10:53 AM CDT BUN (Blood Urea 15 6 - 21 08/03/2020 DTL Nitrogen), S mg/dL 10:53 AM CDT Creatinine, S 0.86 0.59 - 1.04 08/03/2020 DTL mg/dL 10:53 AM CDT eGFR-Non 65 >=60 08/03/2020 DTL Black/ mL/min/BSA 10:53 AM CDT Japanese Comment: ----ADDITIONAL INFORMATION---- Estimated GFR calculated using the 2008 CKD_EPI creatinine equation. eGFR-Black/ 75 >=60 mL/min/BSA 2020 10:53 AM CDT DTL Comment: ----ADDITIONAL INFORMATION---- Estimated GFR calculated using the 2009 CKD_EPI creatinine equation. Calcium, Total, S 8.8 8.8 - 10.2 mg/dL 08/03/2020 10:5 3 AM CDT DTL Glucose, S 88 70 - 140 mg/dL 08/03/2020 10:53 AM CDT DTL Protein, Total, S 6.0 (L) 6.3 - 7.9 g/dL 08/03/2020 10:53 AM CDT DTL Albumin, S 4.2 3.5 - 5.0 g/dL 08/03/2020 10:53 AM CDT DTL Aspartate Aminotransferase 24 8 - 43 U/L 08/03/2020 1 0:53 AM CDT DTL (AST), S Alkaline Phosphatase, S 63 35 - 104 U/L 08/03/2020 10 :53 AM CDT DTL Alanine Aminotransferase 19 7 - 45 U/L 08/03/2020 10: 53 AM CDT DTL (ALT), S Bilirubin, Total, S 0.2 <=1.2 mg/dL 08/03/2020 10:53 A M CDT DTL Specimen Anatomical Collection Method Collection Time Receive d Time (Source) Location / / Volume Laterality Blood (Blood, 08/03/2020 9:39 AM 08/04/19 9:52 Venous) CDT AM CDT Kimberly Rois APRN C.N.P., M.S. LAB BLOOD ADD-ON Performing Organization Address City/State/ZIP Code Phon e Number [facility] - [address] [place], [place] [address] [facility] [place] [address] Laboratories-[facility] [address] (ABNORMAL) CBC with Differential, Blood (08/03/2020 9:39 AM CDT) [facility] gist Method Time Signature Hemoglobin 9.4 (L) 11.6 - 08/03/2020 DTL 15.0 g/dL 10:13 AM CDT Hematocrit 28.7 (L) 35.5 - 08/03/2020 DTL 44.9 % 10:13 AM CDT Erythrocytes 2.92 (L) 3.92 - 08/03/2020 DTL 5.13 10:13 AM CDT x10(12)/L MCV 98.3 (H) 78.2 - 08/03/2020 DTL 97.9 fL 10:13 AM CDT RBC Distrib Width 15.7 12.2 - 08/03/2020 DTL 16.1 % 10:13 AM CDT Platelet Count 201 157 - 371 08/03/2020 DTL x10(9)/L 10:13 AM CDT Leukocytes 3.7 3.4 - 9.6 08/03/2020 DTL x10(9)/L 10:13 AM CDT Neutrophils 2.58 1.56 - 08/03/2020 DTL 6.45 10:13 AM CDT x10(9)/L Lymphocytes 0.59 (L) 0.95 - 08/03/2020 DTL 3.07 10:13 AM CDT x10(9)/L Monocytes 0.44 0.26 - 08/03/2020 DTL 0.81 10:13 AM CDT x10(9)/L Eosinophils 0.04 0.03 - 08/03/2020 DTL 0.48 10:13 AM CDT x10(9)/L Basophils <0.03 0.01 - 08/03/2020 DTL 0.08 10:13 AM CDT x10(9)/L Specimen Anatomical Collection Method Collection Time Receive d Time (Source) Location / / Volume Laterality Blood (Blood, 08/03/2020 9:39 AM 08/04/19 21 9:53 Venous) CDT AM CDT Kimberly Rios APRN C.N.P., M.S. LAB BLOOD ADD-ON Performing Organization Address City/State/ZIP Code Phon e Number [facility] - [address] [place], [place] [address] [facility] [place] [address] Laboratories-[facility] [address] documented in this encounter Visit Diagnoses Diagnosis Malignant Neoplasm Of Pancreas Adenocarc inoma (HCC) - Primary documented in this encounter Administered Medications Inactive Administered Medications - up to 3 most recent administrations Medication Order MAR Action Action Date Dose Rate Site heparin flush 500 Units Given 08/03/2020 9:43 AM CDT 500 Units 500 Units, intra-catheter, As needed, line care, Starting on Mon08/03/20 at 0929, When no infusion to maintain patency: For IVAD accessed, not in use, and/or prior to hospital discharge, flush every 7 days after 0.9% preservative-free NaCL flush. For IVAD NOT accessed or used, flush every 4 weeks after 0.9% preservative-free NaCL flush. sodium chloride 0.9 % injection 20 mL Given 08/03/2020 9:43 AM CDT 20 mL 20 mL, intra-catheter, As needed, line care, Starting on Mon08/03/20 at 0929, When IVAD Accessed and in Use: Flush post blood transfusion or post blood sampling. documented in this encounter
--- OUTSIDE RECORDS SUMMARY | 2021-11-03 07:08 | XMS_ITS | Encounter Summary ---
:1940 Author Organization [facility] Address [address] [place] [address] Care Team Providers Name Role Phone Unavailable Primary Care Provider Unavailable Reason for Visit Episode Based Medications (Routine) - Authorized Specialty Diagnoses / Procedures Referred By Contact Refer red To Contact Diagnoses Malignant Neoplasm Of Pancreas Adenocarcinoma (HCC) Neutropenia Chemotherapy Induced (HCC) Kimberly Rios, Rsmarleen Onc Coy HIGH C.N.P., M.S. [address] [place] [address] [place] [phone] Referral ID Status Reason Start Date Expiration Date Visits V isits Requested Authorized [id number] Authorized 06/03/2020 06/03/2021 99 99 Encounter Details Date Type Department Care Team Description 07/07/2020 Lab Department of Laboratory Kimberly Rios, Malignant Neoplasm Of Medicine and Pathology, LENNOX C. N.P., M.S. Pancreas Adenocarcinoma [place], in [address] [place] [address] (HCC) (Primary Dx) [place], [place] [address] [place] [phone] [place] [phone] Social History Tobacco Use Types Packs/Day [...] More than 4 times per year 06/19/2021 [employer] services? Do you belong to any clubs [...] Visit Neurology Kenji Zaldivar M.D. [address] [place] [phone] documented as of this encounter Procedures Procedure Name Priority Date/Time Associated Diagnosis Comme nts CBC WITH Routine 07/07/2020 7:43 Malignant Neoplasm Of Res ults for this DIFFERENTIAL, B AM CDT Pancreas procedure ar e in Adenocarcinoma (HCC) the res ults section. MAGNESIUM, S Routine 07/07/2020 7:43 Malignant Neoplasm Of Res ults for this AM CDT Pancreas procedure are i n Adenocarcinoma (HCC) the res ults section. BILIRUBIN DIRECT, S/P Routine 07/07/2020 7:43 Malignant Neopla sm Of Results for this AM CDT Pancreas procedure are i n Adenocarcinoma (HCC) the res ults section. COMPREHENSIVE Routine 07/07/2020 7:43 Malignant Neoplasm Of Re sults for this METABOLIC PANEL, S/P AM CDT Pancreas procedu re are in Adenocarcinoma (HCC) the res ults section. documented in this encounter Results Magnesium (07/07/2020 7:43 AM CDT) athologist Signature Magnesium, S 2.2 1.7 - 2.3 07/07/2020 DTL mg/dL 8:28 AM CDT Specimen Anatomical Collection Method Collection Time Receive d Time (Source) Location / / Volume Laterality Blood (Blood, 07/07/2020 7:43 AM 07/08/19 7:59 Venous) CDT AM CDT Kimberly Rios APRN, C.N.P., M.S. LAB BLOOD ADD-ON Performing Organization Address City/[facility] Phon e Number [facility] - [address] Bilirubin, Direct (07/07/2020 7:43 AM CDT) athologist Signature Bilirubin, <0.2 0.0 - 0.3 07/07/2020 DTL Direct, S mg/dL 8:28 AM CDT Specimen Anatomical Collection Method Collection Time Receive d Time (Source) Location / / Volume Laterality Blood (Blood, 07/07/2020 7:43 AM 07/08/19 7:59 Venous) CDT AM CDT Trace Rudolph APRNN.P., M.S. LAB BLOOD ADD-ON Performing Organization Address City/State/[facility] Phon e Number [facility] - [address] (ABNORMAL) Comprehensive Metabolic Panel (07/07/2020 7:43 AM CDT) athologist Signature Potassium, S 3.6 3.6 - 5.2 07/07/2020 DTL mmol/L 8:28 AM CDT Sodium, S 140 135 - 145 07/07/2020 DTL mmol/L 8:28 AM CDT Chloride, S 97 (L) 98 - 107 07/07/2020 DTL mmol/L 8:28 AM CDT Bicarbonate, S 34 (H) 22 - 29 07/07/2020 DTL mmol/L 8:28 AM CDT Anion Gap 9 7 - 15 07/07/2020 DTL 8:28 AM CDT BUN (Blood 20 6 - 21 07/07/2020 DTL Urea mg/dL 8:28 AM CDT Nitrogen), S Creatinine, S 1.13 (H) 0.59 - 07/07/2020 DTL 1.04 mg/dL 8:28 AM CDT eGFR-Non 47 (L) >=60 07/07/2020 DTL Black/ mL/min/BSA 8:28 AM CDT Swiss Comment: ----ADDITIONAL INFORMATION---- Estimated GFR calculated using the 2009 CKD_EPI creatinine equation. eGFR-Black/ 54 (L) >=60 mL/min/BSA 2020 8:28 AM CDT DTL Comment: ----ADDITIONAL INFORMATION---- Estimated GFR calculated using the 2009 CKD_EPI creatinine equation. Calcium, Total, S 11.4 (H) 8.8 - 10.2 mg/dL 07/07/2020 8:28 AM CDT DTL Glucose, S 99 70 - 140 mg/dL 07/07/2020 8:28 AM CDT D TL Protein, Total, S 6.6 6.3 - 7.9 g/dL 07/07/2020 8:28 A M CDT DTL Albumin, S 4.2 3.5 - 5.0 g/dL 07/07/2020 8:28 AM CDT D TL Aspartate Aminotransferase 18 8 - 43 U/L 07/07/2020 8 :28 AM CDT DTL (AST), S Alkaline Phosphatase, S 70 35 - 104 U/L 07/07/2020 8: 28 AM CDT DTL Alanine Aminotransferase 18 7 - 45 U/L 07/07/2020 8:2 8 AM CDT DTL (ALT), S Bilirubin, Total, S 0.3 <=1.2 mg/dL 07/07/2020 8:28 AM CDT DTL Specimen Anatomical Collection Method Collection Time Receive d Time (Source) Location / / Volume Laterality Blood (Blood, 07/07/2020 7:43 AM 07/08/19 7:59 Venous) CDT AM CDT Kimberly Rios APRN, C.N.P., M.S. LAB BLOOD ADD-ON Performing Organization Address City/State/ZIP Code Phon e Number [facility] - 200 [place], [place] [address] [facility] [place] [address] Laboratories-[facility] [address] [facility] (ABNORMAL) CBC with Differential, Blood (07/07/2020 7:43 AM CDT) [facility] Method Time Signature Hemoglobin 10.4 (L) 11.6 - 07/07/2020 DTL 15.0 g/dL 8:13 AM CDT Hematocrit 31.1 (L) 35.5 - 07/07/2020 DTL 44.9 % 8:13 AM CDT Erythrocytes 3.27 (L) 3.92 - 07/07/2020 DTL 5.13 8:13 AM CDT x10(12)/L MCV 95.1 78.2 - 07/07/2020 DTL 97.9 fL 8:13 AM CDT RBC Distrib Width 13.5 12.2 - 07/07/2020 DTL 16.1 % 8:13 AM CDT Platelet Count 228 157 - 371 07/07/2020 DTL x10(9)/L 8:13 AM CDT Leukocytes 3.8 3.4 - 9.6 07/07/2020 DTL x10(9)/L 8:13 AM CDT Neutrophils 2.49 1.56 - 07/07/2020 DTL 6.45 8:13 AM CDT x10(9)/L Lymphocytes 0.54 (L) 0.95 - 07/07/2020 DTL 3.07 8:13 AM CDT x10(9)/L Monocytes 0.68 0.26 - 07/07/2020 DTL 0.81 8:13 AM CDT x10(9)/L Eosinophils 0.07 0.03 - 07/07/2020 DTL 0.48 8:13 AM CDT x10(9)/L Basophils <0.03 0.01 - 07/07/2020 DTL 0.08 8:13 AM CDT x10(9)/L Specimen Anatomical Collection Method Collection Time Receive d Time (Source) Location / / Volume Laterality Blood (Blood, 07/07/2020 7:43 AM 07/08/19 7:58 Venous) CDT AM CDT Kimberly Rios APRN, C.N.P., M.S. LAB BLOOD ADD-ON Performing Organization Address City/State/ZIP Code Phon e Number [facility] - [address] [place], [place] [address] [facility] [place] [address] Laboratories-[facility] [address] documented in this encounter Visit Diagnoses Diagnosis Malignant Neoplasm Of Pancreas Adenocarc inoma (HCC) - Primary documented in this encounter Administered Medications Inactive Administered Medications - up to 3 most recent administrations Medication Order MAR Action Action Date Dose Rate Site heparin flush 500 Units Given 07/07/2020 7:41 AM CDT 500 Units 500 Units, intra-catheter, As needed, line care, Starting on Mon07/07/20 at 0740, When no infusion to maintain patency: For IVAD accessed, not in use, and/or prior to hospital discharge, flush every 7 days after 0.9% preservative-free NaCL flush. For IVAD NOT accessed or used, flush every 4 weeks after 0.9% preservative-free NaCL flush. sodium chloride 0.9 % injection 10 mL Given 07/07/2020 7:41 AM CDT 10 mL 10 mL, intra-catheter, As needed, line care, Starting on Mon07/07/20 at 0740, When IVAD Accessed and in Use: Flush prior to and following infusion, between multiple consecutive infusions, and prior to blood sampling. sodium chloride 0.9 % injection 20 mL Given 07/07/2020 7:41 AM CDT 20 mL 20 mL, intra-catheter, As needed, line care, Starting on Mon07/07/20 at 0740, When IVAD Accessed and in Use: Flush post blood transfusion or post blood sampling. documented in this encounter
--- OUTSIDE RECORDS SUMMARY | 2021-11-03 07:08 | XMS_ITS | Encounter Summary ---
:1940 Author Organization [facility] Address [address] [place] [address] Care Team Providers Name Role Phone Unavailable Primary Care Provider Unavailable Reason for Visit Outpatient (Routine) - Closed Specialty Diagnoses / Procedures Referred By Contact Refer red To Contact Endocrinology Diagnoses Malignant Neoplasm Of Pancreas Adenocarcinoma (HCC) Hypocalcemia Hypoparathyroidism (HCC) [facility] LEN[facility], C.N.P., M.S. [address] [place] [address] Referral ID Status Reason Start Date Expiration Date Visits Requ ested Visits Authorized [id number] Closed 07/07/2020 07/07/2021 1 1 Encounter Details Date Type Department Care Team Description 07/27/2020 Comprehensive Visit Division of Vi Cid Neoplasm Of Pancreas Adenocarcinoma (HCC); Endocrinology in Konrad Phillips Hypocalcemi a; [place], [place] Kasey Hypoparathyroidism (HCC) [address] [facility] [address] [place] [phone] [facility] [phone] [place] [phone] Social History Tobacco Use Types Packs/Day Years [...] 06/19/2021 organizations such as restorationist groups, unions, fraTRIBAX or athletic groups, or school groups? How [...] documented as of this encounter Consult Notes Konrad Cid M.D. - 07/27/2020 9:00 AM CDT SUBJECTIVE REFERRAL SOURCE Kimberly Rios RN, [facility], Department of Medical Oncology. REASON FOR CONSULT Post-pancreatic cancer chemotherapy-induced hypocalcemia. HISTORY OF PRESENT ILLNESS The patient is a very pleasant 80-year-old female referred for evaluation and management of post-pancreatic cancer chemotherapy-induced hypocalcemia. The patient indicates that she developed numbness and tingling suggestive of autoimmune hypoparathyroidism as far back as a year ago. Neurologic evaluation showed no evidence of peripheral neuropathy. More recently, because of pancreatic cancer chemotherapy, she has had frequent hypercalcemia to the 5-6 mg/dL range after chemotherapy. Her serum calcium has decreased to as low as 7.5 mg/dL here, but as low as 5-6 mg/dL at home. Her hypocalcemia has mostly developed within several days after chemotherapy. Because her serum calcium levels have not been checked sequentially after chemotherapy is given,it is not clear exactly when she develops hypocalcemia. Advised the patient to take Citracal four tablets each day and calcitriol 0.25 mcg four tablets eachday on the day before chemotherapy and on the day of chemotherapy. She was given a standing order tocheck her serum calcium later in the day on the day she receives chemotherapy. She will then monitorher serum calcium for the next several days to see when her hypocalcemia develops. The patient has gone hypercalcemic to 11.4 mg/dL when given calcitriol 0.25 mcg two tablets each day and Citracal three tablets each day for four days before chemotherapy. The patient does not currently require magnesium supplementation. She does not require a thiazide-type diuretic. The patient has not previously had bronchospasm, laryngospasm, seizures, or cardiac rhythm disturbances as a result of hypocalcemia. The patient never had hypocalcemia before a year ago. 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 She has never had anterior neck surgery to cause postsurgical hypoparathyroidism. No previous family history of of hypercalcemia, hypoparathyroidism, osteoporosis, other metabolic bone disease, calcium-containing kidney stones, blue sclerae, or hyperextensible joints. She has not previously had calcium- containing kidney stones. No previous treatment with high-dose glucocorticoid therapy, anti-seizure medication, or over-replacement with L-thyroxine therapy. The patient currently takes premedication with dexamethasone 4 mg two tablets for three days on days 2, 3, and 4 of each cycle of chemotherapy. This will block absorption of calcium supplements on these days and may contributing to her hypocalcemia. The following portions of the patient's history were reviewed and updated as appropriate: allergies,current medication, family history, medical history, surgical history, social history, problem list. PHYSICAL EXAMINATION General: Well-nourished, well-developed healthy-appearing female, in no acute distress. Skin: Scattered moles. No acanthosis nigricans, xanthomas, or xanthelasma. Eyes: Sclerae are white. No obvious cataracts or arcus senilis. ENT: Hearing intact. Dentition in good repair. Thyroid: No visible enlargement. Spine: No significant kyphosis. Extremities: No edema. Gait: Normal. Balance: Normal. Mental Status: Intact. ASSESSMENT / PLAN #1 Post-pancreatic cancer chemotherapy-induced hypocalcemia The patient had not had hypocalcemia of consequence before beginning chemotherapy. She believes thather first symptoms of hypocalcemia may have started as far as a year ago, suggesting subacute onset of autoimmune hypoparathyroidism at that time. The patient's parathyroid hormone levels have increased to the mid-normal range when simultaneously drawn with hypocalcemic laboratory values. This implies she has at least partial ability to secrete parathyroid hormone in response to low serum calcium. Advised her to take extra Citracal and calcitriol the day before her next chemotherapy, and on the morning of her chemotherapy, and that her serum calcium should be checked that afternoon and the next morning, and for the next several days after her chemotherapy is given. This will help determine whenher serum calcium drops. She will be monitored daily for the next several days after each cycle of chemotherapy is given to see when her calcium level is decreasing. Her doses of calcium and calcitriolwill be rapidly escalated depending on her need. The patient prefers to do some of her laboratory testing at [facility], much closer to home. She will do laboratory testing here on the morning of her next c hemotherapy. No additional recommendations for now. These issues were discussed in detail with the patient and her , and a variety of questions answered during her office visit today. PATIENT EDUCATION: Learning needs assessment was performed. No learning barriers were identified. Explained diagnosis and treatment plan. Patient expressed understanding and was able to teach back. This was a P3 visit for a total time spent with the patient of 40 minutes. Konrad Cid M.D. CT CT Job ID: [id number] documented in this encounter Plan of Treatment Upcoming Encounters Date Type Specialty Care Team Description 11/19/2021 Clinical Communication Admitting/Central Scheduling 11/23/2021 Comprehensive Visit Neurology Kenji Zaldivar M.D. 200 [place] [phone] documented as of this encounter Results (ABNORMAL) Calcium, Total (08/04/2020 4:11 PM CDT) athologist Signature Calcium, 8.4 (L) 8.8 - 10.2 08/04/2020 DTL Total, S mg/dL 4:48 PM CDT Specimen Anatomical Collection Method Collection Time Receive d Time (Source) Location / / Volume Laterality Blood (Blood, 08/04/2020 4:11 PM 08/05/19 4:20 Venous) CDT PM CDT Konrad Cid M.D. LAB BLOOD ADD-ON Performing Organization Address City/State/ZIP Code Phon e Number [facility] - [address] [place], [place] [address] [facility] [place] [address] Laboratories-[facility] [address] documented in this encounter Visit Diagnoses Diagnosis Malignant Neoplasm Of Pancreas Adenocarc inoma (HCC) Hypocalcemia Hypoparathyroidism (HCC) documented in this encounter
--- OUTSIDE RECORDS SUMMARY | 2021-11-03 07:08 | XMS_ITS | Encounter Summary ---
:1940 Author Organization [facility] Address [address] [place] [address] Care Team Providers Name Role Phone Unavailable Primary Care Provider Unavailable Encounter Details Date Type Department Care Team Description 07/23/2020 Clinical Communication Department of Oncology Jose Marquez in [place], J, D.O. [place] [address] [place] [address] Social History Tobacco Use Types Packs/Day Years [...] or relatives? How often do you attend scientology or More than 4 times per year 06/19/2021 lutheran services? Do you belong to any clubs or Yes 06/19/2021 organizations such as scientology groups, unions, fraternal or athletic groups, or [...] this encounter Miscellaneous Notes Telephone Encounter - Jose Marquez D.O. - 07/23/2020 7:07 PM CDT As the fellow monogram operator I received a call from patient regarding calcium supplementation prior to her bone density testing tomorrow. The standard instructions say not to take for 24 hours prior to the procedure and she accidentally took some this morning. It will be approx 21-22 hours in between when she took and the exam. I discussed with her that I see no reason this would be a barrier to be able to proceed with DXA scan tomorrow. She was appreciative of the call. documented in this encounter Plan of Treatment Upcoming Encounters Date Type Specialty Care Team Description 11/19/2021 Clinical Communication Admitting/Central Scheduling 11/23/2021 Comprehensive Visit Neurology Kenji Zaldivar M.D. 200 [place] [address] documented as of this encounter Visit Diagnoses Not on filedocumented in this encounter
--- OUTSIDE RECORDS SUMMARY | 2021-11-03 07:08 | XMS_ITS | Encounter Summary ---
:1940 Author Organization [facility] Address [address] [place] [address] Care Team Providers Name Role Phone Unavailable Primary Care Provider Unavailable Reason for Referral Outpatient (Routine) - Closed Specialty Diagnoses / Procedures Referred By Contact Refer red To Contact Diagnoses Malignant Neoplasm Of Pancreas Adenocarcinoma (HCC) Kimberly Rios APRN, [facility] Procedures ONC Pump Disconnect C.N.P., M.S. [address] [place] [phone] Referral ID Status Reason Start Date Expiration Date Visits Requ ested Visits Authorized [id number] Closed 07/07/2020 07/07/2021 1 1 Reason for Visit Episode Based Medications (Routine) - Authorized Specialty Diagnoses / Procedures Referred By Contact Refer red To Contact Diagnoses Malignant Neoplasm Of Pancreas Adenocarcinoma (HCC) Neutropenia Chemotherapy Induced (HCC) Kimberly Rios, Rst Onc Rogo LENNOX C.N.P., M.S. [address] [facility] 200 [place] [phone] Referral ID Status Reason Start Date Expiration Date Visits V isits Requested Authorized [id number] Authorized 06/03/2020 06/03/2021 99 99 Encounter Details Date Type Department Care Team Description 07/07/2020 Infusion Department of Oncology Kimberly Rios Ma lignant Neoplasm Of in Codorus, Alan, LENNOX C.N.P., Pancreas A denocarcinoma [facility] ([facility]) (Primary Dx) [address] [place] [phone] Social History Tobacco Use Types Packs/Day Years [...] or slept in a fpc (including now)? Sex Assigned at Date Recorded Female 07/03/2017 2:07 PM CDT documented as of this encounter Plan of Treatment Upcoming Encounters Date Type Specialty Care Team Description 11/19/2021 Clinical Communication Admitting/Central Scheduling 11/23/2021 Comprehensive Visit Neurology Kenji Zaldivar M.D. 200 [place] [address] Scheduled Orders Name Type Priority Associated Diagnoses Order S chedule ONC Pump Disconnect Procedures Routine Malignant Neoplasm Of Expected: Pancreas Adenocarcinoma 06/25 (HCC) (Approximate), Expires: 2023 documented as of this encounter Visit Diagnoses Diagnosis Malignant Neoplasm Of Pancreas Adenocarc inoma (HCC) - Primary documented in this encounter Administered Medications Inactive Administered Medications - up to 3 most recent administrations Medication Order MAR Action Action Date Dose Rate Site atropine injection 0.25 mg Given 07/07/2020 1:58 0.25 mg Left Upper A bdomen 0.25 mg, subcutaneous, PM CDT Once, On Mon07/07/20 at 1315, For 1 dose, Give prior to Irinotecan. Give subcutaneously if unable to give IV. Patient prefers SQ. dexamethasone in NaCl 0.9% IVPB 12 New Bag 07/07/2020 10:45 AM CDT 12 mg 200 mL/hr mg (DECADRON) 12 mg, intravenous, at 200 mL/hr, Administer over 15 Minutes, Once, On Mon07/07/20 at 1045, For 1 dose, Refrigerate fluorouraciL 3,500 mg in NaCl 0.9% 92 Given 07/07/2020 3:40 PM CDT 3,500 mg 2 mL/hr mL IVPB (ADRUCIL) 3,500 mg (rounded from 3,744 mg = 2,400 mg/m2 ? 1.56 m2 Order-specific BSA), intravenous, at 2 mL/hr, Administer over 46 Hours, over 46 hours, First dose on Mon07/07/20 at 1515, For 1 dose, Infuse at 2 mL/hr for 46 hours continuous infusion via CADD pump #[id number] fosaprepitant 150 mg in NaCl 0.9% New Bag 07/07/2020 11:23 AM CDT 150 mg 510 mL/hr IVPB (EMEND) 150 mg, intravenous, at 510 mL/hr, Administer over 30 Minutes, Once, On Mon07/07/20 at 1045, For 1 dose, Incompatible with solutions containing divalent cations (calcium, magnesium) including lactated Ringer's solution. irinotecan 220 mg in D5W 559 mL New Bag 07/07/2020 2:02 PM CDT 220 mg 373 mL/hr IVPB (CAMPTOSAR) 220 mg (rounded from 224.64 mg = 144 mg/m2 ? 1.56 m2 Order-specific BSA), intravenous, at 373 mL/hr, Administer over 90 Minutes, Once, On Mon07/07/20 at 1345, For 1 dose, May be given via y-site with leucovorin. Protect from light. leucovorin 600 mg in D5W 305 mL New Bag 07/07/2020 2:02 PM CDT 600 mg 203 mL/hr IVPB 600 mg (rounded from 624 mg = 400 mg/m2 ? 1.56 m2 Order-specific BSA), intravenous, at 203 mL/hr, Administer over 90 Minutes, Once, On Mon07/07/20 at 1345, For 1 dose, Can be given via y-site with irinotecan. NaCl 0.9 % bolus 1,000 mL New 07/07/2020 10:46 AM CDT 1,000 mL 1000 mL/hr 1,000 mL, intravenous, at 1,000 mL/hr, Administer over 1 Hours, Once, On Mon07/07/20 at 1045, For 1 dose ondansetron in NaCl 0.9% IVPB 16 mg New 07/07/2020 11:03 A M CDT 16 mg 232 mL/hr (ZOFRAN) 16 mg, intravenous, at 232 mL/hr, Administer over 15 Minutes, Once, On Mon07/07/20 at 1045, For 1 dose oxaliplatin 100 mg in D5W 295 mL New Bag 07/07/2020 11:58 AM C DT 100 mg 148 mL/hr IVPB (ELOXATIN) 100 mg (rounded from 106.08 mg = 68 mg/m2 ? 1.56 m2 Order-specific BSA), intravenous, at 148 mL/hr, Administer over 2 Hours, Once, On Mon07/07/20 at 1145, For 1 dose, Flush infusion line with dextrose 5 % in water prior to administration of any concomitant medication. documented in this encounter
--- OUTSIDE RECORDS SUMMARY | 2021-11-03 07:08 | XMS_ITS | Encounter Summary ---
:1940 Author Organization [facility] Address [address] [place] [address] Care Team Providers Name Role Phone Unavailable Primary Care Provider Unavailable Reason for Visit Reason Comments Outpatient Infusion DC pump Outpatient (Routine) - Closed Specialty Diagnoses / Procedures Referred By Contact Refer red To Contact Diagnoses Malignant Neoplasm Of Pancreas Adenocarcinoma (HCC) Nova Vivar M.B.B.S. [facility] Procedures ONC Pump Disconnect [address] [place] [address] Referral ID Status Reason Start Date Expiration Date Visits Requ ested Visits Authorized [id number] Closed 07/21/2020 07/21/2021 1 1 Encounter Details Date Type Department Care Team Description 07/23/2020 Infusion Department of Infusion Nova Vivar Malig nant Neoplasm Of Therapy in Sera DonaldsonB.S. Pancreas Adenocarcinoma [place] [address] [facility] (HCC) (Primary Dx) [address] [place] [address] [facility] [phone] Social History Tobacco Use Types Packs/Day [...] 06/19/2021 organizations such as christian groups, unions, fraAgrican or athletic groups, or school groups? How [...] Sign Reading Time Taken Comments Blood Pressure 138/61 07/23/2020 12:03 PM CDT Pulse 67 07/23/2020 12:03 PM CDT Temperature 36.6 ??C (97.9 ??F) 07/23/2020 12:03 PM CDT Respiratory Rate - - Oxygen Saturation - - Inhaled Oxygen Concentration - - Weight - - Height - - Body Mass Index - - documented in this encounter Plan of Treatment Upcoming Encounters Date Type Specialty Care Team Description 11/19/2021 Clinical Communication Admitting/Central Scheduling 11/23/2021 Comprehensive Visit Neurology Kenji Zaldivar M.D. 200 [place] [phone] documented as of this encounter Visit Diagnoses Diagnosis Malignant Neoplasm Of Pancreas Adenocarc inoma (HCC) - Primary documented in this encounter Administered Medications Inactive Administered Medications - up to 3 most recent administrations Medication Order MAR Action Action Date Dose Rate Site heparin flush 500 Units Given 07/23/2020 12:05 PM CDT 500 Units 500 Units, intra-catheter, As needed, line care, Starting on Laila 07/23/20 at 1205, When no infusion to maintain patency: For IVAD accessed, not in use, and/or prior to hospital discharge, flush every 7 days after 0.9% preservative-free NaCL flush. For IVAD NOT accessed or used, flush every 4 weeks after 0.9% preservative-free NaCL flush. sodium chloride 0.9 % injection 20 mL Given 07/23/2020 12:06 PM CDT 20 mL 20 mL, intra-catheter, As needed, line care, Starting on Laila 07/23/20 at 1205, When IVAD Accessed and in Use: Flush post blood transfusion or post blood sampling. documented in this encounter
--- OUTSIDE RECORDS SUMMARY | 2021-11-03 07:08 | XMS_ITS | Encounter Summary ---
:1940 Author Organization [facility] Address [address] [place] [address] Care Team Providers Name Role Phone Unavailable Primary Care Provider Unavailable Reason for Visit Episode Based Medications (Routine) - Authorized Specialty Diagnoses / Procedures Referred By Contact Refer red To Contact Diagnoses Malignant Neoplasm Of Pancreas Adenocarcinoma (HCC) Neutropenia Chemotherapy Induced (HCC) Kimberly Rios, Rsmarleen Onc Coy HIGH C.N.P., M.S. [address] [facility] [address] [place] [phone] Referral ID Status Reason Start Date Expiration Date Visits V isits Requested Authorized [id number] Authorized 06/03/2020 06/03/2021 99 99 Encounter Details Date Type Department Care Team Description 08/03/2020 Office Visit Department of Nova Vivar, Secondary Ramya gnant Neoplasm Lymph Node (HCC) (Primary Dx); Oncology in M.B.B.S. Malignant Neoplasm Of Pancreas Adenocarc inoma (HCC); [place], [place] [address] [facility] Steatorrhea (HCC) [address] [place] [phone] Social History Tobacco Use Types Packs/Day Years [...] Sign Reading Time Taken Comments Blood Pressure 151/82 08/03/2020 10:34 AM CDT Pulse 67 08/03/2020 10:34 AM CDT Temperature 36.5 ??C (97.7 ??F) 08/03/2020 10:34 AM CDT Respiratory Rate - - Oxygen Saturation 97% 08/03/2020 10:34 AM CDT Inhaled Oxygen Concentration - - Weight 52.6 kg (115 lb 15.4 oz) 08/03/2020 10:34 AM CDT Height 177.7 cm (5' 9.96) 08/03/2020 10:34 AM CDT Body Mass Index 16.66 08/03/2020 10:34 AM CDT documented in this encounter Progress Notes Nova Vivar M.B.BChicoS. - 08/03/2020 11:00 AM CDT CHIEF COMPLAINT/PURPOSE OF VISIT: Metastatic pancreas cancer with lymphadenopathy. CURRENT TREATMENT/MANAGEMENT PLAN FOLFIRINOX PRIMARY CARE PHYSICIAN No primary care provider on file. REQUESTING PROVIDER Kimberly Rios APRN, C.N.P., M.S. [address] [place] [phone] LOCAL ONCOLOGIST No care clinical team lead to display PRIMARY [place] ONCOLOGIST Nova Vivar M.B.B.S. Kimberly Rios APRN, [...] periaortic, and mesenteric lymph nodes was reported ([facility] review). 3.) 05/25/2020 CA [id number] [id number] [...] INTERVAL HISTORY: Ms. العراقي returns today for toxicity check and restaging. She reports slight we improving energy level and feeling more refreshed after sleeping. She still requires napping during the day. She is ADL independent and ECOG performance status of 1. She noted that she has explosive diarrhea with floating stool for which she is taking Imodium. Unfortunately, she then developed constipation for 3 days and her bowel movement has been alternating between constipation and explosive diarrhea. ROS: Pertinent items are noted in HPI; all other review of systems were negative. Rate your distress: 5 VITAL SIGNS: Vitals: 08/03/20 1034 BP: 151/82 BP Location: Left arm Patient Position: Sitting Cuff Size: Regular Pulse: 67 Temp: 36.5 ??C TempSrc: Tympanic SpO2: 97% Weight: 52.6 kg Height: 177.7 cm PHYSICAL EXAM Vitals reviewed. Constitutional General: She is not in acute distress. Appearance: She is not toxic-appearing. Eyes General: No scleral icterus. Conjunctiva/sclera: Conjunctivae normal. Cardiovascular Rate and Rhythm: Normal rate and regular rhythm. Heart sounds: Normal heart sounds. Pulmonary Effort: Pulmonary effort is normal. No respiratory distress. Musculoskeletal Cervical back: Neck supple. Right ankle: No swelling. Left ankle: No [...] cancer with extensive abdominal lymphadenopathy currently on FOLFIRINOX, with dose reduction. She returns today with restaging CT scan. I was able to review the results of her CT the patient and her , which indicate mild improvement in the pancreas mass and decrease in size of the abdominal lymph nodes. Symptomatically, patient also reported improvement in her energy level which suggests that her fatigue may be secondary to the underlying malignancy. Patient is agreeable to continue with the current dosage. Also reviewed the results of her blood tests which did not show significant cytopenia and are within treatment range. Patient will pr oceed with chemotherapy as planned. We will see her back in 2 weeks for toxicity check. We also discussed about her explosive diarrhea with symptoms suggestive of steatorrhea. I discussed about the use of pancreas supplements such as Creon which she can take 2 tablets about 10-15 minutes before each meal, and can be titrated according to the diarrhea. We discussed about the palliative intent of the systemic chemotherapy, and admission is to continue with the treatment as long as she is benefiting from the treatment. We will continue to work with herin adjusting her chemo dose and use of supportive medication including Creon. We also discussed about taking plan breaks especially with their planned vacation in December. Patient also had plan previously for cataract surgery. For the surgery, we can certainly plan for the as long as patient is obtaining benefit and control of her cancer, and we can schedule chemo breaks so that she can proceed with cataract surgery. Patient and her were given opportunity to ask questions, and expressed understanding of the plan outlined above. PATIENT EDUCATION Ready to learn, no apparent learning barriers were identified; learning preferences include listening. Explained diagnosis and treatment plan; patient expressed understanding of the content. ADMINISTRATIVE BILLING I personally spent a total 25 minutes on the evaluation, development of the management plan, reviewing and setting of the chemotherapy plan, discussion/education and coordination of care as described above. This include meml-da-ssem and non skil-wc-leiw time. documented in this encounter Plan of Treatment Upcoming Encounters Date Type Specialty Care Team Description 11/19/2021 Clinical Communication Admitting/Central Scheduling 11/23/2021 Comprehensive Visit Neurology Kenji Zaldivar M.D. 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
--- OUTSIDE RECORDS SUMMARY | 2021-11-03 07:08 | XMS_ITS | Encounter Summary ---
:1940 Author Organization [facility] Address [address] [place] [id number] Care Team Providers Name Role Phone Unavailable Primary Care Provider Unavailable Reason for Visit Reason Comments Intake Assessment Encounter Details Date Type Department Care Team Description 07/30/2020 Clinical Communication Department of [facility] Assessment Oncology in [facility] [place], [place] [address] [facility] [address] [place] [phone] Social History Tobacco Use Types Packs/Day Years [...] Notes Telephone Encounter - Deb Pinto - 07/30/2020 1:48 PM CDT Intake screening completed. documented in this encounter Plan of Treatment Upcoming Encounters Date Type Specialty Care Team Description 11/19/2021 Clinical Communication Admitting/Central Scheduling 11/23/2021 Comprehensive Visit Neurology Kenji Zaldivar M.D. [address] [place] [address] documented as of this encounter Visit Diagnoses Not on filedocumented in this encounter
--- OUTSIDE RECORDS SUMMARY | 2021-11-03 07:08 | XMS_ITS | Encounter Summary ---
:1940 Author Organization [facility] Address [address] [place] [id number] Care Team Providers Name Role Phone Unavailable Primary Care Provider Unavailable Reason for Referral Outpatient (Routine) - Closed Specialty Diagnoses / Procedures Referred By Contact Refer red To Contact Diagnoses Malignant Neoplasm Of Pancreas Adenocarcinoma (HCC) Hypocalcemia Hypoparathyroidism (HCC) [facility] Procedures BMD Bone Density Spine Hips C.N.P., M.S. [address] [place] [phone] Referral ID Status Reason Start Date Expiration Date Visits Requ ested Visits Authorized [id number] Closed 07/07/2020 07/07/2021 1 1 utpatient (Routine) - Closed Specialty Diagnoses / Procedures Referred By Contact Refer red To Contact Endocrinology Diagnoses Malignant Neoplasm Of Pancreas Adenocarcinoma (HCC) Hypocalcemia Hypoparathyroidism (HCC) Kimberly Rios [facility] Harleen HIGH.N.P., M.S. 200 [place] [address] Referral ID Status Reason Start Date Expiration Date Visits Requ ested Visits Authorized [id number] Closed 07/07/2020 07/07/2021 1 1 Reason for Visit Episode Based Medications (Routine) - Authorized Specialty Diagnoses / Procedures Referred By Contact Refer red To Contact Diagnoses Malignant Neoplasm Of Pancreas Adenocarcinoma (HCC) Neutropenia Chemotherapy Induced (HCC) Kimberly Rios Rst Onc [facility] HIGH C.N.P., M.S. [address] [place] [address] [place] [phone] Referral ID Status Reason Start Date Expiration Date Visits V isits Requested Authorized [id number] Authorized 06/03/2020 06/03/2021 99 99 Encounter Details Date Type Department Care Team Description 07/07/2020 Nurse Only Department of Oncology in [facility] Kimberly luo APRN, C.N.P., M.S. [address] [place] [phone] [place], [place] Keshawn Morales, R.N. [address] [place] [phone] [place] [phone] Social History Tobacco Use Types Packs/Day [...] More than 4 times per year 06/19/2021 scientologist services? Do you belong to any clubs [...] Sign Reading Time Taken Comments Blood Pressure 170/93 07/07/2020 9:03 AM CDT Pulse 80 07/07/2020 9:03 AM CDT Temperature 36.6 ??C (97.9 ??F) 07/07/2020 9:03 AM CDT Respiratory Rate 16 07/07/2020 9:03 AM CDT Oxygen Saturation 100% 07/07/2020 9:03 AM CDT Inhaled Oxygen Concentration - - Weight 50.9 kg (112 lb 3.4 oz) 07/07/2020 9:03 AM CDT Height 166.1 cm (5' 5.39) 07/07/2020 9:03 AM CDT Body Mass Index 18.45 07/07/2020 9:03 AM CDT documented in this encounter Progress Notes Keshawn Morales, R.N. - 07/07/2020 9:15 AM CDT Nurse Only Toxicity Check Visit Collaborating Provider Kimberly Rios NP Reason for Visit Pre-Chemotherapy Visit Ms. العراقي is here in preparation for day 1 cycle 3 of FOLFIRINOX therapy Oncology History Malignant Neoplasm [...] periaortic, and mesenteric lymph nodes was reported ([facility] review). 3.) 05/25/2020 CA 19-9 178 05/28/2020 Biopsy/Pathology EUS findings-Retroperitoneally growing mass extending from the pancreas with infiltration of almostall abutting major arteries and veins. Multiple malignant appearing nodes, ascites, likely omental deposits. No solid hepatic masses seen. Pancreas, Neck, EUS/FNA: Adenocarcinoma Lymph Node, Celiac, EUS/FNA: Metastatic Adenocarcinoma 06/04/2020 Genetic Testing and Tumor Genotyping Attempted Tempus testing: Not enough tissue. Exam canceled. pMMR 06/08/2020 - Chemotherapy FOLFIRINOX ( Fluorouracil / Leucovorin / Irinotecan / Oxaliplatin ) Start Date: 06/08/2020 Interval History by RN I met with Mrs. العراقي and her , Will, in evaluation prior to cycle 3 FOLFIRINOX. After dose adjustments with cycle 2, she notes to feeling much improved. She felt great from days 1-5. After that time she did notice mild mouth sores and diarrhea. Fortunately, her mouth sores do not interfere with e ating or drinking, and cleared with use of Biotene. Her diarrhea is well controlled with two Imodium. She will then go three days without a bowel movement, but no symptoms of distension or cramping. She will then have one day with one normal stool, followed by the next day with one episode of diarrhea. She states this is cyclic. She is comfortable with this. She denies blood in stool. She does have anew hemorrhoid, one large, and a few small. It is painful with wiping, but no blood noted. She is utilizing a hemorrhoidal cream 4 times a day. She is fatigued most of the time. She finds that she is sleeping 12-14 hours a day. She does not sleep well at nighttime, and finds that she is napping frequently through out the day. She finds activity does not cause her to feel more fatigued, rather she would rather be resting. Denies chest pains or shortness of breath with exertion. She is not eating welldue to poor appetite and nausea. She has lost approximately 1.5 kg in two weeks time. She is taking C ompazine sometimes 1-3 times a day. She does find this helps with retching. She did have one emesis last night after eating pancakes, a tangerine, and milk. She had no nausea prior to emesis. She is drinking about 32-40 oz of fluids per day. She does have cold sensitivity for about the first week. Shedoes experience intermittent neuropathy, but relates this to when she is having low calcium. Of note, her calcium is up to 11.4. Her calcium is being monitored by her local [employer], who had increased her dosing due to low calcium of 5.0. She notes that her calcium typically drops after chemotherapy. She will reach out to [employer] regarding new values, and recommendations. She would like to see an Hop Farmer here at [facility], as recommended by [employer]. Blood pressure this morning is 164/87, pulse 77. 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 We discussed adhering to small, frequent meals, high in calorie and protein. We discussed this could help with nausea as well. We discussed use of Compazine immediately in the morning, and as needed before meals. She will eat when having relief from her nausea. She will start taking lorazepam0.5 before going to bed, to help with nausea and sleep. Hopefully, she will start sleeping better atnighttime, and awake more during the day time. Encouraged increasing activity to combat the fatigue.Recommended starting out with 10 minutes of activity at a time, and increasing, as able. If becoming symptomatic, she will stop. She will increase her fluid intake as well. She will start swishing withBiotene prophylactically to avoid mouth sores. For her hemorrhoids, will continue with cream four times a day. She will utilize wet wipes instead of toilet paper with cleaning. Recommended trying sitz bathes. She will let us know if her symptoms worsen or notices any bleeding. For her blood pressure, she will start monitoring once daily at the same time a day. Should her blood pressure remain elevated over the next few days, she will call and let us know. She will continue with FOLFIRINOX treatment as planned. The following recommendations were discussed with the patient: Encouraged use of previously discussed anti-emetics as prescribed, Compazine as needed, lorazepam before bed., Encouraged caloric intake., Encouraged hydration with caffeine-free clear liquids. and Encouraged activity as tolerated and rest when needed. She was encouraged to contact our team at any time with questions or concerns. Ms. العراقي expressed understanding and agrees with the plan. They have no further questions or concerns at this time. documented in this encounter Miscellaneous Notes Addendum Note - Keshawn Morales R.N. - 07/07/2020 9:15 AM CDT Addended by: KESHAWN MORALES on: 07/07/2020 04:05 PM Modules accepted: Orders documented in this encounter Plan of Treatment Upcoming Encounters Date Type Specialty Care Team Description 11/19/2021 Clinical Communication Admitting/Central Scheduling 11/23/2021 Comprehensive Visit Neurology Kenji Zaldivar M.D. [address] [place] [phone] Scheduled Referrals Name Type Priority Associated Diagnoses Order S chedule Endocrinology - Outpatient Routine Malignant Neoplasm Of Exp ected: Parathyroid / calcium Referral Pancreas 2020 / vitamin D disorders Adenocarci noma (HCC) (Approximate), consult (clinic) Hypocalcemia Expires: Hypoparathyroidism 4 ([facility] documented as of this encounter Results BMD Bone Density Spine [...] including images and graphs, is available in EADS. ?In the absence of other causes of [...] Rios APRN C.N.P., M.S. IMG DXA PROCEDURES (ABNORMAL) Creatinine with Estimated GFR (07/24/2020 8:13 AM CDT) athologist Signature Creatinine, S 1.02 0.59 - 07/24/2020 DTL 1.04 mg/dL 9:03 AM CDT eGFR-Non 53 (L) >=60 07/24/2020 DTL Black/ mL/min/BSA 9:03 AM CDT [place] Citizen Comment: ----ADDITIONAL INFORMATION---- Estimated GFR calculated using the 2009 CKD_EPI creatinine equation. eGFR-Black/ 61 >=60 mL/min/BSA 2020 9:03 AM CDT DTL Comment: ----ADDITIONAL INFORMATION---- Estimated GFR calculated using the 2009 CKD_EPI creatinine equation. Specimen Anatomical Collection Method Collection Time Receive d Time (Source) Location / / Volume Laterality Blood (Blood, 07/24/2020 8:13 AM 07/25/19 8:21 Venous) CDT AM CDT Kimberly Rios APRN, C.N.P., M.S. LAB BLOOD ADD-ON Performing Organization Address City/[facility] Phon e Number [facility] - [address] [place] [address] Phosphorus Inorganic (07/24/2020 8:13 AM CDT) athologist Signature Phosphorus 3.3 2.5 - 4.5 07/24/2020 DTL (Inorganic), S mg/dL 9:03 AM CDT Specimen Anatomical Collection Method Collection Time Receive d Time (Source) Location / / Volume Laterality Blood (Blood, 07/24/2020 8:13 AM 07/25/19 8:21 Venous) CDT AM CDT Trace Rudolph APRNN.P., M.S. LAB BLOOD ADD-ON Performing Organization Address City/State/[facility] Phon e Number [facility] - [address] [place], [place] [address] [place] [address] [facility] (ABNORMAL) Calcium, Total (07/24/2020 8:13 AM CDT) athologist Signature Calcium, 7.7 (L) 8.8 - 10.2 07/24/2020 DTL Total, S mg/dL 9:03 AM CDT Specimen Anatomical Collection Method Collection Time Receive d Time (Source) Location / / Volume Laterality Blood (Blood, 07/24/2020 8:13 AM 07/25/19 21 8:21 Venous) CDT AM CDT Kimberly Rios APRN, C.N.P., M.S. LAB BLOOD ADD-ON Performing Organization Address City/State/[facility] Phon e Number [facility] - [address] [place], [place] [address] [place] [address] [facility] [address] Parathyroid Hormone (PTH) (07/24/2020 8:13 AM CDT) athologist Signature Parathyroid 33 15 - 65 07/24/2020 DTL Hormone (PTH), S pg/mL 9:03 AM CDT Specimen Anatomical Collection Method Collection Time Receive d Time (Source) Location / / Volume Laterality Blood (Blood, 07/24/2020 8:13 AM 07/25/19 21 8:21 Venous) CDT AM CDT Kimberly Rios APRN, C.N.P., M.S. LAB BLOOD ADD-ON Performing Organization Address City/State/[facility] Code Phon e Number [facility] - [address] [place], [place] [address] [place] [address] [facility] [address] documented in this encounter Visit Diagnoses Diagnosis Hypocalcemia - Primary Malignant Neoplasm Of Pancreas Adenocarc inoma (HCC) Hypoparathyroidism (HCC) Malignant Neoplasm Of Pancreas Adenocarc inoma (HCC) Hypocalcemia Hypoparathyroidism (HCC) documented in this encounter
--- OUTSIDE RECORDS SUMMARY | 2021-11-03 07:08 | XMS_ITS | Encounter Summary ---
:1940 Author Organization [facility] Address [address] [place] [address] Care Team Providers Name Role Phone Unavailable Primary Care Provider Unavailable Reason for Referral MRI/CAT/PET Scan (Routine) - Closed Specialty Diagnoses / Procedures Referred By Contact Refer red To Contact Radiology Diagnoses Malignant Neoplasm Of Pancreas Adenocarcinoma (HCC) Nova Vivar M.B.B.S. [facility] Procedures CT Abdomen Pelvis with IV Contrast [address] [place] [address] Referral ID Status Reason Start Date Expiration Date Visits Requ ested Visits Authorized [id number] Closed 07/20/2020 07/20/2021 1 1 MRI/CAT/PET Scan (Routine) - Closed Specialty Diagnoses / Procedures Referred By Contact Refer red To Contact Radiology Diagnoses Malignant Neoplasm Of Pancreas Adenocarcinoma (HCC) Nova Vivar M.B.B.S. [facility] Procedures CT Chest with IV Contrast [address] [place], [place] [phone] Referral ID Status Reason Start Date Expiration Date Visits Requ ested Visits Authorized [id number] Closed 07/20/2020 07/20/2021 1 1 Reason for Visit Episode Based Medications (Routine) - Authorized Specialty Diagnoses / Procedures Referred By Contact Refer red To Contact Diagnoses Malignant Neoplasm Of Pancreas Adenocarcinoma (HCC) Neutropenia Chemotherapy Induced (HCC) Kimberly Rios, Rst Onc Rogo AS400 OPERATOR, C.N.P., M.S. [address] [facility] [address] [place] [phone] Referral ID Status Reason Start Date Expiration Date Visits V isits Requested Authorized [id number] Authorized 06/03/2020 06/03/2021 99 99 Encounter Details Date Type Department Care Team Description 07/20/2020 Office Visit Department of Ma, Nova Lauren, Malignant Neop lasm Of Pancreas Adenocarcinoma (HCC) (Primary Dx); Oncology in M.B.B.S. Secondary Malignant Neoplasm Lymph Node (HCC) [place], [place] [address] [facility] [address] [place] [phone] Social History Tobacco Use Types Packs/Day Years [...] More than 4 times per year 06/19/2021 restorationism services? Do you belong to any clubs [...] Sign Reading Time Taken Comments Blood Pressure 172/82 07/20/2020 1:46 PM CDT Pulse 82 07/20/2020 1:46 PM CDT Temperature 36 ??C (96.8 ??F) 07/20/2020 1:46 PM CDT Respiratory Rate 14 07/20/2020 1:46 PM CDT Oxygen Saturation 94% 07/20/2020 1:46 PM CDT Inhaled Oxygen Concentration - - Weight 52 kg (114 lb 10.2 oz) 07/20/2020 1:46 PM CDT Height 165.5 cm (5' 5.16) 07/20/2020 1:46 PM CDT Body Mass Index 18.99 07/20/2020 1:46 PM CDT documented in this encounter Progress Notes Nova Vivar M.B.B.S. - 07/20/2020 2:00 PM CDT CHIEF COMPLAINT/PURPOSE OF VISIT: Metastatic pancreas cancer with lymphadenopathy. CURRENT TREATMENT/MANAGEMENT PLAN FOLFIRINOX PRIMARY CARE PHYSICIAN No primary care provider on file. REQUESTING PROVIDER Kimberly Rios APRN, C.N.P., M.S. [address] [place] [phone] LOCAL ONCOLOGIST No care pilot steam yacht to display PRIMARY GALES FERRY ONCOLOGIST Nova Vivar M.B.B.S. Kimberly Rios APRN, C.NAbdirashid., M.S. HISTORY OF PRESENT ILLNESS: Ms. العراقي [...] periaortic, and mesenteric lymph nodes was reported ([facility] review). 3.) 05/25/2020 CA 19-9 178 [...] Ms. العراقي returns today for evaluation. She reports fatigue that lasts into the 2nd week. With that, she is ADL independent. She did gain almost 2 kg since last visit with small frequent meals. She denies significant watery diarrhea, and had been taking anti diarrhea medication. She is taking Compazinetwice a day which help with her nausea. She denies any significant neuropathy. Her ECOG performance status is 1. ROS: Pertinent items are noted in HPI; all other review of systems were negative. No data recorded VITAL SIGNS: Vitals: 07/20/20 1346 BP: (!) 172/82 BP Location: Right arm Patient Position: Sitting Cuff Size: Small Pulse: 82 Resp: 14 Temp: 36 ??C TempSrc: Tympanic SpO2: 94% Weight: 52 kg Height: 165.5 cm PHYSICAL EXAM Vitals reviewed. Constitutional General: She is not in acute distress. Appearance: She is not toxic-appearing. Eyes General: No scleral icterus. Conjunctiva/sclera: Conjunctivae normal. Cardiovascular Rate and Rhythm: Normal rate and regular rhythm. Heart sounds: Normal heart sounds. Pulmonary Effort: Pulmonary effort is normal. No respiratory distress. Abdominal Palpations: Abdomen is soft. Musculoskeletal Cervical back: Neck supple. Right ankle: No swelling. Left ankle: No swelling. Skin Coloration: Skin is not jaundiced. Neurological Mental Status: She is alert and oriented to person, place, and time. DIAGNOSTICS: I reviewed the imaging studies and agree with the interpretation as recorded. I reviewed the pertinent laboratory and diagnostic data. ASSESSMENT/PLAN: #1 Malignant Neoplasm Of Pancreas Adenocarcinoma (HCC) Ms. العراقي is a 80 y.o. female with metastatic pancreas cancer with extensive abdominal lymphadenopathy who is currently receiving FOLFIRINOX. I did review the results of her blood tests which did not show significant cytopenia. Her comprehensive metabolic panel is within treatment range as well. She is tolerating treatment relatively well and had gained about 2 kg. However, she reported needing to rest during the daytime including during the 2nd week of the treatment. She will return for toxicity check prior to cycle 5 in 2 weeks, and we will order a restaging CT scan. We can consider dose reducing FOLFIRINOX pending CT scan finding. Patient also has an appointment to see endocrinology for her hypoparathyroidism and has a bone scan planned for next week. Her total calcium is 11.3 today which is stable from 2 weeks ago. 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 However there is insufficient tissue for NGS testing. I did discuss about genetic counseling referral which patient deferred for now. I also discussed about blood test for germline testing for BRCA 1/2 mutation, which if positive, olaparib can be an option. Patient would also like to defer that for now. She and her were given opportunity to ask questions, and expressed understanding of the planoutlined above. PATIENT EDUCATION Ready to learn, no apparent learning barriers were identified; learning preferences include listening. Explained diagnosis and treatment plan; patient expressed understanding of the content. ADMINISTRATIVE BILLING I personally spent a total 25 minutes on the evaluation, development of the management plan, reviewing and setting of the chemotherapy plan, discussion/education and coordination of care as described above. This include [id number]-[id number] and non ttrc-fz-hjhq time. documented in this encounter Miscellaneous Notes Addendum Note - Keshawn Morales R.N. - 07/20/2020 2:00 PM CDT Addended by: KESHAWN MORALES on: 07/21/2020 11:13 AM Modules accepted: Orders documented in this encounter Plan of Treatment Upcoming Encounters Date Type Specialty Care Team Description 11/19/2021 Clinical Communication Admitting/Central Scheduling 11/23/2021 Comprehensive Visit Neurology Kenji Zaldivar M.D. [address] [place] [address] documented as of this encounter Results Magnesium (08/17/2020 8:41 AM CDT) P athologist Signature Magnesium, S 2.3 1.7 - 2.3 08/17/2020 DTL mg/dL 9:32 AM CDT Specimen Anatomical Collection Method Collection Time Receive d Time (Source) Location / / Volume Laterality Blood (Blood, 08/17/2020 8:41 AM 08/18/19 8:53 Venous) CDT AM CDT Nova ZamoraBChicoS. LAB BLOOD ADD-ON Performing Organization Address City/State/ZIP Code Phon e Number [facility] - [address] [place] [phone] [facility] [place] [address] Laboratories-[facility] 200 [facility] (ABNORMAL) Carbohydrate Antigen 19-9 (CA 19-9) (08/03/2020 9:39 AM CDT) Analysis Performed At Patho logist Time Signature Carbohydrate Ag 98 (H) <35 U/mL 08/03/2020 SDSC 19-9, S 3:04 PM CDT Comment: ----ADDITIONAL INFORMATION---- The testing method is an immunoenzymatic assay manufactured by [employer] and performed on the [employer] DxI 800. ? Values obtained with different [...] ZamoraB.S. LAB BLOOD ADD-ON Performing Organization Address City/[facility] Code Phon e Number [facility] [address] [place], [place] [address] [facility] Critical [place] [address] Laboratory Medicine and Pathology [address] [place] Magnesium (08/03/2020 9:39 AM CDT) P athologist Signature Magnesium, S 2.0 1.7 - 2.3 08/03/2020 DTL mg/dL 10:43 AM CDT Specimen Anatomical Collection Method Collection Time Receive d Time (Source) Location / / Volume Laterality Blood (Blood, 08/03/2020 9:39 AM 08/04/19 9:53 Venous) CDT AM CDT Nova ZamoraB.S. LAB BLOOD ADD-ON Performing Organization Address [facility] Phon e Number [facility] - [address] [place] [phone] [facility] [place] [address] Laboratories[facility] [address] [facility] [address] Abdomen Pelvis with IV Contrast (07/31/2020 12:23 PM CDT) Anatomical Region Laterality Modality Abdomen, Pelvis, Abdominal RST LOS, N/A Comp uted Tomography, Computed Abdominal ARZ LOS, Abdominal FLA LOS Dustin ography Specimen (Source) Anatomical Collection Method Collection Time Re ceived Time Location / / Volume Laterality 07/31/2020 12:52 PM CDT Impressions 07/31/2020 1:16 PM CDT 1. Mild improvement since 05/20/2020 with slightly decreased size of the primary pancreatic head cystic/necrotic mass wit h some sharlene metastases that have decreased in size. Otherwise no apprecia ble change of the extensive infiltrative retroperitoneal malignancy with vascular involvement, as described. 2. Unchanged small hepatic hypodensity, likely a cyst. No convincing findings of hepatic metastatic disease. Narrative 07/31/2020 1:16 PM CDT EXAM: ??CT ABDOMEN PELVIS WITH IV CONTRAST COMPARISON: ??Outside CT abdomen and pel vis 05/20/2020. FINDINGS: ?? Decreased size of the presumed primary e xophytic pancreatic head mass measuring 1.5 x 0.9 cm (4/167) compared to 1.9 x 1 .2 cm. There is decreased associated internal soft tissue enhancement. Soft t issue extending from this mass leftward of the pancreas and inferiorly within th e mesentery is not appreciably changed. This results in severe narrowing of the proximal superior mesenteric vein with resultant collaterals. Aortocaval lymph nodes have decreased in size, for example measuring 4 mm (4/146) compared to 8 mm previously. Nec rotic peripancreatic and proximal mesenteric subcentimeter lymph nodes are stable to slightly decreased in size. For example, a mesenteric node measuring 6 mm (4/193) previously measured 7 mm. Extensive retroperitoneal infiltrative t umor with vascular involvement. Hazy soft tissue about the celiac artery, pro ximal hepatic and splenic arteries, proximal superior mesenteric artery, and left renal vein in the midline. The solid soft tissue abuts the anterior aor ta and surrounds much of the infrahepatic IVC. Both adrenals may be i nvolved by tumor. Stable 3 mm hypodensity in hepatic segme nt VIII (/20), favored to represent a cyst. The common bile duct measures 1 cm at th e hilum, similar to prior, with the common duct narrowed as it enters the pa ncreatic head. Mild intrahepatic ductal dilatation is unchanged. Small cyst with in the pancreatic tail measuring 8 mm. The main pancreatic duct is mildly promi nent and narrows within the pancreatic head. Splenic cyst. Renal cysts. Trace free fluid in the pel vis. Uterine fibroid. Fat-containing left Bochdalek hernia. Sacral Tarlov cys ts. Degenerative changes in spine. This examination was performed in conjun ction with a CT of the chest, which will be reported separately. Procedure Note Yung Rodarte M.D. - 07/31/2020Formatt ing of this note might be different from the original. EXAM: CT ABDOMEN PELVIS WITH IV CONTRAST COMPARISON: Outside CT abdomen and pelvi s 05/20/2020. FINDINGS: Decreased size of the presumed primary e xophytic pancreatic head mass measuring 1.5 x 0.9 cm (4/167) compared to 1.9 x 1 .2 cm. There is decreased associated internal soft tissue enhancement. Soft t issue extending from this mass leftward of the pancreas and inferiorly within th e mesentery is not appreciably changed. This results in severe narrowing of the proximal superior mesenteric vein with resultant collaterals. Aortocaval lymph nodes have decreased in size, for example measuring 4 mm (4/146) compared to 8 mm previously. Nec rotic peripancreatic and proximal mesenteric subcentimeter lymph nodes are stable to slightly decreased in size. For example, a mesenteric node measuring 6 mm (4/193) previously measured 7 mm. Extensive retroperitoneal infiltrative t umor with vascular involvement. Hazy soft tissue about the celiac artery, pro ximal hepatic and splenic arteries, proximal superior mesenteric artery, and left renal vein in the midline. The solid soft tissue abuts the anterior aor ta and surrounds much of the infrahepatic IVC. Both adrenals may be i nvolved by tumor. Stable 3 mm hypodensity in hepatic segme nt VIII (/20), favored to represent a cyst. The common bile duct measures 1 cm at th e hilum, similar to prior, with the common duct narrowed as it enters the pa ncreatic head. Mild intrahepatic ductal dilatation is unchanged. Small cyst with in the pancreatic tail measuring 8 mm. The main pancreatic duct is mildly promi nent and narrows within the pancreatic head. Splenic cyst. Renal cysts. Trace free fluid in the pel vis. Uterine fibroid. Fat-containing left Bochdalek hernia. Sacral Tarlov cys ts. Degenerative changes in spine. This examination was performed in conjun ction with a CT of the chest, which will be reported separately. IMPRESSION: 1. Mild improvement since 05/20/2020 wit h slightly decreased size of the primary pancreatic head cystic/necrotic mass wit h some sharlene metastases that have decreased in size. Otherwise no apprecia ble change of the extensive infiltrative retroperitoneal malignancy with vascular involvement, as described. 2. Unchanged small hepatic hypodensity, likely a cyst. No convincing findings of hepatic metastatic disease. Nova ZamoraB.S. IMG CT PROCEDURES CT Chest with IV Contrast (07/31/2020 12:23 PM CDT) Anatomical Region Laterality Modality Chest, Thoracic RST LOS, Thoracic ARZ N/A Co mputed Tomography, Computed LOS, Thoracic ARZ LOS, Thoracic FLA Ag graphy LOS Specimen (Source) Anatomical Collection Method Collection Time Re ceived Time Location / / Volume Laterality 07/31/2020 12:59 PM CDT Impressions 07/31/2020 1:08 PM CDT Indeterminate pulmonary nodules measuring up to 5 mm for which this can serve as a baseline for follow-up imaging. Narrative 07/31/2020 1:08 PM CDT EXAM: CT CHEST WITH IV CONTRAST COMPARISON: None FINDINGS: This examination was performed in conjun ction with a CT of the abdomen, which will be reported separately. Right anterior chest wall port with cath eter terminating in superior cavoatrial junction. No bulky thoracic lymphadenopa thy. No suspicious osseous lesion. Minimal aortic leaflet calcification. Mo derate coronary calcification. Scattered peripheral mucous plugs. No pl eural effusion. A 5 mm left lower lobe pulmonary nodule is difficult compare to prior lower resolution imaging but may have slightly increased (3/464). A <3 mm right lower lobe pulmonary nodule is also difficult compare prior imaging (3/ 415). Some other nodules measuring up to 3-4 mm were above the [id number]-[id number] on p rior imaging, for example in the right middle lobe (3/327) and right upper lobe (3/139). Procedure Note Maurizio Laguerre M.D. - 07/31/2020For matting of this note might be different from the original. EXAM: CT CHEST WITH IV CONTRAST COMPARISON: None FINDINGS: This examination was performed in conjun ction with a CT of the abdomen, which will be reported separately. Right anterior chest wall port with cath eter terminating in superior cavoatrial junction. No bulky thoracic lymphadenopa thy. No suspicious osseous lesion. Minimal aortic leaflet calcification. Mo derate coronary calcification. Scattered peripheral mucous plugs. No pl eural effusion. A 5 mm left lower lobe pulmonary nodule is difficult compare to prior lower resolution imaging but may have slightly increased (3/464). A <3 mm right lower lobe pulmonary nodule is also difficult compare prior imaging (3/ 415). Some other nodules measuring up to 3-4 mm were above the znufq-th-lixw on p rior imaging, for example in the right middle lobe (3/327) and right upper lobe (3/139). IMPRESSION: Indeterminate pulmonary nodules measurin g up to 5 mm for which this can serve as a baseline for follow-up imaging. Nova ZamoraB.S. IMG CT PROCEDURES Magnesium (07/20/2020 1:21 PM CDT) P athologist Signature Magnesium, S 2.2 1.7 - 2.3 07/21/2020 DTL mg/dL 11:33 AM CDT Specimen Anatomical Collection Method Collection Time Receive d Time (Source) Location / / Volume Laterality Blood (Blood, 07/20/2020 1:21 PM 07/22/19 Venous) CDT 11:03 AM CDT Nova ZamoraB.S. LAB BLOOD ADD-ON Performing Organization Address City/State/ZIP Code Phon e Number [facility] - [address] [place], [place] [address] [facility] [place] [address] Laboratories-[facility] [address] documented in this encounter Visit Diagnoses Diagnosis Malignant Neoplasm Of Pancreas Adenocarc inoma (HCC) - Primary Secondary Malignant Neoplasm Lymph Node (HCC) Malignant Neoplasm Of Pancreas Adenocarc inoma (HCC) documented in this encounter
--- OUTSIDE RECORDS SUMMARY | 2021-11-03 07:08 | XMS_ITS | Encounter Summary ---
:1940 Author Organization [facility] Address [address] [place] [address] Care Team Providers Name Role Phone Unavailable Primary Care Provider Unavailable Encounter Details Date Type Department Care Team Description 07/24/2020 Lab Department of Infusion Kimberly Rios Ma lignant Neoplasm Of Pancreas Adenocarcinoma (HCC) (Primary Dx); Therapy in [facility], HEAT ENGINEERING TEACHER, C.N.P., Hy pocalcemia; [facility]. Hypoparathyroidism (HCC) [address] [facility] [address] [place] [phone] [phone] Social History Tobacco Use Types Packs/Day Years [...] Visit Neurology Kenji Zaldivar M.D. [address] [place] [address] documented as of this encounter Procedures Procedure Name Priority Date/Time Associated Diagnosis Comme nts PHOSPHORUS Routine 07/24/2020 8:13 Malignant Neoplasm Of Res ults for this (INORGANIC), S AM CDT Pancreas procedure are in Adenocarcinoma ( HCC) the results Hypocalcemia section. Hypoparathyroidism (HCC) PARATHYROID HORMONE Routine 07/24/2020 8:13 Malignant Neoplasm Of Results for this (PTH), S AM CDT Pancreas procedure are i n Adenocarcinoma ( HCC) the results Hypocalcemia section. Hypoparathyroidism (HCC) MAGNESIUM, S Routine 07/24/2020 8:13 Malignant Neoplasm Of Res ults for this AM CDT Pancreas procedure are i n Adenocarcinoma (HCC) the res ults section. CREATININE WITH Routine 07/24/2020 8:13 Malignant Neoplasm Of Results for this EGFR, S/P AM CDT Pancreas procedure are i n Adenocarcinoma ( HCC) the results Hypocalcemia section. Hypoparathyroidism (HCC) CALCIUM, TOT, S/P Routine 07/24/2020 8:13 Malignant Neoplasm O f Results for this AM CDT Pancreas procedure are i n Adenocarcinoma ( HCC) the results Hypocalcemia section. Hypoparathyroidism (HCC) documented in this encounter Results Magnesium (07/24/2020 8:13 AM CDT) P athologist Signature Magnesium, S 1.9 1.7 - 2.3 07/24/2020 DTL mg/dL 9:03 AM CDT Specimen Anatomical Collection Method Collection Time Receive d Time (Source) Location / / Volume Laterality Blood (Blood, 07/24/2020 8:13 AM 07/25/19 8:21 Venous) CDT AM CDT Nova Jose.S. LAB BLOOD ADD-ON Performing Organization Address City/[facility] Phon e Number [facility] - [address] [place] [address] [address] [facility] (ABNORMAL) Creatinine with Estimated GFR (07/24/2020 8:13 AM CDT) athologist Signature Creatinine, S 1.02 0.59 - 07/24/2020 DTL 1.04 mg/dL 9:03 AM CDT eGFR-Non 53 (L) >=60 07/24/2020 DTL Black/ mL/min/BSA 9:03 AM CDT Japanese Comment: ----ADDITIONAL INFORMATION---- Estimated [...] M.S. LAB BLOOD ADD-ON Performing Organization Address City/[facility]/ZIP Code Phon e Number [facility] - [address] [place] [address] [address] [facility] Phosphorus Inorganic (07/24/2020 8:13 AM CDT) athologist Signature Phosphorus 3.3 2.5 - 4.5 07/24/2020 DTL (Inorganic), S mg/dL 9:03 AM CDT Specimen Anatomical Collection Method Collection Time Receive d Time (Source) Location / / Volume Laterality Blood (Blood, 07/24/2020 8:13 AM 07/25/19 8:21 Venous) CDT AM CDT Kimberly Rios APRN, C.N.P., M.S. LAB BLOOD ADD-ON Performing Organization Address City/[facility]/ZIP Code Phon e Number [facility] - [address] (ABNORMAL) Calcium, Total (07/24/2020 8:13 AM CDT) P athologist Signature Calcium, 7.7 (L) 8.8 - 10.2 07/24/2020 DTL Total, S mg/dL 9:03 AM CDT Specimen Anatomical Collection Method Collection Time Receive d Time (Source) Location / / Volume Laterality Blood (Blood, 07/24/2020 8:13 AM 07/25/19 21 8:21 Venous) CDT AM CDT Kimberly Rios APRN, C.N.P., M.S. LAB BLOOD ADD-ON Performing Organization Address City/[facility]/ZIP Code Phon e Number [facility] - [id number] [place] [address] Parathyroid Hormone (PTH) (07/24/2020 8:13 AM CDT) P athologist Signature Parathyroid 33 15 - 65 07/24/2020 DTL Hormone (PTH), S pg/mL 9:03 AM CDT Specimen Anatomical Collection Method Collection Time Receive d Time (Source) Location / / Volume Laterality Blood (Blood, 07/24/2020 8:13 AM 07/25/19 21 8:21 Venous) CDT AM CDT Trace Rudolph APRNNAbdirashid., M.S. LAB BLOOD ADD-ON Performing Organization Address City/State/ZIP Code Phon e Number [facility] - [address] [place] [address] Laboratories-[facility] [address] documented in this encounter Visit Diagnoses Diagnosis Malignant Neoplasm Of Pancreas Adenocarc inoma (HCC) - Primary Hypocalcemia Hypoparathyroidism (HCC) documented in this encounter Administered Medications Inactive Administered Medications - up to 3 most recent administrations Medication Order MAR Action Action Date Dose Rate Site heparin flush 500 Units Given 07/24/2020 8:02 AM CDT 500 Units 500 Units, intra-catheter, As needed, line care, Starting on Mon07/24/20 at 0802, When no infusion to maintain patency: For IVAD accessed, not in use, and/or prior to hospital discharge, flush every 7 days after 0.9% preservative-free NaCL flush. For IVAD NOT accessed or used, flush every 4 weeks after 0.9% preservative-free NaCL flush. sodium chloride 0.9 % injection 10 mL Given 07/24/2020 8:02 AM CDT 10 mL 10 mL, intra-catheter, As needed, line care, Starting on Mon07/24/20 at 0802, When IVAD Accessed and in Use: Flush prior to and following infusion, between multiple consecutive infusions, and prior to blood sampling. sodium chloride 0.9 % injection 20 mL Given 07/24/2020 8:02 AM CDT 20 mL 20 mL, intra-catheter, As needed, line care, Starting on Mon07/24/20 at 0802, When IVAD Accessed and in Use: Flush post blood transfusion or post blood sampling. documented in this encounter
--- OUTSIDE RECORDS SUMMARY | 2021-11-03 07:08 | XMS_ITS | Encounter Summary ---
:1940 Author Organization [facility] Address [address] [place] [address] Care Team Providers Name Role Phone Unavailable Primary Care Provider Unavailable Reason for Referral Outpatient (Routine) Specialty Diagnoses / Procedures Referred By Contact Refer red To Contact Oncology Kimberly Rios APRN, C.N.P[place], [facility] [address] [place], [place] [address] Referral ID Status Reason Start Date Expiration Date Visits Requ ested Visits Authorized utpatient (Routine) Specialty Diagnoses / Procedures Referred By Contact Dory simon To Contact Oncology Kimberly Rios APRN, C.N.P[place], [facility] [address] [place] [address] Referral ID Status Reason Start Date Expiration Date Visits Requ ested Visits Authorized Encounter Details Date Type Department Care Team Description 07/07/2020 Orders Only Department of Kimberly Rios eoplasm Of Oncology in [place] C.N.P[place], Pancreas Ad enocarcinoma [facility]. (HCC) (Primary Dx) [address] [facility] [address] [place] [phone] Social History Tobacco Use Types Packs/Day Years [...] Comprehensive Visit Neurology Kenji Zaldivar M.D. 200 [place] [address] Scheduled Referrals Name Type Priority Associated Diagnoses Order S [facility] Oncology office Outpatient Referral Routine Malignant Neoplasm Of Expected: visit (clinic) Pancreas Adenocarcinoma , (HCC) Expires: 08/03/2021 Oncology office Outpatient Referral Routine Malignant Neoplasm Of Expected: visit (clinic) Pancreas Adenocarcinoma , (HCC) Expires: 08/17/2021 documented as of this encounter Results Bilirubin, Direct (08/17/2020 8:41 AM CDT) athologist Signature Bilirubin, <0.2 0.0 - 0.3 08/17/2020 DTL Direct, S mg/dL 9:39 AM CDT Specimen Anatomical Collection Method Collection Time Receive d Time (Source) Location / / Volume Laterality Blood (Blood, 08/17/2020 8:41 AM 08/18/19 8:53 Venous) CDT AM CDT Trace Rudolph APRNN.Hossein., M.S. LAB BLOOD ADD-ON Performing Organization Address City/State/[facility] Code Phon e Number [facility] - 200 [place], [place] [address] [facility] [place] [address] [facility] [address] [facility] (ABNORMAL) Comprehensive Metabolic Panel (08/17/2020 8:41 AM [...] 08/17/2020 DTL Black/ mL/min/BSA 9:39 AM CDT Moldovan Comment: ----ADDITIONAL INFORMATION---- Estimated GFR calculated using [...] 8:53 Venous) CDT AM CDT Kimberly Rios APRN C.N.P., M.S. LAB BLOOD ADD-ON Performing Organization Address City/State/ZIP Code Phon e Number [facility] - 200 [address] [place], [place] [address] [facility] [place] [address] [facility] [address] [facility] (ABNORMAL) CBC with Differential, Blood (08/17/2020 8:41 AM CDT) [facility] gist Method Time Signature Hemoglobin 10.2 (L) 11.6 [...] Laterality Blood (Blood, 08/17/2020 8:41 AM 08/18/19 21 9:03 Venous) CDT AM CDT Kimberly Rios APRN, C.N.P., M.S. LAB BLOOD ADD-ON Performing Organization Address City/State/ZIP Code Phon e Number [facility] - [address] [place], [place] [address] [facility] [place] [address] [facility] [address] Bilirubin, Direct (08/03/2020 9:39 AM CDT) [...] Organization Address City/State/ZIP Code Phon e Number [facility] - [address] [place], [place] [address] [facility] [place] [address] [facility] [address] (ABNORMAL) Comprehensive Metabolic Panel (08/03/2020 9:39 AM CDT) P athologist Signature Potassium, S 4.0 3.6 - [...] 08/03/2020 DTL Black/ mL/min/BSA 10:53 AM CDT Moldovan Comment: ----ADDITIONAL INFORMATION---- Estimated GFR calculated using [...] Blood (Blood, 08/03/2020 9:39 AM 08/04/19 21 9:52 Venous) CDT AM CDT Kp Rudolph APRN.Hossein., M.S. LAB BLOOD ADD-ON Performing Organization Address City/State/ZIP Code Phon e Number [facility] - 200 [place], [place] [address] [facility] [place] [address] [facility] [address] 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
--- OUTSIDE RECORDS SUMMARY | 2021-11-03 07:08 | XMS_ITS | Encounter Summary ---
:1940 Author Organization [facility] Address [address] [place] [address] Care Team Providers Name Role Phone Unavailable Primary Care Provider Unavailable Reason for Referral MRI/CAT/PET Scan (Routine) - Closed Specialty Diagnoses / Procedures Referred By Contact Refer red To Contact Radiology Diagnoses Malignant Neoplasm Of Pancreas Adenocarcinoma (HCC) Nova Vivar M.B.B.S. [facility] Procedures CT Abdomen Pelvis with IV Contrast 200 [place], [place] [address] Referral ID Status Reason Start Date Expiration Date Visits Requ ested Visits Authorized [id number] Closed 07/20/2020 07/20/2021 1 1 MRI/CAT/PET Scan (Routine) - Closed Specialty Diagnoses / Procedures Referred By Contact Refer red To Contact Radiology Diagnoses Malignant Neoplasm Of Pancreas Adenocarcinoma (HCC) Nova Vivar M.B.B.S. [facility] Procedures CT Chest with IV Contrast 200 [place] [address] Referral ID Status Reason Start Date Expiration Date Visits Requ ested Visits Authorized [id number] Closed 07/20/2020 07/20/2021 1 1 Reason for Visit MRI/CAT/PET Scan (Routine) - Closed Specialty Diagnoses / Procedures Referred By Contact Refer red To Contact Radiology Diagnoses Malignant Neoplasm Of Pancreas Adenocarcinoma (HCC) Nova Vivar M.B.B.S. [facility] Procedures CT Abdomen Pelvis with IV Contrast [address] [place] [phone] Referral ID Status Reason Start Date Expiration Date Visits Requ ested Visits Authorized [id number] Closed 07/20/2020 07/20/2021 1 1 Encounter Details Date Type Department Care Team Description 07/31/2020 Hospital Encounter Department of Nova Vivar Malignan t Neoplasm Of Radiology, Cristian Mcneal[place] Pancreas Adenocarcinoma Building, in [address] [place] [address] (HCC) [facility] [phone] [place] [address] [place], [place] (Work) [phone] Social History Tobacco Use Types Packs/Day Years [...] Sig Dispensed Refills Start Date End Date imfzpxj-N5-rfms-copper-ma Take by mouth. 0 2020 tawana (Citracal-D3 Maximum Taking 3-4 daily Plus) 325 mg-12.5 mcg -2.75 mg tablet ESTRIOL MICRONIZED, BULK, Three Times Weekly 0 MISC lidocaine-prilocaine Apply 1 application 30 g 0 [...] D3, ORAL units oral tablet dexAMETHasone (DECADRON) TAKE 2 TABLETS BY 6 tablet 3 05/05/202010/14/2020 4 mg tabletIndications: MOUTH DAILY. 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 (HCC) levothyroxine sodium Synthroid 0 11/25/200908/26 (LEVOTHYROXINE ORAL) [...] 1 tablet (10 mg 30 tablet 3 07/13/2021 (COMPAZINE) 10 mg total) by mouth tabletIndications: every 6 (six) hours Malignant Neoplasm Of as needed for nausea Pancreas Adenocarcinoma or vomiting. (HCC) documented as of this encounter Nursing Notes Dorothy Lion R.N. - 07/31/2020 12:15 PM CDT Patient has a port but has no other testing today that requires the use of it. PIV started. documented in this encounter Plan of Treatment Upcoming Encounters Date Type Specialty Care Team Description 11/19/2021 Clinical Communication Admitting/Central Scheduling 11/23/2021 Comprehensive Visit Neurology Kenji Zaldivar M.D. 200 [place] [address] documented as of this encounter Procedures Procedure Name Priority Date/Time Associated Diagnosis Comme nts CT ABDOMEN RAD - Routine 07/31/2020 12:23 Malignant Neoplasm Of R esults for PELVIS WITH IV (most inpatients PM CDT Pancreas this proc edure CONTRAST and all Adenocarcinoma (HCC) are in the outpatients) results section. CT CHEST WITH IV RAD - Routine 07/31/2020 12:23 Malignant Neoplasm Of Results for CONTRAST (most inpatients PM CDT Pancreas this proced ure and all Adenocarcinoma (HCC) are in the outpatients) results section. documented in this encounter Results CT Abdomen Pelvis with IV Contrast (07/31/2020 [...] mm hypodensity in hepatic segme nt VIII (/), favored to represent a cyst. The common [...] convincing findings of hepatic metastatic disease. Nova JaramilloB.B.S. IMG CT PROCEDURES CT Chest with IV [...] up to 3-4 mm were above the irpgn-do-rdzy on p rior imaging, for example in [...] up to 3-4 mm were above the ltpxn-iy-hgqz on p rior imaging, for example in the right middle lobe (3/327) and right upper lobe (3/139). IMPRESSION: Indeterminate pulmonary nodules measurin g up to 5 mm for which this can serve as a baseline for follow-up imaging. Nova McnealSChico IMG CT PROCEDURES documented in this encounter Visit Diagnoses Diagnosis Malignant Neoplasm Of Pancreas Adenocarc inoma (HCC) documented in this encounter Administered Medications Inactive Administered Medications - up to 3 most recent administrations Medication Order MAR Action Action Date Dose Rate Site iohexoL 300 mg iodine/mL solution Given 07/31/2020 12:11 PM CDT 96 mL 1-200 mL (OMNIPAQUE) 1-200 mL, intravenous, Once in imaging, contrast, Starting on Mon07/31/20 at 1125, For 1 dose, Imaging Protocol Orders, Dose per Radiant Medication Guidelines sodium chloride (PF) 0.9 % injection 1-1 00 mL Given 07/31/2020 12:12 PM CDT 45 mL 1-100 mL, intravenous, Once, On Mon07/31/20 at 1130, For 1 dose, Imaging Protocol Orders documented in this encounter
--- OUTSIDE RECORDS SUMMARY | 2021-11-03 07:08 | XMS_ITS | Encounter Summary ---
:1940 Author Organization [facility] Address [address] [place] [address] Care Team Providers Name Role Phone Unavailable Primary Care Provider Unavailable Reason for Visit Episode Based Medications (Routine) - Authorized Specialty Diagnoses / Procedures Referred By Contact Refer red To Contact Diagnoses Malignant Neoplasm Of Pancreas Adenocarcinoma (HCC) Neutropenia Chemotherapy Induced (HCC) Kimberly Rios, Rst Onc Coy HIGH C.N.P., M.S. [address] [place] [address] [place] [phone] Referral ID Status Reason Start Date Expiration Date Visits V isits Requested Authorized [id number] Authorized 06/03/2020 06/03/2021 99 99 Encounter Details Date Type Department Care Team Description 07/20/2020 Lab Department of Infusion Kimberly Rios, Malignant Neoplasm Of Therapy in [facility] [place] C.N. P., M.S. Pancreas Adenocarcinoma [place] [address] [place] [address] (HCC) (Primary Dx) [address] [place] [phone] Social History Tobacco Use Types Packs/Day Years [...] Visit Neurology Kenji Zaldivar M.D. [address] [place] [address] documented as of this encounter Procedures Procedure Name Priority Date/Time Associated Diagnosis Comme nts CBC WITH Routine 07/20/2020 1:21 Malignant Neoplasm Of Res ults for this DIFFERENTIAL, B PM CDT Pancreas procedure ar e in Adenocarcinoma (HCC) the res ults section. MAGNESIUM, S Routine 07/20/2020 1:21 Malignant Neoplasm Of Res ults for this PM CDT Pancreas procedure are i n Adenocarcinoma (HCC) the res ults section. BILIRUBIN DIRECT, S/P Routine 07/20/2020 1:21 Malignant Neopla sm Of Results for this PM CDT Pancreas procedure are i n Adenocarcinoma (HCC) the res ults section. COMPREHENSIVE Routine 07/20/2020 1:21 Malignant Neoplasm Of Re sults for this METABOLIC PANEL, S/P PM CDT Pancreas procedu re are in Adenocarcinoma (HCC) the res ults section. documented in this encounter Results Magnesium (07/20/2020 1:21 PM CDT) athologist Signature Magnesium, S 2.2 1.7 - 2.3 07/21/2020 DTL mg/dL 11:33 AM CDT Specimen Anatomical Collection Method Collection Time Receive d Time (Source) Location / / Volume Laterality Blood (Blood, 07/20/2020 1:21 PM 07/22/19 Venous) CDT 11:03 AM CDT Nova ZamoraB.S. LAB BLOOD ADD-ON Performing Organization Address City/[facility] Phon e Number [facility] - [address] Bilirubin, Direct (07/20/2020 1:21 PM CDT) athologist Signature Bilirubin, <0.2 0.0 - 0.3 07/20/2020 DTL Direct, S mg/dL 2:21 PM CDT Specimen Anatomical Collection Method Collection Time Receive d Time (Source) Location / / Volume Laterality Blood (Blood, 07/20/2020 1:21 PM 07/21/19 1:46 Venous) CDT PM CDT Kp Rudolph APRN.Hossein., M.S. LAB BLOOD ADD-ON Performing Organization Address City/[facility] Phon e Number [facility] - 200 [place] [address] Laboratories[address] (ABNORMAL) Comprehensive Metabolic Panel (07/20/2020 1:21 PM CDT) athologist Signature Potassium, S 3.8 3.6 - 5.2 07/20/2020 DTL mmol/L 2:21 PM CDT Sodium, S 142 135 - 145 07/20/2020 DTL mmol/L 2:21 PM CDT Chloride, S 99 98 - 107 07/20/2020 DTL mmol/L 2:21 PM CDT Bicarbonate, S 32 (H) 22 - 29 07/20/2020 DTL mmol/L 2:21 PM CDT Anion Gap 11 7 - 15 07/20/2020 DTL 2:21 PM CDT BUN (Blood Urea 21 6 - 21 07/20/2020 DTL Nitrogen), S mg/dL 2:21 PM CDT Creatinine, S 1.01 0.59 - 07/20/2020 DTL 1.04 mg/dL 2:21 PM CDT eGFR-Non 53 (L) >=60 07/20/2020 DTL Black/ mL/min/BSA 2:21 PM CDT Nigerian Comment: ----ADDITIONAL INFORMATION---- Estimated GFR calculated using the 2009 CKD_EPI creatinine equation. eGFR-Black/ 62 >=60 mL/min/BSA 2020 2:21 PM CDT DTL Comment: ----ADDITIONAL INFORMATION---- Estimated GFR calculated using the 2009 CKD_EPI creatinine equation. Calcium, Total, S 11.3 (H) 8.8 - 10.2 mg/dL 07/20/2020 2:21 PM CDT DTL Glucose, S 92 70 - 140 mg/dL 07/20/2020 2:21 PM CDT D TL Protein, Total, S 6.0 (L) 6.3 - 7.9 g/dL 07/20/2020 2:21 P M CDT DTL Albumin, S 4.0 3.5 - 5.0 g/dL 07/20/2020 2:21 PM CDT D TL Aspartate Aminotransferase 17 8 - 43 U/L 07/20/2020 2 :21 PM CDT DTL (AST), S Alkaline Phosphatase, S 74 35 - 104 U/L 07/20/2020 2: 21 PM CDT DTL Alanine Aminotransferase 20 7 - 45 U/L 07/20/2020 2:2 1 PM CDT DTL (ALT), S Bilirubin, Total, S <0.2 <=1.2 mg/dL 07/20/2020 2:21 PM CDT DTL Specimen Anatomical Collection Method Collection Time Receive d Time (Source) Location / / Volume Laterality Blood (Blood, 07/20/2020 1:21 PM 07/21/19 21 1:46 Venous) CDT PM CDT Kimberly Alan Rios APRN, C.N.P., M.S. LAB BLOOD ADD-ON Performing Organization Address City/State/ZIP Code Phon e Number [facility] - 200 [place], [place] [address] [facility] [place] [address] [facility] 200 [facility] (ABNORMAL) CBC with Differential, Blood (07/20/2020 1:21 PM CDT) [facility] Method Time Signature Hemoglobin 10.0 (L) 11.6 - 07/20/2020 DTL 15.0 g/dL 1:53 PM CDT Hematocrit 29.6 (L) 35.5 - 07/20/2020 DTL 44.9 % 1:53 PM CDT Erythrocytes 3.05 (L) 3.92 - 07/20/2020 DTL 5.13 1:53 PM CDT x10(12)/L MCV 97.0 78.2 - 07/20/2020 DTL 97.9 fL 1:53 PM CDT RBC Distrib Width 14.2 12.2 - 07/20/2020 DTL 16.1 % 1:53 PM CDT Platelet Count 219 157 - 371 07/20/2020 DTL x10(9)/L 1:53 PM CDT Leukocytes 4.3 3.4 - 9.6 07/20/2020 DTL x10(9)/L 1:53 PM CDT Neutrophils 2.82 1.56 - 07/20/2020 DTL 6.45 1:53 PM CDT x10(9)/L Lymphocytes 0.70 (L) 0.95 - 07/20/2020 DTL 3.07 1:53 PM CDT x10(9)/L Monocytes 0.65 0.26 - 07/20/2020 DTL 0.81 1:53 PM CDT x10(9)/L Eosinophils 0.06 0.03 - 07/20/2020 DTL 0.48 1:53 PM CDT x10(9)/L Basophils <0.03 0.01 - 07/20/2020 DTL 0.08 1:53 PM CDT x10(9)/L Specimen Anatomical Collection Method Collection Time Receive d Time (Source) Location / / Volume Laterality Blood (Blood, 07/20/2020 1:21 PM 07/21/19 1:46 Venous) CDT PM CDT Kimberly Phillips Gabriel HIGH C.N.P., M.S. 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 For IVAD NOT accessed or used, flush every 4 weeks after 0.9% preservative-free NaCL flush. sodium chloride 0.9 % injection 10 mL Given 07/20/2020 1:13 PM CDT 10 mL 10 mL, intra-catheter, As needed, line care, Starting on 07/20/20 at 1325, When IVAD Accessed and in Use: Flush prior to and following infusion, between multiple consecutive infusions, and prior to blood sampling. sodium chloride 0.9 % injection 20 mL Given 07/20/2020 1:25 PM CDT 20 mL 20 mL, intra-catheter, As needed, line care, Starting on 07/20/20 at 1325, When IVAD Accessed and in Use: Flush post blood transfusion or post blood sampling. documented in this encounter
--- OUTSIDE RECORDS SUMMARY | 2021-11-03 07:09 | XMS_ITS | Encounter Summary ---
:1940 Author Organization [facility] Address [address] [place] [address] Care Team Providers Name Role Phone Unavailable Primary Care Provider Unavailable Encounter Details Date Type Department Care Team Description 06/18/2020 Orders Only Pharmacy Prior Auth Nataly Solis [phone] Social History Tobacco Use Types Packs/Day Years [...] or relatives? How often do you attend denominational or More than 4 times per year 06/19/2021 amish services? Do you belong to any clubs or Yes 06/19/2021 organizations such as denominational groups, unions, fraternal or athletic groups, or [...] Comprehensive Visit Neurology Kenji Zaldivar M.D. [address] [place] [phone] documented as of this encounter Visit Diagnoses Not on filedocumented in this encounter
--- OUTSIDE RECORDS SUMMARY | 2021-11-03 07:09 | XMS_ITS | Encounter Summary ---
:1940 Author Organization [facility] Address [address] [place] [address] Care Team Providers Name Role Phone Unavailable Primary Care Provider Unavailable Reason for Visit Reason Comments questions about medications Encounter Details Date Type Department Care Team Description 06/03/2020 Clinical Communication Department of Jose Carlos Hudson about Oncology in S, R.N., medications [facility] [address] [facility] [address] [place] [phone] Social History Tobacco Use Types Packs/Day Years [...] or relatives? How often do you attend buddhism or More than 4 times per year 06/19/2021 yazdanism services? Do you belong to any clubs or Yes 06/19/2021 organizations such as buddhism groups, unions, fraternal or athletic groups, or [...] Telephone Encounter - Beatriz Weinberg R.N. - 06/03/2020 3:15 PM CST SUBJECTIVE CHIEF COMPLAINT / REASON FOR CALL questions about medications Information Discussed Received a phone call from Ms. العراقي. She stated that she received 5 to for medications from the pharmacy. She was expecting to only have 1 medication for nausea. She passed for clarification as to whatthe medications are used for. 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 She plans to begin chemotherapy treatment with FOLFIRINOX on 06/08/2020. PLAN I contacted Ms. العراقي by phone and discussed with her that the medications she picked up from the pharmacy will be used with her chemotherapy treatment. They will be discussed in detail with for 06/08/2020, but I informed her that the prochlorperazine, ondansetron, and lorazepam are prescribed for nausea. The loperamide is prescribed for diarrhea. The dexamethasone is prescribed as a part of the regimen to assist with fatigued. I suggested that if she has difficulty with nausea prior to starting the chemotherapy treatment next week, she could try the prochlorperazine and, if needed, the ondansetron.Ms. العراقي verbalized understanding and thanked me for returning the phone call. Disposition/Recommendation: As noted above Information/Education: patient/caller able to teach back Caller agreeable to plan of care: yes The following references were used: nursing clinical judgement [employer] Telephone Encounter - Traci Rodriguez - 06/03/2020 2:29 PM CST Do we have a valid auth to speak with caller? yes Reason for call: Patient said that she talked to Kimberly about having nausea and Kimebrly told her that she would write a Rx. 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 She would like a call back to discuss what medications are for what. Please call patient back to discuss. Thank you, Traci CHOPRA [facility] Aa POD 1 [employer] documented in this encounter Plan of Treatment Upcoming Encounters Date Type Specialty Care Team Description 11/19/2021 Clinical Communication Admitting/Central Scheduling 11/23/2021 Comprehensive Visit Neurology Kenji Zaldivar M.D. [address] [place] [phone] documented as of this encounter Visit Diagnoses Not on filedocumented in this encounter
--- OUTSIDE RECORDS SUMMARY | 2021-11-03 07:09 | XMS_ITS | Encounter Summary ---
:1940 Author Organization [facility] Address [address] [place] [address] Care Team Providers Name Role Phone Unavailable Primary Care Provider Unavailable Reason for Visit Outpatient (Routine) - Closed Specialty Diagnoses / Procedures Referred By Contact Refer red To Contact Diagnoses Malignant Neoplasm Of Pancreas Adenocarcinoma (HCC) Kimberly Rios APRN, [facility] Region Procedures ONC Pump Disconnect C.N.P., M.S. 200 [place] [address] Referral ID Status Reason Start Date Expiration Date Visits Requ ested Visits Authorized [id number] Closed 06/08/2020 06/08/2021 1 1 Encounter Details Date Type Department Care Team Description 06/10/2020 Infusion Department of Infusion Kimberly Rios Ma lignant Neoplasm Of Therapy in [facility], LENNOX, C.N.P., Sigala creas Adenocarcinoma [facility]. (HCC) (Primary Dx) [address] [place] [phone] Social History Tobacco Use [...] 06/19/2021 organizations such as restorationism groups, unions, [employer] or athletic groups, or school groups? How [...] Sign Reading Time Taken Comments Blood Pressure 147/72 06/10/2020 2:14 PM CDT Pulse 73 06/10/2020 2:14 PM CDT Temperature 37.1 ??C (98.8 ??F) 06/10/2020 2:14 PM CDT Respiratory Rate - - Oxygen Saturation - - Inhaled Oxygen Concentration - - Weight - - Height - - Body Mass Index - - documented in this encounter Plan of Treatment Upcoming Encounters Date Type Specialty Care Team Description 11/19/2021 Clinical Communication Admitting/Central Scheduling 11/23/2021 Comprehensive Visit Neurology Kenji Zaldivar M.D. 200 [place] [phone] documented as of this encounter Visit Diagnoses Diagnosis Malignant Neoplasm Of Pancreas Adenocarc inoma (HCC) - Primary documented in this encounter Administered Medications Inactive Administered Medications - up to 3 most recent administrations Medication Order MAR Action Action Date Dose Rate Site heparin flush 500 Units Given 06/10/2020 2:28 PM CDT 500 Units 500 Units, intra-catheter, As needed, line care, Starting on Mon06/10/20 at 1352, When no infusion to maintain patency: For IVAD accessed, not in use, and/or prior to hospital discharge, flush every 7 days after 0.9% preservative-free NaCL flush. For IVAD NOT accessed or used, flush every 4 weeks after 0.9% preservative-free NaCL flush. sodium chloride 0.9 % injection 20 mL Given 06/10/2020 2:28 PM CDT 20 mL 20 mL, intra-catheter, As needed, line care, Starting on Mon06/10/20 at 1352, When IVAD Accessed and in Use: Flush post blood transfusion or post blood sampling. documented in this encounter
--- OUTSIDE RECORDS SUMMARY | 2021-11-03 07:09 | XMS_ITS | Encounter Summary ---
:1940 Author Organization [facility] Address [address] [place] [address] Care Team Providers Name Role Phone Unavailable Primary Care Provider Unavailable Reason for Visit Episode Based Medications (Routine) - Authorized Specialty Diagnoses / Procedures Referred By Contact Refer red To Contact Diagnoses Malignant Neoplasm Of Pancreas Adenocarcinoma (HCC) Neutropenia Chemotherapy Induced (HCC) Kimberly Rios, Rsmarleen Onc Coy HIGH C.N.P., M.S. [address] [place] [address] [place] [phone] Referral ID Status Reason Start Date Expiration Date Visits V isits Requested Authorized [id number] Authorized 06/03/2020 06/03/2021 99 99 Encounter Details Date Type Department Care Team Description 06/22/2020 Lab Department of Laboratory Kimberly Rios, Malignant Neoplasm Of Medicine and Pathology, LENNOX C. N.P., M.S. Pancreas Adenocarcinoma [place], in [address] [place] [address] (HCC) (Primary Dx) [place], [place] [address] [place] [phone] [place] [phone] Social History Tobacco Use Types Packs/Day [...] Visit Neurology Kenji Zaldivar M.D. [address] [place] [phone] documented as of this encounter Procedures Procedure Name Priority Date/Time Associated Diagnosis Comme nts CBC WITH Routine 06/22/2020 9:53 Malignant Neoplasm Of Res ults for this DIFFERENTIAL, B AM CDT Pancreas procedure ar e in Adenocarcinoma (HCC) the res ults section. BILIRUBIN DIRECT, S/P Routine 06/22/2020 9:53 Malignant Neopla sm Of Results for this AM CDT Pancreas procedure are i n Adenocarcinoma (HCC) the res ults section. COMPREHENSIVE Routine 06/22/2020 9:53 Malignant Neoplasm Of Re sults for this METABOLIC PANEL, S/P AM CDT Pancreas procedu re are in Adenocarcinoma (HCC) the res ults section. documented in this encounter Results Bilirubin, Direct (06/22/2020 9:53 AM CDT) athologist Signature Bilirubin, <0.2 0.0 - 0.3 06/22/2020 DTL Direct, S mg/dL 10:34 AM CDT Specimen Anatomical Collection Method Collection Time Receive d Time (Source) Location / / Volume Laterality Blood (Blood, 06/22/2020 9:53 AM 06/23/19 21 Venous) CDT 10:00 AM CDT Kimberly Rios APRN, C.N.P., M.S. LAB BLOOD ADD-ON Performing Organization Address City/State/ZIP Code Phon e Number [facility] - [address] [place], [place] [address] [facility] [place] [address] Laboratories-[facility] [place] [address] (ABNORMAL) Comprehensive Metabolic Panel (06/22/2020 9:53 AM CDT) athologist Signature Potassium, S 3.9 3.6 - 5.2 06/22/2020 DTL mmol/L 10:34 AM CDT Sodium, S 138 135 - 145 06/22/2020 DTL mmol/L 10:34 AM CDT Chloride, S 96 (L) 98 - 107 06/22/2020 DTL mmol/L 10:34 AM CDT Bicarbonate, S 33 (H) 22 - 29 06/22/2020 DTL mmol/L 10:34 AM CDT Anion Gap 9 7 - 15 06/22/2020 DTL 10:34 AM CDT BUN (Blood Urea 21 6 - 21 06/22/2020 DTL Nitrogen), S mg/dL 10:34 AM CDT Creatinine, S 0.95 0.59 - 06/22/2020 DTL 1.04 mg/dL 10:34 AM CDT eGFR-Non 58 (L) >=60 06/22/2020 DTL Black/ mL/min/BSA 10:34 AM CDT Maldivian Comment: ----ADDITIONAL INFORMATION---- Estimated GFR calculated using the 2009 CKD_EPI creatinine equation. eGFR-Black/ 66 >=60 mL/min/BSA 2020 10:34 AM CDT DTL Comment: ----ADDITIONAL INFORMATION---- Estimated GFR calculated using the 2009 CKD_EPI creatinine equation. Calcium, Total, S 9.6 8.8 - 10.2 mg/dL 06/22/2020 10:3 4 AM CDT DTL Glucose, S 97 70 - 140 mg/dL 06/22/2020 10:34 AM CDT DTL Protein, Total, S 6.3 6.3 - 7.9 g/dL 06/22/2020 10:34 AM CDT DTL Albumin, S 4.2 3.5 - 5.0 g/dL 06/22/2020 10:34 AM CDT DTL Aspartate Aminotransferase 23 8 - 43 U/L 06/22/2020 1 0:34 AM CDT DTL (AST), S Alkaline Phosphatase, S 71 35 - 104 U/L 06/22/2020 10 :34 AM CDT DTL Alanine Aminotransferase (ALT), 32 7 - 45 U/L 021 10:34 AM CDT DTL S Bilirubin, Total, S 0.2 <=1.2 mg/dL 06/22/2020 10:34 A M CDT DTL Specimen Anatomical Collection Method Collection Time Receive d Time (Source) Location / / Volume Laterality Blood (Blood, 06/22/2020 9:53 AM 06/23/19 21 Venous) CDT 10:00 AM CDT Trace Rudolph APRNN.Hossein., M.S. LAB BLOOD ADD-ON Performing Organization Address City/State/ZIP Code Phon e Number [facility] - [address] [place], [place] [address] [facility] [place] [address] Laboratories-[facility] [address] (ABNORMAL) CBC with Differential, Blood (06/22/2020 9:53 AM CDT) [facility] Method Time Signature Hemoglobin 9.8 (L) 11.6 - 06/22/2020 DTL 15.0 g/dL 10:11 AM CDT Hematocrit 29.6 (L) 35.5 - 06/22/2020 DTL 44.9 % 10:11 AM CDT Erythrocytes 3.09 (L) 3.92 - 06/22/2020 DTL 5.13 10:11 AM CDT x10(12)/L MCV 95.8 78.2 - 06/22/2020 DTL 97.9 fL 10:11 AM CDT RBC Distrib Width 13.0 12.2 - 06/22/2020 DTL 16.1 % 10:11 AM CDT Platelet Count 222 157 - 371 06/22/2020 DTL x10(9)/L 10:11 AM CDT Leukocytes 2.6 (L) 3.4 - 9.6 06/22/2020 DTL x10(9)/L 10:11 AM CDT Neutrophils 1.42 (L) 1.56 - 06/22/2020 DTL 6.45 10:11 AM CDT x10(9)/L Lymphocytes 0.44 (L) 0.95 - 06/22/2020 DTL 3.07 10:11 AM CDT x10(9)/L Monocytes 0.67 0.26 - 06/22/2020 DTL 0.81 10:11 AM CDT x10(9)/L Eosinophils 0.05 0.03 - 06/22/2020 DTL 0.48 10:11 AM CDT x10(9)/L Basophils 0.03 0.01 - 06/22/2020 DTL 0.08 10:11 AM CDT x10(9)/L Specimen Anatomical Collection Method Collection Time Receive d Time (Source) Location / / Volume Laterality Blood (Blood, 06/22/2020 9:53 AM 06/23/19 21 Venous) CDT 10:01 AM CDT Harleen Rudolph APRN.N.P., M.S. LAB BLOOD ADD-ON Performing Organization Address City/State/ZIP Code Phon e Number [facility] - [address] [place], [place] [address] [place] [place] [address] Laboratories-[facility] [address] documented in this encounter Visit Diagnoses Diagnosis Malignant Neoplasm Of Pancreas Adenocarc inoma (HCC) - Primary documented in this encounter Administered Medications Inactive Administered Medications - up to 3 most recent administrations Medication Order MAR Action Action Date Dose Rate Site heparin flush 500 Units Given 06/22/2020 9:57 AM CDT 500 Units 500 Units, intra-catheter, As needed, line care, Starting on Mon06/22/20 at 0942, When no infusion to maintain patency: For IVAD accessed, not in use, and/or prior to hospital discharge, flush every 7 days after 0.9% preservative-free NaCL flush. For IVAD NOT accessed or used, flush every 4 weeks after 0.9% preservative-free NaCL flush. sodium chloride 0.9 % injection 10 mL Given 06/22/2020 9:56 AM CDT 10 mL 10 mL, intra-catheter, As needed, line care, Starting on Mon06/22/20 at 0942, When IVAD Accessed and in Use: Flush prior to and following infusion, between multiple consecutive infusions, and prior to blood sampling. sodium chloride 0.9 % injection 20 mL Given 06/22/2020 9:57 AM CDT 20 mL 20 mL, intra-catheter, As needed, line care, Starting on Mon06/22/20 at 0942, When IVAD Accessed and in Use: Flush post blood transfusion or post blood sampling. documented in this encounter
--- OUTSIDE RECORDS SUMMARY | 2021-11-03 07:09 | XMS_ITS | Encounter Summary ---
:1940 Author Organization [facility] Address [address] [place] [address] Care Team Providers Name Role Phone Unavailable Primary Care Provider Unavailable Encounter Details Date Type Department Care Team Description 06/10/2020 Clinical Communication Department of Oncology Tiera Augustine in [place] [address] [facility] [address] [place] [phone] Social History Tobacco Use Types Packs/Day Years [...] this encounter Miscellaneous Notes Telephone Encounter - Tiera Augustine M.D. - 06/10/2020 7:38 PM CDT I received a call from the patient this evening explaining that she has been feeling anxious and jittery in the morning and this evening. She is wondering if this has something to do with the dexamethasone she is taking. She is currently day 3 into 2 tabs of 4 mg dexamethasone this morning. She statesthat she has been afebrile and does not have any shaking chills or infectious symptoms. She states that her nausea is well controlled. I explained that the dexamethasone could certainly be contributingto her feelings of increased anxiety. She could consider taking 4 mg tomorrow to complete her 3 day course of dexamethasone to see if this helps her symptoms, assuming she does not have any significantnausea tomorrow morning. I state that I will contact Dr. Vivar and Kimberly Rios with this informationfor consideration of decreasing her dose of dexamethasone in subsequent cycles. If she should develop any signs of infection such as fever, shaking chills, diarrhea or cough, she should go in to be evaluated for possible infection. documented in this encounter Plan of Treatment Upcoming Encounters Date Type Specialty Care Team Description 11/19/2021 Clinical Communication Admitting/Central Scheduling 11/23/2021 Comprehensive Visit Neurology Kenji Zaldivar M.D. [address] [place] [address] documented as of this encounter Visit Diagnoses Not on filedocumented in this encounter
--- OUTSIDE RECORDS SUMMARY | 2021-11-03 07:09 | XMS_ITS | Encounter Summary ---
:1940 Author Organization [facility] Address [address] [place] [address] Care Team Providers Name Role Phone Unavailable Primary Care Provider Unavailable Encounter Details Date Type Department Care Team Description 06/22/2020 Orders Only Department of Gabriel, Kimberly Malignant N eoplasm Of Oncology in L, SHRIMP PEELER, C.N.P., Pancreas Ad enocarcinoma [facility] ([facility]) (Primary Dx) [address] [facility] [address] [place] [phone] [phone] Social History Tobacco Use Types Packs/Day Years [...] Comprehensive Visit Neurology Kenji Zaldivar M.D. 200 [place] [address] documented as of this encounter Visit Diagnoses Diagnosis Malignant Neoplasm Of Pancreas Adenocarc inoma (HCC) - Primary documented in this encounter
--- OUTSIDE RECORDS SUMMARY | 2021-11-03 07:09 | XMS_ITS | Encounter Summary ---
:1940 Author Organization [facility] Address [address] [place] [address] Care Team Providers Name Role Phone Unavailable Primary Care Provider Unavailable Reason for Visit Episode Based Medications (Routine) - Authorized Specialty Diagnoses / Procedures Referred By Contact Refer red To Contact Diagnoses Malignant Neoplasm Of Pancreas Adenocarcinoma (HCC) Neutropenia Chemotherapy Induced (HCC) Kimberly Rios Rsmarleen Onc Coy HIGH C.N.PChico, M.S. [address] [facility] [address] [place] [phone] Referral ID Status Reason Start Date Expiration Date Visits V isits Requested Authorized [id number] Authorized 06/03/2020 06/03/2021 99 99 Encounter Details Date Type Department Care Team Description 06/23/2020 Infusion Department of Oncology Kimberly Rios Ma lignant Neoplasm Of in [place], LENNOX Phillips C.N.PChico, Pancreas A denocarcinoma [facility].. (HCC) (Primary Dx) [address] [place] [address] [place] [phone] Social History Tobacco Use Types Packs/Day Years [...] More than 4 times per year 06/19/2021 sikhism services? Do you belong to any clubs [...] Sign Reading Time Taken Comments Blood Pressure 137/64 06/23/2020 8:00 AM CDT Pulse 82 06/23/2020 8:00 AM CDT Temperature 36.6 ??C (97.9 ??F) 06/23/2020 8:00 AM CDT Respiratory Rate - - Oxygen Saturation - - Inhaled Oxygen Concentration - - Weight 52.5 kg (115 lb 11.9 oz) 06/23/2020 8:00 AM CDT Height - - Body Mass Index 19.05 06/22/2020 10:16 AM CDT documented in this encounter Plan of Treatment Upcoming Encounters Date Type Specialty Care Team Description 11/19/2021 Clinical Communication Admitting/Central Scheduling 11/23/2021 Comprehensive Visit Neurology Kenji Zaldivar M.D. [address] [place] [address] documented as of this encounter Visit Diagnoses Diagnosis Malignant Neoplasm Of Pancreas Adenocarc inoma (HCC) - Primary documented in this encounter Administered Medications Inactive Administered Medications - up to 3 most recent administrations Medication Order MAR Action Action Date Dose Rate Site atropine injection 0.25 mg Given 06/23/2020 11:31 AM CDT 0.25 mg 0.25 mg, intravenous, Once, On Mon06/23/20 at 1045, For 1 dose, Give prior to Irinotecan. Give subcutaneously if unable to give IV. dexamethasone in NaCl 0.9% IVPB 12 New Bag 06/23/2020 8:17 AM CDT 12 mg 200 mL/hr mg (DECADRON) 12 mg, intravenous, at 200 mL/hr, Administer over 15 Minutes, Once, On Mon06/23/20 at 0815, For 1 dose, Refrigerate fluorouraciL 3,500 mg in NaCl 0.9% 92 Given 06/23/2020 1:14 PM CDT 3,500 mg 2 mL/hr mL IVPB (ADRUCIL) 3,500 mg (rounded from 3,744 mg = 2,400 mg/m2 ? 1.56 m2 Order-specific BSA), intravenous, at 2 mL/hr, Administer over 46 Hours, over 46 hours, First dose on Mon06/23/20 at 1245, For 1 dose, Infuse at 2 mL/hr for 46 hours continuous infusion via CADD pump # [id number] fosaprepitant 150 mg in NaCl 0.9% New Bag 06/23/2020 8:52 AM C DT 150 mg 510 mL/hr IVPB (EMEND) 150 mg, intravenous, at 510 mL/hr, Administer over 30 Minutes, Once, On Mon06/23/20 at 0815, For 1 dose, Incompatible with solutions containing divalent cations (calcium, magnesium) including lactated Ringer's solution. irinotecan 220 mg in D5W 559 mL New Bag 06/23/2020 11:35 AM CD T 220 mg 373 mL/hr IVPB (CAMPTOSAR) 220 mg (rounded from 224.64 mg = 144 mg/m2 ? 1.56 m2 Order-specific BSA), intravenous, at 373 mL/hr, Administer over 90 Minutes, Once, On Mon06/23/20 at 1115, For 1 dose, May be given via y-site with leucovorin. Protect from light. leucovorin 600 mg in D5W 305 mL New Bag 06/23/2020 11:35 AM CD T 600 mg 203 mL/hr IVPB 600 mg (rounded from 624 mg = 400 mg/m2 ? 1.56 m2 Order-specific BSA), intravenous, at 203 mL/hr, Administer over 90 Minutes, Once, On Mon06/23/20 at 1115, For 1 dose, Can be given via y-site with irinotecan. NaCl 0.9 % bolus 1,000 mL Restarted 06/23/2020 11:35 AM CDT 1000 mL/hr 1,000 mL, intravenous, at 1,000 mL/hr, Administer over 1 Hours, Once, On Mon06/23/20 at 0815, For 1 dose New Bag 06/23/2020 8:17 AM CDT 1,000 mL 1000 mL/hr ondansetron in NaCl 0.9% IVPB 16 mg New Bag 06/23/2020 8:32 AM CDT 16 mg 232 mL/hr (ZOFRAN) 16 mg, intravenous, at 232 mL/hr, Administer over 15 Minutes, Once, On Mon06/23/20 at 0815, For 1 dose oxaliplatin 100 mg in D5W 295 mL New Bag 06/23/2020 9:25 AM CD T 100 mg 148 mL/hr IVPB (ELOXATIN) 100 mg (rounded from 106.08 mg = 68 mg/m2 ? 1.56 m2 Order-specific BSA), intravenous, at 148 mL/hr, Administer over 2 Hours, Once, On Mon06/23/20 at 0915, For 1 dose, Flush infusion line with dextrose 5 % in water prior to administration of any concomitant medication. sodium chloride 0.9 % injection 10 mL Given 06/23/2020 8:15 AM CDT 10 mL 10 mL, intra-catheter, As needed, line care, Starting on Mon06/23/20 at 0806, When IVAD Accessed and in Use: Flush prior to and following infusion, between multiple consecutive infusions, and prior to blood sampling. documented in this encounter
--- OUTSIDE RECORDS SUMMARY | 2021-11-03 07:09 | XMS_ITS | Encounter Summary ---
:1940 Author Organization [facility] Address [address] [place] [address] Care Team Providers Name Role Phone Unavailable Primary Care Provider Unavailable Encounter Details Date Type Department Care Team Description 06/03/2020 Hospital Encounter Department of [place], Lesion P ancreas (HCC); Laboratory Medicine Kimberly Phillips APRN, Malign ant Neoplasm Of Pancreas Adenocarcinoma (HCC); and Pathology, C.N.P., M.S. Secondary Malignant Neoplasm Lymph Node (HCC) [address] [phone] [place] [address] [place], [place] (Work) [phone] [phone] Social History Tobacco Use Types Packs/Day Years [...] Sig Dispensed Refills Start Date End Date [id number]-bind-copper-man Take by mouth. 0 05/20 kateryna (Citracal-D3 Maximum Taking 3-4 daily Plus) 325 mg-12.5 mcg -2.75 mg tablet ESTRIOL MICRONIZED, BULK, Three Times Weekly 0 MISC magnesium oxide (MAG-OX) Take 400 mg by 0 021 400 mg (241.3 mg mouth. Taking 4 magnesium) tablet tablets daily ondansetron (ZOFRAN) 8 mg Take 1 tablet (8 30 tablet 3 05/25 tabletIndications: mg total) by mouth Malignant Neoplasm Of every 8 (eight) Pancreas Adenocarcinoma hours as needed (HCC) for nausea or vomiting (unrelieved by prochlorperazine). loperamide (IMODIUM A-D) 2 2 caps by mouth at 24 capsule 3 0 06/07/2020 06/14/2020 mg capsuleIndications: onset of diarrhea, Malignant Neoplasm Of then 1 cap every 2 Pancreas Adenocarcinoma hrs until diarrhea (HCC) free for 12 hrs. May take 2 caps every 4 hrs at night. calcitRIOL (ROCALTROL) 0.5 0 1 08/13/2020 mcg capsule CALCIUM CITRATE ORAL Citracal 0 11/25/200908/26 CHOLECALCIFEROL, VITAMIN Vitamin D3 1000 0 200909/14/2020 D3, ORAL intl units oral tablet dexAMETHasone (DECADRON) 4 Take 2 tablets (8 6 tablet 3 07/27/2020 mg tabletIndications: mg total) by mouth Malignant Neoplasm Of daily. Take for 3 Pancreas Adenocarcinoma days on Days 2, 3, (HCC) and 4. levothyroxine sodium Synthroid 0 11/25/200908/26 (LEVOTHYROXINE ORAL) lisinopriL Take 20 mg by 0 04/10/2020 09/24/2021 (PRINIVIL,ZESTRIL) 20 mg mouth. tablet LORazepam (ATIVAN) 0.5 mg Take 1 tablet (0.5 30 tablet 3 09/16/2021 tabletIndications: mg total) by mouth Malignant Neoplasm Of every 8 (eight) Pancreas Adenocarcinoma hours as needed (HCC) (nausea, vomiting) for up to 30 doses. If ineffective, may repeat once after 30 minutes. 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 1 gram vaginally nightly for 7 days, then 3 nights each week. Disp. 30 g, 11 refills prochlorperazine Take 1 tablet (10 30 tablet 3 06/07/2020 0 07/13/2021 (COMPAZINE) 10 mg mg total) by mouth tabletIndications: every 6 (six) Malignant Neoplasm Of hours as needed Pancreas Adenocarcinoma for nausea or (HCC) vomiting. documented as of this encounter Plan of Treatment Upcoming Encounters Date Type Specialty Care Team Description 11/19/2021 Clinical Communication Admitting/Central Scheduling 11/23/2021 Comprehensive Visit Neurology Kenji Zaldivar M.D. [address] [place] [phone] documented as of this encounter Visit Diagnoses Diagnosis Lesion Pancreas Malignant Neoplasm Of Pancreas Adenocarc inoma (HCC) Secondary Malignant Neoplasm Lymph Node (HCC) documented in this encounter
--- OUTSIDE RECORDS SUMMARY | 2021-11-03 07:09 | XMS_ITS | Encounter Summary ---
:1940 Author Organization [facility] Address [address] [place] [address] Care Team Providers Name Role Phone Unavailable Primary Care Provider Unavailable Reason for Referral Outpatient (Routine) Specialty Diagnoses / Procedures Referred By Contact Refer red To Contact Oncology Kimberly Rios APRN, C.NJasson, [facility] M.S. [address] [place] [phone] Referral ID Status Reason Start Date Expiration Date Visits Requ ested Visits Authorized Reason for Visit Episode Based Medications (Routine) - Authorized Specialty Diagnoses / Procedures Referred By Contact Refer red To Contact Diagnoses Malignant Neoplasm Of Pancreas Adenocarcinoma (HCC) Neutropenia Chemotherapy Induced (HCC) Kimberly Rios, Rst Onc Trace Cespedes APRNNJasson, M.S. [address] [facility] [address] [place] [phone] Referral ID Status Reason Start Date Expiration Date Visits V isits Requested Authorized [id number] Authorized 06/03/2020 06/03/2021 99 99 Encounter Details Date Type Department Care Team Description 06/22/2020 Office Visit Department of Kimberly Rios eoplasm Of Oncology issa Phillips APRN, C.NJasson, Pancreas Ad enocarcinoma [place], [place] M.S. (HCC) (Primary Dx) [address] [place] [address] [place] [address] [phone] Social History Tobacco Use Types Packs/Day Years [...] Sign Reading Time Taken Comments Blood Pressure 154/79 06/22/2020 10:16 AM CDT Pulse 72 06/22/2020 10:16 AM CDT Temperature 36.3 ??C (97.3 ??F) 06/22/2020 10:16 AM CDT Respiratory Rate 14 06/22/2020 10:16 AM CDT Oxygen Saturation 98% 06/22/2020 10:16 AM CDT Inhaled Oxygen Concentration - - Weight 52.2 kg (115 lb 1.3 oz) 06/22/2020 10:16 AM CDT Height 166 cm (5' 5.35) 06/22/2020 10:16 AM CDT Body Mass Index 18.94 06/22/2020 10:16 AM CDT documented in this encounter Progress Notes Kimberly Rios APRN, C.N.P., M.S. - 06/22/2020 10:20 AM CDT SUBJECTIVE PRIMARY CARE PHYSICIAN No primary care provider on file. LOCAL ONCOLOGIST No care steamer blocker to display PRIMARY SARALAND ONCOLOGIST Nova Vivar M.B.B.S. Kimberly Rios APRN, C.N.P., M.S. CHIEF COMPLAINT / REASON FOR VISIT Azeb العراقي is a 80 y.o. 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 Cancer Staging No matching staging information was [...] periaortic, and mesenteric lymph nodes was reported ([facility] review). 3.) 05/25/2020 CA 19-9 178 [...] Ms. العراقي reports that she has been having a lot of continued retching. This was present before starting her chemotherapy. States that taking 1-2 tablets can cause her abdominal discomfort. The abdominal discomfort is treated with Tylenol. On average taking 2 per day. For approximately 2 days she needsto take antiemetic therapy after chemotherapy administration. On those days she was more fatigued. She did develop some mouth sores then started using salt water rinses which helped. Cold sensitivity lasted 1 to 1-1/2 weeks. Did have a difficult time sleeping with the steroids for the 1st 3 days. Slept quite a bit during the day. She also experience some diarrhea for which she took 2 Imodium tablets and then would go 3-4 days without a bowel movement. Would then have a normal bowel movement and thenthe next day have diarrhea again. She denies chest pain, elevated temperature lower extremity edema. The following portions of the patient's history were reviewed and updated as appropriate: family history, medical history, social history and surgical history. MEDICATIONS Current Outpatient Medications on File Prior to Visit Medication Sig Dispense Refill ??? calcitRIOL (ROCALTROL) 0.25 mcg capsule ALTERNATE TAKING 1 CAPSULE AND 2 CAPSULES PER DAY ??? calcitRIOL (ROCALTROL) 0.5 mcg capsule ??? CALCIUM CITRATE ORAL Citracal ??? kzpiwim-T0-yyft-copper-marlo (Citracal-D3 Maximum Plus) 325 mg-12.5 mcg - 2.75 mg tablet Take bymouth. ??? CHOLECALCIFEROL, VITAMIN D3, ORAL Vitamin D3 1000 intl units oral tablet ??? dexAMETHasone (DECADRON) 4 mg tablet Take 2 tablets (8 mg total) by mouth daily. Take for 3 dayson Days 2, 3, and 4. 6 tablet 3 ??? levothyroxine sodium (LEVOTHYROXINE ORAL) Synthroid ??? lidocaine-prilocaine (EMLA) 2.5-2.5 % cream Apply 1 application topically as needed for pain (30minutes prior to port access). 30 g 0 ??? lisinopriL (PRINIVIL,ZESTRIL) 20 mg tablet Take 20 mg by mouth. ??? LORazepam (ATIVAN) 0.5 mg tablet Take [...] on file prior to visit. VITALS Vitals: 06/22/20 1016 BP: 154/79 Pulse: 72 Resp: 14 Temp: 36.3 ??C SpO2: 98% Rate your distress: 3 REVIEW OF SYSTEMS Constitutional: Positive for fatigue. Neurological: Positive for numbness or shooting pain in hands, arms, legs, or feet. All other systems reviewed and are negative. OBJECTIVE BP 154/79 (BP Location: Right arm, Patient Position: Sitting, Cuff Size: Regular) Pulse 72 Temp 36.3 ??C (Tympanic) Resp 14 Ht 166 cm Wt 52.2 kg SpO2 98% BMI 18.94 kg/m?? PHYSICAL EXAM General: Well appearing 80 [...] her past medical records and laboratory tests. Her white count is quite a bit lower than what it had been before starting therapy. In alsodue to some of her other side effects of her past treatment I am going to reduce both the oxaliplatin and Irinotecan by 20%. We also discussed adding on Neulasta as well as postponing therapy. I think we will start out with just the dose modifications 1st. In regards to her diarrhea we talked about holding off after the 1st loose stool to see if she has another loose bowel movement. If she has a 2nd loose stool I would then use 1 Imodium instead of 2. Hopefully we can avoid the constipation/diarrhea. In regards to her antiemetic therapy we again reviewed the names of the medications and the indications for them. Due the nights that she is not able to I think could be a good idea for her to use the lorazepam on those days to help with the nausea. In regards to her retching I am going to discuss with several my colleagues. I am not sure if a motility products such as Reglan would be a good idea. She is in full agreement with the plan. Denies any further questions or concerns. Has our telephone number to contact us should they have any further questions or concerns. PATIENT EDUCATION Ready to learn, no apparent learning barriers were identified; learning preferences include listening. Explained diagnosis and treatment plan; patient expressed understanding of the content. ADMINISTRATIVE BILLING I personally spent 30 minutes in care of the patient today. Time includes both non face to face and face to face patient care. documented in this encounter Plan of Treatment Upcoming Encounters Date Type Specialty Care Team Description 11/19/2021 Clinical Communication Admitting/Central Scheduling 11/23/2021 Comprehensive Visit Neurology Kenji Zaldivar M.D. [address] [place] [address] Scheduled Referrals Name Type Priority Associated Diagnoses Order S [facility] Oncology office Outpatient Referral Routine Malignant Neoplasm Of Expected: visit (clinic) Pancreas Adenocarcinoma , (HCC) Expires: 07/20/2021 documented as of this encounter Procedures Procedure Name Priority Date/Time Associated Diagnosis Comme nts MAGNESIUM, S Routine 06/22/2020 9:51 AM Malignant Neoplasm Of Results for this CDT Pancreas Adenocarcinoma proc edure are in (HCC) the results section. documented in this encounter Results Bilirubin, Direct (07/20/2020 1:21 PM CDT) athologist Signature Bilirubin, <0.2 0.0 - 0.3 07/20/2020 DTL Direct, S mg/dL 2:21 PM CDT Specimen Anatomical Collection Method Collection Time Receive d Time (Source) Location / / Volume Laterality Blood (Blood, 07/20/2020 1:21 PM 07/21/19 1:46 Venous) CDT PM CDT Kimberly Rios APRN C.N.P., M.S. LAB BLOOD ADD-ON Performing Organization Address City/State/ZIP Code Phon e Number [facility] - [address] [place], [place] [phone] [facility] [place] [address] Laboratories-[facility] [address] (ABNORMAL) Comprehensive Metabolic Panel (07/20/2020 1:21 [...] 07/20/2020 DTL Black/ mL/min/BSA 2:21 PM CDT Kosovan Comment: ----ADDITIONAL INFORMATION---- Estimated GFR calculated using [...] 07/21/19 1:46 Venous) CDT PM CDT Kimberly Rios APRN C.N.P., M.S. LAB BLOOD ADD-ON Performing Organization Address City/State/ZIP Code Phon e Number [facility] - [address] [place], [place] [address] [facility] [place] [address] [facility] [address] (ABNORMAL) CBC with Differential, Blood (07/20/2020 1:21 PM CDT) [facility] Method Time Signature Hemoglobin 10.0 (L) [...] 07/21/19 1:46 Venous) CDT PM CDT Kimberly Rios APRN C.N.P., M.S. LAB BLOOD ADD-ON Performing Organization Address City/State/ZIP Code Phon e Number [facility] - [address] [place], [place] [address] [facility] [place] [address] [facility] [address] Magnesium (06/22/2020 9:51 AM CDT) P athologist Signature Magnesium, S 1.8 1.7 - 2.3 06/22/2020 DTL mg/dL 12:58 PM CDT Specimen Anatomical Collection Method Collection Time Receive d Time (Source) Location / / Volume Laterality Blood (Blood, 06/22/2020 9:51 AM 06/23/19 21 Venous) CDT 12:19 PM CDT Trace Rudolph APRNN.P., M.S. LAB BLOOD ADD-ON Performing Organization Address City/State/ZIP Code Phon e Number [facility] - [address] [place] [phone] [facility] [place] [address] Laboratories-[address] documented in this encounter Visit Diagnoses Diagnosis Malignant Neoplasm Of Pancreas Adenocarc inoma (HCC) - Primary documented in this encounter
--- OUTSIDE RECORDS SUMMARY | 2021-11-03 07:09 | XMS_ITS | Encounter Summary ---
:1940 Author Organization [facility] Address [address] [place] [address] Care Team Providers Name Role Phone Unavailable Primary Care Provider Unavailable Encounter Details Date Type Department Care Team Description 06/04/2020 Education Department of Patient Kimberly Rios APRN, C.N.P., M.S. [address] [place] [address] Malignant Neoplasm Of Education in Krissy Johnson M.Ed. Pancreas Adenocarcinoma [place], [place] (HCC) [address] [place] [address] Social History Tobacco Use Types Packs/Day Years [...] Visit Neurology Kenji Zaldivar M.D. [address] [place] [address] documented as of this encounter Visit Diagnoses Diagnosis Malignant Neoplasm Of Pancreas Adenocarc inoma (HCC) documented in this encounter
--- OUTSIDE RECORDS SUMMARY | 2021-11-03 07:09 | XMS_ITS | Encounter Summary ---
:1940 Author Organization [facility] Address [address] [place] [address] Care Team Providers Name Role Phone Unavailable Primary Care Provider Unavailable Reason for Visit Reason Comments Add Blood Test Encounter Details Date Type Department Care Team Description 06/17/2020 Clinical Communication Department of Meryl Morales Blood Test Oncology in Shilo Cespedes [place], [facility] [address] [place], [place] [address] [facility] [phone] [place] [phone] Social History Tobacco Use Types Packs/Day Years [...] or relatives? How often do you attend orthodox or More than 4 times per year 06/19/2021 oriental orthodox services? Do you belong to any clubs or Yes 06/19/2021 organizations such as orthodox groups, unions, fraternal or athletic groups, [...] this encounter Miscellaneous Notes Telephone Encounter - Fabio Og - 06/18/2020 1:07 PM CDT Correct, nothing new to add Thank you, Fabio CHOPRA ONC [facility] Aa POD 1 Telephone Encounter - Fabio Og - 06/18/2020 9:56 AM CDT Received a return call for JV gardiner said yes, those need to be includes as well. Thank you, Fabio [facility] POD 1 Telephone Encounter - Traci Rodriguez - 06/18/2020 8:30 AM CDT I returned call back to Erin and had to leave a message. I left message that we we are doing a CMP that includes creatinine w/GFR and BUN. Is there anything else they need? This is for 06/22. Traci [facility] Pod 1 documented in this encounter Plan of Treatment Upcoming Encounters Date Type Specialty Care Team Description 11/19/2021 Clinical Communication Admitting/Central Scheduling 11/23/2021 Comprehensive Visit Neurology Kenji Zaldivar M.D. [address] [place] [address] documented as of this encounter Visit Diagnoses Not on filedocumented in this encounter
--- OUTSIDE RECORDS SUMMARY | 2021-11-03 07:09 | XMS_ITS | Encounter Summary ---
:1940 Author Organization [facility] Address [address] [place] [address] Care Team Providers Name Role Phone Unavailable Primary Care Provider Unavailable Reason for Visit Reason Comments Intake Assessment Encounter Details Date Type Department Care Team Description 06/17/2020 Clinical Communication Department of Maren Rios [facility] Oncology in [facility] C.N.P., M.S. [place] 200 [address] [facility] [address] [place] [phone] Social History Tobacco Use Types Packs/Day Years [...] Notes Telephone Encounter - Deb Pinto - 06/17/2020 1:32 PM CDT Intake screening completed. documented in this encounter Plan of Treatment Upcoming Encounters Date Type Specialty Care Team Description 11/19/2021 Clinical Communication Admitting/Central Scheduling 11/23/2021 Comprehensive Visit Neurology Kenji Zaldivar M.D. 200 [place] [address] documented as of this encounter Visit Diagnoses Not on filedocumented in this encounter
--- OUTSIDE RECORDS SUMMARY | 2021-11-03 07:09 | XMS_ITS | Encounter Summary ---
:1940 Author Organization [facility] Address [address] [place] [address] Care Team Providers Name Role Phone Unavailable Primary Care Provider Unavailable Reason for Visit Outpatient (Routine) - Closed Specialty Diagnoses / Procedures Referred By Contact Refer red To Contact Oncology Kimberly Rios APRN, [facility]N.P., [facility] [address] [place] [phone] Referral ID Status Reason Start Date Expiration Date Visits Requ ested Visits Authorized [id number] Closed 06/03/2020 06/03/2021 1 1 Encounter Details Date Type Department Care Team Description 06/03/2020 Nurse Only Department of Oncology in Kimberly Chino APRN, C.N.P., M.S. [address] [place] [phone] [place], [place] Tonya Sinclair R.N., O.C.N. [address] [place] [phone] Social History Tobacco Use Types Packs/Day [...] 06/19/2021 organizations such as sabianist groups, unions, fraNexopia or athletic groups, or school groups? How [...] documented as of this encounter Progress Notes Tonya Sinclair R.N., O.C.N. - 06/03/2020 11:00 AM CST Met with the patient and ,Yung to review port placement. Patient watched the port videos, written information given regarding port placement to patient, pamphlets given on IV sedation, and central venous catheter risks for infection. Questions answered. Patient and Yung aware of when to contact health care team and verbalized understanding of above. Reviewed with patient to fast Tonya Sinclair R.N., O.C.N. [employer] documented in this encounter Plan of Treatment Upcoming Encounters Date Type Specialty Care Team Description 11/19/2021 Clinical Communication Admitting/Central Scheduling 11/23/2021 Comprehensive Visit Neurology Kenji Zaldivar M.D. [address] [place] [address] documented as of this encounter Visit Diagnoses Diagnosis Malignant Neoplasm Of Pancreas Adenocarc inoma (HCC) - Primary documented in this encounter
--- OUTSIDE RECORDS SUMMARY | 2021-11-03 07:09 | XMS_ITS | Encounter Summary ---
:1940 Author Organization [facility] Address [address] [place] [address] Care Team Providers Name Role Phone Unavailable Primary Care Provider Unavailable Reason for Visit Reason Comments Sx - vomiting Encounter Details Date Type Department Care Team Description 06/19/2020 Clinical Communication Department of Oncology Jose Carlos Hudson, Sx - vomiting in [facility].N., O.C.N. [place] [address] [address] [facility] [address] [place] [phone] Social History Tobacco Use Types Packs/Day Years [...] this encounter Miscellaneous Notes Telephone Encounter - Alyssa Bryant R.N., O.C.N. - 06/19/2020 2:05 PM CDT SUBJECTIVE Malignant Neoplasm of the Pancrease CHIEF COMPLAINT / REASON FOR CALL Sx - vomiting Information Discussed I called and talked with Mrs. العراقي. She reports that she has been having thick saliva that has been filling up her mouth today. When she swallows it, she sometimes vomits. Mrs. العراقي reports she is nauseous and has a stomach ache and has vomited 3 times today. She has compazine at home for nausea, but reports she has not taken any today because she wasn't sure if it would help. Discussed that she should take her compazine for her nausea and see if it helps. Reviewed that she can take one tablet every 6 hours for her nausea. Discussed that if her nausea gets worse over the weekend or her vomiting continues, she should be seen and evaluated by the local emergency room. Mrs. العراقي agreed to this plan. She has an appointment with us on Monday, 06/22. Mrs. العراقي is wondering if these are side effect from her chemo. Mrs. العراقي also asked about her calcium. She reports her primary care provider has been checking her calcium level weekly because it has been low. Mrs. العراقي said she started with a calcium of 8.2 and was most recently 5.1. She is getting her calcium checked again on Monday. She is wondering if her low calcium is caused by the chemotherapy she is on. Discussed that I would review with Kimberly Rios APRN and call Mrs. العراقي back if Kimberly had furtherrecommendations on her vomiting or calcium. Mrs. العراقي agreed to this plan. PLAN I will pass this message onto Kimberly Rios APRN for her recommendations Disposition/Recommendation: notified provider and awaiting recommendations Information/Education: patient/caller able to teach back Caller agreeable to plan of care: yes The following references were used: nursing clinical judgement Telephone Encounter - Traci Rodriguez - 06/19/2020 1:05 PM CDT Do we have a valid auth to speak with caller? yes Reason for call: Patient has had vomiting 3 times today. She has vomited before but never this much in one day. She is wondering if the nausea medication should be taken and will help with this? She did take some this morning but didn't want to continue taking if she didn't think it would help. Please call patient back today to discuss. Thank you, Traci RST ONC [facility] MED Aa POD 1 documented in this encounter Plan of Treatment Upcoming Encounters Date Type Specialty Care Team Description 11/19/2021 Clinical Communication Admitting/Central Scheduling 11/23/2021 Comprehensive Visit Neurology Kenji Zaldivar M.D. 200 [place] [address] documented as of this encounter Visit Diagnoses Not on filedocumented in this encounter
--- OUTSIDE RECORDS SUMMARY | 2021-11-03 07:09 | XMS_ITS | Encounter Summary ---
:1940 Author Organization [facility] Address [address] [place] [address] Care Team Providers Name Role Phone Unavailable Primary Care Provider Unavailable Reason for Visit Reason Comments Rx Reimbursement EMLA cream Encounter Details Date Type Department Care Team Description 06/16/2020 Clinical Communication Department of Jose Carlos Hudson [facility] in S, R.N., (EMLA cream) [facility] [address] [facility] [phone] [place] [phone] [place] [address] Social History Tobacco Use Types Packs/Day Years [...] or relatives? How often do you attend congregation or More than 4 times per year 06/19/2021 sabianist services? Do you belong to any clubs or Yes 06/19/2021 organizations such as congregation groups, unions, fraternal or athletic groups, or [...] this encounter Miscellaneous Notes Telephone Encounter - Loan Cruz - 06/16/2020 2:02 PM CDT Do we have a valid auth to speak with caller? Yung, spouse Reason for call: Yung calls stating that they paid out of pocket for patient's Emla cream as they needed it right away and there wasn't time to do a prior auth on it. He is wanting to know how he can get reimbursed for this? He states that he tried to speak with someone from the insurance but they were hard to understand but basically told him that he should reach out to us to get information to send to insurance for this. I am unsure what he's talking about and I'm guessing that there is some sortof form that needs to be filled out. I asked that he reach out to insurance again. Yung states thathe is going to take the information that he was given from the pharmacy, put together a letter, and send it on to the insurance company and go from there. He states that he will call us again if he needs anything from us to continue on with this. Thank you, Renetta RST ONC [address] LIGHT [facility]ICER POD 1 documented in this encounter Plan of Treatment Upcoming Encounters Date Type Specialty Care Team Description 11/19/2021 Clinical Communication Admitting/Central Scheduling 11/23/2021 Comprehensive Visit Neurology Kenji Zaldivar M.D. [address] [place] [address] documented as of this encounter Visit Diagnoses Not on filedocumented in this encounter
--- OUTSIDE RECORDS SUMMARY | 2021-11-03 07:09 | XMS_ITS | Encounter Summary ---
:1940 Author Organization [facility] Address [address] [place] [address] Care Team Providers Name Role Phone Unavailable Primary Care Provider Unavailable Reason for Visit Episode Based Medications (Routine) - Authorized Specialty Diagnoses / Procedures Referred By Contact Refer red To Contact Diagnoses Malignant Neoplasm Of Pancreas Adenocarcinoma (HCC) Neutropenia Chemotherapy Induced (HCC) Kimberly Rios Rsmarleen Onc Coy HIGH C.N.[place], M.S. [address] [facility] [address] [place] [address] [phone] Referral ID Status Reason Start Date Expiration Date Visits V isits Requested Authorized [id number] Authorized 06/03/2020 06/03/2021 99 99 Encounter Details Date Type Department Care Team Description 06/08/2020 Infusion Department of Oncology Kimberly Rios Ma lignant Neoplasm Of in [place], Alan, LENNOX C.N.PChico, Pancreas A denocarcinoma [facility].. 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 [address] [place] [address] documented as of this encounter Visit Diagnoses Diagnosis Malignant Neoplasm Of Pancreas Adenocarc inoma (HCC) - Primary documented in this encounter Administered Medications Inactive Administered Medications - up to 3 most recent administrations Medication Order MAR Action Action Date Dose Rate Site atropine injection 0.25 mg Given 06/08/2020 2:20 PM CDT 0.25 mg 0.25 mg, intravenous, Once, On Mon06/08/20 at 1315, For 1 dose, Give prior to irinotecan. Give subcutaneously if unable to give IV. atropine injection 0.25 mg Given 06/08/2020 3:30 PM CDT 0.25 mg 0.25 mg, intravenous, As needed, at onset of abdominal cramping/diarrhea., Starting on Mon06/08/20 at 1521, For 2 doses, May repeat 0.25 mg IV in 15 minutes if no response. Give subcutaneously if unable to give IV. dexamethasone in NaCl 0.9% IVPB 12 New Bag 06/08/2020 11:01 AM CDT 12 mg 200 mL/hr mg (DECADRON) 12 mg, intravenous, at 200 mL/hr, Administer over 15 Minutes, Once, On Mon06/08/20 at 1015, For 1 dose, Refrigerate fluorouraciL 3,500 mg in NaCl 0.9% 92 Given 06/08/2020 4:02 PM CDT 3,500 mg 2 mL/hr mL IVPB (ADRUCIL) 3,500 mg (rounded from 3,744 mg = 2,400 mg/m2 ? 1.56 m2 Order-specific BSA), intravenous, at 2 mL/hr, Administer over 46 Hours, over 46 hours, First dose on Mon06/08/20 at 1445, For 1 dose, Infuse at 2 mL/hr for 46 hours continuous infusion via CADD pump #[id number] fosaprepitant 150 mg in NaCl 0.9% New Bag 06/08/2020 11:41 AM CDT 150 mg 510 mL/hr IVPB (EMEND) 150 mg, intravenous, at 510 mL/hr, Administer over 30 Minutes, Once, On Mon06/08/20 at 1015, For 1 dose, Incompatible with solutions containing divalent cations (calcium, magnesium) including lactated Ringer's solution. irinotecan 280 mg in D5W 562 mL New Bag 06/08/2020 2:24 PM CDT 280 mg 375 mL/hr IVPB (CAMPTOSAR) 280 mg (rounded from 280.8 mg = 180 mg/m2 ? 1.56 m2 Order-specific BSA), intravenous, at 375 mL/hr, Administer over 90 Minutes, Once, On Mon06/08/20 at 1315, For 1 dose, May be given via y-site with leucovorin. Protect from light. leucovorin 600 mg in D5W 305 mL New Bag 06/08/2020 2:24 PM CDT 600 mg 203 mL/hr IVPB 600 mg (rounded from 624 mg = 400 mg/m2 ? 1.56 m2 Order-specific BSA), intravenous, at 203 mL/hr, Administer over 90 Minutes, Once, On Mon06/08/20 at 1315, For 1 dose, Can be given via y-site with irinotecan. ondansetron in NaCl 0.9% IVPB 16 mg New Bag 06/08/2020 11:20 A M CDT 16 mg 232 mL/hr (ZOFRAN) 16 mg, intravenous, at 232 mL/hr, Administer over 15 Minutes, Once, On Mon06/08/20 at 1015, For 1 dose oxaliplatin 130 mg in D5W 301 mL New Bag 06/08/2020 12:17 PM C DT 130 mg 151 mL/hr IVPB (ELOXATIN) 130 mg (rounded from 132.6 mg = 85 mg/m2 ? 1.56 m2 Order-specific BSA), intravenous, at 151 mL/hr, Administer over 2 Hours, Once, On Mon06/08/20 at 1115, For 1 dose, Flush infusion line with dextrose 5 % in water prior to administration of any concomitant medication. sodium chloride 0.9 % injection 10 mL Given 06/08/2020 10:46 AM CDT 10 mL 10 mL, intra-catheter, As needed, line care, Starting on Mon06/08/20 at 1011, When IVAD Accessed and in Use: Flush prior to and following infusion, between multiple consecutive infusions, and prior to blood sampling. documented in this encounter
--- OUTSIDE RECORDS SUMMARY | 2021-11-03 07:09 | XMS_ITS | Encounter Summary ---
:1940 Author Organization [facility] Address [address] [place] [address] Care Team Providers Name Role Phone Unavailable Primary Care Provider Unavailable Reason for Visit Outpatient (Routine) - Closed Specialty Diagnoses / Procedures Referred By Contact Refer red To Contact Diagnoses Malignant Neoplasm Of Pancreas Adenocarcinoma (HCC) Kimberly Rios APRN, [facility] Procedures ONC Pump Disconnect C.N.P., M.S. 200 [place] [address] Referral ID Status Reason Start Date Expiration Date Visits Requ ested Visits Authorized [id number] Closed 06/23/2020 06/23/2021 1 1 Encounter Details Date Type Department Care Team Description 06/25/2020 Infusion Department of Infusion Kimberly Rios Ma lignant Neoplasm Of Therapy in [facility], LENNOX, C.N.P., Sigala creas Adenocarcinoma [facility]. (HCC) (Primary Dx) [address] [place] [phone] Social History Tobacco Use [...] 06/19/2021 organizations such as gnosticism groups, unions, fraLift or athletic groups, or school groups? How [...] Sign Reading Time Taken Comments Blood Pressure 152/56 06/25/2020 11:39 AM CDT Pulse 59 06/25/2020 11:39 AM CDT Temperature 36.6 ??C (97.9 ??F) 06/25/2020 11:39 AM CDT Respiratory Rate - - Oxygen Saturation - - Inhaled Oxygen Concentration - - Weight - - Height - - Body Mass Index - - documented in this encounter Plan of Treatment Upcoming Encounters Date Type Specialty Care Team Description 11/19/2021 Clinical Communication Admitting/Central Scheduling 11/23/2021 Comprehensive Visit Neurology Kenji Zaldivar M.D. 200 [place] [phone] documented as of this encounter Visit Diagnoses Diagnosis Malignant Neoplasm Of Pancreas Adenocarc inoma (HCC) - Primary documented in this encounter Administered Medications Inactive Administered Medications - up to 3 most recent administrations Medication Order MAR Action Action Date Dose Rate Site heparin flush 500 Units Given 06/25/2020 11:39 AM CDT 500 Units 500 Units, intra-catheter, As needed, line care, Starting on Laila 06/25/20 at 1127, When no infusion to maintain patency: For IVAD accessed, not in use, and/or prior to hospital discharge, flush every 7 days after 0.9% preservative-free NaCL flush. For IVAD NOT accessed or used, flush every 4 weeks after 0.9% preservative-free NaCL flush. sodium chloride 0.9 % injection 20 mL Given 06/25/2020 11:38 AM CDT 20 mL 20 mL, intra-catheter, As needed, line care, Starting on Laila 06/25/20 at 1127, When IVAD Accessed and in Use: Flush post blood transfusion or post blood sampling. documented in this encounter
--- OUTSIDE RECORDS SUMMARY | 2021-11-03 07:09 | XMS_ITS | Encounter Summary ---
:1940 Author Organization [facility] Address [address] [place] [address] Care Team Providers Name Role Phone Unavailable Primary Care Provider Unavailable Reason for Visit Reason Comments Pump disconnect Encounter Details Date Type Department Care Team Description 06/08/2020 Clinical Communication Department of No Contact, Pump disconnect Infusion Therapy in [place], [place] [address] [place] [address] Social History Tobacco Use Types [...] this encounter Miscellaneous Notes Telephone Encounter - Dayan Hancock - 06/08/2020 2:01 PM CDT Patient is scheduled Telephone Encounter - Iris London - 06/08/2020 12:02 PM CDT Reason for Communication: Shanna calling from [facility], requesting assistance with scheduling patient for a ONC Pump Disconnect in [place]. Scheduling not available at time of call. Shanna asking that this appt please be scheduled on 06-10-2020 at 2:30pm if possible Current Can Nursing/Provider leave a detailed message?: No Did the patient refuse triage through Nurse line? (for symptom based concerns): No. NL does not apply Action Needed: Please schedule patient for 2:30pm on 06-10-2020 if appropriate. Shanna stating she may also be reached through Skype if necessary (full name- Shanna Perkins) Name of Medication (if relevant): documented in this encounter Plan of Treatment Upcoming Encounters Date Type Specialty Care Team Description 11/19/2021 Clinical Communication Admitting/Central Scheduling 11/23/2021 Comprehensive Visit Neurology Kenji Zaldivar M.D. 200 [place] [address] documented as of this encounter Visit Diagnoses Not on filedocumented in this encounter
--- OUTSIDE RECORDS SUMMARY | 2021-11-03 07:09 | XMS_ITS | Encounter Summary ---
:1940 Author Organization [facility] Address [address] [place] [address] Care Team Providers Name Role Phone Unavailable Primary Care Provider Unavailable Encounter Details Date Type Department Care Team Description 06/18/2020 Orders Only [facility] Angel Earl Pcp [address] [place] [phone] Social History Tobacco Use Types Packs/Day Years [...] 11/23/2021 Comprehensive Visit Neurology Kenji Zaldivar M.D. [address] [place] [phone] documented as of this encounter Visit Diagnoses Not on filedocumented in this encounter
--- OUTSIDE RECORDS SUMMARY | 2021-11-03 07:09 | XMS_ITS | Encounter Summary ---
:1940 Author Organization [facility] Address [address] [place] [address] Care Team Providers Name Role Phone Unavailable Primary Care Provider Unavailable Encounter Details Date Type Department Care Team Description 06/15/2020 Orders Only [facility] - Kimberly Ruiz, [address] [facility] [address] [facility] HOUSE SERVANT, C.NJasson, [place] [address] [address] [facility] [phone] [place] [phone] (Wo rk) Social History Tobacco [...] Comprehensive Visit Neurology Kenji Zaldivar M.D. 200 [place] [address] documented as of this encounter Visit Diagnoses Not on filedocumented in this encounter
--- OUTSIDE RECORDS SUMMARY | 2021-11-03 07:09 | XMS_ITS | Encounter Summary ---
:1940 Author Organization [facility] Address [address] [place] [address] Care Team Providers Name Role Phone Unavailable Primary Care Provider Unavailable Encounter Details Date Type Department Care Team Description 06/10/2020 Orders Only Department of Oncology in Tiera Augustine M.D. [place], [place] [address] [facility] [address] [place] [phone] (Wo rk) Social History Tobacco Use Types [...] More than 4 times per year 06/19/2021 anglican services? Do you belong to any clubs or Yes 06/19/2021 organizations such as uatsdin groups, unions, fraternal or athletic groups, or [...] Visit Neurology Kenji Zaldivar M.D. [address] [place] [address] documented as of this encounter Visit Diagnoses Not on filedocumented in this encounter
--- OUTSIDE RECORDS SUMMARY | 2021-11-03 07:09 | XMS_ITS | Encounter Summary ---
:[address] [facility] Address [address] [place] [address] Care Team Providers Name Role Phone Unavailable Primary Care Provider Unavailable Reason for Referral Medication Prior Authorization (Routine) - Authorized Specialty Diagnoses / Procedures Referred By Contact Refer red To Contact Kimberly Rios APRN, C.N.P., M.S. [address] [place] [phone] Referral ID Status Reason Start Date Expiration Date Visits V isits Requested Authorized [id number] Authorized 06/08/2020 09/15/2020 1 1 Reason for Visit Reason Comments Med Refill Encounter Details Date Type Department Care Team Description 06/08/2020 Refill Department of Oncology in Kimberly Rios APRN, Med Refill [place], [place] CSusanna, M.S. [address] [place] [address] [place] [phone] [place] [address] [phone] (Wo rk) Social History Tobacco Use Types [...] Do you belong to any clubs or [place] 06/19/2021 organizations such as yazdanism groups, unions, fraHistogen or athletic groups, or school groups? How [...] Visit Neurology Kenji Zaldivar M.D. [address] [place] [address] documented as of this encounter Visit Diagnoses Not on filedocumented in this encounter
--- OUTSIDE RECORDS SUMMARY | 2021-11-03 07:09 | XMS_ITS | Encounter Summary ---
:1940 Author Organization [facility] Address [address] [place] [address] Care Team Providers Name Role Phone Unavailable Primary Care Provider Unavailable Reason for Visit Reason Comments 06/08 NT Encounter Details Date Type Department Care Team Description 06/03/2020 Clinical Communication Department of Oncology Migdalia Jacobson 06/08 NT in [place], [place] (Work) [address] [place] [address] Social History Tobacco Use Types Packs/Day Years [...] place to sleep or slept in a snf (including now)? Sex Assigned at Date Recorded Female 07/03/2017 2:07 PM CDT documented as of this encounter Plan of Treatment Upcoming Encounters Date Type Specialty Care Team Description 11/19/2021 Clinical Communication Admitting/Central Scheduling 11/23/2021 Comprehensive Visit Neurology Kenji Zaldivar M.D. [address] [place] [address] documented as of this encounter Visit Diagnoses Not on filedocumented in this encounter
--- OUTSIDE RECORDS SUMMARY | 2021-11-03 07:09 | XMS_ITS | Encounter Summary ---
:1940 Author Organization [facility] Address [address] [place] [address] Care Team Providers Name Role Phone Unavailable Primary Care Provider Unavailable Encounter Details Date Type Department Care Team Description 06/17/2020 Orders Only Department of Oncology in James Napoles, [place], [place] R.N., O.C.N. [address] [facility] [address] [place] [phone] [place], [place] [phone] Social History Tobacco Use Types Packs/Day Years [...] Visit Neurology Kenji Zaldivar M.D. [address] [place] [address] documented as of this encounter Visit Diagnoses Not on filedocumented in this encounter
--- OUTSIDE RECORDS SUMMARY | 2021-11-03 07:09 | XMS_ITS | Encounter Summary ---
:1940 Author Organization [facility] Address [address] [place] [address] Care Team Providers Name Role Phone Unavailable Primary Care Provider Unavailable Reason for Referral Outpatient (Routine) - Closed Specialty Diagnoses / Procedures Referred By Contact Refer red To Contact Oncology Kimberly [facility]ios [facility] [address] [place] [phone] Referral ID Status Reason Start Date Expiration Date Visits Requ ested Visits Authorized [id number] Closed 06/03/2020 06/03/2021 1 1 Scheduling Instructions Port education SHADER Encounter Details Date Type Department Care Team Description 06/03/2020 Clinical Communication Department of Oncology Tonya Sinclair in [facility] Harleen, RKendall, [facility] [phone] [place] [address] (Work) [place] [phone] Social History Tobacco Use Types Packs/Day Years [...] Visit Neurology Kenji Zaldivar M.D. [address] [place] [address] Scheduled Referrals Name Type Priority Associated Diagnoses Order S patience Oncology nurse Outpatient Referral Routine Expect ed: visit (clinic) 06/03/2020, Expires: 06/04/2023 documented as of this encounter Visit Diagnoses Not on filedocumented in this encounter
--- OUTSIDE RECORDS SUMMARY | 2021-11-03 07:09 | XMS_ITS | Encounter Summary ---
:1940 Author Organization [facility] Address [address] [place] [address] Care Team Providers Name Role Phone Unavailable Primary Care Provider Unavailable Reason for Referral Outpatient (Routine) - Closed Specialty Diagnoses / Procedures Referred By Contact Refer red To Contact Radiology Diagnoses Lesion Pancreas Kimberly Rios APRN, [facility] Procedures IR Implanted Vascular Access Device Placement C.N.P., M.S. [address] [place] [phone] Referral ID Status Reason Start Date Expiration Date Visits Requ ested Visits Authorized [id number] Closed 06/03/2020 06/03/2021 1 1 OR COLDFUSION DEVELOPER Reason for Visit Outpatient (Routine) - Closed Specialty Diagnoses / Procedures Referred By Contact Refer red To Contact Radiology Diagnoses Lesion Pancreas Kimberly Rios APRN, [facility] Procedures IR Implanted Vascular Access Device Placement C.N.P., M.S. [address] [place] [address] [phone] Referral ID Status Reason Start Date Expiration Date Visits Requ ested Visits Authorized [id number] Closed 06/03/2020 06/03/2021 1 1 Encounter Details Date Type Department Care Team Description 06/05/2020 Hospital Encounter Department of Chris Rios APRN, C.N.P., M.S. [address] [place] [phone] Lesion Pancreas Radiology in Akhil Cantor M.D. [address] [place] [address] ([facility]) [place], [place] [address] [place] [phone] Social History Tobacco Use Types Packs/Day Years [...] Sign Reading Time Taken Comments Blood Pressure 146/68 06/05/2020 10:30 AM SENIOR COLDFUSION DEVELOPER Pulse 69 06/05/2020 10:30 AM SENIOR COLDFUSION DEVELOPER Temperature 36.9 ??C (98.4 ??F) 06/05/2020 9:04 AM SENIOR COLDFUSION DEVELOPER Respiratory Rate 16 06/05/2020 10:30 AM SENIOR COLDFUSION DEVELOPER Oxygen Saturation 98% 06/05/2020 10:30 AM SENIOR COLDFUSION DEVELOPER Inhaled Oxygen Concentration - - Weight 52.6 kg (116 lb) 06/05/2020 9:04 AM SENIOR COLDFUSION DEVELOPER Height - - Body Mass Index 19.12 05/25/2020 12:52 PM SENIOR COLDFUSION DEVELOPER documented in this encounter Medications at Time of Discharge Medication Sig Dispensed Refills Start Date End Date [id number] Take by mouth. 0 05/20 kateryna (Citracal-D3 [...] every 4 hrs at night. calcitRIOL (ROCALTROL) Patient is taking 0 202009/02/2020 0.25 mcg capsule 5 pills per day. calcitRIOL (ROCALTROL) 0.5 0 08/13/2020 mcg capsule CALCIUM CITRATE ORAL Citracal 0 11/25/200908/26 CHOLECALCIFEROL, VITAMIN Vitamin D3 1000 0 200909/14/2020 D3, ORAL intl units oral tablet dexAMETHasone (DECADRON) 4 Take 2 tablets (8 6 tablet 3 07/27/2020 mg tabletIndications: mg total) by mouth Malignant Neoplasm Of daily. Take for 3 Pancreas Adenocarcinoma days on Days 2, 3, (HCC) and 4. levothyroxine sodium Synthroid 0 11/25/2009 06/2 03/2020 (LEVOTHYROXINE ORAL) lisinopriL Take 20 mg by [...] (HCC) vomiting. documented as of this encounter Procedure Notes Akhil Cantor M.D. - 06/05/2020 10:39 AM CST PATIENT DISPOSITION Discharge to home. POST-PROCEDURE DIAGNOSIS Need for port PROCEDURE PERFORMED AND DESCRIPTION 8F Slim Powerport with tip near the SVC/RA junction. Ready for use. PROCEDURE DETAILS See Radiology Report SPECIMENS REMOVED None FINDINGS See report PRIMARY PROCEDURALIST Sakshi ASSISTANTS none COMPLICATIONS None. DRAINS None. IMPLANTS Reference implant document. ANESTHESIA Moderate Sedation. FLUIDS none ESTIMATED BLOOD LOSS <5ml CURRENT MEDICATIONS No Medication Changes FOLLOW-UP LETTER None. MAY RETURN TO WORK Not applicable PATIENT INSTRUCTIONS No return appointment OR COLDFUSION DEVELOPER documented in this encounter Plan of Treatment Upcoming Encounters Date Type Specialty Care Team Description 11/19/2021 Clinical Communication Admitting/Central Scheduling 11/23/2021 Comprehensive Visit Neurology Kenji Zaldivar M.D. [address] [place] [phone] documented as of this encounter Procedures Procedure Name Priority Date/Time Associated Comments Diagnosis IR IMPLANTED RAD - Routine 06/05/2020 10:35 Lesion Pancreas Results for this VASCULAR ACCESS (most inpatients AM SENIOR COLDFUSION DEVELOPER (HCC) procedur e are in DEVICE PLACEMENT and all the results outpatients) section. documented in this encounter Results IR Implanted Vascular Access Device Placement (06/05/2020 10:35 AM SENIOR COLDFUSION DEVELOPER) Anatomical Region Laterality Modality Chest, Pelvis, Abdomen, Vascular Interventional RST LOS, N/A X-Ray Angiography Vascular Interventional ARZ LOS, Vascular Interventional FLA LOS Specimen (Source) Anatomical Collection Method Collection Time Re ceived Time Location / / Volume Laterality 06/05/2020 10:40 AM SENIOR COLDFUSION DEVELOPER Impressions 06/05/2020 10:41 AM SENIOR COLDFUSION DEVELOPER Placement of an 8F Slim Power Port-A-Cath. Ready for immediate use. NR Narrative 06/05/2020 10:41 AM SENIOR COLDFUSION DEVELOPER EXAM: IR IMPLANTED VASCULAR ACCESS DEVICE PLACEMENT CLINICAL HISTORY: Pancreatic adenocarcin jenifer TECHNIQUE: ??Patient was prepped and ruby ped in the usual sterile fashion over the right neck and chest. 1% buffered lidoca ine was used as local anesthetic. Using ultrasound guidance to access vessel, connor unger was shown and after anesthetizing the skin with lidocaine, the right inter nal jugular vein was punctured successfully. A permanent image was crea hever and stored. Wire advanced into the IVC and a 5F dilator advanced over the w aline and attached to a one-way stop-cock. Suitable port site in the right anterior chest was anesthetized and an incision made. Blunt dissection was performed cre ating a port pocket. An 8F PowerPort was then secured into the pocket at the 10 o 'clock and 2 o'clock positions with 2-0 Prolene stitches. Catheter was tunneled from the port pocket to the venotomy site. Catheter was cut to length and adv anced through a peel-away sheath. Catheter tip is near the SVC/RA junction . Port was flushed and is ready for immediate use. Port pocket closed with i nterrupted 3-0 Vicryl stitches and Dermabond. Venotomy site closed with Behzad mabond. No immediate complications. For placement of this central venous acc ess, we followed catheter checklist and a standardized protocol. The position of the catheter tip was confirmed under fluoroscopic guidance and a final image of the catheter position was obtained. Ready for use. CT-injectable PowerPort was placed. This device can be power injected up to a pressure of 300 PSI and flow rate of 5 m L/sec. PREPROCEDURE: ??Patient seen, evaluated, history reviewed, and approved for sedation. Airway, heart, and lung exam s atisfactory for sedation. Discussed risks, benefits, alternatives for proced ure, and/or sedation. The roles and responsibilities of care team members, r esidents, and fellows were discussed. Patient understands information and ques tions answered. Informed consent obtained from the patient. Immediately p rior to starting the procedure, in the presence of the assisting personnel, a p rocedural pause was conducted to verify correct patient identity and verificatio n of procedure to be performed, and as applicable, correct side and site, corre ct patient position, availability of implants, special equipment, or special requirements, and all image and specimen identification data. INTRAPROCEDURE: Moderate sedation was ad ministered by sedation nurse under my supervision. The patient was continuousl y monitored with real time oxygen saturation, heart rate, ECG rhythm strip and blood pressure throughout administration of the sedation and perfo rmance of the procedure. The total intra-procedural sedation time was: 23 m inutes. Procedure Note Akhil Cantor M.D. - 2020 EXAM: IR IMPLANTED VASCULAR ACCESS DEVIC E PLACEMENT CLINICAL HISTORY: Pancreatic adenocarcin jenifer TECHNIQUE: Patient was prepped and drape d in the usual sterile fashion over the right neck and chest. 1% buffered lidoca ine was used as local anesthetic. Using ultrasound guidance to access vessel, connor unger was shown and after anesthetizing the skin with lidocaine, the right inter nal jugular vein was punctured successfully. A permanent image was crebobby kathleen and stored. Wire advanced into the IVC and a 5F dilator advanced over the w aline and attached to a one-way stop-cock. Suitable port site in the right anterior chest was anesthetized and an incision made. Blunt dissection was performed cre ating a port pocket. An 8F PowerPort was then secured into the pocket at the 10 o 'clock and 2 o'clock positions with 2-0 Prolene stitches. Catheter was tunneled from the port pocket to the venotomy site. Catheter was cut to length and adv anced through a peel-away sheath. Catheter tip is near the SVC/RA junction . Port was flushed and is ready for immediate use. Port pocket closed with i nterrupted 3-0 Vicryl stitches and Dermabond. Venotomy site closed with Behzad mabond. No immediate complications. For placement of this central venous acc ess, we followed catheter checklist and a standardized protocol. The position of the catheter tip was confirmed under fluoroscopic guidance and a final image of the catheter position was obtained. Ready for use. CT-injectable PowerPort was placed. This device can be power injected up to a pressure of 300 PSI and flow rate of 5 m L/sec. PREPROCEDURE: Patient seen, evaluated, h istory reviewed, and approved for sedation. Airway, heart, and lung exam s atisfactory for sedation. Discussed risks, benefits, alternatives for proced ure, and/or sedation. The roles and responsibilities of care team members, r esidents, and fellows were discussed. Patient understands information and ques tions answered. Informed consent obtained from the patient. Immediately p rior to starting the procedure, in the presence of the assisting personnel, a p rocedural pause was conducted to verify correct patient identity and verificatio n of procedure to be performed, and as applicable, correct side and site, corre ct patient position, availability of implants, special equipment, or special requirements, and all image and specimen identification data. INTRAPROCEDURE: Moderate sedation was ad ministered by sedation nurse under my supervision. The patient was continuousl y monitored with real time oxygen saturation, heart rate, ECG rhythm strip and blood pressure throughout administration of the sedation and perfo rmance of the procedure. The total intra-procedural sedation time was: 23 m inutes. IMPRESSION: Placement of an 8F Slim Power Port-A-Cat h. Ready for immediate use. NR Trace Rudolph APRNNAbdirashid., M.S. IMG IR PROCEDURES documented in this encounter Visit Diagnoses Diagnosis Lesion Pancreas documented in this encounter Administered Medications Inactive Administered Medications - up to 3 most recent administrations Medication Order MAR Action Action Date Dose Rate Site fentaNYL injection 25 mcg Given 06/05/2020 10:21 AM SENIOR COLDFUSION DEVELOPER 25 mcg (SUBLIMAZE) 25 mcg, intravenous, Every 2 min PRN, sedation, or pain before and during sedation procedure, Starting on Mon06/05/20 at 1010, Intraprocedure (RAD), Administer over 1 minute immediately prior to the procedure. May repeat every 2 minutes to a maximum of 200 mcg, until pain score of 3 or less, or until the patient meets the pain comfort goal. Do not give if respiratory rate is less than 8 breaths/minute Given 06/05/2020 10:09 AM SENIOR COLDFUSION DEVELOPER 25 mcg Given 06/05/2020 10:00 AM SENIOR COLDFUSION DEVELOPER 25 mcg flumazeniL injection 0.2 mg (ROMAZICON) 0.2 mg, intravenous, Once as needed, rev ersal, Starting on Mon06/05/20 at 1010, For 1 dose, Intraprocedure (RAD), Administer once if patient has a RASS score of -4, -5 and has a respiratory rate less than 8 breaths/minute. heparin flush Given 06/05/2020 10:22 AM SENIOR COLDFUSION DEVELOPER 800 Units Code/trauma/sedation medication, Starting on Mon06/05/20 at 1022 lidocaine (PF) 10 mg/mL (1 %) injection Given 06/05/2020 10:31 1 0 mL Right Neck (XYLOCAINE) AM SENIOR COLDFUSION DEVELOPER Code/trauma/sedation medication, Starting on Mon06/05/20 at 1031 lidocaine-EPINEPHrine (PF) 1 Given 06/05/2020 10:30 AM 6 mL Right Chest %-1:200,000 injection (XYLOCAINE W/EPI) SENIOR COLDFUSION DEVELOPER Code/trauma/sedation medication, Starting on Mon06/05/20 at 1030 midazolam (PF) injection 0.5 mg (VERSED) 0.5 mg, intravenous, Once as needed, sed ation, Starting on Mon06/05/20 at 1010, For 1 dose, Intraprocedure (RAD) midazolam (PF) injection 0.5 mg (VERSED) Given 06/05/2020 10:17 AM SENIOR COLDFUSION DEVELOPER 0.5 mg 0.5 mg, intravenous, Every 2 min PRN, sedation, RASS -1, Starting on Mon06/05/20 at 1010, Intraprocedure (RAD), May repeat every 2 minutes for a maximum of 5 mg. Do not give if respiratory rate is less than 8 breaths/minute. Given 06/05/2020 10:09 AM SENIOR COLDFUSION DEVELOPER 0.5 mg Given 06/05/2020 10:00 AM SENIOR COLDFUSION DEVELOPER 0.5 mg NaCl 0.9% infusion New Bag 06/05/2020 10:00 AM SENIOR COLDFUSION DEVELOPER 20 mL/hr 20 mL/hr 20 mL/hr, intravenous, Once as needed, to keep vein open, Starting on Mon06/05/20 at 1010, For 1 dose, Intraprocedure (RAD) naloxone injection 0.2 mg (NARCAN) 0.2 mg, intravenous, Once as needed, respiratory depre ssion, Starting on Mon06/05/20 at 1010, For 1 dose, Intraproced ure (RAD), Administer once if patient has a RASS score of -4, -5 and has a respiratory rate less t de santiago 8 breaths/minute. ondansetron (PF) injection 4 mg (ZOFRAN) 4 mg, intravenous, Once as needed, nausea, vomiting, S tarting on Mon06/05/20 at 1010, For 1 dose, Intraprocedure (RAD) sodium chloride 0.9 % injection 10 mL 10 mL, intravenous, As needed, line care, Starting on Mon06/05/20 at 0856, Preprocedure (RAD), Peripheral Intraveno us Catheter and Rapid Infusion Catheter, prior to blood sampling, post blood transfusion or pos t blood sampling sodium chloride 0.9 % injection 3 mL 3 mL, intravenous, As needed, line care, Starting on 06/05/20 at 0856, Preprocedure (RAD), Prior to and following infusion an d between multiple consecutive infusions: sodium chloride 0.9 % injection sodium chloride 0.9 % injection 3 mL 3 mL, intravenous, Every 12 hours scheduled, First dos e on Mon06/05/20 at 0900, Preprocedure (RAD), Peripheral Intraveno us Catheter and Rapid Infusion Catheter, when no infusion to maintain patency documented in this encounter Active and Recently Administered Medications Times are shown in SENIOR COLDFUSION DEVELOPER. Scheduled Medication Order 06/03/2020 06/04/2020 06/05/2020 sodium chloride 0.9 % injection 3 mL 0900 (Due) 3 mL, intravenous, Every 12 hours schedu led, First dose on Mon06/05/20 at 0900, Preprocedure (RAD), Peripheral Intravenous Catheter and Rapid Infusion Catheter, when no infusion to maintain patency PRN Medication Order 06/03/2020 06/04/2020 06/05/2020 fentaNYL injection 25 mcg (SUBLIMAZE) 1000 (Given - Provider: Gricel Cook RChicoN.)1009 (Given - Provider: Gricel Cook RChicoN.)1021 (Given - Provider: Gricel Cook R.N.) 25 mcg, intravenous, Every 2 min PRN, se dation, or pain before and during sedation procedure, Starting on Mon06/05/20 at 1010, Intraprocedure (RAD), Administer over 1 minute immediately prior to the pro cedure. May repeat every 2 minutes to a maximum of 200 mcg, until pain score of 3 or less, or until the patient meets the pain comfort goal. Do not give if respiratory rate is less than 8 breaths/minute flumazeniL injection 0.2 mg (ROMAZICON) 0.2 mg, intravenous, Once as needed, rev ersal, Starting on Mon06/05/20 at 1010, For 1 dose, Intraprocedure (RAD), Administer once if patient has a RASS score of -4, -5 and has a respiratory rate less than 8 breaths/minute. heparin flush (COMPLETED) 1022 ( Given - Provider: Akhil Cantor M.D.) Code/trauma/sedation medication, Starting on Mon06/05/20 at 1022 lidocaine (PF) 10 mg/mL (1 %) injection (XYLOCAINE) (COMPLETED) 1031 (Given - Provider: Akhil Cantor M.D.) Code/trauma/sedation medication, Starting on Mon06/05/20 at 1031 lidocaine-EPINEPHrine (PF) 1 %-1:200,000 injection (XYLOCAINE W/EPI) (COMPLETED) 1030 (Given - Provid er: Akhil Cantor M.D.) Code/trauma/sedation medication, Starting on Mon06/05/20 at 1030 midazolam (PF) injection 0.5 mg (VERSED) 0.5 mg, intravenous, Once as needed, sed ation, Starting on Mon06/05/20 at 1010, For 1 dose, Intraprocedure (RAD) midazolam (PF) injection 0.5 mg (VERSED) 1000 (Given - Provider: Gricel Cook R.N.)1009 (Given - Provider: Shilo KwonN.)1017 (Given - Provider: Shilo KwonNChico) 0.5 mg, intravenous, Every 2 min PRN, se dation, RASS -1, Starting on Mon06/05/20 at 1010, Intraprocedure (RAD), May repeat every 2 minutes for a maximum of 5 mg. Do not give if respiratory rate is less than 8 breaths/minute. NaCl 0.9% infusion (COMPLETED) 1 000 (New Bag - Provider: Gricel Michael R.N.)1030 (Stopped - Provider: Gricel Cook R.N.) 20 mL/hr, intravenous, Once as needed, t o keep vein open, Starting on Mon06/05/20 at 1010, For 1 dose, Intraprocedure (RAD) naloxone injection 0.2 mg (NARCAN) 0.2 mg, intravenous, Once as needed, res piratory depression, Starting on Mon06/05/20 at 1010, For 1 dose, Intraprocedure (RAD), Administer once if patient has a RASS score of -4, -5 and has a respiratory rate less than 8 breaths/minute. ondansetron (PF) injection 4 mg (ZOFRAN) 4 mg, intravenous, Once as needed, nause a, vomiting, Starting on Mon06/05/20 at 1010, For 1 dose, Intraprocedure (RAD) sodium chloride 0.9 % injection 10 mL 10 mL, intravenous, As needed, line care , Starting on Mon06/05/20 at 0856, Preprocedure (RAD), Peripheral Intravenous Catheter and Rapid Infusion Catheter, prior to blood sampling, post blood transfusion or post blood sampling sodium chloride 0.9 % injection 3 mL 3 mL, intravenous, As needed, line care, Starting on Mon06/05/20 at 0856, Preprocedure (RAD), Prior to and following infusion and between multiple consecutive infusions: sodium chloride 0.9 % injection documented in this encounter
--- OUTSIDE RECORDS SUMMARY | 2021-11-03 07:09 | XMS_ITS | Encounter Summary ---
:1940 Author Organization [facility] Address [address] [place] [address] Care Team Providers Name Role Phone Unavailable Primary Care Provider Unavailable Reason for Referral Outpatient (Routine) - Closed Specialty Diagnoses / Procedures Referred By Contact Refer red To Contact Diagnoses Malignant Neoplasm Of Pancreas Adenocarcinoma (HCC) Kimberly Rios APRN, [facility] Procedures ONC Pump Disconnect C.N.P., M.S. [address] [place] [address] Referral ID Status Reason Start Date Expiration Date Visits Requ ested Visits Authorized [id number] Closed 06/23/2020 06/23/2021 1 1 Encounter Details Date Type Department Care Team Description 06/23/2020 Orders Only Department of [facility], Malignant Neop lasm Of Infusion Therapy in Pema Phillips R Kendall Pancreas Adenocarcinoma [place], [place] 2199 (HCC) (Primary Dx) [address] [place] [phone] Social History Tobacco Use Types Packs/Day Years [...] Visit Neurology Kenji Zaldivar M.D. [address] [place] [address] Scheduled Orders Name Type Priority Associated Diagnoses Order S chedule ONC Pump Disconnect Procedures Routine Malignant Neoplasm Of 1 Occurrences Pancreas Adenocarcinoma star ting 06/23/2020 (HCC) until 4 documented as of this encounter Visit Diagnoses Diagnosis Malignant Neoplasm Of Pancreas Adenocarc inoma (HCC) - Primary documented in this encounter
--- OUTSIDE RECORDS SUMMARY | 2021-11-03 07:09 | XMS_ITS | Encounter Summary ---
:1940 Author Organization [facility] Address [address] [place] [address] Care Team Providers Name Role Phone Unavailable Primary Care Provider Unavailable Reason for Referral Outpatient (Routine) - Closed Specialty Diagnoses / Procedures Referred By Contact Refer red To Contact Diagnoses Malignant Neoplasm Of Pancreas Adenocarcinoma (HCC) Kimberly Rios APRN, [facility] Procedures ONC Pump Disconnect C.N.P., M.S. [address] [place] [phone] Referral ID Status Reason Start Date Expiration Date Visits Requ ested Visits Authorized [id number] Closed 06/08/2020 06/08/2021 1 1 Specialty Diagnoses / Procedures Referred By Contact Refer red To Contact [facility] [address] [place] [phone] Referral ID Status Reason Start Date Expiration Date Visits Requ ested Visits Authorized DOUGH ROLLER Reason for Visit Episode Based Medications (Routine) - Authorized Specialty Diagnoses / Procedures Referred By Contact Refer red To Contact Diagnoses Malignant Neoplasm Of Pancreas Adenocarcinoma (HCC) Neutropenia Chemotherapy Induced (HCC) Kimberly Rios, t Onc Rogo LENNOX C.N.P., M.S. [address] [place] [address] [address] [place] [phone] Referral ID Status Reason Start Date Expiration Date Visits V jay Requested Authorized [id number] Authorized 06/03/2020 06/03/2021 99 99 Encounter Details Date Type Department Care Team Description 06/08/2020 [facility], C.NAbdirashid., M.S. [address] [place] [phone] Osteoarthritis (Primary Dx); Oncology in LyndaMariana islas R.N. [address] [place] [address] Malignant Neoplasm Of Pancreas Adenocarc inoma (HCC) [facility], [place] [address] [place] [phone] Social History Tobacco Use Types Packs/Day Years [...] More than 4 times per year 06/19/2021 [employer] services? Do you belong to any clubs [...] documented as of this encounter Progress Notes Mariana Morales R.N. - 06/08/2020 8:30 AM CDT I met with Mrs. العراقي and her , Will, to discuss FOLFIRINOX chemotherapy education. We discussed logistics and most common side effects. I supplied her with educational material as well. She was provided with our Care Team Card, with our Care Team number as well as After Hours number to call should she have any questions or concerns. She will call with a fever of 100.4 or greater, or any difficulties controlling her symptoms. All questions answered. documented in this encounter Plan of Treatment Upcoming Encounters Date Type Specialty Care Team Description 11/19/2021 Clinical Communication Admitting/Central Scheduling 11/23/2021 Comprehensive Visit Neurology Kenji Zaldivar M.D. [address] [place] [address] Scheduled Orders Name Type Priority Associated Diagnoses Order S chedule ONC Pump Disconnect Procedures Routine Malignant Neoplasm Of Expected: Pancreas Adenocarcinoma 05/25 (HCC) (Approximate), Expires: 2023 Scheduled Referrals Name Type Priority Associated Diagnoses Order S chedule Patient Education - Outpatient Routine Malignant Neoplasm Of Expected: Introduction to Referral Pancreas 06/04/2020 cancer care (clinic) Adenocarcinoma (HCC) (Approximate), Expires: 06/05/2023 documented as of this encounter Visit Diagnoses Diagnosis Osteoarthritis - Primary Malignant Neoplasm Of Pancreas Adenocarc inoma (HCC) documented in this encounter
--- OUTSIDE RECORDS SUMMARY | 2021-11-03 07:10 | XMS_ITS | Encounter Summary ---
:1940 Author Organization [facility] Address [address] [place] [address] Care Team Providers Name Role Phone Unavailable Primary Care Provider Unavailable Reason for Referral Outpatient (Routine) - Closed Specialty Diagnoses / Procedures Referred By Contact Refer red To Contact Diagnoses Age Related Nuclear Cataract Bilateral Delmar Mulligan M.D. [address] [place] [phone] Referral ID Status Reason Start Date Expiration Date Visits Requ ested Visits Authorized [id number] Closed 01/06/2017 07/05/2017 1 1 Encounter Details Date Type Department Care Team Description 01/06/2017 Orders Only Department of Delmar Mulligan Age Related Nuclear Ophthalmology in [place] Cataract Bilateral [place], [place] [address], [place] [phone] Social History Tobacco Use Types Packs/Day Years Used Date Smoking Tobacco: Never Alcohol Habits Answer Date Recorded How often [...] Visit Neurology Kenji Zaldivar M.D. [address] [place] [address] Scheduled Referrals Name Type Priority Associated Order Schedule Diagnoses Ophthalmology office Outpatient Referral Routine Age Related N uclear Expected: visit (clinic) Cataract Bilateral 018 (Approximate), Expires: 12/26/2022 documented as of this encounter Visit Diagnoses Diagnosis Age Related Nuclear Cataract Bilateral documented in this encounter
--- OUTSIDE RECORDS SUMMARY | 2021-11-03 07:10 | XMS_ITS | Encounter Summary ---
:1940 Author Organization [facility] Address [address] [place] [address] Care Team Providers Name Role Phone Unavailable Primary Care Provider Unavailable Reason for Referral Outpatient (Routine) - Closed Specialty Diagnoses / Procedures Referred By Contact Refer red To Contact Procedures Delmar Mulligan M.D. [facility] OPH General eye exam [address] [place] [phone] Referral ID Status Reason Start Date Expiration Date Visits Requ ested Visits Authorized [id number] Closed 12/11/2019 12/10/2020 1 1 Reason for Visit Reason Comments Eye Exam Outpatient (Routine) - Closed Specialty Diagnoses / Procedures Referred By Contact Refer red To Contact Ophthalmology Delmar Mulligan M.D. [facility] [address], [place] [phone] Referral ID Status Reason Start Date Expiration Date Visits Requ ested Visits Authorized [id number] Closed 04/11/2019 04/10/2020 1 1 Encounter Details Date Type Department Care Team Description 12/11/2019 Office Visit Department of Delmar Mulligan, Cataract [place] Nuclear Sclerosis Bilateral (Primary Dx); Ophthalmology in [place] Myopia Bilateral [place], [place] [address] [place] [phone] Social History Tobacco Use Types Packs/Day Years [...] encounter Progress Notes Delmar Mulligan M.D. - 12/11/2019 10:00 AM CDT Azeb العراقي was seen today for Eye Exam #1 Cataract Senile Nuclear Sclerosis Bilateral #2 Myopia Bilateral Increasingly visually significant both eyes, impairing reading and driving. Plan: Discuss cataract surgery. RTC one year. cex/ref documented in this encounter Plan of Treatment Upcoming Encounters Date Type Specialty Care Team Description 11/19/2021 Clinical Communication Admitting/Central Scheduling 11/23/2021 Comprehensive Visit Neurology Kenji Zaldivar M.D. [address] [place] [address] Scheduled Orders Name Type Priority Associated Diagnoses Order S chedule OPH General eye exam Procedures Routine Expecte d: 12/10/2020 (Approximate), Expires: 12/10/2022 documented as of this encounter Visit Diagnoses Diagnosis Cataract Senile Nuclear Sclerosis Bilate ral - Primary Myopia Bilateral documented in this encounter
--- OUTSIDE RECORDS SUMMARY | 2021-11-03 07:10 | XMS_ITS | Encounter Summary ---
:1940 Author Organization [facility] Address [address] [place] [address] Care Team Providers Name Role Phone Unavailable Primary Care Provider Unavailable Reason for Visit Reason Comments COVID Inquiry Encounter Details Date Type Department Care Team Description 05/21/2020 Clinical Division of Prescheduling, COVID Inquiry Communication Gastroenterology in [place], [place] [address] [place] [address] Social History Tobacco Use Types Packs/Day [...] this encounter Miscellaneous Notes Telephone Encounter - Birgit Carballo - 05/21/2020 9:57 AM CST What is the purpose of the call?: Standard Appointment Process Standard Appointment Process Have you tested positive for COVID-19 in the last 20 days OR do you have a pending COVID-19 test because you had symptoms?: No, neither apply What region is the appointment being requested?: Less than 20 days [facility], [facility] or [facility] In the past 14 days are any of the following symptoms new to you and not related to an existing health condition?: No symptoms noted In the past 14 days have you had close contact* with a person who has a LABORATORY CONFIRMED case ofCOVID-19?: No exposure noted, follow appt process (End Screening) Testing Recommendation Endpoint Is testing recommended? : Not recommended to test Plan: Endpoint recommendation: Followed regional OTG *Reminder if sending patient for testing in [facility] or [facility], route encounter to the correct testing pool. 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 [address] [place] [address] documented as of this encounter Visit Diagnoses Not on filedocumented in this encounter
--- OUTSIDE RECORDS SUMMARY | 2021-11-03 07:10 | XMS_ITS | Encounter Summary ---
:1940 Author Organization [facility] Address [address] [place] [address] Care Team Providers Name Role Phone Unavailable Primary Care Provider Unavailable Reason for Visit Reason Comments Communication eye complaint Encounter Details Date Type Department Care Team Description 07/03/2017 Clinical Communication Department of Delmar Mulligan (eye Sleep Medicine in [place], [place]. complaint) [place], [address] [facility] [phone] Social History Tobacco Use Types [...] this encounter Miscellaneous Notes Telephone Encounter - Sania Ross - 07/03/2017 3:28 PM CDT on [facility] . Telephone Encounter - Che Lopez - 07/03/2017 8:57 AM CDT Patient had blood vessel burst right eye, no pain, wondering if she needs to come in or if it just takes care of itself. documented in this encounter Plan of Treatment Upcoming Encounters Date Type Specialty Care Team Description 11/19/2021 Clinical Communication Admitting/Central Scheduling 11/23/2021 Comprehensive Visit Neurology Kenji Zaldivar M.D. [address] [place] [address] documented as of this encounter Visit Diagnoses Not on filedocumented in this encounter
--- OUTSIDE RECORDS SUMMARY | 2021-11-03 07:10 | XMS_ITS | Encounter Summary ---
:1940 Author Organization [facility] Address [address] [place] [address] Care Team Providers Name Role Phone Unavailable Primary Care Provider Unavailable Encounter Details Date Type Department Care Team Description 06/20/2017 Abstract Department of Family Medicine, Provider, Historical [facility], in [place], [place] [address] [place] [address] Social History Tobacco Use Types Packs/Day Years [...] Comprehensive Visit Neurology Kenji Zaldivar M.D. [address] [place] [phone] documented as of this encounter Visit Diagnoses Not on filedocumented in this encounter
--- OUTSIDE RECORDS SUMMARY | 2021-11-03 07:10 | XMS_ITS | Encounter Summary ---
:1940 Author Organization [facility] Address [address] [place] [address] Care Team Providers Name Role Phone Unavailable Primary Care Provider Unavailable Reason for Visit Reason Comments Med Refill Encounter Details Date Type Department Care Team Description 07/30/2018 Refill Department of Urology in [place]phani Ervin APRN, Med Refill [facility] [address] [place] [address] [place] [phone] (Wo rk) Social History Tobacco Use Types [...] this encounter Miscellaneous Notes Telephone Encounter - Eufemia Velasco R.N. - 08/01/2018 10:46 AM CDT Patient states she is using the cream but is not in need of an Rx thus far. Will contact urology if further needs or concerns. Telephone Encounter - Eufemia Velasco R.N. - 07/31/2018 3:33 PM CDT Left message to call urology back. Telephone Encounter - Stephani Ervin APRN, C.N.P. - 07/31/2018 3:22 PM CDT Is she still using this cream? I have not seen her since June 2017. Telephone Encounter - Eufemia Velasco R.N. - 07/30/2018 4:42 PM CDT Last urology visit 07/03/17. Please review Rx request. Telephone Encounter - Diane Barriga - 07/30/2018 3:27 PM CDT Nurse review: Unable to pend medication; Not on active med list. Primary Provider: Stephani Ervin Name of medication: Estriol Vaginal Cream Strength: 0.3% Frequency: Apply 1 gram vaginally at bedtime for 7 days, then apply 1 gram vaginally at bedtime 3 times weekly Quantity: 30 Last Refill: Pharmacy: [place], [place] documented in this encounter Plan of Treatment Upcoming Encounters Date Type Specialty Care Team Description 11/19/2021 Clinical Communication Admitting/Central Scheduling 11/23/2021 Comprehensive Visit Neurology Kenji Zaldivar M.D. [address] [place] [address] documented as of this encounter Visit Diagnoses Not on filedocumented in this encounter
--- OUTSIDE RECORDS SUMMARY | 2021-11-03 07:10 | XMS_ITS | Encounter Summary ---
:1940 Author Organization [facility] Address [address] [place] [address] Care Team Providers Name Role Phone Unavailable Primary Care Provider Unavailable Encounter Details Date Type Department Care Team Description 05/25/2020 Hospital Encounter Department of Panchito Daley Laboratory Medicine Yasir Silva M.D., (HC C) and Pathology, Ph.D. [facility] [place], [place] [address] [place] [address] Social History Tobacco Use Types Packs/Day Years [...] Sig Dispensed Refills Start Date End Date [id number] Take by mouth. 0 n (Citracal-D3 Maximum Plus) Taking 3-4 daily 325 mg-12.5 mcg -2.75 mg tablet ESTRIOL MICRONIZED, BULK, Three Times 0 0 MISC Weekly magnesium oxide (MAG-OX) 400 Take 400 mg by 0 mg (241.3 mg magnesium) mouth. Taking 4 tablet tablets daily calcitRIOL (ROCALTROL) 0.5 0 1 08/13/2020 mcg capsule CALCIUM CITRATE ORAL Citracal 0 11/25/200908/26 CHOLECALCIFEROL, VITAMIN D3, Vitamin D3 1000 0 09/14/2020 ORAL intl units oral tablet hydroCHLOROthiazide Take 25 mg by 3 10/04/2017 (HYDRODIURIL) 25 mg tablet mouth once daily. levothyroxine sodium Synthroid 0 11/25/200908/26 (LEVOTHYROXINE ORAL) lisinopriL Take 20 mg by 0 04/10/2020 09/24/2021 (PRINIVIL,ZESTRIL) 20 mg mouth. tablet NON FORMULARYIndications: Estriol 0.3% 30 g 11 [...] Comprehensive Visit Neurology Kenji Zaldivar M.D. [address] [place] [phone] documented as of this encounter Procedures Procedure Name Priority Date/Time Associated Comments Diagnosis CARBOHYDRATE AG 19-9 Routine 05/25/2020 3:15 PM Lesion Pancrea s Results for this (CA 19-9), S CLINICAL SCIENCES PROFESSOR (HCC) procedure are i n the results section. PROTHROMBIN TIME (PT), Routine 05/25/2020 3:15 PM Lesion Pancr eas Results for this P CLINICAL SCIENCES PROFESSOR (HCC) procedure are i n the results section. CBC WITH DIFFERENTIAL, Routine 05/25/2020 3:15 PM Lesion Pancr eas Results for this B CLINICAL SCIENCES PROFESSOR (HCC) procedure are i n the results section. C-REACTIVE PROTEIN Routine 05/25/2020 3:15 PM Lesion Pancreas Results for this (CRP), S/P CLINICAL SCIENCES PROFESSOR (HCC) procedure are i n the results section. COMPREHENSIVE Routine 05/25/2020 3:15 PM Lesion Pancreas Resul ts for this METABOLIC PANEL, S/P CLINICAL SCIENCES PROFESSOR (HCC) procedu re are in the results section. documented in this encounter Results CRP (C-Reactive Protein) (05/25/2020 3:15 PM CLINICAL SCIENCES PROFESSOR) P athologist Signature C-Reactive <3.0 <=8.0 mg/L 05/25/2020 DTL Protein (CRP), 4:04 PM CLINICAL SCIENCES PROFESSOR S Specimen Anatomical Collection Method Collection Time Receive d Time (Source) Location / / Volume Laterality Blood (Blood, 05/25/2020 3:15 PM 05/26/19 3:37 Venous) CLINICAL SCIENCES PROFESSOR PM CLINICAL SCIENCES PROFESSOR Yasir Daley M.D., Ph.D. LAB BLOOD ADD-ON Performing Organization Address City/State/ZIP Code Phon e Number [facility] - [address] [place] [phone] [facility] [place] [place] [address] [facility] 200 [facility] (ABNORMAL) Prothrombin Time (PT) (05/25/2020 3:15 PM CLINICAL SCIENCES PROFESSOR) Patholo gist Method Time Signature Prothrombin 13.5 (H) 9.4 - 12.5 05/25/2020 DTL Time, P sec 4:09 PM CLINICAL SCIENCES PROFESSOR INR 1.2 0.9 - 1.1 05/25/2020 DT 4:09 PM CLINICAL SCIENCES PROFESSOR Comment: ----ADDITIONAL INFORMATION---- Standard intensity warfarin therapeutic range: 2.0 to 3.0 ?? High intensity warfarin therapeutic rang e: 2.5 to 3.5 Specimen Anatomical Collection Method Collection Time Receive d Time (Source) Location / / Volume Laterality Blood (Blood, 05/25/2020 3:15 PM 05/26/19 3:37 Venous) CLINICAL SCIENCES PROFESSOR PM CLINICAL SCIENCES PROFESSOR Yasir Daley M.D., Ph.D. LAB BLOOD ADD-ON Performing Organization Address City/[facility]/ZIP [facility] Phon e Number [facility] - [address] [place], [place] [address] [place] [address] [facility] [address] [facility] (ABNORMAL) Carbohydrate Antigen 19-9 (CA 19-9) (05/25/2020 3:15 PM CLINICAL SCIENCES PROFESSOR) Patholo gist Method Time Signature Carbohydrate Ag 178 (H) <35 U/mL 05/25/2020 [facility] 19-9, S 6:45 PM CLINICAL SCIENCES PROFESSOR Comment: ----ADDITIONAL INFORMATION---- The testing method is an immunoenzymatic assay manufactured by [employer] and performed on the [employer] DxI 800. ? Values obtained with different assay met hods or kits may be different and cannot be used inte rchangeably. ? Test results cannot be interpreted as ab solute evidence for the presence or absence of malignant disease. Specimen Anatomical Collection Method Collection Time Receive d Time (Source) Location / / Volume Laterality Blood (Blood, 05/25/2020 3:15 PM 05/26/19 5:56 Venous) CLINICAL SCIENCES PROFESSOR PM CLINICAL SCIENCES PROFESSOR Yasir Daley M.D., Ph.D. LAB BLOOD ADD-ON Performing Organization Address City/[facility] Phon e Number [facility] [address] [place], [place] [address] [facility] [place] [address] Laboratory Medicine and Pathology [address] [place] (ABNORMAL) Comprehensive Metabolic Panel (05/25/2020 3:15 PM CLINICAL SCIENCES PROFESSOR) athologist Signature Potassium, S 4.0 3.6 - 5.2 05/25/2020 DTL mmol/L 4:04 PM CLINICAL SCIENCES PROFESSOR Sodium, S 141 135 - 145 05/25/2020 DTL mmol/L 4:04 PM CLINICAL SCIENCES PROFESSOR Chloride, S 98 98 - 107 05/25/2020 DTL mmol/L 4:04 PM CLINICAL SCIENCES PROFESSOR Bicarbonate, S 27 22 - 29 05/25/2020 DTL mmol/L 4:04 PM CLINICAL SCIENCES PROFESSOR Anion Gap 16 (H) 7 - 15 05/25/2020 DTL 4:04 PM CLINICAL SCIENCES PROFESSOR BUN (Blood Urea 12 6 - 21 05/25/2020 DTL Nitrogen), S mg/dL 4:04 PM CLINICAL SCIENCES PROFESSOR Creatinine, S 1.02 0.59 - 05/25/2020 DTL 1.04 mg/dL 4:04 PM CLINICAL SCIENCES PROFESSOR eGFR-Non 53 (L) >=60 05/25/2020 DTL Black/ mL/min/BSA 4:04 PM CLINICAL SCIENCES PROFESSOR [place] Comment: ----ADDITIONAL INFORMATION---- Estimated GFR calculated using the 2009 CKD_EPI creatinine equation. eGFR-Black/ 61 >=60 mL/min/BSA 2020 4:04 PM CLINICAL SCIENCES PROFESSOR DTL Comment: ----ADDITIONAL INFORMATION---- Estimated GFR calculated using the 2009 CKD_EPI creatinine equation. Calcium, Total, S 6.7 (L) 8.8 - 10.2 mg/dL 05/25/2020 4:04 PM CLINICAL SCIENCES PROFESSOR DTL Glucose, S 93 70 - 140 mg/dL 05/25/2020 4:04 PM CLINICAL SCIENCES PROFESSOR D TL Protein, Total, S 7.2 6.3 - 7.9 g/dL 05/25/2020 4:04 P M CLINICAL SCIENCES PROFESSOR DTL Albumin, S 4.7 3.5 - 5.0 g/dL 05/25/2020 4:04 PM CLINICAL SCIENCES PROFESSOR D TL Aspartate Aminotransferase 42 8 - 43 U/L 05/25/2020 4 :04 PM CLINICAL SCIENCES PROFESSOR DTL (AST), S Alkaline Phosphatase, S 62 35 - 104 U/L 05/25/2020 4: 04 PM CLINICAL SCIENCES PROFESSOR DTL Alanine Aminotransferase 42 7 - 45 U/L 05/25/2020 4:0 4 PM CLINICAL SCIENCES PROFESSOR DTL (ALT), S Bilirubin, Total, S 0.3 <=1.2 mg/dL 05/25/2020 4:04 PM CLINICAL SCIENCES PROFESSOR DTL Specimen Anatomical Collection Method Collection Time Receive d Time (Source) Location / / Volume Laterality Blood (Blood, 05/25/2020 3:15 PM 05/26/19 21 3:37 Venous) CLINICAL SCIENCES PROFESSOR PM CLINICAL SCIENCES PROFESSOR Yasir Daley M.D., Ph.D. LAB BLOOD ADD-ON Performing Organization Address City/State/ZIP Code Phon e Number [facility] - [address] [place], [place] [address] [facility] [place] [address] [facility] [address] [facility] (ABNORMAL) CBC with Differential, Blood (05/25/2020 3:15 PM CLINICAL SCIENCES PROFESSOR) [facility] gist Method Time Signature Hemoglobin 11.2 (L) 11.6 - 05/25/2020 DTL 15.0 g/dL 3:44 PM CLINICAL SCIENCES PROFESSOR Hematocrit 34.2 (L) 35.5 - 05/25/2020 DTL 44.9 % 3:44 PM CLINICAL SCIENCES PROFESSOR Erythrocytes 3.57 (L) 3.92 - 05/25/2020 DTL 5.13 3:44 PM CLINICAL SCIENCES PROFESSOR x10(12)/L MCV 95.8 78.2 - 05/25/2020 DTL 97.9 fL 3:44 PM CLINICAL SCIENCES PROFESSOR RBC Distrib Width 13.1 12.2 - 05/25/2020 DTL 16.1 % 3:44 PM CLINICAL SCIENCES PROFESSOR Platelet Count 309 157 - 371 05/25/2020 DTL x10(9)/L 3:44 PM CLINICAL SCIENCES PROFESSOR Leukocytes 7.9 3.4 - 9.6 05/25/2020 DTL x10(9)/L 3:44 PM CLINICAL SCIENCES PROFESSOR Neutrophils 6.07 1.56 - 05/25/2020 DTL 6.45 3:44 PM CLINICAL SCIENCES PROFESSOR x10(9)/L Lymphocytes 0.96 0.95 - 05/25/2020 DTL 3.07 3:44 PM CLINICAL SCIENCES PROFESSOR x10(9)/L Monocytes 0.80 0.26 - 05/25/2020 DTL 0.81 3:44 PM CLINICAL SCIENCES PROFESSOR x10(9)/L Eosinophils 0.03 0.03 - 05/25/2020 DTL 0.48 3:44 PM CLINICAL SCIENCES PROFESSOR x10(9)/L Basophils 0.03 0.01 - 05/25/2020 DTL 0.08 3:44 PM CLINICAL SCIENCES PROFESSOR x10(9)/L Specimen Anatomical Collection Method Collection Time Receive d Time (Source) Location / / Volume Laterality Blood (Blood, 05/25/2020 3:15 PM 05/26/19 3:37 Venous) CLINICAL SCIENCES PROFESSOR PM CLINICAL SCIENCES PROFESSOR Yasir Daley M.D., Ph.D. LAB BLOOD ADD-ON Performing Organization Address City/State/ZIP Code Phon e Number [facility] - [address] [place], [place] [address] [facility] [address] [facility] [address] documented in this encounter Visit Diagnoses Diagnosis Lesion Pancreas documented in this encounter Additional Health Concerns Infection Onset Date Last Indicated Resolved Time COVID19 Pending 05/25/2020 05/25/2020 05/26/2020 9:52 AM CLINICAL SCIENCES PROFESSOR documented as of this encounter
--- OUTSIDE RECORDS SUMMARY | 2021-11-03 07:10 | XMS_ITS | Encounter Summary ---
:1940 Author Organization [facility] Address [address] [place] [address] Care Team Providers Name Role Phone Unavailable Primary Care Provider Unavailable Reason for Referral Outpatient (Routine) - Closed Specialty Diagnoses / Procedures Referred By Contact Refer red To Contact Ophthalmology Delmar Mulligan M.D. [facility] [address] [place] [phone] Referral ID Status Reason Start Date Expiration Date Visits Requ ested Visits Authorized [id number] Closed 04/11/2019 04/10/2020 1 1 MAIN AND LINE FITTER Reason for Visit Reason Comments Follow-up Outpatient (Routine) - Closed Specialty Diagnoses / Procedures Referred By Contact Refer red To Contact Ophthalmology Delmar Mulligan M.D. [facility] [address] [place] [phone] Referral ID Status Reason Start Date Expiration Date Visits Requ ested Visits Authorized [id number] Closed 12/03/2018 12/03/2019 1 1 Encounter Details Date Type Department Care Team Description 04/11/2019 Office Visit Department of Delmar Mulligan Cataract Se nile Ophthalmology issa Parks Nuclear Sclerosis [place], [place] [address] [place] [address] Bilateral (Primary 2199 [place], [place]x) [place] [phone] Social History Tobacco Use Types Packs/Day Years [...] encounter Progress Notes Delmar Mulligan M.D. - 04/11/2019 10:30 AM CST Azeb العراقي was seen today for Follow-up #1 Cataract Senile Nuclear Sclerosis Bilateral Not yet visually significant for cataract surgery. Plan: RTC nine months annual dilation. N/c MAIN AND LINE FITTER documented in this encounter Plan of Treatment Upcoming Encounters Date Type Specialty Care Team Description 11/19/2021 Clinical Communication Admitting/Central Scheduling 11/23/2021 Comprehensive Visit Neurology Kenji Zaldivar M.D. 200 [place] [address] Scheduled Referrals Name Type Priority Associated Order Schedule Diagnoses Ophthalmology office Outpatient Referral Routine Expected: visit (clinic) 12/11/2019 (Approximate), Expires: 04/11/2022 documented as of this encounter Visit Diagnoses Diagnosis Cataract Senile Nuclear Sclerosis Bilate ral - Primary documented in this encounter
--- OUTSIDE RECORDS SUMMARY | 2021-11-03 07:10 | XMS_ITS | Encounter Summary ---
:1940 Author Organization [facility] Address [address] [place] [address] Care Team Providers Name Role Phone Unavailable Primary Care Provider Unavailable Reason for Referral Outpatient (Routine) - Closed Specialty Diagnoses / Procedures Referred By Contact Refer red To Contact Ophthalmology Delmar Mulligan M.D. [facility] [place] [facility] [address] [phone] Referral ID Status Reason Start Date Expiration Date Visits Requ ested Visits Authorized [id number] Closed 12/03/2018 12/03/2019 1 1 Reason for Visit Outpatient (Routine) - Closed Specialty Diagnoses / Procedures Referred By Contact Refer red To Contact Ophthalmology Delmar Mulligan M.D. [facility] [place] [facility] [address] [phone] Referral ID Status Reason Start Date Expiration Date Visits Requ ested Visits Authorized [id number] Closed 11/28/2018 11/28/2019 1 1 Encounter Details Date Type Department Care Team Description 12/03/2018 Office Visit Department of Delmar Mulligan Cataract Se nile Ophthalmology issa Parks Nuclear Sclerosis [place], [place] [address] Bilateral (Primary [address] [place] [address] Dx) [place] [phone] Social History Tobacco Use Types Packs/Day Years [...] or relatives? How often do you attend pentecostalism or More than 4 times per year 06/19/2021 quaker services? Do you belong to any clubs or Yes 06/19/2021 organizations such as pentecostalism groups, unions, fraternal or athletic groups, or [...] encounter Progress Notes Delmar Mulligan M.D. - 12/03/2018 3:00 PM CDT Azeb العراقي was seen today for No chief complaint on file. #1 Cataract Senile Nuclear Sclerosis Bilateral Increasingly visually significant Plan: Update glasses. Recheck three months. N/c documented in this encounter Plan of Treatment Upcoming Encounters Date Type Specialty Care Team Description 11/19/2021 Clinical Communication Admitting/Central Scheduling 11/23/2021 Comprehensive Visit Neurology Kenji Zaldivar M.D. [address] [place] [address] Scheduled Referrals Name Type Priority Associated Order Schedule Diagnoses Ophthalmology office Outpatient Referral Routine Expected: visit (clinic) 03/04/2019 (Approximate), Expires: 12/03/2021 documented as of this encounter Visit Diagnoses Diagnosis Cataract Senile Nuclear Sclerosis Bilate ral - Primary documented in this encounter
--- OUTSIDE RECORDS SUMMARY | 2021-11-03 07:10 | XMS_ITS | Encounter Summary ---
:1940 Author Organization [facility] Address [address] [place] [address] Care Team Providers Name Role Phone Unavailable Primary Care Provider Unavailable Encounter Details Date Type Department Care Team Description 12/22/2016 Hospital Encounter HX [facility] Jeb Berry M.D. [address] [place], [place] [phone] (Wo rk) Social History [...] Sig Dispensed Refills Start Date End Date CALCIUM CITRATE ORAL Citracal 0 11/25/200908/26 CHOLECALCIFEROL, VITAMIN D3, Vitamin D3 1000 0 09/14/2020 ORAL intl units oral tablet HYDROCHLOROTHIAZIDE ORAL Take by mouth 0 12/28/19 12 11/30/2017 daily. levothyroxine sodium Synthroid 0 11/25/200908/26 (LEVOTHYROXINE ORAL) documented as of this encounter Progress Notes Delmar Luu M.D. - 12/22/2016 10:28 AM CDT [id number] The documentation for this visit is available in [employer] IMPRESSION/REPORT/PLAN #1 Cataracts, nuclear both eyes. #2 Choroidal nevus, left eye. Stable, Plan: Update glasses. U/v protection. F/u one year. CE/ref Delmar Luu M.D./ Electronically Signed By: DELMAR LUU MD On: 12/23/2016 07:57 AM Source: [facility] [id number] Document Id: [id number] documented in this encounter Miscellaneous Notes Miscellaneous - Delmar Luu M.D. - 12/22/2016 11:46 AM CDT Ambulatory Patient Summary [facility] [address] [place], [place] [phone] Visit Information Name: AZEB العراقي [facility] Number: [id number] Current Date: 12/22/2016 11:46:53 Physicians Attending Provider: DELMAR LUU MD Primary Care Provider: PCP, AZEB JONES has been given the following list of follow-up instructions, medication list, and patient education materials: Follow-up Instructions Your Medications Here is a list of your medications. It is important to take your medications as directed. Use a pillbox or chart to help remind you to take your medications. Please let your doctor or nurse know if you have problems taking your medications. Medication/Strength How to Take Indications/Special Instructions/Comments/Notes for Patient Medication Changes/Routing calcium citrate (Citracal) cholecalciferol (Vitamin D3 1000 intl units oral tablet) hydrochlorothiazide (hydrochlorothiazide) Oral, once a day levothyroxine (Synthroid) ocular lubricant (Artificial Tears) Stop Taking the Following Medications: Medication list as of 12-22-16 11:46 Attention: If you have any medications at home that are not on this list, DO NOT take them until youcontact your provider for clarification. Give a copy of your medication list to your primary care provider. Update your medication list any time medications or doses are changed and carry your medication list at all times in case of emergency. 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 Consider Using Patient Online Services Patient Online [employer] is a secure online and Mobile application that lets you: ?? View lab and test results ?? View portions of your medical record including clinical notes, immunizations and discharge summaries ?? Request an appointment or medication refill ?? Review your appointment schedule ?? Send secure messages to your care team Its easy to create an account if you dont have one. Go to [email or web address] and click on Create Your Account. Then, follow the directions to complete the online form. Youll be asked for your [facility] number which you can find at the top of this document. Your Goals/Additional instructions: Source: [facility] [employer] Document Id: [id number] Miscellaneous - Delmar Luu M.D. - 12/22/2016 11:46 AM CDT Ambulatory Discharge Medication List [address] [id number] Visit Information Name: AZEB العراقي [facility] Number: [id number] Current Date: 12/22/2016 11:46:53 Attending Provider: DELMAR LUU MD Primary Care Provider: PCP, RENA AZEB العراقي has been given the following list of medications: Your Medications It is important to take your medications as directed. Use a pill box or chart to help remind you to take your medications. Please let your doctor or nurse know if you have problems taking your medications. Medication/Strength How to Take Indications/Special Instructions/Comments/Notes for Patient Medication Changes/Routing calcium citrate (Citracal) cholecalciferol (Vitamin D3 1000 intl units oral tablet) hydrochlorothiazide (hydrochlorothiazide) Oral, once a day levothyroxine (Synthroid) ocular lubricant (Artificial Tears) Stop Taking the Following Medications: Medication list as of 12-22-16 11:46 Attention: If you have any medications at home that are not on this list, DO NOT take them until youcontact your provider for clarification. Give a copy of your medication list to your primary care provider. Update your medication list any time medications or doses are changed and carry your medication list at all times in case of emergency. Electronically Signed By: DELMAR LUU MD Signed On:22-DEC-2016 11:46:52 Additional Information: Source: [facility] [employer] Document Id: [id number] documented in this encounter Plan of Treatment Upcoming Encounters Date Type Specialty Care Team Description 11/19/2021 Clinical Communication Admitting/Central Scheduling 11/23/2021 Comprehensive Visit Neurology Kenji Zaldivar M.D. [address] [place] [address] documented as of this encounter Visit Diagnoses Not on filedocumented in this encounter
--- OUTSIDE RECORDS SUMMARY | 2021-11-03 07:10 | XMS_ITS | Encounter Summary ---
:1940 Author Organization [facility] Address [address] [place] [address] Care Team Providers Name Role Phone Unavailable Primary Care Provider Unavailable Reason for Referral Outpatient (Routine) - Closed Specialty Diagnoses / Procedures Referred By Contact Refer red To Contact Ophthalmology Delmar Mulligan M.D. [facility] [address] [place] [address] Referral ID Status Reason Start Date Expiration Date Visits Requ ested Visits Authorized [id number] Closed 11/28/2018 11/28/2019 1 1 Reason for Visit Reason Comments Eye Exam Encounter Details Date Type Department Care Team Description 11/28/2018 Comprehensive Visit Department of Delmar Mulligan Age Rel atenicole Nuclear Ophthalmology in [place] Cataract Bilateral [place], [place] [address] [place] [phone] Social History Tobacco Use Types Packs/Day Years [...] 06/19/2021 organizations such as gnosticist groups, unions, fraIfinity or athletic groups, or school groups? How [...] encounter Progress Notes Delmar Mulligan M.D. - 11/28/2018 10:00 AM CDT Azeb العراقي was seen today for Eye Exam #1 Age Related Nuclear Cataract Bilateral Enlarging and increasingly visually significant, impairing reading and driving. Plan: RTC trial frame and glare testing. cex/ref documented in this encounter Plan of Treatment Upcoming Encounters Date Type Specialty Care Team Description 11/19/2021 Clinical Communication Admitting/Central Scheduling 11/23/2021 Comprehensive Visit Neurology Kenji Zaldivar M.D. [address] [place] [address] Scheduled Referrals Name Type Priority Associated Order Schedule Diagnoses Ophthalmology office Outpatient Referral Routine Expected: visit (clinic) 11/28/2018 (Approximate), Expires: 11/28/2021 documented as of this encounter Visit Diagnoses Diagnosis Age Related Nuclear Cataract Bilateral documented in this encounter
--- OUTSIDE RECORDS SUMMARY | 2021-11-03 07:10 | XMS_ITS | Encounter Summary ---
:1940 Author Organization [facility] Address [address] [place] [address] Care Team Providers Name Role Phone Unavailable Primary Care Provider Unavailable Reason for Visit Reason Comments Eye Exam Outpatient (Routine) - Closed Specialty Diagnoses / Procedures Referred By Contact Refer red To Contact Diagnoses Age Related Nuclear Cataract Bilateral Delmar Mulligan M.D. [address] [place] [address] Referral ID Status Reason Start Date Expiration Date Visits Requ ested Visits Authorized [id number] Closed 01/06/2017 07/05/2017 1 1 Encounter Details Date Type Department Care Team Description 11/30/2017 Comprehensive Visit Department of Delmar Mulligan Dry Eye Syndrome Bilateral (Primary Dx); Ophthalmology in [place] Age Related Nuclear Cataract Bilateral [place], [place] [address] [place] [phone] Social History Tobacco Use Types Packs/Day Years [...] or relatives? How often do you attend baptist or More than 4 times per year 06/19/2021 presybeterian services? Do you belong to any clubs or Yes 06/19/2021 organizations such as baptist groups, unions, fraternal or athletic groups, or [...] encounter Progress Notes Delmar Mulligan M.D. - 11/30/2017 2:45 PM CDT Azeb العراقي was seen today for Eye Exam #1 Age Related Nuclear Cataract Bilateral #2 Dry Eye Syndrome Bilateral Plan: Update glasses as desired. U/v protection. Ocular lubricants twice daily. F/u one year for routine exam or as needed. cex/ref documented in this encounter Plan of Treatment Upcoming Encounters Date Type Specialty Care Team Description 11/19/2021 Clinical Communication Admitting/Central Scheduling 11/23/2021 Comprehensive Visit Neurology Kenji Zaldivar M.D. [address] [place] [address] Scheduled Orders Name Type Priority Associated Diagnoses Order S chedule OPH General eye exam Procedures Routine Age Related Nuclear Expected: 11/30/2018 Cataract Bilateral (Approxim ate), Expires: 2020 documented as of this encounter Visit Diagnoses Diagnosis Dry Eye Syndrome Bilateral - Primary Age Related Nuclear Cataract Bilateral documented in this encounter
--- OUTSIDE RECORDS SUMMARY | 2021-11-03 07:10 | XMS_ITS | Encounter Summary ---
:1940 Author Organization [facility] Address [address] [place] [address] Care Team Providers Name Role Phone Unavailable Primary Care Provider Unavailable Reason for Visit Reason Comments Pancreas appt 06/02 for solid/cystic pa ncreas uncinate mass Previsit Preparation Encounter Details Date Type Department Care Team Description 05/21/2020 Clinical Division of Fredi Pancreas (appt 06/02 Communication Gastroenterology in [place] [facility] for jeannine id/cystic [place], [place] pancreas uncinate [address] [place] ); [place] [address] Preparation [phone] [place] [address] Social History Tobacco Use Types Packs/Day Years [...] Neurology Kenji Zaldivar M.D. 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
--- OUTSIDE RECORDS SUMMARY | 2021-11-03 07:10 | XMS_ITS | Encounter Summary ---
:1940 Author Organization [facility] Address [address] [place] [address] Care Team Providers Name Role Phone Unavailable Primary Care Provider Unavailable Reason for Referral Outpatient (Routine) - Closed Specialty Diagnoses / Procedures Referred By Contact Refer red To Contact Medical Oncology / Diagnoses Lesion Pancreas Dileep Crawford [facility] Oncology Kasey Silva, Ph.D. Referral ID Status Reason Start Date Expiration Date Visits Requ ested Visits Authorized [id number] Closed 05/29/2020 05/29/2021 1 1 utpatient (Routine) - Closed Specialty Diagnoses / Procedures Referred By Contact Refer red To Contact Diagnoses Lesion Pancreas Dileep Crawford M.D., [facility] Procedures EUS Ph.D. Referral ID Status Reason Start Date Expiration Date Visits Requ ested Visits Authorized [id number] Closed 05/21/2020 05/21/2021 1 1 PULLER Reason for Visit Appointment Request (Routine) - Closed Specialty Diagnoses / Referred By Contact Referred To Procedures Contact Gastroenterology and Diagnoses Mass Pancreas Pain Epigastric Loss Weight Abnormal Anorexia Non Psychogenic Antonio Azevedo, Hepat[place] [address] [place] [address] Referral ID Status Reason Start Date Expiration Date Visits Requ ested Visits Authorized [id number] Closed 05/21/2020 05/21/2021 1 1 Encounter Details Date Type Department Care Team Description 05/25/2020 Comprehensive Visit Division of [facility] in Dileep Sliva ([facility]) (Hossein davis [place], [place] Kasey, Ph.D. Dx) [address] [place] [address] Social History Tobacco Use Types Packs/Day Years [...] or relatives? How often do you attend worship or More than 4 times per year 06/19/2021 samaritan services? Do you belong to any clubs or Yes 06/19/2021 organizations such as worship groups, unions, fraternal or athletic groups, or [...] Sign Reading Time Taken Comments Blood Pressure 155/93 05/25/2020 12:52 PM HIDE PULLER Pulse 79 05/25/2020 12:52 PM HIDE PULLER Temperature - - Respiratory Rate - - Oxygen Saturation - - Inhaled Oxygen Concentration - - Weight 53 kg (116 lb 13.5 oz) 05/25/2020 12:52 PM HIDE PULLER Height 165.9 cm (5' 5.32) 05/25/2020 12:52 PM HIDE PULLER Body Mass Index 19.26 05/25/2020 12:52 PM HIDE PULLER documented in this encounter Consult Notes Dileep Crawford M.D., Ph.D. - 05/25/2020 1:10 PM CST REFERRING PROVIDER Antonio Azevedo M.D. [address] [place], [place] [id number] CHIEF COMPLAINT / REASON FOR VISIT Pancreatic mass. HISTORY OF PRESENT ILLNESS Ms. Azeb العراقي is a 80 y.o. female who came to the clinic for an evaluation. #1 pancreatic mass The patient is a 80-year-old female, who comes to the clinic for an evaluation. Since the end of February 2020/beginning of March 2020 the patient started experiencing epigastricabdominal pain (of approximately 5/10 intensity) occasionally radiating to her back that was also associated with a loss of appetite, 13 lbs weight loss and occasional dry heaves/nausea. Subsequently in the end of April she underwent abdominal CT scan that revealed presence of a 1.8 cm mixed solid-cystic lesion arising from the inferior portion of the pancreatic neck encasing the distal celiac artery, common hepatic artery, and sputum mesenteric artery. The SMV was described to be nearly occludedby soft tissue thickening and likely involvement of the left renal vein, IVC, abdominal aorta and main portal vein was described. Furthermore extensive necrotic metastatic lymphadenopathy within the upper abdomen including peripancreatic, aortocaval, and mesenteric lymph nodes was reported ([facility] reviewed). The patient otherwise denies presence of any vomiting, discoloration of stool, jaundice, or any episodes of pancreatitis. Given these radiology results the patient decided to come to the [facility] to undergo a comprehensive evaluation of her pancreatic lesion. PAST MEDICAL HISTORY Past Medical History: Diagnosis Date ??? Cataract ??? Nevus Choroid Left Past Surgical History: Procedure Laterality Date ??? APPENDECTOMY 1960 ??? BLEPHAROPLASTY Bilateral 02/2004 ??? DILATATION AND CURETTAGE FAMILY HISTORY Family History Problem Relation Age of Onset ??? Colon cancer Mother ??? Cataracts Mother ??? Colon cancer Maternal Grandmother ??? Retinal detachment Father's Sister SOCIAL HISTORY Social History Socioeconomic History ??? Marital status: Spouse name: Not on file ??? Number of children: Not on file ??? Years of education: Not on file ??? Highest education level: Not on file Occupational History ??? Not on file Social Needs ??? Financial resource strain: Not on file ??? Food insecurity Worry: Not on file Inability: Not on file ??? Transportation needs Medical: Not on file Non-medical: Not on file Tobacco Use ??? Smoking status: Never Smoker ??? Smokeless tobacco: Never Used Substance and Sexual Activity ??? Alcohol use: Yes ??? Drug use: No ??? Sexual activity: Not on file Lifestyle ??? Physical activity Days per week: Not on file Minutes per session: Not on file ??? Stress: Not on file Relationships ??? Social connections Talks on phone: Not on file Gets together: Not on file Attends samaritan service: Not on file Active member of club or organization: Not on file Attends meetings of clubs or organizations: Not on file Relationship status: Not on file ??? Intimate partner violence Fear of current or ex partner: Not on file Emotionally abused: Not on file Physically abused: Not on file Forced sexual activity: Not on file Other Topics Concern ??? Not on file Social History Narrative ??? Not on file REVIEW OF SYSTEMS All systems have been reviewed and are negative, except those mentioned above in the HPI. OBJECTIVE BP (!) 155/93 Pulse 79 Ht 165.9 cm Wt 53 kg BMI 19.26 kg/m?? PHYSICAL EXAM Constitutional: The patient is oriented to person, place, and time; appears well-developed, well-nourished and is in no acute distress. HENT: Normocephalic, atraumatic. No scleral icterus. Abdominal: Soft, nondistended, no tenderness to palpation. There is no rebound and no guarding. Skin: No jaundice Psychiatric: Normal mood, affect, speech and behavior. The patient's judgment, thought content, cognition and memory are normal. ASSESSMENT/PLAN Ms. Azeb العراقي is a 80 y.o. female who came to the clinic for an evaluation. #1 pancreatic mass Today together with Dr. Jara we spoke with the patient about the results of her most recent abdominal imaging. We informed the patient about the basic facts relating to pancreatic masses, and shared with the patient that such findings are highly concerning for pancreatic malignancy (particularly adenocarcinoma). We informed the patient that in order to precisely characterize and diagnose her pancreatic mass she would need to undergo endoscopic ultrasound with biopsy. After discussing the needs, benefits, and risks associated with such procedure the patient agreed to undergo such procedure. In the meantime the patient must remain vigilant for presence of any new or alarming symptoms including, but not limited to, unintentional weight loss, jaundice, pancreatitis. If any of those appear the patientshould never ignore them but seek prompt medical attention. Once results of her pancreatic evaluation are known further next steps will be discussed. The patient acknowledged understanding of all provided information, agreed to the plan, and asked few additional questions, which were answered. PATIENT EDUCATION Ready to learn, no apparent learning barriers were identified; learning preferences include listening. Explained diagnosis and treatment plan; patient expressed understanding of the content. Supervising Zinc Plate Grainer: Dr. Hayden Jara. Electronically signed: Dileep Crawford M.D., Ph.D. PULLER Tonie Jara M.D. - 05/25/2020 1:10 PM CST Outpatient Supervisory Note Date of Consultation: 05/25/2020 Referring Physician: Antonio Azevedo M.D. This is a supervisory note for Javed. I have reviewed the available records, interviewed and examined the patient. I agree with the chief complaint, history of present illness, past medical and surgical history, medications, physical examination, and impression/plan as outlined in Javed's note dated today. Chief Complaint/Reason for Consult: Lesion Pancreas (HCC) [K86.89] History of Present Illness: Ms. العراقي is a very pleasant 80 y.o. female. The encounter diagnosis was Lesion Pancreas (HCC). Assessment/Plan: #1 Lesion Pancreas (HCC) Ms. العراقي is a very pleasant 80 y.o. female who presents for evaluation and management of Lesion Pancreas (HCC) [K86.89]. 80-year-old reasonably healthy fit lady has been having dyspepsia since fall of last year. She has dyspepsia in the epigastric region discomfort 4-5 on a scale of 10 with occasional radiation to the back. She lost appetite and lost also 13 lb weight. She has dry heaves. CT scan was done end of April. She has very thin abdominal wall and pancreas is anteriorly placed. Posterior aspect of the neck of the pancreas is a 1.8 cm solid as well as cystic mass which is encasing the celiac artery common hepatic artery superior mesenteric artery. Portal vein left adrenal vein aorta have been involved. Extensive metastatic necrotic lymph nodes. Plan: Talked to her and her that this looks most likely like pancreatic cancer. We need to do the blood work including CA 19-9, EUS with fine-needle aspiration cytology to confirm the diagnosis, thenhave the surgical oncologist as well as medical oncologist see her as she is most likely a candidatefor neoadjuvant therapy. They understand and want to proceed. PULLER documented in this encounter Miscellaneous Notes Addendum Note - Dileep Crawford M.D., Ph.D. - 05/25/2020 1:10 PM HIDE PULLER Addended by: DILEEP CRAWFORD on: 05/29/2020 09:16 AM Modules accepted: Orders PULLER documented in this encounter Plan of Treatment Upcoming Encounters Date Type Specialty Care Team Description 11/19/2021 Clinical Communication Admitting/Central Scheduling 11/23/2021 Comprehensive Visit Neurology Kenji Zaldivar M.D. [address] [place] [address] Scheduled Referrals Name Type Priority Associated Diagnoses Order S chedule Oncology - Outpatient Referral Routine Lesion Pancreas Expec hever: Medical, GI (HCC) 05/29/2020 consult (clinic) (Approximat e), Expires: 05/30/2023 documented as of this encounter Results CRP (C-Reactive Protein) (05/25/2020 3:15 PM HIDE PULLER) P athologist Signature C-Reactive <3.0 <=8.0 mg/L 05/25/2020 DTL Protein (CRP), 4:04 PM HIDE PULLER S Specimen Anatomical Collection Method Collection Time Receive d Time (Source) Location / / Volume Laterality Blood (Blood, 05/25/2020 3:15 PM 05/26/19 3:37 Venous) HIDE PULLER PM HIDE PULLER Dileep Crawford M.D., Ph.D. LAB BLOOD ADD-ON Performing Organization Address City/[facility] Phon e Number [facility] - [address] [place], [place] [address] [facility] [place] [place] [address] Laboratories-[facility] [address] [facility] (ABNORMAL) Prothrombin Time (PT) (05/25/2020 3:15 PM HIDE PULLER) [facility] Method Time Signature Prothrombin 13.5 (H) 9.4 - 12.5 05/25/2020 DTL Time, P sec 4:09 PM HIDE PULLER INR 1.2 0.9 - 1.1 05/25/2020 DTL 4:09 PM HIDE PULLER Comment: ----ADDITIONAL INFORMATION---- Standard intensity warfarin therapeutic range: 2.0 to 3.0 ?? High intensity warfarin therapeutic rang e: 2.5 to 3.5 Specimen Anatomical Collection Method Collection Time Receive d Time (Source) Location / / Volume Laterality Blood (Blood, 05/25/2020 3:15 PM 05/26/19 3:37 Venous) HIDE PULLER PM HIDE PULLER Dileep Crawford M.D., Ph.D. LAB BLOOD ADD-ON Performing Organization Address City/[facility] Phon e Number [facility] - [address] [place], [place] [address] [facility] [place] [place] [address] Laboratories-[facility] [address] [facility] (ABNORMAL) Carbohydrate Antigen 19-9 (CA 19-9) (05/25/2020 3:15 PM HIDE PULLER) [facility] Method Time Signature Carbohydrate Ag 178 (H) <35 U/mL 05/25/2020 SDSC 19-9, S 6:45 PM HIDE PULLER Comment: ----ADDITIONAL INFORMATION---- The testing method is an immunoenzymatic assay manufactured by [employer] and performed on the [employer] DxI 800. ? Values obtained with different assay met hods or kits may be different and cannot be used inte rchangeably. ? Test results cannot be interpreted as ab solute evidence for the presence or absence of malignant disease. Specimen Anatomical Collection Method Collection Time Receive d Time (Source) Location / / Volume Laterality Blood (Blood, 05/25/2020 3:15 PM 05/26/19 5:56 Venous) HIDE PULLER PM HIDE PULLER Dileep Crawford M.D., Ph.D. LAB BLOOD ADD-ON Performing Organization Address City/State/ZIP Code Phon e Number [facility] [address] [place], [place] [address] [facility] [place] [address] Laboratory Medicine and Pathology [address] [place] (ABNORMAL) Comprehensive Metabolic Panel (05/25/2020 3:15 PM HIDE PULLER) athologist Signature Potassium, S 4.0 3.6 - 5.2 05/25/2020 DTL mmol/L 4:04 PM HIDE PULLER Sodium, S 141 135 - 145 05/25/2020 DTL mmol/L 4:04 PM HIDE PULLER Chloride, S 98 98 - 107 05/25/2020 DTL mmol/L 4:04 PM HIDE PULLER Bicarbonate, S 27 22 - 29 05/25/2020 DTL mmol/L 4:04 PM HIDE PULLER Anion Gap 16 (H) 7 - 15 05/25/2020 DTL 4:04 PM HIDE PULLER BUN (Blood Urea 12 6 - 21 05/25/2020 DTL Nitrogen), S mg/dL 4:04 PM HIDE PULLER Creatinine, S 1.02 0.59 - 05/25/2020 DTL 1.04 mg/dL 4:04 PM HIDE PULLER eGFR-Non 53 (L) >=60 05/25/2020 DTL Black/ mL/min/BSA 4:04 PM HIDE PULLER Panamanian Comment: ----ADDITIONAL INFORMATION---- Estimated GFR calculated using the 2009 CKD_EPI creatinine equation. eGFR-Black/ 61 >=60 mL/min/BSA 2020 4:04 PM HIDE PULLER DTL Comment: ----ADDITIONAL INFORMATION---- Estimated GFR calculated using the 2009 CKD_EPI creatinine equation. Calcium, Total, S 6.7 (L) 8.8 - 10.2 mg/dL 05/25/2020 4:04 PM HIDE PULLER DTL Glucose, S 93 70 - 140 mg/dL 05/25/2020 4:04 PM HIDE PULLER D TL Protein, Total, S 7.2 6.3 - 7.9 g/dL 05/25/2020 4:04 P M HIDE PULLER DTL Albumin, S 4.7 3.5 - 5.0 g/dL 05/25/2020 4:04 PM HIDE PULLER D TL Aspartate Aminotransferase 42 8 - 43 U/L 05/25/2020 4 :04 PM HIDE PULLER DTL (AST), S Alkaline Phosphatase, S 62 35 - 104 U/L 05/25/2020 4: 04 PM HIDE PULLER DTL Alanine Aminotransferase 42 7 - 45 U/L 05/25/2020 4:0 4 PM HIDE PULLER DTL (ALT), S Bilirubin, Total, S 0.3 <=1.2 mg/dL 05/25/2020 4:04 PM HIDE PULLER DTL Specimen Anatomical Collection Method Collection Time Receive d Time (Source) Location / / Volume Laterality Blood (Blood, 05/25/2020 3:15 PM 05/26/19 3:37 Venous) HIDE PULLER PM HIDE PULLER Dileep Crawford M.D., Ph.D. LAB BLOOD ADD-ON Performing Organization Address City/State/ZIP Code Phon e Number [facility] - [address] [place] [address] [facility] [place] [address] Laboratories-[address] (ABNORMAL) CBC with Differential, Blood (05/25/2020 3:15 PM HIDE PULLER) [facility] gist Method Time Signature Hemoglobin 11.2 (L) 11.6 - 05/25/2020 DTL 15.0 g/dL 3:44 PM HIDE PULLER Hematocrit 34.2 (L) 35.5 - 05/25/2020 DTL 44.9 % 3:44 PM HIDE PULLER Erythrocytes 3.57 (L) 3.92 - 05/25/2020 DTL 5.13 3:44 PM HIDE PULLER x10(12)/L MCV 95.8 78.2 - 05/25/2020 DTL 97.9 fL 3:44 PM HIDE PULLER RBC Distrib Width 13.1 12.2 - 05/25/2020 DTL 16.1 % 3:44 PM HIDE PULLER Platelet Count 309 157 - 371 05/25/2020 DTL x10(9)/L 3:44 PM HIDE PULLER Leukocytes 7.9 3.4 - 9.6 05/25/2020 DTL x10(9)/L 3:44 PM HIDE PULLER Neutrophils 6.07 1.56 - 05/25/2020 DTL 6.45 3:44 PM HIDE PULLER x10(9)/L Lymphocytes 0.96 0.95 - 05/25/2020 DTL 3.07 3:44 PM HIDE PULLER x10(9)/L Monocytes 0.80 0.26 - 05/25/2020 DTL 0.81 3:44 PM HIDE PULLER x10(9)/L Eosinophils 0.03 0.03 - 05/25/2020 DTL 0.48 3:44 PM HIDE PULLER x10(9)/L Basophils 0.03 0.01 - 05/25/2020 DTL 0.08 3:44 PM HIDE PULLER x10(9)/L Specimen Anatomical Collection Method Collection Time Receive d Time (Source) Location / / Volume Laterality Blood (Blood, 05/25/2020 3:15 PM 05/26/19 21 3:37 Venous) HIDE PULLER PM HIDE PULLER Dileep Crawford M.D., Ph.D. LAB BLOOD ADD-ON Performing Organization Address City/State/ZIP Code Phon e Number [facility] - [address] [place], [place] [address] [facility] [place] [address] Laboratories-[facility] [address] Interpretation of Outside CT Abdomen and or Pelvis (05/21/2020 3:14 PM HIDE PULLER) Anatomical Region Laterality Modality Abdomen, Pelvis, Abdominal RST LOS, Abdominal ARZ LOS, N/A Computed Tomography Abdominal FLA LOS, Other Specimen (Source) Anatomical Collection Method Collection Time Re ceived Time Location / / Volume Laterality 05/22/2020 9:51 AM HIDE PULLER Impressions 05/22/2020 10:14 AM HIDE PULLER 1. Mixed cystic and solid lesion appears to arise from the inferior pancreatic neck presumably represents the patient's primary tumor, with extensive soft tissue infiltration throughout the upper abdomen and extensive centrally necrotic lymphadenopathy. This is highly suspicious for adenocarcinoma, potentially arising from an IPMN given t he appearance of the mass. Recommend correlation with upcoming EUS. 2. Significant vascular involvement of t he mass, as described in the findings. This is most prominent at the superior m esenteric vein where there is near occlusion. 3. No definite hepatic metastases. There is a 0.4 cm hypodense lesion in segment VIII which may represent a cyst but is t oo small to accurately characterize. Narrative 05/22/2020 10:14 AM HIDE PULLER EXAM: ??INTERPRETATION OF OUTSIDE CT ABDOMEN AND OR PELVIS COMPARISON: ??None available FINDINGS: ??Interpretation of outside CT abdomen/pelvis with IV contrast dated 05/20/2020. There is a mixed solid and cystic lesion at the inferior aspect of the pancreatic neck measuring approximately 1.8 x 1.5 x 1.8 cm (series 2, 73). This appears to be within the pancreas (serie s 300, image 29) and presumably represents the primary tumor. No signifi cant pancreatic duct dilatation upstream of the mass. No significant pancreatic a trophy. There is extensive soft tissue infiltration within the upper abdomen wh ich likely encases the distal celiac artery, common hepatic artery, and super ior mesenteric artery. The SMV is nearly occluded by soft tissue thickening (seri es 2, 71), with peripancreatic collaterals and a dilated IMV. Additiona lly, there is likely involvement of the left renal vein, IVC, abdominal aorta, a nd main portal vein. Extensive necrotic metastatic lymphadeno heather within the upper abdomen including peripancreatic, aortocaval, left periaor tic, and mesenteric lymph nodes. For instance, there is a 0.8 cm centrally ne crotic lymph node just anterior to the abdominal aorta (series 2, image 50). A 1.5 cm axis lymph node between the pancreatic head and duodenum is centrall y necrotic and likely metastatic (series 2 image 71). The AP dimension of the abdomen is sever henry narrowed, with only 6.5 cm between the anterior vertebral body and anterior abdominal skin surface. This pushes the pancreas anteriorly and causes compressi on of the distal stomach and proximal duodenum, without definite obstruction. Tiny hypodense lesion in segment VIII measuring 0.4 cm may represent a cyst bu t is too small to characterize with CT (series 2, image 22). No definite additi onal focal hepatic lesion. Patent hepatic and portal veins. Small presumed cyst in the inferior spleen. Bilateral renal cysts. Negative adrenal glands and gallbladder. No significant biliary duct dilatation. Trace free fluid within pelvis. Presumed uterine fibroid. Mild additional calcifications. No suspicious osseous le stiven. Degenerative changes of the spine. Bilateral fat-containing Bochdalek herni as. Bilateral lung bases are clear. Dileep Crawford M.D., Ph.D. IMG CT PROCEDURES documented in this encounter Visit Diagnoses Diagnosis Lesion Pancreas Lesion Pancreas - Primary documented in this encounter Additional Health Concerns Infection Onset Date Last Indicated Resolved Time COVID19 Pending 05/25/2020 05/25/2020 05/26/2020 9:52 AM HIDE PULLER documented as of this encounter
--- OUTSIDE RECORDS SUMMARY | 2021-11-03 07:10 | XMS_ITS | Encounter Summary ---
:1940 Author Organization [facility] Address [address] [place] [address] Care Team Providers Name Role Phone Unavailable Primary Care Provider Unavailable Encounter Details Date Type Department Care Team Description 12/18/2015 Historical Ophthalmology [facility] Delmar Mulligan M.D. [address] [place], [place] [phone] (Wo rk) Social History Tobacco Use Types Packs/Day Years Used Date Smoking Tobacco: Never Assessed Alcohol Habits Answer Date Recorded How often [...] encounter Progress Notes Delmar Mulligan M.D. - 12/18/2015 3:30 PM CDT Eye General CHIEF COMPLAINT trial frame/glare test IMPRESSION / REPORT / PLAN #1 Cataracts, nuclear both eyes. Glare testing today without evidence of visually impairing glare and equivocal improvement with trial frame. #2 Choroidal nevus, left eye. Stable, Plan: Optional change glasses. F/u one year. n/c DIAGNOSIS #1 Cataracts, nuclear both eyes. Glare testing today without evidence of visually impairing glare and equivocal improvement with trial frame. #2 Choroidal nevus, left eye. CDM Reports - EYEGEN Id: [id number] Status: Fnl documented in this encounter Plan of Treatment Upcoming Encounters Date Type Specialty Care Team Description 11/19/2021 Clinical Communication Admitting/Central Scheduling 11/23/2021 Comprehensive Visit Neurology Kenji Zaldivar M.D. [address] [place] [address] documented as of this encounter Visit Diagnoses Not on filedocumented in this encounter
--- OUTSIDE RECORDS SUMMARY | 2021-11-03 07:10 | XMS_ITS | Encounter Summary ---
:1940 Author Organization [facility] Address [address] [place] [address] Care Team Providers Name Role Phone Elsewhere, Pcp Primary Care Provider Unavailable Encounter Details Date Type Department Care Team Description 12/22/2016 Historical Ophthalmology [facility] Delmar Mulligan M.D. [address] [place], [place] [phone] (Wo rk) Social History [...] encounter Progress Notes Delmar Mulligan M.D. - 12/22/2016 10:49 AM CDT Eye General CHIEF COMPLAINT CE HISTORY OF PRESENT ILLNESS Vision was improved with new lenses last year, but seems less clear again now. IMPRESSION / REPORT / PLAN #1 Cataracts, nuclear both eyes. #2 Choroidal nevus, left eye. Stable, Plan: Update glasses. U/v protection. F/u one year. CE/ref CDM Reports - EYEGEN Id: [id number] Status: Fnl documented in this encounter Plan of Treatment Upcoming Encounters Date Type Specialty Care Team Description 11/19/2021 Clinical Communication Admitting/Central Scheduling 11/23/2021 Comprehensive Visit Neurology Kenji Zaldivar M.D. 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
--- OUTSIDE RECORDS SUMMARY | 2021-11-03 07:10 | XMS_ITS | Encounter Summary ---
:1940 Author Organization [facility] Address [address] [place] [address] Care Team Providers Name Role Phone Unavailable Primary Care Provider Unavailable Encounter Details Date Type Department Care Team Description 05/21/2020 Documentation Division of Gastroenterology Ravinder Rai, in [facility] blossom Parks [address] [facility] [address] [place] [address] [place], [place] [phone] Social History Tobacco Use Types Packs/Day Years [...] documented as of this encounter Progress Notes Yesica Andino R.N. - 05/21/2020 11:14 AM CST PANCREAS PRE-CLINIC VISIT NOTE # [id number] Date of : 1940 (80 y.o.) Azeb العراقي Pancreas Provider/Appointment Date Dr. Jara 05/25/2020 1:10 Referring Service /Self-Referred: Antonio Azevedo M.D. [address] [place] [phone] (Office) Indication: Pancreas mass no biopsy has been done, epigastric pain, abnormal weight loss, dry heaves History: Telephone call. Identified patient using two patient identifiers. Patient's home number is [phone]. Brief pre-visit questions taken on 05/21/2020 in preparation of appointment in Pancreas clinic with Dr. Rai. Patient is a very pleasant 80 year old female who had lost 13 pounds since March 27 with dry heaves and stomach ache. She had an office visit on 05/20/2020 for stomach ache and wretching every morning, [address] abdomen/pelvis was performed which noted a (2.8 x 3.0 cm) complex solid and cystic pancreatic uncinate process mass with associated segmental narrowing of the adjacent narrowing of the adjacent superior mesenteric vein and retroperitoneal adenopathy consistent with pancreatic adenocarcinoma. She is coming here for further evaluation and treatment. Initial diagnosis date: CT abdomen/pelvis scan dated 05/20/2020 Pancreas biopsy/FNA/brushing: No Current symptoms: - Abdominal pain: Epigastric pain , at the navel area , today ???5?? - Indigestion: No now - Back Pain: by end of day goes around to the side - Weight loss:. 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 History of cholecystectomy: No Pain management: Tylenol helps relieve the pain. History of diabetes: No Pacemaker or use of blood thinners: No History of pancreatitis or other cancers: No Pre-cancerous mole removed in the past . Labs 05/15/2020 Lipase 179.6 (8-78.0) LFT???s. ;normal Calcium: 11.4 low BUN 21 Glucose 162 Magnesium: low Radiology imaging/procedures (CT, MRI/MRCP, EUS/ERCP): 05/20/2020 CT abdomen/pelvis for epigastric pain, nausea and vomiting. Complex solid and cystic pancreatic uncinate process mass measuring approximately 2.8 x 3.0 centimeters with associated segmental narrowing of the adjacent superior mesenteric vein and retroperitoneal adenopathy most consistent with pancreatic adenocarcinoma. Bile duct stent placed: No Previous treatment with radiation, chemotherapy or pancreas surgery: No Family history of pancreatitis, pancreas cancer: No Any genetic testing: No Other medical/surgical information: MEDICAL HISTORY Solid/cystic mass noted on CT 05/20/2020 Weight loss Hypertension Hypothyroidism Osteoporosis Osteoarthritis Colon polyps , last colonoscopy SURGICAL HISTORY Appendectomy 1960 Dilatation and Curettage x 2, miscarriages Bilateral Blepharoplasty Colonoscopy SOCIAL HISTORY . 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 Never smoker. Alcohol Yes, very seldom. None since first week of February. FAMILY HISTORY Father: Leukemia Mother: of [place], colon cancer, Thyroid cancer, stomach cancer, uterine cancer, cataracts MGM: colon cancer Father???s sister: retinal detachment Faxes: [employer] [place], [place] p) [phone], (f) [phone] images. [employer] documented in this encounter Plan of Treatment Upcoming Encounters Date Type Specialty Care Team Description 11/19/2021 Clinical Communication Admitting/Central Scheduling 11/23/2021 Comprehensive Visit Neurology Kenji Zaldivar M.D. [address] [place] [address] documented as of this encounter Visit Diagnoses Not on filedocumented in this encounter
--- OUTSIDE RECORDS SUMMARY | 2021-11-03 07:10 | XMS_ITS | Encounter Summary ---
:1940 Author Organization [facility] Address [address] [place] [address] Care Team Providers Name Role Phone Unavailable Primary Care Provider Unavailable Reason for Visit Appointment Request (Routine) - Closed Specialty Diagnoses / Procedures Referred By Contact Refer red To Contact Ophthalmology Referral ID Status Reason Start Date Expiration Date Visits Requ ested Visits Authorized [id number] Closed 02/23/2018 02/23/2019 1 Encounter Details Date Type Department Care Team Description 02/23/2018 Office Visit Department of Delmar Mulligan Ophthalmoplegi c Migraine Not Intractable (Primary Dx); Ophthalmology in [place] Detachment Vitreous Posterior Left [place], [place] [address] [place] [address] [place], [place] [phone] Social History Tobacco Use Types Packs/Day [...] together with friends Three times a wee chago 06/19/2021 or relatives? How often do you [...] encounter Progress Notes Delmar Mulligan M.D. - 02/23/2018 1:30 PM CST Azeb العراقي was seen today for No chief complaint on file. 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 No evidence of peripheral breaks or tears on extended ophthalmoscopy. Plan: Retinal detachment precautions reviewed. F/u for dilated exam in six to eight weeks. [employer] documented in this encounter Plan of Treatment Upcoming Encounters Date Type Specialty Care Team Description 11/19/2021 Clinical Communication Admitting/Central Scheduling 11/23/2021 Comprehensive Visit Neurology Kenji Zaldivar M.D. 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
--- OUTSIDE RECORDS SUMMARY | 2021-11-03 07:10 | XMS_ITS | Encounter Summary ---
:1940 Author Organization [facility] Address [address] [place] [phone] Care Team Providers Name Role Phone Unavailable Primary Care Provider Unavailable Reason for Referral Outpatient (Routine) Specialty Diagnoses / Procedures Referred By Contact Refer red To Contact Oncology Kimberly Rios APRN, C.NJasson, [facility] [address] [place] [phone] Referral ID Status Reason Start Date Expiration Date Visits Requ ested Visits Authorized utpatient (Routine) Specialty Diagnoses / Procedures Referred By Contact Refer red To Contact Oncology Kimberly Rios APRN, C.NAbdirashid., [facility] [address] [place] [phone] Referral ID Status Reason Start Date Expiration Date Visits Requ ested Visits Authorized MANAGER Specialty Diagnoses / Procedures Referred By Contact Refer red To Contact Kimberly Rios APRN, C.N.P., [facility] [address] [place] [phone] Referral ID Status Reason Start Date Expiration Date Visits Requ ested Visits Authorized utpatient (Routine) - Closed Specialty Diagnoses / Procedures Referred By Contact Refer red To Contact Radiology Diagnoses Lesion Pancreas Kimberly Rios APRN, [facility] Procedures IR Implanted Vascular Access Device Placement C.Bhargav, M.S. [address] [place] [address] Referral ID Status Reason Start Date Expiration Date Visits Requ ested Visits Authorized [id number] Closed 06/03/2020 06/03/2021 1 1 MANAGER Reason for Visit Outpatient (Routine) - Closed Specialty Diagnoses / Procedures Referred By Contact Refer red To Contact Medical Oncology / Diagnoses Lesion Pancreas Yasir Daley [facility] Oncology Kasey Silva, Ph.D. Referral ID Status Reason Start Date Expiration Date Visits Requ ested Visits Authorized [id number] Closed 05/29/2020 05/29/2021 1 1 Encounter Details Date Type Department Care Team Description 06/03/2020 Comprehensive Visit Department of [facility] Maligna nt Neoplasm Of Pancreas Adenocarcinoma (HCC) (Primary Dx); Oncology in [facility] Lesion Pancreas (HCC); [address] Secondary Malignant Neoplasm Lymph Node (HCC) [place], [place] [address] [place] [phone] [place], [place] [phone] (Work) [phone] Social History Tobacco Use Types Packs/Day Years [...] or relatives? How often do you attend jehovah's witness or More than 4 times per year 06/19/2021 episcopal services? Do you belong to any clubs or Yes 06/19/2021 organizations such as jehovah's witness groups, unions, fraternal or athletic groups, or [...] documented as of this encounter Consult Notes [facility] M.B.B.S. 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 Azeb العراقي was seen and evaluated with Ms. Rios. I concur with the assessment, evaluation, and recommendations of the care team provider stated in this note. The oncologic history is as below: Oncology History Malignant Neoplasm Of Pancreas Adenocarcinoma [...] periaortic, and mesenteric lymph nodes was reported ([facility] review). 3.) 05/25/2020 CA [id number] 05/28/2020 Biopsy/Pathology EUS findings-Retroperitoneally growing mass extending from the pancreas with infiltration of almostall abutting major arteries and veins. Multiple malignant appearing nodes, ascites, likely omental deposits. No solid hepatic masses seen. Pancreas, Neck, EUS/FNA: Adenocarcinoma Lymph Node, Celiac, EUS/FNA: Metastatic Adenocarcinoma 06/08/2020 - Chemotherapy FOLFIRINOX ( Fluorouracil / Leucovorin / Irinotecan / Oxaliplatin ) Start Date: 06/08/2020 (Planned) To summarize, Azeb العراقي is a 80 y.o. female with recently diagnosed metastatic pancreas cancer with extensive abdominal lymph node involvement here for consultation and management. She had a history of hypoparathyroidism, and presented with epigastric discomfort, anorexia and significant weight loss. Further workup showed an infiltrative, locally advanced pancreas mass with major vessel involvement. FNA biopsy of the pancreas mass and celiac lymph node confirmed adenocarcinoma. Imaging showed mass arising from the inferior pancreatic neck with extensive soft tissue infiltration throughout the upper abdomen and extensive centrally necrotic lymphadenopathy. There was also significant vascular involvement. Her ECOG performance status is 1 and is currently managing her epigastric discomfort with analgesics. The EUS on May 28, 2020 also identified multiple malignant-appearing lymph nodes, ascites and also likely omental deposits. We discussed about the incurable nature of her disease and radiation/surgery are not recommended at this time. We discussed about systemic chemotherapy of FOLFIRINOX and gemcitabine plus Abraxane. We also discussed about clinical trial option. 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 We discussed about appropriate dose adjustment for her neuropathy. Patient verbalized wish to proceed with FOLFIRINOX and MediPort placement. We will tentatively plan for FOLFIRINOX to start next Monday. MANAGER Kimberly Rios APRN, C.N.P., M.S. - 06/03/2020 10:00 AM CST SUBJECTIVE PRIMARY CARE PHYSICIAN No primary care provider on file. REQUESTING PROVIDER Yasir Daley M.D., Ph.D. [address] [place] [address] [place] [phone] LOCAL ONCOLOGIST No care team foreman to display PRIMARY [place] ONCOLOGIST [facility] M.B.B.S. REASON FOR CONSULT Azeb العراقي is a 80 y.o. female who presents for evaluation of metastatic unresectable, locally advanced pancreatic adenocarcinoma to lymph nodes. HISTORY OF PRESENT ILLNESS Oncology History Oncology [...] periaortic, and mesenteric lymph nodes was reported ([facility] review). 3.) 05/25/2020 CA [id number] 05/28/2020 Biopsy/Pathology EUS findings-Retroperitoneally growing mass extending from the pancreas with infiltration of almostall abutting major arteries and veins. Multiple malignant appearing nodes, ascites, likely omental deposits. No solid hepatic masses seen. Pancreas, Neck, EUS/FNA: Adenocarcinoma Lymph Node, Celiac, EUS/FNA: Metastatic Adenocarcinoma 06/08/2020 - Chemotherapy FOLFIRINOX ( Fluorouracil / Leucovorin / Irinotecan / Oxaliplatin ) Start Date: 06/08/2020 (Planned) Cancer Staging No matching staging information was found for the patient. ONC General HPI Ms. العراقي states that she continues to have pain in the right mid quadrant for which she takes 1 Tylenol twice daily. She also has some nausea and food has no appeal. She retching is daily. She has lostapproximately 14 lb since March. Reports her bowels have been moving daily without any blood or mucus. She denies any changes in her urination. Denies chest pain, shortness of breath, lower extremityedema, elevated temperature or night sweats. The following portions of the patient's history were reviewed and updated as appropriate: allergies,current medications, family history, medical history, social history, surgical history and problem list. MEDICATIONS Current Outpatient Medications on File Prior to Visit Medication Sig Dispense Refill ??? CALCIUM CITRATE ORAL Citracal ??? CHOLECALCIFEROL, VITAMIN D3, ORAL Vitamin D3 1000 intl units oral tablet ??? levothyroxine sodium (LEVOTHYROXINE ORAL) Synthroid ??? lisinopriL (PRINIVIL,ZESTRIL) 20 mg tablet Take 20 mg by mouth. ??? magnesium oxide (MAG-OX) 400 mg (241.3 mg magnesium) tablet Take 400 mg by mouth. ??? NON FORMULARY Estriol 0.3% Vaginal Cream, compounded. 1 gram vaginally nightly for 7 days, then 3 nights each week. Disp. 30 g, 11 refills 30 g 11 No current facility-administered medications on file prior to visit. VITALS There were no vitals filed for this visit. No data recorded REVIEW OF SYSTEMS REVIEW OF SYSTEMS OBJECTIVE There were no vitals taken for this visit. PHYSICAL EXAM General: Well-appearing 80-year-old, female who is in no acute distress. ECOG 0. Skin: No open lesions, petechiae or bruising. Eyes: Sclera is clear bilaterally. ENT: Moist intact mucous membranes. Lymph: No adenopathy in the neck, supraclavicular, or axillary areas. Heart: Regular rate/rhythm; no clicks, rubs or gallops. Lungs: Clear to auscultation bilaterally. Abdomen: Soft, intact with normal bowel sounds in all 4 quadrants. No hepatosplenomegaly appreciated. Spine: No pain to deep palpation. Extremities: No evidence of edema bilaterally. LABORATORY DATA Laboratory data reviewed. RADIOLOGICAL DATA Radiology data reviewed. 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 In February of 2020 she noted increasing epigastric abdominal pain that radiated to her back. This was associated with the weight loss of 13 lb. At that time this was thought to be related to the parathyroid issue. April [address] of the abdomen and pelvis were she is noted to have a mixed solid-cystic lesion measuring 1.8 cm in the neck of the pancreas. There is extensive soft tissue infiltration likelyencasing the distal celiac artery, common hepatic artery, SMA and SMV is nearly occluded by the softtissue thickening. Peripancreatic, aortocaval, left periaortic and mesenteric lymphadenopathy suggestive of metastasis. [id number]. May 28, 2020 underwent an EUS where she was noted to have a mass growing from the pancreas and infiltrating almost all abutting major arteries and veins. Multiple malignant-appearing lymph nodes with possible omental deposits. FNA of the pancreas and celiac lymph node positive for adenocarcinoma. Prior to meeting with Ms. العرقاي I had the opportunity to review her past medical records, laboratory tests imaging studies. I have also reviewed the case in its entirety with Dr. Vivar, who is in full agreement with the following plan. We discussed the natural history of cancer diagnosis. We discussed theimplications of a locally advanced pancreatic adenocarcinoma with biopsy-proven lymph node metastasis. At this level of disease involvement surgery is not a possibility for cure. We discussed that the intent of therapy is to slow the cancer down and control it. I reviewed with her the standard chemotherapy treatment regimens of FOLFIRINOX or gemcitabine Abraxane therapy. I also reviewed with her the clinical trial we have available metastatic pancreatic adenocarcinoma. She understands will need to have a Port-A-Cath placed. She would like to start therapy assoon as possible. I did review with her the potential side effects of the therapies which do includebut are not limited to decreased blood counts, nausea, vomiting, we cold sensitivity, neuropathy, hair loss and fatigue. In regards to the episodes of retching I wonder if she is experiencing delayed gastric emptying. I did review with her to treat this sometimes we put in a stent however when there is a stent in place she has to be careful what type of food products she eats. I did share with her that frequently systemic therapy can shrink the tumor and hopefully that will allow the gastric contents to flow more freely. She is questioning if she could receive chemotherapy in [facility]. Certainly could receive any standard therapies at that facility. She will contemplate where she wants her therapy administered. To begin with we will go ahead and get port placed. Tentatively make arrangements for chemotherapy to start next week. We can then transition to [place] at any time. She understands that we willtreat her for 2-3 months and then repeat imaging studies. She is in full agreement with the plan. Denies any further questions or concerns. Has our telephone number to contact us should they have any further questions or concerns. Discussed with the patient we work together as a care team of physicians, nurse practitioners/physician assistants, nurses and other desktop support consultant that specialize in this cancer. Also, reviewed the importance of maintaining ongoing care with local oncology team and primary care physician. PATIENT EDUCATION Ready to learn, no apparent learning barriers were identified; learning preferences include listening. Explained diagnosis and treatment plan; patient expressed understanding of the content. ADMINISTRATIVE BILLING I personally spent over half of a total 65 minutes face to face with the patient in counseling and discussion and/or coordination of care as described above. MANAGER documented in this encounter Plan of Treatment Upcoming Encounters Date Type Specialty Care Team Description 11/19/2021 Clinical Communication Admitting/Central Scheduling 11/23/2021 Comprehensive Visit Neurology Kenji Zaldivar M.D. [address] [place] [phone] Scheduled Referrals Name Type Priority Associated Diagnoses Order S chedule Oncology - Chemo Outpatient Referral Routine Malignant Neoplas m Of Expected: education visit Pancreas Adenocarcinoma 0 06/07/2020, (clinic) (HCC) Expires: 06/07/2021 Oncology office Outpatient Referral Routine Malignant Neoplasm Of Expected: visit (clinic) Pancreas Adenocarcinoma , (HCC) Expires: 06/22/2021 Oncology nurse Outpatient Referral Routine Malignant Neoplasm Of Expected: visit (clinic) Pancreas Adenocarcinoma , (HCC) Expires: 07/07/2023 documented as of this encounter Results Bilirubin, Direct (07/07/2020 7:43 AM CDT) P athologist Signature Bilirubin, <0.2 0.0 - 0.3 07/07/2020 DTL Direct, S mg/dL 8:28 AM CDT Specimen Anatomical Collection Method Collection Time Receive d Time (Source) Location / / Volume Laterality Blood (Blood, 07/07/2020 7:43 AM 07/08/19 7:59 Venous) CDT AM CDT Kimberly Rios APRN, C.N.P., M.S. LAB BLOOD ADD-ON Performing Organization Address City/State/ZIP Code Phon e Number [facility] - [address] [place], [place] [address] [facility] [place] [address] [facility] 200 [facility] (ABNORMAL) Comprehensive Metabolic Panel (07/07/2020 7:43 AM CDT) P athologist Signature Potassium, S [...] 07/07/2020 DTL Black/ mL/min/BSA 8:28 AM CDT Zimbabwean Comment: ----ADDITIONAL INFORMATION---- Estimated GFR calculated using [...] 7:59 Venous) CDT AM CDT Trace Rudolph APRNNAbdirashid., M.S. LAB BLOOD ADD-ON Performing Organization Address City/State/ZIP Code Phon e Number [facility] - [address] [place], [place] [address] [facility] [place] [address] [facility] 200 [facility] (ABNORMAL) CBC with Differential, Blood (07/07/2020 7:43 AM CDT) [facility] gist Method Time Signature Hemoglobin 10.4 (L) 11.6 [...] AM 07/08/19 7:58 Venous) CDT AM CDT Harleen Rudolph APRN.N.Hossein., M.S. LAB BLOOD ADD-ON Performing Organization Address City/[facility] Phon e Number [address] Bilirubin, Direct (06/22/2020 9:53 AM CDT) P athologist Signature Bilirubin, <0.2 0.0 - 0.3 06/22/2020 DTL Direct, S mg/dL 10:34 AM CDT Specimen Anatomical Collection Method Collection Time Receive d Time (Source) Location / / Volume Laterality Blood (Blood, 06/22/2020 9:53 AM 06/23/19 Venous) CDT 10:00 AM CDT Harleen Rudolph APRN.N.P., M.S. LAB BLOOD ADD-ON Performing Organization Address City/[facility] Phon e Number [facility] [address] (ABNORMAL) Comprehensive Metabolic Panel (06/22/2020 9:53 AM CDT) P athologist Signature Potassium, S 3.9 3.6 - [...] 06/22/2020 DTL Black/ mL/min/BSA 10:34 AM CDT [place] Comment: ----ADDITIONAL INFORMATION---- Estimated GFR calculated using [...] Organization Address City/State/ZIP Code Phon e Number [facility] - [address] [place] [phone] [facility] [place] [address] [facility] 200 [facility] (ABNORMAL) CBC with Differential, Blood (06/22/2020 9:53 AM CDT) [facility] gist Method Time Signature Hemoglobin 9.8 [...] Laterality Blood (Blood, 06/22/2020 9:53 AM 06/23/19 Venous) CDT 10:01 AM CDT Kimberly Rios APRN, C.N.P., M.S. LAB BLOOD ADD-ON Performing Organization Address City/[facility] Phon e Number [address] Bilirubin, Direct (06/08/2020 7:52 AM CDT) athologist Signature Bilirubin, <0.2 0.0 - 0.3 06/08/2020 DTL Direct, S mg/dL 8:51 AM CDT Specimen Anatomical Collection Method Collection Time Receive d Time (Source) Location / / Volume Laterality Blood (Blood, 06/08/2020 7:52 AM 06/09/19 8:05 Venous) CDT AM CDT Trace Rudolph APRNNAbdirashid., M.S. LAB BLOOD ADD-ON Performing Organization Address City/State/[facility] Phon e Number [address] [place] [address] (ABNORMAL) Comprehensive Metabolic Panel (06/08/2020 7:52 AM CDT) athologist Signature Potassium, S 3.6 3.6 - 5.2 06/08/2020 DTL mmol/L 8:51 AM CDT Sodium, S 140 135 - 145 06/08/2020 DTL mmol/L 8:51 AM CDT Chloride, S 97 (L) 98 - 107 06/08/2020 DTL mmol/L 8:51 AM CDT Bicarbonate, S 32 (H) 22 - 29 06/08/2020 DTL mmol/L 8:51 AM CDT Anion Gap 11 7 - 15 06/08/2020 DTL 8:51 AM CDT BUN (Blood Urea 17 6 - 21 06/08/2020 DTL Nitrogen), S mg/dL 8:51 AM CDT Creatinine, S 0.96 0.59 - 06/08/2020 DTL 1.04 mg/dL 8:51 AM CDT eGFR-Non 57 (L) >=60 06/08/2020 DTL Black/ mL/min/BSA 8:51 AM CDT [place]an Comment: ----ADDITIONAL INFORMATION---- Estimated GFR calculated using the 2009 CKD_EPI creatinine equation. eGFR-Black/ 66 >=60 mL/min/BSA 2020 8:51 AM CDT DTL Comment: ----ADDITIONAL INFORMATION---- Estimated GFR calculated using the 2009 CKD_EPI creatinine equation. Calcium, Total, S 9.2 8.8 - 10.2 mg/dL 06/08/2020 8:51 AM CDT DTL Glucose, S 81 70 - 140 mg/dL 06/08/2020 8:51 AM CDT D TL Protein, Total, S 7.2 6.3 - 7.9 g/dL 06/08/2020 8:51 A M CDT DTL Albumin, S 4.5 3.5 - 5.0 g/dL 06/08/2020 8:51 AM CDT D TL Aspartate Aminotransferase (AST), 29 8 - 43 U/L 06/08 8:51 AM CDT DTL S Alkaline Phosphatase, S 71 35 - 104 U/L 06/08/2020 8: 51 AM CDT DTL Alanine Aminotransferase (ALT), S 28 7 - 45 U/L 06/08 8:51 AM CDT DTL Bilirubin, Total, S 0.2 <=1.2 mg/dL 06/08/2020 8:51 AM CDT DTL Specimen Anatomical Collection Method Collection Time Receive d Time (Source) Location / / Volume Laterality Blood (Blood, 06/08/2020 7:52 AM 06/09/19 21 8:05 Venous) CDT AM CDT Kimberly Phillips Gabriel HIGH C.N.P., M.S. LAB BLOOD ADD-ON Performing Organization Address City/State/ZIP Code Phon e Number [facility] - [address] [place], [place] [address] [facility] [place] [address] [facility] 200 [facility] (ABNORMAL) CBC with Differential, Blood (06/08/2020 7:52 AM CDT) [facility] Method Time Signature Hemoglobin 11.1 (L) 11.6 - 06/08/2020 DTL 15.0 g/dL 8:33 AM CDT Hematocrit 33.1 (L) 35.5 - 06/08/2020 DTL 44.9 % 8:33 AM CDT Erythrocytes 3.52 (L) 3.92 - 06/08/2020 DTL 5.13 8:33 AM CDT x10(12)/L MCV 94.0 78.2 - 06/08/2020 DTL 97.9 fL 8:33 AM CDT RBC Distrib Width 12.7 12.2 - 06/08/2020 DTL 16.1 % 8:33 AM CDT Platelet Count 317 157 - 371 06/08/2020 DTL x10(9)/L 8:33 AM CDT Leukocytes 8.6 3.4 - 9.6 06/08/2020 DTL x10(9)/L 8:33 AM CDT Neutrophils 6.78 (H) 1.56 - 06/08/2020 DTL 6.45 8:33 AM CDT x10(9)/L Lymphocytes 0.73 (L) 0.95 - 06/08/2020 DTL 3.07 8:33 AM CDT x10(9)/L Monocytes 0.98 (H) 0.26 - 06/08/2020 DTL 0.81 8:33 AM CDT x10(9)/L Eosinophils 0.06 0.03 - 06/08/2020 DTL 0.48 8:33 AM CDT x10(9)/L Basophils 0.05 0.01 - 06/08/2020 DTL 0.08 8:33 AM CDT x10(9)/L Specimen Anatomical Collection Method Collection Time Receive d Time (Source) Location / / Volume Laterality Blood (Blood, 06/08/2020 7:52 AM 06/09/19 21 8:09 Venous) CDT AM CDT Kimberly Phillips Gabriel HIGH C.N.P., M.S. LAB BLOOD ADD-ON Performing Organization Address City/State/ZIP Code Phon e Number [facility] - [address] [place], [place] [address] [facility] [place] [address] [facility] [address] IR Implanted Vascular Access Device Placement (06/05/2020 10:35 AM SHOP MANAGER) Anatomical Region Laterality Modality Chest, Pelvis, Abdomen, Vascular Interventional RST LOS, N/A X-Ray Angiography Vascular Interventional ARZ LOS, Vascular Interventional FLA LOS Specimen (Source) Anatomical Collection Method Collection Time Re ceived Time Location / / Volume Laterality 06/05/2020 10:40 AM SHOP MANAGER Impressions 06/05/2020 10:41 AM SHOP MANAGER Placement of an 8F Slim Power Port-A-Cath. Ready for immediate use. NR Narrative 06/05/2020 10:41 AM SHOP MANAGER EXAM: IR IMPLANTED VASCULAR ACCESS DEVICE PLACEMENT CLINICAL HISTORY: Pancreatic adenocarcin jenifer TECHNIQUE: ??Patient was prepped and ruby ped in the usual sterile fashion over the right neck and chest. 1% buffered lidoca ine was used as local anesthetic. Using ultrasound guidance to access vessel, pa ute was shown and after anesthetizing the skin [...] Port-A-Cat h. Ready for immediate use. NR Kimberly Rios APRN, C.N.P., M.S. IMG IR PROCEDURES documented in this encounter Visit Diagnoses Diagnosis Malignant Neoplasm Of Pancreas Adenocarc inoma (HCC) - Primary Lesion Pancreas Secondary Malignant Neoplasm Lymph Node (HCC) Lesion Pancreas documented in this encounter
--- OUTSIDE RECORDS SUMMARY | 2021-11-03 07:10 | XMS_ITS | Encounter Summary ---
:1940 Author Organization [facility] Address [address] [place] [address] Care Team Providers Name Role Phone Unavailable Primary Care Provider Unavailable Encounter Details Date Type Department Care Team Description 12/17/2015 Historical Ophthalmology [facility] Delmar Mulligan M.D. [address] [place], [place] [phone] (Wo rk) Social History [...] encounter Progress Notes Delmar Mulligan M.D. - 12/17/2015 8:27 AM CDT Eye General HISTORY OF PRESENT ILLNESS CE- Pt struggling with distance over 20 feet, removing gls seems clearer. IMPRESSION / REPORT / PLAN #1 Cataracts, nuclear both eyes. #2 Choroidal nevus, left eye. Stable, Plan: Update glasses. U/v protection. F/u one year. CE/ref DIAGNOSIS #1 Cataracts, nuclear both eyes. #2 Choroidal nevus, left eye. CDM Reports - EYEGEN Id: [id number] Status: Fnl documented in this encounter Plan of Treatment Upcoming Encounters Date Type Specialty Care Team Description 11/19/2021 Clinical Communication Admitting/Central Scheduling 11/23/2021 Comprehensive Visit Neurology Kenji Zaldivar M.D. [address] [place] [phone] documented as of this encounter Visit Diagnoses Not on filedocumented in this encounter
--- OUTSIDE RECORDS SUMMARY | 2021-11-03 07:10 | XMS_ITS | Encounter Summary ---
:1940 Author Organization [facility] Address [address] [place] [address] Care Team Providers Name Role Phone Unavailable Primary Care Provider Unavailable Encounter Details Date Type Department Care Team Description 05/20/2020 Orders Only [facility] PCP [facility] Sa jeana Cantu M.D. [address] [place], [place] [phone] (Wo rk) Social History [...] Visit Neurology Kenji Zaldivar M.D. [address] [place] [phone] documented as of this encounter Visit Diagnoses Not on filedocumented in this encounter
--- OUTSIDE RECORDS SUMMARY | 2021-11-03 07:10 | XMS_ITS | Encounter Summary ---
:1940 Author Organization [facility] Address [address] [place] [address] Care Team Providers Name Role Phone Unavailable Primary Care Provider Unavailable Reason for Visit Reason Comments Voiding Dysfunction patient states her urethra h urts Encounter Details Date Type Department Care Team Description 07/03/2017 Office Visit Department of Urology Stephani Ervin, Atrophy Vagina Due To in LENNOX Montanez R.N. Estrogen Deficiency [place] [address] (Primary Dx) [address] [facility] [place] [id number] [phone] Social History Tobacco Use Types Packs/Day Years [...] Sign Reading Time Taken Comments Blood Pressure 152/76 07/03/2017 1:56 PM CDT Pulse 68 07/03/2017 1:56 PM CDT Temperature 37.1 ??C (98.8 ??F) 07/03/2017 1:56 PM CDT Respiratory Rate - - Oxygen Saturation - - Inhaled Oxygen Concentration - - Weight - - Height - - Body Mass Index - - documented in this encounter Consult Notes Stephani Ervin, LENNOX, C.N.P. - 07/03/2017 2:00 PM CDT SUBJECTIVE REASON FOR CONSULT Female incontinence HISTORY OF PRESENT ILLNESS Azeb is a pleasant 77-year-old female here today for a consultation for dysuria. She states that about 9 months ago she had a long car ride and since then she has been having recurrent urinary tractinfections and pain. She states that she has seen her primary provider, and a inventory administrator and they told her that she did not have any issues and not prescribe her any creams. She has been on multiple antibiotics, the last being Macrobid for 7 days. She states that she has constant bladder and urethral pain that is worse after she voids. She states that cold feels good and she uses ice packs. She feels like there is burning and flaring of her urethra. She has had 1 vaginal delivery in states that she had many sutures after this. She does not feel that these infections or pain are repeat late did tosexual activity. Sex is quite painful for her and she was not having this pain prior to last September. She has not found anything that improves her symptoms, she has not changed soaps or laundry detergents, she does not douche or use upuo-tsy-amrhzrb products. She did attempt to use refresh, but this was painful to insert. The cream itself did not hurt but the act of insertion was quite painful for her. She denies constipation and denies other changes in her life that would cause her emotional stress. She drinks fluid throughout the day, approximately 4 glasses of water, 2 cups of coffee, and milk withher meals. [facility] URO PROLAPSE INTAKE QUESTIONNAIRE SB: How many pregnancies have you had?: 4 How many live births have you had?: 1 How many vaginal deliveries have you had?: 1 Is there any tissue you can see or feel bulging outside of the vaginal opening?: no What other symptoms do you experience secondary to pelvic organ prolapse?: Fullness or pressure in the abdomen Have you had a hysterectomy?: no Are you premenopausal, perimenopausal, or post menopausal?: post menopausal Associated Symptoms hematuria (-) ECO - normal activity Lower Urinary Symptoms Lower Urinary Sx: hematuria (-) able to sense full bladder (+) frequency (+)urinary retention (-) difficulty urinating (-) Obstructive Sx: kidney infections or required hospitalization for kidney failure (-) # of UTI's in past year: 3 or more Required catheter: no Incontinence: urge incontinence (-) unintentionally leaks urine (-) The following portions of the patient's history were reviewed and updated as appropriate: allergies,current medications, family history, medical history, social history, surgical history and problem list. REVIEW OF SYSTEMS Gastrointestinal: Negative for constipation and diarrhea. Genitourinary: Positive for pain with urination, urgency and frequent urination. Negative for incontinence, difficulty urinating and hematuria. Musculoskeletal: Positive for arthralgias and pain or stiffness in the joints. All other systems reviewed and are negative. The following systems were negative: Constitutional, Skin, Eyes, ENT, CV, Respiratory, GI, Hematologic, Neuro OBJECTIVE Vitals: 07/03/17 1356 BP: 152/76 Patient Position: Sitting Pulse: 68 Temp: 37.1 ??C TempSrc: Temporal PHYSICAL EXAM Vitals and nursing note reviewed. General: Well developed, well nourished, well groomed female in no acute distress. Neurological: Alert, cooperative, oriented x3. Appropriate mood and affect. Head: Normal appearance, no abnormalities, normocephalic. Neck: Symmetrical and supple, trachea is midline. Cardiac: regular rate, regular rhythm. Respiratory:Respirations are unlabored with normal respiratory rate and normal respiratory movements. Normal chest wall expansion without use of accessory muscles. Abdomen: Soft, non-tender, non-distended Vascular: There are +2 pulses noted in both upper and lower extremities. : Skin color and turgor appropriate for region. No ulcers, erythema, rashes, or pigmented lesions noted. External genitalia negative for masses, lesions, or swelling. No labial agglutination noted, moderate vaginal atrophy noted. No unusual odors or discharge noted. No cystocele or rectocele exhibited on straining. Extremities: Warm, without edema or ulcerations. Musculoskeletal: Yale is symmetrical and balanced. DIAGNOSTIC Postvoid residual 19 mL. ASSESSMENT / PLAN #1 Atrophy Vagina Due To Estrogen Deficiency We had an in-depth discussion about her symptoms. It is possible that she has a bit of urethritis, but it is also likely that this is caused by her significant vaginal atrophy. We discussed the risks and benefits of vaginal estrogen cream and she would like to try this. We discussed that it will also likely help to prevent further urinary tract infections. Prescription is sent to the [place] pharmacy for estriol 0.3% compound id vaginal estrogen cream. We discussed proper application and that shemay use her finger to do apply this. If this does not improve her symptoms, she should contact us and we will do further studies and testing to assist her with this. All of her questions have been answered today and she is in agreement with the plan that we have made. Signed by: Stephani Ervin APRN, C.N.P. 07/23/2017 2:36 PM documented in this encounter Plan of Treatment Upcoming Encounters Date Type Specialty Care Team Description 11/19/2021 Clinical Communication Admitting/Central Scheduling 11/23/2021 Comprehensive Visit Neurology Kenji Zaldivar M.D. [address] [place] [address] documented as of this encounter Visit Diagnoses Diagnosis Atrophy Vagina Due To Estrogen Deficienc y - Primary documented in this encounter
--- OUTSIDE RECORDS SUMMARY | 2021-11-03 07:10 | XMS_ITS | Encounter Summary ---
:1940 Author Organization [facility] Address [address] [place] [address] Care Team Providers Name Role Phone Unavailable Primary Care Provider Unavailable Encounter Details Date Type Department Care Team Description 05/28/2020 Anesthesia Event Division of Gastroenterology Ivan Yun julio in [facility] blossom Hope, PARK INTERPRETER, [address] [facility] [place] [address] [address] [facility] [phone] [place] [address] Anesthesia Record Procedure Summary Procedure Name Responsible Anesthesia Start Anesthesia Stop Anesthesiologist Time Time ENDOSCOPIC Loveethan Faulkner Jayy, 05/28/20 0950 05/28/20 1 055 ULTRASOUND (EUS) DARA HIGH Events Date Time Event Comment 05/28/2020 0926 0950 An Start Machine/Equipmen t Checked Infection Precautions Foll owed Procedure/Site Verified NPO Sta tus Verified Supine Standard ASA Mon itors Applied 0954 Turnover to Proceduralist 1001 Proc Start 1043 Turnover to ANE Staff 1046 Proc Fin 1050 an stop data 1055 An End I completed my h andoff to the receiving staff during [facility] we 1. Identified the patient 2. Ident ified the responsible provider 3. Revi ewed the pertinent medical history 4. Discu ssed the surgical course 5. Reviewed intra-o p anesthesia management and issues during an esthesia 6. Set expectations for post-procedure period 7. Allowed opportun ity for questions and acknowledgement of understanding. Name Total fentanyl injection 50 mcg/mL 50 mcg lidocaine 2% (mg) injection 60 mg propofol 10 mg/mL injection 100 mg propofol 10 mg/mL infusion 397.5 mg ondansetron PF 4 mg/2 mL injection 4 mg Lactated Ringers Free Drip 300 mL Agents No agents on file. Blood No blood administrations on file. Lines, Drains, and Airways Type Details Placement Removal Peripheral IV Placement Date: 05/28/20; 05/28/20923 by Melba savage, 05/28/201234 by Placement Time: 923; Jackie Savage RChicoNMaxwell Ivey R.NChico Catheter Size: 22 G; Orientation: Right; Location: Hand; Site Prep: Alcohol; Technique: Anatomical landmarks; Inserted by: JV Michaud; Insertion Attempts: 1; Removal Date: 05/28/20; Removal Time: 1234; Removal Reason: Patient discharged documented in this encounter Social History Tobacco [...] or relatives? How often do you attend [employer] or More than 4 times per year 06/19/2021 worship services? Do you belong to any clubs or Yes 06/19/2021 organizations such as [employer] groups, unions, fraternal or athletic groups, or [...] encounter OR Notes Anesthesia Postprocedure Evaluation - Jayy Barajas APRN, CRNA - 05/28/2020 10:55 AM CST Patient: Azeb العراقي Procedure Summary Date: 05/28/20 Room / Location: Division of Gastroenterology in [place], [place] Anesthesia Start: 949 Anesthesia Stop: Procedure: ENDOSCOPIC ULTRASOUND (EUS) Diagnosis: Lesion Pancreas (HCC) Scheduled Providers: Jayy Barajas APRN, CRNA Responsible Provider: Jayy Barajas APRN, CRNA Anesthesia Type: MAC ASA Status: 2 Anesthesia Type: MAC Last vitals Vitals Value Taken Time BP 124/84 05/28/20 1053 Temp Pulse 71 05/28/20 1054 Resp 16 05/28/20 1054 SpO2 99 % 05/28/20 1054 Vitals shown include unvalidated device data. Please reference Vitals flowsheet for most recent vital signs. Anesthesia Post Evaluation Patient Disposition: dismissal Cardiovascular status: hemodynamics (HR & BP) acceptable Respiratory status: patent airway with spontaneous effort Temperature: normothermic Oxygen requirements: room air Level of consciousness: awake Pain score: pain adequately controlled and/or at baseline Post Op nausea/vomiting: none Hydration status: euvolemic PENDENT VIDEO PRODUCER Anesthesia Preprocedure Evaluation - Som Mejia III, M.D. - 05/28/2020 9:25 AM CST Preprocedure Anesthesia & H&P Assessment Procedure Summary Date/Time: 05/28/20 1015 Scheduled providers: Jayy Barajas APRN, CRNA Procedure: ENDOSCOPIC ULTRASOUND (EUS) Diagnosis: Lesion Pancreas (HCC) [K86.89] Location: Division of Gastroenterology in [place], [place] Pertinent components of the patient's history including current problem list, medical history, surgical history, family history, social history, medications and allergies were reviewed. Present illnessand pre-op diagnosis were confirmed. The planned surgery / procedure was verified with the patient /legal guardian. The patient's general health condition remains unchanged RELEVANT COMORBID CONDITIONS ENDO (+) Hypothyroidism Other (+) Hair Facial (+) Hypertension (+) Keratosis Actinic (+) Onychomycosis (+) Osteoarthritis (+) Osteoporosis OBJECTIVE PHYSICAL EXAMINATION Airway (HEENT) Mallampati: II TM Distance: >3 FB Neck ROM: Full Cardiovascular Rhythm: Regular Rate: Normal Functional Capacity: >4 METS Pulmonary Pulmonary Assessment: Clear General / Constitutional Constitutional Assessment: Normal ASSESSMENT / PLAN ANESTHESIA PLAN ASA: 2 Anesthesia Plan: MAC Patient seen and allergies reviewed; anesthesia plan and risks discussed directly with patient / legal guardian, or through an law professor; patient evaluated and approved for anesthesia / sedation The use of blood products not discussed Approval to Proceed: approved for anesthesia PENDENT VIDEO PRODUCER documented in this encounter Plan of Treatment Upcoming Encounters Date Type Specialty Care Team Description 11/19/2021 Clinical Communication Admitting/Central Scheduling 11/23/2021 Comprehensive Visit Neurology Kenji Zaldivar M.D. [address] [place] [address] documented as of this encounter Visit Diagnoses Not on filedocumented in this encounter Administered Medications Inactive Administered Medications - up to 3 most recent administrations Medication Order MAR Action Action Date Dose Rate Site fentaNYL injection (SUBLIMAZE) Given 05/28/2020 10:39 AM INDEPENDENT VIDEO PRODUCER 25 mcg intravenous, As needed, Starting on Laila 05/28/20 at 0953, Anesthesia Intra-op Given 05/28/2020 9:53 AM INDEPENDENT VIDEO PRODUCER 25 mcg lactated ringers New Bag 05/28/2020 9:51 AM INDEPENDENT VIDEO PRODUCER intravenous, Continuous Infusion: Per Instructions PRN, Starting on Laila 05/28/20 at 0951, Anesthesia Intra-op lidocaine (PF) (cardiac) injection Given 05/28/2020 9:53 AM INDEPENDENT VIDEO PRODUCER 60 mg intravenous, As needed, Starting on Laila 05/28/20 at 0953, Anesthesia Intra-op ondansetron (PF) injection (ZOFRAN) Given 05/28/2020 9:54 AM INDEPENDENT VIDEO PRODUCER 4 mg intravenous, As needed, Starting on Laila 05/28/20 at 0954, Anesthesia Intra-op propofol 10 mg/mL infusion New Bag 05/28/2020 9:52 150 mcg/kg/min 47.7 mL/hr (DIPRIVAN) AM INDEPENDENT VIDEO PRODUCER intravenous, Continuous Infusion: Per Instructions PRN, Starting on Laila 05/28/20 at 0952, Anesthesia Intra-op propofoL injection (DIPRIVAN) Given 05/28/2020 10:33 AM INDEPENDENT VIDEO PRODUCER 20 mg intravenous, As needed, Starting on Laila 05/28/20 at 0953, Anesthesia Intra-op Given 05/28/2020 10:04 AM INDEPENDENT VIDEO PRODUCER 20 mg Given 05/28/2020 10:00 AM INDEPENDENT VIDEO PRODUCER 20 mg documented in this encounter
--- OUTSIDE RECORDS SUMMARY | 2021-11-03 07:10 | XMS_ITS | Encounter Summary ---
:1940 Author Organization [facility] Address [address] [place] [address] Care Team Providers Name Role Phone Unavailable Primary Care Provider Unavailable Reason for Referral Outpatient (Routine) - Closed Specialty Diagnoses / Procedures Referred By Contact Refer red To Contact Diagnoses Lesion Pancreas Yasir Daley M.D., [facility] Procedures EUS Ph.D. Referral ID Status Reason Start Date Expiration Date Visits Requ ested Visits Authorized [id number] Closed 05/21/2020 05/21/2021 1 1 YLENE TORCH BURNER Reason for Visit Outpatient (Routine) - Closed Specialty Diagnoses / Procedures Referred By Contact Refer red To Contact Diagnoses Lesion Pancreas Yasir Daley M.D., [facility] Procedures EUS Ph.D. Referral ID Status Reason Start Date Expiration Date Visits Requ ested Visits Authorized [id number] Closed 05/21/2020 05/21/2021 1 1 Encounter Details Date Type Department Care Team Description 05/28/2020 Hospital Division of Yasir Daley M.D., Ph.D. Lesion Pancreas Encounter Gastroenterology in Jayy Barajas, NUCLEAR WASTE MANAGEMENT ENGINEER, FISH CUTTING MACHINE OPERATOR [address] [place] [address] ([facility]) [place], [place] [address] [place] [address] Social History Tobacco Use Types Packs/Day [...] Sign Reading Time Taken Comments Blood Pressure 182/81 05/28/2020 12:30 PM ACETYLENE TORCH BURNER Pulse 66 05/28/2020 12:32 PM ACETYLENE TORCH BURNER Temperature 36.8 ??C (98.2 ??F) 05/28/2020 12:30 PM ACETYLENE TORCH BURNER Respiratory Rate 14 05/28/2020 12:32 PM ACETYLENE TORCH BURNER Oxygen Saturation 97% 05/28/2020 12:32 PM ACETYLENE TORCH BURNER Inhaled Oxygen Concentration - - Weight - - Height - - Body Mass Index - - documented in this encounter Discharge Instructions AttachmentsThe following attachments cannot be sent through Care Everywhere. Clear Liquid Diet (German)About Your Endoscopic Ultrasound (German)documented in this encounter Medications at Time of Discharge Medication Sig Dispensed Refills Start Date End Date magnesium oxide (MAG-OX) Take 400 mg by 0 02/18/2 021 400 mg (241.3 mg mouth. Taking 4 magnesium) tablet tablets daily [id number]-copper-ma Take by mouth. 0 2020 tawana (Citracal-D3 Maximum Taking 3-4 daily Plus) 325 mg-12.5 mcg -2.75 mg tablet ESTRIOL MICRONIZED, BULK, Three Times Weekly 0 MISC CALCIUM CITRATE ORAL Citracal 0 11/25/200908/26 CHOLECALCIFEROL, VITAMIN Vitamin D3 1000 intl 0 0 11/25/2009 09/14/2020 D3, ORAL units oral tablet levothyroxine sodium Synthroid 0 11/25/200908/26 (LEVOTHYROXINE ORAL) lisinopriL Take 20 mg by mouth. 0 04/10/2020 07/0 03/2021 (PRINIVIL,ZESTRIL) 20 mg tablet calcitRIOL (ROCALTROL) 0 04/14/2020 0.5 mcg capsule NON FORMULARYIndications: Estriol 0.3% Vaginal 30 g [...] Visit Neurology Kenji Zaldivar M.D. [address] [place] [phone] documented as of this encounter Procedures Procedure Name Priority Date/Time Associated Comments Diagnosis CYTOLOGY FINE NEEDLE Routine 05/28/2020 10:09 AM Results for this ASPIRATION (INCLUDES ACETYLENE TORCH BURNER procedu re are in CORE BIOPSIES the results section. WA IMMUNO STAIN PER Routine 05/28/2020 9:59 AM Re sults for this SPEC INITIAL AB ACETYLENE TORCH BURNER procedure ar e in the results section. UPPER EUS Routine 05/28/2020 9:52 AM Lesion Pancreas Result s for this ACETYLENE TORCH BURNER (HCC) procedure are i n the results section. ENDOSCOPIC Routine 05/28/2020 9:52 AM Lesion Pancreas ULTRASOUND (EUS) ACETYLENE TORCH BURNER (HCC) documented in this encounter Results (ABNORMAL) Cytology Fine Needle Aspiration (including core biopsies) (05/28/2020 10:09 AM ACETYLENE TORCH BURNER) Component Value Ref Test Analysis Performed At [facility] gist Range Method Time Signature 05/29/2020 DTL (A) 12:46 PM ACETYLENE TORCH BURNER Participated in Aviva Maldonado, 05/29/2020 DTL the Interpretation M.Rafa-Patholog 12:46 PM y Resident ACETYLENE TORCH BURNER (A) Report Curt Mireles M.D. [phone] 05/30/19 DTL electronically I verify that I have examined all relevant slides/ma terials 12:46 PM signed by for the specimen(s) and rendered or confirmed the diagnosis. ACETYLENE TORCH BURNER (A) Gross Description A: Received 5 spray-fixed smears, 5 Diff-Quik sta ined 05/29/2020 DTL smears, and 6cc of blood-tinged fluid. 1 2:46 PM Specimen evaluated for adequacy on site. ACETYLENE TORCH BURNER B: Received 5 spray-fixed smears, 5 Diff-Quik stained smears, and 5cc of blood-tinged fluid. Specimen evaluated for adequacy on site. (A) Source A. Pancreas, Neck, EUS fine needle aspiration 05/29/2020 DTL B. Lymph node, Celiac, EUS fine needle aspiration 12:46 PM (A) ACETYLENE TORCH BURNER Addendum MMR Protein, IHC Only, Tumor (IHC) ??will be performe d and 06/08/2020 DTL resulted in the patient's medical record. 4:43 PM CDT Signed by Prince Santacruz M.D. 06/08/2020 4:43 PM (A) Comment: REVISED RESULTS Interpretation A. Pancreas, Neck, EUS fine needle aspiration (smear s/cell 06/08/2020 4:43 PM CDT DTL block): ?- Positive for malignancy. ??Adenocarcinoma. B. Lymph node, Celiac, EUS fine needle aspiration (smears/cell block): ?- Positive for malignancy. ??Metastatic adenocarcin jenifer. (A) Specimen (Source) Anatomical Collection Method Collection Time Re ceived Time Location / / Volume Laterality Aspirate 05/28/2020 10:09 (Pancreas) AM ACETYLENE TORCH BURNER Aspirate (Lymph 05/28/2020 10:26 Node) AM ACETYLENE TORCH BURNER Narrative This result has an attachment that is no t available. Wayne Bahena M.D. LAB SURG PATH ORDERABLES Performing Organization Address City/State/ZIP Code Phon e Number [facility] - [address] [place], [place] [address] [facility] [place] [address] [facility] [address] [facility] Mismatch Repair (MMR) Protein Immunohistochemistry Only, Tumor (05/28/2020 9:59 AM ACETYLENE TORCH BURNER) Component Value Ref Test Analysis Performed Pathologis t Range Method Time At Signature MLH1 IHC Performed 06/12/2020 DTL 9:48 AM CDT MSH2 IHC Performed 06/12/2020 DTL 9:48 AM CDT MSH6 IHC Performed 06/12/2020 DTL 9:48 AM CDT PMS2 IHC Performed 06/12/2020 DTL 9:48 AM CDT Result Provided diagnosis: pancreatic adenocarcinoma 06/12/2020 DTL IHC: Normal expression of MLH1, MSH2, MSH6, and PMS2 9:48 AM CDT Specimen Tissue, Tumor 06/12/2020 DTL 9:48 AM CDT Tissue ID [id number] 06/12/2020 DTL 9:48 AM CDT Released By Nicolas Petit M.D., 06/12/2020 DTL Ph.D. 9:48 AM CDT Result Summary INTACT PROTEIN 06/12/2020 DTL EXPRESSION 9:48 AM CDT Interpretation These results suggest the presence of normal DNA mis match 06/12/2020 DTL repair function within the tumor. However, these results do 9:48 AM CDT not completely rule out the possibility of defective DNA mismatch repair within the tumor because approximately 5% of cases with defective mismatch repair do not show absence of protein expression by IHC. HEREDITARY IMPLICATIONS These results do not rule out a diagnosis of HNPCC/Ascencio syndrome since the majority of information available on the ability of MSI/IHC testing to identify individuals with HNPCC/Ascencio syndrome relates to testing that is performed on colon cancer. Although colon tumors are the preferred specimen for assessing an individual's risk, testing of other tumors typically associated with HNPCC/Ascencio syndrome (e.g. endometrial, sebaceous carcinoma, gastric, or upper tract urothelial carcinoma) may be useful if a colon tumor is unavailable. This additional testing may provide more definitive evidence regarding whether or not this individual or family is likely to have an inherited colon cancer syndrome due to defective DNA mismatch repair (HNPCC/Ascencio syndrome). These results also do not rule out the possibility that this individual's tumor is due to an inherited defect in another gene not involved in mismatch repair. A significant fraction of clinically defined HNPCC cases (30% or more) do not have defective DNA mismatch repair as the underlying genetic basis of their disease. Additionally, these results do not rule out the possibility that this tumor could represent a sporadic occurrence. A genetic consultation may be of benefit. THERAPEUTIC IMPLICATIONS Current data suggest that in advanced stage solid tumors, targeted immunotherapies such as anti-PD-1 therapies are more likely to be effective in mismatch repair-deficient tumors than in mismatch repair-proficient tumors (Science. 2017 Oct 21;357(8156):018-739 (PMID 18468625); J Clin Oncol. 2018 Apr 15:WYC5121280744 (PMID 49607641)). For interpretation of therapeutic implications of these results, consider MSI analysis to confirm FAIZA/MSI-L status in this tumor due to the possibility of discordance between IHC and MSI results. ADDITIONAL INFORMATION Consideration of these results, in light of other clinical information, may aid in clinical management decisions for this patient. These data should be interpreted in the context of the histopathologic findings. A surgical pathology consult may be ordered separately. Comment: ----ADDITIONAL INFORMATION---- Immunohistochemical staining (IHC) is us ed to determine the presence or absence of protein expression for one or more of the following: MLH1, MSH2, MSH6, and PMS2. Lymphocytes and normal e pithelium exhibit strong nuclear staining to serve as positive internal c ontrols for staining of these proteins. Test results should be interpreted in th e context of clinical findings, family history, and other laboratory real a. If results obtained do not match other clinical or laboratory findings, gloria hamm contact the laboratory for possible interpretation. Misinterpretati on of results may occur if the information provided is inaccurate or in complete. This test was developed and its performa nce characteristics determined by [facility] in a manner consistent with CLIA requirements. This test has not been cleared or approved by the [place] Janie d and Drug Administration. Specimen Anatomical Collection Method Collection Time Receive d Time (Source) Location / / Volume Laterality Varies 05/28/2020 9:59 AM ACETYLENE TORCH BURNER 11:08 AM CDT Narrative This result has an attachment that is no t available. Andrés Gill M.D. LAB GENETIC TESTING Performing Organization Address City/State/ZIP Code Phon e Number [facility] - [address] [place], [place] [address] [facility] [place] [address] [facility] [address] Upper EUS (05/28/2020 9:52 AM ACETYLENE TORCH BURNER) Specimen (Source) Anatomical Collection Method Collection Time Re ceived Time Location / / Volume Laterality 05/28/2020 9:52 AM ACETYLENE TORCH BURNER Impressions [facility] - 05/28/2020 10:59 AM ACETYLENE TORCH BURNER Post-op Diagnoses: ? - A retroperitoneal mass was iden tified that appeared to extend from ? pancreatic neck. Fine needle aspi ration performed. Narrative [facility] - 05/28/2020 10:59 AM ACETYLENE TORCH BURNER [facility] Patient Name: Azeb العراقي Date of : 1940 Age: 80 Gender: Female Procedure Date: 05/28/2020 Procedure: ? Upper EU S Providers: ? Wayne Bahena MD Referring Provider: ?Yasir Daley Pre-op Diagnoses: ?Abnormal ab dominal/pelvic CT scan Recommendation: ? - Await pathology results. Findings: ? ENDOSONOGRAPHIC FINDING: : ? An irregular mass was identified in the pancreatic neck. The mass was ? hypoechoic. The endosonographic b orders were poorly-defined. The mass ? has an appearance suggestive of a mostly retroperitoneally growing mass ? extending from the pancreas with infiltration of almost all abutting ? major arteries and veins. The sig nificant tumor attenuation prohibits ? complete through transmission. Mu ltiple malignant appearing nodes, ? ascites, likely omental deposits. No solid hepatic masses seen. Fine ? needle aspiration for cytology wa s performed. Fine needle aspiration was ? performed with the 22 gauge needl e. A quality head was present to ? evaluate the adequacy of the spec imen. Preliminary cytology is positive ? for adenocarcinoma (final results are pending). Procedural Details: ? The patient was seen, evaluated, history reviewed, airway and heart-lung ? exams were performed by licensed provider and were satisfactory for ? planned level of sedation care. ? The risks, benefits and alternati ves for the procedure and sedation were ? discussed and informed consent wa s obtained. A procedural pause was ? conducted in the presence of assi sting personnel to verify the correct ? patient identity and procedure to be performed. Throughout the ? procedure, the patient's blood pr essure, pulse, and oxygen saturations ? were monitored continuously. The Endosonoscope was introduced through ? the mouth, and advanced to the se cond part of duodenum. The procedure ? was determined to be ASGE Complex ity Level 2. Complications: ? No immedia te complications. Estimated Blood Loss: ?Estimated blo od loss: none. Attending Participation: I personally pe rformed the entire procedure. Wayne Bahena MD 05/28/2020 10:59:29 AM This report has been signed electronical ly. Number of Addenda: 0 Note Initiated On: 05/28/2020 9:52 AM Yasir Daley M.D., Ph.D. GI PROCEDURE ORDERABL ES Performing Organization Address City/State/ZIP Code Phon e Number [facility] documented in this encounter Visit Diagnoses Diagnosis Lesion Pancreas documented in this encounter Administered Medications Inactive Administered Medications - up to 3 most recent administrations Medication Order MAR Action Action Date Dose Rate Site acetaminophen injection 1,000 New Bag 05/28/2020 11:47 AM 1,000 mg 400 mL/hr mg (OFIRMEV) ACETYLENE TORCH BURNER 1,000 mg, intravenous, at 400 mL/hr, Administer over 15 Minutes, Once, On Laila 05/28/20 at 1145, For 1 dose, Restriction Criteria (Pharmacy will review and approve if criteria met): Unable to take or tolerate medications administered via the enteral route or orally (not just NPO) documented in this encounter
--- OUTSIDE RECORDS SUMMARY | 2021-11-03 07:10 | XMS_ITS | Encounter Summary ---
:1940 Author Organization [facility] Address [address] [place] [address] Care Team Providers Name Role Phone Unavailable Primary Care Provider Unavailable Encounter Details Date Type Department Care Team Description 02/23/2018 Clinical Communication Department of Delmar Mulligan, Ophthalmology in [place], [place] [address] [place] [phone] Social History Tobacco Use Types Packs/Day Years [...] this encounter Miscellaneous Notes Telephone Encounter - Marilyn Gray - 02/23/2018 1:10 PM CST Appt today @ 1:30 OLOGY PROFESSOR Telephone Encounter - Diana Victor - 02/23/2018 12:10 PM CST Reason for Communication: blurry vision Current Can Nursing/Provider leave a detailed message: yes Action Needed: patent is having new onset blurry vision. She thinks she is having some retinal tearing and would like to be seen today. Name of Medication (if relevant): OLOGY PROFESSOR documented in this encounter Plan of Treatment Upcoming Encounters Date Type Specialty Care Team Description 11/19/2021 Clinical Communication Admitting/Central Scheduling 11/23/2021 Comprehensive Visit Neurology Kenji Zaldivar M.D. [address] [place] [address] documented as of this encounter Visit Diagnoses Not on filedocumented in this encounter
--- OUTSIDE RECORDS SUMMARY | 2021-11-03 07:10 | XMS_ITS | Encounter Summary ---
:1940 Author Organization [facility] Address [address] [place] [address] Care Team Providers Name Role Phone Unavailable Primary Care Provider Unavailable Encounter Details Date Type Department Care Team Description 05/28/2020 Ancillary Procedure Department of Gastroenterology Social History [...] Visit Neurology Kenji Zaldivar M.D. [address] [place] [address] documented as of this encounter Procedures Procedure Name Priority Date/Time Associated Diagnosis Comme nts GI AND GENERAL Routine 05/28/2020 9:25 AM Results for this SURGERY IMAGE EXAM AUDIO ENGINEER procedure are in the results section. documented in this encounter Results UPPER EUS-GI And General Surgery Image Exam (05/28/2020 9:25 AM AUDIO ENGINEER) Specimen (Source) Anatomical Collection Method Collection Time Re ceived Time Location / / Volume Laterality 05/28/2020 9:25 AM AUDIO ENGINEER Narrative [facility] - 05/28/2020 11:04 AM AUDIO ENGINEER This order has been created and auto-finalized [...]
--- OUTSIDE RECORDS SUMMARY | 2021-11-03 07:10 | XMS_ITS | Encounter Summary ---
:1940 Author Organization [facility] Address [address] [place] [address] Care Team Providers Name Role Phone Unavailable Primary Care Provider Unavailable Encounter Details Date Type Department Care Team Description 05/29/2020 Virtual Visit Division of Major Daley (HCC) Gastroenterology in Yasir Silva (Primary Dx) [place], [place], Ph.D. [address] [place] [address] Social History Tobacco Use Types Packs/Day [...] More than 4 times per year 06/19/2021 islam services? Do you belong to any clubs [...] documented as of this encounter Progress Notes Yasir Daley M.D., Ph.D. - 05/29/2020 10:00 AM CST Pancreas Clinic - Virtual Visit (COVID-19 Pandemic) Date of Consultation: 05/29/2020 This patient was virtually interviewed via phone in the patient's home by Yasir Daley M.D., Ph.D. at [facility]. The history and findings below are based on review of available medical records and a virtual conversation with the patient. This Virtual Visit was performed during the C OVID-19 emergency. Chief Complaint/Reason for Consult: Pancreatic mass. History of Present Illness: Ms. Azeb العراقي is a 80 y.o. female who is being seen remotely today. #1 pancreatic mass ?? The patient is a 80-year-old female, who comes to the clinic for an evaluation. ?? Since the end of February 2020/beginning of [...] aortocaval, and mesenteric lymph nodes was reported ([facility] reviewed). The patient otherwise denies presence of any vomiting, discoloration of stool, jaundice, or any episodes of pancreatitis. Given these radiology results the patient decided to come to [facility] to undergo a comprehensive evaluation of her pancreatic lesion. During the last visit the patient agreed to undergo updated laboratory tests as well as endoscopic ultrasound evaluation with biopsy of her pancreatic mass. Today I have a return phone visit with the patient to share with her results of this evaluation. FAMILY HISTORY Family History Problem Relation Age [...] file Gets together: Not on file Attends islam service: Not on file Active member of [...] except those mentioned above in the HPI. Objective: Vital Signs: Not performed. Physical Exam: Not Performed Assessment/Plan: Ms. العراقي is a 80 y.o. female and I had a virtual visit with her. #1 pancreatic mass Since the last visit the patient has been doing generally well. I informed the patient that her updated laboratory tests demonstrated normal values of GI related parameters. However, her concentrationsof the pancreatic cancer marker CA 19.9 were elevated. I also updated her on the results of her endoscopic evaluation. She tolerated the procedure well. Although she reports having sore throat after the procedure, she did not experience any new/alarming GI related symptoms and was able to advance her diet. I shared with the patient that her pancreatic mass and lymph nodes were biopsied and pathology results demonstrated presence of adenocarcinoma. We discussed significance of these results in detail and available options going forward. Together with the patient we agreed to the plan that she is going to undergo oncology consultation to research options regarding further treatment and management ofher pancreatic cancer. In the meantime all of the previously discussed recommendations remain valid.The patient acknowledged understanding of provided information, asked few additional questions, which were answered. PATIENT EDUCATION Ready to learn, no apparent learning barriers were identified; learning preferences include listening. Explained diagnosis and treatment plan; patient expressed understanding of the content. Supervising Financial Systems Administrator: Dr. Hayden Jara. Electronically signed: Yasir Daley M.D., Ph.D. Advised patient to look at the documentation on the patient portal. BILLIN minutes spent in a combination of the following activities: visit with the patient; reviewing records; interpreting test results; discussing plans with the patient and/or family; discussingand coordinating care with other team members and communicating / reviewing care plan with local provider(s). NSED PSYCHOLOGIST documented in this encounter Plan of Treatment Upcoming Encounters Date Type Specialty Care Team Description 11/19/2021 Clinical Communication Admitting/Central Scheduling 11/23/2021 Comprehensive Visit Neurology Kenji Zaldivar M.D. [address] [place] [address] documented as of this encounter Visit Diagnoses Diagnosis Mass Pancreas - Primary documented in this encounter
--- OUTSIDE RECORDS SUMMARY | 2021-11-03 07:10 | XMS_ITS | Encounter Summary ---
:1940 Author Organization [facility] Address [address] [place] [address] Care Team Providers Name Role Phone Unavailable Primary Care Provider Unavailable Encounter Details Date Type Department Care Team Description 05/25/2020 Lab Department of Laboratory Conner Daley, Preprocedural Lab Exam Medicine and Pathology, Kasey, Ph.D. [facility], in [place], [place] [address] [place] [phone] Social History Tobacco Use Types Packs/Day [...] or relatives? How often do you attend hinduism or More than 4 times per year 06/19/2021 islam services? Do you belong to any clubs or Yes 06/19/2021 organizations such as hinduism groups, unions, fraternal or athletic groups, or [...] Visit Neurology Kenji Zaldivar M.D. [address] [place] [address] documented as of this encounter Procedures Procedure Name Priority Date/Time Associated Diagnosis Comme nts SARS Routine 05/25/2020 2:33 PM Preprocedural Lab Exam Results for this CORONAVIRUS-2, PCR NURSE PRIVATE DUTY procedure are in the results section. documented in this encounter Results SARS Coronavirus-2, PCR Asymptomatic (05/25/2020 2:33 PM NURSE PRIVATE DUTY) [facility] gist Method Time Signature SARS Swab, 05/26/2020 DTL Coronavirus-2 Nasopharynx 9:51 AM NURSE PRIVATE DUTY Source SARS Undetected Undetected 05/26/2020 DTL Coronavirus-2 9:51 AM NURSE PRIVATE DUTY , PCR Comment: SARS-CoV-2 RNA absent. This result does not rule out COVID-19 in the patient, as the sensitivity of the test depends o n the timing of the specimen collection and quality of the specimen. Result should be correlated with patient's history and clinical presentat ion. ----ADDITIONAL INFORMATION---- This test was developed and its performa nce characteristics determined by [facility] in a manner co nsistent with CLIA requirements. Independent review by the U.S. Food and Drug Administration is pending. Visit the CDC website: https://www.cdc.gov/coronavirus/ ?? for the most recent guidelines on Lee virus testing. Fact Sheet for Healthcare Providers: (https://www.N4G.com.Vyopta/it-mmfil es/ Provider_Fact_Sheet_for_[facility]_COVI D-19.pdf) Fact Sheet for Patients: (https://www.[facility].com/it-mmfil es/ Patient_Fact_Sheet_for_COVID-19.pdf) Specimen Anatomical Collection Method Collection Time Receive d Time (Source) Location / / Volume Laterality Varies 05/25/2020 2:33 PM 3:12 (Nasopharynx) NURSE PRIVATE DUTY PM NURSE PRIVATE DUTY Yasir Daley M.D., Ph.D. LAB MICROBIOLOGY - [facility] ORDERABLES Performing Organization Address City/State/[facility] Code Phon e Number [facility] - [address] [place], [place] [address] [facility] [place] [place] [address] Laboratories-[facility] [address] documented in this encounter Visit Diagnoses Diagnosis Preprocedural Lab Exam documented in this encounter Additional Health Concerns Infection Onset Date Last Indicated Resolved Time COVID19 Pending 05/25/2020 05/25/2020 05/26/2020 9:52 AM NURSE PRIVATE DUTY documented as of this encounter
--- OUTSIDE RECORDS SUMMARY | 2021-11-03 07:10 | XMS_ITS | Encounter Summary ---
:1940 Author Organization [facility] Address [address] [place] [address] Care Team Providers Name Role Phone Unavailable Primary Care Provider Unavailable Encounter Details Date Type Department Care Team Description 05/21/2020 Ancillary Department of Panchito Daley s Procedure Radiology in Yasir Silva M.D., ([facility]) Camille, Ph.D. [address] [address] Social History Tobacco Use Types Packs/Day Years [...] More than 4 times per year 06/19/2021 confucianist services? Do you belong to any clubs [...] Neurology Kenji Zaldivar M.D. [address] [place] [address] documented as of this encounter Procedures Procedure Name Priority Date/Time Associated Comments Diagnosis INTERPRETATION OF RAD - Routine 05/21/2020 3:14 Lesion Pancreas Res ults for OUTSIDE CT ABDOMEN (most inpatients PM BEST WORKER (HCC) this procedure AND OR PELVIS and all are in the outpatients) results section. documented in this encounter Results Interpretation of Outside CT Abdomen and or Pelvis (05/21/2020 3:14 PM BEST WORKER) Anatomical Region Laterality Modality Abdomen, Pelvis, Abdominal RST LOS, Abdominal ARZ LOS, N/A Computed Tomography Abdominal FLA LOS, Other Specimen (Source) Anatomical Collection Method Collection Time Re ceived Time Location / / Volume Laterality 05/22/2020 9:51 AM BEST WORKER Impressions 05/22/2020 10:14 AM BEST WORKER 1. Mixed cystic and solid lesion appears [...] to accurately characterize. Narrative 05/22/2020 10:14 AM BEST WORKER EXAM: ??INTERPRETATION OF OUTSIDE CT ABDOMEN AND [...] herni as. Bilateral lung bases are clear. Yasir Daley M.D., Ph.D. IMG CT PROCEDURES documented in this encounter Visit Diagnoses Diagnosis Lesion Pancreas documented in this encounter
--- OUTSIDE RECORDS SUMMARY | 2021-11-03 07:10 | XMS_ITS | Encounter Summary ---
:1940 Author Organization [facility] Address [address] [place] [address] Care Team Providers Name Role Phone Unavailable Primary Care Provider Unavailable Encounter Details Date Type Department Care Team Description 05/25/2020 Clinical Support - Division of Bridgett Dimas [facility] Gastroenterology in [place], [place] [phone] [address] [facility] (Work) [place] [phone] Social History Tobacco Use Types Packs/Day [...] Visit Neurology Kenji Zaldivar M.D. [address] [place] [address] documented as of this encounter Visit Diagnoses Not on filedocumented in this encounter
--- OUTSIDE RECORDS SUMMARY | 2021-11-03 07:10 | XMS_ITS | Encounter Summary ---
:[address] [facility] Address [address] [place] [address] Care Team Providers Name Role Phone Unavailable Primary Care Provider Unavailable Encounter Details Date Type Department Care Team Description 12/18/2015 Hospital Encounter [facility] Jeb Berry M.D. [address] [place], [place] [phone] (Wo rk) Social History [...] encounter Progress Notes Delmar Luu M.D. - 12/18/2015 3:21 PM CDT [id number] The documentation for this visit is available in Synthesis IMPRESSION/REPORT/PLAN #1 Cataracts, nuclear both eyes. Glare testing today without evidence of visually impairing glare and equivocal improvement with trial frame. #2 Choroidal nevus, left eye. Stable, Plan: Optional change glasses. F/u one year. n/c Delmar Luu M.D./se Electronically Signed By: DELMAR LUU MD On: 12/25/2015 07:50 AM Source: [facility] MHSDOLBEYNONRADSYS Document Id: [id number] documented in this encounter Miscellaneous Notes Miscellaneous - Delmar Luu M.D. - 12/18/2015 4:15 PM CDT Ambulatory Patient Summary [facility] [address] [place] [phone] Visit Information Name: AZEB العراقي [facility] Number: [id number] Current Date: 12/18/2015 16:15:14 Physicians Attending Provider: DELMAR LUU MD Primary [...] the Following Medications: Medication list as of 12-18-15 16:15 Attention: If you have any medications at [...] Electronically Signed By: DELMAR LUU MD Signed On:18-DEC-2015 16:15:13 Your Allergies & Intolerances Substance Reaction Symptoms [...] if you dont have one. Go to [email or web address] and click on Create Your Account. Then, follow the directions to complete the online form. Youll be asked for your [facility] number which you can find at the top of this document. Your Goals/Additional instructions: Source: [facility] Document Id: [id number] Miscellaneous - Delmar Luu M.D. - 12/18/2015 4:15 PM CDT Ambulatory Discharge Medication List [facility] [address] [place], [place] [phone] Visit Information Name: AZEB العراقي [facility] Number: [id number] Visit Date: 12/18/2015 16:15:14 Attending Provider: DELMAR LUU MD Primary Care [...] the Following Medications: Medication list as of 12-18-15 16:15 Attention: If you have any medications at [...] Electronically Signed By: DELMAR LUU MD Signed On:18-DEC-2015 16:15:13 Additional Information: Source: [facility] Document Id: [id number] documented in this encounter Plan of Treatment Upcoming Encounters Date Type Specialty Care Team Description 11/19/2021 Clinical Communication Admitting/Central Scheduling 11/23/2021 Comprehensive Visit Neurology Kenji Zaldivar M.D. [address] [place] [address] documented as of this encounter Visit Diagnoses Not on filedocumented in this encounter
--- OUTSIDE RECORDS SUMMARY | 2021-11-03 07:11 | XMS_ITS | Encounter Summary ---
:1940 Author Organization [facility] Address [address] [place] [address] Care Team Providers Name Role Phone Unavailable Primary Care Provider Unavailable Encounter Details Date Type Department Care Team Description 02/10/2005 Hospital Encounter [facility] Yue Ayon M.D. [address] [place], [place] [address] Social History Tobacco Use Types Packs/Day Years [...] Visit Neurology Kenji Zaldivar M.D. [address] [place] [address] documented as of this encounter Visit Diagnoses Not on filedocumented in this encounter
--- OUTSIDE RECORDS SUMMARY | 2021-11-03 07:11 | XMS_ITS | Encounter Summary ---
:1940 Author Organization [facility] Address [address] [place] [address] Care Team Providers Name Role Phone Unavailable Primary Care Provider Unavailable Encounter Details Date Type Department Care Team Description 11/25/2009 Hospital Encounter [facility]X [facility] DERM Wilda Murphy M.D. [address] [facility], [facility] [address] [address] (Wo rk) Social History Tobacco Use Types [...] documented as of this encounter Progress Notes Thiago Murphy M.D. - 11/25/2009 12:00 AM CDT [id number] CHIEF COMPLAINT / REASON FOR VISIT Full skin examination. HISTORY OF PRESENT ILLNESS This 69-year-old female is here for a full skin exam. She has a history of dysplastic nevi on her left abdomen in July 2002, right anterior shoulder June 2001, left back June 2001, and left lateral mid-back January 2000. She also has been diagnosed with [place]'s disease in the past. Today she has concerns about a scaling area on her nose, which does not seem to want to go away. CURRENT MEDICATIONS Actonel. Synthroid. Calcium. Vitamin D. ALLERGIES None. SYSTEMS REVIEW Negative for problems such as head, eyes, ENT, respiratory, GI, , musculoskeletal, psychological, thyroid, diabetes, blood, headaches, neurological, or cancer. PAST MEDICAL / SURGICAL HISTORY 1) Arthritis. 2) Thyroid disease. SOCIAL HISTORY PATIENT PROFILE: She is retired. She enjoys reading, bridge, and gardening. HABITS: She does not smoke. She drinks alcohol 1 drink weekly. FAMILY HISTORY Significant for skin cancer. Negative for psoriasis, eczema, acne, hayfever, and asthma. VITAL SIGNS WEIGHT: 57.5 kg TEMP: 36.6 degreesC BLOOD PRESSURE: 134/84 PHYSICAL EXAM GENERAL: Alert and oriented x3 in no acute distress. Pleasant demeanor. Well groomed. Near ideal weight. SKIN: Fingers, toes, and nails within normal limits. Skin of face, neck, back, chest, abdomen, arms, legs, hands, feet, and buttocks shows multiple seborrheic keratoses on back and abdomen. She has an area of scaling on the tip of her nose and on the bridge of her nose, both of which were treated with liquid nitrogen. There was another lesion on the left lower eyelid also treated with liquid nitrogen. Her legs look good today with just a little bit of stasis changes. HEAD: Lips and teeth within normal limits. Hair of scalp and face within normal limits. EYES: Eyes and eyelids normal. THYROID: No thyromegaly. PERIPHERAL VESSELS: Peripheral vascular system intact. IMPRESSION / REPORT / PLAN 1) Full skin exam. 2) History of dysplastic nevi in the past. 3) Actinic keratoses, 3 treated with liquid nitrogen. 4) Seborrheic keratoses. 5) [place]'s disease, no treatment necessary. PLAN: She will follow up again in 1 year or sooner as needed. Thiago Murphy M.D. pas Electronically Signed By:THIAGO MURPHY MD On 12/02/2009 01:02 PM Source: [facility] MHSDOLBEYNONRADSYS Document Id: [id number] documented in this encounter Miscellaneous Notes Miscellaneous - Dawn Carnes L.P.N. - 11/25/2009 10:16 AM CDT Adult Dish Stacker Intake/History Adult Dish Stacker Intake/History Entered On: 11/25/2009 10:20 CDT Performed On: 11/25/2009 10:16 CDT by DAWN CARNES Intake Chief Complaint: FSE Concerns: nose Temperature Oral: 36.6DegC(Converted to: 97.9DegF) Systolic Blood Pressure: 134mmHg Diastolic Blood Pressure: 84mmHg NIBP Mean: 101mmHg BP Location: Left upper extremity Actual Weight: 57.500kg(Converted to: 126.766lb) Dosing Weight Clinic: 57.50kg DAWN CARNES - 11/25/2009 10:16 CDT Subjective Pain Symptoms: No DAWN CARNES - 11/25/2009 10:16 CDT Dependent Habits Tobacco Use/Currently Using: No DAWN CARNES F - 11/25/2009 10:16 CDT Allergies Source: [facility] POWERCHART Document Id: [id number] CDT!14 documented in this encounter Plan of Treatment Upcoming Encounters Date Type Specialty Care Team Description 11/19/2021 Clinical Communication Admitting/Central Scheduling 11/23/2021 Comprehensive Visit Neurology Kenji Zaldivar M.D. [address] [place] [phone] documented as of this encounter Procedures Procedure Name Priority Date/Time Associated Comments Diagnosis ZZPATHOLOGY NON-STORM SASH MAKER Routine 08/29/2007 12:00 Resu lts for this CYTOLOGY AM CDT procedure are i n the results section. ZZPATHOLOGY NON-STORM SASH MAKER Routine 06/27/2006 12:00 Resu lts for this CYTOLOGY AM CDT procedure are i n the results section. documented in this encounter Results ZZPATHOLOGY NON-STORM SASH MAKER CYTOLOGY (08/29/2007 12:00 AM CDT) Specimen (Source) Anatomical Location Collection Method / Collectio n Time Received Time / Laterality Volume 08/29/2007 [facility] - 02/29/20 11 3:12 PM SAFETY COUNCIL DIRECTOR PATIENT IMAGES Choose the Image button to view related documents. Historical Provider LAB PATHOLOGY/CYTOLOGY ORDER DANIEL Performing Organization Address City/State/ZIP Code Phon e Number [facility] ZZPATHOLOGY NON-STORM SASH MAKER CYTOLOGY (06/27/2006 12:00 AM CDT) Specimen (Source) Anatomical Location Collection Method / Collectio n Time Received Time / Laterality Volume 06/27/2006 [facility] - 02/29/20 11 3:11 PM SAFETY COUNCIL DIRECTOR PATIENT IMAGES Choose the Image button to view related documents. Historical Provider LAB PATHOLOGY/CYTOLOGY ORDER DANIEL Performing Organization Address City/State/ZIP Code Phon e Number [facility] documented in this encounter Visit Diagnoses Not on filedocumented in this encounter
--- OUTSIDE RECORDS SUMMARY | 2021-11-03 07:11 | XMS_ITS | Encounter Summary ---
:1940 Author Organization [facility] Address [address] [place] [address] Care Team Providers Name Role Phone Unavailable Primary Care Provider Unavailable Encounter Details Date Type Department Care Team Description 03/05/2010 Hospital Encounter HX [facility] DERM Wilda Murphy M.D. [address] [facility], [facility] [address] [address] 113 (Wo rk) Social History Tobacco Use [...] encounter Progress Notes Thiago Murphy M.D. - 03/05/2010 12:00 AM CST [id number] HISTORY OF PRESENT ILLNESS This 70-year-old female is here for recheck of her nose. She was seen in November and had a lesion frozen, but it did not completely go away. PHYSICAL EXAM SKIN: Exam of the nose shows a 4 mm scaly patch on the mid nose. PROCEDURE: Informed consent was signed. 1% Lidocaine with epinephrine used for anesthesia. The lesion was shaved very lightly. Drysol used for hemostasis. Vaseline and bandage applied. IMPRESSION / REPORT / PLAN 1) Actinic keratosis, rule out squamous cell carcinoma. Care instructions were given. We will contact her with the results when available and arrange follow up Kasey Muhammad Electronically Signed By:THIAGO MURPHY MD On 03/30/2010 03:23 PM Source: [facility] MHSDOLBEYNONRADSYS Document Id: [id number] GER MENTAL HEALTH documented in this encounter Miscellaneous Notes Miscellaneous - Dawn Carnes L.P.N. - 03/05/2010 2:20 PM CST Ambulatory Vitals Height Weight Ambulatory Vitals Height Weight Entered On: 03/05/2010 14:22 MANAGER MENTAL HEALTH Performed On: 03/05/2010 14:20 MANAGER MENTAL HEALTH by DAWN CARNES Vitals/Ht/Wt Systolic Blood Pressure: 136mmHg Diastolic Blood Pressure: 82mmHg NIBP Mean: 100mmHg BP Location: Right upper extremity DAWN CARNES - 03/05/2010 14:20 MANAGER MENTAL HEALTH Source: [facility] Document Id: [id number] MANAGER MENTAL HEALTH!6 GER MENTAL HEALTH Miscellaneous - Dawn Carnes L.P.N. - 03/05/2010 2:17 PM CST Adult Tax Associate Attorney Intake/History Adult Tax Associate Attorney Intake/History Entered On: 03/05/2010 14:19 MANAGER MENTAL HEALTH Performed On: 03/05/2010 14:17 MANAGER MENTAL HEALTH by DAWN CARNES Intake Chief Complaint: Recheck nose Systolic Blood Pressure: 148mmHg (HI) Diastolic Blood Pressure: 84mmHg NIBP Mean: 105mmHg BP Location: Right upper extremity DAWN CARNES - 03/05/2010 14:17 MANAGER MENTAL HEALTH Subjective Pain Symptoms: No DAWN CARNES - 03/05/2010 14:17 MANAGER MENTAL HEALTH Dependent Habits Tobacco Use/Currently Using: No DAWN CARNES - 03/05/2010 14:17 MANAGER MENTAL HEALTH Allergies Allergies (Active) NKA Estimated Onset Date: Unspecified ; Created By: DAWN CARNES; Reaction Status: Active ; Category: Drug ; Substance: NKA ; Type: Allergy ; Updated By: DAWN CARNES; Reviewed Date: 11/25/200910:20 CDT Source: [facility] Document Id: [id number] MANAGER MENTAL HEALTH!11 GER MENTAL HEALTH documented in this encounter Plan of Treatment Upcoming Encounters Date Type Specialty Care Team Description 11/19/2021 Clinical Communication Admitting/Central Scheduling 11/23/2021 Comprehensive Visit Neurology Kenji Zaldivar M.D. [address] [place] [phone] documented as of this encounter Procedures Procedure Name Priority Date/Time Associated Diagnosis Comme nts SURGICAL PATHOLOGY Routine 03/05/2010 12:00 AM Re sults for this MANAGER MENTAL HEALTH procedure are i n the results section. documented in this encounter Results Pathology Surgical Pathology (03/05/2010 12:00 AM MANAGER MENTAL HEALTH) Specimen (Source) Anatomical Location Collection Method / Collectio n Time Received Time / Laterality Volume 03/05/2010 Narrative [facility] - 03/23/20 10 10:00 AM MANAGER MENTAL HEALTH PATIENT IMAGES Choose the Image button to view related documents. Historical Provider LAB SURG PATH ORDERABLES Performing Organization Address City/State/ZIP Code Phon e Number [facility] documented in this encounter Visit Diagnoses Not on filedocumented in this encounter
--- OUTSIDE RECORDS SUMMARY | 2021-11-03 07:11 | XMS_ITS | Encounter Summary ---
:1940 Author Organization [facility] Address [address] [place] [address] Care Team Providers Name Role Phone Unavailable Primary Care Provider Unavailable Encounter Details Date Type Department Care Team Description 12/13/2006 Hospital Encounter [facility]X [facility] Jeb Berry M.D. [address] [place], [place] [phone] (Wo rk) Social History [...] More than 4 times per year 06/19/2021 taoist services? Do you belong to any clubs [...] 11/23/2021 Comprehensive Visit Neurology Kenji Zaldivar M.D. [address] [place] [phone] documented as of this encounter Visit Diagnoses Not on filedocumented in this encounter
--- OUTSIDE RECORDS SUMMARY | 2021-11-03 07:11 | XMS_ITS | Encounter Summary ---
:1940 Author Organization [facility] Address [address] [place] [address] Care Team Providers Name Role Phone Unavailable Primary Care Provider Unavailable Encounter Details Date Type Department Care Team Description 04/30/2009 Hospital Encounter [facility]X [facility] Jeb Berry M.D. [address] [place], [place] [phone] (Wo rk) Social History [...] 11/23/2021 Comprehensive Visit Neurology Kenji Zaldivar M.D. [address] [place] [phone] documented as of this encounter Visit Diagnoses Not on filedocumented in this encounter
--- OUTSIDE RECORDS SUMMARY | 2021-11-03 07:11 | XMS_ITS | Encounter Summary ---
:1940 Author Organization [facility] Address [address] [place] [address] Care Team Providers Name Role Phone Unavailable Primary Care Provider Unavailable Encounter Details Date Type Department Care Team Description 06/01/2009 Hospital Encounter [facility]X [facility] Jeb Berry M.D. [address] [place], [place] [phone] (Wo rk) Social History [...] More than 4 times per year 06/19/2021 rastafari services? Do you belong to any clubs [...] 11/23/2021 Comprehensive Visit Neurology Kenji Zaldivar M.D. [address] [place] [phone] documented as of this encounter Visit Diagnoses Not on filedocumented in this encounter
--- OUTSIDE RECORDS SUMMARY | 2021-11-03 07:11 | XMS_ITS | Encounter Summary ---
:1940 Author Organization [facility] Address [address] [place] [address] Care Team Providers Name Role Phone Unavailable Primary Care Provider Unavailable Encounter Details Date Type Department Care Team Description 06/27/2006 Hospital Encounter [facility]X [facility] INTERNMED Mikala Pemberton M.D. [address] [place], [place] [phone] (Wo rk) Social History Tobacco Use Types [...] Comprehensive Visit Neurology Kenji Zaldivar M.D. [address] [place] [phone] documented as of this encounter Visit Diagnoses Not on filedocumented in this encounter
--- OUTSIDE RECORDS SUMMARY | 2021-11-03 07:11 | XMS_ITS | Encounter Summary ---
:1940 Author Organization [facility] Address [address] [place] [address] Care Team Providers Name Role Phone Unavailable Primary Care Provider Unavailable Encounter Details Date Type Department Care Team Description 12/08/2010 Hospital Encounter [facility] Jeb Berry M.D. [address] [place], [place] [phone] (Wo rk) Social History [...] More than 4 times per year 06/19/2021 catholic services? Do you belong to any [...] documented as of this encounter Progress Notes Conversion, Historical Provider Ser - 12/08/2010 9:09 AM CDT Eye Services [facility] Exam [facility] Services Clinic Exam Entered On: 12/08/2010 9:39 CDT Performed On: 12/08/2010 9:09 CDT by KARI ACHARYA Chief Complaint and History Chief Complaint: Routine exam Pain Symptoms: No Comment: pt would like mole checked in lt eye . pt feels rt eye distance vision has decreased. ROS -heart and lungs wnl Family History Reviewed: 12/08/2010 CDT KARI ACHARYA - 12/08/2010 9:09 CDT Optometry Exam Familty History Grid Cataract: Self Thyroid: Self Hypertension: Self KARI ACHARYA - 12/08/2010 9:09 CDT Vision Testing Right Eye Vision Testing: With glasses - primary, 20/40, +2 Left Eye Vision Testing: With glasses - primary, 20/25, -2 Right Eye Vision Testing Comment: PHNI Near Vision Right Eye: With glasses - primary, J-1+ Near Vision Left Eye: With glasses - primary, J-1+ KARI ACHARYA - 12/08/2010 9:09 CDT Refraction Current Glasses Rx Grid Glasses/RE Glasses/LE Sphere: +2.50 +4.00 CYL: +1.00 +0.75 [place]: 165 40 ADD: +2.50 +2.50 KARI ACHARYA - 12/08/2010 9:09 CDT KARI ACHARYA - 12/08/2010 9:09 CDT Right Eye Manifest Grid Date: 12/08/2010 CDT Sphere: +1.75 CYL: +1.00 [place]: 175 Visual Acuity Distance: 20/20, -1 ADD: +2.50 Visual Acuity Near: J-1+ AKRI ACHARYA - 12/08/2010 9:09 CDT Left Eye Manifest Grid Sphere: +4.00 CYL: +0.75 [place]: 33 Visual Acuity Distance: 20/20, -1 ADD: +2.50 Visual Acuity Near: J-1+ KARI ACHARYA - 12/08/2010 9:09 CDT Ocular Testing EOMS: Normal Comment: 3-2 3-2 Pupils: PERRLA Comment: FTCF KARI ACHARYA - 12/08/2010 9:09 CDT Intraoccular Pressures Intraoccular Pressures Grid Date: 12/08/2010 CDT 12/08/2010 CDT Eye: RE LE Applanation: 14 13 Comments: 9:36 KARI ACHARYA - 12/08/2010 9:09 CDT KARI ACHARYA - 12/08/2010 9:09 CDT Eye Drops Exam Phenylephrine 2.5% Eye Drops Eye: Both eyes Phenylephrine 2.5% Eye Drops Amount: One drop Phenylephrine 2.5% Eye Drops Time: 9:39 REJECT OPENER Tropicamide 0.5% Eye Drops Eye: Both eyes Tropicamide 0.5% Eye Drops Amount: One drop Tropicamide 10% Eye Drops Time: 9:39 REJECT OPENER KARI ACHARYA - 12/08/2010 9:09 CDT Source: [facility] POWERCHART Document Id: [id number] CDT!68 Delmar Luu M.D. - 12/08/2010 12:00 AM CDT [id number] CHIEF COMPLAINT / REASON FOR VISIT Routine exam. IMPRESSION / REPORT / PLAN 1) Cataracts. 2) Posterior vitreous detachment with vitreous floaters, right eye greater than left. No evidence of retinal tears. PLAN: Update glasses. Return to clinic in 1 year for complete exam. Delmar Luu M.D. daa Electronically Signed By: DELMAR LUU MD On: 12/13/2010 07:45 AM Source: [facility] MHSDOLBEYNONRADSYS Document Id: [id number] documented in this encounter Miscellaneous Notes Miscellaneous - Delmar Luu M.D. - 12/08/2010 9:59 AM CDT Ambulatory Patient Summary [facility] [address] [place] [address] Visit Information Name: AZEB العراقي Current Date: 12/08/2010 09:59:30 Primary Care Provider: ELLIE MARCH MD Your Medications Here is a list of your medications. It is important to take your medications as directed. Use a pillbox or chart to help remind you to take your medications. Please let your doctor or nurse know if you have problems taking your medications. Medication/Strength Dose Route Frequency Indications/Special Instructions/Comments ocular lubricant (Artificial Tears) calcium citrate (Citracal) cholecalciferol (Vitamin D3 1000 intl units oral tablet) levothyroxine (Synthroid) Misc Prescription (Misc Prescription) Your Allergies & Intolerances Substance Reaction Symptoms Category Comments NKA Drug Your Problem List Problem Status Onset Comments Osteoarthrosis, Unspecified Whether Generalized or Localized, Involving Unspecified Site Active 06/27/2006 Unspecified Hypothyroidism Active 06/27/2006 Osteoporosis, Unspecified Active 06/27/2006 Unspecified Essential Hypertension Active 06/27/2006 Screening for Malignant Neoplasms of the Skin Active 08/29/2007 Other Seborrheic Keratosis Active 08/29/2007 Your Recommendations We want to make sure you get the tests, immunizations, and guidance you need to stay healthy. Here is a customized list of recommendations, based on information we have in your medical record. Your doctor may have additional recommendations for you, based on your personal medical history and risk factors. You can help us by calling us to make an appointment when you are due for your tests. Additional information regarding recommendations: Test/Treatment Last Done Next Due Additional Information Screening Bone Density Once Women greater than age 64 12/14/2005 Completed Checks for bone loss and osteoporosis. Screening Colonoscopy or Flex Sig or Occult Blood X3 05/11/2004 02/11/2011 Checks for signs of cancer of the colon. Screening Mammogram every 1 year Women 40-75 09/14/2007 09/13/2008 X-rays of breast to check for breast cancer. Lipid Panel every 5 years Age 20-75 08/29/2007 08/27/2012 Checks blood for good (HDL) and bad (LDL) cholesterol. Know your numbers, they are one indicator of your risk for heart attack and stroke. Vaccine: Flu every 1 year 03/04/2004 03/04/2005 Immunization to help prevent you from getting the flu strain expected to be a problem for that year's flu season. Vaccine: Pneumococcal Once 12/08/2010 Immunization to help prevent you from getting 23 kinds of pneumococcal bacteria that can lead to pneumonia, bacteremia and meningitis. Vaccine: Tetanus every 10 years 08/29/2007 08/26/2017 Immunization to help prevent you from getting the serious disease Tetanus (Lockjaw). Your Upcoming Appointments Date Time Location Reason Provider 02/01/2011 10:45 [facility] Derm [facility] 12 MONTHS Your Goals/Additional instructions: Source: [facility] POWERCHART Document Id: [id number] Miscellaneous - Delmar Luu M.D. - 12/08/2010 9:59 AM CDT Ambulatory Depart Summary [address] [address] Visit Information Name: AZEB العراقي Current Date: 12/08/2010 09:59:29 Primary Care Provider: ELLIE MARCH MD, PHYLLIS JANE has been given the following list of medications: Your Medications It is important to take your medications as directed. Use a pill box or chart to help remind you to take your medications. Please let your doctor or nurse know if you have problems taking your medications. Medication/Strength Dose Route Frequency Indications/Special Instructions/Comments ocular lubricant (Artificial Tears) calcium citrate (Citracal) cholecalciferol (Vitamin D3 1000 intl units oral tablet) levothyroxine (Synthroid) Misc Prescription (Misc Prescription) Additional Information: Source: [facility] POWERCHART Document Id: [id number] Electronically signed by Conversion, [facility] Fre[employer] Brakeman [id number] at 08/28/2016 2:52 PM CDT documented in this encounter Plan of Treatment Upcoming Encounters Date Type Specialty Care Team Description 11/19/2021 Clinical Communication Admitting/Central Scheduling 11/23/2021 Comprehensive Visit Neurology Kenji Zaldivar M.D. [address] [place] [phone] documented as of this encounter Visit Diagnoses Not on filedocumented in this encounter
--- OUTSIDE RECORDS SUMMARY | 2021-11-03 07:11 | XMS_ITS | Encounter Summary ---
:1940 Author Organization [facility] Address [address] [place] [address] Care Team Providers Name Role Phone Unavailable Primary Care Provider Unavailable Encounter Details Date Type Department Care Team Description 09/10/2007 Hospital Encounter [facility] INTERNMED Mikala Pemberton M.D. [address] [place], [place] [address] (Wo rk) Social History Tobacco Use [...] Communication Admitting/Central Scheduling 11/23/2021 Comprehensive Visit Neurology Kneji Zaldivar M.D. [address] [place] [phone] documented as of this encounter Visit Diagnoses Not on filedocumented in this encounter
--- OUTSIDE RECORDS SUMMARY | 2021-11-03 07:11 | XMS_ITS | Encounter Summary ---
:1940 Author Organization [facility] Address [address] [place] [address] Care Team Providers Name Role Phone Unavailable Primary Care Provider Unavailable Encounter Details Date Type Department Care Team Description 01/17/2014 Hospital Encounter [facility] Jeb Berry M.D. [address] [place], [place] [phone] (Wo rk) Social History [...] encounter Progress Notes Delmar Luu M.D. - 01/17/2014 1:05 PM CDT [id number] The documentation for this visit is available in Synthesis IMPRESSION/REPORT/PLAN #1 Cataracts, nuclear both eyes. #2 Choroidal nevus, left eye. Stable, Plan: Update glasses. U/v protection. F/u one year. Delmar Luu M.D./yajaira Electronically Signed By: DELMAR LUU MD On: 01/22/2014 07:56 AM Source: [facility] MHSDOLBEYNONRADSYS Document Id: [id number] documented in this encounter Miscellaneous Notes Miscellaneous - Delmar Luu M.D. - 01/17/2014 2:00 PM CDT Ambulatory Patient Summary [facility] [address] [place] [id number] Visit Information Name: AZEB العراقي [facility] Number: [id number] Current Date: 01/17/2014 14:00:58 Physicians Attending Provider: DELMAR LUU MD Primary Care Provider: PCP, UNASSIGNED - AZEB GUTIERREZ TAWANA has been given the following list of [...] Take Indications/Special Instructions/Comments/Notes for Patient Medication Changes/Routing alendronate-cholecalciferol (Fosamax Plus D) Oral calcium citrate (Citracal) cholecalciferol (Vitamin D3 1000 intl units oral tablet) hydrochlorothiazide (hydrochlorothiazide) Oral, once a day levothyroxine (Synthroid) ocular lubricant (Artificial Tears) Stop Taking the Following Medications: Medication list as of 01-17-14 14:00 Attention: If you have any medications at [...] Electronically Signed By: DELMAR LUU MD Signed On:17-JAN-2014 14:00:47 Your Allergies & Intolerances Substance Reaction Symptoms Category Comments No Known Allergies Drug Your Problem List Problem Status Onset Comments DJD Active 06/27/2006 Hypothyroidism On Replacement Active 06/27/2006 Osteoporosis Active 06/27/2006 Hypertension Active 06/27/2006 Skin Ca Screening Exam Active 08/29/2007 Seborrheic Keratosis Active 08/29/2007 Skin Lesion, Uncertain Beh Active 02/01/2011 Actinic Keratosis Active 12/28/2011 Your Upcoming Appointments Date Time Location Provider 03/18/2014 14:15 TAMMY Murphy MD, Jazz Mcclellan Attention: Contact your local Clinic if further appointment detail needed. Your Goals/Additional instructions: Source: [facility] POWERCHART Document Id: [id number] Miscellaneous - Delmar Luu M.D. - 01/17/2014 2:00 PM CDT Ambulatory Discharge Medication List [facility] [address] [place], [place] [phone] Visit Information Name: AZEB العراقي [facility] Number: [id number] Visit Date: 01/17/2014 14:00:57 Attending Provider: DELMAR LUU MD Primary Care Provider: PCP, UNASSIGNED - OW AZEB العراقي has been given the following list of medications: Your Medications It is important to take your medications as directed. Use a pill box or chart to help remind you to take your medications. Please let your doctor or nurse know if you have problems taking your medications. Medication/Strength How to Take Indications/Special Instructions/Comments/Notes for Patient Medication Changes/Routing alendronate-cholecalciferol (Fosamax Plus D) Oral calcium citrate (Citracal) cholecalciferol (Vitamin D3 1000 intl units oral tablet) hydrochlorothiazide (hydrochlorothiazide) Oral, once a day levothyroxine (Synthroid) ocular lubricant (Artificial Tears) Stop Taking the Following Medications: Medication list as of 01-17-14 14:00 Attention: If you have any medications at [...] Electronically Signed By: DELMAR LUU MD Signed On:17-JAN-2014 14:00:47 Additional Information: Source: [facility] POWERCHART Document Id: [id number] documented in this encounter Plan of Treatment Upcoming Encounters Date Type Specialty Care Team Description 11/19/2021 Clinical Communication Admitting/Central Scheduling 11/23/2021 Comprehensive Visit Neurology Kenji Zaldivar M.D. [address] [place] [phone] documented as of this encounter Visit Diagnoses Not on filedocumented in this encounter
--- OUTSIDE RECORDS SUMMARY | 2021-11-03 07:11 | XMS_ITS | Encounter Summary ---
:1940 Author Organization [facility] Address [address] [place] [address] Care Team Providers Name Role Phone Unavailable Primary Care Provider Unavailable Encounter Details Date Type Department Care Team Description 07/24/2012 Hospital Encounter [facility]X [facility] DERM Wilda Murphy M.D. [address] [facility], [facility] [address] [place] [phone] (Wo rk) Social History Tobacco Use [...] Sign Reading Time Taken Comments Blood Pressure 112/72 07/24/2012 9:46 AM CDT Pulse - - Temperature - - Respiratory Rate - - Oxygen Saturation - - Inhaled Oxygen Concentration - - Weight - - Height - - Body Mass Index - - documented in this encounter Medications at Time [...] encounter Progress Notes Thiago Murphy M.D. - 07/24/2012 9:26 AM CDT [id number] CHIEF COMPLAINT/REASON FOR VISIT Followup Efudex. HISTORY OF PRESENT ILLNESS This 72-year-old female is here for followup of Efudex use on her nose, which she finished about 6 weeks ago. She says there were 4 spots that flared up red, but it really was not too bad. In February 2012 a cyst in the pubic area had had I&D and she says that is doing fine. PHYSICAL EXAMINATION Exam of face shows mild photo damage with lentigines; all lesions on the nose have healed nicely. IMPRESSION/REPORT/PLAN Recheck after Efudex use, doing well. PLAN: She may use Efudex for spot treatment on any pink, scaly areas that might come up on her face or anywhere on her body. The procedure was reviewed, using the Efudex 2 times a day for 2 weeks. She was very happy with that and will apply as needed and follow up as needed. Thiago Murphy M.D./isi Electronically Signed By: THIAGO MURPHY MD On: 08/02/2012 10:50 AM Source: [facility] MHSDOLBEYNONRADSYS Document Id: [id number] documented in this encounter Miscellaneous Notes Miscellaneous - Mayra Robertson, C.M.A. - 07/24/2012 9:46 AM CDT Adult Chief Underwriter Intake/History Adult Chief Underwriter Intake/History Entered On: 07/24/2012 9:49 CDT Performed On: 07/24/2012 9:46 CDT by MAYRA ROBERTSON Intake Chief Complaint : f/u ak's Systolic Blood Pressure : 112 mmHg Diastolic Blood Pressure : 72 mmHg NIBP Mean : 85 mmHg BP Location : Right upper extremity Blood Pressure Cuff Size : Regular MAYRA ROBERTSON - 07/24/2012 9:46 CDT General Info Information Given By : Patient Languages : Armenian MAYRA ROBERTSON - 07/24/2012 9:46 CDT Subjective Pain Symptoms : No MAYRA ROBERTSON 07/24/2012 9:46 CDT Dependent Habits Tobacco Use/Currently Using : No Smoking Status : Never smoker MAYRA ROBERTSON - 07/24/2012 9:46 CDT Tobacco Use Grid Last Use : never MAYRA ROBERTSON - 07/24/2012 9:46 CDT Source: [facility] POWERCHART Document Id: [id number] CDT!19 documented in this encounter Plan of Treatment Upcoming Encounters Date Type Specialty Care Team Description 11/19/2021 Clinical Communication Admitting/Central Scheduling 11/23/2021 Comprehensive Visit Neurology Kenji Zaldivar M.D. [address] [place] [phone] documented as of this encounter Visit Diagnoses Not on filedocumented in this encounter
--- OUTSIDE RECORDS SUMMARY | 2021-11-03 07:11 | XMS_ITS | Encounter Summary ---
:1940 Author Organization [facility] Address [address] [place] [address] Care Team Providers Name Role Phone Unavailable Primary Care Provider Unavailable Encounter Details Date Type Department Care Team Description 01/15/2013 Hospital Encounter [facility]X [facility] Jeb Berry M.D. [address] [place], [place] [phone] (Wo rk) Social History [...] or slept in a correction (including now)? Sex Assigned at Date Recorded [...] documented as of this encounter Progress Notes Etta Gr, C.O.A. - 01/15/2013 1:36 PM CDT Eye Services Clinic Exam Eye Services Clinic Exam Entered On: 01/15/2013 13:52 CDT Performed On: 01/15/2013 13:36 CDT by ETTA GR Chief Complaint and History Chief Complaint : Routine exam Pain Symptoms : No Smoking Status : Never smoker Comment : CE- Pt states didn't change her glasses last time, Pt wants to update her glasses. Feels night vision more diff, may be cataracts worseneing. Family History Reviewed : 01/15/2013 CDT ETTA GR - 01/15/2013 13:36 CDT Optometry Exam Familty History Grid Cataract : Self Thyroid : Self Hypertension : Self ETTA GR - 01/15/2013 13:36 CDT Vision Testing Right Eye Vision Testing : With glasses - primary, 20/30 Left Eye Vision Testing : With glasses - primary, 20/20, -1 Near Vision Right Eye : With glasses - primary, J-1+ Near Vision Left Eye : With glasses - primary, J-1+ ETTA GR - 01/15/2013 13:36 CDT Refraction Current Glasses Rx Grid Glasses/RE Glasses/LE Sphere : +1.75 +4.00 CYL : +1.00 +0.75 [place] : 175 30 ADD : +2.50 +2.50 ETTA GR - 01/15/2013 13:36 CDT ETTA GR 01/15/2013 13:36 CDT Right Eye Manifest Grid Date : 12/08/2010 CDT 12/28/2011 CDT 01/15/2013 CDT Performed by : [employer] Sphere : +1.75 +1.50 +1.00 CYL : +1.00 +1.00 +1.00 [place] : 175 175 175 Visual Acuity Distance : 20/20, -1 20/25, -2 20/25 ADD : +2.50 +2.50 Visual Acuity Near : J-1+ J-1+ ETTA GR 01/15/2013 13:36 CDT ETTA GR 01/15/2013 13:36 CDT ETTA GR 01/15/2013 13:36 CDT Left Eye Manifest Grid Date : 12/28/2011 CDT 01/15/2013 CDT Performed by : [employer] Sphere : +4.00 +4.00 +4.25 CYL : +0.75 +0.75 +0.25 [place] : 33 30 30 Visual Acuity Distance : 20/20, -1 20/25 20/20 ADD : +2.50 +2.50 Visual Acuity Near : J-1+ J-1+ ETTA GR 01/15/2013 13:36 CDT ETTA GR 01/15/2013 13:36 CDT ETTA GR 01/15/2013 13:36 CDT Ocular Testing EOMS : Normal Comment : 3-1 3-1 Pupils : PERRLA [employer] [place] : RE Normal, LE Normal ETTA GR 01/15/2013 13:36 CDT Intraoccular Pressures Intraoccular Pressures Grid Date : 12/08/2010 CDT 12/08/2010 CDT 12/28/2011 CDT 12/28/2011 CDT Eye : RE LE RE LE Applanation : 14 13 15 13 Eye Drops : Fluress Strip Fluress Strip Comments : 9:36 ETTA GR 01/15/2013 13:36 SHEYLAT ETTA GR 01/15/2013 13:36 SHEYLAT ETTA GR 01/15/2013 13:36 CDT ETTA GR 01/15/2013 13:36 CDT Date : 01/15/2013 CDT 01/15/2013 CDT Eye : RE LE Applanation : 14 14 Eye Drops : Fluress Fluress Comments : 1:50 1:50 ETTA GR - 01/15/2013 13:36 CDT ETTA GR - 01/15/2013 13:36 CDT Eye Drops Exam Other Medication Eye Drops : N&M Other Medication Eye Drops Eye : Both eyes Other Medication Eye Drops Amnt : One drop Other Medication Eye Drops Time : 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 POWERCHART Document Id: [id number] CDT!120 documented in this encounter H&P Notes Delmar Luu M.D. - 01/15/2013 1:15 PM CDT [id number] CHIEF COMPLAINT/REASON FOR VISIT Routine ophthalmic exam. IMPRESSION/REPORT/PLAN 1. Enlarging cataracts both eyes. 2. Posterior vitreous detachment with no evidence of retinal tear. PLAN: Retinal detachment precautions reviewed. Update glasses prescription. Follow up in 1 year. Delmar Luu M.D./meena Electronically Signed By: DELMAR LUU MD On: 01/17/2013 08:00 AM Source: [facility] MHSDOLBEYNONRADSYS Document Id: [id number] documented in this encounter Miscellaneous Notes Miscellaneous - Delmar Luu M.D. - 01/15/2013 2:07 PM CDT Ambulatory Patient Summary [facility] [address] [place] [phone] Visit Information Name: AZEB العراقي [facility] Number: [id number] Current Date: 01/15/2013 14:07:53 Physicians Attending Provider: DELMAR LUU MD Primary Care Provider: ELLIE MARCH MD, PHYLLIS [...] your medications. Medication/Strength Dose Route Frequency Indications/Special Instructions/Comments/Notes alendronate-cholecalciferol (Fosamax Plus D) Oral hydrochlorothiazide (hydrochlorothiazide) Oral once a day ocular lubricant (Artificial Tears) calcium citrate (Citracal) cholecalciferol (Vitamin D3 1000 intl units oral tablet) levothyroxine (Synthroid) Attention: If you have any medications at home that are not on this list, DO NOT take them until youcontact your provider for clarification. Your Allergies & Intolerances Substance Reaction Symptoms Category Comments No Known Allergies Drug Your Problem List Problem Status Onset Comments DJD Active 06/27/2006 Hypothyroidism On Replacement Active 06/27/2006 Osteoporosis Active 06/27/2006 Hypertension Active 06/27/2006 Skin Ca Screening Exam Active 08/29/2007 Seborrheic Keratosis Active 08/29/2007 Skin Lesion, Uncertain Beh Active 02/01/2011 Actinic Keratosis Active 12/28/2011 Your Upcoming Appointments Date Time Location Reason Provider No Appointments found Attention: Contact your local Clinic if further appointment detail needed. Your Goals/Additional instructions: Source: [facility] POWERCHART Document Id: [id number] Miscellaneous - Delmar Luu M.D. - 01/15/2013 2:07 PM CDT Ambulatory Depart Summary [facility] [address] [facility] [place] [address] Visit Information Name: KEVIN AZEB TAWANA [facility] Number: [id number] Visit Date: 01/15/2013 14:07:53 Attending Provider: DELMAR LUU MD Primary Care Provider: ELLIE MARCH MD, PHYLLIS JANE has been given the following list of medications: Your Medications It is important to take your medications as directed. Use a pill box or chart to help remind you to take your medications. Please let your doctor or nurse know if you have problems taking your medications. Medication/Strength Dose Route Frequency Indications/Special Instructions/Comments/Notes alendronate-cholecalciferol (Fosamax Plus D) Oral hydrochlorothiazide (hydrochlorothiazide) Oral once a day ocular lubricant (Artificial Tears) calcium citrate (Citracal) cholecalciferol (Vitamin D3 1000 intl units oral tablet) levothyroxine (Synthroid) Attention: If you have any medications at home that are not on this list, DO NOT take them until youcontact your provider for clarification. Additional Information: Source: [facility] POWERCHART Document Id: [id number] documented in this encounter Plan of Treatment Upcoming Encounters Date Type Specialty Care Team Description 11/19/2021 Clinical Communication Admitting/Central Scheduling 11/23/2021 Comprehensive Visit Neurology Kenji Zaldivar M.D. [address] [place] [phone] documented as of this encounter Visit Diagnoses Not on filedocumented in this encounter
--- OUTSIDE RECORDS SUMMARY | 2021-11-03 07:11 | XMS_ITS | Encounter Summary ---
:1940 Author Organization [facility] Address [address] [place] [address] Care Team Providers Name Role Phone Unavailable Primary Care Provider Unavailable Encounter Details Date Type Department Care Team Description 03/11/2008 Hospital Encounter [facility]X [facility] Jeb Berry M.D. [address] [place], [place] [phone] (Wo rk) Social History [...] 11/23/2021 Comprehensive Visit Neurology Kenji Zaldivar M.D. [address] [place] [phone] documented as of this encounter Visit Diagnoses Not on filedocumented in this encounter
--- OUTSIDE RECORDS SUMMARY | 2021-11-03 07:11 | XMS_ITS | Encounter Summary ---
:1940 Author Organization [facility] Address [address] [place] [address] Care Team Providers Name Role Phone Unavailable Primary Care Provider Unavailable Encounter Details Date Type Department Care Team Description 08/17/2005 Hospital Encounter [facility] Jeb Berry M.D. [address] [place], [place] [phone] (Wo rk) Social History [...] 11/23/2021 Comprehensive Visit Neurology Kenji Zaldivar M.D. [address] [place] [phone] documented as of this encounter Visit Diagnoses Not on filedocumented in this encounter
--- OUTSIDE RECORDS SUMMARY | 2021-11-03 07:11 | XMS_ITS | Encounter Summary ---
:1940 Author Organization [facility] Address [address] [place] [address] Care Team Providers Name Role Phone Unavailable Primary Care Provider Unavailable Encounter Details Date Type Department Care Team Description 03/12/2009 Hospital Encounter [facility] Jeb Berry M.D. [address] [place], [place] [phone] (Wo rk) Social History [...] 11/23/2021 Comprehensive Visit Neurology Kenji Zaldivar M.D. [address] [place] [phone] documented as of this encounter Visit Diagnoses Not on filedocumented in this encounter
--- OUTSIDE RECORDS SUMMARY | 2021-11-03 07:11 | XMS_ITS | Encounter Summary ---
:1940 Author Organization [facility] Address [address] [place] [address] Care Team Providers Name Role Phone Unavailable Primary Care Provider Unavailable Encounter Details Date Type Department Care Team Description 12/26/2007 Hospital Encounter [facility] MRI Provider, Historic al Social History Tobacco Use Types Packs/Day Years [...] Visit Neurology Kenji Zaldivar M.D. [address] [place] [phone] documented as of this encounter Visit Diagnoses Not on filedocumented in this encounter
--- OUTSIDE RECORDS SUMMARY | 2021-11-03 07:11 | XMS_ITS | Encounter Summary ---
:1940 Author Organization [facility] Address [address] [place] [address] Care Team Providers Name Role Phone Unavailable Primary Care Provider Unavailable Encounter Details Date Type Department Care Team Description 02/01/2011 Hospital Encounter [facility] DERM Wilda Murphy M.D. [address] [facility], [facility] [address] [phone] (Wo rk) Social History Tobacco Use [...] encounter Progress Notes Thiago Murphy M.D. - 02/01/2011 12:00 AM CST [id number] CHIEF COMPLAINT / REASON FOR VISIT Full skin examination. HISTORY OF PRESENT ILLNESS This 70-year-old female is here for a full skin examination. She has a history of dysplastic nevi on left abdomen in July 2002, right anterior shoulder in June 2001, left back in June 2001, left lateral mid back in January 2000. Today, she has concerns about a spot on her nose that has become kind of depressed. It the same area we did a biopsy before and there is a bump on one side. And then she also has a scaly spot on her scalp. This started in about November, real tiny, and now is growing and sometimes it bleeds a little bit. CURRENT MEDICATIONS Reviewed and no changes per EMR. ALLERGIES None. SYSTEMS REVIEW Negative for problems such as head, eyes, ENT, respiratory, GI, , musculoskeletal, psychological, thyroid, diabetes, blood, headaches, neurological, or cancer. PAST MEDICAL / SURGICAL HISTORY 1) Arthritis. 2) Thyroid disease. SOCIAL HISTORY She is retired. Enjoys reading, hiking, playing Bridge. Does not smoke. Drinks alcohol once a week. FAMILY HISTORY Skin cancer in her father. VITAL SIGNS BLOOD PRESSURE: 136/82 WEIGHT: 57.7 kg TEMP: 36.6 degreesC PHYSICAL EXAM GENERAL: Alert and oriented x3 in no acute distress. Pleasant demeanor. Well groomed. Near ideal weight. SKIN: Fingers, toes, and nails within normal limits. Skin of face, neck, back, chest, abdomen, arms, legs, hands, feet, and buttocks shows scattered seborrheic keratoses. On her vertex scalp, there is an 8-mm scaly, pink patch, which appeared to be an irritated seborrheic keratosis, but we decided to remove it for pathology review. PROCEDURE: Informed consent was signed. 1% lidocaine with epinephrine used for anesthesia. The lesion on the scalp was shaved. Drysol and hyfrecator used for hemostasis. Vaseline and Band-Aid applied. Then on her nose, there is a biopsy site with a slight dent in the skin from February of 2010. The biopsy report was viewed and showed no cancer, but possibly an adnexal tumor, and I told her to continue to watch this and if it seems like it is growing, we should look at it again, and we took a picture of it today. HEAD: As above. EYES: Eyes and eyelids normal. THYROID: No thyromegaly. PERIPHERAL VESSELS: Peripheral vascular system intact. IMPRESSION / REPORT / PLAN 1) Full skin examination. 2) History of dysplastic nevi, none noted today. 3) Benign nevi and freckles and seborrheic keratoses today. 4) Irritated lesion on vertex scalp, biopsied. 5) Lesion on nose that had been biopsied before with a little irregularity noted today. She will continue to watch and if it changes, she will call for an appointment and get in [facility] to be looked at again. Thiago Murphy M.D. cla Electronically Signed By: THIAGO MURPHY MD On: 02/09/2011 03:49 PM Source: [facility] MHSDOLBEYNONRADSYS Document Id: [id number] SEARCH EVALUATOR documented in this encounter Miscellaneous Notes Miscellaneous - Dawn Carnes L.P.N. - 02/01/2011 10:48 AM CST Adult Mold Injector Intake/History Adult Mold Injector Intake/History Entered On: 02/01/2011 10:50 WEB SEARCH EVALUATOR Performed On: 02/01/2011 10:48 WEB SEARCH EVALUATOR by DAWN CARNES Intake Chief Complaint : FSE Temperature Oral : 36.6C(Converted to: 97.9DegF) Systolic Blood Pressure : 136mmHg Diastolic Blood Pressure : 82mmHg NIBP Mean : 100mmHg BP Location : Right upper extremity Actual Weight : 57.7kg(Converted to: 127lb 3oz) Dosing Weight Clinic : 57.70kg DAWN CARNES - 02/01/2011 10:48 WEB SEARCH EVALUATOR Subjective Pain Symptoms : No DAWN CARNES - 02/01/2011 10:48 WEB SEARCH EVALUATOR Dependent Habits Tobacco Use/Currently Using : No Smoking Status : Never smoker DAWN CARNES - 02/01/2011 10:48 WEB SEARCH EVALUATOR Allergy Allergies (Active) NKA Estimated Onset Date: Unspecified ; Created By: DAWN CARNES; Reaction Status: Active ; Category: Drug ; Substance: NKA ; Type: Allergy ; Updated By: DAWN CARNES; Reviewed Date: 12/08/20109:05 CDT Source: [employer] Document Id: [id number] WEB SEARCH EVALUATOR!15 SEARCH EVALUATOR documented in this encounter Plan of Treatment Upcoming Encounters Date Type Specialty Care Team Description 11/19/2021 Clinical Communication Admitting/Central Scheduling 11/23/2021 Comprehensive Visit Neurology Kenji Zaldivar M.D. [address] [place] [phone] documented as of this encounter Procedures Procedure Name Priority Date/Time Associated Diagnosis Comme nts SURGICAL PATHOLOGY Routine 02/01/2011 12:00 AM Re sults for this WEB SEARCH EVALUATOR procedure are i n the results section. documented in this encounter Results Pathology Surgical Pathology (02/01/2011 12:00 AM WEB SEARCH EVALUATOR) Specimen (Source) Anatomical Location Collection Method / Collectio n Time Received Time / Laterality Volume 02/01/2011 Narrative [facility] - 02/08/20 11 1:49 PM WEB SEARCH EVALUATOR PATIENT IMAGES Choose the Image button to view related documents. Historical Provider LAB SURG PATH ORDERABLES Performing Organization Address City/State/ZIP Code Phon e Number [facility] documented in this encounter Visit Diagnoses Not on filedocumented in this encounter
--- OUTSIDE RECORDS SUMMARY | 2021-11-03 07:11 | XMS_ITS | Encounter Summary ---
:1940 Author Organization [facility] Address [address] [place] [address] Care Team Providers Name Role Phone Unavailable Primary Care Provider Unavailable Encounter Details Date Type Department Care Team Description 03/06/2012 Hospital Encounter [facility]X [facility] DERM Wilda Murphy M.D. [address] [facility], [facility] [address] [phone] (Wo rk) Social History Tobacco Use [...] Sign Reading Time Taken Comments Blood Pressure 118/74 03/06/2012 3:45 PM HOT DIP PLATING SUPERVISOR Pulse - - Temperature - - Respiratory [...] encounter Progress Notes Thiago Murphy M.D. - 03/06/2012 3:10 PM CST [id number] Document Contains Addenda This 72-year-old female is here for recheck of actinic keratoses on her nose which we had noted at her last appointment in December and treated with liquid nitrogen. At that time it was thought she might need fluorouracil cream and so she is back for recheck. PHYSICAL EXAMINATION Exam of face still shows scattered AKs on her face but mainly on her nose where there is a slight scar from previous biopsy. IMPRESSION/REPORT/PLAN Actinic keratoses PLAN: She will start fluorouracil 5% cream once a day for 4 weeks on her nose. I also gave her alclometasone cream for symptom relief. Usual instructions and consultation was given. She is going to wait until she gets home from her cruise to [place] in April and I told her that was fine. She will follow up again in July for a recheck. ADDENDUM: Patient also states she sometimes notes that her neck is very itchy. On exam the skin of the neck is quite dry. We talked about moisturizing. Thiago Murphy M.D./[facility] Electronically Signed By: THIAGO MURPHY MD On: 03/11/2012 09:56 PM Source: [facility] MHSDOLBEYNONRADSYS Document Id: [id number] DIP PLATING SUPERVISOR documented in this encounter Miscellaneous Notes Miscellaneous - Mayra Robertson C.MMaia - 04/26/2012 4:28 PM CST General Message--Derm From: MAYRA ROBERTSON ( Dermatology Nurse) Sent: 04/26/2012 16:28:44 HOT DIP PLATING SUPERVISOR Subject: General Message--Derm Patient called asking a few questions about using make up while she is doing her Efudex treatment. Advised it ok to use. Pt to call if any other questions. Source: [facility] POWERCHART Document Id: [id number] Miscellaneous - Clinton Crespo CChicoMChicoAChico - 03/06/2012 3:45 PM CST Adult Passenger Representative Intake/History Adult Passenger Representative Intake/History Entered On: 03/06/2012 15:46 HOT DIP PLATING SUPERVISOR Performed On: 03/06/2012 15:45 HOT DIP PLATING SUPERVISOR by CLINTON CRESPO Intake Chief Complaint : f/u ak's gace Systolic Blood Pressure : 118mmHg Diastolic Blood Pressure : 74mmHg NIBP Mean : 89mmHg BP Location : Right upper extremity Blood Pressure Cuff Size : Regular CLINTON CRESPO - 03/06/2012 15:45 HOT DIP PLATING SUPERVISOR Subjective Pain Symptoms : No CLINTON CRESPO - 03/06/2012 15:45 HOT DIP PLATING SUPERVISOR Dependent Habits Tobacco Use/Currently Using : No Smoking Status : Never smoker CLINTON CRESPO - 03/06/2012 15:45 HOT DIP PLATING SUPERVISOR Allergy Allergies (Active) NKA Estimated Onset Date: Unspecified ; Created By: DAWN CARNES; Reaction Status: Active ; Category: Drug ; Substance: NKA ; Type: Allergy ; Updated By: DAWN CARNES; Reviewed Date: 03/06/201215:43 HOT DIP PLATING SUPERVISOR Source: [facility] POWERCHART Document Id: [id number] DIP PLATING SUPERVISOR documented in this encounter Plan of Treatment Upcoming Encounters Date Type Specialty Care Team Description 11/19/2021 Clinical Communication Admitting/Central Scheduling 11/23/2021 Comprehensive Visit Neurology Kenji Zaldivar M.D. [address] [place] [phone] documented as of this encounter Visit Diagnoses Not on filedocumented in this encounter
--- OUTSIDE RECORDS SUMMARY | 2021-11-03 07:11 | XMS_ITS | Encounter Summary ---
:1940 Author Organization [facility] Address [address] [place] [address] Care Team Providers Name Role Phone Unavailable Primary Care Provider Unavailable Encounter Details Date Type Department Care Team Description 08/21/2007 Hospital Encounter [facility]X [facility] INTERNMED Georgia Moy M.D. [address] [place] [address] (Wo rk) Social History Tobacco Use Types [...] 11/23/2021 Comprehensive Visit Neurology Kenji Zaldivar M.D. [address] [place] [phone] documented as of this encounter Visit Diagnoses Not on filedocumented in this encounter
--- OUTSIDE RECORDS SUMMARY | 2021-11-03 07:11 | XMS_ITS | Encounter Summary ---
:1940 Author Organization [facility] Address [address] [place] [address] Care Team Providers Name Role Phone Unavailable Primary Care Provider Unavailable Encounter Details Date Type Department Care Team Description 12/28/2011 Hospital Encounter [facility]X [facility] Jeb Berry M.D. [address] [place], [place] [phone] (Wo rk) Social [...] documented as of this encounter Progress Notes Manuela Lopez, C.O.T. - 12/28/2011 9:40 AM CDT Eye Services Clinic Exam Eye Services Clinic Exam Entered On: 12/28/2011 9:54 CDT Performed On: 12/28/2011 9:40 CDT by MANUELA LOPEZ Chief Complaint and History Chief Complaint : Routine exam Pain Symptoms : No Smoking Status : Never smoker MANUELA LOPEZ - 12/28/2011 9:40 CDT Optometry Exam Familty History Grid Thyroid : Self Cataract : Self Hypertension : Self MANUELA LOPEZ - 12/28/2011 9:40 CDT Vision Testing Right Eye Vision Testing : With glasses - primary, 20/30 Left Eye Vision Testing : With glasses - primary, 20/30 Near Vision Both Eyes : With glasses - primary, J-1 MANUELA LOPEZ - 12/28/2011 9:40 CDT Refraction Right Eye Manifest Grid Date : 12/08/2010 CDT 12/28/2011 CDT Performed by : Niki Sphere : +1.75 +1.50 CYL : +1.00 +1.00 [place] : [phone] Visual Acuity Distance : 20/20, -1 20/25, -2 ADD : +2.50 Visual Acuity Near : J-1+ MANUELA LOPEZ - 12/28/2011 9:40 CDT MANUELA LOPEZ - 12/28/2011 9:40 CDT Left Eye Manifest Grid Date : 12/28/2011 CDT Performed by : Niki Sphere : +4.00 +4.00 CYL : +0.75 +0.75 [place] : 33 30 Visual Acuity Distance : 20/20, -1 20/25 ADD : +2.50 Visual Acuity Near : J-1+ MANUELA LOPEZ - 12/28/2011 9:40 CDT MANUELA LOPEZ - 12/28/2011 9:40 CDT Ocular Testing EOMS : Normal Comment : 4-3 4-3 Pupils : PERRLA Confrontation [place] : RE Normal, LE Normal MANUELA LOPEZ - 12/28/2011 9:40 CDT Intraoccular Pressures Intraoccular Pressures Grid Date : 12/08/2010 CDT 12/08/2010 CDT 12/28/2011 CDT 12/28/2011 CDT Eye : RE LE RE LE Applanation : 14 13 15 13 Eye Drops : Fluress Strip Fluress Strip Comments : 9:36 MANUELA LOPEZ - 12/28/2011 9:40 CDT MANUELA LOPEZ - 12/28/2011 9:40 CDT MANUELA LOPEZ - 12/28/2011 9:40 CDT MANUELA LOPEZ - 12/28/2011 9:40 CDT Eye Drops Exam Date of Last Eye Exam : 12/28/2011 CDT Phenylephrine 2.5% Eye Drops Eye : Both eyes Phenylephrine 2.5% Eye Drops Time : 9:54 INSURANCE ATTORNEY Tropicamide 1% Eye Drops Eye : Both eyes Tropicamide 1% Eye Drops Time : 9:54 INSURANCE ATTORNEY MANUELA LOPEZ - 12/28/2011 9:40 CDT Source: [facility] POWERCHART Document Id: [id number] Delmar Luu M.D. - 12/28/2011 12:00 AM CDT [id number] CHIEF COMPLAINT / REASON FOR VISIT Routine exam IMPRESSION / REPORT / PLAN 1) Enlarging cataracts vision stable 2) Choroidal nevus left eye unchanged PLAN: Optional change in glasses. Follow up in 1 year. Delmar Luu M.D. bft Electronically Signed By: DELMAR LUU MD On: 12/30/2011 07:53 AM Source: [facility] MHSDOLBEYNONRADSYS Document Id: [id number] documented in this encounter Miscellaneous Notes Miscellaneous - Delmar Luu M.D. - 12/28/2011 10:17 AM CDT Ambulatory Patient Summary [facility] [address] [place] [phone] Visit Information Name: AZEB العراقي Current Date: 12/28/2011 10:17:05 Physicians Attending Provider: DELMAR LUU MD Primary Care Provider: ELLIE MARCH MD Your Medications Here is a list of your medications. It is important to take your medications as directed. Use a pillbox or chart to help remind you to take your medications. Please let your doctor or nurse know if you have problems taking your medications. Medication/Strength Dose Route Frequency Indications/Special Instructions/Comments hydrochlorothiazide (hydrochlorothiazide) Oral once a day ocular lubricant (Artificial Tears) calcium citrate (Citracal) cholecalciferol (Vitamin D3 1000 intl units oral tablet) levothyroxine (Synthroid) Misc Prescription (Misc Prescription) Attention: If you have any medications at [...] 08/29/2007 Skin Lesion, Uncertain Beh Active 02/01/2011 Your Upcoming Appointments Date Time Location Reason Provider 12/28/2011 10:45 [facility]OC Derm GROWTH ON NOSE -SEEMS TO BE GROWING PER PT Your Goals/Additional instructions: Source: [facility] POWERCHART Document Id: [id number] Miscellaneous - Delmar Luu M.D. - 12/28/2011 10:17 AM CDT Ambulatory Depart Summary [facility] [address], [place] [address] Visit Information Name: AZEB العراقي Visit Date: 12/28/2011 10:17:04 Attending Provider: DELMAR LUU MD Primary Care Provider: ELLIE MARCH MD LEONARD العراقيLIRavinder GILLIAM has been given the following list of medications: Your Medications It is important to take your medications as directed. Use a pill box or chart to help remind you to take your medications. Please let your doctor or nurse know if you have problems taking your medications. Medication/Strength Dose Route Frequency Indications/Special Instructions/Comments hydrochlorothiazide (hydrochlorothiazide) Oral once a day ocular lubricant (Artificial Tears) calcium citrate (Citracal) cholecalciferol (Vitamin D3 1000 intl units oral tablet) levothyroxine (Synthroid) Misc Prescription (Misc Prescription) Attention: If you have any medications at home that are not on this list, DO NOT take them until youcontact your provider for clarification. Additional Information: Source: [facility] POWERCHART Document Id: [id number] documented in this encounter Plan of Treatment Upcoming Encounters Date Type Specialty Care Team Description 11/19/2021 Clinical Communication Admitting/Central Scheduling 11/23/2021 Comprehensive Visit Neurology Kenji Zaldivar M.D. [address] [place] [phone] documented as of this encounter Visit Diagnoses Not on filedocumented in this encounter
--- OUTSIDE RECORDS SUMMARY | 2021-11-03 07:11 | XMS_ITS | Encounter Summary ---
:1940 Author Organization [facility] Address [address] [place] [address] Care Team Providers Name Role Phone Unavailable Primary Care Provider Unavailable Encounter Details Date Type Department Care Team Description 03/18/2014 Hospital Encounter [facility]X [facility] D[facility]M Wilda Murphy M.D. 1835 [facility], [facility] [address] [address] 113 (Wo rk) Social History Tobacco Use [...] documented as of this encounter Progress Notes Jazz Murphy M.D. - 03/18/2014 1:51 PM CST [id number] CHIEF COMPLAINT/REASON FOR VISIT Full skin exam to rule out skin cancer.. HISTORY OF PRESENT ILLNESS This 74-year-old female is here for a full skin exam to rule out skin cancer. She has a history of dysplastic nevi, actinic keratosis, and Schamberg's diseases and wants to have all of these rechecked.She also has a new brown spot in the right axilla which has come up over the last few months. It is a little itchy. She has thick toenails on the left great toenail and the left second toe, and has been bothering herand she wonders what she should do about that. She has hair growth on her chin. She has been plucking these, but they are leaving red bumps and a little bit of scarring and she wonders what she should do about that. MEDICATIONS Hydrochlorothiazide. Alendronate-cholecalciferol. Vitamins. Synthroid. ALLERGIES None. SYSTEMS REVIEW Negative.. PAST MEDICAL/SURGICAL HISTORY High blood pressure. Arthritis. Thyroid disease. SOCIAL HISTORY OCCUPATION: She is retired. HOBBIES AND LEISURE ACTIVITIES: Enjoys friends and family. SMOKING: Does not smoke. ALCOHOL: Drinks alcohol occasionally. FAMILY HISTORY Skin cancer. PHYSICAL EXAMINATION GENERAL: Alert and oriented x3 in no acute distress. Pleasant demeanor. Well groomed. Near ideal weight. SKIN: Skin of face, neck, back, chest, abdomen, arms, legs, hands, feet, and buttocks shows multipleseborrheic keratoses. New lesion in the right axilla that she was concerned about is a seborrheic keratosis. She does have thick, yellow subungual hyperkeratosis in the left great toenail and second toenail rest appear okay There is currently no fungus on the toe webs or plantar surface of the feet. She does have some terminal hairs on the chin and pink papules in areas, but she has plucked the hair.There are scattered benign-appearing nevi, some of which were examined under dermoscopy. None were removed today. DIGITS: Fingers, toes, and nails are within normal limits on visualization and palpation. HEAD: Lips and teeth within normal limits. Hair of scalp and face within normal limits. EYES: Eyes and eyelids normal. THYROID: No thyromegaly. PERIPHERAL VESSELS: Peripheral vascular system intact. IMPRESSION/REPORT/PLAN 1. Full skin examination to rule out skin cancer. 2. History of dysplastic nevi and actinic keratoses. 3. Multiple nevi. The ABCDE criteria for moles and melanoma were reviewed with the patient. None of the patients nevi reached the clinical threshold for biopsy. I recommend continued sun protection, self-skin examinations, and observation. Should any of the patients nevi change in size, color, texture, shape, or develop symptoms such as itching or bleeding, I recommend a return visit for reassessmentas these can be signs of skin cancer. 4. Seborrheic keratoses: The benign nature of this skin lesion was discussed with the patient. No treatment is required. I recommend continued observation and if any concerning changes occur, the patient should return for reevaluation. 5. Onychomycosis. She would like to try Jublia and a prescription was sent. 6. Unwanted facial hair. We talked about shaving, depilatory or snipping rather than plucking. I offered her to have it done, but she declined and she will follow up as needed. Jazz Murphy M.D./destini Electronically Signed By: JAZZ MURPHY MD On: 04/04/2014 11:20 AM Modified by and Electronically Signed by: JAZZ MURPHY MD On: 03/26/2014 10:30 AM Source: [facility] MHSDOLBEYNONRADSYS Document Id: [id number] ING SURGICAL SERVICES DIRECTOR documented in this encounter Miscellaneous Notes Miscellaneous - Jazz Murphy M.D. - 03/19/2014 1:09 PM CST Ambulatory Patient Summary [facility] [address] [place], [place] [phone] Visit Information Name: AZEB العراقي [facility] Number: [id number] Current Date: 03/19/2014 13:09:37 Physicians Attending Provider: JAZZ MURPHY MD Primary Care Provider: PCP, UNASSIGNED - ARYA KEVINAZEB TAWANA has been given the following list [...] (Vitamin D3 1000 intl units oral tablet) efinaconazole topical (Jublia 10% topical solution) 1 cher, Topical, once a day New Routed to [facility] [address] [place] [address] hydrochlorothiazide (hydrochlorothiazide) Oral, once a day levothyroxine (Synthroid) ocular lubricant (Artificial Tears) Stop Taking the Following Medications: Medication list as of 03-19-14 13:09 Attention: If you have any medications at home that are not on this list, DO NOT take them until youcontact your provider for clarification. Give a copy of your medication list to your primary care provider. Update your medication list any time medications or doses are changed and carry your medication list at all times in case of emergency. Electronically Signed By: JAZZ MURPHY MD Signed On:19-MAR-2014 13:09:32 Your Allergies & Intolerances Substance Reaction Symptoms [...] appointment detail needed. Your Goals/Additional instructions: Source: [facility] POWERCHART Document Id: [id number] ING SURGICAL SERVICES DIRECTOR Miscellaneous - Jazz Murphy M.D. - 03/19/2014 1:09 PM CST Ambulatory Discharge Medication List [facility] [address] [place] [id number] Visit Information Name: LEONARD العراقيLIRavinder GILLIAM [facility] Number: [id number] Visit Date: 03/19/2014 13:09:36 Attending Provider: JAZZ MURPHY MD Primary Care Provider: PCP, UNASSIGNED - OW KEVINAZEB TAWANA has been given the following list [...] (Vitamin D3 1000 intl units oral tablet) efinaconazole topical (Jublia 10% topical solution) 1 cher, Topical, once a day New Routed to [facility] [address] [place] [address] hydrochlorothiazide (hydrochlorothiazide) Oral, once a day levothyroxine (Synthroid) ocular lubricant (Artificial Tears) Stop Taking the Following Medications: Medication list as of 03-19-14 13:09 Attention: If you have any medications at home that are not on this list, DO NOT take them until youcontact your provider for clarification. Give a copy of your medication list to your primary care provider. Update your medication list any time medications or doses are changed and carry your medication list at all times in case of emergency. Electronically Signed By: JAZZ MURPHY MD Signed On:19-MAR-2014 13:09:32 Additional Information: Source: [facility] [employer] Document Id: [id number] ING SURGICAL SERVICES DIRECTOR Miscellaneous - Shayy Mahmood, L.P.N. - 03/18/2014 2:38 PM CST Adult Maid Supervisor Intake/History Adult Maid Supervisor Intake/History Entered On: 03/18/2014 14:39 NURSING SURGICAL SERVICES DIRECTOR Performed On: 03/18/2014 14:38 NURSING SURGICAL SERVICES DIRECTOR by SHAYY MAHMOOD Intake Chief Complaint : full skin exam history of DN,AK,schamberg's disease SHAYY MAHMOOD - 03/18/2014 14:38 NURSING SURGICAL SERVICES DIRECTOR General Info Information Given By : Patient Languages : Mongolian Is Patient Female and 13-50 no hysterectomy : No SHAYY MAHMOOD - 03/18/2014 14:38 NURSING SURGICAL SERVICES DIRECTOR Subjective Pain Symptoms : No SHAYY MAHMOOD - 03/18/2014 14:38 NURSING SURGICAL SERVICES DIRECTOR Dependent Habits Tobacco Use/Currently Using : No Smoking Status : Never smoker SHAYY MAHMOOD - 03/18/2014 14:38 NURSING SURGICAL SERVICES DIRECTOR Tobacco Use Grid Last Use : never SHAYY MAHMOOD - 03/18/2014 14:38 NURSING SURGICAL SERVICES DIRECTOR ID Screen Travel Within Last 21 Days : SHAYY Julien 03/18/2014 14:38 NURSING SURGICAL SERVICES DIRECTOR Source: [facility] [employer] Document Id: [id number] NURSING SURGICAL SERVICES DIRECTOR!17 ING SURGICAL SERVICES DIRECTOR documented in this encounter Plan of Treatment Upcoming Encounters Date Type Specialty Care Team Description 11/19/2021 Clinical Communication Admitting/Central Scheduling 11/23/2021 Comprehensive Visit Neurology Kenji Zaldivar M.D. [address] [place] [address] documented as of this encounter Visit Diagnoses Not on filedocumented in this encounter
--- OUTSIDE RECORDS SUMMARY | 2021-11-03 07:11 | XMS_ITS | Encounter Summary ---
:1940 Author Organization [facility] Address [address] [place] [address] Care Team Providers Name Role Phone Unavailable Primary Care Provider Unavailable Encounter Details Date Type Department Care Team Description 12/26/2007 Hospital Encounter HX NO MAPPING Provider, Historical Social History Tobacco Use Types Packs/Day Years [...] Visit Neurology Kenji Zaldivar M.D. [address] [place] [address] documented as of this encounter Visit Diagnoses Not on filedocumented in this encounter
--- OUTSIDE RECORDS SUMMARY | 2021-11-03 07:11 | XMS_ITS | Encounter Summary ---
:1940 Author Organization [facility] Address [address] [place] [address] Care Team Providers Name Role Phone Unavailable Primary Care Provider Unavailable Encounter Details Date Type Department Care Team Description 12/28/2011 Hospital Encounter HX [facility] DERM Wilda Murphy M.D. 1835 [facility], [facility] [address] [address] 113 (Wo rk) Social History Tobacco Use [...] Sign Reading Time Taken Comments Blood Pressure 116/74 12/28/2011 10:40 AM CDT Pulse - - Temperature - - Respiratory Rate - - Oxygen Saturation - - Inhaled Oxygen Concentration - - Weight 57.4 kg (126 lb 8.7 oz) 12/28/2011 10:40 AM CDT Height - - Body Mass Index - [...] encounter Progress Notes Thiago Murphy M.D. - 12/28/2011 12:00 AM CDT [id number] CHIEF COMPLAINT/REASON FOR VISIT This 71-year-old female is here for a full skin exam. She is concerned today about a growth on her nose and a cyst in the pubic area that has been there for a really long time but now is getting larger and more painful. She wonders if it can be removed. CURRENT MEDICATIONS Reviewed per EMR ALLERGIES Reviewed per EMR SYSTEMS REVIEW Negative for current problems with head and face, eyes, ears, mouth, throat, nose and sinuses, respiratory tract, cardiovascular system, gastrointestinal system, genitourinary system, musculoskeletal system, psychological system, endocrine system, hematopoietic system, nervous system. PAST MEDICAL/SURGICAL HISTORY Per EMR SOCIAL HISTORY OCCUPATION: She is retired. HOBBIES AND LEISURE ACTIVITIES: Enjoys friends and family. SMOKING: Does not smoke. ALCOHOL: Does not drink alcohol. FAMILY HISTORY Negative for psoriasis, eczema, acne, skin cancer, hayfever, and asthma. PHYSICAL EXAM BP: 116/74 WEIGHT: 57.4 k TEMP: 36.8 C GENERAL: Alert and oriented x3 in no acute distress. Pleasant demeanor. Well groomed. Near ideal weight. SKIN: Skin of face, neck, back, chest, abdomen, arms, legs, hands, feet, and buttocks shows mild photodamage on sun-exposed areas. On her nose, she has 4 scaly pink patches, all of which appear to be actinic keratoses, and these 4 were treated with Liquid Nitrogen. Then, in the pubic area, she has a 4-mm epidermal inclusion cyst with a central keratin plug. PROCEDURE: Informed consent was obtained. 1% lidocaine with epi used for anesthesia. The lesion was incised and then expressed using a comedone extractor. Patient tolerated this well. DIGITS: Fingers, toes, and nails are within normal limits. HEAD: Lips and teeth within normal limits. Hair of scalp and face within normal limits. EYES: Eyes and eyelids normal. THYROID: No thyromegaly. PERIPHERAL VESSELS: Peripheral vascular system intact. IMPRESSION/REPORT/PLAN 1) Full skin examination to screen for skin cancer. 2) Four actinic keratoses on nose, treated with Liquid Nitrogen. She is going to follow up again in 6 months and perhaps at that time will use Efudex on her face. 3) Epidermal inclusion cyst in pubic area removed. Care instructions were given. She will follow up again as above. Patient did not desire a depart summary. Thiago Murphy M.D. sushila Electronically Signed By: THIAGO MURPHY MD On: 01/04/2012 12:34 PM Source: [facility] MHSDOLBEYNONRADSYS Document Id: [id number] documented in this encounter Miscellaneous Notes Miscellaneous - Thiago Murphy M.D. - 12/28/2011 6:44 PM CDT Ambulatory Patient Summary [address] [address] Visit Information Name: AZEB العراقي Current Date: 12/28/2011 18:44:06 Physicians Attending Provider: THIAGO MURPHY MD Primary Care Provider: ELLIE MARCH MD [...] Upcoming Appointments Date Time Location Reason Provider 03/06/2012 15:30 OWOC Derm rck AKS face Your Goals/Additional instructions: Source: [facility] POWERCHART Document Id: [id number] Miscellaneous - Thiago Murphy M.D. - 12/28/2011 6:44 PM CDT Ambulatory Depart Summary [address] [address] Visit Information Name: AZEB العراقي Visit Date: 12/28/2011 18:44:05 Attending Provider: THIAGO MURPHY MD Primary Care Provider: ELLIE MARCH MD AZEB العراقي has been given the following [...] your provider for clarification. Additional Information: [facility] Document Id: [id number] Miscellaneous - Conversion, Historical Provider Ser - 12/28/2011 10:40 AM CDT Adult Site Supervisor Intake/History Adult Site Supervisor Intake/History Entered On: 12/28/2011 10:44 CDT Performed On: 12/28/2011 10:40 CDT by NICOLE CASTRO Intake Chief Complaint : patch on nose getting worse, also pubic area- hair follicle question Temperature Oral : 36.8C(Converted to: 98.2DegF) Heart Rhythm : Regular Systolic Blood Pressure : 116mmHg Diastolic Blood Pressure : 74mmHg NIBP Mean : 88mmHg BP Location : Right upper extremity Blood Pressure Cuff Size : Regular Oxygen Therapy : Room air Actual Weight : 57.4kg(Converted to: 126lb 9oz) Dosing Weight Clinic : 57.40kg NICOLE CASTRO - 12/28/2011 10:40 CDT Subjective Pain Symptoms : No NICOLE CASTRO - 12/28/2011 10:40 CDT Dependent Habits Tobacco Use/Currently Using : No Smoking Status : Never smoker NICOLE CASTRO - 12/28/2011 10:40 CDT Allergy Allergies (Active) NKA Estimated Onset Date: Unspecified ; Created By: DAWN CARNES; Reaction Status: Active ; Category: Drug ; Substance: NKA ; Type: Allergy ; Updated By: DAWN CARNES; Reviewed Date: 12/28/201110:38 CDT Source: [facility] POWERCHART Document Id: [id number] documented in this encounter Plan of Treatment Upcoming Encounters Date Type Specialty Care Team Description 11/19/2021 Clinical Communication Admitting/Central Scheduling 11/23/2021 Comprehensive Visit Neurology Kenji Zaldivar M.D. [address] [place] [address] documented as of this encounter Visit Diagnoses Not on filedocumented in this encounter
--- OUTSIDE RECORDS SUMMARY | 2021-11-03 07:11 | XMS_ITS | Encounter Summary ---
:1940 Author Organization [facility] Address [address] [place] [address] Care Team Providers Name Role Phone Unavailable Primary Care Provider Unavailable Encounter Details Date Type Department Care Team Description 01/17/2014 Historical Ophthalmology [facility] Delmar Mulligan M.D. [address] [place], [place] [phone] (Wo rk) Social History [...] encounter Progress Notes Delmar Mulligan M.D. - 01/17/2014 1:19 PM CDT Eye General CHIEF COMPLAINT CE HISTORY OF PRESENT ILLNESS No changes in vision per pt. Redness inner corner of the right eye for several days- starting to getbetter IMPRESSION / REPORT / PLAN #1 Cataracts, nuclear both eyes. #2 Choroidal nevus, left eye. Stable, Plan: Update glasses. U/v protection. F/u one year. DIAGNOSIS #1 Cataracts, nuclear both eyes. #2 Choroidal nevus, left eye. CDM Reports - EYEGEN Id: [id number] Status: Fnl documented in this encounter Plan of Treatment Upcoming Encounters Date Type Specialty Care Team Description 11/19/2021 Clinical Communication Admitting/Central Scheduling 11/23/2021 Comprehensive Visit Neurology Kenji Zaldivar M.D. [address] [place] [address] documented as of this encounter Visit Diagnoses Not on filedocumented in this encounter
--- OUTSIDE RECORDS SUMMARY | 2021-11-03 07:11 | XMS_ITS | Encounter Summary ---
:1940 Author Organization [facility] Address [address] [place] [address] Care Team Providers Name Role Phone Unavailable Primary Care Provider Unavailable Encounter Details Date Type Department Care Team Description 01/19/2015 Hospital Encounter HX [facility] Jeb Berry M.D. [address] [place], [place] [phone] (Wo rk) Social History [...] encounter Progress Notes Delmar Luu M.D. - 01/19/2015 12:45 PM CDT [id number] The documentation for this visit is available in [employer] IMPRESSION/REPORT/PLAN #1 Cataracts, nuclear both eyes. #2 Choroidal nevus, left eye. Stable, Plan: Update glasses. U/v protection. F/u one year. CE/ref Delmar Luu M.D./se Electronically Signed By: DELMAR LUU MD On: 01/22/2015 07:56 AM Source: [facility] MHSDOLBEYNONRADSYS Document Id: [id number] documented in this encounter Miscellaneous Notes Miscellaneous - Delmar Luu M.D. - 01/19/2015 1:42 PM CDT Ambulatory Patient Summary [facility] [address] [place], [place] [phone] Visit Information Name: KEVIN AZEB TAWANA [facility] Number: [id number] Current Date: 01/19/2015 13:42:48 Physicians Attending Provider: DELMAR LUU MD Primary [...] (Vitamin D3 1000 intl units oral tablet) *efinaconazole topical (Jublia 10% topical solution) 1 cher, Topical, once a day hydrochlorothiazide (hydrochlorothiazide) Oral, once a day levothyroxine (Synthroid) ocular lubricant (Artificial Tears) * You have let us know that you are not taking this medication as listed. Please talk with your primary care provider or the health care provider who prescribed the medication as soon as possible. Stop Taking the Following Medications: Medication list as of 01-19-15 13:42 Attention: If you have any medications at [...] Electronically Signed By: DELMAR LUU MD Signed On:19-JAN-2015 13:42:26 Your Allergies & Intolerances Substance Reaction Symptoms [...] if you dont have one. Go to [email or web address] and click on Create Your Account. Then, follow the directions to complete the online form. Youll be asked for your [facility] number which you can find at the top of this document. Your Goals/Additional instructions: Source: [facility] POWERCHART Document Id: [id number] Miscellaneous - Delmar Luu M.D. - 01/19/2015 1:42 PM CDT Ambulatory Discharge Medication List [facility] [address] [place] [phone] Visit Information Name: AZEB العراقي [facility] Number: [id number] Visit Date: 01/19/2015 13:42:47 Attending Provider: DELMAR LUU MD Primary Care [...] (Vitamin D3 1000 intl units oral tablet) *efinaconazole topical (Jublia 10% topical solution) 1 cher, Topical, once a day hydrochlorothiazide (hydrochlorothiazide) Oral, once a day levothyroxine (Synthroid) ocular lubricant (Artificial Tears) * You have let us know that you are not taking this medication as listed. Please talk with your primary care provider or the health care provider who prescribed the medication as soon as possible. Stop Taking the Following Medications: Medication list as of 01-19-15 13:42 Attention: If you have any medications at [...] Electronically Signed By: DELMAR LUU MD Signed On:19-JAN-2015 13:42:26 Additional Information: Source: [facility] POWERCHART Document Id: [id number] documented in this encounter Plan of Treatment Upcoming Encounters Date Type Specialty Care Team Description 11/19/2021 Clinical Communication Admitting/Central Scheduling 11/23/2021 Comprehensive Visit Neurology Kenji Zaldivar M.D. [address] [place] [address] documented as of this encounter Visit Diagnoses Not on filedocumented in this encounter
--- OUTSIDE RECORDS SUMMARY | 2021-11-03 07:11 | XMS_ITS | Encounter Summary ---
:1940 Author Organization [facility] Address [address] [place] [address] Care Team Providers Name Role Phone Unavailable Primary Care Provider Unavailable Encounter Details Date Type Department Care Team Description 05/25/2005 Hospital Encounter HX [facility] INTERNMED Mikala Pemberton M.D. [address] [place], [place] [address] (Wo rk) Social History Tobacco Use [...] Comprehensive Visit Neurology Kenji Zaldivar M.D. [address] [place] [phone] documented as of this encounter Visit Diagnoses Not on filedocumented in this encounter
--- OUTSIDE RECORDS SUMMARY | 2021-11-03 07:11 | XMS_ITS | Encounter Summary ---
:1940 Author Organization [facility] Address [address] [place] [address] Care Team Providers Name Role Phone Unavailable Primary Care Provider Unavailable Encounter Details Date Type Department Care Team Description 12/14/2005 Hospital Encounter HX [facility] INTERNMED Mikala Pemberton M.D. [address] [place], [place] [phone] (Wo rk) Social History Tobacco Use [...] Admitting/Central Scheduling 11/23/2021 Comprehensive Visit Neurology Kenji Zalidvar M.D. [address] [place] [phone] documented as of this encounter Visit Diagnoses Not on filedocumented in this encounter
--- OUTSIDE RECORDS SUMMARY | 2021-11-03 07:11 | XMS_ITS | Encounter Summary ---
:1940 Author Organization [facility] Address [address] [place] [address] Care Team Providers Name Role Phone Unavailable Primary Care Provider Unavailable Encounter Details Date Type Department Care Team Description 07/13/2006 Hospital Encounter HX [facility] SURGERY Mireya Stanton M.D. [address] [place] [address] (Wo rk) Social History Tobacco Use Types [...] Comprehensive Visit Neurology Kenji Zaldivar M.D. [address] [place] [phone] documented as of this encounter Visit Diagnoses Not on filedocumented in this encounter
--- OUTSIDE RECORDS SUMMARY | 2021-11-03 07:11 | XMS_ITS | Encounter Summary ---
:1940 Author Organization [facility] Address [address] [place] [address] Care Team Providers Name Role Phone Unavailable Primary Care Provider Unavailable Encounter Details Date Type Department Care Team Description 08/29/2007 Hospital Encounter HX [facility] DERM Wilda Murphy M.D. 1835 [facility] [address] [phone] (Wo rk) Social History Tobacco Use [...] 11/23/2021 Comprehensive Visit Neurology Kenji Zaldivar M.D. [address] [place] [phone] documented as of this encounter Visit Diagnoses Not on filedocumented in this encounter
--- OUTSIDE RECORDS SUMMARY | 2021-11-03 07:11 | XMS_ITS | Encounter Summary ---
:1940 Author Organization [facility] Address [address] [place] [address] Care Team Providers Name Role Phone Unavailable Primary Care Provider Unavailable Encounter Details Date Type Department Care Team Description 08/21/2007 Hospital Encounter HX NO MAPPING Zhao Linn M.D. Social History Tobacco Use Types Packs/Day Years [...] Visit Neurology Kenji Zaldivar M.D. [address] [place] [address] documented as of this encounter Visit Diagnoses Not on filedocumented in this encounter
--- OUTSIDE RECORDS SUMMARY | 2021-11-03 07:11 | XMS_ITS | Encounter Summary ---
:1940 Author Organization [facility] Address [address] [place] [address] Care Team Providers Name Role Phone Unavailable Primary Care Provider Unavailable Encounter Details Date Type Department Care Team Description 01/10/2008 Hospital Encounter HX [facility] OWOC Maxwell Virgen M.D. [address] [place], [place] [phone] (Wo rk) Social History [...] Comprehensive Visit Neurology Kenji Zaldivar M.D. [address] [place] [phone] documented as of this encounter Visit Diagnoses Not on filedocumented in this encounter
--- OUTSIDE RECORDS SUMMARY | 2021-11-03 07:11 | XMS_ITS | Encounter Summary ---
:1940 Author Organization [facility] Address [address] [place] [address] Care Team Providers Name Role Phone Unavailable Primary Care Provider Unavailable Encounter Details Date Type Department Care Team Description 08/29/2007 Hospital Encounter HX [facility] INTERNMED Mikala Pemberton M.D. [address] [place], [place] [address] (Wo rk) Social History Tobacco Use [...] Comprehensive Visit Neurology Kenji Zaldivar M.D. [address] [place] [phone] documented as of this encounter Visit Diagnoses Not on filedocumented in this encounter
--- OUTSIDE RECORDS SUMMARY | 2021-11-03 07:11 | XMS_ITS | Encounter Summary ---
:1940 Author Organization [facility] Address [address] [place] [address] Care Team Providers Name Role Phone Unavailable Primary Care Provider Unavailable Encounter Details Date Type Department Care Team Description 09/10/2007 Hospital Encounter HX NO MAPPING Jeferson Viramontes M.D. [address] [place], [place] [phone] (Wo rk) Social History Tobacco Use Types [...] or relatives? How often do you attend islam or More than 4 times per year 06/19/2021 gnosticist services? Do you belong to any clubs or Yes 06/19/2021 organizations such as islam groups, unions, fraternal or athletic groups, or [...] Comprehensive Visit Neurology Kenji Zaldivar M.D. [address] [place] [phone] documented as of this encounter Visit Diagnoses Not on filedocumented in this encounter
--- OUTSIDE RECORDS SUMMARY | 2021-11-03 07:11 | XMS_ITS | Encounter Summary ---
:1940 Author Organization [facility] Address [address] [place] [address] Care Team Providers Name Role Phone Unavailable Primary Care Provider Unavailable Encounter Details Date Type Department Care Team Description 12/17/2015 Hospital Encounter HX [facility] Jeb Berry M.D. [address] [place], [place] [phone] (Wo rk) Social History [...] encounter Progress Notes Delmar Luu M.D. - 12/17/2015 7:52 AM CDT [id number] Delmar Luu M.D./sowmya Electronically Signed By: DELMAR LUU MD On: 12/25/2015 07:51 AM Source: [facility] [email or web address] Document Id: [id number] documented in this encounter Miscellaneous Notes Miscellaneous - Delmar Luu M.D. - 12/17/2015 9:26 AM CDT Ambulatory Discharge Medication List [facility] [address] [place] [id number] Visit Information Name: LEONARD العراقيLIRavinder GILLIAM [facility] Number: [id number] Visit Date: 12/17/2015 09:26:05 Attending Provider: DELMAR LUU MD Primary Care [...] the Following Medications: Medication list as of 12-17-15 09:26 Attention: If you have any medications at [...] Electronically Signed By: DELMAR LUU MD Signed On:17-DEC-2015 09:26:03 Additional Information: Source: [facility] Document Id: [id number] Miscellaneous - Delmar Luu M.D. - 12/17/2015 9:26 AM CDT Ambulatory Patient Summary [address] [id number] Visit Information Name: KEVINAZEB TAWANA [facility] Number: [id number] Current Date: 12/17/2015 09:26:05 Physicians Attending Provider: DELMAR LUU MD Primary [...] the Following Medications: Medication list as of 12-17-15 09:26 Attention: If you have any medications at [...] Electronically Signed By: DELMAR LUU MD Signed On:17-DEC-2015 09:26:03 Your Allergies & Intolerances Substance Reaction Symptoms [...] if you dont have one. Go to [email or web address] and click on Create Your Account. Then, follow the directions to complete the online form. Youll be asked for your [facility] number which you can find at the top of this document. Your Goals/Additional instructions: Source: [facility] POWERCHART Document Id: [id number] documented in this encounter Plan of Treatment Upcoming Encounters Date Type Specialty Care Team Description 11/19/2021 Clinical Communication Admitting/Central Scheduling 11/23/2021 Comprehensive Visit Neurology Kenji Zaldivar M.D. [address] [place] [phone] documented as of this encounter Visit Diagnoses Not on filedocumented in this encounter
--- OUTSIDE RECORDS SUMMARY | 2021-11-03 07:11 | XMS_ITS | Encounter Summary ---
:1940 Author Organization [facility] Address [address] [place] [address] Care Team Providers Name Role Phone Unavailable Primary Care Provider Unavailable Encounter Details Date Type Department Care Team Description 01/19/2015 Historical Ophthalmology [facility] Delmar Mulligan M.D. [address] [place], [place] [phone] (Wo rk) Social History [...] encounter Progress Notes Delmar Mulligan M.D. - 01/19/2015 1:07 PM CDT Eye General CHIEF COMPLAINT CE HISTORY OF PRESENT ILLNESS Pt is noting changes at distance and near since last exam. Pt has to hold reading material too closeand has difficulty with night driving. IMPRESSION / REPORT / PLAN #1 Cataracts, nuclear both eyes. #2 Choroidal nevus, left eye. Stable, Plan: Update glasses. U/v protection. F/u one year. CE/ref DIAGNOSIS #1 Cataracts, nuclear both eyes. #2 Choroidal nevus, left eye. CDM Reports - EYEGEN Id: [id number] Status: Fnl documented in this encounter Plan of Treatment Upcoming Encounters Date Type Specialty Care Team Description 11/19/2021 Clinical Communication Admitting/Central Scheduling 11/23/2021 Comprehensive Visit Neurology Kenji Zaldivar M.D. 200 [place] [phone] documented as of this encounter Visit Diagnoses Not on filedocumented in this encounter
--- OUTSIDE RECORDS SUMMARY | 2021-11-03 07:12 | XMS_ITS | Encounter Summary ---
:1940 Author Organization [facility] Address [address] [place] [address] Care Team Providers Name Role Phone Unavailable Primary Care Provider Unavailable Encounter Details Date Type Department Care Team Description 07/22/2003 Hospital Encounter HX [facility] DERM Wilda Murphy M.D. 1835 [facility], [facility] [address] [place] [phone] (Wo rk) Social History Tobacco Use [...] 11/23/2021 Comprehensive Visit Neurology Kenji Zaldivar M.D. [address] [place] [phone] documented as of this encounter Visit Diagnoses Not on filedocumented in this encounter
--- OUTSIDE RECORDS SUMMARY | 2021-11-03 07:12 | XMS_ITS | Encounter Summary ---
:1940 Author Organization [facility] Address [address] [place] [address] Care Team Providers Name Role Phone Unavailable Primary Care Provider Unavailable Encounter Details Date Type Department Care Team Description 07/09/2003 Hospital Encounter HX [facility] INTERNMED Mkiala Pemberton M.D. [address] [place], [place] [address] (Wo rk) Social History Tobacco Use [...] Comprehensive Visit Neurology Kenji Zaldivar M.D. [address] [place] [phone] documented as of this encounter Visit Diagnoses Not on filedocumented in this encounter
--- OUTSIDE RECORDS SUMMARY | 2021-11-03 07:12 | XMS_ITS | Encounter Summary ---
:1940 Author Organization [facility] Address [address] [place] [address] Care Team Providers Name Role Phone Unavailable Primary Care Provider Unavailable Encounter Details Date Type Department Care Team Description 06/17/2002 Hospital Encounter HX [facility] Jeb Berry M.D. [address] [place], [place] [phone] (Wo rk) Social History [...] 11/23/2021 Comprehensive Visit Neurology Kenji Zaldivar M.D. [address] [place] [phone] documented as of this encounter Visit Diagnoses Not on filedocumented in this encounter
--- OUTSIDE RECORDS SUMMARY | 2021-11-03 07:12 | XMS_ITS | Encounter Summary ---
:1940 Author Organization [facility] Address [address] [place] [address] Care Team Providers Name Role Phone Unavailable Primary Care Provider Unavailable Encounter Details Date Type Department Care Team Description 03/17/2004 Hospital Encounter HX [facility] Jeb Berry M.D. [address] [place], [place] [phone] (Wo rk) Social History [...] or relatives? How often do you attend baptism or More than 4 times per year 06/19/2021 restorationist services? Do you belong to any clubs or Yes 06/19/2021 organizations such as baptism groups, unions, fraternal or athletic groups, or [...] 11/23/2021 Comprehensive Visit Neurology Kenji Zaldivar M.D. [address] [place] [phone] documented as of this encounter Visit Diagnoses Not on filedocumented in this encounter
--- OUTSIDE RECORDS SUMMARY | 2021-11-03 07:12 | XMS_ITS | Encounter Summary ---
:1940 Author Organization [facility] Address [address] [place] [address] Care Team Providers Name Role Phone Unavailable Primary Care Provider Unavailable Encounter Details Date Type Department Care Team Description 03/05/2002 Hospital Encounter HX [facility] DERM Wilda Murphy M.D. 1835 [facility], [facility] [address] [place] [phone] (Wo rk) Social History Tobacco Use [...] 11/23/2021 Comprehensive Visit Neurology Kenji Zaldivar M.D. [address] [place] [phone] documented as of this encounter Visit Diagnoses Not on filedocumented in this encounter
--- OUTSIDE RECORDS SUMMARY | 2021-11-03 07:12 | XMS_ITS | Encounter Summary ---
:1940 Author Organization [facility] Address [address] [place] [address] Care Team Providers Name Role Phone Unavailable Primary Care Provider Unavailable Encounter Details Date Type Department Care Team Description 01/26/2005 Hospital Encounter HX [facility] Yue Ayon M.D. [address] [place], [place] [phone] Social History Tobacco Use [...] Visit Neurology Kenji Zaldivar M.D. [address] [place] [phone] documented as of this encounter Visit Diagnoses Not on filedocumented in this encounter
--- OUTSIDE RECORDS SUMMARY | 2021-11-03 07:12 | XMS_ITS | Encounter Summary ---
:1940 Author Organization [facility] Address [address] [place] [address] Care Team Providers Name Role Phone Unavailable Primary Care Provider Unavailable Encounter Details Date Type Department Care Team Description 08/04/2000 Hospital Encounter HX [facility]OC Jeb Berry M.D. [address] [place], [place] [phone] (Wo rk) Social History [...] 11/23/2021 Comprehensive Visit Neurology Kenji Zaldivar M.D. [address] [place] [phone] documented as of this encounter Visit Diagnoses Not on filedocumented in this encounter
--- OUTSIDE RECORDS SUMMARY | 2021-11-03 07:12 | XMS_ITS | Encounter Summary ---
:1940 Author Organization [facility] Address [address] [place] [address] Care Team Providers Name Role Phone Unavailable Primary Care Provider Unavailable Encounter Details Date Type Department Care Team Description 09/20/2001 Hospital Encounter HX [facility] Jeb Berry M.D. [address] [place], [place] [phone] (Wo rk) Social History [...] 11/23/2021 Comprehensive Visit Neurology Kenji Zaldivar M.D. [address] [place] [phone] documented as of this encounter Visit Diagnoses Not on filedocumented in this encounter
--- OUTSIDE RECORDS SUMMARY | 2021-11-03 07:12 | XMS_ITS | Encounter Summary ---
:1940 Author Organization [facility] Address [address] [place] [address] Care Team Providers Name Role Phone Unavailable Primary Care Provider Unavailable Encounter Details Date Type Department Care Team Description 07/14/2000 Hospital Encounter HX [facility] Jeb Berry M.D. [address] [place], [place] [phone] (Wo rk) Social History [...] 11/23/2021 Comprehensive Visit Neurology Kenji Zaldivar M.D. [address] [place] [phone] documented as of this encounter Visit Diagnoses Not on filedocumented in this encounter
--- OUTSIDE RECORDS SUMMARY | 2021-11-03 07:12 | XMS_ITS | Encounter Summary ---
:1940 Author Organization [facility] Address [address] [place] [address] Care Team Providers Name Role Phone Unavailable Primary Care Provider Unavailable Encounter Details Date Type Department Care Team Description 05/14/2003 Hospital Encounter HX [facility] OW[facility] INTERNMED Mikala Pemberton M.D. [address] [place], [place] [address] (Wo rk) Social History Tobacco Use [...] Comprehensive Visit Neurology Kenji Zaldivar M.D. [address] [place] [phone] documented as of this encounter Visit Diagnoses Not on filedocumented in this encounter
--- OUTSIDE RECORDS SUMMARY | 2021-11-03 07:12 | XMS_ITS | Encounter Summary ---
:1940 Author Organization [facility] Address [address] [place] [address] Care Team Providers Name Role Phone Unavailable Primary Care Provider Unavailable Encounter Details Date Type Department Care Team Description 12/25/2003 Hospital Encounter HX [facility] OWOC Jeb Berry M.D. [address] [place], [place] [phone] (Wo rk) Social History [...] 11/23/2021 Comprehensive Visit Neurology Kenji Zaldivar M.D. [address] [place] [phone] documented as of this encounter Visit Diagnoses Not on filedocumented in this encounter
--- OUTSIDE RECORDS SUMMARY | 2021-11-03 07:12 | XMS_ITS | Encounter Summary ---
:1940 Author Organization [facility] Address [address] [place] [address] Care Team Providers Name Role Phone Unavailable Primary Care Provider Unavailable Encounter Details Date Type Department Care Team Description 05/09/2000 Hospital Encounter HX [facility] INTERNMED Mikala Pemberton M.D. [address] [place], [place] [address] (Wo rk) Social History Tobacco Use [...] Visit Neurology Kenji Zaldivar M.D. [address] [place] [phone] documented as of this encounter Visit Diagnoses Not on filedocumented in this encounter
--- OUTSIDE RECORDS SUMMARY | 2021-11-03 07:12 | XMS_ITS | Encounter Summary ---
:1940 Author Organization [facility] Address [address] [place] [address] Care Team Providers Name Role Phone Unavailable Primary Care Provider Unavailable Encounter Details Date Type Department Care Team Description 11/20/2003 Hospital Encounter HX [facility] INTERNMED Mikala Pemberton M.D. [address] [place], [place] [address] (Wo rk) Social History Tobacco Use [...] Comprehensive Visit Neurology Kenji Zaldivar M.D. [address] [place] [phone] documented as of this encounter Visit Diagnoses Not on filedocumented in this encounter
--- OUTSIDE RECORDS SUMMARY | 2021-11-03 07:12 | XMS_ITS | Encounter Summary ---
:1940 Author Organization [facility] Address [address] [place] [address] Care Team Providers Name Role Phone Unavailable Primary Care Provider Unavailable Encounter Details Date Type Department Care Team Description 08/21/2002 Hospital Encounter HX [facility] OW[facility] DERM Wilda Murphy M.D. 1835 [facility], [facility] [address] [place] [phone] (Wo rk) Social History Tobacco Use [...] 11/23/2021 Comprehensive Visit Neurology Kenji Zaldivar M.D. [address] [place] [phone] documented as of this encounter Visit Diagnoses Not on filedocumented in this encounter
--- OUTSIDE RECORDS SUMMARY | 2021-11-03 07:12 | XMS_ITS | Encounter Summary ---
:1940 Author Organization [facility] Address [address] [place] [address] Care Team Providers Name Role Phone Unavailable Primary Care Provider Unavailable Encounter Details Date Type Department Care Team Description 01/24/2001 Hospital Encounter HX [facility] OW[facility] INTERNMED Mikala Pemberton M.D. [address] [place], [place] [address] (Wo rk) Social History Tobacco Use [...] Comprehensive Visit Neurology Kenji Zaldivar M.D. [address] [place] [phone] documented as of this encounter Visit Diagnoses Not on filedocumented in this encounter
--- OUTSIDE RECORDS SUMMARY | 2021-11-03 07:12 | XMS_ITS | Encounter Summary ---
:1940 Author Organization [facility] Address [address] [place] [address] Care Team Providers Name Role Phone Unavailable Primary Care Provider Unavailable Encounter Details Date Type Department Care Team Description 05/11/2004 Hospital Encounter HX [facility] OW[facility] INTERNMED Mikala Pemberton M.D. [address] [place], [place] [address] (Wo rk) Social History Tobacco Use [...] Comprehensive Visit Neurology Kenji Zaldivar M.D. [address] [place] [phone] documented as of this encounter Visit Diagnoses Not on filedocumented in this encounter
--- OUTSIDE RECORDS SUMMARY | 2021-11-03 07:12 | XMS_ITS | Encounter Summary ---
:1940 Author Organization [facility] Address [address] [place] [address] Care Team Providers Name Role Phone Unavailable Primary Care Provider Unavailable Encounter Details Date Type Department Care Team Description 10/30/2002 Hospital [facility] Ursula Ferrera M.D. [address] [place] [phone] (Wo rk) Social History Tobacco Use Types [...] 11/23/2021 Comprehensive Visit Neurology Kenji Zaldivar M.D. [address] [place] [phone] documented as of this encounter Visit Diagnoses Not on filedocumented in this encounter
--- OUTSIDE RECORDS SUMMARY | 2021-11-03 07:12 | XMS_ITS | Encounter Summary ---
:1940 Author Organization [facility] Address [address] [place] [address] Care Team Providers Name Role Phone Unavailable Primary Care Provider Unavailable Encounter Details Date Type Department Care Team Description 04/14/2004 Hospital Encounter HX [facility] OW[facility] INTERNMED Mikala Pemberton M.D. [address] [place], [place] [address] (Wo rk) Social History Tobacco Use [...] Visit Neurology Kenji Zaldivar M.D. [address] [place] [phone] documented as of this encounter Visit Diagnoses Not on filedocumented in this encounter
--- OUTSIDE RECORDS SUMMARY | 2021-11-03 07:12 | XMS_ITS | Encounter Summary ---
:1940 Author Organization [facility] Address [address] [place] [address] Care Team Providers Name Role Phone Unavailable Primary Care Provider Unavailable Encounter Details Date Type Department Care Team Description 10/09/2000 Hospital Encounter HX [facility] OWOC FAMILYPRA Katty Katz, N.P. [address] [facility] [place] [address] Social History Tobacco Use Types Packs/Day Years [...] Visit Neurology Kenji Zaldivar M.D. [address] [place] [phone] documented as of this encounter Visit Diagnoses Not on filedocumented in this encounter
--- OUTSIDE RECORDS SUMMARY | 2021-11-03 07:12 | XMS_ITS | Encounter Summary ---
:1940 Author Organization [facility] Address [address] [place] [address] Care Team Providers Name Role Phone Unavailable Primary Care Provider Unavailable Encounter Details Date Type Department Care Team Description 03/16/2004 Hospital Encounter HX [facility] OWOC Jeb Berry M.D. [address] [place], [place] [phone] (Wo rk) Social History [...] 11/23/2021 Comprehensive Visit Neurology Kenji Zaldivar M.D. [address] [place] [phone] documented as of this encounter Visit Diagnoses Not on filedocumented in this encounter
--- OUTSIDE RECORDS SUMMARY | 2021-11-03 07:12 | XMS_ITS | Encounter Summary ---
:1940 Author Organization [facility] Address [address] [place] [address] Care Team Providers Name Role Phone Unavailable Primary Care Provider Unavailable Encounter Details Date Type Department Care Team Description 05/08/2001 Hospital Encounter HX [facility] OWOC DERM Wilda Murphy M.D. 1835 [facility], [facility] [address] [place] [address] (Wo rk) Social History Tobacco Use [...] Comprehensive Visit Neurology Kenji Zaldivar M.D. [address] [place] [phone] documented as of this encounter Visit Diagnoses Not on filedocumented in this encounter
--- OUTSIDE RECORDS SUMMARY | 2021-11-03 07:12 | XMS_ITS | Encounter Summary ---
:1940 Author Organization [facility] Address [address] [place] [address] Care Team Providers Name Role Phone Unavailable Primary Care Provider Unavailable Encounter Details Date Type Department Care Team Description 03/04/2004 Hospital Encounter HX [facility] OWOC FAMILYPRA Evan Benito M.D. [address] [place] [phone] (Wo rk) Social History Tobacco Use Types [...] Visit Neurology Kenji Zaldivar M.D. [address] [place] [phone] documented as of this encounter Visit Diagnoses Not on filedocumented in this encounter
--- OUTSIDE RECORDS SUMMARY | 2021-11-03 07:12 | XMS_ITS | Encounter Summary ---
:1940 Author Organization [facility] Address [address] [place] [address] Care Team Providers Name Role Phone Unavailable Primary Care Provider Unavailable Encounter Details Date Type Department Care Team Description 06/30/2004 Hospital Encounter HX [facility] OWOC DERM Wilda Murphy M.D. 1835 [facility], [facility] [address] [place] [phone] (Wo rk) Social History Tobacco Use [...] 11/23/2021 Comprehensive Visit Neurology Kenji Zaldivar M.D. [address] [place] [phone] documented as of this encounter Visit Diagnoses Not on filedocumented in this encounter
--- OUTSIDE RECORDS SUMMARY | 2021-11-03 07:12 | XMS_ITS | Encounter Summary ---
:1940 Author Organization [facility] Address [address] [place] [address] Care Team Providers Name Role Phone Unavailable Primary Care Provider Unavailable Encounter Details Date Type Department Care Team Description 04/07/2003 Hospital Encounter HX [facility] OWOC INTERNMED Mikala Pemberton M.D. [address] [place], [place] [address] (Wo rk) Social History Tobacco Use [...] Comprehensive Visit Neurology Kneji Zaldivar M.D. [address] [place] [phone] documented as of this encounter Visit Diagnoses Not on filedocumented in this encounter
--- OUTSIDE RECORDS SUMMARY | 2021-11-03 07:12 | XMS_ITS | Encounter Summary ---
:1940 Author Organization [facility] Address [address] [place] [address] Care Team Providers Name Role Phone Unavailable Primary Care Provider Unavailable Encounter Details Date Type Department Care Team Description 03/06/2002 Hospital Encounter HX [facility] OWOC INTERNMED Mikala Pemberton M.D. [address] [place], [place] [address] (Wo rk) Social History Tobacco Use [...] Comprehensive Visit Neurology Kenji Zaldivar M.D. [address] [place] [phone] documented as of this encounter Visit Diagnoses Not on filedocumented in this encounter
--- OUTSIDE RECORDS SUMMARY | 2021-11-03 07:12 | XMS_ITS | Encounter Summary ---
:1940 Author Organization [facility] Address [address] [place] [address] Care Team Providers Name Role Phone Unavailable Primary Care Provider Unavailable Encounter Details Date Type Department Care Team Description 04/02/2003 Hospital Encounter HX [facility] OW[facility] INTERNMED Mikala Pemberton M.D. [address] [place], [place] [address] (Wo rk) Social History Tobacco Use [...] Comprehensive Visit Neurology Kenji Zaldivar M.D. [address] [place] [phone] documented as of this encounter Visit Diagnoses Not on filedocumented in this encounter
--- OUTSIDE RECORDS SUMMARY | 2021-11-03 07:12 | XMS_ITS | Encounter Summary ---
:1940 Author Organization [facility] Address [address] [place] [address] Care Team Providers Name Role Phone Unavailable Primary Care Provider Unavailable Encounter Details Date Type Department Care Team Description 08/19/2004 Hospital Encounter HX [facility] OWOC Jeb Berry M.D. [address] [place], [place] [phone] (Wo rk) Social History [...] 11/23/2021 Comprehensive Visit Neurology Kenji Zaldivar M.D. [address] [place] [phone] documented as of this encounter Visit Diagnoses Not on filedocumented in this encounter
--- OUTSIDE RECORDS SUMMARY | 2021-11-03 07:12 | XMS_ITS | Encounter Summary ---
:1940 Author Organization [facility] Address [address] [place] [address] Care Team Providers Name Role Phone Unavailable Primary Care Provider Unavailable Encounter Details Date Type Department Care Team Description 10/11/2001 Hospital Encounter [facility] INTERNMED Mikala Pemberton M.D. [address] [place], [place] [phone] (Wo rk) Social History Tobacco Use [...] Comprehensive Visit Neurology Kenji Zaldivar M.D. [address] [place] [phone] documented as of this encounter Visit Diagnoses Not on filedocumented in this encounter
--- OUTSIDE RECORDS SUMMARY | 2021-11-03 07:12 | XMS_ITS | Encounter Summary ---
:1940 Author Organization [facility] Address [address] [place] [address] Care Team Providers Name Role Phone Unavailable Primary Care Provider Unavailable Encounter Details Date Type Department Care Team Description 07/19/2001 Hospital Encounter [facility] DERM Wilda Murphy M.D. 18[address] [facility], [facility] [address] [place] [phone] (Wo rk) Social History Tobacco Use [...] 11/23/2021 Comprehensive Visit Neurology Kenji Zaldivar M.D. [address] [place] [phone] documented as of this encounter Visit Diagnoses Not on filedocumented in this encounter
--- OUTSIDE RECORDS SUMMARY | 2021-11-03 07:12 | XMS_ITS | Encounter Summary ---
:1940 Author Organization [facility] Address [address] [place] [address] Care Team Providers Name Role Phone Unavailable Primary Care Provider Unavailable Encounter Details Date Type Department Care Team Description 03/01/2001 Hospital Encounter [facility] INTERNMED Mikala Pemberton M.D. [address] [place], [place] [phone] (Wo rk) Social History Tobacco Use [...] Admitting/Central Scheduling 11/23/2021 Comprehensive Visit Neurology Kenji Zaldiavr M.D. [address] [place] [phone] documented as of this encounter Visit Diagnoses Not on filedocumented in this encounter
--- OUTSIDE RECORDS SUMMARY | 2021-11-03 07:12 | XMS_ITS | Encounter Summary ---
:1940 Author Organization [facility] Address [address] [place] [address] Care Team Providers Name Role Phone Unavailable Primary Care Provider Unavailable Encounter Details Date Type Department Care Team Description 03/24/2003 Hospital Encounter HX [facility] INTERNMED ProviderZack Social History Tobacco Use Types Packs/Day Years [...] Visit Neurology Kenji Zaldivar M.D. [address] [place] [phone] documented as of this encounter Visit Diagnoses Not on filedocumented in this encounter
--- OUTSIDE RECORDS SUMMARY | 2021-11-03 07:12 | XMS_ITS | Encounter Summary ---
:1940 Author Organization [facility] Address [address] [place] [address] Care Team Providers Name Role Phone Unavailable Primary Care Provider Unavailable Encounter Details Date Type Department Care Team Description 02/13/2001 Hospital Encounter HX [facility]OC SURGERY Provider, Josephine vasquez Social History Tobacco Use Types Packs/Day Years [...] Visit Neurology Kenji Zaldivar M.D. [address] [place] [phone] documented as of this encounter Visit Diagnoses Not on filedocumented in this encounter
--- OUTSIDE RECORDS SUMMARY | 2021-11-03 07:12 | XMS_ITS | Encounter Summary ---
:1940 Author Organization [facility] Address [address] [place] [address] Care Team Providers Name Role Phone Unavailable Primary Care Provider Unavailable Encounter Details Date Type Department Care Team Description 01/29/2002 Hospital Encounter [facility]X [facility] INTERNMED Mikala Pemberton M.D. [address] [place], [place] [phone] (Wo rk) Social History Tobacco Use [...] Comprehensive Visit Neurology Kenji Zaldivar M.D. [address] [place] [phone] documented as of this encounter Visit Diagnoses Not on filedocumented in this encounter
--- OUTSIDE RECORDS SUMMARY | 2021-11-03 07:12 | XMS_ITS | Encounter Summary ---
:1940 Author Organization [facility] Address [address] [place] [address] Care Team Providers Name Role Phone Unavailable Primary Care Provider Unavailable Encounter Details Date Type Department Care Team Description 02/13/2004 Hospital Encounter [facility] INTERNMED Mikala Pemberton M.D. [address] [place], [place] [phone] (Wo rk) Social History Tobacco Use [...] Comprehensive Visit Neurology Kenji Zaldivar M.D. [address] [place] [phone] documented as of this encounter Visit Diagnoses Not on filedocumented in this encounter
--- OUTSIDE RECORDS SUMMARY | 2021-11-03 07:12 | XMS_ITS | Encounter Summary ---
:1940 Author Organization [facility] Address [address] [place] [address] Care Team Providers Name Role Phone Unavailable Primary Care Provider Unavailable Encounter Details Date Type Department Care Team Description 09/23/2003 Hospital Encounter [facility]X [facility] INTERNMED Mikala Pemberton M.D. [address] [place], [place] [phone] (Wo rk) Social History Tobacco Use [...] Comprehensive Visit Neurology Kenji Zaldivar M.D. [address] [place] [phone] documented as of this encounter Visit Diagnoses Not on filedocumented in this encounter
--- OUTSIDE RECORDS SUMMARY | 2021-11-03 07:12 | XMS_ITS | Encounter Summary ---
:1940 Author Organization [facility] Address [address] [place] [address] Care Team Providers Name Role Phone Unavailable Primary Care Provider Unavailable Encounter Details Date Type Department Care Team Description 03/22/2004 Hospital Encounter HX [facility] Jeb Berry M.D. [address] [place], [place] [phone] (Wo rk) Social History [...] Comprehensive Visit Neurology Kenji Zaldivar M.D. [address] [place] [phone] documented as of this encounter Visit Diagnoses Not on filedocumented in this encounter
--- OUTSIDE RECORDS SUMMARY | 2021-11-03 07:12 | XMS_ITS | Encounter Summary ---
:1940 Author Organization [facility] Address [address] [place] [address] Care Team Providers Name Role Phone Unavailable Primary Care Provider Unavailable Encounter Details Date Type Department Care Team Description 03/30/2004 Hospital Encounter [facility] Jeb Berry M.D. [address] [place], [place] [phone] (Wo rk) Social History [...] 11/23/2021 Comprehensive Visit Neurology Kenji Zaldivar M.D. [address] [place] [phone] documented as of this encounter Visit Diagnoses Not on filedocumented in this encounter
--- OUTSIDE RECORDS SUMMARY | 2021-11-03 07:12 | XMS_ITS | Encounter Summary ---
:1940 Author Organization [facility] Address [address] [place] [address] Care Team Providers Name Role Phone Unavailable Primary Care Provider Unavailable Encounter Details Date Type Department Care Team Description 04/17/2003 Hospital Encounter HX [facility] INTERNMED Mikala Pemberton M.D. [address] [place], [place] [phone] (Wo rk) Social History Tobacco Use [...] Comprehensive Visit Neurology Kenji Zaldivar M.D. [address] [place] [phone] documented as of this encounter Visit Diagnoses Not on filedocumented in this encounter
--- OUTSIDE RECORDS SUMMARY | 2021-11-03 07:12 | XMS_ITS | Encounter Summary ---
:1940 Author Organization [facility] Address [address] [place] [address] Care Team Providers Name Role Phone Unavailable Primary Care Provider Unavailable Encounter Details Date Type Department Care Team Description 12/30/2003 Hospital Encounter HX [facility] Jeb Berry M.D. [address] [place], [place] [phone] (Wo rk) Social History [...] Comprehensive Visit Neurology Kenji Zaldivar M.D. [address] [place] [phone] documented as of this encounter Visit Diagnoses Not on filedocumented in this encounter
[2021-11-03] MEDS: LEVOTHYROXINE 75 MCG TABLET PO (08:54)
[2021-11-03] MEDS: SODIUM CHLORIDE 1 GM TABLET PO ×3 (08:55→18:49)
[2021-11-03] MEDS: OMEPRAZOLE 20 MG CAPSULE DR 40 MG PO (08:58)
[2021-11-03 09:21] LABS: Lipase* < 10 U/L (23-300)
[2021-11-03] MEDS: FLUDROCORTISONE ACETATE 0.1 MG TABLET 0.2 MG PO (11:47)
[2021-11-03] MEDS: POTASSIUM CHLORIDE 10 MEQ CAPSULE ER 20 MEQ PO ×2 (12:58→18:49)
--- NOTE | 2021-11-03 13:01 | PM.IMHP1 ---
Hospitalist- H&P: SKYLER History of Present Illness Date Seen: 11/03/21 Chief complaint: Weakness Narrative: Azeb العراقي is a 81 year old female admitted to the hospital with progressive weakness and orthostatic hypotension in the context of metastatic pancreatic adenocarcinoma. Last night she went to the bathroom where she had a diarrhea stool. She was near syncopal on the toilet. She laid on the floor of the bathroom. Her came to help her up and brought her to the emergency room. Patient was diagnosed with metastatic adenocarcinoma April 2020. Diagnosis was made after her epigastric pain and weight loss. At that time she was found to have encasement of the celiac artery, complete common hepatic artery and SMA locally advanced lymphadenopathy. 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 June 2021 treated with oral capecitabine and external beam radiation. Finished treatment 08/13/2021 09/20/2021 she had celiac plexus block for pain control. Procedures performed at [facility]. Following this she has had significant problems with orthostatic hypotension. Initially hospitalized at [facility]. Hospitalized here 3 weeks ago for the same problem. She reports she is getting worse over the past 6 weeks. She has not had syncope in the last 3 weeks but she is reporting near continuous presyncope when she is standing. Even sitting she will occasionally get lightheaded. She has no problems when she is supine. She was started on Florinef, sodium chloride tablets and more recently pyridostigmine. Despite these intervention she does not feel an improvement and feels like she is going to pass out continuously when she is up moving. She is also feeling profoundly weak. She reports that at time she feels like her muscles will not hold her up. She has profound fatigue as well. She has anorexia with loss of appetite. She is eating and drinking poorly. She is not aware of any fever. Sensor celiac plexus block she has not had significant abdominal pain. Review of Systems Narrative: She reports stooling a few times a day. Mostly formed but as the day goes on they get more loose stools. She was treated with Creon for pancreatic insufficiency but did not find this to be helpful with her loose stools. She takes Imodium which works well for her. She is having some increased gas. She reports dyspnea with any activity. No dyspnea at rest. 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) Surgical History History of appendectomy (10/22/09) History of dilation and curettage (10/22/09) Family History Mother Colon cancer Maternal Grandmother Colon cancer Social History Highest level of school completed/degree received: some college, no degree Smoking Status: Never smoker Do you use any of these nicotine containing products: None How often do you have a drink containing alcohol: never AUDIT-C Alcohol total score: 0 Non-prescribed substance use: denies use Caffeine: No service: No Meds Home Medications and Allergies Home Medications Medication Instructions Recorded Confirmed Type calcitriol 0.25 mcg capsule 0.5 mcg PO DAILY 09/29/21 11/03/21 History calcium 325 mg-vit D3 12.5 3 tab PO DAILY 09/29/21 11/03/21 History mcg-zinc 2.75 [id number] tablet (Citracal-D3 Maximum Plus) levothyroxine 75 mcg tablet 75 mcg PO DAILY 09/29/21 11/03/21 History loperamide 2 mg capsule 2 mg PO PRN 09/29/21 11/03/21 History magnesium oxide 400 mg (241.3 mg 1,600 mg PO DAILY 09/29/21 11/03/21 History magnesium) tablet nystatin 100,000 unit/mL oral 5 ml PO QID PRN 09/29/21 11/03/21 History suspension pantoprazole 40 mg tablet,delayed 40 mg PO DAILY 09/29/21 11/03/21 History release Allergies Allergy/AdvReac Type Severity Reaction Status Date / Time No Known Drug Allergies Allergy Verified 11/03/21 00:08 Exam Narrative: Exam Narrative: She is alert and appears in no distress. She gives her own history. Corroborated by her . Head is normal. Eyes notable for scleral icterus. Extraocular movements are full pupils are equal round reactive to light. Oropharynx with dry mucous membranes. Neck is supple without mass or adenopathy. Respirations are clear to auscultation. Cardiovascular: S1, S2, regular rate and rhythm. Abdomen: Bowel sounds active. Abdomen is soft she has mild abdominal distension. Minimal abdominal tenderness. Extremities with no edema. She has marked loss of muscle mass in her arms and legs. Intact pedal pulses. A slight jaundiced appearance to her skin. She moves all 4 extremities well. She is however quite weak and unable to sit up in bed without assistance. Orthostatic vitals obtained shortly after my exam: Supine blood pressure 103/69 with a pulse of 86. Sitting blood pressure 94/65 with a pulse of 92. Standing blood pressure 78/50 with a pulse of 74. When standing she felt presyncopal. Const: Vital Signs, click to edit/add: Vital Signs - 24 hr 11/03/21 00:01 11/03/21 04:52 11/03/21 00:20 Temperature 99.8 F H 98.0 F Pulse Rate [Left P ulse Oximeter] 106 H 104 H Respiratory Rate 28 H Blood Pressure [Le ft Arm] Blood Pressure [Ri ght Upper Arm] 121/75 129/66 Pulse Oximetry 92 93 [facility] Room Air 11/03/21 00:40 11/03/21 01:40 11/03/21 02:00 Temperature Pulse Rate [Left P ulse Oximeter] 101 H 97 95 Respiratory Rate Blood Pressure [Le ft Arm] Blood Pressure [Ri ght Upper Arm] 120/70 131/63 119/69 Pulse Oximetry 92 93 93 [facility] Room Air Room Air 11/03/21 02:20 11/03/21 02:40 11/03/21 03:00 Temperature Pulse Rate [Left P ulse Oximeter] 95 93 90 Respiratory Rate Blood Pressure [Le ft Arm] Blood Pressure [Ri ght Upper Arm] 125/62 119/67 115/65 Pulse Oximetry 93 93 93 [facility] Room Air Room Air 11/03/21 03:20 11/03/21 03:40 11/03/21 04:00 Temperature Pulse Rate [Left P ulse Oximeter] 86 82 82 Respiratory Rate Blood Pressure [Le ft Arm] Blood Pressure [Ri ght Upper Arm] 122/69 127/70 125/72 Pulse Oximetry 93 94 94 Oxygen Delivery Me thod Room Air Room Air Room Air 11/03/21 04:20 11/03/21 04:40 11/03/21 05:00 Temperature Pulse Rate [Left P ulse Oximeter] 83 84 84 Respiratory Rate Blood Pressure [Le ft Arm] Blood Pressure [Ri ght Upper Arm] 118/72 109/68 111/71 Pulse Oximetry 94 93 93 Oxygen Delivery Me thod Room Air Room Air Room Air 11/03/21 05:32 11/03/21 05:51 11/03/21 07:30 Temperature 98.2 F 97.5 F L Pulse Rate [Left P ulse Oximeter] Respiratory Rate 24 28 H 18 Blood Pressure [Le ft Arm] 152/78 H Blood Pressure [Ri ght Upper Arm] Pulse Oximetry 95 95 97 Oxygen Delivery Me thod Room Air Room Air Room Air Documenting provider has reviewed patient's vital signs: yes Hospitalist - H&P: Result Labs Labs: Short CBC 11/03/21 Range/Units 01:15 WBC 12.37 H (4.50-11.00) K/uL Hgb 8.1 L (12.0-16.0) gm/dL Hct 24.8 L (33.0-51.0) % Plt Count 272 (140-440) K/uL BMP 11/03/21 01:15 Sodium 136 Potassium 3.8 Chloride 107 Carbon Dioxide 24 BUN 12 Creatinine 0.5 Glucose 134 H Calcium 7.6 L Liver Function 11/03/21 Range/Units 01:15 Total Bilirubin 7.1 H (0.1-1.5) mg/dL Direct Bilirubin 6.0 H (0.0-0.5) mg/dL AST 96 H (12-35) U/L ALT 65 H (4-35) U/L Alkaline Phosphatase 1078 H (40-150) U/L Albumin 2.4 L (3.3-5.0) g/dL Assessment and Plan Assessment and plan (1) 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 Also now with ascites. Status: Acute Assessment and Plan: Will discuss with her oncologist's plan of care going forward. Appears at this time to be at terminal stages of her cancer. (2) Weakness: Status: Acute Assessment and Plan: Patient appears cachectic. By her history she is profoundly weak and getting to the point where ambulation is difficult and dangerous (3) Orthostatic hypotension: Problem comment: Dxed at [place] 10/15 (they started Florinef and salt tablets) Status: Acute Assessment and Plan: Linked to her celiac plexus block in timing. Will increase Florinef since she is tolerating it well and will add in midodrine. This is causing serious symptoms. (4) Jaundice: Status: Acute Assessment and Plan: Likely due to liver Mets. No evidence on current CT of obstruction of the common bile duct (5) End of life care: Status: Acute Assessment and Plan: Began discussion about end of life care and hospice with patient today. Continue this discussion with patient and her and oncologist Plan Admission for evaluation and management of her progressive weakness, orthostatic hypotension, pancreatic cancer. Pending oncology opinion it appears to me that moving to palliative care and possibly hospice is appropriate. Will attempt to make her less symptomatic to possibly allow for her to return home with her . Total time spent today is 75 minutes, 50 minutes in coordination of care and discussing with patient, and other providers management of orthostatic hypotension and management of end-stage pancreatic cancer.
[2021-11-03] MEDS: MAGNESIUM OXIDE 400 MG TABLET 1600 MG PO (13:02)
[2021-11-03] MEDS: MIDODRINE HCL 5 MG TABLET PO ×2 (13:48→21:07)
--- NOTE | 2021-11-03 14:18 | PC.NURSE ---
shift note: orthostatic BP done supine-103/69,p-86,s-95; sitting 94/65, p-92, standing 78/50, p-74. pt became lightheaded when standing. Dr. Estrada notified and orders for new medication
[2021-11-03] MEDS: ENOXAPARIN 40 MG/0.4 ML INJ SUBCUT (21:07)
[2021-11-03] MEDS: LOPERAMIDE HCL 2 MG CAPSULE PO (21:07)
[2021-11-04] VITALS (9 sets, daily range): BP systolic 87–148; BP diastolic 57–87; PULSE 64–106; RESP 16–26; TEMP 36.6–37.6; O2SAT 93–96
--- NOTE | 2021-11-04 06:38 | PC.NURSE ---
Alert and oriented x3. Vitals stable. Denies painSkin still jaundice in color.. Assist of one with ambulation. States feeling way better. Denies nausea and vomiting.. No new changes noted
[2021-11-04] MEDS: OMEPRAZOLE 20 MG CAPSULE DR 40 MG PO (06:55)
[2021-11-04] MEDS: LEVOTHYROXINE 75 MCG TABLET PO (06:56)
[2021-11-04] MEDS: POTASSIUM CHLORIDE 10 MEQ CAPSULE ER 20 MEQ PO ×2 (07:50→18:00)
[2021-11-04] MEDS: SODIUM CHLORIDE 1 GM TABLET PO ×3 (07:50→18:00)
[2021-11-04] MEDS: calcitrioL 0.25 MCG CAPSULE 0.5 MCG PO (09:53)
[2021-11-04] MEDS: FLUDROCORTISONE ACETATE 0.1 MG TABLET 0.2 MG PO (09:54)
[2021-11-04] MEDS: MIDODRINE HCL 5 MG TABLET PO ×2 (09:55→21:14)
[2021-11-04] MEDS: HEPARIN 500 UNIT/5 ML SYRINGE IVF (10:09)
[2021-11-04 10:27] LABS: Basophils Absolute Auto 0.01 K/uL (0.00-0.30); Basophils Percent Auto 0.2 % (0.0-3.0); Eosinophils Absolute Auto 0.06 K/uL (0.00-0.50); Eosinophils Percent Auto 0.9 % (0.0-7.0); Hematocrit 35.6 % (33.0-51.0); Hemoglobin* 11.5 gm/dL (12.0-16.0); Immature Granulocytes Abs Auto 0.05 K/uL (0.00-0.30); Lymphocytes Percent Auto 1.8 % (20-44); Mean Corpuscular HGB Conc 32 gm/dL (32-36); Mean Corpuscular Hemoglobin 32 pg (26-34); Mean Corpuscular Volume 99 fL (80-100); Monocytes Percent Auto 6.6 % (0.0-11.0); Neutrophils Percent Auto 89.7 % (42.0-72.0); Platelet Count* 202 K/uL (140-440); RDW Coefficient of Variation % 16.9 % (11.5-15.5); White Blood Count* 6.49 K/uL (4.50-11.00)
[2021-11-04 10:31] LABS: Slide Review Reflex No
[2021-11-04 10:39] LABS: Albumin* 2.3 g/dL (3.3-5.0); Chloride* 107 mmol/L (96-114); Potassium* 4.4 mmol/L (3.6-5.1); Sodium* 135 mmol/L (135-149)
[2021-11-04 10:42] LABS: Alanine Aminotransferase* 55 U/L (4-35); Alkaline Phosphatase* 904 U/L (40-150); Aspartate Amino Transferase* 72 U/L (12-35); Bilirubin Total* 5.6 mg/dL (0.1-1.5); Blood Urea Nitrogen* 14 mg/dL (7-30); Carbon Dioxide* 22 mmol/L (20-32); Creatinine* 0.6 mg/dL (0.5-1.5); Est. Creatinine Clearance* 37.56; Estimated Glomerular Filt Rate 91 ml/min; Glucose* 154 mg/dL (60-115); Total Protein* 5.3 g/dL (6.0-8.3)
[2021-11-04 10:43] LABS: Calcium* 7.7 mg/dL (8.4-10.6)
[2021-11-04] MEDS: MAGNESIUM OXIDE 400 MG TABLET 1600 MG PO (12:37)
--- NOTE | 2021-11-04 15:49 | P.IMPN_ITS ---
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 Also now with ascites. Status: Acute Assessment and Plan: Patient is doubtful that she is strong enough to receive any further therapy. She is undecided about enrolling in hospice now or having another appointment with Dr. Vieira to discuss options. (2) Weakness: Status: Acute Assessment and Plan: Weakness appears to be disabling for her at this point. Ongoing assessment to determine whether she will be able to live independently with her . (3) Orthostatic hypotension: Problem details: Dxed at [facility] 10/15 (they started Florinef and salt tablets) Status: Acute Assessment and Plan: Modest improvement in symptoms today (4) Jaundice: Status: Acute Assessment and Plan: Stable (5) End of life care: Status: Acute Assessment and Plan: Patient undecided about palliative chemotherapy verses hospice but leaning towards hospice at this time Plan Continue treatment for orthostatic hypotension. Probable discharge tomorrow based on clinical course and functional status Time Spent With Patient Total time spent: Total time spent today is 45 minutes, 30 minutes in coordination of care and discussing with patient, and other providers management of symptoms and end of life care Subjective Date Seen: 11/04/21 Interval history: 81-year-old female seen in followup of adenocarcinoma of the pancreas, weakness, nausea and orthostatic hypotension. Patient thinks her orthostatics symptoms might be a little better today having started on midodrine. She still has no appetite and is eating very little. She still feels weak. No significant concerns about pain. I spoke with about her status. Explained that she is having new metastatic disease in the liver associated with jaundice. Also discussed declining functional status with orthostatic hypotension and weakness and anorexia. He indicates that there is a second-line of therapy after FOLFIRINOX which she had last year. She would need to be in better functional status to tolerate this however. I reviewed this with the patient as well. Alternatively she could enroll in hospice. Exam Narrative: Exam Narrative: Tired appearing but otherwise in no distress. She is oriented to her circumstances. She has mild jaundice. Mild scleral icterus. Oropharynx is normal. Respirations are clear to auscultation. Cardiovascular: S1, S2, regular rate and rhythm. Abdomen: Bowel sounds active. She has mild abdominal distension without significant tenderness. No significant edema. Const: Vital Signs, click to edit/add: Vital Signs - 24 hr 11/03/21 16:00 11/03/21 20:00 11/03/21 22:09 Temperature 96.9 F L 97.8 F Pulse Rate [Left B rachial] 92 84 84 Pulse Rate [orthos tatic lying Left] Pulse Rate [orthos tatic sitting Left ] Pulse Rate [orthos tatic standing Lef t] Respiratory Rate 18 18 18 Blood Pressure [Le ft Arm] 130/92 H 126/74 Blood Pressure [or thostatic lying Le ft Arm] Blood Pressure [or thostatic sitting Left Arm] Blood Pressure [or thostatic standing Left Arm] Pulse Oximetry 94 94 Oxygen Delivery Me thod Room Air Room Air 11/03/21 23:51 11/04/21 04:00 11/04/21 07:00 Temperature 97.8 F 97.8 F Pulse Rate [Left B rachial] 80 83 72 Pulse Rate [orthos tatic lying Left] Pulse Rate [orthos tatic sitting Left ] Pulse Rate [orthos tatic standing Lef t] Respiratory Rate 18 16 20 Blood Pressure [Le ft Arm] 122/88 148/87 H Blood Pressure [or thostatic lying Le ft Arm] Blood Pressure [or thostatic sitting Left Arm] Blood Pressure [or thostatic standing Left Arm] Pulse Oximetry 94 93 Oxygen Delivery Me thod Room Air Room Air 11/04/21 08:00 11/04/21 10:21 11/04/21 12:00 Temperature 98.6 F 98 F Pulse Rate [Left B rachial] 72 64 Pulse Rate [orthos tatic lying Left] 85 Pulse Rate [orthos tatic sitting Left ] 96 Pulse Rate [orthos tatic standing Lef t] 106 H Respiratory Rate 20 22 Blood Pressure [Le ft Arm] 146/81 H 141/70 H Blood Pressure [or thostatic lying Le ft Arm] 101/66 Blood Pressure [or thostatic sitting Left Arm] 100/70 Blood Pressure [or thostatic standing Left Arm] 87/57 L Pulse Oximetry 95 96 Oxygen Delivery Me thod Room Air Room Air Documenting provider has reviewed patient's vital signs: yes Labs Labs: Laboratory Results - last 24 hr 11/04/21 11/04/21 10:20 10:20 WBC 6.49 RBC 3.60 L Hgb 11.5 L Hct 35.6 MCV 99 MCH 32 MCHC 32 RDW Coeff of Andi 16.9 H Plt Count 202 Neut % (Auto) 89.7 H Lymph % (Auto) 1.8 L [place] % (Auto) 6.6 Eos % (Auto) 0.9 Baso % (Auto) 0.2 Neut # (Auto) 5.80 Lymph # (Auto) 0.10 L [place] # (Auto) 0.40 Eos # (Auto) 0.06 Baso # (Auto) 0.01 Abs Immat Gran (auto) 0.05 Sodium 135 Potassium 4.4 Chloride 107 Carbon Dioxide 22 BUN 14 Creatinine 0.6 Estimated Creat Clear 37.56 Estimated GFR 91 Glucose 154 H Calcium 7.7 L Total Bilirubin 5.6 H AST 72 H ALT 55 H Alkaline Phosphatase 904 H Total Protein 5.3 L Albumin 2.3 L
--- NOTE | 2021-11-04 18:08 | PC.NURSE ---
End of Shift: Patient pleasant and cooperative. Patient vitally stable, lungs clear, BS WNL, right chest port accessed, intact, and patent. Patient SBA, walker, gb to toilet or commode. Patient denies pain but does have abdominal tenderness with palpation. Patient with little appetite, but tolerating diet, urinating, and had 1 lg soft dull yellow BM. Patient did not tolerate her own medication from home citrocal plus, as they were three large pills she spit up.
[2021-11-04] MEDS: ENOXAPARIN 40 MG/0.4 ML INJ SUBCUT (21:13)
[2021-11-05 03:25] VITALS: BP 107/62; PULSE 92; RESP 18; TEMP 36.8; O2SAT 94
[2021-11-05] MEDS: OMEPRAZOLE 20 MG CAPSULE DR 40 MG PO (06:28)
[2021-11-05] MEDS: LEVOTHYROXINE 75 MCG TABLET PO (06:29)
--- NOTE | 2021-11-05 07:36 | PC.NURSE ---
END OF SHIFT NOTE: PT IS CALM AND COOPERATIVE. PT VERY FATIGUED. VSS AND WNL ON RA. AFEBRILE. DENIES CP, SOB, N/V. PT AMBULATES WITH WALKER, GB, A1/SBA. TOLERATES THIS FAIRLY WELL. PT REQUIRES ASSISTANCE TO STAND.?JAUNDICE APPEARANCE TO SKIN. ORTHOSTATIC BP: SUPINE 130/76 HR76, SITTING 132/81 HR89, STANDING 83/49 HR104. PT ASYMPTOMATIC. ?
[2021-11-05 08:00] VITALS: BP 100/67; PULSE 92; RESP 18; TEMP 36.8; O2SAT 92
[2021-11-05] MEDS: POTASSIUM CHLORIDE 10 MEQ CAPSULE ER 20 MEQ PO (09:26)
[2021-11-05] MEDS: SODIUM CHLORIDE 1 GM TABLET PO (09:26)
[2021-11-05] MEDS: MIDODRINE HCL 5 MG TABLET PO (09:27)
[2021-11-05] MEDS: FLUDROCORTISONE ACETATE 0.1 MG TABLET 0.2 MG PO (09:27)
--- NOTE | 2021-11-05 10:42 | PM.DS1 ---
DS: Providers Provider Date Seen: 11/05/21 Date of admission: 11/03/21 04:09 Primary care physician: Priscila Kelley MD Admitting Clinician: Figueroa Gamez MD Consults: 11/03/21 05:25 Consult to Physical Therapy [CONS] Routine Comment: Reason(s) for PT Consult:: Evaluate and Treat Any Restrictions?:: No Restrictions 11/03/21 05:29 Consult to Occupational Therapy [CONS] Routine Comment: Reason(s) for OT Consult:: Evaluate and Treat Any Restrictions?:: No Restrictions Attending Physician on discharge: Figueroa Gamez MD Date of Discharge: 11/05/21 DS: Diagnosis Discharge Diagnosis (1) Orthostatic hypotension: Status: Acute Problem details: Suspected to be partly due to celiac plexus block done 09/20/2021. Initially on Florinef 0.1 mg daily. Sodium chloride tablets 1 g t.i.d. added. During this hospital stay Florinef was increased to 0.2 mg daily. Midodrine 5 mg b.i.d. also added. 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 Also now with ascites. Patient is still struggling with poor appetite, abdominal bloating and early satiety. (3) Weakness: Status: Acute Problem details: Orthostatic hypotension is compounded by generalized Physical weakness making ambulation and especially climbing stairs very difficult (4) Jaundice: Status: Acute Problem details: Likely due to new metastatic disease in liver (5) Ascites, malignant: Status: Acute DS: Summary Hospital Course Hospital Course: 81-year-old female with metastatic adenocarcinoma of the pancreas admitted to the hospital with progressive orthostatic lightheadedness and weakness. She has had profound orthostatic hypotension. She has been treated as an outpatient with sodium chloride tablets and Florinef. She has also received pyridostigmine. Evaluation at time of her hospital admission showed that she was having progression of her disease with new metastatic lesions in her liver and development of significant ascites. She was treated in the hospital with increasing doses of Florinef now 0.2 mg daily and the addition of midodrine 5 mg b.i.d.. She had some improvement but still is symptomatic. Status at Discharge Functional status at discharge: uses cane/walker Overall status at discharge: patient is back to baseline Time Spent with Patient Time attestation: Total time spent providing and/or coordinating discharge services: Time spent: Greater than 30 minutes Exam Narrative: Exam Narrative: She is alert and appears in no distress. She is oriented to her circumstances. Respirations are clear to auscultation. Cardiovascular: S1, S2, regular rate and rhythm. Abdomen: Bowel sounds are present. Abdomen is somewhat distended. She is nontender. Ascites fluid wave noted. No lower extremity edema. Good peripheral perfusion. Jaundice noted. Const: Vital Signs, click to edit/add: Vital Signs - 24 hr 11/04/21 12:00 11/04/21 15:00 11/04/21 16:00 Temperature 98 F 98.7 F Pulse Rate [Left B rachial] 64 76 76 Respiratory Rate 22 26 H 26 H Blood Pressure [Le ft Arm] 141/70 H 125/84 Pulse Oximetry 96 96 Oxygen Delivery Me thod Room Air Room Air 11/04/21 19:35 11/04/21 23:40 11/04/21 23:40 Temperature 98.8 F 99.6 F Pulse Rate [Left B rachial] 82 85 85 Respiratory Rate 22 18 18 Blood Pressure [Le ft Arm] 136/80 127/72 Pulse Oximetry 93 94 Oxygen Delivery Me thod Room Air Room Air 11/05/21 03:25 11/05/21 08:00 Temperature 98.3 F 98.2 F Pulse Rate [Left B rachial] 92 92 Respiratory Rate 18 18 Blood Pressure [Le ft Arm] 107/62 100/67 Pulse Oximetry 94 92 Oxygen Delivery Me thod Room Air Room Air Documenting provider has reviewed patient's vital signs: yes DS: Data Data Completed and Pending Labs on day of discharge: Labs from last 24 hours 11/04/21 10:20 Sodium 135 Potassium 4.4 Chloride 107 Carbon Dioxide 22 BUN 14 Creatinine 0.6 Estimated Creat Clear 37.56 Estimated GFR 91 Glucose 154 H Calcium 7.7 L Total Bilirubin 5.6 H AST 72 H ALT 55 H Alkaline Phosphatase 904 H Total Protein 5.3 L Albumin 2.3 L Discharge Plan Discharge Disposition: Home, Self-Care Date of Admission: 11/03/21 04:09 Attending Provider on Discharge: Kota Estrada Primary Care Provider: Priscila Kelley Condition: Stable Anticipated Discharge Date/Time: 11/05/21 00:49 Discharge Medications: New midodrine 5 mg Tablet 5 mg PO BID Qty: 60 0RF Continued sodium chloride 1 gram tablet 1,000 mg PO TID Qty: 90 5RF loperamide 2 mg capsule 2 mg PO PRN levothyroxine 75 mcg tablet 75 mcg PO DAILY magnesium oxide 400 mg (241.3 mg magnesium) tablet 1,600 mg PO DAILY calcitriol 0.25 mcg capsule 0.5 mcg PO DAILY nystatin 100,000 unit/mL suspension 5 ml PO QID PRN Label Comments: SWISH AND SPIT 5 ML BY MOUTH FOUR TIMES DAILY NEEDED pantoprazole 40 mg tablet,delayed release (DR/EC) 40 mg PO DAILY vjznbiz-R9-ezsm-copper-marlo [Citracal-D3 Maximum Plus] 325 mg-12.5 mcg -2.75 mg tablet 3 tab PO DAILY potassium chloride 20 mEq tablet extended release 20 meq PO BID Qty: 180 3RF Changed fludrocortisone 0.1 mg tablet 0.2 mg PO QDAY Qty: 90 3RF Discontinued pyridostigmine bromide 60 mg tablet 30 mg PO TID Qty: 45 3RF Discharge Orders: Discharge Order (Routine); Ordered 11/05/21 Ordered By: Kota Estrada Follow Up Appointments: Priscila Kelley MD [Primary Care Provider] - Forms: [email or web address] Info Instructions
[2021-11-05] MEDS: HEPARIN 500 UNIT/5 ML SYRINGE IVF (11:47)
--- NOTE | 2021-11-05 13:56 | PC.NURSE ---
shift note: vss stable. pt up 1/sba. Pt a&o x3. pt slightly jaundice in complexion. LS clr. pt denies pain. saline flushed and heparinized port prior to disengaging tobias needle. Reviewed dc instructions and sent copies with pt at dc. reviewed belongings and sent all belongings home with pt.
== END 2021-11-05 12:04 | disposition home or self-care (01) ==
LOC: ED 11-03 03:40 → MEDSURG 11-03 14:28
PROVIDERS: Family Medicine; Admitting Provider Family Medicine; Emergency Provider Family Medicine; PCP Internal Medicine; Visit Provider Family Medicine
DX: C77.2 Secondary and unspecified malignant neoplasm of intra-abdominal lymph nodes (principal); R17 Unspecified jaundice; C25.9 Malignant neoplasm of pancreas, unspecified; I95.1 Orthostatic hypotension; R53.1 Weakness; R18.0 Malignant ascites; Z51.5 Encounter for palliative care; R14.0 Abdominal distension (gaseous); Z66 Do not resuscitate; E80.6 Other disorders of bilirubin metabolism; H15.89 Other disorders of sclera; R10.819 Abdominal tenderness, unspecified site
CPT/HCPCS: 36415; 71260; 74177; 80048; 80053; 80076; 83690; 83735; 84443; 85025; 87426; 87635; 96360; 96361; 96372; 97162; 97165; 97535; 99284; A9270; G0378; G0379; J1642; J1650; J7030; Q9967; S0169

== ENCOUNTER 2021-11-08 09:43 | Outpatient (RCR) | payer MEDICARE, OTHER, SELFPAY | END 2021-11-30 23:59 | disposition home or self-care (01) | LOC: CCIC 09:43 | PROVIDERS: PCP Internal Medicine; Visit Provider Internal Medicine Medical Oncology | DX: C25.9 Malignant neoplasm of pancreas, unspecified (principal); C77.2 Secondary and unspecified malignant neoplasm of intra-abdominal lymph nodes; E87.6 Hypokalemia | CPT/HCPCS: 99212; 99215 ==